=== PATIENT | male | born 1950 | race Caucasian/White ===

== ENCOUNTER 2023-06-20 08:00 | Outpatient (OUT) | payer MEDICARE, SELFPAY ==
--- NOTE | 2023-06-20 08:10 | CT_ITS ---
[address] [address] Patient Name: CHAR ALATORRE MRN: [id number] date: 1950 Sex: M Assigned Patient Location: CT Current Patient Location: CT Accession/Order Number: [id number] Exam Date: 06/20/2023 08:19 Report Date: 06/20/2023 15:13 At the request of: JUSTIN MARTINEZ Procedure: CT lung screening low-dose EXAMINATION: CT lung screening low-dose HISTORY: History Of Smoking Z87.891 COMPARISON: No relevant comparison available. TECHNIQUE: Axial, Coronal, and Sagittal images were created without the administration of IV contrast material. Dose reduction techniques were achieved by using automated exposure control and/or adjustment of mA and/or kV according to patient size and/or use of iterative reconstruction technique. FINDINGS: LUNGS: Mild paraseptal emphysema with an apical predominance. No bronchiectasis or peribronchial thickening. Linear opacities in both apices left greater than right, pleural parenchymal scarring is favored. No significant pulmonary nodule or mass PLEURA: No mass, effusion, or pneumothorax. VASCULATURE: No abnormality. STEPHANIE: No mass or pathologic adenopathy. MEDIASTINUM: No mass or pathologic adenopathy. CARDIAC: No enlargement or pericardial effusion. Heavy coronary atherosclerosis AORTA: No aortic aneurysm. Extensive atherosclerosis CHEST WALL: No mass or axillary adenopathy BONES: No bone lesion or fracture. LIMITED ABDOMEN: Surgical clips from cholecystectomy OTHER: Negative. CT/CT lung screening low-dose IMPRESSION: LUNG SCREENING: Lung-RADS Category 1 Negative. No nodules and definitely benign nodules. Continue annual screening with LDCT in 12 months. Electronically authenticated by: JOSH BLANDON Date: 06/20/2023 15:13
== END 2023-06-20 08:01 | disposition home or self-care (01) ==
LOC: CT 08:00
PROVIDERS: PCP Family Medicine; Visit Provider Family Medicine
DX: Z87.891 Personal history of nicotine dependence (principal)
CPT/HCPCS: 71271

== ENCOUNTER 2024-05-11 11:48 | Inpatient (IN) | payer MEDICARE, SELFPAY ==
[2024-05-11] VITALS (26 sets, daily range): BP systolic 122–148; BP diastolic 83–105; PULSE 88–98; TEMP 36.6–36.8; O2SAT 88–95; BMI 27.3; BMI 27.2
--- NOTE | 2024-05-11 12:14 | XR_ITS ---
The [address] [address] Patient Name: CHAR ALATORRE MRN: [id number] date: 1950 Sex: M Assigned Patient Location: ER Current Patient Location: ER Accession/Order Number: [id number] Exam Date: 05/11/2024 12:33 Report Date: 05/11/2024 14:11 At the request of: ABELARDO FIORE Procedure: XR chest 1V EXAM: XR chest 1V HISTORY: SOB COMPARISON: CTA chest 05/11/2024. Chest x-ray 01/13/2020 and earlier. TECHNIQUE: AP portable upright chest x-ray. FINDINGS: Cardiomegaly. Groundglass lung density and prominent markings with pleural effusions as seen on chest CT, correlate for mild CHF. No focal consolidation. XR/XR chest 1V IMPRESSION: Abnormal findings suggest mild CHF, see CT chest report. New from previous chest x-ray. Electronically authenticated by: ROGE KHAN Date: 05/11/2024 14:11
--- NOTE | 2024-05-11 12:14 | ECG_ITS ---
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
--- NOTE | 2024-05-11 12:14 | ED.SOB1 ---
HPI - SOB/Dyspnea General Chief Complaint: Shortness of Breath/Dyspnea Stated Complaint: sob dizziness Time Seen by Provider: 05/11/24 12:00 Source: patient Mode of arrival: walk-in Limitations: no limitations History of Present Illness HPI Narrative: 73-year-old male presents to the emergency department for shortness of breath. This appears to be an ongoing issue for the past 6 months and that he appears to have an element of COPD. However for the past 2 days its gotten worse. He does not complain of chest pain or fever. He has a cough but that is chronic. He quit smoking in 2014. He is accompanied by his who is a nurse and gives an excellent history. He gets more short of breath with exertion. Related Data Home Medications ?Medication ?Instructions ?Recorded ?Confirmed amlodipine 10 mg tablet 5 mg PO DAILY 05/11/24 05/11/24 apixaban 5 mg tablet (Eliquis) 5 mg PO BID 05/11/24 05/11/24 aspirin 81 mg capsule 81 mg PO DAILY 05/11/24 05/11/24 atorvastatin 40 mg tablet 40 mg PO DAILY 05/11/24 05/11/24 nortriptyline 25 mg capsule 25 mg PO DAILY 05/11/24 05/11/24 spironolactone 25 mg tablet 25 mg PO DAILY 05/11/24 05/11/24 Allergies Allergy/AdvReac Type Severity Reaction Status Date / Time No Known Drug Allergies Allergy Verified 05/11/24 12:03 Review of Systems ROS Narrative A ten point review of systems is negative except as noted above. Exam Narrative Exam Narrative: Nurses note and vital signs reviewed and patient is not hypoxic. General: The patient appears in no apparent distress. Patient is resting comfortably on cart. Skin: Warm, dry, no pallor noted. There is no rash noted. Head: Normocephalic, atraumatic Eye: Normal conjunctiva, no drainage Ears, Nose, Mouth, and Throat: oral mucosa is moist. Nares patent. Cardiovascular: Regular Rate and Rhythm, not tachycardic Respiratory: Patient is in no distress, no accessory muscle use, lungs are clear to auscultation, no wheezing, rales or rhonchi. Good air movement present. Back: non-tender GI: Soft and nontender Musculoskeletal: The patient has no evidence of calf tenderness, no pitting edema, symmetrical pulses noted bilaterally Neurological: A&O, normal speech Psychiatric: Cooperative Constitutional Vital Signs, click to edit/add: Last Vital Signs Temp 98.2 F 05/11/24 11:57 Pulse 90 05/11/24 14:00 Resp 17 05/11/24 14:00 BP 145/97 H 05/11/24 13:30 Pulse Ox 95 05/11/24 14:00 O2 Del Method Room Air 05/11/24 12:19 Course Vital Signs Vital signs: Vital Signs Temperature 98.2 F 05/11/24 11:57 Pulse Rate 98 H 05/11/24 11:57 Respiratory Rate 18 05/11/24 11:57 Blood Pressure 139/92 H 05/11/24 11:57 Pulse Oximetry 95 05/11/24 11:57 Oxygen Delivery Method Room Air 05/11/24 11:57 Temperature 98.2 F 05/11/24 11:57 Pulse Rate 90 05/11/24 14:00 Respiratory Rate 17 05/11/24 14:00 Blood Pressure 145/97 H 05/11/24 13:30 Pulse Oximetry 95 05/11/24 14:00 Oxygen Delivery Method Room Air 05/11/24 12:19 MDM - SOB/Dyspnea MDM Narrative Medical decision making narrative: D-dimer was slightly elevated and CTA shows no PE but shows CHF. The initial troponin was 79, repeat 76. This is likely due to his renal function. He was given IV Lasix and is being admitted. Treatment diagnosis and disposition were discussed with the patient and his . Differential Diagnosis Differential diagnosis: Likely acute exacerbation of chronic obstructive airways disease, congestive heart failure, community acquired pneumonia and pulmonary embolism Lab Data Attestation: I reviewed the patient's lab results. Labs: Lab Results 05/11/24 05/11/24 05/11/24 Range/Units 12:11 12:28 13:10 WBC 7.5 (4.0-11.0) 10^3/uL RBC 4.79 (4.70-6.10) 10^6/uL Hgb 13.0 L (14.0-18.0) g/dL Hct 39.8 L (42.0-54.0) % MCV 83.1 (80.0-94.0) fL MCH 27.1 (25.9-34.0) pg MCHC 32.7 (29.9-35.2) g/dL RDW 13.8 (11.0-15.0) % Plt Count 249 (150-450) 10^3/uL MPV 9.1 L (9.5-13.5) fL Neut % (Auto) 63.0 (43.0-75.0) % Lymph % (Auto) 24.9 (20.5-60.0) % [place] % (Auto) 10.0 (1.7-12.0) % Eos % (Auto) 0.7 L (0.9-7.0) % Baso % (Auto) 0.9 (0.2-2.0) % Neut # (Auto) 4.7 (1.4-6.5) 10^3/uL Lymph # (Auto) 1.9 (1.2-3.8) 10^3/uL [place] # (Auto) 0.8 (0.3-0.8) 10^3/uL Eos # (Auto) 0.1 (0.0-0.7) 10^3/uL Baso # (Auto) 0.1 (0.0-0.1) 10^3/uL Abs Immat Gran (auto) 0.04 H (0.00-0.03) 10^3/uL Imm/Tot Granulo (auto) 0.5 (0.0-0.5) % D-Dimer 1.55 H* (<=0.59) mg/L FEU Sodium 137 (136-145) mmol/L Potassium 4.3 (3.5-5.1) mmol/L Chloride 102 (98-107) mmol/L Carbon Dioxide 27.6 (21.0-32.0) mmol/L Anion Gap 11.7 BUN 17.0 (7.0-18.0) mg/dL Creatinine 1.88 H (0.70-1.30) mg/dL Est GFR ( Amer) 43 L (>=60) Est GFR (Non-Af Amer) 35 L (>=60) BUN/Creatinine Ratio 9.0 Glucose 113 H (74-106) mg/dL Calcium 9.9 (8.5-10.1) mg/dL Troponin I High Sens 79.5 H* 76.5 H* (4.0-76.1) pg/mL SARS-CoV-2 Ag (CV2AG) Negative (NEGATIVE) Imaging Data Chest x-ray: Radiologist's impression: ITS Impressions Chest X-Ray 05/11/24 12:14 IMPRESSION: Abnormal findings suggest mild CHF, see CT chest report. New from previous chest x-ray. Electronically authenticated by: ROGE KHAN Date: 05/11/2024 14:11 Chest CTA 05/11/24 12:56 IMPRESSION: 1. Negative for pulmonary embolus. Normal pulmonary outflow tract. No evidence of right ventricular strain.. 2. Interstitial lung density bilateral, moderate bilateral pleural effusions suggestive of edema and CHF. Correlate clinically. 3. Mildly prominent mediastinal lymph nodes appear unchanged likely incidental. 4. Moderate to severe plaque and stenosis great vessels off the arch most significant involvement left subclavian artery. Warrants follow-up imaging, consider CTA carotid study upper chest and neck to evaluate the carotid arteries and arch. 5. 1 cm left thyroid nodule which could be evaluated as an outpatient with ultrasound if felt to be indicated. Electronically authenticated by: ROGE KHAN Date: 05/11/2024 14:10 ECG Data Attestation: I personally reviewed and interpreted this ECG as follows: (EKG on my interpretation shows normal sinus rhythm with a rate of 94) Critical Care Time Critical Care Time Critical Care Time: Yes Total Critical Care Time: 35 Attestation: Due to the high probability of sudden and clinically significant deterioration in the patient's condition he/she required the highest level of my preparedness to intervene urgently I provided critical care time including documentation time, medication orders and management, reevaluation, vital sign assessment, ordering and reviewing of lab tests, ordering and reviewing of x-ray studies, and admission orders. Aggregate critical care time is 35 minutes including only time during which I was engaged in work directly related to his/her care and did not include time spent treating other patients simultaneously. Discharge Plan Discharge Chief Complaint: Shortness of Breath/Dyspnea Clinical Impression: Congestive heart failure Patient Disposition: Admitted As Inpatient Time of Disposition Decision: 14:36 Condition: Fair
[2024-05-11 12:30] LABS: Basophils Absolute Auto 0.1 10^3/uL (0.0-0.1); Basophils Percent Auto 0.9 % (0.2-2.0); Eosinophils Absolute Auto 0.1 10^3/uL (0.0-0.7); Eosinophils Percent Auto 0.7 % (0.9-7.0); Hematocrit 39.8 % (42.0-54.0); Immature Granulocytes Abs Auto 0.04 10^3/uL (0.00-0.03); Immature Granulocytes Pct Auto 0.5 % (0.0-0.5); Lymphocytes Absolute Auto 1.9 10^3/uL (1.2-3.8); Lymphocytes Percent Auto 24.9 % (20.5-60.0); Mean Corpuscular HGB Conc 32.7 g/dL (29.9-35.2); Mean Corpuscular Hemoglobin 27.1 pg (25.9-34.0); Mean Corpuscular Volume 83.1 fL (80.0-94.0); Mean Platelet Volume 9.1 fL (9.5-13.5); Monocytes Absolute Auto 0.8 10^3/uL (0.3-0.8); Neutrophils Absolute Auto 4.7 10^3/uL (1.4-6.5); Platelet Count 249 10^3/uL (150-450); Red Blood Count 4.79 10^6/uL (4.70-6.10); Red Cell Distribution Width 13.8 % (11.0-15.0); White Blood Count 7.5 10^3/uL (4.0-11.0)
[2024-05-11 12:42] LABS: Anion Gap 11.7; Calcium 9.9 mg/dL (8.5-10.1); Carbon Dioxide 27.6 mmol/L (21.0-32.0); Chloride 102 mmol/L (98-107); Estimated GFR (African America 43 (>=60); Estimated GFR (Non-African Ame 35 (>=60); Glucose 113 mg/dL (74-106); Potassium 4.3 mmol/L (3.5-5.1); Sodium 137 mmol/L (136-145)
[2024-05-11 12:47] LABS: Internal Control Within Normal Limits; SARS-CoV-2 Ag NEGATIVE (NEGATIVE)
[2024-05-11 12:51] LABS: D Dimer 1.55 mg/L FEU (<=0.59); Troponin I High Sensitivity 79.5 pg/mL (4.0-76.1)
--- NOTE | 2024-05-11 12:56 | CT_ITS ---
The [address] [address] Patient Name: CHAR ALATORRE MRN: [id number] date: 1950 Sex: M Assigned Patient Location: ER Current Patient Location: ER Accession/Order Number: [id number] Exam Date: 05/11/2024 13:17 Report Date: 05/11/2024 14:10 At the request of: ABELARDO FIORE Procedure: CT angio chest EXAM: CT angio chest HISTORY: Short of breath, elevated D-dimer clinical suspicion of pulmonary embolus. COMPARISON: Chest x-ray 05/11/[address] chest noncontrast 06/20/2023. TECHNIQUE: CTA chest PE protocol. Axial scans with multiplanar and MIP reformatted images. Individualized dose reduction used for this exam. Contrast: 100 mL Visipaque [id number] FINDINGS: Pulmonary arteries: Normal pulmonary arteries enhance without thrombus or embolus. Normal sized pulmonary artery. Lungs/pleura: Groundglass density and septal thickening consistent with interstitial process. Moderate size pleural effusion. Suspect edema from CHF, cannot exclude interstitial pneumonitis. Small amount of atelectasis right lung base adjacent to the pleural effusion. Cardiac/vascular: Mild cardiomegaly. No evidence of right ventricular enlargement. Minimal pericardial thickening or trace pericardial effusion.. Normal size ascending aorta without dissection or aneurysm. Possible aortic valve calcification. Dominant distal descending epigastric abdominal aorta. Mild aortic plaque.. Moderate to severe plaque origin right innominate artery and left common carotid artery off the arch. Severe stenosis left subclavian artery beyond the origin. These findings warrant follow-up imaging. Mediastinum: Mildly prominent lymph nodes are nonspecific anterior mediastinal lymph nodes are similar to CT 06/20/2023. Nonenhancing tissue right hilum may be reactive. No supraclavicular adenopathy. 1 cm left thyroid nodule. No axillary mass or adenopathy. No acute process upper abdomen. CT/CT angio chest IMPRESSION: 1. Negative for pulmonary embolus. Normal pulmonary outflow tract. No evidence of right ventricular strain.. 2. Interstitial lung density bilateral, moderate bilateral pleural effusions suggestive of edema and CHF. Correlate clinically. 3. Mildly prominent mediastinal lymph nodes appear unchanged likely incidental. 4. Moderate to severe plaque and stenosis great vessels off the arch most significant involvement left subclavian artery. Warrants follow-up imaging, consider CTA carotid study upper chest and neck to evaluate the carotid arteries and arch. 5. 1 cm left thyroid nodule which could be evaluated as an outpatient with ultrasound if felt to be indicated. Electronically authenticated by: ROGE KHAN Date: 05/11/2024 14:10
[2024-05-11] MEDS: 0.9 % SODIUM CHLORIDE 1,000 ML 200 ML IV (13:10)
[2024-05-11 13:41] LABS: Troponin I High Sensitivity 76.5 pg/mL (4.0-76.1)
[2024-05-11] MEDS: FUROSEMIDE 40 MG/4 ML VIAL IVP ×2 (14:39→20:22)
--- NOTE | 2024-05-11 15:55 | CA_ITS ---
Patient Name: CHAR ALATORRE MR#: [id number] : 1950 Exam Date: 05/13/2024 Ordering Doctor: DR Rajesh Aggarwal . ECHOCARDIOGRAM REPORT PROCEDURE: CA ECHO DOPPLER COMPLETE INDICATIONS: Dyspnea COMPARISON: None. DESCRIPTION: COMPLETE ECHOCARDIOGRAM Real-time transthoracic echocardiography with 2D, M-mode, spectral and color flow Doppler performed. QUALITY: Technical quality was good. LEFT VENTRICLE: Normal chamber size. Mild left ventricular hypertrophy. LV EF: Global left ventricular systolic function is moderately reduced; visually estimated ejection fraction is 35 to 40%. Diffuse hypokinesis. DIASTOLIC: Grade 2 diastolic dysfunction. ATRIAL SEPTUM: Inadequately seen LEFT ATRIUM: Mild dilatation. RIGHT ATRIUM: Normal chamber size. RIGHT VENTRICLE: Normal chamber size. Normal right ventricular systolic function. TRICUSPID VALVE: Normal mobility and thickness. No stenosis with trivial regurgitation. Mild pulmonary hypertension.RVSP 35mmHg MITRAL VALVE: Normal mobility and thickness. No evidence of mitral valve stenosis. There is no mitral annular calcification. Mild mitral regurgitation. AORTIC VALVE: Bicuspid appearance. Moderately calcified aortic valve. Moderately diminished mobility. Doppler velocity suggests mild to moderate aortic valve stenosis. DVI 0.4, MARKY 1.5cm2, Vmax 2.7m/s, Mean gradient 14mmHg. Moderate aortic regurgitation. AORTIC ROOT: Normal diameter and appearance. Mild dilatation of the ascending aorta measuring 3.7cm. PULMONIC VALVE: Normal thickness and mobility. No stenosis. Mild regurgitation. PERICARDIUM: Anterior free space; probable small effusion with clotted material. IVC: Collapses with inspirations. Normal size. CONCLUSION: 1. Global left ventricular systolic function is moderately reduced; visually estimated ejection fraction of 35 to 40% 2. Normal right ventricular size and systolic function 3. Left atrium is mildly dilated 4. Grade 2 diastolic dysfunction 5. Mild left ventricular hypertrophy 6. Mildly increased right ventricular systolic pressure; RVSP 35 mmHg 7. Mild mitral regurgitation 8. Mild to moderate aortic valve stenosis 9. Moderate aortic valve regurgitation 10. Mild pulmonic regurgitation 11. Mildly dilated ascending aorta 12. Small anterior pericardial effusion with clotted material Adult Echocardiography Procedure Report Left Ventricle LVEDD (3.7 - 5.6 cm): 4.94 cm LVESD (2.2 - 4.0 cm): 4.07 cm LVIVS thickness (0.6 - 1.2 cm): 1.11 cm LVPW thickness (0.5 - 1.0 cm): 1.18 cm e': 0.06 m/s E - e': 11.71 LVOT Max Gradient: 4.04 mm[Hg] LVOT Area (cm2): 1.00 m/s Peak Velocity (LVOT): 1.00 m/s Mean Velocity (LVOT): 0.65 m/s LVOT Diameter 2.16 cm Left Ventricular Ejection Fraction: 44.45 % Left Atrium LA Volume Index (2D A2C): 43.91 ml/m2 Left Atrium Systolic Dimension: 3.83 cm Mitral Valve MV E to A Ratio: 0.72 Mitral Valve A-Wave Peak Velocity: 1.03 m/s Mitral Valve E-Wave Peak Velocity: 0.74 m/s Right Ventricle RV Internal Diastolic Dimension: 2.75 cm Aorta AO Root Diam: 3.51 cm Ascending Ao Diam: 3.72 cm Aortic Valve AoV Area (Peak Dany): 1.49 cm2, 1.54 cm2, 0.97 cm2, 0.97 cm2 AoV Area (VTI): 1.60 cm2, 1.68 cm2 Deceleration [place]: 7.16 m/s2, 5.69 m/s2, 5.29 m/s2 Pressure Half-Time: 211.26 ms, 252.50 ms, 251.92 ms Peak Velocity(Antegrade Flow): 2.40 m/s, 2.36 m/s, 2.68 m/s, 3.82 m/s Peak Gradient(Antegrade Flow): 23.08 mm[Hg], 22.33 mm[Hg], 28.67 mm[Hg], 58.31 mm[Hg] Mean Velocity(Antegrade Flow): 1.57 m/s, 1.60 m/s, 1.77 m/s Mean Gradient(Antegrade Flow): 11.47 mm[Hg], 11.73 mm[Hg], 14.39 mm[Hg] Velocity Time Integral: 44.28 cm, 45.24 cm, 49.57 cm Tricuspid Valve Peak Velocity (Regurgitant Flow): 2.84 m/s, 2.80 m/s Pulmonic Valve Mean Gradient: 1.85 mm[Hg] Mean Velocity: 0.62 m/s Peak Velocity: 1.05 m/s, 1.03 m/s Peak Gradient: 4.26 mm[Hg], 4.39 mm[Hg] Right Atrium Right Atrium Systolic Pressure: 31.39 ml, 31.39 ml Dictated by: Alejandro Moncada M.D. on 05/13/2024 at 14:35 Approved by: Alejandro Moncada M.D. on 05/13/2024 at 14:42
[2024-05-11 16:27] LABS: Magnesium 1.7 mg/dL (1.8-2.4)
[2024-05-11 16:43] LABS: Thyroid Stimulating Hormone 2.625 uIU/mL (0.358-3.740)
[2024-05-11 16:48] LABS: Troponin I High Sensitivity 82.5 pg/mL (4.0-76.1)
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
[2024-05-11] MEDS: ISOSORBIDE MONONITRATE 30 MG TAB.ER.24H PO (20:22)
[2024-05-11] MEDS: MAGNESIUM OXIDE 400 MG TABLET PO ×2 (20:22→22:28)
[2024-05-11] MEDS: APIXABAN 5 MG TABLET PO (20:22)
[2024-05-11] MEDS: HYOSCYAMINE SULFATE 0.125 MG TAB.SUBL SL (20:22)
[2024-05-11 20:24] LABS: Glucometer 157 mg/dL (74-106)
[2024-05-11] MEDS: IPRATROPIUM/ALBUTEROL SULFATE 3 ML AMPUL.NEB IH (21:02)
[2024-05-11] MEDS: BUDESONIDE 0.5 MG/2 ML AMPULE NEB IH (21:02)
[2024-05-12] VITALS (9 sets, daily range): BP systolic 95–124; BP diastolic 62–79; PULSE 85–97; TEMP 36.4–37.1; O2SAT 90–95
[2024-05-12] MEDS: ACETAMINOPHEN 500 MG TABLET 1000 MG PO ×2 (04:37→12:13)
[2024-05-12] MEDS: IPRATROPIUM/ALBUTEROL SULFATE 3 ML AMPUL.NEB IH ×2 (04:39→11:10)
[2024-05-12 07:57] LABS: Basophils Percent Auto 0.5 % (0.2-2.0); Eosinophils Absolute Auto 0.1 10^3/uL (0.0-0.7); Eosinophils Percent Auto 0.8 % (0.9-7.0); Hematocrit 34.3 % (42.0-54.0); Hemoglobin 11.3 g/dL (14.0-18.0); Immature Granulocytes Abs Auto 0.03 10^3/uL (0.00-0.03); Immature Granulocytes Pct Auto 0.5 % (0.0-0.5); Lymphocytes Absolute Auto 1.3 10^3/uL (1.2-3.8); Lymphocytes Percent Auto 22.6 % (20.5-60.0); Mean Corpuscular HGB Conc 32.9 g/dL (29.9-35.2); Mean Corpuscular Hemoglobin 27.3 pg (25.9-34.0); Mean Corpuscular Volume 82.9 fL (80.0-94.0); Mean Platelet Volume 9.1 fL (9.5-13.5); Monocytes Absolute Auto 0.7 10^3/uL (0.3-0.8); Monocytes Percent Auto 12.5 % (1.7-12.0); Neutrophils Absolute Auto 3.7 10^3/uL (1.4-6.5); Neutrophils Percent Auto 63.1 % (43.0-75.0); Platelet Count 205 10^3/uL (150-450); Red Blood Count 4.14 10^6/uL (4.70-6.10); Red Cell Distribution Width 13.8 % (11.0-15.0); White Blood Count 5.9 10^3/uL (4.0-11.0)
[2024-05-12 08:15] LABS: Alanine Aminotransferase 14 U/L (16-63); Albumin Globulin Ratio 0.7; Albumin Level 2.7 g/dL (3.4-5.0); Alkaline Phosphatase 119 U/L (46-116); Anion Gap 12.7; Aspartate Amino Transferase 18 U/L (15-37); BUN Creatinine Ratio 9.5; Bilirubin Total 0.8 mg/dL (0.2-1.0); Calcium 9.2 mg/dL (8.5-10.1); Carbon Dioxide 28.1 mmol/L (21.0-32.0); Chloride 102 mmol/L (98-107); Estimated GFR (African America 36 (>=60); Estimated GFR (Non-African Ame 29 (>=60); Globulin 3.7 g/dL; Glucose 111 mg/dL (74-106); Potassium 3.8 mmol/L (3.5-5.1); Sodium 139 mmol/L (136-145); Total Protein 6.4 g/dL (6.4-8.2); Troponin I High Sensitivity 75.7 pg/mL (4.0-76.1)
[2024-05-12] MEDS: SPIRONOLACTONE 25 MG TABLET PO (08:51)
[2024-05-12] MEDS: ISOSORBIDE MONONITRATE 30 MG TAB.ER.24H PO (08:51)
[2024-05-12] MEDS: ASPIRIN 81 MG TABLET.DR PO (08:51)
[2024-05-12] MEDS: ATORVASTATIN CALCIUM 40 MG TABLET PO (08:51)
[2024-05-12] MEDS: CHOLECALCIFEROL (VITAMIN D3) 25 MCG/1,000 UNITS TABLET 50 MCG PO (08:51)
[2024-05-12] MEDS: AMLODIPINE BESYLATE 5 MG TABLET PO (08:51)
[2024-05-12] MEDS: MAGNESIUM OXIDE 400 MG TABLET PO ×2 (08:51→21:04)
[2024-05-12] MEDS: APIXABAN 5 MG TABLET PO ×2 (08:51→21:04)
--- NOTE | 2024-05-12 11:59 | XR_ITS ---
The [address] [address] Patient Name: CHAR ALATORRE MRN: [id number] date: 1950 Sex: M Assigned Patient Location: [place] Current Patient Location: [place] Accession/Order Number: [id number] Exam Date: 05/12/2024 12:50 Report Date: 05/13/2024 06:55 At the request of: SHAIKH RAUL Procedure: XR chest 1V EXAMINATION: XR chest 1V HISTORY: CHF COMPARISON: XR chest 05/11/2024 FINDINGS: LUNGS: No significant pulmonary parenchymal abnormalities. VASCULATURE: No increased pulmonary vasculature. PLEURA: No pneumothorax, effusion, or pleural thickening. CARDIAC: No cardiomegaly or cardiac silhouette abnormality. MEDIASTINUM: No visible mass or adenopathy. BONES: No fracture or visible bone lesion. OTHER: Negative. XR/XR chest 1V IMPRESSION: 1. No acute cardiac pulmonary process. Clearing of previously seen infiltrates. Electronically authenticated by: ARTI MALCOLM Date: 05/13/2024 06:55
--- NOTE | 2024-05-12 12:00 | P.IMPN_ITS ---
Progress Note: A&P Assessment and Plan (1) Congestive heart failure: Assessment and Plan: Most recent ECHO 01/06 - mild diastolic dysfunction. Repeat ECHO ordered. Started on lasix 40 q12, still volume overload. Monitor I/O, daily weight. Qualifiers: Heart failure type: diastolic Heart failure chronicity: acute on chronic Qualified Code(s): I50.33 - Acute on chronic diastolic (congestive) heart failure (2) Hypertension: Assessment and Plan: At goal. C/w amlodipine. Qualifiers: Hypertension type: primary hypertension Qualified Code(s): I10 - Essential (primary) hypertension (3) COPD (chronic obstructive pulmonary disease): Assessment and Plan: C/w kirstin schreiber as needed Qualifiers: COPD type: unspecified COPD Qualified Code(s): J44.9 - Chronic obstructive pulmonary disease, unspecified (4) PVD (peripheral vascular disease): Assessment and Plan: C/w ASA, eliquis. C/w statin (5) CKD (chronic kidney disease) stage 4, GFR 15-29 ml/min: Assessment and Plan: Serum cr at baseline. Monitor. (6) High cholesterol: Assessment and Plan: C/w lipitor. Internal Medicine - PN: Subj Subjective Interval history: Seen and examined. Feels better but still has considerable exertional shortness of breath. Good UO on lasix. Exam Constitutional Vital Signs, click to edit/add: Last Vital Signs Temp 97.9 F 05/12/24 08:00 Pulse 85 05/12/24 08:00 Resp 18 05/12/24 11:12 BP 124/79 05/12/24 08:00 Pulse Ox 91 L 05/12/24 08:00 O2 Del Method Room Air 05/12/24 11:12 Documenting provider has reviewed patient's vital signs: yes Common normals: no apparent distress and oriented x3 General appearance: cooperative Respiratory Common normals: normal respiratory effort and clear to auscultation bilaterally Effort & inspection: able to speak in complete sentences Auscultation: clear to auscultation bilaterally Cardio Common normals: regular rate, S1 normal heart sound and S2 normal heart sound Rate: regular rate Heart sounds: S1 normal and S2 normal Extremity Common normals: no clubbing, cyanosis or edema Neuro Common normals: oriented x3, moves all extremities and no focal motor deficits Psych Common normals: mental status grossly normal, denies hallucinations, denies homicidal ideation and denies suicidal ideation Internal Medicine - PN: Obj Da Labs Labs: Laboratory Results - last 24 hr 05/11/24 05/11/24 05/11/24 12:11 12:28 13:10 WBC 7.5 RBC 4.79 Hgb 13.0 L Hct 39.8 L MCV 83.1 MCH 27.1 MCHC 32.7 RDW 13.8 Plt Count 249 MPV 9.1 L Neut % (Auto) 63.0 Lymph % (Auto) 24.9 [place] % (Auto) 10.0 Eos % (Auto) 0.7 L Baso % (Auto) 0.9 Neut # (Auto) 4.7 Lymph # (Auto) 1.9 [place] # (Auto) 0.8 Eos # (Auto) 0.1 Baso # (Auto) 0.1 Abs Immat Gran (auto) 0.04 H Imm/Tot Granulo (auto) 0.5 D-Dimer 1.55 H* Sodium 137 Potassium 4.3 Chloride 102 Carbon Dioxide 27.6 Anion Gap 11.7 BUN 17.0 Creatinine 1.88 H Est GFR ( Amer) 43 L Est GFR (Non-Af Amer) 35 L BUN/Creatinine Ratio 9.0 Glucose 113 H Calcium 9.9 Magnesium Total Bilirubin AST ALT Alkaline Phosphatase Troponin I High Sens 79.5 H* 76.5 H* NT-Pro-B Natriuret Pep Total Protein Albumin Globulin Albumin/Globulin Ratio TSH SARS-CoV-2 Ag (CV2AG) Negative POC Glucose 05/11/24 05/11/24 05/11/24 16:10 19:53 20:21 WBC RBC Hgb Hct MCV MCH MCHC RDW Plt Count MPV Neut % (Auto) Lymph % (Auto) [place] % (Auto) Eos % (Auto) Baso % (Auto) Neut # (Auto) Lymph # (Auto) [place] # (Auto) Eos # (Auto) Baso # (Auto) Abs Immat Gran (auto) Imm/Tot Granulo (auto) D-Dimer Sodium Potassium Chloride Carbon Dioxide Anion Gap BUN Creatinine Est GFR ( Amer) Est GFR (Non-Af Amer) BUN/Creatinine Ratio Glucose Calcium Magnesium 1.7 L Total Bilirubin AST ALT Alkaline Phosphatase Troponin I High Sens 82.5 H* 81.0 H* NT-Pro-B Natriuret Pep 9902.0 H* Total Protein Albumin Globulin Albumin/Globulin Ratio TSH 2.625 SARS-CoV-2 Ag (CV2AG) POC Glucose 157 H 05/12/24 07:30 WBC 5.9 RBC 4.14 L Hgb 11.3 L Hct 34.3 L MCV 82.9 MCH 27.3 MCHC 32.9 RDW 13.8 Plt Count 205 MPV 9.1 L Neut % (Auto) 63.1 Lymph % (Auto) 22.6 [place] % (Auto) 12.5 H Eos % (Auto) 0.8 L Baso % (Auto) 0.5 Neut # (Auto) 3.7 Lymph # (Auto) 1.3 [place] # (Auto) 0.7 Eos # (Auto) 0.1 Baso # (Auto) 0.0 Abs Immat Gran (auto) 0.03 Imm/Tot Granulo (auto) 0.5 D-Dimer Sodium 139 Potassium 3.8 Chloride 102 Carbon Dioxide 28.1 Anion Gap 12.7 BUN 21.0 H Creatinine 2.22 H Est GFR ( Amer) 36 L Est GFR (Non-Af Amer) 29 L BUN/Creatinine Ratio 9.5 Glucose 111 H Calcium 9.2 Magnesium 2.0 Total Bilirubin 0.8 AST 18 ALT 14 L Alkaline Phosphatase 119 H Troponin I High Sens 75.7 NT-Pro-B Natriuret Pep 8420.0 H* Total Protein 6.4 Albumin 2.7 L Globulin 3.7 Albumin/Globulin Ratio 0.7 TSH SARS-CoV-2 Ag (CV2AG) POC Glucose
[2024-05-12] MEDS: FUROSEMIDE 40 MG/4 ML VIAL IVP (12:13)
[2024-05-12] MEDS: NORTRIPTYLINE HCL 25 MG CAPSULE 50 MG PO (21:04)
[2024-05-13] VITALS (7 sets, daily range): BP systolic 118–135; BP diastolic 74–83; PULSE 87–100; TEMP 36.7–37; O2SAT 90–93
[2024-05-13] MEDS: FUROSEMIDE 40 MG/4 ML VIAL IVP ×2 (04:34→15:28)
[2024-05-13 04:50] LABS: Bilirubin Urine NEGATIVE (NEGATIVE); Blood Urine NEGATIVE (NEGATIVE); Clarity Urine CLEAR (CLEAR); Color Urine LT. YELLOW (YELLOW); Glucose Urine UA NEGATIVE (NEGATIVE); Ketones Urine NEGATIVE (NEGATIVE); Leukocyte Esterase Urine NEGATIVE (NEGATIVE); Nitrite Urine NEGATIVE (NEGATIVE); Protein Urine >=300 mg/dL (NEG/TRACE); Specific Gravity Urine 1.025 (1.005-1.025)
[2024-05-13 04:58] LABS: Bacteria Urine NONE SEEN #/HPF (NONE SEEN); Cast Seen? NONE SEEN #/LPF (NONE SEEN); Crystals Seen? None Seen #/HPF (None Seen); Mucus Urine NONE SEEN (NONE SEEN); RBC Urine 0-2 #/HPF (0-2); Squamous Epithelial Cell Urine NONE SEEN #/LPF (NONE/RARE); Urine Culture Indicated ALREADY ORDERED; WBC Urine NONE SEEN #/HPF (NONE SEEN)
[2024-05-13 06:13] LABS: Basophils Absolute Auto 0.1 10^3/uL (0.0-0.1); Eosinophils Absolute Auto 0.1 10^3/uL (0.0-0.7); Eosinophils Percent Auto 1.7 % (0.9-7.0); Hematocrit 38.6 % (42.0-54.0); Hemoglobin 12.4 g/dL (14.0-18.0); Immature Granulocytes Abs Auto 0.02 10^3/uL (0.00-0.03); Immature Granulocytes Pct Auto 0.3 % (0.0-0.5); Lymphocytes Absolute Auto 1.5 10^3/uL (1.2-3.8); Lymphocytes Percent Auto 24.3 % (20.5-60.0); Mean Corpuscular HGB Conc 32.1 g/dL (29.9-35.2); Mean Corpuscular Hemoglobin 27.3 pg (25.9-34.0); Mean Corpuscular Volume 84.8 fL (80.0-94.0); Mean Platelet Volume 9.2 fL (9.5-13.5); Monocytes Absolute Auto 0.7 10^3/uL (0.3-0.8); Monocytes Percent Auto 11.4 % (1.7-12.0); Neutrophils Absolute Auto 3.9 10^3/uL (1.4-6.5); Neutrophils Percent Auto 61.3 % (43.0-75.0); Platelet Count 210 10^3/uL (150-450); Red Blood Count 4.55 10^6/uL (4.70-6.10); Red Cell Distribution Width 13.7 % (11.0-15.0); White Blood Count 6.3 10^3/uL (4.0-11.0)
[2024-05-13 06:33] LABS: Magnesium 2.2 mg/dL (1.8-2.4)
[2024-05-13 06:35] LABS: Alanine Aminotransferase 15 U/L (16-63); Albumin Globulin Ratio 0.8; Albumin Level 3.1 g/dL (3.4-5.0); Alkaline Phosphatase 129 U/L (46-116); Aspartate Amino Transferase 21 U/L (15-37); BUN Creatinine Ratio 10.1; Bilirubin Total 0.9 mg/dL (0.2-1.0); Calcium 9.8 mg/dL (8.5-10.1); Carbon Dioxide 28.4 mmol/L (21.0-32.0); Chloride 100 mmol/L (98-107); Estimated GFR (African America 41 (>=60); Estimated GFR (Non-African Ame 33 (>=60); Glucose 125 mg/dL (74-106); Potassium 3.4 mmol/L (3.5-5.1); Sodium 137 mmol/L (136-145); Total Protein 7.1 g/dL (6.4-8.2)
--- NOTE | 2024-05-13 07:00 | XR_ITS ---
The [address] [address] Patient Name: CHAR ALATORRE MRN: [id number] date: 1950 Sex: M Assigned Patient Location: MS Current Patient Location: MS Accession/Order Number: [id number] Exam Date: 05/13/2024 04:55 Report Date: 05/13/2024 07:32 At the request of: SHAIKH RAUL Procedure: XR chest 1V EXAMINATION: XR chest 1V HISTORY: chf COMPARISON: XR chest 05/12/2024 FINDINGS: LUNGS: No significant pulmonary parenchymal abnormalities. VASCULATURE: No increased pulmonary vasculature. PLEURA: No pneumothorax, effusion, or pleural thickening. CARDIAC: No cardiomegaly or cardiac silhouette abnormality. MEDIASTINUM: No visible mass or adenopathy. BONES: No fracture or visible bone lesion. OTHER: Negative. XR/XR chest 1V IMPRESSION: 1. No acute cardiopulmonary process. Stable chest. Electronically authenticated by: ARTI MALCOLM Date: 05/13/2024 07:32
[2024-05-13] MEDS: POTASSIUM CHLORIDE 10 MEQ ER TABLET 40 MEQ PO (08:49)
[2024-05-13] MEDS: CHOLECALCIFEROL (VITAMIN D3) 25 MCG/1,000 UNITS TABLET 50 MCG PO (08:49)
[2024-05-13] MEDS: ISOSORBIDE MONONITRATE 30 MG TAB.ER.24H PO (08:49)
[2024-05-13] MEDS: ASPIRIN 81 MG TABLET.DR PO (08:50)
[2024-05-13] MEDS: ATORVASTATIN CALCIUM 40 MG TABLET PO (08:50)
[2024-05-13] MEDS: AMLODIPINE BESYLATE 5 MG TABLET PO (08:50)
[2024-05-13] MEDS: MAGNESIUM OXIDE 400 MG TABLET PO (08:50)
[2024-05-13] MEDS: APIXABAN 5 MG TABLET PO (08:50)
[2024-05-13] MEDS: SPIRONOLACTONE 25 MG TABLET PO (08:50)
--- NOTE | 2024-05-13 10:34 | CM.NOTE ---
Rounds made with Dr. Neves. Echo ordered. Dr. Neves explains CHF and need to watch salt intake, weigh daily, etc. Mr. Shearer verbalizes understanding.
--- NOTE | 2024-05-13 11:27 | SWNOTE1 ---
SW met with pt to discuss dc needs. Pt lives at home with his . Pt's , daughter, and grandson in room during assessment. Pt is independent at home and has no anticipated discharge needs at this time. SW to follow as needed. Important Message from Medicare reviewed and discussed with patient. Pt. verbalized understanding and signed the form. Original given to patient and copy placed in patient?s chart.
--- NOTE | 2024-05-13 11:46 | SWNOTE1 ---
SW reviewed therapy notes and recommendations were home with family.
--- NOTE | 2024-05-13 16:59 | NUTR.NU ---
Pt was admitted to [facility] 05/11/24 w/dx CHF, h/o CKD-Stage 4, PVD, COPD, HLD, HTN. PO intakes of Heart Healthy diet are consistently 100% and appear to meet his estimated nutrient requirements. Abnormal labs support diagnoses. No nutritional recommendations at this time; continue current dietary interventions and follow PRN.
--- NOTE | 2024-05-13 23:37 | P.DS_ITS ---
DS: Providers Provider Date of admission: 05/11/24 15:00 Primary care physician: JUSTIN OCHOA Admitting clinician: Rajesh Aggarwal Attending physician on admission: Rajesh Aggarwal Consults: 05/11/24 15:49 Occupational Therapy Eval and Treat Routine Reason for consultation: Only if needed for Rehab Has provider been notified: No Physical Therapy Eval and Treat Routine Reason for consultation: Eval and Treat Has provider been notified: No Attending physician on discharge: Shaikh Pura Discharging clinician: Shaikh Pura Anticipated date of discharge: 05/13/24 DS: Diagnosis Discharge Diagnosis (1) Congestive heart failure: Qualifiers: Heart failure chronicity: acute on chronic Heart failure type: combined systolic and diastolic Qualified Code(s): I50.43 - Acute on chronic combined systolic (congestive) and diastolic (congestive) heart failure (2) Hypertension: Qualifiers: Hypertension type: primary hypertension Qualified Code(s): I10 - Essential (primary) hypertension (3) COPD (chronic obstructive pulmonary disease): Qualifiers: COPD type: unspecified COPD Qualified Code(s): J44.9 - Chronic obstructive pulmonary disease, unspecified (4) PVD (peripheral vascular disease): (5) CKD (chronic kidney disease) stage 4, GFR 15-29 ml/min: (6) High cholesterol: DS: Summary Hospital Course Hospital Course: Patient admitted for worsening SOB, olvin on exertion and was admitted for acute on chronic diastolic HF. He was diuresed with IV lasix, with close monitoring of his renal function, serum electrolytes. He improved clinically throughout the course of admission was more or less euvolemic on exam on day of discharge. His ECHO revealed new systolic dysfunction with LVEF of 40%. Pt was started on toprol and discharged on low dose lasix daily to maintain euvolemia. He will benefit from addition of further GDMT but this needs to carefully tailored and titrated as outpatient. Patient will also benefit from outpatient ischemic work up considering his hx of vascular disease, and newly reduced LVEF. Patient was instructed to f/u with PCP and cardiology as outpatient. Status at Discharge Functional status at discharge: independent ambulation Overall status at discharge: patient is back to baseline Time Spent with Patient Time attestation: Total time spent providing and/or coordinating discharge services: Time spent: greater than 30 minutes Exam Constitutional Vital Signs, click to edit/add: Last Vital Signs Temp 98.6 F 05/13/24 15:13 Pulse 91 H 05/13/24 15:13 Resp 16 05/13/24 15:13 BP 129/74 05/13/24 15:28 Pulse Ox 92 L 05/13/24 15:13 O2 Del Method Room Air 05/13/24 15:13 Documenting provider has reviewed patient's vital signs: yes Common normals: no apparent distress and oriented x3 General appearance: cooperative Respiratory Common normals: normal respiratory effort and clear to auscultation bilaterally Effort & inspection: able to speak in complete sentences Auscultation: clear to auscultation bilaterally Cardio Common normals: regular rate, S1 normal heart sound and S2 normal heart sound Rate: regular rate Heart sounds: S1 normal and S2 normal Extremity Common normals: no clubbing, cyanosis or edema Neuro Common normals: oriented x3, moves all extremities and no focal motor deficits Psych Common normals: mental status grossly normal, denies hallucinations, denies homicidal ideation and denies suicidal ideation DS: Data Data Completed and Pending Labs on day of discharge: Labs from last 24 hours 05/13/24 05/13/24 05:57 04:37 WBC 6.3 RBC 4.55 L Hgb 12.4 L Hct 38.6 L MCV 84.8 MCH 27.3 MCHC 32.1 RDW 13.7 Plt Count 210 MPV 9.2 L Neut % (Auto) 61.3 Lymph % (Auto) 24.3 [place] % (Auto) 11.4 Eos % (Auto) 1.7 Baso % (Auto) 1.0 Neut # (Auto) 3.9 Lymph # (Auto) 1.5 [place] # (Auto) 0.7 Eos # (Auto) 0.1 Baso # (Auto) 0.1 Abs Immat Gran (auto) 0.02 Imm/Tot Granulo (auto) 0.3 Sodium 137 Potassium 3.4 L Chloride 100 Carbon Dioxide 28.4 Anion Gap 12.0 BUN 20.0 H Creatinine 1.98 H Est GFR ( Amer) 41 L Est GFR (Non-Af Amer) 33 L BUN/Creatinine Ratio 10.1 Glucose 125 H Calcium 9.8 Magnesium 2.2 Total Bilirubin 0.9 AST 21 ALT 15 L Alkaline Phosphatase 129 H NT-Pro-B Natriuret Pep 6483.0 H* Total Protein 7.1 Albumin 3.1 L Globulin 4.0 Albumin/Globulin Ratio 0.8 Urine Color Lt. yellow Urine Clarity Clear Urine pH 6.0 Ur Specific [place] 1.025 Urine Protein >=300 A Urine Glucose (UA) Negative Urine Ketones Negative Urine Occult Blood Negative Urine Nitrite Negative Urine Bilirubin Negative Urine Urobilinogen 1.0 Ur Leukocyte Esterase Negative Urine RBC 0-2 Urine WBC None seen Ur Squamous Epith Cells None seen Urine Crystals None seen Urine Bacteria None seen Urine Casts None seen Urine Mucus None seen Ur Culture Indicated? Already ordered Discharge Plan Discharge Disposition: Home, Self-Care Condition: Fair Discharge Medications: New furosemide [Lasix] 20 mg tablet 20 mg PO DAILY Qty: 30 0RF metoprolol succinate [Toprol XL] 25 mg tablet extended release 24 hr 25 mg PO DAILY Qty: 30 0RF Continued amlodipine 10 mg tablet 5 mg PO DAILY Eliquis 5 mg tablet 5 mg PO BID atorvastatin 40 mg tablet 40 mg PO DAILY spironolactone 25 mg tablet 25 mg PO DAILY aspirin 81 mg capsule 81 mg PO DAILY nortriptyline 25 mg capsule 50 mg PO .QHS ergocalciferol (vitamin D2) 1,000 unit capsule 50 mcg PO DAILY Breztri Aerosphere 160-9-4.8 mcg/actuation HFA aerosol inhaler 1 inh inhalation BID Activity: increase activity as tolerated Diet: advance to your usual diet Print Language: Korean Patient Instructions: Metoprolol (By mouth), Furosemide (By mouth), Heart Failure (DC) Forms: Portal Instructions Follow Up Appointments: Follow up with Cardiology in within two weeks [facility] [place] [phone] F/u with Dr Ochoa @4:00 [place] office Discharge Date/Time: 05/13/24 16:40
--- NOTE | 2024-05-14 13:49 | CM.DCFOLLOWU ---
Person spoke with: patient How are you feeling? well How is your pain? none Did you understand your discharge instructions? yes Do you have any questions about your discharge instructions? no Were you given any prescriptions at discharge? yes Were you able to get your prescriptions filled? yes Do you understand how to take your medications as ordered? yes Do you have any questions about your follow up appointment and do you plan to keep your follow up appointment? no questions, follow ups reviewed with patient Is there anything else that you would like to discuss? no Questions/Comments/Concerns/Other: none
== END 2024-05-13 16:40 | disposition home or self-care (01) | DRG 291 ==
LOC: ER 14:36 → MS 15:06
PROVIDERS: Family Medicine; Admitting Provider Internal Medicine; Emergency Provider Emergency Medicine; PCP Family Medicine; Visit Provider Internal Medicine
DX: I13.0 Hypertensive heart and chronic kidney disease with heart failure and stage 1 through stage 4 chronic kidney disease, or unspecified chronic kidney disease (principal); I50.43 Acute on chronic combined systolic (congestive) and diastolic (congestive) heart failure; N18.4 Chronic kidney disease, stage 4 (severe); J44.9 Chronic obstructive pulmonary disease, unspecified; E78.00 Pure hypercholesterolemia, unspecified; I73.9 Peripheral vascular disease, unspecified; R06.03 Acute respiratory distress; R79.89 Other specified abnormal findings of blood chemistry; D63.1 Anemia in chronic kidney disease; E83.42 Hypomagnesemia; I27.20 Pulmonary hypertension, unspecified; R59.1 Generalized enlarged lymph nodes; R79.1 Abnormal coagulation profile; I70.0 Atherosclerosis of aorta; E04.1 Nontoxic single thyroid nodule; N26.1 Atrophy of kidney (terminal); Z79.82 Long term (current) use of aspirin; Z79.01 Long term (current) use of anticoagulants; Z79.899 Other long term (current) drug therapy; Z20.822 Contact with and (suspected) exposure to COVID-19; Z86.73 Personal history of transient ischemic attack (TIA), and cerebral infarction without residual deficits; Z87.891 Personal history of nicotine dependence; Z98.62 Peripheral vascular angioplasty status; Z98.890 Other specified postprocedural states; Z98.49 Cataract extraction status, unspecified eye; Z90.49 Acquired absence of other specified parts of digestive tract
CPT/HCPCS: 36415; 71045; 71275; 80048; 80053; 81001; 83735; 83880; 84443; 84484; 85025; 85378; 87086; 87811; 93005; 93306; 93356; 94640; 94667; 94668; 94761; 96374; 96376; 97165; 99285; J1940; Q9966

== ENCOUNTER 2024-06-03 10:06 | Outpatient (OUT) | payer MEDICARE, SELFPAY ==
[2024-06-03 10:42] LABS: Hematocrit 33.5 % (42.0-54.0); Hemoglobin 10.6 g/dL (14.0-18.0); Mean Corpuscular HGB Conc 31.6 g/dL (29.9-35.2); Mean Corpuscular Hemoglobin 26.4 pg (25.9-34.0); Mean Corpuscular Volume 83.3 fL (80.0-94.0); Platelet Count 222 10^3/uL (150-450); Red Blood Count 4.02 10^6/uL (4.70-6.10); Red Cell Distribution Width 14.5 % (11.0-15.0); White Blood Count 5.9 10^3/uL (4.0-11.0)
[2024-06-03 10:45] LABS: Bilirubin Urine NEGATIVE (NEGATIVE); Blood Urine NEGATIVE (NEGATIVE); Clarity Urine CLEAR (CLEAR); Color Urine YELLOW (YELLOW); Glucose Urine UA NEGATIVE (NEGATIVE); Ketones Urine NEGATIVE (NEGATIVE); Leukocyte Esterase Urine NEGATIVE (NEGATIVE); Nitrite Urine NEGATIVE (NEGATIVE); Protein Urine >=300 mg/dL (NEG/TRACE); Specific Gravity Urine 1.025 (1.005-1.025)
[2024-06-03 10:53] LABS: Bacteria Urine NONE SEEN #/HPF (NONE SEEN); Cast Seen? SEEN #/LPF (NONE SEEN); Crystals Seen? None Seen #/HPF (None Seen); Hyaline Casts Urine FEW; Mucus Urine SMALL (NONE SEEN); RBC Urine 0-2 #/HPF (0-2); Squamous Epithelial Cell Urine RARE #/LPF (NONE/RARE)
[2024-06-03 11:11] LABS: Estimated Average Glucose 94 mg/dL; Glycohemoglobin A1C 4.9 % (4.5-6.2)
[2024-06-03 12:09] LABS: Creatinine Urine Random 145.44 mg/dL (20.00-300.00); Protein Creatinine Ratio Urine 2.65; Total Protein Urine Random 385.3 mg/dL (<=11.9)
[2024-06-03 12:23] LABS: Anion Gap 8.2; Calcium 9.9 mg/dL (8.5-10.1); Carbon Dioxide 31.9 mmol/L (21.0-32.0); Chloride 101 mmol/L (98-107); Estimated GFR (African America 40 (>=60); Estimated GFR (Non-African Ame 33 (>=60); Glucose 106 mg/dL (74-106); Magnesium 1.8 mg/dL (1.8-2.4); Phosphorus 3.1 mg/dL (2.6-4.7); Potassium 4.1 mmol/L (3.5-5.1); Sodium 137 mmol/L (136-145); Uric Acid 7.1 mg/dL (3.5-7.2)
[2024-06-04 09:12] LABS: PTH, Intact 53 pg/mL (15-65)
== END 2024-06-03 10:07 | disposition home or self-care (01) ==
LOC: LAB 10:07
PROVIDERS: PCP Family Medicine; Visit Provider Internal Medicine
DX: R81 Glycosuria (principal); E87.6 Hypokalemia; R80.9 Proteinuria, unspecified; N26.1 Atrophy of kidney (terminal); I12.9 Hypertensive chronic kidney disease with stage 1 through stage 4 chronic kidney disease, or unspecified chronic kidney disease; E21.3 Hyperparathyroidism, unspecified
CPT/HCPCS: 36415; 80069; 81001; 82306; 82570; 83036; 83735; 83970; 84156; 84550; 85027

== ENCOUNTER 2024-07-10 20:54 | Outpatient (OUT) | payer MEDICARE, SELFPAY ==
--- OUTSIDE RECORDS SUMMARY | 2024-07-10 20:57 | XMS_ITS | CCD ---
Author Organization [facility]iniSyva Care Team Providers Care Shingle Catcher Name Role Phone JAUN, DR ANDERSON Primary Care Unavailable REQUEST, DR HILL LISTED Admitting Unavaila ble REQUEST, DR HILL LISTED Attending Unavaila ble REQUEST, DR HILL LISTED Consulting Unavaila ble JUAN, DR ANDERSON Primary Care Unavailable REQUEST, NONE LISTED Admitting Unavaila ble REQUEST, DR HILL LISTED Attending Unavaila ble REQUEST, DR HILL LISTED Consulting Unavaila ble VILLASENOR, DR CHAR Majano Attending Unavailable VILLASENOR, DR CHAR Majano Admitting Unavailable VILLASENOR, DR CHAR Majano Consulting Unavailable JUAN, DR ANDERSON Primary Care Unavailable SaidLoren Consulting Unavailable JUAN, DR ANDERSON Primary Care Unavailable JUAN, DR ANDERSON Admitting Unavailable JUAN, DR ANDERSON Attending Unavailable JUAN, DR ANDERSON Consulting Unavailable RAY, AHMAD Attending Unavailable RAY, AHMAD Consulting Unavailable JUAN, DR ANDERSON Primary Care Unavailable RAY, AHMAJudy Admitting Unavailable RAY, AHMAD Admitting Unavailable ZIEBER, DR ARTI Majano Consulting Unavailable JUAN, DR ANDERSON Primary Care Unavailable RAY, AHMAD Attending Unavailable RAY, AHMAD Consulting Unavailable Magy Cummings Unavailable Juanita Martinez Unavailable Unavailable Unavailable Rashaad Stephens II Referring Unav ailable Kat HOFFMANN, Rashaad Man Attending Unav ailable Juanita Martinez Primary Care Unavailable MD Juanita Martinez Primary Care Provider [phone] MD Magy Cummings Attending Provider [phone] Magy Cummings Admitting Unavailable Juanita Martinez Primary Care Unavailable Magy Cummings Attending Unavailable Magy Cummings Admitting Unavailable Juanita Martinez Primary Care Unavailable Magy Cummings Attending Unavailable Magy Cummings Admitting Unavailable Juanita Martinez Primary Care Unavailable Magy Cummings Attending Unavailable Juanita Martinez Primary Care Unavailable Magy Cummings Admitting Unavailable Magy Cummings Attending Unavailable JUANITA MARTINEZ Attending Unavailable JUANITA MARTINEZ Attending Unavailable JUANITA MARTINEZ Referring Unavailable JUANITA MARTINEZ Attending Unavailable JUANITA MARTINEZ Attending Unavailable Medications Current Medications Medication Drug Class(es) Dates Sig (Normalized) Sig (Original) apixaban 5 mg oral tablet (8 sources) Factor Xa Inhibitor Start: 01-25-2024 take 1 tablet by mouth twice daily Apixaban (Eliquis) 5 mg tablet Active 5 MG PO Twice daily January 25, 2024 12:00am atorvastatin 40 mg oral tablet (15 sources) HMG-CoA Reductase Inhibitor Start: 01-25-2024 End: 02-22-2024 take 40 mg by mouth once daily Atorvastatin Active 40 MG PO Daily February 22, 2024 11:26am Start: 07-05-2021 take 1 tablet by kaylene th once daily Atorvastatin Calcium 10 MG Oral Tablet take 1 tablet by mouth once daily Quantity: 90 Refills: 3 Ordered: 01-Jun-2022 Rashaad Stephens MD Start : 05-Jul-2021 Active take 1 tablet by kaylene th every twenty-four hours Atorvastatin Calcium 40 MG 1 tablet Orally Once a day Active carvedilol 3.125 mg oral tablet (3 sources) alpha-Adrenergic Rosario, beta-Adrenergic Rosario Start: 07-03-2024 take 3.125 mg by mouth once Carvedilol Active 3.125 MG PO Once July 03, 2024 12:00am Start: 06-06-2024 End: 07-03-2024 take 1 tablet by mouth twice daily at mealtime Carvedilol (Coreg) 6.25 mg tablet Discontinued 6.25 MG PO Twice daily June 06, 2024 12:00am July 03, 2024 10:45am must administer with a meal/food cholecalciferol 0.05 mg oral capsule (13 sources) Vitamin D Start: 01-25-2024 End: 02-22-2024 take 2000 [IU] by mouth once daily Cholecalciferol (Vitamin D3) Active 2000 UNIT PO Daily February 22, 2024 11:27am take 1 capsule by mouth once pola ly Vitamin D 50 MCG (1999) Oral Capsule TAKE 1 CAPSULE Daily Quantity: 0 Refills: 0 Ordered: 01-Jun-2022 DO Active clopidogrel 75 mg oral tablet (2 sources) P2Y12 Platelet Inhibitor Start: 06-06-2024 take 1 tablet by mouth once daily Clopidogrel (Plavix) 75 mg tablet Active 75 MG PO Daily June 06, 2024 12:00am empagliflozin 10 mg oral tablet (1 source) Sodium-Glucose Cotransporter 2 Inhibitor Start: 07-03-2024 take 1 tablet by mouth once daily Empagliflozin (Jardiance) 10 mg tablet Active 10 MG PO Daily July 03, 2024 12:00am furosemide 40 mg oral tablet (3 sources) Loop Diuretic Start: 07-03-2024 take 40 mg by mouth once daily Furosemide Active 40 MG PO Daily July 03, 2024 12:00am Start: 06-06-2024 End: 07-03-2024 take 20 mg by mouth once daily Furosemide Discontinued 20 MG PO Daily June 06, 2024 12:00am July 03, 2024 10:31am Glucosamine Chond Cmp Double - (1 source) Glucosamine Julieth d Cmp Double - as directed Orally twice a day Active methylcellulose 2000 mg powd er for oral suspension (12 sources) Start: 06-06-2024 Methylcellulos e (With Sugar) Active 1 TBSP PO Daily June 06, 2024 12:00am Start: 01-25-2024 End: 06-06-2024 take 1 tablet by mouth once daily Methylcellulose (Laxative) (Citrucel) 500 mg tablet Discontinued 500 MG PO Daily January 25, 2024 12:00am June 06, 2024 11:34am Citrucel - as di rected Orally Active nitroglycerin 0.4 mg sublingual tablet (1 source) Nitrate Vasodilator Start: 06-20-2024 Nitroglycerin Active 0.4 MG SUBLINGUAL Q5M June 20, 2024 12:00am nortriptyline 25 mg oral capsule (16 sources) Tricyclic Antidepressant Start: 07-03-2024 take 25 mg by mouth once daily at bedtime Nortriptyline Active 25 MG PO Daily at bedtime July 03, 2024 10:46am Start: 01-25-2024 End: 02-22-2024 take 2 capsules by mouth once daily at bedtime Nortriptyline Discontinued MG PO January 25, 2024 12:00am February 22, 2024 11:28am FreeTextSi capsule Orally Once a day at [facility]; Note: Source Status: Taking; Provider: Emiliano Bhatti ( ) Start: 01-25-2024 End: 07-03-2024 take 50 mg by mouth once daily at bedtime Nortriptyline Discontinued 50 MG PO Daily at bedtime February 22, 2024 11:27am July 03, 2024 10:47am Start: 10-01-2021 take 1 capsule by mo uth twice daily Nortriptyline HCl - 25 MG Oral Capsule TAKE 1 CAPSULE BY MOUTH TWICE A DAY FOR 90 DAYS Quantity: 180 Refills: 0 Ordered: 27-Mar-2022 DO Start : 01-Oct-2021 Active take 2 capsules by m outh once daily at bedtime Nortriptyline HCl 25 MG 2 capsule Orally Once a day at [facility] Active penicillin v potassium 500 mg oral tablet (1 source) take 1 tablet by mouth every six hours Penicillin V Potassium 500 MG 1 tablet Orally FOUR TIMES A DAY Active Trelegy Ellipta 100 mcg (1 source) take 1 puff(s) by inhalation once daily as needed Trelegy Ellipta 100 mcg 1 puff Inhalation Once a day prn Active vitamin b12 0.0667 mg/ml oral solution (1 source) Vitamin B12 Start: 07-03-2024 take 1000 ug by mouth every month Cyanocobalamin (Vitamin B-12) Active 1000 MCG PO every month July 03, 2024 12:00am Vitamin D (Cholecalciferol) 50 MCG (1999 UT) (2 sources) take 1 capsule by mouth once daily Vitamin D (Cholecalciferol) 50 MCG (1999 UT) 1 capsule Orally Once a day Active Completed/Discontinued Medications Medication Drug Class(es) Dates Sig (Normalized) Sig (Original) amLODIPine 10 mg oral tablet (19 sources) Dihydropyridine Calcium Channel Rosario Start: 01-25-2024 End: 06-06-2024 take 5 mg by mouth once daily Amlodipine Discontinued 5 MG PO Daily February 22, 2024 11:42am June 06, 2024 11:33am Start: 01-25-2024 End: 02-22-2024 take 10 mg by mouth once daily Amlodipine Discontinued 10 MG PO Daily February 22, 2024 11:25am February 22, 2024 11:45am Start: 05-12-2022 take 1 tablet by kaylene th once daily amLODIPine Besylate 10 MG Oral Tablet TAKE 1 TABLET BY MOUTH EVERY DAY FOR 100 DAYS Quantity: 90 Refills: 0 Ordered: 12-May-2022 DO Start : 12-May-2022 Active aspirin 81 mg chewable tablet (11 sources) Platelet Aggregation Inhibitor, Nonsteroidal Anti-inflammatory Drug Start: 01-25-2024 End: 06-06-2024 take 1 tablet by mouth once daily Aspirin Discontinued 1 TAB PO Daily January 25, 2024 12:00am June 06, 2024 11:30am FreeTextSi tablet Orally Once a day; Note: Source Status: Taking; Provider: Emiliano Bhatti ( ) take 1 tablet by kaylene th every twenty-four hours Aspirin 81 MG 1 tablet Orally Once a day Active take 1 tablet by mouth once shade y Aspirin 81 MG Oral Tablet Delayed Release TAKE 1 TABLET DAILY. Quantity: 90 Refills: 3 Ordered: 01-Jun-2022 DO Active take 2 tablets by mo [facility] every twenty-four hours Aspirin 81 MG 2 tablet Orally Once a day Active Citrucel POWD (1 source) Citrucel POWD US E DIRECTED. Quantity: 0 Refills: 0 Ordered: 01-Jun-2022 DO Active ferrous sulfate 325 mg oral tablet (1 source) take 1 tablet by mouth once daily Ferrous Sulfate 325 (65 Fe) MG Oral Tablet Take 1 tablet daily Quantity: 0 Refills: 0 Ordered: 01-Jun-2022 DO Active Sgwfbrwqqqn-Itivvjivg-O ilanter (4 sources) Start: 02-22-2024 End: 06-06-2024 Ccbthenbiiu-Dwefmofjn-Mcte nter (Trelegy Ellipta) 200-62.5-25 mcg blister with device Discontinued 1 INH INHALATION Daily February 22, 2024 12:00am June 06, 2024 11:34am Start: 02-22-2024 Fluticasone-Um eclidin-Vilanter (Trelegy Ellipta) 200-62.5-25 mcg blister with device Active 1 INH INHALATION Daily February 22, 2024 12:00am lisinopril 20 mg oral tablet (11 sources) Angiotensin Converting Enzyme Inhibitor Start: 01-25-2024 End: 01-25-2024 take 1 tablet by mouth once daily Lisinopril Discontinued 1 TAB PO Daily January 25, 2024 12:00am January 25, 2024 4:01pm FreeTextSi tablet Orally Once a day; Note: Source Status: Taking; Provider: Emiliano Bhatti ( ) Start: 08-16-2021 take 1 tablet by kaylene th once daily Lisinopril 20 MG Oral Tablet Take 1 tablet daily Quantity: 0 Refills: 0 Ordered: 12-May-2022 DO Start : 16-Aug-2021 Active take 1 tablet by kaylene th every twelve hours Lisinopril 20 MG 1 tablet Orally TWICE A DAY Active potassium chloride 20 meq extended release oral tablet (5 sources) Start: 01-27-2024 End: 02-22-2024 take 20 mEq by mouth once daily Potassium Chloride Discontinued 20 MEQ PO Daily January 27, 2024 12:00am February 22, 2024 11:42am rivaroxaban 2.5 mg oral tablet (10 sources) Factor Xa Inhibitor Start: 01-25-2024 End: 01-25-2024 take 1 tablet by mouth twice daily Rivaroxaban Discontinued 1 TAB PO Twice daily January 25, 2024 12:00am January 25, 2024 4:00pm FreeTextSi tablet Orally Twice a day; Note: Source Status: Taking; Provider: Emiliano Bhatti ( ) Start: 05-30-2022 take 1 tablet by kaylene th twice daily Xarelto 2.5 MG Oral Tablet TAKE 1 TABLET Twice daily Quantity: 180 Refills: 3 Ordered: 30-May-2022 DO Start : 30-May-2022 Active spironolactone 25 mg oral tablet (7 sources) Aldosterone Antagonist Start: 02-22-2024 End: 06-06-2024 take 25 mg by mouth once daily Spironolactone Discontinued 25 MG PO Daily February 22, 2024 12:24pm June 06, 2024 11:34am Problems Active Problems Problem Classification Problem Date Documented Da te Episodic/Chronic Calculus of urinary tract (20 sources) Kidney stone; Translations: [Calculus of kidney] Onset: 04-21-2022 Resolved: 04-21-2022 Episodic Chronic kidney disease (20 sources) Chronic kidney disease, unspecified; Translations: [Chronic kidney disease stage 3] Onset: 09-29-2021 Chronic Coronary atherosclerosis and other heart disease (1 source) Presence of coronary angioplasty implant and graft; Translations: [Percutaneous transluminal coronary angioplasty status] 06-06-2024 Episodic Diabetes mellitus without complication (7 sources) Glycosuria; Translations: [Glycosuria] 02-22-2024 Episodic Disorders of lipid metabolism (20 sources) Pure hypercholesterolemia , unspecified; Translations: [Hyperlipidemia] Onset: 02-04-2021 Chronic Essential hypertension (2 sources) Essential (primary) hypertension; Translations: [Benign essential hypertension] Onset: 02-04-2021 Chronic Fluid and electrolyte disorders (13 sources) Hypokalemia; Translations: [Hypokalemia] Onset: 03-06-2024 01-28-2024 Episodic Genitourinary symptoms and ill-defined conditions (17 sources) Proteinuria; Translations: [Proteinuria, unspecified] Onset: 02-14-2024 01-25-2024 Episodic Hypertension with complications and secondary hypertension (20 sources) Chronic kidney disease due to hypertension; Translations: [Hypertensive chronic kidney disease with stage 1 through stage 4 chronic kidney disease, or unspecified chronic kidney disease] Onset: 04-21-2022 Resolved: 04-21-2022 Chronic Immunizations and screening for infectious disease (1 source) Patient encounter status; Translations: [Other specified vaccination] Episodic Malaise and fatigue (4 sources) Other fatigue; Translations: [OTHER FATIGUE] Onset: 10-05-2021 Episodic Nephritis; nephrosis; renal sclerosis (20 sources) Nephrosclerosis; Translations: [Atrophy of kidney (terminal)] Onset: 04-21-2022 Resolved: 04-21-2022 Chronic Nutritional deficiencies (1 source) Vitamin D deficiency, unspecified; Translations: [VITAMIN D DEFICIENCY UNSPECIFIED] Onset: 10-02-2021 Chronic Osteoporosis (1 source) Age-related osteoporosis without current pathological fracture; Translations: [AGE-REL OSTEOPOR W/O CURR PATH FX] Onset: 10-02-2021 Chronic Other endocrine disorders (12 sources) Hyperparathyroidism, unspecified; Translations: [Hyperparathyroidism , unspecified] Onset: 10-02-2021 Resolved: 04-21-2022 Chronic Other endocrine disorders (2 sources) Primary hyperparathyroidism; Translations: [Primary hyperparathyroidism] Chronic Other endocrine disorders (9 sources) Hyperparathyroidism; Translations: [Hyperparathyroidism , unspecified] 01-25-2024 Chronic Other nutritional; endocrine; and metabolic disorders (2 sources) Hypercalcemia; Translations: [Hypercalcemia] Chronic Other nutritional; endocrine; and metabolic disorders (1 source) Hypercalcemia Onset: 04-21-2022 Resolved: 04-21-2022 Chronic Other nutritional; endocrine; and metabolic disorders (1 source) Overweight in adulthood with body mass index of 25 or more but less than 30; Translations: [Overweight] Episodic Peripheral and visceral atherosclerosis (1 source) Peripheral vascular disease; Translations: [Peripheral vascular disease, unspecified] Chronic Residual codes; unclassified (1 source) Other specified postprocedural states; Translations: [Other postprocedural status] 06-06-2024 Episodic Screening and history of mental health and substance abuse codes (2 sources) Personal history of nicotine dependence; Translations: [Ex-smoker] Onset: 02-04-2021 Episodic Comment on above: Quit in 2014; Unclassified (1 source) COUGH, UNSPECIFIED; Translations: [COUGH, UNSPECIFIED] Onset: 10-12-2021 Unclassified (1 source) CONTACT W/AND (SUSP) EXPOS COVID-19; Translations: [CONTACT W/AND (SUSP) EXPOS COVID-19] Onset: 02-04-2021 Past or Other Problems Problem Classification Problem Date Documented Da te Episodic/Chronic Abdominal pain (4 sources) Unspecified abdominal pain; Translations: [UNSPECIFIED ABDOMINAL PAIN] Onset: 02-02-2021 Episodic Chronic kidney disease (3 sources) Chronic kidney disease; Translations: [Chronic kidney disease, stage 3 unspecified] Onset: 04-21-2022 Resolved: 04-21-2022 Other aftercare (1 source) detention (current) use of aspirin; Translations: [ALF CURRENT USE OF ASPIRIN] Onset: 02-04-2021 Episodic Other aftercare (1 source) Other prison (current) drug therapy; 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] Onset: 02-04-2021 Episodic Other circulatory disease (1 source) Personal history of transient ischemic attack (TIA), and cerebral infarction without residual deficits; Translations: [PERS HX TIA AND CI NO RESID DEFICIT] Onset: 02-04-2021 Episodic Other diseases of kidney and ureters (1 source) Disorder of kidney and ureter, unspecified; Translations: [DISORDER KIDNEY AND URETER UNS] Onset: 02-04-2021 Episodic Residual codes; unclassified (1 source) Acquired absence of other specified parts of digestive tract; Translations: [ACQ ABSENCE OTH PART DIGESTV TRACT] Onset: 02-04-2021 Episodic Results Test Name Value Interpretation Reference Range Facility Erythrocyte distribution wid th Auto (RBC) [Ratio]on 06-03-2024 Erythrocyte distribution width (RBC) [Ratio] 14.5 % 11.0-15.0 [facility] Estimated glomerular filtrat ion rate (GFR) non- Americanon 06-03-2024 GFR/1.73 sq M.predicted among non-blacks MDRD (S/P/Bld) [Vol rate/Area] 33 mL/min/{1.73_m2} Low >=60 [facility] Glucose mean value [Mass/vol ume] in Blood Estimated from glycated hemoglobinon 06-03-2024 Average glucose Estimated from glycated hemoglobin (Bld) [Mass/Vol] 94 mg/dL [facility] Hematocrit Auto (Bld) [Volum e fraction]on 06-03-2024 Hematocrit (Bld) [Volume fraction] 33.5 % Low 42.0-54.0 [facility] Hemoglobin [Mass/volume] in Bloodon 06-03-2024 Hemoglobin (Bld) [Mass/Vol] 10.6 g/dL Low 14.0-18.0 [facility] Laboratory - Chemistry and C hemistry - challengeon 06-03-2024 Albumin [Mass/Vol] 3.0 g/dL Low 3.4-5.0 [facility] Calcium [Mass/Vol] 9.9 mg/dL 8.5-10.1 [facility] Chloride [Moles/Vol] 101 mmol/L 98-107 [facility] CO2 [Moles/Vol] 31.9 mmol/L 21.0-32.0 [facility] Creatinine [Mass/Vol] 2.00 mg/dL High 0.70-1.30 [facility] GFR/1.73 sq M.predicted MDRD (S/P/Bld) [Vol rate/Area] 40 mL/min/{1.73_m2} Low >=60 [facility] Glucose [Mass/Vol] 106 mg/dL 74-106 [facility] Magnesium [Mass/Vol] 1.8 mg/dL 1.8-2.4 [facility] Potassium [Moles/Vol] 4.1 mmol/L 3.5-5.1 [facility] Sodium [Moles/Vol] 137 mmol/L 136-145 [facility] Urate [Mass/Vol] 7.1 mg/dL 3.5-7.2 [facility] Urea nitrogen [Mass/Vol] 20.0 mg/dL High 7.0-18.0 [facility] Urea nitrogen/Creatinine [Mass ratio] 10.0 mg/mg [facility] Bilirubin Ql (U) Negative NEGATIVE [facility] Glucose (U) [Mass/Vol] Negative NEGATIVE [facility] Ketones Ql (U) Negative NEGATIVE [facility] pH (U) 6.0 [pH] 5.0-9.0 [facility] Specific gravity (U) [Rel density] 1.025 1.005-1.025 [facility] Urobilinogen Qn (U) 1.0 {Beatriz'U}/dL 0.2-1.0 [facility] Laboratory - Hematology and Cell countson 06-03-2024 HbA1c (Bld) [Mass fraction] 4.9 % 4.5-6.2 [facility] Comment on above: ADA RECOMMENDED LIMI T 4.0 - 6.0ADA THERAPEUTIC TARGET < 7.0ACTION SUGGESTED> 7.0 Laboratory - Specimen inform ationon 06-03-2024 Appearance (U) CLEAR CLEAR [facility] Color (U) YELLOW YELLOW [facility] Laboratory - Urinalysison Hyaline casts LM Ql (Urine sed) FEW [facility] Leukocyte esterase Test strip Ql (U) Negative NEGATIVE [facility] Mucus Ql (Urine sed) SMALL Abnormal NONE SEEN [facility] Nitrite Ql (U) Negative NEGATIVE [facility] Protein (U) [Mass/Vol] 385.3 mg/dL High <=11.9 F [facility] Protein Ql (U) >=300 mg/dL Abnormal NEG/TRACE [facility] Leukocytes [#/volume] correc anna for nucleated erythrocytes in Blood by Automated counon 06-03-2024 WBC corrected for nucl RBC Auto (Bld) [#/Vol] 5.9 10 3/uL 4.0-11.0 [facility] MCH Auto (RBC) [Entitic mass ]on 06-03-2024 MCH (RBC) [Entitic mass] 26.4 pg 25.9-34.0 [facility] MCHC Auto (RBC) [Mass/Vol]on 06-03-2024 MCHC (RBC) [Mass/Vol] 31.6 g/dL 29.9-35.2 [facility] MCV Auto (RBC) [Entitic vol] on 06-03-2024 MCV (RBC) [Entitic vol] 83.3 fL 80.0-94.0 F [facility] No Panel Informationon 06-03 25-Hydroxy Vitamin D Total 19.9 ng/mL [facility] Comment on above: <20 ng/mL Vit D defi cient20-<30 ng/mL Vit D [id number] ng/mL Vit D sufficient>100 ng/mL Potential Toxicity Parathyroid Hormone (Intact) 53 pg/mL 15-65 [facility] Comment on above: Performed at: - [facility] [address] [id number] Director: Contreras Pollard PhD, Phone: [phone] Phosphorus Level 3.1 mg/dL 2.6-4.7 [facility] Urine Bacteria NONE SEEN #/HPF NONE SEEN [facility] Urine Occult Blood Negative NEGATIVE [facility] Urine Other Casts SEEN #/LPF Abnormal NONE SEEN [facility] Urine Other Crystals None Seen #/HPF None Seen [facility] Urine Random Creatinine 145.44 mg/dL 20.00-300. 00 [facility] Urine RBC 0-2 #/HPF 0-2 [facility] Urine Squamous Epithelial Cells RARE #/LPF NONE/RARE [facility] Urine WBC 2-5 #/HPF Abnormal NONE SEEN [facility] Platelet mean volume Auto (B ld) [Entitic vol]on 06-03-2024 Platelet mean volume (Bld) [Entitic vol] 9.0 fL Low 9.5-13.5 [facility] Platelets Auto (Bld) [#/Vol] on 06-03-2024 Platelets (Bld) [#/Vol] 222 10 3/uL 150-450 [facility] RBC Auto (Bld) [#/Vol]on RBC (Bld) [#/Vol] 4.02 10 6/uL Low 4.70-6.10 [facility] Serum or plasma anion gap de terminationon 06-03-2024 Anion gap [Moles/Vol] 8.2 mmol/L [facility] Urine protein/creatinine rat ioon 06-03-2024 Protein/Creatinine (U) [Ratio] 2.65 [facility] Albumin [Mass/volume] in Ser um or Plasma by Bromocresol green (BCG) dye binding methoOrdered By: Magy Cummings on 03-06-2024 Albumin BCG dye [Mass/Vol] 3.5 g/dL 3.5-5.7 [facility] Calcium [Mass/volume] in Ser um or PlasmaOrdered By: Magy Emiliano on 03-06-2024 Calcium [Mass/Vol] 9.8 mg/dL 8.6-10.3 [facility] Carbon dioxide, total [Moles /volume] in Serum or PlasmaOrdered By: Magy Emiliano on 03-06-2024 CO2 [Moles/Vol] 31.1 mmol/L 21.0-31.0 [facility] Chloride [Moles/volume] in S zoey or PlasmaOrdered By: Magy Emiliano on 03-06-2024 Chloride [Moles/Vol] 104 mmol/L 98-107 [facility] Creatinine [Mass/volume] in Serum or PlasmaOrdered By: Magy Emiliano on 03-06-2024 Creatinine [Mass/Vol] 1.81 mg/dL 0.70-1.30 [facility] Glucose [Mass/volume] in Ser um or PlasmaOrdered By: Magy Cummings on 03-06-2024 Glucose [Mass/Vol] 101 mg/dL 70-100 [facility] Comment on above: ADA recommended refe rence rangeRandom Glucose Reference Range is dependent on time and content of last meal. Glucose of more than 200 mg/dL in a nonstressed, ambulatory subject supports the diagnosis of Diabetes Mellitus. No Panel InformationOrdered By: Magy Cummings on 03-06-2024 Estimated GFR (CKD-EPI) 39.237 mL/Min [facility] Creatinine Clearance (Chem N/A [facility] Phosphate [Mass/volume] in S zoey or PlasmaOrdered By: Magy Cummings on 03-06-2024 Phosphate [Mass/Vol] 2.8 mg/dL 2.5-4.5 [facility] Potassium [Moles/volume] in Serum or PlasmaOrdered By: Magy Cummings on 03-06-2024 Potassium [Moles/Vol] 3.5 mmol/L 3.5-5.1 [facility] Renal Function Panelon 03-06 Albumin [Mass/Vol] 3.5 g/dL Normal 3.5-5.7 [facility] Comment on above: Result Comment: PERF ORMED BY: [place] [address] PATHOLOGIST FORENSIC ANALYST SALINA BLOCK M.D. Performed By: #### R ENAL #### [facility] [address] [place] [address] Anion gap [Moles/Vol] 9.4 mmol/L Normal 6.0-15.0 [facility] Comment on above: Performed By: #### R ENAL #### [facility] [address] [place] [address] Calcium [Mass/Vol] 9.8 mg/dL Normal 8.6-10.3 [facility] Comment on above: Performed By: #### R ENAL #### [place] [address] [place] Chloride [Moles/Vol] 104 mmol/L Normal 98-107 [facility] Comment on above: Performed By: #### R ENAL #### [facility] [address] [place] [address] [place] CO2 [Moles/Vol] 31.1 mmol/L High 21.0-31.0 [facility] Comment on above: Performed By: #### R ENAL #### [address] Creatinine [Mass/Vol] 1.81 mg/dL High 0.70-1.30 [facility] Comment on above: Performed By: #### R ENAL #### [place] [address] [place] GFR/1.73 sq M.predicted MDRD (S/P/Bld) [Vol rate/Area] 39.237 mL/min/{1.73_m2} Normal [facility] Comment on above: Performed By: #### R ENAL #### [address] Glucose [Mass/Vol] 101 mg/dL High 70-100 [facility] Comment on above: Result Comment: [place] Glucose Reference Range is dependent on time and content of last meal. Glucose of more than 200 mg/dL in a nonstressed, ambulatory subject supports the diagnosis of Diabetes Mellitus. ADA recommended reference range Performed By: #### R ENAL #### [place] [address] [place] Phosphate [Mass/Vol] 2.8 mg/dL Normal 2.5-4.5 [facility] Comment on above: Performed By: #### R ENAL #### [place] [address] [place] Potassium [Moles/Vol] 3.5 mmol/L Normal 3.5-5.1 [facility] Comment on above: Performed By: #### R ENAL #### [place] [address] [place] Sodium [Moles/Vol] 141 mmol/L Normal 136-145 [facility] Comment on above: Performed By: #### R ENAL #### [facility] [address] Urea nitrogen [Mass/Vol] 25 mg/dL Normal 05-09 [facility] Comment on above: Performed By: #### R ENAL #### [facility] [address] Serum or plasma anion gap de terminationOrdered By: Magy Cummings on 03-06-2024 Anion gap [Moles/Vol] 9.4 mmol/L 6.0-15.0 [facility] Sodium [Moles/volume] in Ser um or PlasmaOrdered By: Magy Cummings on 03-06-2024 Sodium [Moles/Vol] 141 mmol/L 136-145 [facility] Urea nitrogen [Mass/volume] in Serum or PlasmaOrdered By: Magy Cummings on 03-06-2024 Urea nitrogen [Mass/Vol] 25 mg/dL 7 [facility] Automated erythrocytes count in urine sediment (number/area)Ordered By: Magy Cummings on 02-15-2024 RBC Auto (Urine sed) [#/Area] 3-4 [HPF] 0-4 [facility] Automated leukocytes count i n urine sediment (number/area)Ordered By: Magy Cummings on 02-15-2024 WBC Auto (Urine sed) [#/Area] 3-4 [HPF] 0-4 [facility] Automated urine color determ inationOrdered By: Magy Cummings on 02-15-2024 Color (U) Yellow Normal Yellow [facility] Comment on above: Order Comment: Name Collection Type:: Voided Performed By: #### A DDONUAPLUS, PROCRERAT #### [facility] [address] Automated urine hyaline cast s count (number/volume)Ordered By: Magy Cummings on 02-15-2024 Hyaline casts Auto (U) [#/Vol] 10-19 [LPF] 0-1 [facility] Bilirubin Test strip Ql (U)O rdered By: Magy Cummings on 02-15-2024 Bilirubin Ql (U) Negative Negative [facility] Casts typing in urine sedime nt by light microscopyOrdered By: Magy Cummings on 02-15-2024 Casts LM Nom (Urine sed) None seen [LPF] None Seen [facility] Creatinine [Mass/volume] in UrineOrdered By: Magy Cummings on 02-15-2024 Creatinine (U) [Mass/Vol] 157.0 mg/dL [facility] Comment on above: No reference range e stablished Dipstick and Microscopicon 0 02-15-2024 Appearance (U) Clear Normal Clear [facility] Comment on above: Order Comment: Name Collection Type:: Voided Performed By: #### A DDONUAPLUS, PROCRERAT #### [facility] [address] [place], [place] [id number] [place] Bacteria,Urine None Seen Normal None Seen [facility] Comment on above: Order Comment: Name Collection Type:: Voided Performed By: #### A DDONUAPLUS, PROCRERAT #### [facility] [address] [place], [place] [id number] [place] Bilirubin,Urine Negative Normal Negative [facility] Comment on above: Order Comment: Name Collection Type:: Voided Performed By: #### A DDONUAPLUS, PROCRERAT #### [facility] [address] [place], [place] [id number] [place] Glucose Ql (U) 250 mg/dL High Normal [facility] Comment on above: Order Comment: Name Collection Type:: Voided Performed By: #### A DDONUAPLUS, PROCRERAT #### [facility] [address] [place], [place] [id number] [place] Hyaline Casts,Urine 10-19 High 0-1 [facility] Comment on above: Order Comment: Name Collection Type:: Voided Performed By: #### A DDONUAPLUS, PROCRERAT #### [facility] [address] [place], [place] [id number] [place] Ketones Ql (U) Negative Normal Negative [facility] Comment on above: Order Comment: Name Collection Type:: Voided Performed By: #### A DDONUAPLUS, PROCRERAT #### [address] Leukocyte esterase Test strip Ql (U) Negative Normal Negative [facility] Comment on above: Order Comment: Name Collection Type:: Voided Performed By: #### A DDONUAPLUS, PROCRERAT #### [place] [address] [place] Nitrite,Urine Negative Normal Negative [facility] Comment on above: Order Comment: Name Collection Type:: Voided Performed By: #### A DDONUAPLUS, PROCRERAT #### [address] Occult Blood,Urine Trace High Negative [facility] Comment on above: Order Comment: Name Collection Type:: Voided Performed By: #### A DDONUAPLUS, PROCRERAT #### [address] Other Casts,Urine None Seen Normal None Seen [facility] Comment on above: Order Comment: Name Collection Type:: Voided Result Comment: PERF ORMED BY: [place] [address] PATHOLOGIST FORENSIC ANALYST SALINA BLOCK M.D. Performed By: #### A DDONUAPLUS, PROCRERAT #### [address] Protein,Urine >=1000 High Negative [facility] Comment on above: Order Comment: Name Collection Type:: Voided Performed By: #### A DDONUAPLUS, PROCRERAT #### [address] RBC,Urine 3-4 Normal 0-4 [facility] Comment on above: Order Comment: Name Collection Type:: Voided Performed By: #### A DDONUAPLUS, PROCRERAT #### [address] Specificy [place],Urine 1.026 Normal 1.001-1.030 [facility] Comment on above: Order Comment: Name Collection Type:: Voided Performed By: #### A DDONUAPLUS, PROCRERAT #### [facility] [address] Squamous Epithelial Cell,Urine 3-4 High 0-2 [facility] Comment on above: Order Comment: Name Collection Type:: Voided Performed By: #### A DDONUAPLUS, PROCRERAT #### [facility] [address] Urobilinogen,Urine Normal Normal Normal [facility] Comment on above: Order Comment: Name Collection Type:: Voided Performed By: #### A DDONUAPLUS, PROCRERAT #### [address] WBC,Urine 3-4 Normal 0-4 [facility] Comment on above: Order Comment: Name Collection Type:: Voided Performed By: #### A DDONUAPLUS, PROCRERAT #### [address] Ketones Auto test strip (U) [Mass/Vol]Ordered By: Magy Cummings on 02-15-2024 Ketones (U) [Mass/Vol] Negative Negative [facility] Nitrite Test strip Ql (U)Ord ered By: Magy Cummings on 02-15-2024 Nitrite Ql (U) Negative Negative [facility] Protein Auto test strip (U) [Mass/Vol]Ordered By: Magy Cummings on 02-15-2024 Protein (U) [Mass/Vol] mg/dL Negative [facility] Protein Creat Ratio Ur Rando mon 02-15-2024 Creatinine, Urine (Random) 157.0 mg/dL Normal [facility] Comment on above: Result Comment: No r eference range established Performed By: #### A DDONUAPLUS, PROCRERAT #### [facility] [address] Protein, Urine (Random) > 600 High 0-9 [facility] Comment on above: Performed By: #### A DDONUAPLUS, PROCRERAT #### [facility] [address] Urine Protein/Creatinine Ratio Not performed Normal 0-200 [facility] Comment on above: Result Comment: PERF ORMED BY: [place] [address] PATHOLOGIST FORENSIC ANALYST SALINA BLOCK M.D. Performed By: #### A DDONUAPLUS, PROCRERAT #### [facility] [address] Protein [Mass/volume] in Uri neOrdered By: Magy Cummings on 02-15-2024 Protein (U) [Mass/Vol] mg/dL 0-9 [facility] Specific gravity Auto test s trip (U) [Rel density]Ordered By: Magy Cummings on 02-15-2024 Specific gravity (U) [Rel density] 1.026 1.001-1.030 [facility] Squamous epithelial cells de tection in urine sediment by light microscopyOrdered By: Magy Cummings on 02-15-2024 Epithelial cells.squamous LM Ql (Urine sed) 3-4 [HPF] 0-2 [facility] Urine bacteria detection by automated methodOrdered By: Magy Cummings on 02-15-2024 Bacteria Auto Ql (U) None seen [HPF] None Seen [facility] Urine clarity by refractomet ry automatedOrdered By: Magy Cummings on 02-15-2024 Clarity Refractometry automated (U) Clear Clear [facility] Urine glucose measurement by automated test strip (mass/volume)Ordered By: Magy Cummings on 02-15-2024 Glucose Auto test strip (U) [Mass/Vol] 250 mg/dL Normal [facility] Urine hemoglobin detection b y automated test stripOrdered By: Magy Cummings on 02-15-2024 Hemoglobin Auto test strip Ql (U) Trace Negative [facility] Urine leukocyte esterase det ection by automated test stripOrdered By: Magy Cummings on 02-15-2024 Leukocyte esterase Auto test strip Ql (U) Negative Negative [facility] Urine pH measurement by auto mated test stripOrdered By: Magy Cummings on 02-15-2024 pH (U) 6.0 [pH] Normal 5.0-9.0 [facility] Comment on above: Order Comment: Name Collection Type:: Voided Performed By: #### A DDONUAPLUS, PROCRERAT #### [facility] [address] [place] [id number] [facility] Urine protein/creatinine rat ioOrdered By: Magy Cummings on 02-15-2024 Protein/Creatinine (U) [Ratio] TNP [facility] Comment on above: Test not performed Urobilinogen Auto test strip (U) [Mass/Vol]Ordered By: Magy Cummings on 02-15-2024 Urobilinogen (U) [Mass/Vol] Normal mg/dL Normal [facility] Albumin [Mass/volume] in Ser um or Plasma by Bromocresol green (BCG) dye binding methoOrdered By: Magy Cummings on 02-14-2024 Albumin BCG dye [Mass/Vol] 3.6 g/dL 3.5-5.7 [facility] Calcium [Mass/volume] in Ser um or PlasmaOrdered By: Magy Cummings on 02-14-2024 Calcium [Mass/Vol] 9.3 mg/dL 8.6-10.3 [facility] Carbon dioxide, total [Moles /volume] in Serum or PlasmaOrdered By: Magy Cummings on 02-14-2024 CO2 [Moles/Vol] 30.7 mmol/L 21.0-31.0 [facility] Chloride [Moles/volume] in S zoey or PlasmaOrdered By: Magy Cummings on 02-14-2024 Chloride [Moles/Vol] 102 mmol/L 98-107 [facility] Creatinine [Mass/volume] in Serum or PlasmaOrdered By: Magy Cummings on 02-14-2024 Creatinine [Mass/Vol] 1.76 mg/dL 0.70-1.30 [facility] Glucose [Mass/volume] in Ser um or PlasmaOrdered By: Magy Cummings on 02-14-2024 Glucose [Mass/Vol] 113 mg/dL 70-100 [facility] Comment on above: ADA recommended refe rence rangeRandom Glucose Reference Range is dependent on time and content of last meal. Glucose of more than 200 mg/dL in a nonstressed, ambulatory subject supports the diagnosis of Diabetes Mellitus. No Panel InformationOrdered By: Magy Cummings on 02-14-2024 Estimated GFR (CKD-EPI) 40.578 mL/Min [facility] Creatinine Clearance (Chem N/A [facility] Phosphate [Mass/volume] in S zoey or PlasmaOrdered By: Magy Cummings on 02-14-2024 Phosphate [Mass/Vol] 3.1 mg/dL 2.5-4.5 [facility] Potassium [Moles/volume] in Serum or PlasmaOrdered By: Magy Cummings on 02-14-2024 Potassium [Moles/Vol] 3.9 mmol/L 3.5-5.1 [facility] Renal Function Panelon 02-13 Albumin [Mass/Vol] 3.6 g/dL Normal 3.5-5.7 [facility] Comment on above: Result Comment: PERF ORMED BY: [place] [address] PATHOLOGIST FORENSIC ANALYST SALINA BLOCK M.D. Performed By: #### R ENAL #### [address] Anion gap [Moles/Vol] 12.2 mmol/L Normal 6.0-15.0 Th e [facility] Comment on above: Performed By: #### R ENAL #### [address] Calcium [Mass/Vol] 9.3 mg/dL Normal 8.6-10.3 [facility] Comment on above: Performed By: #### R ENAL #### [place] [address] [place] Chloride [Moles/Vol] 102 mmol/L Normal 98-107 [facility] Comment on above: Performed By: #### R ENAL #### [place] [address] [place] CO2 [Moles/Vol] 30.7 mmol/L Normal 21.0-31.0 [facility] Comment on above: Performed By: #### R ENAL #### [address] Creatinine [Mass/Vol] 1.76 mg/dL High 0.70-1.30 [facility] Comment on above: Performed By: #### R ENAL #### [place] [address] [place] GFR/1.73 sq M.predicted MDRD (S/P/Bld) [Vol rate/Area] 40.578 mL/min/{1.73_m2} Normal [facility] Comment on above: Performed By: #### R ENAL #### [address] Glucose [Mass/Vol] 113 mg/dL High 70-100 [facility] Comment on above: Result Comment: [place] Glucose Reference Range is dependent on time and content of last meal. Glucose of more than 200 mg/dL in a nonstressed, ambulatory subject supports the diagnosis of Diabetes Mellitus. ADA recommended reference range Performed By: #### R ENAL #### [place] [address] [place] Phosphate [Mass/Vol] 3.1 mg/dL Normal 2.5-4.5 [facility] Comment on above: Performed By: #### R ENAL #### [place] [address] [place] Potassium [Moles/Vol] 3.9 mmol/L Normal 3.5-5.1 [facility] Comment on above: Performed By: #### R ENAL #### [place] [address] [place] Sodium [Moles/Vol] 141 mmol/L Normal 136-145 [facility] Comment on above: Performed By: #### R ENAL #### [place] [address] [place] Urea nitrogen [Mass/Vol] 16 mg/dL Normal 7-25 [facility] Comment on above: Performed By: #### R ENAL #### [facility] [address] Serum or plasma anion gap de terminationOrdered By: Magy Emiliano on 02-14-2024 Anion gap [Moles/Vol] 12.2 mmol/L 6.0-15.0 [facility] Sodium [Moles/volume] in Ser um or PlasmaOrdered By: Magy Emiliano on 02-14-2024 Sodium [Moles/Vol] 141 mmol/L 136-145 [facility] Urea nitrogen [Mass/volume] in Serum or PlasmaOrdered By: Magy Emiliano on 02-14-2024 Urea nitrogen [Mass/Vol] 16 mg/dL 7-25 [facility] Albumin [Mass/volume] in Ser um or PlasmaOrdered By: Magy Emiliano on 01-26-2024 Albumin [Mass/Vol] 3.5 g/dL 2.9-4.4 [facility] Albumin [Mass/volume] in Ser um or Plasma by Bromocresol green (BCG) dye binding methoOrdered By: Magy Emiliano on 01-26-2024 Albumin BCG dye [Mass/Vol] 3.6 g/dL 3.5-5.7 [facility] Calcium [Mass/volume] in Ser um or PlasmaOrdered By: Magy Emiliano on 01-26-2024 Calcium [Mass/Vol] 9.5 mg/dL 8.6-10.3 [facility] Carbon dioxide, total [Moles /volume] in Serum or PlasmaOrdered By: Magy Emiliano on 01-26-2024 CO2 [Moles/Vol] 31.8 mmol/L 21.0-31.0 [facility] Chloride [Moles/volume] in S zoey or PlasmaOrdered By: Magy Emiliano on 01-26-2024 Chloride [Moles/Vol] 100 mmol/L 98-107 [facility] Creatinine [Mass/volume] in Serum or PlasmaOrdered By: Magy Emiliano on 01-26-2024 Creatinine [Mass/Vol] 1.79 mg/dL 0.70-1.30 [facility] Free K+L LT Chains, Qn, Son 01-26-2024 Free [place] Light Chains, S 65.2 mg/L High 3.3-19.4 [facility] Comment on above: Performed By: #### K APPA, SPE W INTERPRET, GARCIA SERUM #### [facility] , #### RENAL #### [facility] [address] [place] [address] [place] Free [place] Light Chains, S 37.0 mg/L High 5.7-26.3 [facility] Comment on above: Performed By: #### K APPA, SPE W INTERPRET, GARCIA SERUM #### [facility] , #### RENAL #### [facility] [address] [place] [address] [place]/Lambda Ratio, S 1.76 High 0.26-1.65 [facility] Comment on above: Result Comment: Perf ormed at: CB - [facility] [place] [id number] Tip Cutter: Contreras Pollard PhD, Phone: [phone] PERFORMED BY: [place] [address] PATHOLOGIST FORENSIC ANALYST SALINA BLOCK M.D. Performed By: #### K APPA, SPE W INTERPRET, GARCIA SERUM #### [facility] , #### RENAL #### [facility] [address] [place] [address] [place] Glucose [Mass/volume] in Ser um or PlasmaOrdered By: Magy Cummings on 01-26-2024 Glucose [Mass/Vol] 97 mg/dL 70-100 [facility] Comment on above: ADA recommended refe rence rangeRandom Glucose Reference Range is dependent on time and content of last meal. Glucose of more than 200 mg/dL in a nonstressed, ambulatory subject supports the diagnosis of Diabetes Mellitus. IgA [Mass/volume] in Serum o r PlasmaOrdered By: Magy Cummings on 01-26-2024 IgA [Mass/Vol] 146 mg/dL 61-437 [facility] IgG [Mass/volume] in Serum o r PlasmaOrdered By: Magy Cummings on 01-26-2024 IgG [Mass/Vol] 1171 mg/dL [id number] [facility] IgM [Mass/volume] in Serum o r PlasmaOrdered By: Magy Cummings on 01-26-2024 IgM [Mass/Vol] 190 mg/dL 15-143 [facility] Comment on above: Performed at: [employer] [address] [id number] Director: Contreras Pollard PhD, Phone: [phone] Immunofixation for UrineOrde red By: Magy Cummings on 01-26-2024 Interpretation Immunofixation (U) [Interp] See comment . [facility] Comment on above: No monoclonality det ected.Performed at: [facility] [employer] [facility] [address] [id number] Director: Contreras Pollard PhD, Phone: [phone] Immunofixation, (GARCIA), Urine on 01-26-2024 Immunofixation, (GARCIA), Urine Normal . [facility] Comment on above: Result Comment: No m onoclonality detected. Performed at: [facility] [address] [id number] Tip Cutter: Contreras Pollard PhD, Phone: [phone] PERFORMED BY: [place] [address] PATHOLOGIST FORENSIC ANALYST SALINA BLOCK M.D. Performed By: #### I FE,URINE #### [facility] , Immunofixation,Serumon 01-25 Immunofixation, Serum Comment: Normal . [facility] Comment on above: Result Comment: Pres ence of monoclonal protein is unclear at this time. Suggest repeat in 3 to 6 months if clinically indicated. Performed By: #### K APPA, SPE W INTERPRET, GARCIA SERUM #### [facility] , #### RENAL #### [place] [address] [place] Immunoglobulin A, Serum 146 mg/dL Normal 61-437 [facility] Comment on above: Performed By: #### K APPA, SPE W INTERPRET, GARCIA SERUM #### [facility] , #### RENAL #### [facility] [address] [place] [id number] [facility] Immunoglobulin G 1171 mg/dL Normal 603-1613 [facility] Comment on above: Performed By: #### K APPA, SPE W INTERPRET, GARCIA SERUM #### [facility] , #### RENAL #### [facility] [address] Immunoglobulin M, Serum 190 mg/dL High 15-143 [facility] Comment on above: Result Comment: Perf ormed at: [employer] [facility] [id number] Tip Cutter: Contreras Pollard PhD, Phone: [phone] Performed By: #### K APPA, SPE W INTERPRET, GARCIA SERUM #### [facility] , #### RENAL #### [facility] [address] Immunoglobulin light chains. kappa.free [Mass/volume] in SerumOrdered By: Magy Emiliano on 01-26-2024 Immunoglobulin light chains.kappa.free (S) [Mass/Vol] 65.2 mg/L 3.3-19.4 [facility] Immunoglobulin light chains. kappa.free/Immunoglobulin light chains.lambda.free [MassOrdered By: Magy Emiliano on 01-26-2024 Immunoglobulin light chains.kappa.free/Immun oglobulin light chains.lambda.free (S) [Mass ratio] 1.76 0.26-1.65 [facility] Comment on above: Performed at: - [facility] [id number] Director: Contreras Pollard PhD, Phone: [phone] Immunoglobulin light chains. lambda.free [Mass/volume] in Serum or PlasmaOrdered By: Magy Emiliano on 01-26-2024 Immunoglobulin light chains.lambda.free [Mass/Vol] 37.0 mg/L 5.7-26.3 [facility] No Panel InformationOrdered By: Magy Cummings on 01-26-2024 Estimated GFR (CKD-EPI) 39.763 mL/Min [facility] Creatinine Clearance (Chem N/A [facility] Protein Electrophoresis Interpret See comment . [facility] Comment on above: The SPE pattern appe ars unremarkable. Evidence ofmonoclonal protein is not apparent.Performed at: - [facility] [id number] Director: Contreras Pollard PhD, Phone: [phone] Protein Electrophoresis M-Sabino Not observed g/dL Not Observed [facility] Protein Electrophoresis Note See comment . [facility] Comment on above: Protein electrophore sis scan will follow via computer,mail, or airborne and air delivery specialist delivery. Serum Immunofixation Comment: . [facility] Comment on above: Presence of monoclon al protein is unclear at this time. Suggestrepeat in 3 to 6 months if clinically indicated. Phosphate [Mass/volume] in S zoey or PlasmaOrdered By: Magy Cummings on 01-26-2024 Phosphate [Mass/Vol] 2.9 mg/dL 2.5-4.5 [facility] Potassium [Moles/volume] in Serum or PlasmaOrdered By: Magy Cummings on 01-26-2024 Potassium [Moles/Vol] 3.1 mmol/L 3.5-5.1 [facility] Prot Electrophoresis w/Inter yolanda 01-26-2024 Albumin [Mass/Vol] 3.5 g/dL Normal 2.9-4.4 [facility] Comment on above: Performed By: #### K APPA, SPE W INTERPRET, GARCIA SERUM #### [facility] , #### RENAL #### [facility] [address] Albumin/Globulin [Mass ratio] 1.2 {ratio} Normal 0.7-1.7 [facility] Comment on above: Performed By: #### K APPA, SPE W INTERPRET, GARCIA SERUM #### [facility] , #### RENAL #### [place] [address] [place] Svkpj-4-Xfvvbwgh 0.3 g/dL Normal 0.0-0.4 [facility] Comment on above: Performed By: #### K APPA, SPE W INTERPRET, GARCIA SERUM #### [facility] , #### RENAL #### [place] [address] [place] Rexdl-4-Hiwixdis 0.7 g/dL Normal 0.4-1.0 [facility] Comment on above: Performed By: #### K APPA, SPE W INTERPRET, GARCIA SERUM #### [facility] , #### RENAL #### [place] [address] [place] Beta Globulin 0.8 g/dL Normal 0.7-1.3 [facility] Comment on above: Performed By: #### K APPA, SPE W INTERPRET, GARCIA SERUM #### [facility] , #### RENAL #### [place] [address] [place] Gamma Globulin 1.1 g/dL Normal 0.4-1.8 [facility] Comment on above: Performed By: #### K APPA, SPE W INTERPRET, GARCIA SERUM #### [facility] , #### RENAL #### [place] [address] [place] Globulin (S) [Mass/Vol] 2.9 g/dL Normal 2.2-3.9 [facility] Comment on above: Performed By: #### K APPA, SPE W INTERPRET, GARCIA SERUM #### [facility] , #### RENAL #### [place] [address] [place] M-Sabino Not Observed Normal Not Observed [facility] Comment on above: Performed By: #### K APPA, SPE W INTERPRET, GARCIA SERUM #### [facility] , #### RENAL #### [address] Protein [Mass/Vol] 6.4 g/dL Normal 6.0-8.5 [facility] Comment on above: Performed By: #### K APPA, SPE W INTERPRET, GARCIA SERUM #### [facility] , #### RENAL #### [address] SPE-Interpretation Normal . [facility] Comment on above: Result Comment: The SPE pattern appears unremarkable. Evidence of monoclonal protein is not apparent. Performed at: [facility] [address] [id number] Tip Cutter: Contreras Pollard PhD, Phone: [phone] Performed By: #### K APPA, SPE W INTERPRET, GARCIA SERUM #### [facility] , #### RENAL #### [address] SPE-Note Normal . [facility] Comment on above: Result Comment: Prot ein electrophoresis scan will follow via computer, mail, or airborne and air delivery specialist delivery. Performed By: #### K APPA, SPE W INTERPRET, GARCIA SERUM #### [facility] , #### RENAL #### [address] Protein [Mass/volume] in Ser um or PlasmaOrdered By: Magy Cummings on 01-26-2024 Protein [Mass/Vol] 6.4 g/dL 6.0-8.5 [facility] Renal Function Panelon 01-25 Albumin [Mass/Vol] 3.6 g/dL Normal 3.5-5.7 [facility] Comment on above: Result Comment: PERF ORMED BY: [place] [address] PATHOLOGIST FORENSIC ANALYST SALINA BLOCK M.D. Performed By: #### K APPA, SPE W INTERPRET, GARCIA SERUM #### [facility] , #### RENAL #### [address] Anion gap [Moles/Vol] 9.3 mmol/L Normal 6.0-15.0 [facility] Comment on above: Performed By: #### K APPA, SPE W INTERPRET, GARCIA SERUM #### [facility] , #### RENAL #### [address] Calcium [Mass/Vol] 9.5 mg/dL Normal 8.6-10.3 [facility] Comment on above: Performed By: #### K APPA, SPE W INTERPRET, GARCIA SERUM #### [facility] , #### RENAL #### [place] [address] [place] Chloride [Moles/Vol] 100 mmol/L Normal 98-107 [facility] Comment on above: Performed By: #### K APPA, SPE W INTERPRET, GARCIA SERUM #### [facility] , #### RENAL #### [address] CO2 [Moles/Vol] 31.8 mmol/L High 21.0-31.0 [facility] Comment on above: Performed By: #### K APPA, SPE W INTERPRET, GARCIA SERUM #### [facility] , #### RENAL #### [facility] [address] [place] [address] [place] Creatinine [Mass/Vol] 1.79 mg/dL High 0.70-1.30 [facility] Comment on above: Performed By: #### K APPA, SPE W INTERPRET, GARCIA SERUM #### [facility] , #### RENAL #### [facility] [address] [place] [address] [place] GFR/1.73 sq M.predicted MDRD (S/P/Bld) [Vol rate/Area] 39.763 mL/min/{1.73_m2} Normal [facility] Comment on above: Performed By: #### K APPA, SPE W INTERPRET, GARCIA SERUM #### [facility] , #### RENAL #### [place] [address] [place] Glucose [Mass/Vol] 97 mg/dL Normal 70-100 [facility] Comment on above: Result Comment: [facility] Glucose Reference Range is dependent on time and content of last meal. Glucose of more than 200 mg/dL in a nonstressed, ambulatory subject supports the diagnosis of Diabetes Mellitus. ADA recommended reference range Performed By: #### K APPA, SPE W INTERPRET, GARCIA SERUM #### [facility] , #### RENAL #### [place] [address] [place] Phosphate [Mass/Vol] 2.9 mg/dL Normal 2.5-4.5 [facility] Comment on above: Performed By: #### K APPA, SPE W INTERPRET, GARCIA SERUM #### [facility] , #### RENAL #### [place] [address] [place] Potassium [Moles/Vol] 3.1 mmol/L Low 3.5-5.1 [facility] Comment on above: Performed By: #### K APPA, SPE W INTERPRET, GARCIA SERUM #### [facility] , #### RENAL #### [place] [address] [place] Sodium [Moles/Vol] 138 mmol/L Normal 136-145 [facility] Comment on above: Performed By: #### K APPA, SPE W INTERPRET, GARCIA SERUM #### [facility] , #### RENAL #### [place] [address] [place] Urea nitrogen [Mass/Vol] 15 mg/dL Normal 7-25 [facility] Comment on above: Performed By: #### K APPA, GLORIA W INTERPRET, GARCIA SERUM #### [facility] , #### RENAL #### [facility] [address] Serum globulin measurement ( mass/volume)Ordered By: Magy Cummings on 01-26-2024 Globulin (S) [Mass/Vol] 2.9 g/dL 2.2-3.9 [facility] Serum or plasma albumin/glob ulin mass ratioOrdered By: Magy Cummings on 01-26-2024 Albumin/Globulin [Mass ratio] 1.2 {ratio} 0.7-1.7 [facility] Serum or plasma alpha 1 glob ulin measurement by electrophoresis (mass/volume)Ordered By: Magy Cummings on 01-26-2024 Alpha 1 globulin Elph [Mass/Vol] 0.3 g/dL 0.0-0.4 [facility] Serum or plasma alpha 2 glob ulin measurement by electrophoresis (mass/volume)Ordered By: Magy Cummings on 01-26-2024 Alpha 2 globulin Elph [Mass/Vol] 0.7 g/dL 0.4-1.0 [facility] Serum or plasma anion gap de terminationOrdered By: Magy Cummings on 01-26-2024 Anion gap [Moles/Vol] 9.3 mmol/L 6.0-15.0 [facility] Serum or plasma beta globuli n measurement by electrophoresis (mass/volume)Ordered By: Magy Cummings on 01-26-2024 Beta globulin Elph [Mass/Vol] 0.8 g/dL 0.7-1.3 [facility] Serum or plasma gamma globul in measurement by electrophoresis (mass/volume)Ordered By: Magy Emiliano on 01-26-2024 Gamma globulin Elph [Mass/Vol] 1.1 g/dL 0.4-1.8 [facility] Sodium [Moles/volume] in Ser um or PlasmaOrdered By: Magy Cummings on 01-26-2024 Sodium [Moles/Vol] 138 mmol/L 136-145 [facility] Urea nitrogen [Mass/volume] in Serum or PlasmaOrdered By: Magy Cummings on 01-26-2024 Urea nitrogen [Mass/Vol] 15 mg/dL 7-25 [facility] Laboratory - Chemistry and C hemistry - challengeon 01-17-2024 Bilirubin Ql (U) Negative [facility] Ketones Ql (U) Negative [facility] pH (U) 7.0 [pH] [facility] Specific gravity (U) [Rel density] 1.016 [facility] Laboratory - Specimen inform ationon 01-17-2024 Color (U) yellow [facility] Laboratory - Urinalysison Leukocyte esterase Test strip Ql (U) Negative [facility] Nitrite Ql (U) Negative [facility] Protein Ql (U) 3+ [facility] No Panel Informationon 01-16 Urine Glucose (UA) trace [facility] Office Visit (Cardiology)on 06-01-2022 Follow-up visit Diagnoses/Problems Assessed Peripheral vascular disease (443.9) (I73.9) Hyperlipemia (272.4) (E78.5) Essential hypertension, benign (401.1) (I10) Overweight with body mass index (BMI) of 29 to 29.9 in adult (278.02,V85.25) (E66.3,Z68.29) Orders Essential hypertension, benign IO EKG Electrocardiogram- 12 Lead; Status:Complete; Done: [id number] Hyperlipemia Renew: Atorvastatin Calcium 10 MG Oral Tablet; take 1 tablet by mouth once daily Overweight with body mass index (BMI) of 29 to 29.9 in adult Healthy Weight Tips; Status:Complete; Done: [id number] Some eating tips that can help you lose weight.; Status:Complete; Done: [id number] Patient Instructions Please bring all medicines, vitamins, and herbal supplements with you when you come to the office. Prescriptions will not be filled unless you are compliant with your follow up appointments or have a follow up appointment scheduled as per instruction of your physician. Refills should be requested at the time of your visit. [place] [address] [place], [address], [facility] from [facility] requested. Follow up in 4 months Chief Complaint CHAR ALATORRE is being seen for a consultation for Mcdermitt- Vasculopath. History of Present Illness Patient is seen in consultation at the suggestion of his primary care physician. He is an individual with a history of hypertension and hyperlipidemia which are adequately treated. He does have significant vascular disease and in the past underwent a right carotid endarterectomy as well as abdominal aortic aneurysm repair. Recently underwent iliac artery stenosis repair and because of this it appears he has vascular disease above and below the level of the heart. It appears that his heart has been spared. He states recent lipid profile was excellent and he apparently had a stress test and an echocardiogram immediately prior to his iliac artery repair. All the records for all this care rendered are all over the place. He believes he might be in [place] or at [facility] also in [facility]. Because of this we will attempt to obtain all these test results and integrate them into our plan of care. I advised him for the time being treatment of his risk factors of hypertension and hyperlipidemia is adequate and because of this we recommend continued therapy as is. The merits of diet and weight loss were discussed. Surgical History Problems History of Abdominal aortic aneurysm repair History of Back surgery History of Cataract surgery History of Cholecystectomy History of Complete colonoscopy - History of Drug-eluting stent placement History of Endarterectomy Right carotid History of Femoral endarterectomy Right- 05/11/2022- 3 stents placed History of Hemorrhoidectomy History of Retinal detachment repair History of Small bowel resection Current Meds Medication NameInstruction amLODIPine Besylate 10 MG Oral TabletTAKE 1 TABLET BY MOUTH EVERY DAY FOR 100 DAYS Aspirin 81 MG Oral Tablet Delayed ReleaseTAKE 1 TABLET DAILY. Atorvastatin Calcium 10 MG Oral TabletTAKE 1 TABLET BY MOUTH ONCE DAILY Citrucel POWDUSE DIRECTED. Ferrous Sulfate 325 (65 Fe) MG Oral TabletTake 1 tablet daily Lisinopril 20 MG Oral TabletTake 1 tablet daily Nortriptyline HCl - 25 MG Oral CapsuleTAKE 1 CAPSULE BY MOUTH TWICE A DAY FOR 90 DAYS Vitamin D 50 MCG (2000 UT) Oral CapsuleTAKE 1 CAPSULE Daily Xarelto 2.5 MG Oral TabletTAKE 1 TABLET Twice daily Allergies Medication No Known Drug Allergies Recorded By: Clau Phoenix; 06/01/2022 2:41:55 PM Social History Problems Daily caffeine consumption 3 cups of coffee daily Former smoker (V15.82) (Z87.891) Quit in 2014 No illicit drug use Rarely consumes alcohol (V49.89) (Z78.9) Review of Systems Constitutional: not feeling tired. Eyes: no eyesight problems. ENT: no hearing loss and no nosebleeds. Cardiovascular: no intermittent leg claudication and as noted in HPI. Respiratory: no chronic cough and no shortness of breath. Gastrointestinal: no change in bowel habits and no blood in stools. Genitourinary: no urinary frequency and no hematuria. Skin: no skin rashes. Neurological: no seizures and no frequent falls. Psychiatric: no depression and not suicidal. All other systems have been reviewed and are negative for complaint. Vitals Vital Signs Recorded: 01Jun2022 02:39PM Heart Rate83, Apical [id number], RUE, Sitting [id number], RUE, Sitting Height6 ft Smcqum296 lb BMI Eoyehktkiq94.97 kg/m2 BSA Calculated2.22 Tobacco Useb) No PHQ-2 #1. Over the last 2 weeks have you felt down, depressed or hopeless? (If yes, answer PHQ-9 below)No PHQ-2 #2. Over the last 2 weeks have you felt little interest or pleasure in doing things? (If yes, answer PHQ-9 below)No Falls Screening (Age 18+)a) No falls within the last year EKG done in office today Physical Exam Constitutional: alert and in no acute distress. Eyes: no (more content not included)... Normal [facility] Tobacco Screening.on 022 Adult depression screening assessment No [facility] [employer] 250 DO Work Phone: Fall risk assessment a) No falls within the last year [facility] [employer] 250 DO Work Phone: Tobacco use status CP b) No M [facility] [employer] 250 DO Work Phone: XR Spine Lumbar 4+ Views*on 03-29-2022 XR Spine Lumbar 4+ Views* FINDINGS: Minimal thoracolumbar scoliosis is present. Vertebral body heights are normal. Moderate to severe disc space reduction involves the thoracolumbar and lumbosacral junctions. End plate fusion at L2/3. Sclerosis involves posterior elements of the mid and distal lumbar spine; however, no spondylolysis or spondylolisthesis is seen. SI joints are normal for this age. No acute fracture is identified. Soft tissues are relatively unremarkable. Prominent aorto arterial calcifications, left common iliac arterial stent. IMPRESSION: 1. Diffuse arthritis, proximal lumbar fusion. 2. Normal alignment. Report reported and signed by Lakhwinder Chappell on 03/29/[address] [facility] PARATHYROID HORMONE- RELATED PEPTIDEon 10-05-2021 PTHrP (PTH-Related Peptide) <2.0 Normal [facility] Comment on above: Result Comment: This test was developed and its performance characteristics determined by [employer]. It has not been cleared or approved by the Food and Drug Administration. Reference Range: All Ages: <2.0 The PTHrP assay should not be used to exclude cancer or screen tumor patients for humoral hypercalcemia of malignancy (HHM). The results should always be assessed in conjunction with the patient's medical history, clinical examination, and other findings. If test results are clinically discordant, please contact the laboratory. Performed By: #### P THP #### [facility] [address] [place] [address] Dr. Chhaya De La Vega RESPIRATORY PANEL PLUSon Adenovirus Not detected Normal NOT DETECTED [facility] Comment on above: Performed By: #### R SPLUS #### [facility] [address] [place] [address] Dr. Chhaya Izaguirre. Parapertusis Not detected Normal NOT DETECTED [facility] Comment on above: Performed By: #### R SPLUS #### [facility] [address] [place] [address] Dr. Chhaya Izaguirre. Pertussis Not detected Normal NOT DETECTED [facility] Comment on above: Performed By: #### R SPLUS #### [facility] [address] [place] [address] Dr. Chhaya De La Vega Chlamydia Pneumoniae Not detected Normal NOT DETECTED [facility] Comment on above: Performed By: #### R SPLUS #### [facility] [address] [place] [address] Dr. Chhaya De La Vega Coronavirus 229E Not detected Normal NOT DETECTED [facility] Comment on above: Performed By: #### R SPLUS #### [facility] [address] [place] [address] Dr. Chhaya De La Vega Coronavirus HKU1 Not detected Normal NOT DETECTED [facility] Comment on above: Performed By: #### R SPLUS #### [facility] [address] [place] [address] Dr. Chhaya De La Vega Coronavirus NL63 Not detected Normal NOT DETECTED [facility] Comment on above: Performed By: #### R SPLUS #### [facility] [address] [place] [address] Dr. Chhaya De La Vega Coronavirus OC43 Not detected Normal NOT DETECTED [facility] Comment on above: Performed By: #### R SPLUS #### [facility] [address] [place] [address] Dr. Chhaya De La Vega Influenza A H1 2009 Not detected Normal NOT DETECTED [facility] Comment on above: Performed By: #### R SPLUS #### [facility] [address] [place] [address] Dr. Chhaya De La Vega Influenza A H3 Not detected Normal NOT DETECTED [facility] Comment on above: Performed By: #### R SPLUS #### [facility] [address] [place] [address] Dr. Chhaya De La Vega Influenza B Not detected Normal NOT DETECTED The [facility] Comment on above: Performed By: #### R SPLUS #### [facility] [address] [place] [address] Dr. Chhaya De La Vega Metapneumovirus Not detected Normal NOT DETECTED [facility] Comment on above: Performed By: #### R SPLUS #### [facility] [address] [place] [address] Dr. Chhaya De La Vega Mycoplas. Pneumoniae Not detected Normal NOT DETECTED [facility] Comment on above: Performed By: #### R SPLUS #### [facility] [address] [address] [address] Chhaya De La Vega Parainfluenza 1 Not detected Normal NOT DETECTED [facility] Comment on above: Performed By: #### R SPLUS #### [facility] [address] [place] [address] Dr. Chhaya De La Vega Parainfluenza 2 Not detected Normal NOT DETECTED [facility] Comment on above: Performed By: #### R SPLUS #### [facility] [address] [place] [address] Dr. Chhaya De La Vega Parainfluenza 3 Not detected Normal NOT DETECTED [facility] Comment on above: Performed By: #### R SPLUS #### [facility] [address] [place] [address] Dr. Chhaya De La Vega Parainfluenza 4 Not detected Normal NOT DETECTED [facility] Comment on above: Performed By: #### R SPLUS #### [facility] [address] [place] [address] Dr. Chhaya De La Vega Rhino/Enterovirus Detected Abnormal NOT DETECTED [facility] Comment on above: Performed By: #### R SPLUS #### [facility] [address] [place] [address] Dr. Chhaya De La Vega RP2 Header 1 RESPIRATORY PANEL: VIRUSES Normal [facility] Comment on above: Performed By: #### R SPLUS #### [facility] [address] [place] [address] Dr. Chhaya DE LEON Header 2 RESPIRATORY PANEL: BACTERIA Normal [facility] Comment on above: Performed By: #### R SPLUS #### [facility] [address] [place] [address] Dr. Chhaya De La Vega RSV Not detected Normal NOT DETECTED [facility] Comment on above: Performed By: #### R SPLUS #### [facility] [address] [place] [address] Dr. Chhaya De La Vega SARS-CoV-2 (COVID-19) RNA MICHELLE+probe Ql (Unsp spec) Not detected Normal NOT DETECTED [facility] Comment on above: Performed By: #### R SPLUS #### [facility] [address] [place] [address] Dr. Chhaya De La Vega CALCIUM 24 HR URINEon 2020 CALC, 24 HR UR 318.0 mg/24 hr Critically high 100.0-300.0 [facility] Comment on above: Performed By: #### C [id number] #### [facility] [address] [place] [address] Dr. Chhaya De La Vega UR CALCIUM 26.5 mg/dL Critically high 0.0-21.0 [facility] Comment on above: Performed By: #### C [id number] #### [facility] [address] [place] [address] Dr. Chhaya De La Vega UR TOT VOL 1200 ml/24 HR Normal [facility] Comment on above: Performed By: #### C [id number] #### [facility] [address] [place] [address] Dr. Chhaya De La Vega Performed By: #### C [id number] #### [facility] [address] [place] [address] Dr. Chhaya De La Vega CREA 24 HR URINEon CREA, 24 HR UR 1421.52 mg/24 hr Normal 1,000.00- 2,0 00.00 [facility] Comment on above: Performed By: #### C [id number] #### [facility] [address] [place] [address] Dr. Chhaya De La Vega URINE CREAT 118.46 mg/dL Normal 20.00-300.00 [facility] Comment on above: Performed By: #### C [id number] #### [facility] [address] [place] [address] Dr. Chhaya De La Vega PARATHYROID HORMONE PLUS Dash n 09-29-2021 Calcium [Mass/Vol] 9.8 mg/dL Normal 8.6-10.2 [facility] Comment on above: Performed By: #### P THCA #### [facility] [address] [place] [address] Dr. Chhaya De La Vega Intact PTH Comment Normal [facility] Comment on above: Result Comment: Inte rpretation Intact PTH Calcium (pg/mL) (mg/dL) Normal 15 - 65 8.6 - 10.2 Primary Hyperparathyroidism >65 >10.2 Secondary Hyperparathyroidism >65 <10.2 Non-Parathyroid Hypercalcemia <65 >10.2 Hypoparathyroidism <15 < 8.6 Non-Parathyroid Hypocalcemia 15 - 65 < 8.6 . Performed By: #### P THCA #### [facility] [address] [address] [address] Chhaya De La Vega PTH, Intact 66 pg/mL Critically high 15-65 [facility] Comment on above: Performed By: #### P THCA #### [facility] [address] [address] [address] Chhaya De La Vega PROTEIN ELECTROPHERESISon Albumin [Mass/Vol] 3.5 g/dL Normal 2.9-4.4 [facility] Comment on above: Performed By: #### P RTELEC #### [facility] [address] [address] [address] Chhaya De La Vega Albumin/Globulin [Mass ratio] 0.9 {ratio} Normal 0.7-1.7 [facility] Comment on above: Performed By: #### P RTELEC #### [facility] [address] [place] [address] Dr. Chhaya De La Vega Jcuqw-9-Meszsups 0.3 g/dL Normal 0.0-0.4 [facility] Comment on above: Performed By: #### P RTELEC #### [facility] [address] [place] [address] Dr. Chhaya De La Vega Jemxd-3-Jxjvaeyi 0.9 g/dL Normal 0.4-1.0 [facility] Comment on above: Performed By: #### P RTELEC #### [facility] [address] [place] [address] Dr. Chhaya De La Vega Beta Globulin 0.9 g/dL Normal 0.7-1.3 [facility] Comment on above: Performed By: #### P RTELEC #### [facility] [address] [place] [address] Dr. Chhaya De La Vega Gamma Globulin 1.7 g/dL Normal 0.4-1.8 [facility] Comment on above: Performed By: #### P RTELEC #### [facility] [address] [place] [address] Dr. Chhaya De La Vega Globulin (S) [Mass/Vol] 3.9 g/dL Normal 2.2-3.9 [facility] Comment on above: Performed By: #### P RTELEC #### [facility] [address] [place] [address] Dr. Chhaya De La Vega M-Sabino Comment: Normal Not Observed [facility] Comment on above: Result Comment: SPE shows asymmetrical gamma. Performed By: #### P RTELEC #### [facility] [address] [place] [address] Dr. Chhaya De La Vega PDF . Normal [facility] Comment on above: Performed By: #### P RTELEC #### [facility] [address] [place] [address] Dr. Chhaya De La Vega Please note: Comment Normal [facility] Comment on above: Result Comment: Prot ein electrophoresis scan will follow via computer, mail, or airborne and air delivery specialist delivery. Performed By: #### P RTELEC #### [facility] [address] [place] [address] Dr. Chhaya De La Vega Protein [Mass/Vol] 7.4 g/dL Normal 6.0-8.5 [facility] Comment on above: Performed By: #### P RTELEC #### [facility] [address] [place] [address] Dr. Chhaya De La Vega RENAL FUNCTION PANELon 09-27 Albumin [Mass/Vol] 3.5 g/dL Normal 3.5-5.0 [facility] Comment on above: Performed By: #### R ENAL #### [facility] [address] [place] [address] Dr. Chhaya De La Vega Calcium [Mass/Vol] 9.6 mg/dL Normal 8.4-10.2 [facility] Comment on above: Performed By: #### R ENAL #### [facility] [address] [place] [address] Dr. Chhaya De La Vega Chloride [Moles/Vol] 99 mmol/L Normal 98-107 [facility] Comment on above: Performed By: #### R ENAL #### [facility] [address] [place] [address] Dr. Chhaya De La Vega CO2 [Moles/Vol] 28.6 mmol/L Normal 22.0-30.0 [facility] Comment on above: Performed By: #### R ENAL #### [facility] [address] [address] [address] Chhaya De La Vega Creatinine [Mass/Vol] 1.51 mg/dL Critically high 0.66-1.25 [facility] Comment on above: Performed By: #### R ENAL #### [facility] [address] [address] [address] Chhaya De La Vega EGFR-AF TURKISH 56 mL/min/1.73m2 Critically low >=60 [facility] Comment on above: Performed By: #### R ENAL #### [facility] [address] [address] [address] Chhaya De La Vega EGFR-NON AF TURKISH 46 mL/min/1.73m2 Critically low >=60 [facility] Comment on above: Performed By: #### R ENAL #### [facility] [address] [address] [address] Chhaya De La Vega Glucose [Mass/Vol] 101 mg/dL Normal 74-106 [facility] Comment on above: Performed By: #### R ENAL #### [facility] [address] [address] [address] Chhaya De La Vega Phosphate [Mass/Vol] 2.9 mg/dL Normal 2.5-4.5 [facility] Comment on above: Performed By: #### R ENAL #### [facility] [address] [address] [address] Chhaya De La Vega Potassium [Moles/Vol] 4.1 mmol/L Normal 3.4-5.0 [facility] Comment on above: Performed By: #### R ENAL #### [facility] [address] [address] [address] Chhaya De La Vega Sodium [Moles/Vol] 136 mmol/L Critically low 137-145 [facility] Comment on above: Performed By: #### R ENAL #### [facility] [address] [address] [address] Chhaya De La Vega Urea nitrogen [Mass/Vol] 13.0 mg/dL Normal 9.0-20.0 [facility] Comment on above: Performed By: #### R ENAL #### [facility] [address] [place] [address] Dr. Chhyaa De La Vega VITAMIN D 25 OHon 09-27-2021 VIT D 25-OH 24.5 ng/mL Normal [facility] Comment on above: Performed By: #### C [id number] #### [facility] [address] [place] [address] Dr. Chhaya De La Vega VIT D RANGES SEE BELOW Normal [facility] Comment on above: Result Comment: <20 ng/mL Vit D deficient 20 - <30 ng/mL Vit D insufficient 30 - 100 ng/mL Vit D sufficient >100 ng/mL Potential Toxicity Performed By: #### C [id number] #### [facility] [address] [place] [address] Dr. Chhaya De La Vega XR DEXA BONE DENSITYon 09-27 XR DEXA BONE DENSITY EXAMINATION: XR DEX A BONE DENSITY, 09/27/2021 10:35 AM EST HISTORY: Chronic kidney disease COMPARISON: None. TECHNIQUE: Dual-energy X-ray absorptiometry (DEXA) bone density study performed for the axial skeleton. FINDINGS: SPINE ANALYSIS: Average bone mineral density is 1.262 g/cm2. T-score (standard deviation relative to young adult mean): 0.3 . HIP ANALYSIS: Lowest bone mineral density is within the left femoral trochanter, 0.748 g/cm2. T-score (standard deviation relative to young adult mean): -1.7 . IMPRESSION: World [employer] Classification: Osteopenia - Moderate Fracture Risk Electronically authenticated by: ARTI MALCOLM Date: 2021-09-27 11:20 Normal [facility] CBC AUTO DIFFon 02-02-2021 BASO # 0.1 103/ul Normal 0.0-0.1 [facility] Comment on above: Performed By: #### C BC #### [facility] [address] [place] [address] Niharika Leung Basophils/100 WBC (Bld) 0.5 % Normal 0.2-2.0 [facility] Comment on above: Performed By: #### C BC #### [facility] [address] [place] [address] Niharika Xochitl EO # 0.0 103/ul Normal 0.0-0.7 [facility] Comment on above: Performed By: #### C BC #### [facility] [address] [place], [place] [id number] Niharika Xochitl Eosinophils/100 WBC (Bld) 0.2 % Critically low 0.9-7.0 [facility] Comment on above: Performed By: #### C BC #### [facility] [address] [place] [address] Niharika Xochitl Erythrocyte distribution width (RBC) [Ratio] 13.9 % Normal 11.0-15.0 [facility] Comment on above: Performed By: #### C BC #### [facility] [address] [place] [address] Niharika Xochitl Hematocrit (Bld) [Volume fraction] 49.0 % Normal 42.0-54.0 [facility] Comment on above: Performed By: #### C BC #### [facility] [address] [place] [address] Niharika Xochitl Hemoglobin (Bld) [Mass/Vol] 16.1 g/dL Normal 14.0-18.0 [facility] Comment on above: Performed By: #### C BC #### [facility] [address] [place] [address] Niharika Xochitl IG # 0.09 10e3/ul Critically high 0.00-0.03 [facility] Comment on above: Performed By: #### C BC #### [facility] [address] [place] [address] Niharika Xochitl IG % 0.5 % Normal 0.0-0.5 [facility] Comment on above: Performed By: #### C BC #### [facility] [address] [place], [place] [id number] Niharika Xochitl LYMPH # 1.5 103/ul Normal 1.2-3.8 [facility] Comment on above: Performed By: #### C BC #### [facility] [address] [place], [place] [id number] Niharika Xochitl Lymphocytes/100 WBC (Bld) 8.6 % Critically low 20.5-60.0 [facility] Comment on above: Performed By: #### C BC #### [facility] [address] [place], [place] [id number] Niharika Leung MANUAL DIFF REQ NO Normal [facility] Comment on above: Performed By: #### C BC #### [facility] [address] [place], [place] [id number] Niharika Leung MCH (RBC) [Entitic mass] 27.6 pg Normal 25.9-34.0 [facility] Comment on above: Performed By: #### C BC #### [facility] [address] [place] [address] Niharika Leung MCHC (RBC) [Mass/Vol] 32.9 g/dL Normal 29.9-35.2 [facility] Comment on above: Performed By: #### C BC #### [facility] [address] [place] [address] Niharika Leung MCV (RBC) [Entitic vol] 84.0 fL Normal 80.0-94.0 [facility] Comment on above: Performed By: #### C BC #### [facility] [address] [place], [place] [id number] Niharika Leung MONO # 1.0 103/ul Critically high 0.3-0.8 [facility] Comment on above: Performed By: #### C BC #### [facility] [address] [place] [address] Niharika Willetten Monocytes/100 WBC (Bld) 6.1 % Normal 1.7-12.0 [facility] Comment on above: Performed By: #### C BC #### [facility] [address] [place], [place] [id number] Niharikaaurelio Willetten NEUT # 14.1 103/ul Critically high 1.4-6.5 [facility] Comment on above: Performed By: #### C BC #### [facility] [address] [place], [place] [id number] Niharika Xochitl Neutrophils/100 WBC (Bld) 84.1 % Critically high 43.0-75.0 [facility] Comment on above: Performed By: #### C BC #### [facility] [address] [place], [place] [address] Niharika Leung Platelet mean volume (Bld) [Entitic vol] 9.0 fL Critically low 9.5-13.5 [facility] Comment on above: Performed By: #### C BC #### [facility] [address] [place], [place] [address] Niharika Willetten PLT 330 103/ul Normal 150-450 [facility] Comment on above: Performed By: #### C BC #### [facility] [address] [place], [place] [address] Niharika Leung RBC 5.83 106/ul Normal 4.70-6.10 [facility] Comment on above: Performed By: #### C BC #### [facility] [address] [place], [place] [address] Niharika Leung WBC 16.8 103/ul Critically high 4.0-11.0 [facility] Comment on above: Performed By: #### C BC #### [facility] [address] [place] [address] ABD/PELVIS WO CONon 02-02 CT ABD/PELVIS WO CON EXAM: CT ABD/PELVIS WO CON 02/02/2021 1:16 AM EDT OH001 CLINICAL STATEMENT: UNSPECIFIED ABDOMINAL PAIN COMPARISON: 01/06/2020 TECHNIQUE: Helically acquired images were obtained of the abdomen and pelvis without IV contrast. Oral contrast was administered. AEC is utilized. 2-D reconstructed images are provided. FINDINGS: Cholecystectomy. Multiple bilateral renal cortical cysts measuring 3.4 cm on the right and 4.6 cm on the left. The right kidney is atrophic. Nonobstructive left renal calculi versus renal vascular calcifications measuring up to 3 mm. There There is no hydronephrosis or hydroureter. The upper abdominal solid organs are unremarkable. Surgery changes of the small bowel. There is no bowel obstruction or free air. There is no ascites. Atherosclerotic aortoiliac calcifications. Evidence of stable endovascular stent repair for abdominal aortic aneurysm. There is no retroperitoneal adenopathy. There is no appendicitis. Sigmoid diverticulosis without acute diverticulitis. There are no pelvic masses or loculated fluid collections. The lung bases are clear. There are no destructive bone lesions identified. IMPRESSION: Multiple bilateral renal cortical cysts measuring 3.4 cm on the right and 4.6 cm on the left. The right kidney is atrophic. Nonobstructive left renal calculi versus renal vascular calcifications measuring up to 3 mm. No hydronephrosis or hydroureter. Post surgical changes of the small bowel. Atherosclerotic aortoiliac calcifications. Evidence of stable endovascular stent repair for abdominal aortic aneurysm. 25Sigmoid diverticulosis without acute diverticulitis. FOLLOW-UP: Follow-up as clinically indicated. Dose reduction techniques were achieved by using automated exposure control and/or adjustment of mA and/or kV according to patient size and/or use of iterative reconstruction technique. Electronically authenticated by: LOREN CASTELLANOS Date: 2021-02-02 02:05 Normal [facility] PROF 14(COMP METB)on 021 Albumin [Mass/Vol] 4.7 g/dL Normal 3.5-5.0 [facility] Comment on above: Performed By: #### C [id number] #### [facility] [address] [place] [address] Dr. Chhaya De La Vega Albumin/Globulin [Mass ratio] 0.9 {ratio} Normal [facility] Comment on above: Performed By: #### C [id number] #### [facility] [address] [place] [address] Dr. Chhaya De La Vega ALP [Catalytic activity/Vol] 163 U/L Critically high 38-126 [facility] Comment on above: Performed By: #### C [id number] #### [facility] [address] [place] [address] Dr. Chhaya De La Vega ALT [Catalytic activity/Vol] 22 U/L Normal 21-72 [facility] Comment on above: Performed By: #### C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 (such as Xanax or Valium) ? Muscle relaxants (such as Soma or Flexeril) ? Hypnotics (such as Ambien or Lunesta) ? Other prescription opioids KNOW YOUR OPTIONS Talk to your health care provider about ways to manage your pain that don?t involve prescription opioids. Some of these options may actually work better and have fewer risks and side effects. Options may include: ? Pain relievers such as acetaminophen, ibuprofen, and naproxen ? Some medication that are also used for depression or seizures ? Physical therapy and exercise ? Cognitive behavioral therapy, a psychological, goal-directed approach, in which patients learn how to modify physical, behavioral, and emotional triggers of pain and stress. IF YOU ARE PRESCRIBED OPIOIDS FOR PAIN: ? Never take opioids in greater amounts or more often than prescribed. ? Follow up with your primary health care provider. o Work together to create a plan on how to manage your pain. o Talk about ways to help manage your pain that don?t involve prescription opioids. o Talk about any and all concerns and side effects. ? Help prevent misuse and abuse o Never sell or share prescription opioids. o Never use another person?s prescription opioids. ? Store prescription opioids in a secure place and out of reach of others (this may include visitors, children, friends, and family). ? Safely dispose of unused prescription opioids: Find your community drug take-back program or your pharmacy mail-back program, or flush them down the toilet, following guidance from the Food and Drug Administration (www.fda.gov/Drugs/Res ourcesForYou). ? Visit www.cdc.gov/drugoverdo se to learn about the risks of opioids abuse and overdose. ? If you believe you may be struggling with addiction, tell your health personal care attendant and ask for guidance or call [facility] National Helpline at 5-325-328-KIUL. m Source: [place] Department of Health and Human Services/Center for Disease Control & Prevention [facility] Medications Given: Medication Dose Route No medications found. Medication Information: Comment: Pharmacy Information: Thank you for choosing [facility] Patient Education Materials: Retinal Detachment, Care After Refer to this sheet in the next few weeks. These instructions provide you with information on caring for yourself after your procedure. Your caregiver may also give you more specific instructions. Your treatment has been planned according to current medical practices, but problems sometimes occur. Call your caregiver if you have any problems or questions after your procedure. HOME CARE INSTRUCTIONS ? Avoid strenuous activities for several weeks or as directed. ? Avoid activities in which you are bent over at the waist or your head is lower than your waist. ? Avoid straining, such as from coughing, or with urinating or having a bowel movement. Use a stool softener if needed. ? You develop new, unexplained problems or an increase of the problems which brought you to your caregiver. ? If medications which kill germs (antibiotics) or eye drops were prescribed, take as directed and for as long as directed. ? Keep appointments as directed. ? Only take tobz-edy-tlijuuz or prescription medicines for pain, discomfort, or fever as directed by your caregiver. SEEK MEDICAL CARE IF: ? You have redness, swelling, or increasing discharge from the eye. ? You have increased pain in the eye. ? You have a fever. ? You have changes in the vision of the affected eye. ? You have a change in vision such as light flashes, floaters (light or dark spots), lines or holes or clouding of your vision. Document Released: 04/21/2006 Document Revised: 07/23/2014 Document Reviewed: 08/28/2008 ExitCare? Patient Information ?2015 [employer]. This information is not intended to replace advice given to you by your health care provider. Make sure you discuss any questions you have with your health care provider. CELI Nolan MARK , have received the following patient education materials/instructions and have verbalized understanding: Patient Education Materials: Retinal Detachment, Care After Follow-up Instructions: With: Address: When: You have an appointment at 9:30 AM on Monday with the [facility] at their [place] office. In 2 days 04/13/2020 Patient Signature Date Clinician/Nurse Signature ___ Date 04/11/2020 23:00:45 Normal [facility] Progress Note-Nurseon 2019 Progress Note-Nurse pt verbalized understanding of discharge instructions et follow up appointment on Monday. [facility] Consent for Treatmenton 03-17 Consent for Treatment [id number] 0CD:127 [facility] Vital Signs Date Time Vital Sign Value Performing Clinician Facility 07-03-2024 10:24-0400 Body height 182.[address] [facility] 07-03-2024 10:24-0400 Body mass index (BMI) [Ratio] 25.6 kg/m2 [facility] 07-03-2024 10:24-0400 Body temperature 97.4 [degF] [facility] 07-03-2024 10:24-0400 Body weight 85.[address] [facility] 07-03-2024 10:24-0400 Diastolic blood pressure 62 mm[Hg] [facility] 07-03-2024 10:24-0400 Heart rate 69 /min [facility] 07-03-2024 10:24-0400 Respiratory rate 20 /min [facility] 07-03-2024 10:24-0400 SaO2% (BldA) [Mass fraction] 97 % [facility] 07-03-2024 10:24-0400 Systolic blood pressure 97 mm[Hg] [facility] 06-06-2024 11:26-0400 Body height 182.[address] [facility] 06-06-2024 11:26-0400 Body mass index (BMI) [Ratio] 26.6 kg/m2 [facility] 06-06-2024 11:26-0400 Body temperature 97.7 [degF] [facility] 06-06-2024 11:26-0400 Body weight 88.[address] [facility] 06-06-2024 11:26-0400 Diastolic blood pressure 59 mm[Hg] [facility] 06-06-2024 11:26-0400 Heart rate 83 /min [facility] 06-06-2024 11:26-0400 Respiratory rate 18 /min [facility] 06-06-2024 11:26-0400 SaO2% (BldA) [Mass fraction] 98 % [facility] 06-06-2024 11:26-0400 Systolic blood pressure 87 mm[Hg] [facility] 02-22-2024 11:23-0400 Body height 182.88 cm MD Juanita Martinez Work Phone: [facility] 02-22-2024 11:23-0400 Body mass index (BMI) [Ratio] 28.7 kg/m2 MD Juanita Martinez Work Phone: [facility] 02-22-2024 11:23-0400 Body temperature 96.2 [degF] MD Juanita Martinez Work Phone: [facility] 02-22-2024 11:23-0400 Body weight 96.16 kg MD Juanita Martinez Work Phone: [facility] 02-22-2024 11:23-0400 Diastolic blood pressure 70 mm[Hg] MD Juanita Martinez Work Phone: [facility] 02-22-2024 11:23-0400 Heart rate 95 /min MD Juanita Martinez Work Phone: [facility] 02-22-2024 11:23-0400 Respiratory rate 18 /min MD Juanita Martinez Work Phone: [facility] 02-22-2024 11:23-0400 SaO2% (BldA) [Mass fraction] 98 % MD Juanita Martinez Work Phone: [facility] 02-22-2024 11:23-0400 Systolic blood pressure 112 mm[Hg] MD Juanita Martinez Work Phone: [facility] 01-25-2024 16:01-0400 Diastolic blood pressure 84 mm[Hg] [facility] 01-25-2024 16:01-0400 Heart rate 97 /min [facility] 01-25-2024 16:01-0400 SaO2% (BldA) [Mass fraction] 95 % [facility] 01-25-2024 16:01-0400 Systolic blood pressure 120 mm[Hg] [facility] 03-16-2023 10:20-0400 Body height 182.88 cm Magy Emiliano Other [facility] Other 03-16-2023 10:20-0400 Body mass index (BMI) [Ratio] 30.08 kg/m2 Magy Emiliano Other [facility] Other 03-16-2023 10:20-0400 Body temperature 96.1 [degF] Magy Emiliano Other [facility] Other 03-16-2023 10:20-0400 Body weight 100.61 kg Magy Emiliano Other [facility] Other 03-16-2023 10:20-0400 Diastolic blood pressure 50 mm[Hg] Magy Emiliano Other [facility] Other 03-16-2023 10:20-0400 Respiratory rate 18 /min Magy Emiliano Other [facility] Other 03-16-2023 10:20-0400 SaO2% (BldA) [Mass fraction] 92 % Magy Emiliano Other [facility] Other 03-16-2023 10:20-0400 Systolic blood pressure 100 mm[Hg] Magy Emiliano Other [facility] Other 06-01-2022 14:39-0400 Body height 182.88 cm Juanita Tiwari Juan Work Phone: [facility] 250 DO Work Phone: 06-01-2022 14:39-0400 Body mass index (BMI) [Ratio] 29.97 kg/m2 Rugen Karie Juan Work Phone: [facility] [facility] [facility] DO Work Phone: 06-01-2022 14:39-0400 Body surface area Derived from formula 2.22 m2 Rugen Karie Mcdermitt Work Phone: [facility] 250 DO Work Phone: 06-01-2022 14:39-0400 Body weight 100.25 kg Rugen aKrie Juan Work Phone: [facility] 250 DO Work Phone: 06-01-2022 14:39-0400 Diastolic blood pressure 64 mm[Hg] Brandonen Kaire Mcdermitt Work Phone: [facility] 250 DO Work Phone: 06-01-2022 14:39-0400 Heart rate 83 /min Juanita Tiwari Mcdermitt Work Phone: [facility] 250 DO Work Phone: 06-01-2022 14:39-0400 Systolic blood pressure 130 mm[Hg] Brandonen Karie Mcdermitt Work Phone: [facility] 250 DO Work Phone: 04-21-2022 11:20-0400 Body height 182.88 cm Magy Emiliano Other [facility] Other 04-21-2022 11:20-0400 Body mass index (BMI) [Ratio] 29.45 kg/m2 Magy Emiliano Other [facility] Other 04-21-2022 11:20-0400 Body temperature 96.5 [degF] Magy Emiliano Other [facility] Other 04-21-2022 11:20-0400 Body weight 98.52 kg Magy Emiliano Other [facility] Other 04-21-2022 11:20-0400 Diastolic blood pressure 60 mm[Hg] Magy Emiliano Other [facility] Other 04-21-2022 11:20-0400 Respiratory rate 18 /min Magy Emiliano Other [facility] Other 04-21-2022 11:20-0400 SaO2% (BldA) [Mass fraction] 94 % Magy Emiliano Other [facility] Other 04-21-2022 11:20-0400 Systolic blood pressure 120 mm[Hg] Magy Emiliano Other [facility] Other Encounters Encounter Date Encounter Type Care Provider Facility Start: 07-03-2024 End: 07-03-2024 ambulatory [facility] Work Phone: Start: 07-03-2024 End: 07-03-2024 Patient encounter procedure [facility] Work Phone: Start: 06-06-2024 End: 06-06-2024 ambulatory [facility] Work Phone: Start: 06-06-2024 End: 06-06-2024 Patient encounter procedure [facility] Work Phone: Start: 06-04-2024 End: 06-04-2024 ambulatory JUANITA MARTINEZ Not Available Start: 06-03-2024 Non-patient / Non-visit [facility] [employer] Work Phone: Start: 05-12-2024 End: 05-13-2024 Non-patient / Non-visit [facility] Work Phone: Start: 03-25-2024 End: 03-25-2024 ambulatory RUGEN M JUAN Not Available Start: 03-06-2024 End: 03-06-2024 ambulatory Rugen M Juan Facility:[facility] Start: 03-06-2024 End: 03-06-2024 ambulatory MD Juanita Martinez Work Phone: [facility] Work Phone: Start: 03-06-2024 End: 03-06-2024 Patient encounter procedure MD Juanita Martinez Work Phone: [facility] [place] Work Phone: Start: 02-27-2024 End: 02-27-2024 ambulatory RUGEN M JUAN Not Available Start: 02-22-2024 End: 02-22-2024 ambulatory MD Juanita Martinez Work Phone: [facility] Work Phone: Start: 02-22-2024 End: 02-22-2024 Patient encounter procedure MD Juanita Martinez Work Phone: [facility] Work Phone: Start: 02-20-2024 End: 02-20-2024 ambulatory RUGEN M JUAN Not Available Start: 02-15-2024 End: 02-15-2024 ambulatory Magy Emiliano Facility:[facility] Start: 02-15-2024 End: 02-15-2024 ambulatory MD Juanita Martinez Work Phone: [facility] Work Phone: Start: 02-15-2024 End: 02-15-2024 Patient encounter procedure MD Juanita Martinez Work Phone: [facility] [place] Work Phone: Start: 02-14-2024 End: 02-14-2024 ambulatory Magy Emiliano Facility:[facility] Start: 02-14-2024 End: 02-14-2024 Patient encounter procedure MD Juanita Martinez Work Phone: [facility] [place] Work Phone: Start: 01-26-2024 End: 01-26-2024 ambulatory Magy Emiliano Facility:[facility] Start: 01-26-2024 End: 01-26-2024 ambulatory MD Juanita Martinez Work Phone: [facility] Work Phone: Start: 01-26-2024 End: 01-26-2024 Patient encounter procedure MD Juanita Martinez Work Phone: [facility] [place] Work Phone: Start: 01-25-2024 End: 01-25-2024 ambulatory [facility] Work Phone: Start: 01-25-2024 End: 01-25-2024 Patient encounter procedure [facility] Nephrology Work Phone: Start: 01-17-2024 Non-patient / Non-visit MD Brandon Martinez Work Phone: [facility] [employer] Work Phone: Start: 01-04-2024 End: 01-04-2024 ambulatory JUANITA MARTINEZ Not Available Start: 03-16-2023 End: 03-16-2023 ambulatory Magy Emiliano Other [facility] [employer] Other Start: 03-16-2023 Office outpatient vi sit 25 minutes Magy Emiliano [facility] Start: 06-01-2022 Office consultation new/estab patient 60 min Juanita Martinez Work Phone: [facility] 250 DO Work Phone: Start: 06-01-2022 ambulatory Rashaad Stephens II Facility: Start: 05-30-2022 ambulatory Rashaad Stephens II Faci lity:[facility] Start: 04-21-2022 End: 04-21-2022 ambulatory Magy Cummings Other [employer] Other Start: 04-21-2022 Office outpatient vi sit 15 minutes Magylara Cummings [facility] Start: 10-05-2021 End: 10-05-[address] JUANITA MARTINEZ Facility:[facility] Start: 09-29-2021 End: 09-29-2021 ambulatory MARKEL BELL Facility:[facility] Start: 09-27-2021 End: 09-28-2021 ambulatory MARKEL BELL Facility:[facility] Start: 02-02-2021 End: 02-02-[address] CHAR VILLASENOR Facility:[facility] Start: 01-05-2021 End: 01-06-[address] JUANITA MARTINEZ Facility:[facility] Start: 12-14-2020 End: 12-15-[address] JUANITA MARTINEZ Facility:[facility] Procedures Date Procedure Procedure Detail Performing Clinician Cataract surgery Rugen M Ald a Work Phone: Cholecystectomy Rugen M Juan Work Phone: Endarterectomy Rugen M Juan Work Phone: Comment on above: Right carotid; Femoral endarterectomy Rugen M Mcdermitt Work Phone: Comment on above: Right- 05/11/2022- 3 stents placed; Hemorrhoidectomy Rugen M Ald a Work Phone: Placement of stent Rugen M A lda Work Phone: Procedure on back Rugen M Al da Work Phone: 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 Rugen M Juan Work Phone: Repair of retina for retinal detachment Rugen M Juan Work Phone: Small intestine excision Rug en M Juan Work Phone: Total colonoscopy Rugen M Al da Work Phone: Comment on above: -; Plan of Treatment Date Care Activity Detail Author Start: 01-26-2024 [facility] Start: 01-26-2024 Immunofixation for Urine [facility] Albumin [Mass/volume ] in Serum or Plasma [facility] Albumin/Globulin ratio [facility] Electrophoresis: [id number] [facility] Electrophoresis: [id number] [facility] Electrophoresis: beta-globulin [facility] Electrophoresis: gamma globulin [facility] Globulin [Mass/volume] in Serum [facility] IgA [Mass/volume] in Serum or Plasma [facility] IgG [Mass/volume] in Serum or Plasma [facility] IgM [Mass/volume] in Serum or Plasma [facility] Immunofixation for Urine [facility] [place] light chains.f ree [Mass/volume] in Serum [facility] [place] light chains.f ree/Lambda light chains.free [Mass Ratio] in Serum [facility] Lambda light chains. free [Mass/volume] in Serum or Plasma [facility] Protein [Mass/volume ] in Serum or Plasma [facility] Renal function 2000 panel - Serum or Plasma [facility] Renal function 1999 panel - Serum or Plasma [facility] Renal function 1999 panel - Serum or Plasma [facility] Serum immunofixation [facility] Immunizations Immunization Date Immunization Notes Care Provider Fa charleen 09-01-2021 Pfizer-BioNTech COVI D-19 Vacc 30 MCG/0.3ML Intramuscular Suspension Juanita Martinez Work Phone: [facility] 250 DO Work Phone: 07-19-2021 Fluzone High-Dose Quadrivalent 0.7 ML Intramuscular Suspension Prefilled Syringe Juanita Tiwari Juan Work Phone: [facility] 250 DO Work Phone: 01-05-2021 Pfizer-BioNTech COVI D-19 Vacc 30 MCG/0.3ML Intramuscular Suspension Juanita Tiwari Juan Work Phone: [place] [address] DO Work Phone: 12-14-2020 Pfizer-BioNTunc health COVI D-19 Vacc 30 MCG/0.3ML Intramuscular Suspension Rugen M Juan Work Phone: [place] [address] DO Work Phone: 08-08-2020 Fluad Quadrivalent 0 .5 ML Intramuscular Prefilled Syringe Brandonen M Juan Work Phone: [place] [address] DO Work Phone: 10-01-2019 zoster vaccine recombinant Rugen M Juan Work Phone: [place] [address] DO Work Phone: 07-17-2019 pneumococcal conjuga te vaccine, 13 valent Rugen M Juan Work Phone: [place] [address] DO Work Phone: 07-17-2019 Seasonal trivalent influenza vaccine, adjuvanted, preservative free Rugen M Juan Work Phone: [place] [address] DO Work Phone: 07-17-2019 zoster vaccine recombinant Rugen M Juan Work Phone: [place] [address] DO Work Phone: 05-23-2019 tetanus toxoid, redu misty diphtheria toxoid, and acellular pertussis vaccine, adsorbed Rugen M Juan Work Phone: [place] [address] DO Work Phone: 07-24-2018 influenza, high dose seasonal, preservative-free Rugen M Mcdermitt Work Phone: [place] [address] DO Work Phone: 07-18-2017 influenza, injectabl e, quadrivalent, contains preservative Rugen M Mcdermitt Work Phone: [place] [address] DO Work Phone: 07-18-2016 influenza, injectabl e, quadrivalent, preservative free Rugen M Mcdermitt Work Phone: [facility] 250 DO Work Phone: 07-17-2015 influenza, seasonal, injectable, preservative free Rugen M Juan Work Phone: [place] [address] DO Work Phone: 07-30-2012 pneumococcal polysaccharide vaccine, 23 valent Rugen M Juan Work Phone: [place] [address] DO Work Phone: Payers Date Payer Category Payer Medicare [id number] 2016 Medicare [id number] 1959 Medicare [id number] 1959 Self-pay 1959 Unknown [id number] 1951 Unknown [id number] 2.16.84 [id number] 1951 Unknown [id number] .16.84 [id number] 1951 Unknown [id number] 2.16.84 0.1.956655.3.579.2.593 1951 Unknown [id number] 2.16.84 0.1.728111.3.579.2.593 1951 Unknown [id number] 2.16. [id number] 1951 Unknown [id number] 2.16.84 0.1.213950.3.579.2.1259 1951 Unknown [id number] 2.16.84 0.1.869570.3.579.2.1259 1951 Unknown [id number] 2.16.84 0.1.127946.3.579.2.1259 1951 Unknown [id number] 2.16.84 0.1.704116.3.579.2.1259 1951 Unknown [id number] 2.16.84 0.1.212973.3.579.2.1259 Unknown [id number] 2.16.84 0.1.555802.3.579.2.593 Unknown [id number] 2.16.84 0.1.982333.3.579.2.593 Unknown Unknown [id number] 2.16.8 40.1.444522.3.579.2.531 Unknown [id number] 2.16.8 40.1.822840.3.579.2.531 Unknown [id number] 2.16.8 40.1.335824.3.579.2.531 Unknown [id number] 2.16.8 40.1.109792.3.579.2.531 Social History Date Type Detail Facility Unknown if ever smoked [facility] Other Sex Assigned At Sex Assigned At Bir th [facility] Other Former smoker Former smoker [facility] [address] [place] Work Phone: Comment on above: Quit in 2014; 3 cups of coffee pola ly; Start: 1950 Sex Assigned At Male F [facility] Start: 02-22-2024 Tobacco smoking status ALIS Ex-smoker (finding) [facility] Clinical Notes 04-13-2022 to 03-16-2023 Note Date & Type Note Facility 03-16-2023 Evaluation note Encounter Date Diagnosis Assessment Notes Mar, Chronic kidney disease, stage 3 unspecified (ICD-10 - N18.30) He has a longstanding CKD likely due to the hypertension and renovascular atherosclerotic disease. His most recent serum creatinine 1.4 mg/dL. His renal function has declined either due to the progression of CKD or hemodynamic changes. I discussed with him the importance of good HTN control to slow down the progression of CKD. 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 He appears to be euvolemic. Continue current medications including lisinopril and amlodipine Mar, Atrophic kidney (ICD-10 - N26.1) He has atrophic right kidney due to the atherosclerotic renal disease. Mar, Nephrolithiasis (ICD-10 - N20.0) He denies any passage of the kidney stones. I advised him to adequately hydrate himself. Mar, Hyperparathyroidism (ICD-10 - E21.3) He has a secondary hyperparathyroidism likely due to the CKD but his calcium, phosphorus and vitamin D are within the goal. Continue oral vitamin D. He follows with Dr. Bell as well. Mar, Dyslipidemia (ICD-10 - E78.5) Continue statins. Monitor LFTs and lipid profile [facility] Other 07-07-2022 Evaluation note* Encounter Date Diagnosis Assessment Notes Treatment Notes Treatment Clinical Notes Apr, Chronic kidney disea se, stage 3 unspecified (ICD-10 - N18.30) He has a longstanding CKD likely due to the hypertension and renovascular atherosclerotic disease with baseline creatinine 1.3 mg/dL. I discussed with him the importance of good HTN control to slow down the progression of CKD.I explained to him potential risk of MARIBEL due to the contrast exposure..He has no absolute contraindication for contrast studies. I have advised him to adequately hydrate himself for MARIBEL prophylaxis. Apr, Kade tilley w cr kid I-IV (ICD-10 - I12.9) Blood pressures controlled. He appears to be euvolemic. Continue current medications including lisinopril and amlodipine Apr, Atrophic kidney (ICD -10 - N26.1) He has atrophic right kidney due to the atherosclerotic renal disease. Apr, Nephrolithiasis (ICD -10 - N20.0) He denies any passage of the kidney stones. I advised him to adequately hydrate himself. Apr, Hypercalcemia (ICD-1 0 - E83.52) His calcium is back to normal. Apr, Hyperparathyroidism (ICD-10 - E21.3) He had hypercalcemia with hyperparathyroidism. He was seen by the endocrine and was started on vitamin D. His calcium is back to normal. [facility] Other 06-29-2022 NotePROCEDURE: [employer] HDXT 1.5 Sagittal T1, T2, STIR and axial T1 and T2 contiguous and cone down images through the lumbar spine were performed with and without contrast administration. HISTORY: Right leg pain with numbness x 4 months. Correlation made with recent lumbar spine plain film of March 29, 2022. FINDINGS: Normal lumbar vertebral body height with mild central end plate depressions. No bone marrow edema within the vertebral bodies of the posterior elements. L2-3 end plate fusion. No significant soft tissue inflammatory signal. No abnormal enhancement. Unremarkable paravertebral soft tissues. Bilateral renal benign 4.0-5.0 cm simple cysts, mild to moderate reduction right renal cortical volume compared to the left. Normal conus medullaris and filum terminale. T12-L1 through L2-3: No significant disc herniation, spinal canal or neuroforaminal stenosis. L3-4: No disc herniation, spinal canal or neuroforaminal stenosis. Broad based left mid and exit neuroforaminal zone annular tear. Bilateral facet arthropathy. L4-5: Normal disc volume. Broad based disc bulging, spinal canal and both neuroforaminal zones. Bilateral facet arthropathy. Left exit neuroforaminal zone annular tear. No spinal canal stenosis. Minimal bilateral exit neuroforaminal zone stenosis. L5-S1: Moderate to severe disc space loss. No spinal canal stenosis. Bilateral facet arthropathy. Mild left mid and exit neuroforaminal stenosis. IMPRESSION: 1. No significant spinal canal or neuroforaminal stenosis. 2. Lower lumbar facet arthropathy, no soft tissue inflammatory signal or abnormal enhancement. 3. Reduced right renal size compared to the left, no mass or evidence of obstruction. Findings may represent unilateral right renal arterial stenosis. Report reported and signed by Lakhwinder Chappell on 04/13/2022 [id number] SpecialistChief complaint Narrative - ReportedCHAR ALATORRE is being seen for a consultation for Mcdermitt- Vasculopath.[facility] 250 DO Work Phone: Evaluation noteNo assessment information available [facility] Work Phone: Evaluation note* Diagnosis Onset Date Resolution Status Atrophic kidney acute 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 acu te CKD (chronic kidney disease) stage 3, GFR 30-59 ml/min acute Hyperlipidemia acute Hyperparathyroidism acute Nephrolithiasis acute Proteinuria acute [facility] Work Phone: Evaluation note* Diagnosis Onset Date Resolution Status Atrophic kidney acute 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 acu te CKD (chronic kidney disease) stage 3, GFR 30-59 ml/min acute Hyperlipidemia acute Hyperparathyroidism acute Hypokalemia acute Nephrolithiasis acute Proteinuria acute [facility] Work Phone: Evaluation note* Diagnosis Onset Date Resolution Status Atrophic kidney acute 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 acu te CKD (chronic kidney disease) stage 3, GFR 30-59 ml/min acute Hyperlipidemia acute Hyperparathyroidism acute Hypokalemia acute Nephrolithiasis acute Proteinuria acute Atrophic kidney acute 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 acu te CKD (chronic kidney disease) stage 3, GFR 30-59 ml/min acute Glucosuria acute Hyperlipidemia acute Hyperparathyroidism acute Hypokalemia acute Nephrolithiasis acute Proteinuria acute [facility] Work Phone: Evaluation note* Diagnosis Onset Date Resolution Status Atrophic kidney acute 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 acu te CKD (chronic kidney disease) stage 3, GFR 30-59 ml/min acute Glucosuria acute Hyperlipidemia acute Hyperparathyroidism acute Hypokalemia acute Nephrolithiasis acute Proteinuria acute H/O cardiac catheterization noneactive H/O heart artery stent nonea ctive [facility] Work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
== END 2024-07-10 20:55 | disposition home or self-care (01) ==
LOC: SLEEP 20:54
PROVIDERS: PCP Family Medicine; Visit Provider Family Medicine
DX: G47.33 Obstructive sleep apnea (adult) (pediatric) (principal); I25.10 Atherosclerotic heart disease of native coronary artery without angina pectoris; I27.20 Pulmonary hypertension, unspecified; I11.0 Hypertensive heart disease with heart failure; I50.9 Heart failure, unspecified; J44.9 Chronic obstructive pulmonary disease, unspecified; G47.00 Insomnia, unspecified
CPT/HCPCS: 95810

== ENCOUNTER 2024-08-19 20:47 | Outpatient (OUT) | payer MEDICARE, SELFPAY | END 2024-08-19 20:48 | disposition home or self-care (01) | LOC: SLEEP 20:47 | PROVIDERS: PCP Family Medicine; Visit Provider Family Medicine | DX: G47.33 Obstructive sleep apnea (adult) (pediatric) (principal); F51.01 Primary insomnia; I27.20 Pulmonary hypertension, unspecified ==

== ENCOUNTER 2024-10-23 07:04 | Outpatient (RCR) | payer MEDICARE, SELFPAY ==
--- NOTE | 2024-06-25 | CR1_ITS ---
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
--- NOTE | 2024-06-25 15:07 | PC.NURSE ---
-Cardiac Rehab Orientation - The following information was reviewed with the patient during Orientation: [x ] 1. Program rights and responsibilities [ x] 2. Attendance Policy [ x 3. Patients insurance coverage and copayment [ x] 4. Patients current medication list, and purpose for medications [ x] 5. Patients Qualifying diagnosis and procedure history [x ] 6. Patient health history Patients completed the following forms during Orientation: [ x] 1. Knowledge Test [x ] 2. PHQ 9 [x ] 3. SF 36 [ x] 4. Rate your plate [ ] 5. COPD Assessment [ ] 6. Tobacco Use and Dependence Questionnaire Additional Comments: Patient and attended orientation today. Patient is scheduled for his first appointment on 06-27-24.
--- NOTE | 2024-06-27 11:51 | CR1_ITS ---
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
--- NOTE | 2024-07-22 07:41 | CR1_ITS ---
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
--- NOTE | 2024-08-21 12:54 | CR1_ITS ---
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
--- NOTE | 2024-09-19 08:28 | CR1_ITS ---
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
--- NOTE | 2024-10-22 11:14 | CR1_ITS ---
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
--- NOTE | 2024-11-05 10:34 | PC.NURSE ---
Called to out reach patient and spoke with patients . Since patients last visit here he has been hospitalized twice. Currently he is on home O2 continuously. He is changing cardiologists to [facility] and will be seen 11/19/24. At this time family thinks home health care will be best as patient reports shortness of breath and the walk to the bathroom to be taxing . We will follow up after that cardiology appointment to see how patient is doing.
--- NOTE | 2024-11-12 08:42 | CR1_ITS ---
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
== END 2024-11-12 08:42 | disposition home health service, planned readmission (86) ==
LOC: CR 07:04
PROVIDERS: PCP Family Medicine
DX: Z95.5 Presence of coronary angioplasty implant and graft (principal)
CPT/HCPCS: 93798

== ENCOUNTER 2024-11-07 13:12 | Inpatient (IN) | payer MEDICARE, SELFPAY ==
[2024-11-07] VITALS (13 sets, daily range): BP systolic 118–125; BP diastolic 79–90; PULSE 52–88; TEMP 36.4–36.5; O2SAT 93–100; BMI 23.6; BMI 24.9
--- NOTE | 2024-11-07 13:25 | CT_ITS ---
The [address] [address] Patient Name: CHAR ALATORRE MRN: [id number] date: 1950 Sex: M Assigned Patient Location: ED.MAIN Current Patient Location: ER Accession/Order Number: [id number] Exam Date: 11/07/2024 13:45 Report Date: 11/07/2024 14:45 At the request of: CECILIA TAPIA Procedure: CT cervical spine wo con EXAM: CT cervical spine wo con CLINICAL INDICATION: Fall COMPARISON: None. TECHNIQUE: CT scanning of the cervical spine was performed in the axial plane. Coronal and sagittal reconstructed images were performed and viewed. FINDINGS: No acute fracture. Straightening of the cervical spine. Grade 1 anterolisthesis of C3 on C4. Moderate to severe multilevel degenerative disc and facet disease. The prevertebral soft tissues are unremarkable. 1.3 cm hypoattenuating left thyroid lobe nodule.. CT/CT cervical spine wo con IMPRESSION: No acute fracture. Electronically authenticated by: JORDYN KHALIL Date: 11/07/2024 14:45
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
--- NOTE | 2024-11-07 13:25 | CT_ITS ---
The [address] [address] Patient Name: CHAR ALATORRE MRN: [id number] date: 1950 Sex: M Assigned Patient Location: ED.MAIN Current Patient Location: ER Accession/Order Number: [id number] Exam Date: 11/07/2024 13:45 Report Date: 11/07/2024 14:47 At the request of: CECILIA TAPIA Procedure: CT head/brain wo con EXAM: CT head/brain wo con HISTORY: Fall, injury COMPARISON: CT from 04/11/2020 TECHNIQUE: CT head/brain wo con FINDINGS: There is no acute infarction, hemorrhage, or cerebral edema. There is no intracranial mass or hydrocephalus. Moderate diffuse cerebral atrophy, age-appropriate. Areas of encephalomalacia within both cerebral hemispheres likely represent remote infarcts. More generalized periventricular and subcortical white matter change is likely due to microangiopathy. There is no acute osseous abnormality. Incidental note of mario cisterna magna. The paranasal sinuses and mastoid air cells are clear. CT/CT head/brain wo con IMPRESSION: No acute intracranial abnormality. Chronic changes as above. Electronically authenticated by: PERRY DIALLO Date: 11/07/2024 14:47
--- NOTE | 2024-11-07 13:41 | ECG_ITS ---
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
[2024-11-07 13:48] LABS: Basophils Absolute Auto 0.1 10^3/uL (0.0-0.1); Basophils Percent Auto 1.1 % (0.2-2.0); Eosinophils Percent Auto 0.5 % (0.9-7.0); Hematocrit 33.4 % (42.0-54.0); Immature Granulocytes Abs Auto 0.02 10^3/uL (0.00-0.03); Immature Granulocytes Pct Auto 0.3 % (0.0-0.5); Lymphocytes Absolute Auto 1.3 10^3/uL (1.2-3.8); Lymphocytes Percent Auto 16.6 % (20.5-60.0); Mean Corpuscular HGB Conc 29.9 g/dL (29.9-35.2); Mean Corpuscular Hemoglobin 23.4 pg (25.9-34.0); Mean Corpuscular Volume 78.2 fL (80.0-94.0); Mean Platelet Volume 9.4 fL (9.5-13.5); Monocytes Absolute Auto 0.7 10^3/uL (0.3-0.8); Monocytes Percent Auto 9.6 % (1.7-12.0); Neutrophils Absolute Auto 5.4 10^3/uL (1.4-6.5); Neutrophils Percent Auto 71.9 % (43.0-75.0); Platelet Count 270 10^3/uL (150-450); Red Blood Count 4.27 10^6/uL (4.70-6.10); Red Cell Distribution Width 17.4 % (11.0-15.0); White Blood Count 7.6 10^3/uL (4.0-11.0)
[2024-11-07 14:04] LABS: Alanine Aminotransferase 138 U/L (16-63); Albumin Globulin Ratio 0.6; Albumin Level 2.4 g/dL (3.4-5.0); Alkaline Phosphatase 220 U/L (46-116); Anion Gap 8.9; Aspartate Amino Transferase 98 U/L (15-37); BUN Creatinine Ratio 13.4; Bilirubin Total 1.2 mg/dL (0.2-1.0); Calcium 9.4 mg/dL (8.5-10.1); Carbon Dioxide 29.8 mmol/L (21.0-32.0); Chloride 98 mmol/L (98-107); Estimated GFR (African America 29 (>=60 mL/min/1.73m^2); Estimated GFR (Non-African Ame 24 (>=60 mL/min/1.73m^2); Globulin 4.3 g/dL; Glucose 108 mg/dL (74-106); Potassium 3.7 mmol/L (3.5-5.1); Sodium 133 mmol/L (136-145); Total Protein 6.7 g/dL (6.4-8.2)
--- NOTE | 2024-11-07 14:58 | XR_ITS ---
[facility] [id number] Patient Name: CHAR ALATORRE MRN: [id number] date: 1950 Sex: M Assigned Patient Location: ER Current Patient Location: ER Accession/Order Number: [id number] Exam Date: 11/07/2024 15:05 Report Date: 11/07/2024 15:28 At the request of: CECILIA TAPIA Procedure: XR chest 1V EXAM: XR chest 1V REASON FOR EXAM: Weakness. TECHNIQUE: Single portable view the chest. COMPARISON: [facility], most recent 05/13/2024. FINDINGS: Perihilar opacities and peribronchial thickening favors represent reactive and/or small airway disease. No focal pneumonia. Heart size is stable. No pleural effusion or pneumothorax. Osseous structures are without acute abnormality XR/XR chest 1V IMPRESSION: Reactive and/or small airway disease without focal pneumonia Electronically authenticated by: ALEKSANDRA SHAW Date: 11/07/2024 15:28
[2024-11-07 16:07] LABS: Bilirubin Urine NEGATIVE (NEGATIVE); Blood Urine NEGATIVE (NEGATIVE); Clarity Urine CLEAR (CLEAR); Color Urine LT. YELLOW (YELLOW); Glucose Urine UA >=1000 mg/dL (NEGATIVE); Ketones Urine NEGATIVE (NEGATIVE); Leukocyte Esterase Urine NEGATIVE (NEGATIVE); Nitrite Urine NEGATIVE (NEGATIVE); Protein Urine 100 mg/dL (NEG/TRACE); Specific Gravity Urine 1.015 (1.005-1.025)
[2024-11-07 16:09] LABS: Urine Microscopic Indicated YES
[2024-11-07 16:15] LABS: Bacteria Urine NONE SEEN #/HPF (NONE SEEN); Crystals Seen? None Seen #/HPF (None Seen); Mucus Urine NONE SEEN (NONE SEEN); RBC Urine NONE SEEN #/HPF (0-2); Squamous Epithelial Cell Urine RARE #/LPF (NONE/RARE); WBC Urine NONE SEEN #/HPF (NONE SEEN)
[2024-11-07 16:16] LABS: Cast Seen? SEEN #/LPF (NONE SEEN); Hyaline Casts Urine RARE
--- OUTSIDE RECORDS SUMMARY | 2024-11-07 17:13 | XMS_ITS | CCD ---
Author Organization [facility] Care Team Providers Care Sight Mounter Name Role Phone JUAN, DR ANDERSON Primary Care Unavailable REQUEST, DR HILL LISTED Admitting Unavaila ble REQUEST, DR HILL LISTED Attending Unavaila ble REQUEST, DR HILL LISTED Consulting Unavaila ble JUAN, DR ANDERSON Primary Care Unavailable REQUEST, DR HILL LISTED Admitting Unavaila ble REQUEST, DR HILL LISTED Attending Unavaila ble REQUEST, DR HILL LISTED Consulting Unavaila ble VILLASENOR, DR CHAR Majano Attending Unavailable VILLASENOR, DR CHAR Majano Admitting Unavailable VILLASENOR, DR CHAR Majano Consulting Unavailable JUAN, DR ANDERSON Primary Care Unavailable Said, Herbie Consulting Unavailable JUAN, DR ANDERSON Primary Care Unavailable JUAN, DR ANDERSON Admitting Unavailable JUAN, DR ANDERSON Attending Unavailable JUAN, DR ANDERSON Consulting Unavailable RAY, AHMAD Attending Unavailable RAY, AHMAD Consulting Unavailable JUAN, DR ANDERSON Primary Care Unavailable RAY, AHMAD Admitting Unavailable RAY, AHMAD Admitting Unavailable ZIEBER, DR ARTI Majano Consulting Unavailable JUAN, DR ANDERSON Primary Care Unavailable RAY, AHMAD Attending Unavailable RAY, AHMAD Consulting Unavailable Magy Cummings Unavailable Justin Martinez Unavailable Unavailable Unavailable Rashaad Stephens II Referring Unav ailable Rashaad Stephens II Attending Unav ailable Justin Martinez Primary Care Unavailable MD Justin Martinez Primary Care Provider [phone] MD Magy Cummings Attending Provider Justin Martinez MD Unavailable Justin Martinez MD Primary Care Provider Justin Martinez MD Primary Care Provider Magy Cummings MD Attending Provider Mary Hallman MD Other Provider Arturo Amos MD Emergency Provider Joel March DO Emergency Provider Geoff Swann DO Admit Provider Geoff Swann DO Attending Provider [phone] JUAN, RUGEN M Attending Unavailable JUAN, RUGEN M Attending Unavailable JUAN, RUGEN M Referring Unavailable JUAN, RUGEN M Attending Unavailable JUAN, RUGEN M Attending Unavailable JUAN, RUGEN M Attending Unavailable JUAN, RUGEN M Attending Unavailable Phil MARTINEZ, Donna Sawyer Referring Provider Trav Anand MD Attending Provider [place], Rugen M Primary Care Unavailable Emiliano, Magy Admitting Unavailable Emiliano, Magy Attending Unavailable [place], Rugen M Primary Care Unavailable Emiliano, Magy Admitting Unavailable Emiliano, Magy Attending Unavailable Kika, Trav Tyler Attending Unavaila ble Donna Villarreal Referring Unavaila ble [place], Rugen M Primary Care Unavailable Kika, Trav Tyler Admitting Unavaila ble Mary Hallman Consulting Unavailable Emiliano, Magy Attending Unavailable Emiliano, Magy Admitting Unavailable NON STAFF Referring Unavailable Juan, Rugen M Primary Care Unavailable Arturo Amos Admitting Unavailable Arturo Amos Attending Unavailable [place], Rugen M Primary Care Unavailable Emiliano, Magy Attending Unavailable Emiliano, Magy Admitting Unavailable [place], Rugen M Primary Care Unavailable Geoff Swann Admitting Unavailable Geoff Swann Attending Unavailable Juan, Rugen M Primary Care Unavailable [place], Rugen M Primary Care Unavailable Emiliano, Magy Attending Unavailable Emiliano, Magy Admitting Unavailable Medications Current Medications Medication Drug Class(es) Dates Sig (Normalized) Sig (Original) amLODIPine 10 mg oral tablet (20 sources) Dihydropyridine Calcium Channel Rosario Start: 03-25-2024 End: 06-04-2024 take 0.5 tablet by mouth once daily amLODIPine (Norvasc) 10 MG tablet Indications: Essential hypertension (CMS/HCC) Take 0.5 tablets (5 mg) by mouth Daily 03/25/2024 06/04/2024 Discontinued (Other) Start: 02-22-2024 End: 06-06-2024 take 5 mg by mouth once daily Amlodipine 10 mg tablet Discontinued 5 MG PO Daily February 22, 2024 10:42am June 06, 2024 10:33am Start: 01-25-2024 End: 02-22-2024 take 1 tablet by mouth once daily Amlodipine 10 mg tablet Discontinued 10 MG PO Daily February 22, 2024 10:25am February 22, 2024 10:45am Start: 01-25-2024 End: 06-06-2024 take 5 mg by mouth once daily Amlodipine Discontinued 5 MG PO Daily February 22, 2024 11:42am June 06, 2024 11:33am Start: 05-12-2022 take 1 tablet by kaylene th once daily amLODIPine Besylate 10 MG Oral Tablet TAKE 1 TABLET BY MOUTH EVERY DAY FOR 100 DAYS Quantity: 90 Refills: 0 Ordered: 12-May-2022 DO Start : 12-May-2022 Active apixaban 5 mg oral tablet (20 sources) Factor Xa Inhibitor Start: 01-04-2024 take 1 tablet by mouth twice daily Apixaban (Eliquis) 5 mg tablet Active 5 MG PO Twice daily January 24, 2024 11:00pm carvedilol 3.125 mg oral tablet (20 sources) alpha-Adrenergic Rosario, beta-Adrenergic Rosario Start: 09-16-2024 take 1 tablet by mouth twice daily Carvedilol 3.125 mg tablet Active 3.125 MG PO Twice daily September 16, 2024 10:34am Start: 07-03-2024 End: 09-16-2024 take 1 tablet by mouth once Carvedilol 3.125 mg tablet Discontinued 3.125 MG PO Once July 02, 2024 11:00pm September 16, 2024 10:36am Start: 06-14-2024 End: 08-10-2024 take 1 tablet by mouth in the morning carvedilol (Coreg) 3.125 MG tablet Indications: Essential hypertension (CMS/HCC) Take 1 tablet (3.125 mg) by mouth in the morning and 1 tablet (3.125 mg) in the evening. Take with meals. 180 tablet 3 08/10/2024 Active Start: 05-23-2024 End: 07-16-2024 take 1 tablet by mouth twice daily at mealtime Carvedilol (Coreg) 6.25 mg tablet Discontinued 6.25 MG PO Twice daily June 05, 2024 11:00pm July 03, 2024 9:45am must administer with a meal/food cholecalciferol 0.05 mg oral capsule (20 sources) Vitamin D Start: 01-25-2024 End: 02-22-2024 take 1 capsule by mouth once daily Cholecalciferol (Vitamin D3) 50 mcg (2,000 unit) capsule Active 2000 UNIT PO Daily February 22, 2024 10:27am cholecalciferol (Vitamin D-3) 50 MCG (1999 UT) tablet 1 (one) time each day at the same time. Active take 1 capsule by mouth once pola ly Vitamin D 50 MCG (1999 UT) Oral Capsule TAKE 1 CAPSULE Daily Quantity: 0 Refills: 0 Ordered: 01-Jun-2022 DO Active chondroitin sulfates 1200 mg / glucosamine sulfate 1500 mg oral capsule (7 sources) Glucosamine-Jeremy droitin 500-400 MG capsule Glucosamine Chondro Complex Active clopidogrel 75 mg oral tablet (16 sources) P2Y12 Platelet Inhibitor Start: 2023 End: 2023 take 1 tablet by mouth once daily Clopidogrel (Plavix) 75 mg tablet Active 75 MG PO Daily June 05, 2024 11:00pm empagliflozin 10 mg oral tablet (12 sources) Sodium-Glucose Cotransporter 2 Inhibitor Start: 2023 take 1 tablet by mouth once daily Empagliflozin (Jardiance) 10 mg tablet Active 10 MG PO Daily July 02, 2024 11:00pm 1 ml epoetin moni 2000 unt/ml injection (2 sources) Erythropoiesis-stim ulating Agent Start: 2024 End: 2024 epoetin moni (Epogen) 2000 UNIT/ML injection Indications: 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, 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) ([facility]/HCC) , CKD stage 3b, GFR 30-44 ml/min ([facility]/HCC) , Anemia in other chronic diseases classified elsewhere , CHF (congestive heart failure), NYHA class IV, acute on chronic, diastolic (CMS/HCC) Inject 1 mL (2,000 Units) under the skin 3 (three) times a week Patient has GFR 31, And had hospitalization for CHF on 10/19/2024 12 mL 2 10/21/2024 11/20/2024 Active ferrous sulfate 325 mg oral tablet (7 sources) Start: 2023 take 1 tablet by mouth every other day ferrous sulfate 325 (65 Fe) MG tablet Take 1 tablet by mouth every other day 09/16/2024 Active Start: 09-16-2024 Ferrous Sulfat e 325 mg (65 mg iron) tablet Active 325 MG PO Every 48 hours September 16, 2024 12:00am take 1 tablet by mouth once shade y Ferrous Sulfate 325 (65 Fe) MG Oral Tablet Take 1 tablet daily Quantity: 0 Refills: 0 Ordered: 01-Jun-2022 DO Active Nulciphhlop-Dssgkffzi-Syrsek (Trelegy Ellipta) 200-62.5-25 MCG/ACT aerosol powder (2 sources) Start: 03-25-2024 End: 06-04-2024 take 1 puff(s) by inhalation once daily Pgdtnmhbqtj-Xjgyoaebp-Ilzcgg (Trelegy Ellipta) 200-62.5-25 MCG/ACT aerosol powder Indications: Pulmonary emphysema, unspecified emphysema type (CMS/HCC) Inhale 1 puff Daily 3 each 1 03/25/2024 06/04/2024 Discontinued (Other) Glucosamine Chond Cmp Double - (1 source) Glucosamine Jeremy d Cmp Double - as directed Orally twice a day Active methylcellulose 2000 mg powd er for oral suspension (20 sources) Start: 06-06-2024 Methylcellulose (With Sugar) 2 gram/19 gram powder Active 1 TBSP PO Daily June 05, 2024 11:00pm Start: 01-25-2024 End: 06-06-2024 take 1 tablet by mouth once daily Methylcellulose (Laxative) (Citrucel) 500 mg tablet Discontinued 500 MG PO Daily January 24, 2024 11:00pm June 06, 2024 10:34am methylcellulose (Citrucel) oral powder as directed Orally Active Citrucel - as di rected Orally Active 24 hr metoprolol succinate 25 mg extended release oral tablet (2 sources) beta-Adrenergic Rosario Start: 05-13-2024 End: 06-04-2024 take 1 tablet by mouth once daily metoprolol succinate XL (Toprol-XL) 25 MG 24 hr tablet Take 25 mg by mouth Daily 05/13/2024 06/04/2024 Discontinued (Other) nitroglycerin 0.4 mg sublingual tablet (14 sources) Nitrate Vasodilator Start: 06-20-2024 Nitroglycerin 0.4 mg tablet, sublingual Active 0.4 MG SUBLINGUAL Q5M as needed for angina June 19, 2024 11:00pm Start: 05-23-2024 nitroglycerin (Nitrostat) 0.4 MG SL tablet 05/23/2024 Active penicillin v potassium 500 mg oral tablet (1 source) take 1 tablet by kaylene th every six hours Penicillin V Potassium 500 MG 1 tablet Orally FOUR TIMES A DAY Active psyllium 3400 mg powder for oral suspension (3 sources) Start: Psyllium Husk (Aspartame) (Metamucil Fiber Singles) 3.4 gram Powder In Packet Active 1 PACKET PO Daily October 20, 2024 12:00am Trelegy Ellipta 100 mcg (1 source) take 1 puff(s) by inhalation once daily as needed Trelegy Ellipta 100 mcg 1 puff Inhalation Once a day prn Active vitamin b12 1 mg/ml injectable solution (14 sources) Vitamin B12 Start: inject 1000 ug by intramuscular injection every month Cyanocobalamin (Vitamin B-12) 1,000 mcg/mL solution Active 1000 MCG IM .monthly October 19, 2024 12:00am Start: 07-03-2024 End: 10-21-2024 Cyanocobalamin 1000 MCG/15ML liquid every month 07/03/2024 10/21/2024 Discontinued (Other) Vitamin D (Cholecalciferol) 50 MCG (1999 UT) (2 sources) take 1 capsule by mouth once daily Vitamin D (Cholecalciferol) 50 MCG (1999 UT) 1 capsule Orally Once a day Active Completed/Discontinued Medications Medication Drug Class(es) Dates Sig (Normalized) Sig (Original) aspirin 81 mg chewable tablet (20 sources) Platelet Aggregation Inhibitor, Nonsteroidal Anti-inflammatory Drug Start: 01-25-2024 End: 06-06-2024 take 1 tablet by mouth once daily Aspirin 81 mg tablet,chewable Discontinued 1 TAB PO Daily January 24, 2024 11:00pm June 06, 2024 10:30am FreeTextSi tablet Orally Once a day; Note: Source Status: Taking; Provider: Emiliano Bhatti ( ) aspirin 81 MG EC tablet 1 (one) time each day at the same time. Active take 1 tablet by kaylene th every twenty-four hours Aspirin 81 MG 1 tablet Orally Once a day Active take 2 tablets by mo [facility] every twenty-four hours Aspirin 81 MG 2 tablet Orally Once a day Active atorvastatin 40 mg oral tablet (20 sources) HMG-CoA Reductase Inhibitor Start: 11-09-2023 End: 02-22-2024 take 1 tablet by mouth once daily Atorvastatin 40 mg tablet Discontinued 1 TAB PO Daily January 24, 2024 11:00pm February 22, 2024 10:28am FreeTextSi tablet Orally Once a day; Note: Source Status: Taking; Provider: Emiliano Bhatti ( ) Start: 07-05-2021 take 1 tablet by kaylene th once daily Atorvastatin Calcium 10 MG Oral Tablet take 1 tablet by mouth once daily Quantity: 90 Refills: 3 Ordered: 01-Jun-2022 Rashaad Stephens MD Start : 05-Jul-2021 Active take 1 tablet by kaylene every twenty-four hours Atorvastatin Calcium 40 MG 1 tablet Orally Once a day Active Citrucel POWD (1 source) Citrucel POWD US E DIRECTED. Quantity: 0 Refills: 0 Ordered: 01-Jun-2022 DO Active Kprogwahwyx-Ypiymiyou-Tpqpck er (10 sources) Start: 02-22-2024 End: 06-06-2024 Vktibwudmmw-Kgjkaokpg-Ilwqvj er (Trelegy Ellipta) 200-62.5-25 mcg blister with device Discontinued 1 INH INHALATION Daily February 21, 2024 11:00pm June 06, 2024 10:34am Start: 02-22-2024 End: 06-06-2024 Idrfayqgdxs-Onhwwjfux-Vwppgc er (Trelegy Ellipta) 200-62.5-25 mcg blister with device Discontinued 1 INH INHALATION Daily February 22, 2024 12:00am June 06, 2024 11:34am Start: 02-22-2024 Fluticasone-Um eclidin-Vilanter (Trelegy Ellipta) 200-62.5-25 mcg blister with device Active 1 INH INHALATION Daily February 22, 2024 12:00am furosemide 40 mg oral tablet (20 sources) Loop Diuretic Start: 07-03-2024 End: 10-24-2024 take 1 tablet by mouth once daily Furosemide 40 mg tablet Active 40 MG PO Daily July 02, 2024 11:00pm On Hold: Resume taking when your weight trends up or your legs become swollen Start: 05-13-2024 End: 09-12-2024 take 1 tablet by mouth once daily as needed Furosemide 20 mg tablet Discontinued 20 MG PO Daily as needed June 05, 2024 11:00pm July 03, 2024 9:31am lisinopril 20 mg oral tablet (17 sources) Angiotensin Converting Enzyme Inhibitor Start: 01-25-2024 End: 01-25-2024 take 1 tablet by mouth once daily Lisinopril 20 mg tablet Discontinued 1 TAB PO Daily January 24, 2024 11:00pm January 25, 2024 3:01pm FreeTextSi tablet Orally Once a day; Note: [...] 1 tablet Orally TWICE A DAY Active nortriptyline 25 mg oral capsule (20 sources) Tricyclic Antidepressant Start: 01-25-2024 End: 09-16-2024 take 1 capsule by mouth once daily at bedtime Nortriptyline 25 mg capsule Discontinued 25 MG PO Daily at bedtime July 03, 2024 9:46am September 16, 2024 10:36am Start: 01-25-2024 End: 02-22-2024 take 2 capsules by mouth once daily at bedtime Nortriptyline 25 mg capsule Discontinued MG PO January 24, 2024 11:00pm February 22, 2024 10:28am FreeTextSi capsule Orally Once a day at [facility]; Note: Source Status: Taking; Provider: Emiliano Bhatti ( ) Start: 01-25-2024 End: 07-03-2024 take 50 mg by mouth once daily at bedtime Nortriptyline Discontinued 50 MG PO Daily at bedtime February 22, 2024 11:27am July 03, 2024 10:47am Start: 11-09-2023 take 1 capsule by mo [facility] twice daily nortriptyline (Pamelor) 25 MG capsule Indications: Peripheral vascular disease (CMS/HCC) TAKE 1 CAPSULE BY MOUTH TWICE A DAY FOR 90 DAYS 200 capsule 3 11/09/2023 Active Start: 10-01-2021 take 1 capsule by mo [facility] twice daily Nortriptyline HCl - 25 MG Oral Capsule TAKE 1 CAPSULE BY MOUTH TWICE A DAY FOR 90 DAYS Quantity: 180 Refills: 0 Ordered: 27-Mar-2022 DO Start : 01-Oct-2021 Active take 2 capsules by [facility] once daily at bedtime Nortriptyline HCl 25 MG 2 capsule Orally Once a day at [facility] Active potassium chloride 20 meq extended release oral tablet (11 sources) Start: 01-27-2024 End: 02-22-2024 take 1 tablet by mouth once daily Potassium Chloride 20 mEq tablet extended release Discontinued 20 MEQ PO Daily 90 January 26, 2024 11:00pm February 22, 2024 10:42am rivaroxaban 2.5 mg oral tablet (16 sources) Factor Xa Inhibitor Start: 01-25-2024 End: 01-25-2024 take 1 tablet by mouth twice daily Rivaroxaban 2.5 mg tablet Discontinued 1 TAB PO Twice daily January 24, 2024 11:00pm January 25, 2024 3:00pm FreeTextSi tablet Orally Twice a day; Note: Source Status: Taking; Provider: Emiliano Bhatti ( ) Start: 05-30-2022 take 1 tablet by kaylene twice daily Xarelto 2.5 MG Oral Tablet TAKE 1 TABLET Twice daily Quantity: 180 Refills: 3 Ordered: 30-May-2022 DO Start : 30-May-2022 Active spironolactone 25 mg oral tablet (20 sources) Aldosterone Antagonist Start: 02-22-2024 End: 06-06-2024 take 1 tablet by mouth once daily Spironolactone 25 mg tablet Discontinued 25 MG PO Daily 90 February 22, 2024 11:24am June 06, 2024 10:34am Problems Active Problems Problem Classification Problem Date Documented Da te Episodic/Chronic Abdominal pain (9 sources) Unspecified abdominal pain; Translations: [Abdominal pain] Onset: 02-02-2021 Episodic Calculus of urinary tract (20 sources) Kidney stone; Translations: [Calculus of kidney] Onset: 04-21-2022 Resolved: 04-21-2022 Episodic Chronic kidney disease (20 sources) Chronic kidney disease, unspecified; Translations: [Chronic kidney disease stage 3] Onset: 09-29-2021 Chronic Chronic kidney disease (4 sources) Chronic kidney disease; Translations: [Chronic kidney disease, stage 3 unspecified] Onset: 04-21-2022 Resolved: 04-21-2022 Chronic obstructive pulmonary disease and bronchiectasis (14 sources) Emphysematous bronchitis; Translations: [Chronic bronchitis with COPD (chronic obstructive pulmonary disease)] Onset: 03-24-2023 03-24-2023 Chronic Congestive heart failure; nonhypertensive (20 sources) Congestive heart failure; Translations: [Unspecified systolic (congestive) heart failure] Onset: 10-19-2024 07-03-2024 Chronic Coronary atherosclerosis and other heart disease (20 sources) Coronary atherosclerosis; Translations: [Atherosclerotic heart disease of [place] coronary artery without angina pectoris] Onset: 03-24-2023 07-16-2024 Chronic Coronary atherosclerosis and other heart disease (1 source) Presence of coronary angioplasty implant and graft; Translations: [Percutaneous transluminal coronary angioplasty status] 06-06-2024 Episodic Deficiency and other anemia (4 sources) Anemia of chronic disease; Translations: [Anemia in other chronic diseases classified elsewhere] Onset: 10-21-2024 10-21-2024 Chronic Deficiency and other anemia (1 source) Anemia in chronic kidney disease; Translations: [Anemia in chronic kidney disease] Onset: 10-19-2024 Chronic Diabetes mellitus without complication (20 sources) Glycosuria; Translations: [Glycosuria] Onset: 03-25-2024 02-22-2024 Episodic Diseases of white blood cells (7 sources) Leukocytosis; Translations: [Elevated white blood cell count, unspecified] Onset: 03-24-2023 03-24-2023 Chronic Disorders of lipid metabolism (20 sources) Pure hypercholesterolemia , unspecified; Translations: [Hyperlipidemia] Onset: 02-04-2021 Chronic Diverticulosis and diverticulitis (7 sources) Diverticulosis of colon; Translations: [Diverticulosis of large intestine without perforation or abscess without bleeding] Onset: 03-24-2023 03-24-2023 Chronic Esophageal disorders (7 sources) Gastro-esophageal reflux disease with esophagitis; Translations: [Reflux esophagitis] Onset: 03-24-2023 03-24-2023 Chronic Essential hypertension (10 sources) Essential (primary) hypertension; Translations: [Benign essential hypertension] Onset: 02-04-2021 03-24-2023 Chronic Fluid and electrolyte disorders (20 sources) Hypokalemia; Translations: [Hypokalemia] Onset: 03-25-2024 01-28-2024 Episodic Heart valve disorders (20 sources) Aortic valve stenosis; Translations: [Nonrheumatic aortic (valve) stenosis] Onset: 01-04-2024 01-04-2024 Chronic Hypertension with complications and secondary hypertension (20 sources) Chronic kidney disease due to hypertension; Translations: [Hypertensive chronic kidney disease with stage 1 through stage 4 chronic kidney disease, or unspecified chronic kidney disease] Onset: 04-21-2022 Resolved: 04-21-2022 Chronic Immunizations and screening for infectious disease (1 source) Patient encounter status; Translations: [Other specified vaccination] Episodic Nephritis; nephrosis; renal sclerosis (20 sources) Nephrosclerosis; Translations: [Atrophy of kidney (terminal)] Onset: 04-21-2022 Resolved: 04-21-2022 Chronic Nutritional deficiencies (8 sources) Vitamin D deficiency, unspecified; Translations: [Vitamin D deficiency] Onset: 10-02-2021 03-24-2023 Chronic Osteoporosis (1 source) Age-related osteoporosis without current pathological fracture; Translations: [AGE-REL OSTEOPOR W/O CURR PATH FX] Onset: 10-02-2021 Chronic Other endocrine disorders (19 sources) Hyperparathyroidism, unspecified; Translations: [Hyperparathyroidism , unspecified] Onset: 10-02-2021 Resolved: 04-21-2022 Chronic Other endocrine disorders (2 sources) Primary hyperparathyroidism; Translations: [Primary hyperparathyroidism] Chronic Other endocrine disorders (20 sources) Hyperparathyroidism; Translations: [Hyperparathyroidism , unspecified] Onset: 03-24-2023 01-25-2024 Chronic Other endocrine disorders (7 sources) Disorder of parathyroid gland; Translations: [Disorder of parathyroid gland, unspecified] Onset: 03-24-2023 03-24-2023 Chronic Other male genital disorders (7 sources) Drug-induced erectile dysfunction; Translations: [Impotence of organic origin] Onset: 03-24-2023 03-24-2023 Chronic Other nutritional; endocrine; and metabolic disorders (2 sources) Hypercalcemia; Translations: [Hypercalcemia] Chronic Other nutritional; endocrine; and metabolic disorders (1 source) Hypercalcemia Onset: 04-21-2022 Resolved: 04-21-2022 Chronic Other nutritional; endocrine; and metabolic disorders (7 sources) Cholesterol level - finding; Translations: [Lipoprotein deficiency] Onset: 03-24-2023 03-24-2023 Chronic Other nutritional; endocrine; and metabolic disorders (1 source) Overweight in adulthood with body mass index of 25 or more but less than 30; Translations: [Overweight] Episodic Peripheral and visceral atherosclerosis (20 sources) Peripheral vascular disease; Translations: [Peripheral vascular disease, unspecified] Onset: 03-24-2023 03-24-2023 Chronic Pulmonary heart disease (20 sources) Pulmonary hypertension; Translations: [Pulmonary hypertension, unspecified] Onset: 06-04-2024 07-16-2024 Chronic Residual codes; unclassified (6 sources) Hypoxia; Translations: [Idiopathic sleep related nonobstructive alveolar hypoventilation] 07-03-2024 Chronic Residual codes; unclassified (7 sources) Idiopathic sleep related nonobstructive alveolar hypoventilation; Translations: [Idiopathic sleep related non-obstructive alveolar hypoventilation] 07-03-2024 Chronic Residual codes; unclassified (7 sources) Obstructive sleep apnea syndrome; Translations: [Obstructive sleep apnea (adult) (pediatric)] 09-03-2024 Chronic Residual codes; unclassified (11 sources) Obstructive sleep apnea (adult) (pediatric); Translations: [Obstructive sleep apnea (adult)(pediatric)] Onset: 10-28-2024 09-03-2024 Chronic Residual codes; unclassified (1 source) Other specified postprocedural states; Translations: [Other postprocedural status] 06-06-2024 Episodic Respiratory failure; insufficiency; arrest (adult) (4 sources) Chronic hypoxemic respiratory failure; Translations: [Chronic respiratory failure with hypoxia] 10-28-2024 Chronic Respiratory failure; insufficiency; arrest (adult) (7 sources) Acute respiratory failure; Translations: [Acute respiratory failure with hypoxia] 10-19-2024 Episodic Unclassified (1 source) COUGH, UNSPECIFIED; Translations: [COUGH, UNSPECIFIED] Onset: 10-12-2021 Unclassified (1 source) CONTACT W/AND (SUSP) EXPOS COVID-19; Translations: [CONTACT W/AND (SUSP) EXPOS COVID-19] Onset: 02-04-2021 Unclassified (7 sources) Patient on antidepressant monitoring plan Onset: 11-09-2023 11-09-2023 Unclassified (7 sources) Baseline PHQ-9 Onset: 11-09-2023 11-09-2023 Past or Other Problems Problem Classification Problem Date Documented Da te Episodic/Chronic Genitourinary symptoms and ill-defined conditions (20 sources) Proteinuria; Translations: [Proteinuria, unspecified] Onset: 02-14-2024 01-25-2024 Episodic Malaise and fatigue (11 sources) Other fatigue; Translations: [Fatigue] Onset: 10-05-2021 Episodic Other aftercare (1 source) terminal make up operator (current) use of aspirin; Translations: [V BLOCK SAW OPERATOR CURRENT USE OF ASPIRIN] Onset: 02-04-2021 Episodic Other aftercare (1 source) Other extermination inspector (current) drug therapy; Translations: [OTH CUSTODIAL CURRENT DRUG THERAPY] Onset: 02-04-2021 Episodic Other bone disease and musculoskeletal deformities (7 sources) Osteopenia; Translations: [Other specified disorders of bone density and structure, unspecified site] Onset: 03-24-2023 03-24-2023 Episodic Other circulatory disease (1 source) Personal history of transient ischemic attack (TIA), and cerebral infarction without residual deficits; Translations: [PERS HX TIA AND CI NO RESID DEFICIT] Onset: 02-04-2021 Episodic Other connective tissue disease (7 sources) Swelling of lower limb; Translations: [Other specified soft tissue disorders] Onset: 02-20-2024 02-20-2024 Episodic Other diseases of kidney and ureters (1 source) Disorder of kidney and ureter, unspecified; Translations: [DISORDER KIDNEY AND URETER UNS] Onset: 02-04-2021 Episodic Other gastrointestinal disorders (7 sources) Constipation; Translations: [Constipation, unspecified] Onset: 03-24-2023 03-24-2023 Episodic Other gastrointestinal disorders (7 sources) Esophageal dysphagia; Translations: [Other dysphagia] Onset: 03-24-2023 03-24-2023 Episodic Other non-traumatic joint disorders (5 sources) Hip pain; Translations: [Pain in right hip] Onset: 06-13-2023 06-13-2023 Episodic Other non-traumatic joint disorders (2 sources) Pain in right hip joint; Translations: [Pain in right hip] Onset: 06-13-2023 06-13-2023 Episodic Residual codes; unclassified (1 source) Acquired absence of other specified parts of digestive tract; Translations: [ACQ ABSENCE OTH PART DIGESTV TRACT] Onset: 02-04-2021 Episodic Residual codes; unclassified (7 sources) Insomnia; Translations: [Insomnia, unspecified] Onset: 03-24-2023 03-24-2023 Episodic Retinal detachments; defects; vascular occlusion; and retinopathy (7 sources) Retinal detachment; Translations: [Serous retinal detachment, unspecified eye] Onset: 03-24-2023 03-24-2023 Episodic Screening and history of mental health and substance abuse codes (9 sources) Personal history of nicotine dependence; Translations: [Ex-smoker] Onset: 02-04-2021 06-13-2023 Episodic Comment on above: Quit in 2014; Results Test Name Value Interpretation Reference Range Facility A1C with Estimated Average G [facility] 10-20-2024 Glucose [Mass/Vol] 88 mg/dL Normal [facility] Comment on above: Result Comment: PERF ORMED BY: [place] [address] PATHOLOGIST [employer]AD[employer] DEVELOPMENT INSTRUCTOR GRANT SCHNEIDER M.D. Performed By: #### KATIE MARROQUIN #### [address] HbA1c (Bld) [Mass fraction] 4.7 % Normal 4.3-5.6 [facility] Comment on above: Result Comment: Incr eased risk for diabetes: 5.7 - 6.4 diabetes: >6.4 glycemic control for adults with diabetes: <7.0 Performed By: #### P KELECHI ABADONUAPLUS #### [address] Basic Metabolic Panelon 01-0 Anion gap [Moles/Vol] 9.2 mmol/L Normal 6.0-15.0 [facility] Comment on above: Performed By: #### P JENNIFFER ADDONUAPLUS #### [address] Calcium [Mass/Vol] 9.5 mg/dL Normal 8.6-10.3 [facility] Comment on above: Performed By: #### P JENNIFFER ADDONUAPLUS #### [address] Chloride [Moles/Vol] 101 mmol/L Normal 98-107 [facility] Comment on above: Performed By: #### P JENNIFFER ADDONUAPLUS #### [address] CO2 [Moles/Vol] 31.1 mmol/L High 21.0-31.0 [facility] Comment on above: Performed By: #### P ROCTI ADDONUAPLUS #### [place] [address] [place] Creatinine [Mass/Vol] 2.13 mg/dL High 0.70-1.30 [facility] Comment on above: Performed By: #### P ROCREBJ ADDONUAPLUS #### [place] [address] [place] Creatinine Clr Calc Pharmacy 34.36 Normal [facility] Comment on above: Performed By: #### P ROCREBJ ADDONUAPLUS #### [address] Estimated GFR 32.274 mL/Min Normal [facility] Comment on above: Performed By: #### P ADRIANE ABADPLUS #### [address] Glucose [Mass/Vol] 96 mg/dL Normal 70-100 [facility] Comment on above: Result Comment: [place] Glucose Reference Range is dependent on time and content of last meal. Glucose of more than 200 mg/dL in a nonstressed, ambulatory subject supports the diagnosis of Diabetes Mellitus. ADA recommended reference range Performed By: #### P ADRIANE ABADPLUS #### [address] Potassium [Moles/Vol] 3.3 mmol/L Low 3.5-5.1 [facility] Comment on above: Performed By: #### P ADRIANE ABADPLUS #### [address] Sodium [Moles/Vol] 138 mmol/L Normal 136-145 [facility] Comment on above: Performed By: #### ADRIANE MARROQUINPLUS #### [address] Urea nitrogen [Mass/Vol] 24 mg/dL Normal 7-25 [facility] Comment on above: Performed By: #### ADRIANE MARROQUINPLUS #### [place] [address] [place] Basophils Auto (Bld) [#/Vol] Ordered By: Geoff Swann on 10-20-2024 Basophils (Bld) [#/Vol] Automated basoph il count 0.0-0.2 [facility] Basophils/100 WBC Auto (Bld) Ordered By: Geoff Swann on 10-20-2024 Basophils/100 WBC (Bld) Automated basophil % . [facility] Blood estimated average gluc ose determination by estimation from glycated hemoglobinOrdered By: Geoff Swann on 10-20-2024 Average glucose Estimated from glycated hemoglobin (Bld) [Mass/Vol] Glucose mean value [Mass/volume] in Blood Estimated from glycated hemoglobin [facility] Calcium [Mass/volume] in Ser um or PlasmaOrdered By: Geoff Swann on 10-20-2024 Calcium [Mass/Vol] Calcium [Mass/volume ] in Serum or Plasma 8.6-10.3 [facility] Carbon dioxide, total [Moles /volume] in Serum or PlasmaOrdered By: Geoff Swann on 10-20-2024 CO2 [Moles/Vol] Carbon dioxide, tota l [Moles/volume] in Serum or Plasma High 21.0-31.0 [facility] Chloride [Moles/volume] in S zoey or PlasmaOrdered By: Geoff Swann on 10-20-2024 Chloride [Moles/Vol] Chloride [Moles/volume] in Serum or Plasma 98-107 [facility] Cholesterol [Mass/volume] in Serum or PlasmaOrdered By: Geoff Swann on 10-20-2024 Cholesterol [Mass/Vol] Cholesterol [Mass/volume] in Serum or Plasma Low 140-200 [facility] Comment on above: Chol less than 200 m g/dl low riskChol 201-239 mg/dl borderline riskChol 240 mg/dl and greater high risk Cholesterol in HDL [Mass/vol ume] in Serum or PlasmaOrdered By: Geoff Swann on 10-20-2024 Cholesterol in HDL [Mass/Vol] Serum or plasma high density lipoprotein (HDL) cholesterol measurement 23-92 [facility] Comment on above: HDL CHOL ATP-III CLA SSIFICATION Cardiovascular RiskHDL > or equal to 60 mg/dL LOWHDL < 40 mg/dL HIGH Cholesterol in LDL Calc [Mas s/Vol]Ordered By: Geoff Swann on 10-20-2024 Cholesterol in LDL [Mass/Vol] Cholesterol in LDL [Mass/volume] in Serum or Plasma by calculation 0-100 [facility] Comment on above: LDL ATP III CLASSIFI CATIONLDL less than 100 mg/dL OptimalLDL 100-129 mg/dL Near or above optimalLDL 130-159 mg/dL Borderline highLDL 160-189 mg/dL HighLDL greater than 189 mg/dL Very high Cholesterol in VLDL Calc [Ma ss/Vol]Ordered By: Geoff Swann on 10-20-2024 Cholesterol in VLDL [Mass/Vol] Cholesterol in VLDL [Mass/volume] in Serum or Plasma by calculation [facility] Complete Blood Count Auto Di ffon 10-20-2024 Basophils (Bld) [#/Vol] 0.1 10*3/uL Normal 0.0-0.2 [facility] Comment on above: Result Comment: PERF ORMED BY: [place] [address] PATHOLOGIST [employer] DEVELOPMENT INSTRUCTOR GRANT SCHNEIDER M.D. Performed By: #### ADRIANE MARROQUINPLUS #### [address] Basophils/100 WBC (Bld) 1.0 % Normal . [facility] Comment on above: Performed By: #### ADRIANE MARROQUINPLUS #### [address] Eosinophils (Bld) [#/Vol] 0.1 10*3/uL Normal 0.0-0.45 [facility] Comment on above: Performed By: #### ADRIANE MARROQUINPLUS #### [address] Eosinophils/100 WBC (Bld) 1.3 % Normal . [facility] Comment on above: Performed By: #### ADRIANE MARROQUINPLUS #### [address] Erythrocyte distribution width (RBC) [Ratio] 17.5 % High 12.0-14.8 [facility] Comment on above: Performed By: #### ADRIANE MARROQUINPLUS #### [address] Hematocrit (Bld) [Volume fraction] 27.9 % Low 38.8-50.0 [facility] Comment on above: Performed By: #### ADRIANE MARROQUINPLUS #### [address] Hemoglobin (Bld) [Mass/Vol] 9.0 g/dL Low 13.0-17.0 [facility] Comment on above: Performed By: #### P JENNIFFER ADDONUAPLUS #### [address] Lymphocytes (Bld) [#/Vol] 1.0 10*3/uL Normal 1.00-4.8 [facility] Comment on above: Performed By: #### P JENNIFFER ADDONUAPLUS #### [address] Lymphocytes/100 WBC (Bld) 20.1 % Normal . [facility] Comment on above: Performed By: #### P JENNIFFER ADDONUAPLUS #### [address] MCH (RBC) [Entitic mass] 24.2 pg Low 27.5-35.2 [facility] Comment on above: Performed By: #### P JENNIFFER ADDONUAPLUS #### [address] MCV (RBC) [Entitic vol] 75.2 fL Low 83.5-101 [facility] Comment on above: Performed By: #### P JENNIFFER ADDONUAPLUS #### [address] Mean Corpuscular HGB Conc 32.2 g/dL Low 32.5-35.6 [facility] Comment on above: Performed By: #### P JENNIFFER ADDONUAPLUS #### [address] Monocytes (Bld) [#/Vol] 0.5 10*3/uL Normal 0.0-0.8 [facility] Comment on above: Performed By: #### P JENNIFFER ADDONUAPLUS #### [address] Monocytes/100 WBC (Bld) 10.1 % Normal . [facility] Comment on above: Performed By: #### P JENNIFFER ADDONUAPLUS #### [place] [id number] [place] Neutrophils (Bld) [#/Vol] 3.4 10*3/uL Normal 1.8-7.7 [facility] Comment on above: Performed By: #### P KELECHI ABADONUAPLUS #### [address] Neutrophils/100 WBC (Bld) 67.5 % Normal . [facility] Comment on above: Performed By: #### P JENNIFFER ADDONUAPLUS #### [address] NRBC% 0.0 /100{WBC} Normal 0-0.5 [facility] Comment on above: Performed By: #### P JENNIFFER ADDONUAPLUS #### [address] Platelet mean volume (Bld) [Entitic vol] 6.9 fL Normal 6.6-10.1 [facility] Comment on above: Performed By: #### P JENNIFFER ADDONUAPLUS #### [place] [address] [place] Platelets (Bld) [#/Vol] 235 10*3/uL Normal 150-450 [facility] Comment on above: Performed By: #### P JENNIFFER ADDONUAPLUS #### [address] RBC (Bld) [#/Vol] 3.71 10*6/uL Low 3.90-5.60 [facility] Comment on above: Performed By: #### P ROCREBJ ADDONUAPLUS #### [place] [address] [place] WBC (Bld) [#/Vol] 5.0 10*3/uL Normal 4.1-10.5 [facility] Comment on above: Performed By: #### P ROCREBJ ADDONUAPLUS #### [address] Creatinine [Mass/volume] in Serum or PlasmaOrdered By: Geoff Swann on 10-20-2024 Creatinine [Mass/Vol] Creatinine [Mass/volume] in Serum or Plasma High 0.70-1.30 [facility] Eosinophils Auto (Bld) [#/Vo l]Ordered By: Geoff Swann on 10-20-2024 Eosinophils (Bld) [#/Vol] Automated eosinophil count 0.0-0.45 [facility] Eosinophils/100 WBC Auto (Bl d)Ordered By: Geoff Swann on 10-20-2024 Eosinophils/100 WBC (Bld) Automated eosinophil % . [facility] Erythrocyte distribution wid th Auto (RBC) [Ratio]Ordered By: Geoff Swann on 10-20-2024 Erythrocyte distribution width (RBC) [Ratio] Erythrocyte distribution width [Ratio] by Automated count High 12.0-14.8 [facility] Glucose [Mass/volume] in Ser um or PlasmaOrdered By: Geoff Swann on 10-20-2024 Glucose [Mass/Vol] Glucose [Mass/volume ] in Serum or Plasma 70-100 [facility] Comment on above: ADA recommended refe rence rangeRandom Glucose Reference Range is dependent on time and content of last meal. Glucose of more than 200 mg/dL in a nonstressed, ambulatory subject supports the diagnosis of Diabetes Mellitus. Hematocrit Auto (Bld) [Volum e fraction]Ordered By: Geoff Swann on 10-20-2024 Hematocrit (Bld) [Volume fraction] Hematocrit [Volume Fraction] of Blood by Automated count Low 38.8-50.0 [facility] Hemoglobin A1c/Hemoglobin.to shin in BloodOrdered By: Geoff Swann on 10-20-2024 HbA1c (Bld) [Mass fraction] Hemoglobin A1c percentage 4.3-5.6 [facility] Comment on above: Increased risk for d iabetes: 5.7 - 6.4diabetes: >6.4glycemic control for adults with diabetes: <7.0 Hemoglobin [Mass/volume] in BloodOrdered By: Geoff Swann on 10-20-2024 Hemoglobin (Bld) [Mass/Vol] Hemoglobin [Mass/volume] in Blood Low 13.0-17.0 [facility] Leukocytes [#/volume] correc anna for nucleated erythrocytes in Blood by Automated counOrdered By: Geoff Swann on 10-20-2024 WBC corrected for nucl RBC Auto (Bld) [#/Vol] Leukocytes [#/volume] corrected for nucleated erythrocytes in Blood by Automated coun 4.1-10.5 [facility] Lipid Panelon 10-20-2024 Cholesterol [Mass/Vol] 79 mg/dL Low 140-200 [facility] Comment on above: Result Comment: Chol less than 200 mg/dl low risk Chol 201-239 mg/dl borderline risk Chol 240 mg/dl and greater high risk Performed By: #### P JENNIFFER ADDONUAPLUS #### [facility] [address] [place] [address] [place] Cholesterol in HDL [Mass/Vol] 26 mg/dL Normal 23-92 [facility] Comment on above: Result Comment: HDL CHOL ATP-III CLASSIFICATION Cardiovascular Risk HDL > or equal to 60 mg/dL LOW HDL < 40 mg/dL HIGH Performed By: #### P JENNIFFER ADDONUAPLUS #### [address] Cholesterol.total/Lata sterol in HDL [Mass ratio] 3.0 {ratio} Normal <5.0 [facility] Comment on above: Result Comment: PERF ORMED BY: [place] [address] PATHOLOGIST [employer] DEVELOPMENT INSTRUCTOR GRANT SCHNEIDER M.D. Performed By: #### P JENNIFFER ADDONUAPLUS #### [place] [id number] [facility] LDL Cholesterol,Calculated 35 mg/dL Normal 0-100 [facility] Comment on above: Result Comment: LDL ATP III CLASSIFICATION LDL less than 100 mg/dL Optimal LDL 100-129 mg/dL Near or above optimal LDL 130-159 mg/dL Borderline high LDL 160-189 mg/dL High LDL greater than 189 mg/dL Very high Performed By: #### P JENNIFFER ADDONUAPLUS #### [place] [address] [place] Triglyceride w/Reflex 90 mg/dL Normal 0-149 [facility] Comment on above: Result Comment: TRIG ATP III CLASSIFICATION TRIG less than 150 mg/dL Normal TRIG 150-199 mg/dL Borderline high TRIG 200-500 mg/dL High TRIG greater than 500 mg/dL Very high Standard traceable to the Center for Disease Conrtrol and Prevention (CDC) test method. Performed By: #### P JENNIFFER ADDONUAPLUS #### [facility] [address] VLDL CHOLESTEROL 18 mg/dL Normal [facility] Comment on above: Performed By: #### P KELECHI ABADONUAPLUS #### [facility] [address] Lymphocytes Auto (Bld) [#/Vo l]Ordered By: Geoff Swann on 10-20-2024 Lymphocytes (Bld) [#/Vol] Lymphocytes [#/volume] in Blood by Automated count 1.00-4.8 [facility] Lymphocytes/100 WBC Auto (Bl d)Ordered By: Geoff Swann on 10-20-2024 Lymphocytes/100 WBC (Bld) Lymphocytes/100 leukocytes in Blood by Automated count . [facility] MCH Auto (RBC) [Entitic mass ]Ordered By: Geoff Swann on 10-20-2024 MCH (RBC) [Entitic mass] MCH [Entitic mass] by Automated count Low 27.5-35.2 [facility] MCHC Auto (RBC) [Mass/Vol]Or dered By: Geoff Swann on 10-20-2024 MCHC (RBC) [Mass/Vol] MCHC [Mass/volume] by Automated count Low 32.5-35.6 [facility] MCV Auto (RBC) [Entitic vol] Ordered By: Geoff Swann on 10-20-2024 MCV (RBC) [Entitic vol] MCV [Entitic vol ume] by Automated count Low 83.5-101 [facility] Magnesiumon 10-20-2024 Magnesium [Mass/Vol] 2.0 mg/dL Normal 1.9-2.7 [facility] Comment on above: Performed By: #### P ROCRERAT, ADDONUAPLUS #### [facility] [address] [place] [id number] [facility] Magnesium [Mass/volume] in S zoey or PlasmaOrdered By: Geoff Swann on 10-20-2024 Magnesium [Mass/Vol] Magnesium [Mass/volume] in Serum or Plasma 1.9-2.7 [facility] Monocytes Auto (Bld) [#/Vol] Ordered By: Geoff Swann on 10-20-2024 Monocytes (Bld) [#/Vol] Automated blood monocyte count 0.0-0.8 [facility] Monocytes/100 WBC Auto (Bld) Ordered By: Geoff Swann on 10-20-2024 Monocytes/100 WBC (Bld) Automated monocyte % . [facility] Neutrophils Auto (Bld) [#/Vo l]Ordered By: Geoff Swann on 10-20-2024 Neutrophils (Bld) [#/Vol] Neutrophils [#/volume] in Blood by Automated count 1.8-7.7 [facility] Neutrophils/100 WBC Auto (Bl d)Ordered By: Geoff Swann on 10-20-2024 Neutrophils/100 WBC (Bld) Automated neutrophil % . [facility] No Panel InformationOrdered By: Geoff Swann on 10-20-2024 Estimated GFR (CKD-EPI) 32.274 mL/Min [facility] Pharmacy Creatinine Clearance (Chem 34.36 [facility] Nucleated erythrocytes [Pres ence] in Blood by Automated countOrdered By: Geoff Swann on 10-20-2024 Nucleated RBC Auto Ql (Bld) Nucleated erythrocytes [Presence] in Blood by Automated count 0-0.5 [facility] Platelet mean volume Auto (B ld) [Entitic vol]Ordered By: Geoff Swann on 10-20-2024 Platelet mean volume (Bld) [Entitic vol] Platelet mean volume [Entitic volume] in Blood by Automated count 6.6-10.1 [facility] Platelets Auto (Bld) [#/Vol] Ordered By: Geoff Swann on 10-20-2024 Platelets (Bld) [#/Vol] Platelets [#/vol ume] in Blood by Automated count 150-450 [facility] Potassium [Moles/volume] in Serum or PlasmaOrdered By: Geoff Swann on 10-20-2024 Potassium [Moles/Vol] Potassium [Moles/volume] in Serum or Plasma Low 3.5-5.1 [facility] RBC Auto (Bld) [#/Vol]Ordere d By: Geoff Swann on 10-20-2024 RBC (Bld) [#/Vol] Erythrocytes [#/volume] in Blood by Automated count Low 3.90-5.60 [facility] Serum or plasma anion gap de terminationOrdered By: Geoff Swann on 10-20-2024 Anion gap [Moles/Vol] Serum or plasma an ion gap determination 6.0-15.0 [facility] Serum or plasma total choles terol/high density lipoprotein (HDL) cholesterol mass ratOrdered By: Geoff Swann on 10-20-2024 Cholesterol.total/Lata sterol in HDL [Mass ratio] Serum or plasma total cholesterol/high density lipoprotein (HDL) cholesterol mass rat <5.0 [facility] Sodium [Moles/volume] in Ser um or PlasmaOrdered By: Geoff Swann on 10-20-2024 Sodium [Moles/Vol] Sodium [Moles/volume ] in Serum or Plasma 136-145 [facility] Triglyceride [Mass/volume] i n Serum or PlasmaOrdered By: Geoff Swann on 10-20-2024 Triglyceride [Mass/Vol] Triglyceride [Mass/volume] in Serum or Plasma 0-149 [facility] Comment on above: TRIG ATP III CLASSIF ICATIONTRIG less than 150 mg/dL NormalTRIG 150-199 mg/dL Borderline highTRIG 200-500 mg/dL High TRIG greater than 500 mg/dL Very highStandard traceable to the Center for Disease Conrtrol and Prevention (CDC) test method. Urea nitrogen [Mass/volume] in Serum or PlasmaOrdered By: Geoff Swann on 10-20-2024 Urea nitrogen [Mass/Vol] Urea nitrogen [Mass/volume] in Serum or Plasma 7-25 [facility] WBC Auto (Bld) [#/Vol]Ordere d By: Geoff Swann on 10-20-2024 WBC (Bld) [#/Vol] Leukocytes [#/volume ] in Blood by Automated count 4.1-10.5 [facility] Alanine aminotransferase [En zymatic activity/volume] in Serum or PlasmaOrdered By: Joel March on 10-19-2024 ALT [Catalytic activity/Vol] Alanine aminotransferase [Enzymatic activity/volume] in Serum or Plasma Low 7-52 [facility] Albumin [Mass/volume] in Ser um or Plasma by Bromocresol green (BCG) dye binding methoOrdered By: Joel March on 10-19-2024 Albumin BCG dye [Mass/Vol] Albumin [Mass/volume] in Serum or Plasma by Bromocresol green (BCG) dye binding metho Low 3.5-5.7 [facility] Alkaline phosphatase [Enzyma tic activity/volume] in Serum or PlasmaOrdered By: Joel March on 10-19-2024 ALP [Catalytic activity/Vol] Alkaline phosphatase [Enzymatic activity/volume] in Serum or Plasma High 34-104 [facility] Aspartate aminotransferase [ Enzymatic activity/volume] in Serum or PlasmaOrdered By: Joel March on 10-19-2024 AST [Catalytic activity/Vol] Aspartate aminotransferase [Enzymatic activity/volume] in Serum or Plasma Low 13-39 [facility] B-Type Natriuretic Peptideon 10-19-2024 Natriuretic peptide B (Bld) [Mass/Vol] 2785.0 pg/mL High 5-100 [facility] Comment on above: Result Comment: PERF ORMED BY: [place] [address] PATHOLOGIST [employer] DEVELOPMENT INSTRUCTOR GRANT SCHNEIDER M.D. Performed By: #### KATIE MARROQUIN #### [address] Basophils Auto (Bld) [#/Vol] Ordered By: Joel March on 10-19-2024 Basophils (Bld) [#/Vol] Automated basoph il count 0.0-0.2 [facility] Basophils/100 WBC Auto (Bld) Ordered By: Joel March on 10-19-2024 Basophils/100 WBC (Bld) Automated basophil % . [facility] Bilirubin.total [Mass/volume ] in Serum or PlasmaOrdered By: Joel March on 10-19-2024 Bilirubin [Mass/Vol] Bilirubin.total [Mass/volume] in Serum or Plasma High 0.3-1.0 [facility] COVID Cepheid NegativeOrdere d By: Joel March on 10-19-2024 SARS-CoV-2 (COVID-19) Ab IA Ql COVID Cepheid Negative [facility] Comment on above: This is a duplicate Cepheid Xpert Xpress CoV-2/Flu/RSV Plus RNA by RT-PCR result to be used for statistical tracking purpose only. COVID-19 / Flu A/B / RSV PCR on 10-19-2024 SARS-CoV-2 (COVID-19) RNA MICHELLE+probe Ql (Unsp spec) COVID-19 Cepheid Result Negative for SARS-CoV-2 RNA by RT-PCR Flu A Cepheid Result Negative for Flu A RNA by RT-PCR Flu B Cepheid Result Negative for Flu B RNA by RT-PCR RSV Cepheid Result Negative for RSV RNA by RT-PCR COVID19 Blank Space Reference: Negative COVID19 Blank Space Cepheid Disclaimer The Cepheid Xpert Xpress CoV-2/Flu/RSV Plus has Cepheid Disclaimer not been FDA cleared or approved; this test has Cepheid Disclaimer been authorized by FDA under an EUA for use by Cepheid Disclaimer authorized laboratories; this test has been Cepheid Disclaimer authorized only for the simultaneous qualitative Cepheid Disclaimer detection and differentiation of nucleic acids from Cepheid Disclaimer SARS-CoV-2, influenza A, influenza B, and Cepheid Disclaimer respiratory syncytial virus (RSV), and not for any Cepheid Disclaimer other viruses or pathogens; and this test is only Cepheid Disclaimer authorized for the duration of the declaration that Cepheid Disclaimer circumstances exist justifying the authorization of Cepheid Disclaimer emergency use of in vitro diagnostic tests for Cepheid Disclaimer detection and/or diagnosis of COVID-19 under Cepheid Disclaimer Section 564(b)(1) of the Act, 21 U.S.C. 360bbb- Cepheid Disclaimer 3(b)(1), unless the authorization is terminated or Cepheid Disclaimer revoked sooner. PERFORMED BY: [place] [address] PATHOLOGIST LEADERSHIP DEVELOPMENT INSTRUCTOR GRANT SCHNEIDER M.D. Normal [facility] Comment on above: Performed By: #### P KATIE ABAD #### [facility] [address] [place] [address] [place] Calcium [Mass/volume] in Ser um or PlasmaOrdered By: Joel March on 10-19-2024 Calcium [Mass/Vol] Calcium [Mass/volume ] in Serum or Plasma 8.6-10.3 [facility] Carbon dioxide, total [Moles /volume] in Serum or PlasmaOrdered By: Joel March on 10-19-2024 CO2 [Moles/Vol] Carbon dioxide, tota l [Moles/volume] in Serum or Plasma 21.0-31.0 [facility] Cepheid COVID PCR Negativeon 10-19-2024 SARS-CoV-2 (COVID-19) RNA MICHELLE+probe Ql (Unsp spec) Negative Normal Negative [facility] Comment on above: Result Comment: This is a duplicate Cepheid Xpert Xpress CoV-2/Flu/RSV Plus RNA by RT-PCR result to be used for statistical tracking purpose only. PERFORMED BY: [address] [address] PATHOLOGIST LEADERSHIP DEVELOPMENT INSTRUCTOR GRANT SCHNEIDER M.D. Performed By: #### R ENAL #### [facility] [address] [place] [address] [place] Chloride [Moles/volume] in S zoey or PlasmaOrdered By: Joel March on 10-19-2024 Chloride [Moles/Vol] Chloride [Moles/volume] in Serum or Plasma 98-107 [facility] Complete Blood Count Auto Di ffon 10-19-2024 Basophils (Bld) [#/Vol] 0.1 10*3/uL Normal 0.0-0.2 [facility] Comment on above: Result Comment: PERF ORMED BY: [place] [address] PATHOLOGIST LEADERSHIP DEVELOPMENT INSTRUCTOR GRANT SCHNEIDER M.D. Performed By: #### P ROCTI ADDONUAPLUS #### [address] Basophils/100 WBC (Bld) 1.4 % Normal . T iftikhar [facility] Comment on above: Performed By: #### P JENNIFFER ADDONUAPLUS #### [address] Eosinophils (Bld) [#/Vol] 0.0 10*3/uL Normal 0.0-0.45 [facility] Comment on above: Performed By: #### P JENNIFFER ADDONUAPLUS #### [address] Eosinophils/100 WBC (Bld) 0.8 % Normal . [facility] Comment on above: Performed By: #### P JENNIFFER ADDONUAPLUS #### [address] Erythrocyte distribution width (RBC) [Ratio] 17.6 % High 12.0-14.8 [facility] Comment on above: Performed By: #### P ROCREBJ ADDONUAPLUS #### [address] Hematocrit (Bld) [Volume fraction] 28.5 % Low 38.8-50.0 [facility] Comment on above: Performed By: #### P ROCREBJ ADDONUAPLUS #### [address] Hemoglobin (Bld) [Mass/Vol] 9.0 g/dL Low 13.0-17.0 [facility] Comment on above: Performed By: #### ADRIANE MARROQUINPLUS #### [address] Lymphocytes (Bld) [#/Vol] 1.0 10*3/uL Normal 1.00-4.8 [facility] Comment on above: Performed By: #### ADRIANE MARROQUINPLUS #### [address] Lymphocytes/100 WBC (Bld) 16.9 % Normal . [facility] Comment on above: Performed By: #### ADRIANE MARROQUINPLUS #### [address] MCH (RBC) [Entitic mass] 23.7 pg Low 27.5-35.2 [facility] Comment on above: Performed By: #### ADRIANE MARROQUINPLUS #### [address] MCV (RBC) [Entitic vol] 74.7 fL Low 83.5-101 [facility] Comment on above: Performed By: #### ADRIANE MARROQUINPLUS #### [address] Mean Corpuscular HGB Conc 31.7 g/dL Low 32.5-35.6 [facility] Comment on above: Performed By: #### ZHANG MARROQUINUAPLUS #### [address] Monocytes (Bld) [#/Vol] 0.5 10*3/uL Normal 0.0-0.8 [facility] Comment on above: Performed By: #### KELECHI MARROQUINONUAPLUS #### [address] Monocytes/100 WBC (Bld) 20.86 % High 0.00-20.00 [facility] Comment on above: Result Comment: For adults in ED, MDW > 20.0 may be associated with a higher risk of sepsis during the first 12 hrs of hospital admission Performed By: #### ADRIANE MARROQUINPLUS #### [address] Monocytes/100 WBC (Bld) 8.5 % Normal . T [facility] Comment on above: Performed By: #### ADRIANE MARROQUINPLUS #### [address] Neutrophils (Bld) [#/Vol] 4.3 10*3/uL Normal 1.8-7.7 [facility] Comment on above: Performed By: #### ADRIANE MARROQUINPLUS #### [address] Neutrophils/100 WBC (Bld) 72.4 % Normal . [facility] Comment on above: Performed By: #### ADRIANE MARROQUINPLUS #### [address] NRBC% 0.1 /100{WBC} Normal 0-0.5 [facility] Comment on above: Performed By: #### ADRIANE MARROQUINPLUS #### [address] Platelet mean volume (Bld) [Entitic vol] 6.8 fL Normal 6.6-10.1 [facility] Comment on above: Performed By: #### ADRIANE MARROQUINPLUS #### [address] Platelets (Bld) [#/Vol] 292 10*3/uL Normal 150-450 [facility] Comment on above: Performed By: #### KELECHI MARROQUINONUAPLUS #### [address] RBC (Bld) [#/Vol] 3.81 10*6/uL Low 3.90-5.60 [facility] Comment on above: Performed By: #### P JENNIFFER ADDONUAPLUS #### [address] WBC (Bld) [#/Vol] 5.9 10*3/uL Normal 4.1-10.5 [facility] Comment on above: Performed By: #### P JENNIFFER ADDONUAPLUS #### [address] Comprehensive Metabolic Pane thanh 10-19-2024 Albumin [Mass/Vol] 3.4 g/dL Low 3.5-5.7 [facility] Comment on above: Performed By: #### P KELECHI ABADONUAPLUS #### [address] Albumin/Globulin [Mass ratio] 1.0 {ratio} Normal [facility] Comment on above: Performed By: #### P KELECHI ABADONUAPLUS #### [address] ALP [Catalytic activity/Vol] 105 U/L High 34-104 [facility] Comment on above: Performed By: #### P KELECHI ABADONUAPLUS #### [address] ALT [Catalytic activity/Vol] 6 U/L Low 7-52 [facility] Comment on above: Performed By: #### P KELECHI ABADONUAPLUS #### [address] Anion gap [Moles/Vol] 8.9 mmol/L Normal 6.0-15.0 [facility] Comment on above: Performed By: #### P KELECHI ABADONUAPLUS #### [address] AST [Catalytic activity/Vol] 12 U/L Low 13-39 [facility] Comment on above: Performed By: #### P KELECHI ABADONUAPLUS #### [place] [address] Bilirubin [Mass/Vol] 1.2 mg/dL High 0.3-1.0 [facility] Comment on above: Performed By: #### P JENNIFFER ADDONUAPLUS #### [address] Calcium [Mass/Vol] 9.5 mg/dL Normal 8.6-10.3 [facility] Comment on above: Performed By: #### P ROCTI ADDONUAPLUS #### [address] Chloride [Moles/Vol] 100 mmol/L Normal 98-107 [facility] Comment on above: Performed By: #### P ROCTI ADDONUAPLUS #### [address] CO2 [Moles/Vol] 28.8 mmol/L Normal 21.0-31.0 [facility] Comment on above: Performed By: #### P ROCTI ADDONUAPLUS #### [address] Creatinine [Mass/Vol] 2.19 mg/dL High 0.70-1.30 [facility] Comment on above: Performed By: #### P ROCREBJ ADDONUAPLUS #### [address] Creatinine Clr Calc Pharmacy 33.47 Normal [facility] Comment on above: Result Comment: PERF ORMED BY: [place] [address] PATHOLOGIST LEADERSHIP DEVELOPMENT INSTRUCTOR GRANT SCHNEIDER M.D. Performed By: #### P JENNIFFER ADDONUAPLUS #### [address] Estimated GFR 31.216 mL/Min Normal [facility] Comment on above: Performed By: #### P JENNIFFER ADDONUAPLUS #### [address] Globulin (S) [Mass/Vol] 3.5 g/dL Normal T [facility] Comment on above: Performed By: #### P ADRIANE ABADPLUS #### [address] Glucose [Mass/Vol] 109 mg/dL High 70-100 [facility] Comment on above: Result Comment: [place] Glucose Reference Range is dependent on time and content of last meal. Glucose of more than 200 mg/dL in a nonstressed, ambulatory subject supports the diagnosis of Diabetes Mellitus. ADA recommended reference range Performed By: #### KELECHI MARROQUINONUAPLUS #### [address] Potassium [Moles/Vol] 3.7 mmol/L Normal 3.5-5.1 [facility] Comment on above: Performed By: #### ZHANG MARROQUINUAPLUS #### [address] Protein [Mass/Vol] 6.9 g/dL Normal 6.4-8.9 [facility] Comment on above: Performed By: #### ADRIANE MARROQUINPLUS #### [address] Sodium [Moles/Vol] 134 mmol/L Low 136-145 [facility] Comment on above: Performed By: #### KELECHI MARROQUINONUAPLUS #### [address] Urea nitrogen [Mass/Vol] 23 mg/dL Normal 7-25 [facility] Comment on above: Performed By: #### KELECHI MARROQUINONUAPLUS #### [address] Creatine Kinaseon 10-19-2024 CK [Catalytic activity/Vol] 34 U/L Normal 30-223 [facility] Comment on above: Performed By: #### KELECHI MARROQUINONUAPLUS #### [address] Creatine kinase [Enzymatic a ctivity/volume] in Serum or PlasmaOrdered By: Joel March on 10-19-2024 CK [Catalytic activity/Vol] Creatine kinase [Enzymatic activity/volume] in Serum or Plasma 30 [facility] Creatinine [Mass/volume] in Serum or PlasmaOrdered By: Joel March on 10-19-2024 Creatinine [Mass/Vol] Creatinine [Mass/volume] in Serum or Plasma High 0.70-1.30 [facility] ECG 12 lead ECGon 10-19-2024 ECG 12 lead ECG [facility] Main [place] [id number] Electrocardiograph Report Signed Patient: Char Alatorre MR#: [id number] 4 : 1950 Acct:[id number] Age/Sex: 73 / M ADM Date: 10/19/24 Loc: ER Room: Type: [facility] ER Attending Dr: Ordering Provider: Joel March DO Date of Service: 10/19/2402/08/1212 ECG/ECG 12 lead ECG: Shortness of Breath/Dyspnea Copies to: Test Reason : Blood Pressure : 108/54 mmHG Vent. Rate : 82 BPM Atrial Rate : 82 BPM P-R Int : 208 ms QRS Dur : 102 ms QT Int : 418 ms P-R-T Axes : 71 34 93 degrees QTcB Int : 488 ms Normal sinus rhythm Nonspecific ST and T wave abnormality Prolonged QT Confirmed by Joel MARCH DO ([id number]) on 10/19/2024 2:39:22 PM Referred By: Electronically Signed By: Joel MARCH DO Transcribed By: MUS Signed By Joel March DO 0 10/19/24 1439 Normal [facility] Eosinophils Auto (Bld) [#/Vo l]Ordered By: Joel March on 10-19-2024 Eosinophils (Bld) [#/Vol] Automated eosinophil count 0.0-0.45 [facility] Eosinophils/100 WBC Auto (Bl d)Ordered By: Joel March on 10-19-2024 Eosinophils/100 WBC (Bld) Automated eosinophil % . [facility] Erythrocyte distribution wid th Auto (RBC) [Ratio]Ordered By: Joel March on 10-19-2024 Erythrocyte distribution width (RBC) [Ratio] Erythrocyte distribution width [Ratio] by Automated count High 12.0-14.8 [facility] Globulin Calc (S) [Mass/Vol] Ordered By: Joel March on 10-19-2024 Globulin (S) [Mass/Vol] Serum globulin measurement by calculation (mass/volume) [facility] Glucose [Mass/volume] in Ser um or PlasmaOrdered By: Joel March on 10-19-2024 Glucose [Mass/Vol] Glucose [Mass/volume ] in Serum or Plasma High 70-100 [facility] Comment on above: ADA recommended refe rence rangeRandom Glucose Reference Range is dependent on time and content of last meal. Glucose of more than 200 mg/dL in a nonstressed, ambulatory subject supports the diagnosis of Diabetes Mellitus. Hematocrit Auto (Bld) [Volum e fraction]Ordered By: Joel March on 10-19-2024 Hematocrit (Bld) [Volume fraction] Hematocrit [Volume Fraction] of Blood by Automated count Low 38.8-50.0 [facility] Hemoglobin [Mass/volume] in BloodOrdered By: Joel March on 10-19-2024 Hemoglobin (Bld) [Mass/Vol] Hemoglobin [Mass/volume] in Blood Low 13.0-17.0 [facility] Leukocytes [#/volume] correc anna for nucleated erythrocytes in Blood by Automated counOrdered By: Joel March on 10-19-2024 WBC corrected for nucl RBC Auto (Bld) [#/Vol] Leukocytes [#/volume] corrected for nucleated erythrocytes in Blood by Automated coun 4.1-10.5 [facility] Lymphocytes Auto (Bld) [#/Vo l]Ordered By: Joel March on 10-19-2024 Lymphocytes (Bld) [#/Vol] Lymphocytes [#/volume] in Blood by Automated count 1.00-4.8 [facility] Lymphocytes/100 WBC Auto (Bl d)Ordered By: Joel March on 10-19-2024 Lymphocytes/100 WBC (Bld) Lymphocytes/100 leukocytes in Blood by Automated count . [facility] MCH Auto (RBC) [Entitic mass ]Ordered By: Joel March on 10-19-2024 MCH (RBC) [Entitic mass] MCH [Entitic mass] by Automated count Low 27.5-35.2 [facility] MCHC Auto (RBC) [Mass/Vol]Or dered By: Joel March on 10-19-2024 MCHC (RBC) [Mass/Vol] MCHC [Mass/volume] by Automated count Low 32.5-35.6 [facility] MCV Auto (RBC) [Entitic vol] Ordered By: Joel March on 10-19-2024 MCV (RBC) [Entitic vol] MCV [Entitic vol ume] by Automated count Low 83.5-101 [facility] Monocyte distribution width [Entitic volume] in Blood by AutomatedOrdered By: Joel March on 10-19-2024 Monocyte distribution width Auto (Bld) [Entitic vol] Monocyte distribution width [Entitic volume] in Blood by Automated High 0.00-20.00 [facility] Comment on above: For adults in ED, MD W > 20.0 may be associated with a higher risk of sepsis during the first 12 hrs of hospital admission Monocytes Auto (Bld) [#/Vol] Ordered By: Joel March on 10-19-2024 Monocytes (Bld) [#/Vol] Automated blood monocyte count 0.0-0.8 [facility] Monocytes/100 WBC Auto (Bld) Ordered By: Joel March on 10-19-2024 Monocytes/100 WBC (Bld) Automated monocyte % . [facility] Natriuretic peptide B [Mass/ Vol]Ordered By: Joel March on 10-19-2024 Natriuretic peptide B (Bld) [Mass/Vol] BNP ser/plas High 5-100 [facility] Neutrophils Auto (Bld) [#/Vo l]Ordered By: Joel March on 10-19-2024 Neutrophils (Bld) [#/Vol] Neutrophils [#/volume] in Blood by Automated count 1.8-7.7 [facility] Neutrophils/100 WBC Auto (Bl d)Ordered By: Joel March on 10-19-2024 Neutrophils/100 WBC (Bld) Automated neutrophil % . [facility] No Panel InformationOrdered By: Joel March on 10-19-2024 Estimated GFR (CKD-EPI) 31.216 mL/Min [facility] Pharmacy Creatinine Clearance (Chem 33.47 [facility] Nucleated erythrocytes [Pres ence] in Blood by Automated countOrdered By: Joel March on 10-19-2024 Nucleated RBC Auto Ql (Bld) Nucleated erythrocytes [Presence] in Blood by Automated count 0-0.5 [facility] Platelet mean volume Auto (B ld) [Entitic vol]Ordered By: Joel March on 10-19-2024 Platelet mean volume (Bld) [Entitic vol] Platelet mean volume [Entitic volume] in Blood by Automated count 6.6-10.1 [facility] Platelets Auto (Bld) [#/Vol] Ordered By: Joel March on 10-19-2024 Platelets (Bld) [#/Vol] Platelets [#/vol ume] in Blood by Automated count 150-450 [facility] Potassium [Moles/volume] in Serum or PlasmaOrdered By: Joel March on 10-19-2024 Potassium [Moles/Vol] Potassium [Moles/volume] in Serum or Plasma 3.5-5.1 [facility] Protein [Mass/volume] in Ser um or PlasmaOrdered By: Joel March on 10-19-2024 Protein [Mass/Vol] Protein [Mass/volume ] in Serum or Plasma 6.4-8.9 [facility] RBC Auto (Bld) [#/Vol]Ordere d By: Joel March on 10-19-2024 RBC (Bld) [#/Vol] Erythrocytes [#/volume] in Blood by Automated count Low 3.90-5.60 [facility] Respiratory specimen influen za A virus, influenza B virus, respiratory syncytical virOrdered By: Joel March on 10-19-2024 SARS-CoV-2 (COVID-19) RNA MICHELLE+probe Ql (Unsp spec) Respiratory specimen influenza A virus, influenza B virus, respiratory syncytical vir [facility] Serum or plasma albumin/glob ulin mass ratioOrdered By: Joel March on 10-19-2024 Albumin/Globulin [Mass ratio] Serum or plasma albumin/globulin mass ratio [facility] Serum or plasma anion gap de terminationOrdered By: Joel March on 10-19-2024 Anion gap [Moles/Vol] Serum or plasma an ion gap determination 6.0-15.0 [facility] Sodium [Moles/volume] in Ser um or PlasmaOrdered By: Joel March on 10-19-2024 Sodium [Moles/Vol] Sodium [Moles/volume ] in Serum or Plasma Low 136-145 [facility] Troponin I High Sensitivityo n 10-19-2024 Troponin I High Sensitivity 39.8 pg/mL High 0.0-20.0 [facility] Comment on above: Result Comment: PERF ORMED BY: [place] [address] PATHOLOGIST LEADERSHIP DEVELOPMENT INSTRUCTOR GRANT SCHNEIDER M.D. Performed By: #### P KATIE ABAD #### [address] Troponin I.cardiac [Mass/vol ume] in Serum or Plasma by Detection limit <= 0.01 ng/Ordered By: Joel March on 10-19-2024 Troponin I.cardiac DL <= 0.01 ng/mL [Mass/Vol] Troponin I.cardiac [Mass/volume] in Serum or Plasma by Detection limit <= 0.01 ng/ High 0.0-20.0 [facility] Urea nitrogen [Mass/volume] in Serum or PlasmaOrdered By: Joel March on 10-19-2024 Urea nitrogen [Mass/Vol] Urea nitrogen [Mass/volume] in Serum or Plasma 7-25 [facility] WBC Auto (Bld) [#/Vol]Ordere d By: Joel March on 10-19-2024 WBC (Bld) [#/Vol] Leukocytes [#/volume ] in Blood by Automated count 4.1-10.5 [facility] X-ray reportOrdered By: Cahr Larios on 10-19-2024 Study report [facility] Main [place] [address] [place] [address] XRay Report Signed Patient: Char Alatorre MR#: [id number] : 1950 Acct:[id number] Age/Sex: 73 / M ADM Date: 5 Loc: ER Room: Type: [facility] ER Attending Dr: Copies to: Joel March DO~ Ordering Provider: Joel March DO Date of Service: 10/19/24 XR/XR chest 2V*: Shortness of Breath/Dyspnea XR chest 2V* 10/19/2024 12:26 PM SIGNS AND SYMPTOMS: Shortness breath, weakness, fatigue, nonproductive cough PROTOCOL: Frontal and lateral graphs of the chest COMPARISON: 05/13/2024 FINDINGS: The trachea is midline. Atherosclerotic changes are present in the thoracic aorta. The heart and mediastinal structures are within normal limits. There isinterstitial prominence bilaterally. This appears be chronic in nature. No focal consolidation. The bony thorax is intact. XR/XR chest 2V* IMPRESSION: No acute cardiopulmonary pathology. Chronic interstitial changes are redemonstrated as above. Impression dictated by: Char Larios M.D.10/19/2024 1:26 PM Dictation Location: [facility]- Transcribed By: [facility] 10/19/24 1326 Dictated By: Char Larios II, MD 10/19/24 1325 Signed By: 10/19/24 1326 [facility] Work Phone: XR chest 2V*on 10-19-2024 XR chest 2V* [facility] Main [place] [address] [place] [address] XRay Report Signed Patient: Char Alatorre MR#: [id number] 4 : 1950 Acct:[id number] Age/Sex: 73 / M ADM Date: 10/19/24 Loc: ER Room: Type: [facility] ER Attending Dr: Copies to: Joel March DO Ordering Provider: Joel March DO Date of Service: 10/19/24 XR/XR chest 2V*: Shortness of Breath/Dyspnea XR chest 2V* 10/19/2024 12:26 PM SIGNS AND SYMPTOMS: Shortness breath, weakness, fatigue, nonproductive cough PROTOCOL: Frontal and lateral graphs of the chest COMPARISON: 05/13/2024 FINDINGS: The trachea is midline. Atherosclerotic changes are present in the thoracic aorta. The heart and mediastinal structures are within normal limits. There is interstitial prominence bilaterally. This appears be chronic in nature. No focal consolidation. The bony thorax is intact. XR/XR chest 2V* IMPRESSION: No acute cardiopulmonary pathology. Chronic interstitial changes are redemonstrated as above. Impression dictated by: Char Larios M.D.10/19/2024 1:26 PM Dictation Location: [facility]- Transcribed By: [facility] 10/19/241325 Dictated By: Char Larios II, MD 10/19/241324 Signed By: 10/19/24 132 Normal [facility] Alanine aminotransferase [En zymatic activity/volume] in Serum or PlasmaOrdered By: Arturo Amos on 10-09-2024 ALT [Catalytic activity/Vol] Alanine aminotransferase [Enzymatic activity/volume] in Serum or Plasma Low 7-52 [facility] Albumin [Mass/volume] in Ser um or Plasma by Bromocresol green (BCG) dye binding methoOrdered By: Arturo Amos on 10-09-2024 Albumin BCG dye [Mass/Vol] Albumin [Mass/volume] in Serum or Plasma by Bromocresol green (BCG) dye binding metho Low 3.5-5.7 [facility] Alkaline phosphatase [Enzyma tic activity/volume] in Serum or PlasmaOrdered By: Arturo Amos on 10-09-2024 ALP [Catalytic activity/Vol] Alkaline phosphatase [Enzymatic activity/volume] in Serum or Plasma High 34-104 [facility] Aspartate aminotransferase [ Enzymatic activity/volume] in Serum or PlasmaOrdered By: Arturo Amos on 10-09-2024 AST [Catalytic activity/Vol] Aspartate aminotransferase [Enzymatic activity/volume] in Serum or Plasma Low 13-39 [facility] Basic Metabolic Panelon 12-2 Anion gap [Moles/Vol] 10.4 mmol/L Normal 6.0-15.0 [facility] e [facility] Comment on above: Performed By: #### R ENAL #### [facility] [address] Calcium [Mass/Vol] 9.9 mg/dL Normal 8.6-10.3 [facility] Comment on above: Performed By: #### R ENAL #### [facility] [address] [place] [address] [place] Chloride [Moles/Vol] 101 mmol/L Normal 98-107 [facility] Comment on above: Performed By: #### R ENAL #### [address] CO2 [Moles/Vol] 27.4 mmol/L Normal 21.0-31.0 [facility] Comment on above: Performed By: #### R ENAL #### [address] Creatinine [Mass/Vol] 1.98 mg/dL High 0.70-1.30 [facility] Comment on above: Performed By: #### R ENAL #### [place] [address] [place] Creatinine Clr Calc Pharmacy 37.01 Normal [facility] Comment on above: Result Comment: PERF ORMED BY: [place] [address] PATHOLOGIST [employer]AD[employer] DEVELOPMENT INSTRUCTOR GRANT SCHNEIDER M.D. Performed By: #### R ENAL #### [address] Street Estimated GFR 35.229 mL/Min Normal [facility] Comment on above: Performed By: #### R ENAL #### [address] Glucose [Mass/Vol] 134 mg/dL High 70-100 [facility] Comment on above: Result Comment: [place] Glucose Reference Range is dependent on time and content of last meal. Glucose of more than 200 mg/dL in a nonstressed, ambulatory subject supports the diagnosis of Diabetes Mellitus. ADA recommended reference range Performed By: #### R ENAL #### [address] Potassium [Moles/Vol] 3.8 mmol/L Normal 3.5-5.1 [facility] Comment on above: Performed By: #### R ENAL #### [place] [address] [place] Sodium [Moles/Vol] 135 mmol/L Low 136-145 [facility] Comment on above: Performed By: #### R ENAL #### [facility] [address] [place] [address] Urea nitrogen [Mass/Vol] 23 mg/dL Normal 7- [facility] Comment on above: Performed By: #### R ENAL #### [facility] [address] [place] [address] Basophils Auto (Bld) [#/Vol] Ordered By: Arturo Amos on 10-09-2024 Basophils (Bld) [#/Vol] Automated basoph il count 0.0-0.2 [facility] Basophils/100 WBC Auto (Bld) Ordered By: Arturo Amos on 10-09-2024 Basophils/100 WBC (Bld) Automated basophil % . [facility] Bilirubin.direct [Mass/volum e] in Serum or PlasmaOrdered By: Arturo Amos on 10-09-2024 Bilirubin.direct [Mass/Vol] Bilirubin.direct [Mass/volume] in Serum or Plasma High 0.03-0.18 [facility] Bilirubin.total [Mass/volume ] in Serum or PlasmaOrdered By: Arturo Amos on 10-09-2024 Bilirubin [Mass/Vol] Bilirubin.total [Mass/volume] in Serum or Plasma 0.3-1.0 [facility] CT angio abdomen pelvison CT angio abdomen pelvis [facility] Main [place] [address] [place] [address] CT Scan Report Signed with Addenda Patient: Char Alatorre MR#: [id number] 4 : 1950 Acct:[id number] Age/Sex: 73 / M ADM Date: 10/09/24 Loc: ER Room: Type: [facility] ER Attending Dr: Copies to: Arturo Amos MD Ordering Provider: Arturo Amos MD Date of Service: 10/09/24 CT/CT angio abdomen pelvis: abdominal pain ADDENDUM 1 Correction to Addendum Dictated By: Lakhwinder Mathias Jr DO Addendum Signed By: 10/09/241333 Addendum Cosigned By: DD/ TD/TT: 10/09/[address]/CT angio abdomen pelvis impression: IMPRESSION: 1. There appears be presumed previous open vascular repair of a fusiform type infrarenal abdominal aortic aneurysm with 2 presumed endovascular stents in place within the region. There appears to be a partially thrombosed suprarenal fusiform type abdominal aortic aneurysm measuring 4.2 cm. No contrast extravasation is seen to suggest rupture. Correlation with prior imaging is recommended. A contained rupture cannot BE excluded. 2. 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 3. Moderate stenosis proximal SMA. 4. Small bilateral pleural effusions. 5. Splenomegaly. 6. Left colon diverticulosis. Impression dictated by: Lakhwinder Mathias Jr., D.OSawyer10/09/2024 1:34 PM Dictation Location: [id number]-18 Addendum Dictated By: Lakhwinder Mathias Jr DO Addendum Signed By: 10/09/241333 Addendum Cosigned By: DD/ TD/TT: 10/09/24 CTA abdomen and pelvis . CLINICAL DATA: Right lower quadrant pain radiating to lower back.. TECHNIQUE: CT of the abdomen and pelvis was initially performed without contrast. Intravenous contrast-enhanced CT angiography of the abdomen and pelvis was then performed. Axial, sagittal, coronal and volume-rendered three-dimensional reconstructions were created and reviewed. This CT exam was performed using one or more of the following dose reduction techniques: Automated exposure control, adjustment of the mA and/or kV according to patient size, or use of iterative reconstruction technique. COMPARISON: None. FINDINGS: Lung Bases: Small bilateral pleural effusions. Bibasilar atelectasis/scarring. Organs:Gallbladder appears to been removed. Liver pancreas and adrenal glands appear unremarkable. Splenomegaly measuring 14 cm. Cystic changes involving the kidneys with asymmetrical enhancement and atrophy of the right kidney when compared to the left. There appears be presumed prior open repair of a fusiform type infrarenal abdominal aortic aneurysm with additional [address]. There appears to be a fusiform type suprarenal abdominal aortic aneurysm measuring 4.2 cm in greatest axial dimension which appears partially thrombosed. There is associated thrombosis involving the origin of the right renal artery. The aneurysm appears to extend into the origin of the left renal artery which appears patent.[A stent is noted involving the right external iliac artery which appears patent. There appears to be thrombosis involving the internal iliac arteries bilaterally with contrast seen distally likely related to collateral flow. Moderate stenosis involving the proximal SMA. Mild calcification involving the origin of the celiac artery without critical stenosis or occlusion. GI: Stomach is grossly unremarkable. Small bowel appears nondilated. Postsurgical changes are noted involving the small bowel. No acute colonic abnormality is noted. Moderate stool burden. Left colon diverticulosis.[ Pelvis:[Urinary bladder is grossly unremarkable. Prostate gland normal in size.] Peritoneum/Retroperito neum:No free air, free fluid or lymphadenopathy.[ Abd wall/Bones:Abdominal wall demonstrates no acute findings. Osseous structures demonstrate degenerative change.[ CT/CT angio abdomen pelvis IMPRESSION: 1. There appears be presumed previous open vascular 2. A fusiform type infrarenal abdominal aortic aneurysm with 2 presumed endovascular stents in place within the region. There appears to be a partially thrombosed suprarenal fusiform type abdominal aortic aneurysm measuring 4.2 cm. No contrast extravasation is seen to suggest rupture. Correlation with prior imaging is recommended. A contained rupture cannot BE excluded. 3. 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 4. Moderate stenosis proximal SMA. 5. Small bilateral pleural effusions. 6. Splenomegaly. 7. Left colon diverticulosis. Impression dictat (more content not included)... Normal [facility] Calcium [Mass/volume] in Ser um or PlasmaOrdered By: Arturo Amos on 10-09-2024 Calcium [Mass/Vol] Calcium [Mass/volume ] in Serum or Plasma 8.6-10.3 [facility] Carbon dioxide, total [Moles /volume] in Serum or PlasmaOrdered By: Arturo Amos on 10-09-2024 CO2 [Moles/Vol] Carbon dioxide, tota l [Moles/volume] in Serum or Plasma 21.0-31.0 [facility] Chloride [Moles/volume] in S zoey or PlasmaOrdered By: Arturo Amos on 10-09-2024 Chloride [Moles/Vol] Chloride [Moles/volume] in Serum or Plasma 98-107 [facility] Complete Blood Count Auto Di ffon 10-09-2024 Basophils (Bld) [#/Vol] 0.1 10*3/uL Normal 0.0-0.2 [facility] Comment on above: Result Comment: PERF ORMED BY: [place] [address] PATHOLOGIST [employer] GRANT SCHNEIDER M.D. Performed By: #### R ENAL #### [address] Basophils/100 WBC (Bld) 3.1 % Normal . [facility] Comment on above: Performed By: #### R ENAL #### [address] Eosinophils (Bld) [#/Vol] 0.0 10*3/uL Normal 0.0-0.45 [facility] Comment on above: Performed By: #### R ENAL #### [address] Eosinophils/100 WBC (Bld) 0.4 % Normal . [facility] Comment on above: Performed By: #### R ENAL #### [address] Erythrocyte distribution width (RBC) [Ratio] 17.6 % High 12.0-14.8 [facility] Comment on above: Performed By: #### R ENAL #### [address] Hematocrit (Bld) [Volume fraction] 27.9 % Low 38.8-50.0 [facility] Comment on above: Performed By: #### R ENAL #### [address] Hemoglobin (Bld) [Mass/Vol] 8.9 g/dL Low 13.0-17.0 [facility] Comment on above: Performed By: #### R ENAL #### [address] Lymphocytes (Bld) [#/Vol] 0.7 10*3/uL Low 1.00-4.8 [facility] Comment on above: Performed By: #### R ENAL #### [address] Lymphocytes/100 WBC (Bld) 14.8 % Normal . [facility] Comment on above: Performed By: #### R ENAL #### [address] MCH (RBC) [Entitic mass] 23.7 pg Low 27.5-35.2 [facility] Comment on above: Performed By: #### R ENAL #### [address] MCV (RBC) [Entitic vol] 74.4 fL Low 83.5-101 [facility] Comment on above: Performed By: #### R ENAL #### [address] Mean Corpuscular HGB Conc 31.8 g/dL Low 32.5-35.6 [facility] Comment on above: Performed By: #### R ENAL #### [address] Monocytes (Bld) [#/Vol] 0.3 10*3/uL Normal 0.0-0.8 [facility] Comment on above: Performed By: #### R ENAL #### [address] Monocytes/100 WBC (Bld) 23.60 % High 0.00-20.00 [facility] Comment on above: Result Comment: For adults in ED, MDW > 20.0 may be associated with a higher risk of sepsis during the first 12 hrs of hospital admission Performed By: #### R ENAL #### [address] Monocytes/100 WBC (Bld) 7.1 % Normal . [facility] Comment on above: Performed By: #### R ENAL #### [place] [address] [place] Neutrophils (Bld) [#/Vol] 3.5 10*3/uL Normal 1.8-7.7 [facility] Comment on above: Performed By: #### R ENAL #### [address] Neutrophils/100 WBC (Bld) 74.6 % Normal . [facility] Comment on above: Performed By: #### R ENAL #### [address] NRBC% 0.0 /100{WBC} Normal 0-0.5 [facility] Comment on above: Performed By: #### R ENAL #### [address] Platelet mean volume (Bld) [Entitic vol] 6.6 fL Normal 6.6-10.1 [facility] Comment on above: Performed By: #### R ENAL #### [address] Platelets (Bld) [#/Vol] 239 10*3/uL Normal 150-450 [facility] Comment on above: Performed By: #### R ENAL #### [address] RBC (Bld) [#/Vol] 3.75 10*6/uL Low 3.90-5.60 [facility] Comment on above: Performed By: #### R ENAL #### [address] WBC (Bld) [#/Vol] 4.7 10*3/uL Normal 4.1-10.5 [facility] Comment on above: Performed By: #### R ENAL #### [address] Creatinine (Bld) [Mass/Vol]O rdered By: Arturo Amos on 10-09-2024 Creatinine [Mass/Vol] Whole blood creati nine measurement High 0.6-1.3 [facility] Comment on above: ER/ESD physician is notified/shown all ISTAT results.Critical values may be confirmed by laboratory testing ifdeemed necessary by ER attending doctor. Creatinine [Mass/volume] in Serum or PlasmaOrdered By: rAturo Amos on 10-09-2024 Creatinine [Mass/Vol] Creatinine [Mass/volume] in Serum or Plasma High 0.70-1.30 [facility] ECG 12 lead ECGon 10-09-2024 ECG 12 lead ECG [facility] [place] [address] Electrocardiograph Report Signed Patient: Char Alatorre MR#: [id number] 4 : 1950 Acct:[id number] Age/Sex: 73 / M ADM Date: 10/09/24 Loc: ER Room: Type: [facility] ER Attending Dr: Ordering Provider: Arturo Amos MD Date of Service: 10/09/24 ECG/ECG 12 lead ECG: Abdominal Pain Copies to: Test Reason : Blood Pressure : */* mmHG Vent. Rate : 84 BPM Atrial Rate : 84 BPM P-R Int : 216 ms QRS Dur : 102 ms QT Int : 374 ms P-R-T Axes : 56 -13 152 degrees QTcB Int : 441 ms Sinus rhythm with 1st degree AV block with occasional premature ventricular complexes Possible Left atrial enlargement Septal infarct , age undetermined Abnormal ECG No previous ECGs available Confirmed by ARTURO AMOS MD ([id number]) on 10/09/2024 7:47:29 PM Referred By: Electronically Signed By: ARTURO AMOS MD Transcribed By: MUS Signed By Arturo Amos MD 09/16 Normal [facility] Eosinophils Auto (Bld) [#/Vo l]Ordered By: Arturo Amos on 10-09-2024 Eosinophils (Bld) [#/Vol] Automated eosinophil count 0.0-0.45 [facility] Eosinophils/100 WBC Auto (Bl d)Ordered By: Arturo Amos on 10-09-2024 Eosinophils/100 WBC (Bld) Automated eosinophil % . [facility] Erythrocyte distribution wid th Auto (RBC) [Ratio]Ordered By: Arturo Amos on 10-09-2024 Erythrocyte distribution width (RBC) [Ratio] Erythrocyte distribution width [Ratio] by Automated count High 12.0-14.8 [facility] Globulin Calc (S) [Mass/Vol] Ordered By: Arturo Amos on 10-09-2024 Globulin (S) [Mass/Vol] Serum globulin measurement by calculation (mass/volume) [facility] Glucose [Mass/volume] in Ser um or PlasmaOrdered By: Arturo Amos on 10-09-2024 Glucose [Mass/Vol] Glucose [Mass/volume ] in Serum or Plasma High 70-100 [facility] Comment on above: ADA recommended refe rence rangeRandom Glucose Reference Range is dependent on time and content of last meal. Glucose of more than 200 mg/dL in a nonstressed, ambulatory subject supports the diagnosis of Diabetes Mellitus. Hematocrit Auto (Bld) [Volum e fraction]Ordered By: Arturo Amos on 10-09-2024 Hematocrit (Bld) [Volume fraction] Hematocrit [Volume Fraction] of Blood by Automated count Low 38.8-50.0 [facility] Hemoglobin [Mass/volume] in BloodOrdered By: Arturo Amos on 10-09-2024 Hemoglobin (Bld) [Mass/Vol] Hemoglobin [Mass/volume] in Blood Low 13.0-17.0 [facility] Hepatic Panelon 10-09-2024 Albumin [Mass/Vol] 3.3 g/dL Low 3.5-5.7 [facility] Comment on above: Performed By: #### R ENAL #### [address] Albumin/Globulin [Mass ratio] 0.9 {ratio} Normal [facility] Comment on above: Performed By: #### R ENAL #### [facility] [address] [place] [address] [place] ALP [Catalytic activity/Vol] 109 U/L High 34-104 [facility] Comment on above: Performed By: #### R ENAL #### [facility] [address] [place] [address] [place] ALT [Catalytic activity/Vol] 6 U/L Low 7-52 [facility] Comment on above: Performed By: #### R ENAL #### [facility] [address] [place] [address] [place] AST [Catalytic activity/Vol] 10 U/L Low 13-39 [facility] Comment on above: Performed By: #### R ENAL #### [address] Bilirubin [Mass/Vol] 0.9 mg/dL Normal 0.3-1.0 [facility] Comment on above: Performed By: #### R ENAL #### [address] Bilirubin,Indirect 0.7 mg/dL Normal [facility] Comment on above: Performed By: #### R ENAL #### [address] Bilirubin.indirect [Mass/Vol] 0.20 mg/dL High 0.03-0.18 [facility] Comment on above: Performed By: #### R ENAL #### [address] Globulin (S) [Mass/Vol] 3.6 g/dL Normal T [facility] Comment on above: Performed By: #### R ENAL #### [address] Protein [Mass/Vol] 6.9 g/dL Normal 6.4-8.9 [facility] Comment on above: Performed By: #### R ENAL #### [address] ISTAT XRay CREon 10-09-2024 Creatinine [Mass/Vol] 2.1 mg/dL High 0.6-1.3 [facility] Comment on above: Result Comment: ER/E [place] physician is notified/shown all ISTAT results. Critical values may be confirmed by laboratory testing if deemed necessary by ER attending doctor. Performed By: #### P KATIE ABAD #### [address] ISTAT GFR 32.828 Normal [facility] Comment on above: Result Comment: PERF ORMED BY: [place] [address] PATHOLOGIST [employer]OP[employer] IN[employer]CTOR GRANT SCHNEIDER M.D. Performed By: #### P KELECHI ABADBRANDEEUAMARICHUY #### [facility] [address] [place] [address] [place] Lactate [Moles/volume] in Se rum or PlasmaOrdered By: Arturo Amos on 10-09-2024 Lactate [Moles/Vol] Lactate [Moles/volum e] in Serum or Plasma 0.5-2.2 [facility] Lactic Acidon 10-09-2024 Lactate [Moles/Vol] 1.2 mmol/L Normal 0.5-2.2 [facility] Comment on above: Result Comment: PERF ORMED BY: [facility] [address] [facility] [place] [address] PATHOLOGIST [employer]ELOP[employer] IN[employer]CTOR GRANT SCHNEIDER M.D. Performed By: #### R ENAL #### [facility] [address] Leukocytes [#/volume] correc anna for nucleated erythrocytes in Blood by Automated counOrdered By: Arturo Amos on 10-09-2024 WBC corrected for nucl RBC Auto (Bld) [#/Vol] Leukocytes [#/volume] corrected for nucleated erythrocytes in Blood by Automated coun 4.1-10.5 [facility] Lymphocytes Auto (Bld) [#/Vo l]Ordered By: Arturo Amos on 10-09-2024 Lymphocytes (Bld) [#/Vol] Lymphocytes [#/volume] in Blood by Automated count Low 1.00-4.8 [facility] Lymphocytes/100 WBC Auto (Bl d)Ordered By: Arturo Amos on 10-09-2024 Lymphocytes/100 WBC (Bld) Lymphocytes/100 leukocytes in Blood by Automated count . [facility] MCH Auto (RBC) [Entitic mass ]Ordered By: Arturo Amos on 10-09-2024 MCH (RBC) [Entitic mass] MCH [Entitic mass] by Automated count Low 27.5-35.2 [facility] MCHC Auto (RBC) [Mass/Vol]Or dered By: Arturo Amos on 10-09-2024 MCHC (RBC) [Mass/Vol] MCHC [Mass/volume] by Automated count Low 32.5-35.6 [facility] MCV Auto (RBC) [Entitic vol] Ordered By: Arturo Amos on 10-09-2024 MCV (RBC) [Entitic vol] MCV [Entitic vol ume] by Automated count Low 83.5-101 [facility] Monocyte distribution width [Entitic volume] in Blood by AutomatedOrdered By: Arturo Amos on 10-09-2024 Monocyte distribution width Auto (Bld) [Entitic vol] Monocyte distribution width [Entitic volume] in Blood by Automated High 0.00-20.00 [facility] Comment on above: For adults in ED, MD W > 20.0 may be associated with a higher risk of sepsis during the first 12 hrs of hospital admission Monocytes Auto (Bld) [#/Vol] Ordered By: Arturo Amos on 10-09-2024 Monocytes (Bld) [#/Vol] Automated blood monocyte count 0.0-0.8 [facility] Monocytes/100 WBC Auto (Bld) Ordered By: Arturo Amos on 10-09-2024 Monocytes/100 WBC (Bld) Automated monocyte % . [facility] Neutrophils Auto (Bld) [#/Vo l]Ordered By: Arturo Amos on 10-09-2024 Neutrophils (Bld) [#/Vol] Neutrophils [#/volume] in Blood by Automated count 1.8-7.7 [facility] Neutrophils/100 WBC Auto (Bl d)Ordered By: Arturo Amos on 10-09-2024 Neutrophils/100 WBC (Bld) Automated neutrophil % . [facility] No Panel InformationOrdered By: Arturo Amos on 10-09-2024 Bedside Estimated GFR (eGFR) 32.828 [facility] Estimated GFR (CKD-EPI) 35.229 mL/Min [facility] Creatinine Clearance (Chem 37.01 [facility] Nucleated erythrocytes [Pres ence] in Blood by Automated countOrdered By: Arturo Amos on 10-09-2024 Nucleated RBC Auto Ql (Bld) Nucleated erythrocytes [Presence] in Blood by Automated count 0-0.5 [facility] Platelet mean volume Auto (B ld) [Entitic vol]Ordered By: Arturo Amos on 10-09-2024 Platelet mean volume (Bld) [Entitic vol] Platelet mean volume [Entitic volume] in Blood by Automated count 6.6-10.1 [facility] Platelets Auto (Bld) [#/Vol] Ordered By: Arturo Amos on 10-09-2024 Platelets (Bld) [#/Vol] Platelets [#/vol ume] in Blood by Automated count 150-450 [facility] Potassium [Moles/volume] in Serum or PlasmaOrdered By: Arturo Amos on 10-09-2024 Potassium [Moles/Vol] Potassium [Moles/volume] in Serum or Plasma 3.5-5.1 [facility] Protein [Mass/volume] in Ser um or PlasmaOrdered By: Arturo Amos on 10-09-2024 Protein [Mass/Vol] Protein [Mass/volume ] in Serum or Plasma 6.4-8.9 [facility] RBC Auto (Bld) [#/Vol]Ordere d By: Arturo Amos on 10-09-2024 RBC (Bld) [#/Vol] Erythrocytes [#/volume] in Blood by Automated count Low 3.90-5.60 [facility] Serum or plasma albumin/glob ulin mass ratioOrdered By: Arturo Amos on 10-09-2024 Albumin/Globulin [Mass ratio] Serum or plasma albumin/globulin mass ratio [facility] Serum or plasma anion gap de terminationOrdered By: Arturo Amos on 10-09-2024 Anion gap [Moles/Vol] Serum or plasma an ion gap determination 6.0-15.0 [facility] Serum or plasma non-glucuron idated bilirubin measurement (mass/volume)Ordered By: Arturo Amos on 10-09-2024 Bilirubin.indirect [Mass/Vol] Serum or plasma non-glucuronidated bilirubin measurement (mass/volume) [facility] Sodium [Moles/volume] in Ser um or PlasmaOrdered By: Arturo Amos on 10-09-2024 Sodium [Moles/Vol] Sodium [Moles/volume ] in Serum or Plasma Low 136-145 [facility] Stool Occult Blood (Guaiac)o n 10-09-2024 Stool Occult Blood (Guaiac) Occult Blood Negative for Occult Blood by Guaiac Methodology Reference range = Negative PERFORMED BY: [place] [address] PATHOLOGIST [employer]OP[employer] INSTRUCTOR GRANT Castellanos [facility] Comment on above: Performed By: #### P ROCRERAViraj, ADDONUAPLUS #### [address] Stool gastrointestinal hemog lobin detectionOrdered By: Arturo Amos on 10-09-2024 Hemoglobin.gastrointest inal Ql (Stl) Stool gastrointestinal hemoglobin detection [facility] Urea nitrogen [Mass/volume] in Serum or PlasmaOrdered By: Arturo Amos on 10-09-2024 Urea nitrogen [Mass/Vol] Urea nitrogen [Mass/volume] in Serum or Plasma 05-09 [facility] WBC Auto (Bld) [#/Vol]Ordere d By: Arturo Amos on 10-09-2024 WBC (Bld) [#/Vol] Leukocytes [#/volume ] in Blood by Automated count 4.1-10.5 [facility] Albumin [Mass/volume] in Ser um or Plasma by Bromocresol green (BCG) dye binding methoOrdered By: Magy Cummings on 09-03-2024 Albumin BCG dye [Mass/Vol] Albumin [Mass/volume] in Serum or Plasma by Bromocresol green (BCG) dye binding metho 3.5-5.7 [facility] Appearance of UrineOrdered B y: Magy Emiliano on 09-03-2024 Appearance (U) Urine appearance Clear [facility] Bacteria [Presence] in Urine by AutomatedOrdered By: Magy Emiliano on 09-03-2024 Bacteria Auto Ql (U) Bacteria [Presence] in Urine by Automated None Seen [facility] Basophils Auto (Bld) [#/Vol] Ordered By: Magy Emiliano on 09-03-2024 Basophils (Bld) [#/Vol] Automated basoph il count 0.0-0.2 [facility] Basophils/100 WBC Auto (Bld) Ordered By: Magy Emiliano on 09-03-2024 Basophils/100 WBC (Bld) Automated basophil % . [facility] Bilirubin Test strip Ql (U)O rdered By: Magy Cummings on 09-03-2024 Bilirubin Ql (U) Bilirubin.total [Presence] in Urine by Test strip Negative [facility] Calcium [Mass/volume] in Ser um or PlasmaOrdered By: Magy Cummings on 09-03-2024 Calcium [Mass/Vol] Calcium [Mass/volume ] in Serum or Plasma 8.6-10.3 [facility] Carbon dioxide, total [Moles /volume] in Serum or PlasmaOrdered By: Magy Cummings on 09-03-2024 CO2 [Moles/Vol] Carbon dioxide, tota l [Moles/volume] in Serum or Plasma High 21.0-31.0 [facility] Chloride [Moles/volume] in S zoey or PlasmaOrdered By: Magy Cummings on 09-03-2024 Chloride [Moles/Vol] Chloride [Moles/volume] in Serum or Plasma 98-107 [facility] Color Auto (U)Ordered By: Ab tiarra Cummings on 09-03-2024 Color (U) Color of Urine by Auto Yellow [facility] Auto Di ffon 09-03-2024 Basophils (Bld) [#/Vol] 0.1 10*3/uL Normal 0.0-0.2 [facility] Comment on above: Result Comment: PERF ORMED BY: [place] [address] PATHOLOGIST [employer] DEVELOPMENT INSTRUCTOR GRANT SCHNEIDER M.D. Performed By: #### P ADRIANE ABADPLUS #### [facility] [address] Basophils/100 WBC (Bld) 1.0 % Normal . T if[facility]har [facility] Comment on above: Performed By: #### P ADRIANE ABADPLUS #### [facility] [address] [place] [id number] [facility] Eosinophils (Bld) [#/Vol] 0.1 10*3/uL Normal 0.0-0.45 [facility] Comment on above: Performed By: #### P ROCREBJ ADDONUAPLUS #### [address] Eosinophils/100 WBC (Bld) 1.4 % Normal . [facility] Comment on above: Performed By: #### P JENNIFFER ADDONUAPLUS #### [address] Erythrocyte distribution width (RBC) [Ratio] 16.4 % High 12.0-14.8 [facility] Comment on above: Performed By: #### P ROCREBJ ADDONUAPLUS #### [address] Hematocrit (Bld) [Volume fraction] 32.0 % Low 38.8-50.0 [facility] Comment on above: Performed By: #### P JENNIFFER ADDONUAPLUS #### [address] Hemoglobin (Bld) [Mass/Vol] 10.3 g/dL Low 13.0-17.0 [facility] Comment on above: Performed By: #### P JENNIFFER ADDONUAPLUS #### [address] Lymphocytes (Bld) [#/Vol] 1.3 10*3/uL Normal 1.00-4.8 [facility] Comment on above: Performed By: #### P JENNIFFER ADDONUAPLUS #### [address] Lymphocytes/100 WBC (Bld) 24.7 % Normal . [facility] Comment on above: Performed By: #### P JENNIFFER ADDONUAPLUS #### [address] MCH (RBC) [Entitic mass] 24.3 pg Low 27.5-35.2 [facility] Comment on above: Performed By: #### P JENNIFFER ADDONUAPLUS #### [address] MCV (RBC) [Entitic vol] 75.6 fL Low 83.5-101 [facility] Comment on above: Performed By: #### P JENNIFFER ADDONUAPLUS #### [address] Mean Corpuscular HGB Conc 32.1 g/dL Low 32.5-35.6 [facility] Comment on above: Performed By: #### P JENNIFFER ADDONUAPLUS #### [address] Monocytes (Bld) [#/Vol] 0.7 10*3/uL Normal 0.0-0.8 [facility] Comment on above: Performed By: #### P JENNIFFER ADDONUAPLUS #### [address] Monocytes/100 WBC (Bld) 14.1 % Normal . [facility] Comment on above: Performed By: #### P JENNIFFER ADDONUAPLUS #### [address] Neutrophils (Bld) [#/Vol] 3.0 10*3/uL Normal 1.8-7.7 [facility] Comment on above: Performed By: #### P JENNIFFER ADDONUAPLUS #### [address] Neutrophils/100 WBC (Bld) 58.8 % Normal . [facility] Comment on above: Performed By: #### P JENNIFFER ADDONUAPLUS #### [address] NRBC% 0.2 /100{WBC} Normal 0-0.5 [facility] Comment on above: Performed By: #### P JENNIFFER ADDONUAPLUS #### [address] Platelet mean volume (Bld) [Entitic vol] 6.6 fL Normal 6.6-10.1 [facility] Comment on above: Performed By: #### P JENNIFFER ADDONUAPLUS #### [address] Platelets (Bld) [#/Vol] 218 10*3/uL Normal 150-450 [facility] Comment on above: Performed By: #### P JENNIFFER ADDONUAPLUS #### [place] [address] [place] RBC (Bld) [#/Vol] 4.23 10*6/uL Normal 3.90-5.60 [facility] Comment on above: Performed By: #### P JENNIFFER ADDONUAPLUS #### [address] WBC (Bld) [#/Vol] 5.1 10*3/uL Normal 4.1-10.5 [facility] Comment on above: Performed By: #### P JENNIFFER ADDONUAPLUS #### [address] Creatinine [Mass/volume] in Serum or PlasmaOrdered By: Magy Cummings on 09-03-2024 Creatinine [Mass/Vol] Creatinine [Mass/volume] in Serum or Plasma High 0.70-1.30 [facility] Creatinine [Mass/volume] in UrineOrdered By: Magy Cummings on 09-03-2024 Creatinine (U) [Mass/Vol] Creatinine [Mass/volume] in Urine [facility] Comment on above: No reference range e stablished Dipstick and Microscopicon 1 11-03-2023 Appearance (U) Clear Normal Clear [facility] Comment on above: Order Comment: Reaso n for Exam Chronic kidney disease, stage 3 unspecified;Kade hy kid w cr Performed By: #### R ENAL #### [place] [address] [place] Bacteria,Urine Rare Normal None Seen [facility] Comment on above: Order Comment: Reaso n for Exam Chronic kidney disease, stage 3 unspecified;Kade hy kid w cr Performed By: #### R ENAL #### [facility] [address] Bilirubin,Urine Negative Normal Negative [facility] Comment on above: Order Comment: Reaso n for Exam Chronic kidney disease, stage 3 unspecified;Kade hy kid w cr Performed By: #### R ENAL #### [address] Color (U) Light-Yellow Normal Yellow [facility] Comment on above: Order Comment: Reaso n for Exam Chronic kidney disease, stage 3 unspecified;Kade hy kid w cr Performed By: #### R ENAL #### [address] Glucose Ql (U) >= High Normal [facility] Comment on above: Order Comment: Reaso n for Exam Chronic kidney disease, stage 3 unspecified;Kade hy kid w cr Performed By: #### R ENAL #### [address] Hyaline Casts,Urine 0 [LPF] Normal 0-8 [facility] Comment on above: Order Comment: Reaso n for Exam Chronic kidney disease, stage 3 unspecified;Kade hy kid w cr Performed By: #### R ENAL #### [address] Ketones Ql (U) Negative Normal Negative [facility] Comment on above: Order Comment: Reaso n for Exam Chronic kidney disease, stage 3 unspecified;Kade hy kid w cr Performed By: #### R ENAL #### [address] Leukocyte esterase Test strip Ql (U) Negative Normal Negative [facility] Comment on above: Order Comment: Reaso n for Exam Chronic kidney disease, stage 3 unspecified;Kade hy kid w cr Performed By: #### R ENAL #### [address] Mucus,Urine Rare Normal [facility] Comment on above: Order Comment: Reaso n for Exam Chronic kidney disease, stage 3 unspecified;Kade hy kid w cr Result Comment: PERF ORMED BY: [place] [address] PATHOLOGIST [employer] DEVELOPMENT INSTRUCTOR GRANT SCHNEIDER M.D. Performed By: #### R ENAL #### [address] Nitrite,Urine Negative Normal Negative [facility] Comment on above: Order Comment: Reaso n for Exam Chronic kidney disease, stage 3 unspecified;Kade hy kid w cr Performed By: #### R ENAL #### [address] Occult Blood,Urine Negative Normal Negative [facility] Comment on above: Order Comment: Reaso n for Exam Chronic kidney disease, stage 3 unspecified;Kade hy kid w cr Performed By: #### R ENAL #### [address] pH (U) 6.0 [pH] Normal 5.0-9.0 [facility] Comment on above: Order Comment: Reaso n for Exam Chronic kidney disease, stage 3 unspecified;Kade hy kid w cr Performed By: #### R ENAL #### [address] Protein (U) [Mass/Vol] 70 mg/dL High Negative Th e [facility] Comment on above: Order Comment: Reaso n for Exam Chronic kidney disease, stage 3 unspecified;Kade hy kid w cr Performed By: #### R ENAL #### [place] [address] [place] RBC,Urine 1 [HPF] Normal 0-4 [facility] Comment on above: Order Comment: Reaso n for Exam Chronic kidney disease, stage 3 unspecified;Kade hy kid w cr Performed By: #### R ENAL #### [place] [address] [place] Specificy [place],Urine 1.013 Normal 1.001-1.030 [facility] Comment on above: Order Comment: Reaso n for Exam Chronic kidney disease, stage 3 unspecified;Kade hy kid w cr Result Comment: Rech ecked by refractometer Performed By: #### R ENAL #### [facility] [address] Urobilinogen,Urine Normal Normal Normal [facility] Comment on above: Order Comment: Reaso n for Exam Chronic kidney disease, stage 3 unspecified;Kade hy kid w cr Performed By: #### R ENAL #### [facility] [address] WBC,Urine 1 [HPF] Normal 0-4 [facility] Comment on above: Order Comment: Reaso n for Exam Chronic kidney disease, stage 3 unspecified;Kade hy kid w cr Performed By: #### R ENAL #### [facility] [address] [place] [address] [place] Eosinophils Auto (Bld) [#/Vo l]Ordered By: Magy Julior on 09-03-2024 Eosinophils (Bld) [#/Vol] Automated eosinophil count 0.0-0.45 [facility] Eosinophils/100 WBC Auto (Bl d)Ordered By: Magy Julior on 09-03-2024 Eosinophils/100 WBC (Bld) Automated eosinophil % . [facility] Epithelial cells.squamous [# /area] in Urine sediment by Automated countOrdered By: Magy Julior on 09-03-2024 Epithelial cells.squamous Auto (Urine sed) [#/Area] Epithelial cells.squamous [#/area] in Urine sediment by Automated count [facility] Erythrocyte distribution wid th Auto (RBC) [Ratio]Ordered By: Magy Julior on 09-03-2024 Erythrocyte distribution width (RBC) [Ratio] Erythrocyte distribution width [Ratio] by Automated count High 12.0-14.8 [facility] Erythrocytes [#/area] in Uri ne sediment by Automated countOrdered By: Magy Julior on 09-03-2024 RBC Auto (Urine sed) [#/Area] Erythrocytes [#/area] in Urine sediment by Automated count 0-4 [facility] Ferritinon 09-03-2024 Ferritin [Mass/Vol] 30.7 ng/mL Normal 23.9-336.2 [facility] Comment on above: Order Comment: Reaso n for Exam Chronic kidney disease, stage 3 unspecified;Kade hy kid w cr Reason for Exam: Chronic kidney disease, stage 3 unspecified;Kade w cr Performed By: #### M G, URIC, FE and TIBC, FRANKY, [id number] #### [facility] [address] Ferritin [Mass/volume] in Se rum or PlasmaOrdered By: Magy Cummings on 09-03-2024 Ferritin [Mass/Vol] Ferritin [Mass/volum e] in Serum or Plasma 23.9-336.2 [facility] Glucose [Mass/volume] in Ser um or PlasmaOrdered By: Magy Cummings on 09-03-2024 Glucose [Mass/Vol] Glucose [Mass/volume ] in Serum or Plasma 70-100 [facility] Comment on above: ADA recommended refe rence rangeRandom Glucose Reference Range is dependent on time and content of last meal. Glucose of more than 200 mg/dL in a nonstressed, ambulatory subject supports the diagnosis of Diabetes Mellitus. Glucose [Mass/volume] in Uri ne by Test stripOrdered By: Magy Cummings on 09-03-2024 Glucose Test strip (U) [Mass/Vol] Glucose [Mass/volume] in Urine by Test strip High Normal [facility] Hematocrit Auto (Bld) [Volum e fraction]Ordered By: Magy Cummigns on 09-03-2024 Hematocrit (Bld) [Volume fraction] Hematocrit [Volume Fraction] of Blood by Automated count Low 38.8-50.0 [facility] Hemoglobin Test strip Ql (U) Ordered By: Magy Cummings on 09-03-2024 Hemoglobin Ql (U) Hemoglobin [Presence ] in Urine by Test strip Negative [facility] Hemoglobin [Mass/volume] in BloodOrdered By: Magy Cummings on 09-03-2024 Hemoglobin (Bld) [Mass/Vol] Hemoglobin [Mass/volume] in Blood Low 13.0-17.0 [facility] Hyaline casts [#/area] in Ur ine sediment by Automated countOrdered By: Magy Cummings on 09-03-2024 Hyaline casts Auto (Urine sed) [#/Area] Hyaline casts [#/area] in Urine sediment by Automated count 0-8 [facility] Iron [Mass/volume] in Serum or PlasmaOrdered By: Magy Cummings on 09-03-2024 Iron [Mass/Vol] Iron [Mass/volume] i n Serum or Plasma Low 50-212 [facility] Iron and TIBC Profileon 08-16 % Iron Saturation 10.0 % Low 20-50 [facility] Comment on above: Order Comment: Reaso n for Exam Chronic kidney disease, stage 3 unspecified;Kade hy kid w cr Reason for Exam: Chronic kidney disease, stage 3 unspecified;Kade hy kid w cr Performed By: #### M G, URIC, FE and TIBC, FRANKY, [id number] #### [facility] [address] [place] [address] [facility] Iron [Mass/Vol] 32 ug/dL Low 50-212 [facility] Comment on above: Order Comment: Reaso n for Exam Chronic kidney disease, stage 3 unspecified;Kade hy kid w cr Reason for Exam: Chronic kidney disease, stage 3 unspecified;Kade hy kid w cr Performed By: #### M G, URIC, FE and TIBC, FRANKY, [id number] #### [facility] [address] [place] [id number] [facility] Total Iron Binding Capacity 319 ug/dL Normal 255-450 [facility] Comment on above: Order Comment: Reaso n for Exam Chronic kidney disease, stage 3 unspecified;Kade hy kid w cr Reason for Exam: Chronic kidney disease, stage 3 unspecified;Kade hy kid w cr Performed By: #### M G, URIC, FE and TIBC, FRANKY, [id number] #### [facility] [address] [place] [address] [facility] Transferrin [Mass/Vol] 228 mg/dL Normal 203-362 [facility] Comment on above: Order Comment: Reaso n for Exam Chronic kidney disease, stage 3 unspecified;Kade hy kid w cr Reason for Exam: Chronic kidney disease, stage 3 unspecified;Kade hy kid w cr Performed By: #### M G, URIC, FE and TIBC, FRANKY, [id number] #### [facility] [address] [place] [address] [facility] Ketones Test strip Ql (U)Ord ered By: Magy Cummings on 09-03-2024 Ketones Ql (U) Ketones [Presence] i n Urine by Test strip Negative [facility] Leukocyte esterase [Presence ] in Urine by Test stripOrdered By: Magy Cummings on 09-03-2024 Leukocyte esterase Test strip Ql (U) Leukocyte esterase [Presence] in Urine by Test strip Negative [facility] Leukocytes [#/area] in Urine sediment by Automated countOrdered By: Magy Cummings on 09-03-2024 WBC Auto (Urine sed) [#/Area] Leukocytes [#/area] in Urine sediment by Automated count 0-4 [facility] Leukocytes [#/volume] correc anna for nucleated erythrocytes in Blood by Automated counOrdered By: Magy Cummings on 09-03-2024 WBC corrected for nucl RBC Auto (Bld) [#/Vol] Leukocytes [#/volume] corrected for nucleated erythrocytes in Blood by Automated coun 4.1-10.5 [facility] Lymphocytes Auto (Bld) [#/Vo l]Ordered By: Magy Cummings on 09-03-2024 Lymphocytes (Bld) [#/Vol] Lymphocytes [#/volume] in Blood by Automated count 1.00-4.8 [facility] Lymphocytes/100 WBC Auto (Bl d)Ordered By: Magy Cummings on 09-03-2024 Lymphocytes/100 WBC (Bld) Lymphocytes/100 leukocytes in Blood by Automated count . [facility] MCH Auto (RBC) [Entitic mass ]Ordered By: Magy Cummings on 09-03-2024 MCH (RBC) [Entitic mass] MCH [Entitic mass] by Automated count Low 27.5-35.2 [facility] MCHC Auto (RBC) [Mass/Vol]Or dered By: Magy Cummings on 09-03-2024 MCHC (RBC) [Mass/Vol] MCHC [Mass/volume] by Automated count Low 32.5-35.6 [facility] MCV Auto (RBC) [Entitic vol] Ordered By: Magy Cummings on 09-03-2024 MCV (RBC) [Entitic vol] MCV [Entitic vol ume] by Automated count Low 83.5-101 [facility] Magnesiumon 09-03-2024 Magnesium [Mass/Vol] 2.1 mg/dL Normal 1.9-2.7 [facility] Comment on above: Order Comment: Reaso n for Exam Chronic kidney disease, stage 3 unspecified;Kade kid w cr Reason for Exam: Chronic kidney disease, stage 3 unspecified;Kade hy kid w cr Performed By: #### M G, URIC, FE and TIBC, FRANKY, [id number] #### [address] Magnesium [Mass/volume] in S zoey or PlasmaOrdered By: Magy Cummings on 09-03-2024 Magnesium [Mass/Vol] Magnesium [Mass/volume] in Serum or Plasma 1.9-2.7 [facility] Monocytes Auto (Bld) [#/Vol] Ordered By: Magy Giordanodir on 09-03-2024 Monocytes (Bld) [#/Vol] Automated blood monocyte count 0.0-0.8 [facility] Monocytes/100 WBC Auto (Bld) Ordered By: Magy Emiliano on 09-03-2024 Monocytes/100 WBC (Bld) Automated monocyte % . [facility] Mucus [Presence] in Urine by AutomatedOrdered By: Magy Cummings on 09-03-2024 Mucus Auto Ql (U) Mucus [Presence] in Urine by Automated [facility] NT-proBNPon 09-03-2024 Natriuretic peptide B (Bld) [Mass/Vol] 7564 pg/mL High 0-376 [facility] Comment on above: Result Comment: The following cut-points have been suggested for the use of proBNP for the diagnostic evaluation of heart failure (HF) in patients with acute dyspnea: Modality Age Optimal Cut (years) Point Diagnosis (rule in HF) <50 450 pg/mL 50 - 75 900 pg/mL >75 1800 pg/mL Exclusion (rule out HF) Age independent 300 pg/mL Performed at: [address], [place], [place] [id number] [employer] Rol[employer] Polisher: Contreras Pollard PhD, Phone: [phone] PERFORMED BY: [facility] [address] [place] [address] PATHOLOGIST [employer] DEVELOPMENT INSTRUCTOR GRANT SCHNEIDER M.D. Performed By: #### P KATIE ABAD #### [facility] [address] Natriuretic peptide.B prohor mickey N-Terminal [Mass/volume] in Serum or PlasmaOrdered By: NON STAFF on 09-03-2024 Natriuretic peptide.B prohormone N-Terminal [Mass/Vol] Natriuretic peptide.B prohormone N-Terminal [Mass/volume] in Serum or Plasma High 0-376 [facility] Comment on above: The following cut-po ints have been suggested for theuse of proBNP for the diagnostic evaluation of heartfailure (HF) in patients with acute dyspnea:Modality Age Optimal Cut (years) Point Erica gnosis (rule in HF) <50 450 pg/mL 50 - 75 900 pg/mL >75 1800 pg/mLExclusion (rule out HF) Age independent 300 pg/mLPerformed at: - [facility] [place], [place] [id number] Director: Contreras Pollard PhD, Phone: [phone] Neutrophils Auto (Bld) [#/Vo l]Ordered By: Magy Cummings on 09-03-2024 Neutrophils (Bld) [#/Vol] Neutrophils [#/volume] in Blood by Automated count 1.8-7.7 [facility] Neutrophils/100 WBC Auto (Bl d)Ordered By: Magy Cummings on 09-03-2024 Neutrophils/100 WBC (Bld) Automated neutrophil % . [facility] Nitrite Test strip Ql (U)Ord ered By: Magy Cummings on 09-03-2024 Nitrite Ql (U) Nitrite [Presence] i n Urine by Test strip Negative [facility] No Panel InformationOrdered By: Magy Cummings on 09-03-2024 Estimated GFR (CKD-EPI) 33.016 mL/Min [facility] Creatinine Clearance (Chem N/A [facility] Nucleated erythrocytes [Pres ence] in Blood by Automated countOrdered By: Magy Cummings on 09-03-2024 Nucleated RBC Auto Ql (Bld) Nucleated erythrocytes [Presence] in Blood by Automated count 0-0.5 [facility] Parathyrin.intact [Mass/volu me] in Serum or PlasmaOrdered By: Magy Cummings on 09-03-2024 Parathyrin.intact [Mass/Vol] Parathyrin.intact [Mass/volume] in Serum or Plasma [facility] Parathyroid Hormone Intacton 09-03-2024 Parathyroid Hormone Intact 79.3 pg/mL Normal [facility] Comment on above: Order Comment: Reaso n for Exam Chronic kidney disease, stage 3 unspecified;Kade tilley w cr Result Comment: PERF ORMED BY: [place] [address] PATHOLOGIST [employer] DEVELOPMENT INSTRUCTOR GRANT SCHNEIDER M.D. Performed By: #### P TH #### [address] Phosphate [Mass/volume] in S zoey or PlasmaOrdered By: Magy Cummings on 09-03-2024 Phosphate [Mass/Vol] Phosphate [Mass/volume] in Serum or Plasma 2.5-4.5 [facility] Platelet mean volume Auto (B ld) [Entitic vol]Ordered By: Magy Cummings on 09-03-2024 Platelet mean volume (Bld) [Entitic vol] Platelet mean volume [Entitic volume] in Blood by Automated count 6.6-10.1 [facility] Platelets Auto (Bld) [#/Vol] Ordered By: Magy Cummings on 09-03-2024 Platelets (Bld) [#/Vol] Platelets [#/vol ume] in Blood by Automated count 150-450 [facility] Potassium [Moles/volume] in Serum or PlasmaOrdered By: Magy Cummings on 09-03-2024 Potassium [Moles/Vol] Potassium [Moles/volume] in Serum or Plasma 3.5-5.1 [facility] Protein Creat Ratio Ur Rando mon 09-03-2024 Creatinine, Urine (Random) 46.00 mg/dL Normal [facility] Comment on above: Order Comment: Reaso n for Exam Chronic kidney disease, stage 3 unspecified;Kade hy kid w cr Result Comment: No r eference range established Performed By: #### P ROCRERAT #### [facility] [address] [place] [address] Protein (U) [Mass/Vol] 108 mg/dL High 0-9 [facility] Comment on above: Order Comment: Reaso n for Exam Chronic kidney disease, stage 3 unspecified;Kade hy kid w cr Performed By: #### P ROCRERAT #### [facility] [address] [place] [address] Urine Protein/Creatinine Ratio 2348 mg/g{Cre} High 0-200 [facility] Comment on above: Order Comment: Reaso n for Exam Chronic kidney disease, stage 3 unspecified;Kade hy kid w cr Result Comment: PERF ORMED BY: [place] [address] PATHOLOGIST LEADERSHIP DEVELOPMENT INSTRUCTOR GRANT SCHNEIDER M.D. Performed By: #### P ROCRERAT #### [facility] [address] [place] [address] Protein Test strip (U) [Mass /Vol]Ordered By: Magy Cummings on 09-03-2024 Protein (U) [Mass/Vol] Protein [Mass/vol ume] in Urine by Test strip High Negative [facility] Protein [Mass/volume] in Uri neOrdered By: Magy Emiliano on 09-03-2024 Protein (U) [Mass/Vol] Protein [Mass/vol ume] in Urine High 0-9 [facility] RBC Auto (Bld) [#/Vol]Ordere d By: Magy Cummings on 09-03-2024 RBC (Bld) [#/Vol] Erythrocytes [#/volume] in Blood by Automated count 3.90-5.60 [facility] Renal Function Panelon 09-03 Albumin [Mass/Vol] 3.6 g/dL Normal 3.5-5.7 [facility] Comment on above: Order Comment: Reaso n for Exam Chronic kidney disease, stage 3 unspecified;Kade hy kid w cr Result Comment: PERF ORMED BY: [place] [address] PATHOLOGIST LEADERSHIP DEVELOPMENT INSTRUCTOR GRANT SCHNEIDER M.D. Performed By: #### R ENAL #### [facility] [address] [place] [address] Anion gap [Moles/Vol] 8.1 mmol/L Normal 6.0-15.0 [facility] Comment on above: Order Comment: Reaso n for Exam Chronic kidney disease, stage 3 unspecified;Kade hy kid w cr Performed By: #### R ENAL #### [facility] [address] [place] [address] Calcium [Mass/Vol] 9.7 mg/dL Normal 8.6-10.3 [facility] Comment on above: Order Comment: Reaso n for Exam Chronic kidney disease, stage 3 unspecified;Kade hy kid w cr Performed By: #### R ENAL #### [facility] [address] [place] [address] [place] Chloride [Moles/Vol] 103 mmol/L Normal 98-107 [facility] Comment on above: Order Comment: Reaso n for Exam Chronic kidney disease, stage 3 unspecified;Kade hy kid w cr Performed By: #### R ENAL #### [facility] [address] [place] [address] [place] CO2 [Moles/Vol] 31.8 mmol/L High 21.0-31.0 [facility] Comment on above: Order Comment: Reaso n for Exam Chronic kidney disease, stage 3 unspecified;Kade hy kid w cr Performed By: #### R ENAL #### [facility] [address] [place] [address] [place] Creatinine [Mass/Vol] 2.09 mg/dL High 0.70-1.30 [facility] Comment on above: Order Comment: Reaso n for Exam Chronic kidney disease, stage 3 unspecified;Kade hy kid w cr Performed By: #### R ENAL #### [facility] [address] Estimated GFR 33.016 mL/Min Normal [facility] Comment on above: Order Comment: Reaso n for Exam Chronic kidney disease, stage 3 unspecified;Kade hy kid w cr Performed By: #### R ENAL #### [address] Glucose [Mass/Vol] 91 mg/dL Normal 70-100 [facility] Comment on above: Order Comment: Reaso n for Exam Chronic kidney disease, stage 3 unspecified;Kade hy kid w cr Result Comment: [facility] Glucose Reference Range is dependent on time and content of last meal. Glucose of more than 200 mg/dL in a nonstressed, ambulatory subject supports the diagnosis of Diabetes Mellitus. ADA recommended reference range Performed By: #### R ENAL #### [address] Phosphate [Mass/Vol] 3.4 mg/dL Normal 2.5-4.5 [facility] Comment on above: Order Comment: Reaso n for Exam Chronic kidney disease, stage 3 unspecified;Kade hy kid w cr Performed By: #### R ENAL #### [place] [address] [place] Potassium [Moles/Vol] 3.9 mmol/L Normal 3.5-5.1 [facility] Comment on above: Order Comment: Reaso n for Exam Chronic kidney disease, stage 3 unspecified;Kade hy kid w cr Performed By: #### R ENAL #### [facility] [address] [place] [address] [place] Sodium [Moles/Vol] 139 mmol/L Normal 136-145 [facility] Comment on above: Order Comment: Reaso n for Exam Chronic kidney disease, stage 3 unspecified;Kade hy kid w cr Performed By: #### R ENAL #### [facility] [address] Urea nitrogen [Mass/Vol] 22 mg/dL Normal 7-25 [facility] Comment on above: Order Comment: Reaso n for Exam Chronic kidney disease, stage 3 unspecified;Kade hy kid w cr Performed By: #### R ENAL #### [facility] [address] Serum or plasma anion gap de terminationOrdered By: Magy Cummings on 09-03-2024 Anion gap [Moles/Vol] Serum or plasma an ion gap determination 6.0-15.0 [facility] Serum or plasma iron binding capacity measurement (mass/volume)Ordered By: Magy Cummings on 09-03-2024 Iron binding capacity [Mass/Vol] Iron binding capacity [Mass/volume] in Serum or Plasma 255-450 [facility] Serum or plasma iron saturat ion measurement (mass fraction)Ordered By: Magy Cummings on 09-03-2024 Iron saturation [Mass fraction] Iron saturation [Mass Fraction] in Serum or Plasma Low 20-50 [facility] Sodium [Moles/volume] in Ser um or PlasmaOrdered By: Magy Emiliano on 09-03-2024 Sodium [Moles/Vol] Sodium [Moles/volume ] in Serum or Plasma 136-145 [facility] Specific gravity of Urine by RefractometryOrdered By: Magy Cummings on 09-03-2024 Specific gravity Refractometry (U) [Rel density] Specific gravity of Urine by Refractometry 1.001-1.030 [facility] Comment on above: Rechecked by refract ometer Transferrin [Mass/volume] in Serum or PlasmaOrdered By: Magy Emiliano on 09-03-2024 Transferrin [Mass/Vol] Transferrin [Mass/volume] in Serum or Plasma 203-362 [facility] Urate [Mass/volume] in Serum or PlasmaOrdered By: Magy Emiliano on 09-03-2024 Urate [Mass/Vol] Urate [Mass/volume] in Serum or Plasma 4.4-7.6 [facility] Urea nitrogen [Mass/volume] in Serum or PlasmaOrdered By: Magy Cummings on 09-03-2024 Urea nitrogen [Mass/Vol] Urea nitrogen [Mass/volume] in Serum or Plasma 7-25 [facility] Uric Acidon 09-03-2024 Urate [Mass/Vol] 7.0 mg/dL Normal 4.4-7.6 [facility] Comment on above: Order Comment: Reaso n for Exam Chronic kidney disease, stage 3 unspecified;Kade hy kid w cr Reason for Exam: Chronic kidney disease, stage 3 unspecified;Kade hy kid w cr Performed By: #### M G, URIC, FE and TIBC, FRANKY, [id number] #### [facility] [address] [place] [id number] [facility] Urine protein/creatinine rat ioOrdered By: Magy Cummings on 09-03-2024 Protein/Creatinine (U) [Ratio] Urine protein/creatinine ratio High 0-200 [facility] Urobilinogen Test strip (U) [Mass/Vol]Ordered By: Magy Cummings on 09-03-2024 Urobilinogen (U) [Mass/Vol] Urobilinogen [Mass/volume] in Urine by Test strip Normal [facility] Vitamin D 25 Hydroxy Totalon 09-03-2024 Vitamin D 25 Hydroxy Total 29.1 ng/mL Low 30-100 [facility] Comment on above: Order Comment: Name Collection Type:: Voided Result Comment: SHI MIN D STATUS 25(OH)VITAMIN D RANGE (ng/mL) Deficient <20 Insufficient 20 to <30 Sufficient 30 to 100 Reference: Sarah MF,Jamal NC, Chuckie MENDOZA, et al. Evaluation,treatment, and prevention of vitamin D deficiency; an Endocrine Society clinical practice guideline. JCEM. 2010; 96(7):1911-30. PERFORMED BY: [facility] [address] [place] [address] PATHOLOGIST LEADERSHIP DEVELOPMENT INSTRUCTOR GRANT SCHNEIDER M.D. Performed By: #### P KATIE ABAD #### [facility] [address] [place] [id number] [facility] Vitamin D+Metabolites [Mass/ volume] in Serum or PlasmaOrdered By: Magy Cummings on 09-03-2024 Vitamin D+Metabolites [Mass/Vol] Vitamin D+Metabolites [Mass/volume] in Serum or Plasma Low 30-100 [facility] Comment on above: VITAMIN D STATUS 25( OH)VITAMIN D RANGE (ng/mL) Deficient <20 Insufficient 20 to <30Sufficient 30 to 100Reference: Sarah MF,Jamal NC, Chuckie MENDOZA, et al. Evaluation,treatment, and prevention of vitamin D deficiency; an Endocrine Society clinical practice guideline. JCEM. 2010; 96(7):1911-30. WBC Auto (Bld) [#/Vol]Ordere d By: Magy Cummings on 09-03-2024 WBC (Bld) [#/Vol] Leukocytes [#/volume ] in Blood by Automated count 4.1-10.5 [facility] pH Test strip (U)Ordered By: Magy Cummings on 09-03-2024 pH (U) pH of Urine by Test strip 5.0-9.0 [facility] Erythrocyte distribution wid th Auto (RBC) [Ratio]on 06-03-2024 Erythrocyte distribution width (RBC) [Ratio] 14.5 % 11.0-15.0 [facility] Estimated glomerular filtrat ion rate (GFR) non- Americanon 06-03-2024 GFR/1.73 sq M.predicted among non-blacks MDRD (S/P/Bld) [Vol rate/Area] 33 mL/min/{1.73_m2} Low >=60 [facility] Glucose mean value [Mass/vol ume] in Blood Estimated from glycated hemoglobinon 06-03-2024 Average glucose Estimated from glycated hemoglobin (Bld) [Mass/Vol] 94 mg/dL [facility] Hematocrit Auto (Bld) [Volum e fraction]on 06-03-2024 Hematocrit (Bld) [Volume fraction] 33.5 % Low 42.0-54.0 [facility] Hemoglobin [Mass/volume] in Bloodon 06-03-2024 Hemoglobin (Bld) [Mass/Vol] 10.6 g/dL Low 14.0-18.0 [facility] Laboratory - Chemistry and C hemistry - challengeon 06-03-2024 Albumin [Mass/Vol] 3.0 g/dL Low 3.4-5.0 [facility] Calcium [Mass/Vol] 9.9 mg/dL 8.5-10.1 [facility] Chloride [Moles/Vol] 101 mmol/L 98-107 [facility] CO2 [Moles/Vol] 31.9 mmol/L 21.0-32.0 [facility] Creatinine [Mass/Vol] 2.00 mg/dL High 0.70-1.30 [facility] GFR/1.73 sq M.predicted MDRD (S/P/Bld) [Vol rate/Area] 40 mL/min/{1.73_m2} Low >=60 [facility] Glucose [Mass/Vol] 106 mg/dL 74-106 [facility] Magnesium [Mass/Vol] 1.8 mg/dL 1.8-2.4 [facility] Potassium [Moles/Vol] 4.1 mmol/L 3.5-5.1 [facility] Sodium [Moles/Vol] 137 mmol/L 136-145 [facility] Urate [Mass/Vol] 7.1 mg/dL 3.5-7.2 [facility] Urea nitrogen [Mass/Vol] 20.0 mg/dL High 7.0-18.0 [facility] Urea nitrogen/Creatinine [Mass ratio] 10.0 mg/mg [facility] Bilirubin Ql (U) Negative NEGATIVE [facility] Glucose (U) [Mass/Vol] Negative NEGATIVE [facility] Ketones Ql (U) Negative NEGATIVE [facility] pH (U) 6.0 [pH] 5.0-9.0 [facility] Specific gravity (U) [Rel density] 1.025 1.005-1.025 [facility] Urobilinogen Qn (U) 1.0 {Beatriz'U}/dL 0.2-1.0 [facility] Laboratory - Hematology and Cell countson 06-03-2024 HbA1c (Bld) [Mass fraction] 4.9 % 4.5-6.2 [facility] Comment on above: ADA RECOMMENDED LIMI T 4.0 - 6.0ADA THERAPEUTIC TARGET < 7.0ACTION SUGGESTED> 7.0 Laboratory - Specimen inform ationon 06-03-2024 Appearance (U) CLEAR CLEAR [facility] Color (U) YELLOW YELLOW [facility] Laboratory - Urinalysison Hyaline casts LM Ql (Urine sed) FEW [facility] Leukocyte esterase Test strip Ql (U) Negative NEGATIVE [facility] Mucus Ql (Urine sed) SMALL Abnormal NONE SEEN [facility] Nitrite Ql (U) Negative NEGATIVE [facility] Protein (U) [Mass/Vol] 385.3 mg/dL High <=11.9 [facility] Protein Ql (U) >=300 mg/dL Abnormal NEG/TRACE [facility] Leukocytes [#/volume] correc anna for nucleated erythrocytes in Blood by Automated counon 06-03-2024 WBC corrected for nucl RBC Auto (Bld) [#/Vol] 5.9 10 3/uL 4.0-11.0 [facility] MCH Auto (RBC) [Entitic mass ]on 06-03-2024 MCH (RBC) [Entitic mass] 26.4 pg 25.9-34.0 [facility] MCHC Auto (RBC) [Mass/Vol]on 06-03-2024 MCHC (RBC) [Mass/Vol] 31.6 g/dL 29.9-35.2 [facility] MCV Auto (RBC) [Entitic vol] on 06-03-2024 MCV (RBC) [Entitic vol] 83.3 fL 80.0-94.0 [facility] No Panel Informationon 06-03 25-Hydroxy Vitamin D Total 19.9 ng/mL [facility] Comment on above: <20 ng/mL Vit D defi cient20-<30 ng/mL Vit D [id number] ng/mL Vit D sufficient>100 ng/mL Potential Toxicity Parathyroid Hormone (Intact) 53 pg/mL 15-65 [facility] Comment on above: Performed at: [address] [id number] Director: Contreras Pollard PhD, Phone: [phone] Phosphorus Level 3.1 mg/dL 2.6-4.7 [facility] Urine Bacteria NONE SEEN #/HPF NONE SEEN [facility] Urine Occult Blood Negative NEGATIVE [facility] Urine Other Casts SEEN #/LPF Abnormal NONE SEEN [facility] Urine Other Crystals None Seen #/HPF None Seen [facility] Urine Random Creatinine 145.44 mg/dL 20.00-300. 00 [facility] Urine RBC 0-2 #/HPF 0-2 [facility] Urine Squamous Epithelial Cells RARE #/LPF NONE/RARE [facility] Urine WBC 2-5 #/HPF Abnormal NONE SEEN [facility] Platelet mean volume Auto (B ld) [Entitic vol]on 06-03-2024 Platelet mean volume (Bld) [Entitic vol] 9.0 fL Low 9.5-13.5 [facility] Platelets Auto (Bld) [#/Vol] on 06-03-2024 Platelets (Bld) [#/Vol] 222 10 3/uL 150-450 [facility] RBC Auto (Bld) [#/Vol]on RBC (Bld) [#/Vol] 4.02 10 6/uL Low 4.70-6.10 [facility] Serum or plasma anion gap de terminationon 06-03-2024 Anion gap [Moles/Vol] 8.2 mmol/L [facility] Urine protein/creatinine rat ioon 06-03-2024 Protein/Creatinine (U) [Ratio] 2.65 [facility] Albumin [Mass/volume] in Ser um or Plasma by Bromocresol green (BCG) dye binding methoOrdered By: Magy Cummings on 03-06-2024 Albumin BCG dye [Mass/Vol] 3.5 g/dL 3.5-5.7 [facility] Calcium [Mass/volume] in Ser um or PlasmaOrdered By: Magy Cummings on 03-06-2024 Calcium [Mass/Vol] 9.8 mg/dL Normal 8.6-10.3 [facility] Comment on above: Performed By: #### P ROCRERAT #### [address] Carbon dioxide, total [Moles /volume] in Serum or PlasmaOrdered By: aMgy Cummings on 03-06-2024 CO2 [Moles/Vol] 31.1 mmol/L High 21.0-31.0 [facility] Comment on above: Performed By: #### P ROCRERAT #### [facility] [address] [place] [address] [place] Chloride [Moles/volume] in S zoey or PlasmaOrdered By: Magy Cummings on 03-06-2024 Chloride [Moles/Vol] 104 mmol/L Normal 98-107 [facility] Comment on above: Performed By: #### P ROCRERAT #### [facility] [address] Creatinine [Mass/volume] in Serum or PlasmaOrdered By: Magy Cummings on 03-06-2024 Creatinine [Mass/Vol] 1.81 mg/dL High 0.70-1.30 [facility] Comment on above: Performed By: #### P ROCRERAT #### [facility] [address] Glucose [Mass/volume] in Ser um or PlasmaOrdered By: Magy Cummings on 03-06-2024 Glucose [Mass/Vol] 101 mg/dL High 70-100 [facility] Comment on above: ADA recommended refe rence rangeRandom Glucose Reference Range is dependent on time and content of last meal. Glucose of more than 200 mg/dL in a nonstressed, ambulatory subject supports the diagnosis of Diabetes Mellitus. Result Comment: [place] Glucose Reference Range is dependent on time and content of last meal. Glucose of more than 200 mg/dL in a nonstressed, ambulatory subject supports the diagnosis of Diabetes Mellitus. ADA recommended reference range Performed By: #### P ROCRERAT #### [facility] [address] No Panel InformationOrdered By: Magy Cummings on 03-06-2024 Estimated GFR (CKD-EPI) 39.237 mL/Min [facility] Creatinine Clearance (Chem N/A [facility] Phosphate [Mass/volume] in S zoey or PlasmaOrdered By: Magy Emiliano on 03-06-2024 Phosphate [Mass/Vol] 2.8 mg/dL Normal 2.5-4.5 [facility] Comment on above: Performed By: #### P ROCRERAT #### [address] Potassium [Moles/volume] in Serum or PlasmaOrdered By: Magy Emiliano on 03-06-2024 Potassium [Moles/Vol] 3.5 mmol/L Normal 3.5-5.1 [facility] Comment on above: Performed By: #### P ROCRERAT #### [address] Renal Function Panelon 03-06 Albumin [Mass/Vol] 3.5 g/dL Normal 3.5-5.7 [facility] Comment on above: Result Comment: PERF ORMED BY: [place] [address] PATHOLOGIST LEADERSHIP DEVELOPMENT INSTRUCTOR SALINA BLOCK M.D. Performed By: #### P ROCRERAT #### [address] GFR/1.73 sq M.predicted MDRD (S/P/Bld) [Vol rate/Area] 39.237 mL/min/{1.73_m2} Normal [facility] Comment on above: Performed By: #### P ROCRERAT #### [address] Serum or plasma anion gap de terminationOrdered By: Magy Emiliano on 03-06-2024 Anion gap [Moles/Vol] 9.4 mmol/L Normal 6.0-15.0 [facility] Comment on above: Performed By: #### P ROCRERAT #### [address] Sodium [Moles/volume] in Ser um or PlasmaOrdered By: Magy Emiliano on 03-06-2024 Sodium [Moles/Vol] 141 mmol/L Normal 136-145 [facility] Comment on above: Performed By: #### P JENNIFFER #### [facility] [address] Urea nitrogen [Mass/volume] in Serum or PlasmaOrdered By: Magy Cummings on 03-06-2024 Urea nitrogen [Mass/Vol] 25 mg/dL Normal 7-25 [facility] Comment on above: Performed By: #### P JENNIFFER #### [address] Automated erythrocytes count in urine sediment (number/area)Ordered By: Magy Cummings on 02-15-2024 RBC Auto (Urine sed) [#/Area] 3-4 [HPF] 0-4 [facility] Automated leukocytes count i n urine sediment (number/area)Ordered By: Magy Cummings on 02-15-2024 WBC Auto (Urine sed) [#/Area] 3-4 [HPF] 0-4 [facility] Automated urine color determ inationOrdered By: Magy Cummings on 02-15-2024 Color (U) Yellow Normal Yellow [facility] Comment on above: Order Comment: Name Collection Type:: Voided Performed By: #### P JENNIFFER, ADDONUAPLUS #### [facility] [address] [place] [address] Automated urine hyaline cast s count (number/volume)Ordered By: Magy Cummings on 02-15-2024 Hyaline casts Auto (U) [#/Vol] 10-19 [LPF] 0-1 [facility] Bilirubin Test strip Ql (U)O rdered By: Magy Cummings on 02-15-2024 Bilirubin Ql (U) Negative Negative [facility] Casts typing in urine sedime nt by light microscopyOrdered By: Magy Cummings on 02-15-2024 Casts LM Nom (Urine sed) None seen [LPF] None Seen [facility] Creatinine [Mass/volume] in UrineOrdered By: Magy Cummings on 02-15-2024 Creatinine (U) [Mass/Vol] 157.0 mg/dL [facility] Comment on above: No reference range e stablished Dipstick and Microscopicon 0 02-15-2024 Appearance (U) Clear Normal Clear [facility] Comment on above: Order Comment: Name Collection Type:: Voided Performed By: #### P ROCRERAT, ADDONUAPLUS #### [facility] [address] [place] [address] Bacteria,Urine None Seen Normal None Seen [facility] Comment on above: Order Comment: Name Collection Type:: Voided Performed By: #### P ROCRERAT, ADDONUAPLUS #### [place] [address] [place] Bilirubin,Urine Negative Normal Negative [facility] Comment on above: Order Comment: Name Collection Type:: Voided Performed By: #### P ROCRERAT, ADDONUAPLUS #### [address] Glucose Ql (U) 250 mg/dL High Normal [facility] Comment on above: Order Comment: Name Collection Type:: Voided Performed By: #### P ROCRERAT, ADDONUAPLUS #### [facility] [address] [place] [address] [place] Hyaline Casts,Urine 10-19 High 0-1 [facility] Comment on above: Order Comment: Name Collection Type:: Voided Performed By: #### P ROCRERAT, ADDONUAPLUS #### [facility] [address] [place] [address] [place] Ketones Ql (U) Negative Normal Negative [facility] Comment on above: Order Comment: Name Collection Type:: Voided Performed By: #### P ROCRERAT, ADDONUAPLUS #### [facility] [address] [place] [address] [place] Leukocyte esterase Test strip Ql (U) Negative Normal Negative [facility] Comment on above: Order Comment: Name Collection Type:: Voided Performed By: #### P ROCRERAT, ADDONUAPLUS #### [facility] [address] [place] [address] [place] Nitrite,Urine Negative Normal Negative [facility] Comment on above: Order Comment: Name Collection Type:: Voided Performed By: #### P ROCRERAT, ADDONUAPLUS #### [address] Occult Blood,Urine Trace High Negative [facility] Comment on above: Order Comment: Name Collection Type:: Voided Performed By: #### P ROCRERAT, ADDONUAPLUS #### [address] Other Casts,Urine None Seen Normal None Seen [facility] Comment on above: Order Comment: Name Collection Type:: Voided Result Comment: PERF ORMED BY: [place] [address] PATHOLOGIST LEADERSHIP DEVELOPMENT INSTRUCTOR SALINA BLOCK M.D. Performed By: #### P ROCRERAT, ADDONUAPLUS #### [place] [address] [place] Protein,Urine >=1000 High Negative [facility] Comment on above: Order Comment: Name Collection Type:: Voided Performed By: #### P ROCRERAT, ADDONUAPLUS #### [place] [address] [place] RBC,Urine 3-4 Normal 0-4 [facility] Comment on above: Order Comment: Name Collection Type:: Voided Performed By: #### P ROCRERAT, ADDONUAPLUS #### [place] [address] [place] Specificy [place],Urine 1.026 Normal 1.001-1.030 [facility] Comment on above: Order Comment: Name Collection Type:: Voided Performed By: #### P ROCRERAT, ADDONUAPLUS #### [place] [address] [place] Squamous Epithelial Cell,Urine 3-4 High 0-2 [facility] Comment on above: Order Comment: Name Collection Type:: Voided Performed By: #### P ROCRERAT, ADDONUAPLUS #### [address] [address] [place] Urobilinogen,Urine Normal Normal Normal [facility] Comment on above: Order Comment: Name Collection Type:: Voided Performed By: #### P ROCRERAT, ADDONUAPLUS #### [facility] [address] WBC,Urine 3-4 Normal 0-4 [facility] Comment on above: Order Comment: Name Collection Type:: Voided Performed By: #### P ROCRERAT, ADDONUAPLUS #### [address] Ketones Auto test strip (U) [Mass/Vol]Ordered By: Magy Giordanodir on 02-15-2024 Ketones (U) [Mass/Vol] Negative Negative [facility] Nitrite Test strip Ql (U)Ord ered By: Magy Emiliano on 02-15-2024 Nitrite Ql (U) Negative Negative [facility] Protein Auto test strip (U) [Mass/Vol]Ordered By: Magy Emiliano on 02-15-2024 Protein (U) [Mass/Vol] mg/dL Negative [facility] Protein Creat Ratio Ur Rando mon 02-15-2024 Creatinine, Urine (Random) 157.0 mg/dL Normal [facility] Comment on above: Result Comment: No r eference range established Performed By: #### P ROCRERAT, ADDONUAPLUS #### [facility] [address] [place] [address] [place] Protein, Urine (Random) > 600 High 0-9 [facility] Comment on above: Performed By: #### P ROCRERAT, ADDONUAPLUS #### [address] Urine Protein/Creatinine Ratio Not performed Normal 0-200 [facility] Comment on above: Result Comment: PERF ORMED BY: [place] [address] PATHOLOGIST LEADERSHIP DEVELOPMENT INSTRUCTOR SALINA BLOCK M.D. Performed By: #### P ROCRERAT, ADDONUAPLUS #### [facility] [address] [place] [id number] [place] Protein [Mass/volume] in Uri neOrdered By: Magy Cummings on 02-15-2024 Protein (U) [Mass/Vol] mg/dL 0-9 [facility] Specific gravity Auto test s trip (U) [Rel density]Ordered By: Magy Cummings on 02-15-2024 Specific gravity (U) [Rel density] 1.026 1.001-1.030 [facility] Squamous epithelial cells de tection in urine sediment by light microscopyOrdered By: Magy Cummings on 02-15-2024 Epithelial cells.squamous LM Ql (Urine sed) 3-4 [HPF] 0-2 [facility] Urine bacteria detection by automated methodOrdered By: Magy Cummings on 02-15-2024 Bacteria Auto Ql (U) None seen [HPF] None Seen [facility] Urine clarity by refractomet ry automatedOrdered By: Magy Cummings on 02-15-2024 Clarity Refractometry automated (U) Clear Clear [facility] Urine glucose measurement by automated test strip (mass/volume)Ordered By: Magy Cummings on 02-15-2024 Glucose Auto test strip (U) [Mass/Vol] 250 mg/dL Normal [facility] Urine hemoglobin detection b y automated test stripOrdered By: Magy Cummings on 02-15-2024 Hemoglobin Auto test strip Ql (U) Trace Negative [facility] Urine leukocyte esterase det ection by automated test stripOrdered By: Magy Cummings on 02-15-2024 Leukocyte esterase Auto test strip Ql (U) Negative Negative [facility] Urine pH measurement by auto mated test stripOrdered By: Magy Cummings on 02-15-2024 pH (U) 6.0 [pH] Normal 5.0-9.0 [facility] Comment on above: Order Comment: Name Collection Type:: Voided Performed By: #### P KATIE ABAD #### [facility] [address] [place] [address] [place] Urine protein/creatinine rat ioOrdered By: Magy Cummings on 02-15-2024 Protein/Creatinine (U) [Ratio] TNP [facility] Comment on above: Test not performed Urobilinogen Auto test strip (U) [Mass/Vol]Ordered By: Magy Cummings on 02-15-2024 Urobilinogen (U) [Mass/Vol] Normal mg/dL Normal [facility] Albumin [Mass/volume] in Ser um or Plasma by Bromocresol green (BCG) dye binding methoOrdered By: Magy Cummings on 02-14-2024 Albumin BCG dye [Mass/Vol] 3.6 g/dL 3.5-5.7 [facility] Calcium [Mass/volume] in Ser um or PlasmaOrdered By: Magy Cummings on 02-14-2024 Calcium [Mass/Vol] 9.3 mg/dL Normal 8.6-10.3 [facility] Comment on above: Performed By: #### R ENAL #### [facility] [address] [place] [address] [place] Carbon dioxide, total [Moles /volume] in Serum or PlasmaOrdered By: Magy Cummings on 02-14-2024 CO2 [Moles/Vol] 30.7 mmol/L Normal 21.0-31.0 [facility] Comment on above: Performed By: #### R ENAL #### [facility] [address] [place] [address] [place] Chloride [Moles/volume] in S zoey or PlasmaOrdered By: Magy Cummings on 02-14-2024 Chloride [Moles/Vol] 102 mmol/L Normal 98-107 [facility] Comment on above: Performed By: #### R ENAL #### [facility] [address] [place] [address] [place] Creatinine [Mass/volume] in Serum or PlasmaOrdered By: Magy Cummings on 02-14-2024 Creatinine [Mass/Vol] 1.76 mg/dL High 0.70-1.30 [facility] Comment on above: Performed By: #### R ENAL #### [facility] [address] [place] [address] [place] Glucose [Mass/volume] in Ser um or PlasmaOrdered By: Magy Cummings on 02-14-2024 Glucose [Mass/Vol] 113 mg/dL High 70-100 [facility] Comment on above: ADA recommended refe rence rangeRandom Glucose Reference Range is dependent on time and content of last meal. Glucose of more than 200 mg/dL in a nonstressed, ambulatory subject supports the diagnosis of Diabetes Mellitus. Result Comment: [place] om Glucose Reference Range is dependent on time and content of last meal. Glucose of more than 200 mg/dL in a nonstressed, ambulatory subject supports the diagnosis of Diabetes Mellitus. ADA recommended reference range Performed By: #### R ENAL #### [facility] [address] [place] [address] No Panel InformationOrdered By: Magy Cummings on 02-14-2024 Estimated GFR (CKD-EPI) 40.578 mL/Min [facility] Creatinine Clearance (Chem N/A [facility] Phosphate [Mass/volume] in S zoey or PlasmaOrdered By: Magy Cummings on 02-14-2024 Phosphate [Mass/Vol] 3.1 mg/dL Normal 2.5-4.5 [facility] Comment on above: Performed By: #### R ENAL #### [address] Potassium [Moles/volume] in Serum or PlasmaOrdered By: Magy Cummings on 02-14-2024 Potassium [Moles/Vol] 3.9 mmol/L Normal 3.5-5.1 [facility] Comment on above: Performed By: #### R ENAL #### [facility] [address] [place] [address] Renal Function Panelon 02-13 Albumin [Mass/Vol] 3.6 g/dL Normal 3.5-5.7 [facility] Comment on above: Result Comment: PERF ORMED BY: [place] [address] PATHOLOGIST LEADERSHIP DEVELOPMENT INSTRUCTOR SALINA BLOCK M.D. Performed By: #### R ENAL #### [facility] [address] [place] [address] GFR/1.73 sq M.predicted MDRD (S/P/Bld) [Vol rate/Area] 40.578 mL/min/{1.73_m2} Normal [facility] Comment on above: Performed By: #### R ENAL #### [address] Serum or plasma anion gap de terminationOrdered By: Magy Emiliano on 02-14-2024 Anion gap [Moles/Vol] 12.2 mmol/L Normal 6.0-15.0 [facility] Comment on above: Performed By: #### R ENAL #### [place] [address] [place] Sodium [Moles/volume] in Ser um or PlasmaOrdered By: Magy Emiliano on 02-14-2024 Sodium [Moles/Vol] 141 mmol/L Normal 136-145 [facility] Comment on above: Performed By: #### R ENAL #### [address] Urea nitrogen [Mass/volume] in Serum or PlasmaOrdered By: Magy Emiliano on 02-14-2024 Urea nitrogen [Mass/Vol] 16 mg/dL Normal 7-25 [facility] Comment on above: Performed By: #### R ENAL #### [place] [address] [place] Albumin [Mass/volume] in Ser um or PlasmaOrdered By: Magy Emiliano on 01-26-2024 Albumin [Mass/Vol] 3.5 g/dL Normal 2.9-4.4 [facility] Comment on above: Performed By: #### R ENAL #### [facility] [address] [place] [address] [place] Albumin [Mass/volume] in Ser um or Plasma by Bromocresol green (BCG) dye binding methoOrdered By: Magy Emiliano on 01-26-2024 Albumin BCG dye [Mass/Vol] 3.6 g/dL 3.5-5.7 [facility] Calcium [Mass/volume] in Ser um or PlasmaOrdered By: Magy Emiliano on 01-26-2024 Calcium [Mass/Vol] 9.5 mg/dL Normal 8.6-10.3 [facility] Comment on above: Performed By: #### R ENAL #### [address] Carbon dioxide, total [Moles /volume] in Serum or PlasmaOrdered By: Magy Emiliano on 01-26-2024 CO2 [Moles/Vol] 31.8 mmol/L High 21.0-31.0 [facility] Comment on above: Performed By: #### R ENAL #### [place] [address] [place] Chloride [Moles/volume] in S zoey or PlasmaOrdered By: Magy Emiliano on 01-26-2024 Chloride [Moles/Vol] 100 mmol/L Normal 98-107 [facility] Comment on above: Performed By: #### R ENAL #### [address] Creatinine [Mass/volume] in Serum or PlasmaOrdered By: Magy Emiliano on 01-26-2024 Creatinine [Mass/Vol] 1.79 mg/dL High 0.70-1.30 [facility] Comment on above: Performed By: #### R ENAL #### [place] [address] [place] Free K+L LT Chains, Qn, Son 01-26-2024 Free [place] Light Chains, S 65.2 mg/L High 3.3-19.4 [facility] Comment on above: Performed By: #### R ENAL #### [facility] [address] [place] [address] [place] Free L[place] Light Chains, S 37.0 mg/L High 5.7-26.3 [facility] Comment on above: Performed By: #### R ENAL #### [facility] [address] [place] [address] [place]/Lambda Ratio, S 1.76 High 0.26-1.65 [facility] Comment on above: Result Comment: Perf ormed at: CB - [facility] [address] [place], [place] [id number] Printing Roller Polisher: Contreras Pollard PhD, Phone: [phone] PERFORMED BY: [place] [address] PATHOLOGIST LEADERSHIP DEVELOPMENT INSTRUCTOR SALINA BLOCK M.D. Performed By: #### R ENAL #### [facility] [address] [place] [address] Glucose [Mass/volume] in Ser um or PlasmaOrdered By: Magy Emiliano on 01-26-2024 Glucose [Mass/Vol] 97 mg/dL Normal 70-100 [facility] Comment on above: ADA recommended refe rence rangeRandom Glucose Reference Range is dependent on time and content of last meal. Glucose of more than 200 mg/dL in a nonstressed, ambulatory subject supports the diagnosis of Diabetes Mellitus. Result Comment: [place] om Glucose Reference Range is dependent on time and content of last meal. Glucose of more than 200 mg/dL in a nonstressed, ambulatory subject supports the diagnosis of Diabetes Mellitus. ADA recommended reference range Performed By: #### R ENAL #### [facility] [address] [place] [address] [place] IgA [Mass/volume] in Serum o r PlasmaOrdered By: Magy Emiliano on 01-26-2024 IgA [Mass/Vol] 146 mg/dL 61-437 [facility] IgG [Mass/volume] in Serum o r PlasmaOrdered By: Magy Emiliano on 01-26-2024 IgG [Mass/Vol] 1171 mg/dL 603-1613 [facility] IgM [Mass/volume] in Serum o r PlasmaOrdered By: Magy Emiliano on 01-26-2024 IgM [Mass/Vol] 190 mg/dL 15-143 [facility] Comment on above: Performed at: CB - [facility] [id number] [place], [place] [id number] Director: Contreras Pollard PhD, Phone: [phone] Immunofixation for UrineOrde red By: Magy Cummings on 01-26-2024 Interpretation Immunofixation (U) [Interp] See comment . [facility] Comment on above: No monoclonality det ected.Performed at: [facility] [address] [id number] Director: Contreras Pollard PhD, Phone: [phone] Immunofixation, (GARCIA), Urine on 01-26-2024 Immunofixation, (GARCIA), Urine Normal . [facility] Comment on above: Result Comment: No m onoclonality detected. Performed at: [address] [id number] Printing Roller Polisher: Contreras Pollard PhD, Phone: [phone] PERFORMED BY: [place] [address] PATHOLOGIST LEADERSHIP DEVELOPMENT INSTRUCTOR SALINA BLOCK M.D. Performed By: #### P ROCRERAT #### [address] Immunofixation,Serumon 01-25 Immunofixation, Serum Comment: Normal . [facility] Comment on above: Result Comment: Pres ence of monoclonal protein is unclear at this time. Suggest repeat in 3 to 6 months if clinically indicated. Performed By: #### R ENAL #### [place] [address] [place] Immunoglobulin A, Serum 146 mg/dL Normal 61-437 [facility] Comment on above: Performed By: #### R ENAL #### [place] [address] [place] Immunoglobulin G 1171 mg/dL Normal 603-1613 [facility] Comment on above: Performed By: #### R ENAL #### [place] [address] [place] Immunoglobulin M, Serum 190 mg/dL High 15-143 [facility] Comment on above: Result Comment: Perf ormed at: [facility] [address] [id number] Printing Roller Polisher: Contreras Pollard PhD, Phone: [phone] Performed By: #### R ENAL #### [facility] [address] Immunoglobulin light chains. kappa.free [Mass/volume] in SerumOrdered By: Magy Cummings on 01-26-2024 Immunoglobulin light chains.kappa.free (S) [Mass/Vol] 65.2 mg/L 3.3-19.4 [facility] Immunoglobulin light chains. kappa.free/Immunoglobulin light chains.lambda.free [MassOrdered By: Magy Cummings on 01-26-2024 Immunoglobulin light chains.kappa.free/Immun oglobulin light chains.lambda.free (S) [Mass ratio] 1.76 0.26-1.65 [facility] Comment on above: Performed at: [facility] [employer] [facility] [address] [id number] Director: Contreras Pollard PhD, Phone: [phone] Immunoglobulin light chains. lambda.free [Mass/volume] in Serum or PlasmaOrdered By: Magy Cummings on 01-26-2024 Immunoglobulin light chains.lambda.free [Mass/Vol] 37.0 mg/L 5.7-26.3 [facility] No Panel InformationOrdered By: Magy Cummings on 01-26-2024 Estimated GFR (CKD-EPI) 39.763 mL/Min [facility] Creatinine Clearance (Chem N/A [facility] Protein Electrophoresis Interpret See comment . [facility] Comment on above: The SPE pattern appe ars unremarkable. Evidence ofmonoclonal protein is not apparent.Performed at: [facility] [address] [id number] Director: Contreras Pollard PhD, Phone: [phone] Protein Electrophoresis M-Sabino Not observed g/dL Not Observed [facility] Protein Electrophoresis Note See comment . [facility] Comment on above: Protein electrophore sis scan will follow via computer,mail, or fan installer delivery. Serum Immunofixation Comment: . [facility] Comment on above: Presence of monoclon al protein is unclear at this time. Suggestrepeat in 3 to 6 months if clinically indicated. Phosphate [Mass/volume] in S zoey or PlasmaOrdered By: Magy Cummings on 01-26-2024 Phosphate [Mass/Vol] 2.9 mg/dL Normal 2.5-4.5 [facility] Comment on above: Performed By: #### R ENAL #### [address] Potassium [Moles/volume] in Serum or PlasmaOrdered By: Magy Cummings on 01-26-2024 Potassium [Moles/Vol] 3.1 mmol/L Low 3.5-5.1 [facility] Comment on above: Performed By: #### R ENAL #### [address] Prot Electrophoresis w/Inter yolanda 01-26-2024 Crqak-4-Ybvkjlwn 0.3 g/dL Normal 0.0-0.4 [facility] Comment on above: Performed By: #### R ENAL #### [address] Tqqxd-5-Zmnkpktb 0.7 g/dL Normal 0.4-1.0 [facility] Comment on above: Performed By: #### R ENAL #### [address] Beta Globulin 0.8 g/dL Normal 0.7-1.3 [facility] Comment on above: Performed By: #### R ENAL #### [address] Gamma Globulin 1.1 g/dL Normal 0.4-1.8 [facility] Comment on above: Performed By: #### R ENAL #### [address] M-Sabino Not Observed Normal Not Observed [facility] Comment on above: Performed By: #### R ENAL #### [address] SPE-Interpretation Normal . [facility] Comment on above: Result Comment: The SPE pattern appears unremarkable. Evidence of monoclonal protein is not apparent. Performed at: - [facility] [address] [id number] Printing Roller Polisher: Contreras Pollard PhD, Phone: [phone] Performed By: #### R ENAL #### [address] SPE-Note Normal . [facility] Comment on above: Result Comment: Prot ein electrophoresis scan will follow via computer, mail, or fan installer delivery. Performed By: #### R ENAL #### [address] Protein [Mass/volume] in Ser um or PlasmaOrdered By: Magy Cummings on 01-26-2024 Protein [Mass/Vol] 6.4 g/dL Normal 6.0-8.5 [facility] Comment on above: Performed By: #### R ENAL #### [address] Renal Function Panelon 01-25 Albumin [Mass/Vol] 3.6 g/dL Normal 3.5-5.7 [facility] Comment on above: Result Comment: PERF ORMED BY: [place] [address] PATHOLOGIST LEADER[employer]IP DEVELOPMENT INSTRUCTOR SALINA BLOCK M.D. Performed By: #### R ENAL #### [address] GFR/1.73 sq M.predicted MDRD (S/P/Bld) [Vol rate/Area] 39.763 mL/min/{1.73_m2} Normal [facility] Comment on above: Performed By: #### R ENAL #### [address] Serum globulin measurement ( mass/volume)Ordered By: Magy Cummings on 01-26-2024 Globulin (S) [Mass/Vol] 2.9 g/dL Normal 2.2-3.9 [facility] Comment on above: Performed By: #### R ENAL #### [address] Serum or plasma albumin/glob ulin mass ratioOrdered By: Magy Emiliano on 01-26-2024 Albumin/Globulin [Mass ratio] 1.2 {ratio} Normal 0.7-1.7 [facility] Comment on above: Performed By: #### R ENAL #### [facility] [address] [place] [address] Serum or plasma alpha 1 glob ulin measurement by electrophoresis (mass/volume)Ordered By: Magy Emiliano on 01-26-2024 Alpha 1 globulin Elph [Mass/Vol] 0.3 g/dL 0.0-0.4 [facility] Serum or plasma alpha 2 glob ulin measurement by electrophoresis (mass/volume)Ordered By: Magy Emiliano on 01-26-2024 Alpha 2 globulin Elph [Mass/Vol] 0.7 g/dL 0.4-1.0 [facility] Serum or plasma anion gap de terminationOrdered By: Magy Emiliano on 01-26-2024 Anion gap [Moles/Vol] 9.3 mmol/L Normal 6.0-15.0 [facility] Comment on above: Performed By: #### R ENAL #### [address] Serum or plasma beta globuli n measurement by electrophoresis (mass/volume)Ordered By: Magy Emiliano on 01-26-2024 Beta globulin Elph [Mass/Vol] 0.8 g/dL 0.7-1.3 [facility] Serum or plasma gamma globul in measurement by electrophoresis (mass/volume)Ordered By: Magy Emiliano on 01-26-2024 Gamma globulin Elph [Mass/Vol] 1.1 g/dL 0.4-1.8 [facility] Sodium [Moles/volume] in Ser um or PlasmaOrdered By: Magy Emiliano on 01-26-2024 Sodium [Moles/Vol] 138 mmol/L Normal 136-145 [facility] Comment on above: Performed By: #### R ENAL #### [facility] [address] [place] [address] Urea nitrogen [Mass/volume] in Serum or PlasmaOrdered By: Magy Cummings on 01-26-2024 Urea nitrogen [Mass/Vol] 15 mg/dL Normal 7-25 [facility] Comment on above: Performed By: #### R ENAL #### [facility] [address] [place] [id number] [facility] Laboratory - Chemistry and C hemistry - challengeon 01-17-2024 Bilirubin Ql (U) Negative [facility] Ketones Ql (U) Negative [facility] pH (U) 7.0 [pH] [facility] Specific gravity (U) [Rel density] 1.016 [facility] Laboratory - Specimen inform ationon 01-17-2024 Color (U) yellow [facility] Laboratory - Urinalysison Leukocyte esterase Test strip Ql (U) Negative [facility] Nitrite Ql (U) Negative [facility] Protein Ql (U) 3+ [facility] No Panel Informationon 01-16 Urine Glucose (UA) trace [facility] Office Visit (Cardiology)on 06-01-2022 Follow-up visit Diagnoses/Problems Assessed Peripheral vascular disease (443.9) (I73.9) Hyperlipemia (272.4) (E78.5) Essential hypertension, benign (401.1) (I10) Overweight with body mass index (BMI) of 29 to 29.9 in adult (278.02,V85.25) (E66.3,Z68.29) Orders Essential hypertension, benign IO EKG Electrocardiogram- 12 Lead; Status:Complete; Done: [id number] Hyperlipemia Renew: Atorvastatin Calcium 10 MG Oral Tablet; take 1 tablet by mouth once daily Overweight with body mass index (BMI) of 29 to 29.9 in adult Healthy Weight Tips; Status:Complete; Done: [id number] Some eating tips that can help you lose weight.; Status:Complete; Done: [id number] Patient Instructions Please bring all medicines, vitamins, and herbal supplements with you when you come to the office. Prescriptions will not be filled unless you are compliant with your follow up appointments or have a follow up appointment scheduled as per instruction of your physician. Refills should be requested at the time of your visit. records requested from [facility] [id number], [address], [place] [facility] from [facility] requested. Follow up in 4 months Chief Complaint CHAR ALATORRE is being seen for a consultation for [place]- Vasculopath. History of Present Illness Patient is [...] place. He believes he might be in [place] or at [facility] also in [facility]. Because of this we will attempt to [...] FOR 90 DAYS Vitamin D 50 MCG (1999 [place]) Oral CapsuleTAKE 1 CAPSULE Daily Xarelto 2.5 MG Oral TabletTAKE 1 TABLET Twice daily Allergies Medication No Known Drug Allergies Recorded By: Clau Phoenix; 06/01/2022 2:41:55 PM Social History Problems Daily caffeine consumption 3 cups of coffee daily Former smoker (V15.82) (Z87.891) Quit in 2015 No illicit drug use Rarely consumes alcohol [...] negative for complaint. Vitals Vital Signs Recorded: [id number] 02:39PM Heart Rate83, Apical Naordzrk916, RUE, Sitting Piwpnftpa18, RUE, Sitting Height6 ft Liihsr493 lb BMI Sjczjwwzea27.97 kg/m2 BSA Calculated2.22 Tobacco Useb) No PHQ-2 [...] Eyes: no (more content not included)... Normal [employer] Tobacco Screening.on 022 Adult depression screening assessment No [facility] [address] DO Work Phone: Fall risk assessment a) No falls within the last year [facility] [employer] [place] [address] DO Work Phone: Tobacco use status CP b) [facility] [employer] [address] [place] Work Phone: XR Spine Lumbar [...] by Lakhwinder Chappell on 03/29/[address] [facility] PARATHYROID HORMONE- RELATED PEPTIDEon 10-05-2021 PTHrP (PTH-Related Peptide) <2.0 Normal [facility] Comment on above: Result Comment: This test was developed and its performance characteristics determined by [employer]. It has not been cleared or approved [...] laboratory. Performed By: #### P THP #### [facility] Laboratory [address] [place] [address] Dr. Chhaya De La Vega RESPIRATORY PANEL PLUSon Adenovirus Not detected Normal NOT DETECTED [facility] Comment on above: Performed By: #### R SPLUS #### [facility] [address] [place] [address] Dr. Chhaya Izaguirre. Parapertusis Not detected Normal NOT DETECTED [facility] Comment on above: Performed By: #### R SPLUS #### [facility] [address] [place] [address] Dr. Chhaya Izaguirre. Pertussis Not detected Normal NOT DETECTED [facility] Comment on above: Performed By: #### R SPLUS #### [facility] [address] [place] [address] Dr. Chhaya De La Vega Chlamydia Pneumoniae Not detected Normal NOT DETECTED [facility] Comment on above: Performed By: #### R SPLUS #### [facility] [address] [place] [address] Dr. Chhaya De La Vega Coronavirus 229E Not detected Normal NOT DETECTED [facility] Comment on above: Performed By: #### R SPLUS #### [facility] [address] [place] [address] Dr. Chhaya De La Vega Coronavirus HKU1 Not detected Normal NOT DETECTED [facility] Comment on above: Performed By: #### R SPLUS #### [facility] [address] [address] [address] Chhaya De La Vega Coronavirus NL63 Not detected Normal NOT DETECTED [facility] Comment on above: Performed By: #### R SPLUS #### [facility] [address] [address] [address] Chhaay De La Vega Coronavirus OC43 Not detected Normal NOT DETECTED [facility] Comment on above: Performed By: #### R SPLUS #### [facility] [address] [place] [address] Dr. Chhaya De La Vega Influenza A H1 2009 Not detected Normal NOT DETECTED [facility] Comment on above: Performed By: #### R SPLUS #### [facility] [address] [address] [address] Chhaya De La Vega Influenza A H3 Not detected Normal NOT DETECTED [facility] Comment on above: Performed By: #### R SPLUS #### [facility] [address] [place] [address] Dr. Chhaya De La Vega Influenza B Not detected Normal NOT DETECTED [facility] Comment on above: Performed By: #### R SPLUS #### [facility] [address] [place] [address] Dr. Chhaya De La Vega Metapneumovirus Not detected Normal NOT DETECTED [facility] Comment on above: Performed By: #### R SPLUS #### [facility] [address] [place] [address] Dr. Chhaya De La Vega Mycoplas. Pneumoniae Not detected Normal NOT DETECTED [facility] Comment on above: Performed By: #### R SPLUS #### [facility] [address] [place] [address] Dr. Chhaya De La Vega Parainfluenza 1 Not detected Normal NOT DETECTED [facility] Comment on above: Performed By: #### R SPLUS #### [facility] [address] [place] [address] Dr. Chhaya De La Vega Parainfluenza 2 Not detected Normal NOT DETECTED [facility] Comment on above: Performed By: #### R SPLUS #### [facility] [address] [place] [address] Dr. Chhaya De La Vega Parainfluenza 3 Not detected Normal NOT DETECTED [facility] Comment on above: Performed By: #### R SPLUS #### [facility] [address] [place] [address] Dr. Chhaya De La Vega Parainfluenza 4 Not detected Normal NOT DETECTED [facility] Comment on above: Performed By: #### R SPLUS #### [facility] [address] [place] [address] Dr. Chhaya De La Vega Rhino/Enterovirus Detected Abnormal NOT DETECTED [facility] Comment on above: Performed By: #### R SPLUS #### [facility] [address] [place] [address] Dr. Chhaya De La Vega RP2 Header 1 RESPIRATORY PANEL: VIRUSES Normal [facility] Comment on above: Performed By: #### R SPLUS #### [facility] [address] [place] [address] Dr. Chhaya De La Vega RP2 Header 2 RESPIRATORY PANEL: BACTERIA Normal [facility] Comment on above: Performed By: #### R SPLUS #### [facility] [address] [place] [address] Dr. Chhaya De La Vega RSV Not detected Normal NOT DETECTED [facility] Comment on above: Performed By: #### R SPLUS #### [facility] [address] [place] [address] Dr. Chhaya De La Vega SARS-CoV-2 (COVID-19) RNA MICHELLE+probe Ql (Unsp spec) Not detected Normal NOT DETECTED [facility] Comment on above: Performed By: #### R SPLUS #### [facility] [address] [place] [address] Dr. Chhaya De La Vega CALCIUM 24 HR URINEon 2020 CALC, 24 HR UR 318.0 mg/24 hr Critically high 100.0-300.0 [facility] Comment on above: Performed By: #### C [id number] #### [facility] [address] [address] [address] Chhaya De La Vega UR CALCIUM 26.5 mg/dL Critically high 0.0-21.0 [facility] Comment on above: Performed By: #### C [id number] #### [facility] [address] [place] [address] Dr. Chhaya De La Vega UR TOT VOL 1200 ml/24 HR Normal [facility] Comment on above: Performed By: #### C [id number] #### [facility] [address] [place] [address] Dr. Chhaya De La Vega Performed By: #### C [id number] #### [facility] [address] [place] [address] Dr. Chhaya De La Vega CREA 24 HR URINEon CREA, 24 HR UR 1421.52 mg/24 hr Normal 1,000.00- 2,0 00.00 [facility] Comment on above: Performed By: #### C [id number] #### [facility] [address] [place] [address] Dr. Chhaya De La Vega URINE CREAT 118.46 mg/dL Normal 20.00-300.00 [facility] Comment on above: Performed By: #### C [id number] #### [facility] [address] [place] [address] Dr. Chhaya De La Vega PARATHYROID HORMONE PLUS Dash n 09-29-2021 Calcium [Mass/Vol] 9.8 mg/dL Normal 8.6-10.2 [facility] Comment on above: Performed By: #### P THCA #### [facility] [address] [place] [address] Dr. Chhaya De La Vega Intact PTH Comment Normal [facility] Comment on above: Result Comment: Inte rpretation Intact PTH Calcium (pg/mL) (mg/dL) Normal 15 - 65 8.6 - 10.2 Primary Hyperparathyroidism >65 >10.2 Secondary Hyperparathyroidism >65 <10.2 Non-Parathyroid Hypercalcemia <65 >10.2 Hypoparathyroidism <15 < 8.6 Non-Parathyroid Hypocalcemia 15 - 65 < 8.6 . Performed By: #### P THCA #### [facility] [address] [place] [address] Dr. Chhaya De La Vega PTH, Intact 66 pg/mL Critically high 15-65 [facility] [place] [facility] Comment on above: Performed By: #### P THCA #### [facility] [address] [place] [address] Dr. Chhaya De La Vega PROTEIN ELECTROPHERESISon Albumin [Mass/Vol] 3.5 g/dL Normal 2.9-4.4 [facility] Comment on above: Performed By: #### P RTELEC #### [facility] [address] [place] [address] Dr. Chhaya De La Vega Albumin/Globulin [Mass ratio] 0.9 {ratio} Normal 0.7-1.7 [facility] Comment on above: Performed By: #### P RTELEC #### [facility] [address] [place] [address] Dr. Chhaya De La Vega Yqyzz-3-Fwhqbcwi 0.3 g/dL Normal 0.0-0.4 [facility] [place] [facility] Comment on above: Performed By: #### P RTELEC #### [facility] [address] [place] [address] Dr. Chhaya De La Vega Sreol-2-Tfkkfhxz 0.9 g/dL Normal 0.4-1.0 [facility] Comment on above: Performed By: #### P RTELEC #### [facility] [address] [place] [address] Dr. Chhaya De La Vega Beta Globulin 0.9 g/dL Normal 0.7-1.3 [facility] Comment on above: Performed By: #### P RTELEC #### [facility] [address] [place] [address] Dr. Chhaya De La Vega Gamma Globulin 1.7 g/dL Normal 0.4-1.8 [facility] Comment on above: Performed By: #### P RTELEC #### [facility] [address] [place] [address] Dr. Chhaya De La Vega Globulin (S) [Mass/Vol] 3.9 g/dL Normal 2.2-3.9 [facility] Comment on above: Performed By: #### P RTELEC #### [facility] [address] [place] [address] Dr. Chhaya De La Vega M-Sabino Comment: Normal Not Observed [facility] Comment on above: Result Comment: SPE shows asymmetrical gamma. Performed By: #### P RTELEC #### [facility] [address] [place] [address] Dr. Chhaya De La Vega PDF . Normal [facility] Comment on above: Performed By: #### P RTELEC #### [facility] [address] [place] [address] Dr. Chhaya De La Vega Please note: Comment Normal [facility] Comment on above: Result Comment: Prot ein electrophoresis scan will follow via computer, mail, or fan installer delivery. Performed By: #### P RTELEC #### [facility] [address] [place] [address] Dr. Chhaya De La Vega Protein [Mass/Vol] 7.4 g/dL Normal 6.0-8.5 [facility] Comment on above: Performed By: #### P RTELEC #### [facility] [address] [place] [address] Dr. Chhaya De La Vega RENAL FUNCTION PANELon 09-27 Albumin [Mass/Vol] 3.5 g/dL Normal 3.5-5.0 [facility] Comment on above: Performed By: #### R ENAL #### [facility] [address] [place] [address] Dr. Chhaya De La Vega Calcium [Mass/Vol] 9.6 mg/dL Normal 8.4-10.2 [facility] Comment on above: Performed By: #### R ENAL #### [facility] [address] [place] [address] Dr. Chhaya De La Vega Chloride [Moles/Vol] 99 mmol/L Normal 98-107 [facility] Comment on above: Performed By: #### R ENAL #### [facility] [address] [address] [address] Chhaya De La Vega CO2 [Moles/Vol] 28.6 mmol/L Normal 22.0-30.0 [facility] [place] [facility] Comment on above: Performed By: #### R ENAL #### [facility] [address] [address] [address] Chhaya De La Vega Creatinine [Mass/Vol] 1.51 mg/dL Critically high 0.66-1.25 [facility] Comment on above: Performed By: #### R ENAL #### [facility] [address] [address] [address] Chhaya De La Vega EGFR-AF ISRAELI 56 mL/min/1.73m2 Critically low >=60 [facility] Comment on above: Performed By: #### R ENAL #### [facility] [address] [place] [address] Dr. Chhaya De La Vega EGFR-NON AF ISRAELI 46 mL/min/1.73m2 Critically low >=60 [facility] Comment on above: Performed By: #### R ENAL #### [facility] [address] [place] [address] Dr. Chhaya De La Vega Glucose [Mass/Vol] 101 mg/dL Normal 74-106 [facility] Comment on above: Performed By: #### R ENAL #### [facility] [address] [place] [address] Dr. Chhaya De La Vega Phosphate [Mass/Vol] 2.9 mg/dL Normal 2.5-4.5 [facility] Comment on above: Performed By: #### R ENAL #### [facility] [address] [place] [address] Dr. Chhaya De La Vega Potassium [Moles/Vol] 4.1 mmol/L Normal 3.4-5.0 [facility] Comment on above: Performed By: #### R ENAL #### [facility] [address] [place] [address] Dr. Chhaya De La Vega Sodium [Moles/Vol] 136 mmol/L Critically low 137-145 [facility] Comment on above: Performed By: #### R ENAL #### [facility] [address] [place] [address] Dr. Chhaya De La Vega Urea nitrogen [Mass/Vol] 13.0 mg/dL Normal 9.0-20.0 [facility] Comment on above: Performed By: #### R ENAL #### [facility] [address] [place] [address] Dr. Chhaya De La Vega VITAMIN D 25 OHon 09-27-2021 VIT D 25-OH 24.5 ng/mL Normal [facility] Comment on above: Performed By: #### C [id number] #### [facility] [address] [place] [address] Dr. Chhaya De La Vega VIT D RANGES SEE BELOW Normal [facility] Comment on above: Result Comment: <20 ng/mL Vit D deficient 20 - <30 ng/mL Vit D insufficient 30 - 100 ng/mL Vit D sufficient >100 ng/mL Potential Toxicity Performed By: #### C [id number] #### [facility] [address] [place] [address] Dr. Chhaya De La Vega XR DEXA [...] by: ARTI MALCOLM Date: 2021-09-27 11:20 Normal [facility] CBC AUTO DIFFon 02-02-2021 BASO # 0.1 103/ul Normal 0.0-0.1 [facility] Comment on above: Performed By: #### C BC #### [facility] [address] [place] [address] Niharika Leung Basophils/100 WBC (Bld) 0.5 % Normal 0.2-2.0 [facility] Comment on above: Performed By: #### C BC #### [facility] [address] [place] [address] Niharika Xochitl EO # 0.0 103/ul Normal 0.0-0.7 [facility] Comment on above: Performed By: #### C BC #### [facility] [address] [place], [place] [id number] Niharika Xochitl Eosinophils/100 WBC (Bld) 0.2 % Critically low 0.9-7.0 [facility] Comment on above: Performed By: #### C BC #### [facility] [address] [place] [address] Niharika Xochitl Erythrocyte distribution width (RBC) [Ratio] 13.9 % Normal 11.0-15.0 [facility] Comment on above: Performed By: #### C BC #### [facility] [address] [place] [address] Niharika Xochitl Hematocrit (Bld) [Volume fraction] 49.0 % Normal 42.0-54.0 [facility] Comment on above: Performed By: #### C BC #### [facility] [address] [place] [address] Niharika Xochitl Hemoglobin (Bld) [Mass/Vol] 16.1 g/dL Normal 14.0-18.0 [facility] Comment on above: Performed By: #### C BC #### [facility] [address] [place] [address] Niharika Xochitl IG # 0.09 10e3/ul Critically high 0.00-0.03 [facility] Comment on above: Performed By: #### C BC #### [facility] [address] [place] [address] Niharika Xochitl IG % 0.5 % Normal 0.0-0.5 [facility] Comment on above: Performed By: #### C BC #### [facility] [address] [place] [address] Niharika Xochitl LYMPH # 1.5 103/ul Normal 1.2-3.8 [facility] Comment on above: Performed By: #### C BC #### [facility] [address] [place], [place] [address] Niharika Xochitl Lymphocytes/100 WBC (Bld) 8.6 % Critically low 20.5-60.0 [facility] Comment on above: Performed By: #### C BC #### [facility] [address] [place], [place] [id number] Niharika Xochitl MANUAL DIFF REQ NO Normal [facility] Comment on above: Performed By: #### C BC #### [facility] [address] [place], [place] [phone] Niharika Xochitl MCH (RBC) [Entitic mass] 27.6 pg Normal 25.9-34.0 [facility] Comment on above: Performed By: #### C BC #### [facility] [address] [place] [address] Niharika Xochitl MCHC (RBC) [Mass/Vol] 32.9 g/dL Normal 29.9-35.2 [facility] Comment on above: Performed By: #### C BC #### [facility] [address] [place], [place] [phone] Niharika Xochitl MCV (RBC) [Entitic vol] 84.0 fL Normal 80.0-94.0 [facility] Comment on above: Performed By: #### C BC #### [facility] [address] [place], [place] [phone] Niharika Xochitl MONO # 1.0 103/ul Critically high 0.3-0.8 [facility] Comment on above: Performed By: #### C BC #### [facility] [address] [place], [place] [phone] Niharika Xochitl Monocytes/100 WBC (Bld) 6.1 % Normal 1.7-12.0 [facility] Comment on above: Performed By: #### C BC #### [facility] [address] [place], [place] [phone] Niharika Xochitl NEUT # 14.1 103/ul Critically high 1.4-6.5 [facility] [place] [facility] Comment on above: Performed By: #### C BC #### [facility] [address] [place], [place] [address] Niharika Leung Neutrophils/100 WBC (Bld) 84.1 % Critically high 43.0-75.0 [facility] Comment on above: Performed By: #### C BC #### [facility] [address] [place], [place] [address] Niharika Leung Platelet mean volume (Bld) [Entitic vol] 9.0 fL Critically low 9.5-13.5 [facility] Comment on above: Performed By: #### C BC #### [facility] [address] [place] [address] Niharika Willetten PLT 330 103/ul Normal 150-450 [facility] Comment on above: Performed By: #### C BC #### [facility] [address] [place] [address] Niharika Willetten RBC 5.83 106/ul Normal 4.70-6.10 [facility] Comment on above: Performed By: #### C BC #### [facility] [address] [place] [address] Niharika Leung WBC 16.8 103/ul Critically high 4.0-11.0 [facility] Comment on above: Performed By: #### C BC #### [facility] [address] [place] [address] ABD/PELVIS WO CONon 02-02 [...] of iterative reconstruction technique. Electronically authenticated by: HERBIE CASTELLANOS Date: 2021-02-02 02:05 Normal [facility] PROF 14(COMP METB)on 021 Albumin [Mass/Vol] 4.7 g/dL Normal 3.5-5.0 [facility] Comment on above: Performed By: #### C [id number] #### [facility] [address] [place] [address] Dr. Chhaya De La Vega Albumin/Globulin [Mass ratio] 0.9 {ratio} Normal [facility] Comment on above: Performed By: #### C [id number] #### [facility] [address] [place] [address] Dr. Chhaya De La Vega ALP [Catalytic activity/Vol] 163 U/L Critically high 38-126 [facility] Comment on above: Performed By: #### C [id number] #### [facility] [address] [place] [address] Dr. Chhaya De La Vega ALT [Catalytic activity/Vol] 22 U/L Normal 21-72 [facility] Comment on above: Performed By: #### C [id number] #### [facility] [address] [place] [address] Dr. Chhaya De La Vega Anion gap [Moles/Vol] 15.2 mmol/L Normal [facility] Comment on above: Performed By: #### C [id number] #### [facility] [address] [place] [address] Dr. Chhaya De La Vega AST [Catalytic activity/Vol] 18 U/L Normal 17-59 [facility] Comment on above: Performed By: #### C [id number] #### [facility] [address] [place] [address] Dr. Chhaya De La Vega Bilirubin [Mass/Vol] 0.7 mg/dL Normal 0.2-1.3 [facility] Comment on above: Performed By: #### C [id number] #### [facility] [address] [place] [address] Dr. Chhaya De La Vega Calcium [Mass/Vol] 11.2 mg/dL Critically high 8.4-10.2 [facility] Comment on above: Performed By: #### C [id number] #### [facility] [address] [place] [address] Dr. Chhaya De La Vega Chloride [Moles/Vol] 98 mmol/L Normal 98-107 [facility] Comment on above: Performed By: #### C [id number] #### [facility] [address] [place] [address] Dr. Chhaya De La Vega CO2 [Moles/Vol] 28.3 mmol/L Normal 22.0-30.0 [facility] [place] [facility] Comment on above: Performed By: #### C [id number] #### [facility] [address] [place] [address] Dr. Chhaya De La Vega Creatinine [Mass/Vol] 2.24 mg/dL Critically high 0.66-1.25 [facility] Comment on above: Performed By: #### C [id number] #### [facility] [address] [place] [address] Dr. Chhaya De La Vega EGFR-AF ISRAELI 35 mL/min/1.73m2 Critically low >=60 [facility] Comment on above: Performed By: #### C [id number] #### [facility] [address] [place] [address] Dr. Chhaya De La Vega EGFR-NON AF ISRAELI 29 mL/min/1.73m2 Critically low >=60 [facility] Comment on above: Performed By: #### C [id number] #### [facility] [address] [place] [address] Dr. Chhaya D eLa Vega Globulin (S) [Mass/Vol] 5.2 g/dL Normal [facility] Comment on above: Performed By: #### C [id number] #### [facility] [address] [place] [address] Dr. Chhaya De La Vega Glucose [Mass/Vol] 161 mg/dL Critically high 74-106 [facility] Comment on above: Performed By: #### C [id number] #### [facility] [address] [place] [address] Dr. Chhaya De La Vega Potassium [Moles/Vol] 4.5 mmol/L Normal 3.4-5.0 [facility] Comment on above: Performed By: #### C [id number] #### [facility] [address] [place] [address] Dr. Chhaya De La Vega Protein [Mass/Vol] 9.9 g/dL Critically high 6.1-8.2 [facility] Comment on above: Performed By: #### C [id number] #### [facility] [address] [place] [address] Dr. Chhaya De La Vega Sodium [Moles/Vol] 137 mmol/L Normal 137-145 [facility] Comment on above: Performed By: #### C [id number] #### [facility] [address] [place] [address] Dr. Chhaya De La Vega Urea nitrogen [Mass/Vol] 22.0 mg/dL Critically high 9.0-20.0 [facility] Comment on above: Performed By: #### C [id number] #### [facility] [address] [place] [address] Dr. Chhaya De La Vega Urea nitrogen/Creatinine [Mass ratio] 9.8 mg/mg Normal [facility] Comment on above: Performed By: #### C [id number] #### [facility] [address] [place] [address] Dr. Chhaya De La Vega PROTIMEon 02-02-2021 INR Coag (PPP) [Relative time] 1.03 {INR} Normal [facility] Comment on above: Performed By: #### C [id number] #### [facility] [address] [place] [address] Dr. Chhaya De La Vega INR GUIDELINES SEE BELOW Normal [facility] Comment on above: Result Comment: GIOVANNY RED INR: 2.0 - 3.0 CONDITIONS NOT LISTED BELOW 2.5 - 3.5 FOR PROSTHETIC HEART VALVE REPLACEMENT 2.5 - 3.5 RECURRENT THROMBOSIS Performed By: #### C [id number] #### [facility] [address] [place] [address] Dr. Chhaya De La Vega PT Coag (PPP) [Time] 11.2 s Normal 9.0-11.6 [facility] Comment on above: Performed By: #### C [id number] #### [facility] [address] [place] [address] Dr. Chhaya De La Vega PTTon 02-02-2021 aPTT Coag (Bld) [Time] 28.7 s Normal 22.3-36.2 [facility] Comment on above: Performed By: #### C [id number] #### [facility] [address] [place] [address] Dr. Chhaya De La Vega RESPIRATORY PANEL PLUSon Adenovirus Not detected Normal NOT DETECTED [facility] Comment on above: Performed By: #### R SPLUS #### [facility] [address] [place] [address] Niharika Xochitl B. Parapertusis Not detected Normal NOT DETECTED [facility] Comment on above: Performed By: #### R SPLUS #### [facility] [address] [place] [address] Niharika Xochitl B. Pertussis Not detected Normal NOT DETECTED [facility] Comment on above: Performed By: #### R SPLUS #### [facility] [address] [place] [address] Niharika Xochitl Chlamydia Pneumoniae Not detected Normal NOT DETECTED [facility] Comment on above: Performed By: #### R SPLUS #### [facility] [address] [place] [address] Niharika Xochitl Coronavirus 229E Not detected Normal NOT DETECTED [facility] Comment on above: Performed By: #### R SPLUS #### [facility] [address] [place] [address] Niharika Xochitl Coronavirus HKU1 Not detected Normal NOT DETECTED [facility] Comment on above: Performed By: #### R SPLUS #### [facility] [address] [place] [address] Niharika Xochitl Coronavirus NL63 Not detected Normal NOT DETECTED [facility] Comment on above: Performed By: #### R SPLUS #### [facility] [address] [place] [address] Niharika Xochitl Coronavirus OC43 Not detected Normal NOT DETECTED [facility] Comment on above: Performed By: #### R SPLUS #### [facility] [address] [place] [address] Niharika Xochitl Influenza A H1 2009 Not detected Normal NOT DETECTED [facility] Comment on above: Performed By: #### R SPLUS #### [facility] [address] [place] [address] Niharika Xochitl Influenza B Not detected Normal NOT DETECTED [facility] Comment on above: Performed By: #### R SPLUS #### [facility] [address] [place] [address] Niharika Xochitl Metapneumovirus Not detected Normal NOT DETECTED [facility] Comment on above: Performed By: #### R SPLUS #### [facility] [address] [place] [address] Niharika Xochitl Mycoplas. Pneumoniae Not detected Normal NOT DETECTED [facility] Comment on above: Performed By: #### R SPLUS #### [facility] [address] [place] [address] Niharika Xochitl Parainfluenza 1 Not detected Normal NOT DETECTED [facility] Comment on above: Performed By: #### R SPLUS #### [facility] [address] [place] [address] Niharika Xochitl Parainfluenza 2 Not detected Normal NOT DETECTED [facility] Comment on above: Performed By: #### R SPLUS #### [facility] [address] [place] [address] Niharika Xochitl Parainfluenza 3 Not detected Normal NOT DETECTED [facility] Comment on above: Performed By: #### R SPLUS #### [facility] [address] [place] [address] Niharika Xochitl Parainfluenza 4 Not detected Normal NOT DETECTED [facility] Comment on above: Performed By: #### R SPLUS #### [facility] [address] [place] [address] Niharika Xochitl Rhino/Enterovirus Not detected Normal NOT DETECTED [facility] Comment on above: Performed By: #### R SPLUS #### [facility] [address] [place] [address] Niharika Xochitl RP2 Header 1 RESPIRATORY PANEL: VIRUSES Normal [facility] Comment on above: Performed By: #### R SPLUS #### [facility] [address] [place] [address] Niharika Xochitl RP2 Header 2 RESPIRATORY PANEL: BACTERIA Normal [facility] Comment on above: Performed By: #### R SPLUS #### [facility] [address] [place] [address] Niharika Xochitl RP2 Header 4 EUA SEE BELOW Normal [facility] Comment on above: Result Comment: This test is not yet approved or cleared by the [place] FDA. When there are no FDA-approved or cleared tests available, and other criteria are met, FDA can make tests available under an emergency access mechanism called an Emergency Use Authorization (EUA). The EUA for this test is supported by the [employer] of Health and Human Service?s (HHS?s) declaration [...] used). Performed By: #### R SPLUS #### [facility] [address] [address] Niharika Leung RSV Not detected Normal NOT DETECTED [facility] Comment on above: Performed By: #### R SPLUS #### [facility] [address] [address] Niharika Leung SARS-CoV-2 (COVID-19) RNA MICHELLE+probe Ql (Unsp spec) Not detected Normal NOT DETECTED [facility] Comment on above: Performed By: #### R SPLUS #### [facility] [address] [address] Niharika Leung XR ABD FLAT UP_PA Jeremy 02-02 XR ABD FLAT UP_PA CH EXAM: [...] Follow-up as clinically indicated. Electronically authenticated by: HERBIE SAID Date: 2021-02-02 00:21 Normal [facility] Coding Summary.on 04-17-2020 Coding Summary. 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 warren History of Present Illness Patient presents with a painless vision loss onset this morning. Patient was seen at [facility] emergency room. The ER physician, Dr. [...] and made arrangements with the [facility] for the patient to be seen at 9:30 AM at their [place] office. I confirmed the patient's instructions with [...] AM on Monday with the [facility] at their [place] office. In 2 days 04/13/2020 EDT Additional [...] examination was conducted by the ER physician. [facility] Comment on above: Result Comment: Elec tronically [...] was seen in the Emergency Room at [facility], however there was no availability for on-call doctors. He also is a patient of Dr. Aurelio Condon, however they did not return any calls from the Emergency Room physician or the patient so the patient was transferred to [facility] for evaluation. PAST OCULAR HISTORY: Status post [...] get in touch with [facility] and they did not have somebody in the Operating Room on Monday so, therefore, this will be evaluated on Monday morning at 9:30 a[address] in their [place] office. Dr. Clemons will be seeing him. [...] given. Gianluca Warren D.O. gls Dictated: 04/11/2020 #[id number] Typed: 04/13/2020 #[id number] cc: MD Dick Barry M.D. Jonathan D. Zahler, D.O. Normal [facility] Comment on above: Result Comment: Elec tronically Signed By: Gianluca Warren DO\.br\Date and Time Signed: 04/13/20 16:36 EDT Discharge Instructionson Discharge Instructions [id number]. 00CD:127 Normal [facility] ED Clinical Summaryon 2019 ED Clinical Summary [address] [place] [id number] ED Clinical Summary Person Information Name: CHAR ALATORRE/[facility] Age: 69 Years : 1950 Sex: Male Language: Turkish PCP: JUAN MARTINEZ, JUSTIN Tiwari Marital Status: Visit Id: Visit Reason: Vision [...] 04/11/2020 23:00:43 04/11/2020 23:00:43 04/11/2020 23:00:43 ADDRESS: [address] [place] [phone] PHYS DOC NOTES: MEDICAL INFORMATION: Prescriptions Given: PATIENT EDUCATION INFORMATION: Instructions: Retinal Detachment, Care After Follow up: With: Address: When: You have an appointment at 9:30 AM on Monday with the [facility] at their [place] office. In 2 days 04/13/2020 DIAGNOSIS: Retinal detachment Normal [facility] ED Patient Education Noteon 04-12-2020 ED Patient [...] Keep appointments as directed. ? Only take cfth-kma-mxcoglw or prescription medicines for pain, discomfort, or [...] Document Reviewed: 08/28/2008 ExitCare? Patient Information ?2015 [employer]. This information is not intended to replace advice given to you by your health care provider. Make sure you discuss any questions you have with your health care provider. Normal [facility] ED Patient Summaryon 020 ED Patient Summary [address] [place] [id number] Patient Discharge Instructions Person Information Name: CHAR ALATORRE Age: 69 Years Arrival Date: 04/11/2020 20:42:11 Discharge Diagnosis: Retinal detachment Primary Care Physician: JUSTIN MARTINEZ MD Provider Information Primary Provider: Link Conrad MD Advanced Needle Leader:None The exam and treatment you received in the Emergency Department were for an urgent problem and are not intended as complete care. It is important that you follow up with a doctor, nurse practitioner, or physician?s business support assistant for ongoing care. If your symptoms become [...] with the [facility] at their [place] office. In 2 days 04/13/2020 In the event that this physician does not participate in your insurance network, please consult with your insurance company to find a nearby participating provider. Patient Education Materials: Retinal Detachment, Care After A MESSAGE TO ALL PATIENTS REGARDING OPIOIDS PRESCRIPTION OPIOIDS: WHAT YOU NEED TO KNOW Prescription opioids can be used to help relieve ihrbxfnf-ch-lypbvk pain and are often prescribed following a [...] be struggling with addiction, tell your health group care worker and ask for guidance or call [facility]S National Helpline at 7-165-516-GWES. p Source: [place] Department of Health and Human Services/Center for Disease Control & Prevention [facility] Medications Given: Medication Dose Route No medications found. Medication Information: Comment: Pharmacy Information: Thank you for choosing [facility] Patient Education Materials: Retinal Detachment, Care [...] Keep appointments as directed. ? Only take jdqj-dnc-sfnrcul or prescription medicines for pain, discomfort, or [...] Document Reviewed: 08/28/2008 ExitCare? Patient Information ?2015 [employer]. This information is not intended to replace [...] with the [facility] at their [place] office. In 2 days 04/13/2020 Patient Signature Date Clinician/Nurse Signature ___ Date 04/11/2020 23:00:[address] [facility] Progress Note-Nurseon 2019 Progress Note-Nurse pt verbalized understanding of discharge instructions et follow up appointment on Monday. [facility] Consent for Treatmenton 03-17 Consent for Treatment [id number] 0CD:[address] [facility] Vital Signs Date Time Vital Sign Value Performing Clinician Facility 10-28-2024 11:11-0500 Body height 182.88 cm Justin Martinez MD Work Phone: [facility] 10-28-2024 11:11-0500 Body mass index (BMI) [Ratio] 24.3 kg/m2 Justin Martinez MD Work Phone: [facility] 10-28-2024 11:11-0500 Body weight 81.19 kg Justin Martinez MD Work Phone: [facility] 10-28-2024 11:11-0500 Diastolic blood pressure 60 mm[Hg] Justin Martinez MD Work Phone: [facility] 10-28-2024 11:11-0500 Heart rate 89 /min Justin Martinez MD Work Phone: [facility] 10-28-2024 11:11-0500 Inhaled oxygen flow rate 2 L/min Justin Martinez MD Work Phone: [facility] 10-28-2024 11:11-0500 SaO2% (BldA) [Mass fraction] 100 % Justin Martinez MD Work Phone: [facility] 10-28-2024 11:11-0500 Systolic blood pressure 111 mm[Hg] Justin Martinez MD Work Phone: [facility] 10-21-2024 11:06-0500 Body height 180.3 cm Justin Martinez MD Work Phone: [facility] 10-21-2024 11:06-0500 Body mass index (BMI) [Ratio] 24.83 kg/m2 Justin Martinez MD Work Phone: [facility] 10-21-2024 11:06-0500 Body weight 80.74 kg Justin Martinez MD Work Phone: [facility] 10-21-2024 11:06-0500 Diastolic blood pressure 62 mm[Hg] Justin Martinez MD Work Phone: [facility] 10-21-2024 11:06-0500 Heart rate 78 /min Justin Martinez MD Work Phone: [facility] 10-21-2024 11:06-0500 SaO2% (BldA) [Mass fraction] 97 % Justin Martinez MD Work Phone: [facility] 10-21-2024 11:06-0500 Systolic blood pressure 88 mm[Hg] Justin Martinez MD Work Phone: [facility] 10-20-2024 11:51-0500 Diastolic blood pressure 70 mm[Hg] Justin Martinez MD Work Phone: [facility] 10-20-2024 11:51-0500 Heart rate 88 /min Justin Martinez MD Work Phone: [facility] 10-20-2024 11:51-0500 Respiratory rate 18 /min Justin Martinez MD Work Phone: [facility] 10-20-2024 11:51-0500 SaO2% (BldA) [Mass fraction] 93 % Justin Martinez MD Work Phone: [facility] 10-20-2024 11:51-0500 Systolic blood pressure 102 mm[Hg] Justin Martinez MD Work Phone: [facility] 10-20-2024 11:43-0500 Body height 182.88 cm Justin Martinez MD Work Phone: [facility] 10-20-2024 08:39-0500 Inhaled oxygen flow rate 2 L/min Justin Martinez MD Work Phone: [facility] 10-20-2024 08:29-0500 Body temperature 97.5 [degF] Justin Martinez MD Work Phone: [facility] 10-20-2024 05:47-0500 Body weight 77.5 kg Justin Martinez MD Work Phone: [facility] 10-19-2024 16:42-0500 Diastolic blood pressure 65 mm[Hg] Justin Martinez MD Work Phone: [facility] 10-19-2024 16:42-0500 Heart rate 78 /min Justin Martinez MD Work Phone: [facility] 10-19-2024 16:42-0500 Respiratory rate 18 /min Justin Martinez MD Work Phone: [facility] 10-19-2024 16:42-0500 SaO2% (BldA) [Mass fraction] 96 % Justin Martinez MD Work Phone: [facility] 10-19-2024 16:42-0500 Systolic blood pressure 133 mm[Hg] Justin Martinez MD Work Phone: [facility] 10-19-2024 15:14-0500 Inhaled oxygen flow rate 2 L/min Justin Martinez MD Work Phone: [facility] 10-19-2024 12:09-0500 Body height 182.88 cm Justin Martinez MD Work Phone: [facility] 10-19-2024 12:09-0500 Body weight 81.5 kg Justin Martinez MD Work Phone: [facility] 10-09-2024 14:35-0500 Diastolic blood pressure 63 mm[Hg] Justin Martinez MD Work Phone: [facility] 10-09-2024 14:35-0500 Heart rate 81 /min Justin Martinez MD Work Phone: [facility] 10-09-2024 14:35-0500 Respiratory rate 24 /min Justin Martinez MD Work Phone: [facility] 10-09-2024 14:35-0500 SaO2% (BldA) [Mass fraction] 100 % Justin Martinez MD Work Phone: [facility] 10-09-2024 14:35-0500 Systolic blood pressure 127 mm[Hg] Justin Martinez MD Work Phone: [facility] 10-09-2024 13:34-0500 Inhaled oxygen flow rate 2 L/min Justin Martinez MD Work Phone: [facility] 10-09-2024 12:06-0500 Body height 182.88 cm Justin Martinez MD Work Phone: [facility] 10-09-2024 12:06-0500 Body temperature 98.3 [degF] Justin Martinez MD Work Phone: [facility] 10-09-2024 12:06-0500 Body weight 82.5 kg Justin Martinez MD Work Phone: [facility] 09-16-2024 10:30-0500 Body height 182.88 cm Justin Martinez MD Work Phone: [facility] 09-16-2024 10:30-0500 Body mass index (BMI) [Ratio] 24.7 kg/m2 Justin Martinez MD Work Phone: [facility] 09-16-2024 10:30-0500 Body temperature 96.5 [degF] Justin Martinez MD Work Phone: [facility] 09-16-2024 10:30-0500 Body weight 82.55 kg Justin Martinez MD Work Phone: [facility] 09-16-2024 10:30-0500 Diastolic blood pressure 72 mm[Hg] Justin Martinez MD Work Phone: [facility] 09-16-2024 10:30-0500 Heart rate 76 /min Justin Martinez MD Work Phone: [facility] 09-16-2024 10:30-0500 Respiratory rate 16 /min Justin Martinez MD Work Phone: [facility] 09-16-2024 10:30-0500 SaO2% (BldA) [Mass fraction] 97 % Justin Martinez MD Work Phone: [facility] 09-16-2024 10:30-0500 Systolic blood pressure 92 mm[Hg] Justin Martinez MD Work Phone: [facility] 09-03-2024 09:30-0500 Body height 182.88 cm [facility] 09-03-2024 09:30-0500 Body mass index (BMI) [Ratio] 24.7 kg/m2 [facility] 09-03-2024 09:30-0500 Body temperature 96.4 [degF] [facility] 09-03-2024 09:30-0500 Body weight 82.55 kg [facility] 09-03-2024 09:30-0500 Diastolic blood pressure 69 mm[Hg] [facility] 09-03-2024 09:30-0500 Heart rate 76 /min [facility] 09-03-2024 09:30-0500 Respiratory rate 20 /min [facility] 09-03-2024 09:30-0500 SaO2% (BldA) [Mass fraction] 96 % [facility] 09-03-2024 09:30-0500 Systolic blood pressure 112 mm[Hg] [facility] 07-16-2024 11:06-0400 Body height 180.3 cm Justin Martinez MD Work Phone: [facility] 07-16-2024 11:06-0400 Body mass index (BMI) [Ratio] 26.22 kg/m2 Justin Martinez MD Work Phone: [facility] 07-16-2024 11:06-0400 Body weight 85.28 kg Justin Martinez MD Work Phone: [facility] 07-16-2024 11:06-0400 Diastolic blood pressure 78 mm[Hg] Justin Martinez MD Work Phone: [facility] 07-16-2024 11:06-0400 Heart rate 80 /min Justin Martinez MD Work Phone: [facility] 07-16-2024 11:06-0400 SaO2% (BldA) [Mass fraction] 96 % Justin Martinez MD Work Phone: [facility] 07-16-2024 11:06-0400 Systolic blood pressure 110 mm[Hg] Justin Martinez MD Work Phone: [facility] 07-03-2024 10:24-0400 Body height 182.88 cm [facility] 07-03-2024 10:24-0400 Body mass index (BMI) [Ratio] 25.6 kg/m2 [facility] 07-03-2024 10:24-0400 Body temperature 97.4 [degF] [facility] 07-03-2024 10:24-0400 Body weight 85.72 kg [facility] 07-03-2024 10:24-0400 Diastolic blood pressure 62 mm[Hg] [facility] 07-03-2024 10:24-0400 Heart rate 69 /min [facility] 07-03-2024 10:24-0400 Respiratory rate 20 /min [facility] 07-03-2024 10:24-0400 SaO2% (BldA) [Mass fraction] 97 % [facility] 07-03-2024 10:24-0400 Systolic blood pressure 97 mm[Hg] [facility] 06-06-2024 11:26-0400 Body height 182.88 cm [facility] 06-06-2024 11:26-0400 Body mass index (BMI) [Ratio] 26.6 kg/m2 [facility] 06-06-2024 11:26-0400 Body temperature 97.7 [degF] [facility] 06-06-2024 11:26-0400 Body weight 88.9 kg [facility] 06-06-2024 [id number] Diastolic blood pressure 59 mm[Hg] [facility] 06-06-2024 11:26-0400 Heart rate 83 /min [facility] 06-06-2024 11:[id number] Respiratory rate 18 /min [facility] 06-06-2024 11:26-0400 SaO2% (BldA) [Mass fraction] 98 % [facility] 06-06-2024 11:[id number] Systolic blood pressure 87 mm[Hg] [facility] 06-04-2024 10:250400 Body height 180.3 cm Justin Martinez MD Work Phone: [facility] 06-04-2024 10:25-0400 Body mass index (BMI) [Ratio] 27.34 kg/m2 Justin Martinez MD Work Phone: [facility] 06-04-2024 10:25-0400 Body weight 88.91 kg Justin Martinez MD Work Phone: [facility] 06-04-2024 10:25-0400 Diastolic blood pressure 88 mm[Hg] Justin Martinez MD Work Phone: [facility] 06-04-2024 10:25-0400 Heart rate 91 /min Justin Martinez MD Work Phone: [facility] 06-04-2024 10:25-0400 SaO2% (BldA) [Mass fraction] 94 % Justin Martinez MD Work Phone: [facility] 06-04-2024 10:25-0400 Systolic blood pressure 126 mm[Hg] Justin Martinez MD Work Phone: [facility] 02-22-2024 11:23-0400 Body height 182.88 cm MD Justin Martinez Work Phone: [facility] 02-22-2024 11:23-0400 Body mass index (BMI) [Ratio] 28.7 kg/m2 MD Justin Martinez Work Phone: [facility] 02-22-2024 11:23-0400 Body temperature 96.2 [degF] MD Justin Martinez Work Phone: [facility] 02-22-2024 11:23-0400 Body weight 96.16 kg MD Justin Martinez Work Phone: [facility] 02-22-2024 11:23-0400 Diastolic blood pressure 70 mm[Hg] MD Justin Matrinez Work Phone: [facility] 02-22-2024 11:23-0400 Heart rate 95 /min MD Justin Martinez Work Phone: [facility] 02-22-2024 11:23-0400 Respiratory rate 18 /min MD Justin Martinez Work Phone: [facility] 02-22-2024 11:23-0400 SaO2% (BldA) [Mass fraction] 98 % MD Justin Martinez Work Phone: [facility] 02-22-2024 11:23-0400 Systolic blood pressure 112 mm[Hg] MD Justin Martinez Work Phone: [facility] 01-25-2024 16:01-0400 Diastolic blood pressure 84 mm[Hg] [facility] 01-25-2024 16:01-0400 Heart rate 97 /min [facility] 01-25-2024 16:01-0400 SaO2% (BldA) [Mass fraction] 95 % [facility] 01-25-2024 16:01-0400 Systolic blood pressure 120 mm[Hg] [facility] 03-16-2023 10:20-0400 Body height 182.88 cm Magy Cummings Other [employer] [facility] [employer] Other 03-16-2023 10:20-0400 Body mass index (BMI) [Ratio] 30.08 kg/m2 Magy Emiliano Other [employer] Other 03-16-2023 10:20-0400 Body temperature 96.1 [degF] Magy Emiliano Other [employer] Other 03-16-2023 10:20-0400 Body weight 100.61 kg Magy Emiliano Other [employer] Other 03-16-2023 10:20-0400 Diastolic blood pressure 50 mm[Hg] Magy Emiliano Other [employer] Other 03-16-2023 10:20-0400 Respiratory rate 18 /min Magy Emiliano Other [employer] Other 03-16-2023 10:20-0400 SaO2% (BldA) [Mass fraction] 92 % Magy Emiliano Other [employer] Other 03-16-2023 10:20-0400 Systolic blood pressure 100 mm[Hg] Magy Emiliano Other [employer] Other 06-01-2022 14:39-0400 Body height 182.88 cm [employer] Work Phone: [employer] DO Work Phone: 06-01-2022 14:39-0400 Body mass index (BMI) [Ratio] 29.97 kg/m2 [employer] Work Phone: [employer] DO Work Phone: 06-01-2022 14:39-0400 Body surface area Derived from formula 2.22 m2 [employer] Work Phone: [employer] [employer] DO Work Phone: 06-01-2022 14:39-0400 Body weight 100.25 kg Rugmalinda Tiwari Juan Work Phone: [facility] 250 DO Work Phone: 06-01-2022 14:39-0400 Diastolic blood pressure 64 mm[Hg] Rugmalinda Tiwari Juan Work Phone: [facility] 250 DO Work Phone: 06-01-2022 14:39-0400 Heart rate 83 /min Rugmalinda Tiwari [place] Work Phone: [facility] 250 DO Work Phone: 06-01-2022 14:39-0400 Systolic blood pressure 130 mm[Hg] Justin Tiwari Juan Work Phone: [facility] 250 DO Work Phone: 04-21-2022 11:20-0400 Body height 182.88 cm Magy Emiliano Other [employer] Other 04-21-2022 11:20-0400 Body mass index (BMI) [Ratio] 29.45 kg/m2 Magy Emiliano Other [employer] Other 04-21-2022 11:20-0400 Body temperature 96.5 [degF] Magy Emiliano Other [employer] Other 04-21-2022 11:20-0400 Body weight 98.52 kg Magy Emiliano Other [employer] Other 04-21-2022 11:20-0400 Diastolic blood pressure 60 mm[Hg] Magy Emiliano Other [employer] Other 04-21-2022 11:20-0400 Respiratory rate 18 /min Magy Emiliano Other [employer] Other 04-21-2022 11:20-0400 SaO2% (BldA) [Mass fraction] 94 % Magy Emiliano Other [employer] Other 04-21-2022 11:20-0400 Systolic blood pressure 120 mm[Hg] Magy Emiliano Other [employer] Other Encounters Encounter Date Encounter Type Care Provider Facility Start: 10-28-2024 End: 10-28-2024 Patient encounter procedure Justin Martinez MD Work Phone: [facility] Work Phone: Start: 10-28-2024 End: 10-28-2024 ambulatory Justin Martinez MD Work Phone: [facility] Work Phone: Start: 10-28-2024 End: 10-28-2024 ambulatory Justin Martinez MD Work Phone: [facility] Work Phone: Start: 10-28-2024 End: 10-28-2024 Patient encounter procedure Justin Martinez MD Work Phone: [facility] Work Phone: Start: 10-21-2024 End: 10-21-2024 Transitional care manage srvc 14 day discharge Justin Martinez MD Work Phone: [facility] Comment on above: 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, 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) ([facility]/HCC) (Primary Dx); CKD stage 3b, GFR 30-44 ml/min ([facility]/HCC); Anemia in other chronic diseases classified elsewhere; CHF (congestive heart failure), NYHA class IV, acute on chronic, diastolic (CMS/HCC) Start: 10-21-2024 End: 10-21-2024 ambulatory JUSTIN MARTINEZ Not Available Start: 10-19-2024 End: 10-20-2024 Evaluation and management of inpatient Justin Martinez MD Work Phone: [facility] [place] [facility] Work Phone: Start: 10-09-2024 End: 10-09-2024 Emergency department patient visit Justin Martinez MD Work Phone: [facility]-Emergency Room Work Phone: Start: 09-16-2024 End: 09-16-2024 Patient encounter procedure Justin Martinez MD Work Phone: [facility] Work Phone: Start: 09-03-2024 End: 09-03-2024 Patient encounter procedure Justin Martinez MD Work Phone: [facility] [place] Work Phone: Start: 09-03-2024 End: 09-03-2024 ambulatory Justin Martinez MD Work Phone: [facility] Work Phone: Start: 09-03-2024 End: 09-03-2024 ambulatory [facility] Work Phone: Start: 09-03-2024 End: 09-03-2024 Patient encounter procedure [facility] Work Phone: Start: 08-09-2024 End: 08-10-2024 Refill Justin Martinez MD Work Phone: [facility] Comment on above: Atherosclerosis of n ative coronary artery of northway heart without angina pectoris (CMS/HCC) (Primary Dx); Essential hypertension (CMS/HCC) Start: 07-16-2024 End: 07-16-2024 Office outpatient visit 25 minutes Justin Martinez MD Work Phone: [facility] Comment on above: 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 Work Phone: Start: 07-03-2024 End: 07-03-2024 Patient encounter procedure [facility] Pulmonary Disease Work Phone: Start: 06-06-2024 End: 06-06-[address] [facility] Work Phone: Start: 06-06-2024 End: 06-06-2024 Patient encounter procedure [facility] Nephrology Work Phone: Start: 06-04-2024 End: 06-04-2024 Office outpatient visit 25 minutes Justin Martinez MD Work Phone: [facility] Comment on above: Pulmonary hypertensi on (CMS/HCC) (Primary Dx); Coronary artery disease due to lipid rich plaque (CMS/HCC); Congestive heart failure due to hypertension (CMS/HCC) Start: 06-04-2024 End: 06-04-2024 ambulatory JUSTIN M JUAN Not Available Start: 06-03-2024 Non-patient / Non-visit [facility] [employer] Work Phone: Start: 05-12-2024 End: 05-13-2024 Non-patient / Non-visit [facility] Work Phone: Start: 03-25-2024 End: 03-25-2024 ambulatory JUSTIN Tiwari JUAN Not Available Start: 03-06-2024 End: 03-06-2024 Patient encounter procedure MD Justin Martinez Work Phone: [facility] [place] Work Phone: Start: 03-06-2024 End: 03-06-2024 ambulatory MD Justin Martinez Work Phone: [facility] Work Phone: Start: 02-27-2024 End: 02-27-2024 ambulatory RUGEN M JUAN Not Available Start: 02-22-2024 End: 02-22-2024 ambulatory MD Justin Martinez Work Phone: [facility] Work Phone: Start: 02-22-2024 End: 02-22-2024 Patient encounter procedure MD Justin Martinez Work Phone: [facility] Nephrology [place] Work Phone: Start: 02-20-2024 End: 02-20-2024 ambulatory RUGMALINDA Tiwari JUAN Not Available Start: 02-15-2024 End: 02-15-2024 Patient encounter procedure MD Justin Martinez Work Phone: [facility] [place] Work Phone: Start: 02-15-2024 End: 02-15-2024 ambulatory MD Justin Martinez Work Phone: [facility] Work Phone: Start: 02-14-2024 End: 02-14-2024 Patient encounter procedure MD Justin Martinez Work Phone: [facility] [place] Work Phone: Start: 02-14-2024 End: 02-14-2024 ambulatory Rugen M Juan Facility:[facility] Start: 01-26-2024 End: 01-26-2024 Patient encounter procedure MD Justin Martinez Work Phone: [facility] [place] Work Phone: Start: 01-26-2024 End: 01-26-2024 ambulatory MD Justin Martinez Work Phone: [facility] Work Phone: Start: 01-25-2024 End: 01-25-2024 ambulatory [facility] Work Phone: Start: 01-25-2024 End: 01-25-2024 Patient encounter procedure [facility] Nephrology Work Phone: Start: 01-17-2024 Non-patient / Non-visit MD Brandon Martinez Work Phone: [facility] [employer] Work Phone: Start: 01-04-2024 End: 01-04-2024 ambulatory JUSTIN MARTINEZ Not Available Start: 06-13-2023 Assay of hemosiderin , quant Justin Martinez MD Work Phone: [facility] Start: 03-16-2023 End: 03-16-2023 ambulatory Magy Emiliano Other [facility] [employer] Other Start: 03-16-2023 Office outpatient vi sit 25 minutes Magy Emiliano [facility] [place] Start: 06-01-2022 Office consultation new/estab patient 60 min Justin Martinez Work Phone: [facility] 250 DO Work Phone: Start: 06-01-2022 ambulatory Rashaad Stephens II Facility: Start: 05-30-2022 ambulatory Rashaad Stephens II [facility] Start: 04-21-2022 End: 04-21-2022 ambulatory Magy Emiliano Other [facility] [employer] Other Start: 04-21-2022 Office outpatient vi sit 15 minutes Magy Emiliano [facility] [place] Start: 10-05-2021 End: 10-05-[address] JUSTIN MARTINEZ Facility: Start: 09-29-2021 End: 09-29-2021 ambulatory [facility] [employer] Facility:H1 Start: 09-27-2021 End: 09-28-2021 ambulatory GOPAL BELL Facility:H1 Start: 02-02-2021 End: 02-02-[address] CHAR VILLASENOR Facility:H1 Start: 01-05-2021 End: 01-06-[address] JUSTIN MARTINEZ Facility:H1 Start: 12-14-2020 End: 12-15-[address] JUSTIN MARTINEZ Facility:H1 Procedures Date Procedure Procedure Detail Performing Clinician Start: 10-19-2024 Viral nucleic acid assay Justin Martinez MD Work Phone: Start: 10-19-2024 Plain chest X-ray Justin Martinez MD Work Phone: Start: 10-09-2024 Screening for occult blood in feces Justin Martinez MD Work Phone: Start: 10-09-2024 Computed tomography of abdomen and pelvis with contrast Justin Martinez MD Work Phone: Start: 11-17-2014 Colonoscopy Justin Martinez MD Work Phone: Cataract surgery Rugen M Ald a Work Phone: Cholecystectomy Rugen M Juan Work Phone: Endarterectomy Rugen M Juan Work Phone: Comment on above: Right carotid; Femoral endarterectomy Rugen M Juan Work Phone: Comment on above: Right- 05/11/2022- [...] Phone: Small intestine excision Rug en M [place] Work Phone: Total colonoscopy Rugen M Al da Work Phone: Comment on above: -; Plan of Treatment Date Care Activity Detail Author Start: 11-25-2024 End: 11-25-2024 Patient encounter procedure 11/25/2024 11:00 AM EST Office Visit [facility] [address] [facility] [address] [place] [address] Justin Martinez MD [address] [facility] [address] [place] [address] [facility] Start: 11-17-2024 Screening for malign ant neoplasm of colon [facility] Start: 11-09-2024 Pneumococcal Vaccine : 65+ Years (3 of 3 - PPSV23 or PCV20) Pneumococcal Vaccine: 65+ Years (3 of 3 - PPSV23 or PCV20) [facility] Comment on above: Postponed from 07/17 (Other Patient Reasons) Start: 10-21-2024 End: 10-21-2024 Patient encounter procedure 10/21/2024 11:00 AM EST Office Visit [facility] [address] [facility] [address] [place] [address] Justin Martinez MD 112 [facility] [address] [place] [address] [facility] Start: 10-20-2024 Administration of prophylactic treatment [facility] Start: 10-20-2024 End: 10-20-2024 [facility] Start: 10-19-2024 Hospital admission [facility] Start: 10-19-2024 [facility] Start: 06-27-2024 End: 06-27-2024 Patient encounter procedure 06/27/2024 1:15 PM EDT Office Visit [facility] [address] [facility] [address] [place] [address] Justin Martinez MD [address] [facility] [address] [place] [address] [facility] Start: 06-16-2024 Influenza vaccination Influenza Vacc ine (#1) [facility] Start: 01-26-2024 [facility] Start: 01-26-2024 Immunofixation for Urine [facility] Start: 03-03-1951 Screening for malign ant neoplasm of colon [facility] Albumin [Mass/volume ] in Serum or Plasma [facility] Albumin/Globulin ratio [facility] Electrophoresis: [id number] [facility] Electrophoresis: [id number] [facility] Electrophoresis: beta-globulin [facility] Electrophoresis: yony ma globulin [facility] Globulin [Mass/volum e] in Serum [facility] IgA [Mass/volume] in Serum or Plasma [facility] IgG [Mass/volume] in Serum or Plasma [facility] IgM [Mass/volume] in Serum or Plasma [facility] Immunofixation for Urine Fir [facility] [place] light chains.f ree [Mass/volume] in Serum [facility] [place] light chains.free/Lambda light chains.free [Mass Ratio] in Serum [facility] Lambda light chains. free [Mass/volume] in Serum or Plasma [facility] Natriuretic peptide. B prohormone N-Terminal [Mass/volume] in Serum or Plasma [facility] Patient Education [facility] Work Phone: Patient referral [facility] Work Phone: Protein [Mass/volume ] in Serum or Plasma [facility] Renal function 1999 panel - Serum or Plasma [facility] Renal function 1999 panel - Serum or Plasma [facility] Renal function 1999 panel - Serum or Plasma [facility] Renal function 1999 panel - Serum or Plasma [facility] Serum immunofixation [facility] Immunizations Immunization Date Immunization Notes Care Provider [facility]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 to their office for Congestive Heart Failure and requested that they contact you with an appointment.) Justin Martinez MD [Primary Care Provider] - (His office is closed today. Pleasecall on Monday to schedule a 7 day post hospital appointment.) Exam Physical Exam Vital Signs: Temp Pulse Resp BP Pulse Ox O2 Del Method O2 Flow Rate 97.5 F L 88 18 102/70 93 L Room Air 2 10/20/24 08:29 10/20/24 11:51 10/20/24 11:51 10/20/24 11:51 10/20/24 11:51 10/20/24 11:51 10/20/24 08:39 Narrative: General: Patient is lying in bed, comfortable and in no acute distress. Cardio: Regular rate and rhythm no M/G/R heart Respiratory: Patient sounds clear to auscultation bilaterally. Gastrointestinal: Nontender throughout and normal bowel sounds Extremities: No swelling noted in the legs, skin appears slightly dry. Neuro: Alert and oriented x 3. Diagnostic Studies Completed and Pending Studies Pending studies at discharge: 10/20/24 06:06 A1C with Estimated Average Glu [CHEM] IN AM Labs on day of discharge: 10/20/24 06:06: Corrected WBC 5.0, Uncorrected WBC Count 5.0, RBC 3.71 L, Hgb 9.0 L, Hct 27.9 L, MCV 75.2 L, MCH 24.2 L, MCHC 32.2 L, RDW 17.5 H, Plt Count 235, MPV 6.9, Neut % (Auto) 67.5, Lymph % (Auto) 20.1, [place] % (Auto) 10.1, Eos % (Auto) 1.3, Baso % (Auto) 1.0, Nucleat RBC Rel Count 0.0, Neut # (Auto) 3.4, Lymph # (Auto) 1.0, [place] # (Auto) 0.5, Eos # (Auto) 0.1, Baso # (Auto) 0.1, PHA Creatinine Clear 34.36, Sodium 138, Potassium 3.3 L, Chloride 101, Carbon Dioxide 31.1 H, Anion Gap 9.2, BUN 24, Creatinine 2.13 H, Est GFR (CKD-EPI) 32.274, Glucose 96, Calcium 9.5, Magnesium 2.0, Triglycerides 90, Cholesterol 79 L, LDL Cholesterol, Calc 35, VLDL Cholesterol 18, HDL Cholesterol 26, Cholesterol/HDL Ratio 3.0 10/19/24 12:34: Corrected WBC 5.9, Uncorrected WBC Count 5.9, RBC 3.81 L, Hgb 9.0 L, Hct 28.5 L, MCV 74.7 L, MCH 23.7 L, MCHC 31.7 L, RDW 17.6 H, Plt Count 292, MPV 6.8, Neut % (Auto) 72.4, Lymph % (Auto) 16.9, [place] % (Auto) 8.5, Eos % (Auto) 0.8, Baso % (Auto) 1.4, Nucleat RBC Rel Count 0.1, Neut # (Auto) 4.3, Lymph # (Auto) 1.0, [place] # (Auto) 0.5, Eos # (Auto) 0.0, Baso # (Auto) 0.1, Monocyte Dist Width 20.86 H, PHA Creatinine Clear 33.47, Sodium 134 L, Potassium 3.7, Chloride 100, Carbon Dioxide 28.8, Anion Gap 8.9, BUN 23, Creatinine 2.19 H, Est GFR (CKD-EPI) 31.216, Glucose 109 H, Calcium 9.5, Total Bilirubin 1.2 H, AST 12 L, ALT 6 L, Alkaline Phosphatase 105 H, Total Creatine Kinase 34, Troponin I High Sens 39.8 H, B-Natriuretic Peptide 2785.0 H, Total Protein 6.9, Albumin 3.4 L, Globulin 3.5, Albumin/Globulin Ratio 1.0, SARS-CoV-2 Rap RNA(RT-PCR) Negative Documented By: Geoff Swann DO 10/20/24 1242 Signed By: <Electronically signed by Geoff Swann DO> 10/20/24 1334 <Electronically signed by Alix Grimaldo> 10/20/24 1329 [facility] Work Phone: [phone] 732-182701-05-2025 [place] [address] Discharge Summary Signed Patient: Char Alatorre MR#: [id number] : 1950 Acct:[id number] Age/Sex: 73 / M Adm Date: 5 Loc: Room: [address] [place] [address]: Geoff Swann DO Copies to: MD Geoff Mccall, ~ Providers Date of Admission: 10/19/24 Date of Discharge: 10/20/24 Discharging Provider: Geoff Swann Additional Discharging Provider: Geoff Swann Primary Care Provider: Justin Martinez Discharge Diagnosis (1) Acute hypoxic respiratory failure: (2) Heart failure with preserved ejection fraction: (3) Anemia of renal disease: (4) Severe obstructive sleep apnea: (5) CKD (chronic kidney disease) stage 3, GFR 30-59 ml/min: Final Diagnosis Final Discharge Diagnosis: Multifactorial acute hypoxic respiratory failure secondary to heart failure withpreserved ejection fraction and pulmonary hypertension due to severe untreated sleep apnea Summary Hospital Course Hospital course: The patient, Mr. Alatorre, is a pleasant 73-year-old man with a past medical history of hypertension,hyperparathyroidism, hyper lipidemia, AAA repair, heartfailure with preserved ejection fraction, and recently diagnosed severe sleep apnea for which she does not yet have his CPAP, who presented for trouble breathing. He had come to the emergency department on for abdominal pain, where he had a CT scan with contrast, and for this and his chronic kidney disease he received a liter ofIV fluid. He says he has felt short of breath since then, but has increased his Lasix at home oral,to 40 mg after speaking with his rack room worker on the phone. His rack room worker in [facility] suggested increase Lasix temporarily to 40 mg to get fluid off, which was about 2 days ago. He says he still feels quite short of breath, to the point where he is using his oxygen concentrator during the day. Patient has an oxygen concentrator set to 2 L which he normally just uses at night. Patient denies shortness of breath when lying flat, denies swelling in his legs, and did not have any crackles when listened to. Patient came to the emergency department and received a dose of IV Lasix. Following admission, patient had an output difference of over a liter of fluid out. Upon exam, patient was found to no longer be fluid overloaded, though it is unsure his status at admission in the emergency department. Patient also hasrecently diagnosed pulmonary hypertension, diagnosed with a right-sided heart cath at another facility according to his . He says this is a known issue, and iswaiting for CPAP fitting to start treating his severe sleep apnea. Patient already knows he has to follow-up with his rack room worker about this issue, and is considering perhaps switching to our local cardiology group that will be quite a bit of a shorter drive. 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 We thought patient may have been slightly over diuresed when we saw him on the floor. Patient's creatinine had a very minor bump, but was still within acceptable limits for patient with chronic kidney disease stage III. Started trending down. Patient will follow-up with either our local cardiology group or his own rack room worker outpatient. Patient is feeling better this morning, and knows he has to have his pulmonary hypertension treated. Patient still has his oxygen athome. Patient was also instructed to follow-up with his primary care p hysician. Patient and his both agree with this plan and are comfortable with discharge today. I personally saw this patient on the day of the encounter, reviewed the history,performed the medina elements of the exam, formulated the plan of care and confirmed the Resident's assessment and plan. Patient was initially admitted for acute fever aspiration yesterday, he did receive 1 dose of IV Lasix emergency room however per my assessment he is already clinically euvolemic and possibly even on the dehydrated side. His weight has been trending down recently, his BNP was measured on September 25 and was 2500 and yesterday it was only 2500. His lungs were clear to auscultation bilaterally. The has verygood log of his medical records including a left and right heart catheter done recently, echocardiogram done in May which shows EF of 60 to 65%, the patientdoes have severe sleep apnea and is currently in the process of getting a CPAP machine. He also has pulmonary hypertension which was diagnosed on the right heart cath. I did give him 500 mL of Ringer lactate today and had a very long discussion with him regards to his dry weight of roughly 170 pounds and to take his Lasix only i f he realizes that his weight is trending up or have is becomingswollen in his lower extremities. 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 Ultimately I did not feel comfortable discharging him from the hospital today as I do not believe I have anything further to offer him here, hedid receive a prescription for Metamucil to take daily as he had mentioned constipation lately. I believe his current hypoxia is secondary to his pulmonary hypertension. His rack room worker is in [facility] as mentioned above, he is interested in switching to our local [facility] group and information was placed on the discharge and a referral will be faxed. - Geoff Swann DO Condition Condition at Discharge: Stable Status at Discharge Overall status at discharge: patient is back to baseline Time Spent with Patient Time spent providing/coordinating discharge services (# min): 30 Discharge Plan Discharge Plan Patient Disposition: Home Activity: No Activity Restriction Diet: Regular Instructions: Heart failure in adults - Discharge instructions, Know your Meds Prescriptions: New Metamucil Fiber Singles 3.4 gram Powder In Packet 1 packet PO DAILY 30 Days Qty: 30 0RF Continued nitroglycerin 0.4 mg tablet, sublingual 0.4 mg sublingual Q5M PRN (Reason: angina) cyanocobalamin (vitamin B-12) 1,000 mcg/mL solution 1,000 mcg IM .monthly ferrous sulfate 325 mg (65 mg iron) tablet 325 mg PO Q48HR Qty: 45 1RF Jardiance 10 mg tablet 10 mg PO DAILY carvedilol 3.125 mg tablet 3.125 mg PO BID Eliquis 5 mg tablet 5 mg PO BID atorvastatin 40 mg tablet 40 mg PO DAILY cholecalciferol (vitamin D3) 50 mcg (2,000 unit) capsule 2,000 unit PO DAILY nortriptyline 25 mg capsule 50 mg PO QHS clopidogrel [Plavix] 75 mg tablet 75 mg PO DAILY methylcellulose (with sugar) 2 gram/19 gram powder 1 tbsp PO DAILY Held furosemide 40 mg tablet 40 mg PO DAILY Hold Instructions: Resume taking when your weight trends up or your legs become swollen Follow Up: [facility] [Provider Group] (We sent a referral to their office for Congestive Heart Failure and requested that they contact you with an appointment.) Justin Martinez MD [Primary Care Provider] - (His office is closed today. Pleasecall on Monday to schedule a 7 day post hospital appointment.) Exam Physical Exam Vital Signs: Temp Pulse Resp BP Pulse Ox O2 Del Method O2 Flow Rate 97.5 F L 88 18 102/70 93 L Room Air 2 10/20/24 08:29 10/20/24 11:51 10/20/24 11:51 10/20/24 11:51 10/20/24 11:51 10/20/24 11:51 10/20/24 08:39 Narrative: General: Patient is lying in bed, comfortable and in no acute distress. Cardio: Regular rate and rhythm no M/G/R heart Respiratory: Patient sounds clear to auscultation bilaterally. Gastrointestinal: Nontender throughout and normal bowel sounds Extremities: No swelling noted in the legs, skin appears slightly dry. Neuro: Alert and oriented x 3. Diagnostic Studies Completed and Pending Studies Pending studies at discharge: 10/20/24 06:06 A1C with Estimated Average Glu [CHEM] IN AM Labs on day of discharge: 10/20/24 06:06: Corrected WBC 5.0, Uncorrected WBC Count 5.0, RBC 3.71 L, Hgb 9.0 L, Hct 27.9 L, MCV 75.2 L, MCH 24.2 L, MCHC 32.2 L, RDW 17.5 H, Plt Count 235, MPV 6.9, Neut % (Auto) 67.5, Lymph % (Auto) 20.1, [place] % (Auto) 10.1, Eos % (Auto) 1.3, Baso % (Auto) 1.0, Nucleat RBC Rel Count 0.0, Neut# (Auto) 3.4, Lymph # (Auto) 1.0, [place] # (Auto) 0.5, Eos # (Auto) 0.1, Baso # (Auto) 0.1, PHA Creatinine Clear 34.36, Sodium 138, Potassium 3.3 L, Chloride 101, Carbon Dioxide 31.1 H, Anion Gap 9.2, BUN 24, Creatinine 2.13 H, Est GFR (CKD-EPI) 32.274, Glucose 96, Calcium 9.5, Magnesium 2.0, Triglycerides 90, Cholesterol 79 L, LDL Cholesterol, Calc 35, VLDL Cholesterol 18, HDL Cholesterol 26, Lata sterol/HDL Ratio 3.0 10/19/24 12:34: Corrected WBC 5.9, Uncorrected WBC Count 5.9, RBC 3.81 L, Hgb 9.0 L, Hct 28.5 L, MCV 74.7 L, MCH 23.7 L, MCHC 31.7 L, RDW 17.6 H, Plt Count 292, MPV 6.8, Neut % (Auto) 72.4, Lymph % (Auto) 16.9, [place] % (Auto) 8.5, Eos % (Auto) 0.8, Baso % (Auto) 1.4, Nucleat RBC Rel Count 0.1, Neut # (Auto) 4.3, Lymph # (Auto) 1.0, [place] # (Auto) 0.5, Eos # (Auto) 0.0, Baso # (Auto) 0.1, Monocyte Dist Width 20.86 H, PHA Creatinine Clear 33.47, Sodium 134 L, Potassium 3.7, Chloride 100, Carbon Dioxide 28.8, Anion Gap 8.9, BUN 23, Creatinine 2.19 H, Est GFR (CKD-EPI) 31.216, Glucose 109 H, Calcium 9.5, Total Bilirubin 1.2 H, AST 12 L, ALT 6 L, Alkaline Phosphatase 105 H, Total Creatine Kinase 34, Troponin I High Sens 39.8 H, B-Natriuretic Peptide 2785.0 H, Total Protein 6.9, Albumin 3.4 L, Globulin 3.5, Albumin/Globulin Ratio 1.0, SARS-CoV-2 Rap RNA(RT- PCR) Negative Documented By: Geoff Swann DO 10/20/24 1242 Signed By: 10/20/24 1334 10/20/24 1329 [facility]01-04-2025 History and physical note Author Geoff Swann [facility] Note Date/Time October 19, 2024 4: 47pm [facility] [address] [place] [address] Hospitalist H&P Signed Patient: Char Alatorre MR#: [id number] : 1950 Acct:[id number] Age/Sex: 73 / M Adm Date: 5 Loc: Room: [address] [place] [address] Type: ADM IN Attending Dr: Geoff Swann DO Copies to: MD Geoff Barry, ~ HPI DATE OF EXAMINATION: 10/19/24 CHIEF COMPLAINT: shortness of breath HISTORY OF PRESENT ILLNESS: Mr Alatorre is a 73-year-old male with a past medical history of CHF with preserved ejection fraction, hypertension, hyperparathyroidism, hyperlipidemia and AAA who presents hospital with chief, shortness of breath. This apparently started around Padmini time. He came to our emergency room And he did have a CT scan with 1 L of IV fluid, he has felt short of breath since then. The patient does have a history of CHF as mentioned above, he was quite swollen over the summer and he was initially placed on Lasix 40 mg daily. He had a fair response to this, he was decreased to Lasix 20 mg daily on September 25 per his rack room worker in [facility]. 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 This was about 2 days ago and this happened. He presents today with still feeling short of breath, he reports constipation, he does not have worsening shortness of breath with laying flat, he laid flat from a in the room for about 5 minutes and was able to talk in full sentences and had no worsening dyspnea. With further discussion with the who has a very detailed medical records for him, his weight has actually been trending down lately, his dry weight is around 178 and per their his scale this morning he weighed 174. It has been trending down the last week or so. The patient reports constipation and dry mouth. He does report compliance with his medications and has not missed a dose. 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 Atrophic kidney Alcohol abuse Abdominal aortic aneurysm Surgical History Hx of cardiac catheterization x 3 Hx of resection of small bowel Hx of cholecystectomy Hx of cataract removal with insertion of prosthetic lens Hx of colonoscopy (~2017) History of abdominal aortic aneurysm repair History of back surgery History of right-sided carotid endarterectomy H/O hemorrhoidectomy Family History Brother Cancer Legacy FamHx Relation: Brother(s); Legacy FamHx Problem: Diagnosed with Cancer Father Cancer Legacy FamHx Problem: Diagnosed with Cancer Hypertension Mother Family history of pancreatic cancer Cancer Legacy FamHx Problem: Diagnosed with Cancer Sister Cancer Legacy FamHx Problem: Diagnosed with Cancer Social History Smoking Status: Former smoker Substance Use Type: Alcohol Substance Abuse Comment: One beer a week Meds Medications and Allergies Allergies No Known Allergies Allergy (Verified 10/19/24 12:12) Home Medications apixaban 5 mg tablet (Eliquis) 5 mg PO BID 01/25/24 [History Confirmed 10/19/24] atorvastatin 40 mg tablet 40 mg PO DAILY 02/22/24 [History Confirmed 10/19/24] cholecalciferol (vitamin D3) 50 mcg (2,000 unit) capsule 2,000 unit PO DAILY 02/22/24 [History Confirmed 10/19/24] clopidogrel 75 mg tablet (Plavix) 75 mg PO DAILY 06/06/24 [History Confirmed 10/19/24] methylcellulose (with sugar) 2 gram/19 gram oral powder 1 tbsp PO DAILY 06/06/24[History Confirmed 10/19/24] nitroglycerin 0.4 mg sublingual tablet 0.4 mg sublingual Q5M PRN angina 06/20/24[History Confirmed 10/19/24] cyanocobalamin (vitamin B-12) 1,000 mcg/15 mL oral liquid 1,000 mcg PO QMONTH 07/03/24 [History Confirmed 10/19/24] empagliflozin 10 mg tablet (Jardiance) 10 mg PO DAILY 07/03/24 [History Confirmed 10/19/24] furosemide 40 mg tablet 40 mg PO DAILY 07/03/24 [History Confirmed 10/19/24] carvedilol 3.125 mg tablet 3.125 mg PO BID 09/16/24 [History Confirmed 10/19/24] ferrous sulfate 325 mg (65 mg iron) tablet 325 mg PO Q48HR #45 tabs 09/16/24 [Rx Confirmed 10/19/24] nortriptyline 25 mg capsule 50 mg PO QHS 09/16/24 [History Confirmed 10/19/24] Exam Physical Exam Vital Signs: Pulse Resp BP Pulse Ox O2 Del Method O2 Flow Rate 79 18 132/65 93 L Nasal Cannula 2 10/19/24 14:32 10/19/24 14:32 10/19/24 14:32 10/19/24 15:14 10/19/24 15:14 10/19/24 15:14 Narrative: General: Awake alert, no acute distress, his and daughter present at bedside HEENT: head atraumatic, normocephalic, moist mucous membranes Neck: supple no masses, no lymphadenopathy CVS: regular rate and rhythm, no murmurs or gallops Respiratory: clear to auscultation bilaterally, no wheezing or crackles, symmetric expansion GI: soft, nondistended, nontender, positive bowel sounds with no organomegaly Extremity: moves all extremities, no restrictions of movements, no calf tenderness, no edema Neuro: AOx3, CN II-VII intact. Moves all extremities in all planes of motion. Skin: dry, intact no rashes or lesions Results - Hospitalist H&P Lab Results Labs: Laboratory Last Values Corrected WBC 5.9 X10E3/uL (4.1-10.5) 10/19/24 12:34 Uncorrected WBC Count 5.9 x10E3/uL (4.1-10.5) 10/19/24 12:34 RBC 3.81 x10E6/uL (3.90-5.60) L 10/19/24 12:34 Hgb 9.0 g/dL (13.0-17.0) L 10/19/24 12:34 Hct 28.5 % (38.8-50.0) L 10/19/24 12:34 MCV 74.7 fl (83.5-101) L 10/19/24 12:34 MCH 23.7 pg (27.5-35.2) L 10/19/24 12:34 MCHC 31.7 g/dL (32.5-35.6) L 10/19/24 12:34 RDW 17.6 % (12.0-14.8) H 10/19/24 12:34 Plt Count 292 x10E3/uL (150-450) 10/19/24 12:34 MPV 6.8 fl (6.6-10.1) 10/19/24 12:34 Neut % (Auto) 72.4 % (.) 10/19/24 12:34 Lymph % (Auto) 16.9 % (.) 10/19/24 12:34 [place] % (Auto) 8.5 % (.) 10/19/24 12:34 Eos % (Auto) 0.8 % (.) 10/19/24 12:34 Baso % (Auto) 1.4 % (.) 10/19/24 12:34 Nucleat RBC Rel Count 0.1 /100 WBC (0-0.5) 10/19/24 12:34 Neut # (Auto) 4.3 x10E3/uL (1.8-7.7) 10/19/24 12:34 Lymph # (Auto) 1.0 x10E3/uL (1.00-4.8) 10/19/24 12:34 [place] # (Auto) 0.5 x10E3/uL (0.0-0.8) 10/19/24 12:34 Eos # (Auto) 0.0 x10E3/uL (0.0-0.45) 10/19/24 12:34 Baso # (Auto) 0.1 x10E3/uL (0.0-0.2) 10/19/24 12:34 Monocyte Dist Width 20.86 % (0.00-20.00) H 10/19/24 12:34 PHA Creatinine Clear 33.47 10/19/24 12:34 Sodium 134 mmol/L (136-145) L 10/19/24 12:34 Potassium 3.7 mmol/L (3.5-5.1) 10/19/24 12:34 Chloride 100 mmol/L (98-107) 10/19/24 12:34 Carbon Dioxide 28.8 mmol/L (21.0-31.0) 10/19/24 12:34 Anion Gap 8.9 mEq/L (6.0-15.0) 10/19/24 12:34 BUN 23 mg/dL (7-25) 10/19/24 12:34 Creatinine 2.19 mg/dL (0.70-1.30) H 10/19/24 12:34 Est GFR (CKD-EPI) 31.216 mL/Min 10/19/24 12:34 Glucose 109 mg/dL (70-100) H 10/19/24 12:34 Calcium 9.5 mg/dL (8.6-10.3) 10/19/24 12:34 Total Bilirubin 1.2 mg/dl (0.3-1.0) H 10/19/24 12:34 AST 12 U/L (13-39) L 10/19/24 12:34 ALT 6 U/L (7-52) L 10/19/24 12:34 Alkaline Phosphatase 105 U/L (34-104) H 10/19/24 12:34 Total Creatine Kinase 34 U/L (30-223) 10/19/24 12:34 Troponin I High Sens 39.8 pg/mL (0.0-20.0) H 10/19/24 12:34 B-Natriuretic Peptide 2785.0 pg/mL (5-100) H 10/19/24 12:34 Total Protein 6.9 gm/dL (6.4-8.9) 10/19/24 12:34 Albumin 3.4 gm/dL (3.5-5.7) L 10/19/24 12:34 Globulin 3.5 gm/dL 10/19/24 12:34 Albumin/Globulin Ratio 1.0 10/19/24 12:34 SARS-CoV-2 Rap RNA(RT-PCR) Negative (Negative) 10/19/24 12:34 Microbiology Results Micro: Microbiology - Results from entire visit 10/19/24 12:34 Nasopharyngeal SARS-CoV-2, Influenza & RSV (PCR) - Final Assessment & Plan Assessment/Plan (1) Acute hypoxic respiratory failure: Plan: ? I do believe he is currently overall dehydrated and his lungs are overall dry thus causing him to feel short of breath ? Will place incentive spirometer at bedside ? Lasix was administered in the emergency room ? Monitor his creatinine closely with morning labs (2) Heart failure with preserved ejection fraction: Plan: ? Most recent echocardiogram was from May 2023 and the memory calls his EF was 60 to 65% ? There is currently no evidence of volume overload, his lower extremities are not swollen, his lungs are clear to auscultation bilaterally, he has no orthopnea, he reports some constipation and dry mouth ? 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 Had not made a final decision yet, if they do decide to stick with our cardiology group here we will consider consultation pending his clinical course. (3) Anemia of renal disease: Plan: Stable and at his baseline (4) Severe obstructive sleep apnea: Plan: He has a sleep study approving this, he does not have a CPAP seen yet as his appointment is in December ? Will likely desaturate during the night (5) CKD (chronic kidney disease) stage 3, GFR 30-59 ml/min: Plan: Baseline creatinine is right around 2, he is slightly above that today with 2.19 Plan ? DVT prophylaxis addressed with his home dose of Eliquis ? Regular diet ? Full code IP vs OBS Justification Based on differential dx, clinical care plan, and risk of adverse events, if untreated, in my clinical judgement this patient requires an acute care setting as: INPATIENT because of an expectation of an over 2 midnight stay. Estimated length of stay (# of days): 3 Documented By: Geoff Swann DO 10/19/24 4393 Signed By: <Electronically signed by Geoff Swann DO> 10/19/24 3347 [facility] Work Phone: 1(771) 524-824601-04-2025 History and physical [place] [id number] Hospitalist H&P Signed Patient: Char Alatorre MR#: [id number] : 1950 Acct:[id number] Age/Sex: 73 / M Adm Date: 5 Loc: Room: [address] [place] [address] Type: ADM IN Attending Dr: Geoff Swann DO Copies to: MD Geoff Barry, ~ HPI DATE OF EXAMINATION: 10/19/24 CHIEF COMPLAINT: shortness of breath HISTORY OF PRESENT ILLNESS: Mr Alatorre is a 73-year-old male with a past medical history of CHF with preserved ejection fraction, hypertension, hyperparathyroidism, hyperlipidemia and AAA who presents hospital with chief, shortness of breath. This apparently started around Padmini time. He came to our emergency room And he did have a CT scan with 1 L of IV fluid, he has felt short of breath since then. The patient does have a history of CHF as mentioned above, he was quite swollen over the summer and he was initially placed on Lasix 40 mg daily. He had a fair response to this, he was decreased to Lasix 20 mg daily on September 25 per his rack room worker in [facility]. 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 This was about 2 days ago and this happened. He presents today with still feeling short of breath, he reports constipation, he does not have worsening shortness of breath with laying flat, he laid flat from a in the room for about 5 minutes andwas able to talk in full sentences and had no worsening dyspnea. With further discussion with the who has a very detailed medical records for him, his weight has actually been trending down lately, his dry weight is around 178 and per their his scale this morning he weighed 174. It has been trending down the last week or so. The patient reports constipation and dry mouth. He does report compliance with his medications and has not missed a dose. 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 Canelo Teran DO Attending Provider Active St art: October 28, 2024 End: October 28, 2024 Team Status: Inactive Member Role Status Cyndee Martinez MD Primary Care Provider Active S tart: October 28, 2024 End: October 28, 2024 Donna Villarreal MD Referring Provider Active Start: October 28, 2024 End: October 28, 2024 Trav Anand MD Attending Provider Active Start: October 28, 2024 End: October 28, 2024 Goals (unrecognized section and content) Goals [...] BE BASED ON THE PRIMARY CLINICAL RECORDS. [facility] [employer] provides no warranty or guarantee of the accuracy or completeness of information in this document.
[2024-11-07 20:42] LABS: Glucometer 122 mg/dL (74-106)
[2024-11-07] MEDS: NORTRIPTYLINE HCL 25 MG CAPSULE 50 MG PO (21:26)
[2024-11-07] MEDS: CARVEDILOL 3.125 MG TABLET PO (21:26)
[2024-11-07] MEDS: APIXABAN 5 MG TABLET PO (21:26)
[2024-11-08] VITALS (16 sets, daily range): BP systolic 104–114; BP diastolic 72–79; PULSE 83–92; TEMP 36.4–36.5; O2SAT 92–99
[2024-11-08] MEDS: ZIPRASIDONE MESYLATE 20 MG VIAL 10 MG IM (02:21)
[2024-11-08] MEDS: WATER FOR INJECTION, STERILE 20 ML VIAL INJ (02:21)
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
[2024-11-08 05:31] LABS: ABG PCO2 45.1 mmHg (35.0-45.0); pH ABG 7.387 (7.350-7.450)
[2024-11-08 05:32] LABS: Allen Test POSITIVE (POSITIVE); Base Excess ABG 2.1 mmol/L (-2.0-2.0); HCO3 ABG 27.1 mmol/L (22.0-26.0); Liters per Minute 2.5; O2 Mode NASAL CANNULA; Oxygen Saturation ABG 90.7 %; Puncture Site LR
[2024-11-08 07:01] LABS: Bilirubin Urine NEGATIVE (NEGATIVE); Blood Urine NEGATIVE (NEGATIVE); Clarity Urine CLEAR (CLEAR); Color Urine LT. YELLOW (YELLOW); Glucose Urine UA 500 mg/dL (NEGATIVE); Ketones Urine NEGATIVE (NEGATIVE); Leukocyte Esterase Urine NEGATIVE (NEGATIVE); Nitrite Urine NEGATIVE (NEGATIVE); Protein Urine 100 mg/dL (NEG/TRACE); Urobilinogen Urine 0.2 EU/dL (0.2-1.0)
[2024-11-08 07:09] LABS: Bacteria Urine NONE SEEN #/HPF (NONE SEEN); Mucus Urine NONE SEEN (NONE SEEN); RBC Urine NONE SEEN #/HPF (0-2); Squamous Epithelial Cell Urine NONE SEEN #/LPF (NONE/RARE); WBC Urine 0-2 #/HPF (NONE SEEN)
[2024-11-08 07:10] LABS: Cast Seen? NONE SEEN #/LPF (NONE SEEN); Crystals Seen? None Seen #/HPF (None Seen)
[2024-11-08 07:43] LABS: Glucometer 95 mg/dL (74-106)
[2024-11-08 08:11] LABS: Basophils Absolute Auto 0.1 10^3/uL (0.0-0.1); Basophils Percent Auto 1.5 % (0.2-2.0); Eosinophils Absolute Auto 0.1 10^3/uL (0.0-0.7); Eosinophils Percent Auto 0.9 % (0.9-7.0); Hematocrit 33.1 % (42.0-54.0); Hemoglobin 9.9 g/dL (14.0-18.0); Immature Granulocytes Abs Auto 0.02 10^3/uL (0.00-0.03); Immature Granulocytes Pct Auto 0.3 % (0.0-0.5); Lymphocytes Absolute Auto 1.5 10^3/uL (1.2-3.8); Lymphocytes Percent Auto 21.6 % (20.5-60.0); Mean Corpuscular HGB Conc 29.9 g/dL (29.9-35.2); Mean Corpuscular Hemoglobin 23.3 pg (25.9-34.0); Mean Corpuscular Volume 77.9 fL (80.0-94.0); Mean Platelet Volume 9.1 fL (9.5-13.5); Monocytes Absolute Auto 0.8 10^3/uL (0.3-0.8); Neutrophils Absolute Auto 4.4 10^3/uL (1.4-6.5); Neutrophils Percent Auto 63.7 % (43.0-75.0); Platelet Count 249 10^3/uL (150-450); Red Blood Count 4.25 10^6/uL (4.70-6.10); Red Cell Distribution Width 17.6 % (11.0-15.0); White Blood Count 6.8 10^3/uL (4.0-11.0)
[2024-11-08 08:14] LABS: Ammonia <10 umol/L (11-32)
[2024-11-08 08:28] LABS: Alanine Aminotransferase 174 U/L (16-63); Albumin Globulin Ratio 0.5; Albumin Level 2.3 g/dL (3.4-5.0); Alkaline Phosphatase 243 U/L (46-116); Anion Gap 9.1; Aspartate Amino Transferase 148 U/L (15-37); BUN Creatinine Ratio 13.3; Bilirubin Total 1.4 mg/dL (0.2-1.0); Calcium 9.3 mg/dL (8.5-10.1); Carbon Dioxide 29.6 mmol/L (21.0-32.0); Chloride 100 mmol/L (98-107); Estimated GFR (African America 32 (>=60 mL/min/1.73m^2); Estimated GFR (Non-African Ame 27 (>=60 mL/min/1.73m^2); Globulin 4.3 g/dL; Glucose 87 mg/dL (74-106); Potassium 3.7 mmol/L (3.5-5.1); Sodium 135 mmol/L (136-145); Total Protein 6.6 g/dL (6.4-8.2)
--- NOTE | 2024-11-08 10:16 | US_ITS ---
The [address] [address] Patient Name: CHAR ALATORRE MRN: [id number] date: 1950 Sex: M Assigned Patient Location: [place] Current Patient Location: [place] Accession/Order Number: [id number] Exam Date: 11/08/2024 07:30 Report Date: 11/09/2024 08:36 At the request of: SHAIKH RAUL Procedure: US right upper quadrant EXAM: Abdominal ultrasound limited CLINICAL INDICATION: Abnormal liver enzymes. COMPARISON: CT scan dated 02/02/2021 TECHNIQUE: Grayscale and color Doppler imaging was performed of the right upper quadrant abdomen. FINDINGS: Liver: Normal hepatic echotexture. No hepatomegaly. No abnormal hepatic masses. Portal and hepatic veins are grossly patent. Gallbladder: Cholelithiasis with gallbladder filled with stones. No gallbladder wall thickening. No pericholecystic fluid. No evidence of sonographic Verdin's sign noted by the sanitation lead. Nondilated gallbladder. Biliary: No intrahepatic biliary ductal dilation. Common bile duct measures 2 mm. Kidneys: Limited visualization of the right kidney. No definite right hydronephrosis. Right kidney measures 10.6 cm length. Right renal cyst measuring up to 3.5 cm. Aorta/IVC: Patent and normal caliber where visualized. No ascites. US/US right upper quadrant IMPRESSION: 1. No acute sonographic abnormalities in the right upper quadrant. 2. Cholelithiasis with gallbladder filled with stones. Electronically authenticated by: LEO CORREA Date: 11/09/2024 08:36
[2024-11-08] MEDS: CHOLECALCIFEROL (VITAMIN D3) 25 MCG/1,000 UNITS TABLET 50 MCG PO (10:24)
[2024-11-08] MEDS: CARVEDILOL 3.125 MG TABLET PO ×2 (10:24→20:32)
[2024-11-08] MEDS: CLOPIDOGREL BISULFATE 75 MG TABLET PO (10:24)
[2024-11-08] MEDS: APIXABAN 5 MG TABLET PO ×2 (10:24→20:32)
--- NOTE | 2024-11-08 10:28 | CM.NOTE ---
Rounds made with Dr. Neves. Dr. Neves explains clinical findings with Mr/Mrs Shearer. New orders and Consults reviewed with Mrs. Shearer. Understanding verbalized.
--- NOTE | 2024-11-08 10:39 | SWNOTE1 ---
Medicare Outpatient Observation Notice reviewed and discussed with patient's . Pt's verbalized understanding and signed the form. Original given to patient and copy placed in patient?s chart.
--- NOTE | 2024-11-08 10:40 | SWNOTE1 ---
SW met with pt's in room to discuss dc plans. Pt is laying in bed, but has confusion. Pt lives at home with . Pt's has discussed SNF with doctor and case management. SW went over SNF with pt's as well. Pt's is aware of out of pocket cost at this time for SNF since pt is in observation status. SW and pt spoke about Home health as well. ILYA provided her with a HH list from medicare.gov with star ratings. At this time unsure of discharge plans as we are awaiting further testing. SW to stop back in later today.
[2024-11-08 12:00] LABS: Glucometer 137 mg/dL (74-106)
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
--- NOTE | 2024-11-08 13:13 | SWNOTE1 ---
SW did stop back in to speak with pt and . SW did let pt's and pt know the cost of out of pocket rehab and checked to see if they had the funds to pay out of pocket. At this time pt's voiced that they do not. [facility] if he does go home with home health. SW advised that SW will send referral and get it set up in case of dc over the weekend.
--- NOTE | 2024-11-08 13:30 | SWNOTE1 ---
Referral sent to [facility]. Referral included face sheet, ED note, H&P, provider notes, case management report, and PT/OT notes.
--- NOTE | 2024-11-08 13:57 | MR_ITS ---
The [address] [address] Patient Name: CHAR ALATORRE MRN: [id number] date: 1950 Sex: M Assigned Patient Location: [place] Current Patient Location: [place] Accession/Order Number: [id number] Exam Date: 11/08/2024 15:15 Report Date: 11/08/2024 16:02 At the request of: SHAIKH RAUL Procedure: MR head/brain wo con EXAM: MR head/brain wo con CLINICAL INDICATION: Confusion, suspected CVA COMPARISON: CT head 11/07/2024. TECHNIQUE/PROTOCOL: Standard noncontrast protocol brain MRI performed (Sagittal T1 with axial T1, T2, GRE, FLAIR, and diffusion-weighted imaging). FINDINGS: No restricted diffusion, extra-axial fluid collection, hydrocephalus, midline shift, or other mass effect. Intracranial flow voids are maintained. Patchy and confluent hyperintense T2/FLAIR periventricular and subcortical foci are likely on the basis of chronic microvascular angiopathic changes. Moderate symmetric global volume loss without lobar predominance. Commensurate ventricular system caliber enlargement. Multifocal encephalomalacia/gliosis throughout the bilateral frontal lobes and inferior temporal lobes. No abnormal stability signal. Normal marrow signal. No soft tissue abnormalities. Paranasal sinuses and mastoid air cells are well-aerated. MR/MR head/brain wo con IMPRESSION: No acute intracranial process or recent infarction. Electronically authenticated by: ARSENIO PIMENTEL Date: 11/08/2024 16:02
--- NOTE | 2024-11-08 14:07 | SWNOTE1 ---
SW stopped back in and spoke with . Pt does wear home oxygen 2 liters at home continuous and it is from [facility]. ILYA spoke with pt's about a walker. Pt's brother in room as well. SW did speak with them about a walker as therapy did recommend it. would like SW to try and get a walker for at home through his Medicare. She stated she will buy another one for the second floor. It is a 2 level home and recommended to have a walker on both floors. Pt's brother also stated that [employer] sometimes has some walkers as well that they give away. stated the [employer] does lend them as well. SW also stated that sometimes [facility] has them as well. They would like SW to try to get just a wheeled walker through his Medicare and they will get another one. ILYA sent H&P, PT note, demographic sheet, and script to [facility]. wanted to use [facility] as that is close by and where he gets his home oxygen.
--- NOTE | 2024-11-08 15:10 | SWNOTE1 ---
[facility] is able to accept. ILYA put together discharge packet for weekend in case of dc over weekend. SW took to med/sruge floor.
[2024-11-08 16:24] LABS: Amphetamine Screen Urine NEGATIVE (NEGATIVE); Barbiturates Screen Urine NEGATIVE (NEGATIVE); Benzodiazepines Screen Urine NEGATIVE (NEGATIVE); Buprenorphine Screen Urine NEGATIVE (NEGATIVE); Cannabinoid Screen Urine NEGATIVE (NEGATIVE); Cocaine Screen Urine NEGATIVE (NEGATIVE); Methadone Screen Urine NEGATIVE (NEGATIVE); Methamphetamines Screen Urine NEGATIVE (NEGATIVE); Opiate Screen Urine NEGATIVE (NEGATIVE); Oxycodone Screen Urine NEGATIVE (NEGATIVE); Phencyclidine Screen Urine NEGATIVE (NEGATIVE); Tricyclic Antidepressant Urine POSITIVE (NEGATIVE)
--- NOTE | 2024-11-08 16:32 | SWNOTE1 ---
At this time SW not able to get walker due to not having a diagnosis. SW let pt's know.
[2024-11-08] MEDS: NORTRIPTYLINE HCL 25 MG CAPSULE 50 MG PO (20:32)
[2024-11-08 20:57] LABS: Glucometer 113 mg/dL (74-106)
[2024-11-09] VITALS (15 sets, daily range): BP systolic 102–114; BP diastolic 64–78; PULSE 79–90; TEMP 36.3–36.6; O2SAT 87–98
--- NOTE | 2024-11-09 04:49 | RESP.RT ---
Pt had oxygen out of nose. Placed 2L cannula back in patients nose and Sp02 increased to 94%.
[2024-11-09 06:08] LABS: Basophils Absolute Auto 0.1 10^3/uL (0.0-0.1); Basophils Percent Auto 0.7 % (0.2-2.0); Eosinophils Absolute Auto 0.1 10^3/uL (0.0-0.7); Eosinophils Percent Auto 0.7 % (0.9-7.0); Hematocrit 33.3 % (42.0-54.0); Hemoglobin 9.7 g/dL (14.0-18.0); Immature Granulocytes Abs Auto 0.05 10^3/uL (0.00-0.03); Immature Granulocytes Pct Auto 0.6 % (0.0-0.5); Lymphocytes Absolute Auto 1.6 10^3/uL (1.2-3.8); Lymphocytes Percent Auto 18.2 % (20.5-60.0); Mean Corpuscular HGB Conc 29.1 g/dL (29.9-35.2); Mean Corpuscular Hemoglobin 22.6 pg (25.9-34.0); Mean Corpuscular Volume 77.4 fL (80.0-94.0); Neutrophils Absolute Auto 5.9 10^3/uL (1.4-6.5); Neutrophils Percent Auto 67.8 % (43.0-75.0); Platelet Count 257 10^3/uL (150-450); Red Cell Distribution Width 17.4 % (11.0-15.0); White Blood Count 8.7 10^3/uL (4.0-11.0)
[2024-11-09 06:09] LABS: Vitamin B12 872 pg/mL (232-1245)
[2024-11-09 06:23] LABS: Alanine Aminotransferase 374 U/L (16-63); Albumin Globulin Ratio 0.6; Albumin Level 2.4 g/dL (3.4-5.0); Alkaline Phosphatase 323 U/L (46-116); Anion Gap 8.9; Aspartate Amino Transferase 375 U/L (15-37); Bilirubin Total 1.5 mg/dL (0.2-1.0); Calcium 9.4 mg/dL (8.5-10.1); Carbon Dioxide 26.8 mmol/L (21.0-32.0); Chloride 98 mmol/L (98-107); Estimated GFR (African America 28 (>=60 mL/min/1.73m^2); Estimated GFR (Non-African Ame 23 (>=60 mL/min/1.73m^2); Globulin 4.2 g/dL; Glucose 97 mg/dL (74-106); Potassium 3.7 mmol/L (3.5-5.1); Sodium 130 mmol/L (136-145); Total Protein 6.6 g/dL (6.4-8.2)
[2024-11-09] MEDS: APIXABAN 5 MG TABLET PO ×2 (08:35→21:31)
[2024-11-09] MEDS: CARVEDILOL 3.125 MG TABLET PO ×2 (08:35→21:32)
[2024-11-09] MEDS: CLOPIDOGREL BISULFATE 75 MG TABLET PO (08:35)
[2024-11-09] MEDS: CHOLECALCIFEROL (VITAMIN D3) 25 MCG/1,000 UNITS TABLET 50 MCG PO (08:35)
--- NOTE | 2024-11-09 10:30 | REH.PTDLY ---
Physical Therapy Daily Note PT Daily Note/Assess Start: 11/09/24 10:20 Freq: Status: Active Protocol: Document 11/09/24 10:20 GEOVANI (Rec: 11/09/24 10:30 GEOVANI [id number]) Physical Therapy Daily Note/Assessment Time In 10:00 Time Out 10:19 Subjective Pt in bathroom upon arrival with nursing in room. Nursing then leaves for [facility] to take over care. Pt not wearing O2 at this time. Therapeutic Exercise 7 Minutes (minutes) Therapeutic Exercise 0 Units Therapeutic Exercise Instructed in B LE seated exs 10x ea with cues needed Treatment for larger ROM. Pt performs Issac standing exs 10x ea with marching, mini squats and hip flexion for improved strength using UE support on RW CGA. Therapeutic Activity 11 Minutes (minutes) Therapeutic Activity 1 Units Therapeutic Activity CGA with toilet transfers and cues to use grab bar on Comments wall. Assistance to pull pants up. Gait 20 feet back to chair for pt to perform exs. Pt then ambulates another 45 feet CGA with RW and no O2 with no SOB noted. SpO2 checked and pt is fluctuating from 91-95%. states he wears O2 for the most part at home, but will take it off at times during the day if pt is not in distress and numbers are good. states she will leave O2 off of him for time being and put it back on if he drops. Lazara RN notified of O2 sats and is ok with O2 being off for now. Total Therapy 18 Minutes Total Physical 1 Therapy Units Daily Note Summary Improved strength and stamina today with gait and exs with no complaints of pain. Progressed gait distance and with standing exs. Still recommend HH at [place].
[2024-11-09] MEDS: 0.9 % SODIUM CHLORIDE 500 ML IV (11:36)
[2024-11-09 11:48] LABS: Glucometer 124 mg/dL (74-106)
--- NOTE | 2024-11-09 13:06 | PM.IMPN1 ---
Progress Note: A&P Assessment and Plan (1) VIKY (acute kidney injury): Assessment and Plan: Cr 2.6 on admission. Worse today along with hyponatremia. Started on IVF. Monitor Cr, UO closely. (2) Transaminitis: Assessment and Plan: AST/ALT -98/138 --> gradually worsening - now 375/374 No abdominal pain/GI symptioms US shows cholelithiasis but no evidence of cholecystitis Lipitor/Tylenol on hold. Unclear etiology - could be due to dehydration ? (3) Fall: Assessment and Plan: Mechanical fall. No acute injury. CTH - no acute finding. PT/OT eval Qualifiers: Encounter type: subsequent encounter Qualified Code(s): W19.XXXD - Unspecified fall, subsequent encounter (4) Generalized weakness: Assessment and Plan: Unsteady and unstable on his feet. Needing a walker. Did not need walker at home. C/w PT rx. (5) Head injury: Assessment and Plan: No acute finding on CTH. Qualifiers: Encounter type: subsequent encounter Qualified Code(s): S09.90XD - Unspecified injury of head, subsequent encounter (6) Confusion and disorientation: Assessment and Plan: Unclear etiology. No acute metabolic/infectious etiology. MRI brain - no acute finding. Normal B12, folate. Likely progressive dementia. Mental status waxes and wanes. Will need outpatient f/u and work up. (7) Chronic respiratory failure with hypoxia: Assessment and Plan: On 2 L O2 via NC. (8) HFrEF (heart failure with reduced ejection fraction): Assessment and Plan: Dehydrated on clinical exam. Started on gentle IV hydration. (9) CKD (chronic kidney disease) stage 4, GFR 15-29 ml/min: Assessment and Plan: Baseline Cr is 2.0, serum creatinine worsening and now 2.7 Will start IV hydration and monitor Cr, UO closely (10) CAD (coronary artery disease): Assessment and Plan: Recent PCI. Stent placed in 06/08. On ASA, Plavix. Qualifiers: Coronary Disease-Associated Artery/Lesion type: [place] artery [place] vs. transplanted heart: [place] heart Associated angina: without angina Qualified Code(s): I25.10 - Atherosclerotic heart disease of [place] coronary artery without angina pectoris (11) Hypertension: Assessment and Plan: Stable BP. c/w home medications Qualifiers: Hypertension type: primary hypertension Qualified Code(s): I10 - Essential (primary) hypertension (12) COPD (chronic obstructive pulmonary disease): Assessment and Plan: No active wheezing. Stable. C/w home medications Qualifiers: COPD type: unspecified COPD Qualified Code(s): J44.9 - Chronic obstructive pulmonary disease, unspecified (13) Paroxysmal A-fib: Assessment and Plan: In NSR. C/w Coreg and Eliquis (14) HLD (hyperlipidemia): Assessment and Plan: On Lipitor for CAD. Hold due to transaminitis. Qualifiers: Hyperlipidemia type: unspecified Qualified Code(s): E78.5 - Hyperlipidemia, unspecified Plan Worsening VIKY, Transaminitis and will now need IVF. Patient clinically worse after an initial period of observation and will need continued inpatient monitoring and treatment. Changed to inpatient, started on IVF. Repeat CMP at 2 pm. Internal Medicine - PN: Subj Subjective Interval history: Seen and examined. No overnight events. Patient more or less at baseline, but on morning labs, his VIKY worsened along with worsening of his LFTs. Exam Constitutional Vital Signs, click to edit/add: Last Vital Signs Temp 97.6 F 11/09/24 05:36 Pulse 82 11/09/24 11:51 Resp 18 11/09/24 05:36 BP 114/78 11/09/24 05:36 Pulse Ox 96 11/09/24 05:36 O2 Del Method Nasal Cannula 11/09/24 05:36 O2 Flow Rate 2 11/09/24 05:36 General appearance: cooperative, comfortable and ill appearing Respiratory Common normals: normal respiratory effort, no use of accessory muscles and clear to auscultation bilaterally Effort & inspection: able to speak in complete sentences Cardio Common normals: regular rate, regular rhythm, S1 normal heart sound and S2 normal heart sound GI Common normals: Normal to inspection, nondistended, normoactive bowel sounds present, non-tender and no hepatosplenomegaly Extremity Common normals: normal to inspection and full ROM Neuro Common normals: oriented x3, moves all extremities and no focal motor deficits Speech: abnormal speech Details: garbled Gait (neuro): ataxic Motor exam: strength 5/5 throughout Coordination: [id number] test normal Psych Common normals: denies homicidal ideation and denies suicidal ideation Other: AAOX 3 but confused and does not seem to have good drasp of reality and seemed confused overall Internal Medicine - PN: Obj Da Labs Labs: Laboratory Results - last 24 hr 11/08/24 11/08/24 11/08/24 05:28 14:16 20:56 WBC RBC Hgb Hct MCV MCH MCHC RDW Plt Count MPV Neut % (Auto) Lymph % (Auto) [place] % (Auto) Eos % (Auto) Baso % (Auto) Neut # (Auto) Lymph # (Auto) [place] # (Auto) Eos # (Auto) Baso # (Auto) Abs Immat Gran (auto) Imm/Tot Granulo (auto) Sodium Potassium Chloride Carbon Dioxide Anion Gap BUN Creatinine Est GFR ( Amer) Est GFR (Non-Af Amer) BUN/Creatinine Ratio Glucose Calcium Total Bilirubin AST ALT Alkaline Phosphatase Total Protein Albumin Globulin Albumin/Globulin Ratio Vitamin B12 872 Folate 10.40 Urine Opiates Screen Negative Ur Buprenorphine Scrn Negative Ur Oxycodone Screen Negative Urine Methadone Screen Negative Ur Barbiturates Screen Negative U Tricyclic Antidepress Positive A Ur Phencyclidine Scrn Negative Ur Amphetamines Screen Negative U Methamphetamines Scrn Negative U Benzodiazepines Scrn Negative Urine Cocaine Screen Negative U Cannabinoids Screen Negative POC Glucose 113 H 11/09/24 11/09/24 05:47 11:46 WBC 8.7 RBC 4.30 L Hgb 9.7 L Hct 33.3 L MCV 77.4 L MCH 22.6 L MCHC 29.1 L RDW 17.4 H Plt Count 257 MPV 9.0 L Neut % (Auto) 67.8 Lymph % (Auto) 18.2 L [place] % (Auto) 12.0 Eos % (Auto) 0.7 L Baso % (Auto) 0.7 Neut # (Auto) 5.9 Lymph # (Auto) 1.6 [place] # (Auto) 1.0 H Eos # (Auto) 0.1 Baso # (Auto) 0.1 Abs Immat Gran (auto) 0.05 H Imm/Tot Granulo (auto) 0.6 H Sodium 130 L Potassium 3.7 Chloride 98 Carbon Dioxide 26.8 Anion Gap 8.9 BUN 41.0 H Creatinine 2.74 H Est GFR ( Amer) 28 L Est GFR (Non-Af Amer) 23 L BUN/Creatinine Ratio 15.0 Glucose 97 Calcium 9.4 Total Bilirubin 1.5 H AST 375 H ALT 374 H Alkaline Phosphatase 323 H Total Protein 6.6 Albumin 2.4 L Globulin 4.2 Albumin/Globulin Ratio 0.6 Vitamin B12 Folate Urine Opiates Screen Ur Buprenorphine Scrn Ur Oxycodone Screen Urine Methadone Screen Ur Barbiturates Screen U Tricyclic Antidepress Ur Phencyclidine Scrn Ur Amphetamines Screen U Methamphetamines Scrn U Benzodiazepines Scrn Urine Cocaine Screen U Cannabinoids Screen POC Glucose 124 H
--- NOTE | 2024-11-09 13:07 | XR_ITS ---
The [address] [address] Patient Name: CHAR ALATORRE MRN: [id number] date: 1950 Sex: M Assigned Patient Location: Current Patient Location: Accession/Order Number: [id number] Exam Date: 11/09/2024 13:18 Report Date: 11/09/2024 14:16 At the request of: SHAIKH RAUL Procedure: XR chest 1V EXAM: XR chest 1V 11/09/2024 COMPARISON STUDY: AP chest 11/07/2024. FINDINGS: Upright AP chest image was obtained. Retrocardiac regions are difficult to accurately evaluate due to underpenetration. HISTORY: SOB. XR/XR chest 1V IMPRESSION: 1. Cardiomediastinal contours are stable. Moderate enlargement of the cardiac silhouette again noted. Mild atherosclerotic change and tortuosity of the aorta is again identified. 2. No dense consolidation, effusion, edema, failure, or pneumothorax based on AP imaging alone. 3. Old healed left-sided rib fracture deformities are again suggested. Electronically authenticated by: NICOLE ANDERSON Date: 11/09/2024 14:16
[2024-11-09 14:42] LABS: Alanine Aminotransferase 384 U/L (16-63); Albumin Globulin Ratio 0.6; Albumin Level 2.3 g/dL (3.4-5.0); Alkaline Phosphatase 329 U/L (46-116); Anion Gap 12.4; Aspartate Amino Transferase 360 U/L (15-37); BUN Creatinine Ratio 14.3; Bilirubin Total 1.6 mg/dL (0.2-1.0); Calcium 9.3 mg/dL (8.5-10.1); Carbon Dioxide 26.5 mmol/L (21.0-32.0); Chloride 98 mmol/L (98-107); Estimated GFR (African America 28 (>=60 mL/min/1.73m^2); Estimated GFR (Non-African Ame 23 (>=60 mL/min/1.73m^2); Globulin 4.1 g/dL; Glucose 107 mg/dL (74-106); Potassium 3.9 mmol/L (3.5-5.1); Sodium 133 mmol/L (136-145); Total Protein 6.4 g/dL (6.4-8.2)
[2024-11-09 16:09] LABS: Glucometer 134 mg/dL (74-106)
[2024-11-09] MEDS: NORTRIPTYLINE HCL 25 MG CAPSULE 50 MG PO (21:31)
[2024-11-09 21:37] LABS: Glucometer 114 mg/dL (74-106)
[2024-11-10 04:59] VITALS: O2SAT 94
[2024-11-10 06:00] VITALS: BP 105/66; PULSE 78; TEMP 36.3; O2SAT 95
[2024-11-10 06:21] LABS: Basophils Absolute Auto 0.1 10^3/uL (0.0-0.1); Basophils Percent Auto 0.8 % (0.2-2.0); Eosinophils Absolute Auto 0.1 10^3/uL (0.0-0.7); Eosinophils Percent Auto 0.6 % (0.9-7.0); Hematocrit 32.8 % (42.0-54.0); Hemoglobin 9.7 g/dL (14.0-18.0); Immature Granulocytes Abs Auto 0.04 10^3/uL (0.00-0.03); Immature Granulocytes Pct Auto 0.5 % (0.0-0.5); Lymphocytes Absolute Auto 1.4 10^3/uL (1.2-3.8); Lymphocytes Percent Auto 18.3 % (20.5-60.0); Mean Corpuscular HGB Conc 29.6 g/dL (29.9-35.2); Mean Corpuscular Volume 77.7 fL (80.0-94.0); Mean Platelet Volume 9.1 fL (9.5-13.5); Monocytes Absolute Auto 0.9 10^3/uL (0.3-0.8); Monocytes Percent Auto 11.5 % (1.7-12.0); Neutrophils Absolute Auto 5.4 10^3/uL (1.4-6.5); Neutrophils Percent Auto 68.3 % (43.0-75.0); Platelet Count 231 10^3/uL (150-450); Red Blood Count 4.22 10^6/uL (4.70-6.10); Red Cell Distribution Width 17.3 % (11.0-15.0); White Blood Count 7.9 10^3/uL (4.0-11.0)
[2024-11-10 06:41] LABS: Alanine Aminotransferase 413 U/L (16-63); Albumin Globulin Ratio 0.6; Albumin Level 2.3 g/dL (3.4-5.0); Alkaline Phosphatase 359 U/L (46-116); Anion Gap 10.8; Aspartate Amino Transferase 337 U/L (15-37); BUN Creatinine Ratio 14.7; Bilirubin Total 1.5 mg/dL (0.2-1.0); Calcium 9.4 mg/dL (8.5-10.1); Carbon Dioxide 27.9 mmol/L (21.0-32.0); Chloride 99 mmol/L (98-107); Estimated GFR (African America 27 (>=60 mL/min/1.73m^2); Estimated GFR (Non-African Ame 23 (>=60 mL/min/1.73m^2); Glucose 98 mg/dL (74-106); Potassium 3.7 mmol/L (3.5-5.1); Sodium 134 mmol/L (136-145); Total Protein 6.3 g/dL (6.4-8.2)
--- NOTE | 2024-11-10 08:16 | PC.NURSE ---
pt into chair with walker for breakfast, and daughter at bedside.
[2024-11-10] MEDS: 0.9 % SODIUM CHLORIDE 1,000 ML 100 ML IV ×2 (08:34→18:00)
[2024-11-10] MEDS: CARVEDILOL 3.125 MG TABLET PO ×2 (08:34→21:44)
[2024-11-10] MEDS: CHOLECALCIFEROL (VITAMIN D3) 25 MCG/1,000 UNITS TABLET 50 MCG PO (08:34)
[2024-11-10] MEDS: CLOPIDOGREL BISULFATE 75 MG TABLET PO (08:34)
[2024-11-10] MEDS: APIXABAN 5 MG TABLET PO ×2 (08:34→21:44)
--- NOTE | 2024-11-10 10:46 | PC.NURSE ---
pt ambulated down hallway to the corner window with walker. Walking without oxygen at 94%. No complaints of dizziness or SOB. Returned to room into chair on room air. Daughter at bedside.
[2024-11-10 11:02] VITALS: O2SAT 100
--- NOTE | 2024-11-10 11:03 | RESP.RT ---
Wears 2lpm at home
--- NOTE | 2024-11-10 11:30 | P.IMPN_ITS ---
Progress Note: A&P Assessment and Plan (1) VIKY (acute kidney injury): Assessment and Plan: Cr 2.6 on admission. Gradually worsening despite the fact that he was given IVF bolus. Started on IVF 100/hr. Monitor UO, serum Cr closely. CMP at 3 pm ordered. (2) Transaminitis: Assessment and Plan: AST/ALT -98/138 --> gradually worsening - 375/374 on 11/09/24 --> stil elevated today but no worsening noted. No abdominal pain/GI symptioms US shows cholelithiasis but no evidence of cholecystitis Lipitor/Tylenol on hold. Unclear etiology - could be due to dehydration ? started on IV hydration (3) Fall: Assessment and Plan: Mechanical fall. No acute injury. CTH - no acute finding. PT/OT eval Qualifiers: Encounter type: subsequent encounter Qualified Code(s): W19.XXXD - Unspecified fall, subsequent encounter (4) Generalized weakness: Assessment and Plan: Unsteady and unstable on his feet. Needing a walker. Did not need walker at home. C/w PT rx. (5) Head injury: Assessment and Plan: No acute finding on CTH. Qualifiers: Encounter type: subsequent encounter Qualified Code(s): S09.90XD - Unspecified injury of head, subsequent encounter (6) Confusion and disorientation: Assessment and Plan: Unclear etiology. No acute metabolic/infectious etiology. MRI brain - no acute finding. Normal B12, folate. Likely progressive dementia. Mental status waxes and wanes. Will need outpatient f/u and work up. (7) Chronic respiratory failure with hypoxia: Assessment and Plan: On 2 L O2 via NC. (8) HFrEF (heart failure with reduced ejection fraction): Assessment and Plan: Dehydrated on clinical exam. Started on gentle IV hydration. (9) CKD (chronic kidney disease) stage 4, GFR 15-29 ml/min: Assessment and Plan: Baseline Cr is 2.0, serum creatinine worsening and now 2.7 started on IV hydration and monitor Cr, UO closely (10) CAD (coronary artery disease): Assessment and Plan: Recent PCI. Stent placed in 06/08. On ASA, Plavix. Qualifiers: Coronary Disease-Associated Artery/Lesion type: [place] artery [place] vs. transplanted heart: [place] heart Associated angina: without angina Qualified Code(s): I25.10 - Atherosclerotic heart disease of [place] coronary artery without angina pectoris (11) Hypertension: Assessment and Plan: Stable BP. c/w home medications Qualifiers: Hypertension type: primary hypertension Qualified Code(s): I10 - Essential (primary) hypertension (12) COPD (chronic obstructive pulmonary disease): Assessment and Plan: No active wheezing. Stable. C/w home medications Qualifiers: COPD type: unspecified COPD Qualified Code(s): J44.9 - Chronic obstructive pulmonary disease, unspecified (13) Paroxysmal A-fib: Assessment and Plan: In NSR. C/w Coreg and Eliquis (14) HLD (hyperlipidemia): Assessment and Plan: On Lipitor for CAD. Hold due to transaminitis. Qualifiers: Hyperlipidemia type: unspecified Qualified Code(s): E78.5 - Hyperlipidemia, unspecified Plan Worsening VIKY, persistent Transaminitis. C/w IV hydration. Repeat CMP at 3 pm. Internal Medicine - PN: Subj Subjective Interval history: Seen and examined. No overnight events. No active complaints except for in termittent confusion Exam Constitutional Vital Signs, click to edit/add: Last Vital Signs Temp 97.4 F L 11/10/24 06:00 Pulse 78 11/10/24 06:00 Resp 18 11/10/24 06:00 BP 105/66 11/10/24 06:00 Pulse Ox 100 11/10/24 11:02 O2 Del Method Nasal Cannula 11/10/24 11:02 O2 Flow Rate 2 11/10/24 11:02 General appearance: cooperative, comfortable and ill appearing Respiratory Common normals: normal respiratory effort, no use of accessory muscles and clear to auscultation bilaterally Effort & inspection: able to speak in complete sentences Cardio Common normals: regular rate, regular rhythm, S1 normal heart sound and S2 normal heart sound GI Common normals: Normal to inspection, nondistended, normoactive bowel sounds present, non-tender and no hepatosplenomegaly Extremity Common normals: normal to inspection and full ROM Neuro Common normals: oriented x3, moves all extremities and no focal motor deficits Gait (neuro): ataxic Motor exam: strength 5/5 throughout Coordination: [id number] test normal Psych Common normals: denies homicidal ideation and denies suicidal ideation Other: AAOX 3 but confused and does not seem to have good drasp of reality and seemed confused overall Internal Medicine - PN: Obj Da Labs Labs: Laboratory Results - last 24 hr 11/09/24 11/09/24 11/09/24 11:46 14:17 16:08 WBC RBC Hgb Hct MCV MCH MCHC RDW Plt Count MPV Neut % (Auto) Lymph % (Auto) [place] % (Auto) Eos % (Auto) Baso % (Auto) Neut # (Auto) Lymph # (Auto) [place] # (Auto) Eos # (Auto) Baso # (Auto) Abs Immat Gran (auto) Imm/Tot Granulo (auto) Sodium 133 L Potassium 3.9 Chloride 98 Carbon Dioxide 26.5 Anion Gap 12.4 BUN 39.0 H Creatinine 2.72 H Est GFR ( Amer) 28 L Est GFR (Non-Af Amer) 23 L BUN/Creatinine Ratio 14.3 Glucose 107 H Calcium 9.3 Total Bilirubin 1.6 H AST 360 H ALT 384 H Alkaline Phosphatase 329 H Total Protein 6.4 Albumin 2.3 L Globulin 4.1 Albumin/Globulin Ratio 0.6 POC Glucose 124 H 134 H 11/09/24 11/10/24 21:34 05:44 WBC 7.9 RBC 4.22 L Hgb 9.7 L Hct 32.8 L MCV 77.7 L MCH 23.0 L MCHC 29.6 L RDW 17.3 H Plt Count 231 MPV 9.1 L Neut % (Auto) 68.3 Lymph % (Auto) 18.3 L [place] % (Auto) 11.5 Eos % (Auto) 0.6 L Baso % (Auto) 0.8 Neut # (Auto) 5.4 Lymph # (Auto) 1.4 [place] # (Auto) 0.9 H Eos # (Auto) 0.1 Baso # (Auto) 0.1 Abs Immat Gran (auto) 0.04 H Imm/Tot Granulo (auto) 0.5 Sodium 134 L Potassium 3.7 Chloride 99 Carbon Dioxide 27.9 Anion Gap 10.8 BUN 41.0 H Creatinine 2.78 H Est GFR ( Amer) 27 L Est GFR (Non-Af Amer) 23 L BUN/Creatinine Ratio 14.7 Glucose 98 Calcium 9.4 Total Bilirubin 1.5 H AST 337 H ALT 413 H Alkaline Phosphatase 359 H Total Protein 6.3 L Albumin 2.3 L Globulin 4.0 Albumin/Globulin Ratio 0.6 POC Glucose 114 H
[2024-11-10 11:35] LABS: Glucometer 114 mg/dL (74-106)
[2024-11-10 13:24] VITALS: BP 120/79; PULSE 82; TEMP 36.4; O2SAT 98
[2024-11-10 15:27] LABS: Alanine Aminotransferase 378 U/L (16-63); Albumin Globulin Ratio 0.6; Albumin Level 2.3 g/dL (3.4-5.0); Alkaline Phosphatase 351 U/L (46-116); Anion Gap 11.8; Aspartate Amino Transferase 285 U/L (15-37); BUN Creatinine Ratio 15.5; Bilirubin Total 1.4 mg/dL (0.2-1.0); Calcium 9.2 mg/dL (8.5-10.1); Carbon Dioxide 25.9 mmol/L (21.0-32.0); Chloride 99 mmol/L (98-107); Estimated GFR (African America 28 (>=60 mL/min/1.73m^2); Estimated GFR (Non-African Ame 23 (>=60 mL/min/1.73m^2); Globulin 4.1 g/dL; Glucose 96 mg/dL (74-106); Potassium 3.7 mmol/L (3.5-5.1); Sodium 133 mmol/L (136-145); Total Protein 6.4 g/dL (6.4-8.2)
[2024-11-10 19:30] VITALS: BP 113/76; PULSE 85; TEMP 36.2; O2SAT 97
[2024-11-10 19:35] LABS: Glucometer 131 mg/dL (74-106)
[2024-11-10 20:08] VITALS: O2SAT 95
[2024-11-10] MEDS: NORTRIPTYLINE HCL 25 MG CAPSULE 50 MG PO (21:44)
[2024-11-10] MEDS: TRAZODONE HCL 50 MG TABLET 25 MG PO (22:45)
[2024-11-11] MEDS: 0.9 % SODIUM CHLORIDE 1,000 ML 100 ML IV (03:42)
[2024-11-11 06:00] VITALS: BP 117/76; PULSE 79; TEMP 36; O2SAT 96
[2024-11-11 06:00] LABS: Basophils Absolute Auto 0.1 10^3/uL (0.0-0.1); Basophils Percent Auto 0.8 % (0.2-2.0); Eosinophils Absolute Auto 0.1 10^3/uL (0.0-0.7); Eosinophils Percent Auto 0.9 % (0.9-7.0); Hematocrit 32.6 % (42.0-54.0); Hemoglobin 9.7 g/dL (14.0-18.0); Immature Granulocytes Abs Auto 0.03 10^3/uL (0.00-0.03); Immature Granulocytes Pct Auto 0.4 % (0.0-0.5); Lymphocytes Absolute Auto 1.2 10^3/uL (1.2-3.8); Lymphocytes Percent Auto 15.7 % (20.5-60.0); Mean Corpuscular HGB Conc 29.8 g/dL (29.9-35.2); Mean Corpuscular Volume 77.4 fL (80.0-94.0); Mean Platelet Volume 9.2 fL (9.5-13.5); Monocytes Absolute Auto 0.8 10^3/uL (0.3-0.8); Neutrophils Absolute Auto 5.3 10^3/uL (1.4-6.5); Neutrophils Percent Auto 71.2 % (43.0-75.0); Platelet Count 226 10^3/uL (150-450); Red Blood Count 4.21 10^6/uL (4.70-6.10); Red Cell Distribution Width 17.2 % (11.0-15.0); White Blood Count 7.5 10^3/uL (4.0-11.0)
[2024-11-11 06:20] LABS: Alanine Aminotransferase 315 U/L (16-63); Albumin Globulin Ratio 0.6; Albumin Level 2.2 g/dL (3.4-5.0); Alkaline Phosphatase 319 U/L (46-116); Anion Gap 11.8; Aspartate Amino Transferase 187 U/L (15-37); BUN Creatinine Ratio 16.3; Bilirubin Total 1.2 mg/dL (0.2-1.0); Calcium 9.2 mg/dL (8.5-10.1); Carbon Dioxide 24.8 mmol/L (21.0-32.0); Chloride 100 mmol/L (98-107); Estimated GFR (African America 29 (>=60 mL/min/1.73m^2); Estimated GFR (Non-African Ame 24 (>=60 mL/min/1.73m^2); Glucose 98 mg/dL (74-106); Potassium 3.6 mmol/L (3.5-5.1); Sodium 133 mmol/L (136-145); Total Protein 6.2 g/dL (6.4-8.2)
--- NOTE | 2024-11-11 06:33 | CA_ITS ---
Patient Name: CHAR ALATORRE MR#: [id number] : 1950 Exam Date: 11/11/2024 Ordering Doctor: DR SIGIFREDO PAYTON . ECHOCARDIOGRAM REPORT PROCEDURE: CA ECHO LIMITED INDICATIONS: chf COMPARISON: None. DESCRIPTION: Limited ECHOCARDIOGRAM Real-time transthoracic echocardiography with 2D and M-mode performed. QUALITY: Technical quality was good. LEFT VENTRICLE: Normal chamber size. Mild eccentric left ventricular hypertrophy. There is diffuse global hypokinesis. LV EF: Visual estimation of left ventricular ejection fraction is severely reduced at 20-25%. This is changed from previous exam of 05/13/24 with an EF of 35-40%. DIASTOLIC: ATRIAL SEPTUM: LEFT ATRIUM: Severe dilatation. RIGHT ATRIUM: Moderate dilatation. RIGHT VENTRICLE: Normal chamber size. Borderline right ventricular systolic function. TRICUSPID VALVE: Normal mobility and thickness. MITRAL VALVE: Mildly thickened with normal mobility. AORTIC VALVE: Normal trileaflet appearance. Moderately to severely calcified aortic valve with reduced mobility. AORTIC ROOT: Normal diameter and appearance. PULMONIC VALVE: Normal thickness and mobility. PERICARDIUM: Trivial pericardial effusion. IVC: Normal size measuring 2.1 cm with no collapse. PLEURA: CONCLUSION: 1. The left ventricle exhibits mild eccentric hypertrophy with diffuse global hypokinesis. Estimated LVEF is severely reduced at 20 to 25%. 2. Normal right ventricular size with borderline systolic function. 3. Moderate severe biatrial dilatation. 4. Heavily calcified aortic valve with reduced mobility. 5. Limited study performed with no Doppler interrogation as requested. Adult Echocardiography Procedure Report Left Ventricle LVEDD (3.7 - 5.6 cm): 5.62 cm LVESD (2.2 - 4.0 cm): 4.70 cm LVIVS thickness (0.6 - 1.2 cm): 1.21 cm LVPW thickness (0.5 - 1.0 cm): 1.25 cm LVOT Diameter 2.34 cm Left Ventricular Ejection Fraction: 20-25 % Left Atrium LA Volume Index (2D A2C): 61.53 ml/m2 Left Atrium Systolic Dimension: 4.26 cm Mitral Valve Right Ventricle RV Internal Diastolic Dimension: 3.87 cm Aorta AO Root Diam: 3.69 cm Ascending Ao Diam: 3.26 cm Aortic Valve Tricuspid Valve Pulmonic Valve Right Atrium Right Atrium Systolic Pressure: 63.40 ml, 63.40 ml Dictated by: Chase Sotelo M.D. on 11/11/2024 at 17:35 Approved by: Chase Sotelo M.D. on 11/11/2024 at 17:40
[2024-11-11 06:54] LABS: Troponin I High Sensitivity 57.4 pg/mL (4.0-76.1)
[2024-11-11 07:00] LABS: Thyroid Stimulating Hormone 3.506 uIU/mL (0.358-3.740)
[2024-11-11] MEDS: CHOLECALCIFEROL (VITAMIN D3) 25 MCG/1,000 UNITS TABLET 50 MCG PO (08:52)
[2024-11-11] MEDS: APIXABAN 5 MG TABLET PO ×2 (08:52→21:21)
[2024-11-11] MEDS: CLOPIDOGREL BISULFATE 75 MG TABLET PO (08:52)
[2024-11-11] MEDS: ATORVASTATIN CALCIUM 40 MG TABLET PO (08:52)
[2024-11-11] MEDS: CARVEDILOL 3.125 MG TABLET PO ×2 (08:52→21:21)
--- NOTE | 2024-11-11 09:19 | CM.NOTE ---
Rounds made with Dr. Aggarwal, discussed with pt possible discharge to home today with services if pt does well with PT.
--- NOTE | 2024-11-11 09:19 | CM.NOTE ---
Pt's came after Dr. Aggarwal finished rounding and requesting to speak with Dr. Aggarwal. [place] txt sent to Dr. Aggarwal, he will speak with after his meeting this AM.
--- NOTE | 2024-11-11 09:27 | CM.NOTE ---
Important message From Medicare discussed with pt and , both verbalizes understanding and signs paper for pt. Original given to pt and copy placed on pt's chart.
--- NOTE | 2024-11-11 10:08 | P.DS_ITS ---
DS: Providers Provider Date of admission: 11/09/24 13:17 Primary care physician: JUSTIN OCHOA Consults: 11/07/24 16:41 Occupational Therapy Eval and Treat Routine Reason for consultation: Ambulatory dysfunction/weakness Physical Therapy Eval and Treat Routine Reason for consultation: Ambulatory dysfunction/weakness 11/08/24 10:07 Consult to TeleNeurology Routine Reason for consultation: Confusion DS: Diagnosis Discharge Diagnosis (1) VIKY (acute kidney injury): (2) Transaminitis: (3) Fall: Qualifiers: Encounter type: subsequent encounter Qualified Code(s): W19.XXXD - Unspecified fall, subsequent encounter (4) Generalized weakness: (5) Head injury: Qualifiers: Encounter type: subsequent encounter Qualified Code(s): S09.90XD - Unspecified injury of head, subsequent encounter (6) Confusion and disorientation: (7) Chronic respiratory failure with hypoxia: (8) HFrEF (heart failure with reduced ejection fraction): (9) CKD (chronic kidney disease) stage 4, GFR 15-29 ml/min: (10) CAD (coronary artery disease): Qualifiers: Coronary Disease-Associated Artery/Lesion type: [place] artery [place] vs. transplanted heart: [place] heart Associated angina: without angina Qualified Code(s): I25.10 - Atherosclerotic heart disease of [place] coronary artery without angina pectoris (11) Hypertension: Qualifiers: Hypertension type: primary hypertension Qualified Code(s): I10 - Essential (primary) hypertension (12) COPD (chronic obstructive pulmonary disease): Qualifiers: COPD type: unspecified COPD Qualified Code(s): J44.9 - Chronic obstructive pulmonary disease, unspecified (13) Paroxysmal A-fib: (14) HLD (hyperlipidemia): Qualifiers: Hyperlipidemia type: unspecified Qualified Code(s): E78.5 - Hyperlipidemia, unspecified Plan (1) VIKY (acute kidney injury): Assessment and Plan: Cr 2.6 on admission. Gradually worsening despite the fact that he was given IVF bolus. Started on IVF 100/hr. Monitor UO, serum Cr closely. CMP at 3 pm ordered. (2) Transaminitis: Assessment and Plan: AST/ALT -98/138 --> gradually worsening - 375/374 on 11/09/24 --> stil elevated today but no worsening noted. No abdominal pain/GI symptioms US shows cholelithiasis but no evidence of cholecystitis Lipitor/Tylenol on hold. Unclear etiology - could be due to dehydration ? started on IV hydration (3) Fall: Assessment and Plan: Mechanical fall. No acute injury. CTH - no acute finding. PT/OT eval Qualifiers: Encounter type: subsequent encounter Qualified Code(s): W19.XXXD - Unspecified fall, subsequent encounter (4) Generalized weakness: Assessment and Plan: Unsteady and unstable on his feet. Needing a walker. Did not need walker at home. C/w PT rx. (5) Head injury: Assessment and Plan: No acute finding on CTH. Qualifiers: Encounter type: subsequent encounter Qualified Code(s): S09.90XD - Unspecified injury of head, subsequent encounter (6) Confusion and disorientation: Assessment and Plan: Unclear etiology. No acute metabolic/infectious etiology. MRI brain - no acute finding. Normal B12, folate. Likely progressive dementia. Mental status waxes and wanes. Will need outpatient f/u and work up. (7) Chronic respiratory failure with hypoxia: Assessment and Plan: On 2 L O2 via NC. (8) HFrEF (heart failure with reduced ejection fraction): Assessment and Plan: Dehydrated on clinical exam. Started on gentle IV hydration. (9) CKD (chronic kidney disease) stage 4, GFR 15-29 ml/min: Assessment and Plan: Baseline Cr is 2.0, serum creatinine worsening and now 2.7 started on IV hydration and monitor Cr, UO closely (10) CAD (coronary artery disease): Assessment and Plan: Recent PCI. Stent placed in 06/08. On ASA, Plavix. Qualifiers: Coronary Disease-Associated Artery/Lesion type: [place] artery [place] vs. transplanted heart: [place] heart Associated angina: without angina Qualified Code(s): I25.10 - Atherosclerotic heart disease of [place] coronary a rtery without angina pectoris (11) Hypertension: Assessment and Plan: Stable BP. c/w home medications Qualifiers: Hypertension type: primary hypertension Qualified Code(s): I10 - Essential (primary) hypertension (12) COPD (chronic obstructive pulmonary disease): Assessment and Plan: No active wheezing. Stable. C/w home medications Qualifiers: COPD type: unspecified COPD Qualified Code(s): J44.9 - Chronic obstructive pulmonary disease, unspecified (13) Paroxysmal A-fib: Assessment and Plan: In NSR. C/w Coreg and Eliquis (14) HLD (hyperlipidemia): Assessment and Plan: On Lipitor for CAD. Hold due to transaminitis. Qualifiers: Hyperlipidemia type: unspecified Qualified Code(s): E78.5 - Hyperlipidemia, unspecified DS: Summary Time Spent with Patient Time attestation: Total time spent providing and/or coordinating discharge services: Exam Constitutional Vital Signs, click to edit/add: Last Vital Signs Temp 96.8 F L 11/11/24 06:00 Pulse 79 11/11/24 06:00 Resp 18 11/10/24 19:30 BP 117/76 11/11/24 06:00 Pulse Ox 96 11/11/24 06:00 O2 Del Method Nasal Cannula 11/11/24 06:00 O2 Flow Rate 2 11/11/24 06:00 DS: Data Data Completed and Pending Labs on day of discharge: Labs from last 24 hours 11/11/24 11/10/24 11/10/24 05:41 19:33 15:04 WBC 7.5 RBC 4.21 L Hgb 9.7 L Hct 32.6 L MCV 77.4 L MCH 23.0 L MCHC 29.8 L RDW 17.2 H Plt Count 226 MPV 9.2 L Neut % (Auto) 71.2 Lymph % (Auto) 15.7 L [place] % (Auto) 11.0 Eos % (Auto) 0.9 Baso % (Auto) 0.8 Neut # (Auto) 5.3 Lymph # (Auto) 1.2 [place] # (Auto) 0.8 Eos # (Auto) 0.1 Baso # (Auto) 0.1 Abs Immat Gran (auto) 0.03 Imm/Tot Granulo (auto) 0.4 Sodium 133 L 133 L Potassium 3.6 3.7 Chloride 100 99 Carbon Dioxide 24.8 25.9 Anion Gap 11.8 11.8 BUN 43.0 H 42.0 H Creatinine 2.64 H 2.71 H Est GFR ( Amer) 29 L 28 L Est GFR (Non-Af Amer) 24 L 23 L BUN/Creatinine Ratio 16.3 15.5 Glucose 98 96 Calcium 9.2 9.2 Total Bilirubin 1.2 H 1.4 H AST 187 H 285 H ALT 315 H 378 H Alkaline Phosphatase 319 H 351 H Troponin I High Sens 57.4 NT-Pro-B Natriuret Pep 33434.0 H* Total Protein 6.2 L 6.4 Albumin 2.2 L 2.3 L Globulin 4.0 4.1 Albumin/Globulin Ratio 0.6 0.6 TSH 3.506 Thyroxine (T4) 5.20 POC Glucose 131 H 11/10/24 11:34 WBC RBC Hgb Hct MCV MCH MCHC RDW Plt Count MPV Neut % (Auto) Lymph % (Auto) [place] % (Auto) Eos % (Auto) Baso % (Auto) Neut # (Auto) Lymph # (Auto) [place] # (Auto) Eos # (Auto) Baso # (Auto) Abs Immat Gran (auto) Imm/Tot Granulo (auto) Sodium Potassium Chloride Carbon Dioxide Anion Gap BUN Creatinine Est GFR ( Amer) Est GFR (Non-Af Amer) BUN/Creatinine Ratio Glucose Calcium Total Bilirubin AST ALT Alkaline Phosphatase Troponin I High Sens NT-Pro-B Natriuret Pep Total Protein Albumin Globulin Albumin/Globulin Ratio TSH Thyroxine (T4) POC Glucose 114 H Discharge Plan Discharge Discharge Medications: No Action Eliquis 5 mg tablet 5 mg PO BID atorvastatin 40 mg tablet 40 mg PO DAILY nortriptyline 25 mg capsule 50 mg PO .QHS ergocalciferol (vitamin D2) 1,000 unit capsule 50 mcg PO DAILY Patient Comments: 2000IU daily clopidogrel 75 mg tablet 75 mg PO DAILY carvedilol 3.125 mg tablet 3.125 mg PO Q12H ferrous sulfate 325 mg (65 mg iron) tablet 325 mg PO DAILY Jardiance 10 mg tablet 10 mg PO DAILY cyanocobalamin (vitamin B-12) 1,000 mcg/mL solution 1,000 mcg IM .monthly Citrucel 500 mg tablet 2 g PO DAILY furosemide 40 mg tablet 40 mg PO DAILY Print Language: Palestinian Follow Up Appointments: Follow up with Dr. Ochoa on 11/14/24 at 1:15pm, phone number is [phone]
--- NOTE | 2024-11-11 10:52 | PT.DAILY ---
Physical Therapy Daily Note PT Daily Note/Assess Start: 11/09/24 10:20 Freq: Status: Active Protocol: Document 11/11/24 10:35 FAWAD (Rec: 11/11/24 10:52 FAWAD [id number]) Physical Therapy Daily Note/Assessment Time In/Time Out Time In 10:09 Time Out 10:34 Pain In Pain N/A Pain Out Pain N/A Subjective Subjective Pt supine upon arrival. Agrees to PT. Denies pain currently. and friend are present. Therapeutic Exercise Time Therapeutic Exercise 5 Minutes (minutes) Therapeutic Exercise 0 Units Therapeutic Exercise Treatment Therapeutic Exercise Pt instructed to perform bilat LE strengthening ex 10x Treatment ea while sitting at EOB unsupported - will need occ UE support to maintain sitting balance. Therapeutic Activity Time Therapeutic Activity 18 Minutes (minutes) Therapeutic Activity 2 Units Therapeutic Activity Treatment Bed Mobility Ability Minimum Assist Chair Transfer Contact Guard Assist Ability Therapeutic Activity Supine>sit with [place] to advance upper body to sit at Comments EOB. Pt sits EOB 5 min to perform bilat LE strengthening ex with occ UE support to maintain seated balance - due to core weakness. Sit>stand CGA for safety Portable 6 step is brought to Pts room to simulate home stair negotiation. Pt is able to step up/down 6 step 5x with bilat UE support and CGA. Pt is able to step up/down 6 step with 1 UE support on RW and [employer] in other 5x. Pt is unable to perform stair training without UE support due to safety concerns/apprehension. Pt does not have handrails on stairway at home and lives in split level home. Pts stairway is too narrow to have another person ascend/descend steps next to him . This is my main safety concern at this time. Pt amb in room 80' with RW, SBA with assist for IV lines/O2 lines. Cues to slow down on turns to avoid tangling of O2 lines. Pt typically does not use RW at home but will be using one at DC per she ordered one. Total Physical Therapy Time Total Therapy 23 Minutes Total Physical 2 Therapy Units Summary Daily Note Summary Improved gait endurance and stability. Stair negotiation requires bilat UE support and/or CGA from another. At this time I would recommend SNF vs HHC to improve overall strength and balance. Pt lives in split level home which would make return to home difficult. House is not currently equipped with proper assistive devices to allow for pt to be ind/safe to return home.
[2024-11-11 10:56] VITALS: O2SAT 99
[2024-11-11 11:08] LABS: HBsAg Screen Negative (Negative); HCV Ab Non Reactive (Non Reactive); Hep A Ab, IgM Negative (Negative); Hep B Core Ab, IgM Negative (Negative)
--- NOTE | 2024-11-11 11:20 | P.PN_ITS ---
Progress Note: Subjective Subjective Interval history: Patient does state he feels better today, still has significant weakness with any ambulation. Only able to make short trips without significant weakness and needing to rest, this to be less than 6 feet Exam Constitutional Vital Signs, click to edit/add: Last Vital Signs Temp 96.8 F L 11/11/24 06:00 Pulse 79 11/11/24 06:00 Resp 20 11/11/24 10:56 BP 117/76 11/11/24 06:00 Pulse Ox 99 11/11/24 10:56 O2 Del Method Nasal Cannula 11/11/24 10:56 O2 Flow Rate 2 11/11/24 10:56 Documenting provider has reviewed patient's vital signs: yes Common normals: no apparent distress (At rest) Respiratory Common normals: normal respiratory effort and no retractions Cardio Common normals: regular rate and regular rhythm GI Common normals: Normal to inspection, nondistended, normoactive bowel sounds present and soft to palpation Extremity Common normals: normal to inspection, full ROM, normal capillary refill and no clubbing, cyanosis or edema Progress Note: Objective Labs Labs: Short CBC 11/11/24 Range/Units 05:41 WBC 7.5 (4.0-11.0) 10^3/uL Hgb 9.7 L (14.0-18.0) g/dL Hct 32.6 L (42.0-54.0) % Plt Count 226 (150-450) 10^3/uL BMP 11/10/24 11/11/24 15:04 05:41 Sodium 133 L 133 L Potassium 3.7 3.6 Chloride 99 100 Carbon Dioxide 25.9 24.8 BUN 42.0 H 43.0 H Creatinine 2.71 H 2.64 H Glucose 96 98 Calcium 9.2 9.2 Liver Function 11/10/24 11/11/24 Range/Units 15:04 05:41 Total Bilirubin 1.4 H 1.2 H (0.2-1.0) mg/dL AST 285 H 187 H (15-37) U/L ALT 378 H 315 H (16-63) U/L Alkaline Phosphatase 351 H 319 H (46-116) U/L Albumin 2.3 L 2.2 L (3.4-5.0) g/dL Progress Note: A&P Assessment and Plan (1) VIKY (acute kidney injury): (2) Transaminitis: (3) Fall: Qualifiers: Encounter type: subsequent encounter Qualified Code(s): W19.XXXD - Unspecified fall, subsequent encounter (4) Generalized weakness: (5) Head injury: Qualifiers: Encounter type: subsequent encounter Qualified Code(s): S09.90XD - Unspecified injury of head, subsequent encounter (6) Confusion and disorientation: (7) Chronic respiratory failure with hypoxia: (8) HFrEF (heart failure with reduced ejection fraction): (9) CKD (chronic kidney disease) stage 4, GFR 15-29 ml/min: (10) CAD (coronary artery disease): Qualifiers: Coronary Disease-Associated Artery/Lesion type: [place] artery [place] vs. transplanted heart: [place] heart Associated angina: without angina Qualified Code(s): I25.10 - Atherosclerotic heart disease of [place] coronary artery without angina pectoris (11) Hypertension: Qualifiers: Hypertension type: primary hypertension Qualified Code(s): I10 - Essential (primary) hypertension (12) COPD (chronic obstructive pulmonary disease): Qualifiers: COPD type: unspecified COPD Qualified Code(s): J44.9 - Chronic obstructive pulmonary disease, unspecified (13) Paroxysmal A-fib: (14) HLD (hyperlipidemia): Qualifiers: Hyperlipidemia type: unspecified Qualified Code(s): E78.5 - Hyperlipidemia, unspecified Plan Fall with significant weakness-physical therapy to work with patient today, not stable for discharge to home, requiring rehabilitation for patient safety. Acute elevation in creatinine, 140% above baseline-improved today, but not back to baseline-patient need of IV fluid resuscitation from persisting Transaminitis: Elevated today but improved, no abdominal tenderness Generalized weakness: Likely related to the acute kidney injury and dehydration, but not improving as would expect this is dehydration has improved, need to rehabilitation Head injury: MRI brain normal Confusion and disorientation: MRI normal, good this morning but has still having periods where he is confused Chronic respiratory failure with hypoxia: Maintain current oxygenation HFrEF (heart failure with reduced ejection fraction): Repeat echocardiogram to determine deterioration last echocardiogram 6 months ago, possible decreased cardiac output affecting cerebral flow and affecting altered mental status CKD (chronic kidney disease) stage 4, GFR 15-29 ml/min:-Continue to monitor daily as outlined above CAD (coronary artery disease): Currently without chest pain Hypertension: Stable, continue current medications COPD (chronic obstructive pulmonary disease): Stable continue current medications Paroxysmal A-fib: Good rate control HLD (hyperlipidemia): Continue with current medications Hyponatremia-stable, continue to follow Elevated BNP-this is likely related to his kidney function-is improved today Admission status: Medically necessary treatment, IV hydration, at a reduced rate secondary to chronic combined congestive heart failure, will last more than 2 midnights. Inpatient status. Urinary Catheter Management Urinary Catheter Management Straight: Cath placed during this visit: yes Urethral indwelling: Yes Reason for continuing: measure accurate output Insertion date: 11/11/24 Insertion time: 03:15
--- NOTE | 2024-11-11 13:22 | CM.NOTE ---
Discussed with pt's PT assessment and recommendations, and verbalize choice for skilled therapy would be [facility]). Case Management report, physician orders, face sheet sent to [facility] for new referral.
[2024-11-11 14:01] VITALS: BP 106/74; PULSE 84; TEMP 36.3; O2SAT 92
--- NOTE | 2024-11-11 14:04 | SWNOTE1 ---
SW spoke to Tamra in case management and would like the [facility] for rehab. Referral has been sent to [facility].
[2024-11-11 18:55] VITALS: O2SAT 93
[2024-11-11 19:57] VITALS: BP 116/77; PULSE 90; TEMP 36.4; O2SAT 92
[2024-11-11 21:05] LABS: Glucometer 109 mg/dL (74-106)
[2024-11-11] MEDS: NORTRIPTYLINE HCL 25 MG CAPSULE 50 MG PO (21:21)
[2024-11-12 03:59] VITALS: BP 98/67; PULSE 82; TEMP 36.6; O2SAT 90
[2024-11-12 05:43] LABS: Basophils Absolute Auto 0.1 10^3/uL (0.0-0.1); Basophils Percent Auto 0.6 % (0.2-2.0); Eosinophils Percent Auto 0.2 % (0.9-7.0); Hematocrit 33.2 % (42.0-54.0); Hemoglobin 9.8 g/dL (14.0-18.0); Immature Granulocytes Abs Auto 0.03 10^3/uL (0.00-0.03); Immature Granulocytes Pct Auto 0.4 % (0.0-0.5); Lymphocytes Absolute Auto 1.1 10^3/uL (1.2-3.8); Lymphocytes Percent Auto 13.8 % (20.5-60.0); Mean Corpuscular HGB Conc 29.5 g/dL (29.9-35.2); Mean Corpuscular Hemoglobin 22.9 pg (25.9-34.0); Mean Corpuscular Volume 77.6 fL (80.0-94.0); Mean Platelet Volume 9.1 fL (9.5-13.5); Monocytes Absolute Auto 0.9 10^3/uL (0.3-0.8); Monocytes Percent Auto 10.6 % (1.7-12.0); Neutrophils Percent Auto 74.4 % (43.0-75.0); Platelet Count 228 10^3/uL (150-450); Red Blood Count 4.28 10^6/uL (4.70-6.10); Red Cell Distribution Width 17.2 % (11.0-15.0); White Blood Count 8.1 10^3/uL (4.0-11.0)
[2024-11-12 06:04] LABS: Alanine Aminotransferase 279 U/L (16-63); Albumin Globulin Ratio 0.6; Albumin Level 2.3 g/dL (3.4-5.0); Alkaline Phosphatase 313 U/L (46-116); Aspartate Amino Transferase 152 U/L (15-37); BUN Creatinine Ratio 13.8; Bilirubin Total 1.3 mg/dL (0.2-1.0); Calcium 9.6 mg/dL (8.5-10.1); Carbon Dioxide 23.7 mmol/L (21.0-32.0); Chloride 101 mmol/L (98-107); Estimated GFR (African America 27 (>=60 mL/min/1.73m^2); Estimated GFR (Non-African Ame 22 (>=60 mL/min/1.73m^2); Globulin 3.9 g/dL; Glucose 106 mg/dL (74-106); Potassium 3.7 mmol/L (3.5-5.1); Sodium 132 mmol/L (136-145); Total Protein 6.2 g/dL (6.4-8.2)
--- OUTSIDE RECORDS SUMMARY | 2024-11-12 07:31 | XMS_ITS | CCD ---
Author Organization [facility] CliniSyri Care Team Providers Care Co Founder And Ceo Name Role Phone JUAN, DR ANDERSON Primary [...] Unavailable MD Justin Martinez Primary Care Provider [phone] MD Magy Cummings Attending Provider Justin Martinez MD Unavailable Justin Martinez MD Primary Care Provider uJstin Martinez MD Primary Care Provider [phone] Magy Cummings MD Attending Provider Viji MARTINEZ, Mary Tyler Other Provider Arturo Le MD Emergency Provider Joel De La Paz DO Emergency Provider [phone] Geoff Swann DO Admit Provider Geoff Swann DO Attending Provider JUAN, RUGEN M Attending Unavailable JUAN, RUGEN M Attending Unavailable JUAN, RUGEN M Referring Unavailable JUAN, RUGEN M Attending Unavailable JUAN, RUGEN M Attending Unavailable JUAN, RUGEN M Attending Unavailable JUAN, RUGEN M Attending Unavailable Phil MARTINEZ, Donna Sawyer Referring Provider Trav Anand MD Attending Provider [place], Rugen M Primary Care Unavailable Emiliano, Amgy Admitting Unavailable Emiliano, Magy Attending Unavailable Emiliano, Magy Attending Unavailable Emiliano, Magy Admitting Unavailable Juan, Rugen M Primary Care Unavailable Emiliano, Magy Attending Unavailable Emiliano, Magy Admitting Unavailable [place], Rugen M Primary Care Unavailable NON STAFF Referring Unavailable Mary Hallman Consulting Unavailable Emiliano, Magy Attending Unavailable Emiliano, Magy Admitting Unavailable Juan, Rugen M Primary Care Unavailable Arturo Le Admitting Unavailable Arturo Le Attending Unavailable [place], Rugen M Primary Care Unavailable [place], Rugen M Primary Care Unavailable Canelo Teran Referring Unavailable Prashant Mosqueda Admitting Unavailable Prashant Mosqueda Attending Unavailable Geoff Swann Admitting Unavailable Geoff Swann Attending Unavailable Juan, Rugen M Primary Care Unavailable Juan, Rugen M Primary Care Unavailable Emiliaon, Magy Admitting Unavailable Emiliano, Magy Attending Unavailable Medications Current Medications Medication Drug [...] 3 and CKD stage 4 (HCC) (CMS/HCC) , CKD stage 3b, GFR 30-44 ml/min ([facility]/HCC) , Anemia in other chronic diseases classified [...] 0 Refills: 0 Ordered: 01-Jun-2022 DO Active Qmpmplytjxt-Ebkbhezrf-Omshhr (Trelegy Ellipta) 200-62.5-25 MCG/ACT aerosol powder (2 sources) Start: 03-25-2024 End: 06-04-2024 take 1 puff(s) by inhalation once daily Koiachkpmjg-Agonukewq-Orwidn (Trelegy Ellipta) 200-62.5-25 MCG/ACT aerosol powder Indications: [...] once daily Vitamin D (Cholecalciferol) 50 MCG (2000 UT) 1 capsule Orally Once a day [...] day Active take 2 tablets by mo uth every twenty-four hours Aspirin 81 MG 2 [...] 0 Refills: 0 Ordered: 01-Jun-2022 DO Active Vnrswdfsadj-Zjiykryxv-Owpdbs er (10 sources) Start: 02-22-2024 End: 06-06-2024 Cgcmrksdefk-Wtspaycld-Qabbyb er (Trelegy Ellipta) 200-62.5-25 mcg blister with device Discontinued 1 INH INHALATION Daily February 21, 2024 11:00pm June 06, 2024 10:34am Start: 02-22-2024 End: 06-06-2024 Dimhaivbbov-Wokajxmnh-Kxscxy er (Trelegy Ellipta) 200-62.5-25 mcg blister with [...] FreeTextSi capsule Orally Once a day at [facility]; Note: Source Status: Taking; Provider: Emiliano Bhatti ( ) Start: 01-25-2024 End: 07-03-2024 take 50 mg by mouth once daily at bedtime Nortriptyline Discontinued 50 MG PO Daily at bedtime February 22, 2024 11:27am July 03, 2024 10:47am Start: 11-09-2023 take 1 capsule by mo uth twice daily nortriptyline (Pamelor) 25 MG capsule [...] 01-Oct-2021 Active take 2 capsules by [facility] once daily at bedtime Nortriptyline HCl 25 MG 2 capsule Orally Once a day at [facility] Active potassium chloride 20 meq extended release [...] Coronary atherosclerosis; Translations: [Atherosclerotic heart disease of [place] coronary artery without angina pectoris] Onset: 03-24-2023 [...] [Benign essential hypertension] Onset: 02-04-2021 03-24-2023 Chronic Heart valve disorders (20 sources) Aortic valve [...] gland, unspecified] Onset: 03-24-2023 03-24-2023 Chronic Other lower respiratory disease (1 source) Shortness of breath; Translations: [Shortness of breath] Onset: 10-19-2024 Episodic Other male genital disorders (7 sources) Drug-induced [...] Classification Problem Date Documented Da te Episodic/Chronic Fluid and electrolyte disorders (20 sources) Hypokalemia; Translations: [Hypokalemia] Onset: 03-06-2024 01-28-2024 Episodic Genitourinary symptoms and ill-defined conditions (20 sources) Proteinuria; Translations: [Proteinuria, unspecified] Onset: 02-14-2024 01-25-2024 Episodic Malaise and fatigue (11 sources) Other fatigue; Translations: [Fatigue] Onset: 10-05-2021 Episodic Other aftercare (1 source) halfway (current) use of aspirin; Translations: [[facility] CURRENT USE OF ASPIRIN] Onset: 02-04-2021 Episodic Other aftercare (1 source) Other intermediate frame tender (current) drug therapy; Translations: [[facility] CURRENT DRUG THERAPY] Onset: 02-04-2021 Episodic Other [...] Range Facility A1C with Estimated Average G сергей 10-20-2024 Glucose [Mass/Vol] 88 mg/dL Normal [facility] Comment on above: Result Comment: PERF ORMED BY: [place] [address] PATHOLOGIST [employer] OPER[employer] GRANT SCHNEIDER M.D. Performed By: #### P TH #### [address] HbA1c (Bld) [Mass fraction] 4.7 % Normal 4.3-5.6 [facility] Comment on above: Result Comment: Incr eased risk for diabetes: 5.7 - 6.4 diabetes: >6.4 glycemic control for adults with diabetes: <7.0 Performed By: #### P TH #### [address] Basic Metabolic Panelon 01-0 Anion gap [Moles/Vol] 9.2 mmol/L Normal 6.0-15.0 [facility] Comment on above: Performed By: #### P TH #### [address] Calcium [Mass/Vol] 9.5 mg/dL Normal 8.6-10.3 [facility] Comment on above: Performed By: #### P TH #### [address] Chloride [Moles/Vol] 101 mmol/L Normal 98-107 [facility] Comment on above: Performed By: #### P TH #### [address] CO2 [Moles/Vol] 31.1 mmol/L High 21.0-31.0 [facility] Comment on above: Performed By: #### P TH #### [address] Creatinine [Mass/Vol] 2.13 mg/dL High 0.70-1.30 [facility] Comment on above: Performed By: #### P TH #### [address] Creatinine Clr Calc Pharmacy 34.36 Normal [facility] Comment on above: Performed By: #### P TH #### [address] Estimated GFR 32.274 mL/Min Normal [facility] Comment on above: Performed By: #### P TH #### [address] Glucose [Mass/Vol] 96 mg/dL Normal 70-100 [facility] Comment on above: Result Comment: [place] Glucose Reference Range is dependent on time and content of last meal. Glucose of more than 200 mg/dL in a nonstressed, ambulatory subject supports the diagnosis of Diabetes Mellitus. ADA recommended reference range Performed By: #### P TH #### [facility] [address] Potassium [Moles/Vol] 3.3 mmol/L Low 3.5-5.1 [facility] Comment on above: Performed By: #### P TH #### [facility] [address] Sodium [Moles/Vol] 138 mmol/L Normal 136-145 [facility] Comment on above: Performed By: #### P TH #### [facility] [address] Urea nitrogen [Mass/Vol] 24 mg/dL Normal 7-25 [facility] Comment on above: Performed By: #### P TH #### [facility] [address] Basophils Auto (Bld) [#/Vol] Ordered By: Geoff Swann on 10-20-2024 Basophils (Bld) [#/Vol] Automated basoph il count 0.0-0.2 [facility] Basophils/100 WBC Auto (Bld) Ordered By: Geoff Swann on 10-20-2024 Basophils/100 WBC (Bld) Automated basophil % . [facility] Blood estimated average gluc ose determination by estimation from glycated hemoglobinOrdered By: Geoff Swann on 10-20-2024 Average glucose Estimated from glycated hemoglobin (Bld) [Mass/Vol] Glucose mean value [Mass/volume] in Blood Estimated from glycated hemoglobin [facility] Calcium [Mass/volume] in Ser um or PlasmaOrdered By: Geoff Swann on 10-20-2024 Calcium [Mass/Vol] Calcium [Mass/volume ] in Serum or Plasma 8.6-10.3 [facility] Carbon dioxide, total [Moles /volume] in Serum or PlasmaOrdered By: Geoff Swann on 10-20-2024 CO2 [Moles/Vol] Carbon dioxide, tota l [Moles/volume] in Serum or Plasma High 21.0-31.0 [facility] Chloride [Moles/volume] in S zoey or PlasmaOrdered By: Geoff Swann on 10-20-2024 Chloride [Moles/Vol] Chloride [Moles/volume] in Serum or Plasma 98-107 [facility] Cholesterol [Mass/volume] in Serum or PlasmaOrdered By: Geoff Swann on 10-20-2024 Cholesterol [Mass/Vol] Cholesterol [Mass/volume] in Serum or Plasma Low 140-200 [facility] Comment on above: Chol less than 200 m g/dl low riskChol 201-239 mg/dl borderline riskChol 240 mg/dl and greater high risk Cholesterol in HDL [Mass/vol ume] in Serum or PlasmaOrdered By: Geoff Swann on 10-20-2024 Cholesterol in HDL [Mass/Vol] Serum or plasma high density lipoprotein (HDL) cholesterol measurement 23-92 [facility] Comment on above: HDL CHOL ATP-III CLA SSIFICATION Cardiovascular RiskHDL > or equal to 60 mg/dL LOWHDL < 40 mg/dL HIGH Cholesterol in LDL Calc [Mas s/Vol]Ordered By: Geoff Swann on 10-20-2024 Cholesterol in LDL [Mass/Vol] Cholesterol in LDL [Mass/volume] in Serum or Plasma by calculation 0-100 [facility] Comment on above: LDL ATP III CLASSIFI CATIONLDL less than 100 mg/dL OptimalLDL 100-129 mg/dL Near or above optimalLDL 130-159 mg/dL Borderline highLDL 160-189 mg/dL HighLDL greater than 189 mg/dL Very high Cholesterol in VLDL Calc [Ma ss/Vol]Ordered By: Geoff Swann on 10-20-2024 Cholesterol in VLDL [Mass/Vol] Cholesterol in VLDL [Mass/volume] in Serum or Plasma by calculation [facility] Complete Blood Count Auto Di ffon 10-20-2024 Basophils (Bld) [#/Vol] 0.1 10*3/uL Normal 0.0-0.2 [facility] Comment on above: Result Comment: PERF ORMED BY: [facility] [address] [place] [address] PATHOLOGIST [employer] OPER[employer] GRANT SCHNEIDER M.D. Performed By: #### A DDONUAPLUS #### [facility] [address] [place] [address] [place] Basophils/100 WBC (Bld) 1.0 % Normal . Viraj buitrago [facility] Comment on above: Performed By: #### A DDONUAPLUS #### [place] [address] [place] Eosinophils (Bld) [#/Vol] 0.1 10*3/uL Normal 0.0-0.45 [facility] Comment on above: Performed By: #### A DDONUAPLUS #### [place] [address] [place] Eosinophils/100 WBC (Bld) 1.3 % Normal . [facility] Comment on above: Performed By: #### A DDONUAPLUS #### [place] [address] [place] Erythrocyte distribution width (RBC) [Ratio] 17.5 % High 12.0-14.8 [facility] Comment on above: Performed By: #### A DDONUAPLUS #### [place] [address] [place] Hematocrit (Bld) [Volume fraction] 27.9 % Low 38.8-50.0 [facility] Comment on above: Performed By: #### A DDONUAPLUS #### [place] [address] [place] Hemoglobin (Bld) [Mass/Vol] 9.0 g/dL Low 13.0-17.0 [facility] Comment on above: Performed By: #### A DDONUAPLUS #### [place] [address] [place] Lymphocytes (Bld) [#/Vol] 1.0 10*3/uL Normal 1.00-4.8 [facility] Comment on above: Performed By: #### A DDONUAPLUS #### [place] [address] [place] Lymphocytes/100 WBC (Bld) 20.1 % Normal . [facility] Comment on above: Performed By: #### A DDONUAPLUS #### [address] MCH (RBC) [Entitic mass] 24.2 pg Low 27.5-35.2 [facility] Comment on above: Performed By: #### A DDONUAPLUS #### [address] MCV (RBC) [Entitic vol] 75.2 fL Low 83.5-101 [facility] Comment on above: Performed By: #### A DDONUAPLUS #### [address] Mean Corpuscular HGB Conc 32.2 g/dL Low 32.5-35.6 [facility] Comment on above: Performed By: #### A DDONUAPLUS #### [address] Monocytes (Bld) [#/Vol] 0.5 10*3/uL Normal 0.0-0.8 [facility] Comment on above: Performed By: #### A DDONUAPLUS #### [address] Monocytes/100 WBC (Bld) 10.1 % Normal . [facility] Comment on above: Performed By: #### A DDONUAPLUS #### [address] Neutrophils (Bld) [#/Vol] 3.4 10*3/uL Normal 1.8-7.7 [facility] Comment on above: Performed By: #### A DDONUAPLUS #### [address] Neutrophils/100 WBC (Bld) 67.5 % Normal . [facility] Comment on above: Performed By: #### A DDONUAPLUS #### [address] NRBC% 0.0 /100{WBC} Normal 0-0.5 [facility] Comment on above: Performed By: #### A DDONUAPLUS #### [facility] [address] Platelet mean volume (Bld) [Entitic vol] 6.9 fL Normal 6.6-10.1 [facility] Comment on above: Performed By: #### A DDONUAPLUS #### [facility] [address] Platelets (Bld) [#/Vol] 235 10*3/uL Normal 150-450 [facility] Comment on above: Performed By: #### A DDONUAPLUS #### [address] RBC (Bld) [#/Vol] 3.71 10*6/uL Low 3.90-5.60 [facility] Comment on above: Performed By: #### A DDONUAPLUS #### [address] WBC (Bld) [#/Vol] 5.0 10*3/uL Normal 4.1-10.5 [facility] Comment on above: Performed By: #### A DDONUAPLUS #### [address] Creatinine [Mass/volume] in Serum or PlasmaOrdered By: Geoff Swann on 10-20-2024 Creatinine [Mass/Vol] Creatinine [Mass/volume] in Serum or Plasma High 0.70-1.30 [facility] Eosinophils Auto (Bld) [#/Vo l]Ordered By: Geoff Swann on 10-20-2024 Eosinophils (Bld) [#/Vol] Automated eosinophil count 0.0-0.45 [facility] Eosinophils/100 WBC Auto (Bl d)Ordered By: Geoff Swann on 10-20-2024 Eosinophils/100 WBC (Bld) Automated eosinophil % . [facility] Erythrocyte distribution wid th Auto (RBC) [Ratio]Ordered By: Geoff Swann on 10-20-2024 Erythrocyte distribution width (RBC) [Ratio] Erythrocyte distribution width [Ratio] by Automated count High 12.0-14.8 [facility] Glucose [Mass/volume] in Ser um or PlasmaOrdered By: Geoff Swann on 10-20-2024 Glucose [Mass/Vol] Glucose [Mass/volume ] in Serum or Plasma 70-100 [facility] Comment on above: ADA recommended refe rence rangeRandom Glucose Reference Range is dependent on time and content of last meal. Glucose of more than 200 mg/dL in a nonstressed, ambulatory subject supports the diagnosis of Diabetes Mellitus. Hematocrit Auto (Bld) [Volum e fraction]Ordered By: Geoff Swann on 10-20-2024 Hematocrit (Bld) [Volume fraction] Hematocrit [Volume Fraction] of Blood by Automated count Low 38.8-50.0 [facility] Hemoglobin A1c/Hemoglobin.to shin in BloodOrdered By: Geoff Swann on 10-20-2024 HbA1c (Bld) [Mass fraction] Hemoglobin A1c percentage 4.3-5.6 [facility] Comment on above: Increased risk for d iabetes: 5.7 - 6.4diabetes: >6.4glycemic control for adults with diabetes: <7.0 Hemoglobin [Mass/volume] in BloodOrdered By: Geoff Swann on 10-20-2024 Hemoglobin (Bld) [Mass/Vol] Hemoglobin [Mass/volume] in Blood Low 13.0-17.0 [facility] Leukocytes [#/volume] correc anna for nucleated erythrocytes in Blood by Automated counOrdered By: Geoff Swann on 10-20-2024 WBC corrected for nucl RBC Auto (Bld) [#/Vol] Leukocytes [#/volume] corrected for nucleated erythrocytes in Blood by Automated coun 4.1-10.5 [facility] Lipid Panelon 10-20-2024 Cholesterol [Mass/Vol] 79 mg/dL Low 140-200 [facility] Comment on above: Result Comment: Chol less than 200 mg/dl low risk Chol 201-239 mg/dl borderline risk Chol 240 mg/dl and greater high risk Performed By: #### P TH #### [address] Cholesterol in HDL [Mass/Vol] 26 mg/dL Normal 23-92 [facility] Comment on above: Result Comment: HDL CHOL ATP-III CLASSIFICATION Cardiovascular Risk HDL > or equal to 60 mg/dL LOW HDL < 40 mg/dL HIGH Performed By: #### P TH #### [address] Cholesterol.total/Lata sterol in HDL [Mass ratio] 3.0 {ratio} Normal <5.0 [facility] Comment on above: Result Comment: PERF ORMED BY: [place] [address] PATHOLOGIST [employer] O[employer] GRANT SCHNEIDER M.D. Performed By: #### P TH #### [address] LDL Cholesterol,Calculated 35 mg/dL Normal 0-100 [facility] Comment on above: Result Comment: LDL ATP III CLASSIFICATION LDL less than 100 mg/dL Optimal LDL 100-129 mg/dL Near or above optimal LDL 130-159 mg/dL Borderline high LDL 160-189 mg/dL High LDL greater than 189 mg/dL Very high Performed By: #### P TH #### [address] Triglyceride w/Reflex 90 mg/dL Normal 0-149 [facility] Comment on above: Result Comment: TRIG ATP III CLASSIFICATION TRIG less than 150 mg/dL Normal TRIG 150-199 mg/dL Borderline high TRIG 200-500 mg/dL High TRIG greater than 500 mg/dL Very high Standard traceable to the Center for Disease Conrtrol and Prevention (CDC) test method. Performed By: #### P TH #### [address] VLDL CHOLESTEROL 18 mg/dL Normal [facility] Comment on above: Performed By: #### P TH #### [address] Lymphocytes Auto (Bld) [#/Vo l]Ordered By: Geoff Swann on 10-20-2024 Lymphocytes (Bld) [#/Vol] Lymphocytes [#/volume] in Blood by Automated count 1.00-4.8 [facility] Lymphocytes/100 WBC Auto (Bl d)Ordered By: Geoff Swann on 10-20-2024 Lymphocytes/100 WBC (Bld) Lymphocytes/100 leukocytes in Blood by Automated count . [facility] MCH Auto (RBC) [Entitic mass ]Ordered By: Geoff Swann on 10-20-2024 MCH (RBC) [Entitic mass] MCH [Entitic mass] by Automated count Low 27.5-35.2 [facility] MCHC Auto (RBC) [Mass/Vol]Or dered By: Geoff Swann on 10-20-2024 MCHC (RBC) [Mass/Vol] MCHC [Mass/volume] by Automated count Low 32.5-35.6 [facility] MCV Auto (RBC) [Entitic vol] Ordered By: Geoff Swann on 10-20-2024 MCV (RBC) [Entitic vol] MCV [Entitic vol ume] by Automated count Low 83.5-101 [facility] Magnesiumon 10-20-2024 Magnesium [Mass/Vol] 2.0 mg/dL Normal 1.9-2.7 [facility] Comment on above: Performed By: #### P TH #### [address] Magnesium [Mass/volume] in S zoey or PlasmaOrdered By: Geoff Swann on 10-20-2024 Magnesium [Mass/Vol] Magnesium [Mass/volume] in Serum or Plasma 1.9-2.7 [facility] Monocytes Auto (Bld) [#/Vol] Ordered By: Geoff Swann on 10-20-2024 Monocytes (Bld) [#/Vol] Automated blood monocyte count 0.0-0.8 [facility] Monocytes/100 WBC Auto (Bld) Ordered By: Geoff Swann on 10-20-2024 Monocytes/100 WBC (Bld) Automated monocyte % . [facility] Neutrophils Auto (Bld) [#/Vo l]Ordered By: Geoff Swann on 10-20-2024 Neutrophils (Bld) [#/Vol] Neutrophils [#/volume] in Blood by Automated count 1.8-7.7 [facility] Neutrophils/100 WBC Auto (Bl d)Ordered By: Geoff Swann on 10-20-2024 Neutrophils/100 WBC (Bld) Automated neutrophil % . [facility] No Panel InformationOrdered By: Geoff Swann on 10-20-2024 Estimated GFR (CKD-EPI) 32.274 mL/Min [facility] Creatinine Clearance (Chem 34.36 [facility] Nucleated erythrocytes [Pres ence] in Blood by Automated countOrdered By: Geoff Swann on 10-20-2024 Nucleated RBC Auto Ql (Bld) Nucleated erythrocytes [Presence] in Blood by Automated count 0-0.5 [facility] Platelet mean volume Auto (B ld) [Entitic vol]Ordered By: Geoff Swann on 10-20-2024 Platelet mean volume (Bld) [Entitic vol] Platelet mean volume [Entitic volume] in Blood by Automated count 6.6-10.1 [facility] Platelets Auto (Bld) [#/Vol] Ordered By: Geoff Swann on 10-20-2024 Platelets (Bld) [#/Vol] Platelets [#/vol ume] in Blood by Automated count 150-450 [facility] Potassium [Moles/volume] in Serum or PlasmaOrdered By: Geoff Swann on 10-20-2024 Potassium [Moles/Vol] Potassium [Moles/volume] in Serum or Plasma Low 3.5-5.1 [facility] RBC Auto (Bld) [#/Vol]Ordere d By: Geoff Swann on 10-20-2024 RBC (Bld) [#/Vol] Erythrocytes [#/volume] in Blood by Automated count Low 3.90-5.60 [facility] Serum or plasma anion gap de terminationOrdered By: Geoff Swann on 10-20-2024 Anion gap [Moles/Vol] Serum or plasma an ion gap determination 6.0-15.0 [facility] Serum or plasma total choles terol/high density lipoprotein (HDL) cholesterol mass ratOrdered By: Geoff Swann on 10-20-2024 Cholesterol.total/Lata sterol in HDL [Mass ratio] Serum or plasma total cholesterol/high density lipoprotein (HDL) cholesterol mass rat <5.0 [facility] Sodium [Moles/volume] in Ser um or PlasmaOrdered By: Geoff Swann on 10-20-2024 Sodium [Moles/Vol] Sodium [Moles/volume ] in Serum or Plasma 136-145 [facility] Triglyceride [Mass/volume] i n Serum or PlasmaOrdered By: Geoff Swann on 10-20-2024 Triglyceride [Mass/Vol] Triglyceride [Mass/volume] in Serum or Plasma 0-149 [facility] Comment on above: TRIG ATP III CLASSIF ICATIONTRIG less than 150 mg/dL NormalTRIG 150-199 mg/dL Borderline highTRIG 200-500 mg/dL High TRIG greater than 500 mg/dL Very highStandard traceable to the Center for Disease Conrtrol and Prevention (CDC) test method. Urea nitrogen [Mass/volume] in Serum or PlasmaOrdered By: Geoff Swann on 10-20-2024 Urea nitrogen [Mass/Vol] Urea nitrogen [Mass/volume] in Serum or Plasma 7-25 [facility] WBC Auto (Bld) [#/Vol]Ordere d By: Geoff Swann on 10-20-2024 WBC (Bld) [#/Vol] Leukocytes [#/volume ] in Blood by Automated count 4.1-10.5 [facility] Alanine aminotransferase [En zymatic activity/volume] in Serum or PlasmaOrdered By: Joel De La Paz on 10-19-2024 ALT [Catalytic activity/Vol] Alanine aminotransferase [Enzymatic activity/volume] in Serum or Plasma Low 7-52 [facility] Albumin [Mass/volume] in Ser um or Plasma by Bromocresol green (BCG) dye binding methoOrdered By: Joel De La Paz on 10-19-2024 Albumin BCG dye [Mass/Vol] Albumin [Mass/volume] in Serum or Plasma by Bromocresol green (BCG) dye binding metho Low 3.5-5.7 [facility] Alkaline phosphatase [Enzyma tic activity/volume] in Serum or PlasmaOrdered By: Joel De La Paz on 10-19-2024 ALP [Catalytic activity/Vol] Alkaline phosphatase [Enzymatic activity/volume] in Serum or Plasma High 34-104 [facility] Aspartate aminotransferase [ Enzymatic activity/volume] in Serum or PlasmaOrdered By: Joel De La Paz on 10-19-2024 AST [Catalytic activity/Vol] Aspartate aminotransferase [Enzymatic activity/volume] in Serum or Plasma Low 13-39 [facility] B-Type Natriuretic Peptideon 10-19-2024 Natriuretic peptide B (Bld) [Mass/Vol] 2785.0 pg/mL High 5-100 [facility] Comment on above: Result Comment: PERF ORMED BY: [facility] [place] [address] PATHOLOGIST [employer] GRANT SCHNEIDER M.D. Performed By: #### I FE,URINE #### [facility] , Basophils Auto (Bld) [#/Vol] Ordered By: Joel De La Paz on 10-19-2024 Basophils (Bld) [#/Vol] Automated basoph il count 0.0-0.2 [facility] Basophils/100 WBC Auto (Bld) Ordered By: Joel De La Paz on 10-19-2024 Basophils/100 WBC (Bld) Automated basophil % . [facility] Bilirubin.total [Mass/volume ] in Serum or PlasmaOrdered By: Joel De La Paz on 10-19-2024 Bilirubin [Mass/Vol] Bilirubin.total [Mass/volume] in Serum or Plasma High 0.3-1.0 [facility] COVID Cepheid NegativeOrdere d By: Joel De La Paz on 10-19-2024 SARS-CoV-2 (COVID-19) Ab IA Ql COVID Cepheid Negative [facility] Comment on above: This is a duplicate [...] or Cepheid Disclaimer revoked sooner. PERFORMED BY: [facility] [place] [address] PATHOLOGIST [employer] OPERATOR GRANT SCHNEIDER M.D. Normal [facility] Comment on above: Performed By: #### I FE,URINE #### [facility] , Calcium [Mass/volume] in Ser um or PlasmaOrdered By: Joel De La Paz on 10-19-2024 Calcium [Mass/Vol] Calcium [Mass/volume ] in Serum or Plasma 8.6-10.3 [facility] Carbon dioxide, total [Moles /volume] in Serum or PlasmaOrdered By: Joel De La Paz on 10-19-2024 CO2 [Moles/Vol] Carbon dioxide, tota l [Moles/volume] in Serum or Plasma 21.0-31.0 [facility] Cepheid COVID PCR Negativeon 10-19-2024 SARS-CoV-2 (COVID-19) RNA MICHELLE+probe Ql (Unsp spec) Negative Normal Negative [facility] Comment on above: Result Comment: This is a duplicate Cepheid Xpert Xpress CoV-2/Flu/RSV Plus RNA by RT-PCR result to be used for statistical tracking purpose only. PERFORMED BY: [address] [place] [address] PATHOLOGIST [employer] OPERATOR GRANT SCHNEIDER M.D. Performed By: #### I FE,URINE #### [facility] , Chloride [Moles/volume] in S zoey or PlasmaOrdered By: Joel De La Paz on 10-19-2024 Chloride [Moles/Vol] Chloride [Moles/volume] in Serum or Plasma 98-107 [facility] Complete Blood Count Auto Di ffon 10-19-2024 Basophils (Bld) [#/Vol] 0.1 10*3/uL Normal 0.0-0.2 [facility] Comment on above: Result Comment: PERF ORMED BY: [address] [place] [address] PATHOLOGIST [employer] OPERATOR GRANT SCHNEIDER M.D. Performed By: #### I FE,URINE #### [facility] , Basophils/100 WBC (Bld) 1.4 % Normal . [facility] Comment on above: Performed By: #### I FE,URINE #### [facility] , Eosinophils (Bld) [#/Vol] 0.0 10*3/uL Normal 0.0-0.45 [facility] Comment on above: Performed By: #### I FE,URINE #### [facility] , Eosinophils/100 WBC (Bld) 0.8 % Normal . [facility] Comment on above: Performed By: #### I FE,URINE #### [facility] , Erythrocyte distribution width (RBC) [Ratio] 17.6 % High 12.0-14.8 [facility] Comment on above: Performed By: #### I FE,URINE #### [facility] , Hematocrit (Bld) [Volume fraction] 28.5 % Low 38.8-50.0 [facility] Comment on above: Performed By: #### I FE,URINE #### [facility] , Hemoglobin (Bld) [Mass/Vol] 9.0 g/dL Low 13.0-17.0 [facility] Comment on above: Performed By: #### I FE,URINE #### [facility] , Lymphocytes (Bld) [#/Vol] 1.0 10*3/uL Normal 1.00-4.8 [facility] Comment on above: Performed By: #### I FE,URINE #### [facility] , Lymphocytes/100 WBC (Bld) 16.9 % Normal . [facility] Comment on above: Performed By: #### I FE,URINE #### [facility] , MCH (RBC) [Entitic mass] 23.7 pg Low 27.5-35.2 [facility] Comment on above: Performed By: #### I FE,URINE #### [facility] , MCV (RBC) [Entitic vol] 74.7 fL Low 83.5-101 [facility] Comment on above: Performed By: #### I FE,URINE #### [facility] , Mean Corpuscular HGB Conc 31.7 g/dL Low 32.5-35.6 [facility] Comment on above: Performed By: #### I FE,URINE #### [facility] , Monocytes (Bld) [#/Vol] 0.5 10*3/uL Normal 0.0-0.8 [facility] Comment on above: Performed By: #### I FE,URINE #### [facility] , Monocytes/100 WBC (Bld) 20.86 % High 0.00-20.00 [facility] Comment on above: Result Comment: For adults in ED, MDW > 20.0 may be associated with a higher risk of sepsis during the first 12 hrs of hospital admission Performed By: #### I FE,URINE #### [facility] , Monocytes/100 WBC (Bld) 8.5 % Normal . [facility] Comment on above: Performed By: #### I FE,URINE #### [facility] , Neutrophils (Bld) [#/Vol] 4.3 10*3/uL Normal 1.8-7.7 [facility] Comment on above: Performed By: #### I FE,URINE #### [facility] , Neutrophils/100 WBC (Bld) 72.4 % Normal . [facility] Comment on above: Performed By: #### I FE,URINE #### [facility] , NRBC% 0.1 /100{WBC} Normal 0-0.5 [facility] Comment on above: Performed By: #### I FE,URINE #### [facility] , Platelet mean volume (Bld) [Entitic vol] 6.8 fL Normal 6.6-10.1 [facility] Comment on above: Performed By: #### I FE,URINE #### [facility] , Platelets (Bld) [#/Vol] 292 10*3/uL Normal 150-450 [facility] Comment on above: Performed By: #### I FE,URINE #### [facility] , RBC (Bld) [#/Vol] 3.81 10*6/uL Low 3.90-5.60 [facility] Comment on above: Performed By: #### I FE,URINE #### [facility] , WBC (Bld) [#/Vol] 5.9 10*3/uL Normal 4.1-10.5 [facility] Comment on above: Performed By: #### I FE,URINE #### [facility] , Comprehensive Metabolic Pane thanh 10-19-2024 Albumin [Mass/Vol] 3.4 g/dL Low 3.5-5.7 [facility] Comment on above: Performed By: #### I FE,URINE #### [facility] , Albumin/Globulin [Mass ratio] 1.0 {ratio} Normal [facility] Comment on above: Performed By: #### I FE,URINE #### [facility] , ALP [Catalytic activity/Vol] 105 U/L High 34-104 [facility] Comment on above: Performed By: #### I FE,URINE #### [facility] , ALT [Catalytic activity/Vol] 6 U/L Low 7-52 [facility] Comment on above: Performed By: #### I FE,URINE #### [facility] , Anion gap [Moles/Vol] 8.9 mmol/L Normal 6.0-15.0 [facility] Comment on above: Performed By: #### I FE,URINE #### [facility] , AST [Catalytic activity/Vol] 12 U/L Low 13-39 [facility] Comment on above: Performed By: #### I FE,URINE #### [facility] , Bilirubin [Mass/Vol] 1.2 mg/dL High 0.3-1.0 [facility] Comment on above: Performed By: #### I FE,URINE #### [facility] , Calcium [Mass/Vol] 9.5 mg/dL Normal 8.6-10.3 [facility] Comment on above: Performed By: #### I FE,URINE #### [facility] , Chloride [Moles/Vol] 100 mmol/L Normal 98-107 [facility] Comment on above: Performed By: #### I FE,URINE #### [facility] , CO2 [Moles/Vol] 28.8 mmol/L Normal 21.0-31.0 [facility] Comment on above: Performed By: #### I FE,URINE #### [facility] , Creatinine [Mass/Vol] 2.19 mg/dL High 0.70-1.30 [facility] Comment on above: Performed By: #### I FE,URINE #### [facility] , Creatinine Clr Calc Pharmacy 33.47 Normal [facility] Comment on above: Result Comment: PERF ORMED BY: [address] [place] [place] [address] PATHOLOGIST [employer] OPERATOR GRANT SCHNEIDER M.D. Performed By: #### I FE,URINE #### [facility] , Estimated GFR 31.216 mL/Min Normal [facility] Comment on above: Performed By: #### I FE,URINE #### [facility] , Globulin (S) [Mass/Vol] 3.5 g/dL Normal [facility] Comment on above: Performed By: #### I FE,URINE #### [facility] , Glucose [Mass/Vol] 109 mg/dL High 70-100 [facility] Comment on above: Result Comment: [place] Glucose Reference Range is dependent on time and content of last meal. Glucose of more than 200 mg/dL in a nonstressed, ambulatory subject supports the diagnosis of Diabetes Mellitus. ADA recommended reference range Performed By: #### I FE,URINE #### [facility] , Potassium [Moles/Vol] 3.7 mmol/L Normal 3.5-5.1 [facility] Comment on above: Performed By: #### I FE,URINE #### [facility] , Protein [Mass/Vol] 6.9 g/dL Normal 6.4-8.9 [facility] Comment on above: Performed By: #### I FE,URINE #### [facility] , Sodium [Moles/Vol] 134 mmol/L Low 136-145 [facility] Comment on above: Performed By: #### I FE,URINE #### [facility] , Urea nitrogen [Mass/Vol] 23 mg/dL Normal 7-25 [facility] Comment on above: Performed By: #### I FE,URINE #### [facility] , Creatine Kinaseon 10-19-2024 CK [Catalytic activity/Vol] 34 U/L Normal 30-223 [facility] Comment on above: Performed By: #### I FE,URINE #### [facility] , Creatine kinase [Enzymatic a ctivity/volume] in Serum or PlasmaOrdered By: Joel De La Paz on 10-19-2024 CK [Catalytic activity/Vol] Creatine kinase [Enzymatic activity/volume] in Serum or Plasma 30- [facility] Creatinine [Mass/volume] in Serum or PlasmaOrdered By: Joel De La Paz on 10-19-2024 Creatinine [Mass/Vol] Creatinine [Mass/volume] in Serum or Plasma High 0.70-1.30 [facility] ECG 12 lead ECGon 10-19-2024 ECG 12 lead ECG [facility] [place] [address] Electrocardiograph Report Signed Patient: Char Alatorre MR#: [id number] 4 : 1950 Acct:[id number] Age/Sex: 73 / M ADM Date: 10/19/24 Loc: ER Room: Type: [facility] ER Attending Dr: Ordering Provider: Joel De La Paz DO Date of Service: 10/19/2402/08/1212 ECG/ECG 12 [...] wave abnormality Prolonged QT Confirmed by Joel DE LA PAZ DO ([id number]) on 10/19/2024 2:39:22 PM Referred By: Electronically Signed By: Joel DE LA PAZ DO Transcribed By: MUS Signed By Joel De La Paz DO 0 10/19/24 1439 Normal [facility] Eosinophils Auto (Bld) [#/Vo l]Ordered By: Joel De La Paz on 10-19-2024 Eosinophils (Bld) [#/Vol] Automated eosinophil count 0.0-0.45 [facility] Eosinophils/100 WBC Auto (Bl d)Ordered By: Joel De La Paz on 10-19-2024 Eosinophils/100 WBC (Bld) Automated eosinophil % . [facility] Erythrocyte distribution wid th Auto (RBC) [Ratio]Ordered By: Joel De La Paz on 10-19-2024 Erythrocyte distribution width (RBC) [Ratio] Erythrocyte distribution width [Ratio] by Automated count High 12.0-14.8 [facility] Globulin Calc (S) [Mass/Vol] Ordered By: Joel De La Paz on 10-19-2024 Globulin (S) [Mass/Vol] Serum globulin measurement by calculation (mass/volume) [facility] Glucose [Mass/volume] in Ser um or PlasmaOrdered By: Joel De La Paz on 10-19-2024 Glucose [Mass/Vol] Glucose [Mass/volume ] in Serum or Plasma High 70-100 [facility] Comment on above: ADA recommended refe rence rangeRandom Glucose Reference Range is dependent on time and content of last meal. Glucose of more than 200 mg/dL in a nonstressed, ambulatory subject supports the diagnosis of Diabetes Mellitus. Hematocrit Auto (Bld) [Volum e fraction]Ordered By: Joel De La Paz on 10-19-2024 Hematocrit (Bld) [Volume fraction] Hematocrit [Volume Fraction] of Blood by Automated count Low 38.8-50.0 [facility] Hemoglobin [Mass/volume] in BloodOrdered By: Joel De La Paz on 10-19-2024 Hemoglobin (Bld) [Mass/Vol] Hemoglobin [Mass/volume] in Blood Low 13.0-17.0 [facility] Leukocytes [#/volume] correc anna for nucleated erythrocytes in Blood by Automated counOrdered By: Joel De La Paz on 10-19-2024 WBC corrected for nucl RBC Auto (Bld) [#/Vol] Leukocytes [#/volume] corrected for nucleated erythrocytes in Blood by Automated coun 4.1-10.5 [facility] Lymphocytes Auto (Bld) [#/Vo l]Ordered By: Joel De La Paz on 10-19-2024 Lymphocytes (Bld) [#/Vol] Lymphocytes [#/volume] in Blood by Automated count 1.00-4.8 [facility] Lymphocytes/100 WBC Auto (Bl d)Ordered By: Joel De La Paz on 10-19-2024 Lymphocytes/100 WBC (Bld) Lymphocytes/100 leukocytes in Blood by Automated count . [facility] MCH Auto (RBC) [Entitic mass ]Ordered By: Joel De La Paz on 10-19-2024 MCH (RBC) [Entitic mass] MCH [Entitic mass] by Automated count Low 27.5-35.2 [facility] MCHC Auto (RBC) [Mass/Vol]Or dered By: Joel De La Paz on 10-19-2024 MCHC (RBC) [Mass/Vol] MCHC [Mass/volume] by Automated count Low 32.5-35.6 [facility] MCV Auto (RBC) [Entitic vol] Ordered By: Joel De La Paz on 10-19-2024 MCV (RBC) [Entitic vol] MCV [Entitic vol ume] by Automated count Low 83.5-101 [facility] Monocyte distribution width [Entitic volume] in Blood by AutomatedOrdered By: Joel De La Paz on 10-19-2024 Monocyte distribution width Auto (Bld) [Entitic vol] Monocyte distribution width [Entitic volume] in Blood by Automated High 0.00-20.00 [facility] Comment on above: For adults in ED, MD W > 20.0 may be associated with a higher risk of sepsis during the first 12 hrs of hospital admission Monocytes Auto (Bld) [#/Vol] Ordered By: Joel De La Paz on 10-19-2024 Monocytes (Bld) [#/Vol] Automated blood monocyte count 0.0-0.8 [facility] Monocytes/100 WBC Auto (Bld) Ordered By: Joel De La Paz on 10-19-2024 Monocytes/100 WBC (Bld) Automated monocyte % . [facility] Natriuretic peptide B [Mass/ Vol]Ordered By: Joel De La Paz on 10-19-2024 Natriuretic peptide B (Bld) [Mass/Vol] BNP ser/plas High 5-100 [facility] Neutrophils Auto (Bld) [#/Vo l]Ordered By: Joel De La Paz on 10-19-2024 Neutrophils (Bld) [#/Vol] Neutrophils [#/volume] in Blood by Automated count 1.8-7.7 [facility] Neutrophils/100 WBC Auto (Bl d)Ordered By: Joel De La Paz on 10-19-2024 Neutrophils/100 WBC (Bld) Automated neutrophil % . [facility] No Panel InformationOrdered By: Joel De La Paz on 10-19-2024 Estimated GFR (CKD-EPI) 31.216 mL/Min [facility] Creatinine Clearance (Chem 33.47 [facility] Nucleated erythrocytes [Pres ence] in Blood by Automated countOrdered By: Joel De La Paz on 10-19-2024 Nucleated RBC Auto Ql (Bld) Nucleated erythrocytes [Presence] in Blood by Automated count 0-0.5 [facility] Platelet mean volume Auto (B ld) [Entitic vol]Ordered By: Joel De La Paz on 10-19-2024 Platelet mean volume (Bld) [Entitic vol] Platelet mean volume [Entitic volume] in Blood by Automated count 6.6-10.1 [facility] Platelets Auto (Bld) [#/Vol] Ordered By: Joel De La Paz on 10-19-2024 Platelets (Bld) [#/Vol] Platelets [#/vol ume] in Blood by Automated count 150-450 [facility] Potassium [Moles/volume] in Serum or PlasmaOrdered By: Joel De La Paz on 10-19-2024 Potassium [Moles/Vol] Potassium [Moles/volume] in Serum or Plasma 3.5-5.1 [facility] Protein [Mass/volume] in Ser um or PlasmaOrdered By: Joel De La Paz on 10-19-2024 Protein [Mass/Vol] Protein [Mass/volume ] in Serum or Plasma 6.4-8.9 [facility] RBC Auto (Bld) [#/Vol]Ordere d By: Joel De La Paz on 10-19-2024 RBC (Bld) [#/Vol] Erythrocytes [#/volume] in Blood by Automated count Low 3.90-5.60 [facility] Respiratory specimen influen za A virus, influenza B virus, respiratory syncytical virOrdered By: Joel De La Paz on 10-19-2024 SARS-CoV-2 (COVID-19) RNA MICHELLE+probe Ql (Unsp spec) Respiratory specimen influenza A virus, influenza B virus, respiratory syncytical vir [facility] Serum or plasma albumin/glob ulin mass ratioOrdered By: Joel De La Paz on 10-19-2024 Albumin/Globulin [Mass ratio] Serum or plasma albumin/globulin mass ratio [facility] Serum or plasma anion gap de terminationOrdered By: Joel De La Paz on 10-19-2024 Anion gap [Moles/Vol] Serum or plasma an ion gap determination 6.0-15.0 [facility] Sodium [Moles/volume] in Ser um or PlasmaOrdered By: Joel De La Paz on 10-19-2024 Sodium [Moles/Vol] Sodium [Moles/volume ] in Serum or Plasma Low 136-145 [facility] Troponin I High Sensitivityo n 10-19-2024 Troponin I High Sensitivity 39.8 pg/mL High 0.0-20.0 [facility] Comment on above: Result Comment: PERF ORMED BY: [facility] [address] [place] [address] PATHOLOGIST [employer] OPERATOR GRANT SCHNEIDER M.D. Performed By: #### I FE,URINE #### [facility] , Troponin I.cardiac [Mass/vol ume] in Serum or Plasma by Detection limit <= 0.01 ng/Ordered By: Joel De La Paz on 10-19-2024 Troponin I.cardiac DL <= 0.01 ng/mL [Mass/Vol] Troponin I.cardiac [Mass/volume] in Serum or Plasma by Detection limit <= 0.01 ng/ High 0.0-20.0 [facility] Urea nitrogen [Mass/volume] in Serum or PlasmaOrdered By: Joel De La Paz on 10-19-2024 Urea nitrogen [Mass/Vol] Urea nitrogen [Mass/volume] in Serum or Plasma 7-25 [facility] WBC Auto (Bld) [#/Vol]Ordere d By: Joel De La Paz on 10-19-2024 WBC (Bld) [#/Vol] Leukocytes [#/volume ] in Blood by Automated count 4.1-10.5 [facility] X-ray reportOrdered By: Char Larios on 10-19-2024 Study report [facility] [address] [address] XRay Report Signed Patient: Char Alatorre MR#: [id number] : 1950 Acct:[id number] Age/Sex: 73 / M ADM Date: 5 Loc: ER Room: Type: [facility] ER Attending Dr: Copies to: Joel De La Paz DO~ Ordering Provider: Joel De La Paz DO Date of Service: 10/19/24 XR/XR chest [...] Char Larios M.D.10/19/2024 1:26 PM Dictation Location: [place] [address] Transcribed By: LUIC 10/19/24 1326 Dictated By: Char Larios II, MD 10/19/24 132 Signed By: 10/19/24 1326 [facility] Work Phone: XR chest 2V*on 10-19-2024 XR chest 2V* [facility] [address] [address] XRay Report Signed Patient: Char Alatorre MR#: [id number] 4 : 1950 Acct:[id number] Age/Sex: 73 / M ADM Date: 10/19/24 Loc: ER Room: Type: [facility] ER Attending Dr: Copies to: Joel De La Paz DO Ordering Provider: Joel De La Paz DO Date of Service: 10/19/24 XR/XR chest [...] Char Larios M.D.10/19/2024 1:26 PM Dictation Location: [place] [address] Transcribed By: LUCI 10/19/24 1326 Dictated By: Char Larios II, MD 10/19/24 1325 Signed By: 10/19/24 1326 Normal [facility] Alanine aminotransferase [En zymatic activity/volume] in Serum or PlasmaOrdered By: Arturo Le on 10-09-2024 ALT [Catalytic activity/Vol] Alanine aminotransferase [Enzymatic activity/volume] in Serum or Plasma Low 7-52 [facility] Albumin [Mass/volume] in Ser um or Plasma by Bromocresol green (BCG) dye binding methoOrdered By: Arturo Le on 10-09-2024 Albumin BCG dye [Mass/Vol] Albumin [Mass/volume] in Serum or Plasma by Bromocresol green (BCG) dye binding metho Low 3.5-5.7 [facility] Alkaline phosphatase [Enzyma tic activity/volume] in Serum or PlasmaOrdered By: Arturo Le on 10-09-2024 ALP [Catalytic activity/Vol] Alkaline phosphatase [Enzymatic activity/volume] in Serum or Plasma High 34-104 [facility] Aspartate aminotransferase [ Enzymatic activity/volume] in Serum or PlasmaOrdered By: Arturo Le on 10-09-2024 AST [Catalytic activity/Vol] Aspartate aminotransferase [Enzymatic activity/volume] in Serum or Plasma Low 13-39 [facility] Basic Metabolic Panelon - Anion gap [Moles/Vol] 10.4 mmol/L Normal 6.0-15.0 [facility] Comment on above: Performed By: #### L ACTIC, HEPATIC, BMP, CBC #### [address] Calcium [Mass/Vol] 9.9 mg/dL Normal 8.6-10.3 [facility] Comment on above: Performed By: #### L ACTIC, HEPATIC, BMP, CBC #### [address] Chloride [Moles/Vol] 101 mmol/L Normal 98-107 [facility] Comment on above: Performed By: #### L ACTIC, HEPATIC, BMP, CBC #### [address] CO2 [Moles/Vol] 27.4 mmol/L Normal 21.0-31.0 [facility] Comment on above: Performed By: #### L ACTIC, HEPATIC, BMP, CBC #### [address] Creatinine [Mass/Vol] 1.98 mg/dL High 0.70-1.30 [facility] Comment on above: Performed By: #### L ACTIC, HEPATIC, BMP, CBC #### [address] Creatinine Clr Calc Pharmacy 37.01 Normal [facility] Comment on above: Result Comment: PERF ORMED BY: [place] [address] PATHOLOGIST [employer] OPERATOR GRANT SCHNEIDER M.D. Performed By: #### L ACTIC, HEPATIC, BMP, CBC #### [address] Estimated GFR 35.229 mL/Min Normal [facility] Comment on above: Performed By: #### L ACTIC, HEPATIC, BMP, CBC #### [facility] [address] Glucose [Mass/Vol] 134 mg/dL High 70-100 [facility] Comment on above: Result Comment: [facility] Glucose Reference Range is dependent on time and content of last meal. Glucose of more than 200 mg/dL in a nonstressed, ambulatory subject supports the diagnosis of Diabetes Mellitus. ADA recommended reference range Performed By: #### L ACTIC, HEPATIC, BMP, CBC #### [facility] [address] Potassium [Moles/Vol] 3.8 mmol/L Normal 3.5-5.1 [facility] Comment on above: Performed By: #### L ACTIC, HEPATIC, BMP, CBC #### [address] Sodium [Moles/Vol] 135 mmol/L Low 136-145 [facility] Comment on above: Performed By: #### L ACTIC, HEPATIC, BMP, CBC #### [address] Urea nitrogen [Mass/Vol] 23 mg/dL Normal 7-25 [facility] Comment on above: Performed By: #### L ACTIC, HEPATIC, BMP, CBC #### [address] Basophils Auto (Bld) [#/Vol] Ordered By: Arturo Le on 10-09-2024 Basophils (Bld) [#/Vol] Automated basoph il count 0.0-0.2 [facility] Basophils/100 WBC Auto (Bld) Ordered By: Arturo Le on 10-09-2024 Basophils/100 WBC (Bld) Automated basophil % . [facility] Bilirubin.direct [Mass/volum e] in Serum or PlasmaOrdered By: Arturo Le on 10-09-2024 Bilirubin.direct [Mass/Vol] Bilirubin.direct [Mass/volume] in Serum or Plasma High 0.03-0.18 [facility] Bilirubin.total [Mass/volume ] in Serum or PlasmaOrdered By: Arturo Le on 10-09-2024 Bilirubin [Mass/Vol] Bilirubin.total [Mass/volume] in Serum or Plasma 0.3-1.[address] [facility] [address] angio abdomen pelvison CT angio abdomen pelvis [facility] Main [place] [id number] CT Scan Report Signed with Addenda Patient: Char Alatorre MR#: [id number] 4 : 1950 Acct:[id number] Age/Sex: 73 / M ADM Date: 10/09/24 Loc: ER Room: Type: [facility] ER Attending Dr: Copies to: Arturo Le MD Ordering Provider: Arturo Le MD Date of Service: 10/09/24 CT/CT angio abdomen pelvis: abdominal pain ADDENDUM 1 Correction to Addendum Dictated By: Lakhwinder Mathias Jr, DO Addendum Signed By: 10/09/241333 Addendum Cosigned [...] diverticulosis. Impression dictated by: Lakhwinder Mathias Jr., D.O.10/09/2024 1:34 PM Dictation Location: [facility] Addendum Dictated By: Lakhwinder Mathias Jr, DO Addendum Signed By: 10/09/241333 Addendum Cosigned [...] dictat (more content not included)... Normal [facility] Calcium [Mass/volume] in Ser um or PlasmaOrdered By: Arturo Le on 10-09-2024 Calcium [Mass/Vol] Calcium [Mass/volume ] in Serum or Plasma 8.6-10.3 [facility] Carbon dioxide, total [Moles /volume] in Serum or PlasmaOrdered By: Arturo Le on 10-09-2024 CO2 [Moles/Vol] Carbon dioxide, tota l [Moles/volume] in Serum or Plasma 21.0-31.0 [facility] Chloride [Moles/volume] in S zoey or PlasmaOrdered By: Arturo Le on 10-09-2024 Chloride [Moles/Vol] Chloride [Moles/volume] in Serum or Plasma 98-107 [facility] Complete Blood Count Auto Di ffon 10-09-2024 Basophils (Bld) [#/Vol] 0.1 10*3/uL Normal 0.0-0.2 [facility] Comment on above: Result Comment: PERF ORMED BY: [facility] [address] [place] [address] PATHOLOGIST [employer] OPERATOR GRANT SCHNEIDER M.D. Performed By: #### L ACTIC, HEPATIC, BMP, CBC #### [facility] [address] [place] [address] [place] Basophils/100 WBC (Bld) 3.1 % Normal . [facility] Comment on above: Performed By: #### L ACTIC, HEPATIC, BMP, CBC #### [facility] [address] [place] [address] [place] Eosinophils (Bld) [#/Vol] 0.0 10*3/uL Normal 0.0-0.45 [facility] Comment on above: Performed By: #### L ACTIC, HEPATIC, BMP, CBC #### [facility] [address] [place] [address] [place] Eosinophils/100 WBC (Bld) 0.4 % Normal . [facility] Comment on above: Performed By: #### L ACTIC, HEPATIC, BMP, CBC #### [address] Erythrocyte distribution width (RBC) [Ratio] 17.6 % High 12.0-14.8 [facility] Comment on above: Performed By: #### L ACTIC, HEPATIC, BMP, CBC #### [address] Hematocrit (Bld) [Volume fraction] 27.9 % Low 38.8-50.0 [facility] Comment on above: Performed By: #### L ACTIC, HEPATIC, BMP, CBC #### [address] Hemoglobin (Bld) [Mass/Vol] 8.9 g/dL Low 13.0-17.0 [facility] Comment on above: Performed By: #### L ACTIC, HEPATIC, BMP, CBC #### [address] Lymphocytes (Bld) [#/Vol] 0.7 10*3/uL Low 1.00-4.8 [facility] Comment on above: Performed By: #### L ACTIC, HEPATIC, BMP, CBC #### [address] Lymphocytes/100 WBC (Bld) 14.8 % Normal . [facility] Comment on above: Performed By: #### L ACTIC, HEPATIC, BMP, CBC #### [address] MCH (RBC) [Entitic mass] 23.7 pg Low 27.5-35.2 [facility] Comment on above: Performed By: #### L ACTIC, HEPATIC, BMP, CBC #### [address] MCV (RBC) [Entitic vol] 74.4 fL Low 83.5-101 [facility] Comment on above: Performed By: #### L ACTIC, HEPATIC, BMP, CBC #### [address] Mean Corpuscular HGB Conc 31.8 g/dL Low 32.5-35.6 [facility] Comment on above: Performed By: #### L ACTIC, HEPATIC, BMP, CBC #### [address] Monocytes (Bld) [#/Vol] 0.3 10*3/uL Normal 0.0-0.8 [facility] Comment on above: Performed By: #### L ACTIC, HEPATIC, BMP, CBC #### [address] Monocytes/100 WBC (Bld) 23.60 % High 0.00-20.00 [facility] Comment on above: Result Comment: For adults in ED, MDW > 20.0 may be associated with a higher risk of sepsis during the first 12 hrs of hospital admission Performed By: #### L ACTIC, HEPATIC, BMP, CBC #### [address] Monocytes/100 WBC (Bld) 7.1 % Normal . [facility] Comment on above: Performed By: #### L ACTIC, HEPATIC, BMP, CBC #### [address] Neutrophils (Bld) [#/Vol] 3.5 10*3/uL Normal 1.8-7.7 [facility] Comment on above: Performed By: #### L ACTIC, HEPATIC, BMP, CBC #### [place] [address] [place] Neutrophils/100 WBC (Bld) 74.6 % Normal . [facility] Comment on above: Performed By: #### L ACTIC, HEPATIC, BMP, CBC #### [address] NRBC% 0.0 /100{WBC} Normal 0-0.5 [facility] Comment on above: Performed By: #### L ACTIC, HEPATIC, BMP, CBC #### [address] [place] [address] [place] Platelet mean volume (Bld) [Entitic vol] 6.6 fL Normal 6.6-10.1 [facility] Comment on above: Performed By: #### L ACTIC, HEPATIC, BMP, CBC #### [facility] [address] Platelets (Bld) [#/Vol] 239 10*3/uL Normal 150-450 [facility] Comment on above: Performed By: #### L ACTIC, HEPATIC, BMP, CBC #### [facility] [address] RBC (Bld) [#/Vol] 3.75 10*6/uL Low 3.90-5.60 [facility] Comment on above: Performed By: #### L ACTIC, HEPATIC, BMP, CBC #### [facility] [address] WBC (Bld) [#/Vol] 4.7 10*3/uL Normal 4.1-10.5 [facility] Comment on above: Performed By: #### L ACTIC, HEPATIC, BMP, CBC #### [facility] [address] Creatinine (Bld) [Mass/Vol]O rdered By: Arturo Le on 10-09-2024 Creatinine [Mass/Vol] Whole blood creati nine measurement High 0.6-1.3 [facility] Comment on above: ER/ESD physician is notified/shown all ISTAT results.Critical values may be confirmed by laboratory testing ifdeemed necessary by ER attending doctor. Creatinine [Mass/volume] in Serum or PlasmaOrdered By: Arturo Le on 10-09-2024 Creatinine [Mass/Vol] Creatinine [Mass/volume] in Serum or Plasma High 0.70-1.30 [facility] ECG 12 lead ECGon 10-09-2024 ECG 12 lead ECG [facility] [place] [address] [place] [address] Electrocardiograph Report Signed Patient: Char Alatorre MR#: [id number] 4 : 1950 Acct:[id number] Age/Sex: 73 / M ADM Date: 10/09/24 Loc: ER Room: Type: [facility] ER Attending Dr: Ordering Provider: Arturo Le MD Date of Service: 10/09/24 ECG/ECG 12 [...] No previous ECGs available Confirmed by ARTURO LE MD ([id number]) on 10/09/2024 7:47:29 PM Referred By: Electronically Signed By: ARTURO LE MD Transcribed By: MUS Signed By Arturo Le MD 09/16 Normal [facility] Eosinophils Auto (Bld) [#/Vo l]Ordered By: Arturo Le on 10-09-2024 Eosinophils (Bld) [#/Vol] Automated eosinophil count 0.0-0.45 [facility] Eosinophils/100 WBC Auto (Bl d)Ordered By: Arturo Le on 10-09-2024 Eosinophils/100 WBC (Bld) Automated eosinophil % . [facility] Erythrocyte distribution wid th Auto (RBC) [Ratio]Ordered By: Arturo Le on 10-09-2024 Erythrocyte distribution width (RBC) [Ratio] Erythrocyte distribution width [Ratio] by Automated count High 12.0-14.8 [facility] Globulin Calc (S) [Mass/Vol] Ordered By: Arturo Le on 10-09-2024 Globulin (S) [Mass/Vol] Serum globulin measurement by calculation (mass/volume) [facility] Glucose [Mass/volume] in Ser um or PlasmaOrdered By: Arturo Le on 10-09-2024 Glucose [Mass/Vol] Glucose [Mass/volume ] in Serum or Plasma High 70-100 [facility] Comment on above: ADA recommended refe rence rangeRandom Glucose Reference Range is dependent on time and content of last meal. Glucose of more than 200 mg/dL in a nonstressed, ambulatory subject supports the diagnosis of Diabetes Mellitus. Hematocrit Auto (Bld) [Volum e fraction]Ordered By: Arturo Le on 10-09-2024 Hematocrit (Bld) [Volume fraction] Hematocrit [Volume Fraction] of Blood by Automated count Low 38.8-50.0 [facility] Hemoglobin [Mass/volume] in BloodOrdered By: Arturo Le on 10-09-2024 Hemoglobin (Bld) [Mass/Vol] Hemoglobin [Mass/volume] in Blood Low 13.0-17.0 [facility] Hepatic Panelon 10-09-2024 Albumin [Mass/Vol] 3.3 g/dL Low 3.5-5.7 [facility] Comment on above: Performed By: #### L ACTIC, HEPATIC, BMP, CBC #### [facility] [address] Albumin/Globulin [Mass ratio] 0.9 {ratio} Normal [facility] Comment on above: Performed By: #### L ACTIC, HEPATIC, BMP, CBC #### [facility] [address] [place] [address] [place] ALP [Catalytic activity/Vol] 109 U/L High 34-104 [facility] Comment on above: Performed By: #### L ACTIC, HEPATIC, BMP, CBC #### [facility] [address] [place] [address] [place] ALT [Catalytic activity/Vol] 6 U/L Low 7-52 [facility] Comment on above: Performed By: #### L ACTIC, HEPATIC, BMP, CBC #### [facility] [address] [place] [address] [place] AST [Catalytic activity/Vol] 10 U/L Low 13-39 [facility] Comment on above: Performed By: #### L ACTIC, HEPATIC, BMP, CBC #### [facility] [address] [place] [address] [place] Bilirubin [Mass/Vol] 0.9 mg/dL Normal 0.3-1.0 [facility] Comment on above: Performed By: #### L ACTIC, HEPATIC, BMP, CBC #### [facility] [address] [place] [address] [place] Bilirubin,Indirect 0.7 mg/dL Normal [facility] Comment on above: Performed By: #### L ACTIC, HEPATIC, BMP, CBC #### [address] Bilirubin.indirect [Mass/Vol] 0.20 mg/dL High 0.03-0.18 [facility] Comment on above: Performed By: #### L ACTIC, HEPATIC, BMP, CBC #### [address] Globulin (S) [Mass/Vol] 3.6 g/dL Normal [facility] Comment on above: Performed By: #### L ACTIC, HEPATIC, BMP, CBC #### [address] Protein [Mass/Vol] 6.9 g/dL Normal 6.4-8.9 [facility] Comment on above: Performed By: #### L ACTIC, HEPATIC, BMP, CBC #### [address] ISTAT XRay CREon 10-09-2024 Creatinine [Mass/Vol] 2.1 mg/dL High 0.6-1.3 [facility] Comment on above: Result Comment: ER/E SD physician is notified/shown all ISTAT results. Critical values may be confirmed by laboratory testing if deemed necessary by ER attending doctor. Performed By: #### A DDONUAPLUS #### [address] ISTAT GFR 32.828 Normal [facility] Comment on above: Result Comment: PERF ORMED BY: [place] [address] PATHOLOGIST [employer] GRANT SCHNEIDER M.D. Performed By: #### A DDONUAPLUS #### [address] Lactate [Moles/volume] in Se rum or PlasmaOrdered By: Arturo Le on 10-09-2024 Lactate [Moles/Vol] Lactate [Moles/volum e] in Serum or Plasma 0.5-2.2 [facility] Lactic Acidon 10-09-2024 Lactate [Moles/Vol] 1.2 mmol/L Normal 0.5-2.2 [facility] Comment on above: Result Comment: PERF ORMED BY: [facility] [address] [place] [address] PATHOLOGIST [employer] GRANT SCHNEIDER M.D. Performed By: #### L ACTIC, HEPATIC, BMP, CBC #### [facility] [address] Leukocytes [#/volume] correc anna for nucleated erythrocytes in Blood by Automated counOrdered By: Arturo Le on 10-09-2024 WBC corrected for nucl RBC Auto (Bld) [#/Vol] Leukocytes [#/volume] corrected for nucleated erythrocytes in Blood by Automated coun 4.1-10.5 [facility] Lymphocytes Auto (Bld) [#/Vo l]Ordered By: Arturo Le on 10-09-2024 Lymphocytes (Bld) [#/Vol] Lymphocytes [#/volume] in Blood by Automated count Low 1.00-4.8 [facility] Lymphocytes/100 WBC Auto (Bl d)Ordered By: Arturo Le on 10-09-2024 Lymphocytes/100 WBC (Bld) Lymphocytes/100 leukocytes in Blood by Automated count . [facility] MCH Auto (RBC) [Entitic mass ]Ordered By: Arturo Le on 10-09-2024 MCH (RBC) [Entitic mass] MCH [Entitic mass] by Automated count Low 27.5-35.2 [facility] MCHC Auto (RBC) [Mass/Vol]Or dered By: Arturo Le on 10-09-2024 MCHC (RBC) [Mass/Vol] MCHC [Mass/volume] by Automated count Low 32.5-35.6 [facility] MCV Auto (RBC) [Entitic vol] Ordered By: Arturo Le on 10-09-2024 MCV (RBC) [Entitic vol] MCV [Entitic vol ume] by Automated count Low 83.5-101 [facility] Monocyte distribution width [Entitic volume] in Blood by AutomatedOrdered By: Arturo Le on 12-25-2024 Monocyte distribution width Auto (Bld) [Entitic vol] Monocyte distribution width [Entitic volume] in Blood by Automated High 0.00-20.00 [facility] Comment on above: For adults in ED, MD W > 20.0 may be associated with a higher risk of sepsis during the first 12 hrs of hospital admission Monocytes Auto (Bld) [#/Vol] Ordered By: Arturo Le on 10-09-2024 Monocytes (Bld) [#/Vol] Automated blood monocyte count 0.0-0.8 [facility] Monocytes/100 WBC Auto (Bld) Ordered By: Arturo Le on 10-09-2024 Monocytes/100 WBC (Bld) Automated monocyte % . [facility] Neutrophils Auto (Bld) [#/Vo l]Ordered By: Arturo Le on 10-09-2024 Neutrophils (Bld) [#/Vol] Neutrophils [#/volume] in Blood by Automated count 1.8-7.7 [facility] Neutrophils/100 WBC Auto (Bl d)Ordered By: Arturo Le on 10-09-2024 Neutrophils/100 WBC (Bld) Automated neutrophil % . [facility] No Panel InformationOrdered By: Arturo Le on 10-09-2024 Bedside Estimated GFR (eGFR) 32.828 [facility] Estimated GFR (CKD-EPI) 35.229 mL/Min [facility] Creatinine Clearance (Chem 37.01 [facility] Nucleated erythrocytes [Pres ence] in Blood by Automated countOrdered By: Arturo Le on 10-09-2024 Nucleated RBC Auto Ql (Bld) Nucleated erythrocytes [Presence] in Blood by Automated count 0-0.5 [facility] Platelet mean volume Auto (B ld) [Entitic vol]Ordered By: Arturo Le on 10-09-2024 Platelet mean volume (Bld) [Entitic vol] Platelet mean volume [Entitic volume] in Blood by Automated count 6.6-10.1 [facility] Platelets Auto (Bld) [#/Vol] Ordered By: Arturo Le on 10-09-2024 Platelets (Bld) [#/Vol] Platelets [#/vol ume] in Blood by Automated count 150-450 [facility] Potassium [Moles/volume] in Serum or PlasmaOrdered By: Arturo Le on 10-09-2024 Potassium [Moles/Vol] Potassium [Moles/volume] in Serum or Plasma 3.5-5.1 [facility] Protein [Mass/volume] in Ser um or PlasmaOrdered By: Arturo Le on 10-09-2024 Protein [Mass/Vol] Protein [Mass/volume ] in Serum or Plasma 6.4-8.9 [facility] RBC Auto (Bld) [#/Vol]Ordere d By: Arturo Le on 10-09-2024 RBC (Bld) [#/Vol] Erythrocytes [#/volume] in Blood by Automated count Low 3.90-5.60 [facility] Serum or plasma albumin/glob ulin mass ratioOrdered By: Arturo Le on 10-09-2024 Albumin/Globulin [Mass ratio] Serum or plasma albumin/globulin mass ratio [facility] Serum or plasma anion gap de terminationOrdered By: Arturo Le on 10-09-2024 Anion gap [Moles/Vol] Serum or plasma an ion gap determination 6.0-15.0 [facility] Serum or plasma non-glucuron idated bilirubin measurement (mass/volume)Ordered By: Arturo Le on 10-09-2024 Bilirubin.indirect [Mass/Vol] Serum or plasma non-glucuronidated bilirubin measurement (mass/volume) [facility] Sodium [Moles/volume] in Ser um or PlasmaOrdered By: Arturo Le on 10-09-2024 Sodium [Moles/Vol] Sodium [Moles/volume ] in Serum or Plasma Low 136-145 [facility] Stool Occult Blood (Guaiac)o n 10-09-2024 Stool Occult Blood (Guaiac) Occult Blood Negative for Occult Blood by Guaiac Methodology Reference range = Negative PERFORMED BY: [facility] [address] [place] [address] PATHOLOGIST [employer]PER[employer] GRANT SCHNEIDER M.D. Normal [facility] Comment on above: Performed By: #### A DDONUAPLUS #### [facility] [address] [place] [id number] [facility] Stool gastrointestinal hemog lobin detectionOrdered By: Arturo Le on 10-09-2024 Hemoglobin.gastrointest inal Ql (Stl) Stool gastrointestinal hemoglobin detection [facility] Urea nitrogen [Mass/volume] in Serum or PlasmaOrdered By: Arturo Le on 10-09-2024 Urea nitrogen [Mass/Vol] Urea nitrogen [Mass/volume] in Serum or Plasma 05-09 [facility] WBC Auto (Bld) [#/Vol]Ordere d By: Arturo Le on 10-09-2024 WBC (Bld) [#/Vol] Leukocytes [#/volume ] in Blood by Automated count 4.1-10.5 [facility] Albumin [Mass/volume] in Ser um or Plasma by Bromocresol green (BCG) dye binding methoOrdered By: Magy Cummings on 09-03-2024 Albumin BCG dye [Mass/Vol] Albumin [Mass/volume] in Serum or Plasma by Bromocresol green (BCG) dye binding metho 3.5-5.7 [facility] Appearance of UrineOrdered B y: Magy Cummings on 09-03-2024 Appearance (U) Urine appearance Clear [facility] Bacteria [Presence] in Urine by AutomatedOrdered By: Magy Cummings on 09-03-2024 Bacteria Auto Ql (U) Bacteria [Presence] in Urine by Automated None Seen [facility] Basophils Auto (Bld) [#/Vol] Ordered By: Magy Cummings on 09-03-2024 Basophils (Bld) [#/Vol] Automated basoph il count 0.0-0.2 [facility] Basophils/100 WBC Auto (Bld) Ordered By: Magy Cummings on 09-03-2024 Basophils/100 WBC (Bld) Automated basophil % . [facility] Bilirubin Test strip Ql (U)O rdered By: Magy Cummings on 09-03-2024 Bilirubin Ql (U) Bilirubin.total [Presence] in Urine by Test strip Negative [facility] Calcium [Mass/volume] in Ser um or PlasmaOrdered By: Magy Cummings on 11-19-2024 Calcium [Mass/Vol] Calcium [Mass/volume ] in Serum or Plasma 8.6-10.3 [facility] Carbon dioxide, total [Moles /volume] in Serum or PlasmaOrdered By: Magy Cummings on 09-03-2024 CO2 [Moles/Vol] Carbon dioxide, tota l [Moles/volume] in Serum or Plasma High 21.0-31.0 [facility] Chloride [Moles/volume] in S zoey or PlasmaOrdered By: Magy Cummings on 09-03-2024 Chloride [Moles/Vol] Chloride [Moles/volume] in Serum or Plasma 98-107 [facility] Color Auto (U)Ordered By: Ab tiarra Cummings on 09-03-2024 Color (U) Color of Urine by Auto Yellow [facility] Blood Count Auto Di ffon 09-03-2024 Basophils (Bld) [#/Vol] 0.1 10*3/uL Normal 0.0-0.2 [facility] Comment on above: Result Comment: PERF ORMED BY: [place] [address] PATHOLOGIST [employer] O[employer] GRANT SCHNEIDER M.D. Performed By: #### A DDONUAPLUS #### [address] Basophils/100 WBC (Bld) 1.0 % Normal . [facility] Comment on above: Performed By: #### A DDONUAPLUS #### [place] [address] [place] Eosinophils (Bld) [#/Vol] 0.1 10*3/uL Normal 0.0-0.45 [facility] Comment on above: Performed By: #### A DDONUAPLUS #### [place] [address] [place] Eosinophils/100 WBC (Bld) 1.4 % Normal . [facility] Comment on above: Performed By: #### A DDONUAPLUS #### [address] Erythrocyte distribution width (RBC) [Ratio] 16.4 % High 12.0-14.8 [facility] Comment on above: Performed By: #### A DDONUAPLUS #### [address] Hematocrit (Bld) [Volume fraction] 32.0 % Low 38.8-50.0 [facility] Comment on above: Performed By: #### A DDONUAPLUS #### [address] Hemoglobin (Bld) [Mass/Vol] 10.3 g/dL Low 13.0-17.0 [facility] Comment on above: Performed By: #### A DDONUAPLUS #### [address] Lymphocytes (Bld) [#/Vol] 1.3 10*3/uL Normal 1.00-4.8 [facility] Comment on above: Performed By: #### A DDONUAPLUS #### [address] Lymphocytes/100 WBC (Bld) 24.7 % Normal . [facility] Comment on above: Performed By: #### A DDONUAPLUS #### [address] MCH (RBC) [Entitic mass] 24.3 pg Low 27.5-35.2 [facility] Comment on above: Performed By: #### A DDONUAPLUS #### [address] MCV (RBC) [Entitic vol] 75.6 fL Low 83.5-101 [facility] Comment on above: Performed By: #### A DDONUAPLUS #### [address] Mean Corpuscular HGB Conc 32.1 g/dL Low 32.5-35.6 [facility] Comment on above: Performed By: #### A DDONUAPLUS #### [address] Monocytes (Bld) [#/Vol] 0.7 10*3/uL Normal 0.0-0.8 [facility] Comment on above: Performed By: #### A DDONUAPLUS #### [place] [address] [place] Monocytes/100 WBC (Bld) 14.1 % Normal . [facility] Comment on above: Performed By: #### A DDONUAPLUS #### [address] Neutrophils (Bld) [#/Vol] 3.0 10*3/uL Normal 1.8-7.7 [facility] Comment on above: Performed By: #### A DDONUAPLUS #### [address] Neutrophils/100 WBC (Bld) 58.8 % Normal . [facility] Comment on above: Performed By: #### A DDONUAPLUS #### [address] NRBC% 0.2 /100{WBC} Normal 0-0.5 [facility] Comment on above: Performed By: #### A DDONUAPLUS #### [address] Platelet mean volume (Bld) [Entitic vol] 6.6 fL Normal 6.6-10.1 [facility] Comment on above: Performed By: #### A DDONUAPLUS #### [place] [address] [place] Platelets (Bld) [#/Vol] 218 10*3/uL Normal 150-450 [facility] Comment on above: Performed By: #### A DDONUAPLUS #### [place] [address] [place] RBC (Bld) [#/Vol] 4.23 10*6/uL Normal 3.90-5.60 [facility] Comment on above: Performed By: #### A DDONUAPLUS #### [place] [address] [place] WBC (Bld) [#/Vol] 5.1 10*3/uL Normal 4.1-10.5 [facility] Comment on above: Performed By: #### A DDONUAPLUS #### [address] Creatinine [Mass/volume] in Serum or PlasmaOrdered By: Magy Emiliano on 09-03-2024 Creatinine [Mass/Vol] Creatinine [Mass/volume] in Serum or Plasma High 0.70-1.30 [facility] Creatinine [Mass/volume] in UrineOrdered By: Magy Emiliano on 09-03-2024 Creatinine (U) [Mass/Vol] Creatinine [Mass/volume] in Urine [facility] Comment on above: No reference range e stablished Dipstick and Microscopicon 1 11-03-2023 Appearance (U) Clear Normal Clear [facility] Comment on above: Order Comment: Reaso n for Exam Chronic kidney disease, stage 3 unspecified;Kade hy kid w cr Name Collection Type:: Clean-Voided Midstream Performed By: #### A DDONUAPLUS #### [address] Bacteria,Urine Rare Normal None Seen [facility] Comment on above: Order Comment: Reaso n for Exam Chronic kidney disease, stage 3 unspecified;Kade hy kid w cr Name Collection Type:: Clean-Voided Midstream Performed By: #### A DDONUAPLUS #### [address] Bilirubin,Urine Negative Normal Negative [facility] Comment on above: Order Comment: Reaso n for Exam Chronic kidney disease, stage 3 unspecified;Kade hy kid w cr Name Collection Type:: Clean-Voided Midstream Performed By: #### A DDONUAPLUS #### [place] [address] [place] Color (U) Light-Yellow Normal Yellow [facility] Comment on above: Order Comment: Reaso n for Exam Chronic kidney disease, stage 3 unspecified;Kade hy kid w cr Name Collection Type:: Clean-Voided Midstream Performed By: #### A DDONUAPLUS #### [facility] [address] [place] [address] [place] Glucose Ql (U) >= High Normal [facility] Comment on above: Order Comment: Reaso n for Exam Chronic kidney disease, stage 3 unspecified;Kade hy kid w cr Name Collection Type:: Clean-Voided Midstream Performed By: #### A DDONUAPLUS #### [place] [address] [place] Hyaline Casts,Urine 0 [LPF] Normal 0-8 [facility] Comment on above: Order Comment: Reaso n for Exam Chronic kidney disease, stage 3 unspecified;Kade hy kid w cr Name Collection Type:: Clean-Voided Midstream Performed By: #### A DDONUAPLUS #### [address] Ketones Ql (U) Negative Normal Negative [facility] Comment on above: Order Comment: Reaso n for Exam Chronic kidney disease, stage 3 unspecified;Kade hy kid w cr Name Collection Type:: Clean-Voided Midstream Performed By: #### A DDONUAPLUS #### [place] [address] [place] Leukocyte esterase Test strip Ql (U) Negative Normal Negative [facility] Comment on above: Order Comment: Reaso n for Exam Chronic kidney disease, stage 3 unspecified;Kade hy kid w cr Name Collection Type:: Clean-Voided Midstream Performed By: #### A DDONUAPLUS #### [place] [address] [place] Mucus,Urine Rare Normal [facility] Comment on above: Order Comment: Reaso n for Exam Chronic kidney disease, stage 3 unspecified;Kade hy kid w cr Name Collection Type:: Clean-Voided Midstream Result Comment: PERF ORMED BY: [place] [address] PATHOLOGIST [employer] OPERATOR GRANT SCHNEIDER M.D. Performed By: #### A DDONUAPLUS #### [place] [address] [place] Nitrite,Urine Negative Normal Negative [facility] Comment on above: Order Comment: Reaso n for Exam Chronic kidney disease, stage 3 unspecified;Kade hy kid w cr Name Collection Type:: Clean-Voided Midstream Performed By: #### A DDONUAPLUS #### [address] Occult Blood,Urine Negative Normal Negative [facility] Comment on above: Order Comment: Reaso n for Exam Chronic kidney disease, stage 3 unspecified;Kade hy kid w cr Name Collection Type:: Clean-Voided Midstream Performed By: #### A DDONUAPLUS #### [place] [address] [place] pH (U) 6.0 [pH] Normal 5.0-9.0 [facility] [facility] Comment on above: Order Comment: Reaso n for Exam Chronic kidney disease, stage 3 unspecified;Kade hy kid w cr Name Collection Type:: Clean-Voided Midstream Performed By: #### A DDONUAPLUS #### [address] Protein (U) [Mass/Vol] 70 mg/dL High Negative Th e [facility] Comment on above: Order Comment: Reaso n for Exam Chronic kidney disease, stage 3 unspecified;Kade hy kid w cr Name Collection Type:: Clean-Voided Midstream Performed By: #### A DDONUAPLUS #### [place] [address] [place] RBC,Urine 1 [HPF] Normal 0-4 [facility] Comment on above: Order Comment: Reaso n for Exam Chronic kidney disease, stage 3 unspecified;Kade hy kid w cr Name Collection Type:: Clean-Voided Midstream Performed By: #### A DDONUAPLUS #### [place] [address] [place] Specificy [place],Urine 1.013 Normal 1.001-1.030 [facility] Comment on above: Order Comment: Reaso n for Exam Chronic kidney disease, stage 3 unspecified;Kade hy kid w cr Name Collection Type:: Clean-Voided Midstream Result Comment: Rech ecked by refractometer Performed By: #### A DDONUAPLUS #### [facility] [address] Urobilinogen,Urine Normal Normal Normal [facility] Comment on above: Order Comment: Reaso n for Exam Chronic kidney disease, stage 3 unspecified;Kade duckworth cr Name Collection Type:: Clean-Voided Midstream Performed By: #### A DDONUAPLUS #### [facility] [address] [place] [address] WBC,Urine 1 [HPF] Normal 0-4 [facility] Comment on above: Order Comment: Reaso n for Exam Chronic kidney disease, stage 3 unspecified;Kade bella tilley w cr Name Collection Type:: Clean-Voided Midstream Performed By: #### A DDONUAPLUS #### [address] Eosinophils Auto (Bld) [#/Vo l]Ordered By: Magy Cummings on 09-03-2024 Eosinophils (Bld) [#/Vol] Automated eosinophil count 0.0-0.45 [facility] Eosinophils/100 WBC Auto (Bl d)Ordered By: Magy Julior on 09-03-2024 Eosinophils/100 WBC (Bld) Automated eosinophil % . [facility] Epithelial cells.squamous [# /area] in Urine sediment by Automated countOrdered By: Magy Cummings on 09-03-2024 Epithelial cells.squamous Auto (Urine sed) [#/Area] Epithelial cells.squamous [#/area] in Urine sediment by Automated count [facility] Erythrocyte distribution wid th Auto (RBC) [Ratio]Ordered By: Magy Cummings on 09-03-2024 Erythrocyte distribution width (RBC) [Ratio] Erythrocyte distribution width [Ratio] by Automated count High 12.0-14.8 [facility] Erythrocytes [#/area] in Uri ne sediment by Automated countOrdered By: Magy Cummings on 09-03-2024 RBC Auto (Urine sed) [#/Area] Erythrocytes [#/area] in Urine sediment by Automated count 0-4 [facility] Ferritinon 09-03-2024 Ferritin [Mass/Vol] 30.7 ng/mL Normal 23.9-336.2 [facility] Comment on above: Order Comment: Reaso n for Exam Chronic kidney disease, stage 3 unspecified;Kade hy kid w cr Performed By: #### P TH #### [facility] [address] [place] [id number] [facility] Ferritin [Mass/volume] in Se rum or PlasmaOrdered By: Magy Cummings on 09-03-2024 Ferritin [Mass/Vol] Ferritin [Mass/volum e] in Serum or Plasma 23.9-336.2 [facility] Glucose [Mass/volume] in Ser um or PlasmaOrdered By: Magy Cummings on 09-03-2024 Glucose [Mass/Vol] Glucose [Mass/volume ] in Serum or Plasma 70-100 [facility] Comment on above: ADA recommended refe [...] in Urine by Test strip High Normal [facility] Hematocrit Auto (Bld) [Volum e fraction]Ordered By: Magy Cummings on 09-03-2024 Hematocrit (Bld) [Volume fraction] Hematocrit [Volume Fraction] of Blood by Automated count Low 38.8-50.0 [facility] Hemoglobin Test strip Ql (U) Ordered By: Magy Cummings on 09-03-2024 Hemoglobin Ql (U) Hemoglobin [Presence ] in Urine by Test strip Negative [facility] Hemoglobin [Mass/volume] in BloodOrdered By: Magy Cummings on 09-03-2024 Hemoglobin (Bld) [Mass/Vol] Hemoglobin [Mass/volume] in Blood Low 13.0-17.0 [facility] Hyaline casts [#/area] in Ur ine sediment by Automated countOrdered By: Magy Cummings on 09-03-2024 Hyaline casts Auto (Urine sed) [#/Area] Hyaline casts [#/area] in Urine sediment by Automated count 0-8 [facility] Iron [Mass/volume] in Serum or PlasmaOrdered By: Magy Cummings on 09-03-2024 Iron [Mass/Vol] Iron [Mass/volume] i n Serum or Plasma Low 50-212 [facility] Iron and TIBC Profileon 08-16 % Iron Saturation 10.0 % Low 20-50 [facility] Comment on above: Order Comment: Reaso n for Exam Chronic kidney disease, stage 3 unspecified;Kade hy kid w cr Performed By: #### P TH #### [facility] [address] Iron [Mass/Vol] 32 ug/dL Low 50-212 [facility] Comment on above: Order Comment: Reaso n for Exam Chronic kidney disease, stage 3 unspecified;Kade hy kid w cr Performed By: #### P TH #### [facility] [address] [place], [place] [id number] [facility] Total Iron Binding Capacity 319 ug/dL Normal 255-450 [facility] Comment on above: Order Comment: Reaso n for Exam Chronic kidney disease, stage 3 unspecified;Kade hy kid w cr Performed By: #### P TH #### [facility] [address] [place] [id number] [facility] Transferrin [Mass/Vol] 228 mg/dL Normal 203-362 Th e [facility] Comment on above: Order Comment: Reaso n for Exam Chronic kidney disease, stage 3 unspecified;Kade hy kid w cr Performed By: #### P TH #### [facility] [address] [place], [place] [id number] [facility] Ketones Test strip Ql (U)Ord ered By: Magy Cummings on 09-03-2024 Ketones Ql (U) Ketones [Presence] i n Urine by Test strip Negative [facility] Leukocyte esterase [Presence ] in Urine by Test stripOrdered By: Magy Cummings on 09-03-2024 Leukocyte esterase Test strip Ql (U) Leukocyte esterase [Presence] in Urine by Test strip Negative [facility] Leukocytes [#/area] in Urine sediment by Automated countOrdered By: Magy Cummings on 09-03-2024 WBC Auto (Urine sed) [#/Area] Leukocytes [#/area] in Urine sediment by Automated count 0-4 [facility] Leukocytes [#/volume] correc anna for nucleated erythrocytes in Blood by Automated counOrdered By: Magy Cummings on 09-03-2024 WBC corrected for nucl RBC Auto (Bld) [#/Vol] Leukocytes [#/volume] corrected for nucleated erythrocytes in Blood by Automated coun 4.1-10.5 [facility] Lymphocytes Auto (Bld) [#/Vo l]Ordered By: Magy Emiliano on 09-03-2024 Lymphocytes (Bld) [#/Vol] Lymphocytes [#/volume] in Blood by Automated count 1.00-4.8 [facility] Lymphocytes/100 WBC Auto (Bl d)Ordered By: Magy Julior on 09-03-2024 Lymphocytes/100 WBC (Bld) Lymphocytes/100 leukocytes in Blood by Automated count . [facility] MCH Auto (RBC) [Entitic mass ]Ordered By: Magy Cummings on 09-03-2024 MCH (RBC) [Entitic mass] MCH [Entitic mass] by Automated count Low 27.5-35.2 [facility] MCHC Auto (RBC) [Mass/Vol]Or dered By: Magy Cummings on 09-03-2024 MCHC (RBC) [Mass/Vol] MCHC [Mass/volume] by Automated count Low 32.5-35.6 [facility] MCV Auto (RBC) [Entitic vol] Ordered By: Magy Cummings on 09-03-2024 MCV (RBC) [Entitic vol] MCV [Entitic vol ume] by Automated count Low 83.5-101 [facility] Magnesiumon 09-03-2024 Magnesium [Mass/Vol] 2.1 mg/dL Normal 1.9-2.7 [facility] Comment on above: Order Comment: Reaso n for Exam Chronic kidney disease, stage 3 unspecified;Kade hy kid w cr Performed By: #### P TH #### [facility] [address] [place] [address] Magnesium [Mass/volume] in S zoey or PlasmaOrdered By: Magy Cummings on 09-03-2024 Magnesium [Mass/Vol] Magnesium [Mass/volume] in Serum or Plasma 1.9-2.7 [facility] Monocytes Auto (Bld) [#/Vol] Ordered By: Magy Cummings on 09-03-2024 Monocytes (Bld) [#/Vol] Automated blood monocyte count 0.0-0.8 [facility] Monocytes/100 WBC Auto (Bld) Ordered By: Magy Emiliano on 09-03-2024 Monocytes/100 WBC (Bld) Automated monocyte % . [facility] Mucus [Presence] in Urine by AutomatedOrdered By: Magy Giordanodir on 09-03-2024 Mucus Auto Ql (U) Mucus [Presence] in Urine by Automated [facility] NT-proBNPon 09-03-2024 Natriuretic peptide B (Bld) [Mass/Vol] 7564 pg/mL High 0-376 [facility] Comment on above: Result Comment: The following cut-points have been suggested for the use of proBNP for the diagnostic evaluation of heart failure (HF) in patients with acute dyspnea: Modality Age Optimal Cut (years) Point Diagnosis (rule in HF) <50 450 pg/mL 50 - 75 900 pg/mL >75 1800 pg/mL Exclusion (rule out HF) Age independent 300 pg/mL Performed at: - [facility] [id number] [employer] Helper: Contreras Pollard PhD, Phone: [phone] PERFORMED BY: [place] [address] PATHOLOGIST [employer] OPERATOR GRANT SCHNEIDER M.D. Performed By: #### A DDONUAPLUS #### [place] [address] [place] Natriuretic peptide.B prohor mickey N-Terminal [Mass/volume] in Serum or PlasmaOrdered By: NON STAFF on 09-03-2024 Natriuretic peptide.B prohormone N-Terminal [Mass/Vol] Natriuretic peptide.B prohormone N-Terminal [Mass/volume] in Serum or Plasma High 0-376 [facility] Comment on above: The following cut-po ints have been suggested for theuse of proBNP for the diagnostic evaluation of heartfailure (HF) in patients with acute dyspnea:Modality Age Optimal Cut (years) Point Erica gnosis (rule in HF) <50 450 pg/mL 50 - 75 900 pg/mL >75 1800 pg/mLExclusion (rule out HF) Age independent 300 pg/mLPerformed at: [facility] [address] [id number] Director: Contreras Pollard PhD, Phone: [phone] Neutrophils Auto (Bld) [#/Vo l]Ordered By: Magy Cummings on 09-03-2024 Neutrophils (Bld) [#/Vol] Neutrophils [#/volume] in Blood by Automated count 1.8-7.7 [facility] Neutrophils/100 WBC Auto (Bl d)Ordered By: Magy Cummings on 09-03-2024 Neutrophils/100 WBC (Bld) Automated neutrophil % . [facility] Nitrite Test strip Ql (U)Ord ered By: Magy Cummings on 09-03-2024 Nitrite Ql (U) Nitrite [Presence] i n Urine by Test strip Negative [facility] No Panel InformationOrdered By: Magy Cummings on 09-03-2024 Estimated GFR (CKD-EPI) 33.016 mL/Min [facility] Creatinine Clearance (Chem N/A [facility] Nucleated erythrocytes [Pres ence] in Blood by Automated countOrdered By: Magy Cummings on 09-03-2024 Nucleated RBC Auto Ql (Bld) Nucleated erythrocytes [Presence] in Blood by Automated count 0-0.5 [facility] Parathyrin.intact [Mass/volu me] in Serum or PlasmaOrdered By: Magy Cummings on 09-03-2024 Parathyrin.intact [Mass/Vol] Parathyrin.intact [Mass/volume] in Serum or Plasma [facility] Parathyroid Hormone Intacton 09-03-2024 Parathyroid Hormone Intact 79.3 pg/mL Normal [facility] Comment on above: Order Comment: Reaso n for Exam Chronic kidney disease, stage 3 unspecified;Kade olivarez Result Comment: PERF ORMED BY: [place] [address] PATHOLOGIST [employer] OPERATOR GRANT SCHNEIDER M.D. Performed By: #### P TH #### [facility] [address] [place] [address] [place] Phosphate [Mass/volume] in S zoey or PlasmaOrdered By: Magy Cummings on 09-03-2024 Phosphate [Mass/Vol] Phosphate [Mass/volume] in Serum or Plasma 2.5-4.5 [facility] Platelet mean volume Auto (B ld) [Entitic vol]Ordered By: Magy Cummings on 09-03-2024 Platelet mean volume (Bld) [Entitic vol] Platelet mean volume [Entitic volume] in Blood by Automated count 6.6-10.1 [facility] Platelets Auto (Bld) [#/Vol] Ordered By: Magy Cummings on 09-03-2024 Platelets (Bld) [#/Vol] Platelets [#/vol ume] in Blood by Automated count 150-450 [facility] Potassium [Moles/volume] in Serum or PlasmaOrdered By: Magy Cummings on 09-03-2024 Potassium [Moles/Vol] Potassium [Moles/volume] in Serum or Plasma 3.5-5.1 [facility] Protein Creat Ratio Ur Rando mon 09-03-2024 Creatinine, Urine (Random) 46.00 mg/dL Normal [facility] Comment on above: Order Comment: Reaso n for Exam Chronic kidney disease, stage 3 unspecified;Kade olivarez Name Collection Type:: Clean-Voided Midstream Result Comment: No r eference range established Performed By: #### A DDONUAPLUS #### [facility] [address] [place] [address] [place] Protein (U) [Mass/Vol] 108 mg/dL High 0-9 Th e [facility] Comment on above: Order Comment: Reaso n for Exam Chronic kidney disease, stage 3 unspecified;Kade hy jarek w cr Name Collection Type:: Clean-Voided Midstream Performed By: #### A DDONUAPLUS #### [facility] [address] [place] [address] [place] Urine Protein/Creatinine Ratio 2348 mg/g{Cre} High 0-200 [facility] Comment on above: Order Comment: Reaso n for Exam Chronic kidney disease, stage 3 unspecified;Kade bella tilley w cr Name Collection Type:: Clean-Voided Midstream Result Comment: PERF ORMED BY: [place] [address] PATHOLOGIST [employer] OPERATOR GRANT SCHNEIDER M.D. Performed By: #### A DDONUAPLUS #### [facility] [address] [place] [id number] [place] Protein Test strip (U) [Mass /Vol]Ordered By: Magy Cummings on 09-03-2024 Protein (U) [Mass/Vol] Protein [Mass/vol ume] in Urine by Test strip High Negative [facility] Protein [Mass/volume] in Uri neOrdered By: Magy Cummings on 09-03-2024 Protein (U) [Mass/Vol] Protein [Mass/vol ume] in Urine High 0-9 [facility] RBC Auto (Bld) [#/Vol]Ordere d By: Magy Cummings on 09-03-2024 RBC (Bld) [#/Vol] Erythrocytes [#/volume] in Blood by Automated count 3.90-5.60 [facility] Renal Function Panelon 09-03 Albumin [Mass/Vol] 3.6 g/dL Normal 3.5-5.7 [facility] Comment on above: Order Comment: Reaso n for Exam Chronic kidney disease, stage 3 unspecified;Kade bella tilley w cr Result Comment: PERF ORMED BY: [address] [address] PATHOLOGIST [employer] OPERATOR GRANT SCHNEIDER M.D. Performed By: #### P TH #### [facility] [address] Anion gap [Moles/Vol] 8.1 mmol/L Normal 6.0-15.0 [facility] Comment on above: Order Comment: Reaso n for Exam Chronic kidney disease, stage 3 unspecified;Kade hy kid w cr Performed By: #### P TH #### [address] Calcium [Mass/Vol] 9.7 mg/dL Normal 8.6-10.3 [facility] Comment on above: Order Comment: Reaso n for Exam Chronic kidney disease, stage 3 unspecified;Kade hy kid w cr Performed By: #### P TH #### [address] Chloride [Moles/Vol] 103 mmol/L Normal 98-107 [facility] Comment on above: Order Comment: Reaso n for Exam Chronic kidney disease, stage 3 unspecified;Kade hy kid w cr Performed By: #### P TH #### [address] CO2 [Moles/Vol] 31.8 mmol/L High 21.0-31.0 [facility] Comment on above: Order Comment: Reaso n for Exam Chronic kidney disease, stage 3 unspecified;Kade hy kid w cr Performed By: #### P TH #### [address] Creatinine [Mass/Vol] 2.09 mg/dL High 0.70-1.30 [facility] Comment on above: Order Comment: Reaso n for Exam Chronic kidney disease, stage 3 unspecified;Kade hy kid w cr Performed By: #### P TH #### [address] Estimated GFR 33.016 mL/Min Normal [facility] Comment on above: Order Comment: Reaso n for Exam Chronic kidney disease, stage 3 unspecified;Kade hy kid w cr Performed By: #### P TH #### [address] [place] [address] [facility] Glucose [Mass/Vol] 91 mg/dL Normal 70-100 [facility] Comment on above: Order Comment: Reaso n for Exam Chronic kidney disease, stage 3 unspecified;Kade hy kid w cr Result Comment: [place] Glucose Reference Range is dependent on time and content of last meal. Glucose of more than 200 mg/dL in a nonstressed, ambulatory subject supports the diagnosis of Diabetes Mellitus. ADA recommended reference range Performed By: #### P TH #### [facility] [address] Phosphate [Mass/Vol] 3.4 mg/dL Normal 2.5-4.5 [facility] Comment on above: Order Comment: Reaso n for Exam Chronic kidney disease, stage 3 unspecified;Kade hy kid w cr Performed By: #### P TH #### [address] Potassium [Moles/Vol] 3.9 mmol/L Normal 3.5-5.1 [facility] Comment on above: Order Comment: Reaso n for Exam Chronic kidney disease, stage 3 unspecified;Kade hy kid w cr Performed By: #### P TH #### [facility] [address] [place], [place] [phone] [place] Sodium [Moles/Vol] 139 mmol/L Normal 136-145 [facility] Comment on above: Order Comment: Reaso n for Exam Chronic kidney disease, stage 3 unspecified;Kade hy kid w cr Performed By: #### P TH #### [place] [id number] [facility] Urea nitrogen [Mass/Vol] 22 mg/dL Normal 7-25 [facility] Comment on above: Order Comment: Reaso n for Exam Chronic kidney disease, stage 3 unspecified;Kade hy kid w cr Performed By: #### P TH #### [place] [id number] [facility] Serum or plasma anion gap de terminationOrdered By: Magy Cummings on 09-03-2024 Anion gap [Moles/Vol] Serum or plasma an ion gap determination 6.0-15.0 [facility] Serum or plasma iron binding capacity measurement (mass/volume)Ordered By: Magy Cummings on 09-03-2024 Iron binding capacity [Mass/Vol] Iron binding capacity [Mass/volume] in Serum or Plasma 255-450 [facility] Serum or plasma iron saturat ion measurement (mass fraction)Ordered By: Magy Cummings on 09-03-2024 Iron saturation [Mass fraction] Iron saturation [Mass Fraction] in Serum or Plasma Low 20-50 [facility] Sodium [Moles/volume] in Ser um or PlasmaOrdered By: Magy Cummings on 09-03-2024 Sodium [Moles/Vol] Sodium [Moles/volume ] in Serum or Plasma 136-145 [facility] Specific gravity of Urine by RefractometryOrdered By: Magy Cummings on 09-03-2024 Specific gravity Refractometry (U) [Rel density] Specific gravity of Urine by Refractometry 1.001-1.030 [facility] Comment on above: Rechecked by refract ometer Transferrin [Mass/volume] in Serum or PlasmaOrdered By: Magy Cummings on 09-03-2024 Transferrin [Mass/Vol] Transferrin [Mass/volume] in Serum or Plasma 203-362 [facility] Urate [Mass/volume] in Serum or PlasmaOrdered By: Magy Cummings on 09-03-2024 Urate [Mass/Vol] Urate [Mass/volume] in Serum or Plasma 4.4-7.6 [facility] Urea nitrogen [Mass/volume] in Serum or PlasmaOrdered By: Magy Cummings on 09-03-2024 Urea nitrogen [Mass/Vol] Urea nitrogen [Mass/volume] in Serum or Plasma 7-25 [facility] Uric Acidon 09-03-2024 Urate [Mass/Vol] 7.0 mg/dL Normal 4.4-7.6 [facility] Comment on above: Order Comment: Reaso n for Exam Chronic kidney disease, stage 3 unspecified;Kade hy kid w cr Performed By: #### P TH #### [address] Urine protein/creatinine rat ioOrdered By: Magy Cummings on 09-03-2024 Protein/Creatinine (U) [Ratio] Urine protein/creatinine ratio High 0-200 [facility] Urobilinogen Test strip (U) [Mass/Vol]Ordered By: Magy Cummings on 09-03-2024 Urobilinogen (U) [Mass/Vol] Urobilinogen [Mass/volume] in Urine by Test strip Normal [facility] Vitamin D 25 Hydroxy Totalon 09-03-2024 Vitamin D 25 Hydroxy Total 29.1 ng/mL Low 30-100 [facility] Comment on above: Order Comment: Reaso n for Exam Chronic kidney disease, stage 3 unspecified;Kade hy kid w cr Result Comment: SHI MIN D STATUS 25(OH)VITAMIN D RANGE (ng/mL) Deficient <20 Insufficient 20 to <30 Sufficient 30 to 100 Reference: Jamal Ma, Chuckie MENDOZA, et al. Evaluation,treatment, and prevention of vitamin D deficiency; an Endocrine Society clinical practice guideline. JCEM. 2010; 96(7):1911-30. PERFORMED BY: [place] [address] PATHOLOGIST [employer] OPERATOR GRANT SCHNEIDER M.D. Performed By: #### P #### [address] Vitamin D+Metabolites [Mass/ volume] in Serum or PlasmaOrdered By: Magy Cummings on 09-03-2024 Vitamin D+Metabolites [Mass/Vol] Vitamin D+Metabolites [Mass/volume] in Serum or Plasma Low 30-100 [facility] Comment on above: VITAMIN D STATUS 25( [place])VITAMIN D RANGE (ng/mL) Deficient <20 Insufficient 20 to <30Sufficient 30 to 100Reference: Jamal Ma, Chuckie MENDOZA, et al. Evaluation,treatment, and prevention of vitamin D deficiency; an Endocrine Society clinical practice guideline. JCEM. 2010; 96(7):1911-30. WBC Auto (Bld) [#/Vol]Ordere d By: Magy Cummings on 09-03-2024 WBC (Bld) [#/Vol] Leukocytes [#/volume ] in Blood by Automated count 4.1-10.5 [facility] pH Test strip (U)Ordered By: Magy Cummings on 09-03-2024 pH (U) pH of Urine by Test strip 5.0-9.0 [facility] Erythrocyte distribution wid th Auto (RBC) [Ratio]on 06-03-2024 Erythrocyte distribution width (RBC) [Ratio] 14.5 % 11.0-15.0 [facility] Estimated glomerular filtrat ion rate (GFR) non- Americanon 06-03-2024 GFR/1.73 sq M.predicted among non-blacks MDRD (S/P/Bld) [Vol rate/Area] 33 mL/min/{1.73_m2} Low >=60 [facility] Glucose mean value [Mass/vol ume] in Blood Estimated from glycated hemoglobinon 06-03-2024 Average glucose Estimated from glycated hemoglobin (Bld) [Mass/Vol] 94 mg/dL [facility] Hematocrit Auto (Bld) [Volum e fraction]on 06-03-2024 Hematocrit (Bld) [Volume fraction] 33.5 % Low 42.0-54.0 [facility] Hemoglobin [Mass/volume] in Bloodon 06-03-2024 Hemoglobin (Bld) [Mass/Vol] 10.6 g/dL Low 14.0-18.0 [facility] Laboratory - Chemistry and C hemistry - challengeon 06-03-2024 Albumin [Mass/Vol] 3.0 g/dL Low 3.4-5.0 [facility] Calcium [Mass/Vol] 9.9 mg/dL 8.5-10.1 [facility] Chloride [Moles/Vol] 101 mmol/L 98-107 [facility] CO2 [Moles/Vol] 31.9 mmol/L 21.0-32.0 [facility] Creatinine [Mass/Vol] 2.00 mg/dL High 0.70-1.30 [facility] GFR/1.73 sq M.predicted MDRD (S/P/Bld) [Vol rate/Area] 40 mL/min/{1.73_m2} Low >=60 [facility] Glucose [Mass/Vol] 106 mg/dL 74-106 [facility] Magnesium [Mass/Vol] 1.8 mg/dL 1.8-2.4 [facility] Potassium [Moles/Vol] 4.1 mmol/L 3.5-5.1 [facility] Sodium [Moles/Vol] 137 mmol/L 136-145 [facility] Urate [Mass/Vol] 7.1 mg/dL 3.5-7.2 [facility] Urea nitrogen [Mass/Vol] 20.0 mg/dL High 7.0-18.0 [facility] Urea nitrogen/Creatinine [Mass ratio] 10.0 mg/mg [facility] Bilirubin Ql (U) Negative NEGATIVE [facility] Glucose (U) [Mass/Vol] Negative NEGATIVE [facility] Ketones Ql (U) Negative NEGATIVE [facility] pH (U) 6.0 [pH] 5.0-9.0 [facility] Specific gravity (U) [Rel density] 1.025 1.005-1.025 [facility] Urobilinogen Qn (U) 1.0 {Beatriz'U}/dL 0.2-1.0 [facility] Laboratory - Hematology and Cell countson 06-03-2024 HbA1c (Bld) [Mass fraction] 4.9 % 4.5-6.2 [facility] Comment on above: ADA RECOMMENDED LIMI T 4.0 - 6.0ADA THERAPEUTIC TARGET < 7.0ACTION SUGGESTED> 7.0 Laboratory - Specimen inform ationon 06-03-2024 Appearance (U) CLEAR CLEAR [facility] Color (U) YELLOW YELLOW [facility] Laboratory - Urinalysison Hyaline casts LM Ql (Urine sed) FEW [facility] Leukocyte esterase Test strip Ql (U) Negative NEGATIVE [facility] Mucus Ql (Urine sed) SMALL Abnormal NONE SEEN [facility] Nitrite Ql (U) Negative NEGATIVE [facility] Protein (U) [Mass/Vol] 385.3 mg/dL High <=11.9 [facility] Protein Ql (U) >=300 mg/dL Abnormal NEG/TRACE [facility] Leukocytes [#/volume] correc anna for nucleated erythrocytes in Blood by Automated counon 06-03-2024 WBC corrected for nucl RBC Auto (Bld) [#/Vol] 5.9 10 3/uL 4.0-11.0 [facility] MCH Auto (RBC) [Entitic mass ]on 06-03-2024 MCH (RBC) [Entitic mass] 26.4 pg 25.9-34.0 [facility] MCHC Auto (RBC) [Mass/Vol]on 06-03-2024 MCHC (RBC) [Mass/Vol] 31.6 g/dL 29.9-35.2 [facility] MCV Auto (RBC) [Entitic vol] on 06-03-2024 MCV (RBC) [Entitic vol] 83.3 fL 80.0-94.0 [facility] No Panel Informationon 06-03 25-Hydroxy Vitamin D Total 19.9 ng/mL [facility] Comment on above: <20 ng/mL Vit D defi cient20-<30 ng/mL Vit D [id number] ng/mL Vit D sufficient>100 ng/mL Potential Toxicity Parathyroid Hormone (Intact) 53 pg/mL 15-65 [facility] Comment on above: Performed at: [place] [id number] Director: Contreras Pollard PhD, Phone: [phone] Phosphorus Level 3.1 mg/dL 2.6-4.7 [facility] Urine Bacteria NONE SEEN #/HPF NONE SEEN [facility] Urine Occult Blood Negative NEGATIVE [facility] Urine Other Casts SEEN #/LPF Abnormal NONE SEEN [facility] Urine Other Crystals None Seen #/HPF None Seen [facility] Urine Random Creatinine 145.44 mg/dL 20.00-300. 00 [facility] Urine RBC 0-2 #/HPF 0-2 [facility] Urine Squamous Epithelial Cells RARE #/LPF NONE/RARE [facility] Urine WBC 2-5 #/HPF Abnormal NONE SEEN [facility] Platelet mean volume Auto (B ld) [Entitic vol]on 06-03-2024 Platelet mean volume (Bld) [Entitic vol] 9.0 fL Low 9.5-13.5 [facility] Platelets Auto (Bld) [#/Vol] on 06-03-2024 Platelets (Bld) [#/Vol] 222 10 3/uL 150-450 [facility] RBC Auto (Bld) [#/Vol]on RBC (Bld) [#/Vol] 4.02 10 6/uL Low 4.70-6.10 [facility] Serum or plasma anion gap de terminationon 06-03-2024 Anion gap [Moles/Vol] 8.2 mmol/L [facility] Urine protein/creatinine rat ioon 06-03-2024 Protein/Creatinine (U) [Ratio] 2.65 [facility] Albumin [Mass/volume] in Ser um or Plasma by Bromocresol green (BCG) dye binding methoOrdered By: Magy Cummings on 03-06-2024 Albumin BCG dye [Mass/Vol] 3.5 g/dL 3.5-5.7 [facility] Calcium [Mass/volume] in Ser um or PlasmaOrdered By: Magy Cummings on 03-06-2024 Calcium [Mass/Vol] 9.8 mg/dL Normal 8.6-10.3 [facility] Comment on above: Performed By: #### R ENAL #### [facility] [address] Carbon dioxide, total [Moles /volume] in Serum or PlasmaOrdered By: Magy Cummings on 03-06-2024 CO2 [Moles/Vol] 31.1 mmol/L High 21.0-31.0 [facility] Comment on above: Performed By: #### R ENAL #### [facility] [address] [place] [address] [place] Chloride [Moles/volume] in S zoey or PlasmaOrdered By: Magy Cummings on 03-06-2024 Chloride [Moles/Vol] 104 mmol/L Normal 98-107 [facility] Comment on above: Performed By: #### R ENAL #### [facility] [address] [place] [address] [place] Creatinine [Mass/volume] in Serum or PlasmaOrdered By: Magy Cummings on 03-06-2024 Creatinine [Mass/Vol] 1.81 mg/dL High 0.70-1.30 [facility] Comment on above: Performed By: #### R ENAL #### [facility] [address] Glucose [Mass/volume] in Ser um or PlasmaOrdered By: Magy Cummings on 03-06-2024 Glucose [Mass/Vol] 101 mg/dL High 70-100 [facility] Comment on above: ADA recommended refe rence rangeRandom Glucose Reference Range is dependent on time and content of last meal. Glucose of more than 200 mg/dL in a nonstressed, ambulatory subject supports the diagnosis of Diabetes Mellitus. Result Comment: [place] om Glucose Reference Range is dependent on time and content of last meal. Glucose of more than 200 mg/dL in a nonstressed, ambulatory subject supports the diagnosis of Diabetes Mellitus. ADA recommended reference range Performed By: #### R ENAL #### [address] No Panel InformationOrdered By: Magy Cummings on 03-06-2024 Estimated GFR (CKD-EPI) 39.237 mL/Min [facility] Creatinine Clearance (Chem N/A [facility] Phosphate [Mass/volume] in S zoey or PlasmaOrdered By: Magy Cummings on 03-06-2024 Phosphate [Mass/Vol] 2.8 mg/dL Normal 2.5-4.5 [facility] Comment on above: Performed By: #### R ENAL #### [address] Potassium [Moles/volume] in Serum or PlasmaOrdered By: Magy Cummings on 03-06-2024 Potassium [Moles/Vol] 3.5 mmol/L Normal 3.5-5.1 [facility] Comment on above: Performed By: #### R ENAL #### [address] Renal Function Panelon 03-06 Albumin [Mass/Vol] 3.5 g/dL Normal 3.5-5.7 [facility] Comment on above: Result Comment: PERF ORMED BY: [place] [address] PATHOLOGIST [employer] OPERATOR SALINA BLOCK M.D. Performed By: #### R ENAL #### [address] GFR/1.73 sq M.predicted MDRD (S/P/Bld) [Vol rate/Area] 39.237 mL/min/{1.73_m2} Normal [facility] Comment on above: Performed By: #### R ENAL #### [address] Serum or plasma anion gap de terminationOrdered By: Magy Cummings on 03-06-2024 Anion gap [Moles/Vol] 9.4 mmol/L Normal 6.0-15.0 [facility] Comment on above: Performed By: #### R ENAL #### [address] Sodium [Moles/volume] in Ser um or PlasmaOrdered By: Magy Emiliano on 03-06-2024 Sodium [Moles/Vol] 141 mmol/L Normal 136-145 [facility] Comment on above: Performed By: #### R ENAL #### [address] Urea nitrogen [Mass/volume] in Serum or PlasmaOrdered By: Magy Emiliano on 03-06-2024 Urea nitrogen [Mass/Vol] 25 mg/dL Normal 7-25 [facility] Comment on above: Performed By: #### R ENAL #### [address] Automated erythrocytes count in urine sediment (number/area)Ordered By: Magy Cummings on 02-15-2024 RBC Auto (Urine sed) [#/Area] 3-4 [HPF] 0-4 [facility] Automated leukocytes count i n urine sediment (number/area)Ordered By: Magy Cummings on 02-15-2024 WBC Auto (Urine sed) [#/Area] 3-4 [HPF] 0-4 [facility] Automated urine color determ inationOrdered By: Magy Cummings on 02-15-2024 Color (U) Yellow Normal Yellow [facility] Comment on above: Order Comment: Name Collection Type:: Voided Performed By: #### R ENAL #### [address] Automated urine hyaline cast s count (number/volume)Ordered By: Magy Cummings on 02-15-2024 Hyaline casts Auto (U) [#/Vol] 10-19 [LPF] 0-1 [facility] Bilirubin Test strip Ql (U)O rdered By: Magy Cummings on 02-15-2024 Bilirubin Ql (U) Negative Negative [facility] Casts typing in urine sedime nt by light microscopyOrdered By: Magy Cummings on 02-15-2024 Casts LM Nom (Urine sed) None seen [LPF] None Seen [facility] Creatinine [Mass/volume] in UrineOrdered By: Magy Cummings on 02-15-2024 Creatinine (U) [Mass/Vol] 157.0 mg/dL [facility] Comment on above: No reference range e stablished Dipstick and Microscopicon 0 02-15-2024 Appearance (U) Clear Normal Clear [facility] Comment on above: Order Comment: Name Collection Type:: Voided Performed By: #### R ENAL #### [place] [address] [place] Bacteria,Urine None Seen Normal None Seen [facility] Comment on above: Order Comment: Name Collection Type:: Voided Performed By: #### R ENAL #### [place] [address] [place] Bilirubin,Urine Negative Normal Negative [facility] Comment on above: Order Comment: Name Collection Type:: Voided Performed By: #### R ENAL #### [place] [address] [place] Glucose Ql (U) 250 mg/dL High Normal [facility] Comment on above: Order Comment: Name Collection Type:: Voided Performed By: #### R ENAL #### [place] [address] [place] Hyaline Casts,Urine 10-19 High 0-1 [facility] Comment on above: Order Comment: Name Collection Type:: Voided Performed By: #### R ENAL #### [address] Ketones Ql (U) Negative Normal Negative [facility] Comment on above: Order Comment: Name Collection Type:: Voided Performed By: #### R ENAL #### [address] Leukocyte esterase Test strip Ql (U) Negative Normal Negative [facility] Comment on above: Order Comment: Name Collection Type:: Voided Performed By: #### R ENAL #### [place] [address] [place] Nitrite,Urine Negative Normal Negative [facility] Comment on above: Order Comment: Name Collection Type:: Voided Performed By: #### R ENAL #### [place] [address] [place] Occult Blood,Urine Trace High Negative [facility] Comment on above: Order Comment: Name Collection Type:: Voided Performed By: #### R ENAL #### [place] [address] [place] Other Casts,Urine None Seen Normal None Seen [facility] Comment on above: Order Comment: Name Collection Type:: Voided Result Comment: PERF ORMED BY: [place] [address] PATHOLOGIST [employer] OPERATOR SALINA BLOCK M.D. Performed By: #### R ENAL #### [place] [address] [place] Protein,Urine >=1000 High Negative [facility] Comment on above: Order Comment: Name Collection Type:: Voided Performed By: #### R ENAL #### [address] RBC,Urine 3-4 Normal 0-4 [facility] Comment on above: Order Comment: Name Collection Type:: Voided Performed By: #### R ENAL #### [address] Specificy [place],Urine 1.026 Normal 1.001-1.030 [facility] Comment on above: Order Comment: Name Collection Type:: Voided Performed By: #### R ENAL #### [address] Squamous Epithelial Cell,Urine 3-4 High 0-2 [facility] Comment on above: Order Comment: Name Collection Type:: Voided Performed By: #### R ENAL #### [address] Urobilinogen,Urine Normal Normal Normal [facility] Comment on above: Order Comment: Name Collection Type:: Voided Performed By: #### R ENAL #### [address] WBC,Urine 3-4 Normal 0-4 [facility] Comment on above: Order Comment: Name Collection Type:: Voided Performed By: #### R ENAL #### [address] Ketones Auto test strip (U) [Mass/Vol]Ordered By: Magy Cummings on 02-15-2024 Ketones (U) [Mass/Vol] Negative Negative [facility] Nitrite Test strip Ql (U)Ord ered By: Magy Emiliano on 02-15-2024 Nitrite Ql (U) Negative Negative [facility] Protein Auto test strip (U) [Mass/Vol]Ordered By: Magy Julior on 02-15-2024 Protein (U) [Mass/Vol] mg/dL Negative [facility] Protein Creat Ratio Ur Rando mon 02-15-2024 Creatinine, Urine (Random) 157.0 mg/dL Normal [facility] Comment on above: Result Comment: No r eference range established Performed By: #### R ENAL #### [facility] [address] [place] [address] Protein, Urine (Random) > 600 High 0-9 [facility] Comment on above: Performed By: #### R ENAL #### [facility] [address] [place] [address] Urine Protein/Creatinine Ratio Not performed Normal 0-200 [facility] Comment on above: Result Comment: PERF ORMED BY: [place] [address] PATHOLOGIST [employer] OPERATOR SALINA BLOCK M.D. Performed By: #### R ENAL #### [address] Protein [Mass/volume] in Uri neOrdered By: Magy Cummings on 02-15-2024 Protein (U) [Mass/Vol] mg/dL 0-9 [facility] Specific gravity Auto test s trip (U) [Rel density]Ordered By: Magy Cummings on 02-15-2024 Specific gravity (U) [Rel density] 1.026 1.001-1.030 [facility] Squamous epithelial cells de tection in urine sediment by light microscopyOrdered By: Magy Cummings on 02-15-2024 Epithelial cells.squamous LM Ql (Urine sed) 3-4 [HPF] 0-2 [facility] Urine bacteria detection by automated methodOrdered By: Magy Cummings on 02-15-2024 Bacteria Auto Ql (U) None seen [HPF] None Seen [facility] Urine clarity by refractomet ry automatedOrdered By: Magy Cummings on 02-15-2024 Clarity Refractometry automated (U) Clear Clear [facility] Urine glucose measurement by automated test strip (mass/volume)Ordered By: Magy Cummings on 02-15-2024 Glucose Auto test strip (U) [Mass/Vol] 250 mg/dL Normal [facility] Urine hemoglobin detection b y automated test stripOrdered By: Magy Cummings on 02-15-2024 Hemoglobin Auto test strip Ql (U) Trace Negative [facility] Urine leukocyte esterase det ection by automated test stripOrdered By: Magy Cummings on 02-15-2024 Leukocyte esterase Auto test strip Ql (U) Negative Negative [facility] Urine pH measurement by auto mated test stripOrdered By: Magy Cummings on 02-15-2024 pH (U) 6.0 [pH] Normal 5.0-9.0 [facility] Comment on above: Order Comment: Name Collection Type:: Voided Performed By: #### R ENAL #### [facility] [address] Urine protein/creatinine rat ioOrdered By: Magy Cummings on 02-15-2024 Protein/Creatinine (U) [Ratio] TNP [facility] Comment on above: Test not performed Urobilinogen Auto test strip (U) [Mass/Vol]Ordered By: Magy Cummings on 02-15-2024 Urobilinogen (U) [Mass/Vol] Normal mg/dL Normal [facility] Albumin [Mass/volume] in Ser um or Plasma by Bromocresol green (BCG) dye binding methoOrdered By: Magy Cummings on 02-14-2024 Albumin BCG dye [Mass/Vol] 3.6 g/dL 3.5-5.7 [facility] Calcium [Mass/volume] in Ser um or PlasmaOrdered By: Magy Cummings on 02-14-2024 Calcium [Mass/Vol] 9.3 mg/dL Normal 8.6-10.3 [facility] Comment on above: Performed By: #### R ENAL #### [facility] [address] Carbon dioxide, total [Moles /volume] in Serum or PlasmaOrdered By: Magy Cummings on 02-14-2024 CO2 [Moles/Vol] 30.7 mmol/L Normal 21.0-31.0 [facility] Comment on above: Performed By: #### R ENAL #### [facility] [address] [place] [address] [place] Chloride [Moles/volume] in S zoey or PlasmaOrdered By: Magy Cummings on 02-14-2024 Chloride [Moles/Vol] 102 mmol/L Normal 98-107 [facility] Comment on above: Performed By: #### R ENAL #### [facility] [address] Creatinine [Mass/volume] in Serum or PlasmaOrdered By: Magy Cummings on 02-14-2024 Creatinine [Mass/Vol] 1.76 mg/dL High 0.70-1.30 [facility] Comment on above: Performed By: #### R ENAL #### [facility] [address] [place] [address] [place] Glucose [Mass/volume] in Ser um or PlasmaOrdered By: Magy Cummings on 02-14-2024 Glucose [Mass/Vol] 113 mg/dL High 70-100 [facility] Comment on above: ADA recommended refe rence rangeRandom Glucose Reference Range is dependent on time and content of last meal. Glucose of more than 200 mg/dL in a nonstressed, ambulatory subject supports the diagnosis of Diabetes Mellitus. Result Comment: [place] om Glucose Reference Range is dependent on time and content of last meal. Glucose of more than 200 mg/dL in a nonstressed, ambulatory subject supports the diagnosis of Diabetes Mellitus. ADA recommended reference range Performed By: #### R ENAL #### [address] No Panel InformationOrdered By: Magy Cummings on 02-14-2024 Estimated GFR (CKD-EPI) 40.578 mL/Min [facility] Creatinine Clearance (Chem N/A [facility] Phosphate [Mass/volume] in S zoey or PlasmaOrdered By: Magy Cummings on 02-14-2024 Phosphate [Mass/Vol] 3.1 mg/dL Normal 2.5-4.5 [facility] Comment on above: Performed By: #### R ENAL #### [place] [address] [place] Potassium [Moles/volume] in Serum or PlasmaOrdered By: Magy Cummings on 02-14-2024 Potassium [Moles/Vol] 3.9 mmol/L Normal 3.5-5.1 [facility] Comment on above: Performed By: #### R ENAL #### [address] Renal Function Panelon 02-13 Albumin [Mass/Vol] 3.6 g/dL Normal 3.5-5.7 [facility] Comment on above: Result Comment: PERF ORMED BY: [place] [address] PATHOLOGIST [employer] OPERATOR SALINA BLOCK M.D. Performed By: #### R ENAL #### [address] GFR/1.73 sq M.predicted MDRD (S/P/Bld) [Vol rate/Area] 40.578 mL/min/{1.73_m2} Normal [facility] Comment on above: Performed By: #### R ENAL #### [address] Serum or plasma anion gap de terminationOrdered By: Magy Emiliano on 02-14-2024 Anion gap [Moles/Vol] 12.2 mmol/L Normal 6.0-15.0 [facility] Comment on above: Performed By: #### R ENAL #### [place] [address] [place] Sodium [Moles/volume] in Ser um or PlasmaOrdered By: Magy Emiliano on 02-14-2024 Sodium [Moles/Vol] 141 mmol/L Normal 136-145 [facility] Comment on above: Performed By: #### R ENAL #### [place] [address] [place] Urea nitrogen [Mass/volume] in Serum or PlasmaOrdered By: Magy Emiliano on 02-14-2024 Urea nitrogen [Mass/Vol] 16 mg/dL Normal 7-25 [facility] Comment on above: Performed By: #### R ENAL #### [place] [address] [place] Albumin [Mass/volume] in Ser um or PlasmaOrdered By: Magy Emiliano on 01-26-2024 Albumin [Mass/Vol] 3.5 g/dL Normal 2.9-4.4 [facility] Comment on above: Performed By: #### I FE,URINE #### [facility] , Albumin [Mass/volume] in Ser um or Plasma by Bromocresol green (BCG) dye binding methoOrdered By: Magy Emiliano on 01-26-2024 Albumin BCG dye [Mass/Vol] 3.6 g/dL 3.5-5.7 [facility] Calcium [Mass/volume] in Ser um or PlasmaOrdered By: Magy Emiliano on 01-26-2024 Calcium [Mass/Vol] 9.5 mg/dL Normal 8.6-10.3 [facility] Comment on above: Performed By: #### K APPA, SPE W INTERPRET, GARCIA SERUM #### [facility] , #### RENAL #### [facility] [address] [place] [address] [place] Carbon dioxide, total [Moles /volume] in Serum or PlasmaOrdered By: Magy Emiliano on 01-26-2024 CO2 [Moles/Vol] 31.8 mmol/L High 21.0-31.0 [facility] Comment on above: Performed By: #### K APPA, SPE W INTERPRET, GARCIA SERUM #### [facility] , #### RENAL #### [facility] [address] [place] [address] [place] Chloride [Moles/volume] in S zoey or PlasmaOrdered By: Magy Emiliano on 01-26-2024 Chloride [Moles/Vol] 100 mmol/L Normal 98-107 [facility] Comment on above: Performed By: #### K APPA, SPE W INTERPRET, GARCIA SERUM #### [facility] , #### RENAL #### [facility] [address] [place] [address] [place] Creatinine [Mass/volume] in Serum or PlasmaOrdered By: Magy Emiliano on 01-26-2024 Creatinine [Mass/Vol] 1.79 mg/dL High 0.70-1.30 [facility] Comment on above: Performed By: #### K APPA, SPE W INTERPRET, GARCIA SERUM #### [facility] , #### RENAL #### [address] Free K+L LT Chains, Qn, Son 01-26-2024 Free [place] Light Chains, S 65.2 mg/L High 3.3-19.4 [facility] Comment on above: Performed By: #### I FE,URINE #### [facility] , Free [place] Light Chains, S 37.0 mg/L High 5.7-26.3 [facility] Comment on above: Performed By: #### I FE,URINE #### [facility] , [place]/Lambda Ratio, S 1.76 High 0.26-1.65 [facility] Comment on above: Result Comment: Perf ormed at: CB - [facility] [address] [id number] [employer] Helper: Contreras Pollard PhD, Phone: [phone] PERFORMED BY: [place] [address] PATHOLOGIST [employer] OPERATOR SALINA BLOCK M.D. Performed By: #### I FE,URINE #### [facility] , Glucose [Mass/volume] in Ser um or PlasmaOrdered By: Magy Cummings on 01-26-2024 Glucose [Mass/Vol] 97 mg/dL Normal 70-100 [facility] Comment on above: ADA recommended refe rence rangeRandom Glucose Reference Range is dependent on time and content of last meal. Glucose of more than 200 mg/dL in a nonstressed, ambulatory subject supports the diagnosis of Diabetes Mellitus. Result Comment: [place] om Glucose Reference Range is dependent on time and content of last meal. Glucose of more than 200 mg/dL in a nonstressed, ambulatory subject supports the diagnosis of Diabetes Mellitus. ADA recommended reference range Performed By: #### K APPA, SPE W INTERPRET, GARCIA SERUM #### [facility] , #### RENAL #### [address] IgA [Mass/volume] in Serum o r PlasmaOrdered By: Magy Emiliano on 01-26-2024 IgA [Mass/Vol] 146 mg/dL 61-437 [facility] IgG [Mass/volume] in Serum o r PlasmaOrdered By: Magy Emiliano on 01-26-2024 IgG [Mass/Vol] 1171 mg/dL 603-1613 [facility] IgM [Mass/volume] in Serum o r PlasmaOrdered By: Magy Emiliano on 01-26-2024 IgM [Mass/Vol] 190 mg/dL 15-143 [facility] Comment on above: Performed at: [facility] [address] [id number] Director: Contreras Pollard PhD, Phone: [phone] Immunofixation for UrineOrde red By: Magy Julior on 01-26-2024 Interpretation Immunofixation (U) [Interp] See comment . [facility] Comment on above: No monoclonality det ected.Performed at: [facility] [address] [id number] Director: Contreras Pollard PhD, Phone: [phone] Immunofixation, (GARCIA), Urine on 01-26-2024 Immunofixation, (GARCIA), Urine Normal . [facility] Comment on above: Result Comment: No m onoclonality detected. Performed at: [facility] [address] [id number] [employer]per: Contreras Pollard PhD, Phone: [phone] PERFORMED BY: [place] [address] PATHOLOGIST [employer] OPERATOR SALINA BLOCK M.D. Performed By: #### I FE,URINE #### [facility] , Immunofixation,Serumon 01-25 Immunofixation, Serum Comment: Normal . [facility] Comment on above: Result Comment: Pres ence of monoclonal protein is unclear at this time. Suggest repeat in 3 to 6 months if clinically indicated. Performed By: #### I FE,URINE #### [facility] , Immunoglobulin A, Serum 146 mg/dL Normal 61-437 [facility] Comment on above: Performed By: #### I FE,URINE #### [facility] , Immunoglobulin G 1171 mg/dL Normal 603-1613 [facility] Comment on above: Performed By: #### I FE,URINE #### [facility] , Immunoglobulin M, Serum 190 mg/dL High 15-143 [facility] Comment on above: Result Comment: Perf ormed at: [facility] [address] [place], [place] [id number] [employer]per: Contreras Pollard PhD, Phone: [phone] Performed By: #### I FE,URINE #### [facility] , Immunoglobulin light chains. kappa.free [Mass/volume] in SerumOrdered By: Magy Emiliano on 01-26-2024 Immunoglobulin light chains.kappa.free (S) [Mass/Vol] 65.2 mg/L 3.3-19.4 [facility] Immunoglobulin light chains. kappa.free/Immunoglobulin light chains.lambda.free [MassOrdered By: Magy Emiliano on 01-26-2024 Immunoglobulin light chains.kappa.free/Immun oglobulin light chains.lambda.free (S) [Mass ratio] 1.76 0.26-1.65 [facility] Comment on above: Performed at: [facility] [address] [id number] Director: Contreras Pollard PhD, Phone: [phone] Immunoglobulin light chains. lambda.free [Mass/volume] in Serum or PlasmaOrdered By: Magy Emiliano on 01-26-2024 Immunoglobulin light chains.lambda.free [Mass/Vol] 37.0 mg/L 5.7-26.3 [facility] No Panel InformationOrdered By: Magy Cummings on 01-26-2024 Estimated GFR (CKD-EPI) 39.763 mL/Min [facility] Creatinine Clearance (Chem N/A [facility] Protein Electrophoresis Interpret See comment . [facility] Comment on above: The SPE pattern appe ars unremarkable. Evidence ofmonoclonal protein is not apparent.Performed at: [facility] [id number] Director: Contreras Pollard PhD, Phone: [phone] Protein Electrophoresis M-Sabino Not observed g/dL Not Observed [facility] Protein Electrophoresis Note See comment . [facility] Comment on above: Protein electrophore sis scan will follow via computer,mail, or biazzi nitrator operator delivery. Serum Immunofixation Comment: . [facility] Comment on above: Presence of monoclon al protein is unclear at this time. Suggestrepeat in 3 to 6 months if clinically indicated. Phosphate [Mass/volume] in S zoey or PlasmaOrdered By: Magy Cummings on 01-26-2024 Phosphate [Mass/Vol] 2.9 mg/dL Normal 2.5-4.5 [facility] Comment on above: Performed By: #### K APPA, SPE W INTERPRET, GARCIA SERUM #### [facility] , #### RENAL #### [facility] [address] Potassium [Moles/volume] in Serum or PlasmaOrdered By: Magy Cummings on 01-26-2024 Potassium [Moles/Vol] 3.1 mmol/L Low 3.5-5.1 [facility] Comment on above: Performed By: #### K APPA, SPE W INTERPRET, GARCIA SERUM #### [facility] , #### RENAL #### [facility] [address] [place] [id number] [place] Prot Electrophoresis w/Inter yolanda 01-26-2024 Fieti-6-Ciavdvhi 0.3 g/dL Normal 0.0-0.4 [facility] Comment on above: Performed By: #### I FE,URINE #### [facility] , Njxmx-7-Bfeakmbs 0.7 g/dL Normal 0.4-1.0 [facility] Comment on above: Performed By: #### I FE,URINE #### [facility] , Beta Globulin 0.8 g/dL Normal 0.7-1.3 [facility] Comment on above: Performed By: #### I FE,URINE #### [facility] , Gamma Globulin 1.1 g/dL Normal 0.4-1.8 [facility] Comment on above: Performed By: #### I FE,URINE #### [facility] , M-Sabino Not Observed Normal Not Observed [facility] Comment on above: Performed By: #### I FE,URINE #### [facility] , SPE-Interpretation Normal . [facility] Comment on above: Result Comment: The SPE pattern appears unremarkable. Evidence of monoclonal protein is not apparent. Performed at: [place] [id number] [employer] Helper: Contreras Pollard PhD, Phone: [phone] Performed By: #### I FE,URINE #### [facility] , SPE-Note Normal . [facility] Comment on above: Result Comment: Prot ein electrophoresis scan will follow via computer, mail, or biazzi nitrator operator delivery. Performed By: #### I FE,URINE #### [facility] , Protein [Mass/volume] in Ser um or PlasmaOrdered By: Magy Cummings on 01-26-2024 Protein [Mass/Vol] 6.4 g/dL Normal 6.0-8.5 [facility] Comment on above: Performed By: #### I FE,URINE #### [facility] , Renal Function Panelon 01-25 Albumin [Mass/Vol] 3.6 g/dL Normal 3.5-5.7 [facility] Comment on above: Result Comment: PERF ORMED BY: [place] [address] PATHOLOGIST [employer]ESS OPERATOR SALINA BLOCK M.D. Performed By: #### K APPA, SPE W INTERPRET, GARCIA SERUM #### [facility] , #### RENAL #### [facility] [address] [place] [address] GFR/1.73 sq M.predicted MDRD (S/P/Bld) [Vol rate/Area] 39.763 mL/min/{1.73_m2} Normal [facility] Comment on above: Performed By: #### K APPA, SPE W INTERPRET, GARCIA SERUM #### [facility] , #### RENAL #### [facility] [address] [place] [address] Serum globulin measurement ( mass/volume)Ordered By: Magy Emiliano on 01-26-2024 Globulin (S) [Mass/Vol] 2.9 g/dL Normal 2.2-3.9 [facility] Comment on above: Performed By: #### I FE,URINE #### [facility] , Serum or plasma albumin/glob ulin mass ratioOrdered By: Magy Emiliano on 01-26-2024 Albumin/Globulin [Mass ratio] 1.2 {ratio} Normal 0.7-1.7 [facility] Comment on above: Performed By: #### I FE,URINE #### [facility] , Serum or plasma alpha 1 glob ulin measurement by electrophoresis (mass/volume)Ordered By: Magy Emiliano on 01-26-2024 Alpha 1 globulin Elph [Mass/Vol] 0.3 g/dL 0.0-0.4 [facility] Serum or plasma alpha 2 glob ulin measurement by electrophoresis (mass/volume)Ordered By: Magy Emiliano on 01-26-2024 Alpha 2 globulin Elph [Mass/Vol] 0.7 g/dL 0.4-1.0 [facility] Serum or plasma anion gap de terminationOrdered By: Magy Emiliano on 01-26-2024 Anion gap [Moles/Vol] 9.3 mmol/L Normal 6.0-15.0 [facility] Comment on above: Performed By: #### K APPA, SPE W INTERPRET, GARCIA SERUM #### [facility] , #### RENAL #### [facility] [address] [place] [address] Serum or plasma beta globuli n measurement by electrophoresis (mass/volume)Ordered By: Magy Cummings on 01-26-2024 Beta globulin Elph [Mass/Vol] 0.8 g/dL 0.7-1.3 [facility] Serum or plasma gamma globul in measurement by electrophoresis (mass/volume)Ordered By: Magy Cummings on 01-26-2024 Gamma globulin Elph [Mass/Vol] 1.1 g/dL 0.4-1.8 [facility] Sodium [Moles/volume] in Ser um or PlasmaOrdered By: Magy Cummings on 01-26-2024 Sodium [Moles/Vol] 138 mmol/L Normal 136-145 [facility] Comment on above: Performed By: #### K APPA, SPE W INTERPRET, GARCIA SERUM #### [facility] , #### RENAL #### [facility] [address] [place] [address] Urea nitrogen [Mass/volume] in Serum or PlasmaOrdered By: Magy Cummings on 01-26-2024 Urea nitrogen [Mass/Vol] 15 mg/dL Normal 7-25 [facility] Comment on above: Performed By: #### K APPA, SPE W INTERPRET, GARCIA SERUM #### [facility] , #### RENAL #### [facility] [address] [place] [address] Laboratory - Chemistry and C hemistry - challengeon 01-17-2024 Bilirubin Ql (U) Negative [facility] Ketones Ql (U) Negative [facility] pH (U) 7.0 [pH] [facility] Specific gravity (U) [Rel density] 1.016 [facility] Laboratory - Specimen inform ationon 01-17-2024 Color (U) yellow [facility] Laboratory - Urinalysison Leukocyte esterase Test strip Ql (U) Negative [facility] Nitrite Ql (U) Negative [facility] Protein Ql (U) 3+ [facility] No Panel Informationon 01-16 Urine Glucose (UA) trace [facility] Office Visit (Cardiology)on 06-01-2022 Follow-up visit Diagnoses/Problems Assessed Peripheral vascular disease (443.9) (I73.9) Hyperlipemia (272.4) (E78.5) Essential hypertension, benign (401.1) (I10) Overweight with body mass index (BMI) of 29 to 29.9 in adult (278.02,V85.25) (E66.3,Z68.29) Orders Essential hypertension, benign IO EKG Electrocardiogram- 12 Lead; Status:Complete; Done: [id number] Hyperlipemia Renew: Atorvastatin Calcium 10 MG Oral Tablet; take 1 tablet by mouth once daily Overweight with body mass index (BMI) of 29 to 29.9 in adult Healthy Weight Tips; Status:Complete; Done: 21Zmm1378 Some eating tips that can help you lose weight.; Status:Complete; Done: [id number] Patient Instructions Please bring all medicines, vitamins, and herbal supplements with you when you come to the office. Prescriptions will not be filled unless you are compliant with your follow up appointments or have a follow up appointment scheduled as per instruction of your physician. Refills should be requested at the time of your visit. records requested from [place] [id number], [address], [place] [facility] from [facility] requested. Follow up in 4 months Chief Complaint CHAR ALATORRE is being seen for a consultation for Juan- Vasculopath. History of Present Illness Patient is [...] place. He believes he might be in [place] or at [facility] also in [facility]. Because of this we will attempt to [...] Signs Recorded: 01Jun2022 02:39PM Heart Rate83, Apical Lrsuwvyl541, RUE, Sitting Qasecfxye01, RUE, Sitting Height6 ft Fspyim010 lb BMI Kjytihgvyv66.97 kg/m2 BSA Calculated2.22 Tobacco Useb) No PHQ-2 [...] Eyes: no (more content not included)... 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 It has not been cleared or approved [...] laboratory. Performed By: #### P THP #### [facility] [address] [place] [address] Dr. Chhaya De La Vega RESPIRATORY PANEL PLUSon Adenovirus Not detected Normal NOT DETECTED [facility] Comment on above: Performed By: #### R SPLUS #### [facility] [address] [place] [address] Dr. Chhaya Izaguirre. Parapertusis Not detected Normal NOT DETECTED [facility] Comment on above: Performed By: #### R SPLUS #### [facility] [address] [place] [address] Dr. Chhaya De La Vega B. Pertussis Not detected Normal NOT DETECTED [facility] Comment on above: Performed By: #### R SPLUS #### [facility] [address] [place] [address] Dr. Chhaya De La Vega Chlamydia Pneumoniae Not detected Normal NOT DETECTED [facility] Comment on above: Performed By: #### R SPLUS #### [facility] [address] [place] [address] Dr. Chhaya De La Vega Coronavirus 229E Not detected Normal NOT DETECTED [facility] Comment on above: Performed By: #### R SPLUS #### [facility] [address] [place] [address] Dr. Chhaya De La Vega Coronavirus HKU1 Not detected Normal NOT DETECTED [facility] Comment on above: Performed By: #### R SPLUS #### [facility] [address] [place] [address] Dr. Chhaya De La Vega Coronavirus NL63 Not detected Normal NOT DETECTED [facility] Comment on above: Performed By: #### R SPLUS #### [facility] [address] [place] [address] Dr. Chhaya De La Vega Coronavirus OC43 Not detected Normal NOT DETECTED [facility] Comment on above: Performed By: #### R SPLUS #### [facility] [address] [place] [address] Dr. Chhaya De La Vega Influenza A H1 2009 Not detected Normal NOT DETECTED [facility] Comment on above: Performed By: #### R SPLUS #### [facility] [address] [place] [address] Dr. Chhaya De La Vega Influenza A H3 Not detected Normal NOT DETECTED [facility] Comment on above: Performed By: #### R SPLUS #### [facility] [address] [place] [address] Dr. Chhaya De La Vega Influenza B Not detected Normal NOT DETECTED [facility] Comment on above: Performed By: #### R SPLUS #### [facility] [address] [place] [address] Dr. Chhaya De La Vega Metapneumovirus Not detected Normal NOT DETECTED [facility] Comment on above: Performed By: #### R SPLUS #### [facility] [address] [place] [address] Dr. Chhaya De La Vega Mycoplas. Pneumoniae Not detected Normal NOT DETECTED [facility] Comment on above: Performed By: #### R SPLUS #### [facility] [address] [place] [address] Dr. Chhaya De La Vega Parainfluenza 1 Not detected Normal NOT DETECTED [facility] Comment on above: Performed By: #### R SPLUS #### [facility] [address] [place] [address] Dr. Chhaya De La Vega Parainfluenza 2 Not detected Normal NOT DETECTED [facility] Comment on above: Performed By: #### R SPLUS #### [facility] [address] [place] [address] Dr. Chhaya De La Vega Parainfluenza 3 Not detected Normal NOT DETECTED [facility] Comment on above: Performed By: #### R SPLUS #### [facility] [address] [place] [address] Dr. Chhaya De La Vega Parainfluenza 4 Not detected Normal NOT DETECTED [facility] Comment on above: Performed By: #### R SPLUS #### [facility] [address] [place] [address] Dr. Chhaya De La Vega Rhino/Enterovirus Detected Abnormal NOT DETECTED [facility] Comment on above: Performed By: #### R SPLUS #### [facility] [address] [place] [address] Dr. Chhaya De La Vega RP2 Header 1 RESPIRATORY PANEL: VIRUSES Normal [facility] Comment on above: Performed By: #### R SPLUS #### [facility] [address] [place] [address] Dr. Chhaya De La Vega RP2 Header 2 RESPIRATORY PANEL: BACTERIA Normal [facility] Comment on above: Performed By: #### R SPLUS #### [facility] [address] [place] [address] Dr. Chhaya De La Vega RSV Not detected Normal NOT DETECTED [facility] Comment on above: Performed By: #### R SPLUS #### [facility] [address] [place] [address] Dr. Chhaya De La Vega SARS-CoV-2 (COVID-19) RNA MICHELLE+probe Ql (Unsp spec) Not detected Normal NOT DETECTED [facility] Comment on above: Performed By: #### R SPLUS #### [facility] [address] [place] [address] Dr. Chhaya De La Vega CALCIUM 24 HR URINEon 2020 CALC, 24 HR UR 318.0 mg/24 hr Critically high 100.0-300.0 [facility] Comment on above: Performed By: #### C [id number] #### [facility] [address] [place] [address] Dr. Chhaya De La Vega UR CALCIUM 26.5 mg/dL Critically high 0.0-21.0 [facility] Comment on above: Performed By: #### C [id number] #### [facility] [address] [place] [address] Dr. Chhaya De La Vega UR TOT VOL 1200 ml/24 HR Normal [facility] Comment on above: Performed By: #### C [id number] #### [facility] [address] [address] [address] Chhaya De La Vega Performed By: #### C [id number] #### [facility] [address] [place] [address] Dr. Chhaya De La Vega CREA 24 HR URINEon CREA, 24 HR UR 1421.52 mg/24 hr Normal 1,000.00- 2,0 00.00 [facility] Comment on above: Performed By: #### C [id number] #### [facility] [address] [place] [address] Dr. Chhaya De La Vega URINE CREAT 118.46 mg/dL Normal 20.00-300.00 [facility] Comment on above: Performed By: #### C [id number] #### [facility] [address] [place] [address] Dr. Chhaya De La Vega PARATHYROID HORMONE PLUS Dash n 09-29-2021 Calcium [Mass/Vol] 9.8 mg/dL Normal 8.6-10.2 [place] Comment on above: Performed By: #### P THCA #### [facility] [address] [place] [address] Dr. Chhaya De La Vega Intact PTH Comment Normal [facility] Comment on above: Result Comment: Inte rpretation Intact PTH Calcium (pg/mL) (mg/dL) Normal 15 - 65 8.6 - 10.2 Primary Hyperparathyroidism >65 >10.2 Secondary Hyperparathyroidism >65 <10.2 Non-Parathyroid Hypercalcemia <65 >10.2 Hypoparathyroidism <15 < 8.6 Non-Parathyroid Hypocalcemia 15 - 65 < 8.6 . Performed By: #### P THCA #### [facility] [address] [place] [address] Dr. Chhaya De La Vega PTH, Intact 66 pg/mL Critically high 15-65 [facility] Comment on above: Performed By: #### P THCA #### [facility] [address] [place] [address] Dr. Chhaya De La Vega PROTEIN ELECTROPHERESISon Albumin [Mass/Vol] 3.5 g/dL Normal 2.9-4.4 [place] Comment on above: Performed By: #### P RTELEC #### [facility] [address] [place] [address] [address] Chhaya De La Vega Albumin/Globulin [Mass ratio] 0.9 {ratio} Normal 0.7-1.7 [facility] Comment on above: Performed By: #### P RTELEC #### [facility] [address] [place] [address] Dr. Chhaya De La Vega Zvxns-3-Uoohxzue 0.3 g/dL Normal 0.0-0.4 [facility] Comment on above: Performed By: #### P RTELEC #### [facility] [address] [place] [address] Dr. Chhaya De La Vega Yhucb-5-Nmyjidqm 0.9 g/dL Normal 0.4-1.0 [facility] Comment on above: Performed By: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 SaO2% (BldA) [Mass fraction] 97 % Justin Martinez MD Work Phone: [facility] 10-21-2024 11:06-0500 Systolic blood pressure 88 mm[Hg] Justin Martinez MD Work Phone: [facility] 10-20-2024 11:51-0500 Diastolic blood pressure 70 mm[Hg] Justin Martinez MD Work Phone: [facility] 10-20-2024 11:51-0500 Heart rate 88 /min Justin Martinez MD Work Phone: [facility] 10-20-2024 11:51-0500 Respiratory rate 18 /min Justin Martinez MD Work Phone: [facility] 10-20-2024 11:51-0500 SaO2% (BldA) [Mass fraction] 93 % Justin Martinez MD Work Phone: [facility] 10-20-2024 11:51-0500 Systolic blood pressure 102 mm[Hg] Justin Martinez MD Work Phone: [facility] 10-20-2024 11:43-0500 Body height 182.88 cm Justin Martinez MD Work Phone: [facility] 10-20-2024 08:39-0500 Inhaled oxygen flow rate 2 L/min Justin Martinez MD Work Phone: [facility] [facility] 10-20-2024 08:29-0500 Body temperature 97.5 [degF] Justin Martinez MD Work Phone: [facility] 10-20-2024 05:47-0500 Body weight 77.5 kg Justin Martinez MD Work Phone: [facility] 10-19-2024 16:42-0500 Diastolic blood pressure 65 mm[Hg] Justin Martinez MD Work Phone: [facility] 10-19-2024 16:42-0500 Heart rate 78 /min Justin Martinez MD Work Phone: [facility] 10-19-2024 16:42-0500 Respiratory rate 18 /min Justin Martinez MD Work Phone: [facility] 10-19-2024 16:42-0500 SaO2% (BldA) [Mass fraction] 96 % Justin Martinez MD Work Phone: [facility] 10-19-2024 16:42-0500 Systolic blood pressure 133 mm[Hg] Justin Martinez MD Work Phone: [facility] 10-19-2024 15:14-0500 Inhaled oxygen flow rate 2 L/min Justin Martinez MD Work Phone: [facility] 10-19-2024 12:09-0500 Body height 182.88 cm Justin Martinez MD Work Phone: [facility] 10-19-2024 12:09-0500 Body weight 81.5 kg Justin Martinez MD Work Phone: [facility] 10-09-2024 14:35-0500 Diastolic blood pressure 63 mm[Hg] Justin Martinez MD Work Phone: [facility] 10-09-2024 14:35-0500 Heart rate 81 /min Justin Martinez MD Work Phone: [facility] 10-09-2024 14:35-0500 Respiratory rate 24 /min Justin Martinez MD Work Phone: [facility] 10-09-2024 14:35-0500 SaO2% (BldA) [Mass fraction] 100 % Justin Martinez MD Work Phone: [facility] 10-09-2024 14:35-0500 Systolic blood pressure 127 mm[Hg] Justin Martinez MD Work Phone: [facility] 10-09-2024 13:34-0500 Inhaled oxygen flow rate 2 L/min Justin Martinez MD Work Phone: [facility] 10-09-2024 12:06-0500 Body height 182.88 cm Justin Martinez MD Work Phone: [facility] 10-09-2024 12:06-0500 Body temperature 98.3 [degF] Justin Martinez MD Work Phone: [facility] 10-09-2024 12:06-0500 Body weight 82.5 kg Justin Martinez MD Work Phone: [facility] 09-16-2024 10:30-0500 Body height 182.88 cm Justin Martinez MD Work Phone: [facility] 09-16-2024 10:30-0500 Body mass index (BMI) [Ratio] 24.7 kg/m2 Justin Martinez MD Work Phone: [facility] 09-16-2024 10:30-0500 Body temperature 96.5 [degF] Justin Martinez MD Work Phone: [facility] 09-16-2024 10:30-0500 Body weight 82.55 kg Justin Martinez MD Work Phone: [facility] 09-16-2024 10:30-0500 Diastolic blood pressure 72 mm[Hg] Justin Martinez MD Work Phone: [facility] 09-16-2024 10:30-0500 Heart rate 76 /min Justin Martinez MD Work Phone: [facility] 09-16-2024 10:30-0500 Respiratory rate 16 /min Justin Martinez MD Work Phone: [facility] 09-16-2024 10:30-0500 SaO2% (BldA) [Mass fraction] 97 % Justin Martinez MD Work Phone: [facility] 09-16-2024 10:30-0500 Systolic blood pressure 92 mm[Hg] Justin Martinez MD Work Phone: [facility] 09-03-2024 09:30-0500 Body height 182.88 cm [facility] 09-03-2024 09:30-0500 Body mass index (BMI) [Ratio] 24.7 kg/m2 [facility] 09-03-2024 09:30-0500 Body temperature 96.4 [degF] [facility] 09-03-2024 09:30-0500 Body weight 82.55 kg [facility] 09-03-2024 09:30-0500 Diastolic blood pressure 69 mm[Hg] [facility] 09-03-2024 09:30-0500 Heart rate 76 /min [facility] 09-03-2024 09:30-0500 Respiratory rate 20 /min [facility] 09-03-2024 09:30-0500 SaO2% (BldA) [Mass fraction] 96 % [facility] 09-03-2024 09:30-0500 Systolic blood pressure 112 mm[Hg] [facility] 07-16-2024 11:06-0400 Body height 180.3 cm Justin Martinez MD Work Phone: [facility] 07-16-2024 11:06-0400 Body mass index (BMI) [Ratio] 26.22 kg/m2 Justin Martinez MD Work Phone: [facility] 07-16-2024 11:06-0400 Body weight 85.28 kg Justin Martinez MD Work Phone: [facility] 07-16-2024 11:06-0400 Diastolic blood pressure 78 mm[Hg] Justin Martinez MD Work Phone: [facility] 07-16-2024 11:06-0400 Heart rate 80 /min Justin Martinez MD Work Phone: [facility] 07-16-2024 11:06-0400 SaO2% (BldA) [Mass fraction] 96 % Justin Martinez MD Work Phone: [facility] 07-16-2024 11:06-0400 Systolic blood pressure 110 mm[Hg] Justin Martinez MD Work Phone: [facility] 07-03-2024 10:24-0400 Body height 182.88 cm [facility] 07-03-2024 10:24-0400 Body mass index (BMI) [Ratio] 25.6 kg/m2 [facility] 07-03-2024 10:24-0400 Body temperature 97.4 [degF] [facility] 07-03-2024 10:24-0400 Body weight 85.72 kg [facility] 07-03-2024 10:24-0400 Diastolic blood pressure 62 mm[Hg] [facility] 07-03-2024 10:24-0400 Heart rate 69 /min [facility] 07-03-2024 10:24-0400 Respiratory rate 20 /min [facility] 07-03-2024 10:24-0400 SaO2% (BldA) [Mass fraction] 97 % [facility] 07-03-2024 10:24-0400 Systolic blood pressure 97 mm[Hg] [facility] 06-06-2024 11:26-0400 Body height 182.88 cm [facility] 06-06-2024 11:26-0400 Body mass index (BMI) [Ratio] 26.6 kg/m2 [facility] 06-06-2024 11:26-0400 Body temperature 97.7 [degF] [facility] 06-06-2024 11:26-0400 Body weight 88.9 kg [facility] 06-06-2024 11:26-0400 Diastolic blood pressure 59 mm[Hg] [facility] 06-06-2024 11:26-0400 Heart rate 83 /min [facility] 06-06-2024 11:26-0400 Respiratory rate 18 /min [facility] 06-06-2024 11:26-0400 SaO2% (BldA) [Mass fraction] 98 % [facility] 06-06-2024 11:26-0400 Systolic blood pressure 87 mm[Hg] [facility] 06-04-2024 10:25-0400 Body height 180.3 cm Justin Martinez MD Work Phone: [facility] 06-04-2024 10:25-0400 Body mass index (BMI) [Ratio] 27.34 kg/m2 Justin Martinez MD Work Phone: [facility] 06-04-2024 10:25-0400 Body weight 88.91 kg Justin Martinez MD Work Phone: [facility] 06-04-2024 10:25-0400 Diastolic blood pressure 88 mm[Hg] Justin Martinez MD Work Phone: [facility] 06-04-2024 10:25-0400 Heart rate 91 /min Justin Martinez MD Work Phone: [facility] 06-04-2024 10:25-0400 SaO2% (BldA) [Mass fraction] 94 % Justin Martinez MD Work Phone: [facility] 06-04-2024 10:25-0400 Systolic blood pressure 126 mm[Hg] Justin Martinez MD Work Phone: [facility] 02-22-2024 11:23-0400 Body height 182.88 cm MD Justin Martinez Work Phone: [facility] 02-22-2024 11:23-0400 Body mass index (BMI) [Ratio] 28.7 kg/m2 MD Justin Martinez Work Phone: [facility] 02-22-2024 11:23-0400 Body temperature 96.2 [degF] MD Justin Martinez Work Phone: [facility] 02-22-2024 11:23-0400 Body weight 96.16 kg MD Justin Martinez Work Phone: [facility] 02-22-2024 11:23-0400 Diastolic blood pressure 70 mm[Hg] MD Justin Martinez Work Phone: [facility] 02-22-2024 11:23-0400 Heart rate 95 /min MD Justin Martinez Work Phone: [facility] 02-22-2024 11:23-0400 Respiratory rate 18 /min MD Justin Martinez Work Phone: [facility] 02-22-2024 11:23-0400 SaO2% (BldA) [Mass fraction] 98 % MD Justin Martinez Work Phone: [facility] 02-22-2024 11:23-0400 Systolic blood pressure 112 mm[Hg] MD Justin Martinez Work Phone: [facility] 01-25-2024 16:01-0400 Diastolic blood pressure 84 mm[Hg] [facility] 01-25-2024 16:01-0400 Heart rate 97 /min [facility] 01-25-2024 16:01-0400 SaO2% (BldA) [Mass fraction] 95 % [facility] 01-25-2024 16:01-0400 Systolic blood pressure 120 mm[Hg] [facility] 03-16-2023 10:20-0400 Body height 182.88 cm Magy Emiliano Other [facility] [employer] Other 03-16-2023 10:20-0400 Body mass index (BMI) [Ratio] 30.08 kg/m2 Magy Emiliano Other [employer] Other 03-16-2023 10:20-0400 Body temperature 96.1 [degF] Magy Emiliano Other [employer] Other 03-16-2023 10:20-0400 Body weight 100.61 kg Magy Emiliano Other [employer] Other 03-16-2023 10:20-0400 Diastolic blood pressure 50 mm[Hg] Magy Emiliano Other [employer] Other 03-16-2023 10:20-0400 Respiratory rate 18 /min Magy Emiliano Other [employer] Other 03-16-2023 10:20-0400 SaO2% (BldA) [Mass fraction] 92 % Magy Emiliano Other [employer] Other 03-16-2023 10:20-0400 Systolic blood pressure 100 mm[Hg] Magy Emiliano Other [employer] Other 06-01-2022 14:39-0400 Body height 182.88 cm [employer] Work Phone: [facility] [employer] DO Work Phone: 06-01-2022 14:39-0400 Body mass index (BMI) [Ratio] 29.97 kg/m2 [employer] Work Phone: [facility] [employer] 250 DO Work Phone: 06-01-2022 14:39-0400 Body surface area Derived from formula 2.22 m2 [employer] Work Phone: [facility] [employer] 250 DO Work Phone: 06-01-2022 14:39-0400 Body weight 100.25 kg [employer] Work Phone: [facility] 250 DO Work Phone: 06-01-2022 14:39-0400 Diastolic blood pressure 64 mm[Hg] [employer] Work Phone: [facility] 250 DO Work Phone: 06-01-2022 14:39-0400 Heart rate 83 /min [employer] Work Phone: [facility] 250 DO Work Phone: 06-01-2022 14:39-0400 Systolic blood pressure 130 mm[Hg] Justin Martinez Work Phone: [facility] [email or web address] 250 DO Work Phone: 04-21-2022 11:20-0400 Body height 182.88 cm Magy Emiliano Other [employer] Other 04-21-2022 11:20-0400 Body mass index (BMI) [Ratio] 29.45 kg/m2 Magy Emiliano Other [employer] Other 04-21-2022 11:20-0400 Body temperature 96.5 [degF] Magy Emiliano Other [employer] Other 04-21-2022 11:20-0400 Body weight 98.52 kg Magy Emiliano Other [employer] Other 04-21-2022 11:20-0400 Diastolic blood pressure 60 mm[Hg] Magy Emiliano Other [employer] Other 04-21-2022 11:20-0400 Respiratory rate 18 /min Magy Emiliano Other [employer] Other 04-21-2022 11:20-0400 SaO2% (BldA) [Mass fraction] 94 % Magy Emiliano Other [employer] Other 04-21-2022 11:20-0400 Systolic blood pressure 120 mm[Hg] Magy Emiliano Other [employer] Other Encounters Encounter Date Encounter Type Care Provider Facility Start: 10-28-2024 End: 10-28-2024 Patient encounter procedure Justin Martinez MD Work Phone: [facility] Work Phone: Start: 10-28-2024 End: 10-28-2024 ambulatory Justin Martinez MD Work Phone: [facility] Work Phone: Start: 10-28-2024 End: 10-28-2024 ambulatory Justin Martinez MD Work Phone: [facility] Work Phone: Start: 10-28-2024 End: 10-28-2024 Patient encounter procedure Justin Martinez MD Work Phone: [facility] Work Phone: Start: 10-21-2024 End: 10-21-2024 Transitional care manage srvc 14 day discharge Justin Martinez MD Work Phone: [facility] Comment on above: 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, 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) (CMS/HCC) (Primary Dx); CKD stage 3b, GFR 30-44 ml/min (CMS/HCC); Anemia in other chronic diseases classified elsewhere; CHF (congestive heart failure), NYHA class IV, acute on chronic, diastolic (CMS/HCC) Start: 10-21-2024 End: 10-21-2024 ambulatory JUSTIN MARTINEZ Not Available Start: 10-19-2024 End: 10-20-2024 Evaluation and management of inpatient Justin Martinez MD Work Phone: [facility] [place] [facility] Work Phone: Start: 10-09-2024 End: 10-09-2024 Emergency department patient visit Justin Martinez MD Work Phone: [facility] Work Phone: Start: 09-16-2024 End: 09-16-2024 Patient encounter procedure Justin Martinez MD Work Phone: [facility] Work Phone: Start: 09-03-2024 End: 09-03-2024 Patient encounter procedure Justin Martinez MD Work Phone: [facility] [place] Work Phone: Start: 09-03-2024 End: 09-03-2024 ambulatory Justin Martinez MD Work Phone: [facility] Work Phone: Start: 09-03-2024 End: 09-03-2024 ambulatory [facility] Work Phone: Start: 09-03-2024 End: 09-03-2024 Patient encounter procedure [facility] Work Phone: Start: 08-09-2024 End: 08-10-2024 Refill Justin Martinez MD Work Phone: [facility] Comment on above: Atherosclerosis of n ative coronary artery of [place] heart without angina pectoris (CMS/HCC) (Primary Dx); Essential hypertension (CMS/HCC) Start: 07-16-2024 End: 07-16-2024 Office outpatient visit 25 minutes Justin Martinez MD Work Phone: [facility] Comment on above: 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, 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) (CMS/HCC) (Primary Dx); Atherosclerosis of [place] coronary artery of [place] heart without angina pectoris (CMS/HCC); Pulmonary hypertension (CMS/HCC); Coronary artery disease due to lipid rich plaque (CMS/HCC); Congestive heart failure due to hypertension (CMS/HCC) Start: 07-16-2024 End: 07-16-2024 ambulatory JUSTIN MARTINEZ Not Available Start: 07-03-2024 End: 07-03-2024 ambulatory [facility] Work Phone: Start: 07-03-2024 End: 07-03-2024 Patient encounter procedure [facility] Work Phone: Start: 06-06-2024 End: 06-06-2024 ambulatory [facility] Work Phone: Start: 06-06-2024 End: 06-06-2024 Patient encounter procedure [facility] Work Phone: Start: 06-04-2024 End: 06-04-2024 Office outpatient visit 25 minutes Justin Martinez MD Work Phone: [facility] Comment on above: Pulmonary hypertensi on (CMS/HCC) (Primary Dx); Coronary artery disease due to lipid rich plaque (CMS/HCC); Congestive heart failure due to hypertension (CMS/HCC) Start: 06-04-2024 End: 06-04-2024 ambulatory JUSTIN MARTINEZ Not Available Start: 06-03-2024 Non-patient / Non-visit [facility] Work Phone: Start: 05-12-2024 End: 05-13-2024 Non-patient / Non-visit [facility] Work Phone: Start: 03-25-2024 End: 03-25-2024 ambulatory JUSTIN MARTINEZ Not Available Start: 03-06-2024 End: 03-06-2024 Patient encounter procedure MD Justin Martinez Work Phone: [facility] [place] Work Phone: Start: 03-06-2024 End: 03-06-2024 ambulatory MD Justin Martinez Work Phone: [facility] Work Phone: Start: 02-27-2024 End: 02-27-2024 ambulatory JUSTIN MARTINEZ Not Available Start: 02-22-2024 End: 02-22-2024 ambulatory MD Justin Martinez Work Phone: [facility] Work Phone: Start: 02-22-2024 End: 02-22-2024 Patient encounter procedure MD Justin Martinez Work Phone: [facility] Nephrology [place] Work Phone: Start: 02-20-2024 End: 02-20-2024 ambulatory JUSTIN MARTINEZ Not Available Start: 02-15-2024 End: 02-15-2024 Patient encounter procedure MD Justin Martinez Work Phone: [facility] [place] Work Phone: Start: 02-15-2024 End: 02-15-2024 ambulatory MD Justin Martinez Work Phone: [facility] Work Phone: Start: 02-14-2024 End: 02-14-2024 Patient encounter procedure MD Justin Martinez Work Phone: [facility] [place] Work Phone: Start: 02-14-2024 End: 02-14-2024 ambulatory Justin Martinez Facility:[facility] Start: 01-26-2024 End: 01-26-2024 Patient encounter procedure MD Justin Martinez Work Phone: [facility] [place] Work Phone: Start: 01-26-2024 End: 01-26-2024 ambulatory MD Justin Martinez Work Phone: [facility] Work Phone: Start: 01-25-2024 End: 01-25-2024 ambulatory [facility] Work Phone: Start: 01-25-2024 End: 01-25-2024 Patient encounter procedure [facility] Nephrology Work Phone: Start: 01-17-2024 Non-patient / Non-visit MD Brandon Martinez [facility] Work Phone: Start: 01-04-2024 End: 01-04-2024 ambulatory JUSTIN MARTINEZ Not Available Start: 06-13-2023 Assay of hemosiderin , quant Justin Martinez MD Work Phone: [facility] Start: 03-16-2023 End: 03-16-2023 ambulatory Magy Emiliano Other [employer] Other Start: 03-16-2023 Office outpatient vi sit 25 minutes Magy Emiliano [facility] [place] Start: 06-01-2022 Office consultation new/estab patient 60 min Justin Martinez Work Phone: [facility] 250 DO Work Phone: Start: 06-01-2022 ambulatory Rashaad Stephens II Facility: Start: 05-30-2022 ambulatory Rashaad Stephens II Faci lity:[facility] Start: 04-21-2022 End: 04-21-2022 ambulatory Magy Emiliano Other [employer] Other Start: 04-21-2022 Office outpatient vi sit 15 minutes Magy Emiliano [facility] [place] Start: 10-05-2021 End: 10-05-[address] JUSTIN MARTINEZ Facility:[facility] Start: 09-29-2021 End: 09-29-2021 ambulatory GOPAL ANAYA Facility:[facility] Start: 09-27-2021 End: 09-28-2021 ambulatory GOPAL ANAYA Facility:[facility] Start: 02-02-2021 End: 02-02-[address] [...] M Juan Work Phone: Endarterectomy [place] [facility] [place] Work Phone: Comment on above: Right carotid; Femoral endarterectomy Rugen M Juan Work Phone: Comment on above: Right- 05/11/2022- 3 stents placed; Hemorrhoidectomy [facility] [place] [facility] Work Phone: Placement of stent Justin Tiwari A lda Work Phone: Procedure on back Justin Tiwari Al da Work Phone: 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 [facility] [place] Work Phone: Repair of retina for retinal detachment [facility] Juan Work Phone: Small intestine excision [facility] [place] Work Phone: Total colonoscopy Justin Tiwari Al da Work Phone: Comment on above: -; Plan of Treatment Date Care Activity Detail Author Start: 11-25-2024 End: 11-25-2024 Patient encounter procedure 11/25/2024 11:00 AM EST Office Visit [facility] [address] [facility] [address] [place] [address] Justin Martinez MD [address] [facility] [address] [place], [place] [id number] [facility] Start: 11-17-2024 Screening for malign ant neoplasm of colon [facility] Start: 11-09-2024 Pneumococcal Vaccine : 65+ Years (3 of 3 - PPSV23 or PCV20) Pneumococcal Vaccine: 65+ Years (3 of 3 - PPSV23 or PCV20) [facility] Comment on above: Postponed from 07/17 (Other Patient Reasons) Start: 10-21-2024 End: 10-21-2024 Patient encounter procedure 10/21/2024 11:00 AM EST Office Visit [facility] [address] [facility] [address] [place] [address] Justin Martinez MD [address] [facility] [address] [place] [address] [facility] Start: 10-20-2024 Administration of prophylactic treatment [facility] Start: 10-20-2024 End: 10-20-2024 [facility] Start: 10-19-2024 Hospital admission [facility] Start: 10-19-2024 [facility] Start: 06-27-2024 End: 06-27-2024 Patient encounter procedure 06/27/2024 1:15 PM EDT Office Visit [facility] [address] [facility] [address] [place] [address] Justin Martinez MD [address] [facility] [address] [place] [address] [facility] Start: 06-16-2024 Influenza vaccination Influenza Vacc ine (#1) [facility] Start: 01-26-2024 [facility] Start: 01-26-2024 Immunofixation for Urine [facility] Start: 1950 Screening for malign ant neoplasm of colon [facility] Albumin [Mass/volume ] in Serum or Plasma [facility] Albumin/Globulin ratio [facility] Electrophoresis: [id number] [facility] Electrophoresis: [id number] [facility] Electrophoresis: beta-globulin [facility] Electrophoresis: yony ma globulin [facility] Globulin [Mass/volum e] in Serum [facility] IgA [Mass/volume] in Serum or Plasma [facility] IgG [Mass/volume] in Serum or Plasma [facility] IgM [Mass/volume] in Serum or Plasma [facility] Immunofixation for Urine [facility] [place] light chains.f ree [Mass/volume] in Serum [facility] [place] light chains.free/Lambda light chains.free [Mass Ratio] in Serum [facility] Lambda light chains. free [Mass/volume] in Serum or Plasma [facility] Natriuretic peptide. B prohormone N-Terminal [Mass/volume] in Serum or Plasma [facility] Patient Education [facility] Work Phone: Patient referral [facility] Work Phone: Protein [Mass/volume ] in Serum or Plasma [facility] Renal function 1999 panel - Serum or Plasma [facility] Renal function 1999 panel - Serum or Plasma [facility] Renal function 1999 panel - Serum or Plasma [facility] Renal function 1999 panel - Serum or Plasma [facility] Serum immunofixation [facility] Immunizations Immunization Date Immunization Notes Care Provider [facility] 08-14-2023 Influenza, Seasonal, Quadrivalent, Adjuvanted Justin Martinez MD Work Phone: [facility] 08-14-2023 influenza virus vacc ine, unspecified formulation Justin Martinez MD Work Phone: [facility] 07-25-2022 Influenza, High-dose Seasonal, Quadrivalent, Preservative Free Justin Martinez MD Work Phone: [facility] 09-01-2021 Pfizer-BioNTech COVI D-19 Vacc 30 MCG/0.3ML Intramuscular Suspension [facility] Work Phone: 07-19-2021 Fluzone High-Dose Quadrivalent 0.7 ML Intramuscular Suspension Prefilled Syringe Justin Martinez Work Phone: [facility] 250 DO Work Phone: 01-05-2021 Pfizer-BioNTech COVI D-19 Vacc 30 MCG/0.3ML Intramuscular Suspension Rugen M Juan Work Phone: [place] [address] DO Work Phone: 12-14-2020 Pfizer-[employer] COVI D-19 Vacc 30 MCG/0.3ML Intramuscular Suspension [place] [facility] [place] Work Phone: [place] [address] DO Work Phone: 08-08-2020 Fluad Quadrivalent 0 .5 ML Intramuscular Prefilled Syringe Rugen M Juan Work Phone: [facility] 10-01-2019 zoster vaccine recombinant Rugen M Juan Work Phone: [place] [address] DO Work Phone: 07-17-2019 pneumococcal conjuga te vaccine, 13 valent [facility] [place] Work Phone: [place] [address] DO Work Phone: 07-17-2019 Seasonal trivalent influenza vaccine, adjuvanted, preservative free Rugen M Juan Work Phone: [place] [address] DO Work Phone: 07-17-2019 zoster vaccine recombinant Rugen M [place] Work Phone: [place] [address] DO Work Phone: 05-23-2019 tetanus toxoid, redu misty diphtheria toxoid, and acellular pertussis vaccine, adsorbed Rugen M [place] Work Phone: [place] [address] DO Work Phone: 07-24-2018 influenza, high dose seasonal, preservative-free Rugen M Juan Work Phone: [place] [address] DO Work Phone: 07-18-2017 influenza, injectabl e, quadrivalent, contains preservative Rugen M Juan Work Phone: [facility] 250 DO Work Phone: 07-13-2017 influenza, high dose seasonal, preservative-free Justin Martinez MD Work Phone: [facility] 07-18-2016 influenza, injectabl e, quadrivalent, preservative free Rugen M [place] Work Phone: [facility] 250 DO Work Phone: 07-17-2015 influenza, seasonal, injectable, preservative free Rugen M [place] Work Phone: [facility] 250 DO Work Phone: 07-30-2012 pneumococcal polysaccharide vaccine, 23 valent Justin Martinez Work Phone: [facility] 250 DO Work Phone: Payers Date Payer Category Payer Private Health Insurance [employer] [place] [id number] 2022 Unknown 2016 Medicare [id number] 2016 Medicare [id number] 2016 Medicare [id number] 1959 Medicare [id number] 1959 Self-pay 1959 Unknown [id number] 1951 Unknown [id number] 2.16.840.1.792909.3.579.2 .593 1951 Unknown [id number] 2.16.840.1.162154.3.579.2 .593 1951 Unknown [id number] 2.16.840.1.304329.3.579.2 .593 1951 Unknown [id number] 2.16.840.1.357330.3.579.2 .593 1950 Unknown [id number] 2.16.840.1.061775.3.579.2 .356 1951 Unknown [id number] 2.16.840.1.182548.3.579.2 .1259 1951 Unknown [id number] 2.16.840.1.785893.3.579.2 .1259 1951 Unknown [id number] 2.16.840.1.192515.3.579.2 .1259 1951 Unknown [id number] 2.16.840.1.210559.3.579.2 .1259 1950 Unknown [id number] 2.16.840.1.430880.3.579.2 .1259 1951 Unknown [id number] 2.16.840.1.104023.3.579.2 .1259 1950 Unknown [id number] 2.16.840.1.846965.3.579.2 .1259 Unknown [id number] 2.16.840.1.683845.3.579.2 .593 Unknown [id number] 2.16.840.1.187864.3.579.2 .593 Unknown [id number] 2.16.840.1.983390.3.579.2 .531 Unknown [id number] 2.16.840.1.971712.3.579.2 .531 Unknown [id number] 2.16.840.1.557826.3.579.2 .531 Unknown [id number] 2.16.840.1.826783.3.579.2 .531 Unknown [id number] 2.16.840.1.745880.3.579.2 .531 Unknown [id number] 2.16.840.1.579308.3.579.2 .531 Unknown [id number] 2.16.840.1.478084.3.579.2 .531 Unknown [id number] 2.16.840.1.341067.3.579.2 .531 Social History Date Type Detail Facility Unknown if ever smoked [facility] [employer] Other Start: 06-13-2023 End: 07-16-2024 Sex Assigned At [facility] [employer] Other Start: 06-13-2023 End: 06-04-2024 Former smoker Former smoker [place] [address] DO Work Phone: Comment on above: Quit in 2015; 3 cups of coffee pola ly; Start: 1950 Sex Assigned At Male [facility] Start: 02-22-2024 End: 10-19-2024 Tobacco smoking status NHIS Ex-smoker (finding) [facility] Start: 10-16-1969 End: 10-16-2014 History of tobacco use Current smoker [facility] Start: 10-16-1969 End: 10-16-2014 History of tobacco use Cigarette Smoker [facility] Start: 06-04-2024 Tobacco use and exposure Smokeless tobacco non-user [facility] Start: 07-16-2024 End: 10-21-2024 Alcoholic beverage intake Ex-drinker (finding) [facility] Start: 03-26-2023 Tobacco Comment Last smoked: 1 -5 years [facility] Start: 03-26-2023 Alcohol Comment Audit-C points :2, Caffeine: more than 4 cups per day [facility] Start: 1950 Sex assigned at Not on file [facility] Start: 09-03-2024 End: 01-14-2025 Sex Male (finding) [facility] Goals Date Patient Goal Desired Activity /State Personal health goal Functional Status Date Assessment Result Facility 10-20-2024 Functional status Patient at Baseline [facility] Work Phone: 10-19-2024 Functional status Functional Sta tus Comment SOB with exertion preventing independent ADL. ;Pt reports weight loss with diuresis and poor appetite and change in diet. 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 Right iliofemoral endarterectomy and patch with ipsilateral anterior saphenous vein. Abdominal Aorticogram with Stenting of right and left limbs. Balloon Angioplasty of the rt external iliac artery. OTHER SURGICAL HISTORY 05/11/2022 Right ext. iliac artery endarterectomy and patch utilizing great saphenous vein, CT LAP,CHOLECYSTECTOMY 01/10/2020 Laparoscopic cholecystectomy, open laparotomy lysis [...] class 3 and CKD stage 4 (HCC) ([facility]) - Primary Consider Entresto BP currently low Lasix resume Watch weight On Jardiance Has O2 but will add portable His O2 sat will drop to 87-88% with minimal exertion. He would benefit from Portable O2 to help with ADLs and IADls Relevant Medications epoetin moni (Epogen) 2000 UNIT/ML injection CKD stage 3b, GFR 30-44 ml/min ([facility]) Fluid status improtant Add Epogen for low hgb 9 with comorbidities of CHF with recent hospitalization Relevant Medications epoetin moni (Epogen) 2000 UNIT/ML injection Anemia in other chronic diseases classified elsewhere Anemia needs treated Relevant Medications epoetin moni (Epogen) 2000 UNIT/ML injection Other Visit Diagnoses CHF (congestive heart failure), NYHA class IV, acute on chronic, diastolic ([facility]) Relevant Medications epoetin moni (Epogen) 2000 [...] Flowsheet Row Patient Outreach from 10/14/2024 in [facility] Information ED, Hospital or Senior Care Facility Discharge? ED Patient has been contacted within 1 week of being seen in the ED Yes Diagnosis abdominal pain Discharge Date 10/09/24 Discharged To: Home Setting Discharge Hospital [facility] Engagement Call Start Time 1028 Admission Date [...] class 3 and CKD stage 4 (HCC) ([facility]) - Primary Consider Entresto BP currently low Lasix resume Watch weight On Jardiance Has O2 but will add portable His O2 sat will drop to 87-88% with minimal exertion. He would benefit from Portable O2 to help with ADLs and IADls Relevant Medications epoetin moni (Epogen) 2000 UNIT/ML injection CKD stage 3b, GFR 30-44 ml/min ([facility]) Fluid status improtant Add Epogen for low hgb 9 with comorbidities of CHF with recent hospitalization Relevant Medications epoetin moni (Epogen) 2000 UNIT/ML injection Anemia in other chronic diseases classified elsewhere Anemia needs treated Relevant Medications epoetin moni (Epogen) 2000 UNIT/ML injection Other Visit Diagnoses CHF (congestive heart failure), NYHA class IV, acute on chronic, diastolic (CMS/HCC) Relevant Medications epoetin moni (Epogen) 2000 UNIT/ML injection Follow up in about 4 weeks (around 11/18/2024). documented in this encounter [facility] 10-20-2024 Discharge summary Note Date/Time October 20, 2024 1:34pm [place] [address] Discharge Summary Signed Patient: Char Alatorre MR#: [id number] : 1950 Acct:[id number] Age/Sex: 73 / M Adm Date: 5 Loc: Room: [address] [place] [address]: Geoff Swann DO Copies to: [...] to 40 mg after speaking with his nurse general duty on the phone. His nurse general duty in [facility] suggested increase Lasix temporarily to 40 mg [...] knows he has to follow-up with his nurse general duty about this issue, and is considering perhaps [...] our local cardiology group or his own nurse general duty outpatient. Patient is feeling better this morning, [...] have anything further to offer him here, kathleen receive a prescription for Metamucil to take daily as he had mentioned constipation lately. I believe his current hypoxia is secondary to his pulmonary hypertension. His nurse general duty is in [facility] as mentioned above, he is interested in [...] % (Auto) 67.5, Lymph % (Auto) 20.1, Gates % (Auto) 10.1, Eos % (Auto) 1.3, Baso % (Auto) 1.0, Nucleat RBC Rel Count 0.0, Neut # (Auto) 3.4, Lymph # (Auto) 1.0, Gates # (Auto) 0.5, Eos # (Auto) 0.1, [...] % (Auto) 72.4, Lymph % (Auto) 16.9, Gates % (Auto) 8.5, Eos % (Auto) 0.8, Baso % (Auto) 1.4, Nucleat RBC Rel Count 0.1, Neut # (Auto) 4.3, Lymph # (Auto) 1.0, Gates # (Auto) 0.5, Eos # (Auto) 0.0, [...] 1334 <Electronically signed by Alix Grimaldo> 10/20/24 3804 [facility] Work Phone: 1(870) 445-408801-05-[address] [address] Discharge Summary Signed Patient: Char Alatorre MR#: [id number] : 1950 Acct:[id number] Age/Sex: 73 / M Adm Date: 5 Loc: Room: [address] [place] [address]: Geoff Swann DO Copies to: [...] oral,to 40 mg after speaking with his nurse general duty on the phone. His nurse general duty in [facility] suggested increase Lasix temporarily to 40 mg [...] knows he has to follow-up with his nurse general duty about this issue, and is considering perhaps [...] our local cardiology group or his own nurse general duty outpatient. Patient is feeling better this morning, and knows he has to have his pulmonary hypertension treated. Patient still has his oxygen athome. Patient was also instructed to follow-up with his primary care gris amanda. Patient and his both agree with this [...] have anything further to offer him here, daveid receive a prescription for Metamucil to take daily as he had mentioned constipation lately. I believe his current hypoxia is secondary to his pulmonary hypertension. His nurse general duty is in [facility] as mentioned above, he is interested in [...] % (Auto) 67.5, Lymph % (Auto) 20.1, Gates % (Auto) 10.1, Eos % (Auto) 1.3, Baso % (Auto) 1.0, Nucleat RBC Rel Count 0.0, Neut# (Auto) 3.4, Lymph # (Auto) 1.0, Gates # (Auto) 0.5, Eos # (Auto) 0.1, [...] % (Auto) 72.4, Lymph % (Auto) 16.9, Gates % (Auto) 8.5, Eos % (Auto) 0.8, Baso % (Auto) 1.4, Nucleat RBC Rel Count 0.1, Neut # (Auto) 4.3, Lymph # (Auto) 1.0, Gates # (Auto) 0.5, Eos # (Auto) 0.0, [...] 1242 Signed By: 10/20/24 1334 10/20/24 1329 [facility]01-04-2025 History and physical note Author Geoff Swann [facility] Note Date/Time October 19, 2024 4: 47pm [facility] [address] [place] [address] Hospitalist H&P Signed Patient: Char Alatorre MR#: [id number] : 1950 Acct:[id number] Age/Sex: 73 / M Adm Date: 5 Loc: Room: [address] [place] [address] Type: ADM IN Attending Dr: Geoff Swann DO Copies to: MD Geoff Barry DO~ HPI DATE OF EXAMINATION: 10/19/24 CHIEF COMPLAINT: shortness of breath HISTORY OF PRESENT ILLNESS: Mr Alatorre is a 73-year-old male with a past medical history of CHF with preserved ejection fraction, hypertension, hyperparathyroidism, hyperlipidemia and AAA who presents hospital with chief, shortness of breath. This apparently started around [place] time. He came to our emergency room [...] mg daily on September 25 per his nurse general duty in [facility]. He recently called and said he is been feeling more shortness of breath and his nurse general duty increased him back to 40 mg daily. [...] negative unless noted below or in HPI [facility] Medical History (Updated 10/19/24 @ 16:42 by Geoff J Swann, DO) Hx of retinal detachment Primary hyperparathyroidism [...] % (Auto) 16.9 % (.) 10/19/24 12:34 Gates % (Auto) 8.5 % (.) 10/19/24 12:34 Eos % (Auto) 0.8 % (.) 10/19/24 12:34 Baso % (Auto) 1.4 % (.) 10/19/24 12:34 Nucleat RBC Rel Count 0.1 /100 WBC (0-0.5) 10/19/24 12:34 Neut # (Auto) 4.3 x10E3/uL (1.8-7.7) 10/19/24 12:34 Lymph # (Auto) 1.0 x10E3/uL (1.00-4.8) 10/19/24 12:34 Gates # (Auto) 0.5 x10E3/uL (0.0-0.8) 10/19/24 12:34 [...] Lasix given today ?He has a primary nurse general duty in [place] however they live here locally in [place] and are interested in switching care to [...] 1633 Signed By: <Electronically signed by Geoff Swann DO> 10/19/24 1647 [facility] Work Phone: 1(133) 703-379501-04-2025 [place] [address] Hospitalist H&P Signed Patient: Char Alatorre MR#: [id number] : 1950 Acct:[id number] Age/Sex: 73 / M Adm Date: 5 Loc: 3T Room: [address] [place] [address] Type: ADM IN Attending Dr: Geoff Swann DO Copies to: MD Geoff Barry DO~ HPI DATE OF EXAMINATION: 10/19/24 CHIEF COMPLAINT: [...] mg daily on September 25 per his nurse general duty in [facility]. He recently called and said he is been feeling more shortness of breath and his nurse general duty increased him back to 40 mg daily. [...] negative unless noted below or in HPI [facility] Medical History (Updated 10/19/24 @ 16:42 by [...] % (Auto) 16.9 % (.) 10/19/24 12:34 Gates % (Auto) 8.5 % (.) 10/19/24 12:34 Eos % (Auto) 0.8 % (.) 10/19/24 12:34 Baso % (Auto) 1.4 % (.) 10/19/24 12:34 Nucleat RBC Rel Count 0.1 /100 WBC (0-0.5) 10/19/24 12:34 Neut # (Auto) 4.3 x10E3/uL (1.8-7.7) 10/19/24 12:34 Lymph # (Auto) 1.0 x10E3/uL (1.00-4.8) 10/19/24 12:34 Gates # (Auto) 0.5 x10E3/uL (0.0-0.8) 10/19/24 12:34 [...] Lasix given today ?He has a primary nurse general duty in [place] however they live here locally in [place] and are interested in switching care to [...] DO 10/19/24 1633 Signed By: 10/19/24 1647 [facility]11-19-2024 Evaluation note* Diagnosis Onset Date Resolution Status [...] CHF (congestive heart failure) acute 2024 3:29pm [facility] Work Phone: 1(575) 785-724811-19-2024 Evaluation note* Diagnosis Onset Date Resolution Status [...] 2024 3:29pm Acute hypoxic respiratory failure ac [place] October 19, 2024 3:29pm Anemia of renal disease acute J anuary 2024 3:29pm CKD (chronic kidney disease) stage 3, GFR 30-59 ml/min acute October 19, 2024 3:29pm Heart failure with preserved ejection fraction acute October 19, 2 025 3:29pm Severe obstructive sleep apnea acute October 19, 2024 3:29pm [facility] Work Phone: 1(203) 985-586711-19-2024 Evaluation note* Diagnosis Onset Date Resolution Status [...] with preserved ejection fraction acute October 19, 3:29pm Severe obstructive sleep apnea acute October 19, 2024 3:29pm Acute exacerbation of CHF (congestive heart failure) resolved ry 2024 3:29pm Acute hypoxic respiratory failure re solved October 19, 2024 3:29pm Chronic respiratory failure with hypoxia acute October 28 11:03am CHRIS (obstructive sleep apnea) acute October 28, 2024 11:03am Pulmonary hypertension acute Ja nuary 2024 11:03am [facility] Work Phone: 1(638) 569-376710-26-2024 Telephone encounter Note* Telephone Encounter - PHILIPPE Carrillo - 08/10/2024 10:26 AM EDT Coreg and Plavix sent. [facility] [id number] Miscellaneous Notes* Telephone Encounter - PHILIPPE Carrillo - 08/10/2024 10:26 AM EDT Coreg and Plavix sent. documented in this encounterScotland County Memorial HospitalHdhrnpyski95-19-5334 History of Present illness Narrative* Justin Martinez [...] AORTIC ANEURYSM REPAIR 2010 CAROTID ENDARTERECTOMY Right 2010 CATARACT EXTRACTION Bilateral 2019 CATARACT EXTRACTION, BILATERAL 2019 COLONOSCOPY 11/2014 Polyps COLONOSCOPY 2018 CORONARY STENT PLACEMENT 05/29/2024 FEMORAL ARTERY STENT Bilateral 2001 Femoral Stent Placement FEMORAL ARTERY STENT Right 01/05/2023 HEMORRHOID SURGERY 1975 KNEE CARTILAGE SURGERY Bilateral meniscus repairs [id number] OTHER SURGICAL HISTORY 1993 Herniated disc L5-S1 OTHER SURGICAL HISTORY 05/11/2022 Right Leg ischemia: Right Groin exploration. Right iliofemoral endarterectomy and patch with ipsilateral anterior saphenous vein. Abdominal Aorticogram with Stenting of right and left limbs. Balloon Angioplasty of the rt external iliac artery. OTHER SURGICAL HISTORY 05/11/2022 Right ext. iliac artery endarterectomy and patch utilizing great saphenous vein, CT LAP,CHOLECYSTECTOMY 01/10/2020 Laparoscopic cholecystectomy, open laparotomy lysis [...] Addressed This Visit Atherosclerotic heart disease of [place] coronary artery without angina pectoris (CMS/HCC) Coronary [...] 3 months (around 10/16/2024). 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 acute June 06, 2024 11:08am CKD (chronic kidney disease) stage 3, GFR 30-59 ml/min acute June 06, 2024 11:08am Hyperlipidemia acute May 11:08am Hyperparathyroidism acute Aug2023 11:08am Hypokalemia acute June 06, 2024 11:08am Nephrolithiasis acute June 062023 11:08am Proteinuria acute June 06, 2024 11:08am Aortic stenosis acute July 03, 2024 10:13am CKD (chronic kidney disease) stage 3, GFR 30-59 ml/min acute 2023 10:13am Nocturnal hypoxia acute Septemb er 2023 10:13am PAD (peripheral artery disease) acut e July 03, 2024 10:13am Pulmonary hypertension acute Se ptember 2023 10:13am Systolic CHF acute July 032023 10:13am [facility] Work Phone: 1(225) 312-696108-22-2024 Evaluation note* Diagnosis Onset Date Resolution Status Admit Date Atrophic kidney acute June 062023 11:08am 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 acute June 06, 2024 11:08am CKD (chronic kidney disease) stage 3, GFR 30-59 ml/min acute June 06, 2024 11:08am Hyperlipidemia acute May 11:08am Hyperparathyroidism acute Augus t 2023 11:08am Hypokalemia acute June 06, [...] 2024 9:28am Systolic CHF acute August 9:28am [facility] Work Phone: 1(776) 852-236508-20-2024 History of Present illness Narrative* Justin Martinez MD - 06/04/2024 10:56 AM EDTAssociated Problem(s): Pulmonary hypertension (CMS/HCC) Check sleep apnea On O2 at night Consider referral Health And Safety Representative Low Sodium Diet 2 grams Weight goal [...] Martinez MD Discharge Information ED, Hospital or Senior Care Facility Discharge? Hospital Patient has been contacted within two business days of discharge Yes Discharge Date 05/13/24 Discharge Hospital [facility] Discharged To: Home Setting Engagement Call Start Time 815 Medications Discharge medications reviewed and reconciled from [...] f/u with cardiology 05/17/24 Call End Time 817 Subjective Patient ID: Char Alatorre is a 73 y.o. male who presents for Hospital Follow-up (New onset heart failure). Pt had went to ER on 05/11 at [facility] stayed till 05/13 and then called his cardio dr and was sent to hospital in [place] from 05/14 to 05/24 Pt did have a heart cath on 05/17 on the right, second one was the did the left and third one on the and also put in one stent Pt did see pulmonary consult and a and p mechanic and he see cardio next week Pt [...] time each day at the same time. Rfunosshxmq-Ntozqmkwi-Blfpme (Trelegy Ellipta) 200-62.5-25 MCG/ACT aerosol powder Inhale [...] Polyps COLONOSCOPY 2018 FEMORAL ARTERY STENT Bilateral 2001 Femoral Stent Placement FEMORAL ARTERY STENT Right 01/05/2023 HEMORRHOID SURGERY 1975 KNEE CARTILAGE SURGERY Bilateral meniscus repairs [id number] OTHER SURGICAL HISTORY 1993 Herniated disc L5-S1 OTHER SURGICAL HISTORY 05/11/2022 Right Leg ischemia: Right Groin exploration. Right iliofemoral endarterectomy and patch with ipsilateral anterior saphenous vein. Abdominal Aorticogram with Stenting of right and left limbs. Balloon Angioplasty of the rt external iliac artery. OTHER SURGICAL HISTORY 05/11/2022 Right ext. iliac artery endarterectomy and patch utilizing great saphenous vein, CT LAP,CHOLECYSTECTOMY 01/10/2020 Laparoscopic cholecystectomy, open laparotomy lysis [...] apnea On O2 at night Consider referral Health And Safety Representative Relevant Orders Ambulatory referral to Sleep Studies Ambulatory referral to Pulmonology Congestive heart failure due to hypertension (CMS/HCC) Increase diligence on weight if weight gain>3 lbs inform us. Consider Jardiance/Farxiga for kidney and heart failure Relevant Orders Ambulatory referral to Sleep Studies Ambulatory referral to Pulmonology No follow-ups on file. documented in this encounterScotland County Memorial [id number] Evaluation note* Encounter Date Diagnosis Assessment Notes [...] oral vitamin D. He follows with Dr. Anaya as well. Mar, Dyslipidemia (ICD-10 - E78.5) Continue statins. Monitor LFTs and lipid profile [employer] Other 07-07-2022 Evaluation note* Encounter Date Diagnosis [...] D. His calcium is back to normal. [employer] Other 06-29-2022 NotePROCEDURE: [employer] Signa HDXT 1.5 Sagittal T1, T2, STIR [...] and signed by Lakhwinder Chappell on 04/13/2022 1153NoSc[facility] Medical SpecialistChief complaint Narrative - ReportedCHAR ALATORRE is being seen for a consultation for [place]- Vasculopath.-[facility] 250 DO Work Phone: Discharge summary Author Geoff Swann [facility] Note Date/Time October 20, 2024 1: 34pm [facility] [address] [place] [address] Discharge Summary Signed Patient: Char Alatorre MR#: [id number] : 1950 Acct:[id number] Age/Sex: 73 / M Adm Date: 5 Loc: 3T Room: [address] [place] [address]: Geoff Swann DO Copies to: [...] to 40 mg after speaking with his nurse general duty on the phone. His nurse general duty in [facility] suggested increase Lasix temporarily to 40 mg [...] knows he has to follow-up with his nurse general duty about this issue, and is considering perhaps [...] our local cardiology group or his own nurse general duty outpatient. Patient is feeling better this morning, [...] have anything further to offer him here, kathleen receive a prescription for Metamucil to take daily as he had mentioned constipation lately. I believe his current hypoxia is secondary to his pulmonary hypertension. His nurse general duty is in [facility] as mentioned above, he is interested in [...] % (Auto) 67.5, Lymph % (Auto) 20.1, Gates % (Auto) 10.1, Eos % (Auto) 1.3, Baso % (Auto) 1.0, Nucleat RBC Rel Count 0.0, Neut # (Auto) 3.4, Lymph # (Auto) 1.0, Gates # (Auto) 0.5, Eos # (Auto) 0.1, [...] % (Auto) 72.4, Lymph % (Auto) 16.9, Gates % (Auto) 8.5, Eos % (Auto) 0.8, Baso % (Auto) 1.4, Nucleat RBC Rel Count 0.1, Neut # (Auto) 4.3, Lymph # (Auto) 1.0, Gates # (Auto) 0.5, Eos # (Auto) 0.0, [...] <Electronically signed by Alix Grimaldo> 10/20/24 1329 [facility] Work Phone: Evaluation noteNo assessment information available [facility] Work Phone: Evaluation note* Diagnosis Onset Date Resolution Status Atrophic kidney acute 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 acu te CKD (chronic kidney disease) stage 3, GFR 30-59 ml/min acute Hyperlipidemia acute Hyperparathyroidism acute Nephrolithiasis acute Proteinuria acute [facility] Work Phone: Evaluation note* Diagnosis Onset Date Resolution Status Atrophic kidney acute 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 acu te CKD (chronic kidney disease) stage 3, GFR 30-59 ml/min acute Hyperlipidemia acute Hyperparathyroidism acute Hypokalemia acute Nephrolithiasis acute Proteinuria acute [facility] Work Phone: Evaluation note* Diagnosis Onset [...] acute Hypokalemia acute Nephrolithiasis acute Proteinuria acute [facility] Work Phone: Evaluation note* Diagnosis Onset Date Resolution Status Atrophic kidney acute 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 acu te CKD (chronic kidney disease) stage 3, GFR 30-59 ml/min acute Glucosuria acute Hyperlipidemia acute Hyperparathyroidism acute Hypokalemia acute Nephrolithiasis acute Proteinuria acute H/O cardiac catheterization noneactive H/O heart artery stent nonea ctive [facility] Work Phone: Evaluation note* Diagnosis 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, 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) (CMS/HCC)- Primary Atherosclerosis of [place] coronary artery of [place] heart without angina pectoris (CMS/HCC) Pulmonary hypertension (CMS/HCC) Other chronic pulmonary heart diseases Coronary artery disease due to lipid rich plaque (CMS/HCC) Congestive heart failure due to hypertension (CMS/HCC) [facility]* Diagnosis Essential hypertension (CMS/HCC)- Primary Unspecified essential hypertension Routine general medical examination at health care facility Routine general medical examination at a health care facility History of smoking 30 or more pack years Atherosclerosis of [place] coronary artery of [place] heart without angina pectoris (CMS/HCC) Peripheral vascular disease (CMS/HCC) Unspecified peripheral vascular disease Right hip pain Pain in joint, pelvic region and thigh Peripheral vascular disease (CMS/HCC)- Primary Unspecified peripheral vascular disease Atherosclerosis of [place] coronary artery of [place] heart without angina pectoris (CMS/HCC) Nonrheumatic aortic [...] stage 4 (HCC) (CMS/HCC)- Primary Atherosclerosis of [place] coronary artery of [place] heart without angina pectoris (CMS/HCC) Pulmonary hypertension (CMS/HCC) Other chronic pulmonary heart diseases Coronary artery disease due to lipid rich plaque (CMS/HCC) Congestive heart failure due to hypertension (CMS/HCC) Atherosclerosis of [place] coronary artery of [place] heart without angina pectoris (CMS/HCC)- Primary Essential hypertension (CMS/HCC) Unspecified essential hypertension documented in this encounter [facility] Healthcare[facility]* Diagnosis Pulmonary hypertension (CMS/HCC)- Primary Other chronic pulmonary heart diseases Coronary artery disease due to lipid rich plaque (CMS/HCC) Congestive heart failure due to hypertension (CMS/HCC) documented in [facility]* Diagnosis Essential hypertension (CMS/HCC)- Primary Unspecified essential hypertension Routine general medical examination at health care facility Routine general medical examination at a health care facility History of smoking 30 or more pack years Atherosclerosis of [place] coronary artery of [place] heart without angina pectoris (CMS/HCC) Peripheral vascular disease (CMS/HCC) Unspecified peripheral vascular disease Right hip pain Pain in joint, pelvic region and thigh Peripheral vascular disease (CMS/HCC)- Primary Unspecified peripheral vascular disease Atherosclerosis of [place] coronary artery of [place] heart without angina pectoris (CMS/HCC) Nonrheumatic aortic valve stenosis Moderate aortic stenosis by prior echocardiogram 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, 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) ([facility]/HCC) Pulmonary emphysema, unspecified emphysema type (CMS/HCC)- Primary Blood loss anemia Acute posthemorrhagic anemia Benign essential hypertension (CMS/HCC) Essential hypertension, benign Nocturia Abnormal glucose tolerance test Impaired glucose tolerance test Medicare annual wellness visit, subsequent Hyperparathyroidism ([facility]/HCC) Hyperparathyroidism, unspecified Vitamin D deficiency Low HDL (under 40) ([facility]/HCC) Swelling of lower extremity Other fatigue 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, 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) ([facility]) Moderate asthma, unspecified whether complicated, unspecified whether persistent (CMS/HCC) 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, 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) ([facility]/HCC)- Primary Essential hypertension (CMS/HCC) Unspecified essential hypertension Peripheral vascular disease ([facility]/HCC) Unspecified peripheral vascular disease Pulmonary emphysema, unspecified emphysema type (CMS/HCC) Pulmonary hypertension (CMS/HCC)- Primary Other chronic pulmonary heart diseases Coronary artery disease due to lipid rich plaque (CMS/HCC) Congestive heart failure due to hypertension (CMS/HCC) 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, 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) ([facility]/HCC)- Primary Atherosclerosis of [place] coronary artery of [place] heart without angina pectoris (CMS/HCC) Pulmonary hypertension (CMS/HCC) Other chronic pulmonary heart diseases Coronary artery disease due to lipid rich plaque (CMS/HCC) Congestive heart failure due to hypertension (CMS/HCC) 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, 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) ([facility]/HCC)- Primary CKD stage 3b, GFR 30-44 ml/min (CMS/HCC) Anemia in other chronic diseases classified elsewhere CHF (congestive heart failure), NYHA class IV, acute on chronic, diastolic (CMS/HCC) documented in this encounter [facility] Author Geoff Swann [facility] Note Date/Time October 19, 2024 4: 47pm [facility] [address] [place] [address] Hospitalist H&P Signed Patient: Char Alatorre MR#: [id number] : 1950 Acct:[id number] Age/Sex: 73 / M Adm Date: 5 Loc: Room: [address] [place] [address] Type: ADM IN Attending Dr: Geoff Swann DO Copies to: MD Geoff Barry, DO~ HPI DATE OF EXAMINATION: 10/19/24 CHIEF COMPLAINT: [...] mg daily on September 25 per his nurse general duty in [facility]. He recently called and said he is been feeling more shortness of breath and his nurse general duty increased him back to 40 mg daily. [...] negative unless noted below or in HPI [facility] Medical History (Updated 10/19/24 @ 16:42 by [...] % (Auto) 16.9 % (.) 10/19/24 12:34 Gates % (Auto) 8.5 % (.) 10/19/24 12:34 Eos % (Auto) 0.8 % (.) 10/19/24 12:34 Baso % (Auto) 1.4 % (.) 10/19/24 12:34 Nucleat RBC Rel Count 0.1 /100 WBC (0-0.5) 10/19/24 12:34 Neut # (Auto) 4.3 x10E3/uL (1.8-7.7) 10/19/24 12:34 Lymph # (Auto) 1.0 x10E3/uL (1.00-4.8) 10/19/24 12:34 Gates # (Auto) 0.5 x10E3/uL (0.0-0.8) 10/19/24 12:34 [...] Lasix given today ?He has a primary nurse general duty in [place] however they live here locally in [place] and are interested in switching care to [...] 1633 Signed By: <Electronically signed by Geoff Swann DO> 10/19/24 1647 [facility] Work Phone: History general Narrative - Reported* [...] PLACEMENT 2001 Surgical History BL MENISCUS REPAIRS [id number] Surgical History ABDOMINAL AORTIC ANEURISM 2010 Surgical [...] ORAL SURGERY 04/20/2022 Hospitalization History SEE ABOVE [employer] Other History general Narrative - Reported* Type [...] PLACEMENT 2001 Surgical History BL MENISCUS REPAIRS [id number] Surgical History ABDOMINAL AORTIC ANEURISM 2010 Surgical [...] LEG STENT 01/05/2023 Hospitalization History SEE ABOVE [employer] Other History of Present illness NarrativePatient is [...] place. He believes he might be in [place] or at [facility] also in [facility]. Because of this we will attempt to obtain all these test results and integrate them into our plan of care. I advised him for the time being treatment of his risk factors of hypertension and hyperlipidemia is adequate and because of this we recommend continued therapy as is. The merits of diet and weight loss were discussed.-[place] [id number] DO Work Phone: Reason for referral (narrative)* Consultation (Routine) - Pending Review Specialty Diagnoses / Procedures Referred By Abdiaziz combs Referred To Contact Pulmonary Disease Diagnoses Pulmonary hypertension (CMS/HCC) Coronary artery disease due to lipid rich plaque (CMS/HCC) Congestive heart failure due to hypertension (CMS/HCC) Procedures CT OFFICE/OUTPATIENT NEW HIGH MDM 60 MINUTES Justin Martinez MD [address] [place] [id number] Shay Muhammad MD [address] [place] [id number] Referral ID Status Reason Start Date Expiration Date Visits Requested Visits Authorized [id number] Pending Review Specialty Services Required 06/04/2024 12/01/2024 1 1 * Consultation (Routine) - Pending Review Specialty Diagnoses / Procedures Referred By Abdiaziz combs Referred To Contact Sleep Medicine Diagnoses Pulmonary hypertension (CMS/HCC) Coronary artery disease due to lipid rich plaque (CMS/HCC) Congestive heart failure due to hypertension (CMS/HCC) Procedures CT OFFICE/OUTPATIENT NEW HIGH MDM 60 MINUTES Justin Martinez MD [address] [place] [id number] Referral ID Status Reason Start Date Expiration Date Visits Requested Visits Authorized [id number] Pending Review Specialty Services Required 06/04/2024 12/01/2024 [...] Complaint RENAL 4 MONTH F/U Ref: Dr. 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 Justice Pulmonary Hypertension Se ptember 2023 10:13am 6 [...] June 06, 2024 11 :08am Ref: Dr. Justice Pulmonary Hypertension Se ptember 2023 10:13am 6 [...] r 2023 10:13am Pulmonary hypertension July 03, 024 10:13am Systolic CHF July 03, 2024 [...] 03, 2024 9:28am Pulmonary hypertension September 03 24 9:28am Severe obstructive sleep apnea September [...] hypoxic respiratory failure Januar y 2024 3:29pm Anemia of renal disease October [...] October 28, 2024 1 1:03am G47.33/titration/possible inspire Januar y 2024 7:27pm Additional Source Comments (unrecognized sect ion and content) No Status Records FoundNo Status Records FoundNo Status Records FoundNo Status Records FoundNo Status Records FoundNo Status Records FoundNo Status Records Found INFORMATION SOURCE (unrecogn ized section and content) DATE CREATED AUTHOR 05/07/2020 [facility] ical [facility] DATE CREATED AUTHOR AUTHOR'S ORGANIZ ATION 10/13/2021 [facility] DATE CREATED AUTHOR AUTHOR'S ORGANIZ ATION 04/14/2022 [facility] dical Specialist DATE CREATED AUTHOR AUTHOR'S ORGANIZ ATION 06/08/2022 [facility] DATE CREATED AUTHOR AUTHOR'S ORGANIZ ATION 08/25/2022 [facility] ical Center DATE CREATED AUTHOR AUTHOR'S ORGANIZ ATION 10/27/2024 [facility] dical Specialists EPIC DATE CREATED AUTHOR AUTHOR'S ORGANIZ ATION 11/08/2024 [facility] ysician Group REASON FOR VISIT (unrecogniz ed [...] May 12, 2024 End: May 13, 2024 Co Founder And Ceo Relationship Specialty Start Date End Date Justin Martinez MD [address] [address] PCP - ACO Reach 03/09/23 Justin Martinez MD [address] [facility] [address] [place] [address] PCP - General 03/24/23 Co Founder And Ceo Relationship Specialty Start Date End Date Justin Martinez MD [address] [facility] [address] [place] [address] PCP - ACO Reach 03/09/23 Justin Martinez MD [address] [facility] [address] [place] [address] PCP - General 03/24/23 Team Status: Inactive Member Role Status Dates Justin Martinez MD Primary Care Provider Active S tart: September 03, 2024 End: September 03, 2024 Magy Cummings MD Attending Provider Active Start : September 03, 2024 End: September 03, 2024 Mary Hallman MD Other Provider Active Start: September 03, 2024 End: September 03, 2024 Co Founder And Ceo Relationship Specialty Start Date End Date Justin Martinez MD [address] [facility] [address] [place] [address] PCP - ACO Reach 03/09/23 Justin Martinez MD [address] [facility] [address] [place] [address] PCP - General 03/24/23 Co Founder And Ceo Relationship Specialty Start Date End Date Justin Martinez MD [address] [facility] [address] [place] [address] PCP - ACO Reach 03/09/23 Justin Martinez MD [address] [facility] [address] [place] [address] PCP - General 03/24/23 Team Status: Active Member Role Status Dates Mary Hallman MD [employer] Active Magy Cummings MD Specialist Active Gopal Anaya MD Specialist Active Donna Villarreal MD Specialist [...] 09, 2024 End: October 09, 2024 Arturo Le MD Emergency Provider Active St art: October 09, 2024 End: October 09, 2024 Team Status: Active Member Role Status Dates Justin Martinez MD Primary Care Provider Active S tart: October 19, 2024 Joel De La Paz DO Emergency Provider Active Start: October 19, 2024 Geoff Swann DO Admit Provider, Atte nding Provider Active Start: October 19, 2024 Team Status: Inactive Member Role Status Dates Justin Martinez MD Primary Care Provider Active S tart: October 19, 2024 End: October 20, 2024 Joel De La Paz DO Emergency Provider Active Start: October 19, [...] BE BASED ON THE PRIMARY CLINICAL RECORDS. [facility] [employer] provides no warranty or guarantee of the accuracy or completeness of information in this document.
[2024-11-12 08:09] VITALS: BP 101/71; PULSE 94; TEMP 36.3; O2SAT 92
[2024-11-12 08:28] LABS: Glucometer 101 mg/dL (74-106)
--- NOTE | 2024-11-12 09:00 | CM.NOTE ---
Rounds made with Dr. Aggarwal, pt will discharge for skilled therapy today. SW spoke to [facility] and they are unable to take pt until tomorrow. is in agreement also for [facility]. SW will reach out to [facility].
--- NOTE | 2024-11-12 09:00 | REH.PTDLY ---
Physical Therapy Daily Note PT Daily Note/Assess Start: 11/09/24 10:20 Freq: Status: Active Protocol: Document 11/12/24 08:53 GEOVANI (Rec[facility]12[facility]24 09[facility]00 [id number] Physical Therapy Daily Note/Assessment Time In 07:54 Time Out 08:11 Subjective pt just waking up upon arrival. was just in room per and pt is being DC to the [facility] today. Therapeutic Exercise 5 Minutes (minutes) Therapeutic Exercise 0 Units Therapeutic Exercise Instructed in standing exs 10x ea with HR, mini squats, Treatment marching, and hip flexion with UE support on RW for improved strength. Therapeutic Activity 11 Minutes (minutes) Therapeutic Activity 1 Units Therapeutic Activity brought new RW in that pt will be using at DC. Comments Sized it to pt. Gait training into restroom CGA 20 feet with cues for turning and for pt to use grab bar on wall when sitting. Pt able to doff pants, needs assistance when donning pants in back. Pt stands at sink for 2 mins to wash hands. Ambulates another 20 feet to chair for short rest break with SpO2 at 94% with no O2 on. Pt ambulates another 100 feet CGA with RW with cues for turning again and cues for pt to reach for chair upon sitting for safety. SpO2 at 89% and then increases to 95% after 2 mins with no O2 on. Nursing in room with pt upon therapy completion. Total Therapy 16 Minutes Total Physical 1 Therapy Units Daily Note Summary Pt needs verbal cues throughout rx with directional changes with gait and when sitting down for safety. Pt has no HR at home on stairs with split level home. Pt is to go to rehab for skilled therapy to become stronger and have improved balance to navigate stairs and have improved safety awareness.
--- NOTE | 2024-11-12 09:15 | P.PN_ITS ---
Progress Note: Subjective Subjective Interval history: Patient does state he feels better today, still has significant weakness with any ambulation. Only able to make short trips without significant weakness and needing to rest, this to be less than 6 feet Exam Constitutional Vital Signs, click to edit/add: Last Vital Signs Temp 97.3 F L 11/12/24 08:09 Pulse 94 H 11/12/24 08:09 Resp 16 11/12/24 08:09 BP 101/71 11/12/24 08:09 Pulse Ox 92 L 11/12/24 08:09 O2 Del Method Room Air 11/12/24 08:09 O2 Flow Rate 2 11/11/24 14:01 Progress Note: Objective Labs Labs: Short CBC 11/12/24 Range/Units 05:36 WBC 8.1 (4.0-11.0) 10^3/uL Hgb 9.8 L (14.0-18.0) g/dL Hct 33.2 L (42.0-54.0) % Plt Count 228 (150-450) 10^3/uL BMP 11/12/24 05:36 Sodium 132 L Potassium 3.7 Chloride 101 Carbon Dioxide 23.7 BUN 39.0 H Creatinine 2.82 H Glucose 106 Calcium 9.6 Liver Function 11/12/24 Range/Units 05:36 Total Bilirubin 1.3 H (0.2-1.0) mg/dL AST 152 H (15-37) U/L ALT 279 H (16-63) U/L Alkaline Phosphatase 313 H (46-116) U/L Albumin 2.3 L (3.4-5.0) g/dL Progress Note: A&P Assessment and Plan (1) VIKY (acute kidney injury): (2) Transaminitis: (3) Fall: Qualifiers: Encounter type: subsequent encounter Qualified Code(s): W19.XXXD - Unspecified fall, subsequent encounter (4) Generalized weakness: (5) Head injury: Qualifiers: Encounter type: subsequent encounter Qualified Code(s): S09.90XD - Unspecified injury of head, subsequent encounter (6) Confusion and disorientation: (7) Chronic respiratory failure with hypoxia: (8) HFrEF (heart failure with reduced ejection fraction): (9) CKD (chronic kidney disease) stage 4, GFR 15-29 ml/min: (10) CAD (coronary artery disease): Qualifiers: Coronary Disease-Associated Artery/Lesion type: [place] artery [place] vs. transplanted heart: [place] heart Associated angina: without angina Qualified Code(s): I25.10 - Atherosclerotic heart disease of [place] coronary artery without angina pectoris (11) Hypertension: Qualifiers: Hypertension type: primary hypertension Qualified Code(s): I10 - Essential (primary) hypertension (12) COPD (chronic obstructive pulmonary disease): Qualifiers: COPD type: unspecified COPD Qualified Code(s): J44.9 - Chronic obstructive pulmonary disease, unspecified (13) Paroxysmal A-fib: (14) HLD (hyperlipidemia): Qualifiers: Hyperlipidemia type: unspecified Qualified Code(s): E78.5 - Hyperlipidemia, unspecified Plan Fall with significant weakness-physical therapy to work with patient today, not stable for discharge to home, requiring rehabilitation for patient safety. Acute elevation in creatinine, 140% above baseline-improved today, but not back to baseline-patient need of IV fluid resuscitation from persisting Transaminitis: Elevated today but improved, no abdominal tenderness Generalized weakness: Likely related to the acute kidney injury and dehydration, but not improving as would expect this is dehydration has improved, need to rehabilitation Head injury: MRI brain normal Confusion and disorientation: MRI normal, good this morning but has still having periods where he is confused Chronic respiratory failure with hypoxia: Maintain current oxygenation HFrEF (heart failure with reduced ejection fraction): Repeat echocardiogram to determine deterioration last echocardiogram 6 months ago, possible decreased cardiac output affecting cerebral flow and affecting altered mental status CKD (chronic kidney disease) stage 4, GFR 15-29 ml/min:-Continue to monitor daily as outlined above CAD (coronary artery disease): Currently without chest pain Hypertension: Stable, continue current medications COPD (chronic obstructive pulmonary disease): Stable continue current medications Paroxysmal A-fib: Good rate control HLD (hyperlipidemia): Continue with current medications Hyponatremia-stable, continue to follow Elevated BNP-this is likely related to his kidney function-is improved today Admission status: Medically necessary treatment, IV hydration, at a reduced rate secondary to chronic combined congestive heart failure, will last more than 2 midnights. Inpatient status. Urinary Catheter Management Urinary Catheter Management Straight: Cath placed during this visit: yes Urethral indwelling: Yes Insertion date: 11/11/24 Insertion time: 03:15
[2024-11-12] MEDS: DOCUSATE SODIUM 100 MG CAPSULE PO (09:23)
[2024-11-12] MEDS: ATORVASTATIN CALCIUM 40 MG TABLET PO (09:23)
[2024-11-12] MEDS: CHOLECALCIFEROL (VITAMIN D3) 25 MCG/1,000 UNITS TABLET 50 MCG PO (09:23)
[2024-11-12] MEDS: CARVEDILOL 3.125 MG TABLET PO (09:23)
[2024-11-12] MEDS: APIXABAN 5 MG TABLET PO (09:23)
[2024-11-12] MEDS: CLOPIDOGREL BISULFATE 75 MG TABLET PO (09:23)
--- NOTE | 2024-11-12 09:53 | SWNOTE1 ---
[facility] does not have a bed until tomorrow. ILYA reached out to [facility] to see if they have openings. Pt is stable for discharge today. ILYA emailed with Su at [facility] and she will know shortly if they have a bed.
--- NOTE | 2024-11-12 09:54 | SWNOTE1 ---
[facility] was pt's second choice.
[2024-11-12 10:50] VITALS: O2SAT 99
--- NOTE | 2024-11-12 10:55 | SWNOTE1 ---
ILYA spoke to Lyric at [facility] and they will have an opening today and will review referral. Referral sent to [facility]. Referral included face sheet, ED note, H&P, provider notes, case management report, wound consult, nursing notes, diagnostic imaging, med list, and PT/OT notes.
[2024-11-12 11:35] LABS: Glucometer 130 mg/dL (74-106)
--- NOTE | 2024-11-12 11:50 | SWNOTE1 ---
[facility] is able to accept. SW let doctor know.
--- NOTE | 2024-11-12 12:40 | SWNOTE1 ---
SW let pt's know that [facility] has accepted. SW asked her about transport and she does want to transport. She did ask SW about the cpap that she is trying to get thru [facility]. She stated that it is not in yet and [facility] had told her that since [facility] [place] that they are not able to continue working on it until he is out. SW to check with [facility]. SW called [facility] and [facility] stated that the only order they have is for home oxygen 2 liters at night. They do not have order for pap machine. SW to let know.
[2024-11-12 12:52] VITALS: BP 114/81; PULSE 86; TEMP 36.7; O2SAT 96
--- NOTE | 2024-11-12 13:02 | SWNOTE1 ---
ILYA let know about pap machine and [facility] stating they don't have an order. ILYA advised to try and reach out to the respiratory therapist she spoke with awhile back and talk to him directly. She is going to see if she has his number if not possibly reach out to Dr. Ochoa's office again to have them re-send order. At this point there is nothing else that can be done with pap machine. will transport to [facility] shortly. ILYA sent dc med rec to [facility] and ILYA completed [facility] online. Nurse is aware of transporting. Pt is going skilled to [facility].
--- NOTE | 2024-11-12 13:11 | P.DS_ITS ---
DS: Providers Provider Date of admission: 11/07/24 17:04 Primary care physician: JUSTIN OCHOA Consults: 11/07/24 16:41 Occupational Therapy Eval and Treat Routine Reason for consultation: Ambulatory dysfunction/weakness Physical Therapy Eval and Treat Routine Reason for consultation: Ambulatory dysfunction/weakness 11/08/24 10:07 Consult to TeleNeurology Routine Reason for consultation: Confusion DS: Diagnosis Discharge Diagnosis (1) VIKY (acute kidney injury): (2) Transaminitis: (3) Fall: Qualifiers: Encounter type: subsequent encounter Qualified Code(s): W19.XXXD - Unspecified fall, subsequent encounter (4) Generalized weakness: (5) Head injury: Qualifiers: Encounter type: subsequent encounter Qualified Code(s): S09.90XD - Unspecified injury of head, subsequent encounter (6) Confusion and disorientation: (7) Chronic respiratory failure with hypoxia: (8) HFrEF (heart failure with reduced ejection fraction): (9) CKD (chronic kidney disease) stage 4, GFR 15-29 ml/min: (10) CAD (coronary artery disease): Qualifiers: Coronary Disease-Associated Artery/Lesion type: [place] artery [place] vs. transplanted heart: [place] heart Associated angina: without angina Qualified Code(s): I25.10 - Atherosclerotic heart disease of [place] coronary artery without angina pectoris (11) Hypertension: Qualifiers: Hypertension type: primary hypertension Qualified Code(s): I10 - Essential (primary) hypertension (12) COPD (chronic obstructive pulmonary disease): Qualifiers: COPD type: unspecified COPD Qualified Code(s): J44.9 - Chronic obstructive pulmonary disease, unspecified (13) Paroxysmal A-fib: (14) HLD (hyperlipidemia): Assessment and plan: Fall with significant weakness-physical therapy to work with patient today, not stable for discharge to home, requiring rehabilitation for patient safety. Acute elevation in creatinine, 140% above baseline-improved today, but not back to baseline-patient need of IV fluid resuscitation from persisting Transaminitis: Elevated today but improved, no abdominal tenderness Generalized weakness: Likely related to the acute kidney injury and dehydration, but not improving as would expect this is dehydration has improved, need to rehabilitation Head injury: MRI brain normal Confusion and disorientation: MRI normal, good this morning but has still having periods where he is confused Chronic respiratory failure with hypoxia: Maintain current oxygenation HFrEF (heart failure with reduced ejection fraction): Repeat echocardiogram to determine deterioration last echocardiogram 6 months ago, possible decreased cardiac output affecting cerebral flow and affecting altered mental status CKD (chronic kidney disease) stage 4, GFR 15-29 ml/min:-Continue to monitor daily as outlined above CAD (coronary artery disease): Currently without chest pain Hypertension: Stable, continue current medications COPD (chronic obstructive pulmonary disease): Stable continue current medications Paroxysmal A-fib: Good rate control HLD (hyperlipidemia): Continue with current medications Hyponatremia-stable, continue to follow Elevated BNP-this is likely related to his kidney function-is improved today Admission status: Medically necessary treatment, IV hydration, at a reduced rate secondary to chronic combined congestive heart failure, will last more than 2 midnights. Inpatient status. Qualifiers: Hyperlipidemia type: unspecified Qualified Code(s): E78.5 - Hyperlipidemia, unspecified DS: Summary Hospital Course Hospital Course: Patient admitted with status post fall and increasing weakness. Some alteration in mental status as well. MRI scan of the brain was completed which showed no stroke, he also had elevation in his liver function test, those were improving at the time of discharge his mental status has stabilized but still altered at times. This morning he thought he was in a grocery store, but then reoriented quickly and recalled his reorientation. Patient still with difficulty ambulating secondary to the increasing weakness. Does have supplemental oxygen requirement at home 2 L pulmonary hypertension, some mild hyponatremia, kidney function up some but overall better and would maintain off of diuretics and Jardiance. Medication see list. Follow-up PCP after rehab Time Spent with Patient Time attestation: Total time spent providing and/or coordinating discharge services: Exam Constitutional Vital Signs, click to edit/add: Last Vital Signs Temp 98.0 F 11/12/24 12:52 Pulse 86 11/12/24 12:52 Resp 16 11/12/24 12:52 BP 114/81 11/12/24 12:52 Pulse Ox 96 11/12/24 12:52 O2 Del Method Room Air 11/12/24 12:52 O2 Flow Rate 2 11/12/24 10:50 Documenting provider has reviewed patient's vital signs: yes Common normals: no apparent distress (At rest) Lymph Lymphatic: no lymphadenopathy noted Chest Common normals: inspection of chest normal Respiratory Common normals: normal respiratory effort, no retractions and clear to auscultation bilaterally Cardio Common normals: regular rate and regular rhythm GI Common normals: Normal to inspection, nondistended, normoactive bowel sounds present and soft to palpation Extremity Common normals: normal to inspection, full ROM, normal capillary refill and no clubbing, cyanosis or edema DS: Data Data Completed and Pending Labs on day of discharge: Labs from last 24 hours 11/12/24 11/12/24 11/12/24 11:34 08:27 05:36 WBC 8.1 RBC 4.28 L Hgb 9.8 L Hct 33.2 L MCV 77.6 L MCH 22.9 L MCHC 29.5 L RDW 17.2 H Plt Count 228 MPV 9.1 L Neut % (Auto) 74.4 Lymph % (Auto) 13.8 L [place] % (Auto) 10.6 Eos % (Auto) 0.2 L Baso % (Auto) 0.6 Neut # (Auto) 6.0 Lymph # (Auto) 1.1 L [place] # (Auto) 0.9 H Eos # (Auto) 0.0 Baso # (Auto) 0.1 Abs Immat Gran (auto) 0.03 Imm/Tot Granulo (auto) 0.4 Sodium 132 L Potassium 3.7 Chloride 101 Carbon Dioxide 23.7 Anion Gap 11.0 BUN 39.0 H Creatinine 2.82 H Est GFR ( Amer) 27 L Est GFR (Non-Af Amer) 22 L BUN/Creatinine Ratio 13.8 Glucose 106 Calcium 9.6 Total Bilirubin 1.3 H AST 152 H ALT 279 H Alkaline Phosphatase 313 H Total Protein 6.2 L Albumin 2.3 L Globulin 3.9 Albumin/Globulin Ratio 0.6 POC Glucose 130 H 101 11/11/24 21:04 WBC RBC Hgb Hct MCV MCH MCHC RDW Plt Count MPV Neut % (Auto) Lymph % (Auto) [place] % (Auto) Eos % (Auto) Baso % (Auto) Neut # (Auto) Lymph # (Auto) [place] # (Auto) Eos # (Auto) Baso # (Auto) Abs Immat Gran (auto) Imm/Tot Granulo (auto) Sodium Potassium Chloride Carbon Dioxide Anion Gap BUN Creatinine Est GFR ( Amer) Est GFR (Non-Af Amer) BUN/Creatinine Ratio Glucose Calcium Total Bilirubin AST ALT Alkaline Phosphatase Total Protein Albumin Globulin Albumin/Globulin Ratio POC Glucose 109 H Discharge Plan Discharge Disposition: Xfer [facility] Discharge Medications: Continued Eliquis 5 mg tablet 5 mg PO BID atorvastatin 40 mg tablet 40 mg PO DAILY nortriptyline 25 mg capsule 50 mg PO .QHS ergocalciferol (vitamin D2) 1,000 unit capsule 50 mcg PO DAILY Patient Comments: 2000IU daily clopidogrel 75 mg tablet 75 mg PO DAILY carvedilol 3.125 mg tablet 3.125 mg PO Q12H ferrous sulfate 325 mg (65 mg iron) tablet 325 mg PO DAILY cyanocobalamin (vitamin B-12) 1,000 mcg/mL solution 1,000 mcg IM .monthly Citrucel 500 mg tablet 2 g PO DAILY Discontinued Jardiance 10 mg tablet 10 mg PO DAILY furosemide 40 mg tablet 40 mg PO DAILY Print Language: [place] [employer]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 Ochoa on 11/14/24 at 1:15pm, phone number is [phone]
--- OUTSIDE RECORDS SUMMARY | 2024-11-22 07:36 | XMS_ITS | CCD ---
Author Organization [facility] Care Team Providers Care Global Cmo Name Role Phone JUAN, DR ANDERSON Primary Care Unavailable REQUEST, DR HILL LISTED Admitting Unavaila ble REQUEST, DR HILL LISTED Attending Unavaila ble REQUEST, DR HILL LISTED Consulting Unavaila ble JUAN, DR ANDERSON Primary Care Unavailable REQUEST, NONE LISTED Admitting Unavaila ble REQUEST, NONE LISTED Attending Unavaila ble REQUEST, DR HILL LISTED Consulting Unavaila ble VILLASENOR, DR CHAR Majano Attending Unavailable VILLASENOR, DR CHAR Majano Admitting Unavailable VILLASENOR, DR CHAR Majano Consulting Unavailable JUAN, DR ANDERSON Primary Care Unavailable Herbie Castellanos Consulting Unavailable JUAN, DR ANDERSON Primary Care [...] Unavailable MD Justin Martinez Primary Care Provider [phone] MD Magy Cummings Attending Provider [phone] Justin Martinez MD Unavailable Justin Martinez MD Primary Care Provider [phone] Justin Martinez MD Primary Care Provider [phone] Magy Cummings MD Attending Provider Viji MARTINEZ, Mary Tyler Other Provider Arturo Le MD Emergency Provider Joel De La Paz DO Emergency Provider Geoff Swann DO Admit Provider [phone] Geoff Swann DO Attending Provider JUAN, RUGEN M Attending Unavailable JUAN, RUGEN M Attending Unavailable JUAN, RUGEN M Referring Unavailable JUAN, RUGEN M Attending Unavailable JUAN, RUGEN M Attending Unavailable JUAN, RUGEN M Attending Unavailable JUAN, RUGEN M Attending Unavailable Phil MARTINEZ, Donna Sawyer Referring Provider Trav Anand MD Attending Provider Lisco, Rugen M Primary Care Unavailable Emiliano, Magy Admitting Unavailable Emiliano, Magy Attending Unavailable Emiliano, Magy Attending Unavailable Emiliano, Magy Admitting Unavailable Juan, Rugen M Primary Care Unavailable Emiliano, Magy Attending Unavailable Emiliano, Magy Admitting Unavailable Lisco, Rugen M Primary Care Unavailable NON STAFF Referring Unavailable Mary Hallman Consulting Unavailable Emiliano, Magy Attending Unavailable Emiliano, Magy Admitting Unavailable Juan, Rugen M Primary Care Unavailable Arturo Le Admitting Unavailable Arturo Le Attending Unavailable Juan, Rugen M Primary Care Unavailable Lisco, Rugen M Primary Care Unavailable Samsa, Canelo P Referring Unavailable Prashant Mosqueda Admitting Unavailable Prashant Mosqueda Attending Unavailable Geoff Swann Admitting Unavailable Geoff Swann Attending Unavailable Lisco, Rugen M Primary Care Unavailable Lisco, Rugen M Primary Care Unavailable Emiliano, Magy Admitting Unavailable Emiliano, Magy Attending Unavailable JUAN, RUGEN M Referring Unavailable JUAN, RUGEN M Primary Care Unavailable JUAN, RUGEN M Primary Care Unavailable INPATIENT, TELENEUROLOGY Consulting Unavail able ABAD MONTERO Consulting Unavailable Panda MD, Prashant N. Attending Provider Canelo Teran DO Referring Provider [phone] Jasson MARTINEZ, Odalsy Attending Provider [phone] Turner Knott DO Admit Provider Turner Knott DO Attending Provider Jason MARTINEZ, Kelly Other Provider Tanesha KEANE, Maria E Other Provider Unavailable eDlaney MARTINEZ, Med Other Provider Trae MARTINEZ, Chase Ohara Other Provider Jasson MARTINEZ, Odalys Other Provider Juan MARTINEZ, Justin Tiwari Primary Care Provider Medications Current Medications Medication Drug Class(es) Dates Sig (Normalized) Sig (Original) acetaminophen 325 mg / HYDROcodone bitartrate 5 mg oral tablet (1 source) Opioid Agonist Start: 01-06-2020 take 1-2 tablets by mouth every six hours HYDROcodone-aceta minophen (NORCO) 5-325 mg per tablet TAKE 1 TO 2 TABLETS BY MOUTH EVERY 6 HOURS 01/06/2020 Active amLODIPine 10 mg oral tablet (20 sources) Dihydropyridine Calcium Channel Rosario Start: 03-25-2024 End: 06-04-2024 take 0.5 tablet by mouth once daily amLODIPine (Norvasc) 10 MG tablet Indications: Essential hypertension ([facility]) Take 0.5 tablets (5 mg) by mouth [...] 2024 11:42am June 06, 2024 11:33am Start: 11-23-2019 take 1 tablet by kaylene th once [...] PO Twice daily January 24, 2024 11:00pm atorvastatin 20 mg oral tablet (20 sources) HMG-CoA Reductase Inhibitor Start: 11-20-2024 take 1 tablet by mouth once daily Atorvastatin 20 mg tablet Active 20 MG PO Daily November 20, 2024 12:00am Start: 11-09-2023 End: 11-20-2024 take 1 tablet by mouth once daily Atorvastatin 40 mg tablet Discontinued 40 MG PO Daily February 22, 2024 10:26am November 20, 2024 9:40am Start: 11-30-2019 take 1 tablet by kaylene once daily Atorvastatin Calcium 10 MG Oral Tablet take 1 tablet by mouth once daily Quantity: 90 Refills: 3 Ordered: 01-Jun-2022 Rashaad Stephens MD Start : 05-Jul-2021 Active take 1 tablet by kaylene every twenty-four hours Atorvastatin Calcium 40 MG 1 tablet Orally Once a day Active carvedilol 3.125 mg oral tablet (20 sources) [...] 2024 10:27am cholecalciferol (Vitamin D-3) 50 MCG (2000 UT) tablet 1 (one) time each day at the same time. Active take 1 capsule by mouth once pola ly Vitamin D 50 MCG (2000 UT) Oral Capsule TAKE 1 CAPSULE Daily Quantity: 0 Refills: 0 Ordered: 01-Jun-2022 DO Active chondroitin sulfates 1200 mg / glucosamine sulfate 1500 mg oral capsule (9 sources) Glucosamine-Jeremy droitin 500-400 MG capsule Glucosamine Chondro Complex Active clopidogrel 75 mg oral tablet (20 sources) P2Y12 Platelet Inhibitor Start: 2023 End: 2023 take 1 tablet by mouth once daily Clopidogrel (Plavix) 75 mg tablet Active 75 MG PO Daily June 05, 2024 11:00pm 1 ml epoetin moni-epbx 4000 unt/ml injection (6 sources) Erythropoiesis- stimulating Agent Start: 2024 End: 2024 inject 1 mL by subcutaneous injection three times weekly epoetin moni-epbx (Retacrit) 4000 UNIT/ML injection Indications: Anemia due to stage 4 chronic kidney disease (CMS/HCC) Inject 1 mL (4,000 Units) under the skin 3 (three) times a week 16.5 mL 11/13/2024 12/13/2024 Active Start: 10-21-2024 End: 11-20-2024 epoetin moni (Epogen) 2000 U NIT/ML injection Indications: 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, 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) (CMS/HCC) , CKD stage 3b, GFR 30-44 ml/min ([facility]) , Anemia in other chronic diseases classified elsewhere , CHF (congestive heart failure), NYHA class IV, acute on chronic, diastolic ([facility]) Inject 1 mL (2,000 Units) under the skin 3 (three) times a week Patient has GFR 31, And had hospitalization for CHF on 10/19/2024 12 mL 2 10/21/2024 11/20/2024 Active ezetimibe 10 mg oral tablet (2 sources) Dietary Cholesterol Absorption Inhibitor Start: 11-20-2024 take 1 tablet by mouth once daily Ezetimibe (Zetia) 10 mg tablet Active 10 MG PO Daily November 20, 2024 12:00am ferrous sulfate 325 mg oral tablet (11 sources) Start: 09-16-2024 take 1 tablet by mouth every other [...] 0 Refills: 0 Ordered: 01-Jun-2022 DO Active Fjsztaaiemw-Ngpvxxogl-Xbirlo (Trelegy Ellipta) 200-62.5-25 MCG/ACT aerosol powder (2 sources) Start: 03-25-2024 End: 06-04-2024 take 1 puff(s) by inhalation once daily Czqstlmwoin-Bfuoamevx-Fsojlm (Trelegy Ellipta) 200-62.5-25 MCG/ACT aerosol powder Indications: Pulmonary emphysema, unspecified emphysema type ([facility]) Inhale 1 puff Daily 3 each 1 03/25/2024 06/04/2024 Discontinued (Other) furosemide 20 mg oral tablet (20 sources) Loop Diure tic Start: 11-20-2024 take 1 tablet by mouth once daily Furosemide 20 mg tablet Active 20 MG PO Daily November 20, 2024 12:00am Start: 07-03-2024 End: 11-20-2024 take 1 tablet by mouth once daily Furosemide 40 mg tablet Discontinued 40 MG PO Daily July 02, 2024 11:00pm November 20, 2024 9:42am On Hold: Resume taking when your weight trends up or your legs become swollen Start: 05-13-2024 End: 09-12-2024 take 1 tablet by mouth once daily as needed Furosemide 20 mg tablet Discontinued 20 MG PO Daily as needed June 05, 2024 11:00pm July 03, 2024 9:31am Glucosamine Chond Cmp Double - (1 source) Glucosamine Jeremy d Cmp Double - as directed Orally twice a day Active methylcellulose 2000 mg powd er for oral suspension (20 sources) Start: 06-06-2024 Methylcellulos e (With Sugar) 2 gram/19 gram powder Active [...] by mouth Daily 05/13/2024 06/04/2024 Discontinued (Other) ondansetron 4 mg disintegrating oral tablet (1 source) Serotonin-3 Receptor Antagonist Start: 01-06-2020 ondansetron ODT (ZOFRAN-ODT) 4 mg disintegrating tablet DISSOLVE 1 TABLET on the tongue EVERY 8 HOURS NEEDED 01/06/2020 Active penicillin v potassium 500 mg oral tablet (1 source) take 1 tablet by mouth every six hours Penicillin V Potassium 500 MG 1 tablet Orally FOUR TIMES A DAY Active psyllium 3400 mg powder for oral suspension (5 sources) Start: 10-20-2024 Psyllium Husk (Aspartame) (Metamucil Fiber Singles) 3.4 gram Powder In Packet Active 1 PACKET PO Daily October 20, 2024 12:00am Trelegy Ellipta 100 mcg (1 source) take 1 puff(s) by inhalation once daily as needed Trelegy Ellipta 100 mcg 1 puff Inhalation Once a day prn Active vitamin b12 1 mg/ml injectable solution (18 sources) Vitamin B12 Start: 10-15-2024 inject 1000 ug by intramuscular injection every month Cyanocobalamin (Vitamin B-12) 1,000 mcg/mL solution Active 1000 MCG IM .monthly October 19, 2024 12:00am Start: 07-03-2024 End: 10-21-2024 Cyanocobalamin 1000 MCG/15ML liquid every month 07/03/2024 10/21/2024 Discontinued (Other) Vitamin D (Cholecalciferol) 50 MCG (1999) (2 sources) take 1 capsule by mouth once daily Vitamin D (Cholecalciferol) 50 MCG (1999) 1 capsule Orally Once a day Active [...] 0 Refills: 0 Ordered: 01-Jun-2022 DO Active empagliflozin 10 mg oral tablet (16 sources) Sodium-Glucose Cotransporter 2 Inhibitor Start: 07-03-20 End: 11-20-19 take 1 tablet by mouth once daily Empagliflozin (Jardiance) 10 mg tablet Discontinued 10 MG PO Daily July 02, 2024 11:00pm November 20, 2024 9:45am Fluticasone-Umeclidin -Vilanter (12 sources) Start: 02-22-20 End: 08-22-20 24 Fluticasone-Umeclidin -Vilanter (Trelegy Ellipta) 200-62.5-25 mcg blister with device Discontinued 1 INH INHALATION Daily February 21, 2024 11:00pm June 06, 2024 10:34am Start: 02-22-2024 End: 06-06-2024 Ocvaysytlfa-Dkpzwjzvf-Evtbip er (Trelegy Ellipta) 200-62.5-25 mcg blister with device Discontinued 1 INH INHALATION Daily February 22, 2024 12:00am June 06, 2024 11:34am Start: 02-22-2024 Fluticasone-Um eclidin-Vilanter (Trelegy Ellipta) 200-62.5-25 mcg blister with device Active 1 INH INHALATION Daily February 22, 2024 12:00am lisinopril 20 mg oral tablet (20 sources) Angiotensin Converting Enzyme Inhibitor Start: 01-25-2024 End: 01-25-2024 take 1 tablet by mouth once daily Lisinopril 20 mg tablet Discontinued 1 TAB PO Daily January 24, 2024 11:00pm January 25, 2024 3:01pm FreeTextSi tablet Orally Once a day; Note: Source Status: Taking; Provider: Emiliano Bhatti ( ) Start: 08-16-2021 take 1 tablet by kaylene once daily Lisinopril 20 MG Oral Tablet Take 1 tablet daily Quantity: 0 Refills: 0 Ordered: 12-May-2022 DO Start : 16-Aug-2021 Active Start: 11-23-2019 take 1 tablet by kaylene th twice daily lisinopriL (PRINIVIL,ZESTRIL) 20 mg tablet Take 20 mg by mouth 2 (two) times a day. 11/23/2019 Active nitroglycerin 0.4 mg sublingual tablet (18 sources) Nitrate Vasodilator Start: 06-20-2024 End: 11-20-2024 Nitroglycerin 0.4 mg tablet, sublingual Discontinued 0.4 MG SUBLINGUAL Q5M as needed for angina June 19, 2024 11:00pm November 20, 2024 9:45am Start: 05-23-2024 nitroglycerin (Nitrostat) 0.4 MG SL tablet 05/23/2024 Active nortriptyline 25 mg oral capsule (20 [...] FreeTextSi capsule Orally Once a day at [facility]; Note: Source Status: Taking; Provider: Emiliano Bhatti [...] DAYS 200 capsule 3 11/09/2023 Active Start: 11-23-2019 take 1 capsule by mo uth twice daily Nortriptyline HCl - 25 MG Oral Capsule TAKE 1 CAPSULE BY MOUTH TWICE A DAY FOR 90 DAYS Quantity: 180 Refills: 0 Ordered: 27-Mar-2022 DO Start : 01-Oct-2021 Active take 2 capsules by m out once daily at bedtime Nortriptyline HCl 25 MG 2 capsule Orally Once a day at [facility] Active potassium chloride 20 meq extended release oral tablet (13 sources) Start: 01-27-2024 End: 02-22-2024 take 1 tablet by mouth once daily Potassium Chloride 20 mEq tablet extended release Discontinued 20 MEQ PO Daily 90 January 26, 2024 11:00pm February 22, 2024 10:42am rivaroxaban 2.5 mg oral tablet (18 sources) Factor Xa Inhibitor Start: 01-25-2024 End: [...] mg tablet Discontinued 25 MG PO Daily February 22, 2024 11:24am June 06, 2024 10:34am Problems Active Problems Problem Classification Problem Date Documented Da te Episodic/Chronic Abdominal pain (11 sources) Unspecified abdominal pain; Translations: [Abdominal pain] Onset: 02-02-2021 Episodic Acute and unspecified renal failure (3 sources) Acute renal failure syndrome; Translations: [Acute kidney failure, unspecified] 11-20-2024 Episodic Calculus of urinary tract (20 sources) Kidney stone; Translations: [Calculus of kidney] Onset: 04-21-2022 Resolved: 04-21-2022 Episodic Chronic kidney disease (20 sources) Chronic kidney disease, unspecified; Translations: [Chronic kidney disease stage 3] Onset: 09-29-2021 Chronic Chronic kidney disease (4 sources) Chronic kidney disease; Translations: [Chronic kidney disease, stage 3 unspecified] Onset: 04-21-2022 Resolved: 04-21-2022 Chronic obstructive pulmonary disease and bronchiectasis (18 sources) Emphysematous bronchitis; Translations: [Chronic bronchitis with COPD (chronic obstructive pulmonary disease)] Onset: 03-24-2023 03-24-2023 Chronic Congestive heart failure; nonhypertensive (20 sources) Congestive heart failure; Translations: [Unspecified systolic (congestive) heart failure] Onset: 10-19-2024 07-03-2024 Chronic Coronary atherosclerosis and other heart disease (20 sources) Coronary atherosclerosis; Translations: [Atherosclerotic heart disease of [place] coronary artery without angina pectoris] Onset: 03-24-2023 07-16-2024 Chronic Coronary atherosclerosis and other heart disease (1 source) Presence of coronary angioplasty implant and graft; Translations: [Percutaneous transluminal coronary angioplasty status] 06-06-2024 Episodic Deficiency and other anemia (6 sources) Anemia of chronic disease; Translations: [Anemia in other chronic diseases classified elsewhere] Onset: 10-21-2024 10-21-2024 Chronic Deficiency and other anemia (1 source) Anemia in chronic kidney disease; Translations: [Anemia in chronic kidney disease] Onset: 10-19-2024 Chronic Diabetes mellitus without complication (20 sources) Glycosuria; Translations: [Glycosuria] Onset: 03-25-2024 02-22-2024 Episodic Diseases of white blood cells (9 sources) Leukocytosis; Translations: [Elevated white blood cell count, unspecified] Onset: 03-24-2023 03-24-2023 Chronic Disorders of lipid metabolism (20 sources) Pure hypercholesterolemia , unspecified; Translations: [Hyperlipidemia] Onset: 02-04-2021 Chronic Diverticulosis and diverticulitis (9 sources) Diverticulosis of colon; Translations: [Diverticulosis of large intestine without perforation or abscess without bleeding] Onset: 03-24-2023 03-24-2023 Chronic Esophageal disorders (9 sources) Gastro-esophageal reflux disease with esophagitis; Translations: [Reflux esophagitis] Onset: 03-24-2023 03-24-2023 Chronic Essential hypertension (12 sources) Essential (primary) hypertension; Translations: [Benign essential hypertension] Onset: 02-04-2021 03-24-2023 Chronic Fluid and electrolyte disorders (20 sources) Hypokalemia; Translations: [Hypokalemia] Onset: 03-06-2024 01-28-2024 Episodic Genitourinary symptoms and ill-defined conditions (20 sources) Proteinuria; Translations: [Proteinuria, unspecified] Onset: 02-14-2024 01-25-2024 Episodic Heart valve disorders (20 sources) Aortic [...] Onset: 04-21-2022 Resolved: 04-21-2022 Chronic Nutritional deficiencies (10 sources) Vitamin D deficiency, unspecified; Translations: [Vitamin D deficiency] Onset: 10-02-2021 03-24-2023 Chronic Osteoporosis (1 source) Age-related osteoporosis without current pathological fracture; Translations: [AGE-REL OSTEOPOR W/O CURR PATH FX] Onset: 10-02-2021 Chronic Other endocrine disorders (20 sources) Hyperparathyroidism, unspecified; Translations: [Hyperparathyroidism , unspecified] Onset: 10-02-2021 Resolved: 04-21-2022 Chronic Other endocrine disorders (2 sources) Primary hyperparathyroidism; Translations: [Primary hyperparathyroidism] Chronic Other endocrine disorders (20 sources) Hyperparathyroidism; Translations: [Hyperparathyroidism , unspecified] Onset: 03-24-2023 01-25-2024 Chronic Other endocrine disorders (9 sources) Disorder of parathyroid gland; Translations: [Disorder of parathyroid gland, unspecified] Onset: 03-24-2023 03-24-2023 Chronic Other lower respiratory disease (1 source) Shortness of breath; Translations: [Shortness of breath] Onset: 10-19-2024 Episodic Other male genital disorders (9 sources) Drug-induced erectile dysfunction; Translations: [Impotence of organic origin] Onset: 03-24-2023 03-24-2023 Chronic Other nutritional; endocrine; and metabolic disorders (2 sources) Hypercalcemia; Translations: [Hypercalcemia] Chronic Other nutritional; endocrine; and metabolic disorders (1 source) Hypercalcemia Onset: 04-21-2022 Resolved: 04-21-2022 Chronic Other nutritional; endocrine; and metabolic disorders (9 sources) Cholesterol level - finding; Translations: [Lipoprotein [...] Onset: 06-04-2024 07-16-2024 Chronic Residual codes; unclassified (8 sources) Hypoxia; Translations: [Idiopathic sleep related nonobstructive alveolar hypoventilation] 07-03-2024 Chronic Residual codes; unclassified (9 sources) Idiopathic sleep related nonobstructive alveolar hypoventilation; Translations: [Idiopathic sleep related non-obstructive alveolar hypoventilation] 07-03-2024 Chronic Residual codes; unclassified (11 sources) Obstructive sleep apnea syndrome; Translations: [Obstructive sleep apnea (adult) (pediatric)] 09-03-2024 Chronic Residual codes; unclassified (20 sources) Obstructive sleep apnea (adult) (pediatric); Translations: [Obstructive sleep apnea (adult)(pediatric)] Onset: 10-28-2024 09-03-2024 Chronic Residual codes; unclassified (1 source) Other specified postprocedural states; Translations: [Other postprocedural status] 06-06-2024 Episodic Residual codes; unclassified (1 source) Pain, unspecified; Translations: [Pain, unspecified] Onset: 11-09-2024 Episodic Respiratory failure; insufficiency; arrest (adult) (10 sources) Chronic hypoxemic respiratory failure; Translations: [Chronic respiratory failure with hypoxia] 10-28-2024 Chronic Respiratory failure; insufficiency; arrest (adult) (11 sources) Acute respiratory failure; Translations: [Acute respiratory failure with hypoxia] 10-19-2024 Episodic Unclassified (1 source) COUGH, UNSPECIFIED; Translations: [COUGH, UNSPECIFIED] Onset: 10-12-2021 Unclassified (1 source) CONTACT W/AND (SUSP) EXPOS COVID-19; Translations: [CONTACT W/AND (SUSP) EXPOS COVID-19] Onset: 02-04-2021 Unclassified (9 sources) Patient on antidepressant monitoring plan Onset: 11-09-2023 11-09-2023 Unclassified (9 sources) Baseline PHQ-9 Onset: 11-09-2023 11-09-2023 Unclassified (1 source) [place], Inpatient, Confusion Onset: 11-08-2024 Past or Other Problems Problem Classification Problem Date Documented Da te Episodic/Chronic Malaise and fatigue (13 sources) Other fatigue; Translations: [Fatigue] Onset: 10-05-2021 Episodic Other aftercare (1 source) FPC (current) use of aspirin; Translations: [DETENTION CURRENT USE OF ASPIRIN] Onset: 02-04-2021 Episodic Other aftercare (1 source) Other terminal superintendent (current) drug therapy; Translations: [OTH AUTOMOBILE RENTAL REPRESENTATIVE CURRENT DRUG THERAPY] Onset: 02-04-2021 Episodic Other bone disease and musculoskeletal deformities (9 sources) Osteopenia; Translations: [Other specified disorders of bone density and structure, unspecified site] Onset: 03-24-2023 03-24-2023 Episodic Other circulatory disease (1 source) Personal history of transient ischemic attack (TIA), and cerebral infarction without residual deficits; Translations: [PERS HX TIA AND CI NO RESID DEFICIT] Onset: 02-04-2021 Episodic Other connective tissue disease (9 sources) Swelling of lower limb; Translations: [Other specified soft tissue disorders] Onset: 02-20-2024 02-20-2024 Episodic Other diseases of kidney and ureters (1 source) Disorder of kidney and ureter, unspecified; Translations: [DISORDER KIDNEY AND URETER UNS] Onset: 02-04-2021 Episodic Other gastrointestinal disorders (9 sources) Constipation; Translations: [Constipation, unspecified] Onset: 03-24-2023 03-24-2023 Episodic Other gastrointestinal disorders (9 sources) Esophageal dysphagia; Translations: [Other dysphagia] Onset: 03-24-2023 03-24-2023 Episodic Other non-traumatic joint disorders (7 sources) Hip pain; Translations: [Pain in right hip] Onset: 06-13-2023 06-13-2023 Episodic Other non-traumatic joint disorders (2 sources) Pain in right hip joint; Translations: [Pain in right hip] Onset: 06-13-2023 06-13-2023 Episodic Residual codes; unclassified (1 source) Acquired absence of other specified parts of digestive tract; Translations: [ACQ ABSENCE OTH PART DIGESTV TRACT] Onset: 02-04-2021 Episodic Residual codes; unclassified (9 sources) Insomnia; Translations: [Insomnia, unspecified] Onset: 03-24-2023 03-24-2023 Episodic Retinal detachments; defects; vascular occlusion; and retinopathy (9 sources) Retinal detachment; Translations: [Serous retinal detachment, unspecified eye] Onset: 03-24-2023 03-24-2023 Episodic Screening and history of mental health and substance abuse codes (11 sources) Personal history of nicotine dependence; Translations: [Ex-smoker] Onset: 02-04-2021 06-13-2023 Episodic Comment on above: Quit in 2014; Results Test Name Value Interpretation Reference Range Facility Alanine aminotransferase [En zymatic activity/volume] in Serum or PlasmaOrdered By: Turner Knott on 11-20-2024 ALT [Catalytic activity/Vol] Alanine aminotransferase [Enzymatic activity/volume] in Serum or Plasma High 7-52 [facility] Albumin [Mass/volume] in Ser um or Plasma by Bromocresol green (BCG) dye binding methoOrdered By: Turner Knott on 11-20-2024 Albumin BCG dye [Mass/Vol] Albumin [Mass/volume] in Serum or Plasma by Bromocresol green (BCG) dye binding metho Low 3.5-5.7 [facility] Alkaline phosphatase [Enzyma tic activity/volume] in Serum or PlasmaOrdered By: Turner Knott on 11-20-2024 ALP [Catalytic activity/Vol] Alkaline phosphatase [Enzymatic activity/volume] in Serum or Plasma High 34-104 [facility] Aspartate aminotransferase [ Enzymatic activity/volume] in Serum or PlasmaOrdered By: Turner Knott on 11-20-2024 AST [Catalytic activity/Vol] Aspartate aminotransferase [Enzymatic activity/volume] in Serum or Plasma High 13-39 [facility] Basophils Auto (Bld) [#/Vol] Ordered By: Turner Knott on 11-20-2024 Basophils (Bld) [#/Vol] Automated basophil count 0.0-0.2 [facility] Basophils/100 WBC Auto (Bld) Ordered By: Turner Knott on 11-20-2024 Basophils/100 WBC (Bld) Automated basophil % . [facility] Bilirubin.direct [Mass/volum e] in Serum or PlasmaOrdered By: Turner Knott on 11-20-2024 Bilirubin.direct [Mass/Vol] Bilirubin.direct [Mass/volume] in Serum or Plasma High 0.03-0.18 [facility] Bilirubin.total [Mass/volume ] in Serum or PlasmaOrdered By: Turner Knott on 11-20-2024 Bilirubin [Mass/Vol] Bilirubin.total [Mass/volume] in Serum or Plasma High 0.3-1.0 [facility] Comment on above: Samples from patient s who have taken Naproxen have shown spurious elevation in Total Bilirubin levels. A metabolite of Naproxen, O-desmethylnaproxen, has been shown to interfere with the Lenny-Myke method for measuring Total Bilirubin. Calcium [Mass/volume] in Ser um or PlasmaOrdered By: Turner Knott on 11-20-2024 Calcium [Mass/Vol] Calcium [Mass/volume ] in Serum or Plasma 8.6-10.3 [facility] Carbon dioxide, total [Moles /volume] in Serum or PlasmaOrdered By: Turner Knott on 11-20-2024 CO2 [Moles/Vol] Carbon dioxide, tota l [Moles/volume] in Serum or Plasma 21.0-31.0 [facility] Chloride [Moles/volume] in S zoey or PlasmaOrdered By: Turner Knott on 11-20-2024 Chloride [Moles/Vol] Chloride [Moles/vol ume] in Serum or Plasma 98-107 [facility] Creatinine [Mass/volume] in Serum or PlasmaOrdered By: Turner Knott on 11-20-2024 Creatinine [Mass/Vol] Creatinine [Mass/v olume] in Serum or Plasma High 0.70-1.30 [facility] Eosinophils Auto (Bld) [#/Vo l]Ordered By: Turner Knott on 11-20-2024 Eosinophils (Bld) [#/Vol] Automated eosinophil count 0.0-0.45 [facility] Eosinophils/100 WBC Auto (Bl d)Ordered By: Turner Knott on 11-20-2024 Eosinophils/100 WBC (Bld) Automated eosinophil % . [facility] Erythrocyte distribution wid th Auto (RBC) [Ratio]Ordered By: Turner Knott on 11-20-2024 Erythrocyte distribution width (RBC) [Ratio] Erythrocyte distribution width [Ratio] by Automated count High 12.0-14.8 [facility] Globulin Calc (S) [Mass/Vol] Ordered By: Turner Knott on 11-20-2024 Globulin (S) [Mass/Vol] Serum globulin measurement by calculation (mass/volume) [facility] Glucose [Mass/volume] in Ser um or PlasmaOrdered By: Turner Knott on 11-20-2024 Glucose [Mass/Vol] Glucose [Mass/volume ] in Serum or Plasma High 70-100 [facility] Comment on above: ADA recommended refe rence rangeRandom Glucose Reference Range is dependent on time and content of last meal. Glucose of more than 200 mg/dL in a nonstressed, ambulatory subject supports the diagnosis of Diabetes Mellitus. Hematocrit Auto (Bld) [Volum e fraction]Ordered By: Turner Knott on 11-20-2024 Hematocrit (Bld) [Volume fraction] Hematocrit [Volume Fraction] of Blood by Automated count Low 38.8-50.0 [facility] Hemoglobin [Mass/volume] in BloodOrdered By: Turner Knott on 11-20-2024 Hemoglobin (Bld) [Mass/Vol] Hemoglobin [Mass/volume] in Blood Low 13.0-17.0 [facility] INR in Platelet poor plasma by Coagulation assayOrdered By: Turner Knott on 11-20-2024 INR Coag (PPP) [Relative time] INR in Platelet poor plasma by Coagulation assay [facility] Comment on above: INR Therapeutic Rang e A) Pre- and Peroperative OAT started two weeks before surgery. NOT HIP SURGERY: 1.5 - 2.5 HIP SURGERY: 2 - 3B) Primary and secondary prevention of venous THROMBOSIS: 2 - 3C) Active venous thrombosis, pulmonary embolismand prevention of recurrent venous thrombosis: 2 - 3D) Prevention of arterial thromboembolismincluding patients with mechanical heart valves: 3 - 4.5 Leukocytes [#/volume] correc anna for nucleated erythrocytes in Blood by Automated counOrdered By: Turner Knott on 11-20-2024 WBC corrected for nucl RBC Auto (Bld) [#/Vol] Leukocytes [#/volume] corrected for nucleated erythrocytes in Blood by Automated coun 4.1-10.5 [facility] Lymphocytes Auto (Bld) [#/Vo l]Ordered By: Turner Knott on 11-20-2024 Lymphocytes (Bld) [#/Vol] Lymphocytes [#/volume] in Blood by Automated count Low 1.00-4.8 [facility] Lymphocytes/100 WBC Auto (Bl d)Ordered By: Turner Knott on 11-20-2024 Lymphocytes/100 WBC (Bld) Lymphocytes/100 leukocytes in Blood by Automated count . [facility] MCH Auto (RBC) [Entitic mass ]Ordered By: Turner Knott on 11-20-2024 MCH (RBC) [Entitic mass] MCH [Entitic mass] by Automated count Low 27.5-35.2 [facility] MCHC Auto (RBC) [Mass/Vol]Or dered By: Turner Knott on 11-20-2024 MCHC (RBC) [Mass/Vol] MCHC [Mass/volume] by Automated count Low 32.5-35.6 [facility] MCV Auto (RBC) [Entitic vol] Ordered By: Turner Knott on 11-20-2024 MCV (RBC) [Entitic vol] MCV [Entitic volume] by Automated count Low 83.5-101 [facility] Magnesium [Mass/volume] in S zoey or PlasmaOrdered By: Turner Knott on 11-20-2024 Magnesium [Mass/Vol] Magnesium [Mass/vol ume] in Serum or Plasma 1.9-2.7 [facility] Monocytes Auto (Bld) [#/Vol] Ordered By: Turner Knott on 11-20-2024 Monocytes (Bld) [#/Vol] Automated blood monocyte count 0.0-0.8 [facility] Monocytes/100 WBC Auto (Bld) Ordered By: Turner Knott on 11-20-2024 Monocytes/100 WBC (Bld) Automated monocyte % . [facility] Natriuretic peptide B [Mass/ Vol]Ordered By: Turner Knott on 11-20-2024 Natriuretic peptide B (Bld) [Mass/Vol] BNP ser/plas High 5-100 [facility] Neutrophils Auto (Bld) [#/Vo l]Ordered By: Turner Knott on 11-20-2024 Neutrophils (Bld) [#/Vol] Neutrophils [#/volume] in Blood by Automated count 1.8-7.7 [facility] Neutrophils/100 WBC Auto (Bl d)Ordered By: Turner Knott on 11-20-2024 Neutrophils/100 WBC (Bld) Automated neutrophil % . [facility] No Panel InformationOrdered By: Turner Knott on 11-20-2024 Estimated GFR (CKD-EPI) 21.060 mL/Min [facility] Pharmacy Creatinine Clearance (Chem N/A [facility] Nucleated erythrocytes [Pres ence] in Blood by Automated countOrdered By: Turner Knott on 11-20-2024 Nucleated RBC Auto Ql (Bld) Nucleated erythrocytes [Presence] in Blood by Automated count 0-0.5 [facility] Platelet mean volume Auto (B ld) [Entitic vol]Ordered By: Turner Knott on 11-20-2024 Platelet mean volume (Bld) [Entitic vol] Platelet mean volume [Entitic volume] in Blood by Automated count 6.6-10.1 [facility] Platelets Auto (Bld) [#/Vol] Ordered By: Turner Knott on 11-20-2024 Platelets (Bld) [#/Vol] Platelets [#/volume] in Blood by Automated count 150-450 [facility] Potassium [Moles/volume] in Serum or PlasmaOrdered By: Turner Knott on 11-20-2024 Potassium [Moles/Vol] Potassium [Moles/v olume] in Serum or Plasma 3.5-5.1 [facility] Protein [Mass/volume] in Ser um or PlasmaOrdered By: Turner Knott on 11-20-2024 Protein [Mass/Vol] Protein [Mass/volume ] in Serum or Plasma Low 6.4-8.9 [facility] Prothrombin time (PT)Ordered By: Turner Knott on 11-20-2024 PT Coag (PPP) [Time] Prothrombin time (PT) High 9.0- 12.9 [facility] Comment on above: A hematocrit value g reater than 55% may lead to inaccurate results in coagulation testing. Patients having hematocrit values >55% require a special collection tube for coagulation studies. Please contact the laboratory at [phone] for redraw instructions. RBC Auto (Bld) [#/Vol]Ordere d By: Turner Knott on 11-20-2024 RBC (Bld) [#/Vol] Erythrocytes [#/volu me] in Blood by Automated count 3.90-5.60 [facility] Serum or plasma albumin/glob ulin mass ratioOrdered By: Turner Knott on 11-20-2024 Albumin/Globulin [Mass ratio] Serum or plasma albumin/globulin mass ratio [facility] Serum or plasma anion gap de terminationOrdered By: Turner Knott on 11-20-2024 Anion gap [Moles/Vol] Serum or plasma an ion gap determination 6.0-15.0 [facility] Serum or plasma non-glucuron idated bilirubin measurement (mass/volume)Ordered By: Turner Knott on 11-20-2024 Bilirubin.indirect [Mass/Vol] Serum or plasma non-glucuronidated bilirubin measurement (mass/volume) [facility] Sodium [Moles/volume] in Ser um or PlasmaOrdered By: Turner Knott on 11-20-2024 Sodium [Moles/Vol] Sodium [Moles/volume ] in Serum or Plasma Low 136-145 [facility] Urea nitrogen [Mass/volume] in Serum or PlasmaOrdered By: Turner Knott on 11-20-2024 Urea nitrogen [Mass/Vol] Urea nitrogen [Mass/volume] in Serum or Plasma High 7-25 [facility] WBC Auto (Bld) [#/Vol]Ordere d By: Turner Knott on 11-20-2024 WBC (Bld) [#/Vol] Leukocytes [#/volume ] in Blood by Automated count 4.1-10.5 [facility] aPTT in Platelet poor plasma by Coagulation assayOrdered By: Turner Knott on 11-20-2024 aPTT Coag (PPP) [Time] Activated partial thromboplastin time (aPTT) in platelet poor plasma by coagulation a High 25.1-36.5 [facility] Comment on above: A hematocrit value g reater than 55% may lead to inaccurate results in coagulation testing. Patients having hematocrit values >55% require a special collection tube for coagulation studies. Please contact the laboratory at [phone] for redraw instructions. ITPon 11-12-2024 [place] [address] Cardiac Rehab Report Signed Patient: CHAR ALATORRE MR#: [id number] : 1950 Acct:[id number] Age/Sex: 73 / M ADM Date: 10/23/24 Loc: CR Attending Dr: Non-Staff Physician Kamini Ordering Physician: Pepe Hernandez D.O. Date of Service: 11/12/24 Procedure(s): ITP Accession Number(s): [id number] cc: [facility] Test Date: 2024-11-12 Pat Name: CHAR ALATORRE Department: Room: - Gender: Male Animal Sticker: : 1950 Requested By: PEPE HERNANDEZ Order Number: [id number] Reading MD: PEPE HERNANDEZ Interpretive Statements Session Date: Electronically Signed On 11-12-2024 20:09:15 EST by PEPE HERNANDEZ Dictated By: Pepe Hernandez D.O. Signed By: 11/12/24200811/12/242008 DD/ 0859 TD/TT: Art Dealer: [facility], Radiologmary simon MD - 11/12/2024 [place] [address] Cardiac Rehab Report Signed Patient: CHAR ALATORRE MR#: [id number] : 1950 Acct:[id number] Age/Sex: 73 / M ADM Date: 10/23/24 Loc: CR Attending Dr: Non-Staff Physician Kamini Ordering Physician: Pepe Hernandez D.O. Date of Service: 11/12/24 Procedure(s): ITP Accession Number(s): [id number] cc: [facility] Test Date: 2024-11-12 Pat Name: CHAR ALATORRE Department: Room: - Gender: Male Animal Sticker: : 1950 Requested By: PEPE HERNANDEZ Order Number: [id number] Reading MD: PEPE HERNANDEZ Interpretive Statements Session Date: Electronically Signed On 11-12-2024 20:09:15 EST by PEPE HERNANDEZ Dictated By: Pepe Hernandez D.O. Signed By: 11/12/24200811/12/242008 DD/ TD/TT: Art Dealer: [facility] Radiology Study observation (narrative) [facility] ITPOrdered By: Radiologist R adiology on 11-12-2024 [facility] Work Phone: A1C with Estimated Average [facility] 10-20-2024 Glucose [Mass/Vol] 88 mg/dL Normal [facility] Comment on above: Result Comment: PERF ORMED BY: [place] [address] PATHOLOGIST [employer] GRANT SCHNEIDER M.D. Performed By: #### P TH #### [address] HbA1c (Bld) [Mass fraction] 4.7 % Normal 4.3-5.6 [facility] Comment on above: Result Comment: Incr eased risk for diabetes: 5.7 - 6.4 diabetes: >6.4 glycemic control for adults with diabetes: <7.0 Performed By: #### P TH #### [address] Basic Metabolic Panelon Anion gap [Moles/Vol] 9.2 mmol/L Normal 6.0-15.0 [facility] Comment on above: Performed By: #### P TH #### [address] Calcium [Mass/Vol] 9.5 mg/dL Normal 8.6-10.3 [facility] Comment on above: Performed By: #### P TH #### [address] Chloride [Moles/Vol] 101 mmol/L Normal 98-107 [facility] Comment on above: Performed By: #### P TH #### [address] CO2 [Moles/Vol] 31.1 mmol/L High 21.0-31.0 [facility] Comment on above: Performed By: #### P TH #### [address] Creatinine [Mass/Vol] 2.13 mg/dL High 0.70-1.30 [facility] Comment on above: Performed By: #### P TH #### [address] Creatinine Clr Calc Pharmacy 34.36 Normal [facility] Comment on above: Performed By: #### P TH #### [address] Estimated GFR 32.274 mL/Min Normal [facility] Comment on above: Performed By: #### P TH #### [address] Glucose [Mass/Vol] 96 mg/dL Normal 70-100 [facility] Comment on above: Result Comment: [place] Glucose Reference Range is dependent on time and content of last meal. Glucose of more than 200 mg/dL in a nonstressed, ambulatory subject supports the diagnosis of Diabetes Mellitus. ADA recommended reference range Performed By: #### P TH #### [address] Potassium [Moles/Vol] 3.3 mmol/L Low 3.5-5.1 [facility] Comment on above: Performed By: #### P TH #### [address] [place] [address] [place] Sodium [Moles/Vol] 138 mmol/L Normal 136-145 [facility] Comment on above: Performed By: #### P TH #### [facility] [address] Urea nitrogen [Mass/Vol] 24 mg/dL Normal 7-25 [facility] Comment on above: Performed By: #### P TH #### [facility] [address] Basophils Auto (Bld) [#/Vol] Ordered By: Geoff Swann on 10-20-2024 Basophils (Bld) [#/Vol] Automated basophil count 0.0-0.2 [facility] Basophils/100 WBC Auto (Bld) Ordered By: Geoff Swann on 10-20-2024 Basophils/100 WBC (Bld) Automated basophil % . [facility] Blood estimated average gluc ose determination by estimation from glycated hemoglobinOrdered By: Geoff Swann on 10-20-2024 Average glucose Estimated from glycated hemoglobin (Bld) [Mass/Vol] Glucose mean value [Mass/volume] in Blood Estimated from glycated hemoglobin [facility] Calcium [Mass/volume] in Ser um or PlasmaOrdered By: Geoff Swann on 10-20-2024 Calcium [Mass/Vol] Calcium [Mass/volume ] in Serum or Plasma 8.6-10.3 [facility] Carbon dioxide, total [Moles /volume] in Serum or PlasmaOrdered By: Geoff Swann on 10-20-2024 CO2 [Moles/Vol] Carbon dioxide, tota l [Moles/volume] in Serum or Plasma High 21.0-31.0 [facility] Chloride [Moles/volume] in S zoey or PlasmaOrdered By: Geoff Swann on 10-20-2024 Chloride [Moles/Vol] Chloride [Moles/vol ume] in Serum or Plasma 98-107 [facility] Cholesterol [Mass/volume] in Serum or PlasmaOrdered By: Geoff Swann on 10-20-2024 Cholesterol [Mass/Vol] Cholesterol [Mass /volume] in Serum or Plasma Low 140-200 [facility] Comment on above: Chol less than 200 m g/dl low riskChol 201-239 mg/dl borderline riskChol 240 mg/dl and greater high risk Cholesterol in HDL [Mass/vol ume] in Serum or PlasmaOrdered By: Geoff Swann on 10-20-2024 Cholesterol in HDL [Mass/Vol] Serum or plasma high density lipoprotein (HDL) cholesterol measurement 23- [facility] Comment on above: HDL CHOL ATP-III CLA SSIFICATION Cardiovascular RiskHDL > or equal to 60 mg/dL LOWHDL < 40 mg/dL HIGH Cholesterol in LDL Calc [Mas s/Vol]Ordered By: Geoff Swann on 10-20-2024 Cholesterol in LDL [Mass/Vol] Cholesterol in LDL [Mass/volume] in Serum or Plasma by calculation 0-100 [facility] Comment on above: LDL ATP III CLASSIFI CATIONLDL less than 100 mg/dL OptimalLDL 100-129 mg/dL Near or above optimalLDL 130-159 mg/dL Borderline highLDL 160-189 mg/dL HighLDL greater than 189 mg/dL Very high Cholesterol in VLDL Calc [Ma ss/Vol]Ordered By: Geoff Swann on 10-20-2024 Cholesterol in VLDL [Mass/Vol] Cholesterol in VLDL [Mass/volume] in Serum or Plasma by calculation [facility] Complete Blood Count Auto Di ffon 10-20-2024 Basophils (Bld) [#/Vol] 0.1 10*3/uL Normal 0.0-0.2 [facility] Comment on above: Result Comment: PERF ORMED BY: [place] [address] PATHOLOGIST [employer] GRANT SCHNEIDER M.D. Performed By: #### A DDONUAPLUS #### [facility] [address] [place] [address] [place] Basophils/100 WBC (Bld) 1.0 % Normal . [facility] Comment on above: Performed By: #### A DDONUAPLUS #### [facility] [address] [place] [address] [place] Eosinophils (Bld) [#/Vol] 0.1 10*3/uL Normal 0.0-0.45 [facility] Comment on above: Performed By: #### A DDONUAPLUS #### [address] Eosinophils/100 WBC (Bld) 1.3 % Normal . [facility] Comment on above: Performed By: #### A DDONUAPLUS #### [address] Erythrocyte distribution width (RBC) [Ratio] 17.5 % High 12.0-14.8 [facility] Comment on above: Performed By: #### A DDONUAPLUS #### [address] Hematocrit (Bld) [Volume fraction] 27.9 % Low 38.8-50.0 [facility] Comment on above: Performed By: #### A DDONUAPLUS #### [address] Hemoglobin (Bld) [Mass/Vol] 9.0 g/dL Low 13.0-17.0 [facility] Comment on above: Performed By: #### A DDONUAPLUS #### [address] Lymphocytes (Bld) [#/Vol] 1.0 10*3/uL Normal 1.00-4.8 [facility] Comment on above: Performed By: #### A DDONUAPLUS #### [address] Lymphocytes/100 WBC (Bld) 20.1 % Normal . [facility] Comment on above: Performed By: #### A DDONUAPLUS #### [address] MCH (RBC) [Entitic mass] 24.2 pg Low 27.5-35.2 [facility] Comment on above: Performed By: #### A DDONUAPLUS #### [address] MCV (RBC) [Entitic vol] 75.2 fL Low 83.5-101 [facility] Comment on above: Performed By: #### A DDONUAPLUS #### [address] Mean Corpuscular HGB Conc 32.2 g/dL Low 32.5-35.6 [facility] Comment on above: Performed By: #### A DDONUAPLUS #### [address] Monocytes (Bld) [#/Vol] 0.5 10*3/uL Normal 0.0-0.8 [facility] Comment on above: Performed By: #### A DDONUAPLUS #### [address] Monocytes/100 WBC (Bld) 10.1 % Normal . [facility] Comment on above: Performed By: #### A DDONUAPLUS #### [address] Neutrophils (Bld) [#/Vol] 3.4 10*3/uL Normal 1.8-7.7 [facility] Comment on above: Performed By: #### A DDONUAPLUS #### [address] Neutrophils/100 WBC (Bld) 67.5 % Normal . [facility] Comment on above: Performed By: #### A DDONUAPLUS #### [address] NRBC% 0.0 /100{WBC} Normal 0-0.5 [facility] Comment on above: Performed By: #### A DDONUAPLUS #### [address] Platelet mean volume (Bld) [Entitic vol] 6.9 fL Normal 6.6-10.1 [facility] Comment on above: Performed By: #### A DDONUAPLUS #### [address] Platelets (Bld) [#/Vol] 235 10*3/uL Normal 150-450 [facility] Comment on above: Performed By: #### A DDONUAPLUS #### [facility] [address] RBC (Bld) [#/Vol] 3.71 10*6/uL Low 3.90-5.60 [facility] Comment on above: Performed By: #### A DDONUAPLUS #### [facility] [address] [place] [id number] [facility] WBC (Bld) [#/Vol] 5.0 10*3/uL Normal 4.1-10.5 [facility] Comment on above: Performed By: #### A DDONUAPLUS #### [facility] [address] [place] [id number] [facility] Creatinine [Mass/volume] in Serum or PlasmaOrdered By: Geoff Swann on 10-20-2024 Creatinine [Mass/Vol] Creatinine [Mass/v olume] in Serum or Plasma High 0.70-1.30 [facility] Eosinophils Auto (Bld) [#/Vo l]Ordered By: Geoff Swann on 10-20-2024 Eosinophils (Bld) [#/Vol] Automated eosinophil count 0.0-0.45 [facility] Eosinophils/100 WBC Auto (Bl d)Ordered By: Geoff Swann on 10-20-2024 Eosinophils/100 WBC (Bld) Automated eosinophil % . [facility] Erythrocyte distribution wid th Auto (RBC) [Ratio]Ordered By: Geoff Swann on 10-20-2024 Erythrocyte distribution width (RBC) [Ratio] Erythrocyte distribution width [Ratio] by Automated count High 12.0-14.8 [facility] Glucose [Mass/volume] in Ser um or PlasmaOrdered By: Geoff Swann on 10-20-2024 Glucose [Mass/Vol] Glucose [Mass/volume ] in Serum or Plasma 70-100 [facility] Comment on above: ADA recommended refe rence rangeRandom Glucose Reference Range is dependent on time and content of last meal. Glucose of more than 200 mg/dL in a nonstressed, ambulatory subject supports the diagnosis of Diabetes Mellitus. Hematocrit Auto (Bld) [Volum e fraction]Ordered By: Geoff Swann on 10-20-2024 Hematocrit (Bld) [Volume fraction] Hematocrit [Volume Fraction] of Blood by Automated count Low 38.8-50.0 [facility] Hemoglobin A1c/Hemoglobin.to shin in BloodOrdered By: Geoff Swann on 10-20-2024 HbA1c (Bld) [Mass fraction] Hemoglobin A1c percentage 4.3-5.6 [facility] Comment on above: Increased risk for d iabetes: 5.7 - 6.4diabetes: >6.4glycemic control for adults with diabetes: <7.0 Hemoglobin [Mass/volume] in BloodOrdered By: Geoff Swann on 10-20-2024 Hemoglobin (Bld) [Mass/Vol] Hemoglobin [Mass/volume] in Blood Low 13.0-17.0 [facility] Leukocytes [#/volume] correc anna for nucleated erythrocytes in Blood by Automated counOrdered By: Geoff Swann on 10-20-2024 WBC corrected for nucl RBC Auto (Bld) [#/Vol] Leukocytes [#/volume] corrected for nucleated erythrocytes in Blood by Automated coun 4.1-10.5 [facility] Lipid Panelon 10-20-2024 Cholesterol [Mass/Vol] 79 mg/dL Low 140-200 [facility] Comment on above: Result Comment: Chol less than 200 mg/dl low risk Chol 201-239 mg/dl borderline risk Chol 240 mg/dl and greater high risk Performed By: #### P TH #### [facility] [address] Cholesterol in HDL [Mass/Vol] 26 mg/dL Normal 23-92 [facility] Comment on above: Result Comment: HDL CHOL ATP-III CLASSIFICATION Cardiovascular Risk HDL > or equal to 60 mg/dL LOW HDL < 40 mg/dL HIGH Performed By: #### P TH #### [facility] [address] Cholesterol.total/Chol esterol in HDL [Mass ratio] 3.0 {ratio} Normal <5.0 [facility] Comment on above: Result Comment: PERF ORMED BY: [facility] [address] [place] [address] PATHOLOGIST [employer] GRANT SCHNEIDER M.D. Performed By: #### P TH #### [address] LDL Cholesterol,Calculated 35 mg/dL Normal 0-100 [facility] Comment on above: Result Comment: LDL ATP III CLASSIFICATION LDL less than 100 mg/dL Optimal LDL 100-129 mg/dL Near or above optimal LDL 130-159 mg/dL Borderline high LDL 160-189 mg/dL High LDL greater than 189 mg/dL Very high Performed By: #### P TH #### [address] Triglyceride w/Reflex 90 mg/dL Normal 0-149 [facility] Comment on above: Result Comment: TRIG ATP III CLASSIFICATION TRIG less than 150 mg/dL Normal TRIG 150-199 mg/dL Borderline high TRIG 200-500 mg/dL High TRIG greater than 500 mg/dL Very high Standard traceable to the Center for Disease Conrtrol and Prevention (CDC) test method. Performed By: #### P TH #### [address] VLDL CHOLESTEROL 18 mg/dL Normal The [facility] Comment on above: Performed By: #### P TH #### [address] Lymphocytes Auto (Bld) [#/Vo l]Ordered By: Geoff Swann on 10-20-2024 Lymphocytes (Bld) [#/Vol] Lymphocytes [#/volume] in Blood by Automated count 1.00-4.8 [facility] Lymphocytes/100 WBC Auto (Bl d)Ordered By: Geoff Swann on 10-20-2024 Lymphocytes/100 WBC (Bld) Lymphocytes/100 leukocytes in Blood by Automated count . [facility] MCH Auto (RBC) [Entitic mass ]Ordered By: Geoff Swann on 10-20-2024 MCH (RBC) [Entitic mass] MCH [Entitic mass] by Automated count Low 27.5-35.2 [facility] MCHC Auto (RBC) [Mass/Vol]Or dered By: Geoff Swann on 10-20-2024 MCHC (RBC) [Mass/Vol] MCHC [Mass/volume] by Automated count Low 32.5-35.6 [facility] MCV Auto (RBC) [Entitic vol] Ordered By: Geoff Swann on 10-20-2024 MCV (RBC) [Entitic vol] MCV [Entitic volume] by Automated count Low 83.5-101 [facility] Magnesiumon 10-20-2024 Magnesium [Mass/Vol] 2.0 mg/dL Normal 1.9-2.7 [facility] Comment on above: Performed By: #### P TH #### [address] Magnesium [Mass/volume] in S zoey or PlasmaOrdered By: Geoff Swann on 10-20-2024 Magnesium [Mass/Vol] Magnesium [Mass/vol ume] in Serum or Plasma 1.9-2.7 [facility] Monocytes Auto (Bld) [#/Vol] Ordered By: Geoff Swann on 10-20-2024 Monocytes (Bld) [#/Vol] Automated blood monocyte count 0.0-0.8 [facility] Monocytes/100 WBC Auto (Bld) Ordered By: Geoff Swann on 10-20-2024 Monocytes/100 WBC (Bld) Automated monocyte % . [facility] Neutrophils Auto (Bld) [#/Vo l]Ordered By: Geoff Swann on 10-20-2024 Neutrophils (Bld) [#/Vol] Neutrophils [#/volume] in Blood by Automated count 1.8-7.7 [facility] Neutrophils/100 WBC Auto (Bl d)Ordered By: Geoff Swann on 10-20-2024 Neutrophils/100 WBC (Bld) Automated neutrophil % . [facility] No Panel InformationOrdered By: Geoff Swann on 10-20-2024 Estimated GFR (CKD-EPI) 32.274 mL/Min [facility] Pharmacy Creatinine Clearance (Chem 34.36 [facility] Nucleated erythrocytes [Pres ence] in Blood by Automated countOrdered By: Geoff Swann on 10-20-2024 Nucleated RBC Auto Ql (Bld) Nucleated erythrocytes [Presence] in Blood by Automated count 0-0.5 [facility] Platelet mean volume Auto (B ld) [Entitic vol]Ordered By: Geoff Swann on 10-20-2024 Platelet mean volume (Bld) [Entitic vol] Platelet mean volume [Entitic volume] in Blood by Automated count 6.6-10.1 [facility] Platelets Auto (Bld) [#/Vol] Ordered By: Geoff Swann on 10-20-2024 Platelets (Bld) [#/Vol] Platelets [#/volume] in Blood by Automated count 150-450 [facility] Potassium [Moles/volume] in Serum or PlasmaOrdered By: Geoff Swann on 10-20-2024 Potassium [Moles/Vol] Potassium [Moles/v olume] in Serum or Plasma Low 3.5-5.1 [facility] RBC Auto (Bld) [#/Vol]Ordere d By: Geoff Swann on 10-20-2024 RBC (Bld) [#/Vol] Erythrocytes [#/volu me] in Blood by Automated count Low 3.90-5.60 [facility] Serum or plasma anion gap de terminationOrdered By: Geoff Swann on 10-20-2024 Anion gap [Moles/Vol] Serum or plasma an ion gap determination 6.0-15.0 [facility] Serum or plasma total choles terol/high density lipoprotein (HDL) cholesterol mass ratOrdered By: Geoff Swann on 10-20-2024 Cholesterol.total/Chol esterol in HDL [Mass ratio] Serum or plasma total cholesterol/high density lipoprotein (HDL) cholesterol mass rat <5.0 [facility] Sodium [Moles/volume] in Ser um or PlasmaOrdered By: Geoff Swann on 10-20-2024 Sodium [Moles/Vol] Sodium [Moles/volume ] in Serum or Plasma 136-145 [facility] Triglyceride [Mass/volume] i n Serum or PlasmaOrdered By: Geoff Swann on 10-20-2024 Triglyceride [Mass/Vol] Triglyceride [Mass/volume] in Serum or Plasma 0-149 [facility] Comment on above: TRIG ATP III CLASSIF ICATIONTRIG less than 150 mg/dL NormalTRIG 150-199 mg/dL Borderline highTRIG 200-500 mg/dL High TRIG greater than 500 mg/dL Very highStandard traceable to the Center for Disease Conrtrol and Prevention (CDC) test method. Urea nitrogen [Mass/volume] in Serum or PlasmaOrdered By: Geoff Swann on 10-20-2024 Urea nitrogen [Mass/Vol] Urea nitrogen [Mass/volume] in Serum or Plasma 7-25 [facility] WBC Auto (Bld) [#/Vol]Ordere d By: Geoff Swann on 10-20-2024 WBC (Bld) [#/Vol] Leukocytes [#/volume ] in Blood by Automated count 4.1-10.5 [facility] Alanine aminotransferase [En zymatic activity/volume] in Serum or PlasmaOrdered By: Joel De La Paz on 10-19-2024 ALT [Catalytic activity/Vol] Alanine aminotransferase [Enzymatic activity/volume] in Serum or Plasma Low 7-52 [facility] Albumin [Mass/volume] in Ser um or Plasma by Bromocresol green (BCG) dye binding methoOrdered By: Joel De La Paz on 10-19-2024 Albumin BCG dye [Mass/Vol] Albumin [Mass/volume] in Serum or Plasma by Bromocresol green (BCG) dye binding metho Low 3.5-5.7 [facility] Alkaline phosphatase [Enzyma tic activity/volume] in Serum or PlasmaOrdered By: Joel De La Paz on 10-19-2024 ALP [Catalytic activity/Vol] Alkaline phosphatase [Enzymatic activity/volume] in Serum or Plasma High 34-104 [facility] Aspartate aminotransferase [ Enzymatic activity/volume] in Serum or PlasmaOrdered By: Joel De La Paz on 10-19-2024 AST [Catalytic activity/Vol] Aspartate aminotransferase [Enzymatic activity/volume] in Serum or Plasma Low 13-39 [facility] B-Type Natriuretic Peptideon 10-19-2024 Natriuretic peptide B (Bld) [Mass/Vol] 2785.0 pg/mL High 5-100 [facility] Comment on above: Result Comment: PERF ORMED BY: [facility] [address] [place] [address] PATHOLOGIST [employer] GRANT SCHNEIDER M.D. Performed By: #### I FE,URINE #### [facility] , Basophils Auto (Bld) [#/Vol] Ordered By: Joel De La Paz on 10-19-2024 Basophils (Bld) [#/Vol] Automated basophil count 0.0-0.2 [facility] Basophils/100 WBC Auto (Bld) Ordered By: Joel De La Paz on 10-19-2024 Basophils/100 WBC (Bld) Automated basophil % . [facility] Bilirubin.total [Mass/volume ] in Serum or PlasmaOrdered By: Joel De La Paz on 10-19-2024 Bilirubin [Mass/Vol] Bilirubin.total [Mass/volume] in Serum or Plasma High 0.3-1.0 [facility] COVID Cepheid NegativeOrdere d By: Joel De La Paz on 10-19-2024 SARS-CoV-2 (COVID-19) Ab IA Ql COVID Cepheid Negative [facility] Comment on above: This is a duplicate [...] RSV RNA by RT-PCR COVID19 Blank Space -- Reference: Negative COVID19 Blank Space -- Cepheid Disclaimer The Cepheid Xpert Xpress CoV-2/Flu/RSV [...] or Cepheid Disclaimer revoked sooner. PERFORMED BY: [address] [place] [address] PATHOLOGIST [employer] GRANT SCHNEIDER M.D. Normal [facility] Comment on above: Performed By: #### I FE,URINE #### [facility] , Calcium [Mass/volume] in Ser um or PlasmaOrdered By: Joel De La Paz on 10-19-2024 Calcium [Mass/Vol] Calcium [Mass/volume ] in Serum or Plasma 8.6-10.3 [facility] Carbon dioxide, total [Moles /volume] in Serum or PlasmaOrdered By: Joel De La Paz on 10-19-2024 CO2 [Moles/Vol] Carbon dioxide, tota l [Moles/volume] in Serum or Plasma 21.0-31.0 [facility] Cepheid COVID PCR Negativeon 10-19-2024 SARS-CoV-2 (COVID-19) RNA MICHELLE+probe Ql (Unsp spec) Negative Normal Negative [facility] Comment on above: Result Comment: This is a duplicate Cepheid Xpert Xpress CoV-2/Flu/RSV Plus RNA by RT-PCR result to be used for statistical tracking purpose only. PERFORMED BY: [facility] [address] [place] [address] PATHOLOGIST [employer] GRANT SCHNEIDER M.D. Performed By: #### I FE,URINE #### [facility] , Chloride [Moles/volume] in S zoey or PlasmaOrdered By: Joel De La Paz on 10-19-2024 Chloride [Moles/Vol] Chloride [Moles/vol ume] in Serum or Plasma 98-107 [facility] Complete Blood Count Auto Di ffon 10-19-2024 Basophils (Bld) [#/Vol] 0.1 10*3/uL Normal 0.0-0.2 [facility] Comment on above: Result Comment: PERF ORMED BY: [facility] [address] [place] [address] PATHOLOGIST [employer] GRANT SCHNEIDER M.D. Performed By: #### I FE,URINE #### [facility] , Basophils/100 WBC (Bld) 1.4 % Normal . [facility] Comment on above: Performed By: #### I FE,URINE #### [facility] , Eosinophils (Bld) [#/Vol] 0.0 10*3/uL Normal 0.0-0.45 [facility] Comment on above: Performed By: #### I FE,URINE #### [facility] , Eosinophils/100 WBC (Bld) 0.8 % Normal . [facility] Comment on above: Performed By: #### I FE,URINE #### [facility] , Erythrocyte distribution width (RBC) [Ratio] 17.6 % High 12.0-14.8 [facility] Comment on above: Performed By: #### I FE,URINE #### [facility] , Hematocrit (Bld) [Volume fraction] 28.5 % Low 38.8-50.0 [facility] Comment on above: Performed By: #### I FE,URINE #### [facility] , Hemoglobin (Bld) [Mass/Vol] 9.0 g/dL Low 13.0-17.0 [facility] Comment on above: Performed By: #### I FE,URINE #### [facility] , Lymphocytes (Bld) [#/Vol] 1.0 10*3/uL Normal 1.00-4.8 [facility] Comment on above: Performed By: #### I FE,URINE #### [facility] , Lymphocytes/100 WBC (Bld) 16.9 % Normal . [facility] Comment on above: Performed By: #### I FE,URINE #### [facility] , MCH (RBC) [Entitic mass] 23.7 pg Low 27.5-35.2 [facility] Comment on above: Performed By: #### I FE,URINE #### [facility] , MCV (RBC) [Entitic vol] 74.7 fL Low 83.5-101 [facility] Comment on above: Performed By: #### I FE,URINE #### [facility] , Mean Corpuscular HGB Conc 31.7 g/dL Low 32.5-35.6 [facility] Comment on above: Performed By: #### I FE,URINE #### [facility] , Monocytes (Bld) [#/Vol] 0.5 10*3/uL Normal 0.0-0.8 [facility] Comment on above: Performed By: #### I FE,URINE #### [facility] , Monocytes/100 WBC (Bld) 20.86 % High 0.00-20.00 [facility] Comment on above: Result Comment: For adults in ED, MDW > 20.0 may be associated with a higher risk of sepsis during the first 12 hrs of hospital admission Performed By: #### I FE,URINE #### [facility] , Monocytes/100 WBC (Bld) 8.5 % Normal . [facility] Comment on above: Performed By: #### I FE,URINE #### [facility] , Neutrophils (Bld) [#/Vol] 4.3 10*3/uL Normal 1.8-7.7 [facility] Comment on above: Performed By: #### I FE,URINE #### [facility] , Neutrophils/100 WBC (Bld) 72.4 % Normal . [facility] Comment on above: Performed By: #### I FE,URINE #### [facility] , NRBC% 0.1 /100{WBC} Normal 0-0.5 [facility] Comment on above: Performed By: #### I FE,URINE #### [facility] , Platelet mean volume (Bld) [Entitic vol] 6.8 fL Normal 6.6-10.1 [facility] Comment on above: Performed By: #### I FE,URINE #### [facility] , Platelets (Bld) [#/Vol] 292 10*3/uL Normal 150-450 [facility] Comment on above: Performed By: #### I FE,URINE #### [facility] , RBC (Bld) [#/Vol] 3.81 10*6/uL Low 3.90-5.60 [facility] Comment on above: Performed By: #### I FE,URINE #### [facility] , WBC (Bld) [#/Vol] 5.9 10*3/uL Normal 4.1-10.5 [facility] Comment on above: Performed By: #### I FE,URINE #### [facility] , Comprehensive Metabolic Pane thanh 10-19-2024 Albumin [Mass/Vol] 3.4 g/dL Low 3.5-5.7 [facility] Comment on above: Performed By: #### I FE,URINE #### [facility] , Albumin/Globulin [Mass ratio] 1.0 {ratio} Normal [facility] Comment on above: Performed By: #### I FE,URINE #### [facility] , ALP [Catalytic activity/Vol] 105 U/L High 34-104 [facility] Comment on above: Performed By: #### I FE,URINE #### [facility] , ALT [Catalytic activity/Vol] 6 U/L Low 7-52 [facility] Comment on above: Performed By: #### I FE,URINE #### [facility] , Anion gap [Moles/Vol] 8.9 mmol/L Normal 6.0-15.0 [facility] Comment on above: Performed By: #### I FE,URINE #### [facility] , AST [Catalytic activity/Vol] 12 U/L Low 13-39 [facility] Comment on above: Performed By: #### I FE,URINE #### [facility] , Bilirubin [Mass/Vol] 1.2 mg/dL High 0.3-1.0 [facility] Comment on above: Performed By: #### I FE,URINE #### [facility] , Calcium [Mass/Vol] 9.5 mg/dL Normal 8.6-10.3 [facility] Comment on above: Performed By: #### I FE,URINE #### [facility] , Chloride [Moles/Vol] 100 mmol/L Normal 98-107 [facility] Comment on above: Performed By: #### I FE,URINE #### [facility] , CO2 [Moles/Vol] 28.8 mmol/L Normal 21.0-31.0 [facility] Comment on above: Performed By: #### I FE,URINE #### [facility] , Creatinine [Mass/Vol] 2.19 mg/dL High 0.70-1.30 [facility] Comment on above: Performed By: #### I FE,URINE #### [facility] , Creatinine Clr Calc Pharmacy 33.47 Normal [facility] Comment on above: Result Comment: PERF ORMED BY: [facility] [place] [address] PATHOLOGIST [employer] GRANT SCHNEIDER M.D. Performed By: #### I FE,URINE #### [facility] , Estimated GFR 31.216 mL/Min Normal [facility] Comment on above: Performed By: #### I FE,URINE #### [facility] , Globulin (S) [Mass/Vol] 3.5 g/dL Normal [facility] Comment on above: Performed By: #### I FE,URINE #### [facility] , Glucose [Mass/Vol] 109 mg/dL High 70-100 [facility] Comment on above: Result Comment: [place] Glucose Reference Range is dependent on time and content of last meal. Glucose of more than 200 mg/dL in a nonstressed, ambulatory subject supports the diagnosis of Diabetes Mellitus. ADA recommended reference range Performed By: #### I FE,URINE #### [facility] , Potassium [Moles/Vol] 3.7 mmol/L Normal 3.5-5.1 [facility] Comment on above: Performed By: #### I FE,URINE #### [facility] , Protein [Mass/Vol] 6.9 g/dL Normal 6.4-8.9 [facility] Comment on above: Performed By: #### I FE,URINE #### [facility] , Sodium [Moles/Vol] 134 mmol/L Low 136-145 [facility] Comment on above: Performed By: #### I FE,URINE #### [facility] , Urea nitrogen [Mass/Vol] 23 mg/dL Normal 7-25 [facility] Comment on above: Performed By: #### I FE,URINE #### [facility] , Creatine Kinaseon 10-19-2024 CK [Catalytic activity/Vol] 34 U/L Normal 30 [facility] Comment on above: Performed By: #### I FE,URINE #### [facility] , Creatine kinase [Enzymatic a ctivity/volume] in Serum or PlasmaOrdered By: Joel De La Paz on 10-19-2024 CK [Catalytic activity/Vol] Creatine kinase [Enzymatic activity/volume] in Serum or Plasma [facility] Creatinine [Mass/volume] in Serum or PlasmaOrdered By: Joel De La Paz on 10-19-2024 Creatinine [Mass/Vol] Creatinine [Mass/v olume] in Serum or Plasma High 0.70-1.30 [facility] ECG 12 lead ECGon 10-19-2024 ECG 12 lead ECG [facility] [place] [address] Electrocardiograph Report Signed Patient: Char Alatorre MR#: [id number] 4 : 1950 Acct:[id number] Age/Sex: 73 / M ADM Date: 10/19/24 Loc: ER Room: Type: [facility] ER Attending Dr: Ordering Provider: Joel De [...] Confirmed by Joel DE LA PAZ DO ([id number]) on 10/19/2024 2:39:22 PM Referred By: Electronically Signed By: Joel DE LA PAZ DO Transcribed By: MUS Signed By Joel De La Paz DO 0 10/19/24 1439 Normal [facility] Eosinophils Auto (Bld) [#/Vo l]Ordered By: Joel De La Paz on 10-19-2024 Eosinophils (Bld) [#/Vol] Automated eosinophil count 0.0-0.45 [facility] Eosinophils/100 WBC Auto (Bl d)Ordered By: Joel De La Paz on 10-19-2024 Eosinophils/100 WBC (Bld) Automated eosinophil % . [facility] Erythrocyte distribution wid th Auto (RBC) [Ratio]Ordered By: Joel De La Paz on 10-19-2024 Erythrocyte distribution width (RBC) [Ratio] Erythrocyte distribution width [Ratio] by Automated count High 12.0-14.8 [facility] Globulin Calc (S) [Mass/Vol] Ordered By: Joel De La Paz on 10-19-2024 Globulin (S) [Mass/Vol] Serum globulin measurement by calculation (mass/volume) [facility] Glucose [Mass/volume] in Ser um or PlasmaOrdered By: Joel De La Paz on 10-19-2024 Glucose [Mass/Vol] Glucose [Mass/volume ] in Serum or Plasma High 70-100 [facility] Comment on above: ADA recommended refe rence [...] of Blood by Automated count Low 38.8-50.0 [facility] Hemoglobin [Mass/volume] in BloodOrdered By: Joel De La Paz on 10-19-2024 Hemoglobin (Bld) [Mass/Vol] Hemoglobin [Mass/volume] in Blood Low 13.0-17.0 [facility] Leukocytes [#/volume] correc anna for nucleated erythrocytes in Blood by Automated counOrdered By: Joel De La Paz on 10-19-2024 WBC corrected for nucl RBC Auto (Bld) [#/Vol] Leukocytes [#/volume] corrected for nucleated erythrocytes in Blood by Automated coun 4.1-10.5 [facility] Lymphocytes Auto (Bld) [#/Vo l]Ordered By: Joel De La Paz on 10-19-2024 Lymphocytes (Bld) [#/Vol] Lymphocytes [#/volume] in Blood by Automated count 1.00-4.8 [facility] Lymphocytes/100 WBC Auto (Bl d)Ordered By: Joel De La Paz on 10-19-2024 Lymphocytes/100 WBC (Bld) Lymphocytes/100 leukocytes in Blood by Automated count . [facility] MCH Auto (RBC) [Entitic mass ]Ordered By: Joel De La Paz on 10-19-2024 MCH (RBC) [Entitic mass] MCH [Entitic mass] by Automated count Low 27.5-35.2 [facility] MCHC Auto (RBC) [Mass/Vol]Or dered By: Joel De La Paz on 10-19-2024 MCHC (RBC) [Mass/Vol] MCHC [Mass/volume] by Automated count Low 32.5-35.6 [facility] MCV Auto (RBC) [Entitic vol] Ordered By: Joel De La Paz on 10-19-2024 MCV (RBC) [Entitic vol] MCV [Entitic volume] by Automated count Low 83.5-101 [facility] Monocyte distribution width [Entitic volume] in Blood by AutomatedOrdered By: Joel De La Paz on 10-19-2024 Monocyte distribution width Auto (Bld) [Entitic vol] Monocyte distribution width [Entitic volume] in Blood by Automated High 0.00-20.00 [facility] Comment on above: For adults in ED, MD W > 20.0 may be associated with a higher risk of sepsis during the first 12 hrs of hospital admission Monocytes Auto (Bld) [#/Vol] Ordered By: Joel De La Paz on 10-19-2024 Monocytes (Bld) [#/Vol] Automated blood monocyte count 0.0-0.8 [facility] Monocytes/100 WBC Auto (Bld) Ordered By: Joel De La Paz on 10-19-2024 Monocytes/100 WBC (Bld) Automated monocyte % . [facility] Natriuretic peptide B [Mass/ Vol]Ordered By: Joel De La Paz on 10-19-2024 Natriuretic peptide B (Bld) [Mass/Vol] BNP ser/plas High 5-100 [facility] Neutrophils Auto (Bld) [#/Vo l]Ordered By: Joel De La Paz on 10-19-2024 Neutrophils (Bld) [#/Vol] Neutrophils [#/volume] in Blood by Automated count 1.8-7.7 [facility] Neutrophils/100 WBC Auto (Bl d)Ordered By: Joel De La Paz on 10-19-2024 Neutrophils/100 WBC (Bld) Automated neutrophil % . [facility] No Panel InformationOrdered By: Joel De La Paz on 10-19-2024 Estimated GFR (CKD-EPI) 31.216 mL/Min [facility] Creatinine Clearance (Chem 33.47 [facility] Nucleated erythrocytes [Pres ence] in Blood by Automated countOrdered By: Joel De La Paz on 10-19-2024 Nucleated RBC Auto Ql (Bld) Nucleated erythrocytes [Presence] in Blood by Automated count 0-0.5 [facility] Platelet mean volume Auto (B ld) [Entitic vol]Ordered By: Joel De La Paz on 10-19-2024 Platelet mean volume (Bld) [Entitic vol] Platelet mean volume [Entitic volume] in Blood by Automated count 6.6-10.1 [facility] Platelets Auto (Bld) [#/Vol] Ordered By: Joel De La Paz on 10-19-2024 Platelets (Bld) [#/Vol] Platelets [#/volume] in Blood by Automated count 150-450 [facility] Potassium [Moles/volume] in Serum or PlasmaOrdered By: Joel De La Paz on 10-19-2024 Potassium [Moles/Vol] Potassium [Moles/v olume] in Serum or Plasma 3.5-5.1 [facility] Protein [Mass/volume] in Ser um or PlasmaOrdered By: Joel De La Paz on 10-19-2024 Protein [Mass/Vol] Protein [Mass/volume ] in Serum or Plasma 6.4-8.9 [facility] RBC Auto (Bld) [#/Vol]Ordere d By: Joel De La Paz on 10-19-2024 RBC (Bld) [#/Vol] Erythrocytes [#/volu me] in Blood by Automated count Low 3.90-5.60 [facility] Respiratory specimen influen za A virus, influenza B virus, respiratory syncytical virOrdered By: Joel De La Paz on 10-19-2024 SARS-CoV-2 (COVID-19) RNA MICHELLE+probe Ql (Unsp spec) Respiratory specimen influenza A virus, influenza B virus, respiratory syncytical vir [facility] Serum or plasma albumin/glob ulin mass ratioOrdered By: Joel De La Paz on 10-19-2024 Albumin/Globulin [Mass ratio] Serum or plasma albumin/globulin mass ratio [facility] Serum or plasma anion gap de terminationOrdered By: Joel De La Paz on 10-19-2024 Anion gap [Moles/Vol] Serum or plasma an ion gap determination 6.0-15.0 [facility] Sodium [Moles/volume] in Ser um or PlasmaOrdered By: Joel De La Paz on 10-19-2024 Sodium [Moles/Vol] Sodium [Moles/volume ] in Serum or Plasma Low 136-145 [facility] Troponin I High Sensitivityo n 10-19-2024 Troponin I High Sensitivity 39.8 pg/mL High 0.0-20.0 [facility] Comment on above: Result Comment: PERF ORMED BY: [address] [address] PATHOLOGIST [employer] GRANT SCHNEIDER M.D. Performed By: #### I FE,URINE #### [facility] , Troponin I.cardiac [Mass/vol ume] in Serum or Plasma by Detection limit <= 0.01 ng/Ordered By: Joel De La Paz on 10-19-2024 Troponin I.cardiac DL <= 0.01 ng/mL [Mass/Vol] Troponin I.cardiac [Mass/volume] in Serum or Plasma by Detection limit <= 0.01 ng/ High 0.0-20.0 [facility] Urea nitrogen [Mass/volume] in Serum or PlasmaOrdered By: Joel De La Paz on 10-19-2024 Urea nitrogen [Mass/Vol] Urea nitrogen [Mass/volume] in Serum or Plasma 7-25 [facility] WBC Auto (Bld) [#/Vol]Ordere d By: Joel De La Paz on 10-19-2024 WBC (Bld) [#/Vol] Leukocytes [#/volume ] in Blood by Automated count 4.1-10.5 [facility] X-ray reportOrdered By: Char Larios on 10-19-2024 Study report [facility] Main [address] [address] XRay Report Signed Patient: Char Alatorre MR#: [id number] : 1950 Acct:[id number] Age/Sex: 73 / M ADM Date: 5 Loc: ER Room: Type: [facility] ER Attending Dr: Copies to: Joel De [...] Char Larios M.D.10/19/2024 1:26 PM Dictation Location: [facility]-17 Transcribed By: LUCI 10/19/24 1326 Dictated By: Char Larios II, MD 10/19/241324 Signed By: 10/19/24 1326 [facility] Work Phone: XR chest 2V*on 10-19-2024 XR chest 2V* [facility] [place] [address] XRay Report Signed Patient: Char Alatorre MR#: [id number] 4 : 1950 Acct:[id number] Age/Sex: 73 / M ADM Date: 10/19/24 Loc: ER Room: Type: [facility] ER Attending Dr: Copies to: Joel De [...] Char Larios M.D.10/19/2024 1:26 PM Dictation Location: [facility]--17 Transcribed By: LUCI 10/19/24 132 Dictated By: Char Larios II, MD 10/19/241324 Signed By: 10/19/24 132 Normal [facility] Alanine aminotransferase [En zymatic activity/volume] in Serum or PlasmaOrdered By: Arturo Le on 10-09-2024 ALT [Catalytic activity/Vol] Alanine aminotransferase [Enzymatic activity/volume] in Serum or Plasma Low 7-52 [facility] Albumin [Mass/volume] in Ser um or Plasma by Bromocresol green (BCG) dye binding methoOrdered By: Arturo Le on 10-09-2024 Albumin BCG dye [Mass/Vol] Albumin [Mass/volume] in Serum or Plasma by Bromocresol green (BCG) dye binding metho Low 3.5-5.7 [facility] Alkaline phosphatase [Enzyma tic activity/volume] in Serum or PlasmaOrdered By: Arturo Le on 10-09-2024 ALP [Catalytic activity/Vol] Alkaline phosphatase [Enzymatic activity/volume] in Serum or Plasma High 34-104 [facility] Aspartate aminotransferase [ Enzymatic activity/volume] in Serum or PlasmaOrdered By: Arturo Le on 10-09-2024 AST [Catalytic activity/Vol] Aspartate aminotransferase [Enzymatic activity/volume] in Serum or Plasma Low 13-39 [facility] Basic Metabolic Panelon 09-16 Anion gap [Moles/Vol] 10.4 mmol/L Normal 6.0-15.0 [facility] Comment on above: Performed By: #### L ACTIC, HEPATIC, BMP, CBC #### [facility] [address] [place] [address] Calcium [Mass/Vol] 9.9 mg/dL Normal 8.6-10.3 [facility] Comment on above: Performed By: #### L ACTIC, HEPATIC, BMP, CBC #### [address] Chloride [Moles/Vol] 101 mmol/L Normal 98-107 [facility] Comment on above: Performed By: #### L ACTIC, HEPATIC, BMP, CBC #### [address] CO2 [Moles/Vol] 27.4 mmol/L Normal 21.0-31.0 [facility] Comment on above: Performed By: #### L ACTIC, HEPATIC, BMP, CBC #### [address] Creatinine [Mass/Vol] 1.98 mg/dL High 0.70-1.30 [facility] Comment on above: Performed By: #### L ACTIC, HEPATIC, BMP, CBC #### [address] Creatinine Clr Calc Pharmacy 37.01 Normal [facility] Comment on above: Result Comment: PERF ORMED BY: [place] [address] PATHOLOGIST [employer] GRANT SCHNEIDER M.D. Performed By: #### L ACTIC, HEPATIC, BMP, CBC #### [address] Estimated GFR 35.229 mL/Min Normal [facility] Comment on above: Performed By: #### L ACTIC, HEPATIC, BMP, CBC #### [address] Glucose [Mass/Vol] 134 mg/dL High 70-100 [facility] Comment on above: Result Comment: [place] Glucose Reference Range is dependent on time and content of last meal. Glucose of more than 200 mg/dL in a nonstressed, ambulatory subject supports the diagnosis of Diabetes Mellitus. ADA recommended reference range Performed By: #### L ACTIC, HEPATIC, BMP, CBC #### [facility] [address] Potassium [Moles/Vol] 3.8 mmol/L Normal 3.5-5.1 [facility] Comment on above: Performed By: #### L ACTIC, HEPATIC, BMP, CBC #### [facility] [address] Sodium [Moles/Vol] 135 mmol/L Low 136-145 [facility] Comment on above: Performed By: #### L ACTIC, HEPATIC, BMP, CBC #### [facility] [address] Urea nitrogen [Mass/Vol] 23 mg/dL Normal 7-25 [facility] Comment on above: Performed By: #### L ACTIC, HEPATIC, BMP, CBC #### [facility] [address] [place] [address] Basophils Auto (Bld) [#/Vol] Ordered By: Arturo Le on 10-09-2024 Basophils (Bld) [#/Vol] Automated basophil count 0.0-0.2 [facility] Basophils/100 WBC Auto (Bld) Ordered By: Arturo Le on 10-09-2024 Basophils/100 WBC (Bld) Automated basophil % . [facility] Bilirubin.direct [Mass/volum e] in Serum or PlasmaOrdered By: Arturo Le on 10-09-2024 Bilirubin.direct [Mass/Vol] Bilirubin.direct [Mass/volume] in Serum or Plasma High 0.03-0.18 [facility] Bilirubin.total [Mass/volume ] in Serum or PlasmaOrdered By: Arturo Le on 10-09-2024 Bilirubin [Mass/Vol] Bilirubin.total [Mass/volume] in Serum or Plasma 0.3-1.0 [facility] CT angio abdomen pelvison CT angio abdomen pelvis [facility] [place] [address] CT Scan Report Signed with Meganenda Patient: Char Alatorre MR#: [id number] 4 : 1950 Acct:[id number] Age/Sex: 73 / M ADM Date: 10/09/24 Loc: ER Room: Type: [facility] ER Attending Dr: Copies to: Arturo Le [...] grossly unremarkable. Prostate gland normal in size.] Peritoneum/Retroperitoneum :No free air, free fluid or lymphadenopathy.[ Abd [...] dictat (more content not included)... Normal [facility] Calcium [Mass/volume] in Ser um or PlasmaOrdered By: Arturo Le on 10-09-2024 Calcium [Mass/Vol] Calcium [Mass/volume ] in Serum or Plasma 8.6-10.3 [facility] Carbon dioxide, total [Moles /volume] in Serum or PlasmaOrdered By: Arturo Le on 10-09-2024 CO2 [Moles/Vol] Carbon dioxide, tota l [Moles/volume] in Serum or Plasma 21.0-31.0 [facility] Chloride [Moles/volume] in S zoey or PlasmaOrdered By: Arturo Le on 10-09-2024 Chloride [Moles/Vol] Chloride [Moles/vol ume] in Serum or Plasma 98-107 [facility] Complete Blood Count Auto Di ffon 10-09-2024 Basophils (Bld) [#/Vol] 0.1 10*3/uL Normal 0.0-0.2 [facility] Comment on above: Result Comment: PERF ORMED BY: [place] [address] PATHOLOGIST [employer] GRANT SCHNEIDER M.D. Performed By: #### L ACTIC, HEPATIC, BMP, CBC #### [address] Basophils/100 WBC (Bld) 3.1 % Normal . [facility] Comment on above: Performed By: #### L ACTIC, HEPATIC, BMP, CBC #### [address] Eosinophils (Bld) [#/Vol] 0.0 10*3/uL Normal 0.0-0.45 [facility] Comment on above: Performed By: #### L ACTIC, HEPATIC, BMP, CBC #### [address] Eosinophils/100 WBC (Bld) 0.4 % Normal . [facility] Comment on above: Performed By: #### L ACTIC, HEPATIC, BMP, CBC #### [address] Erythrocyte distribution width (RBC) [Ratio] 17.6 % High 12.0-14.8 [facility] Comment on above: Performed By: #### L ACTIC, HEPATIC, BMP, CBC #### [address] Hematocrit (Bld) [Volume fraction] 27.9 % Low 38.8-50.0 [facility] Comment on above: Performed By: #### L ACTIC, HEPATIC, BMP, CBC #### [address] Hemoglobin (Bld) [Mass/Vol] 8.9 g/dL Low 13.0-17.0 [facility] Comment on above: Performed By: #### L ACTIC, HEPATIC, BMP, CBC #### [address] Lymphocytes (Bld) [#/Vol] 0.7 10*3/uL Low 1.00-4.8 [facility] Comment on above: Performed By: #### L ACTIC, HEPATIC, BMP, CBC #### [address] Lymphocytes/100 WBC (Bld) 14.8 % Normal . [facility] Comment on above: Performed By: #### L ACTIC, HEPATIC, BMP, CBC #### [address] MCH (RBC) [Entitic mass] 23.7 pg Low 27.5-35.2 [facility] Comment on above: Performed By: #### L ACTIC, HEPATIC, BMP, CBC #### [address] MCV (RBC) [Entitic vol] 74.4 fL Low 83.5-101 [facility] Comment on above: Performed By: #### L ACTIC, HEPATIC, BMP, CBC #### [address] Mean Corpuscular HGB Conc 31.8 g/dL Low 32.5-35.6 [facility] Comment on above: Performed By: #### L ACTIC, HEPATIC, BMP, CBC #### [address] Monocytes (Bld) [#/Vol] 0.3 10*3/uL Normal 0.0-0.8 [facility] Comment on above: Performed By: #### L ACTIC, HEPATIC, BMP, CBC #### [place] [address] [place] Monocytes/100 WBC (Bld) 23.60 % High 0.00-20.00 [facility] Comment on above: Result Comment: For adults in ED, MDW > 20.0 may be associated with a higher risk of sepsis during the first 12 hrs of hospital admission Performed By: #### L ACTIC, HEPATIC, BMP, CBC #### [place] [address] [place] Monocytes/100 WBC (Bld) 7.1 % Normal . [facility] Comment on above: Performed By: #### L ACTIC, HEPATIC, BMP, CBC #### [address] Neutrophils (Bld) [#/Vol] 3.5 10*3/uL Normal 1.8-7.7 [facility] Comment on above: Performed By: #### L ACTIC, HEPATIC, BMP, CBC #### [place] [address] [place] Neutrophils/100 WBC (Bld) 74.6 % Normal . [facility] Comment on above: Performed By: #### L ACTIC, HEPATIC, BMP, CBC #### [place] [address] [place] NRBC% 0.0 /100{WBC} Normal 0-0.5 [facility] Comment on above: Performed By: #### L ACTIC, HEPATIC, BMP, CBC #### [address] Platelet mean volume (Bld) [Entitic vol] 6.6 fL Normal 6.6-10.1 [facility] Comment on above: Performed By: #### L ACTIC, HEPATIC, BMP, CBC #### [place] [address] [place] Platelets (Bld) [#/Vol] 239 10*3/uL Normal 150-450 [facility] Comment on above: Performed By: #### L ACTIC, HEPATIC, BMP, CBC #### [facility] [address] RBC (Bld) [#/Vol] 3.75 10*6/uL Low 3.90-5.60 [facility] Comment on above: Performed By: #### L ACTIC, HEPATIC, BMP, CBC #### [facility] [address] WBC (Bld) [#/Vol] 4.7 10*3/uL Normal 4.1-10.5 [facility] Comment on above: Performed By: #### L ACTIC, HEPATIC, BMP, CBC #### [facility] [address] Creatinine (Bld) [Mass/Vol]O rdered By: Arturo Le on 10-09-2024 Creatinine [Mass/Vol] Whole blood creati nine measurement High 0.6-1.3 [facility] Comment on above: ER/ESD physician is notified/shown all ISTAT results.Critical values may be confirmed by laboratory testing ifdeemed necessary by ER attending doctor. Creatinine [Mass/volume] in Serum or PlasmaOrdered By: Arturo Le on 10-09-2024 Creatinine [Mass/Vol] Creatinine [Mass/v olume] in Serum or Plasma High 0.70-1.30 [facility] ECG 12 lead ECGon 10-09-2024 ECG 12 lead ECG [facility] Main [place] [address] [place] [address] Electrocardiograph Report Signed Patient: Char Alatorre MR#: [id number] 4 : 1950 Acct:[id number] Age/Sex: 73 / M ADM Date: 10/09/24 Loc: ER Room: Type: [facility] ER Attending Dr: Ordering Provider: Arturo Le [...] By Arturo Le MD 09/16 Normal [facility] Eosinophils Auto (Bld) [#/Vo l]Ordered By: Arturo Le on 10-09-2024 Eosinophils (Bld) [#/Vol] Automated eosinophil count 0.0-0.45 [facility] Eosinophils/100 WBC Auto (Bl d)Ordered By: Arturo Le on 10-09-2024 Eosinophils/100 WBC (Bld) Automated eosinophil % . [facility] Erythrocyte distribution wid th Auto (RBC) [Ratio]Ordered By: Arturo Le on 10-09-2024 Erythrocyte distribution width (RBC) [Ratio] Erythrocyte distribution width [Ratio] by Automated count High 12.0-14.8 [facility] Globulin Calc (S) [Mass/Vol] Ordered By: Arturo Le on 10-09-2024 Globulin (S) [Mass/Vol] Serum globulin measurement by calculation (mass/volume) [facility] Glucose [Mass/volume] in Ser um or PlasmaOrdered By: Arturo Le on 10-09-2024 Glucose [Mass/Vol] Glucose [Mass/volume ] in Serum or Plasma High 70-100 [facility] Comment on above: ADA recommended refe rence rangeRandom Glucose Reference Range is dependent on time and content of last meal. Glucose of more than 200 mg/dL in a nonstressed, ambulatory subject supports the diagnosis of Diabetes Mellitus. Hematocrit Auto (Bld) [Volum e fraction]Ordered By: Arturo Le on 10-09-2024 Hematocrit (Bld) [Volume fraction] Hematocrit [Volume Fraction] of Blood by Automated count Low 38.8-50.0 [facility] Hemoglobin [Mass/volume] in BloodOrdered By: Arturo Le on 10-09-2024 Hemoglobin (Bld) [Mass/Vol] Hemoglobin [Mass/volume] in Blood Low 13.0-17.0 [facility] Hepatic Panelon 10-09-2024 Albumin [Mass/Vol] 3.3 g/dL Low 3.5-5.7 [facility] Comment on above: Performed By: #### L ACTIC, HEPATIC, BMP, CBC #### [address] Albumin/Globulin [Mass ratio] 0.9 {ratio} Normal [facility] Comment on above: Performed By: #### L ACTIC, HEPATIC, BMP, CBC #### [facility] [address] ALP [Catalytic activity/Vol] 109 U/L High 34-104 [facility] Comment on above: Performed By: #### L ACTIC, HEPATIC, BMP, CBC #### [address] ALT [Catalytic activity/Vol] 6 U/L Low 7-52 [facility] Comment on above: Performed By: #### L ACTIC, HEPATIC, BMP, CBC #### [address] AST [Catalytic activity/Vol] 10 U/L Low 13-39 [facility] Comment on above: Performed By: #### L ACTIC, HEPATIC, BMP, CBC #### [address] Bilirubin [Mass/Vol] 0.9 mg/dL Normal 0.3-1.0 [facility] Comment on above: Performed By: #### L ACTIC, HEPATIC, BMP, CBC #### [address] Bilirubin,Indirect 0.7 mg/dL Normal [facility] Comment on above: Performed By: #### L ACTIC, HEPATIC, BMP, CBC #### [address] Bilirubin.indirect [Mass/Vol] 0.20 mg/dL High 0.03-0.18 [facility] Comment on above: Performed By: #### L ACTIC, HEPATIC, BMP, CBC #### [address] Globulin (S) [Mass/Vol] 3.6 g/dL Normal [facility] Comment on above: Performed By: #### L ACTIC, HEPATIC, BMP, CBC #### [address] Protein [Mass/Vol] 6.9 g/dL Normal 6.4-8.9 [facility] Comment on above: Performed By: #### L ACTIC, HEPATIC, BMP, CBC #### [address] ISTAT XRay CREon 10-09-2024 Creatinine [Mass/Vol] 2.1 mg/dL High 0.6-1.3 [facility] Comment on above: Result Comment: ER/E SD physician is notified/shown all ISTAT results. Critical values may be confirmed by laboratory testing if deemed necessary by ER attending doctor. Performed By: #### A DDONUAPLUS #### [address] ISTAT GFR 32.828 Normal [facility] Comment on above: Result Comment: PERF ORMED BY: [place] [address] PATHOLOGIST [employer] GRANT SCHNEIDER M.D. Performed By: #### A DDONUAPLUS #### [address] Lactate [Moles/volume] in Se rum or PlasmaOrdered By: Arturo Le on 10-09-2024 Lactate [Moles/Vol] Lactate [Moles/volum e] in Serum or Plasma 0.5-2.2 [facility] Lactic Acidon 10-09-2024 Lactate [Moles/Vol] 1.2 mmol/L Normal 0.5-2.2 [facility] Comment on above: Result Comment: PERF ORMED BY: [place] [address] PATHOLOGIST [employer] GRANT SCHNEIDER M.D. Performed By: #### L ACTIC, HEPATIC, BMP, CBC #### [facility] [address] [place] [id number] [facility] Leukocytes [#/volume] correc anna for nucleated erythrocytes in Blood by Automated counOrdered By: Arturo Le on 10-09-2024 WBC corrected for nucl RBC Auto (Bld) [#/Vol] Leukocytes [#/volume] corrected for nucleated erythrocytes in Blood by Automated coun 4.1-10.5 [facility] Lymphocytes Auto (Bld) [#/Vo l]Ordered By: Arturo Le on 10-09-2024 Lymphocytes (Bld) [#/Vol] Lymphocytes [#/volume] in Blood by Automated count Low 1.00-4.8 [facility] Lymphocytes/100 WBC Auto (Bl d)Ordered By: Arturo Le on 10-09-2024 Lymphocytes/100 WBC (Bld) Lymphocytes/100 leukocytes in Blood by Automated count . [facility] MCH Auto (RBC) [Entitic mass ]Ordered By: Arturo Le on 10-09-2024 MCH (RBC) [Entitic mass] MCH [Entitic mass] by Automated count Low 27.5-35.2 [facility] MCHC Auto (RBC) [Mass/Vol]Or dered By: Arturo Le on 10-09-2024 MCHC (RBC) [Mass/Vol] MCHC [Mass/volume] by Automated count Low 32.5-35.6 [facility] MCV Auto (RBC) [Entitic vol] Ordered By: Arturo Le on 10-09-2024 MCV (RBC) [Entitic vol] MCV [Entitic volume] by Automated count Low 83.5-101 [facility] Monocyte distribution width [Entitic volume] in Blood by AutomatedOrdered By: Arturo Le on 10-09-2024 Monocyte distribution width Auto (Bld) [Entitic vol] Monocyte distribution width [Entitic volume] in Blood by Automated High 0.00-20.00 [facility] Comment on above: For adults in ED, MD W > 20.0 may be associated with a higher risk of sepsis during the first 12 hrs of hospital admission Monocytes Auto (Bld) [#/Vol] Ordered By: Arturo Le on 10-09-2024 Monocytes (Bld) [#/Vol] Automated blood monocyte count 0.0-0.8 [facility] Monocytes/100 WBC Auto (Bld) Ordered By: Arturo Le on 10-09-2024 Monocytes/100 WBC (Bld) Automated monocyte % . [facility] Neutrophils Auto (Bld) [#/Vo l]Ordered By: Arturo Le on 10-09-2024 Neutrophils (Bld) [#/Vol] Neutrophils [#/volume] in Blood by Automated count 1.8-7.7 [facility] Neutrophils/100 WBC Auto (Bl d)Ordered By: Arturo Le on 10-09-2024 Neutrophils/100 WBC (Bld) Automated neutrophil % . [facility] No Panel InformationOrdered By: Arturo Le on 10-09-2024 Bedside Estimated GFR (eGFR) 32.828 [facility] Estimated GFR (CKD-EPI) 35.229 mL/Min [facility] Pharmacy Creatinine Clearance (Chem 37.01 [facility] Nucleated erythrocytes [Pres ence] in Blood by Automated countOrdered By: Arturo Le on 10-09-2024 Nucleated RBC Auto Ql (Bld) Nucleated erythrocytes [Presence] in Blood by Automated count 0-0.5 [facility] Platelet mean volume Auto (B ld) [Entitic vol]Ordered By: Arturo Le on 10-09-2024 Platelet mean volume (Bld) [Entitic vol] Platelet mean volume [Entitic volume] in Blood by Automated count 6.6-10.1 [facility] Platelets Auto (Bld) [#/Vol] Ordered By: Arturo Le on 10-09-2024 Platelets (Bld) [#/Vol] Platelets [#/volume] in Blood by Automated count 150-450 [facility] Potassium [Moles/volume] in Serum or PlasmaOrdered By: Arturo Le on 10-09-2024 Potassium [Moles/Vol] Potassium [Moles/v olume] in Serum or Plasma 3.5-5.1 [facility] Protein [Mass/volume] in Ser um or PlasmaOrdered By: Arturo Le on 10-09-2024 Protein [Mass/Vol] Protein [Mass/volume ] in Serum or Plasma 6.4-8.9 [facility] RBC Auto (Bld) [#/Vol]Ordere d By: Arturo Le on 10-09-2024 RBC (Bld) [#/Vol] Erythrocytes [#/volu me] in Blood by Automated count Low 3.90-5.60 [facility] Serum or plasma albumin/glob ulin mass ratioOrdered By: Arturo Le on 10-09-2024 Albumin/Globulin [Mass ratio] Serum or plasma albumin/globulin mass ratio [facility] Serum or plasma anion gap de terminationOrdered By: Arturo Le on 10-09-2024 Anion gap [Moles/Vol] Serum or plasma an ion gap determination 6.0-15.0 [facility] Serum or plasma non-glucuron idated bilirubin measurement (mass/volume)Ordered By: Arturo Le on 10-09-2024 Bilirubin.indirect [Mass/Vol] Serum or plasma non-glucuronidated bilirubin measurement (mass/volume) [facility] Sodium [Moles/volume] in Ser um or PlasmaOrdered By: Arturo Le on 10-09-2024 Sodium [Moles/Vol] Sodium [Moles/volume ] in Serum or Plasma Low 136-145 [facility] Stool Occult Blood (Guaiac)o n 10-09-2024 Stool Occult Blood (Guaiac) Occult Blood Negative for Occult Blood by Guaiac Methodology -- Reference range = Negative PERFORMED BY: [place] [address] PATHOLOGIST [employer] GRANT SCHNEIDER M.D. Normal [facility] Comment on above: Performed By: #### A DDONUAPLUS #### [address] Stool gastrointestinal hemog lobin detectionOrdered By: Arturo Le on 10-09-2024 Hemoglobin.gastrointes tinal Ql (Stl) Stool gastrointestinal hemoglobin detection [facility] Urea nitrogen [Mass/volume] in Serum or PlasmaOrdered By: Arturo Le on 10-09-2024 Urea nitrogen [Mass/Vol] Urea nitrogen [Mass/volume] in Serum or Plasma 05-09 [facility] WBC Auto (Bld) [#/Vol]Ordere d By: Arturo Le on 10-09-2024 WBC (Bld) [#/Vol] Leukocytes [#/volume ] in Blood by Automated count 4.1-10.5 [facility] Albumin [Mass/volume] in Ser um or Plasma by Bromocresol green (BCG) dye binding methoOrdered By: Magy Cummings on 09-03-2024 Albumin BCG dye [Mass/Vol] Albumin [Mass/volume] in Serum or Plasma by Bromocresol green (BCG) dye binding metho 3.5-5.7 [facility] Appearance of UrineOrdered B y: Magy Cummings on 09-03-2024 Appearance (U) Urine appearance Clear [facility] Bacteria [Presence] in Urine by AutomatedOrdered By: Magy Cummings on 09-03-2024 Bacteria Auto Ql (U) Bacteria [Presence] in Urine by Automated None Seen [facility] Basophils Auto (Bld) [#/Vol] Ordered By: Magy Cummings on 09-03-2024 Basophils (Bld) [#/Vol] Automated basophil count 0.0-0.2 [facility] Basophils/100 WBC Auto (Bld) Ordered By: Magy Cummings on 09-03-2024 Basophils/100 WBC (Bld) Automated basophil % . [facility] Bilirubin Test strip Ql (U)O rdered By: Magy Cummings on 09-03-2024 Bilirubin Ql (U) Bilirubin.total [Pre sence] in Urine by Test strip Negative [facility] Calcium [Mass/volume] in Ser um or PlasmaOrdered By: Magy Cummings on 09-03-2024 Calcium [Mass/Vol] Calcium [Mass/volume ] in Serum or Plasma 8.6-10.3 [facility] Carbon dioxide, total [Moles /volume] in Serum or PlasmaOrdered By: Magy Cummings on 09-03-2024 CO2 [Moles/Vol] Carbon dioxide, tota l [Moles/volume] in Serum or Plasma High 21.0-31.0 [facility] Chloride [Moles/volume] in S zoey or PlasmaOrdered By: Magy Cummings on 09-03-2024 Chloride [Moles/Vol] Chloride [Moles/vol ume] in Serum or Plasma 98-107 [facility] Color Auto (U)Ordered By: Ab tiarra Cummings on 09-03-2024 Color (U) Color of Urine by Auto Yellow Fi [facility] Complete Blood Count Auto Di ffon 09-03-2024 Basophils (Bld) [#/Vol] 0.1 10*3/uL Normal 0.0-0.2 [facility] Comment on above: Result Comment: PERF ORMED BY: [place] [address] PATHOLOGIST [employer] AND [employer] GRANT SCHNEIDER M.D. Performed By: #### A DDONUAPLUS #### [address] Basophils/100 WBC (Bld) 1.0 % Normal . [facility] Comment on above: Performed By: #### A DDONUAPLUS #### [address] Eosinophils (Bld) [#/Vol] 0.1 10*3/uL Normal 0.0-0.45 [facility] Comment on above: Performed By: #### A DDONUAPLUS #### [address] Eosinophils/100 WBC (Bld) 1.4 % Normal . [facility] Comment on above: Performed By: #### A DDONUAPLUS #### [address] Erythrocyte distribution width (RBC) [Ratio] 16.4 % High 12.0-14.8 [facility] Comment on above: Performed By: #### A DDONUAPLUS #### [address] Hematocrit (Bld) [Volume fraction] 32.0 % Low 38.8-50.0 [facility] Comment on above: Performed By: #### A DDONUAPLUS #### [address] [place] [address] [place] Hemoglobin (Bld) [Mass/Vol] 10.3 g/dL Low 13.0-17.0 [facility] Comment on above: Performed By: #### A DDONUAPLUS #### [address] Lymphocytes (Bld) [#/Vol] 1.3 10*3/uL Normal 1.00-4.8 [facility] Comment on above: Performed By: #### A DDONUAPLUS #### [address] Lymphocytes/100 WBC (Bld) 24.7 % Normal . [facility] Comment on above: Performed By: #### A DDONUAPLUS #### [address] MCH (RBC) [Entitic mass] 24.3 pg Low 27.5-35.2 [facility] Comment on above: Performed By: #### A DDONUAPLUS #### [address] MCV (RBC) [Entitic vol] 75.6 fL Low 83.5-101 [facility] Comment on above: Performed By: #### A DDONUAPLUS #### [address] Mean Corpuscular HGB Conc 32.1 g/dL Low 32.5-35.6 [facility] Comment on above: Performed By: #### A DDONUAPLUS #### [place] [address] [place] Monocytes (Bld) [#/Vol] 0.7 10*3/uL Normal 0.0-0.8 [facility] Comment on above: Performed By: #### A DDONUAPLUS #### [place] [address] [place] Monocytes/100 WBC (Bld) 14.1 % Normal . [facility] Comment on above: Performed By: #### A DDONUAPLUS #### [address] Neutrophils (Bld) [#/Vol] 3.0 10*3/uL Normal 1.8-7.7 [facility] Comment on above: Performed By: #### A DDONUAPLUS #### [place] [address] [place] Neutrophils/100 WBC (Bld) 58.8 % Normal . [facility] Comment on above: Performed By: #### A DDONUAPLUS #### [address] NRBC% 0.2 /100{WBC} Normal 0-0.5 [facility] Comment on above: Performed By: #### A DDONUAPLUS #### [address] Platelet mean volume (Bld) [Entitic vol] 6.6 fL Normal 6.6-10.1 [facility] Comment on above: Performed By: #### A DDONUAPLUS #### [place] [address] [place] Platelets (Bld) [#/Vol] 218 10*3/uL Normal 150-450 [facility] Comment on above: Performed By: #### A DDONUAPLUS #### [place] [address] [place] RBC (Bld) [#/Vol] 4.23 10*6/uL Normal 3.90-5.60 [facility] Comment on above: Performed By: #### A DDONUAPLUS #### [place] [address] [place] WBC (Bld) [#/Vol] 5.1 10*3/uL Normal 4.1-10.5 [facility] Comment on above: Performed By: #### A DDONUAPLUS #### [place] [address] [place] Creatinine [Mass/volume] in Serum or PlasmaOrdered By: Magy Cummings on 09-03-2024 Creatinine [Mass/Vol] Creatinine [Mass/v olume] in Serum or Plasma High 0.70-1.30 [facility] Creatinine [Mass/volume] in UrineOrdered By: Magy Cummings on 09-03-2024 Creatinine (U) [Mass/Vol] Creatinine [Mass/volume] in Urine [facility] Comment on above: No reference range e stablished Dipstick and Microscopicon 1 11-03-2023 Appearance (U) Clear Normal Clear [facility] Comment on above: Order Comment: Reaso n for Exam Chronic kidney disease, stage 3 unspecified;Kade hy kid w cr Name Collection Type:: Clean-Voided Midstream Performed By: #### A DDONUAPLUS #### [place] [address] [place] Bacteria,Urine Rare Normal None Seen [facility] Comment on above: Order Comment: Reaso n for Exam Chronic kidney disease, stage 3 unspecified;Kade hy kid w cr Name Collection Type:: Clean-Voided Midstream Performed By: #### A DDONUAPLUS #### [place] [address] [place] Bilirubin,Urine Negative Normal Negative [facility] Comment on above: Order Comment: Reaso n for Exam Chronic kidney disease, stage 3 unspecified;Kade bella tilley w cr Name Collection Type:: Clean-Voided Midstream Performed By: #### A DDONUAPLUS #### [place] [address] [place] Color (U) Light-Yellow Normal Yellow [facility] Comment on above: Order Comment: Reaso n for Exam Chronic kidney disease, stage 3 unspecified;Kade hy kid w cr Name Collection Type:: Clean-Voided Midstream Performed By: #### A DDONUAPLUS #### [place] [address] [place] Glucose Ql (U) >= High Normal [facility] Comment on above: Order Comment: Reaso n for Exam Chronic kidney disease, stage 3 unspecified;Kade hy kid w cr Name Collection Type:: Clean-Voided Midstream Performed By: #### A DDONUAPLUS #### [facility] [address] [place] [address] [place] Hyaline Casts,Urine 0 [LPF] Normal 0-8 [facility] Comment on above: Order Comment: Reaso n for Exam Chronic kidney disease, stage 3 unspecified;Kade hy jarek w cr Name Collection Type:: Clean-Voided Midstream Performed By: #### A DDONUAPLUS #### [facility] [address] [place] [address] [place] Ketones Ql (U) Negative Normal Negative [facility] Comment on above: Order Comment: Reaso n for Exam Chronic kidney disease, stage 3 unspecified;Kade hy jarek w cr Name Collection Type:: Clean-Voided Midstream Performed By: #### A DDONUAPLUS #### [place] [address] [place] Leukocyte esterase Test strip Ql (U) Negative Normal Negative [facility] Comment on above: Order Comment: Reaso n for Exam Chronic kidney disease, stage 3 unspecified;Kade bella tilley w cr Name Collection Type:: Clean-Voided Midstream Performed By: #### A DDONUAPLUS #### [place] [id number] [place] Mucus,Urine Rare Normal [facility] Comment on above: Order Comment: Reaso n for Exam Chronic kidney disease, stage 3 unspecified;Kade bella tilley w cr Name Collection Type:: Clean-Voided Midstream Result Comment: PERF ORMED BY: [place] [address] PATHOLOGIST MOTOR AND [employer]ATOR [employer] GRANT SCHNEIDER M.D. Performed By: #### A DDONUAPLUS #### [place] [id number] [place] Nitrite,Urine Negative Normal Negative [facility] Comment on above: Order Comment: Reaso n for Exam Chronic kidney disease, stage 3 unspecified;Kade hy jarek w cr Name Collection Type:: Clean-Voided Midstream Performed By: #### A DDONUAPLUS #### [place] [id number] [place] Occult Blood,Urine Negative Normal Negative [facility] Comment on above: Order Comment: Reaso n for Exam Chronic kidney disease, stage 3 unspecified;Kade hy jarek w cr Name Collection Type:: Clean-Voided Midstream Performed By: #### A DDONUAPLUS #### [address] pH (U) 6.0 [pH] Normal 5.0-9.0 [facility] Comment on above: Order Comment: Reaso n for Exam Chronic kidney disease, stage 3 unspecified;Kade hy kid w cr Name Collection Type:: Clean-Voided Midstream Performed By: #### A DDONUAPLUS #### [address] Protein (U) [Mass/Vol] 70 mg/dL High Negative [facility] Comment on above: Order Comment: Reaso n for Exam Chronic kidney disease, stage 3 unspecified;Kade hy kid w cr Name Collection Type:: Clean-Voided Midstream Performed By: #### A DDONUAPLUS #### [address] RBC,Urine 1 [HPF] Normal 0-4 [facility] Comment on above: Order Comment: Reaso n for Exam Chronic kidney disease, stage 3 unspecified;Kade hy kid w cr Name Collection Type:: Clean-Voided Midstream Performed By: #### A DDONUAPLUS #### [address] Specificy [place],Urine 1.013 Normal 1.001-1.03 0 [facility] Comment on above: Order Comment: Reaso n for Exam Chronic kidney disease, stage 3 unspecified;Kade hy kid w cr Name Collection Type:: Clean-Voided Midstream Result Comment: Rech ecked by refractometer Performed By: #### A DDONUAPLUS #### [place] [address] [place] Urobilinogen,Urine Normal Normal Normal [facility] Comment on above: Order Comment: Reaso n for Exam Chronic kidney disease, stage 3 unspecified;Kade hy kid w cr Name Collection Type:: Clean-Voided Midstream Performed By: #### A DDONUAPLUS #### [place] [address] [place] WBC,Urine 1 [HPF] Normal 0-4 [facility] Comment on above: Order Comment: Reaso n for Exam Chronic kidney disease, stage 3 unspecified;Kade hy kid w cr Name Collection Type:: Clean-Voided Midstream Performed By: #### A DDONUAPLUS #### [facility] [address] [place] [address] Eosinophils Auto (Bld) [#/Vo l]Ordered By: Magy Emiliano on 09-03-2024 Eosinophils (Bld) [#/Vol] Automated eosinophil count 0.0-0.45 [facility] Eosinophils/100 WBC Auto (Bl d)Ordered By: Magy Emiliano on 09-03-2024 Eosinophils/100 WBC (Bld) Automated eosinophil % . [facility] Epithelial cells.squamous [# /area] in Urine sediment by Automated countOrdered By: Magy Emiliano on 09-03-2024 Epithelial cells.squamous Auto (Urine sed) [#/Area] Epithelial cells.squamous [#/area] in Urine sediment by Automated count [facility] Erythrocyte distribution wid th Auto (RBC) [Ratio]Ordered By: Magy Emiliano on 09-03-2024 Erythrocyte distribution width (RBC) [Ratio] Erythrocyte distribution width [Ratio] by Automated count High 12.0-14.8 [facility] Erythrocytes [#/area] in Uri ne sediment by Automated countOrdered By: Magy Emiliano on 09-03-2024 RBC Auto (Urine sed) [#/Area] Erythrocytes [#/area] in Urine sediment by Automated count 0-4 [facility] Ferritinon 09-03-2024 Ferritin [Mass/Vol] 30.7 ng/mL Normal 23.9-336.2 [facility] Comment on above: Order Comment: Reaso n for Exam Chronic kidney disease, stage 3 unspecified;Kade hy kid w cr Performed By: #### P TH #### [facility] [address] [place] [address] Ferritin [Mass/volume] in Se rum or PlasmaOrdered By: Magy Emiliano on 09-03-2024 Ferritin [Mass/Vol] Ferritin [Mass/volum e] in Serum or Plasma 23.9-336.2 [facility] Glucose [Mass/volume] in Ser um or PlasmaOrdered By: Magy Cummings on 09-03-2024 Glucose [Mass/Vol] Glucose [Mass/volume ] in Serum or Plasma 70-100 [facility] Comment on above: ADA recommended refe rence [...] in Urine by Test strip High Normal [facility] Hematocrit Auto (Bld) [Volum e fraction]Ordered By: Magy Cummings on 09-03-2024 Hematocrit (Bld) [Volume fraction] Hematocrit [Volume Fraction] of Blood by Automated count Low 38.8-50.0 [facility] Hemoglobin Test strip Ql (U) Ordered By: Magy Cummings on 09-03-2024 Hemoglobin Ql (U) Hemoglobin [Presence ] in Urine by Test strip Negative [facility] Hemoglobin [Mass/volume] in BloodOrdered By: Magy Cummings on 09-03-2024 Hemoglobin (Bld) [Mass/Vol] Hemoglobin [Mass/volume] in Blood Low 13.0-17.0 [facility] Hyaline casts [#/area] in Ur ine sediment by Automated countOrdered By: Mgay Cummings on 09-03-2024 Hyaline casts Auto (Urine sed) [#/Area] Hyaline casts [#/area] in Urine sediment by Automated count 0-8 [facility] Iron [Mass/volume] in Serum or PlasmaOrdered By: Magy Cummings on 09-03-2024 Iron [Mass/Vol] Iron [Mass/volume] i n Serum or Plasma Low 50-212 [facility] Iron and TIBC Profileon 08-16 % Iron Saturation 10.0 % Low 20-50 [facility] Comment on above: Order Comment: Reaso n for Exam Chronic kidney disease, stage 3 unspecified;Kade hy kid w cr Performed By: #### P TH #### [facility] [address] Iron [Mass/Vol] 32 ug/dL Low 50-212 [facility] Comment on above: Order Comment: Reaso n for Exam Chronic kidney disease, stage 3 unspecified;Kade hy kid w cr Performed By: #### P TH #### [facility] [address] Total Iron Binding Capacity 319 ug/dL Normal 255-450 [facility] Comment on above: Order Comment: Reaso n for Exam Chronic kidney disease, stage 3 unspecified;Kade hy kid w cr Performed By: #### P TH #### [facility] [address] Transferrin [Mass/Vol] 228 mg/dL Normal 203-362 [facility] Comment on above: Order Comment: Reaso n for Exam Chronic kidney disease, stage 3 unspecified;Kade hy kid w cr Performed By: #### P TH #### [facility] [address] Ketones Test strip Ql (U)Ord ered By: Magy Cummings on 09-03-2024 Ketones Ql (U) Ketones [Presence] i n Urine by Test strip Negative [facility] Leukocyte esterase [Presence ] in Urine by Test stripOrdered By: Magy Cummings on 09-03-2024 Leukocyte esterase Test strip Ql (U) Leukocyte esterase [Presence] in Urine by Test strip Negative [facility] Leukocytes [#/area] in Urine sediment by Automated countOrdered By: Magy Cummings on 09-03-2024 WBC Auto (Urine sed) [#/Area] Leukocytes [#/area] in Urine sediment by Automated count 0-4 [facility] Leukocytes [#/volume] correc anna for nucleated erythrocytes in Blood by Automated counOrdered By: Magy Cummings on 09-03-2024 WBC corrected for nucl RBC Auto (Bld) [#/Vol] Leukocytes [#/volume] corrected for nucleated erythrocytes in Blood by Automated coun 4.1-10.5 [facility] Lymphocytes Auto (Bld) [#/Vo l]Ordered By: Magy Giordanodir on 09-03-2024 Lymphocytes (Bld) [#/Vol] Lymphocytes [#/volume] in Blood by Automated count 1.00-4.8 [facility] Lymphocytes/100 WBC Auto (Bl d)Ordered By: Magy Emiliano on 09-03-2024 Lymphocytes/100 WBC (Bld) Lymphocytes/100 leukocytes in Blood by Automated count . [facility] MCH Auto (RBC) [Entitic mass ]Ordered By: Magy Emiliano on 09-03-2024 MCH (RBC) [Entitic mass] MCH [Entitic mass] by Automated count Low 27.5-35.2 [facility] MCHC Auto (RBC) [Mass/Vol]Or dered By: Magy Emiliano on 09-03-2024 MCHC (RBC) [Mass/Vol] MCHC [Mass/volume] by Automated count Low 32.5-35.6 [facility] MCV Auto (RBC) [Entitic vol] Ordered By: Magy Emiliano on 09-03-2024 MCV (RBC) [Entitic vol] MCV [Entitic volume] by Automated count Low 83.5-101 [facility] Magnesiumon 09-03-2024 Magnesium [Mass/Vol] 2.1 mg/dL Normal 1.9-2.7 [facility] Comment on above: Order Comment: Reaso n for Exam Chronic kidney disease, stage 3 unspecified;Kade hy kid w cr Performed By: #### P TH #### [facility] [address] [place] [address] Magnesium [Mass/volume] in S zoey or PlasmaOrdered By: Magy Emiliano on 09-03-2024 Magnesium [Mass/Vol] Magnesium [Mass/vol ume] in Serum or Plasma 1.9-2.7 [facility] Monocytes Auto (Bld) [#/Vol] Ordered By: Magy Emiliano on 09-03-2024 Monocytes (Bld) [#/Vol] Automated blood monocyte count 0.0-0.8 [facility] Monocytes/100 WBC Auto (Bld) Ordered By: Magy Emiliano on 09-03-2024 Monocytes/100 WBC (Bld) Automated monocyte % . [facility] Mucus [Presence] in Urine by AutomatedOrdered By: Magy Cummings on 09-03-2024 Mucus Auto Ql (U) Mucus [Presence] in Urine by Automated [facility] NT-proBNPon 09-03-2024 Natriuretic peptide B (Bld) [Mass/Vol] 7564 pg/mL High 0-376 [facility] Comment on above: Result Comment: The following cut-points have been suggested for the use of proBNP for the diagnostic evaluation of heart failure (HF) in patients with acute dyspnea: Modality Age Optimal Cut (years) Point Diagnosis (rule in HF) <50 450 pg/mL 50 - 75 900 pg/mL >75 1800 pg/mL Exclusion (rule out HF) Age independent 300 pg/mL Performed at: [facility] [place] [id number] [employer] Operator: Contreras Pollard PhD, Phone: [phone] PERFORMED BY: [place] [address] PATHOLOGIST MOTOR AND GENERATOR [employer] GRANT SCHNEIDER M.D. Performed By: #### A DDONUAPLUS #### [address] Natriuretic peptide.B prohor mickey N-Terminal [Mass/volume] in Serum or PlasmaOrdered By: NON STAFF on 09-03-2024 Natriuretic peptide.B prohormone N-Terminal [Mass/Vol] Natriuretic peptide.B prohormone N-Terminal [Mass/volume] in Serum or Plasma High 0-376 [facility] Comment on above: The following cut-po ints have been suggested for theuse of proBNP for the diagnostic evaluation of heartfailure (HF) in patients with acute dyspnea:Modality Age Optimal Cut (years) Point Diag nosis (rule in HF) <50 450 pg/mL 50 - 75 900 pg/mL >75 1800 pg/mLExclusion (rule out HF) Age independent 300 pg/mLPerformed at: - [id number] [place], [place] [id number] Director: Contreras Pollard PhD, Phone: [phone] Neutrophils Auto (Bld) [#/Vo l]Ordered By: Magy Cummings on 09-03-2024 Neutrophils (Bld) [#/Vol] Neutrophils [#/volume] in Blood by Automated count 1.8-7.7 [facility] Neutrophils/100 WBC Auto (Bl d)Ordered By: Magy Cummings on 09-03-2024 Neutrophils/100 WBC (Bld) Automated neutrophil % . [facility] Nitrite Test strip Ql (U)Ord ered By: Magy Cummings on 09-03-2024 Nitrite Ql (U) Nitrite [Presence] i n Urine by Test strip Negative [facility] No Panel InformationOrdered By: Magy Cummings on 09-03-2024 Estimated GFR (CKD-EPI) 33.016 mL/Min [facility] Creatinine Clearance (Chem N/A [facility] Nucleated erythrocytes [Pres ence] in Blood by Automated countOrdered By: Magy Cummings on 09-03-2024 Nucleated RBC Auto Ql (Bld) Nucleated erythrocytes [Presence] in Blood by Automated count 0-0.5 [facility] Parathyrin.intact [Mass/volu me] in Serum or PlasmaOrdered By: Magy Cummings on 09-03-2024 Parathyrin.intact [Mass/Vol] Parathyrin.intact [Mass/volume] in Serum or Plasma [facility] Parathyroid Hormone Intacton 09-03-2024 Parathyroid Hormone Intact 79.3 pg/mL Normal [facility] Comment on above: Order Comment: Reaso n for Exam Chronic kidney disease, stage 3 unspecified;Kade hy kid w cr Result Comment: PERF ORMED BY: [facility] [address] [place] [address] PATHOLOGIST MOTOR AND [employer]ATOR [employer] GRANT SCHNEIDER M.D. Performed By: #### P TH #### [facility] [address] [place] [address] [place] Phosphate [Mass/volume] in S zoey or PlasmaOrdered By: Magy Cummings on 09-03-2024 Phosphate [Mass/Vol] Phosphate [Mass/vol ume] in Serum or Plasma 2.5-4.5 [facility] Platelet mean volume Auto (B ld) [Entitic vol]Ordered By: Magy Cummings on 09-03-2024 Platelet mean volume (Bld) [Entitic vol] Platelet mean volume [Entitic volume] in Blood by Automated count 6.6-10.1 [facility] Platelets Auto (Bld) [#/Vol] Ordered By: Magy Cummings on 09-03-2024 Platelets (Bld) [#/Vol] Platelets [#/volume] in Blood by Automated count 150-450 [facility] Potassium [Moles/volume] in Serum or PlasmaOrdered By: Magy Cummings on 09-03-2024 Potassium [Moles/Vol] Potassium [Moles/v olume] in Serum or Plasma 3.5-5.1 [facility] Protein Creat Ratio Ur Rando mon 09-03-2024 Creatinine, Urine (Random) 46.00 mg/dL Normal [facility] Comment on above: Order Comment: Reaso n for Exam Chronic kidney disease, stage 3 unspecified;Kade hy kid w cr Name Collection Type:: Clean-Voided Midstream Result Comment: No r eference range established Performed By: #### A DDONUAPLUS #### [facility] [address] [place] [id number] [place] Protein (U) [Mass/Vol] 108 mg/dL High 0-9 [facility] Comment on above: Order Comment: Reaso n for Exam Chronic kidney disease, stage 3 unspecified;Kade hy kid w cr Name Collection Type:: Clean-Voided Midstream Performed By: #### A DDONUAPLUS #### [facility] [address] [place] [id number] [place] Urine Protein/Creatinine Ratio 2348 mg/g{Cre} High 0-200 [facility] Comment on above: Order Comment: Reaso n for Exam Chronic kidney disease, stage 3 unspecified;Kade hy kid w cr Name Collection Type:: Clean-Voided Midstream Result Comment: PERF ORMED BY: [place] [address] PATHOLOGIST MOTOR AND GENERATOR [employer] GRANT SCHNEIDER M.D. Performed By: #### A DDONUAPLUS #### [facility] [address] [place] [id number] [facility] Protein Test strip (U) [Mass /Vol]Ordered By: Magy Giordanodir on 09-03-2024 Protein (U) [Mass/Vol] Protein [Mass/vol ume] in Urine by Test strip High Negative [facility] Protein [Mass/volume] in Uri neOrdered By: Magy Emiliano on 09-03-2024 Protein (U) [Mass/Vol] Protein [Mass/vol ume] in Urine High 0-9 [facility] RBC Auto (Bld) [#/Vol]Ordere d By: Magy Emiliano on 09-03-2024 RBC (Bld) [#/Vol] Erythrocytes [#/volu me] in Blood by Automated count 3.90-5.60 [facility] Renal Function Panelon 09-03 Albumin [Mass/Vol] 3.6 g/dL Normal 3.5-5.7 [facility] Comment on above: Order Comment: Reaso n for Exam Chronic kidney disease, stage 3 unspecified;Kade hy kid w cr Result Comment: PERF ORMED BY: [place] [address] PATHOLOGIST MOTOR AND GENERATOR [employer] GRANT SCHNEIDER M.D. Performed By: #### P TH #### [facility] [address] [place] [id number] [facility] [facility] Anion gap [Moles/Vol] 8.1 mmol/L Normal 6.0-15.0 [facility] Comment on above: Order Comment: Reaso n for Exam Chronic kidney disease, stage 3 unspecified;Kade hy kid w cr Performed By: #### P TH #### [facility] [address] [id number] [place] Calcium [Mass/Vol] 9.7 mg/dL Normal 8.6-10.3 [facility] Comment on above: Order Comment: Reaso n for Exam Chronic kidney disease, stage 3 unspecified;Kade hy kid w cr Performed By: #### P TH #### [facility] [address] [id number] [place] Chloride [Moles/Vol] 103 mmol/L Normal 98-107 [facility] Comment on above: Order Comment: Reaso n for Exam Chronic kidney disease, stage 3 unspecified;Kade hy kid w cr Performed By: #### P TH #### [facility] [address] [id number] [facility] CO2 [Moles/Vol] 31.8 mmol/L High 21.0-31.0 [facility] Comment on above: Order Comment: Reaso n for Exam Chronic kidney disease, stage 3 unspecified;Kade hy kid w cr Performed By: #### P TH #### [facility] [address] [id number] [facility] Creatinine [Mass/Vol] 2.09 mg/dL High 0.70-1.30 [facility] Comment on above: Order Comment: Reaso n for Exam Chronic kidney disease, stage 3 unspecified;Kade hy kid w cr Performed By: #### P TH #### [facility] [address] [place], [place] [id number] [facility] Estimated GFR 33.016 mL/Min Normal [facility] Comment on above: Order Comment: Reaso n for Exam Chronic kidney disease, stage 3 unspecified;Kade hy kid w cr Performed By: #### P TH #### [facility] [address] [place], [place] [phone] [place] Glucose [Mass/Vol] 91 mg/dL Normal 70-100 [facility] Comment on above: Order Comment: Reaso n for Exam Chronic kidney disease, stage 3 unspecified;Kade hy kid w cr Result Comment: Chauvin om Glucose Reference Range is dependent on time and content of last meal. Glucose of more than 200 mg/dL in a nonstressed, ambulatory subject supports the diagnosis of Diabetes Mellitus. ADA recommended reference range Performed By: #### P TH #### [facility] [address] Phosphate [Mass/Vol] 3.4 mg/dL Normal 2.5-4.5 [facility] Comment on above: Order Comment: Reaso n for Exam Chronic kidney disease, stage 3 unspecified;Kade hy kid w cr Performed By: #### P TH #### [facility] [address] Potassium [Moles/Vol] 3.9 mmol/L Normal 3.5-5.1 [facility] Comment on above: Order Comment: Reaso n for Exam Chronic kidney disease, stage 3 unspecified;Kade hy kid w cr Performed By: #### P TH #### [facility] [address] Sodium [Moles/Vol] 139 mmol/L Normal 136-145 [facility] Comment on above: Order Comment: Reaso n for Exam Chronic kidney disease, stage 3 unspecified;Kade hy kid w cr Performed By: #### P TH #### [facility] [address] [id number] [facility] Urea nitrogen [Mass/Vol] 22 mg/dL Normal 7-25 [facility] Comment on above: Order Comment: Reaso n for Exam Chronic kidney disease, stage 3 unspecified;Kade hy kid w cr Performed By: #### P TH #### [facility] [address] [place] [address] Serum or plasma anion gap de terminationOrdered By: Magy Cummings on 09-03-2024 Anion gap [Moles/Vol] Serum or plasma an ion gap determination 6.0-15.0 [facility] Serum or plasma iron binding capacity measurement (mass/volume)Ordered By: Magy Cummings on 09-03-2024 Iron binding capacity [Mass/Vol] Iron binding capacity [Mass/volume] in Serum or Plasma 255-450 [facility] Serum or plasma iron saturat ion measurement (mass fraction)Ordered By: Magy Cummings on 09-03-2024 Iron saturation [Mass fraction] Iron saturation [Mass Fraction] in Serum or Plasma Low 20-50 [facility] Sodium [Moles/volume] in Ser um or PlasmaOrdered By: Magy Cummings on 09-03-2024 Sodium [Moles/Vol] Sodium [Moles/volume ] in Serum or Plasma 136-145 [facility] Specific gravity of Urine by RefractometryOrdered By: Magy Cummings on 09-03-2024 Specific gravity Refractometry (U) [Rel density] Specific gravity of Urine by Refractometry 1.001-1.03 0 [facility] Comment on above: Rechecked by refract ometer Transferrin [Mass/volume] in Serum or PlasmaOrdered By: Magy Cummings on 09-03-2024 Transferrin [Mass/Vol] Transferrin [Mass /volume] in Serum or Plasma 203-362 [facility] Urate [Mass/volume] in Serum or PlasmaOrdered By: Magy Cummings on 09-03-2024 Urate [Mass/Vol] Urate [Mass/volume] in Serum or Plasma 4.4-7.6 [facility] Urea nitrogen [Mass/volume] in Serum or PlasmaOrdered By: Magy Cummings on 09-03-2024 Urea nitrogen [Mass/Vol] Urea nitrogen [Mass/volume] in Serum or Plasma 7-25 [facility] Uric Acidon 09-03-2024 Urate [Mass/Vol] 7.0 mg/dL Normal 4.4-7.6 [facility] Comment on above: Order Comment: Reaso n for Exam Chronic kidney disease, stage 3 unspecified;Kade hy kid w cr Performed By: #### P TH #### [address] Urine protein/creatinine rat ioOrdered By: Magy Cummings on 09-03-2024 Protein/Creatinine (U) [Ratio] Urine protein/creatinine ratio High 0-200 [facility] Urobilinogen Test strip (U) [Mass/Vol]Ordered By: Magy Cummings on 09-03-2024 Urobilinogen (U) [Mass/Vol] Urobilinogen [Mass/volume] in Urine by Test strip Normal [facility] Vitamin D 25 Hydroxy Totalon 09-03-2024 Vitamin D 25 Hydroxy Total 29.1 ng/mL Low 30-100 [facility] Comment on above: Order Comment: Reaso n for Exam Chronic kidney disease, stage 3 unspecified;Kade hy kid w cr Result Comment: SHI MIN D STATUS 25(OH)VITAMIN D RANGE (ng/mL) Deficient <20 Insufficient 20 to <30 Sufficient 30 to 100 Reference: Jamal Ma, Chuckie MENDOZA, et al. Evaluation,treatment, and prevention of vitamin D deficiency; an Endocrine Society clinical practice guideline. JCEM. 2010; 96(7):1911-. PERFORMED BY: [place] [address] PATHOLOGIST [employer] GRANT SCHNEIDER M.D. Performed By: #### P TH #### [address] Vitamin D+Metabolites [Mass/ volume] in Serum or PlasmaOrdered By: Magy Cummings on 09-03-2024 Vitamin D+Metabolites [Mass/Vol] Vitamin D+Metabolites [Mass/volume] in Serum or Plasma Low 30-100 [facility] Comment on above: VITAMIN D STATUS 25( OH)VITAMIN D RANGE (ng/mL) Deficient <20 Insufficient 20 to <30Sufficient 30 to 100Reference: Jamal Ma, Chuckie MENDOZA, et al. Evaluation,treatment, and prevention of vitamin D deficiency; an Endocrine Society clinical practice guideline. JCEM. 2010; 96(7):1911-. WBC Auto (Bld) [#/Vol]Ordere d By: Magy Cummings on 09-03-2024 WBC (Bld) [#/Vol] Leukocytes [#/volume ] in Blood by Automated count 4.1-10.5 [facility] pH Test strip (U)Ordered By: Magy Cummings on 09-03-2024 pH (U) pH of Urine by Test strip 5.0-9.0 [facility] Erythrocyte distribution wid th Auto (RBC) [Ratio]on 06-03-2024 Erythrocyte distribution width (RBC) [Ratio] 14.5 % 11.0-15.0 [facility] Estimated glomerular filtrat ion rate (GFR) non- Americanon 06-03-2024 GFR/1.73 sq M.predicted among non-blacks MDRD (S/P/Bld) [Vol rate/Area] 33 mL/min/{1.73_m2} Low >=60 [facility] Glucose mean value [Mass/vol ume] in Blood Estimated from glycated hemoglobinon 06-03-2024 Average glucose Estimated from glycated hemoglobin (Bld) [Mass/Vol] 94 mg/dL [facility] Hematocrit Auto (Bld) [Volum e fraction]on 06-03-2024 Hematocrit (Bld) [Volume fraction] 33.5 % Low 42.0-54.0 [facility] Hemoglobin [Mass/volume] in Bloodon 06-03-2024 Hemoglobin (Bld) [Mass/Vol] 10.6 g/dL Low 14.0-18.0 [facility] Laboratory - Chemistry and C hemistry - challengeon 06-03-2024 Albumin [Mass/Vol] 3.0 g/dL Low 3.4-5.0 [facility] Calcium [Mass/Vol] 9.9 mg/dL 8.5-10.1 [facility] Chloride [Moles/Vol] 101 mmol/L 98-107 [facility] CO2 [Moles/Vol] 31.9 mmol/L 21.0-32.0 [facility] Creatinine [Mass/Vol] 2.00 mg/dL High 0.70-1.30 [facility] GFR/1.73 sq M.predicted MDRD (S/P/Bld) [Vol rate/Area] 40 mL/min/{1.73_m2} Low >=60 [facility] Glucose [Mass/Vol] 106 mg/dL 74-106 [facility] Magnesium [Mass/Vol] 1.8 mg/dL 1.8-2.4 [facility] Potassium [Moles/Vol] 4.1 mmol/L 3.5-5.1 [facility] Sodium [Moles/Vol] 137 mmol/L 136-145 [facility] Urate [Mass/Vol] 7.1 mg/dL 3.5-7.2 [facility] Urea nitrogen [Mass/Vol] 20.0 mg/dL High 7.0-18.0 [facility] Urea nitrogen/Creatinine [Mass ratio] 10.0 mg/mg [facility] Bilirubin Ql (U) Negative NEGATIVE [facility] Glucose (U) [Mass/Vol] Negative NEGATIVE [facility] Ketones Ql (U) Negative NEGATIVE [facility] pH (U) 6.0 [pH] 5.0-9.0 [facility] Specific gravity (U) [Rel density] 1.025 1.005-1.02 5 [facility] Urobilinogen Qn (U) 1.0 {Beatriz'U}/dL 0.2-1.0 [facility] Laboratory - Hematology and Cell countson 06-03-2024 HbA1c (Bld) [Mass fraction] 4.9 % 4.5-6.2 [facility] Comment on above: ADA RECOMMENDED LIMI T 4.0 - 6.0ADA THERAPEUTIC TARGET < 7.0ACTION SUGGESTED> 7.0 Laboratory - Specimen inform ationon 06-03-2024 Appearance (U) CLEAR CLEAR [facility] Color (U) YELLOW YELLOW [facility] Laboratory - Urinalysison Hyaline casts LM Ql (Urine sed) FEW [facility] Leukocyte esterase Test strip Ql (U) Negative NEGATIVE [facility] Mucus Ql (Urine sed) SMALL Abnormal NONE SEEN [facility] Nitrite Ql (U) Negative NEGATIVE [facility] Protein (U) [Mass/Vol] 385.3 mg/dL High <=11.9 [facility] Protein Ql (U) >=300 mg/dL Abnormal NEG/TRACE [facility] Leukocytes [#/volume] correc anna for nucleated erythrocytes in Blood by Automated counon 06-03-2024 WBC corrected for nucl RBC Auto (Bld) [#/Vol] 5.9 10 3/uL 4.0-11.0 [facility] MCH Auto (RBC) [Entitic mass ]on 06-03-2024 MCH (RBC) [Entitic mass] 26.4 pg 25.9-34.0 [facility] MCHC Auto (RBC) [Mass/Vol]on 06-03-2024 MCHC (RBC) [Mass/Vol] 31.6 g/dL 29.9-35.2 [facility] MCV Auto (RBC) [Entitic vol] on 06-03-2024 MCV (RBC) [Entitic vol] 83.3 fL 80.0-94.0 [facility] No Panel Informationon 06-03 25-Hydroxy Vitamin D Total 19.9 ng/mL [facility] Comment on above: <20 ng/mL Vit D defi cient20-<30 ng/mL Vit D [id number] ng/mL Vit D sufficient>100 ng/mL Potential Toxicity Parathyroid Hormone (Intact) 53 pg/mL 15-65 [facility] Comment on above: Performed at: [address] [id number] Director: Contreras Pollard PhD, Phone: [phone] Phosphorus Level 3.1 mg/dL 2.6-4.7 [facility] Urine Bacteria NONE SEEN #/HPF NONE SEEN [facility] Urine Occult Blood Negative NEGATIVE [facility] Urine Other Casts SEEN #/LPF Abnormal NONE SEEN [facility] Urine Other Crystals None Seen #/HPF None Seen [facility] Urine Random Creatinine 145.44 mg/dL 20.00-300. 00 [facility] Urine RBC 0-2 #/HPF 0-2 [facility] Urine Squamous Epithelial Cells RARE #/LPF NONE/RARE [facility] Urine WBC 2-5 #/HPF Abnormal NONE SEEN [facility] Platelet mean volume Auto (B ld) [Entitic vol]on 06-03-2024 Platelet mean volume (Bld) [Entitic vol] 9.0 fL Low 9.5-13.5 [facility] Platelets Auto (Bld) [#/Vol] on 06-03-2024 Platelets (Bld) [#/Vol] 222 10 3/uL 150-450 [facility] RBC Auto (Bld) [#/Vol]on RBC (Bld) [#/Vol] 4.02 10 6/uL Low 4.70-6.10 [facility] Serum or plasma anion gap de terminationon 06-03-2024 Anion gap [Moles/Vol] 8.2 mmol/L [facility] Urine protein/creatinine rat ioon 06-03-2024 Protein/Creatinine (U) [Ratio] 2.65 [facility] Albumin [Mass/volume] in Ser um or Plasma by Bromocresol green (BCG) dye binding methoOrdered By: Magy Cummings on 03-06-2024 Albumin BCG dye [Mass/Vol] 3.5 g/dL 3.5-5.7 [facility] Calcium [Mass/volume] in Ser um or PlasmaOrdered By: Magy Emiliano on 03-06-2024 Calcium [Mass/Vol] 9.8 mg/dL Normal 8.6-10.3 [facility] Comment on above: Performed By: #### R ENAL #### [facility] [address] [place] [address] [place] Carbon dioxide, total [Moles /volume] in Serum or PlasmaOrdered By: Magy Cummings on 03-06-2024 CO2 [Moles/Vol] 31.1 mmol/L High 21.0-31.0 [facility] Comment on above: Performed By: #### R ENAL #### [facility] [address] [place] [address] [place] Chloride [Moles/volume] in S zoey or PlasmaOrdered By: Magy Julior on 03-06-2024 Chloride [Moles/Vol] 104 mmol/L Normal 98-107 [facility] Comment on above: Performed By: #### R ENAL #### [facility] [address] [place] [address] [place] Creatinine [Mass/volume] in Serum or PlasmaOrdered By: Magy Emiliano on 03-06-2024 Creatinine [Mass/Vol] 1.81 mg/dL High 0.70-1.30 [facility] Comment on above: Performed By: #### R ENAL #### [facility] [address] [place] [address] [place] Glucose [Mass/volume] in Ser um or PlasmaOrdered By: Magy Cummings on 03-06-2024 Glucose [Mass/Vol] 101 mg/dL High 70-100 [facility] Comment on above: ADA recommended refe rence rangeRandom Glucose Reference Range is dependent on time and content of last meal. Glucose of more than 200 mg/dL in a nonstressed, ambulatory subject supports the diagnosis of Diabetes Mellitus. Result Comment: Chauvin om Glucose Reference Range is dependent on time and content of last meal. Glucose of more than 200 mg/dL in a nonstressed, ambulatory subject supports the diagnosis of Diabetes Mellitus. ADA recommended reference range Performed By: #### R ENAL #### [address] No Panel InformationOrdered By: Magy Cummings on 03-06-2024 Estimated GFR (CKD-EPI) 39.237 mL/Min [facility] Creatinine Clearance (Chem N/A [facility] Phosphate [Mass/volume] in S zoey or PlasmaOrdered By: Magy Cummings on 03-06-2024 Phosphate [Mass/Vol] 2.8 mg/dL Normal 2.5-4.5 [facility] Comment on above: Performed By: #### R ENAL #### [address] Potassium [Moles/volume] in Serum or PlasmaOrdered By: Magy Cummings on 03-06-2024 Potassium [Moles/Vol] 3.5 mmol/L Normal 3.5-5.1 [facility] Comment on above: Performed By: #### R ENAL #### [address] Renal Function Panelon 03-06 Albumin [Mass/Vol] 3.5 g/dL Normal 3.5-5.7 [facility] Comment on above: Result Comment: PERF ORMED BY: [place] [address] PATHOLOGIST MOT[employer] SALINA BLOCK M.D. Performed By: #### R ENAL #### [facility] [address] [place] [address] GFR/1.73 sq M.predicted MDRD (S/P/Bld) [Vol rate/Area] 39.237 mL/min/{1.73_m2} Normal [facility] Comment on above: Performed By: #### R ENAL #### [address] Serum or plasma anion gap de terminationOrdered By: Magy Emiliano on 03-06-2024 Anion gap [Moles/Vol] 9.4 mmol/L Normal 6.0-15.0 [facility] Comment on above: Performed By: #### R ENAL #### [address] Sodium [Moles/volume] in Ser um or PlasmaOrdered By: Magy Emiliano on 03-06-2024 Sodium [Moles/Vol] 141 mmol/L Normal 136-145 [facility] Comment on above: Performed By: #### R ENAL #### [address] Urea nitrogen [Mass/volume] in Serum or PlasmaOrdered By: Magy Emiliano on 03-06-2024 Urea nitrogen [Mass/Vol] 25 mg/dL Normal 7-25 [facility] Comment on above: Performed By: #### R ENAL #### [address] Automated erythrocytes count in urine sediment (number/area)Ordered By: Magy Emiliano on 02-15-2024 RBC Auto (Urine sed) [#/Area] 3-4 [HPF] 0-4 [facility] Automated leukocytes count i n urine sediment (number/area)Ordered By: Magy Emiliano on 02-15-2024 WBC Auto (Urine sed) [#/Area] 3-4 [HPF] 0-4 [facility] Automated urine color determ inationOrdered By: Magy Emiliano on 02-15-2024 Color (U) Yellow Normal Yellow [facility] Comment on above: Order Comment: Name Collection Type:: Voided Performed By: #### R ENAL #### [address] Automated urine hyaline cast s count (number/volume)Ordered By: Magy Cummings on 02-15-2024 Hyaline casts Auto (U) [#/Vol] 10-19 [LPF] 0-1 [facility] Bilirubin Test strip Ql (U)O rdered By: Magy Cummings on 02-15-2024 Bilirubin Ql (U) Negative Negative [facility] Casts typing in urine sedime nt by light microscopyOrdered By: Magy Cummings on 02-15-2024 Casts LM Nom (Urine sed) None seen [LPF] None Seen [facility] Creatinine [Mass/volume] in UrineOrdered By: Magy Cummings on 02-15-2024 Creatinine (U) [Mass/Vol] 157.0 mg/dL [facility] Comment on above: No reference range e stablished Dipstick and Microscopicon 0 02-15-2024 Appearance (U) Clear Normal Clear [facility] Comment on above: Order Comment: Name Collection Type:: Voided Performed By: #### R ENAL #### [place] [address] [place] Bacteria,Urine None Seen Normal None Seen [facility] Comment on above: Order Comment: Name Collection Type:: Voided Performed By: #### R ENAL #### [place] [address] [place] Bilirubin,Urine Negative Normal Negative [facility] Comment on above: Order Comment: Name Collection Type:: Voided Performed By: #### R ENAL #### [place] [address] [place] Glucose Ql (U) 250 mg/dL High Normal [facility] Comment on above: Order Comment: Name Collection Type:: Voided Performed By: #### R ENAL #### [place] [address] [place] Hyaline Casts,Urine 10-19 High 0-1 [facility] Comment on above: Order Comment: Name Collection Type:: Voided Performed By: #### R ENAL #### [address] Ketones Ql (U) Negative Normal Negative [facility] Comment on above: Order Comment: Name Collection Type:: Voided Performed By: #### R ENAL #### [address] Leukocyte esterase Test strip Ql (U) Negative Normal Negative [facility] Comment on above: Order Comment: Name Collection Type:: Voided Performed By: #### R ENAL #### [address] Nitrite,Urine Negative Normal Negative [facility] Comment on above: Order Comment: Name Collection Type:: Voided Performed By: #### R ENAL #### [address] Occult Blood,Urine Trace High Negative [facility] Comment on above: Order Comment: Name Collection Type:: Voided Performed By: #### R ENAL #### [address] Other Casts,Urine None Seen Normal None Seen [facility] Comment on above: Order Comment: Name Collection Type:: Voided Result Comment: PERF ORMED BY: [place] [address] PATHOLOGIST [employer] SALINA BLOCK M.D. Performed By: #### R ENAL #### [address] Protein,Urine >=1000 High Negative [facility] Comment on above: Order Comment: Name Collection Type:: Voided Performed By: #### R ENAL #### [place] [address] [place] RBC,Urine 3-4 Normal 0-4 [facility] Comment on above: Order Comment: Name Collection Type:: Voided Performed By: #### R ENAL #### [address] Specificy [place],Urine 1.026 Normal 1.001-1.03 0 [facility] Comment on above: Order Comment: Name Collection Type:: Voided Performed By: #### R ENAL #### [facility] [address] [place] [address] [place] Squamous Epithelial Cell,Urine 3-4 High 0-2 [facility] Comment on above: Order Comment: Name Collection Type:: Voided Performed By: #### R ENAL #### [facility] [address] [place] [address] [place] Urobilinogen,Urine Normal Normal Normal [facility] Comment on above: Order Comment: Name Collection Type:: Voided Performed By: #### R ENAL #### [facility] [address] [place] [address] [place] WBC,Urine 3-4 Normal 0-4 [facility] Comment on above: Order Comment: Name Collection Type:: Voided Performed By: #### R ENAL #### [facility] [address] [place] [address] [place] Ketones Auto test strip (U) [Mass/Vol]Ordered By: Magy Cummings on 02-15-2024 Ketones (U) [Mass/Vol] Negative Negative [facility] Nitrite Test strip Ql (U)Ord ered By: Magy Giordanodir on 02-15-2024 Nitrite Ql (U) Negative Negative [facility] Protein Auto test strip (U) [Mass/Vol]Ordered By: Magy Giordanodir on 02-15-2024 Protein (U) [Mass/Vol] mg/dL Negative [facility] Protein Creat Ratio Ur Rando mon 02-15-2024 Creatinine, Urine (Random) 157.0 mg/dL Normal [facility] Comment on above: Result Comment: No r eference range established Performed By: #### R ENAL #### [facility] [address] [place] [address] [place] Protein, Urine (Random) > 600 High 0-9 [facility] Comment on above: Performed By: #### R ENAL #### [facility] [address] [place] [address] [place] Urine Protein/Creatinine Ratio Not performed Normal 0-200 [facility] Comment on above: Result Comment: PERF ORMED BY: [place] [address] PATHOLOGIST [employer] AND [employer] SALINA BLOCK M.D. Performed By: #### R ENAL #### [address] Protein [Mass/volume] in Uri neOrdered By: Magy Cummings on 02-15-2024 Protein (U) [Mass/Vol] mg/dL 0-9 Fi [facility] Specific gravity Auto test s trip (U) [Rel density]Ordered By: Magy Cummings on 02-15-2024 Specific gravity (U) [Rel density] 1.026 1.001-1.03 0 [facility] Squamous epithelial cells de tection in urine sediment by light microscopyOrdered By: Magy Cummings on 02-15-2024 Epithelial cells.squamous LM Ql (Urine sed) 3-4 [HPF] 0-2 [facility] Urine bacteria detection by automated methodOrdered By: Mgay Cummings on 02-15-2024 Bacteria Auto Ql (U) None seen [HPF] None Seen [facility] [facility] clarity by refractomet ry automatedOrdered By: Magy Cummings on 02-15-2024 Clarity Refractometry automated (U) Clear Clear [facility] Urine glucose measurement by automated test strip (mass/volume)Ordered By: Magy Cummings on 02-15-2024 Glucose Auto test strip (U) [Mass/Vol] 250 mg/dL Normal [facility] Urine hemoglobin detection b y automated test stripOrdered By: Magy Cummings on 02-15-2024 Hemoglobin Auto test strip Ql (U) Trace Negative [facility] Urine leukocyte esterase det ection by automated test stripOrdered By: Magy Cummings on 02-15-2024 Leukocyte esterase Auto test strip Ql (U) Negative Negative [facility] Urine pH measurement by auto mated test stripOrdered By: Magy Cummings on 02-15-2024 pH (U) 6.0 [pH] Normal 5.0-9.0 [facility] Comment on above: Order Comment: Name Collection Type:: Voided Performed By: #### R ENAL #### [facility] [address] Urine protein/creatinine rat ioOrdered By: Magy Cummings on 02-15-2024 Protein/Creatinine (U) [Ratio] TNP [facility] Comment on above: Test not performed Urobilinogen Auto test strip (U) [Mass/Vol]Ordered By: Magy Cummings on 02-15-2024 Urobilinogen (U) [Mass/Vol] Normal mg/dL Normal [facility] Albumin [Mass/volume] in Ser um or Plasma by Bromocresol green (BCG) dye binding methoOrdered By: Magy Cummings on 02-14-2024 Albumin BCG dye [Mass/Vol] 3.6 g/dL 3.5-5.7 [facility] Calcium [Mass/volume] in Ser um or PlasmaOrdered By: Magy Cummings on 02-14-2024 Calcium [Mass/Vol] 9.3 mg/dL Normal 8.6-10.3 [facility] Comment on above: Performed By: #### R ENAL #### [facility] [address] [place] [address] [place] Carbon dioxide, total [Moles /volume] in Serum or PlasmaOrdered By: Magy Cummings on 02-14-2024 CO2 [Moles/Vol] 30.7 mmol/L Normal 21.0-31.0 [facility] Comment on above: Performed By: #### R ENAL #### [facility] [address] [place] [address] [place] Chloride [Moles/volume] in S zoey or PlasmaOrdered By: Magy Emiliano on 02-14-2024 Chloride [Moles/Vol] 102 mmol/L Normal 98-107 [facility] Comment on above: Performed By: #### R ENAL #### [facility] [address] [place] [address] [place] Creatinine [Mass/volume] in Serum or PlasmaOrdered By: Magy Emiliano on 02-14-2024 Creatinine [Mass/Vol] 1.76 mg/dL High 0.70-1.30 [facility] Comment on above: Performed By: #### R ENAL #### [facility] [address] Glucose [Mass/volume] in Ser um or PlasmaOrdered By: Magy Cummings on 02-14-2024 Glucose [Mass/Vol] 113 mg/dL High 70-100 [facility] Comment on above: ADA recommended refe rence rangeRandom Glucose Reference Range is dependent on time and content of last meal. Glucose of more than 200 mg/dL in a nonstressed, ambulatory subject supports the diagnosis of Diabetes Mellitus. Result Comment: [place]auvin om Glucose Reference Range is dependent on time and content of last meal. Glucose of more than 200 mg/dL in a nonstressed, ambulatory subject supports the diagnosis of Diabetes Mellitus. ADA recommended reference range Performed By: #### R ENAL #### [address] No Panel InformationOrdered By: Magy Cummings on 02-14-2024 Estimated GFR (CKD-EPI) 40.578 mL/Min [facility] Creatinine Clearance (Chem N/A [facility] Phosphate [Mass/volume] in S zoey or PlasmaOrdered By: Magy Cummings on 02-14-2024 Phosphate [Mass/Vol] 3.1 mg/dL Normal 2.5-4.5 [facility] Comment on above: Performed By: #### R ENAL #### [address] Potassium [Moles/volume] in Serum or PlasmaOrdered By: Magy Cummings on 02-14-2024 Potassium [Moles/Vol] 3.9 mmol/L Normal 3.5-5.1 [facility] Comment on above: Performed By: #### R ENAL #### [address] Renal Function Panelon 02-13 Albumin [Mass/Vol] 3.6 g/dL Normal 3.5-5.7 [facility] Comment on above: Result Comment: PERF ORMED BY: [place] [address] PATHOLOGIST MOTOR AND GENERATOR BRUSH CUTTER SALINA BLOCK M.D. Performed By: #### R ENAL #### [address] GFR/1.73 sq M.predicted MDRD (S/P/Bld) [Vol rate/Area] 40.578 mL/min/{1.73_m2} Normal [facility] Comment on above: Performed By: #### R ENAL #### [address] Serum or plasma anion gap de terminationOrdered By: Magy Emiliano on 02-14-2024 Anion gap [Moles/Vol] 12.2 mmol/L Normal 6.0-15.0 [facility] Comment on above: Performed By: #### R ENAL #### [place] [address] [place] Sodium [Moles/volume] in Ser um or PlasmaOrdered By: Magy Emiliano on 02-14-2024 Sodium [Moles/Vol] 141 mmol/L Normal 136-145 [facility] Comment on above: Performed By: #### R ENAL #### [address] Urea nitrogen [Mass/volume] in Serum or PlasmaOrdered By: Magy Emiliano on 02-14-2024 Urea nitrogen [Mass/Vol] 16 mg/dL Normal 7-25 [facility] Comment on above: Performed By: #### R ENAL #### [place] [address] [place] Albumin [Mass/volume] in Ser um or PlasmaOrdered By: Magy Emiliano on 01-26-2024 Albumin [Mass/Vol] 3.5 g/dL Normal 2.9-4.4 [facility] Comment on above: Performed By: #### I FE,URINE #### [facility] , Albumin [Mass/volume] in Ser um or Plasma by Bromocresol green (BCG) dye binding methoOrdered By: Magy Emiliano on 01-26-2024 Albumin BCG dye [Mass/Vol] 3.6 g/dL 3.5-5.7 [facility] Calcium [Mass/volume] in Ser um or PlasmaOrdered By: Magy Emiliano on 01-26-2024 Calcium [Mass/Vol] 9.5 mg/dL Normal 8.6-10.3 [facility] Comment on above: Performed By: #### K APPA, SPE W INTERPRET, GARCIA SERUM #### [facility] , #### RENAL #### [facility] [address] Carbon dioxide, total [Moles /volume] in Serum or PlasmaOrdered By: Magy Emiliano on 01-26-2024 CO2 [Moles/Vol] 31.8 mmol/L High 21.0-31.0 [facility] Comment on above: Performed By: #### K APPA, SPE W INTERPRET, GARCIA SERUM #### [facility] , #### RENAL #### [facility] [address] [place] [address] [place] Chloride [Moles/volume] in S zoey or PlasmaOrdered By: Magy Emiliano on 01-26-2024 Chloride [Moles/Vol] 100 mmol/L Normal 98-107 [facility] Comment on above: Performed By: #### K APPA, SPE W INTERPRET, GARCIA SERUM #### [facility] , #### RENAL #### [facility] [address] [place] [address] [place] Creatinine [Mass/volume] in Serum or PlasmaOrdered By: Magy Emiliano on 01-26-2024 Creatinine [Mass/Vol] 1.79 mg/dL High 0.70-1.30 [facility] Comment on above: Performed By: #### K APPA, SPE W INTERPRET, GARCIA SERUM #### [facility] , #### RENAL #### [facility] [address] [place] [address] [place] Free K+L LT Chains, Qn, Son 01-26-2024 Free Knappa Light Chains, S 65.2 mg/L High 3.3-19.4 [facility] Comment on above: Performed By: #### I FE,URINE #### [facility] , Free Lambda Light Chains, S 37.0 mg/L High 5.7-26.3 [facility] Comment on above: Performed By: #### I FE,URINE #### [facility] , Knappa/Lambda Ratio, S 1.76 High 0.26-1.65 [facility] Comment on above: Result Comment: Perf ormed at: [facility] [address] [id number] [employer] Operator: Contreras Pollard PhD, Phone: [phone] PERFORMED BY: [place] [address] PATHOLOGIST MOTOR AND GENERATOR BRUSH CUTTER SALINA BLOCK M.D. Performed By: #### I FE,URINE #### [facility] , Glucose [Mass/volume] in Ser um or PlasmaOrdered By: Magy Cummings on 01-26-2024 Glucose [Mass/Vol] 97 mg/dL Normal 70-100 [facility] Comment on above: ADA recommended refe rence rangeRandom Glucose Reference Range is dependent on time and content of last meal. Glucose of more than 200 mg/dL in a nonstressed, ambulatory subject supports the diagnosis of Diabetes Mellitus. Result Comment: [place] om Glucose Reference Range is dependent on time and content of last meal. Glucose of more than 200 mg/dL in a nonstressed, ambulatory subject supports the diagnosis of Diabetes Mellitus. ADA recommended reference range Performed By: #### K APPA, SPE W INTERPRET, GARCIA SERUM #### [facility] , #### RENAL #### [address] IgA [Mass/volume] in Serum o r PlasmaOrdered By: Magy Cummings on 01-26-2024 IgA [Mass/Vol] 146 mg/dL 61-437 [facility] IgG [Mass/volume] in Serum o r PlasmaOrdered By: Magy Cummings on 01-26-2024 IgG [Mass/Vol] 1171 mg/dL 603-1613 [facility] IgM [Mass/volume] in Serum o r PlasmaOrdered By: Magy Cummings on 01-26-2024 IgM [Mass/Vol] 190 mg/dL 15-143 [facility] Comment on above: Performed at: [facility] [address] [id number] Director: Contreras Pollard PhD, Phone: [phone] Immunofixation for UrineOrde red By: Magy Cummings on 01-26-2024 Interpretation Immunofixation (U) [Interp] See comment . [facility] Comment on above: No monoclonality det ected.Performed at: [facility] [address] [id number] Director: Contreras Pollard PhD, Phone: [phone] Immunofixation, (GARCIA), Urine on 01-26-2024 Immunofixation, (GARCIA), Urine Normal . [facility] Comment on above: Result Comment: No m onoclonality detected. Performed at: [facility] [address] [id number] [employer] Operator: Contreras Pollard PhD, Phone: [phone] PERFORMED BY: [address] [place] [address] PATHOLOGIST MOTOR AND GENERATOR BRUSH CUTTER SALINA BLOCK M.D. Performed By: #### I FE,URINE #### [facility] , Immunofixation,Serumon 01-25 Immunofixation, Serum Comment: Normal . [facility] Comment on above: Result Comment: Pres ence of monoclonal protein is unclear at this time. Suggest repeat in 3 to 6 months if clinically indicated. Performed By: #### I FE,URINE #### [facility] , Immunoglobulin A, Serum 146 mg/dL Normal 61-437 [facility] Comment on above: Performed By: #### I FE,URINE #### [facility] , Immunoglobulin G 1171 mg/dL Normal 603-1613 [facility] Comment on above: Performed By: #### I FE,URINE #### [facility] , Immunoglobulin M, Serum 190 mg/dL High 15-143 [facility] Comment on above: Result Comment: Perf ormed at: [facility] [id number] [place], [place] [id number] [employer] Operator: Contreras Pollard PhD, Phone: [phone] Performed By: #### I FE,URINE #### [facility] , Immunoglobulin light chains. kappa.free [Mass/volume] in SerumOrdered By: Magy Cummings on 01-26-2024 Immunoglobulin light chains.kappa.free (S) [Mass/Vol] 65.2 mg/L 3.3-19.4 [facility] Immunoglobulin light chains. kappa.free/Immunoglobulin light chains.lambda.free [MassOrdered By: Magy Cummings on 01-26-2024 Immunoglobulin light chains.kappa.free/Immu noglobulin light chains.lambda.free (S) [Mass ratio] 1.76 0.26-1.65 [facility] Comment on above: Performed at: [facility] [address] [id number] Director: Contreras Pollard PhD, Phone: [phone] Immunoglobulin light chains. lambda.free [Mass/volume] in Serum or PlasmaOrdered By: Magy Cummings on 01-26-2024 Immunoglobulin light chains.lambda.free [Mass/Vol] 37.0 mg/L 5.7-26.3 [facility] No Panel InformationOrdered By: Magy Cummings on 01-26-2024 Estimated GFR (CKD-EPI) 39.763 mL/Min [facility] Creatinine Clearance (Chem N/A [facility] Protein Electrophoresis Interpret See comment . [facility] Comment on above: The SPE pattern appe ars unremarkable. Evidence ofmonoclonal protein is not apparent.Performed at: [facility] [id number] [place], [place] [id number] Director: Contreras Pollard PhD, Phone: [phone] Protein Electrophoresis M-Sabino Not observed g/dL Not Observed [facility] Protein Electrophoresis Note See comment . [facility] Comment on above: Protein electrophore sis scan will follow via computer,mail, or jockey's agent delivery. Serum Immunofixation Comment: . [facility] Comment on above: Presence of monoclon al protein is unclear at this time. Suggestrepeat in 3 to 6 months if clinically indicated. Phosphate [Mass/volume] in S zoey or PlasmaOrdered By: Magy Cummings on 01-26-2024 Phosphate [Mass/Vol] 2.9 mg/dL Normal 2.5-4.5 [facility] Comment on above: Performed By: #### K APPA, SPE W INTERPRET, GARCIA SERUM #### [facility] , #### RENAL #### [facility] [address] Potassium [Moles/volume] in Serum or PlasmaOrdered By: Magy Cummings on 01-26-2024 Potassium [Moles/Vol] 3.1 mmol/L Low 3.5-5.1 [facility] Comment on above: Performed By: #### K APPA, SPE W INTERPRET, GARCIA SERUM #### [facility] , #### RENAL #### [facility] [address] [place] [address] [place] Prot Electrophoresis w/Inter yolanda 01-26-2024 Wocru-6-Xkhkzeqa 0.3 g/dL Normal 0.0-0.4 [facility] Comment on above: Performed By: #### I FE,URINE #### [facility] , Pmvud-8-Wcxhxdzt 0.7 g/dL Normal 0.4-1.0 [facility] Comment on above: Performed By: #### I FE,URINE #### [facility] , Beta Globulin 0.8 g/dL Normal 0.7-1.3 [facility] Comment on above: Performed By: #### I FE,URINE #### [facility] , Gamma Globulin 1.1 g/dL Normal 0.4-1.8 [facility] Comment on above: Performed By: #### I FE,URINE #### [facility] , M-Sabino Not Observed Normal Not Observed [facility] Comment on above: Performed By: #### I FE,URINE #### [facility] , SPE-Interpretation Normal . [facility] Comment on above: Result Comment: The SPE pattern appears unremarkable. Evidence of monoclonal protein is not apparent. Performed at: [address] [id number] [employer] Operator: Contreras Pollard PhD, Phone: [phone] Performed By: #### I FE,URINE #### [facility] , SPE-Note Normal . [facility] Comment on above: Result Comment: Prot ein electrophoresis scan will follow via computer, mail, or jockey's agent delivery. Performed By: #### I FE,URINE #### [facility] , Protein [Mass/volume] in Ser um or PlasmaOrdered By: Magy Cummings on 01-26-2024 Protein [Mass/Vol] 6.4 g/dL Normal 6.0-8.5 [facility] Comment on above: Performed By: #### I FE,URINE #### [facility] , Renal Function Panelon 01-25 Albumin [Mass/Vol] 3.6 g/dL Normal 3.5-5.7 [facility] Comment on above: Result Comment: PERF ORMED BY: [place] [address] PATHOLOGIST MOTOR AND GENERATOR BRUSH CUTTER SALINA BLOCK M.D. Performed By: #### K APPA, SPE W INTERPRET, GARCIA SERUM #### [facility] , #### RENAL #### [place] [address] [place] GFR/1.73 sq M.predicted MDRD (S/P/Bld) [Vol rate/Area] 39.763 mL/min/{1.73_m2} Normal [facility] Comment on above: Performed By: #### K APPA, SPE W INTERPRET, GARCIA SERUM #### [facility] , #### RENAL #### [facility] [address] Serum globulin measurement ( mass/volume)Ordered By: Magy Emiliano on 01-26-2024 Globulin (S) [Mass/Vol] 2.9 g/dL Normal 2.2-3.9 [facility] Comment on above: Performed By: #### I FE,URINE #### [facility] , Serum or plasma albumin/glob ulin mass ratioOrdered By: Magy Emiliano on 01-26-2024 Albumin/Globulin [Mass ratio] 1.2 {ratio} Normal 0.7-1.7 [facility] Comment on above: Performed By: #### I FE,URINE #### [facility] , Serum or plasma alpha 1 glob ulin measurement by electrophoresis (mass/volume)Ordered By: Magy Emiliano on 01-26-2024 Alpha 1 globulin Elph [Mass/Vol] 0.3 g/dL 0.0-0.4 [facility] Serum or plasma alpha 2 glob ulin measurement by electrophoresis (mass/volume)Ordered By: Magy Emiliano on 01-26-2024 Alpha 2 globulin Elph [Mass/Vol] 0.7 g/dL 0.4-1.0 [facility] Serum or plasma anion gap de terminationOrdered By: Magy Emiliano on 01-26-2024 Anion gap [Moles/Vol] 9.3 mmol/L Normal 6.0-15.0 [facility] Comment on above: Performed By: #### K APPA, SPE W INTERPRET, GARCIA SERUM #### [facility] , #### RENAL #### [facility] [address] Serum or plasma beta globuli n measurement by electrophoresis (mass/volume)Ordered By: Magy Cummings on 01-26-2024 Beta globulin Elph [Mass/Vol] 0.8 g/dL 0.7-1.3 [facility] Serum or plasma gamma globul in measurement by electrophoresis (mass/volume)Ordered By: Magy Cummings on 01-26-2024 Gamma globulin Elph [Mass/Vol] 1.1 g/dL 0.4-1.8 [facility] Sodium [Moles/volume] in Ser um or PlasmaOrdered By: Magy Cummings on 01-26-2024 Sodium [Moles/Vol] 138 mmol/L Normal 136-145 [facility] Comment on above: Performed By: #### K APPSergo, SPE W INTERPRET, GARCIA SERUM #### [facility] , #### RENAL #### [facility] [address] [place] [address] Urea nitrogen [Mass/volume] in Serum or PlasmaOrdered By: Magy Cummings on 01-26-2024 Urea nitrogen [Mass/Vol] 15 mg/dL Normal 7-25 [facility] Comment on above: Performed By: #### K APPA, SPE W INTERPRET, GARCIA SERUM #### [facility] , #### RENAL #### [facility] [address] [place] [address] Laboratory - Chemistry and C hemistry - challengeon 01-17-2024 Bilirubin Ql (U) Negative [facility] Ketones Ql (U) Negative [facility] pH (U) 7.0 [pH] [facility] Specific gravity (U) [Rel density] 1.016 [facility] Laboratory - Specimen inform ationon 01-17-2024 Color (U) yellow [facility] Laboratory - Urinalysison Leukocyte esterase Test strip Ql (U) Negative [facility] Nitrite Ql (U) Negative [facility] Protein Ql (U) 3+ [facility] No Panel Informationon 01-16 Urine Glucose (UA) trace [facility] Office Visit (Cardiology)on 06-01-2022 Follow-up visit Diagnoses/Problems Assessed Peripheral vascular disease (443.9) (I73.9) Hyperlipemia (272.4) (E78.5) Essential hypertension, benign (401.1) (I10) Overweight with body mass index (BMI) of 29 to 29.9 in adult (278.02,V85.25) (E66.3,Z68.29) Orders Essential hypertension, benign IO EKG Electrocardiogram- 12 Lead; Status:Complete; Done: [id number] Hyperlipemia Renew: Atorvastatin Calcium 10 MG Oral Tablet; take 1 tablet by mouth once daily Overweight with body mass index (BMI) of 29 to 29.9 in adult Healthy Weight Tips; Status:Complete; Done: [id number] Some eating tips that can help you lose weight.; Status:Complete; Done: [id number] Patient Instructions Please bring all medicines, vitamins, and herbal supplements with you when you come to the office. Prescriptions will not be filled unless you are compliant with your follow up appointments or have a follow up appointment scheduled as per instruction of your physician. Refills should be requested at the time of your visit. [place] [address] [place], [address], [place] [facility] from [facility] requested. Follow up in 4 months Chief Complaint CHAR ALATORRE is being seen for a consultation for [place]- Vasculopath. History of Present Illness Patient is [...] place. He believes he might be in [place] or at [facility] also in [facility]. Because of this we will [...] Signs Recorded: 01Jun2022 02:39PM Heart Rate83, Apical Kmtbdbik818, RUE, Sitting Nyhxvmoef03, RUE, Sitting Height6 ft Spczto037 lb BMI Ywnmfugwon51.97 kg/m2 BSA Calculated2.22 Tobacco Useb) No PHQ-2 [...] Eyes: no (more content not included)... Normal [facility] Tobacco Screening.on 022 Adult depression screening assessment No -[facility]-Sandu chiqui 250 DO Work Phone: Fall risk assessment a) No falls within the last year [facility]u chiqui 250 DO Work Phone: Tobacco use status [facility] b) No -[facility]u chiqui 250 DO Work Phone: XR Spine Lumbar [...] by Lakhwinder Chappell on 03/29/2022 1159 Normal [facility] Offset Plate Preparation Supervisor PARATHYROID HORMONE- RELATED PEPTIDEon 10-05-2021 PTHrP (PTH-Related Peptide) <2.0 Normal [facility] Comment on above: Result Comment: This test was developed and its performance characteristics determined by [facility] [employer]. It has not been cleared or approved [...] contact the laboratory. Performed By: #### [facility] #### [facility] [address] [place] [address] Dr. Chhaya De La Vega RESPIRATORY PANEL PLUSon Adenovirus Not detected Normal NOT DETECTED [facility] Comment on above: Performed By: #### R SPLUS #### [facility] [address] [place] [address] Dr. Chhaya Das Parapertusis Not detected Normal NOT DETECTED [facility] Comment on above: Performed By: #### R SPLUS #### [facility] [address] [place] [address] Dr. Chhaya Izaguirre. Pertussis Not detected Normal NOT DETECTED [facility] Comment on above: Performed By: #### R SPLUS #### [facility] [address] [place] [address] Dr. Chhaya De La Vega Chlamydia Pneumoniae Not detected Normal NOT DETECTED [facility] Comment on above: Performed By: #### R SPLUS #### [facility] [address] [place] [address] Dr. Chhaya De La Vega Coronavirus 229E Not detected Normal NOT DETECTED [facility] Comment on above: Performed By: #### R SPLUS #### [facility] [address] [place] [address] Dr. Chhaya De La Vega Coronavirus HKU1 Not detected Normal NOT DETECTED [facility] Comment on above: Performed By: #### R SPLUS #### [facility] [address] [place] [address] Dr. Chhaya De La Vega Coronavirus NL63 Not detected Normal NOT DETECTED [facility] Comment on above: Performed By: #### R SPLUS #### [facility] [address] [place] [address] Dr. Chhaya De La Vega Coronavirus OC43 Not detected Normal NOT DETECTED [facility] Comment on above: Performed By: #### R SPLUS #### [facility] [address] [place] [address] Dr. Chhaya De La Vega Influenza A H1 2009 Not detected Normal NOT DETECTED [facility] Comment on above: Performed By: #### R SPLUS #### [facility] [address] [place] [address] Dr. Chhaya De La Vega Influenza A H3 Not detected Normal NOT DETECTED [facility] [facility] Comment on above: Performed By: #### R SPLUS #### [facility] [address] [place] [address] Dr. Chhaya De La Vega Influenza B Not detected Normal NOT DETECTED [facility] Comment on above: Performed By: #### R SPLUS #### [facility] [address] [place] [address] Dr. Chhaya De La Vega Metapneumovirus Not detected Normal NOT DETECTED [facility] Comment on above: Performed By: #### R SPLUS #### [facility] [address] [place] [address] Dr. Chhaya De La Vega Mycoplas. Pneumoniae Not detected Normal NOT DETECTED [facility] Comment on above: Performed By: #### R SPLUS #### [facility] [address] [place] [address] Dr. Chhaya De La Vega Parainfluenza 1 Not detected Normal NOT DETECTED [facility] Comment on above: Performed By: #### R SPLUS #### [facility] [address] [place] [address] Dr. Chhaya De La Vega Parainfluenza 2 Not detected Normal NOT DETECTED [facility] Comment on above: Performed By: #### R SPLUS #### [facility] [address] [place] [address] Dr. Chhaya De La Vega Parainfluenza 3 Not detected Normal NOT DETECTED [facility] Comment on above: Performed By: #### R SPLUS #### [facility] [address] [place] [address] Dr. Chhaya De La Vega Parainfluenza 4 Not detected Normal NOT DETECTED [facility] Comment on above: Performed By: #### R SPLUS #### [facility] [address] [place] [address] Dr. Chhaya De La Vega Rhino/Enterovirus Detected Abnormal NOT DETECTED [facility] Comment on above: Performed By: #### R SPLUS #### [facility] [address] [place] [address] Dr. Chhaya De La Vega RP2 Header 1 RESPIRATORY PANEL: VIRUSES Normal [facility] Comment on above: Performed By: #### R SPLUS #### [facility] [address] [place] [address] Dr. Chhaya De La Vega RP2 Header 2 RESPIRATORY PANEL: BACTERIA Normal [facility] Comment on above: Performed By: #### R SPLUS #### [facility] [address] [place] [address] Dr. Chhaya De La Vega RSV Not detected Normal NOT DETECTED [facility] Comment on above: Performed By: #### R SPLUS #### [facility] [address] [place] [address] Dr. Chhaya De La Vega SARS-CoV-2 (COVID-19) RNA MICHELLE+probe Ql (Unsp spec) Not detected Normal NOT DETECTED [facility] Comment on above: Performed By: #### R SPLUS #### [facility] [address] [place] [address] Dr. Chhaya De La Vega CALCIUM 24 HR URINEon 2020 CALC, 24 HR UR 318.0 mg/24 hr Critically high 100.0-30 0. 0 [facility] Comment on above: Performed By: #### C [id number] #### [facility] [address] [place] [address] Dr. Chhaya De La Vega UR CALCIUM 26.5 mg/dL Critically high 0.0-21.0 [facility] Comment on above: Performed By: #### C [id number] #### [facility] [address] [place] [address] Dr. Chhaya De La Vega UR TOT VOL 1200 ml/24 HR Normal [facility] Comment on above: Performed By: #### C [id number] #### [facility] [address] [place] [address] Dr. Chhaya De La Vega Performed By: #### C [id number] #### [facility] [address] [place] [address] Dr. Chhaya De La Vega CREA 24 HR URINEon CREA, 24 HR UR 1421.52 mg/24 hr Normal 1,000.00- 2 ,000.00 [facility] Comment on above: Performed By: #### C [id number] #### [facility] [address] [place] [address] Dr. Chhaya De La Vega URINE CREAT 118.46 mg/dL Normal 20.00-300. 00 [facility] Comment on above: Performed By: #### C [id number] #### [facility] [address] [place] [address] Dr. Chhaya De La Vega PARATHYROID HORMONE PLUS Dash n 09-29-2021 Calcium [Mass/Vol] 9.8 mg/dL Normal 8.6-10.2 [facility] Comment on above: Performed By: #### P THCA #### [facility] [address] [place] [address] Dr. Chhaya De La Vega Intact PTH Comment Normal [facility] Comment on above: Result Comment: Inte rpretation Intact PTH Calcium (pg/mL) (mg/dL) Normal 15 - 65 8.6 - 10.2 Primary Hyperparathyroidism >65 >10.2 Secondary Hyperparathyroidism >65 <10.2 Non-Parathyroid Hypercalcemia <65 >10.2 Hypoparathyroidism <15 < 8.6 Non-Parathyroid Hypocalcemia 15 - 65 < 8.6 . Performed By: #### P THCA #### [facility] [address] [place] [address] Dr. Chhaya De La Vega PTH, Intact 66 pg/mL Critically high 15-65 [facility] Comment on above: Performed By: #### P THCA #### [facility] [address] [place] [address] Dr. Chhaya De La Vega PROTEIN ELECTROPHERESISon Albumin [Mass/Vol] 3.5 g/dL Normal 2.9-4.4 [facility] Comment on above: Performed By: #### P RTELEC #### [facility] [address] [place] [address] Dr. Chhaya De La Vega Albumin/Globulin [Mass ratio] 0.9 {ratio} Normal 0.7-1.7 [facility] Comment on above: Performed By: #### P RTELEC #### [facility] [address] [place] [address] Dr. Chhaya De La Vega Aygxf-2-Rygrflar 0.3 g/dL Normal 0.0-0.4 [facility] Comment on above: Performed By: #### P RTELEC #### [facility] [address] [address] [address] Chhaya De La Vega Aujsg-3-Moufrlhb 0.9 g/dL Normal 0.4-1.0 [facility] Comment on above: Performed By: #### P RTELEC #### [facility] [address] [address] [address] Chhaya De La Vega Beta Globulin 0.9 g/dL Normal 0.7-1.3 [facility] Comment on above: Performed By: #### P RTELEC #### [facility] [address] [place] [address] Dr. Chhaya De La Vega Gamma Globulin 1.7 g/dL Normal 0.4-1.8 [facility] Comment on above: Performed By: #### P RTELEC #### [facility] [address] [place] [address] Dr. Chhaya De La Vega Globulin (S) [Mass/Vol] 3.9 g/dL Normal 2.2-3.9 [facility] Comment on above: Performed By: #### P RTELEC #### [facility] [address] [place] [address] Dr. Chhaya De La Vega M-Sabino Comment: Normal Not Observed [facility] Comment on above: Result Comment: SPE shows asymmetrical gamma. Performed By: #### P RTELEC #### [facility] [address] [address] [address] Chhaya De La Vega PDF . Normal [facility] Comment on above: Performed By: #### P RTELEC #### [facility] [address] [address] [address] Chhaya De La Vega Please note: Comment Normal [facility] Comment on above: Result Comment: Prot ein electrophoresis scan will follow via computer, mail, or jockey's agent delivery. Performed By: #### P RTELEC #### [facility] [address] [address] [address] Chhaya De La Vega Protein [Mass/Vol] 7.4 g/dL Normal 6.0-8.5 [facility] Comment on above: Performed By: #### P RTELEC #### [facility] [address] [place] [address] Dr. Chhaya De La Vega RENAL FUNCTION PANELon 09-27 Albumin [Mass/Vol] 3.5 g/dL Normal 3.5-5.0 [facility] Comment on above: Performed By: #### R ENAL #### [facility] [address] [place] [address] Dr. Chhaya De La Vega Calcium [Mass/Vol] 9.6 mg/dL Normal 8.4-10.2 [facility] Comment on above: Performed By: #### R ENAL #### [facility] [address] [place] [address] Dr. Chhaya De La Vega Chloride [Moles/Vol] 99 mmol/L Normal 98-107 [facility] Comment on above: Performed By: #### R ENAL #### [facility] [address] [place] [address] Dr. Chhaya De La Vega CO2 [Moles/Vol] 28.6 mmol/L Normal 22.0-30.0 [facility] Comment on above: Performed By: #### R ENAL #### [facility] [address] [place] [address] Dr. Chhaya De La Vega Creatinine [Mass/Vol] 1.51 mg/dL Critically high 0.66-1.25 [facility] Comment on above: Performed By: #### R ENAL #### [facility] [address] [place] [address] Dr. Chhaya De La Vega EGFR-AF AZERBAIJANI 56 mL/min/1.73m2 Critically low >=60 [facility] Comment on above: Performed By: #### R ENAL #### [facility] [address] [place] [address] Dr. Chhaya De La Vega EGFR-NON AF AZERBAIJANI 46 mL/min/1.73m2 Critically low >=60 [facility] Comment on above: Performed By: #### R ENAL #### [facility] [address] [place] [address] Dr. Chhaya De La Vega Glucose [Mass/Vol] 101 mg/dL Normal 74-106 [facility] Comment on above: Performed By: #### R ENAL #### [facility] [address] [place] [address] Dr. Chhaya De La Vega Phosphate [Mass/Vol] 2.9 mg/dL Normal 2.5-4.5 [facility] Comment on above: Performed By: #### R ENAL #### [facility] [address] [place] [address] Dr. Chhaya De La Vega Potassium [Moles/Vol] 4.1 mmol/L Normal 3.4-5.0 [facility] Comment on above: Performed By: #### R ENAL #### [facility] [address] [place] [address] Dr. Chhaya De La Vega Sodium [Moles/Vol] 136 mmol/L Critically low 137-145 [facility] Comment on above: Performed By: #### R ENAL #### [facility] [address] [place] [address] Dr. Chhaya De La Vega Urea nitrogen [Mass/Vol] 13.0 mg/dL Normal 9.0-20.0 [facility] Comment on above: Performed By: #### R ENAL #### [facility] [address] [place] [address] Dr. Chhaya De La Vega VITAMIN D 25 OHon 09-27-2021 VIT D 25-OH 24.5 ng/mL Normal [facility] Comment on above: Performed By: #### C [id number] #### [facility] [address] [place] [address] Dr. Chhaya De La Vega VIT D RANGES SEE BELOW Normal [facility] Comment on above: Result Comment: <20 ng/mL Vit D deficient 20 - <30 ng/mL Vit D insufficient 30 - 100 ng/mL Vit D sufficient >100 ng/mL Potential Toxicity Performed By: #### C [id number] #### [facility] [address] [place] [address] Dr. Chhaya De La Vega XR DEXA [...] ARTI MALCOLM Date: 2021-09-27 11:20 Normal [facility] CBC AUTO DIFFon 02-02-2021 BASO # 0.1 103/ul Normal 0.0-0.1 [facility] Comment on above: Performed By: #### C BC #### [facility] [address] [place] [address] Niharika Xochitl Basophils/100 WBC (Bld) 0.5 % Normal 0.2-2.0 [facility] Comment on above: Performed By: #### C BC #### [facility] [address] [place], [place] [id number] Niharika Xochitl EO # 0.0 103/ul Normal 0.0-0.7 [facility] Comment on above: Performed By: #### C BC #### [facility] [address] [place], [place] [address] Niharika Xochitl Eosinophils/100 WBC (Bld) 0.2 % Critically low 0.9-7.0 [facility] Comment on above: Performed By: #### C BC #### [facility] [address] [place], [place] [id number] Niharika Xochitl Erythrocyte distribution width (RBC) [Ratio] 13.9 % Normal 11.0-15.0 [facility] Comment on above: Performed By: #### C BC #### [facility] [address] [place], [place] [address] Niharika Xochitl Hematocrit (Bld) [Volume fraction] 49.0 % Normal 42.0-54.0 [facility] Comment on above: Performed By: #### C BC #### [facility] [address] [id number] Niharika Xochitl Hemoglobin (Bld) [Mass/Vol] 16.1 g/dL Normal 14.0-18.0 [facility] Comment on above: Performed By: #### C BC #### [facility] [address] [place], [place] [address] Niharika Xochitl IG # 0.09 10e3/ul Critically high 0.00-0.03 [facility] Comment on above: Performed By: #### C BC #### [facility] [address] [place] [address] Niharika Xochitl IG % 0.5 % Normal 0.0-0.5 [facility] Comment on above: Performed By: #### C BC #### [facility] [address] [place] [address] Niharika Xochitl LYMPH # 1.5 103/ul Normal 1.2-3.8 [facility] Comment on above: Performed By: #### C BC #### [facility] [address] [place] [address] Niharika Leung Lymphocytes/100 WBC (Bld) 8.6 % Critically low 20.5-60.0 [facility] Comment on above: Performed By: #### C BC #### [facility] [address] [place] [address] Niharika Leung MANUAL DIFF REQ NO Normal [facility] Comment on above: Performed By: #### C BC #### [facility] [address] [place] [address] Niharikaaurelio Willetten MCH (RBC) [Entitic mass] 27.6 pg Normal 25.9-34.0 [facility] Comment on above: Performed By: #### C BC #### [facility] [address] [place], [place] [id number] Niharika Xochitl MCHC (RBC) [Mass/Vol] 32.9 g/dL Normal 29.9-35.2 [facility] Comment on above: Performed By: #### C BC #### [facility] [address] [id number] Niharika Leung MCV (RBC) [Entitic vol] 84.0 fL Normal 80.0-94.0 [facility] Comment on above: Performed By: #### C BC #### [facility] [address] [id number] Niharika Leung MONO # 1.0 103/ul Critically high 0.3-0.8 [facility] Comment on above: Performed By: #### C BC #### [facility] [address] [id number] Niharika Leung Monocytes/100 WBC (Bld) 6.1 % Normal 1.7-12.0 [facility] Comment on above: Performed By: #### C BC #### [facility] [address] [place], [place] [address] Niharika Leung NEUT # 14.1 103/ul Critically high 1.4-6.5 [facility] Comment on above: Performed By: #### C BC #### [facility] [address] [place], [place] [address] Niharika Leung Neutrophils/100 WBC (Bld) 84.1 % Critically high 43.0-75.0 [facility] Comment on above: Performed By: #### C BC #### [facility] [address] [place], [place] [id number] Niharika Leung Platelet mean volume (Bld) [Entitic vol] 9.0 fL Critically low 9.5-13.5 [facility] Comment on above: Performed By: #### C BC #### [facility] [address] [place], [place] [address] Niharika Xochitl PLT 330 103/ul Normal 150-450 [facility] Comment on above: Performed By: #### C BC #### [facility] [address] [place], [place] [address] Niharika Xochitl RBC 5.83 106/ul Normal 4.70-6.10 [facility] Comment on above: Performed By: #### C BC #### [facility] [address] [place], [place] [address] Niharika Xochitl WBC 16.8 103/ul Critically high 4.0-11.0 [facility] Comment on above: Performed By: #### C #### [facility] [address] [id number] [address] ABD/PELVIS WO CONon 02-02 [...] HERBIE CASTELLANOS Date: 2021-02-02 02:05 Normal [facility] PROF 14(COMP METB)on 021 Albumin [Mass/Vol] 4.7 g/dL Normal 3.5-5.0 [facility] Comment on above: Performed By: #### C [id number] #### [facility] [address] [address] [address] Chhaya De La Vega Albumin/Globulin [Mass ratio] 0.9 {ratio} Normal [facility] Comment on above: Performed By: #### C [id number] #### [facility] [address] [address] [address] Chhaya De La Vega ALP [Catalytic activity/Vol] 163 U/L Critically high 38-126 [facility] Comment on above: Performed By: #### C [id number] #### [facility] [address] [address] [address] Chhaya De La Vega ALT [Catalytic activity/Vol] 22 U/L Normal 21-72 [facility] Comment on above: Performed By: #### C [id number] #### [facility] [address] [address] [address] Chhaya De La Vega Anion gap [Moles/Vol] 15.2 mmol/L Normal [facility] Comment on above: Performed By: #### C [id number] #### [facility] [address] [address] [address] Chhaya De La Vega AST [Catalytic activity/Vol] 18 U/L Normal 17-59 [facility] Comment on above: Performed By: #### C [id number] #### [facility] [address] [address] [address] Chhaya De La Vega Bilirubin [Mass/Vol] 0.7 mg/dL Normal 0.2-1.3 [facility] Comment on above: Performed By: #### C [id number] #### [facility] [address] [address] [address] Chhaya De La Vega Calcium [Mass/Vol] 11.2 mg/dL Critically high 8.4-10.2 [facility] Comment on above: Performed By: #### C [id number] #### [facility] [address] [address] [address] Chhaya De La Vega Chloride [Moles/Vol] 98 mmol/L Normal 98-107 [facility] Comment on above: Performed By: #### C [id number] #### [facility] [address] [address] [address] Chhaya De La Vega CO2 [Moles/Vol] 28.3 mmol/L Normal 22.0-30.0 [facility] Comment on above: Performed By: #### C [id number] #### [facility] [address] [address] [address] Chhaya De La Vega Creatinine [Mass/Vol] 2.24 mg/dL Critically high 0.66-1.25 [facility] Comment on above: Performed By: #### C [id number] #### [facility] [address] [address] [address] Chhaya De La Vega EGFR-AF AZERBAIJANI 35 mL/min/1.73m2 Critically low >=60 [facility] Comment on above: Performed By: #### C [id number] #### [facility] [address] [address] [address] Chhaya De La Vega EGFR-NON AF AZERBAIJANI 29 mL/min/1.73m2 Critically low >=60 [facility] Comment on above: Performed By: #### C [id number] #### [facility] [address] [address] [address] Chhaya De La Vega Globulin (S) [Mass/Vol] 5.2 g/dL Normal [facility] Comment on above: Performed By: #### C [id number] #### [facility] [address] [address] [address] Chhaya De La Vega Glucose [Mass/Vol] 161 mg/dL Critically high 74-106 [facility] Comment on above: Performed By: #### C [id number] #### [facility] [address] [address] [address] Chhaya De La Vega Potassium [Moles/Vol] 4.5 mmol/L Normal 3.4-5.0 [facility] Comment on above: Performed By: #### C [id number] #### [facility] [address] [place] [address] Dr. Chhaya De La Vega Protein [Mass/Vol] 9.9 g/dL Critically high 6.1-8.2 [facility] Comment on above: Performed By: #### C [id number] #### [facility] [address] [place] [address] Dr. Chhaya De La Vega Sodium [Moles/Vol] 137 mmol/L Normal 137-145 [facility] Comment on above: Performed By: #### C [id number] #### [facility] [address] [place] [address] Dr. Chhaya De La Vega Urea nitrogen [Mass/Vol] 22.0 mg/dL Critically high 9.0-20.0 [facility] Comment on above: Performed By: #### C [id number] #### [facility] [address] [place] [address] Dr. Chhaya De La Vega Urea nitrogen/Creatinine [Mass ratio] 9.8 mg/mg Normal [facility] Comment on above: Performed By: #### C [id number] #### [facility] [address] [place] [address] Dr. Chhaya De La Vega PROTIMEon 02-02-2021 INR Coag (PPP) [Relative time] 1.03 {INR} Normal [facility] Comment on above: Performed By: #### C [id number] #### [facility] [address] [place] [address] Dr. Chhaya De La Vega INR GUIDELINES SEE BELOW Normal [facility] Comment on above: Result Comment: GIOVANNY RED INR: 2.0 - 3.0 CONDITIONS NOT LISTED BELOW 2.5 - 3.5 FOR PROSTHETIC HEART VALVE REPLACEMENT 2.5 - 3.5 RECURRENT THROMBOSIS Performed By: #### C [id number] #### [facility] [address] [place] [address] Dr. Chhaya De La Vega PT Coag (PPP) [Time] 11.2 s Normal 9.0-11.6 [facility] Comment on above: Performed By: #### C [id number] #### [facility] [address] [place] [address] Dr. Chhaya De La Vega PTTon 02-02-2021 aPTT Coag (Bld) [Time] 28.7 s Normal 22.3-36.2 [facility] Comment on above: Performed By: #### C [id number] #### [facility] [address] [place] [address] Dr. Chhaya De La Vega RESPIRATORY PANEL PLUSon Adenovirus Not detected Normal NOT DETECTED [facility] Comment on above: Performed By: #### R SPLUS #### [facility] [address] [place] [address] Niharika Xochitl B. Parapertusis Not detected Normal NOT DETECTED [facility] Comment on above: Performed By: #### R SPLUS #### [facility] [address] [place] [address] Niharika Xochitl B. Pertussis Not detected Normal NOT DETECTED [facility] Comment on above: Performed By: #### R SPLUS #### [facility] [address] [place] [address] Niharika Xochitl Chlamydia Pneumoniae Not detected Normal NOT DETECTED [facility] Comment on above: Performed By: #### R SPLUS #### [facility] [address] [place] [address] Niharika Xochitl Coronavirus 229E Not detected Normal NOT DETECTED [facility] Comment on above: Performed By: #### R SPLUS #### [facility] [address] [place] [address] Niharika Xochitl Coronavirus HKU1 Not detected Normal NOT DETECTED [facility] Comment on above: Performed By: #### R SPLUS #### [facility] [address] [place] [address] Niharika Xochitl Coronavirus NL63 Not detected Normal NOT DETECTED [facility] Comment on above: Performed By: #### R SPLUS #### [facility] [address] [place] [address] Niharika Xochitl Coronavirus OC43 Not detected Normal NOT DETECTED [facility] Comment on above: Performed By: #### R SPLUS #### [facility] [address] [place] [address] Niharika Xochitl Influenza A H1 2009 Not detected Normal NOT DETECTED [facility] Comment on above: Performed By: #### R SPLUS #### [facility] [address] [place] [address] Niharika Xochitl Influenza B Not detected Normal NOT DETECTED [facility] Comment on above: Performed By: #### R SPLUS #### [facility] [address] [place] [address] Niharika Xochitl Metapneumovirus Not detected Normal NOT DETECTED [facility] Comment on above: Performed By: #### R SPLUS #### [facility] [address] [place] [address] Niharika Xochitl Mycoplas. Pneumoniae Not detected Normal NOT DETECTED [facility] Comment on above: Performed By: #### R SPLUS #### [facility] [address] [place] [address] Niharika Xochitl Parainfluenza 1 Not detected Normal NOT DETECTED [facility] Comment on above: Performed By: #### R SPLUS #### [facility] [address] [place] [address] Niharika Xochitl Parainfluenza 2 Not detected Normal NOT DETECTED [facility] Comment on above: Performed By: #### R SPLUS #### [facility] [address] [place] [address] Niharika Xochitl Parainfluenza 3 Not detected Normal NOT DETECTED [facility] Comment on above: Performed By: #### R SPLUS #### [facility] [address] [place] [address] Niharika Xochitl Parainfluenza 4 Not detected Normal NOT DETECTED [facility] Comment on above: Performed By: #### R SPLUS #### [facility] [address] [place] [address] Niharika Xochitl Rhino/Enterovirus Not detected Normal NOT DETECTED [facility] Comment on above: Performed By: #### R SPLUS #### [facility] [address] [place] [address] Niharika Xochitl RP2 Header 1 RESPIRATORY PANEL: VIRUSES Normal [facility] Comment on above: Performed By: #### R SPLUS #### [facility] [address] [place] [address] Niharika Xochitl RP2 Header 2 RESPIRATORY PANEL: BACTERIA Normal [facility] Comment on above: Performed By: #### R SPLUS #### [facility] [address] [place] [address] Niharika Leung RP2 Header 4 EUA SEE BELOW Normal [facility] Comment on above: Result Comment: This test is not yet approved or cleared by the [place] FDA. When there are no FDA-approved or cleared tests available, and other criteria are met, FDA can make tests available under an emergency access mechanism called an Emergency Use Authorization (EUA). The EUA for this test is supported by the Dict[employer] Transcriber of Health and Human Service?s (HHS?s) declaration [...] used). Performed By: #### R SPLUS #### [facility] [address] [place] [address] Niharika Leung RSV Not detected Normal NOT DETECTED [facility] Comment on above: Performed By: #### R SPLUS #### [facility] [address] [place] [address] Niharika Xochitl SARS-CoV-2 (COVID-19) RNA MICHELLE+probe Ql (Unsp spec) Not detected Normal NOT DETECTED [facility] Comment on above: Performed By: #### R SPLUS #### [facility] [address] [place] [address] Niharika Leung XR ABD FLAT UP_PA Jeremy 02-02 XR ABD FLAT UP_PA CH EXAM: XR ABD FLAT U P_PA CH 02/01/2021 10:36 PM EDT OH001 CLINICAL [...] by: HERBIE CASTELLANOS Date: 2021-02-02 00:21 Normal [facility] Coding Summary.on 04-17-2020 Coding Summary. CODING DATE: 020 FINAL [facility] STATUS: Home (Routine DC) PAYOR: Medicare ADMIT DX: REASON FOR VISIT DX: H54.7 Unspecified visual loss FINAL DX: PRINCIPAL: H33.002 Unspecified retinal detachment with retinal break, left eye SECONDARY: I10 Essential (primary) hypertension E78.00 Pure hypercholesterolemia, unspecified J44.9 Chronic obstructive pulmonary disease, unspecified H91.90 Unspecified hearing loss, unspecified ear Z79.82 FPC (current) use of aspirin Z86.73 Personal history [...] Reardon Date Saved: 04/17/2020 07:01 am Normal [facility] ED Note-Physicianon 04-15-20 20 ED Note-Physician Basic Information Time Seen: Link Conrad MD 04/11/2020 20:56 Chief Complaint pt woke up this am with loss of vision in left eye, pt has no history of vision loss, pt has no prior medical concern, was seen in [facility] [facility] ws sent here by dr. warren History of Present Illness Patient presents with a painless vision loss onset this morning. Patient was seen at [facility] emergency room. The ER physician, Dr. [...] detachment and made arrangements with the [facility] for the patient to be seen at 9:30 AM at their [place] office. I confirmed the patient's instructions with [...] 9:30 AM on Monday with the [facility] at their [place] office. In 2 days 04/13/2020 EDT Additional [...] examination was conducted by the ER physician. [facility] Comment on above: Result Comment: Elec [...] was seen in the Emergency Room at [facility], however there was no availability for on-call doctors. He also is a patient of Dr. Aurelio Condon, however they did not return any calls from the Emergency Room physician or the patient so the patient was transferred to [facility] for evaluation. PAST OCULAR HISTORY: Status post [...] get in touch with [facility] and they did not have somebody in the Operating Room on Monday so, therefore, this will be evaluated on Monday at 9:30 a.m. in their [place] office. Dr. Clemons will be seeing him. [...] given. Gianluca Warren D.O. gls Dictated: 04/11/2020 #[id number] Typed: 04/13/2020 #[id number] cc: MD Dick Barry M.D. Jonathan D. Zahler, D.O. [facility] Comment on above: Result Comment: Elec tronically Signed By: Gianluca Warren DO\.br\Date and Time Signed: 04/13/20 16:36 EDT Discharge Instructionson Discharge Instructions [id number]:127 Normal [facility] ED Clinical Summaryon 2019 ED Clinical Summary (Inserted Image. Diamond ble to display) [address] [address] ED Clinical Summary [facility] Age[facility] 69 Years : 1950 Sex: Male Language: Greek PCP: JUSTIN MARTINEZ MD Marital Status: Visit [...] 04/11/2020 23:00:43 04/11/2020 23:00:43 04/11/2020 23:00:43 ADDRESS: [address] [place] [phone] PHYS DOC NOTES: MEDICAL INFORMATION: Prescriptions Given: PATIENT EDUCATION INFORMATION: Instructions: Retinal Detachment, Care After Follow up: With: Address: When: You have an appointment at 9:30 AM on Monday with the [facility] at their [place] office. In 2 days 04/13/2020 DIAGNOSIS: Retinal detachment Normal [facility] ED Patient Education Noteon 04-12-2020 ED Patient [...] Keep appointments as directed. ? Only take wekq-jtr-ixolzll or prescription medicines for pain, discomfort, or [...] Document Reviewed: 08/28/2008 ExitCare? Patient Information ?2015 [employer], [facility]. This information is not intended to replace advice given to you by your health care provider. Make sure you discuss any questions you have with your health care provider. Normal [facility] ED Patient Summaryon 020 ED Patient Summary (Inserted Image. Diamond ble to display) [address] [address] Patient Discharge Instructions Person Information Name: CHAR ALATORRE Age: 69 Years Arrival Date: 04/11/2020 20:42:11 Discharge Diagnosis: Retinal detachment Primary Care Physician: JUSTIN MARTINEZ MD Provider Information Primary Provider: Link Conrad MD Advanced Supervisor Display Fabrication:None The exam and treatment you received in the Emergency Department were for an urgent problem and are not intended as complete care. It is important that you follow up with a doctor, nurse practitioner, or physician?s social worker assistant for ongoing care. If your symptoms [...] AM on Monday with the [facility] at their [place] office. In 2 days 04/13/2020 In the event that this physician does not participate in your insurance network, please consult with your insurance company to find a nearby participating provider. Patient Education Materials: Retinal Detachment, Care After A MESSAGE TO ALL PATIENTS REGARDING OPIOIDS PRESCRIPTION OPIOIDS: WHAT YOU NEED TO KNOW Prescription opioids can be used to help relieve mdwsxtjo-ze-bduvmo pain and are often prescribed following a [...] guidance from the Food and Drug Administration (www.fda.gov/Drugs/Resourc esForYou). ? Visit www.cdc.gov/drugoverdose to learn about the risks of opioids abuse and overdose. ? If you believe you may be struggling with addiction, tell your health health care administrator and ask for guidance or call SAMA?S National Helpline at 9-962-676-JSMQ. v Source: [place] Department of Health and Human Services/Center for Disease Control & Prevention [facility] Medications Given: Medication Dose Route No medications found. Medication Information: Comment: Pharmacy Information: Thank you for choosing [facility] Patient Education Materials: Retinal Detachment, Care [...] Keep appointments as directed. ? Only take rxzh-igr-wfmzonc or prescription medicines for pain, discomfort, or [...] Document Reviewed: 08/28/2008 ExitCare? Patient Information ?2014 [employer]. This information is not intended to replace advice given to you by your health care provider. Make sure you discuss any questions you have with your health care provider. ICELI MARK , have received the following patient education materials/instructions and have verbalized understanding: Patient Education Materials: Retinal Detachment, Care After Follow-up Instructions: With: Address: When: You have an appointment at 9:30 AM on Monday with the [facility] at their [place] office. In 2 days 04/13/2020 Patient Signature __ Date Clinician/Nurse Signature Date 04/11/2020 23:00:45 [facility] Progress Note-Nurseon 2019 Progress Note-Nurse pt verbalized understanding of discharge instructions et follow up appointment on Monday. [facility] Consent for Treatmenton 03-17 Consent for Treatment [id number]:127 [facility] Vital Signs Date Time Vital Sign Value Performing Clinician Facility 11-21-2024 00:01-0500 Heart rate 85 /min Justin Martinez MD Work Phone: [facility] 11-21-2024 00:01-0500 Inhaled oxygen concentration 30 % Justin Martinez MD Work Phone: [facility] 11-21-2024 00:01-0500 Respiratory rate 16 /min Justin Martinez MD Work Phone: [facility] 11-21-2024 00:01-0500 SaO2% (BldA) [Mass fraction] 95 % Justin Martinez MD Work Phone: [facility] 11-20-2024 20:00-0500 Body temperature 97.6 [degF] Justin Martinez MD Work Phone: [facility] 11-20-2024 20:00-0500 Diastolic blood pressure 73 mm[Hg] Justin Martinez MD Work Phone: [facility] 11-20-2024 20:00-0500 Systolic blood pressure 113 mm[Hg] Justin Martinez MD Work Phone: [facility] 11-20-2024 16:07-0500 Body height 182.88 cm Justin Martinez MD Work Phone: [facility] 11-20-2024 16:07-0500 Body weight 84.6 kg Justin Martinez MD Work Phone: [facility] 11-20-2024 10:02-0500 Body height 182.88 cm Justin Martinez MD Work Phone: [facility] 11-20-2024 10:02-0500 Body mass index (BMI) [Ratio] 25.6 kg/m2 Justin Martinez MD Work Phone: [facility] 11-20-2024 10:02-0500 Body weight 85.72 kg Justin Martinez MD Work Phone: [facility] 11-20-2024 10:02-0500 Diastolic blood pressure 62 mm[Hg] Justin Martinez MD Work Phone: [facility] 11-20-2024 10:02-0500 Heart rate 82 /min Justin Martinez MD Work Phone: [facility] 11-20-2024 10:02-0500 Inhaled oxygen flow rate 2 L/min Justin Martinez MD Work Phone: [facility] 11-20-2024 10:02-0500 Respiratory rate 18 /min Justin Martinez MD Work Phone: [facility] 11-20-2024 10:02-0500 SaO2% (BldA) [Mass fraction] 91 % Justin Martinez MD Work Phone: [facility] 11-20-2024 10:02-0500 Systolic blood pressure 94 mm[Hg] Justin Martinez MD Work Phone: [facility] 10-28-2024 11:11-0500 Body height 182.88 cm Justin Martinez MD Work Phone: [facility] 10-28-2024 11:11-0500 Body mass index (BMI) [Ratio] 24.3 kg/m2 Justin Martinez MD Work Phone: [facility] 10-28-2024 11:11-0500 Body weight 81.19 kg Justin Martinez MD Work Phone: [facility] 10-28-2024 11:11-0500 Diastolic blood pressure 60 mm[Hg] Justin Martinez MD Work Phone: [facility] 10-28-2024 11:11-0500 Heart rate 89 /min Justin Martinez MD Work Phone: [facility] 10-28-2024 11:11-0500 Inhaled oxygen flow rate 2 L/min Justin Martinez MD Work Phone: [facility] 10-28-2024 11:11-0500 SaO2% (BldA) [Mass fraction] 100 % Justin Martinez MD Work Phone: [facility] 10-28-2024 11:11-0500 Systolic blood pressure 111 mm[Hg] Justin Martinez MD Work Phone: [facility] 10-21-2024 11:06-0500 Body height 180.3 cm Justin Martinez MD Work Phone: [facility] 10-21-2024 11:06-0500 Body mass index (BMI) [Ratio] 24.83 kg/m2 Justin Martinez MD Work Phone: [facility] 10-21-2024 11:06-0500 Body weight 80.74 kg Justin Martinez MD Work Phone: [facility] 10-21-2024 11:06-0500 Diastolic blood pressure 62 mm[Hg] Justin Martinez MD Work Phone: [facility] 10-21-2024 11:06-0500 Heart rate 78 /min Justin Martinez MD Work Phone: [facility] 10-21-2024 11:06-0500 SaO2% (BldA) [Mass fraction] 97 % Justin Martinez MD Work Phone: [facility] 10-21-2024 11:06-0500 Systolic blood pressure 88 mm[Hg] Justin Martinez MD Work Phone: [facility] 10-20-2024 11:51-0500 Diastolic blood pressure 70 mm[Hg] Justin Martinez MD Work Phone: [facility] 10-20-2024 11:51-0500 Heart rate 88 /min Justin Martinez MD Work Phone: [facility] 10-20-2024 11:51-0500 Respiratory rate 18 /min Justin Martinez MD Work Phone: [facility] 10-20-2024 11:51-0500 SaO2% (BldA) [Mass fraction] 93 % Justin Martinez MD Work Phone: [facility] 10-20-2024 11:51-0500 Systolic blood pressure 102 mm[Hg] Justin Martinez MD Work Phone: [facility] 10-20-2024 11:43-0500 Body height 182.88 cm Justin Martinez MD Work Phone: [facility] 10-20-2024 08:39-0500 Inhaled oxygen flow rate 2 L/min Justin Martinez MD Work Phone: [facility] 10-20-2024 08:29-0500 Body temperature 97.5 [degF] Justin Martinez MD Work Phone: [facility] 10-20-2024 05:47-0500 Body weight 77.5 kg Justin Martinez MD Work Phone: [facility] 10-19-2024 16:42-0500 Diastolic blood pressure 65 mm[Hg] Justin Martinez MD Work Phone: [facility] 10-19-2024 16:42-0500 Heart rate 78 /min Justin Martinez MD Work Phone: [facility] 10-19-2024 16:42-0500 Respiratory rate 18 /min Justin Martinez MD Work Phone: [facility] 10-19-2024 16:42-0500 SaO2% (BldA) [Mass fraction] 96 % Justin Martinez MD Work Phone: [facility] 10-19-2024 16:42-0500 Systolic blood pressure 133 mm[Hg] Justin Martinez MD Work Phone: [facility] 10-19-2024 15:14-0500 Inhaled oxygen flow rate 2 L/min Justin Martinez MD Work Phone: [facility] 10-19-2024 12:09-0500 Body height 182.88 cm Justin Martinez MD Work Phone: [facility] 10-19-2024 12:09-0500 Body weight 81.5 kg Justin Martinez MD Work Phone: [facility] 10-09-2024 14:35-0500 Diastolic blood pressure 63 mm[Hg] Justin Martinez MD Work Phone: [facility] 10-09-2024 14:35-0500 Heart rate 81 /min Justin Martinez MD Work Phone: [facility] 10-09-2024 14:35-0500 Respiratory rate 24 /min Justin Martinez MD Work Phone: [facility] 10-09-2024 14:35-0500 SaO2% (BldA) [Mass fraction] 100 % Justin Martinez MD Work Phone: [facility] 10-09-2024 14:35-0500 Systolic blood pressure 127 mm[Hg] Justin Martinez MD Work Phone: [facility] 10-09-2024 13:34-0500 Inhaled oxygen flow rate 2 L/min Justin Martinez MD Work Phone: [facility] 10-09-2024 12:06-0500 Body height 182.88 cm Justin Martinez MD Work Phone: [facility] 10-09-2024 12:06-0500 Body temperature 98.3 [degF] Justin Martinez MD Work Phone: [facility] 10-09-2024 12:06-0500 Body weight 82.5 kg Justin Martinez MD Work Phone: [facility] 09-16-2024 10:30-0500 Body height 182.88 cm Justin Martinez MD Work Phone: [facility] 09-16-2024 10:30-0500 Body mass index (BMI) [Ratio] 24.7 kg/m2 Justin Martinez MD Work Phone: [facility] 09-16-2024 10:30-0500 Body temperature 96.5 [degF] Justin Martinez MD Work Phone: [facility] 09-16-2024 10:30-0500 Body weight 82.55 kg Justin Martinez MD Work Phone: [facility] 09-16-2024 10:30-0500 Diastolic blood pressure 72 mm[Hg] Justin Martinez MD Work Phone: [facility] 09-16-2024 10:30-0500 Heart rate 76 /min Justin Martinez MD Work Phone: [facility] 09-16-2024 10:30-0500 Respiratory rate 16 /min Justin Martinez MD Work Phone: [facility] 09-16-2024 10:30-0500 SaO2% (BldA) [Mass fraction] 97 % Justin Martinez MD Work Phone: [facility] 09-16-2024 10:30-0500 Systolic blood pressure 92 mm[Hg] Justin Martinez MD Work Phone: [facility] 09-03-2024 09:30-0500 Body height 182.88 cm [facility] 09-03-2024 09:30-0500 Body mass index (BMI) [Ratio] 24.7 kg/m2 [facility] 09-03-2024 09:30-0500 Body temperature 96.4 [degF] [facility] 09-03-2024 09:30-0500 Body weight 82.55 kg [facility] 09-03-2024 09:30-0500 Diastolic blood pressure 69 mm[Hg] [facility] 09-03-2024 09:30-0500 Heart rate 76 /min [facility] 09-03-2024 09:30-0500 Respiratory rate 20 /min [facility] 09-03-2024 09:30-0500 SaO2% (BldA) [Mass fraction] 96 % [facility] 09-03-2024 09:30-0500 Systolic blood pressure 112 mm[Hg] [facility] 07-16-2024 11:06-0400 Body height 180.3 cm Justin Martinez MD Work Phone: [facility] 07-16-2024 11:06-0400 Body mass index (BMI) [Ratio] 26.22 kg/m2 Justin Martinez MD Work Phone: [facility] 07-16-2024 11:06-0400 Body weight 85.28 kg Justin Martinez MD Work Phone: [facility] 07-16-2024 11:06-0400 Diastolic blood pressure 78 mm[Hg] Justin Martinez MD Work Phone: [facility] 07-16-2024 11:06-0400 Heart rate 80 /min Justin Martinez MD Work Phone: [facility] 07-16-2024 11:06-0400 SaO2% (BldA) [Mass fraction] 96 % Justin Martinez MD Work Phone: [facility] 07-16-2024 11:06-0400 Systolic blood pressure 110 mm[Hg] Justin Martinez MD Work Phone: [facility] 07-03-2024 10:24-0400 Body height 182.88 cm [facility] 07-03-2024 10:24-0400 Body mass index (BMI) [Ratio] 25.6 kg/m2 [facility] 07-03-2024 10:24-0400 Body temperature 97.4 [degF] [facility] 07-03-2024 10:24-0400 Body weight 85.72 kg [facility] 07-03-2024 10:24-0400 Diastolic blood pressure 62 mm[Hg] [facility] 07-03-2024 10:24-0400 Heart rate 69 /min [facility] 07-03-2024 10:24-0400 Respiratory rate 20 /min [facility] 07-03-2024 10:24-0400 SaO2% (BldA) [Mass fraction] 97 % [facility] 07-03-2024 10:24-0400 Systolic blood pressure 97 mm[Hg] [facility] [facility] 06-06-2024 11:26-0400 Body height 182.88 cm [facility] 06-06-2024 11:26-0400 Body mass index (BMI) [Ratio] 26.6 kg/m2 [facility] 06-06-2024 11:26-0400 Body temperature 97.7 [degF] [facility] 06-06-2024 11:26-0400 Body weight 88.9 kg [facility] 06-06-2024 11:26-0400 Diastolic blood pressure 59 mm[Hg] [facility] 06-06-2024 11:26-0400 Heart rate 83 /min [facility] 06-06-2024 11:26-0400 Respiratory rate 18 /min [facility] 06-06-2024 11:26-0400 SaO2% (BldA) [Mass fraction] 98 % [facility] 06-06-2024 11:26-0400 Systolic blood pressure 87 mm[Hg] [facility] 06-04-2024 10:25-0400 Body height 180.3 cm Justin Martinez MD Work Phone: [facility] 06-04-2024 10:25-0400 Body mass index (BMI) [Ratio] 27.34 kg/m2 Justin Martinez MD Work Phone: [facility] 06-04-2024 10:25-0400 Body weight 88.91 kg Justin Martinez MD Work Phone: [facility] 06-04-2024 10:25-0400 Diastolic blood pressure 88 mm[Hg] Justin Martinez MD Work Phone: [facility] 06-04-2024 10:25-0400 Heart rate 91 /min Justin Martinez MD Work Phone: [facility] 06-04-2024 10:25-0400 SaO2% (BldA) [Mass fraction] 94 % Justin Martinez MD Work Phone: [facility] 06-04-2024 10:25-0400 Systolic blood pressure 126 mm[Hg] Justin Martinez MD Work Phone: [facility] 02-22-2024 [id number] Body height 182.88 cm MD Justin Martinez Work Phone: [facility] 02-22-2024 11:23-0400 Body mass index (BMI) [Ratio] 28.7 kg/m2 MD Justin Martinez Work Phone: [facility] 02-22-2024 11:23-0400 Body temperature 96.2 [degF] MD Justin Martinez Work Phone: [facility] 02-22-2024 11:23-0400 Body weight 96.16 kg MD Justin Martinez Work Phone: [facility] 02-22-2024 11:23-0400 Diastolic blood pressure 70 mm[Hg] MD Justin Martinez Work Phone: [facility] 02-22-2024 11:23-0400 Heart rate 95 /min MD Justin Martinez Work Phone: [facility] 02-22-2024 11:23-0400 Respiratory rate 18 /min MD Justin Martinez Work Phone: [facility] 02-22-2024 11:23-0400 SaO2% (BldA) [Mass fraction] 98 % MD Justin Martinez Work Phone: [facility] 02-22-2024 11:23-0400 Systolic blood pressure 112 mm[Hg] MD Justin Martinez Work Phone: [facility] 01-25-2024 16:01-0400 Diastolic blood pressure 84 mm[Hg] [facility] 01-25-2024 16:01-0400 Heart rate 97 /min [facility] 01-25-2024 16:01-0400 SaO2% (BldA) [Mass fraction] 95 % [facility] 01-25-2024 16:01-0400 Systolic blood pressure 120 mm[Hg] [facility] 03-16-2023 10:20-0400 Body height 182.88 cm Magy Emiliano Other [employer] [facility] [employer] Other 03-16-2023 10:20-0400 Body mass index (BMI) [Ratio] 30.08 kg/m2 Magy Emiliano Other [employer] Other 03-16-2023 10:20-0400 Body temperature 96.1 [degF] Magy Emiliano Other [employer] Other 03-16-2023 10:20-0400 Body weight 100.61 kg Magy Emiliano Other [employer] Other 03-16-2023 10:20-0400 Diastolic blood pressure 50 mm[Hg] Magy Emiliano Other [employer] Other 03-16-2023 10:20-0400 Respiratory rate 18 /min Magy Emiliano Other [employer] Other 03-16-2023 10:20-0400 SaO2% (BldA) [Mass fraction] 92 % Magy Emiliano Other [employer] Other 03-16-2023 10:20-0400 Systolic blood pressure 100 mm[Hg] Magy Emiliano Other [employer] Other 06-01-2022 14:39-0400 Body height 182.88 cm [employer] Work Phone: [employer] [facility] [employer] [facility] DO Work Phone: 06-01-2022 14:39-0400 Body mass index (BMI) [Ratio] 29.97 kg/m2 [employer] Work Phone: [facility] [employer] DO Work Phone: 06-01-2022 14:39-0400 Body surface area Derived from formula 2.22 m2 [employer] Work Phone: [employer] [facility] [employer] 250 DO Work Phone: 06-01-2022 14:39-0400 Body weight 100.25 kg [employer] Work Phone: [employer] [facility] [employer] 250 DO Work Phone: 06-01-2022 14:39-0400 Diastolic blood pressure 64 mm[Hg] Justin Tiwari Lisco Work Phone: [facility] [employer] 250 DO Work Phone: 06-01-2022 14:39-0400 Heart rate 83 /min Rugmalinda Tiwari Juan Work Phone: [facility] [employer] 250 DO Work Phone: 06-01-2022 14:39-0400 Systolic blood pressure 130 mm[Hg] Rugen Karie Lisco Work Phone: [facility] [employer] 250 DO Work Phone: 04-21-2022 11:20-0400 Body height 182.88 cm Magy Emiliano Other [employer] Other 04-21-2022 11:20-0400 Body mass index (BMI) [Ratio] 29.45 kg/m2 Magy Emiliano Other [employer] Other 04-21-2022 11:20-0400 Body temperature 96.5 [degF] Magy Emiliano Other [employer] Other 04-21-2022 11:20-0400 Body weight 98.52 kg Magy Emiliano Other [employer] Other 04-21-2022 11:20-0400 Diastolic blood pressure 60 mm[Hg] Magy Emiliano Other [employer] Other 04-21-2022 11:20-0400 Respiratory rate 18 /min Magy Emiliano Other [employer] Other 04-21-2022 11:20-0400 SaO2% (BldA) [Mass fraction] 94 % Magy Emiliano Other [employer] [facility] [employer] Other 04-21-2022 11:20-0400 Systolic blood pressure 120 mm[Hg] Magy Giordanodir Other [facility] [employer] Other Encounters Encounter Date Encounter Type Care Provider Facility Start: 11-20-2024 Non-patient / Non-visit Justin Martinez MD Work Phone: [facility] Work Phone: Start: 11-20-2024 Evaluation and manag ement of inpatient Justin Martinez MD Work Phone: [facility] [place] [facility] Work Phone: Start: 11-20-2024 End: 11-20-2024 ambulatory Justin Martinez MD Work Phone: [facility] Work Phone: Start: 11-20-2024 End: 11-20-2024 Patient encounter procedure Justin Martinez MD Work Phone: [facility] Work Phone: Start: 11-14-2024 End: 11-21-2024 Telephone [facility] Comment on above: Hospital Follow-up Start: 11-12-2024 End: 11-12-2024 Clinisync Result Encounter Generic External Data Provider [facility] External Department Unsolicited Start: 11-12-2024 End: 11-12-2024 Clinisync Result Encounter Generic External Data Provider [facility] External Department Unsolicited Start: 11-12-2024 End: 11-12-2024 Telephone encounter Justin Martinez MD Work Phone: [facility] Start: 11-09-2024 ambulatory [facility] Start: 11-08-2024 End: 11-15-2024 Emergency department patient visit [facility] Start: 11-07-2024 Non-patient / Non-visit Justin Martinez MD Work Phone: [facility] Work Phone: Start: 10-28-2024 End: 10-28-2024 Patient encounter procedure Justin Martinez MD Work Phone: [facility] Work Phone: Start: 10-28-2024 End: 10-28-2024 ambulatory Justin Martinez MD Work Phone: [facility] Work Phone: Start: 10-28-2024 End: 10-28-2024 ambulatory Justin Martinez MD Work Phone: [facility] Work Phone: Start: 10-28-2024 End: 10-28-2024 Patient encounter procedure Justin Martinez MD Work Phone: [facility] Work Phone: Start: 10-21-2024 End: 10-21-2024 Transitional care manage srvc 14 day discharge Justin Martinez MD Work Phone: [facility] Comment on above: 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, 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) ([facility]/HCC) (Primary Dx); CKD stage 3b, GFR 30-44 ml/min ([facility]); Anemia in other chronic diseases classified elsewhere; CHF (congestive heart failure), NYHA class IV, acute on chronic, diastolic (CMS/HCC) Start: 10-21-2024 End: 10-21-2024 ambulatory JUSTIN MARTINEZ Not Available Start: 10-19-2024 End: 10-20-2024 Evaluation and management of inpatient Justin Martinez MD Work Phone: [facility] [place] [facility] Work Phone: Start: 10-09-2024 End: 10-09-2024 Emergency department patient visit Justin Martinez MD Work Phone: [facility] Work Phone: Start: 09-16-2024 End: 09-16-2024 Patient encounter procedure Justin Martinez MD Work Phone: [facility] Work Phone: Start: 09-03-2024 End: 09-03-2024 Patient encounter procedure Justin Martinez MD Work Phone: [facility] [place] Work Phone: Start: 09-03-2024 End: 09-03-2024 ambulatory Justin Martinez MD Work Phone: [facility] Work Phone: Start: 09-03-2024 End: 09-03-2024 ambulatory [facility] Work Phone: Start: 09-03-2024 End: 09-03-2024 Patient encounter procedure [facility] Work Phone: Start: 08-09-2024 End: 08-10-2024 Refill Justin Martinez MD Work Phone: [facility] Comment on above: Atherosclerosis of n ative coronary artery of [place] heart without angina pectoris (CMS/HCC) (Primary Dx); Essential hypertension (CMS/HCC) Start: 07-16-2024 End: 07-16-2024 Office outpatient visit 25 minutes Justin Martinez MD Work Phone: [facility] Comment on above: 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, 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) (CMS/HCC) (Primary Dx); Atherosclerosis of [place] coronary artery of [place] heart without angina pectoris (CMS/HCC); Pulmonary hypertension (CMS/HCC); Coronary artery disease due to lipid rich plaque (CMS/HCC); Congestive heart failure due to hypertension (CMS/HCC) Start: 07-16-2024 End: 07-16-2024 ambulatory JUSITN MARTINEZ Not Available Start: 07-03-2024 End: 07-03-2024 ambulatory [facility] Work Phone: Start: 07-03-2024 End: 07-03-2024 Patient encounter procedure [facility] Work Phone: Start: 06-06-2024 End: 06-06-2024 ambulatory [facility] Work Phone: Start: 06-06-2024 End: 06-06-2024 Patient encounter procedure [facility] Work Phone: Start: 06-04-2024 End: 06-04-2024 Office outpatient visit 25 minutes Justin Martinez MD Work Phone: [facility] Comment on above: Pulmonary hypertensi on (CMS/HCC) (Primary Dx); Coronary artery disease due to lipid rich plaque (CMS/HCC); Congestive heart failure due to hypertension (CMS/HCC) Start: 06-04-2024 End: 06-04-2024 ambulatory JUSTIN MARTINEZ Not Available Start: 06-03-2024 Non-patient / Non-visit [facility] Work Phone: Start: 05-12-2024 End: 05-13-2024 Non-patient / Non-visit [facility] Work Phone: Start: 03-25-2024 End: 03-25-2024 ambulatory JUSTIN MARTINEZ Not Available Start: 03-06-2024 End: 03-06-2024 Patient encounter procedure MD Justin Martinez Work Phone: [facility] [place] Work Phone: Start: 03-06-2024 End: 03-06-2024 ambulatory MD Justin Martinez Work Phone: [facility] Work Phone: Start: 02-27-2024 End: 02-27-2024 ambulatory JUSTIN MARTINEZ Not Available Start: 02-22-2024 End: 02-22-2024 ambulatory MD Justin Martinez Work Phone: [facility] Work Phone: Start: 02-22-2024 End: 02-22-2024 Patient encounter procedure MD Justin Martinez Work Phone: [facility] [place] Work Phone: Start: 02-20-2024 End: 02-20-2024 ambulatory JUSTIN MARTINEZ Not Available Start: 02-15-2024 End: 02-15-2024 Patient encounter procedure MD Justin Martinez Work Phone: [facility] [place] Work Phone: Start: 02-15-2024 End: 02-15-2024 ambulatory MD Justin Martinez Work Phone: [facility] Work Phone: Start: 02-14-2024 End: 02-14-2024 Patient encounter procedure MD Justin Martinez Work Phone: [facility] [place] Work Phone: Start: 02-14-2024 End: 02-14-2024 ambulatory Justin Martinez Facility:[facility] Start: 01-26-2024 End: 01-26-2024 Patient encounter procedure MD Justin Martinez Work Phone: [facility] [place] Work Phone: Start: 01-26-2024 End: 01-26-2024 ambulatory MD Justin Martinez Work Phone: [facility] Work Phone: Start: 01-25-2024 End: 01-25-2024 ambulatory [facility] Work Phone: Start: 01-25-2024 End: 01-25-2024 Patient encounter procedure [facility] Work Phone: Start: 01-17-2024 Non-patient / Non-visit MD Brandon Martinez Work Phone: [facility] [employer] Work Phone: Start: 01-04-2024 End: 01-04-2024 ambulatory JUSTIN MARTINEZ Not Available Start: 06-13-2023 Assay of hemosiderin , garret Martinez MD Work Phone: [facility] Start: 03-16-2023 End: 03-16-2023 ambulatory Magy Emiliano Other [facility] [employer] Other Start: 03-16-2023 Office outpatient vi sit 25 minutes Magy Emiliano [facility] [place] Start: 06-01-2022 Office consultation new/estab patient 60 min Justin Martinez Work Phone: [facility] 250 DO Work Phone: Start: 06-01-2022 ambulatory Rashaad Stephens II Facility: Start: 05-30-2022 ambulatory Rashaad Stephens II [facility]i [facility] Start: 04-21-2022 End: 04-21-2022 ambulatory Magy Emiliano Other [facility] [employer] Other Start: 04-21-2022 Office outpatient vi sit [...] Date Procedure Procedure Detail Performing Clinician Start: 11-12-2024 ITP Generic Ex ternal Data Provider Start: 10-19-2024 Viral nucleic acid assay Justin Martinez MD Work Phone: Start: 10-19-2024 Plain chest X-ray Justin Martinez MD Work Phone: Start: 10-09-2024 Screening for occult blood in feces Justin Martinez MD Work Phone: Start: 10-09-2024 Computed tomography of abdomen and pelvis with contrast Justin Martinez MD Work Phone: Start: 11-17-2014 Colonoscopy Justin Martinez MD Work Phone: Cataract surgery Brandonen M Ald a Work Phone: Cholecystectomy Brandonen M Lisco Work Phone: Endarterectomy Rugen M Lisco Work Phone: Comment on above: Right carotid; Femoral endarterectomy Rugen M Juan Work Phone: Comment on above: Right- 05/11/2022- 3 stents placed; Hemorrhoidectomy Rugen M Ald a Work Phone: Placement of stent Brandonen M A lda Work Phone: Procedure on back Brandonen M Al da Work Phone: 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 Rugen M Juan Work Phone: Repair of retina for retinal detachment Rugen M Lisco Work Phone: Small intestine excision Rug en M Lisco Work Phone: Total colonoscopy Brandonen M Al da Work Phone: Comment on above: -; Plan of Treatment Date Care Activity Detail Author Start: 05-23-2029 DTaP,Tdap and Td Vac cines (2 - Td or Tdap) DTaP,Tdap and Td Vaccines (2 - Td or Tdap) [facility] [employer] Start: 11-30-2024 [facility] Start: 11-29-2024 [facility] Start: 11-28-2024 [facility] Start: 11-27-2024 [facility] Start: 11-26-2024 [facility] Start: 11-25-2024 End: 11-25-2024 Patient encounter procedure 11/25/2024 11:00 AM EST Office Visit [facility] [address] [facility] [address] [place] [address] Justin Martinez MD [address] [facility] [address] [place] [address] [facility] Start: 11-25-2024 [facility] Start: 11-24-2024 [facility] Start: 11-23-2024 [facility] Start: 11-22-2024 [facility] Start: 11-21-2024 [facility] Start: 11-20-2024 Patient referral to dietitian [facility] Start: 11-20-2024 [facility] Start: 11-20-2024 Hospital admission [facility] Start: 11-20-2024 Referral to cnc service engineer [facility] Start: 11-20-2024 Referral to political scientist [facility] Start: 11-20-2024 [facility] Start: 11-20-2024 [facility] Start: 11-17-2024 Screening for malign ant neoplasm of colon [facility] Start: 11-14-2024 End: 11-14-2024 Patient encounter procedure 11/14/2024 1:15 PM EST Office Visit [facility] [address] [facility] [address] [place] [address] Justin Martinez MD [address] [facility] [address] [place] [address] [facility] Start: 11-09-2024 Pneumococcal Vaccine : 65+ Years (3 of 3 - PPSV23 or PCV20) Pneumococcal Vaccine: 65+ Years (3 of 3 - PPSV23 or PCV20) [facility] Comment on above: Postponed from 07/17 (Other Patient Reasons) Start: 10-21-2024 End: 10-21-2024 Patient encounter procedure 10/21/2024 11:00 AM EST Office Visit [facility] [address] [facility] [address] [place] [address] Justin Martinez MD [address] [facility] [address] [place] [address] [facility] Start: 10-20-2024 Administration of prophylactic treatment [facility] Start: 10-20-2024 End: 10-20-2024 [facility] Start: 10-19-2024 Hospital admission [facility] Start: 10-19-2024 [facility] Start: 06-27-2024 End: 06-27-2024 Patient encounter procedure 06/27/2024 1:15 PM EDT Office Visit [facility] [address] [facility] [address] [place] [address] Justin Martinez MD [address] [facility] [address] [place] [address] [facility] Start: 06-16-2024 COVID-19 Vaccine ( season) COVID-19 Vaccine ( season) [facility] Start: 06-16-2024 Influenza vaccination Influenz a Vaccine (#1) [facility] Start: 01-26-2024 [facility] Start: 01-26-2024 Immunofixation for Urine [facility] Start: 07-17-2020 Pneumococcal Vaccine : 65+ Years (3 of 3 - PPSV23 or PCV20) Pneumococcal Vaccine: 65+ Years (3 of 3 - PPSV23 or PCV20) [facility] Start: 12-16-2016 Fall Risk Screening Fall Risk Screen ing [facility] Start: 12-16-1969 Adult BMI Screening Adult BMI Screen ing [facility] Start: 1962 Depression Screening Depression Scre ening [facility] Start: 1962 Tobacco Screening Tobacco Screening [facility] Start: 1951 Screening for malign ant neoplasm of colon [facility] Albumin [Mass/volume ] in Serum or Plasma [facility] Albumin/Globulin ratio [facility] Anion gap measurement [facility] Antibody measurement [facility] Basophils [#/volume] in Blood by Automated count [facility] Basophils/100 leukoc ytes in Blood by Automated count [facility] Electrophoresis: [id number] [facility] Electrophoresis: [id number] [facility] Electrophoresis: beta-globulin [facility] Electrophoresis: yony ma globulin [facility] Eosinophils/100 leuk ocytes in Blood by Automated count [facility] Erythrocyte distribu tion width [Ratio] by Automated count [facility] Erythrocytes [#/volu me] in Blood [facility] Globulin [Mass/volum e] in Serum [facility] Hematocrit [Volume F raction] of Blood [facility] Hemoglobin [Mass/vol ume] in Blood [facility] Homogenous nuclear A b pattern [Titer] in Serum [facility] IgA [Mass/volume] in Serum or Plasma [facility] IgG [Mass/volume] in Serum or Plasma [facility] IgM [Mass/volume] in Serum or Plasma [facility] Immunofixation for Urine [facility] Iron binding capacit y [Mass/volume] in Serum or Plasma [facility] Iron saturation [Mas s Fraction] in Serum or Plasma [facility] Knappa light chains.f ree [Mass/volume] in Serum [facility] Knappa light chains.f ree [Mass/volume] in Serum [facility] Knappa light chains.free/Lambda light chains.free [Mass Ratio] in Serum [facility] Knappa light chains.free/Lambda light chains.free [Mass Ratio] in Serum [facility] Lambda light chains. free [Mass/volume] in Serum or Plasma [facility] Lambda light chains. free [Mass/volume] in Serum or Plasma [facility] Leukocytes [#/volume ] corrected for nucleated erythrocytes in Blood by Automated coun [facility] Leukocytes [#/volume ] in Blood [facility] Lymphocytes [#/volum e] in Blood by Automated count [facility] Lymphocytes/100 leuk ocytes in Blood by Automated count [facility] MCH [Entitic mass] b y Automated count [facility] MCHC [Mass/volume] b y Automated count [facility] MCV [Entitic volume] by Automated count [facility] Monocytes [#/volume] in Blood by Automated count [facility] Monocytes/100 leukoc ytes in Blood by Automated count [facility] Myeloperoxidase Ab [Units/volume] in Serum by Immunoassay [facility] Natriuretic peptide. B prohormone N-Terminal [Mass/volume] in Serum or Plasma [facility] Neutrophil cytoplasm ic Ab.classic [Titer] in Serum by Immunofluorescence [facility] Neutrophils [#/volum e] in Blood by Automated count [facility] Neutrophils/100 leuk ocytes in Blood by Automated count [facility] Nuclear Ab [Titer] in Serum [facility] Nucleated erythrocyt es [Presence] in Blood by Automated count [facility] P-ANCA measurement [facility] Patient Education [facility] Work Phone: Patient referral [facility] Work Phone: Platelet mean volume [Entitic volume] in Blood by Automated count [facility] Platelets [#/volume] in Blood [facility] Protein [Mass/volume ] in Serum or Plasma [facility] Proteinase 3 Ab [Units/volume] in Serum by Immunoassay [facility] Renal function 1999 panel - Serum or Plasma [facility] Renal function 1999 panel - Serum or Plasma [facility] Renal function 1999 panel - Serum or Plasma [facility] Renal function 1999 panel - Serum or Plasma [facility] Reticulocytes [#/vol ume] in Blood [facility] Reticulocytes/100 erythrocytes in Blood [facility] Serum immunofixation [facility] Immunizations Immunization Date Immunization Notes Care Provider Fa [facility] 08-14-2023 Influenza, Seasonal, Quadrivalent, Adjuvanted Justin Martinez MD Work Phone: [facility] 08-14-2023 influenza virus vacc ine, unspecified formulation Justin Martinez MD Work Phone: [facility] 07-25-2022 Influenza, High-dose Seasonal, Quadrivalent, Preservative Free Justin Juan MD Work Phone: [facility] 09-01-2021 Pfizer-BioNTech COVI D-19 Vacc 30 MCG/0.3ML Intramuscular Suspension Rugen M Juan Work Phone: [place] [address] DO Work Phone: 07-19-2021 Fluzone High-Dose Quadrivalent 0.7 ML Intramuscular Suspension Prefilled Syringe Rugen M Juan Work Phone: [place] [address] DO Work Phone: 01-05-2021 Pfizer-BioNTech COVI D-19 Vacc 30 MCG/0.3ML Intramuscular Suspension Rugen M Lisco Work Phone: [place] [address] DO Work Phone: 12-14-2020 Pfizer-BioNTech COVI D-19 Vacc 30 MCG/0.3ML Intramuscular Suspension Rugen M Lisco Work Phone: [place] [address] DO Work Phone: 08-08-2020 Fluad Quadrivalent 0 .5 ML Intramuscular Prefilled Syringe Rugen M Lisco Work Phone: [facility] 10-01-2019 zoster vaccine recombinant Rugen M Juan Work Phone: [place] [address] DO Work Phone: 07-17-2019 pneumococcal conjuga te vaccine, 13 valent Rugen M Juan Work Phone: [place] [address] DO Work Phone: 07-17-2019 Seasonal trivalent influenza vaccine, adjuvanted, preservative free Rugen M Lisco Work Phone: [place] [address] DO Work Phone: 07-17-2019 zoster vaccine recombinant Rugen M Lisco Work Phone: [place] [address] DO Work Phone: 05-23-2019 tetanus toxoid, redu misty diphtheria toxoid, and acellular pertussis vaccine, adsorbed Rugen M Juan Work Phone: [place] [address] DO Work Phone: 07-24-2018 influenza, high dose seasonal, preservative-free Rugen M Lisco Work Phone: [place] [address] DO Work Phone: 07-18-2017 influenza, injectabl e, quadrivalent, contains preservative Rugen M Juan Work Phone: [place] [address] DO Work Phone: 07-13-2017 influenza, high dose seasonal, preservative-free Rugen Juan MD Work Phone: [facility] 07-18-2016 influenza, injectabl e, quadrivalent, preservative free Rugen M Juan Work Phone: [place] [address] DO Work Phone: 07-17-2015 influenza, seasonal, injectable, preservative free Rugen M Juan Work Phone: [place] [address] DO Work Phone: 07-30-2012 pneumococcal polysaccharide vaccine, 23 valent Rugen M Lisco Work Phone: [place] [address] DO Work Phone: Payers Date Payer Category Payer Private Health Insurance [employer] [id number] 2022 Unknown 2019 Managed Care Other (unspecified) [facility] [id number] 2016 Medicare [id number] 2016 Medicare [id number] 2016 Medicare [id number] 1959 Medicare [id number] 1959 Self-pay 1959 Unknown [id number] 1950 Unknown [id number] 2.16.840.1.000338.3.579.2 .593 1950 Unknown [id number] 2.16.840.1.804081.3.579.2 .593 1951 Unknown [id number] 2.16.840.1.048999.3.579.2 .593 1951 Unknown [id number] 2.16.840.1.276902.3.579.2 .593 1951 Unknown [id number] 2.16.840.1.119426.3.579.2 .356 1950 Unknown [id number] 2.16.840.1.141377.3.579.2 .1259 1951 Unknown [id number] 2.16.840.1.346727.3.579.2 .1259 1951 Unknown [id number] 2.16.840.1.317551.3.579.2 .1259 1951 Unknown [id number] 2.16.840.1.024229.3.579.2 .1258 1950 Unknown [id number] 2.16.840.1.049882.3.579.2 .1258 1950 Unknown [id number] 2.16.840.1.041169.3.579.2 .1258 1950 Unknown [id number] 2.16.840.1.543318.3.579.2 .9 1950 Unknown [id number] 2.16.840.1.187965.3.579.2 .1286 1950 Unknown [id number] 2.16.840.1.998556.3.579.2 .1286 Unknown [id number] 2.16.840.1.030029.3.579.2 .593 Unknown [id number] 2.16.840.1.203549.3.579.2 .593 Unknown [id number] 2.16.840.1.121879.3.579.2 .531 Unknown [id number] 2.16.840.1.030496.3.579.2 .531 Unknown [id number] 2.16.840.1.451042.3.579.2 .531 Unknown [id number] 2.16.840.1.432417.3.579.2 .531 Unknown [id number] 2.16.840.1.123439.3.579.2 .531 Unknown [id number] 2.16.840.1.778982.3.579.2 .531 Unknown [id number] 2.16.840.1.942681.3.579.2 .531 Unknown [id number] 2.16.840.1.878988.3.579.2 .531 Social History Date Type Detail Facility Unknown if ever smoked [facility] [employer] Other Start: 11-26-2020 End: 07-16-2024 Sex Assigned At [facility] [employer] Other Start: 11-26-2020 End: 06-04-2024 Former smoker Former smoker [facility] [address] DO Work Phone: Comment on above: Quit in 2014; 3 cups of coffee pola ly; Start: 1950 Sex Assigned At Male [facility] Start: 01-10-2020 End: 02-22-2024 Tobacco smoking status MSIS Ex-smoker (finding) [facility] Start: 10-16-1969 End: 10-16-2014 History of tobacco use Current smoker [facility] Start: 10-16-1969 End: 10-16-2014 History of tobacco use Cigarette Smoker [facility] Start: 01-10-2020 End: 06-04-2024 Tobacco use and exposure Smokeless tobacco non-user [facility] Start: 07-16-2024 End: 10-21-2024 Alcoholic beverage intake Ex-drinker (finding) [facility] Start: 03-26-2023 Tobacco Comment Last smoked: 1 -5 years [facility] Start: 03-26-2023 Alcohol Comment Audit-C points :2, Caffeine: more than 4 cups per day [facility] Start: 1950 Sex assigned at Not on file [facility] Start: 05-21-2015 End: 09-03-2024 Sex Male (finding) [facility] Start: 02-24-2020 Alcoholic beverage intake Current drinker of alcohol (finding) [facility] Unknown [facility] Start: 01-10-2020 Alcohol Comment social [facility] Goals Date Patient Goal Desired Activity /State Personal health goal Functional Status Date Assessment Result Facility 11-20-2024 Functional status Patient Not at Baseline [facility] Work Phone: 10-20-2024 Functional status Patient at Baseline [facility] Work Phone: 10-19-2024 Functional status Functional Sta tus Comment SOB with exertion preventing independent ADL. ;Pt reports weight loss with diuresis and poor appetite and change in diet. [facility] Work Phone: Mental Status Date Assessment Result Facility 11-20-2024 Cognitive function Cognitive Sta tus Patient at Baseline [facility] Work Phone: 10-20-2024 Cognitive function Cognitive Sta tus Patient at Baseline [facility] Work Phone: Clinical Notes 04-13-2022 to 11-14-2024 Telephone Encounter - Corry Garcia - 11/14/2024 3:34 PM ESTTelephone Encounter - Richelle Maurer - 11/14/2024 3:34 PM ESTTelephone Encounter - Cecilia Miner - 11/14/2024 3:34 PM EST Note Date & Type Note Facility 11-14-2024 Miscellaneous Notes Formattin g of this note might be different from the original. ----- Message from Jennifer Brown APRN-[employer] PROFESSIONAL sent at 11/09/2024 3:06 PM EST ----- Will need outpatient for follow up with general neurology due to concern for dementia. 1st attempt: Super[employer] contacted patient and left a voicemail offering to schedule in with our clinic for a hospital follow up appointment as we have received a provider message requesting to see patient in office. Supervisor Prep[employer] provided callback number for scheduling or to address any questions or concerns they may have. 2nd attempt: Left message for patient [facility] Telephone encount er Note ----- Message from RUBÉN Gama sent at 11/09/2024 3:06 PM EST ----- Will need outpatient for follow up with general neurology due to concern for dementia. [facility] 11-14-2024 Telephone encount er Note 1st attempt: Supervisor Prepress contacted patient and left a voicemail offering to schedule in with our clinic for a hospital follow up appointment as we have received a provider message requesting to see patient in office. Super[employer] provided callback number for scheduling or to address any questions or concerns they may have. [facility] 11-14-2024 Telephone encount er Note 2nd attempt: Left message for patient [employer] 11-12-2024 Telephone encount er Note Did a PA on epogen for pt , it was denied as pt has not tried retacrit injection solution (and this will also require a PA) please advise [facility] 11-12-2024 Miscellaneous Notes Formattin g of this note might be different from the original. 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 Right iliofemoral endarterectomy and patch with ipsilateral anterior saphenous vein. Abdominal Aorticogram with Stenting of right and left limbs. Balloon Angioplasty of the rt external iliac artery. OTHER SURGICAL HISTORY 05/11/2022 Right ext. iliac artery endarterectomy and patch utilizing great saphenous vein, [place] LAP,CHOLECYSTECTOMY 01/10/2020 Laparoscopic cholecystectomy, open laparotomy lysis [...] class 3 and CKD stage 4 (HCC) ([facility]) - Primary Consider Entresto BP currently [...] NYHA class IV, acute on chronic, diastolic ([facility]/HCC) Relevant Medications epoetin moni (Epogen) 2000 UNIT/ML [...] Flowsheet Row Patient Outreach from 10/14/[address] [facility] with [facility] Information ED, Hospital or Senior Care Facility Discharge? ED Patient has been contacted within 1 week of being seen in the ED Yes Diagnosis abdominal pain Discharge Date 10/09/24 Discharged To: Home Setting Discharge Hospital [facility] Engagement Call Start Time 1028 Admission Date [...] class 3 and CKD stage 4 (HCC) ([facility]) - Primary Consider Entresto BP currently low Lasix resume Watch weight On Jardiance Has O2 but will add portable His O2 sat will drop to 87-88% with minimal exertion. He would benefit from Portable O2 to help with ADLs and IADls Relevant Medications epoetin moni (Epogen) 2000 UNIT/ML injection CKD stage 3b, GFR 30-44 ml/min ([facility]) Fluid status improtant Add Epogen for low hgb 9 with comorbidities of CHF with recent hospitalization Relevant Medications epoetin moni (Epogen) 2000 UNIT/ML injection Anemia in other chronic diseases classified elsewhere Anemia needs treated Relevant Medications epoetin moni (Epogen) 2000 UNIT/ML injection Other Visit Diagnoses CHF (congestive heart failure), NYHA class IV, acute on chronic, diastolic ([facility]) Relevant Medications epoetin moni (Epogen) 2000 UNIT/ML injection Follow up in about 4 weeks (around 11/18/2024). documented in this encounter [facility] 10-20-2024 Discharge summary Note Date/Time October 20, 2024 1:34pm [place] [address] Discharge Summary Signed Patient: Char Alatorre MR#: [id number] : 1950 Acct:[id number] Age/Sex: 73 / M Adm Date: 5 Loc: Room: [address] [place] [address]: Geoff Swann DO Copies to: [...] to 40 mg after speaking with his cnc service engineer on the phone. His cnc service engineer in [facility] suggested increase Lasix temporarily to 40 mg [...] knows he has to follow-up with his cnc service engineer about this issue, and is considering perhaps [...] our local cardiology group or his own cnc service engineer outpatient. Patient is feeling better this morning, [...] is secondary to his pulmonary hypertension. His cnc service engineer is in [facility] as mentioned above, he is interested in [...] % (Auto) 67.5, Lymph % (Auto) 20.1, [place] % (Auto) 10.1, Eos % (Auto) 1.3, Baso % (Auto) 1.0, Nucleat RBC Rel Count 0.0, Neut # (Auto) 3.4, Lymph # (Auto) 1.0, [place] # (Auto) 0.5, Eos # (Auto) 0.1, [...] % (Auto) 72.4, Lymph % (Auto) 16.9, [place] % (Auto) 8.5, Eos % (Auto) 0.8, Baso % (Auto) 1.4, Nucleat RBC Rel Count 0.1, Neut # (Auto) 4.3, Lymph # (Auto) 1.0, [place] # (Auto) 0.5, Eos # (Auto) 0.0, [...] <Electronically signed by Alix Grimaldo> 10/20/24 1329 [facility] Work Phone: 1(605) 992-971401-05-2025 [place] [address] Discharge Summary Signed Patient: Char Alatorre MR#: [id number] : 1950 Acct:[id number] Age/Sex: 73 / M Adm Date: 5 Loc: Room: [address] [place] [address]: Geoff Swann DO Copies to: [...] oral,to 40 mg after speaking with his cnc service engineer on the phone. His cnc service engineer in [facility] suggested increase Lasix temporarily to 40 mg [...] knows he has to follow-up with his cnc service engineer about this issue, and is considering perhaps [...] our local cardiology group or his own cnc service engineer outpatient. Patient is feeling better this morning, [...] is secondary to his pulmonary hypertension. His cnc service engineer is in [facility] as mentioned above, he is interested in [...] % (Auto) 67.5, Lymph % (Auto) 20.1, [place] % (Auto) 10.1, Eos % (Auto) 1.3, Baso % (Auto) 1.0, Nucleat RBC Rel Count 0.0, Neut# (Auto) 3.4, Lymph # (Auto) 1.0, [place] # (Auto) 0.5, Eos # (Auto) 0.1, [...] % (Auto) 72.4, Lymph % (Auto) 16.9, [place] % (Auto) 8.5, Eos % (Auto) 0.8, Baso % (Auto) 1.4, Nucleat RBC Rel Count 0.1, Neut # (Auto) 4.3, Lymph # (Auto) 1.0, [place] # (Auto) 0.5, Eos # (Auto) 0.0, [...] 1242 Signed By: 10/20/24 1334 10/20/24 1329 [facility]01-04-2025 History and physical note Author Geoff Swann [facility] Note Date/Time October 19, 2024 4: 47pm [facility] [address] [place] [address] Hospitalist H&P Signed Patient: Char Alatorre MR#: [id number] : 1950 Acct:[id number] Age/Sex: 73 / M Adm Date: 5 Loc: Room: [address] [place] [address] Type: ADM IN Attending Dr: Geoff Swann [...] mg daily on September 25 per his cnc service engineer in [facility]. He recently called and said he is been feeling more shortness of breath and his cnc service engineer increased him back to 40 mg daily. [...] noted below or in HPI [facility] Medical History (Updated 10/19/24 @ [...] % (Auto) 16.9 % (.) 10/19/24 12:34 [place] % (Auto) 8.5 % (.) 10/19/24 12:34 Eos % (Auto) 0.8 % (.) 10/19/24 12:34 Baso % (Auto) 1.4 % (.) 10/19/24 12:34 Nucleat RBC Rel Count 0.1 /100 WBC (0-0.5) 10/19/24 12:34 Neut # (Auto) 4.3 x10E3/uL (1.8-7.7) 10/19/24 12:34 Lymph # (Auto) 1.0 x10E3/uL (1.00-4.8) 10/19/24 12:34 [place] # (Auto) 0.5 x10E3/uL (0.0-0.8) 10/19/24 12:34 [...] Lasix given today ?He has a primary cnc service engineer in [place] however they live here locally in [place] and are interested in switching care to [...] signed by Geoff Swann DO> 10/19/24 1647 [facility] Work Phone: 1(185) 603-994201-04-2025 [place] [address] Hospitalist H&P Signed Patient: Char Alatorre MR#: [id number] : 1950 Acct:[id number] Age/Sex: 73 / M Adm Date: 5 Loc: Room: [address] [place] [address] Type: ADM IN Attending Dr: Geoff Swann DO Copies to: MD Geoff Barry, ~ HPI DATE OF EXAMINATION: 10/19/24 CHIEF COMPLAINT: shortness of breath HISTORY OF PRESENT ILLNESS: Mr Alatorre is a 73-year-old male with a past medical history of CHF with preserved ejection fraction, hypertension, hyperparathyroidism, hyperlipidemia and AAA who presents hospital with chief, shortness of breath. This apparently started around [place] time. He came to our emergency room [...] mg daily on September 25 per his cnc service engineer in [facility]. He recently called and said he is been feeling more shortness of breath and his cnc service engineer increased him back to 40 mg daily. [...] noted below or in HPI [facility] Medical History (Updated 10/19/24 @ [...] % (Auto) 16.9 % (.) 10/19/24 12:34 [place] % (Auto) 8.5 % (.) 10/19/24 12:34 Eos % (Auto) 0.8 % (.) 10/19/24 12:34 Baso % (Auto) 1.4 % (.) 10/19/24 12:34 Nucleat RBC Rel Count 0.1 /100 WBC (0-0.5) 10/19/24 12:34 Neut # (Auto) 4.3 x10E3/uL (1.8-7.7) 10/19/24 12:34 Lymph # (Auto) 1.0 x10E3/uL (1.00-4.8) 10/19/24 12:34 [place] # (Auto) 0.5 x10E3/uL (0.0-0.8) 10/19/24 12:34 [...] Lasix given today ?He has a primary cnc service engineer in [place] however they live here locally in [place] and are interested in switching care to [...] DO 10/19/24 1633 Signed By: 10/19/24 1647 [facility]11-19-2024 Evaluation note* Diagnosis Onset Date Resolution Status Admit Date Aortic stenosis acute September 03, 2024 9:28am CKD (chronic kidney disease) stage 3, GFR 30-59 ml/min acute August 9:28am Nocturnal hypoxia acute 2023 9:28am PAD (peripheral artery disease) acut [...] CHF (congestive heart failure) acute 2024 3:29pm [facility] Work Phone: 1(212) 211-240811-19-2024 Evaluation note* Diagnosis Onset Date Resolution Status [...] Hyperlipidemia acute September 162023 10:25am Hyperparathyroidism acute Dece2023 10:25am Nephrolithiasis acute September 16, 2024 10:25am Proteinuria acute September 16, 2024 10:25am Acute exacerbation of CHF (congestive heart failure) acute 2024 3:29pm Acute hypoxic respiratory failure ac algaaciq October 19, 2024 3:29pm Anemia of renal disease acute J anuary 2024 3:29pm CKD (chronic kidney disease) stage 3, GFR 30-59 ml/min acute October 19, 2024 3:29pm Heart failure with preserved ejection fraction acute October 19, 2 025 3:29pm Severe obstructive sleep apnea acute October 19, 2024 3:29pm [facility] Work Phone: 1(412) 267-634511-19-2024 Evaluation note* Diagnosis Onset Date Resolution Status [...] disease) stage 3, GFR 30-59 ml/min acute Octuar y 2024 3:29pm Heart failure with preserved [...] Pulmonary hypertension acute Ja nuary 2024 11:03am [facility] Work Phone: 1(321) 634-543911-19-2024 Evaluation note* Diagnosis Onset Date Resolution Status Admit Date Aortic stenosis acute September 03, 2024 9:28am CKD (chronic kidney disease) stage 3, GFR 30-59 ml/min acute Novemb er 2023 9:28am Nocturnal hypoxia acute Novembe r 2023 9:28am Pulmonary hypertension acute No vember 2023 9:28am Severe obstructive sleep apnea acute September 03, 2024 9:28am Systolic CHF acute August 9:28am PAD (peripheral artery disease) inac tive September 03, 2024 9:28am Anemia of renal disease acute D [...] failure with preserved ejection fraction acute October 19 3:29pm Severe obstructive sleep apnea acute October 19, 2024 3:29pm Acute exacerbation of CHF (congestive heart failure) resolved ry 2024 3:29pm Acute hypoxic respiratory failure re solved October 19, 2024 3:29pm Chronic respiratory failure with hypoxia acute October 28 11:03am CHRIS (obstructive sleep apnea) acute October 28, 2024 11:03am Pulmonary hypertension acute Ja nuary 2024 11:03am [facility] Work Phone: 1(562) 928-273211-19-2024 Evaluation note* Diagnosis Onset Date Resolution Status Admit Date Aortic stenosis acute September 03, 2024 9:28am CKD (chronic kidney disease) stage 3, GFR 30-59 ml/min acute Novemb er 2023 9:28am Nocturnal hypoxia acute Novembe r 2023 9:28am Pulmonary hypertension acute No vember 2023 9:28am Severe obstructive sleep apnea acute September 03, 2024 9:28am Systolic CHF acute August 9:28am PAD (peripheral artery disease) inac tive September 03, 2024 9:28am Anemia of renal disease acute D [...] Pulmonary hypertension acute Ja nuary 2024 11:03am Acute kidney injury acute u lily2024 9:46am Acute systolic (congestive) heart failure acute November 20 9:46am Chronic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 Nurse Active Magy Cummings MD Specialist Active Gopal [...] October 28, 2024 End: October 28, 2024 Global Cmo Relationship Specialty Start Date End Date Justin Martinez MD [address] [place] [address] PCP - ACO Reach 03/09/23 Justin Martinez MD [address] [place] [address] [place] [address] PCP - General 03/24/23 Global Cmo Relationship Specialty Start Date End Date Justin Martinez MD [address] [place] [address] [place] [address] PCP - ACO Reach 03/09/23 Justin Martinez MD [address] [place] [address] [place] [address] PCP - General 03/24/23 Team Status: Inactive Member Role Status Dates Justin Martinez MD Primary Care Provider Active S tart: October 28, 2024 End: October 28, 2024 Prashant Mosqueda MD Attending Provider Active S tart: October 28, 2024 End: October 28, 2024 Canelo Teran DO Referring Provider Active St art: October 28, 2024 End: October 28, 2024 Team Status: Active Member Role Status Dates Justin Martinez MD Primary Care Provider Active S tart: November 07, 2024 Prashant Mosqueda MD Attending Provider, Other Provider Active Start: November 07, 2024 Canelo Teran DO Referring Provider Active St art: November 07, 2024 Team Status: Inactive Member Role Status Dates Justin Martinez MD Primary Care Provider Active S tart: November 20, 2024 End: November 20, 2024 Odalys Spaulding MD Attending Provider Active Sta rt: November 20, 2024 End: November 20, 2024 Geoff Swann DO Referring Provider Active St art: November 20, 2024 End: November 20, 2024 Team Status: Active Member Role Status Dates Justin Martinez MD Primary Care Provider Active S tart: November 20, 2024 Odalys Spaulding MD Attending Provider Active Sta rt: November 20, 2024 Team Status: Inactive Member Role Status Dates Justin Martinez MD Primary Care Provider Active S tart: November 20, 2024 End: November 20, 2024 Odalys Spaulding MD Attending Provider Active Sta rt: November 20, 2024 End: November 20, 2024 Team Status: Active Member Role Status Dates Justin Martinez MD Primary Care Provider Active S tart: November 20, 2024 Turner Knott DO Admit Provider , Attending Provider Active Start: November 20, 2024 Kelly Gomez MD Other Provider Active Start: 2024 Maria E Almendarez RN Other Provider Active Star t: November 20, 2024 Med Baltazar MD Other Provider Active Start: 2024 Chase Larkin MD Other Provider Active Start: November 20, 2024 Odalys Spaulding MD Other Provider Active Start: November 20, 2024 Team Status: Active Member Role Status Dates Justin Martinez MD Primary Care Provider Active S tart: November 20, 2024 Turner Knott DO Admit Provider , Other Provider Active Start: November 20, 2024 Kelly Gomez MD Other Provider Active Start: 2024 Maria E Almendarez RN Other Provider Active Star t: November 20, 2024 Med Baltazar MD Other Provider Active Start: 2024 Chase Larkin MD Other Provider Active Start: November 20, 2024 Odalys Spaulding MD Attending Provider, Other Provider Active Start: November 20, 2024 [employer] Relationship Specialty Start Date End Date [place] [address] PCP - General Family Medicine 12/11/19 Goals (unrecognized section and content) Goals may [...] BE BASED ON THE PRIMARY CLINICAL RECORDS. [facility] [employer] [facility]. provides no warranty or guarantee of the accuracy or completeness of information in this document.
--- OUTSIDE RECORDS SUMMARY | 2024-11-22 07:37 | XMS_ITS | CCD ---
Author Organization [facility] Care Team Providers Care Senior Business Development Manager Name Role Phone JUAN, DR ANDERSON Primary [...] Unavailable MD Justin Martinez Primary Care Provider MD Magy Cummings Attending Provider [phone] Justin Martinez MD Unavailable Justin Martinez MD Primary Care Provider [phone] Justin Martinez MD Primary Care Provider Magy Cummings MD Attending Provider Viji MARTINEZ, Mary Tyler Other Provider Arturo Le MD Emergency Provider Joel De La Paz DO Emergency Provider Geoff Swann DO Admit Provider [phone] Geoff Swann DO Attending Provider JUAN, RUGEN M Attending Unavailable JUAN, RUGEN M Attending Unavailable JUAN, RUGEN M Referring Unavailable JUAN, RUGEN M Attending Unavailable JUAN, RUGEN M Attending Unavailable JUAN, RUGEN M Attending Unavailable JUAN, RUGEN M Attending Unavailable Phil MARTINEZ, Donna Sawyer Referring Provider Trav Anand MD Attending Provider Mascot, Rugen M Primary Care Unavailable Emiliano, Magy Admitting Unavailable Emiliano, Magy Attending Unavailable Emiliano, Magy Attending Unavailable Emiliano, Magy Admitting Unavailable Juan, Rugen M Primary Care Unavailable Emiliano, Magy Attending Unavailable Emiliano, Magy Admitting Unavailable Mascot, Rugen M Primary Care Unavailable NON STAFF Referring Unavailable Mary Hallman Consulting Unavailable Emiliano, Magy Attending Unavailable Emiliano, Magy Admitting Unavailable Juan, Rugen M Primary Care Unavailable Arturo Le Admitting Unavailable Arturo Le Attending Unavailable Juan, Rugen M Primary Care Unavailable Mascot, Rugen M Primary Care Unavailable Samsa, Canelo P Referring Unavailable Prashant Mosqueda Admitting Unavailable Prashant Mosqueda Attending Unavailable Geoff Swann Admitting Unavailable Geoff Swann Attending Unavailable Mascot, Rugen M Primary Care Unavailable Mascot, Rugen M Primary Care Unavailable Emiliano, Magy Admitting Unavailable Emiliano, Magy Attending Unavailable JUAN, RUGEN M Referring Unavailable JUAN, RUGEN M Primary Care Unavailable JUAN, RUGEN M Primary Care Unavailable INPATIENT, TELENEUROLOGY Consulting Unavail able ABAD MONTERO Consulting Unavailable Panda MD, Prashant N. Attending Provider Canelo Teran DO Referring Provider [phone] Jasson MARTINEZ, Odalys Attending Provider [phone] Turner Knott DO Admit Provider [phone] Turner Knott DO Attending Provider Jason MARTINEZ, Kelly Other Provider Tanesha KEANE, Maria E Other Provider Unavailable Delaney MARTINEZ, Med Other Provider Trae MARTINEZ, Chase [...] (Norvasc) 10 MG tablet Indications: Essential hypertension ([facility]) Take 0.5 tablets (5 mg) by mouth [...] , CKD stage 3b, GFR 30-44 ml/min ([facility]) , Anemia in other chronic diseases classified elsewhere , CHF (congestive heart failure), NYHA class IV, acute on chronic, diastolic ([facility]) Inject 1 mL (2,000 Units) under the [...] 0 Refills: 0 Ordered: 01-Jun-2022 DO Active Ukcosylzwxj-Cbzzopxmg-Woutys (Trelegy Ellipta) 200-62.5-25 MCG/ACT aerosol powder (2 sources) Start: 03-25-2024 End: 06-04-2024 take 1 puff(s) by inhalation once daily Lhzbopjdfey-Aruvaqtkj-Lognpw (Trelegy Ellipta) 200-62.5-25 MCG/ACT aerosol powder Indications: Pulmonary emphysema, unspecified emphysema type ([facility]) Inhale 1 puff Daily 3 each 1 [...] 06, 2024 10:34am Start: 02-22-2024 End: 06-06-2024 Ncqzhnkcbbz-Agjijuckk-Gnadly er (Trelegy Ellipta) 200-62.5-25 mcg blister with [...] FreeTextSi capsule Orally Once a day at [facility]; Note: Source Status: Taking; Provider: Emiliano Bhatti [...] 2 capsule Orally Once a day at [facility] Active potassium chloride 20 meq extended release [...] Coronary atherosclerosis; Translations: [Atherosclerotic heart disease of [place] coronary artery without angina pectoris] Onset: 03-24-2023 [...] Onset: 10-05-2021 Episodic Other aftercare (1 source) longterm (current) use of aspirin; Translations: [PRISON CURRENT USE OF ASPIRIN] Onset: 02-04-2021 Episodic Other aftercare (1 source) 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; Translations: [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 THERAPY] Onset: 02-04-2021 Episodic Other [...] activity/volume] in Serum or Plasma High 7-52 [facility] Albumin [Mass/volume] in Ser um or Plasma by Bromocresol green (BCG) dye binding methoOrdered By: Turner Knott on 11-20-2024 Albumin BCG dye [Mass/Vol] Albumin [Mass/volume] in Serum or Plasma by Bromocresol green (BCG) dye binding metho Low 3.5-5.7 [facility] Alkaline phosphatase [Enzyma tic activity/volume] in Serum or PlasmaOrdered By: Turner Knott on 11-20-2024 ALP [Catalytic activity/Vol] Alkaline phosphatase [Enzymatic activity/volume] in Serum or Plasma High 34-104 [facility] Aspartate aminotransferase [ Enzymatic activity/volume] in Serum or PlasmaOrdered By: Turner Knott on 11-20-2024 AST [Catalytic activity/Vol] Aspartate aminotransferase [Enzymatic activity/volume] in Serum or Plasma High 13-39 [facility] Basophils Auto (Bld) [#/Vol] Ordered By: Turner Knott on 11-20-2024 Basophils (Bld) [#/Vol] Automated basophil count 0.0-0.2 [facility] Basophils/100 WBC Auto (Bld) Ordered By: Turner Knott on 11-20-2024 Basophils/100 WBC (Bld) Automated basophil % . [facility] Bilirubin.direct [Mass/volum e] in Serum or PlasmaOrdered By: Turner Knott on 11-20-2024 Bilirubin.direct [Mass/Vol] Bilirubin.direct [Mass/volume] in Serum or Plasma High 0.03-0.18 [facility] Bilirubin.total [Mass/volume ] in Serum or PlasmaOrdered By: Turner Knott on 11-20-2024 Bilirubin [Mass/Vol] Bilirubin.total [Mass/volume] in Serum or Plasma High 0.3-1.0 [facility] Comment on above: Samples from patient s who have taken Naproxen have shown spurious elevation in Total Bilirubin levels. A metabolite of Naproxen, O-desmethylnaproxen, has been shown to interfere with the Lenny-Myke method for measuring Total Bilirubin. Calcium [Mass/volume] in Ser um or PlasmaOrdered By: Turner Knott on 11-20-2024 Calcium [Mass/Vol] Calcium [Mass/volume ] in Serum or Plasma 8.6-10.3 [facility] Carbon dioxide, total [Moles /volume] in Serum or PlasmaOrdered By: Turner Knott on 11-20-2024 CO2 [Moles/Vol] Carbon dioxide, tota l [Moles/volume] in Serum or Plasma 21.0-31.0 [facility] Chloride [Moles/volume] in S zoey or PlasmaOrdered By: Turner Knott on 11-20-2024 Chloride [Moles/Vol] Chloride [Moles/vol ume] in Serum or Plasma 98-107 [facility] Creatinine [Mass/volume] in Serum or PlasmaOrdered By: Turner Knott on 11-20-2024 Creatinine [Mass/Vol] Creatinine [Mass/v olume] in Serum or Plasma High 0.70-1.30 [facility] Eosinophils Auto (Bld) [#/Vo l]Ordered By: Turner Knott on 11-20-2024 Eosinophils (Bld) [#/Vol] Automated eosinophil count 0.0-0.45 [facility] Eosinophils/100 WBC Auto (Bl d)Ordered By: Turner Knott on 11-20-2024 Eosinophils/100 WBC (Bld) Automated eosinophil % . [facility] Erythrocyte distribution wid th Auto (RBC) [Ratio]Ordered By: Turner Knott on 11-20-2024 Erythrocyte distribution width (RBC) [Ratio] Erythrocyte distribution width [Ratio] by Automated count High 12.0-14.8 [facility] Globulin Calc (S) [Mass/Vol] Ordered By: Turner Knott on 11-20-2024 Globulin (S) [Mass/Vol] Serum globulin measurement by calculation (mass/volume) [facility] Glucose [Mass/volume] in Ser um or PlasmaOrdered By: Turner Knott on 11-20-2024 Glucose [Mass/Vol] Glucose [Mass/volume ] in Serum or Plasma High 70-100 [facility] Comment on above: ADA recommended refe rence [...] by Automated count Low 38.8-50.0 [facility] Hemoglobin [Mass/volume] in BloodOrdered By: Turner Knott on 11-20-2024 Hemoglobin (Bld) [Mass/Vol] Hemoglobin [Mass/volume] in Blood Low 13.0-17.0 [facility] INR in Platelet poor plasma by Coagulation assayOrdered By: Turner Knott on 11-20-2024 INR Coag (PPP) [Relative time] INR in Platelet poor plasma by Coagulation assay [facility] Comment on above: INR Therapeutic Rang e [...] Blood by Automated coun 4.1-10.5 [facility] Lymphocytes Auto (Bld) [#/Vo l]Ordered By: Turner nKott on 11-20-2024 Lymphocytes (Bld) [#/Vol] Lymphocytes [#/volume] in Blood by Automated count Low 1.00-4.8 [facility] Lymphocytes/100 WBC Auto (Bl d)Ordered By: Turner Knott on 11-20-2024 Lymphocytes/100 WBC (Bld) Lymphocytes/100 leukocytes in Blood by Automated count . [facility] MCH Auto (RBC) [Entitic mass ]Ordered By: Turner Knott on 11-20-2024 MCH (RBC) [Entitic mass] MCH [Entitic mass] by Automated count Low 27.5-35.2 [facility] MCHC Auto (RBC) [Mass/Vol]Or dered By: Turner Knott on 11-20-2024 MCHC (RBC) [Mass/Vol] MCHC [Mass/volume] by Automated count Low 32.5-35.6 [facility] MCV Auto (RBC) [Entitic vol] Ordered By: Turner Knott on 11-20-2024 MCV (RBC) [Entitic vol] MCV [Entitic volume] by Automated count Low 83.5-101 [facility] Magnesium [Mass/volume] in S zoey or PlasmaOrdered By: Turner Knott on 11-20-2024 Magnesium [Mass/Vol] Magnesium [Mass/vol ume] in Serum or Plasma 1.9-2.7 [facility] Monocytes Auto (Bld) [#/Vol] Ordered By: Turner Knott on 11-20-2024 Monocytes (Bld) [#/Vol] Automated blood monocyte count 0.0-0.8 [facility] Monocytes/100 WBC Auto (Bld) Ordered By: Turner Knott on 11-20-2024 Monocytes/100 WBC (Bld) Automated monocyte % . [facility] Natriuretic peptide B [Mass/ Vol]Ordered By: Turner Knott on 11-20-2024 Natriuretic peptide B (Bld) [Mass/Vol] BNP ser/plas High 5-100 [facility] Neutrophils Auto (Bld) [#/Vo l]Ordered By: Turner Knott on 11-20-2024 Neutrophils (Bld) [#/Vol] Neutrophils [#/volume] in Blood by Automated count 1.8-7.7 [facility] Neutrophils/100 WBC Auto (Bl d)Ordered By: Turner Knott on 11-20-2024 Neutrophils/100 WBC (Bld) Automated neutrophil % . [facility] No Panel InformationOrdered By: Turner Knott on 11-20-2024 Estimated GFR (CKD-EPI) 21.060 mL/Min [facility] Pharmacy Creatinine Clearance (Chem N/A [facility] Nucleated erythrocytes [Pres ence] in Blood by Automated countOrdered By: Turner Knott on 11-20-2024 Nucleated RBC Auto Ql (Bld) Nucleated erythrocytes [Presence] in Blood by Automated count 0-0.5 [facility] Platelet mean volume Auto (B ld) [Entitic vol]Ordered By: Turner Knott on 11-20-2024 Platelet mean volume (Bld) [Entitic vol] Platelet mean volume [Entitic volume] in Blood by Automated count 6.6-10.1 [facility] Platelets Auto (Bld) [#/Vol] Ordered By: Turner Knott on 11-20-2024 Platelets (Bld) [#/Vol] Platelets [#/volume] in Blood by Automated count 150-450 [facility] Potassium [Moles/volume] in Serum or PlasmaOrdered By: Turner Knott on 11-20-2024 Potassium [Moles/Vol] Potassium [Moles/v olume] in Serum or Plasma 3.5-5.1 [facility] Protein [Mass/volume] in Ser um or PlasmaOrdered By: Turner Knott on 11-20-2024 Protein [Mass/Vol] Protein [Mass/volume ] in Serum or Plasma Low 6.4-8.9 [facility] Prothrombin time (PT)Ordered By: Turner Knott on 11-20-2024 PT Coag (PPP) [Time] Prothrombin time (PT) High 9.0- 12.9 [facility] Comment on above: A hematocrit value g reater than 55% may lead to inaccurate results in coagulation testing. Patients having hematocrit values >55% require a special collection tube for coagulation studies. Please contact the laboratory at [phone] for redraw instructions. RBC Auto (Bld) [#/Vol]Ordere d By: Turner Knott on 11-20-2024 RBC (Bld) [#/Vol] Erythrocytes [#/volu me] in Blood by Automated count 3.90-5.60 [facility] Serum or plasma albumin/glob ulin mass ratioOrdered By: Turner Knott on 11-20-2024 Albumin/Globulin [Mass ratio] Serum or plasma albumin/globulin mass ratio [facility] Serum or plasma anion gap de terminationOrdered By: Turner Knott on 11-20-2024 Anion gap [Moles/Vol] Serum or plasma an ion gap determination 6.0-15.0 [facility] Serum or plasma non-glucuron idated bilirubin measurement (mass/volume)Ordered By: Turner Knott on 11-20-2024 Bilirubin.indirect [Mass/Vol] Serum or plasma non-glucuronidated bilirubin measurement (mass/volume) [facility] Sodium [Moles/volume] in Ser um or PlasmaOrdered By: Turner Knott on 11-20-2024 Sodium [Moles/Vol] Sodium [Moles/volume ] in Serum or Plasma Low 136-145 [facility] Urea nitrogen [Mass/volume] in Serum or PlasmaOrdered By: Turner Knott on 11-20-2024 Urea nitrogen [Mass/Vol] Urea nitrogen [Mass/volume] in Serum or Plasma High 7-25 [facility] WBC Auto (Bld) [#/Vol]Ordere d By: Turner Knott on 11-20-2024 WBC (Bld) [#/Vol] Leukocytes [#/volume ] in Blood by Automated count 4.1-10.5 [facility] aPTT in Platelet poor plasma by Coagulation assayOrdered By: Turner Knott on 11-20-2024 aPTT Coag (PPP) [Time] Activated partial thromboplastin time (aPTT) in platelet poor plasma by coagulation a High 25.1-36.5 [facility] Comment on above: A hematocrit value g reater than 55% may lead to inaccurate results in coagulation testing. Patients having hematocrit values >55% require a special collection tube for coagulation studies. Please contact the laboratory at [phone] for redraw instructions. ITPon 11-12-2024 [place] [address] Cardiac Rehab Report Signed Patient: CHAR ALATORRE MR#: [id number] : 1950 Acct:[id number] Age/Sex: 73 / M ADM Date: 10/23/24 Loc: CR Attending Dr: Non-Staff Physician Kamini Ordering Physician: Pepe Hernandez D.O. Date of Service: 11/12/24 Procedure(s): ITP Accession Number(s): [id number] cc: [facility] Test Date: 2024-11-12 Pat Name: CHAR ALATORRE Department: Room: - Gender: Male [employer] Officer: : 1950 Requested By: PEPE HERNANDEZ Order Number: [id number] Reading MD: PEPE HERNANDEZ Interpretive Statements Session Date: Electronically Signed On 11-12-2024 20:09:15 EST by PEPE HERNANDEZ Dictated By: Pepe Hernandez D.O. Signed By: 11/12/24200811/12/242008 DD/ 0859 TD/TT: Trimming Cutter: [facility] Radiology, Radiologmary simon MD - 11/12/2024 [place] [address] Cardiac Rehab Report Signed Patient: CHAR ALATORRE MR#: [id number] : 1950 Acct:[id number] Age/Sex: 73 / M ADM Date: 10/23/24 Loc: CR Attending Dr: Non-Staff Physician Kamini Ordering Physician: Pepe Hernandez D.O. 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 Signed By: 11/12/24200811/12/242008 DD/ TD/TT: Trimming Cutter: [facility] Radiology Study observation (narrative) [facility] ITPOrdered By: Radiologist R adiology on 11-12-2024 [facility] Work Phone: A1C with Estimated Average G [facility] 10-20-2024 Glucose [Mass/Vol] 88 mg/dL Normal [facility] Comment on above: Result Comment: PERF ORMED BY: [place] [address] PATHOLOGIST SLIP SEAT COVERER GRANT SCHNEIDER M.D. Performed By: #### P TH #### [address] HbA1c (Bld) [Mass fraction] 4.7 % Normal 4.3-5.6 [facility] Comment on above: Result Comment: Incr eased risk for diabetes: 5.7 - 6.4 diabetes: >6.4 glycemic control for adults with diabetes: <7.0 Performed By: #### P TH #### [address] Basic Metabolic Panelon Anion gap [Moles/Vol] 9.2 mmol/L Normal 6.0-15.0 [facility] Comment on above: Performed By: #### P TH #### [address] Calcium [Mass/Vol] 9.5 mg/dL Normal 8.6-10.3 [facility] Comment on above: Performed By: #### P TH #### [address] Chloride [Moles/Vol] 101 mmol/L Normal 98-107 [facility] Comment on above: Performed By: #### P TH #### [address] CO2 [Moles/Vol] 31.1 mmol/L High 21.0-31.0 [facility] Comment on above: Performed By: #### P TH #### [address] Creatinine [Mass/Vol] 2.13 mg/dL High 0.70-1.30 [facility] Comment on above: Performed By: #### P TH #### [address] Creatinine Clr Calc Pharmacy 34.36 Normal [facility] Comment on above: Performed By: #### P TH #### [address] Estimated GFR 32.274 mL/Min Normal [facility] Comment on above: Performed By: #### P TH #### [address] Glucose [Mass/Vol] 96 mg/dL Normal 70-100 [facility] Comment on above: Result Comment: [place] Glucose Reference Range is dependent on time and content of last meal. Glucose of more than 200 mg/dL in a nonstressed, ambulatory subject supports the diagnosis of Diabetes Mellitus. ADA recommended reference range Performed By: #### P TH #### [address] Potassium [Moles/Vol] 3.3 mmol/L Low 3.5-5.1 [facility] Comment on above: Performed By: #### P TH #### [address] [place] [address] [place] Sodium [Moles/Vol] 138 mmol/L Normal 136-145 [facility] Comment on above: Performed By: #### P TH #### [facility] [address] Urea nitrogen [Mass/Vol] 24 mg/dL Normal 7-25 [facility] Comment on above: Performed By: #### P TH #### [facility] [address] Basophils Auto (Bld) [#/Vol] Ordered By: Geoff Swann on 10-20-2024 Basophils (Bld) [#/Vol] Automated basophil count 0.0-0.2 [facility] Basophils/100 WBC Auto (Bld) Ordered By: Geoff Swann on 10-20-2024 Basophils/100 WBC (Bld) Automated basophil % . [facility] Blood estimated average gluc ose determination by estimation from glycated hemoglobinOrdered By: Geoff Swann on 10-20-2024 Average glucose Estimated from glycated hemoglobin (Bld) [Mass/Vol] Glucose mean value [Mass/volume] in Blood Estimated from glycated hemoglobin [facility] Calcium [Mass/volume] in Ser um or PlasmaOrdered By: Geoff Swann on 10-20-2024 Calcium [Mass/Vol] Calcium [Mass/volume ] in Serum or Plasma 8.6-10.3 [facility] Carbon dioxide, total [Moles /volume] in Serum or PlasmaOrdered By: Geoff Swann on 10-20-2024 CO2 [Moles/Vol] Carbon dioxide, tota l [Moles/volume] in Serum or Plasma High 21.0-31.0 [facility] Chloride [Moles/volume] in S zoey or PlasmaOrdered By: Geoff Swann on 10-20-2024 Chloride [Moles/Vol] Chloride [Moles/vol ume] in Serum or Plasma 98-107 [facility] Cholesterol [Mass/volume] in Serum or PlasmaOrdered By: Geoff Swann on 10-20-2024 Cholesterol [Mass/Vol] Cholesterol [Mass /volume] in Serum or Plasma Low 140-200 [facility] Comment on above: Chol less than 200 m g/dl low riskChol 201-239 mg/dl borderline riskChol 240 mg/dl and greater high risk Cholesterol in HDL [Mass/vol ume] in Serum or PlasmaOrdered By: Geoff Swann on 10-20-2024 Cholesterol in HDL [Mass/Vol] Serum or plasma high density lipoprotein (HDL) cholesterol measurement 23- [facility] Comment on above: HDL CHOL ATP-III CLA SSIFICATION Cardiovascular RiskHDL > or equal to 60 mg/dL LOWHDL < 40 mg/dL HIGH Cholesterol in LDL Calc [Mas s/Vol]Ordered By: Geoff Swann on 10-20-2024 Cholesterol in LDL [Mass/Vol] Cholesterol in LDL [Mass/volume] in Serum or Plasma by calculation 0-100 [facility] Comment on above: LDL ATP III CLASSIFI CATIONLDL less than 100 mg/dL OptimalLDL 100-129 mg/dL Near or above optimalLDL 130-159 mg/dL Borderline highLDL 160-189 mg/dL HighLDL greater than 189 mg/dL Very high Cholesterol in VLDL Calc [Ma ss/Vol]Ordered By: Geoff Swann on 10-20-2024 Cholesterol in VLDL [Mass/Vol] Cholesterol in VLDL [Mass/volume] in Serum or Plasma by calculation [facility] Complete Blood Count Auto Di ffon 10-20-2024 Basophils (Bld) [#/Vol] 0.1 10*3/uL Normal 0.0-0.2 [facility] Comment on above: Result Comment: PERF ORMED BY: [place] [address] PATHOLOGIST SLIP SEAT COVERER GRANT SCHNEIDER M.D. Performed By: #### A DDONUAPLUS #### [facility] [address] [place] [address] [place] Basophils/100 WBC (Bld) 1.0 % Normal . [facility] Comment on above: Performed By: #### A DDONUAPLUS #### [facility] [address] [place] [address] [place] Eosinophils (Bld) [#/Vol] 0.1 10*3/uL Normal 0.0-0.45 [facility] Comment on above: Performed By: #### A DDONUAPLUS #### [address] Eosinophils/100 WBC (Bld) 1.3 % Normal . [facility] Comment on above: Performed By: #### A DDONUAPLUS #### [address] Erythrocyte distribution width (RBC) [Ratio] 17.5 % High 12.0-14.8 [facility] Comment on above: Performed By: #### A DDONUAPLUS #### [address] Hematocrit (Bld) [Volume fraction] 27.9 % Low 38.8-50.0 [facility] Comment on above: Performed By: #### A DDONUAPLUS #### [address] Hemoglobin (Bld) [Mass/Vol] 9.0 g/dL Low 13.0-17.0 [facility] Comment on above: Performed By: #### A DDONUAPLUS #### [address] Lymphocytes (Bld) [#/Vol] 1.0 10*3/uL Normal 1.00-4.8 [facility] Comment on above: Performed By: #### A DDONUAPLUS #### [address] Lymphocytes/100 WBC (Bld) 20.1 % Normal . [facility] Comment on above: Performed By: #### A DDONUAPLUS #### [address] MCH (RBC) [Entitic mass] 24.2 pg Low 27.5-35.2 [facility] Comment on above: Performed By: #### A DDONUAPLUS #### [address] MCV (RBC) [Entitic vol] 75.2 fL Low 83.5-101 [facility] Comment on above: Performed By: #### A DDONUAPLUS #### [address] Mean Corpuscular HGB Conc 32.2 g/dL Low 32.5-35.6 [facility] Comment on above: Performed By: #### A DDONUAPLUS #### [address] Monocytes (Bld) [#/Vol] 0.5 10*3/uL Normal 0.0-0.8 [facility] Comment on above: Performed By: #### A DDONUAPLUS #### [address] Monocytes/100 WBC (Bld) 10.1 % Normal . [facility] Comment on above: Performed By: #### A DDONUAPLUS #### [address] Neutrophils (Bld) [#/Vol] 3.4 10*3/uL Normal 1.8-7.7 [facility] Comment on above: Performed By: #### A DDONUAPLUS #### [address] Neutrophils/100 WBC (Bld) 67.5 % Normal . [facility] Comment on above: Performed By: #### A DDONUAPLUS #### [address] NRBC% 0.0 /100{WBC} Normal 0-0.5 [facility] Comment on above: Performed By: #### A DDONUAPLUS #### [address] Platelet mean volume (Bld) [Entitic vol] 6.9 fL Normal 6.6-10.1 [facility] Comment on above: Performed By: #### A DDONUAPLUS #### [address] Platelets (Bld) [#/Vol] 235 10*3/uL Normal 150-450 [facility] Comment on above: Performed By: #### A DDONUAPLUS #### [facility] [address] RBC (Bld) [#/Vol] 3.71 10*6/uL Low 3.90-5.60 [facility] Comment on above: Performed By: #### A DDONUAPLUS #### [facility] [address] [place] [id number] [facility] WBC (Bld) [#/Vol] 5.0 10*3/uL Normal 4.1-10.5 [facility] Comment on above: Performed By: #### A DDONUAPLUS #### [facility] [address] [place] [id number] [facility] Creatinine [Mass/volume] in Serum or PlasmaOrdered By: Geoff Swann on 10-20-2024 Creatinine [Mass/Vol] Creatinine [Mass/v olume] in Serum or Plasma High 0.70-1.30 [facility] Eosinophils Auto (Bld) [#/Vo l]Ordered By: Geoff Swann on 10-20-2024 Eosinophils (Bld) [#/Vol] Automated eosinophil count 0.0-0.45 [facility] Eosinophils/100 WBC Auto (Bl d)Ordered By: Geoff Swann on 10-20-2024 Eosinophils/100 WBC (Bld) Automated eosinophil % . [facility] Erythrocyte distribution wid th Auto (RBC) [Ratio]Ordered By: Gefof Swann on 10-20-2024 Erythrocyte distribution width (RBC) [Ratio] Erythrocyte distribution width [Ratio] by Automated count High 12.0-14.8 [facility] Glucose [Mass/volume] in Ser um or PlasmaOrdered By: Geoff Swann on 10-20-2024 Glucose [Mass/Vol] Glucose [Mass/volume ] in Serum or Plasma 70-100 [facility] Comment on above: ADA recommended refe rence [...] by Automated count Low 38.8-50.0 [facility] Hemoglobin A1c/Hemoglobin.to shin in BloodOrdered By: Geoff Swann on 10-20-2024 HbA1c (Bld) [Mass fraction] Hemoglobin A1c percentage 4.3-5.6 [facility] Comment on above: Increased risk for d iabetes: 5.7 - 6.4diabetes: >6.4glycemic control for adults with diabetes: <7.0 Hemoglobin [Mass/volume] in BloodOrdered By: Geoff Swann on 10-20-2024 Hemoglobin (Bld) [Mass/Vol] Hemoglobin [Mass/volume] in Blood Low 13.0-17.0 [facility] Leukocytes [#/volume] correc anna for nucleated erythrocytes in Blood by Automated counOrdered By: Geoff Swann on 10-20-2024 WBC corrected for nucl RBC Auto (Bld) [#/Vol] Leukocytes [#/volume] corrected for nucleated erythrocytes in Blood by Automated coun 4.1-10.5 [facility] Lipid Panelon 10-20-2024 Cholesterol [Mass/Vol] 79 mg/dL Low 140-200 [facility] Comment on above: Result Comment: Chol less than 200 mg/dl low risk Chol 201-239 mg/dl borderline risk Chol 240 mg/dl and greater high risk Performed By: #### P TH #### [facility] [address] Cholesterol in HDL [Mass/Vol] 26 mg/dL Normal 23-92 [facility] Comment on above: Result Comment: HDL CHOL ATP-III CLASSIFICATION Cardiovascular Risk HDL > or equal to 60 mg/dL LOW HDL < 40 mg/dL HIGH Performed By: #### P TH #### [facility] [address] Cholesterol.total/Chol esterol in HDL [Mass ratio] 3.0 {ratio} Normal <5.0 [facility] Comment on above: Result Comment: PERF ORMED BY: [facility] [address] [place] [address] PATHOLOGIST [employer] SE[employer] GRANT SCHNEIDER M.D. Performed By: #### P TH #### [address] LDL Cholesterol,Calculated 35 mg/dL Normal 0-100 [facility] Comment on above: Result Comment: LDL ATP III CLASSIFICATION LDL less than 100 mg/dL Optimal LDL 100-129 mg/dL Near or above optimal LDL 130-159 mg/dL Borderline high LDL 160-189 mg/dL High LDL greater than 189 mg/dL Very high Performed By: #### P TH #### [address] Triglyceride w/Reflex 90 mg/dL Normal 0-149 [facility] Comment on above: Result Comment: TRIG ATP III CLASSIFICATION TRIG less than 150 mg/dL Normal TRIG 150-199 mg/dL Borderline high TRIG 200-500 mg/dL High TRIG greater than 500 mg/dL Very high Standard traceable to the Center for Disease Conrtrol and Prevention (CDC) test method. Performed By: #### P TH #### [address] VLDL CHOLESTEROL 18 mg/dL Normal [facility] Comment on above: Performed By: #### P TH #### [address] Lymphocytes Auto (Bld) [#/Vo l]Ordered By: Geoff Swann on 10-20-2024 Lymphocytes (Bld) [#/Vol] Lymphocytes [#/volume] in Blood by Automated count 1.00-4.8 [facility] Lymphocytes/100 WBC Auto (Bl d)Ordered By: Geoff Swann on 10-20-2024 Lymphocytes/100 WBC (Bld) Lymphocytes/100 leukocytes in Blood by Automated count . [facility] MCH Auto (RBC) [Entitic mass ]Ordered By: Geoff Swann on 10-20-2024 MCH (RBC) [Entitic mass] MCH [Entitic mass] by Automated count Low 27.5-35.2 [facility] MCHC Auto (RBC) [Mass/Vol]Or dered By: Geoff Swann on 10-20-2024 MCHC (RBC) [Mass/Vol] MCHC [Mass/volume] by Automated count Low 32.5-35.6 [facility] MCV Auto (RBC) [Entitic vol] Ordered By: Geoff Swann on 10-20-2024 MCV (RBC) [Entitic vol] MCV [Entitic volume] by Automated count Low 83.5-101 [facility] Magnesiumon 10-20-2024 Magnesium [Mass/Vol] 2.0 mg/dL Normal 1.9-2.7 [facility] Comment on above: Performed By: #### P TH #### [address] Magnesium [Mass/volume] in S zoey or PlasmaOrdered By: Geoff Swann on 10-20-2024 Magnesium [Mass/Vol] Magnesium [Mass/vol ume] in Serum or Plasma 1.9-2.7 [facility] Monocytes Auto (Bld) [#/Vol] Ordered By: Geoff Swann on 10-20-2024 Monocytes (Bld) [#/Vol] Automated blood monocyte count 0.0-0.8 [facility] Monocytes/100 WBC Auto (Bld) Ordered By: Geoff Swann on 10-20-2024 Monocytes/100 WBC (Bld) Automated monocyte % . [facility] Neutrophils Auto (Bld) [#/Vo l]Ordered By: Geoff Swann on 10-20-2024 Neutrophils (Bld) [#/Vol] Neutrophils [#/volume] in Blood by Automated count 1.8-7.7 [facility] Neutrophils/100 WBC Auto (Bl d)Ordered By: Geoff Swann on 10-20-2024 Neutrophils/100 WBC (Bld) Automated neutrophil % . [facility] No Panel InformationOrdered By: Geoff Swann on 10-20-2024 Estimated GFR (CKD-EPI) 32.274 mL/Min [facility] Pharmacy Creatinine Clearance (Chem 34.36 [facility] Nucleated erythrocytes [Pres ence] in Blood by Automated countOrdered By: Geoff Swann on 10-20-2024 Nucleated RBC Auto Ql (Bld) Nucleated erythrocytes [Presence] in Blood by Automated count 0-0.5 [facility] Platelet mean volume Auto (B ld) [Entitic vol]Ordered By: Geoff Swann on 10-20-2024 Platelet mean volume (Bld) [Entitic vol] Platelet mean volume [Entitic volume] in Blood by Automated count 6.6-10.1 [facility] Platelets Auto (Bld) [#/Vol] Ordered By: Geoff Swann on 10-20-2024 Platelets (Bld) [#/Vol] Platelets [#/volume] in Blood by Automated count 150-450 [facility] Potassium [Moles/volume] in Serum or PlasmaOrdered By: Geoff Swann on 10-20-2024 Potassium [Moles/Vol] Potassium [Moles/v olume] in Serum or Plasma Low 3.5-5.1 [facility] RBC Auto (Bld) [#/Vol]Ordere d By: Geoff Swann on 10-20-2024 RBC (Bld) [#/Vol] Erythrocytes [#/volu me] in Blood by Automated count Low 3.90-5.60 [facility] Serum or plasma anion gap de terminationOrdered By: Geoff Swann on 10-20-2024 Anion gap [Moles/Vol] Serum or plasma an ion gap determination 6.0-15.0 [facility] Serum or plasma total choles terol/high density lipoprotein (HDL) cholesterol mass ratOrdered By: Geoff Swann on 10-20-2024 Cholesterol.total/Chol esterol in HDL [Mass ratio] Serum or plasma total cholesterol/high density lipoprotein (HDL) cholesterol mass rat <5.0 [facility] Sodium [Moles/volume] in Ser um or PlasmaOrdered By: Geoff Swann on 10-20-2024 Sodium [Moles/Vol] Sodium [Moles/volume ] in Serum or Plasma 136-145 [facility] Triglyceride [Mass/volume] i n Serum or PlasmaOrdered By: Geoff Swann on 10-20-2024 Triglyceride [Mass/Vol] Triglyceride [Mass/volume] in Serum or Plasma 0-149 [facility] Comment on above: TRIG ATP III CLASSIF [...] in Serum or Plasma 7-25 [facility] WBC Auto (Bld) [#/Vol]Ordere d By: Geoff Swann on 10-20-2024 WBC (Bld) [#/Vol] Leukocytes [#/volume ] in Blood by Automated count 4.1-10.5 [facility] Alanine aminotransferase [En zymatic activity/volume] in Serum or PlasmaOrdered By: Joel De La Paz on 10-19-2024 ALT [Catalytic activity/Vol] Alanine aminotransferase [Enzymatic activity/volume] in Serum or Plasma Low 7-52 [facility] Albumin [Mass/volume] in Ser um or Plasma by Bromocresol green (BCG) dye binding methoOrdered By: Joel De La Paz on 10-19-2024 Albumin BCG dye [Mass/Vol] Albumin [Mass/volume] in Serum or Plasma by Bromocresol green (BCG) dye binding metho Low 3.5-5.7 [facility] Alkaline phosphatase [Enzyma tic activity/volume] in Serum or PlasmaOrdered By: Joel De La Paz on 10-19-2024 ALP [Catalytic activity/Vol] Alkaline phosphatase [Enzymatic activity/volume] in Serum or Plasma High 34-104 [facility] Aspartate aminotransferase [ Enzymatic activity/volume] in Serum or PlasmaOrdered By: Joel De La Paz on 10-19-2024 AST [Catalytic activity/Vol] Aspartate aminotransferase [Enzymatic activity/volume] in Serum or Plasma Low 13-39 [facility] B-Type Natriuretic Peptideon 10-19-2024 Natriuretic peptide B (Bld) [Mass/Vol] 2785.0 pg/mL High 5-100 [facility] Comment on above: Result Comment: PERF ORMED BY: [facility] [address] [place] [address] PATHOLOGIST [employer] SE[employer] C[employer]ER GRANT SCHNEIDER M.D. Performed By: #### I FE,URINE #### [facility] , Basophils Auto (Bld) [#/Vol] Ordered By: Joel De La Paz on 10-19-2024 Basophils (Bld) [#/Vol] Automated basophil count 0.0-0.2 [facility] Basophils/100 WBC Auto (Bld) Ordered By: Joel De La Paz on 10-19-2024 Basophils/100 WBC (Bld) Automated basophil % . [facility] Bilirubin.total [Mass/volume ] in Serum or PlasmaOrdered By: Joel De La Paz on 10-19-2024 Bilirubin [Mass/Vol] Bilirubin.total [Mass/volume] in Serum or Plasma High 0.3-1.0 [facility] COVID Cepheid NegativeOrdere d By: Joel De La Paz on 10-19-2024 SARS-CoV-2 (COVID-19) Ab IA Ql COVID Cepheid Negative [facility] Comment on above: This is a duplicate [...] or Cepheid Disclaimer revoked sooner. PERFORMED BY: [address] [address] PATHOLOGIST [employer] SE[employer] COVERER GRANT SCHNEIDER M.D. Normal [facility] Comment on above: Performed By: #### I FE,URINE #### [facility] , Calcium [Mass/volume] in Ser um or PlasmaOrdered By: Joel De La Paz on 10-19-2024 Calcium [Mass/Vol] Calcium [Mass/volume ] in Serum or Plasma 8.6-10.3 [facility] Carbon dioxide, total [Moles /volume] in Serum or PlasmaOrdered By: Joel De La Paz on 10-19-2024 CO2 [Moles/Vol] Carbon dioxide, tota l [Moles/volume] in Serum or Plasma 21.0-31.0 [facility] Cepheid COVID PCR Negativeon 10-19-2024 SARS-CoV-2 (COVID-19) RNA MICHELLE+probe Ql (Unsp spec) Negative Normal Negative [facility] Comment on above: Result Comment: This is a duplicate Cepheid Xpert Xpress CoV-2/Flu/RSV Plus RNA by RT-PCR result to be used for statistical tracking purpose only. PERFORMED BY: [facility] [address] [place] [address] PATHOLOGIST [employer] SE[employer] C[employer]ER GRANT SCHNEIDER M.D. Performed By: #### I FE,URINE #### [facility] , Chloride [Moles/volume] in S zoey or PlasmaOrdered By: Joel De La Paz on 10-19-2024 Chloride [Moles/Vol] Chloride [Moles/vol ume] in Serum or Plasma 98-107 [facility] Complete Blood Count Auto Di ffon 10-19-2024 Basophils (Bld) [#/Vol] 0.1 10*3/uL Normal 0.0-0.2 [facility] Comment on above: Result Comment: PERF ORMED BY: [facility] [address] [place] [address] PATHOLOGIST [employer] SE[employer] C[employer] GRANT SCHNEIDER M.D. Performed By: #### I FE,URINE #### [facility] , Basophils/100 WBC (Bld) 1.4 % Normal . [facility] Comment on above: Performed By: #### I FE,URINE #### [facility] , Eosinophils (Bld) [#/Vol] 0.0 10*3/uL Normal 0.0-0.45 [facility] Comment on above: Performed By: #### I FE,URINE #### [facility] , Eosinophils/100 WBC (Bld) 0.8 % Normal . [facility] Comment on above: Performed By: #### I FE,URINE #### [facility] , Erythrocyte distribution width (RBC) [Ratio] 17.6 % High 12.0-14.8 [facility] Comment on above: Performed By: #### I FE,URINE #### [facility] , Hematocrit (Bld) [Volume fraction] 28.5 % Low 38.8-50.0 [facility] Comment on above: Performed By: #### I FE,URINE #### [facility] , Hemoglobin (Bld) [Mass/Vol] 9.0 g/dL Low 13.0-17.0 [facility] Comment on above: Performed By: #### I FE,URINE #### [facility] , Lymphocytes (Bld) [#/Vol] 1.0 10*3/uL Normal 1.00-4.8 [facility] Comment on above: Performed By: #### I FE,URINE #### [facility] , Lymphocytes/100 WBC (Bld) 16.9 % Normal . [facility] Comment on above: Performed By: #### I FE,URINE #### [facility] , MCH (RBC) [Entitic mass] 23.7 pg Low 27.5-35.2 [facility] Comment on above: Performed By: #### I FE,URINE #### [facility] , MCV (RBC) [Entitic vol] 74.7 fL Low 83.5-101 [facility] Comment on above: Performed By: #### I FE,URINE #### [facility] , Mean Corpuscular HGB Conc 31.7 g/dL Low 32.5-35.6 [facility] Comment on above: Performed By: #### I FE,URINE #### [facility] , Monocytes (Bld) [#/Vol] 0.5 10*3/uL Normal 0.0-0.8 [facility] Comment on above: Performed By: #### I FE,URINE #### [facility] , Monocytes/100 WBC (Bld) 20.86 % High 0.00-20.00 [facility] Comment on above: Result Comment: For adults in ED, MDW > 20.0 may be associated with a higher risk of sepsis during the first 12 hrs of hospital admission Performed By: #### I FE,URINE #### [facility] , Monocytes/100 WBC (Bld) 8.5 % Normal . [facility] Comment on above: Performed By: #### I FE,URINE #### [facility] , Neutrophils (Bld) [#/Vol] 4.3 10*3/uL Normal 1.8-7.7 [facility] Comment on above: Performed By: #### I FE,URINE #### [facility] , Neutrophils/100 WBC (Bld) 72.4 % Normal . [facility] Comment on above: Performed By: #### I FE,URINE #### [facility] , NRBC% 0.1 /100{WBC} Normal 0-0.5 [facility] Comment on above: Performed By: #### I FE,URINE #### [facility] , Platelet mean volume (Bld) [Entitic vol] 6.8 fL Normal 6.6-10.1 [facility] Comment on above: Performed By: #### I FE,URINE #### [facility] , Platelets (Bld) [#/Vol] 292 10*3/uL Normal 150-450 [facility] Comment on above: Performed By: #### I FE,URINE #### [facility] , RBC (Bld) [#/Vol] 3.81 10*6/uL Low 3.90-5.60 [facility] Comment on above: Performed By: #### I FE,URINE #### [facility] , WBC (Bld) [#/Vol] 5.9 10*3/uL Normal 4.1-10.5 [facility] Comment on above: Performed By: #### I FE,URINE #### [facility] , Comprehensive Metabolic Pane thanh 10-19-2024 Albumin [Mass/Vol] 3.4 g/dL Low 3.5-5.7 [facility] Comment on above: Performed By: #### I FE,URINE #### [facility] , Albumin/Globulin [Mass ratio] 1.0 {ratio} Normal [facility] Comment on above: Performed By: #### I FE,URINE #### [facility] , ALP [Catalytic activity/Vol] 105 U/L High 34-104 [facility] Comment on above: Performed By: #### I FE,URINE #### [facility] , ALT [Catalytic activity/Vol] 6 U/L Low 7-52 [facility] Comment on above: Performed By: #### I FE,URINE #### [facility] , Anion gap [Moles/Vol] 8.9 mmol/L Normal 6.0-15.0 [facility] Comment on above: Performed By: #### I FE,URINE #### [facility] , AST [Catalytic activity/Vol] 12 U/L Low 13-39 [facility] Comment on above: Performed By: #### I FE,URINE #### [facility] , Bilirubin [Mass/Vol] 1.2 mg/dL High 0.3-1.0 [facility] Comment on above: Performed By: #### I FE,URINE #### [facility] , Calcium [Mass/Vol] 9.5 mg/dL Normal 8.6-10.3 [facility] Comment on above: Performed By: #### I FE,URINE #### [facility] , Chloride [Moles/Vol] 100 mmol/L Normal 98-107 [facility] Comment on above: Performed By: #### I FE,URINE #### [facility] , CO2 [Moles/Vol] 28.8 mmol/L Normal 21.0-31.0 [facility] Comment on above: Performed By: #### I FE,URINE #### [facility] , Creatinine [Mass/Vol] 2.19 mg/dL High 0.70-1.30 [facility] Comment on above: Performed By: #### I FE,URINE #### [facility] , Creatinine Clr Calc Pharmacy 33.47 Normal [facility] Comment on above: Result Comment: PERF ORMED BY: [facility] [place] [address] PATHOLOGIST [employer] SE[employer] GRANT SCHNEIDER M.D. Performed By: #### I FE,URINE #### [facility] , Estimated GFR 31.216 mL/Min Normal [facility] Comment on above: Performed By: #### I FE,URINE #### [facility] , Globulin (S) [Mass/Vol] 3.5 g/dL Normal [facility] Comment on above: Performed By: #### I FE,URINE #### [facility] , Glucose [Mass/Vol] 109 mg/dL High 70-100 [facility] Comment on above: Result Comment: [place] Glucose Reference Range is dependent on time and content of last meal. Glucose of more than 200 mg/dL in a nonstressed, ambulatory subject supports the diagnosis of Diabetes Mellitus. ADA recommended reference range Performed By: #### I FE,URINE #### [facility] , Potassium [Moles/Vol] 3.7 mmol/L Normal 3.5-5.1 [facility] Comment on above: Performed By: #### I FE,URINE #### [facility] , Protein [Mass/Vol] 6.9 g/dL Normal 6.4-8.9 [facility] Comment on above: Performed By: #### I FE,URINE #### [facility] , Sodium [Moles/Vol] 134 mmol/L Low 136-145 [facility] Comment on above: Performed By: #### I FE,URINE #### [facility] , Urea nitrogen [Mass/Vol] 23 mg/dL Normal 7-25 [facility] Comment on above: Performed By: #### I FE,URINE #### [facility] , Creatine Kinaseon 10-19-2024 CK [Catalytic activity/Vol] 34 U/L Normal 30 [facility] Comment on above: Performed By: #### I FE,URINE #### [facility] , Creatine kinase [Enzymatic a ctivity/volume] in Serum or PlasmaOrdered By: Joel De La Paz on 10-19-2024 CK [Catalytic activity/Vol] Creatine kinase [Enzymatic activity/volume] in Serum or Plasma [facility] Creatinine [Mass/volume] in Serum or PlasmaOrdered By: Joel De La Paz on 10-19-2024 Creatinine [Mass/Vol] Creatinine [Mass/v olume] in Serum or Plasma High 0.70-1.30 [facility] ECG 12 lead ECGon 10-19-2024 ECG 12 lead ECG [facility] [place] [address] Electrocardiograph Report Signed Patient: Char Alatorre MR#: [id number] 4 : 1950 Acct:[id number] Age/Sex: 73 / M ADM Date: 10/19/24 Loc: ER Room: Type: [facility] ER Attending Dr: Ordering Provider: Joel [...] Confirmed by Joel DE LA PAZ DO ([id number]) on 10/19/2024 2:39:22 PM Referred By: Electronically Signed By: Joel DE LA PAZ DO Transcribed By: MUS Signed By Joel De La Paz DO 0 10/19/24 1439 Normal [facility] Eosinophils Auto (Bld) [#/Vo l]Ordered By: Joel De La Paz on 10-19-2024 Eosinophils (Bld) [#/Vol] Automated eosinophil count 0.0-0.45 [facility] Eosinophils/100 WBC Auto (Bl d)Ordered By: Joel De La Paz on 10-19-2024 Eosinophils/100 WBC (Bld) Automated eosinophil % . [facility] Erythrocyte distribution wid th Auto (RBC) [Ratio]Ordered By: Joel De La Paz on 10-19-2024 Erythrocyte distribution width (RBC) [Ratio] Erythrocyte distribution width [Ratio] by Automated count High 12.0-14.8 [facility] Globulin Calc (S) [Mass/Vol] Ordered By: Joel De La Paz on 10-19-2024 Globulin (S) [Mass/Vol] Serum globulin measurement by calculation (mass/volume) [facility] Glucose [Mass/volume] in Ser um or PlasmaOrdered By: Joel De La Paz on 10-19-2024 Glucose [Mass/Vol] Glucose [Mass/volume ] in Serum or Plasma High 70-100 [facility] Comment on above: ADA recommended refe rence [...] by Automated count Low 38.8-50.0 [facility] Hemoglobin [Mass/volume] in BloodOrdered By: Joel De La Paz on 10-19-2024 Hemoglobin (Bld) [Mass/Vol] Hemoglobin [Mass/volume] in Blood Low 13.0-17.0 [facility] Leukocytes [#/volume] correc anna for nucleated erythrocytes in Blood by Automated counOrdered By: Joel De La Paz on 10-19-2024 WBC corrected for nucl RBC Auto (Bld) [#/Vol] Leukocytes [#/volume] corrected for nucleated erythrocytes in Blood by Automated coun 4.1-10.5 [facility] Lymphocytes Auto (Bld) [#/Vo l]Ordered By: Joel De La Paz on 10-19-2024 Lymphocytes (Bld) [#/Vol] Lymphocytes [#/volume] in Blood by Automated count 1.00-4.8 [facility] Lymphocytes/100 WBC Auto (Bl d)Ordered By: Joel De La Paz on 10-19-2024 Lymphocytes/100 WBC (Bld) Lymphocytes/100 leukocytes in Blood by Automated count . [facility] MCH Auto (RBC) [Entitic mass ]Ordered By: Joel De La Paz on 10-19-2024 MCH (RBC) [Entitic mass] MCH [Entitic mass] by Automated count Low 27.5-35.2 [facility] MCHC Auto (RBC) [Mass/Vol]Or dered By: Joel De La Paz on 10-19-2024 MCHC (RBC) [Mass/Vol] MCHC [Mass/volume] by Automated count Low 32.5-35.6 [facility] MCV Auto (RBC) [Entitic vol] Ordered By: Joel De La Paz on 10-19-2024 MCV (RBC) [Entitic vol] MCV [Entitic volume] by Automated count Low 83.5-101 [facility] Monocyte distribution width [Entitic volume] in Blood by AutomatedOrdered By: Joel De La Paz on 10-19-2024 Monocyte distribution width Auto (Bld) [Entitic vol] Monocyte distribution width [Entitic volume] in Blood by Automated High 0.00-20.00 [facility] Comment on above: For adults in ED, MD W > 20.0 may be associated with a higher risk of sepsis during the first 12 hrs of hospital admission Monocytes Auto (Bld) [#/Vol] Ordered By: Joel De La Paz on 10-19-2024 Monocytes (Bld) [#/Vol] Automated blood monocyte count 0.0-0.8 [facility] Monocytes/100 WBC Auto (Bld) Ordered By: Joel De La Paz on 10-19-2024 Monocytes/100 WBC (Bld) Automated monocyte % . [facility] Natriuretic peptide B [Mass/ Vol]Ordered By: Joel De La Paz on 10-19-2024 Natriuretic peptide B (Bld) [Mass/Vol] BNP ser/plas High 5-100 [facility] Neutrophils Auto (Bld) [#/Vo l]Ordered By: Joel De La Paz on 10-19-2024 Neutrophils (Bld) [#/Vol] Neutrophils [#/volume] in Blood by Automated count 1.8-7.7 [facility] Neutrophils/100 WBC Auto (Bl d)Ordered By: Joel De La Paz on 10-19-2024 Neutrophils/100 WBC (Bld) Automated neutrophil % . [facility] No Panel InformationOrdered By: Joel De La Paz on 10-19-2024 Estimated GFR (CKD-EPI) 31.216 mL/Min [facility] Pharmacy Creatinine Clearance (Chem 33.47 [facility] Nucleated erythrocytes [Pres ence] in Blood by Automated countOrdered By: Joel De La Paz on 10-19-2024 Nucleated RBC Auto Ql (Bld) Nucleated erythrocytes [Presence] in Blood by Automated count 0-0.5 [facility] Platelet mean volume Auto (B ld) [Entitic vol]Ordered By: Joel De La Paz on 10-19-2024 Platelet mean volume (Bld) [Entitic vol] Platelet mean volume [Entitic volume] in Blood by Automated count 6.6-10.1 [facility] Platelets Auto (Bld) [#/Vol] Ordered By: Joel De La Paz on 10-19-2024 Platelets (Bld) [#/Vol] Platelets [#/volume] in Blood by Automated count 150-450 [facility] Potassium [Moles/volume] in Serum or PlasmaOrdered By: Joel De La Paz on 10-19-2024 Potassium [Moles/Vol] Potassium [Moles/v olume] in Serum or Plasma 3.5-5.1 [facility] Protein [Mass/volume] in Ser um or PlasmaOrdered By: Joel De La Paz on 10-19-2024 Protein [Mass/Vol] Protein [Mass/volume ] in Serum or Plasma 6.4-8.9 [facility] RBC Auto (Bld) [#/Vol]Ordere d By: Joel De La Paz on 10-19-2024 RBC (Bld) [#/Vol] Erythrocytes [#/volu me] in Blood by Automated count Low 3.90-5.60 [facility] Respiratory specimen influen za A virus, influenza B virus, respiratory syncytical virOrdered By: Joel De La Paz on 10-19-2024 SARS-CoV-2 (COVID-19) RNA MICHELLE+probe Ql (Unsp spec) Respiratory specimen influenza A virus, influenza B virus, respiratory syncytical vir [facility] Serum or plasma albumin/glob ulin mass ratioOrdered By: Joel De La Paz on 10-19-2024 Albumin/Globulin [Mass ratio] Serum or plasma albumin/globulin mass ratio [facility] Serum or plasma anion gap de terminationOrdered By: Joel De La Paz on 10-19-2024 Anion gap [Moles/Vol] Serum or plasma an ion gap determination 6.0-15.0 [facility] Sodium [Moles/volume] in Ser um or PlasmaOrdered By: Joel De La Paz on 10-19-2024 Sodium [Moles/Vol] Sodium [Moles/volume ] in Serum or Plasma Low 136-145 [facility] Troponin I High Sensitivityo n 10-19-2024 Troponin I High Sensitivity 39.8 pg/mL High 0.0-20.0 [facility] Comment on above: Result Comment: PERF ORMED BY: [address] [address] PATHOLOGIST [employer] GRANT SCHNEIDER M.D. Performed By: #### I FE,URINE #### [facility] , Troponin I.cardiac [Mass/vol ume] in Serum or Plasma by Detection limit <= 0.01 ng/Ordered By: Joel De La Paz on 10-19-2024 Troponin I.cardiac DL <= 0.01 ng/mL [Mass/Vol] Troponin I.cardiac [Mass/volume] in Serum or Plasma by Detection limit <= 0.01 ng/ High 0.0-20.0 [facility] Urea nitrogen [Mass/volume] in Serum or PlasmaOrdered By: Joel De La Paz on 10-19-2024 Urea nitrogen [Mass/Vol] Urea nitrogen [Mass/volume] in Serum or Plasma 7-25 [facility] WBC Auto (Bld) [#/Vol]Ordere d By: Joel De La Paz on 10-19-2024 WBC (Bld) [#/Vol] Leukocytes [#/volume ] in Blood by Automated count 4.1-10.5 [facility] X-ray reportOrdered By: Char Larios on 10-19-2024 Study report [facility] Main [address] [address] XRay Report Signed Patient: Char Alatorre MR#: [id number] : 1950 Acct:[id number] Age/Sex: 73 / M ADM Date: 5 Loc: ER Room: Type: [facility] ER Attending Dr: Copies to: Joel [...] Char Larios M.D.10/19/2024 1:26 PM Dictation Location: [facility]-17 Transcribed By: LUCI 10/19/24 1326 Dictated By: Char Larios II, MD 10/19/241324 Signed By: 10/19/24 1326 [facility] Work Phone: XR chest 2V*on 10-19-2024 XR chest 2V* [facility] [place] [address] XRay Report Signed Patient: Char Alatorre MR#: [id number] 4 : 1950 Acct:[id number] Age/Sex: 73 / M ADM Date: 10/19/24 Loc: ER Room: Type: [facility] ER Attending Dr: Copies to: Joel [...] Char Larios M.D.10/19/2024 1:26 PM Dictation Location: [facility]--17 Transcribed By: LUCI 10/19/24 132 Dictated By: Char Larios II, MD 10/19/241324 Signed By: 10/19/24 132 Normal [facility] Alanine aminotransferase [En zymatic activity/volume] in Serum or PlasmaOrdered By: Arturo Le on 10-09-2024 ALT [Catalytic activity/Vol] Alanine aminotransferase [Enzymatic activity/volume] in Serum or Plasma Low 7-52 [facility] Albumin [Mass/volume] in Ser um or Plasma by Bromocresol green (BCG) dye binding methoOrdered By: Arturo Le on 10-09-2024 Albumin BCG dye [Mass/Vol] Albumin [Mass/volume] in Serum or Plasma by Bromocresol green (BCG) dye binding metho Low 3.5-5.7 [facility] Alkaline phosphatase [Enzyma tic activity/volume] in Serum or PlasmaOrdered By: Arturo Le on 10-09-2024 ALP [Catalytic activity/Vol] Alkaline phosphatase [Enzymatic activity/volume] in Serum or Plasma High 34-104 [facility] Aspartate aminotransferase [ Enzymatic activity/volume] in Serum or PlasmaOrdered By: Arturo Le on 10-09-2024 AST [Catalytic activity/Vol] Aspartate aminotransferase [Enzymatic activity/volume] in Serum or Plasma Low 13-39 [facility] Basic Metabolic Panelon 09-16 Anion gap [Moles/Vol] 10.4 mmol/L Normal 6.0-15.0 [facility] Comment on above: Performed By: #### L ACTIC, HEPATIC, BMP, CBC #### [facility] [address] [place] [address] Calcium [Mass/Vol] 9.9 mg/dL Normal 8.6-10.3 [facility] Comment on above: Performed By: #### L ACTIC, HEPATIC, BMP, CBC #### [address] Chloride [Moles/Vol] 101 mmol/L Normal 98-107 [facility] Comment on above: Performed By: #### L ACTIC, HEPATIC, BMP, CBC #### [address] CO2 [Moles/Vol] 27.4 mmol/L Normal 21.0-31.0 [facility] Comment on above: Performed By: #### L ACTIC, HEPATIC, BMP, CBC #### [address] Creatinine [Mass/Vol] 1.98 mg/dL High 0.70-1.30 [facility] Comment on above: Performed By: #### L ACTIC, HEPATIC, BMP, CBC #### [address] Creatinine Clr Calc Pharmacy 37.01 Normal [facility] Comment on above: Result Comment: PERF ORMED BY: [place] [address] PATHOLOGIST [employer] GRANT SCHNEIDER M.D. Performed By: #### L ACTIC, HEPATIC, BMP, CBC #### [address] Estimated GFR 35.229 mL/Min Normal [facility] Comment on above: Performed By: #### L ACTIC, HEPATIC, BMP, CBC #### [address] Glucose [Mass/Vol] 134 mg/dL High 70-100 [facility] Comment on above: Result Comment: [place] Glucose Reference Range is dependent on time and content of last meal. Glucose of more than 200 mg/dL in a nonstressed, ambulatory subject supports the diagnosis of Diabetes Mellitus. ADA recommended reference range Performed By: #### L ACTIC, HEPATIC, BMP, CBC #### [facility] [address] Potassium [Moles/Vol] 3.8 mmol/L Normal 3.5-5.1 [facility] Comment on above: Performed By: #### L ACTIC, HEPATIC, BMP, CBC #### [facility] [address] Sodium [Moles/Vol] 135 mmol/L Low 136-145 [facility] Comment on above: Performed By: #### L ACTIC, HEPATIC, BMP, CBC #### [facility] [address] Urea nitrogen [Mass/Vol] 23 mg/dL Normal 7-25 [facility] Comment on above: Performed By: #### L ACTIC, HEPATIC, BMP, CBC #### [facility] [address] [place] [address] Basophils Auto (Bld) [#/Vol] Ordered By: Arturo Le on 10-09-2024 Basophils (Bld) [#/Vol] Automated basophil count 0.0-0.2 [facility] Basophils/100 WBC Auto (Bld) Ordered By: Arturo Le on 10-09-2024 Basophils/100 WBC (Bld) Automated basophil % . [facility] Bilirubin.direct [Mass/volum e] in Serum or PlasmaOrdered By: Arturo Le on 10-09-2024 Bilirubin.direct [Mass/Vol] Bilirubin.direct [Mass/volume] in Serum or Plasma High 0.03-0.18 [facility] Bilirubin.total [Mass/volume ] in Serum or PlasmaOrdered By: Arturo Le on 10-09-2024 Bilirubin [Mass/Vol] Bilirubin.total [Mass/volume] in Serum or Plasma 0.3-1.0 [facility] CT angio abdomen pelvison CT angio abdomen pelvis [facility] [place] [address] CT Scan Report Signed with Meganenda Patient: Char Alatorre MR#: [id number] 4 : 1950 Acct:[id number] Age/Sex: 73 / M ADM Date: 10/09/24 Loc: ER Room: Type: [facility] ER Attending Dr: Copies to: Arturo [...] dictat (more content not included)... Normal [facility] Calcium [Mass/volume] in Ser um or PlasmaOrdered By: Arturo Le on 10-09-2024 Calcium [Mass/Vol] Calcium [Mass/volume ] in Serum or Plasma 8.6-10.3 [facility] Carbon dioxide, total [Moles /volume] in Serum or PlasmaOrdered By: Arturo Le on 10-09-2024 CO2 [Moles/Vol] Carbon dioxide, tota l [Moles/volume] in Serum or Plasma 21.0-31.0 [facility] Chloride [Moles/volume] in S zoey or PlasmaOrdered By: Arturo Le on 10-09-2024 Chloride [Moles/Vol] Chloride [Moles/vol ume] in Serum or Plasma 98-107 [facility] Complete Blood Count Auto Di ffon 10-09-2024 Basophils (Bld) [#/Vol] 0.1 10*3/uL Normal 0.0-0.2 [facility] Comment on above: Result Comment: PERF ORMED BY: [place] [address] PATHOLOGIST [employer] GRANT SCHNEIDER M.D. Performed By: #### L ACTIC, HEPATIC, BMP, CBC #### [address] Basophils/100 WBC (Bld) 3.1 % Normal . [facility] Comment on above: Performed By: #### L ACTIC, HEPATIC, BMP, CBC #### [address] Eosinophils (Bld) [#/Vol] 0.0 10*3/uL Normal 0.0-0.45 [facility] Comment on above: Performed By: #### L ACTIC, HEPATIC, BMP, CBC #### [address] Eosinophils/100 WBC (Bld) 0.4 % Normal . [facility] Comment on above: Performed By: #### L ACTIC, HEPATIC, BMP, CBC #### [address] Erythrocyte distribution width (RBC) [Ratio] 17.6 % High 12.0-14.8 [facility] Comment on above: Performed By: #### L ACTIC, HEPATIC, BMP, CBC #### [address] Hematocrit (Bld) [Volume fraction] 27.9 % Low 38.8-50.0 [facility] Comment on above: Performed By: #### L ACTIC, HEPATIC, BMP, CBC #### [address] Hemoglobin (Bld) [Mass/Vol] 8.9 g/dL Low 13.0-17.0 [facility] Comment on above: Performed By: #### L ACTIC, HEPATIC, BMP, CBC #### [address] Lymphocytes (Bld) [#/Vol] 0.7 10*3/uL Low 1.00-4.8 [facility] Comment on above: Performed By: #### L ACTIC, HEPATIC, BMP, CBC #### [address] Lymphocytes/100 WBC (Bld) 14.8 % Normal . [facility] Comment on above: Performed By: #### L ACTIC, HEPATIC, BMP, CBC #### [address] MCH (RBC) [Entitic mass] 23.7 pg Low 27.5-35.2 [facility] Comment on above: Performed By: #### L ACTIC, HEPATIC, BMP, CBC #### [address] MCV (RBC) [Entitic vol] 74.4 fL Low 83.5-101 [facility] Comment on above: Performed By: #### L ACTIC, HEPATIC, BMP, CBC #### [address] Mean Corpuscular HGB Conc 31.8 g/dL Low 32.5-35.6 [facility] Comment on above: Performed By: #### L ACTIC, HEPATIC, BMP, CBC #### [address] Monocytes (Bld) [#/Vol] 0.3 10*3/uL Normal 0.0-0.8 [facility] Comment on above: Performed By: #### L ACTIC, HEPATIC, BMP, CBC #### [place] [address] [place] Monocytes/100 WBC (Bld) 23.60 % High 0.00-20.00 [facility] Comment on above: Result Comment: For adults in ED, MDW > 20.0 may be associated with a higher risk of sepsis during the first 12 hrs of hospital admission Performed By: #### L ACTIC, HEPATIC, BMP, CBC #### [place] [address] [place] Monocytes/100 WBC (Bld) 7.1 % Normal . [facility] Comment on above: Performed By: #### L ACTIC, HEPATIC, BMP, CBC #### [address] Neutrophils (Bld) [#/Vol] 3.5 10*3/uL Normal 1.8-7.7 [facility] Comment on above: Performed By: #### L ACTIC, HEPATIC, BMP, CBC #### [place] [address] [place] Neutrophils/100 WBC (Bld) 74.6 % Normal . [facility] Comment on above: Performed By: #### L ACTIC, HEPATIC, BMP, CBC #### [place] [address] [place] NRBC% 0.0 /100{WBC} Normal 0-0.5 [facility] Comment on above: Performed By: #### L ACTIC, HEPATIC, BMP, CBC #### [address] Platelet mean volume (Bld) [Entitic vol] 6.6 fL Normal 6.6-10.1 [facility] Comment on above: Performed By: #### L ACTIC, HEPATIC, BMP, CBC #### [place] [address] [place] Platelets (Bld) [#/Vol] 239 10*3/uL Normal 150-450 [facility] Comment on above: Performed By: #### L ACTIC, HEPATIC, BMP, CBC #### [facility] [address] RBC (Bld) [#/Vol] 3.75 10*6/uL Low 3.90-5.60 [facility] Comment on above: Performed By: #### L ACTIC, HEPATIC, BMP, CBC #### [facility] [address] WBC (Bld) [#/Vol] 4.7 10*3/uL Normal 4.1-10.5 [facility] Comment on above: Performed By: #### L ACTIC, HEPATIC, BMP, CBC #### [facility] [address] Creatinine (Bld) [Mass/Vol]O rdered By: Arturo Le on 10-09-2024 Creatinine [Mass/Vol] Whole blood creati nine measurement High 0.6-1.3 [facility] Comment on above: ER/ESD physician is notified/shown all ISTAT results.Critical values may be confirmed by laboratory testing ifdeemed necessary by ER attending doctor. Creatinine [Mass/volume] in Serum or PlasmaOrdered By: Arturo Le on 10-09-2024 Creatinine [Mass/Vol] Creatinine [Mass/v olume] in Serum or Plasma High 0.70-1.30 [facility] ECG 12 lead ECGon 10-09-2024 ECG 12 lead ECG [facility] Main [place] [address] [place] [address] Electrocardiograph Report Signed Patient: Char Alatorre MR#: [id number] 4 : 1950 Acct:[id number] Age/Sex: 73 / M ADM Date: 10/09/24 Loc: ER Room: Type: [facility] ER Attending Dr: Ordering Provider: [...] By Arturo Le MD 09/16 Normal [facility] Eosinophils Auto (Bld) [#/Vo l]Ordered By: Arturo Le on 10-09-2024 Eosinophils (Bld) [#/Vol] Automated eosinophil count 0.0-0.45 [facility] Eosinophils/100 WBC Auto (Bl d)Ordered By: Arturo Le on 10-09-2024 Eosinophils/100 WBC (Bld) Automated eosinophil % . [facility] Erythrocyte distribution wid th Auto (RBC) [Ratio]Ordered By: Arturo Le on 10-09-2024 Erythrocyte distribution width (RBC) [Ratio] Erythrocyte distribution width [Ratio] by Automated count High 12.0-14.8 [facility] Globulin Calc (S) [Mass/Vol] Ordered By: Arturo Le on 10-09-2024 Globulin (S) [Mass/Vol] Serum globulin measurement by calculation (mass/volume) [facility] Glucose [Mass/volume] in Ser um or PlasmaOrdered By: Arturo Le on 10-09-2024 Glucose [Mass/Vol] Glucose [Mass/volume ] in Serum or Plasma High 70-100 [facility] Comment on above: ADA recommended refe rence [...] by Automated count Low 38.8-50.0 [facility] Hemoglobin [Mass/volume] in BloodOrdered By: Arturo Le on 10-09-2024 Hemoglobin (Bld) [Mass/Vol] Hemoglobin [Mass/volume] in Blood Low 13.0-17.0 [facility] Hepatic Panelon 10-09-2024 Albumin [Mass/Vol] 3.3 g/dL Low 3.5-5.7 [facility] Comment on above: Performed By: #### L ACTIC, HEPATIC, BMP, CBC #### [address] Albumin/Globulin [Mass ratio] 0.9 {ratio} Normal [facility] Comment on above: Performed By: #### L ACTIC, HEPATIC, BMP, CBC #### [facility] [address] ALP [Catalytic activity/Vol] 109 U/L High 34-104 [facility] Comment on above: Performed By: #### L ACTIC, HEPATIC, BMP, CBC #### [address] ALT [Catalytic activity/Vol] 6 U/L Low 7-52 [facility] Comment on above: Performed By: #### L ACTIC, HEPATIC, BMP, CBC #### [address] AST [Catalytic activity/Vol] 10 U/L Low 13-39 [facility] Comment on above: Performed By: #### L ACTIC, HEPATIC, BMP, CBC #### [address] Bilirubin [Mass/Vol] 0.9 mg/dL Normal 0.3-1.0 [facility] Comment on above: Performed By: #### L ACTIC, HEPATIC, BMP, CBC #### [address] Bilirubin,Indirect 0.7 mg/dL Normal [facility] Comment on above: Performed By: #### L ACTIC, HEPATIC, BMP, CBC #### [address] Bilirubin.indirect [Mass/Vol] 0.20 mg/dL High 0.03-0.18 [facility] Comment on above: Performed By: #### L ACTIC, HEPATIC, BMP, CBC #### [address] Globulin (S) [Mass/Vol] 3.6 g/dL Normal [facility] Comment on above: Performed By: #### L ACTIC, HEPATIC, BMP, CBC #### [address] Protein [Mass/Vol] 6.9 g/dL Normal 6.4-8.9 [facility] Comment on above: Performed By: #### L ACTIC, HEPATIC, BMP, CBC #### [address] ISTAT XRay CREon 10-09-2024 Creatinine [Mass/Vol] 2.1 mg/dL High 0.6-1.3 [facility] Comment on above: Result Comment: ER/E [place] physician is notified/shown all ISTAT results. Critical values may be confirmed by laboratory testing if deemed necessary by ER attending doctor. Performed By: #### A DDONUAPLUS #### [address] ISTAT GFR 32.828 Normal [facility] Comment on above: Result Comment: PERF ORMED BY: [place] [address] PATHOLOGIST SLIP SEAT COVERER GRANT SCHNEIDER M.D. Performed By: #### A DDONUAPLUS #### [address] Lactate [Moles/volume] in Se rum or PlasmaOrdered By: Arturo Le on 10-09-2024 Lactate [Moles/Vol] Lactate [Moles/volum e] in Serum or Plasma 0.5-2.2 [facility] [place] Lactic Acidon 10-09-2024 Lactate [Moles/Vol] 1.2 mmol/L Normal 0.5-2.2 [facility] Comment on above: Result Comment: PERF ORMED BY: [place] [address] PATHOLOGIST SLIP SEAT COVERER GRANT SCHNEIDER M.D. Performed By: #### L ACTIC, HEPATIC, BMP, CBC #### [facility] [address] [id number] [facility] Leukocytes [#/volume] correc anna for nucleated erythrocytes in Blood by Automated counOrdered By: Arturo Le on 10-09-2024 WBC corrected for nucl RBC Auto (Bld) [#/Vol] Leukocytes [#/volume] corrected for nucleated erythrocytes in Blood by Automated coun 4.1-10.5 [facility] [place] Lymphocytes Auto (Bld) [#/Vo l]Ordered By: Arturo Le on 10-09-2024 Lymphocytes (Bld) [#/Vol] Lymphocytes [#/volume] in Blood by Automated count Low 1.00-4.8 [facility] [place] Lymphocytes/100 WBC Auto (Bl d)Ordered By: Arturo Le on 10-09-2024 Lymphocytes/100 WBC (Bld) Lymphocytes/100 leukocytes in Blood by Automated count . [facility] MCH Auto (RBC) [Entitic mass ]Ordered By: Arturo Le on 10-09-2024 MCH (RBC) [Entitic mass] MCH [Entitic mass] by Automated count Low 27.5-35.2 [facility] MCHC Auto (RBC) [Mass/Vol]Or dered By: Arturo Le on 10-09-2024 MCHC (RBC) [Mass/Vol] MCHC [Mass/volume] by Automated count Low 32.5-35.6 [facility] MCV Auto (RBC) [Entitic vol] Ordered By: Arturo Le on 10-09-2024 MCV (RBC) [Entitic vol] MCV [Entitic volume] by Automated count Low 83.5-101 [facility] Monocyte distribution width [Entitic volume] in Blood by AutomatedOrdered By: Arturo Le on 10-09-2024 Monocyte distribution width Auto (Bld) [Entitic vol] Monocyte distribution width [Entitic volume] in Blood by Automated High 0.00-20.00 [facility] Comment on above: For adults in ED, MD W > 20.0 may be associated with a higher risk of sepsis during the first 12 hrs of hospital admission Monocytes Auto (Bld) [#/Vol] Ordered By: Arturo Le on 10-09-2024 Monocytes (Bld) [#/Vol] Automated blood monocyte count 0.0-0.8 [facility] [place] Monocytes/100 WBC Auto (Bld) Ordered By: Arturo Le on 10-09-2024 Monocytes/100 WBC (Bld) Automated monocyte % . [facility] Neutrophils Auto (Bld) [#/Vo l]Ordered By: Arturo Le on 10-09-2024 Neutrophils (Bld) [#/Vol] Neutrophils [#/volume] in Blood by Automated count 1.8-7.7 [facility] Neutrophils/100 WBC Auto (Bl d)Ordered By: Arturo Le on 10-09-2024 Neutrophils/100 WBC (Bld) Automated neutrophil % . [facility] No Panel InformationOrdered By: Arturo Le on 10-09-2024 Bedside Estimated GFR (eGFR) 32.828 [facility] Estimated GFR (CKD-EPI) 35.229 mL/Min [facility] Pharmacy Creatinine Clearance (Chem 37.01 [facility] Nucleated erythrocytes [Pres ence] in Blood by Automated countOrdered By: Arturo Le on 10-09-2024 Nucleated RBC Auto Ql (Bld) Nucleated erythrocytes [Presence] in Blood by Automated count 0-0.5 [facility] Platelet mean volume Auto (B ld) [Entitic vol]Ordered By: Arturo Le on 10-09-2024 Platelet mean volume (Bld) [Entitic vol] Platelet mean volume [Entitic volume] in Blood by Automated count 6.6-10.1 [facility] [place] Platelets Auto (Bld) [#/Vol] Ordered By: Arturo Le on 10-09-2024 Platelets (Bld) [#/Vol] Platelets [#/volume] in Blood by Automated count 150-450 [facility] [place] Potassium [Moles/volume] in Serum or PlasmaOrdered By: Arturo Le on 10-09-2024 Potassium [Moles/Vol] Potassium [Moles/v olume] in Serum or Plasma 3.5-5.1 [facility] [place] Protein [Mass/volume] in Ser um or PlasmaOrdered By: Arturo Le on 10-09-2024 Protein [Mass/Vol] Protein [Mass/volume ] in Serum or Plasma 6.4-8.9 [facility] [place] RBC Auto (Bld) [#/Vol]Ordere d By: Arturo Le on 10-09-2024 RBC (Bld) [#/Vol] Erythrocytes [#/volu me] in Blood by Automated count Low 3.90-5.60 [facility] [place] Serum or plasma albumin/glob ulin mass ratioOrdered By: Arturo Le on 10-09-2024 Albumin/Globulin [Mass ratio] Serum or plasma albumin/globulin mass ratio [facility] Serum or plasma anion gap de terminationOrdered By: Arturo Le on 10-09-2024 Anion gap [Moles/Vol] Serum or plasma an ion gap determination 6.0-15.0 [facility] [place] Serum or plasma non-glucuron idated bilirubin measurement (mass/volume)Ordered By: Arturo Le on 10-09-2024 Bilirubin.indirect [Mass/Vol] Serum or plasma non-glucuronidated bilirubin measurement (mass/volume) [facility] Sodium [Moles/volume] in Ser um or PlasmaOrdered By: Arturo Le on 10-09-2024 Sodium [Moles/Vol] Sodium [Moles/volume ] in Serum or Plasma Low 136-145 [facility] [place] Stool Occult Blood (Guaiac)o n 10-09-2024 Stool Occult Blood (Guaiac) Occult Blood Negative for Occult Blood by Guaiac Methodology -- Reference range = Negative PERFORMED BY: [place] [address] PATHOLOGIST SLIP SEAT COVERER GRANT SCHNEIDER M.D. Normal [facility] Comment on above: Performed By: #### A DDONUAPLUS #### [address] Stool gastrointestinal hemog lobin detectionOrdered By: Arturo Le on 10-09-2024 Hemoglobin.gastrointes tinal Ql (Stl) Stool gastrointestinal hemoglobin detection [facility] [place] Urea nitrogen [Mass/volume] in Serum or PlasmaOrdered By: Arturo Le on 10-09-2024 Urea nitrogen [Mass/Vol] Urea nitrogen [Mass/volume] in Serum or Plasma 05-09 [facility] [place] WBC Auto (Bld) [#/Vol]Ordere d By: Arturo Le on 10-09-2024 WBC (Bld) [#/Vol] Leukocytes [#/volume ] in Blood by Automated count 4.1-10.5 [facility] [place] Albumin [Mass/volume] in Ser um or Plasma by Bromocresol green (BCG) dye binding methoOrdered By: Magy Cummings on 09-03-2024 Albumin BCG dye [Mass/Vol] Albumin [Mass/volume] in Serum or Plasma by Bromocresol green (BCG) dye binding metho 3.5-5.7 [facility] [place] Appearance of UrineOrdered B y: Magy Cummings on 09-03-2024 Appearance (U) Urine appearance Clear [facility] Bacteria [Presence] in Urine by AutomatedOrdered By: Magy Cummings on 09-03-2024 Bacteria Auto Ql (U) Bacteria [Presence] in Urine by Automated None Seen [facility] Basophils Auto (Bld) [#/Vol] Ordered By: Magy Cummings on 09-03-2024 Basophils (Bld) [#/Vol] Automated basophil count 0.0-0.2 [facility] Basophils/100 WBC Auto (Bld) Ordered By: Magy Cummings on 09-03-2024 Basophils/100 WBC (Bld) Automated basophil % . [facility] Bilirubin Test strip Ql (U)O rdered By: Magy Cummings on 09-03-2024 Bilirubin Ql (U) Bilirubin.total [Pre sence] in Urine by Test strip Negative [facility] Calcium [Mass/volume] in Ser um or PlasmaOrdered By: Magy Cummings on 09-03-2024 Calcium [Mass/Vol] Calcium [Mass/volume ] in Serum or Plasma 8.6-10.3 [facility] Carbon dioxide, total [Moles /volume] in Serum or PlasmaOrdered By: Magy Cummings on 09-03-2024 CO2 [Moles/Vol] Carbon dioxide, tota l [Moles/volume] in Serum or Plasma High 21.0-31.0 [facility] Chloride [Moles/volume] in S zoey or PlasmaOrdered By: Magy Cummings on 09-03-2024 Chloride [Moles/Vol] Chloride [Moles/vol ume] in Serum or Plasma 98-107 [facility] Color Auto (U)Ordered By: Ab tiarra Cummings on 09-03-2024 Color (U) Color of Urine by Auto Yellow Fi [facility] Complete Blood Count Auto Di ffon 09-03-2024 Basophils (Bld) [#/Vol] 0.1 10*3/uL Normal 0.0-0.2 [facility] Comment on above: Result Comment: PERF ORMED BY: [place] [address] PATHOLOGIST SLIP SEAT COVERER GRANT SCHNEIDER M.D. Performed By: #### A DDONUAPLUS #### [address] Basophils/100 WBC (Bld) 1.0 % Normal . [facility] Comment on above: Performed By: #### A DDONUAPLUS #### [address] Eosinophils (Bld) [#/Vol] 0.1 10*3/uL Normal 0.0-0.45 [facility] Comment on above: Performed By: #### A DDONUAPLUS #### [address] Eosinophils/100 WBC (Bld) 1.4 % Normal . [facility] Comment on above: Performed By: #### A DDONUAPLUS #### [address] Erythrocyte distribution width (RBC) [Ratio] 16.4 % High 12.0-14.8 [facility] Comment on above: Performed By: #### A DDONUAPLUS #### [address] Hematocrit (Bld) [Volume fraction] 32.0 % Low 38.8-50.0 [facility] Comment on above: Performed By: #### A DDONUAPLUS #### [address] [place] [address] [place] Hemoglobin (Bld) [Mass/Vol] 10.3 g/dL Low 13.0-17.0 [facility] Comment on above: Performed By: #### A DDONUAPLUS #### [address] Lymphocytes (Bld) [#/Vol] 1.3 10*3/uL Normal 1.00-4.8 [facility] Comment on above: Performed By: #### A DDONUAPLUS #### [address] Lymphocytes/100 WBC (Bld) 24.7 % Normal . [facility] Comment on above: Performed By: #### A DDONUAPLUS #### [address] MCH (RBC) [Entitic mass] 24.3 pg Low 27.5-35.2 [facility] Comment on above: Performed By: #### A DDONUAPLUS #### [address] MCV (RBC) [Entitic vol] 75.6 fL Low 83.5-101 [facility] Comment on above: Performed By: #### A DDONUAPLUS #### [address] Mean Corpuscular HGB Conc 32.1 g/dL Low 32.5-35.6 [facility] Comment on above: Performed By: #### A DDONUAPLUS #### [place] [address] [place] Monocytes (Bld) [#/Vol] 0.7 10*3/uL Normal 0.0-0.8 [facility] Comment on above: Performed By: #### A DDONUAPLUS #### [place] [address] [place] Monocytes/100 WBC (Bld) 14.1 % Normal . [facility] Comment on above: Performed By: #### A DDONUAPLUS #### [address] Neutrophils (Bld) [#/Vol] 3.0 10*3/uL Normal 1.8-7.7 [facility] Comment on above: Performed By: #### A DDONUAPLUS #### [place] [address] [place] Neutrophils/100 WBC (Bld) 58.8 % Normal . [facility] Comment on above: Performed By: #### A DDONUAPLUS #### [address] NRBC% 0.2 /100{WBC} Normal 0-0.5 [facility] Comment on above: Performed By: #### A DDONUAPLUS #### [address] Platelet mean volume (Bld) [Entitic vol] 6.6 fL Normal 6.6-10.1 [facility] Comment on above: Performed By: #### A DDONUAPLUS #### [place] [address] [place] Platelets (Bld) [#/Vol] 218 10*3/uL Normal 150-450 [facility] Comment on above: Performed By: #### A DDONUAPLUS #### [place] [address] [place] RBC (Bld) [#/Vol] 4.23 10*6/uL Normal 3.90-5.60 [facility] Comment on above: Performed By: #### A DDONUAPLUS #### [place] [address] [place] WBC (Bld) [#/Vol] 5.1 10*3/uL Normal 4.1-10.5 [facility] Comment on above: Performed By: #### A DDONUAPLUS #### [place] [address] [place] Creatinine [Mass/volume] in Serum or PlasmaOrdered By: Magy Cummings on 09-03-2024 Creatinine [Mass/Vol] Creatinine [Mass/v olume] in Serum or Plasma High 0.70-1.30 [facility] Creatinine [Mass/volume] in UrineOrdered By: Magy Cummings on 09-03-2024 Creatinine (U) [Mass/Vol] Creatinine [Mass/volume] in Urine [facility] Comment on above: No reference range e stablished Dipstick and Microscopicon 1 11-03-2023 Appearance (U) Clear Normal Clear [facility] Comment on above: Order Comment: Reaso n for Exam Chronic kidney disease, stage 3 unspecified;Kade hy kid w cr Name Collection Type:: Clean-Voided Midstream Performed By: #### A DDONUAPLUS #### [place] [address] [place] Bacteria,Urine Rare Normal None Seen [facility] Comment on above: Order Comment: Reaso n for Exam Chronic kidney disease, stage 3 unspecified;Kade hy kid w cr Name Collection Type:: Clean-Voided Midstream Performed By: #### A DDONUAPLUS #### [place] [address] [place] Bilirubin,Urine Negative Normal Negative [facility] Comment on above: Order Comment: Reaso n for Exam Chronic kidney disease, stage 3 unspecified;Kade bella tilley w cr Name Collection Type:: Clean-Voided Midstream Performed By: #### A DDONUAPLUS #### [place] [address] [place] Color (U) Light-Yellow Normal Yellow [facility] Comment on above: Order Comment: Reaso n for Exam Chronic kidney disease, stage 3 unspecified;Kade hy kid w cr Name Collection Type:: Clean-Voided Midstream Performed By: #### A DDONUAPLUS #### [place] [address] [place] Glucose Ql (U) >= High Normal [facility] Comment on above: Order Comment: Reaso n for Exam Chronic kidney disease, stage 3 unspecified;Kade hy kid w cr Name Collection Type:: Clean-Voided Midstream Performed By: #### A DDONUAPLUS #### [facility] [address] [place] [address] [place] Hyaline Casts,Urine 0 [LPF] Normal 0-8 [facility] Comment on above: Order Comment: Reaso n for Exam Chronic kidney disease, stage 3 unspecified;Kade hy jarek w cr Name Collection Type:: Clean-Voided Midstream Performed By: #### A DDONUAPLUS #### [facility] [address] [place] [address] [place] Ketones Ql (U) Negative Normal Negative [facility] Comment on above: Order Comment: Reaso n for Exam Chronic kidney disease, stage 3 unspecified;Kade hy jarek w cr Name Collection Type:: Clean-Voided Midstream Performed By: #### A DDONUAPLUS #### [place] [address] [place] Leukocyte esterase Test strip Ql (U) Negative Normal Negative [facility] Comment on above: Order Comment: Reaso n for Exam Chronic kidney disease, stage 3 unspecified;Kade bella tilley w cr Name Collection Type:: Clean-Voided Midstream Performed By: #### A DDONUAPLUS #### [address] [id number] [place] Mucus,Urine Rare Normal [facility] Comment on above: Order Comment: Reaso n for Exam Chronic kidney disease, stage 3 unspecified;Kade bella tilley w cr Name Collection Type:: Clean-Voided Midstream Result Comment: PERF ORMED BY: [place] [address] PATHOLOGIST [employer]IP SEAT C[employer] GRANT SCHNEIDER M.D. Performed By: #### A DDONUAPLUS #### [address] [id number] [place] Nitrite,Urine Negative Normal Negative [facility] Comment on above: Order Comment: Reaso n for Exam Chronic kidney disease, stage 3 unspecified;Kade hy jarek w cr Name Collection Type:: Clean-Voided Midstream Performed By: #### A DDONUAPLUS #### [address] [id number] [place] Occult Blood,Urine Negative Normal Negative [facility] Comment on above: Order Comment: Reaso n for Exam Chronic kidney disease, stage 3 unspecified;Kade hy jarek w cr Name Collection Type:: Clean-Voided Midstream Performed By: #### A DDONUAPLUS #### [address] pH (U) 6.0 [pH] Normal 5.0-9.0 [facility] Comment on above: Order Comment: Reaso n for Exam Chronic kidney disease, stage 3 unspecified;Kade hy kid w cr Name Collection Type:: Clean-Voided Midstream Performed By: #### A DDONUAPLUS #### [address] Protein (U) [Mass/Vol] 70 mg/dL High Negative [facility] Comment on above: Order Comment: Reaso n for Exam Chronic kidney disease, stage 3 unspecified;Kade hy kid w cr Name Collection Type:: Clean-Voided Midstream Performed By: #### A DDONUAPLUS #### [address] RBC,Urine 1 [HPF] Normal 0-4 [facility] Comment on above: Order Comment: Reaso n for Exam Chronic kidney disease, stage 3 unspecified;Kade hy kid w cr Name Collection Type:: Clean-Voided Midstream Performed By: #### A DDONUAPLUS #### [address] Specificy [place],Urine 1.013 Normal 1.001-1.03 0 [facility] Comment on above: Order Comment: Reaso n for Exam Chronic kidney disease, stage 3 unspecified;Kade hy kid w cr Name Collection Type:: Clean-Voided Midstream Result Comment: Rech ecked by refractometer Performed By: #### A DDONUAPLUS #### [place] [address] [place] Urobilinogen,Urine Normal Normal Normal [facility] Comment on above: Order Comment: Reaso n for Exam Chronic kidney disease, stage 3 unspecified;Kade hy kid w cr Name Collection Type:: Clean-Voided Midstream Performed By: #### A DDONUAPLUS #### [place] [address] [place] WBC,Urine 1 [HPF] Normal 0-4 [facility] Comment on above: Order Comment: Reaso n for Exam Chronic kidney disease, stage 3 unspecified;Kade hy kid w cr Name Collection Type:: Clean-Voided Midstream Performed By: #### A DDONUAPLUS #### [facility] [address] [place] [address] Eosinophils Auto (Bld) [#/Vo l]Ordered By: Magy Emiliano on 09-03-2024 Eosinophils (Bld) [#/Vol] Automated eosinophil count 0.0-0.45 [facility] Eosinophils/100 WBC Auto (Bl d)Ordered By: Magy Emiliano on 09-03-2024 Eosinophils/100 WBC (Bld) Automated eosinophil % . [facility] Epithelial cells.squamous [# /area] in Urine sediment by Automated countOrdered By: Magy Emiliano on 09-03-2024 Epithelial cells.squamous Auto (Urine sed) [#/Area] Epithelial cells.squamous [#/area] in Urine sediment by Automated count [facility] Erythrocyte distribution wid th Auto (RBC) [Ratio]Ordered By: Magy Emiliano on 09-03-2024 Erythrocyte distribution width (RBC) [Ratio] Erythrocyte distribution width [Ratio] by Automated count High 12.0-14.8 [facility] Erythrocytes [#/area] in Uri ne sediment by Automated countOrdered By: Magy Emiliano on 09-03-2024 RBC Auto (Urine sed) [#/Area] Erythrocytes [#/area] in Urine sediment by Automated count 0-4 [facility] Ferritinon 09-03-2024 Ferritin [Mass/Vol] 30.7 ng/mL Normal 23.9-336.2 [facility] Comment on above: Order Comment: Reaso n for Exam Chronic kidney disease, stage 3 unspecified;Kade hy kid w cr Performed By: #### P TH #### [facility] [address] [place] [address] Ferritin [Mass/volume] in Se rum or PlasmaOrdered By: Magy Emiliano on 09-03-2024 Ferritin [Mass/Vol] Ferritin [Mass/volum e] in Serum or Plasma 23.9-336.2 [facility] Glucose [Mass/volume] in Ser um or PlasmaOrdered By: Magy Cummings on 09-03-2024 Glucose [Mass/Vol] Glucose [Mass/volume ] in Serum or Plasma 70-100 [facility] Comment on above: ADA recommended refe rence [...] by Test strip High Normal [facility] Hematocrit Auto (Bld) [Volum e fraction]Ordered By: Magy Cummings on 09-03-2024 Hematocrit (Bld) [Volume fraction] Hematocrit [Volume Fraction] of Blood by Automated count Low 38.8-50.0 [facility] Hemoglobin Test strip Ql (U) Ordered By: Magy Cummings on 09-03-2024 Hemoglobin Ql (U) Hemoglobin [Presence ] in Urine by Test strip Negative [facility] Hemoglobin [Mass/volume] in BloodOrdered By: Magy Cummings on 09-03-2024 Hemoglobin (Bld) [Mass/Vol] Hemoglobin [Mass/volume] in Blood Low 13.0-17.0 [facility] Hyaline casts [#/area] in Ur ine sediment by Automated countOrdered By: Magy Cummings on 09-03-2024 Hyaline casts Auto (Urine sed) [#/Area] Hyaline casts [#/area] in Urine sediment by Automated count 0-8 [facility] Iron [Mass/volume] in Serum or PlasmaOrdered By: Magy Cummings on 09-03-2024 Iron [Mass/Vol] Iron [Mass/volume] i n Serum or Plasma Low 50-212 [facility] Iron and TIBC Profileon 08-16 % Iron Saturation 10.0 % Low 20-50 [facility] Comment on above: Order Comment: Reaso n for Exam Chronic kidney disease, stage 3 unspecified;Kade hy kid w cr Performed By: #### P TH #### [facility] [address] Iron [Mass/Vol] 32 ug/dL Low 50-212 [facility] Comment on above: Order Comment: Reaso n for Exam Chronic kidney disease, stage 3 unspecified;Kade hy kid w cr Performed By: #### P TH #### [facility] [address] Total Iron Binding Capacity 319 ug/dL Normal 255-450 [facility] Comment on above: Order Comment: Reaso n for Exam Chronic kidney disease, stage 3 unspecified;Kade hy kid w cr Performed By: #### P TH #### [facility] [address] Transferrin [Mass/Vol] 228 mg/dL Normal 203-362 [facility] Comment on above: Order Comment: Reaso n for Exam Chronic kidney disease, stage 3 unspecified;Kade hy kid w cr Performed By: #### P TH #### [facility] [address] Ketones Test strip Ql (U)Ord ered By: Magy Cummings on 09-03-2024 Ketones Ql (U) Ketones [Presence] i n Urine by Test strip Negative [facility] Leukocyte esterase [Presence ] in Urine by Test stripOrdered By: Magy Cummings on 09-03-2024 Leukocyte esterase Test strip Ql (U) Leukocyte esterase [Presence] in Urine by Test strip Negative [facility] [facility] [place] Leukocytes [#/area] in Urine sediment by Automated countOrdered By: Magy Cummings on 09-03-2024 WBC Auto (Urine sed) [#/Area] Leukocytes [#/area] in Urine sediment by Automated count 0-4 [facility] [place] Leukocytes [#/volume] correc anna for nucleated erythrocytes in Blood by Automated counOrdered By: Magy Cummings on 09-03-2024 WBC corrected for nucl RBC Auto (Bld) [#/Vol] Leukocytes [#/volume] corrected for nucleated erythrocytes in Blood by Automated coun 4.1-10.5 [facility] [place] Lymphocytes Auto (Bld) [#/Vo l]Ordered By: Magy Giordanodir on 09-03-2024 Lymphocytes (Bld) [#/Vol] Lymphocytes [#/volume] in Blood by Automated count 1.00-4.8 [facility] [place] Lymphocytes/100 WBC Auto (Bl d)Ordered By: Magy Emiliano on 09-03-2024 Lymphocytes/100 WBC (Bld) Lymphocytes/100 leukocytes in Blood by Automated count . [facility] [place] MCH Auto (RBC) [Entitic mass ]Ordered By: Magy Emiliano on 09-03-2024 MCH (RBC) [Entitic mass] MCH [Entitic mass] by Automated count Low 27.5-35.2 [facility] [place] MCHC Auto (RBC) [Mass/Vol]Or dered By: Magy Emliiano on 09-03-2024 MCHC (RBC) [Mass/Vol] MCHC [Mass/volume] by Automated count Low 32.5-35.6 [facility] [place] MCV Auto (RBC) [Entitic vol] Ordered By: Magy Emiliano on 09-03-2024 MCV (RBC) [Entitic vol] MCV [Entitic volume] by Automated count Low 83.5-101 [facility] [place] Magnesiumon 09-03-2024 Magnesium [Mass/Vol] 2.1 mg/dL Normal 1.9-2.7 [facility] Comment on above: Order Comment: Reaso n for Exam Chronic kidney disease, stage 3 unspecified;Kade hy kid w cr Performed By: #### P TH #### [facility] [address] [place] [address] Magnesium [Mass/volume] in S zoey or PlasmaOrdered By: Magy Emiliano on 09-03-2024 Magnesium [Mass/Vol] Magnesium [Mass/vol ume] in Serum or Plasma 1.9-2.7 [facility] [place] Monocytes Auto (Bld) [#/Vol] Ordered By: Magy Emiliano on 09-03-2024 Monocytes (Bld) [#/Vol] Automated blood monocyte count 0.0-0.8 [facility] [place] Monocytes/100 WBC Auto (Bld) Ordered By: Magy Emiliano on 09-03-2024 Monocytes/100 WBC (Bld) Automated monocyte % . [facility] [place] Mucus [Presence] in Urine by AutomatedOrdered By: Magy Cummings on 09-03-2024 Mucus Auto Ql (U) Mucus [Presence] in Urine by Automated [facility] [place] NT-proBNPon 09-03-2024 Natriuretic peptide B (Bld) [Mass/Vol] 7564 pg/mL High 0-376 [facility] Comment on above: Result Comment: The following cut-points have been suggested for the use of proBNP for the diagnostic evaluation of heart failure (HF) in patients with acute dyspnea: Modality Age Optimal Cut (years) Point Diagnosis (rule in HF) <50 450 pg/mL 50 - 75 900 pg/mL >75 1800 pg/mL Exclusion (rule out HF) Age independent 300 pg/mL Performed at: [facility] [id number] Public Address Technician: Contreras Pollard PhD, Phone: [phone] PERFORMED BY: [place] [address] PATHOLOGIST SLIP SEAT COVERER GRANT SCHNEIDER M.D. Performed By: #### A DDONUAPLUS #### [address] Natriuretic peptide.B prohor mickey N-Terminal [Mass/volume] in Serum or PlasmaOrdered By: NON STAFF on 09-03-2024 Natriuretic peptide.B prohormone N-Terminal [Mass/Vol] Natriuretic peptide.B prohormone N-Terminal [Mass/volume] in Serum or Plasma High 0-376 [facility] [place] Comment on above: The following cut-po ints have been suggested for theuse of proBNP for the diagnostic evaluation of heartfailure (HF) in patients with acute dyspnea:Modality Age Optimal Cut (years) Point Diag nosis (rule in HF) <50 450 pg/mL 50 - 75 900 pg/mL >75 1800 pg/mLExclusion (rule out HF) Age independent 300 pg/mLPerformed at: - [facility] [id number] [place], [place] [id number] Director: Contreras Pollard PhD, Phone: [phone] Neutrophils Auto (Bld) [#/Vo l]Ordered By: Magy Cummings on 09-03-2024 Neutrophils (Bld) [#/Vol] Neutrophils [#/volume] in Blood by Automated count 1.8-7.7 [facility] [place] Neutrophils/100 WBC Auto (Bl d)Ordered By: Magy Cummings on 09-03-2024 Neutrophils/100 WBC (Bld) Automated neutrophil % . [facility] [place] Nitrite Test strip Ql (U)Ord ered By: Magy Cummings on 09-03-2024 Nitrite Ql (U) Nitrite [Presence] i n Urine by Test strip Negative [facility] [place] No Panel InformationOrdered By: Magy Cummings on 09-03-2024 Estimated GFR (CKD-EPI) 33.016 mL/Min [facility] [place] Pharmacy Creatinine Clearance (Chem N/A [facility] [place] Nucleated erythrocytes [Pres ence] in Blood by Automated countOrdered By: Magy Cummings on 09-03-2024 Nucleated RBC Auto Ql (Bld) Nucleated erythrocytes [Presence] in Blood by Automated count 0-0.5 [facility] [place] Parathyrin.intact [Mass/volu me] in Serum or PlasmaOrdered By: Magy Cummings on 09-03-2024 Parathyrin.intact [Mass/Vol] Parathyrin.intact [Mass/volume] in Serum or Plasma [facility] [place] Parathyroid Hormone Intacton 09-03-2024 Parathyroid Hormone Intact 79.3 pg/mL Normal [facility] Comment on above: Order Comment: Reaso n for Exam Chronic kidney disease, stage 3 unspecified;Kade hy kid w cr Result Comment: PERF ORMED BY: [facility] [address] [place] [address] PATHOLOGIST SLIP SEAT COVERER GRANT SCHNEIDER M.D. Performed By: #### P TH #### [facility] [address] [place] [address] [place] Phosphate [Mass/volume] in S zoey or PlasmaOrdered By: Magy Cummings on 09-03-2024 Phosphate [Mass/Vol] Phosphate [Mass/vol ume] in Serum or Plasma 2.5-4.5 [facility] [place] Platelet mean volume Auto (B ld) [Entitic vol]Ordered By: Magy Cummings on 09-03-2024 Platelet mean volume (Bld) [Entitic vol] Platelet mean volume [Entitic volume] in Blood by Automated count 6.6-10.1 [facility] [place] Platelets Auto (Bld) [#/Vol] Ordered By: Magy Cummings on 09-03-2024 Platelets (Bld) [#/Vol] Platelets [#/volume] in Blood by Automated count 150-450 [facility] [place] Potassium [Moles/volume] in Serum or PlasmaOrdered By: Magy Cummings on 09-03-2024 Potassium [Moles/Vol] Potassium [Moles/v olume] in Serum or Plasma 3.5-5.1 [facility] [place] Protein Creat Ratio Ur Rando mon 09-03-2024 Creatinine, Urine (Random) 46.00 mg/dL Normal [facility] Comment on above: Order Comment: Reaso n for Exam Chronic kidney disease, stage 3 unspecified;Kade hy kid w cr Name Collection Type:: Clean-Voided Midstream Result Comment: No r eference range established Performed By: #### A DDONUAPLUS #### [facility] [address] [place] [id number] [place] Protein (U) [Mass/Vol] 108 mg/dL High 0-9 [facility] Comment on above: Order Comment: Reaso n for Exam Chronic kidney disease, stage 3 unspecified;Kade hy kid w cr Name Collection Type:: Clean-Voided Midstream Performed By: #### A DDONUAPLUS #### [facility] [address] [place] [id number] [place] Urine Protein/Creatinine Ratio 2348 mg/g{Cre} High 0-200 [facility] Comment on above: Order Comment: Reaso n for Exam Chronic kidney disease, stage 3 unspecified;Kade hy kid w cr Name Collection Type:: Clean-Voided Midstream Result Comment: PERF ORMED BY: [place] [address] PATHOLOGIST SLIP SEAT COVERER GRANT SCHNEIDER M.D. Performed By: #### A DDONUAPLUS #### [facility] [address] [place] [id number] [facility] Protein Test strip (U) [Mass /Vol]Ordered By: Magy Giordanodir on 09-03-2024 Protein (U) [Mass/Vol] Protein [Mass/vol ume] in Urine by Test strip High Negative [facility] [place] Protein [Mass/volume] in Uri neOrdered By: Magy Emiliano on 09-03-2024 Protein (U) [Mass/Vol] Protein [Mass/vol ume] in Urine High 0-9 [facility] [place] RBC Auto (Bld) [#/Vol]Ordere d By: Magy Emiliano on 09-03-2024 RBC (Bld) [#/Vol] Erythrocytes [#/volu me] in Blood by Automated count 3.90-5.60 [facility] [place] Renal Function Panelon 09-03 Albumin [Mass/Vol] 3.6 g/dL Normal 3.5-5.7 [facility] Comment on above: Order Comment: Reaso n for Exam Chronic kidney disease, stage 3 unspecified;Kade hy kid w cr Result Comment: PERF ORMED BY: [place] [address] PATHOLOGIST SLIP SEAT COVERER GRANT SCHNEIDER M.D. Performed By: #### P TH #### [facility] [address] [place] [id number] [facility] Anion gap [Moles/Vol] 8.1 mmol/L Normal 6.0-15.0 [facility] Comment on above: Order Comment: Reaso n for Exam Chronic kidney disease, stage 3 unspecified;Kade hy kid w cr Performed By: #### P TH #### [facility] [address] [place] [id number] [place] Calcium [Mass/Vol] 9.7 mg/dL Normal 8.6-10.3 [facility] Comment on above: Order Comment: Reaso n for Exam Chronic kidney disease, stage 3 unspecified;Kade hy kid w cr Performed By: #### P TH #### [facility] [address] [place] [id number] [place] Chloride [Moles/Vol] 103 mmol/L Normal 98-107 [facility] Comment on above: Order Comment: Reaso n for Exam Chronic kidney disease, stage 3 unspecified;Kade hy kid w cr Performed By: #### P TH #### [facility] [address] [place] [id number] [facility] CO2 [Moles/Vol] 31.8 mmol/L High 21.0-31.0 [facility] Comment on above: Order Comment: Reaso n for Exam Chronic kidney disease, stage 3 unspecified;Kade hy kid w cr Performed By: #### P TH #### [facility] [address] [place] [id number] [facility] Creatinine [Mass/Vol] 2.09 mg/dL High 0.70-1.30 [facility] Comment on above: Order Comment: Reaso n for Exam Chronic kidney disease, stage 3 unspecified;Kade hy kid w cr Performed By: #### P TH #### [facility] [address] [place], [place] [id number] [facility] Estimated GFR 33.016 mL/Min Normal [facility] Comment on above: Order Comment: Reaso n for Exam Chronic kidney disease, stage 3 unspecified;Kade hy kid w cr Performed By: #### P TH #### [facility] [address] [place], [place] [id number] [place] Glucose [Mass/Vol] 91 mg/dL Normal 70-100 [facility] Comment on above: Order Comment: Reaso n for Exam Chronic kidney disease, stage 3 unspecified;Kade hy kid w cr Result Comment: [place] om Glucose Reference Range is dependent on time and content of last meal. Glucose of more than 200 mg/dL in a nonstressed, ambulatory subject supports the diagnosis of Diabetes Mellitus. ADA recommended reference range Performed By: #### P TH #### [facility] [address] Phosphate [Mass/Vol] 3.4 mg/dL Normal 2.5-4.5 [facility] Comment on above: Order Comment: Reaso n for Exam Chronic kidney disease, stage 3 unspecified;Kade hy kid w cr Performed By: #### P TH #### [facility] [address] Potassium [Moles/Vol] 3.9 mmol/L Normal 3.5-5.1 [facility] Comment on above: Order Comment: Reaso n for Exam Chronic kidney disease, stage 3 unspecified;Kade hy kid w cr Performed By: #### P TH #### [facility] [address] Sodium [Moles/Vol] 139 mmol/L Normal 136-145 [facility] Comment on above: Order Comment: Reaso n for Exam Chronic kidney disease, stage 3 unspecified;Kade hy kid w cr Performed By: #### P TH #### [facility] [address] [place] [id number] [facility] Urea nitrogen [Mass/Vol] 22 mg/dL Normal 7-25 [facility] Comment on above: Order Comment: Reaso n for Exam Chronic kidney disease, stage 3 unspecified;Kade hy kid w cr Performed By: #### P TH #### [facility] [address] [place] [address] Serum or plasma anion gap de terminationOrdered By: Magy Cummings on 09-03-2024 Anion gap [Moles/Vol] Serum or plasma an ion gap determination 6.0-15.0 [facility] [place] Serum or plasma iron binding capacity measurement (mass/volume)Ordered By: Magy Cummings on 09-03-2024 Iron binding capacity [Mass/Vol] Iron binding capacity [Mass/volume] in Serum or Plasma 255-450 [facility] [place] Serum or plasma iron saturat ion measurement (mass fraction)Ordered By: Magy Cummings on 09-03-2024 Iron saturation [Mass fraction] Iron saturation [Mass Fraction] in Serum or Plasma Low 20-50 [facility] [place] Sodium [Moles/volume] in Ser um or PlasmaOrdered By: Magy Cummings on 09-03-2024 Sodium [Moles/Vol] Sodium [Moles/volume ] in Serum or Plasma 136-145 [facility] [place] Specific gravity of Urine by RefractometryOrdered By: Magy Cummings on 09-03-2024 Specific gravity Refractometry (U) [Rel density] Specific gravity of Urine by Refractometry 1.001-1.03 0 [facility] [place] Comment on above: Rechecked by refract ometer Transferrin [Mass/volume] in Serum or PlasmaOrdered By: Magy Cummings on 09-03-2024 Transferrin [Mass/Vol] Transferrin [Mass /volume] in Serum or Plasma 203-362 [facility] [place] Urate [Mass/volume] in Serum or PlasmaOrdered By: Magy Cummings on 09-03-2024 Urate [Mass/Vol] Urate [Mass/volume] in Serum or Plasma 4.4-7.6 [facility] [place] Urea nitrogen [Mass/volume] in Serum or PlasmaOrdered By: Magy Cummings on 09-03-2024 Urea nitrogen [Mass/Vol] Urea nitrogen [Mass/volume] in Serum or Plasma 7-25 [facility] [place] Uric Acidon 09-03-2024 Urate [Mass/Vol] 7.0 mg/dL Normal 4.4-7.6 [facility] Comment on above: Order Comment: Reaso n for Exam Chronic kidney disease, stage 3 unspecified;Kade hy kid w cr Performed By: #### P TH #### [address] Urine protein/creatinine rat ioOrdered By: Magy Cummings on 09-03-2024 Protein/Creatinine (U) [Ratio] Urine protein/creatinine ratio High 0-200 [facility] [place] Urobilinogen Test strip (U) [Mass/Vol]Ordered By: Magy Cummings on 09-03-2024 Urobilinogen (U) [Mass/Vol] Urobilinogen [Mass/volume] in Urine by Test strip Normal [facility] [place] Vitamin D 25 Hydroxy Totalon 09-03-2024 Vitamin D 25 Hydroxy Total 29.1 ng/mL Low 30-100 [facility] Comment on above: Order Comment: [...] practice guideline. JCEM. 2010; 96(7):1911-. PERFORMED BY: [place] [address] PATHOLOGIST SLIP SEAT COVERER GRANT SCHNEIDER M.D. Performed By: #### P TH #### [address] Vitamin D+Metabolites [Mass/ volume] in Serum or PlasmaOrdered By: Magy Cummings on 09-03-2024 Vitamin D+Metabolites [Mass/Vol] Vitamin D+Metabolites [Mass/volume] in Serum or Plasma Low 30-100 [facility] [place] Comment on above: VITAMIN D STATUS 25( [...] Blood by Automated count 4.1-10.5 [facility] [place] pH Test strip (U)Ordered By: Magy Cummings on 09-03-2024 pH (U) pH of Urine by Test strip 5.0-9.0 [facility] [place] Erythrocyte distribution wid th Auto (RBC) [Ratio]on 06-03-2024 Erythrocyte distribution width (RBC) [Ratio] 14.5 % 11.0-15.0 [facility] [place] Estimated glomerular filtrat ion rate (GFR) non- Americanon 06-03-2024 GFR/1.73 sq M.predicted among non-blacks MDRD (S/P/Bld) [Vol rate/Area] 33 mL/min/{1.73_m2} Low >=60 [facility] [place] Glucose mean value [Mass/vol ume] in Blood Estimated from glycated hemoglobinon 06-03-2024 Average glucose Estimated from glycated hemoglobin (Bld) [Mass/Vol] 94 mg/dL [facility] [place] Hematocrit Auto (Bld) [Volum e fraction]on 06-03-2024 Hematocrit (Bld) [Volume fraction] 33.5 % Low 42.0-54.0 [facility] [place] Hemoglobin [Mass/volume] in Bloodon 06-03-2024 Hemoglobin (Bld) [Mass/Vol] 10.6 g/dL Low 14.0-18.0 [facility] [place] Laboratory - Chemistry and C hemistry - challengeon 06-03-2024 Albumin [Mass/Vol] 3.0 g/dL Low 3.4-5.0 [facility] Calcium [Mass/Vol] 9.9 mg/dL 8.5-10.1 [facility] Chloride [Moles/Vol] 101 mmol/L 98-107 [facility] CO2 [Moles/Vol] 31.9 mmol/L 21.0-32.0 [facility] Creatinine [Mass/Vol] 2.00 mg/dL High 0.70-1.30 [facility] GFR/1.73 sq M.predicted MDRD (S/P/Bld) [Vol rate/Area] 40 mL/min/{1.73_m2} Low >=60 [facility] [place] Glucose [Mass/Vol] 106 mg/dL 74-106 [facility] Magnesium [Mass/Vol] 1.8 mg/dL 1.8-2.4 [facility] Potassium [Moles/Vol] 4.1 mmol/L 3.5-5.1 [facility] Sodium [Moles/Vol] 137 mmol/L 136-145 [facility] Urate [Mass/Vol] 7.1 mg/dL 3.5-7.2 [facility] Urea nitrogen [Mass/Vol] 20.0 mg/dL High 7.0-18.0 [facility] [place] Urea nitrogen/Creatinine [Mass ratio] 10.0 mg/mg [facility] [place] Bilirubin Ql (U) Negative NEGATIVE [facility] Glucose (U) [Mass/Vol] Negative NEGATIVE [facility] Ketones Ql (U) Negative NEGATIVE [facility] [place] pH (U) 6.0 [pH] 5.0-9.0 [facility] [place] Specific gravity (U) [Rel density] 1.025 1.005-1.02 5 [facility] [place] Urobilinogen Qn (U) 1.0 {Beatriz'U}/dL 0.2-1.0 [facility] [place] Laboratory - Hematology and Cell countson 06-03-2024 HbA1c (Bld) [Mass fraction] 4.9 % 4.5-6.2 [facility] [place] Comment on above: ADA RECOMMENDED LIMI T 4.0 - 6.0ADA THERAPEUTIC TARGET < 7.0ACTION SUGGESTED> 7.0 Laboratory - Specimen inform ationon 06-03-2024 Appearance (U) CLEAR CLEAR [facility] [place] Color (U) YELLOW YELLOW [facility] [place] Laboratory - Urinalysison Hyaline casts LM Ql (Urine sed) FEW [facility] [place] Leukocyte esterase Test strip Ql (U) Negative NEGATIVE [facility] [place] Mucus Ql (Urine sed) SMALL Abnormal NONE SEEN [facility] Nitrite Ql (U) Negative NEGATIVE [facility] [place] Protein (U) [Mass/Vol] 385.3 mg/dL High <=11.9 [facility] Protein Ql (U) >=300 mg/dL Abnormal NEG/TRACE [facility] [place] Leukocytes [#/volume] correc anna for nucleated erythrocytes in Blood by Automated counon 06-03-2024 WBC corrected for nucl RBC Auto (Bld) [#/Vol] 5.9 10 3/uL 4.0-11.0 [facility] [place] MCH Auto (RBC) [Entitic mass ]on 06-03-2024 MCH (RBC) [Entitic mass] 26.4 pg 25.9-34.0 [facility] [place] MCHC Auto (RBC) [Mass/Vol]on 06-03-2024 MCHC (RBC) [Mass/Vol] 31.6 g/dL 29.9-35.2 [facility] MCV Auto (RBC) [Entitic vol] on 06-03-2024 MCV (RBC) [Entitic vol] 83.3 fL 80.0-94.0 [facility] [place] No Panel Informationon 06-03 25-Hydroxy Vitamin D Total 19.9 ng/mL [facility] [place] Comment on above: <20 ng/mL Vit D defi cient20-<30 ng/mL Vit D [id number] ng/mL Vit D sufficient>100 ng/mL Potential Toxicity Parathyroid Hormone (Intact) 53 pg/mL 15-65 [facility] [place] Comment on above: Performed at: [address] [id number] Director: Contreras Plolard PhD, Phone: [phone] Phosphorus Level 3.1 mg/dL 2.6-4.7 [facility] Urine Bacteria NONE SEEN #/HPF NONE SEEN [facility] Urine Occult Blood Negative NEGATIVE [facility] Urine Other Casts SEEN #/LPF Abnormal NONE SEEN [facility] Urine Other Crystals None Seen #/HPF None Seen [facility] [place] Urine Random Creatinine 145.44 mg/dL 20.00-300. 00 [facility] [place] Urine RBC 0-2 #/HPF 0-2 [facility] [place] Urine Squamous Epithelial Cells RARE #/LPF NONE/RARE [facility] [place] Urine WBC 2-5 #/HPF Abnormal NONE SEEN [facility] [place] Platelet mean volume Auto (B ld) [Entitic vol]on 06-03-2024 Platelet mean volume (Bld) [Entitic vol] 9.0 fL Low 9.5-13.5 [facility] [place] Platelets Auto (Bld) [#/Vol] on 06-03-2024 Platelets (Bld) [#/Vol] 222 10 3/uL 150-450 [facility] [place] RBC Auto (Bld) [#/Vol]on RBC (Bld) [#/Vol] 4.02 10 6/uL Low 4.70-6.10 [facility] Serum or plasma anion gap de terminationon 06-03-2024 Anion gap [Moles/Vol] 8.2 mmol/L [facility] Urine protein/creatinine rat ioon 06-03-2024 Protein/Creatinine (U) [Ratio] 2.65 [facility] [place] Albumin [Mass/volume] in Ser um or Plasma by Bromocresol green (BCG) dye binding methoOrdered By: Magy Cummings on 03-06-2024 Albumin BCG dye [Mass/Vol] 3.5 g/dL 3.5-5.7 [facility] [place] Calcium [Mass/volume] in Ser um or PlasmaOrdered By: Magy Emiliano on 03-06-2024 Calcium [Mass/Vol] 9.8 mg/dL Normal 8.6-10.3 [facility] Comment on above: Performed By: #### R ENAL #### [facility] [facility] [address] [place] [address] [place] Carbon dioxide, total [Moles /volume] in Serum or PlasmaOrdered By: Magy Cummings on 03-06-2024 CO2 [Moles/Vol] 31.1 mmol/L High 21.0-31.0 [facility] Comment on above: Performed By: #### R ENAL #### [facility] [address] [place] [address] [place] Chloride [Moles/volume] in S zoey or PlasmaOrdered By: Magy Julior on 03-06-2024 Chloride [Moles/Vol] 104 mmol/L Normal 98-107 [facility] Comment on above: Performed By: #### R ENAL #### [facility] [address] [place] [address] [place] Creatinine [Mass/volume] in Serum or PlasmaOrdered By: Magy Emiliano on 03-06-2024 Creatinine [Mass/Vol] 1.81 mg/dL High 0.70-1.30 [facility] Comment on above: Performed By: #### R ENAL #### [facility] [address] [place] [address] [place] Glucose [Mass/volume] in Ser um or PlasmaOrdered By: Magy Cummings on 03-06-2024 Glucose [Mass/Vol] 101 mg/dL High 70-100 [facility] Comment on above: ADA recommended refe rence rangeRandom Glucose Reference Range is dependent on time and content of last meal. Glucose of more than 200 mg/dL in a nonstressed, ambulatory subject supports the diagnosis of Diabetes Mellitus. Result Comment: [place] om Glucose Reference Range is dependent on time and content of last meal. Glucose of more than 200 mg/dL in a nonstressed, ambulatory subject supports the diagnosis of Diabetes Mellitus. ADA recommended reference range Performed By: #### R ENAL #### [address] No Panel InformationOrdered By: Magy Cummings on 03-06-2024 Estimated GFR (CKD-EPI) 39.237 mL/Min [facility] Creatinine Clearance (Chem N/A [facility] Phosphate [Mass/volume] in S zoey or PlasmaOrdered By: Magy Cummings on 03-06-2024 Phosphate [Mass/Vol] 2.8 mg/dL Normal 2.5-4.5 [facility] Comment on above: Performed By: #### R ENAL #### [address] Potassium [Moles/volume] in Serum or PlasmaOrdered By: Magy Cummings on 03-06-2024 Potassium [Moles/Vol] 3.5 mmol/L Normal 3.5-5.1 [facility] Comment on above: Performed By: #### R ENAL #### [address] Renal Function Panelon 03-06 Albumin [Mass/Vol] 3.5 g/dL Normal 3.5-5.7 [facility] Comment on above: Result Comment: PERF ORMED BY: [place] [address] PATHOLOGIST SLIP SEAT COVERER SALINA BLOCK M.D. Performed By: #### R ENAL #### [facility] [address] [place] [address] GFR/1.73 sq M.predicted MDRD (S/P/Bld) [Vol rate/Area] 39.237 mL/min/{1.73_m2} Normal [facility] Comment on above: Performed By: #### R ENAL #### [address] Serum or plasma anion gap de terminationOrdered By: Magy Emiliano on 03-06-2024 Anion gap [Moles/Vol] 9.4 mmol/L Normal 6.0-15.0 [facility] Comment on above: Performed By: #### R ENAL #### [address] Sodium [Moles/volume] in Ser um or PlasmaOrdered By: Magy Emiliano on 03-06-2024 Sodium [Moles/Vol] 141 mmol/L Normal 136-145 [facility] Comment on above: Performed By: #### R ENAL #### [address] Urea nitrogen [Mass/volume] in Serum or PlasmaOrdered By: Magy Emiliano on 03-06-2024 Urea nitrogen [Mass/Vol] 25 mg/dL Normal 7-25 [facility] Comment on above: Performed By: #### R ENAL #### [address] Automated erythrocytes count in urine sediment (number/area)Ordered By: Magy Emiliano on 02-15-2024 RBC Auto (Urine sed) [#/Area] 3-4 [HPF] 0-4 [facility] Automated leukocytes count i n urine sediment (number/area)Ordered By: Magy Emiliano on 02-15-2024 WBC Auto (Urine sed) [#/Area] 3-4 [HPF] 0-4 [facility] Automated urine color determ inationOrdered By: Magy Emiliano on 02-15-2024 Color (U) Yellow Normal Yellow [facility] Comment on above: Order Comment: Name Collection Type:: Voided Performed By: #### R ENAL #### [address] Automated urine hyaline cast s count (number/volume)Ordered By: Magy Cummings on 02-15-2024 Hyaline casts Auto (U) [#/Vol] 10-19 [LPF] 0-1 [facility] Bilirubin Test strip Ql (U)O rdered By: Magy Cummings on 02-15-2024 Bilirubin Ql (U) Negative Negative [facility] Casts typing in urine sedime nt by light microscopyOrdered By: Magy Cummings on 02-15-2024 Casts LM Nom (Urine sed) None seen [LPF] None Seen [facility] Creatinine [Mass/volume] in UrineOrdered By: Magy Cummings on 02-15-2024 Creatinine (U) [Mass/Vol] 157.0 mg/dL [facility] Comment on above: No reference range e stablished Dipstick and Microscopicon 0 02-15-2024 Appearance (U) Clear Normal Clear [facility] Comment on above: Order Comment: Name Collection Type:: Voided Performed By: #### R ENAL #### [place] [address] [place] Bacteria,Urine None Seen Normal None Seen [facility] Comment on above: Order Comment: Name Collection Type:: Voided Performed By: #### R ENAL #### [place] [address] [place] Bilirubin,Urine Negative Normal Negative [facility] Comment on above: Order Comment: Name Collection Type:: Voided Performed By: #### R ENAL #### [place] [address] [place] Glucose Ql (U) 250 mg/dL High Normal [facility] Comment on above: Order Comment: Name Collection Type:: Voided Performed By: #### R ENAL #### [place] [address] [place] Hyaline Casts,Urine 10-19 High 0-1 [facility] Comment on above: Order Comment: Name Collection Type:: Voided Performed By: #### R ENAL #### [address] Ketones Ql (U) Negative Normal Negative [facility] Comment on above: Order Comment: Name Collection Type:: Voided Performed By: #### R ENAL #### [address] Leukocyte esterase Test strip Ql (U) Negative Normal Negative [facility] Comment on above: Order Comment: Name Collection Type:: Voided Performed By: #### R ENAL #### [address] Nitrite,Urine Negative Normal Negative [facility] Comment on above: Order Comment: Name Collection Type:: Voided Performed By: #### R ENAL #### [address] Occult Blood,Urine Trace High Negative [facility] Comment on above: Order Comment: Name Collection Type:: Voided Performed By: #### R ENAL #### [address] Other Casts,Urine None Seen Normal None Seen [facility] Comment on above: Order Comment: Name Collection Type:: Voided Result Comment: PERF ORMED BY: [place] [address] PATHOLOGIST SLIP SEAT COVERER SALINA BLOCK M.D. Performed By: #### R ENAL #### [address] Protein,Urine >=1000 High Negative [facility] Comment on above: Order Comment: Name Collection Type:: Voided Performed By: #### R ENAL #### [place] [address] [place] RBC,Urine 3-4 Normal 0-4 [facility] Comment on above: Order Comment: Name Collection Type:: Voided Performed By: #### R ENAL #### [address] Specificy [place],Urine 1.026 Normal 1.001-1.03 0 [facility] Comment on above: Order Comment: Name Collection Type:: Voided Performed By: #### R ENAL #### [facility] [address] [place] [address] [place] Squamous Epithelial Cell,Urine 3-4 High 0-2 [facility] Comment on above: Order Comment: Name Collection Type:: Voided Performed By: #### R ENAL #### [facility] [address] [place] [address] [place] Urobilinogen,Urine Normal Normal Normal [facility] Comment on above: Order Comment: Name Collection Type:: Voided Performed By: #### R ENAL #### [facility] [address] [place] [address] [place] WBC,Urine 3-4 Normal 0-4 [facility] Comment on above: Order Comment: Name Collection Type:: Voided Performed By: #### R ENAL #### [facility] [address] [place] [address] [place] Ketones Auto test strip (U) [Mass/Vol]Ordered By: Magy Cummings on 02-15-2024 Ketones (U) [Mass/Vol] Negative Negative [facility] Nitrite Test strip Ql (U)Ord ered By: Magy Giordanodir on 02-15-2024 Nitrite Ql (U) Negative Negative [facility] Protein Auto test strip (U) [Mass/Vol]Ordered By: Magy Giordanodir on 02-15-2024 Protein (U) [Mass/Vol] mg/dL Negative [facility] Protein Creat Ratio Ur Rando mon 02-15-2024 Creatinine, Urine (Random) 157.0 mg/dL Normal [facility] Comment on above: Result Comment: No r eference range established Performed By: #### R ENAL #### [facility] [address] [place] [address] [place] Protein, Urine (Random) > 600 High 0-9 [facility] Comment on above: Performed By: #### R ENAL #### [facility] [address] [place] [address] [place] Urine Protein/Creatinine Ratio Not performed Normal 0-200 [facility] Comment on above: Result Comment: PERF ORMED BY: [place] [address] PATHOLOGIST SLIP SEAT COVERER SALINA BLOCK M.D. Performed By: #### R ENAL #### [address] Protein [Mass/volume] in Uri neOrdered By: Magy Cummings on 02-15-2024 Protein (U) [Mass/Vol] mg/dL 0-9 [facility] Specific gravity Auto test s trip (U) [Rel density]Ordered By: Magy Cummings on 02-15-2024 Specific gravity (U) [Rel density] 1.026 1.001-1.03 0 [facility] Squamous epithelial cells de tection in urine sediment by light microscopyOrdered By: Magy Cummings on 02-15-2024 Epithelial cells.squamous LM Ql (Urine sed) 3-4 [HPF] 0-2 [facility] Urine bacteria detection by automated methodOrdered By: Magy Cummings on 02-15-2024 Bacteria Auto Ql (U) None seen [HPF] None Seen [facility] Urine clarity by refractomet ry automatedOrdered By: Magy Cummings on 02-15-2024 Clarity Refractometry automated (U) Clear Clear [facility] Urine glucose measurement by automated test strip (mass/volume)Ordered By: Magy Cummings on 02-15-2024 Glucose Auto test strip (U) [Mass/Vol] 250 mg/dL Normal [facility] Urine hemoglobin detection b y automated test stripOrdered By: Magy Cummings on 02-15-2024 Hemoglobin Auto test strip Ql (U) Trace Negative [facility] Urine leukocyte esterase det ection by automated test stripOrdered By: Magy Cummings on 02-15-2024 Leukocyte esterase Auto test strip Ql (U) Negative Negative [facility] Urine pH measurement by auto mated test stripOrdered By: Magy Cummings on 02-15-2024 pH (U) 6.0 [pH] Normal 5.0-9.0 [facility] Comment on above: Order Comment: Name Collection Type:: Voided Performed By: #### R ENAL #### [facility] [address] Urine protein/creatinine rat ioOrdered By: Magy Cummings on 02-15-2024 Protein/Creatinine (U) [Ratio] TNP [facility] Comment on above: Test not performed Urobilinogen Auto test strip (U) [Mass/Vol]Ordered By: Magy Cummings on 02-15-2024 Urobilinogen (U) [Mass/Vol] Normal mg/dL Normal [facility] Albumin [Mass/volume] in Ser um or Plasma by Bromocresol green (BCG) dye binding methoOrdered By: Magy Cummings on 02-14-2024 Albumin BCG dye [Mass/Vol] 3.6 g/dL 3.5-5.7 [facility] Calcium [Mass/volume] in Ser um or PlasmaOrdered By: Magy Cummings on 02-14-2024 Calcium [Mass/Vol] 9.3 mg/dL Normal 8.6-10.3 [facility] Comment on above: Performed By: #### R ENAL #### [facility] [address] [place] [address] [place] Carbon dioxide, total [Moles /volume] in Serum or PlasmaOrdered By: Magy Cummings on 02-14-2024 CO2 [Moles/Vol] 30.7 mmol/L Normal 21.0-31.0 [facility] Comment on above: Performed By: #### R ENAL #### [facility] [address] [place] [address] [place] Chloride [Moles/volume] in S zoey or PlasmaOrdered By: Magy Emiliano on 02-14-2024 Chloride [Moles/Vol] 102 mmol/L Normal 98-107 [facility] Comment on above: Performed By: #### R ENAL #### [facility] [address] [place] [address] [place] Creatinine [Mass/volume] in Serum or PlasmaOrdered By: Magy Emiliano on 02-14-2024 Creatinine [Mass/Vol] 1.76 mg/dL High 0.70-1.30 [facility] Comment on above: Performed By: #### R ENAL #### [facility] [address] Glucose [Mass/volume] in Ser um or PlasmaOrdered By: Magy Cummings on 02-14-2024 Glucose [Mass/Vol] 113 mg/dL High 70-100 [facility] Comment on above: ADA recommended refe rence rangeRandom Glucose Reference Range is dependent on time and content of last meal. Glucose of more than 200 mg/dL in a nonstressed, ambulatory subject supports the diagnosis of Diabetes Mellitus. Result Comment: [place] om Glucose Reference Range is dependent on time and content of last meal. Glucose of more than 200 mg/dL in a nonstressed, ambulatory subject supports the diagnosis of Diabetes Mellitus. ADA recommended reference range Performed By: #### R ENAL #### [address] No Panel InformationOrdered By: Magy Cummings on 02-14-2024 Estimated GFR (CKD-EPI) 40.578 mL/Min [facility] Creatinine Clearance (Chem N/A [facility] Phosphate [Mass/volume] in S zoey or PlasmaOrdered By: Magy Cummings on 02-14-2024 Phosphate [Mass/Vol] 3.1 mg/dL Normal 2.5-4.5 [facility] Comment on above: Performed By: #### R ENAL #### [address] Potassium [Moles/volume] in Serum or PlasmaOrdered By: Magy Cummings on 02-14-2024 Potassium [Moles/Vol] 3.9 mmol/L Normal 3.5-5.1 [facility] Comment on above: Performed By: #### R ENAL #### [address] Renal Function Panelon 02-13 Albumin [Mass/Vol] 3.6 g/dL Normal 3.5-5.7 [facility] Comment on above: Result Comment: PERF ORMED BY: [place] [address] PATHOLOGIST SLIP SEAT COVERER SALINA BLOCK M.D. Performed By: #### R ENAL #### [address] GFR/1.73 sq M.predicted MDRD (S/P/Bld) [Vol rate/Area] 40.578 mL/min/{1.73_m2} Normal [facility] Comment on above: Performed By: #### R ENAL #### [address] Serum or plasma anion gap de terminationOrdered By: Magy Emiliano on 02-14-2024 Anion gap [Moles/Vol] 12.2 mmol/L Normal 6.0-15.0 [facility] Comment on above: Performed By: #### R ENAL #### [place] [address] [place] Sodium [Moles/volume] in Ser um or PlasmaOrdered By: Magy Emiliano on 02-14-2024 Sodium [Moles/Vol] 141 mmol/L Normal 136-145 [facility] Comment on above: Performed By: #### R ENAL #### [address] Urea nitrogen [Mass/volume] in Serum or PlasmaOrdered By: Magy Emiliano on 02-14-2024 Urea nitrogen [Mass/Vol] 16 mg/dL Normal 7-25 [facility] Comment on above: Performed By: #### R ENAL #### [place] [address] [place] Albumin [Mass/volume] in Ser um or PlasmaOrdered By: Magy Emiliano on 01-26-2024 Albumin [Mass/Vol] 3.5 g/dL Normal 2.9-4.4 [facility] Comment on above: Performed By: #### I FE,URINE #### [facility] , Albumin [Mass/volume] in Ser um or Plasma by Bromocresol green (BCG) dye binding methoOrdered By: Magy Emiliano on 01-26-2024 Albumin BCG dye [Mass/Vol] 3.6 g/dL 3.5-5.7 [facility] Calcium [Mass/volume] in Ser um or PlasmaOrdered By: Magy Emiliano on 01-26-2024 Calcium [Mass/Vol] 9.5 mg/dL Normal 8.6-10.3 [facility] Comment on above: Performed By: #### K APPA, SPE W INTERPRET, GARCIA SERUM #### [facility] , #### RENAL #### [facility] [address] Carbon dioxide, total [Moles /volume] in Serum or PlasmaOrdered By: Magy Emiliano on 01-26-2024 CO2 [Moles/Vol] 31.8 mmol/L High 21.0-31.0 [facility] Comment on above: Performed By: #### K APPA, SPE W INTERPRET, GARCIA SERUM #### [facility] , #### RENAL #### [facility] [address] [place] [address] [place] Chloride [Moles/volume] in S zoey or PlasmaOrdered By: Magy Emiliano on 01-26-2024 Chloride [Moles/Vol] 100 mmol/L Normal 98-107 [facility] Comment on above: Performed By: #### K APPA, SPE W INTERPRET, GARCIA SERUM #### [facility] , #### RENAL #### [facility] [address] [place] [address] [place] Creatinine [Mass/volume] in Serum or PlasmaOrdered By: Magy Emiliano on 01-26-2024 Creatinine [Mass/Vol] 1.79 mg/dL High 0.70-1.30 [facility] Comment on above: Performed By: #### K APPA, SPE W INTERPRET, GARCIA SERUM #### [facility] , #### RENAL #### [facility] [address] [place] [address] [place] Free K+L LT Chains, Qn, Son 01-26-2024 Free [place] Light Chains, S 65.2 mg/L High 3.3-19.4 [facility] Comment on above: Performed By: #### I FE,URINE #### [facility] , Free [place] Light Chains, S 37.0 mg/L High 5.7-26.3 [facility] Comment on above: Performed By: #### I FE,URINE #### [facility] , [place]/Lambda Ratio, S 1.76 High 0.26-1.65 [facility] Comment on above: Result Comment: Perf ormed at: CB - [facility] [address] [id number] Public Address Technician: Contreras Pollard PhD, Phone: [phone] PERFORMED BY: [place] [address] PATHOLOGIST SLIP SEAT COVERER SALINA BLOCK M.D. Performed By: #### I FE,URINE #### [facility] , Glucose [Mass/volume] in Ser um or PlasmaOrdered By: Magy Cummings on 01-26-2024 Glucose [Mass/Vol] 97 mg/dL Normal 70-100 [facility] Comment on above: ADA recommended refe rence rangeRandom Glucose Reference Range is dependent on time and content of last meal. Glucose of more than 200 mg/dL in a nonstressed, ambulatory subject supports the diagnosis of Diabetes Mellitus. Result Comment: [place] om Glucose Reference Range is dependent on time and content of last meal. Glucose of more than 200 mg/dL in a nonstressed, ambulatory subject supports the diagnosis of Diabetes Mellitus. ADA recommended reference range Performed By: #### K APPA, SPE W INTERPRET, GARCIA SERUM #### [facility] , #### RENAL #### [address] IgA [Mass/volume] in Serum o r PlasmaOrdered By: Magy Cummings on 01-26-2024 IgA [Mass/Vol] 146 mg/dL 61-437 [facility] IgG [Mass/volume] in Serum o r PlasmaOrdered By: Magy Cummings on 01-26-2024 IgG [Mass/Vol] 1171 mg/dL 603-1613 [facility] IgM [Mass/volume] in Serum o r PlasmaOrdered By: Magy Cummings on 01-26-2024 IgM [Mass/Vol] 190 mg/dL 15-143 [facility] Comment on above: Performed at: [facility] [address] [id number] Director: Contreras Pollard PhD, Phone: [phone] Immunofixation for UrineOrde red By: Magy Cummings on 01-26-2024 Interpretation Immunofixation (U) [Interp] See comment . [facility] Comment on above: No monoclonality det ected.Performed at: [employer] [address] [id number] Director: Contreras Pollard PhD, Phone: [phone] Immunofixation, (GARCIA), Urine on 01-26-2024 Immunofixation, (GARCIA), Urine Normal . [facility] Comment on above: Result Comment: No m onoclonality detected. Performed at: [employer] [address] [id number] Public Address Technician: Contreras Pollard PhD, Phone: [phone] PERFORMED BY: [address] [place] [address] PATHOLOGIST SLIP SEAT COVERER SALINA BLOCK M.D. Performed By: #### I FE,URINE #### [facility] , Immunofixation,Serumon 01-25 Immunofixation, Serum Comment: Normal . [facility] Comment on above: Result Comment: Pres ence of monoclonal protein is unclear at this time. Suggest repeat in 3 to 6 months if clinically indicated. Performed By: #### I FE,URINE #### [facility] , Immunoglobulin A, Serum 146 mg/dL Normal 61-437 [facility] Comment on above: Performed By: #### I FE,URINE #### [facility] , Immunoglobulin G 1171 mg/dL Normal 603-1613 [facility] Comment on above: Performed By: #### I FE,URINE #### [facility] , Immunoglobulin M, Serum 190 mg/dL High 15-143 [facility] Comment on above: Result Comment: Perf ormed at: [email or web address] [place] [id number] [place], [place] [id number] Public Address Technician: Contreras Pollard PhD, Phone: [phone] Performed By: #### I FE,URINE #### [facility] , Immunoglobulin light chains. kappa.free [Mass/volume] in SerumOrdered By: Magy Cummings on 01-26-2024 Immunoglobulin light chains.kappa.free (S) [Mass/Vol] 65.2 mg/L 3.3-19.4 [facility] Immunoglobulin light chains. kappa.free/Immunoglobulin light chains.lambda.free [MassOrdered By: Magy Cummings on 01-26-2024 Immunoglobulin light chains.kappa.free/Immu noglobulin light chains.lambda.free (S) [Mass ratio] 1.76 0.26-1.65 [facility] Comment on above: Performed at: [facility] [address] [id number] Director: Contreras Pollard PhD, Phone: [phone] Immunoglobulin light chains. lambda.free [Mass/volume] in Serum or PlasmaOrdered By: Magy Cummings on 01-26-2024 Immunoglobulin light chains.lambda.free [Mass/Vol] 37.0 mg/L 5.7-26.3 [facility] No Panel InformationOrdered By: Magy Cummings on 01-26-2024 Estimated GFR (CKD-EPI) 39.763 mL/Min [facility] Creatinine Clearance (Chem N/A [facility] Protein Electrophoresis Interpret See comment . [facility] Comment on above: The SPE pattern appe ars unremarkable. Evidence ofmonoclonal protein is not apparent.Performed at: [facility] [id number] [place], [place] [id number] Director: Contreras Pollard PhD, Phone: [phone] Protein Electrophoresis M-Sabino Not observed g/dL Not Observed [facility] Protein Electrophoresis Note See comment . [facility] Comment on above: Protein electrophore sis scan will follow via computer,mail, or mill dresser delivery. Serum Immunofixation Comment: . [facility] Comment on above: Presence of monoclon al protein is unclear at this time. Suggestrepeat in 3 to 6 months if clinically indicated. Phosphate [Mass/volume] in S zoey or PlasmaOrdered By: Magy Cummings on 01-26-2024 Phosphate [Mass/Vol] 2.9 mg/dL Normal 2.5-4.5 [facility] Comment on above: Performed By: #### K APPA, SPE W INTERPRET, GARCIA SERUM #### [facility] , #### RENAL #### [facility] [address] Potassium [Moles/volume] in Serum or PlasmaOrdered By: Magy Cummings on 01-26-2024 Potassium [Moles/Vol] 3.1 mmol/L Low 3.5-5.1 [facility] Comment on above: Performed By: #### K APPA, SPE W INTERPRET, GARCIA SERUM #### [facility] , #### RENAL #### [facility] [address] [place] [address] [place] Prot Electrophoresis w/Inter yolanda 01-26-2024 Goasc-3-Avkolhzt 0.3 g/dL Normal 0.0-0.4 [facility] Comment on above: Performed By: #### I FE,URINE #### [facility] , Gaouy-3-Jdxjirez 0.7 g/dL Normal 0.4-1.0 [facility] Comment on above: Performed By: #### I FE,URINE #### [facility] , Beta Globulin 0.8 g/dL Normal 0.7-1.3 [facility] Comment on above: Performed By: #### I FE,URINE #### [facility] , Gamma Globulin 1.1 g/dL Normal 0.4-1.8 [facility] Comment on above: Performed By: #### I FE,URINE #### [facility] , M-Sabino Not Observed Normal Not Observed [facility] Comment on above: Performed By: #### I FE,URINE #### [facility] , SPE-Interpretation Normal . [facility] Comment on above: Result Comment: The SPE pattern appears unremarkable. Evidence of monoclonal protein is not apparent. Performed at: [address] [id number] Public Address Technician: Contreras Pollard PhD, Phone: [phone] Performed By: #### I FE,URINE #### [facility] , SPE-Note Normal . [facility] Comment on above: Result Comment: Prot ein electrophoresis scan will follow via computer, mail, or mill dresser delivery. Performed By: #### I FE,URINE #### [facility] , Protein [Mass/volume] in Ser um or PlasmaOrdered By: Magy Cummings on 01-26-2024 Protein [Mass/Vol] 6.4 g/dL Normal 6.0-8.5 [facility] Comment on above: Performed By: #### I FE,URINE #### [facility] , Renal Function Panelon 01-25 Albumin [Mass/Vol] 3.6 g/dL Normal 3.5-5.7 [facility] Comment on above: Result Comment: PERF ORMED BY: [place] [address] PATHOLOGIST SLIP SEAT COVERER SALINA BLOCK M.D. Performed By: #### K APPA, SPE W INTERPRET, GARCIA SERUM #### [facility] , #### RENAL #### [place] [address] [place] GFR/1.73 sq M.predicted MDRD (S/P/Bld) [Vol rate/Area] 39.763 mL/min/{1.73_m2} Normal [facility] Comment on above: Performed By: #### K APPA, SPE W INTERPRET, GARCIA SERUM #### [facility] , #### RENAL #### [facility] [address] Serum globulin measurement ( mass/volume)Ordered By: Magy Emiliano on 01-26-2024 Globulin (S) [Mass/Vol] 2.9 g/dL Normal 2.2-3.9 [facility] Comment on above: Performed By: #### I FE,URINE #### [facility] , Serum or plasma albumin/glob ulin mass ratioOrdered By: Magy Emiliano on 01-26-2024 Albumin/Globulin [Mass ratio] 1.2 {ratio} Normal 0.7-1.7 [facility] Comment on above: Performed By: #### I FE,URINE #### [facility] , Serum or plasma alpha 1 glob ulin measurement by electrophoresis (mass/volume)Ordered By: Magy Emiliano on 01-26-2024 Alpha 1 globulin Elph [Mass/Vol] 0.3 g/dL 0.0-0.4 [facility] Serum or plasma alpha 2 glob ulin measurement by electrophoresis (mass/volume)Ordered By: Magy Emiliano on 01-26-2024 Alpha 2 globulin Elph [Mass/Vol] 0.7 g/dL 0.4-1.0 [facility] Serum or plasma anion gap de terminationOrdered By: Magy Emiliano on 01-26-2024 Anion gap [Moles/Vol] 9.3 mmol/L Normal 6.0-15.0 [facility] Comment on above: Performed By: #### K APPA, SPE W INTERPRET, GARCIA SERUM #### [facility] , #### RENAL #### [facility] [address] Serum or plasma beta globuli n measurement by electrophoresis (mass/volume)Ordered By: Magy Cummings on 01-26-2024 Beta globulin Elph [Mass/Vol] 0.8 g/dL 0.7-1.3 [facility] Serum or plasma gamma globul in measurement by electrophoresis (mass/volume)Ordered By: Magy Cummings on 01-26-2024 Gamma globulin Elph [Mass/Vol] 1.1 g/dL 0.4-1.8 [facility] Sodium [Moles/volume] in Ser um or PlasmaOrdered By: Magy Cummings on 01-26-2024 Sodium [Moles/Vol] 138 mmol/L Normal 136-145 [facility] Comment on above: Performed By: #### K APPSergo, SPE W INTERPRET, GARCIA SERUM #### [facility] , #### RENAL #### [facility] [address] [place] [address] Urea nitrogen [Mass/volume] in Serum or PlasmaOrdered By: Magy Cummings on 01-26-2024 Urea nitrogen [Mass/Vol] 15 mg/dL Normal 7-25 [facility] Comment on above: Performed By: #### K APPA, SPE W INTERPRET, GARCIA SERUM #### [facility] , #### RENAL #### [facility] [address] [place] [address] Laboratory - Chemistry and C hemistry - challengeon 01-17-2024 Bilirubin Ql (U) Negative [facility] Ketones Ql (U) Negative [facility] pH (U) 7.0 [pH] [facility] Specific gravity (U) [Rel density] 1.016 [facility] Laboratory - Specimen inform ationon 01-17-2024 Color (U) yellow [facility] Laboratory - Urinalysison Leukocyte esterase Test strip Ql (U) Negative [facility] Nitrite Ql (U) Negative [facility] Protein Ql (U) 3+ [facility] No Panel Informationon 01-16 Urine Glucose (UA) trace [facility] Office Visit (Cardiology)on 06-01-2022 Follow-up visit Diagnoses/Problems Assessed Peripheral vascular disease (443.9) (I73.9) Hyperlipemia (272.4) (E78.5) Essential hypertension, benign (401.1) (I10) Overweight with body mass index (BMI) of 29 to 29.9 in adult (278.02,V85.25) (E66.3,Z68.29) Orders Essential hypertension, benign IO EKG Electrocardiogram- 12 Lead; Status:Complete; Done: [id number] Hyperlipemia Renew: Atorvastatin Calcium 10 MG Oral Tablet; take 1 tablet by mouth once daily Overweight with body mass index (BMI) of 29 to 29.9 in adult Healthy Weight Tips; Status:Complete; Done: [id number] Some eating tips that can help you lose weight.; Status:Complete; Done: [id number] Patient Instructions Please bring all medicines, vitamins, and herbal supplements with you when you come to the office. Prescriptions will not be filled unless you are compliant with your follow up appointments or have a follow up appointment scheduled as per instruction of your physician. Refills should be requested at the time of your visit. [place] [address] [place], [address], [place] Labs from [facility] requested. Follow up in 4 months Chief Complaint CHAR ALATORRE is being seen for a consultation for Mascot- Vasculopath. History of Present Illness Patient is [...] place. He believes he might be in [place] or at [facility] also in [facility]. Because of this we will attempt to [...] Signs Recorded: 01Jun2022 02:39PM Heart Rate83, Apical Lftfzxks249, RUE, Sitting Zpempvluf05, RUE, Sitting Height6 ft Hkmirj969 lb BMI Vjgxaymnof63.97 kg/m2 BSA Calculated2.22 Tobacco Useb) No PHQ-2 [...] Screening.on 022 Adult depression screening assessment No -[facility] chiqui [address] DO Work Phone: Fall risk assessment a) No falls within the last year Merged with [facility] chiqui 250 DO Work Phone: Tobacco use status [facility] b) No -[facility] chiqui 250 DO Work Phone: XR [...] by Lakhwinder Chappell on 03/29/2022 1159 Normal [facility] Patient Ambassador PARATHYROID HORMONE- RELATED PEPTIDEon 10-05-2021 PTHrP (PTH-Related Peptide) <2.0 Normal [facility] Comment on above: Result Comment: This test was developed and its performance characteristics determined by [facility]. It has not been cleared or approved [...] contact the laboratory. Performed By: #### [facility] #### [facility] [address] [place] [address] Dr. Chhaya De La Vega RESPIRATORY PANEL PLUSon Adenovirus Not detected Normal NOT DETECTED [facility] Comment on above: Performed By: #### R SPLUS #### [facility] [address] [place] [address] Dr. Chhaya Das Parapertusis Not detected Normal NOT DETECTED [facility] Comment on above: Performed By: #### R SPLUS #### [facility] [address] [place] [address] Dr. Chhaya Izaguirre. Pertussis Not detected Normal NOT DETECTED [facility] Comment on above: Performed By: #### R SPLUS #### [facility] [address] [place] [address] Dr. Chhaya De La Vega Chlamydia Pneumoniae Not detected Normal NOT DETECTED [facility] Comment on above: Performed By: #### R SPLUS #### [facility] [address] [place] [address] Dr. Chhaya De La Vega Coronavirus 229E Not detected Normal NOT DETECTED [facility] Comment on above: Performed By: #### R SPLUS #### [facility] [address] [place] [address] Dr. Chhaya De La Vega Coronavirus HKU1 Not detected Normal NOT DETECTED [facility] Comment on above: Performed By: #### R SPLUS #### [facility] [address] [place] [address] Dr. Chhaya De La Vega Coronavirus NL63 Not detected Normal NOT DETECTED [facility] Comment on above: Performed By: #### R SPLUS #### [facility] [address] [place] [address] Dr. Chhaya De La Vega Coronavirus OC43 Not detected Normal NOT DETECTED [facility] Comment on above: Performed By: #### R SPLUS #### [facility] [address] [place] [address] Dr. Chhaya De La Vega Influenza A H1 2009 Not detected Normal NOT DETECTED [facility] Comment on above: Performed By: #### R SPLUS #### [facility] [address] [place] [address] Dr. Chhaya De La Vega Influenza A H3 Not detected Normal NOT DETECTED [facility] Comment on above: Performed By: #### R SPLUS #### [facility] [address] [place] [address] Dr. Chhaya De La Vega Influenza B Not detected Normal NOT DETECTED [facility] Comment on above: Performed By: #### R SPLUS #### [facility] [address] [place] [address] Dr. Chhaya De La Vega Metapneumovirus Not detected Normal NOT DETECTED [facility] Comment on above: Performed By: #### R SPLUS #### [facility] [address] [place] [address] Dr. Chhaya De La Vega Mycoplas. Pneumoniae Not detected Normal NOT DETECTED [facility] Comment on above: Performed By: #### R SPLUS #### [facility] [address] [place] [address] Dr. Chhaya De La Vega Parainfluenza 1 Not detected Normal NOT DETECTED [facility] Comment on above: Performed By: #### R SPLUS #### [facility] [address] [place] [address] Dr. Chhaya De La Vega Parainfluenza 2 Not detected Normal NOT DETECTED [facility] Comment on above: Performed By: #### R SPLUS #### [facility] [address] [place] [address] Dr. Chhaya De La Vega Parainfluenza 3 Not detected Normal NOT DETECTED [facility] Comment on above: Performed By: #### R SPLUS #### [facility] [address] [place] [address] Dr. Chhaya De La Vega Parainfluenza 4 Not detected Normal NOT DETECTED [facility] Comment on above: Performed By: #### R SPLUS #### [facility] [address] [place] [address] Dr. Chhaya De La Vega Rhino/Enterovirus Detected Abnormal NOT DETECTED [facility] Comment on above: Performed By: #### R SPLUS #### [facility] [address] [place] [address] Dr. Chhaya De La Vega RP2 Header 1 RESPIRATORY PANEL: VIRUSES Normal [facility] Comment on above: Performed By: #### R SPLUS #### [facility] [address] [place] [address] Dr. Chhaya De La Vega RP2 Header 2 RESPIRATORY PANEL: BACTERIA Normal [facility] Comment on above: Performed By: #### R SPLUS #### [facility] [address] [place] [address] Dr. Chhaya De La Vega RSV Not detected Normal NOT DETECTED [facility] Comment on above: Performed By: #### R SPLUS #### [facility] [address] [place] [address] Dr. Chhaya De La Vega SARS-CoV-2 (COVID-19) RNA MICHELLE+probe Ql (Unsp spec) Not detected Normal NOT DETECTED [facility] Comment on above: Performed By: #### R SPLUS #### [facility] [address] [place] [address] Dr. Chhaya De La Vega CALCIUM 24 HR URINEon 2020 CALC, 24 HR UR 318.0 mg/24 hr Critically high 100.0-30 0. 0 [facility] Comment on above: Performed By: #### C [id number] #### [facility] [address] [place] [address] Dr. Chhaya De La Vega UR CALCIUM 26.5 mg/dL Critically high 0.0-21.0 [facility] Comment on above: Performed By: #### C ALC24U #### [facility] [address] [place] [address] Dr. Chhaya De La Vega UR TOT VOL 1200 ml/24 HR Normal [facility] Comment on above: Performed By: #### C [id number] #### [facility] [address] [place] [address] Dr. Chhaya De La Vega Performed By: #### C REA24U #### [facility] [address] [place] [address] Dr. Chhaya De La Vega CREA 24 HR URINEon CREA, 24 HR UR 1421.52 mg/24 hr Normal 1,000.00- 2 ,000.00 [facility] Comment on above: Performed By: #### C [id number] #### [facility] [address] [place] [address] Dr. Chhaya De La Vega URINE CREAT 118.46 mg/dL Normal 20.00-300. 00 [facility] Comment on above: Performed By: #### C [id number] #### [facility] [address] [place] [address] Dr. Chhaya De La Vega PARATHYROID HORMONE PLUS Dash n 09-29-2021 Calcium [Mass/Vol] 9.8 mg/dL Normal 8.6-10.2 [facility] Comment on above: Performed By: #### P THCA #### [facility] [address] [place] [address] Dr. Chhaya De La Vega Intact PTH Comment Normal [facility] Comment on above: Result Comment: Inte rpretation Intact PTH Calcium (pg/mL) (mg/dL) Normal 15 - 65 8.6 - 10.2 Primary Hyperparathyroidism >65 >10.2 Secondary Hyperparathyroidism >65 <10.2 Non-Parathyroid Hypercalcemia <65 >10.2 Hypoparathyroidism <15 < 8.6 Non-Parathyroid Hypocalcemia 15 - 65 < 8.6 . Performed By: #### P THCA #### [facility] [address] [place] [address] Dr. Chhaya De La Vega PTH, Intact 66 pg/mL Critically high 15-65 [facility] Comment on above: Performed By: #### P THCA #### [facility] [address] [place] [address] Dr. Chhaya De La Vega PROTEIN ELECTROPHERESISon Albumin [Mass/Vol] 3.5 g/dL Normal 2.9-4.4 [facility] Comment on above: Performed By: #### P RTELEC #### [facility] [address] [place] [address] Dr. Chhaya De La Vega Albumin/Globulin [Mass ratio] 0.9 {ratio} Normal 0.7-1.7 [facility] Comment on above: Performed By: #### P RTELEC #### [facility] [address] [place] [address] Dr. Chhaya De La Vega Unumx-5-Rkklaaqq 0.3 g/dL Normal 0.0-0.4 [facility] Comment on above: Performed By: #### P RTELEC #### [facility] [address] [address] [address] Chhaya De La Vega Pvenh-0-Muruiflq 0.9 g/dL Normal 0.4-1.0 [facility] Comment on above: Performed By: #### P RTELEC #### [facility] [address] [address] [address] Chhaya De La Vega Beta Globulin 0.9 g/dL Normal 0.7-1.3 [facility] Comment on above: Performed By: #### P RTELEC #### [facility] [address] [place] [address] Dr. Chhaya De La Vega Gamma Globulin 1.7 g/dL Normal 0.4-1.8 [facility] Comment on above: Performed By: #### P RTELEC #### [facility] [address] [place] [address] Dr. Chhaya De La Vega Globulin (S) [Mass/Vol] 3.9 g/dL Normal 2.2-3.9 [facility] Comment on above: Performed By: #### P RTELEC #### [facility] [address] [place] [address] Dr. Chhaya De La Vega M-Sabino Comment: Normal Not Observed [facility] Comment on above: Result Comment: SPE shows asymmetrical gamma. Performed By: #### P RTELEC #### [facility] [address] [address] [address] Chhaya De La Vega PDF . Normal [facility] Comment on above: Performed By: #### P RTELEC #### [facility] [address] [address] [address] Chhaya De La Vega Please note: Comment Normal [facility] Comment on above: Result Comment: Prot ein electrophoresis scan will follow via computer, mail, or mill dresser delivery. Performed By: #### P RTELEC #### [facility] [address] [address] [address] Chhaya De La Vega Protein [Mass/Vol] 7.4 g/dL Normal 6.0-8.5 [facility] Comment on above: Performed By: #### P RTELEC #### [facility] [address] [place] [address] Dr. Chhaya De La Vega RENAL FUNCTION PANELon 09-27 Albumin [Mass/Vol] 3.5 g/dL Normal 3.5-5.0 [facility] Comment on above: Performed By: #### R ENAL #### [facility] [address] [place] [address] Dr. Chhaya De La Vega Calcium [Mass/Vol] 9.6 mg/dL Normal 8.4-10.2 [facility] Comment on above: Performed By: #### R ENAL #### [facility] [address] [place] [address] Dr. Chhaya De La Vega Chloride [Moles/Vol] 99 mmol/L Normal 98-107 [facility] Comment on above: Performed By: #### R ENAL #### [facility] [address] [place] [address] Dr. Chhaya De La Vega CO2 [Moles/Vol] 28.6 mmol/L Normal 22.0-30.0 [facility] Comment on above: Performed By: #### R ENAL #### [facility] [address] [place] [address] Dr. Chhaya De La Vega Creatinine [Mass/Vol] 1.51 mg/dL Critically high 0.66-1.25 [facility] Comment on above: Performed By: #### R ENAL #### [facility] [address] [place] [address] Dr. Chhaya De La Vega EGFR-AF BELARUSIAN 56 mL/min/1.73m2 Critically low >=60 [facility] Comment on above: Performed By: #### R ENAL #### [facility] [address] [place] [address] Dr. Chhaya De La Vega EGFR-NON AF BELARUSIAN 46 mL/min/1.73m2 Critically low >=60 [facility] Comment on above: Performed By: #### R ENAL #### [facility] [address] [place] [address] Dr. Chhaya De La Vega Glucose [Mass/Vol] 101 mg/dL Normal 74-106 [facility] Comment on above: Performed By: #### R ENAL #### [facility] [address] [place] [address] Dr. Chhaya De La Vega Phosphate [Mass/Vol] 2.9 mg/dL Normal 2.5-4.5 [facility] Comment on above: Performed By: #### R ENAL #### [facility] [address] [place] [address] Dr. Chhaya De La Vega Potassium [Moles/Vol] 4.1 mmol/L Normal 3.4-5.0 [facility] Comment on above: Performed By: #### R ENAL #### [facility] [address] [place] [address] Dr. Chhaya De La Vega Sodium [Moles/Vol] 136 mmol/L Critically low 137-145 [facility] Comment on above: Performed By: #### R ENAL #### [facility] [address] [place] [address] Dr. Chhaya De La Vega Urea nitrogen [Mass/Vol] 13.0 mg/dL Normal 9.0-20.0 [facility] Comment on above: Performed By: #### R ENAL #### [facility] [address] [place] [address] Dr. Chhaya De La Vega VITAMIN D 25 OHon 09-27-2021 VIT D 25-OH 24.5 ng/mL Normal [facility] Comment on above: Performed By: #### C [id number] #### [facility] [address] [place] [address] Dr. Chhaya De La Vega VIT D RANGES SEE BELOW Normal [facility] Comment on above: Result Comment: <20 ng/mL Vit D deficient 20 - <30 ng/mL Vit D insufficient 30 - 100 ng/mL Vit D sufficient >100 ng/mL Potential Toxicity Performed By: #### C [id number] #### [facility] [address] [place] [address] Dr. Chhaya De La Vega XR DEXA [...] ARTI MALCOLM Date: 2021-09-27 11:20 Normal [facility] CBC AUTO DIFFon 02-02-2021 BASO # 0.1 103/ul Normal 0.0-0.1 [facility] Comment on above: Performed By: #### C BC #### [facility] [address] [place] [address] Niharika Xochitl Basophils/100 WBC (Bld) 0.5 % Normal 0.2-2.0 [facility] Comment on above: Performed By: #### C BC #### [facility] [address] [place], [place] [id number] Niharika Xochitl EO # 0.0 103/ul Normal 0.0-0.7 [facility] Comment on above: Performed By: #### C BC #### [facility] [address] [place], [place] [id number] Niharika Xochitl Eosinophils/100 WBC (Bld) 0.2 % Critically low 0.9-7.0 [facility] Comment on above: Performed By: #### C BC #### [facility] [address] [place], [place] [id number] Niharika Xochitl Erythrocyte distribution width (RBC) [Ratio] 13.9 % Normal 11.0-15.0 [facility] Comment on above: Performed By: #### C BC #### [facility] [address] [place], [place] [id number] Niharika Xochitl Hematocrit (Bld) [Volume fraction] 49.0 % Normal 42.0-54.0 [facility] Comment on above: Performed By: #### C BC #### [facility] [address] [id number] Niharika Xochitl Hemoglobin (Bld) [Mass/Vol] 16.1 g/dL Normal 14.0-18.0 [facility] Comment on above: Performed By: #### C BC #### [facility] [address] [place], [place] [address] Niharika Xochitl IG # 0.09 10e3/ul Critically high 0.00-0.03 [facility] Comment on above: Performed By: #### C BC #### [facility] [address] [place] [address] Niharika Xochitl IG % 0.5 % Normal 0.0-0.5 [facility] Comment on above: Performed By: #### C BC #### [facility] [address] [place] [address] Niharika Xochitl LYMPH # 1.5 103/ul Normal 1.2-3.8 [facility] Comment on above: Performed By: #### C BC #### [facility] [address] [place] [address] Niharika Leung Lymphocytes/100 WBC (Bld) 8.6 % Critically low 20.5-60.0 [facility] Comment on above: Performed By: #### C BC #### [facility] [address] [place] [address] Niharika Leung MANUAL DIFF REQ NO Normal [facility] Comment on above: Performed By: #### C BC #### [facility] [address] [place] [address] Niharikaaurelio Willetten MCH (RBC) [Entitic mass] 27.6 pg Normal 25.9-34.0 [facility] Comment on above: Performed By: #### C BC #### [facility] [address] [place], [place] [id number] Niharika Xochitl MCHC (RBC) [Mass/Vol] 32.9 g/dL Normal 29.9-35.2 [facility] Comment on above: Performed By: #### C BC #### [facility] [address] [id number] Niharika Leung MCV (RBC) [Entitic vol] 84.0 fL Normal 80.0-94.0 [facility] Comment on above: Performed By: #### C BC #### [facility] [address] [id number] Niharika Leung MONO # 1.0 103/ul Critically high 0.3-0.8 [facility] Comment on above: Performed By: #### C BC #### [facility] [address] [id number] Niharika Leung Monocytes/100 WBC (Bld) 6.1 % Normal 1.7-12.0 [facility] Comment on above: Performed By: #### C BC #### [facility] [address] [place], [place] [address] Niharika Leung NEUT # 14.1 103/ul Critically high 1.4-6.5 [facility] Comment on above: Performed By: #### C BC #### [facility] [address] [place], [place] [address] Niharika Leung Neutrophils/100 WBC (Bld) 84.1 % Critically high 43.0-75.0 [facility] Comment on above: Performed By: #### C BC #### [facility] [address] [place], [place] [address] Niharika Leung Platelet mean volume (Bld) [Entitic vol] 9.0 fL Critically low 9.5-13.5 [facility] Comment on above: Performed By: #### C BC #### [facility] [address] [place], [place] [address] Niharika Xochitl PLT 330 103/ul Normal 150-450 [facility] Comment on above: Performed By: #### C BC #### [facility] [address] [place], [place] [address] Niharika Xochitl RBC 5.83 106/ul Normal 4.70-6.10 [facility] Comment on above: Performed By: #### C BC #### [facility] [address] [place], [place] [address] Niharika Xochitl WBC 16.8 103/ul Critically high 4.0-11.0 [facility] Comment on above: Performed By: #### C #### [facility] [address] [id number] [address] ABD/PELVIS WO CONon 02-02 [...] HERBIE CASTELLANOS Date: 2021-02-02 02:05 Normal [facility] PROF 14(COMP METB)on 021 Albumin [Mass/Vol] 4.7 g/dL Normal 3.5-5.0 [facility] Comment on above: Performed By: #### C [id number] #### [facility] [address] [address] [address] Chhaya De La Vega Albumin/Globulin [Mass ratio] 0.9 {ratio} Normal [facility] Comment on above: Performed By: #### C [id number] #### [facility] [address] [address] [address] Chhaya De La Vega ALP [Catalytic activity/Vol] 163 U/L Critically high 38-126 [facility] Comment on above: Performed By: #### C [id number] #### [facility] [address] [address] [address] Chhaya De La Vega ALT [Catalytic activity/Vol] 22 U/L Normal 21-72 [facility] Comment on above: Performed By: #### C [id number] #### [facility] [address] [address] [address] Chhaya De La Vega Anion gap [Moles/Vol] 15.2 mmol/L Normal [facility] Comment on above: Performed By: #### C [id number] #### [facility] [address] [address] [address] Chhaya De La Vega AST [Catalytic activity/Vol] 18 U/L Normal 17-59 [facility] Comment on above: Performed By: #### C [id number] #### [facility] [address] [address] [address] Chhaya De La Vega Bilirubin [Mass/Vol] 0.7 mg/dL Normal 0.2-1.3 [facility] Comment on above: Performed By: #### C [id number] #### [facility] [address] [address] [address] Chhaya De La Vega Calcium [Mass/Vol] 11.2 mg/dL Critically high 8.4-10.2 [facility] Comment on above: Performed By: #### C [id number] #### [facility] [address] [address] [address] Chhaya De La Vega Chloride [Moles/Vol] 98 mmol/L Normal 98-107 [facility] Comment on above: Performed By: #### C [id number] #### [facility] [address] [address] [address] Chhaya De La Vega CO2 [Moles/Vol] 28.3 mmol/L Normal 22.0-30.0 [facility] Comment on above: Performed By: #### C [id number] #### [facility] [address] [address] [address] Chhaya De La Vega Creatinine [Mass/Vol] 2.24 mg/dL Critically high 0.66-1.25 [facility] Comment on above: Performed By: #### C [id number] #### [facility] [address] [address] [address] Chhaya De La Vega EGFR-AF BELARUSIAN 35 mL/min/1.73m2 Critically low >=60 [facility] Comment on above: Performed By: #### C [id number] #### [facility] [address] [address] [address] Chhaya D eLa Vega EGFR-NON AF BELARUSIAN 29 mL/min/1.73m2 Critically low >=60 [facility] Comment on above: Performed By: #### C [id number] #### [facility] [address] [address] [address] Chhaya De La Vega Globulin (S) [Mass/Vol] 5.2 g/dL Normal [facility] Comment on above: Performed By: #### C [id number] #### [facility] [address] [address] [address] Chhaya De La Vega Glucose [Mass/Vol] 161 mg/dL Critically high 74-106 [facility] Comment on above: Performed By: #### C [id number] #### [facility] [address] [address] [address] Chhaya De La Vega Potassium [Moles/Vol] 4.5 mmol/L Normal 3.4-5.0 [facility] Comment on above: Performed By: #### C [id number] #### [facility] [address] [place] [address] Dr. Chhaya De La Vega Protein [Mass/Vol] 9.9 g/dL Critically high 6.1-8.2 [facility] Comment on above: Performed By: #### C [id number] #### [facility] [address] [place] [address] Dr. Chhaya De La Vega Sodium [Moles/Vol] 137 mmol/L Normal 137-145 [facility] Comment on above: Performed By: #### C [id number] #### [facility] [address] [place] [address] Dr. Chhaya De La Vega Urea nitrogen [Mass/Vol] 22.0 mg/dL Critically high 9.0-20.0 [facility] Comment on above: Performed By: #### C [id number] #### [facility] [address] [place] [address] Dr. Chhaya De La Vega Urea nitrogen/Creatinine [Mass ratio] 9.8 mg/mg Normal [facility] Comment on above: Performed By: #### C [id number] #### [facility] [address] [place] [address] Dr. Chhaya De La Vega PROTIMEon 02-02-2021 INR Coag (PPP) [Relative time] 1.03 {INR} Normal [facility] Comment on above: Performed By: #### C [id number] #### [facility] [address] [place] [address] Dr. Chhaya De La Vega INR GUIDELINES SEE BELOW Normal [facility] Comment on above: Result Comment: GIOVANNY RED INR: 2.0 - 3.0 CONDITIONS NOT LISTED BELOW 2.5 - 3.5 FOR PROSTHETIC HEART VALVE REPLACEMENT 2.5 - 3.5 RECURRENT THROMBOSIS Performed By: #### C [id number] #### [facility] [address] [place] [address] Dr. Chhaya De La Vega PT Coag (PPP) [Time] 11.2 s Normal 9.0-11.6 [facility] Comment on above: Performed By: #### C [id number] #### [facility] [address] [place] [address] Dr. Chhaya De La Vega PTTon 02-02-2021 aPTT Coag (Bld) [Time] 28.7 s Normal 22.3-36.2 [facility] Comment on above: Performed By: #### C [id number] #### [facility] [address] [place] [address] Dr. Chhaya De La Vega RESPIRATORY PANEL PLUSon Adenovirus Not detected Normal NOT DETECTED [facility] Comment on above: Performed By: #### R SPLUS #### [facility] [address] [place] [address] Niharika Xochitl B. Parapertusis Not detected Normal NOT DETECTED [facility] Comment on above: Performed By: #### R SPLUS #### [facility] [address] [place] [address] Niharika Xochitl B. Pertussis Not detected Normal NOT DETECTED [facility] Comment on above: Performed By: #### R SPLUS #### [facility] [address] [place] [address] Niharika Xochitl Chlamydia Pneumoniae Not detected Normal NOT DETECTED [facility] Comment on above: Performed By: #### R SPLUS #### [facility] [address] [place] [address] Niharika Xochitl Coronavirus 229E Not detected Normal NOT DETECTED [facility] Comment on above: Performed By: #### R SPLUS #### [facility] [address] [place] [address] Niharika Xochitl Coronavirus HKU1 Not detected Normal NOT DETECTED [facility] Comment on above: Performed By: #### R SPLUS #### [facility] [address] [place] [address] Niharika Xochitl Coronavirus NL63 Not detected Normal NOT DETECTED [facility] Comment on above: Performed By: #### R SPLUS #### [facility] [address] [place] [address] Niharika Xochitl Coronavirus OC43 Not detected Normal NOT DETECTED [facility] Comment on above: Performed By: #### R SPLUS #### [facility] [address] [place] [address] Niharika Xochitl Influenza A H1 2009 Not detected Normal NOT DETECTED [facility] Comment on above: Performed By: #### R SPLUS #### [facility] [address] [place] [address] Niharika Xochitl Influenza B Not detected Normal NOT DETECTED [facility] Comment on above: Performed By: #### R SPLUS #### [facility] [address] [place] [address] Niharika Xochitl Metapneumovirus Not detected Normal NOT DETECTED [facility] Comment on above: Performed By: #### R SPLUS #### [facility] [address] [place] [address] Niharika Xochitl Mycoplas. Pneumoniae Not detected Normal NOT DETECTED [facility] Comment on above: Performed By: #### R SPLUS #### [facility] [address] [place] [address] Niharika Xochitl Parainfluenza 1 Not detected Normal NOT DETECTED [facility] Comment on above: Performed By: #### R SPLUS #### [facility] [address] [place] [address] Niharika Xochitl Parainfluenza 2 Not detected Normal NOT DETECTED [facility] Comment on above: Performed By: #### R SPLUS #### [facility] [address] [place] [address] Niharika Xochitl Parainfluenza 3 Not detected Normal NOT DETECTED [facility] Comment on above: Performed By: #### R SPLUS #### [facility] [address] [place] [address] Niharika Xochitl Parainfluenza 4 Not detected Normal NOT DETECTED [facility] Comment on above: Performed By: #### R SPLUS #### [facility] [address] [place] [address] Niharika Xochitl Rhino/Enterovirus Not detected Normal NOT DETECTED [facility] Comment on above: Performed By: #### R SPLUS #### [facility] [address] [place] [address] Niharika Xochitl RP2 Header 1 RESPIRATORY PANEL: VIRUSES Normal [facility] Comment on above: Performed By: #### R SPLUS #### [facility] [address] [place] [address] Niharika Xochitl RP2 Header 2 RESPIRATORY PANEL: BACTERIA Normal [facility] Comment on above: Performed By: #### R SPLUS #### [facility] [address] [place] [address] Niharika Leung RP2 Header 4 EUA SEE BELOW Normal [facility] Comment on above: Result Comment: This test is not yet approved or cleared by the [place] FDA. When there are no FDA-approved or cleared tests available, and other criteria are met, FDA can make tests available under an emergency access mechanism called an Emergency Use Authorization (EUA). The EUA for this test is supported by the Admissions Evaluator of Health and Human Service?s (HHS?s) declaration [...] used). Performed By: #### R SPLUS #### [facility] [address] [place] [address] Niharika Leung RSV Not detected Normal NOT DETECTED [facility] Comment on above: Performed By: #### R SPLUS #### [facility] [address] [place] [address] Niharika Xochitl SARS-CoV-2 (COVID-19) RNA MICHELLE+probe Ql (Unsp spec) Not detected Normal NOT DETECTED [facility] Comment on above: Performed By: #### R SPLUS #### [facility] [address] [place] [address] Niharika Leung XR ABD FLAT UP_PA Jeremy [...] HERBIE CASTELLANOS Date: 2021-02-02 00:21 Normal [facility] Coding Summary.on 04-17-2020 Coding Summary. CODING DATE: 020 FINAL [facility] STATUS: Home (Routine DC) PAYOR: Medicare ADMIT DX: REASON FOR VISIT DX: H54.7 Unspecified visual loss FINAL DX: PRINCIPAL: H33.002 Unspecified retinal detachment with retinal break, left eye SECONDARY: I10 Essential (primary) hypertension E78.00 Pure hypercholesterolemia, unspecified J44.9 Chronic obstructive pulmonary disease, unspecified H91.90 Unspecified hearing loss, unspecified ear Z79.82 longterm (current) use of aspirin Z86.73 Personal history [...] Saved: 04/17/2020 07:01 am Normal [facility] ED Note-Physicianon 04-15-20 20 ED Note-Physician Basic Information Time Seen: Link Conrad MD 04/11/2020 20:56 Chief Complaint pt woke up this am with loss of vision in left eye, pt has no history of vision loss, pt has no prior medical concern, was seen in [place] er ws sent here by dr. warren History of Present Illness Patient presents with a painless vision loss onset this morning. Patient was seen at [facility] emergency room. The ER physician, Dr. Char [...] detachment and made arrangements with the [facility] for the patient to be seen at 9:30 AM at their [place] office. I confirmed the patient's instructions with [...] 9:30 AM on Monday with the [facility] at their [place] office. In 2 days 04/13/2020 EDT Additional [...] examination was conducted by the ER physician. [facility] Comment on above: Result Comment: [...] was seen in the Emergency Room at [facility], however there was no availability for on-call doctors. He also is a patient of Dr. Aurelio Condon, however they did not return any calls from the Emergency Room physician or the patient so the patient was transferred to [facility] for evaluation. PAST OCULAR HISTORY: [...] get in touch with [facility] and they did not have somebody in the Operating Room on Monday so, therefore, this will be evaluated on Monday at 9:30 a.m. in their [place] office. Dr. Clemons will be seeing him. [...] given. Gianluca Warren D.O. gls Dictated: 04/11/2020 #[id number] Typed: 04/13/2020 #[id number] cc: MD Dick Barry M.D. Jonathan D. Zahler, D.O. [facility] Comment on above: Result Comment: Elec tronically Signed By: Gianluca Warren DO\.br\Date and Time Signed: 04/13/20 16:36 EDT Discharge Instructionson Discharge Instructions [id number]:127 Normal [facility] ED Clinical Summaryon 2019 ED Clinical Summary (Inserted Image. Diamond ble to display) [address] [address] ED Clinical Summary Person Information Name[facility] Age: 69 Years : 1950 Sex: Male Language: Serbian PCP: JUSTIN MARTINEZ MD Marital Status: Visit [...] 04/11/2020 23:00:43 04/11/2020 23:00:43 04/11/2020 23:00:43 ADDRESS: [address] [place] [id number] PHYS DOC NOTES: MEDICAL INFORMATION: Prescriptions Given: PATIENT EDUCATION INFORMATION: Instructions: Retinal Detachment, Care After Follow up: With: Address: When: You have an appointment at 9:30 AM on Monday with the [facility] at their [place] office. In 2 days 04/13/2020 DIAGNOSIS: Retinal detachment Normal [facility] ED Patient Education Noteon 04-12-2020 ED Patient [...] Keep appointments as directed. ? Only take ojso-iqp-ytvfolh or prescription medicines for pain, discomfort, or [...] Document Reviewed: 08/28/2008 ExitCare? Patient Information ?2015 [employer], [facility]. This information is not intended to replace advice given to you by your health care provider. Make sure you discuss any questions you have with your health care provider. Normal [facility] ED Patient Summaryon 020 ED Patient Summary (Inserted Image. Diamond ble to display) [address] [address] Patient Discharge Instructions Person Information Name: CHAR ALATORRE Age: 69 Years Arrival Date: 04/11/2020 20:42:11 Discharge Diagnosis: Retinal detachment Primary Care Physician: JUSTIN MARTINEZ MD Provider Information Primary Provider: Link Conrad MD Advanced Inside Sales Associate:None The exam and treatment you received in the Emergency Department were for an urgent problem and are not intended as complete care. It is important that you follow up with a doctor, nurse practitioner, or physician?s delinquent tax collector assistant for ongoing care. If your symptoms [...] AM on Monday with the [facility] at their [place] office. In 2 days 04/13/2020 In the event that this physician does not participate in your insurance network, please consult with your insurance company to find a nearby participating provider. Patient Education Materials: Retinal Detachment, Care After A MESSAGE TO ALL PATIENTS REGARDING OPIOIDS PRESCRIPTION OPIOIDS: WHAT YOU NEED TO KNOW Prescription opioids can be used to help relieve dgiyrobq-jy-vkeqyb pain and are often prescribed following a [...] be struggling with addiction, tell your health customer care representative and ask for guidance or call [employer]?S National Helpline at 2-609-722-TUXG. v Source: [place] Department of Health and Human Services/Center for Disease Control & Prevention [facility] Medications Given: Medication Dose Route No medications found. Medication Information: Comment: Pharmacy Information: Thank you for choosing [facility] Patient Education Materials: Retinal Detachment, Care After [...] Keep appointments as directed. ? Only take caym-www-ycscprk or prescription medicines for pain, discomfort, or [...] Document Reviewed: 08/28/2008 ExitCare? Patient Information ?2014 [employer]. This information is not intended to replace [...] AM on Monday with the [facility] at their [place] office. In 2 days 04/13/2020 Patient Signature __ Date Clinician/Nurse Signature Date 04/11/2020 23:00:45 [facility] Progress Note-Nurseon 2019 Progress Note-Nurse pt verbalized understanding of discharge instructions et follow up appointment on Monday. [facility] Consent for Treatmenton 03-17 Consent for Treatment [id number]:127 [facility] Vital Signs Date Time Vital Sign Value Performing Clinician Facility 11-21-2024 00:01-0500 Heart rate 85 /min Justin Martinez MD Work Phone: [facility] 11-21-2024 00:01-0500 Inhaled oxygen concentration 30 % Justin Martinez MD Work Phone: [facility] 11-21-2024 00:01-0500 Respiratory rate 16 /min Justin Martinez MD Work Phone: [facility] [facility] [place] 11-21-2024 00:01-0500 SaO2% (BldA) [Mass fraction] 95 % Justin Martinez MD Work Phone: [facility] [place] 11-20-2024 20:00-0500 Body temperature 97.6 [degF] Justin Martinez MD Work Phone: [facility] [place] 11-20-2024 20:00-0500 Diastolic blood pressure 73 mm[Hg] Justin Martinez MD Work Phone: [facility] [place] 11-20-2024 20:00-0500 Systolic blood pressure 113 mm[Hg] Justin Martinez MD Work Phone: [facility] [place] 11-20-2024 16:07-0500 Body height 182.88 cm Justin Martinez MD Work Phone: [facility] [place] 11-20-2024 16:07-0500 Body weight 84.6 kg Justin Martinez MD Work Phone: [facility] [place] 11-20-2024 10:02-0500 Body height 182.88 cm Justin Martinez MD Work Phone: [facility] [place] 11-20-2024 10:02-0500 Body mass index (BMI) [Ratio] 25.6 kg/m2 Justin Martinez MD Work Phone: [facility] [place] 11-20-2024 10:02-0500 Body weight 85.72 kg Justin Martinez MD Work Phone: [facility] [place] 11-20-2024 10:02-0500 Diastolic blood pressure 62 mm[Hg] Justin Martinez MD Work Phone: [facility] [place] 11-20-2024 10:02-0500 Heart rate 82 /min Justin Martinez MD Work Phone: [facility] [place] 11-20-2024 10:02-0500 Inhaled oxygen flow rate 2 L/min Justin Martinez MD Work Phone: [facility] [place] 11-20-2024 10:02-0500 Respiratory rate 18 /min Justin Martinez MD Work Phone: [facility] [place] 11-20-2024 10:02-0500 SaO2% (BldA) [Mass fraction] 91 % Justin Martinez MD Work Phone: [facility] [place] 11-20-2024 10:02-0500 Systolic blood pressure 94 mm[Hg] Justin Martinez MD Work Phone: [facility] [place] 10-28-2024 11:11-0500 Body height 182.88 cm Justin Martinez MD Work Phone: [facility] [place] 10-28-2024 11:11-0500 Body mass index (BMI) [Ratio] 24.3 kg/m2 Justin Martinez MD Work Phone: [facility] [place] 10-28-2024 11:11-0500 Body weight 81.19 kg Justin Martinez MD Work Phone: [facility] [place] 10-28-2024 11:11-0500 Diastolic blood pressure 60 mm[Hg] Justin Martinez MD Work Phone: [facility] [place] 10-28-2024 11:11-0500 Heart rate 89 /min Justin Martinez MD Work Phone: [facility] [place] 10-28-2024 11:11-0500 Inhaled oxygen flow rate 2 L/min Justin Martinez MD Work Phone: [facility] [place] 10-28-2024 11:11-0500 SaO2% (BldA) [Mass fraction] 100 % Justin Martinez MD Work Phone: [facility] [place] 10-28-2024 11:11-0500 Systolic blood pressure 111 mm[Hg] Justin Martinez MD Work Phone: [facility] [place] 10-21-2024 11:06-0500 Body height 180.3 cm Justin Martinez MD Work Phone: [facility] 10-21-2024 11:06-0500 Body mass index (BMI) [Ratio] 24.83 kg/m2 Justin Martinez MD Work Phone: [facility] 10-21-2024 11:06-0500 Body weight 80.74 kg Justin Martinez MD Work Phone: [facility] 10-21-2024 11:06-0500 Diastolic blood pressure 62 mm[Hg] Justin Martinez MD Work Phone: [facility] 10-21-2024 11:06-0500 Heart rate 78 /min Justin Martinez MD Work Phone: [facility] 10-21-2024 11:06-0500 SaO2% (BldA) [Mass fraction] 97 % Justin Martinez MD Work Phone: [facility] 10-21-2024 11:06-0500 Systolic blood pressure 88 mm[Hg] Justin Martinez MD Work Phone: [facility] 10-20-2024 11:51-0500 Diastolic blood pressure 70 mm[Hg] Justin Martinez MD Work Phone: [facility] [place] 10-20-2024 11:51-0500 Heart rate 88 /min Justin Martinez MD Work Phone: [facility] [place] 10-20-2024 11:51-0500 Respiratory rate 18 /min Justin Martinez MD Work Phone: [facility] [place] 10-20-2024 11:51-0500 SaO2% (BldA) [Mass fraction] 93 % Justin Martinez MD Work Phone: [facility] [place] 10-20-2024 11:51-0500 Systolic blood pressure 102 mm[Hg] Justin Martinez MD Work Phone: [facility] [place] 10-20-2024 11:43-0500 Body height 182.88 cm Justin Martinez MD Work Phone: [facility] [place] 10-20-2024 08:39-0500 Inhaled oxygen flow rate 2 L/min Justin Martinez MD Work Phone: [facility] [place] 10-20-2024 08:29-0500 Body temperature 97.5 [degF] Justin Martinez MD Work Phone: [facility] [place] 10-20-2024 05:47-0500 Body weight 77.5 kg Justin Martinez MD Work Phone: [facility] [place] 10-19-2024 16:42-0500 Diastolic blood pressure 65 mm[Hg] Justin Martinez MD Work Phone: [facility] [place] 10-19-2024 16:42-0500 Heart rate 78 /min Justin Martinez MD Work Phone: [facility] [place] 10-19-2024 16:42-0500 Respiratory rate 18 /min Justin Martinez MD Work Phone: [facility] [place] 10-19-2024 16:42-0500 SaO2% (BldA) [Mass fraction] 96 % Justin Martinez MD Work Phone: [facility] [place] 10-19-2024 16:42-0500 Systolic blood pressure 133 mm[Hg] Justin Martinez MD Work Phone: [facility] [place] 10-19-2024 15:14-0500 Inhaled oxygen flow rate 2 L/min Justin Martinez MD Work Phone: [facility] [place] 10-19-2024 12:09-0500 Body height 182.88 cm Justin Martinez MD Work Phone: [facility] [place] 10-19-2024 12:09-0500 Body weight 81.5 kg Justin Martinez MD Work Phone: [facility] [place] 10-09-2024 14:35-0500 Diastolic blood pressure 63 mm[Hg] Justin Martinez MD Work Phone: [facility] [place] 10-09-2024 14:35-0500 Heart rate 81 /min Justin Martinez MD Work Phone: [facility] [place] 10-09-2024 14:35-0500 Respiratory rate 24 /min Justin Martinez MD Work Phone: [facility] [place] 10-09-2024 14:35-0500 SaO2% (BldA) [Mass fraction] 100 % Justin Martinez MD Work Phone: [facility] [place] 10-09-2024 14:35-0500 Systolic blood pressure 127 mm[Hg] Justin Martinez MD Work Phone: [facility] [place] 10-09-2024 13:34-0500 Inhaled oxygen flow rate 2 L/min Justin Martinez MD Work Phone: [facility] [place] 10-09-2024 12:06-0500 Body height 182.88 cm Justin Martinez MD Work Phone: [facility] [place] 10-09-2024 12:06-0500 Body temperature 98.3 [degF] Justin Martinez MD Work Phone: [facility] [place] 10-09-2024 12:06-0500 Body weight 82.5 kg Justin Martinez MD Work Phone: [facility] [place] 09-16-2024 10:30-0500 Body height 182.88 cm Justin Martinez MD Work Phone: [facility] [place] 09-16-2024 10:30-0500 Body mass index (BMI) [Ratio] 24.7 kg/m2 Justin Martinez MD Work Phone: [facility] [place] 09-16-2024 10:30-0500 Body temperature 96.5 [degF] Justin Martinez MD Work Phone: [facility] [place] 09-16-2024 10:30-0500 Body weight 82.55 kg Justin Martinez MD Work Phone: [facility] [place] 09-16-2024 10:30-0500 Diastolic blood pressure 72 mm[Hg] Justin Martinez MD Work Phone: [facility] [place] 09-16-2024 10:30-0500 Heart rate 76 /min Justin Martinez MD Work Phone: [facility] [place] 09-16-2024 10:30-0500 Respiratory rate 16 /min Justin Martinez MD Work Phone: [facility] [place] 09-16-2024 10:30-0500 SaO2% (BldA) [Mass fraction] 97 % Justin Martinez MD Work Phone: [facility] [place] 09-16-2024 10:30-0500 Systolic blood pressure 92 mm[Hg] Justin Martinez MD Work Phone: [facility] [place] 09-03-2024 09:30-0500 Body height 182.88 cm [facility] 09-03-2024 09:30-0500 Body mass index (BMI) [Ratio] 24.7 kg/m2 [facility] [place] 09-03-2024 09:30-0500 Body temperature 96.4 [degF] [facility] 09-03-2024 09:30-0500 Body weight 82.55 kg [facility] 09-03-2024 09:30-0500 Diastolic blood pressure 69 mm[Hg] [facility] [place] 09-03-2024 09:30-0500 Heart rate 76 /min [facility] 09-03-2024 09:30-0500 Respiratory rate 20 /min [facility] 09-03-2024 09:30-0500 SaO2% (BldA) [Mass fraction] 96 % [facility] [place] 09-03-2024 09:30-0500 Systolic blood pressure 112 mm[Hg] [facility] [place] 07-16-2024 11:06-0400 Body height 180.3 cm Justin Martinez MD Work Phone: [facility] 07-16-2024 11:06-0400 Body mass index (BMI) [Ratio] 26.22 kg/m2 Justin Martinez MD Work Phone: [facility] 07-16-2024 11:06-0400 Body weight 85.28 kg Justin Martinez MD Work Phone: [facility] 07-16-2024 11:06-0400 Diastolic blood pressure 78 mm[Hg] Justin Martinez MD Work Phone: [facility] 07-16-2024 11:06-0400 Heart rate 80 /min Justin Martinez MD Work Phone: [facility] 07-16-2024 11:06-0400 SaO2% (BldA) [Mass fraction] 96 % Justin Martinez MD Work Phone: [facility] 07-16-2024 11:06-0400 Systolic blood pressure 110 mm[Hg] Justin Martinez MD Work Phone: [facility] 07-03-2024 10:24-0400 Body height 182.88 cm [facility] 07-03-2024 10:24-0400 Body mass index (BMI) [Ratio] 25.6 kg/m2 [facility] [place] 07-03-2024 10:24-0400 Body temperature 97.4 [degF] [facility] 07-03-2024 10:24-0400 Body weight 85.72 kg [facility] 07-03-2024 10:24-0400 Diastolic blood pressure 62 mm[Hg] [facility] [place] 07-03-2024 10:24-0400 Heart rate 69 /min [facility] 07-03-2024 10:24-0400 Respiratory rate 20 /min [facility] 07-03-2024 10:24-0400 SaO2% (BldA) [Mass fraction] 97 % [facility] [place] 07-03-2024 10:24-0400 Systolic blood pressure 97 mm[Hg] [facility] [place] 06-06-2024 11:26-0400 Body height 182.88 cm [facility] 06-06-2024 11:26-0400 Body mass index (BMI) [Ratio] 26.6 kg/m2 [facility] [place] 06-06-2024 11:26-0400 Body temperature 97.7 [degF] [facility] 06-06-2024 11:26-0400 Body weight 88.9 kg [facility] 06-06-2024 11:26-0400 Diastolic blood pressure 59 mm[Hg] [facility] [place] 06-06-2024 11:26-0400 Heart rate 83 /min [facility] 06-06-2024 11:26-0400 Respiratory rate 18 /min [facility] 06-06-2024 11:26-0400 SaO2% (BldA) [Mass fraction] 98 % [facility] [place] 06-06-2024 11:26-0400 Systolic blood pressure 87 mm[Hg] [facility] [place] 06-04-2024 10:25-0400 Body height 180.3 cm Justin Martinez MD Work Phone: [facility] 06-04-2024 10:25-0400 Body mass index (BMI) [Ratio] 27.34 kg/m2 Justin Martinez MD Work Phone: [facility] 06-04-2024 10:25-0400 Body weight 88.91 kg Justin Martinez MD Work Phone: [facility] 06-04-2024 10:25-0400 Diastolic blood pressure 88 mm[Hg] Justin Martinez MD Work Phone: [facility] 06-04-2024 10:25-0400 Heart rate 91 /min Justin Martinez MD Work Phone: [facility] 06-04-2024 10:25-0400 SaO2% (BldA) [Mass fraction] 94 % Justin Martinez MD Work Phone: [facility] 06-04-2024 10:25-0400 Systolic blood pressure 126 mm[Hg] Justin Martinez MD Work Phone: [facility] 02-22-2024 11:[id number] Body height 182.88 cm MD Justin Martinez Work Phone: [facility] [place] 02-22-2024 11:23-0400 Body mass index (BMI) [Ratio] 28.7 kg/m2 MD Justin Martinez Work Phone: [facility] [place] 02-22-2024 11:23-0400 Body temperature 96.2 [degF] MD Justin Martinez Work Phone: [facility] [place] 02-22-2024 11:23-0400 Body weight 96.16 kg MD Justin Martinez Work Phone: [facility] [place] 02-22-2024 11:23-0400 Diastolic blood pressure 70 mm[Hg] MD Justin Martinez Work Phone: [facility] [place] 02-22-2024 11:23-0400 Heart rate 95 /min MD Justin Martinez Work Phone: [facility] [place] 02-22-2024 11:23-0400 Respiratory rate 18 /min MD Justin Martinez Work Phone: [facility] [place] 02-22-2024 11:23-0400 SaO2% (BldA) [Mass fraction] 98 % MD Justin Martinez Work Phone: [facility] [place] 02-22-2024 11:23-0400 Systolic blood pressure 112 mm[Hg] MD Justin Martinez Work Phone: [facility] [place] 01-25-2024 16:01-0400 Diastolic blood pressure 84 mm[Hg] [facility] [place] 01-25-2024 16:01-0400 Heart rate 97 /min [facility] 01-25-2024 16:01-0400 SaO2% (BldA) [Mass fraction] 95 % [facility] [place] 01-25-2024 16:01-0400 Systolic blood pressure 120 mm[Hg] [facility] [place] 03-16-2023 10:20-0400 Body height 182.88 cm Magy Emiliano Other [employer] [facility] [employer] Other 03-16-2023 10:20-0400 Body mass index (BMI) [Ratio] 30.08 kg/m2 Magy Emiliano Other [employer] Other 03-16-2023 10:20-0400 Body temperature 96.1 [degF] Magy Emiliano Other [employer] Other 03-16-2023 10:20-0400 Body weight 100.61 kg Magy Emiliano Other [employer] Other 03-16-2023 10:20-0400 Diastolic blood pressure 50 mm[Hg] Magy Emiliano Other [employer] Other 03-16-2023 10:20-0400 Respiratory rate 18 /min Magy Emiliano Other [employer] Other 03-16-2023 10:20-0400 SaO2% (BldA) [Mass fraction] 92 % Magy Emiliano Other [employer] Other 03-16-2023 10:20-0400 Systolic blood pressure 100 mm[Hg] Magy Emiliano Other [employer] Other 06-01-2022 14:39-0400 Body height 182.88 cm Zhilian Zhaopin Work Phone: [facility] [employer] 250 DO Work Phone: 06-01-2022 14:39-0400 Body mass index (BMI) [Ratio] 29.97 kg/m2 [employer] Work Phone: [facility] [employer] 250 DO Work Phone: 06-01-2022 14:39-0400 Body surface area Derived from formula 2.22 m2 [employer] Work Phone: [facility] [employer] 250 DO Work Phone: 06-01-2022 14:39-0400 Body weight 100.25 kg [employer] Work Phone: [facility] [employer] 250 DO Work Phone: 06-01-2022 14:39-0400 Diastolic blood pressure 64 mm[Hg] Justin Tiwari Mascot Work Phone: [facility] [employer] 250 DO Work Phone: 06-01-2022 14:39-0400 Heart rate 83 /min Rugmalinda Tiwari Juan Work Phone: [facility] [employer] 250 DO Work Phone: 06-01-2022 14:39-0400 Systolic blood pressure 130 mm[Hg] Rugen Karie Mascot Work Phone: [facility] [employer] [place] 250 DO Work Phone: 04-21-2022 11:20-0400 Body height 182.88 cm Magy Emiliano Other [employer] Other 04-21-2022 11:20-0400 Body mass index (BMI) [Ratio] 29.45 kg/m2 Magy Emiliano Other [employer] Other 04-21-2022 11:20-0400 Body temperature 96.5 [degF] Magy Emiliano Other [employer] Other 04-21-2022 11:20-0400 Body weight 98.52 kg Magy Emiliano Other [employer] Other 04-21-2022 11:20-0400 Diastolic blood pressure 60 mm[Hg] Magy Emiliano Other [employer] Other 04-21-2022 11:20-0400 Respiratory rate 18 /min Magy Emiliano Other [employer] Other 04-21-2022 11:20-0400 SaO2% (BldA) [Mass fraction] 94 % Magy Emiliano Other [employer] [facility] [employer] Other 04-21-2022 11:20-0400 Systolic blood pressure 120 mm[Hg] Magy Giordanodir Other [facility] [employer] Other Encounters Encounter Date Encounter Type Care Provider Facility Start: 11-20-2024 Non-patient / Non-visit Justin Martinez MD Work Phone: [facility] Work Phone: Start: 11-20-2024 Evaluation and manag ement of inpatient Justin Martinez MD Work Phone: [facility] [place] [facility] Work Phone: Start: 11-20-2024 End: 11-20-2024 ambulatory Justin Martinez MD Work Phone: [facility] Work Phone: Start: 11-20-2024 End: 11-20-2024 Patient encounter procedure Justin Martinez MD Work Phone: [facility] Cardiology Work Phone: Start: 11-14-2024 End: 11-21-2024 [facility] Comment on above: Hospital Follow-up Start: 11-12-2024 End: 11-12-2024 Clinisync Result Encounter Generic External Data Provider [facility] External Department Unsolicited Start: 11-12-2024 End: 11-12-2024 Clinisync Result Encounter Generic External Data Provider [facility] External Department Unsolicited Start: 11-12-2024 End: 11-12-2024 Telephone encounter Justin Martinez MD Work Phone: [facility] Start: 11-09-2024 ambulatory [facility] Start: 11-08-2024 End: 11-15-2024 Emergency department patient visit [facility] Start: 11-07-2024 Non-patient / Non-visit Justin Martinez MD Work Phone: [facility] Work Phone: Start: 10-28-2024 End: 10-28-2024 Patient encounter procedure Justin Martinez MD Work Phone: [facility] Work Phone: Start: 10-28-2024 End: 10-28-2024 ambulatory Justin Martinez MD Work Phone: [facility] Work Phone: Start: 10-28-2024 End: 10-28-2024 ambulatory Justin Martinez MD Work Phone: [facility] Work Phone: Start: 10-28-2024 End: 10-28-2024 Patient encounter procedure Justin Martinez MD Work Phone: [facility] Work Phone: Start: 10-21-2024 End: 10-21-2024 Transitional care manage srvc 14 day discharge Justin Martinez MD Work Phone: [facility] Comment on above: 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, 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) ([facility]/HCC) (Primary Dx); CKD stage 3b, GFR 30-44 ml/min ([facility]); Anemia in other chronic diseases classified elsewhere; CHF (congestive heart failure), NYHA class IV, acute on chronic, diastolic (CMS/HCC) Start: 10-21-2024 End: 10-21-2024 ambulatory JUSTIN MARTINEZ Not Available Start: 10-19-2024 End: 10-20-2024 Evaluation and management of inpatient Justin Martinez MD Work Phone: [facility] [place] [facility] Work Phone: Start: 10-09-2024 End: 10-09-2024 Emergency department patient visit Justin Martinez MD Work Phone: [facility] Work Phone: Start: 09-16-2024 End: 09-16-2024 Patient encounter procedure Justin Martinez MD Work Phone: [facility] Work Phone: Start: 09-03-2024 End: 09-03-2024 Patient encounter procedure Justin Martinez MD Work Phone: [facility] [place] Work Phone: Start: 09-03-2024 End: 09-03-2024 ambulatory Justin Martinez MD Work Phone: [facility] Work Phone: Start: 09-03-2024 End: 09-03-2024 ambulatory [facility] Work Phone: Start: 09-03-2024 End: 09-03-2024 Patient encounter procedure [facility] Work Phone: Start: 08-09-2024 End: 08-10-2024 Refill Justin Martinez MD Work Phone: [facility] Comment on above: Atherosclerosis of n ative coronary artery of [place] heart without angina pectoris (CMS/HCC) (Primary Dx); Essential hypertension (CMS/HCC) Start: 07-16-2024 End: 07-16-2024 Office outpatient visit 25 minutes Justin Martinez MD Work Phone: [facility] Comment on above: 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, 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) (CMS/HCC) (Primary Dx); Atherosclerosis of [place] coronary artery of [place] heart without angina pectoris (CMS/HCC); Pulmonary hypertension (CMS/HCC); Coronary artery disease due to lipid rich plaque (CMS/HCC); Congestive heart failure due to hypertension (CMS/HCC) Start: 07-16-2024 End: 07-16-2024 ambulatory JUSTIN MARTINEZ Not Available Start: 07-03-2024 End: 07-03-2024 ambulatory [facility] Work Phone: Start: 07-03-2024 End: 07-03-2024 Patient encounter procedure [facility] Pulmonary Disease Work Phone: Start: 06-06-2024 End: 06-06-2024 ambulatory [facility] Work Phone: Start: 06-06-2024 End: 06-06-2024 Patient encounter procedure [facility] Nephrology Work Phone: Start: 06-04-2024 End: 06-04-2024 Office outpatient visit 25 minutes Justin Martinez MD Work Phone: [facility] Comment on above: Pulmonary hypertensi on (CMS/HCC) (Primary Dx); Coronary artery disease due to lipid rich plaque (CMS/HCC); Congestive heart failure due to hypertension (CMS/HCC) Start: 06-04-2024 End: 06-04-2024 ambulatory JUSTIN MARTINEZ Not Available Start: 06-03-2024 Non-patient / Non-visit [facility] Work Phone: Start: 05-12-2024 End: 05-13-2024 Non-patient / Non-visit [facility] Work Phone: Start: 03-25-2024 End: 03-25-2024 ambulatory JUSTIN MARTINEZ Not Available Start: 03-06-2024 End: 03-06-2024 Patient encounter procedure MD Justin Martinez Work Phone: [facility] [place] Work Phone: Start: 03-06-2024 End: 03-06-2024 ambulatory MD Justin Martinez Work Phone: [facility] Work Phone: Start: 02-27-2024 End: 02-27-2024 ambulatory JUSTIN MARTINEZ Not Available Start: 02-22-2024 End: 02-22-2024 ambulatory MD Justin Martinez Work Phone: [facility] Work Phone: Start: 02-22-2024 End: 02-22-2024 Patient encounter procedure MD Justin Martinez Work Phone: [facility] [place] Work Phone: Start: 02-20-2024 End: 02-20-2024 ambulatory JUSTIN MARTINEZ Not Available Start: 02-15-2024 End: 02-15-2024 Patient encounter procedure MD Justin Martinez Work Phone: [facility] [place] Work Phone: Start: 02-15-2024 End: 02-15-2024 ambulatory MD Justin Martinez Work Phone: [facility] Work Phone: Start: 02-14-2024 End: 02-14-2024 Patient encounter procedure MD Justin Martinez Work Phone: [facility] [place] Work Phone: Start: 02-14-2024 End: 02-14-2024 ambulatory Justin Martinez Facility:[facility] Start: 01-26-2024 End: 01-26-2024 Patient encounter procedure MD Justin Martinez Work Phone: [facility] [place] Work Phone: Start: 01-26-2024 End: 01-26-2024 ambulatory MD Jusitn Martinez Work Phone: [facility] Work Phone: Start: 01-25-2024 End: 01-25-2024 ambulatory [facility] Work Phone: Start: 01-25-2024 End: 01-25-2024 Patient encounter procedure [facility] Work Phone: Start: 01-17-2024 Non-patient / Non-visit MD Brandon Martinez Work Phone: [facility] Professional [employer] Work Phone: Start: 01-04-2024 End: 01-04-2024 ambulatory JUSTIN MARTINEZ Not Available Start: 06-13-2023 Assay of hemosiderin , garret Martinez MD Work Phone: [facility] Start: 03-16-2023 End: 03-16-2023 ambulatory Magy Emiliano Other [facility] [employer] Other Start: 03-16-2023 Office outpatient vi sit 25 minutes Magy Emiliano [facility] [place] Start: 06-01-2022 Office consultation new/estab patient 60 min Justin Martinez Work Phone: Merged with [facility] [place] [facility] DO Work Phone: Start: 06-01-2022 ambulatory Rashaad Stephens II Facility: Start: 05-30-2022 ambulatory Rashaad Stephens II Faci lity:[facility] Start: 04-21-2022 End: 04-21-2022 ambulatory Magy Emiliano Other [facility] [employer] Other Start: 04-21-2022 Office outpatient vi sit [...] Ald a Work Phone: Cholecystectomy Brandonen M Mascot Work Phone: Endarterectomy Rugen M Mascot Work Phone: Comment on above: Right carotid; [...] of retina for retinal detachment Rugen M Mascot Work Phone: Small intestine excision Rug en M Mascot Work Phone: Total colonoscopy Brandonen M Al da Work Phone: Comment on above: -; Plan of Treatment Date Care Activity Detail Author Start: 05-23-2029 DTaP,Tdap and Td Vac cines (2 - Td or Tdap) DTaP,Tdap and Td Vaccines (2 - Td or Tdap) [facility] [employer] Start: 11-30-2024 [facility] Start: 11-29-2024 [facility] Start: 11-28-2024 [facility] Start: 11-27-2024 [facility] Start: 11-26-2024 [facility] Start: 11-25-2024 End: 11-25-2024 Patient encounter procedure 11/25/2024 11:00 AM EST Office Visit [facility] [address] [facility] [address] [place] [address] Justin Martinez MD [address] [facility] [address] [place] [address] [facility] Start: 11-25-2024 [facility] Start: 11-24-2024 [facility] Start: 11-23-2024 [facility] Start: 11-22-2024 [facility] Start: 11-21-2024 [facility] Start: 11-20-2024 Patient referral to dietitian [facility] Start: 11-20-2024 [facility] Start: 11-20-2024 Hospital admission [facility] Start: 11-20-2024 Referral to stock room manager [facility] Start: 11-20-2024 Referral to aquatics instructor [facility] Start: 11-20-2024 [facility] Start: 11-20-2024 [facility] Start: 11-17-2024 Screening for malign ant neoplasm of colon [facility] Start: 11-14-2024 End: 11-14-2024 Patient encounter procedure 11/14/2024 1:15 PM EST Office Visit [facility] [address] [facility] [address] [place] [address] Justin Martinez MD [address] [facility] [address] [place] [address] [facility] Start: 11-09-2024 Pneumococcal Vaccine : 65+ Years (3 of 3 - PPSV23 or PCV20) Pneumococcal Vaccine: 65+ Years (3 of 3 - PPSV23 or PCV20) [facility] Comment on above: Postponed from 07/17 (Other Patient Reasons) Start: 10-21-2024 End: 10-21-2024 Patient encounter procedure 10/21/2024 11:00 AM EST Office Visit [facility] [address] [facility] [address] [place] [address] Justin Martinez MD [address] [facility] [address] [place] [address] [facility] Start: 10-20-2024 Administration of prophylactic treatment [facility] Start: 10-20-2024 End: 10-20-2024 [facility] Start: 10-19-2024 Hospital admission [facility] Start: 10-19-2024 [facility] Start: 06-27-2024 End: 06-27-2024 Patient encounter procedure 06/27/2024 1:15 PM EDT Office Visit [facility] [address] [facility] [address] [place] [address] Justin Martinez MD [address] [facility] [address] [place] [address] [facility] Start: 06-16-2024 COVID-19 Vaccine ( season) COVID-19 Vaccine ( season) [facility] Start: 06-16-2024 Influenza vaccination Influenz a Vaccine (#1) [facility] Start: 01-26-2024 [facility] Start: 01-26-2024 Immunofixation for Urine [facility] Start: 07-17-2020 Pneumococcal Vaccine : 65+ Years (3 of 3 - PPSV23 or PCV20) Pneumococcal Vaccine: 65+ Years (3 of 3 - PPSV23 or PCV20) [facility] Start: 12-16-2016 Fall Risk Screening Fall Risk Screen ing [facility] Start: 12-16-1969 Adult BMI Screening Adult BMI Screen ing [facility] Start: 1963 Depression Screening Depression Scre ening [facility] Start: 1963 Tobacco Screening Tobacco Screening [facility] Start: 1951 Screening for malign ant neoplasm of colon [facility] Albumin [Mass/volume ] in Serum or Plasma [facility] Albumin/Globulin ratio [facility] Anion gap measurement [facility] Antibody measurement [facility] Basophils [#/volume] in Blood by Automated count [facility] Basophils/100 leukoc ytes in Blood by Automated count [facility] Electrophoresis: [id number] [facility] Electrophoresis: [id number] [facility] Electrophoresis: beta-globulin [facility] Electrophoresis: yony ma globulin [facility] Eosinophils/100 leuk ocytes in Blood by Automated count [facility] Erythrocyte distribu tion width [Ratio] by Automated count [facility] Erythrocytes [#/volu me] in Blood [facility] Globulin [Mass/volum e] in Serum [facility] Hematocrit [Volume F raction] of Blood [facility] Hemoglobin [Mass/vol ume] in Blood [facility] Homogenous nuclear A b pattern [Titer] in Serum [facility] IgA [Mass/volume] in Serum or Plasma [facility] IgG [Mass/volume] in Serum or Plasma [facility] IgM [Mass/volume] in Serum or Plasma [facility] Immunofixation for Urine [facility] Iron binding capacit y [Mass/volume] in Serum or Plasma [facility] Iron saturation [Mas s Fraction] in Serum or Plasma [facility] [place] light chains.f ree [Mass/volume] in Serum [facility] [place] light chains.f ree [Mass/volume] in Serum [facility] [place] light chains.free/Lambda light chains.free [Mass Ratio] in Serum [facility] [place] light chains.free/Lambda light chains.free [Mass Ratio] in Serum [facility] Lambda light chains. free [Mass/volume] in Serum or Plasma [facility] Lambda light chains. free [Mass/volume] in Serum or Plasma [facility] Leukocytes [#/volume ] corrected for nucleated erythrocytes in Blood by Automated coun [facility] Leukocytes [#/volume ] in Blood [facility] Lymphocytes [#/volum e] in Blood by Automated count [facility] Lymphocytes/100 leuk ocytes in Blood by Automated count [facility] MCH [Entitic mass] b y Automated count [facility] MCHC [Mass/volume] b y Automated count [facility] MCV [Entitic volume] by Automated count [facility] Monocytes [#/volume] in Blood by Automated count [facility] Monocytes/100 leukoc ytes in Blood by Automated count [facility] Myeloperoxidase Ab [Units/volume] in Serum by Immunoassay [facility] Natriuretic peptide. B prohormone N-Terminal [Mass/volume] in Serum or Plasma [facility] Neutrophil cytoplasm ic Ab.classic [Titer] in Serum by Immunofluorescence [facility] Neutrophils [#/volum e] in Blood by Automated count [facility] Neutrophils/100 leuk ocytes in Blood by Automated count [facility] Nuclear Ab [Titer] in Serum [facility] Nucleated erythrocyt es [Presence] in Blood by Automated count [facility] P-ANCA measurement [facility] Patient Education [facility] Work Phone: Patient referral [facility] Work Phone: Platelet mean volume [Entitic volume] in Blood by Automated count [facility] Platelets [#/volume] in Blood [facility] Protein [Mass/volume ] in Serum or Plasma [facility] Proteinase 3 Ab [Units/volume] in Serum by Immunoassay [facility] Renal function 1999 panel - Serum or Plasma [facility] Renal function 1999 panel - Serum or Plasma [facility] Renal function 1999 panel - Serum or Plasma [facility] Renal function 1999 panel - Serum or Plasma [facility] Reticulocytes [#/vol ume] in Blood [facility] Reticulocytes/100 erythrocytes in Blood [facility] Serum immunofixation [facility] Immunizations Immunization Date Immunization Notes Care Provider [facility] 08-14-2023 Influenza, Seasonal, Quadrivalent, Adjuvanted Justin Martinez MD Work Phone: [facility] 08-14-2023 influenza virus vacc ine, unspecified formulation Justin Martinez MD Work Phone: [facility] 07-25-2022 Influenza, High-dose Seasonal, Quadrivalent, Preservative Free Justin Juan MD Work Phone: [facility] 09-01-2021 Pfizer-BioNTech COVI D-19 Vacc 30 MCG/0.3ML Intramuscular Suspension Rugen M Juan Work Phone: [place] [address] DO Work Phone: 07-19-2021 Fluzone High-Dose Quadrivalent 0.7 ML Intramuscular Suspension Prefilled Syringe Rugen M Juan Work Phone: [place] [address] DO Work Phone: 01-05-2021 Pfizer-BioNTech COVI D-19 Vacc 30 MCG/0.3ML Intramuscular Suspension Rugen M Mascot Work Phone: [place] [address] DO Work Phone: 12-14-2020 Pfizer-BioNTech COVI D-19 Vacc 30 MCG/0.3ML Intramuscular Suspension Rugen M Mascot Work Phone: [place] [address] DO Work Phone: 08-08-2020 Fluad Quadrivalent 0 .5 ML Intramuscular Prefilled Syringe Rugen M Mascot Work Phone: [facility] 10-01-2019 zoster vaccine recombinant Rugen M Juan Work Phone: [place] [address] DO Work Phone: 07-17-2019 pneumococcal conjuga te vaccine, 13 valent Rugen M Juan Work Phone: [place] [address] DO Work Phone: 07-17-2019 Seasonal trivalent influenza vaccine, adjuvanted, preservative free Rugen M Mascot Work Phone: [place] [address] DO Work Phone: 07-17-2019 zoster vaccine recombinant Rugen M Mascot Work Phone: [place] [address] DO Work Phone: 05-23-2019 tetanus toxoid, redu misty diphtheria toxoid, and acellular pertussis vaccine, adsorbed Rugen M Juan Work Phone: [place] [address] DO Work Phone: 07-24-2018 influenza, high dose seasonal, preservative-free Rugen M Mascot Work Phone: [place] [address] DO Work Phone: 07-18-2017 influenza, injectabl e, quadrivalent, contains preservative Rugen M Juan Work Phone: [place] [address] DO Work Phone: 07-13-2017 influenza, high dose seasonal, preservative-free Rugen Juan MD Work Phone: [facility] 07-18-2016 influenza, injectabl e, quadrivalent, preservative free Rugen M Juan Work Phone: [place] [address] DO Work Phone: 07-17-2015 influenza, seasonal, injectable, preservative free Rugen M Juan Work Phone: [place] [address] DO Work Phone: 07-30-2012 pneumococcal polysaccharide vaccine, 23 valent Rugen M Mascot Work Phone: [place] [address] DO Work Phone: Payers Date Payer Category Payer Private Health Insurance [employer] [id number] 2022 Unknown 2019 Managed Care Other (unspecified) [facility] [id number] 2016 Medicare [id number] 2016 Medicare [id number] 2016 Medicare [id number] 1959 Medicare [id number] 1959 Self-pay 1959 Unknown [id number] 1951 Unknown [id number] 2.16.840.1.228164.3.579.2 .593 1951 Unknown [id number] 2.16.840.1.594260.3.579.2 .593 1951 Unknown [id number] 2.16.840.1.517525.3.579.2 .593 1951 Unknown [id number] 2.16.840.1.389803.3.579.2 .593 1951 Unknown [id number] 2.16.840.1.621127.3.579.2 .356 1951 Unknown [id number] 2.16.840.1.249763.3.579.2 .1259 1951 Unknown [id number] 2.16.840.1.407999.3.579.2 .1259 1951 Unknown [id number] 2.16.840.1.847996.3.579.2 .1259 1951 Unknown [id number] 2.16.840.1.993458.3.579.2 .1258 1951 Unknown [id number] 2.16.840.1.527904.3.579.2 .1258 1951 Unknown [id number] 2.16.840.1.756583.3.579.2 .1258 1951 Unknown [id number] 2.16.840.1.213275.3.579.2 .9 1951 Unknown [id number] 2.16.840.1.327531.3.579.2 .1286 1951 Unknown [id number] 2.16.840.1.464543.3.579.2 .1286 Unknown [id number] 2.16.840.1.246521.3.579.2 .593 Unknown [id number] 2.16.840.1.499063.3.579.2 .593 Unknown [id number] 2.16.840.1.176621.3.579.2 .531 Unknown [id number] 2.16.840.1.166948.3.579.2 .531 Unknown [id number] 2.16.840.1.011948.3.579.2 .531 Unknown [id number] 2.16.840.1.646333.3.579.2 .531 Unknown [id number] 2.16.840.1.958358.3.579.2 .531 Unknown [id number] 2.16.840.1.050214.3.579.2 .531 Unknown [id number] 2.16.840.1.046958.3.579.2 .531 Unknown [id number] 2.16.840.1.438546.3.579.2 .531 Social History Date Type Detail Facility Unknown if ever smoked [facility] [employer] Other Start: 11-26-2020 End: 07-16-2024 Sex Assigned At [facility] [employer] Other Start: 11-26-2020 End: 06-04-2024 Former smoker Former smoker Merged with [facility] [place] [facility] DO Work Phone: Comment on above: Quit in 2014; 3 cups of coffee pola ly; Start: 1950 Sex Assigned At Male [facility] Start: 01-10-2020 End: 02-22-2024 Tobacco smoking status WVIS Ex-smoker (finding) [facility] Start: 10-16-1969 End: 10-16-2014 History of tobacco use Current smoker [facility] Start: 10-16-1969 End: 10-16-2014 History of tobacco use Cigarette Smoker [facility] Start: 01-10-2020 End: 06-04-2024 Tobacco use and exposure Smokeless tobacco non-user [facility] Start: 07-16-2024 End: 10-21-2024 Alcoholic beverage intake Ex-drinker (finding) [facility] Start: 03-26-2023 Tobacco Comment Last smoked: 1 -5 years [facility] Start: 03-26-2023 Alcohol Comment Audit-C points :2, Caffeine: more than 4 cups per day [facility] Start: 1950 Sex assigned at Not on file N [facility] Start: 05-21-2015 End: 09-03-2024 Sex Male (finding) [facility] Start: 02-24-2020 Alcoholic beverage intake Current drinker of alcohol (finding) [facility] Unknown [facility] Start: 01-10-2020 Alcohol Comment social [facility] Goals Date Patient Goal Desired Activity /State Personal health goal Functional Status Date Assessment Result Facility 11-20-2024 Functional status Patient Not at Baseline [facility] Work Phone: 10-20-2024 Functional status Patient at Baseline [facility] Work Phone: 10-19-2024 Functional status Functional Sta tus Comment SOB with exertion preventing independent ADL. ;Pt reports weight loss with diuresis and poor appetite and change in diet. [facility] Work Phone: Mental Status Date Assessment Result Facility 11-20-2024 Cognitive function Cognitive Sta tus Patient at Baseline [facility] Work Phone: 10-20-2024 Cognitive function Cognitive Sta tus Patient at Baseline [facility] Work Phone: Clinical Notes 04-13-2022 to 11-14-2024 Telephone Encounter - Corry Garcia - 11/14/2024 3:34 PM ESTTelephone Encounter - Richelle Maurer - 11/14/2024 3:34 PM ESTTelephone Encounter - Cecilia Miner - 11/14/2024 3:34 PM EST Note Date & Type Note Facility 11-14-2024 Miscellaneous Notes Formattin g of this note might be different from the original. ----- Message from Jennifer Brown APRN-AUTOMATIC BLOCKER sent at 11/09/2024 3:06 PM EST ----- Will need outpatient for follow up with general neurology due to concern for dementia. 1st attempt: Medical Records Coordinator contacted patient and left a voicemail offering to schedule in with our clinic for a hospital follow up appointment as we have received a provider message requesting to see patient in office. Medical Records Coordinator provided callback number for scheduling or to address any questions or concerns they may have. 2nd attempt: Left message for patient documented [facility]-14[facility]24 Telephone encount er Note ----- Message from RUBÉN Gama sent at 11/09/2024 3:06 PM EST ----- Will need outpatient for follow up with general neurology due to concern for dementia. [employer] 11-14-2024 Telephone encount er Note 1st attempt: Medical Records Coordinator contacted patient and left a voicemail offering to schedule in with our clinic for a hospital follow up appointment as we have received a provider message requesting to see patient in office. Medical Records Coordinator provided callback number for scheduling or to address any questions or concerns they may have. [employer] 11-14-2024 Telephone encount er Note 2nd attempt: Left message for patient [employer] 11-12-2024 Telephone encount er Note Did a PA on epogen for pt , it was denied as pt has not tried retacrit injection solution (and this will also require a PA) please advise [facility] 11-12-2024 Miscellaneous Notes Formattin g of this note might be different from the original. 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 Right iliofemoral endarterectomy and patch with ipsilateral anterior saphenous vein. Abdominal Aorticogram with Stenting of right and left limbs. Balloon Angioplasty of the rt external iliac artery. OTHER SURGICAL HISTORY 05/11/2022 Right ext. iliac artery endarterectomy and patch utilizing great saphenous vein, CO LAP,CHOLECYSTECTOMY 01/10/2020 Laparoscopic cholecystectomy, open laparotomy lysis [...] class 3 and CKD stage 4 (HCC) ([facility]) - Primary Consider Entresto BP currently low [...] NYHA class IV, acute on chronic, diastolic ([facility]/HCC) Relevant Medications epoetin moni (Epogen) 2000 UNIT/ML [...] Flowsheet Row Patient Outreach from 10/14/2024 in [facility] with [facility] Information ED, Hospital or [facility] Facility Discharge? ED Patient has been contacted within 1 week of being seen in the ED Yes Diagnosis abdominal pain Discharge Date 10/09/24 Discharged To: Home Setting Discharge Hospital [facility] Engagement Call Start Time 1028 Admission Date [...] class 3 and CKD stage 4 (HCC) ([facility]) - Primary Consider Entresto BP currently low Lasix resume Watch weight On Jardiance Has O2 but will add portable His O2 sat will drop to 87-88% with minimal exertion. He would benefit from Portable O2 to help with ADLs and IADls Relevant Medications epoetin moni (Epogen) 2000 UNIT/ML injection CKD stage 3b, GFR 30-44 ml/min ([facility]) Fluid status improtant Add Epogen for low hgb 9 with comorbidities of CHF with recent hospitalization Relevant Medications epoetin moni (Epogen) 2000 UNIT/ML injection Anemia in other chronic diseases classified elsewhere Anemia needs treated Relevant Medications epoetin moni (Epogen) 2000 UNIT/ML injection Other Visit Diagnoses CHF (congestive heart failure), NYHA class IV, acute on chronic, diastolic ([facility]) Relevant Medications epoetin moni (Epogen) 2000 UNIT/ML injection Follow up in about 4 weeks (around 11/18/2024). documented in this encounter [facility] 10-20-2024 Discharge summary Note Date/Time October 20, 2024 1:34pm [place] [address] Discharge Summary Signed Patient: Char Alatorre MR#: [id number] : 1950 Acct:[id number] Age/Sex: 73 / M Adm Date: 5 Loc: Room: [address] [place] [address]: Geoff Swann DO Copies to: [...] to 40 mg after speaking with his stock room manager on the phone. His stock room manager in [facility] suggested increase Lasix temporarily to 40 mg [...] knows he has to follow-up with his stock room manager about this issue, and is considering perhaps [...] our local cardiology group or his own stock room manager outpatient. Patient is feeling better this morning, [...] is secondary to his pulmonary hypertension. His stock room manager is in [facility] as mentioned above, he is interested in [...] % (Auto) 67.5, Lymph % (Auto) 20.1, [place] % (Auto) 10.1, Eos % (Auto) 1.3, Baso % (Auto) 1.0, Nucleat RBC Rel Count 0.0, Neut # (Auto) 3.4, Lymph # (Auto) 1.0, [place] # (Auto) 0.5, Eos # (Auto) 0.1, [...] % (Auto) 72.4, Lymph % (Auto) 16.9, [place] % (Auto) 8.5, Eos % (Auto) 0.8, Baso % (Auto) 1.4, Nucleat RBC Rel Count 0.1, Neut # (Auto) 4.3, Lymph # (Auto) 1.0, [place] # (Auto) 0.5, Eos # (Auto) 0.0, [...] signed by Alix Grimaldo> 10/20/[address] [facility] Work Phone: 1(346) 351-259001-05-2025 [place] [address] Discharge Summary Signed Patient: Char Alatorre MR#: [id number] : 1950 Acct:[id number] Age/Sex: 73 / M Adm Date: 5 Loc: Room: [address] [place] [address]: Geoff Swann DO Copies to: [...] oral,to 40 mg after speaking with his stock room manager on the phone. His stock room manager in [facility] suggested increase Lasix temporarily to 40 mg [...] knows he has to follow-up with his stock room manager about this issue, and is considering perhaps [...] our local cardiology group or his own stock room manager outpatient. Patient is feeling better this morning, [...] is secondary to his pulmonary hypertension. His stock room manager is in [facility] as mentioned above, he is interested in [...] % (Auto) 67.5, Lymph % (Auto) 20.1, [place] % (Auto) 10.1, Eos % (Auto) 1.3, Baso % (Auto) 1.0, Nucleat RBC Rel Count 0.0, Neut# (Auto) 3.4, Lymph # (Auto) 1.0, [place] # (Auto) 0.5, Eos # (Auto) 0.1, [...] % (Auto) 72.4, Lymph % (Auto) 16.9, [place] % (Auto) 8.5, Eos % (Auto) 0.8, Baso % (Auto) 1.4, Nucleat RBC Rel Count 0.1, Neut # (Auto) 4.3, Lymph # (Auto) 1.0, [place] # (Auto) 0.5, Eos # (Auto) 0.0, [...] By: 10/20/24 1334 10/20/24 1329 [facility]01-04-2025 History and physical note Author Geoff Swann [facility] Note Date/Time October 19, 2024 4: 47pm [facility] [address] [place] [address] Hospitalist H&P Signed Patient: Char Alatorre MR#: [id number] : 1950 Acct:[id number] Age/Sex: 73 / M Adm Date: 5 Loc: Room: [address] [place] [address] Type: ADM IN Attending Dr: Geoff Swann [...] mg daily on September 25 per his stock room manager in [facility]. He recently called and said he is been feeling more shortness of breath and his stock room manager increased him back to 40 mg daily. [...] negative unless noted below or in HPI [facility] Medical History (Updated 10/19/24 @ 16:42 by [...] % (Auto) 16.9 % (.) 10/19/24 12:34 [place] % (Auto) 8.5 % (.) 10/19/24 12:34 Eos % (Auto) 0.8 % (.) 10/19/24 12:34 Baso % (Auto) 1.4 % (.) 10/19/24 12:34 Nucleat RBC Rel Count 0.1 /100 WBC (0-0.5) 10/19/24 12:34 Neut # (Auto) 4.3 x10E3/uL (1.8-7.7) 10/19/24 12:34 Lymph # (Auto) 1.0 x10E3/uL (1.00-4.8) 10/19/24 12:34 [place] # (Auto) 0.5 x10E3/uL (0.0-0.8) 10/19/24 12:34 [...] Lasix given today ?He has a primary stock room manager in [place] however they live here locally in [place] and are interested in switching care to [...] by Geoff Swann DO> 10/19/[address] [facility] Work Phone: 1(328) 131-478301-04-2025 [place] [address] Hospitalist H&P Signed Patient: Char Alatorre MR#: [id number] : 1950 Acct:[id number] Age/Sex: 73 / M Adm Date: 5 Loc: Room: [address] [place] [address] Type: ADM IN Attending Dr: Geoff Swann DO Copies to: MD Geoff Barry, ~ HPI DATE OF EXAMINATION: 10/19/24 CHIEF COMPLAINT: shortness of breath HISTORY OF PRESENT ILLNESS: Mr Alatorre is a 73-year-old male with a past medical history of CHF with preserved ejection fraction, hypertension, hyperparathyroidism, hyperlipidemia and AAA who presents hospital with chief, shortness of breath. This apparently started around [place] time. He came to our emergency room [...] mg daily on September 25 per his stock room manager in [facility]. He recently called and said he is been feeling more shortness of breath and his stock room manager increased him back to 40 mg daily. [...] negative unless noted below or in HPI [facility] Medical History (Updated 10/19/24 @ 16:42 by [...] % (Auto) 16.9 % (.) 10/19/24 12:34 [place] % (Auto) 8.5 % (.) 10/19/24 12:34 Eos % (Auto) 0.8 % (.) 10/19/24 12:34 Baso % (Auto) 1.4 % (.) 10/19/24 12:34 Nucleat RBC Rel Count 0.1 /100 WBC (0-0.5) 10/19/24 12:34 Neut # (Auto) 4.3 x10E3/uL (1.8-7.7) 10/19/24 12:34 Lymph # (Auto) 1.0 x10E3/uL (1.00-4.8) 10/19/24 12:34 [place] # (Auto) 0.5 x10E3/uL (0.0-0.8) 10/19/24 12:34 [...] Lasix given today ?He has a primary stock room manager in [place] however they live here locally in [place] and are interested in switching care to [...] 1633 Signed By: 10/19/24 1647 [facility]11-19-2024 Evaluation note* Diagnosis Onset Date Resolution Status [...] CHF (congestive heart failure) acute 2024 3:29pm [facility] Work Phone: 1(295) 602-179211-19-2024 Evaluation note* Diagnosis Onset Date Resolution Status [...] 2024 3:29pm Acute hypoxic respiratory failure ac [place] October 19, 2024 3:29pm Anemia of renal disease acute J anuary 2024 3:29pm CKD (chronic kidney disease) stage 3, GFR 30-59 ml/min acute October 19, 2024 3:29pm Heart failure with preserved ejection fraction acute October 19, 2 025 3:29pm Severe obstructive sleep apnea acute October 19, 2024 3:29pm [facility] Work Phone: 1(958) 541-451211-19-2024 Evaluation note* Diagnosis Onset Date Resolution Status [...] Pulmonary hypertension acute Ja nuary 2024 11:03am [facility] Work Phone: 1([phone]) 341-528111-19-2024 Evaluation note* Diagnosis Onset Date Resolution Status [...] Pulmonary hypertension acute Ja nuary 2024 11:03am [facility] Work Phone: 1(391) 183-179711-19-2024 Evaluation note* Diagnosis Onset Date Resolution Status [...] 2024 12:54pm Systolic CHF acute November 12:54pm [facility] Work Phone: 1(481) 255-615410-26-2024 Telephone encounter Note* Telephone Encounter - PHILIPPE Carrillo - 08/10/2024 10:26 AM EDT Coreg and Plavix sent. [id number] Miscellaneous Notes* Telephone Encounter - PHILIPPE Carrillo - 08/10/2024 10:26 AM EDT Coreg and Plavix sent. documented in this encounterI[facility] [id number] History of Present illness Narrative* Justin Martinez [...] 1975 KNEE CARTILAGE SURGERY Bilateral meniscus repairs [id number] OTHER SURGICAL HISTORY 1993 Herniated disc L5-S1 OTHER SURGICAL HISTORY 05/11/2022 Right Leg ischemia: Right Groin exploration. Right iliofemoral endarterectomy and patch with ipsilateral anterior saphenous vein. Abdominal Aorticogram with Stenting of right and left limbs. Balloon Angioplasty of the rt external iliac artery. OTHER SURGICAL HISTORY 05/11/2022 Right ext. iliac artery endarterectomy and patch utilizing great saphenous vein, CO LAP,CHOLECYSTECTOMY 01/10/2020 Laparoscopic cholecystectomy, open laparotomy lysis [...] Addressed This Visit Atherosclerotic heart disease of [place] coronary artery without angina pectoris (CMS/HCC) Coronary [...] tablet Congestive heart failure due to hypertension ([facility]) Keep weight 190lbs Watch weight gain and symptoms Relevant Medications furosemide (Lasix) 40 MG tablet Follow up in about 3 months (around 10/16/2024). documented in this encounter[facility] [id number] Evaluation note* Diagnosis Onset Date Resolution Status [...] 10:13am Systolic CHF acute July 032023 10:13am [facility] Work Phone: 1(365) 574-544508-22-2024 Evaluation note* Diagnosis Onset Date Resolution Status [...] 2024 9:28am Systolic CHF acute August 9:28am [facility] Work Phone: 1(775) 997-696208-20-2024 History of Present illness Narrative* Justin Martinez MD - 06/04/2024 10:56 AM EDTAssociated Problem(s): Pulmonary hypertension (CMS/HCC) Check sleep apnea On O2 at night Consider referral Environmental Programs Manager Low Sodium Diet 2 grams Weight goal [...] Martinez MD Discharge Information ED, Hospital or [facility] Facility Discharge? Hospital Patient has been contacted within two business days of discharge Yes Discharge Date 05/13/24 Discharge Hospital [facility] Discharged To: Home Setting Engagement Call Start [...] had went to ER on 05/11 at [facility] stayed till 05/13 and then called his cardio dr and was sent to hospital in [place] from 05/14 to 05/24 Pt did have a heart cath on 05/17 on the right, second one was the did the left and third one on the and also put in one stent Pt did see pulmonary consult and aquatics instructor and he see cardio next week Pt [...] time each day at the same time. Oqjjlgsdbil-Lzesmmzqz-Zfuqmj (Trelegy Ellipta) 200-62.5-25 MCG/ACT aerosol powder Inhale [...] 1975 KNEE CARTILAGE SURGERY Bilateral meniscus repairs [id number] OTHER SURGICAL HISTORY 1992 Herniated disc L5-S1 OTHER SURGICAL HISTORY 05/11/2022 Right Leg ischemia: Right Groin exploration. Right iliofemoral endarterectomy and patch with ipsilateral anterior saphenous vein. Abdominal Aorticogram with Stenting of right and left limbs. Balloon Angioplasty of the rt external iliac artery. OTHER SURGICAL HISTORY 05/11/2022 Right ext. iliac artery endarterectomy and patch utilizing great saphenous vein, CO LAP,CHOLECYSTECTOMY 01/10/2020 Laparoscopic cholecystectomy, open laparotomy lysis [...] Studies Ambulatory referral to Pulmonology Pulmonary hypertension ([facility]) - Primary Check sleep apnea On O2 at night Consider referral Environmental Programs Manager Relevant Orders Ambulatory referral to Sleep Studies Ambulatory referral to Pulmonology Congestive heart failure due to hypertension ([facility]) Increase diligence on weight if weight gain>3 lbs inform us. Consider Jardiance/Farxiga for kidney and heart failure Relevant Orders Ambulatory referral to Sleep Studies Ambulatory referral to Pulmonology No follow-ups on file. documented in this encounterI[facility]70 [facility] [id number] Evaluation note* Encounter Date Diagnosis Assessment Notes [...] Continue statins. Monitor LFTs and lipid profile [employer] Other 07-07-2022 Evaluation note* Encounter Date Diagnosis [...] D. His calcium is back to normal. [employer] Other 06-29-2022 NotePROCEDURE: CITTIO Signa HDXT 1.5 Sagittal T1, T2, STIR [...] and signed by Lakhwinder Chappell on 04/13/[address] [place], [place] [address]Chief complaint Narrative - ReportedCHAR ALATORRE is being seen for a consultation for [place]- Vasculopath.-[place] [address] DO Work Phone: Discharge summary Author Geoff Swann [facility] Note Date/Time October 20, 2024 1: 34pm [facility] [address] [place] [address] Discharge Summary Signed Patient: Char Alatorre MR#: [id number] : 1950 Acct:[id number] Age/Sex: 73 / M Adm Date: 5 Loc: Room: [address] [place] [address]: Geoff Swann DO Copies to: [...] to 40 mg after speaking with his stock room manager on the phone. His stock room manager in [facility] suggested increase Lasix temporarily to 40 mg [...] knows he has to follow-up with his stock room manager about this issue, and is considering perhaps [...] our local cardiology group or his own stock room manager outpatient. Patient is feeling better this morning, [...] is secondary to his pulmonary hypertension. His stock room manager is in [facility] as mentioned above, he is interested in [...] % (Auto) 67.5, Lymph % (Auto) 20.1, [place] % (Auto) 10.1, Eos % (Auto) 1.3, Baso % (Auto) 1.0, Nucleat RBC Rel Count 0.0, Neut # (Auto) 3.4, Lymph # (Auto) 1.0, [place] # (Auto) 0.5, Eos # (Auto) 0.1, [...] % (Auto) 72.4, Lymph % (Auto) 16.9, [place] % (Auto) 8.5, Eos % (Auto) 0.8, Baso % (Auto) 1.4, Nucleat RBC Rel Count 0.1, Neut # (Auto) 4.3, Lymph # (Auto) 1.0, [place] # (Auto) 0.5, Eos # (Auto) 0.0, [...] signed by Alix Grimaldo> 10/20/[address] 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 acu te CKD (chronic kidney disease) stage 3, GFR 30-59 ml/min acute Glucosuria acute Hyperlipidemia acute Hyperparathyroidism acute Hypokalemia acute Nephrolithiasis acute Proteinuria acute H/O cardiac catheterization noneactive H/O heart artery stent nonea ctive [facility] Work Phone: Evaluation note* Diagnosis 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, 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) (CMS/HCC)- Primary Atherosclerosis of [place] coronary artery of [place] heart without angina pectoris (CMS/HCC) Pulmonary hypertension (CMS/HCC) Other chronic pulmonary heart diseases Coronary artery disease due to lipid rich plaque (CMS/HCC) Congestive heart failure due to hypertension (CMS/HCC) documented in this encounter [facility] HealthcareEvaluation note* Diagnosis Essential hypertension (CMS/HCC)- Primary Unspecified essential hypertension Routine general medical examination at health care facility Routine general medical examination at a health care facility History of smoking 30 or more pack years Atherosclerosis of [place] coronary artery of [place] heart without angina pectoris (CMS/HCC) Peripheral vascular disease (CMS/HCC) Unspecified peripheral vascular disease Right hip pain Pain in joint, pelvic region and thigh Peripheral vascular disease (CMS/HCC)- Primary Unspecified peripheral vascular disease Atherosclerosis of [place] coronary artery of [place] heart without angina pectoris (CMS/HCC) Nonrheumatic aortic [...] stage 4 (HCC) (CMS/HCC)- Primary Atherosclerosis of [place] coronary artery of [place] heart without angina pectoris (CMS/HCC) Pulmonary hypertension (CMS/HCC) Other chronic pulmonary heart diseases Coronary artery disease due to lipid rich plaque (CMS/HCC) Congestive heart failure due to hypertension (CMS/HCC) Atherosclerosis of [place] coronary artery of [place] heart without angina pectoris (CMS/HCC)- Primary Essential hypertension (CMS/HCC) Unspecified essential hypertension documented in this encounter [facility] HealthcareEvaluation note* Diagnosis Pulmonary hypertension (CMS/HCC)- Primary Other chronic pulmonary heart diseases Coronary artery disease due to lipid rich plaque (CMS/HCC) Congestive heart failure due to hypertension (CMS/HCC) documented in this encounter [facility] HealthcareEvaluation note* Diagnosis Essential hypertension ([facility]/HCC)- Primary Unspecified essential hypertension Routine general medical examination at health care facility Routine general medical examination at a health care facility History of smoking 30 or more pack years Atherosclerosis of [place] coronary artery of [place] heart without angina pectoris (CMS/HCC) Peripheral vascular disease ([facility]/HCC) Unspecified peripheral vascular disease Right hip pain Pain in joint, pelvic region and thigh Peripheral vascular disease (CMS/HCC)- Primary Unspecified peripheral vascular disease Atherosclerosis of [place] coronary artery of [place] heart without angina pectoris (CMS/HCC) Nonrheumatic aortic valve stenosis Moderate aortic stenosis by prior echocardiogram 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, 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) ([facility]) Pulmonary emphysema, unspecified emphysema type ([facility]/HCC)- Primary Blood loss anemia Acute posthemorrhagic anemia Benign essential hypertension (CMS/HCC) Essential hypertension, benign Nocturia Abnormal glucose tolerance test Impaired glucose tolerance test Medicare annual wellness visit, subsequent Hyperparathyroidism ([facility]) Hyperparathyroidism, unspecified Vitamin D deficiency Low HDL (under 40) ([facility]) Swelling of lower extremity Other fatigue 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, 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) ([facility]) Moderate asthma, unspecified whether complicated, unspecified whether [...] stage 4 (HCC) (CMS/HCC)- Primary Atherosclerosis of [place] coronary artery of [place] heart without angina pectoris (CMS/HCC) Pulmonary hypertension [...] chronic, diastolic (CMS/HCC) documented in this encounter [facility] HealthcareEvaluation note* Diagnosis Essential hypertension (CMS/HCC)- Primary Unspecified essential hypertension Routine general medical examination at health care facility Routine general medical examination at a health care facility History of smoking 30 or more pack years Atherosclerosis of [place] coronary artery of [place] heart without angina pectoris (CMS/HCC) Peripheral vascular disease (CMS/HCC) Unspecified peripheral vascular disease Right hip pain Pain in joint, pelvic region and thigh Peripheral vascular disease (CMS/HCC)- Primary Unspecified peripheral vascular disease Atherosclerosis of [place] coronary artery of [place] heart without angina pectoris (CMS/HCC) Nonrheumatic aortic valve stenosis Moderate aortic stenosis by prior echocardiogram 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, 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) ([facility]/HCC) Pulmonary emphysema, unspecified emphysema type (CMS/HCC)- Primary [...] stage 4 (HCC) (CMS/HCC)- Primary Atherosclerosis of [place] coronary artery of [place] heart without angina pectoris (CMS/HCC) Pulmonary hypertension [...] physical note Author Geoff Swann [facility] Note Date/Time October 19, 2024 4: 47pm [facility] [address] [place] [address] Hospitalist H&P Signed Patient: Char Alatorre MR#: [id number] : 1950 Acct:[id number] Age/Sex: 73 / M Adm Date: 5 Loc: Room: [address] [place] [address] Type: ADM IN Attending Dr: Geoff Swann DO Copies to: MD Geoff Barry, DO~ HPI DATE OF EXAMINATION: 10/19/24 CHIEF COMPLAINT: shortness of breath HISTORY OF PRESENT ILLNESS: Mr Alatorre is a 73-year-old male with a past medical history of CHF with preserved ejection fraction, hypertension, hyperparathyroidism, hyperlipidemia and AAA who presents hospital with chief, shortness of breath. This apparently started around [place] time. He came to our emergency room [...] mg daily on September 25 per his stock room manager in [facility]. He recently called and said he is been feeling more shortness of breath and his stock room manager increased him back to 40 mg daily. [...] negative unless noted below or in HPI [facility] Medical History (Updated 10/19/24 @ 16:42 by [...] [facility] Problem: Diagnosed with Cancer Sister [facility] Problem: Diagnosed with Cancer Social History Smoking [...] % (Auto) 16.9 % (.) 10/19/24 12:34 [place] % (Auto) 8.5 % (.) 10/19/24 12:34 Eos % (Auto) 0.8 % (.) 10/19/24 12:34 Baso % (Auto) 1.4 % (.) 10/19/24 12:34 Nucleat RBC Rel Count 0.1 /100 WBC (0-0.5) 10/19/24 12:34 Neut # (Auto) 4.3 x10E3/uL (1.8-7.7) 10/19/24 12:34 Lymph # (Auto) 1.0 x10E3/uL (1.00-4.8) 10/19/24 12:34 [place] # (Auto) 0.5 x10E3/uL (0.0-0.8) 10/19/24 12:34 [...] Lasix given today ?He has a primary stock room manager in [place] however they live here locally in [place] and are interested in switching care to [...] signed by Geoff Swann DO> 10/19/24 1647 [facility] Work Phone: History general Narrative - [...] PLACEMENT 2001 Surgical History BL MENISCUS REPAIRS [id number] Surgical History ABDOMINAL AORTIC ANEURISM 2010 Surgical [...] ORAL SURGERY 04/20/2022 Hospitalization History SEE ABOVE [employer] Other History general Narrative - Reported* Type [...] PLACEMENT 2001 Surgical History BL MENISCUS REPAIRS [id number] Surgical History ABDOMINAL AORTIC ANEURISM 2010 Surgical [...] LEG STENT 01/05/2023 Hospitalization History SEE ABOVE [employer] Other History of Present illness NarrativePatient is [...] place. He believes he might be in [place] or at [facility] also in [facility]. Because of this we will attempt to obtain all these test results and integrate them into our plan of care. I advised him for the time being treatment of his risk factors of hypertension and hyperlipidemia is adequate and because of this we recommend continued therapy as is. The merits of diet and weight loss were discussed.-[facility]-Kaitlin 250 DO Work Phone: InstructionsNot on filedocumented in this encounter [facility] (n[facility]ative)* Consultation (Routine) - Pending Review Specialty Diagnoses / Procedures Referred By Abdiaziz combs Referred To Contact Pulmonary Disease Diagnoses Pulmonary hypertension (CMS/HCC) Coronary artery disease due to lipid rich plaque (CMS/HCC) Congestive heart failure due to hypertension (CMS/HCC) Procedures CO OFFICE/OUTPATIENT NEW HIGH MDM 60 MINUTES Justin Martinez MD [address] [address] Shay Muhammad MD [address] [address] Referral ID Status Reason Start Date Expiration Date Visits Requested Visits Authorized [id number] Pending Review Specialty Services Required 06/04/2024 12/01/2024 1 1 * Consultation (Routine) - Pending Review Specialty Diagnoses / Procedures Referred By Abdiaziz combs Referred To Contact Sleep Medicine Diagnoses Pulmonary hypertension (CMS/HCC) Coronary artery disease due to lipid rich plaque (CMS/HCC) Congestive heart failure due to hypertension (CMS/HCC) Procedures CO OFFICE/OUTPATIENT NEW HIGH MDM 60 MINUTES Justin Martinez MD [address] [place] [id number] Referral ID Status Reason Start Date Expiration Date Visits Requested Visits Authorized [id number] Pending Review Specialty Services Required 06/04/2024 12/01/2024 [...] 11 :08am Ref: Dr. Martinez- Pulmonary Hypertension RUST 2023 10:13am 6 week f/u- September 03, [...] content) DATE CREATED AUTHOR 05/07/2020 [facility] DATE CREATED AUTHOR AUTHOR'S ORGANIZ ATION 10/13/2021 [facility] DATE CREATED AUTHOR AUTHOR'S ORGANIZ ATION 04/14/2022 [facility] dical Specialist DATE CREATED AUTHOR AUTHOR'S ORGANIZ ATION 06/08/2022 [facility] DATE CREATED AUTHOR AUTHOR'S ORGANIZ ATION 08/25/2022 [facility] ical Center DATE CREATED AUTHOR AUTHOR'S ORGANIZ ATION 10/27/2024 [facility] Specialists EPIC DATE CREATED AUTHOR AUTHOR'S ORGANIZ ATION 11/14/2024 [facility] DATE CREATED AUTHOR AUTHOR'S ORGANIZ [...] 03, 2024 End: September 03, 2024 Donna Villareral MD Attending Provider Active Start: September 03, [...] May 12, 2024 End: May 13, 2024 Senior Business Development Manager Relationship Specialty Start Date End Date Justin Martinez MD 112 [facility] [address] [place] [address] PCP - ACO Reach 03/09/23 Justin Martinez MD [address] [place] [facility] [address] [place] [address] PCP - General 03/24/23 Senior Business Development Manager Relationship Specialty Start Date End Date Justin Martinez MD [address] [place] [address] PCP - ACO Reach 03/09/23 Justin Martinez MD [address] [place] [address] PCP - General 03/24/23 Team Status: Inactive Member Role Status Dates Justin Martinez MD Primary Care Provider Active S tart: September 03, 2024 End: September 03, 2024 Magy Cummings MD Attending Provider Active Start : September 03, 2024 End: September 03, 2024 Mary Hallman MD Other Provider Active Start: September 03, 2024 End: September 03, 2024 Senior Business Development Manager Relationship Specialty Start Date End Date Justin Martinez MD [address] [place] [address] PCP - ACO Reach 03/09/23 Justin Martinez MD [address] [place] [address] PCP - General 03/24/23 Senior Business Development Manager Relationship Specialty Start Date End Date Justin Martinez MD [address] [place] [address] PCP - ACO Reach 03/09/23 Justin Martinez MD [address] [place] [address] PCP - General 03/24/23 Team Status: Active Member Role Status Dates Mary Hallman MD Ruby Engineer Active Magy Cummings MD Specialist Active Gopal [...] October 28, 2024 End: October 28, 2024 Senior Business Development Manager Relationship Specialty Start Date End Date Justin Martinez MD [address] [place] [address] PCP - ACO Reach 03/09/23 Justin Martinez MD [address] [place] [address] PCP - General 03/24/23 Senior Business Development Manager Relationship Specialty Start Date End Date Justin Martinez MD [address] [place] [address] PCP - ACO Reach 03/09/23 Justin Martinez MD [address] [place] [address] PCP - General 03/24/23 Team Status: Inactive [...] Other Provider Active Start: November 20, 2024 Senior Business Development Manager Relationship Specialty Start Date End [place] [address] PCP - General Family Medicine 12/11/19 Goals [...] BE BASED ON THE PRIMARY CLINICAL RECORDS. [facility] provides no warranty or guarantee of the accuracy or completeness of information in this document.
--- OUTSIDE RECORDS SUMMARY | 2024-11-29 12:22 | XMS_ITS | CCD ---
Author Organization [facility] CliniSynv Care Team Providers Care Busperson Name Role Phone JUAN, DR ANDERSON Primary Care Unavailable REQUEST, DR HILL LISTED Admitting Unavaila ble REQUEST, DR HILL LISTED Attending Unavaila ble REQUEST, DR HILL LISTED Consulting Unavaila ble JUAN, DR ANDERSNO Primary Care Unavailable REQUEST, DR HILL LISTED [...] Unavailable MD Justin Martinez Primary Care Provider [phone] MD Magy Cummings Attending Provider Justin Martinez MD Unavailable Justin Martinez MD Primary Care Provider [phone] Justin Martinez MD Primary Care Provider Magy Cummings MD Attending Provider Mary Hallman MD Other Provider Arturo Le MD Emergency Provider [phone] Joel De La Paz DO Emergency Provider [phone] Geoff Swann DO Admit Provider Geoff Swann DO Attending Provider JUAN RUGEN M Attending Unavailable JUAN, RUGEN M Attending Unavailable JUAN, RUGEN M Referring Unavailable JUAN, RUGEN M Attending Unavailable JUAN, RUGEN M Attending Unavailable JAUN, RUGEN M Attending Unavailable JUAN, RUGEN M Attending Unavailable Phil MARTINEZ, Donna Sawyer Referring Provider Kika MARTINEZ, Trav Tyler Attending Provider [phone] JUAN, RUGEN M Referring Unavailable JUAN, RUGEN M Primary Care Unavailable JUAN, RUGEN M Primary Care Unavailable INPATIENT, TELENEUROLOGY Consulting Unavail able ABAD MONTERO Consulting Unavailable Panda MARTINEZ, Prashant Shelton Attending Provider Canelo Teran DO Referring Provider Odalys Spaulding MD Attending Provider [phone] Turner Knott DO Admit Provider Turner Knott DO Attending Provider Kelly Gomez MD Other Provider Maria E Almendarez RN Other Provider Unavailable Med Baltazar MD Other Provider Chase Larkin MD Other Provider [phone] Odalys Spaulding MD Other Provider Justin Martinez MD Primary Care Provider [phone] Prakash Keyes MD Attending Provider Odalys Spaulding Admitting Unavailable Odalys Spaulding Attending Unavailable Justin Martinez Primary Care Unavailable Geoff Swann Admitting Unavailable Geoff Swann Attending Unavailable Juan, Rugen M Primary Care Unavailable Prakash Keyes Attending Unavailable Turner Knott Admitting Unavailabl e [place], Rugen M Primary Care Unavailable Kelly Gomez Consulting Unavailable ReechlMaria E nelson Consulting Unavailable Med Baltazar Consulting Unavailable Chase Larkin Consulting Odalys White Consulting Unavailable Emiliano, Magy Attending Unavailable [place], Rugen M Primary Care Unavailable Emiliano, Magy Admitting Unavailable Emiliano, Magy Attending Unavailable [place], Rugen M Primary Care Unavailable Emiliano, Magy Admitting Unavailable Emiliano, Magy Attending Unavailable Emiliano, Magy Admitting Unavailable [place], Rugen M Primary Care Unavailable Emiliano, Magy Attending Unavailable Emiliano, Magy Admitting Unavailable [place], Rugen M Primary Care Unavailable Arturo Le Admitting Unavailable Arturo Le Attending Unavailable Juan, Rugen M Primary Care Unavailable Emiliano, Magy Attending Unavailable Mary Hallman Consulting Unavailable Emiliano, Magy Admitting Unavailable NON STAFF Referring Unavailable [place], Rugen M Primary Care Unavailable Canelo Teran Referring Unavailable Prashant Mosqueda Admitting Unavailable Prashant Mosqueda Attending Unavailable Juan, Rugen M Primary Care Unavailable Medications Current Medications Medication Drug Class(es) Dates Sig (Normalized) Sig (Original) acetaminophen 325 mg oral tablet (1 source) Start: 11-23-2024 take 1-3 tablets by mouth every four hours as needed for pain Acetaminophen (Tylenol) 325 mg Tablet Active 650 MG PO Q4H as needed for Pain Scale 1 - 3 or fever 0 November 23, 2024 12:00am acetaminophen 325 mg / HYDROcodone bitartrate 5 mg oral tablet (1 source) Opioid Agonist Start: 01-06-2020 take 1-2 tablets by mouth every six hours HYDROcodone-acetam inophen (NORCO) 5-325 mg per tablet TAKE 1 [...] June 06, 2024 10:33am Start: 01-25-2024 End: 06-06-2024 take 5 mg by mouth once daily Amlodipine Discontinued 5 MG PO Daily February 22, 2024 11:42am June 06, 2024 11:33am Start: 11-23-2019 End: 02-22-2024 take 1 tablet by mouth once daily Amlodipine 10 mg tablet Discontinued 10 MG PO Daily February 22, 2024 10:25am February 22, 2024 10:45am apixaban 5 mg oral tablet (20 sources) Factor Xa Inhibitor Start: 01-04-2024 take 1 tablet by mouth twice daily Apixaban (Eliquis) 5 mg tablet Active 5 MG PO Twice daily January 24, 2024 11:00pm ascorbic acid 500 mg oral tablet (1 source) Vitamin C Start: 11-23-2024 take 1 tablet by mouth at breakfast Ascorbic Acid (Vitamin C) (Vitamin C) 500 mg Tablet Active 500 MG PO With breakfast and lunch 0 November 23, 2024 12:00am atorvastatin 20 mg oral tablet (20 sources) [...] Start: 11-30-2019 take 1 tablet by kaylene th once [...] MG PO Daily June 05, 2024 11:00pm docusate sodium 100 mg oral capsule (1 source) Start: 2024 take 1 capsule by mouth twice daily Docusate Sodium 100 mg Capsule Active 100 MG PO Twice daily 0 November 23, 2024 12:00am 1 ml epoetin moni-epbx 4000 unt/ml injection [...] class 3 and CKD stage 4 (HCC) (CMS/[facility]) , CKD stage 3b, GFR 30-44 ml/min ([facility]) , Anemia in other chronic diseases classified elsewhere , CHF (congestive heart failure), NYHA class IV, acute on chronic, diastolic (CMS/HCC) Inject 1 mL (2,000 Units) under the skin 3 (three) times a week Patient has GFR 31, And had hospitalization for CHF on 10/19/2024 12 mL 2 10/21/2024 11/20/2024 Active ezetimibe 10 mg oral tablet (3 sources) Dietary Cholesterol Absorption Inhibitor Start: 11-20-2024 take 1 tablet by mouth once daily Ezetimibe (Zetia) 10 mg tablet Active 10 MG PO Daily November 20, 2024 12:00am ferrous sulfate 325 mg oral tablet (12 sources) Start: 09-16-2024 take 1 tablet by [...] 0 Refills: 0 Ordered: 01-Jun-2022 DO Active Ekesrlbmpkw-Lqqnmgism-Wnsnxt (Trelegy Ellipta) 200-62.5-25 MCG/ACT aerosol powder (2 sources) Start: 03-25-2024 End: 06-04-2024 take 1 puff(s) by inhalation once daily Bukdwiykfcu-Hizoxkydg-Uimbze (Trelegy Ellipta) 200-62.5-25 MCG/ACT aerosol powder Indications: Pulmonary emphysema, unspecified emphysema type (CMS/HCC) Inhale 1 puff Daily 3 each 1 03/25/2024 06/04/2024 Discontinued (Other) furosemide 40 mg oral tablet (20 sources) Loop Diure tic Start: 11-23-2024 take 1 tablet by mouth twice daily Furosemide 40 mg Tablet Active 40 MG PO BID@0800,1600 0 November 23, 2024 12:00am Start: 11-20-2024 End: 11-24-2024 take 1 tablet by mouth once daily Furosemide 20 mg tablet Discontinued 20 MG PO Daily November 20, 2024 12:00am November 24, 2024 4:39pm Start: 07-03-2024 End: 11-20-2024 take 1 tablet [...] as directed Orally twice a day Active Lanolin Qkcvdkz-Oa-G.Pet-Cer es (Minerin Creme) Cream (1 source) Start: 11-23-2024 Lanolin Alcoho l-Mo-W.Pet-[place] (Minerin Creme) Cream Active 1 APPLIC TOPICAL Twice daily 0 November 23, 2024 12:00am methylcellulose 2000 mg powd er for oral [...] by mouth Daily 05/13/2024 06/04/2024 Discontinued (Other) Multivitamin With Folic Acid (Thera) 400 mcg Tablet (1 source) Start: 11-23-2024 take 1 tablet by mouth once daily Multivitamin With Folic Acid (Thera) 400 mcg Tablet Active 1 TAB PO Daily 0 November 23, 2024 12:00am nitroglycerin 0.4 mg sublingual tablet (20 sources) Nitrate Vasodilator Start: 11-23-2024 Nitroglycerin 0.4 mg Tablet, Sublingual Active 0.4 MG SUBLINGUAL Q5M as needed for Chest Pain 0 November 23, 2024 12:00am Start: 06-20-2024 End: 11-20-2024 Nitroglycerin 0.4 mg tablet, sublingual Discontinued 0.4 MG SUBLINGUAL Q5M as needed for angina June 19, 2024 11:00pm November 20, 2024 9:45am Start: 05-23-2024 nitroglycerin (Nitrostat) 0.4 MG SL tablet 05/23/2024 Active nortriptyline 25 mg oral capsule (20 sources) Tricyclic Antidepressant Start: 01-25-2024 End: 11-24-2024 take 1 capsule by mouth once daily in the evening Nortriptyline 25 mg Capsule Active 25 MG PO Every evening 0 November 23, 2024 12:00am Start: 01-25-2024 End: 02-22-2024 take 2 capsules by mouth once daily at bedtime Nortriptyline 25 mg capsule Discontinued MG PO January 24, 2024 11:00pm February 22, 2024 10:28am FreeTextSi capsule Orally Once a day at [facility]; Note: Source Status: Taking; Provider: Emiliano Bhatti ( ) Start: 01-25-2024 End: 07-03-2024 take 50 mg by mouth once daily at bedtime Nortriptyline Discontinued 50 MG PO Daily at bedtime February 22, 2024 11:27am July 03, 2024 10:47am Start: 11-23-2019 take 1 capsule by mo uth twice daily nortriptyline (Pamelor) 25 MG capsule Indications: Peripheral vascular disease (CMS/HCC) TAKE 1 CAPSULE BY MOUTH TWICE A DAY FOR 90 DAYS 200 capsule 3 11/09/2023 Active take 2 capsules by m outh once daily at bedtime Nortriptyline HCl 25 MG 2 capsule Orally Once a day at [facility] Active ondansetron 4 mg disintegrating oral tablet (1 source) Serotonin-3 Receptor Antagonist Start: 01-06-2020 ondansetron ODT (ZOFRAN-ODT) 4 mg disintegrating tablet DISSOLVE 1 TABLET on the tongue EVERY 8 HOURS NEEDED 01/06/2020 Active penicillin v potassium 500 mg oral tablet (1 source) take 1 tablet by mouth every six hours Penicillin V Potassium 500 MG 1 tablet Orally FOUR TIMES A DAY Active potassium chloride 10 meq extended release oral capsule (15 sources) Start: 11-24-2024 take 1 capsule by mouth once daily Potassium Chloride 10 mEq capsule, extended release Active 10 MEQ PO Daily November 24, 2024 12:00am Start: 01-27-2024 End: 02-22-2024 take 1 tablet by mouth once daily Potassium Chloride 20 mEq tablet extended release Discontinued 20 MEQ PO Daily January 26, 2024 11:00pm February 22, 2024 10:42am psyllium 3400 mg powder for oral suspension (6 sources) Start: 10-20-2024 Psyllium Husk (Aspartame) (Metamucil Fiber Singles) 3.4 gram Powder In Packet Active 1 PACKET PO Daily October 20, 2024 12:00am Sennosides (Senna Lax) 8.6 mg Tablet (1 source) Start: 11-23-2024 take 1 tablet by mouth once daily in the evening Sennosides (Senna Lax) 8.6 mg Tablet Active 8.6 MG PO Every evening November 23, 2024 12:00am spironolactone 25 mg oral tablet (20 sources) Aldosterone Antagonist Start: 11-23-2024 take 1 tablet by mouth once daily Spironolactone 25 mg Tablet Active 25 MG PO Daily 0 November 23, 2024 12:00am Start: 02-22-2024 End: 06-06-2024 take 1 tablet by mouth once daily Spironolactone 25 mg tablet Discontinued 25 MG PO Daily February 22, 2024 11:24am June 06, 2024 10:34am Trelegy Ellipta 100 mcg (1 source) take 1 puff(s) by inhalation once daily as needed Trelegy Ellipta 100 mcg 1 puff Inhalation Once a day prn Active vitamin b12 1 mg/ml injectable solution (19 sources) Vitamin B12 Start: inject 1000 ug [...] DO Active empagliflozin 10 mg oral tablet (17 sources) Sodium-Glucose Cotransporter 2 Inhibitor Start: 07-03-20 End: 11-20-19 take 1 tablet by mouth once daily Empagliflozin (Jardiance) 10 mg tablet Discontinued 10 MG PO Daily July 02, 2024 11:00pm November 20, 2024 9:45am Fluticasone-Umeclidin -Vilanter (13 sources) Start: 02-22-20 End: 06-06-20 Fluticasone-Umeclidin -Vilanter (Trelegy Ellipta) 200-62.5-25 mcg blister with device Discontinued 1 INH INHALATION Daily February 21, 2024 11:00pm June 06, 2024 10:34am Start: 02-22-2024 End: 06-06-2024 Nscyowruyvq-Sntamujnp-Dwoivb er (Trelegy Ellipta) 200-62.5-25 mcg blister with [...] 2 (two) times a day. 11/23/2019 Active rivaroxaban 2.5 mg oral tablet (19 sources) Factor Xa Inhibitor Start: 01-25-2024 End: [...] Ordered: 30-May-2022 DO Start : 30-May-2022 Active Problems Active Problems Problem Classification Problem Date Documented Da te Episodic/Chronic Abdominal pain (12 sources) Unspecified abdominal pain; Translations: [Abdominal pain] Onset: 02-02-2021 Episodic Acute and unspecified renal failure (8 sources) Acute renal failure syndrome; Translations: [Acute kidney failure, unspecified] Onset: 11-20-2024 11-20-2024 Episodic Calculus of urinary tract (20 [...] Coronary atherosclerosis; Translations: [Atherosclerotic heart disease of [place] coronary artery without angina pectoris] Onset: 03-24-2023 [...] in chronic kidney disease] Onset: 10-19-2024 Chronic Deficiency and other anemia (1 source) Iron deficiency anemia; Translations: [Iron deficiency anemia, unspecified] 11-21-2024 Episodic Deficiency and other anemia (2 sources) Iron deficiency anemia, unspecified; Translations: [Iron deficiency anemia, unspecified] Onset: 11-20-2024 11-25-2024 Episodic Diabetes mellitus without complication (20 sources) Glycosuria; [...] Onset: 04-21-2022 Resolved: 04-21-2022 Chronic Nutritional deficiencies (13 sources) Vitamin D deficiency, unspecified; Translations: [Vitamin [...] alveolar hypoventilation] 07-03-2024 Chronic Residual codes; unclassified (10 sources) Idiopathic sleep related nonobstructive alveolar hypoventilation; Translations: [Idiopathic sleep related non-obstructive alveolar hypoventilation] 07-03-2024 Chronic Residual codes; unclassified (13 sources) Obstructive sleep apnea syndrome; Translations: [Obstructive sleep apnea (adult) (pediatric)] 09-03-2024 Chronic Residual codes; unclassified (20 sources) Obstructive sleep apnea (adult) (pediatric); Translations: [Obstructive sleep apnea (adult)(pediatric)] Onset: 10-19-2024 09-03-2024 Chronic Residual codes; unclassified (1 source) Other specified postprocedural states; Translations: [Other postprocedural status] 06-06-2024 Episodic Residual codes; unclassified (1 source) Pain, unspecified; Translations: [Pain, unspecified] Onset: 11-09-2024 Episodic Respiratory failure; insufficiency; arrest (adult) (15 sources) Chronic hypoxemic respiratory failure; Translations: [Chronic respiratory failure with hypoxia] Onset: 11-20-2024 10-28-2024 Chronic Respiratory failure; insufficiency; arrest (adult) (13 sources) Acute respiratory failure; Translations: [Acute respiratory [...] (1 source) [place], Inpatient, Confusion Onset: 11-08-2024 Unclassified (1 source) A [facility] screening has identified you as FRAIL or AT RISK FOR FRAILTY. This puts you at a higher risk for infection, illness, falls, and other injuries. Here are four ways to help you reduce your risk of frailty: 1. IDENTIFY EARLY SIGNS OF FRAILTY Discuss contributing factors and concerns with your doctor 2. BE ACTIVE Walking and light strengthening exercises will help reduce weakness 3. EAT WELL Aim for three healthy meals a day that are high in protein 4. THINK POSITIVE Keep your mind active by being sociable and continuing to learn References: Stay Strong: Four Ways to Beat the Frailty Risk [email or web address] on/uqbx-wuvkht-uvbh- eaby-yf-jszd-the-fra ilty-risk 11-22-2024 Past or Other Problems Problem Classification Problem Date Documented Da te Episodic/Chronic Genitourinary symptoms and ill-defined conditions (20 sources) Proteinuria; Translations: [Proteinuria, unspecified] Onset: 02-14-2024 01-25-2024 Episodic Malaise and fatigue (13 sources) Other fatigue; Translations: [Fatigue] Onset: 10-05-2021 Episodic Other aftercare (1 source) 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; Translations: [CARE HOME CURRENT USE OF ASPIRIN] Onset: 02-04-2021 Episodic Other aftercare (1 source) Other assisted (current) drug therapy; Translations: [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 CURRENT DRUG THERAPY] Onset: 02-04-2021 Episodic Other [...] Test Name Value Interpretation Reference Range Facility Basic Metabolic Panelon 11-16 Anion gap [Moles/Vol] 10.4 mmol/L Normal 6.0-15.0 [facility] Comment on above: Performed By: #### P T, PTT, BNP, CBC #### [facility] [address] Calcium [Mass/Vol] 10.0 mg/dL Normal 8.6-10.3 [facility] Comment on above: Performed By: #### P T, PTT, BNP, CBC #### [address] Chloride [Moles/Vol] 95 mmol/L Low 98-107 [facility] Comment on above: Performed By: #### P T, PTT, BNP, CBC #### [address] CO2 [Moles/Vol] 32.9 mmol/L High 21.0-31.0 [facility] Comment on above: Performed By: #### P T, PTT, BNP, CBC #### [address] Creatinine [Mass/Vol] 2.30 mg/dL High 0.70-1.30 [facility] Comment on above: Performed By: #### P T, PTT, BNP, CBC #### [address] Creatinine Clr Calc Pharmacy 31.25 Normal [facility] Comment on above: Result Comment: PERF ORMED BY: [place] [address] PATHOLOGIST JOCKEY ROOM CUSTODIAN GRANT SCHNEIDER M.D. Performed By: #### P T, PTT, BNP, CBC #### [address] Estimated GFR 29.433 mL/Min Normal [facility] Comment on above: Performed By: #### P T, PTT, BNP, CBC #### [address] Glucose [Mass/Vol] 98 mg/dL Normal 70-100 [facility] Comment on above: Result Comment: [place] Glucose Reference Range is dependent on time and content of last meal. Glucose of more than 200 mg/dL in a nonstressed, ambulatory subject supports the diagnosis of Diabetes Mellitus. ADA recommended reference range Performed By: #### P T, PTT, BNP, CBC #### [address] Potassium [Moles/Vol] 3.3 mmol/L Low 3.5-5.1 [facility] Comment on above: Performed By: #### P T, PTT, BNP, CBC #### [facility] [address] Sodium [Moles/Vol] 135 mmol/L Low 136-145 [facility] Comment on above: Performed By: #### P T, PTT, BNP, CBC #### [facility] [address] Urea nitrogen [Mass/Vol] 43 mg/dL High 7-25 [facility] Comment on above: Performed By: #### P T, PTT, BNP, CBC #### [facility] [address] Basophils Auto (Bld) [#/Vol] Ordered By: Turner Knott on 11-25-2024 Basophils (Bld) [#/Vol] Automated basophil count 0.0-0.2 [facility] Basophils/100 WBC Auto (Bld) Ordered By: Turner Knott on 11-25-2024 Basophils/100 WBC (Bld) Automated basophil % . [facility] Calcium [Mass/volume] in Ser um or PlasmaOrdered By: Turner Knott on 11-25-2024 Calcium [Mass/Vol] Calcium [Mass/volume ] in Serum or Plasma 8.6-10.3 [facility] Carbon dioxide, total [Moles /volume] in Serum or PlasmaOrdered By: Turner Knott on 11-25-2024 CO2 [Moles/Vol] Carbon dioxide, tota l [Moles/volume] in Serum or Plasma High 21.0-31.0 [facility] Chloride [Moles/volume] in S zoey or PlasmaOrdered By: Turner Knott on 11-25-2024 Chloride [Moles/Vol] Chloride [Moles/vol ume] in Serum or Plasma Low 98-107 [facility] Complete Blood Count Auto Di ffon 11-25-2024 Basophils (Bld) [#/Vol] 0.0 10*3/uL Normal 0.0-0.2 [facility] Comment on above: Result Comment: PERF ORMED BY: [place] [address] PATHOLOGIST JOCKEY ROOM CUSTODIAN GRANT SCHNEIDER M.D. Performed By: #### P T, PTT, BNP, CBC #### [address] Basophils/100 WBC (Bld) 0.8 % Normal . [facility] Comment on above: Performed By: #### P T, PTT, BNP, CBC #### [address] Eosinophils (Bld) [#/Vol] 0.0 10*3/uL Normal 0.0-0.45 [facility] Comment on above: Performed By: #### P T, PTT, BNP, CBC #### [address] Eosinophils/100 WBC (Bld) 0.5 % Normal . [facility] Comment on above: Performed By: #### P T, PTT, BNP, CBC #### [address] Erythrocyte distribution width (RBC) [Ratio] 18.5 % High 12.0-14.8 [facility] Comment on above: Performed By: #### P T, PTT, BNP, CBC #### [address] Hematocrit (Bld) [Volume fraction] 29.2 % Low 38.8-50.0 [facility] Comment on above: Performed By: #### P T, PTT, BNP, CBC #### [address] Hemoglobin (Bld) [Mass/Vol] 9.0 g/dL Low 13.0-17.0 [facility] Comment on above: Performed By: #### P T, PTT, BNP, CBC #### [address] Lymphocytes (Bld) [#/Vol] 1.0 10*3/uL Normal 1.00-4.8 [facility] Comment on above: Performed By: #### P T, PTT, BNP, CBC #### [address] Lymphocytes/100 WBC (Bld) 19.1 % Normal . [facility] Comment on above: Performed By: #### P T, PTT, BNP, CBC #### [address] MCH (RBC) [Entitic mass] 22.5 pg Low 27.5-35.2 [facility] Comment on above: Performed By: #### P T, PTT, BNP, CBC #### [address] MCV (RBC) [Entitic vol] 72.8 fL Low 83.5-101 [facility] Comment on above: Performed By: #### P T, PTT, BNP, CBC #### [address] Mean Corpuscular HGB Conc 31.0 g/dL Low 32.5-35.6 [facility] Comment on above: Performed By: #### P T, PTT, BNP, CBC #### [address] Monocytes (Bld) [#/Vol] 0.7 10*3/uL Normal 0.0-0.8 [facility] Comment on above: Performed By: #### P T, PTT, BNP, CBC #### [place] [address] [place] Monocytes/100 WBC (Bld) 13.3 % Normal . [facility] Comment on above: Performed By: #### P T, PTT, BNP, CBC #### [place] [address] [place] Neutrophils (Bld) [#/Vol] 3.3 10*3/uL Normal 1.8-7.7 [facility] Comment on above: Performed By: #### P T, PTT, BNP, CBC #### [address] Neutrophils/100 WBC (Bld) 66.3 % Normal . [facility] Comment on above: Performed By: #### P T, PTT, BNP, CBC #### [address] NRBC% 0.2 /100{WBC} Normal 0-0.5 [facility] Comment on above: Performed By: #### P T, PTT, BNP, CBC #### [address] Platelet mean volume (Bld) [Entitic vol] 7.2 fL Normal 6.6-10.1 [facility] Comment on above: Performed By: #### P T, PTT, BNP, CBC #### [address] Platelets (Bld) [#/Vol] 147 10*3/uL Low 150-450 [facility] Comment on above: Performed By: #### P T, PTT, BNP, CBC #### [address] RBC (Bld) [#/Vol] 4.01 10*6/uL Normal 3.90-5.60 [facility] Comment on above: Performed By: #### P T, PTT, BNP, CBC #### [address] WBC (Bld) [#/Vol] 5.0 10*3/uL Normal 4.1-10.5 [facility] Comment on above: Performed By: #### P T, PTT, BNP, CBC #### [address] Creatinine [Mass/volume] in Serum or PlasmaOrdered By: Turner Knott on 11-25-2024 Creatinine [Mass/Vol] Creatinine [Mass/v olume] in Serum or Plasma High 0.70-1.30 [facility] Eosinophils Auto (Bld) [#/Vo l]Ordered By: Tunrer Knott on 11-25-2024 Eosinophils (Bld) [#/Vol] Automated eosinophil count 0.0-0.45 [facility] Eosinophils/100 WBC Auto (Bl d)Ordered By: Turner Knott on 11-25-2024 Eosinophils/100 WBC (Bld) Automated eosinophil % . [facility] Erythrocyte distribution wid th Auto (RBC) [Ratio]Ordered By: Turner Knott on 11-25-2024 Erythrocyte distribution width (RBC) [Ratio] Erythrocyte distribution width [Ratio] by Automated count High 12.0-14.8 [facility] Glucose [Mass/volume] in Ser um or PlasmaOrdered By: Turner Knott on 11-25-2024 Glucose [Mass/Vol] Glucose [Mass/volume ] in Serum or Plasma 70-100 [facility] Comment on above: ADA recommended refe rence rangeRandom Glucose Reference Range is dependent on time and content of last meal. Glucose of more than 200 mg/dL in a nonstressed, ambulatory subject supports the diagnosis of Diabetes Mellitus. Hematocrit Auto (Bld) [Volum e fraction]Ordered By: Turner Knott on 11-25-2024 Hematocrit (Bld) [Volume fraction] Hematocrit [Volume Fraction] of Blood by Automated count Low 38.8-50.0 [facility] Hemoglobin [Mass/volume] in BloodOrdered By: Turner Knott on 11-25-2024 Hemoglobin (Bld) [Mass/Vol] Hemoglobin [Mass/volume] in Blood Low 13.0-17.0 [facility] Leukocytes [#/volume] correc anna for nucleated erythrocytes in Blood by Automated counOrdered By: Turner Knott on 11-25-2024 WBC corrected for nucl RBC Auto (Bld) [#/Vol] Leukocytes [#/volume] corrected for nucleated erythrocytes in Blood by Automated coun 4.1-10.5 [facility] Lymphocytes Auto (Bld) [#/Vo l]Ordered By: Turner Knott on 11-25-2024 Lymphocytes (Bld) [#/Vol] Lymphocytes [#/volume] in Blood by Automated count 1.00-4.8 [facility] Lymphocytes/100 WBC Auto (Bl d)Ordered By: Turner Knott on 11-25-2024 Lymphocytes/100 WBC (Bld) Lymphocytes/100 leukocytes in Blood by Automated count . [facility] MCH Auto (RBC) [Entitic mass ]Ordered By: Turner Knott on 11-25-2024 MCH (RBC) [Entitic mass] MCH [Entitic mass] by Automated count Low 27.5-35.2 [facility] MCHC Auto (RBC) [Mass/Vol]Or dered By: Turner Knott on 11-25-2024 MCHC (RBC) [Mass/Vol] MCHC [Mass/volume] by Automated count Low 32.5-35.6 [facility] MCV Auto (RBC) [Entitic vol] Ordered By: Turner Knott on 11-25-2024 MCV (RBC) [Entitic vol] MCV [Entitic volume] by Automated count Low 83.5-101 [facility] Monocytes Auto (Bld) [#/Vol] Ordered By: Turner Knott on 11-25-2024 Monocytes (Bld) [#/Vol] Automated blood monocyte count 0.0-0.8 [facility] Monocytes/100 WBC Auto (Bld) Ordered By: Turner Knott on 11-25-2024 Monocytes/100 WBC (Bld) Automated monocyte % . [facility] Neutrophils Auto (Bld) [#/Vo l]Ordered By: Turner Knott on 11-25-2024 Neutrophils (Bld) [#/Vol] Neutrophils [#/volume] in Blood by Automated count 1.8-7.7 [facility] Neutrophils/100 WBC Auto (Bl d)Ordered By: Turner Knott on 11-25-2024 Neutrophils/100 WBC (Bld) Automated neutrophil % . [facility] No Panel InformationOrdered By: Turner Knott on 11-25-2024 Estimated GFR (CKD-EPI) 29.433 mL/Min [facility] Pharmacy Creatinine Clearance (Chem 31.25 [facility] Nucleated erythrocytes [Pres ence] in Blood by Automated countOrdered By: Turner Knott on 11-25-2024 Nucleated RBC Auto Ql (Bld) Nucleated erythrocytes [Presence] in Blood by Automated count 0-0.5 [facility] Platelet mean volume Auto (B ld) [Entitic vol]Ordered By: Turner Knott on 11-25-2024 Platelet mean volume (Bld) [Entitic vol] Platelet mean volume [Entitic volume] in Blood by Automated count 6.6-10.1 [facility] Platelets Auto (Bld) [#/Vol] Ordered By: Turner Knott on 11-25-2024 Platelets (Bld) [#/Vol] Platelets [#/volume] in Blood by Automated count Low 150-450 [facility] Potassium [Moles/volume] in Serum or PlasmaOrdered By: Turner Knott on 11-25-2024 Potassium [Moles/Vol] Potassium [Moles/v olume] in Serum or Plasma Low 3.5-5.1 [facility] RBC Auto (Bld) [#/Vol]Ordere d By: Turner Knott on 11-25-2024 RBC (Bld) [#/Vol] Erythrocytes [#/volu me] in Blood by Automated count 3.90-5.60 [facility] Serum or plasma anion gap de terminationOrdered By: Turner Knott on 11-25-2024 Anion gap [Moles/Vol] Serum or plasma an ion gap determination 6.0-15.0 [facility] Sodium [Moles/volume] in Ser um or PlasmaOrdered By: Turner Knott on 11-25-2024 Sodium [Moles/Vol] Sodium [Moles/volume ] in Serum or Plasma Low 136-145 [facility] Urea nitrogen [Mass/volume] in Serum or PlasmaOrdered By: Turner Knott on 11-25-2024 Urea nitrogen [Mass/Vol] Urea nitrogen [Mass/volume] in Serum or Plasma High 7-25 [facility] WBC Auto (Bld) [#/Vol]Ordere d By: Turner Knott on 11-25-2024 WBC (Bld) [#/Vol] Leukocytes [#/volume ] in Blood by Automated count 4.1-10.5 [facility] Basic Metabolic Panelon 02-0 Anion gap [Moles/Vol] 9.6 mmol/L Normal 6.0-15.0 [facility] Comment on above: Performed By: #### P T, PTT, BNP, CBC #### [address] Calcium [Mass/Vol] 9.6 mg/dL Normal 8.6-10.3 [facility] Comment on above: Performed By: #### P T, PTT, BNP, CBC #### [address] Chloride [Moles/Vol] 94 mmol/L Low 98-107 [facility] Comment on above: Performed By: #### P T, PTT, BNP, CBC #### [address] CO2 [Moles/Vol] 34.4 mmol/L High 21.0-31.0 [facility] Comment on above: Performed By: #### P T, PTT, BNP, CBC #### [address] Creatinine [Mass/Vol] 2.40 mg/dL High 0.70-1.30 [facility] Comment on above: Performed By: #### P T, PTT, BNP, CBC #### [address] Creatinine Clr Calc Pharmacy 29.87 Normal [facility] Comment on above: Result Comment: PERF ORMED BY: [place] [address] PATHOLOGIST [employer] CUSTODIAN GRANT SCHNEIDER M.D. Performed By: #### P T, PTT, BNP, CBC #### [address] Estimated GFR 27.967 mL/Min Normal [facility] Comment on above: Performed By: #### P T, PTT, BNP, CBC #### [address] Glucose [Mass/Vol] 109 mg/dL High 70-100 [facility] Comment on above: Result Comment: [place] Glucose Reference Range is dependent on time and content of last meal. Glucose of more than 200 mg/dL in a nonstressed, ambulatory subject supports the diagnosis of Diabetes Mellitus. ADA recommended reference range Performed By: #### P T, PTT, BNP, CBC #### [facility] [address] Potassium [Moles/Vol] 3.0 mmol/L Low 3.5-5.1 [facility] Comment on above: Performed By: #### P T, PTT, BNP, CBC #### [facility] [address] Sodium [Moles/Vol] 135 mmol/L Low 136-145 [facility] Comment on above: Performed By: #### P T, PTT, BNP, CBC #### [facility] [address] Urea nitrogen [Mass/Vol] 40 mg/dL High 7-25 [facility] Comment on above: Performed By: #### P T, PTT, BNP, CBC #### [facility] [address] lumbar spine wo conon CT lumbar spine wo con [facility] [place] [address] [place] [address] CT Scan Report Signed Patient: Char Alatorre MR#: [id number] 4 : 1950 Acct:[id number] Age/Sex: 73 / M ADM Date: 11/20/24 Loc: Room: [address] [place] [address] Type: ADM IN Attending Dr: Turner Knott DO Copies to: DO Saúl Dennison MD Ordering Provider: Saúl Ace MD Date of Service: 11/23/24 CT/CT thoracic spine wo con: Fall ([id number]) CT/CT lumbar spine wo con: Fall CT thoracic spine wo con, CT lumbar spine wo con 11/23/2024 8:45 PM History: Fall, confusion TECHNIQUE: Multi detector CT axial slices of the thoracolumbar spine were obtained without IV contrast. Volumetric acquisition sagittal, coronal, and 3-D reconstructions were performed and reviewed on a separate workstation. CT was performed with one or more of the following dose reduction techniques: Automated exposure control, adjustment of the mA and/or kV according to patient size, or use of iterative reconstruction technique. COMPARISON: 05/11/2024 and 10/09/2024 FINDINGS: Thoracic spine: There is anterior wedging of the T7 vertebral body with depression of the superior endplate. This is unchanged when compared to the prior CT and appears to be remote. There is preservation of v ertebral body heights otherwise.. No fractures or dislocations are seen. The alignment of the thoracic spine is normal. The paraspinous soft tissues are within normal limits. The visualized lung parenchyma is unremarkable. Atherosclerotic changes are noted in the thoracic aorta and coronary arteries as well as the origins of the great vessels. Dependent atelectasis is noted with a small left-sided pleural effusion. There is partial visualization of cardiomegaly. Lumbar spine: There is preservation of the vertebral body heights. There is severe disc height loss at L2-L3 similar to the prior exam with partial autofusion. There is severe disc height loss at L5-S1. No fractures or dislocations are seen. The alignment of the lumbar spine is normal. The paraspinous soft tissues are within normal limits. The visualized lung parenchyma is unremarkable. 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 There is evidence of previous endovascular repair of the infrarenal abdominal aorta with stents extending into the common and external iliac arteries. 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 This is 1.7 cm in greatest axial dimension. There is a simple cyst in the right renal cortex requiring no further follow-up. There are nonobstructing stones in the left renal collecting system measuring up to 4 mm in greatest dimension. There is mild anasarca with presacral fat stranding. CT/CT thoracic spine wo con IMPRESSION: Thoracic spine: No acute bony abnormality or malalignment. There is a remote compression deformity at T7. Lumbar spine: No acute bony abnormality or malalignment. Degenerative changes are noted as above. Additional chronic findings are noted as described above. Impression dictated by: Char Larios M.D.11/24/2024 9:15 AM Dictation Location: [place] [address] Transcribed By: [facility] 11/24/24914 Dictated By: Char Larios II, MD 11/24/24901 Signed By: 11/24/24914 Normal [facility] Complete Blood Count Auto Di ffon 11-24-2024 Basophils (Bld) [#/Vol] 0.0 10*3/uL Normal 0.0-0.2 [facility] Comment on above: Result Comment: PERF ORMED BY: [place] [address] PATHOLOGIST [employer] CUSTODIAN GRANT SCHNEIDER M.D. Performed By: #### P T, PTT, BNP, CBC #### [address] Basophils/100 WBC (Bld) 0.6 % Normal . [facility] Comment on above: Performed By: #### P T, PTT, BNP, CBC #### [address] Eosinophils (Bld) [#/Vol] 0.0 10*3/uL Normal 0.0-0.45 [facility] Comment on above: Performed By: #### P T, PTT, BNP, CBC #### [address] Eosinophils/100 WBC (Bld) 0.7 % Normal . [facility] Comment on above: Performed By: #### P T, PTT, BNP, CBC #### [address] Erythrocyte distribution width (RBC) [Ratio] 19.0 % High 12.0-14.8 [facility] Comment on above: Performed By: #### P T, PTT, BNP, CBC #### [address] Hematocrit (Bld) [Volume fraction] 27.9 % Low 38.8-50.0 [facility] Comment on above: Performed By: #### P T, PTT, BNP, CBC #### [address] Hemoglobin (Bld) [Mass/Vol] 8.8 g/dL Low 13.0-17.0 [facility] Comment on above: Performed By: #### P T, PTT, BNP, CBC #### [address] Lymphocytes (Bld) [#/Vol] 1.0 10*3/uL Normal 1.00-4.8 [facility] Comment on above: Performed By: #### P T, PTT, BNP, CBC #### [address] Lymphocytes/100 WBC (Bld) 18.6 % Normal . [facility] Comment on above: Performed By: #### P T, PTT, BNP, CBC #### [address] MCH (RBC) [Entitic mass] 22.5 pg Low 27.5-35.2 [facility] Comment on above: Performed By: #### P T, PTT, BNP, CBC #### [address] MCV (RBC) [Entitic vol] 71.1 fL Low 83.5-101 [facility] Comment on above: Performed By: #### P T, PTT, BNP, CBC #### [address] Mean Corpuscular HGB Conc 31.6 g/dL Low 32.5-35.6 [facility] Comment on above: Performed By: #### P T, PTT, BNP, CBC #### [address] Monocytes (Bld) [#/Vol] 0.8 10*3/uL Normal 0.0-0.8 [facility] Comment on above: Performed By: #### P T, PTT, BNP, CBC #### [place] [address] [place] Monocytes/100 WBC (Bld) 14.9 % Normal . [facility] Comment on above: Performed By: #### P T, PTT, BNP, CBC #### [facility] [address] Neutrophils (Bld) [#/Vol] 3.4 10*3/uL Normal 1.8-7.7 [facility] Comment on above: Performed By: #### P T, PTT, BNP, CBC #### [address] Neutrophils/100 WBC (Bld) 65.2 % Normal . [facility] Comment on above: Performed By: #### P T, PTT, BNP, CBC #### [address] NRBC% 0.2 /100{WBC} Normal 0-0.5 [facility] Comment on above: Performed By: #### P T, PTT, BNP, CBC #### [address] Platelet mean volume (Bld) [Entitic vol] 6.9 fL Normal 6.6-10.1 [facility] Comment on above: Performed By: #### P T, PTT, BNP, CBC #### [place] [address] [place] Platelets (Bld) [#/Vol] 152 10*3/uL Normal 150-450 [facility] Comment on above: Performed By: #### P T, PTT, BNP, CBC #### [place] [address] [place] RBC (Bld) [#/Vol] 3.92 10*6/uL Normal 3.90-5.60 [facility] Comment on above: Performed By: #### P T, PTT, BNP, CBC #### [place] [address] [place] WBC (Bld) [#/Vol] 5.2 10*3/uL Normal 4.1-10.5 [facility] Comment on above: Performed By: #### P T, PTT, BNP, CBC #### [facility] [address] Magnesiumon 11-24-2024 Magnesium [Mass/Vol] 1.9 mg/dL Normal 1.9-2.7 [facility] Comment on above: Result Comment: PERF ORMED BY: [place] [address] PATHOLOGIST [employer] CUSTODIAN GRANT SCHNEIDER M.D. Performed By: #### C BC #### [address] Magnesium [Mass/volume] in S zoey or PlasmaOrdered By: Magy Cummings on 11-24-2024 Magnesium [Mass/Vol] Magnesium [Mass/vol ume] in Serum or Plasma 1.9-2.7 [facility] Potassiumon 11-24-2024 Potassium [Moles/Vol] 3.8 mmol/L Normal 3.5-5.1 [facility] Comment on above: Result Comment: PERF ORMED BY: [place] [address] PATHOLOGIST [employer] CUSTODIAN GRANT SCHNEIDER M.D. Performed By: #### P T, PTT, BNP, CBC #### [address] Basic Metabolic Panelon Anion gap [Moles/Vol] 10.9 mmol/L Normal 6.0-15.0 [facility] Comment on above: Performed By: #### C BC #### [address] Calcium [Mass/Vol] 9.8 mg/dL Normal 8.6-10.3 [facility] Comment on above: Performed By: #### C BC #### [address] Chloride [Moles/Vol] 94 mmol/L Low 98-107 [facility] Comment on above: Performed By: #### C BC #### [address] CO2 [Moles/Vol] 34.1 mmol/L High 21.0-31.0 [facility] Comment on above: Performed By: #### C BC #### [address] Creatinine [Mass/Vol] 2.64 mg/dL High 0.70-1.30 [facility] Comment on above: Performed By: #### C BC #### [address] Creatinine Clr Calc Pharmacy 27.76 Normal [facility] Comment on above: Result Comment: PERF ORMED BY: [place] [address] PATHOLOGIST [employer] CUSTODIAN GRANT SCHNEIDER M.D. Performed By: #### C BC #### [address] Estimated GFR 24.945 mL/Min Normal [facility] Comment on above: Performed By: #### C BC #### [address] Glucose [Mass/Vol] 89 mg/dL Normal 70-100 [facility] Comment on above: Result Comment: [place] Glucose Reference Range is dependent on time and content of last meal. Glucose of more than 200 mg/dL in a nonstressed, ambulatory subject supports the diagnosis of Diabetes Mellitus. ADA recommended reference range Performed By: #### C BC #### [address] Potassium [Moles/Vol] 3.0 mmol/L Low 3.5-5.1 [facility] Comment on above: Performed By: #### C BC #### [address] Sodium [Moles/Vol] 136 mmol/L Normal 136-145 [facility] Comment on above: Performed By: #### C BC #### [address] Urea nitrogen [Mass/Vol] 46 mg/dL High 7-25 [facility] Comment on above: Performed By: #### C BC #### [address] Complete Blood Count Auto Di ffon 11-23-2024 Basophils (Bld) [#/Vol] 0.0 10*3/uL Normal 0.0-0.2 [facility] Comment on above: Result Comment: PERF ORMED BY: [place] [address] PATHOLOGIST [employer] CUSTODIAN GRANT SCHNEIDER M.D. Performed By: #### C BC #### [address] Basophils/100 WBC (Bld) 0.6 % Normal . [facility] Comment on above: Performed By: #### C BC #### [address] Eosinophils (Bld) [#/Vol] 0.0 10*3/uL Normal 0.0-0.45 [facility] Comment on above: Performed By: #### C BC #### [address] Eosinophils/100 WBC (Bld) 0.5 % Normal . [facility] Comment on above: Performed By: #### C BC #### [address] Erythrocyte distribution width (RBC) [Ratio] 18.5 % High 12.0-14.8 [facility] Comment on above: Performed By: #### C BC #### [address] Hematocrit (Bld) [Volume fraction] 28.6 % Low 38.8-50.0 [facility] Comment on above: Performed By: #### C BC #### [address] Hemoglobin (Bld) [Mass/Vol] 9.0 g/dL Low 13.0-17.0 [facility] Comment on above: Performed By: #### C BC #### [facility] [address] Lymphocytes (Bld) [#/Vol] 0.9 10*3/uL Low 1.00-4.8 [facility] Comment on above: Performed By: #### C BC #### [address] Lymphocytes/100 WBC (Bld) 18.2 % Normal . [facility] Comment on above: Performed By: #### C BC #### [address] MCH (RBC) [Entitic mass] 22.4 pg Low 27.5-35.2 [facility] Comment on above: Performed By: #### C BC #### [address] MCV (RBC) [Entitic vol] 70.9 fL Low 83.5-101 [facility] Comment on above: Performed By: #### C BC #### [address] Mean Corpuscular HGB Conc 31.5 g/dL Low 32.5-35.6 [facility] Comment on above: Performed By: #### C BC #### [address] Monocytes (Bld) [#/Vol] 0.8 10*3/uL Normal 0.0-0.8 [facility] Comment on above: Performed By: #### C BC #### [address] Monocytes/100 WBC (Bld) 16.3 % Normal . [facility] Comment on above: Performed By: #### C BC #### [address] Neutrophils (Bld) [#/Vol] 3.3 10*3/uL Normal 1.8-7.7 [facility] Comment on above: Performed By: #### C BC #### [address] Neutrophils/100 WBC (Bld) 64.4 % Normal . [facility] Comment on above: Performed By: #### C BC #### [address] NRBC% 0.2 /100{WBC} Normal 0-0.5 [facility] Comment on above: Performed By: #### C BC #### [address] Platelet mean volume (Bld) [Entitic vol] 6.8 fL Normal 6.6-10.1 [facility] Comment on above: Performed By: #### C BC #### [address] Platelets (Bld) [#/Vol] 149 10*3/uL Low 150-450 [facility] Comment on above: Performed By: #### C BC #### [address] RBC (Bld) [#/Vol] 4.03 10*6/uL Normal 3.90-5.60 [facility] Comment on above: Performed By: #### C BC #### [address] WBC (Bld) [#/Vol] 5.2 10*3/uL Normal 4.1-10.5 [facility] Comment on above: Performed By: #### C BC #### [address] Potassiumon 11-23-2024 Potassium [Moles/Vol] 3.7 mmol/L Normal 3.5-5.1 [facility] Comment on above: Result Comment: PERF ORMED BY: [place] [address] PATHOLOGIST [employer] CUSTODIAN GRANT SCHNEIDER M.D. Performed By: #### C BC #### [address] Basic Metabolic Panelon 02-0 Anion gap [Moles/Vol] 10.4 mmol/L Normal 6.0-15.0 [facility] Comment on above: Performed By: #### A DDONUAPLUS #### [address] Calcium [Mass/Vol] 9.1 mg/dL Normal 8.6-10.3 [facility] Comment on above: Performed By: #### A DDONUAPLUS #### [address] Chloride [Moles/Vol] 98 mmol/L Normal 98-107 [facility] Comment on above: Performed By: #### A DDONUAPLUS #### [address] CO2 [Moles/Vol] 30.4 mmol/L Normal 21.0-31.0 [facility] Comment on above: Performed By: #### A DDONUAPLUS #### [address] Creatinine [Mass/Vol] 2.80 mg/dL High 0.70-1.30 [facility] Comment on above: Performed By: #### A DDONUAPLUS #### [address] Creatinine Clr Calc Pharmacy 26.17 Normal [facility] Comment on above: Result Comment: PERF ORMED BY: [place] [address] PATHOLOGIST [employer] CUSTODIAN GRANT SCHNEIDER M.D. Performed By: #### A DDONUAPLUS #### [address] Estimated GFR 23.244 mL/Min Normal [facility] Comment on above: Performed By: #### A DDONUAPLUS #### [address] Glucose [Mass/Vol] 91 mg/dL Normal 70-100 [facility] Comment on above: Result Comment: [place] Glucose Reference Range is dependent on time and content of last meal. Glucose of more than 200 mg/dL in a nonstressed, ambulatory subject supports the diagnosis of Diabetes Mellitus. ADA recommended reference range Performed By: #### A DDONUAPLUS #### [address] Potassium [Moles/Vol] 2.8 mmol/L Off scale low 3.5-5.1 [facility] Comment on above: Result Comment: Crit ical Result Called to and read back by: KRISTOPHER PADRON at: 11/22/2024 04:51:26 by:[email or web address] Performed By: #### A DDONUAPLUS #### [address] Sodium [Moles/Vol] 136 mmol/L Normal 136-145 [facility] Comment on above: Performed By: #### A DDONUAPLUS #### [address] Urea nitrogen [Mass/Vol] 50 mg/dL High 7-25 [facility] Comment on above: Performed By: #### A DDONUAPLUS #### [address] [address] Complete Blood Count Auto Di ffon 11-22-2024 Basophils (Bld) [#/Vol] 0.0 10*3/uL Normal 0.0-0.2 [facility] Comment on above: Result Comment: PERF ORMED BY: [place] [address] PATHOLOGIST JOCKEY ROOM CUSTODIAN GRANT SCHNEIDER M.D. Performed By: #### A DDONUAPLUS #### [address] Basophils/100 WBC (Bld) 0.4 % Normal . [facility] Comment on above: Performed By: #### A DDONUAPLUS #### [address] Eosinophils (Bld) [#/Vol] 0.0 10*3/uL Normal 0.0-0.45 [facility] Comment on above: Performed By: #### A DDONUAPLUS #### [address] Eosinophils/100 WBC (Bld) 0.5 % Normal . [facility] Comment on above: Performed By: #### A DDONUAPLUS #### [address] Erythrocyte distribution width (RBC) [Ratio] 18.6 % High 12.0-14.8 [facility] Comment on above: Performed By: #### A DDONUAPLUS #### [address] Hematocrit (Bld) [Volume fraction] 28.9 % Low 38.8-50.0 [facility] Comment on above: Performed By: #### A DDONUAPLUS #### [address] Hemoglobin (Bld) [Mass/Vol] 9.1 g/dL Low 13.0-17.0 [facility] Comment on above: Performed By: #### A DDONUAPLUS #### [address] Lymphocytes (Bld) [#/Vol] 0.7 10*3/uL Low 1.00-4.8 [facility] Comment on above: Performed By: #### A DDONUAPLUS #### [place] [address] [place] Lymphocytes/100 WBC (Bld) 15.7 % Normal . [facility] Comment on above: Performed By: #### A DDONUAPLUS #### [address] MCH (RBC) [Entitic mass] 22.3 pg Low 27.5-35.2 [facility] Comment on above: Performed By: #### A DDONUAPLUS #### [address] MCV (RBC) [Entitic vol] 70.8 fL Low 83.5-101 [facility] Comment on above: Performed By: #### A DDONUAPLUS #### [address] Mean Corpuscular HGB Conc 31.6 g/dL Low 32.5-35.6 [facility] Comment on above: Performed By: #### A DDONUAPLUS #### [place] [address] [place] Monocytes (Bld) [#/Vol] 0.6 10*3/uL Normal 0.0-0.8 [facility] Comment on above: Performed By: #### A DDONUAPLUS #### [place] [address] [place] Monocytes/100 WBC (Bld) 12.2 % Normal . [facility] Comment on above: Performed By: #### A DDONUAPLUS #### [address] Neutrophils (Bld) [#/Vol] 3.2 10*3/uL Normal 1.8-7.7 [facility] Comment on above: Performed By: #### A DDONUAPLUS #### [place] [address] [place] Neutrophils/100 WBC (Bld) 71.2 % Normal . [facility] Comment on above: Performed By: #### A DDONUAPLUS #### [address] NRBC% 0.1 /100{WBC} Normal 0-0.5 [facility] Comment on above: Performed By: #### A DDONUAPLUS #### [address] Platelet mean volume (Bld) [Entitic vol] 6.8 fL Normal 6.6-10.1 [facility] Comment on above: Performed By: #### A DDONUAPLUS #### [place] [address] [place] Platelets (Bld) [#/Vol] 144 10*3/uL Low 150-450 [facility] Comment on above: Performed By: #### A DDONUAPLUS #### [address] RBC (Bld) [#/Vol] 4.08 10*6/uL Normal 3.90-5.60 [facility] Comment on above: Performed By: #### A DDONUAPLUS #### [address] WBC (Bld) [#/Vol] 4.5 10*3/uL Normal 4.1-10.5 [facility] Comment on above: Performed By: #### A DDONUAPLUS #### [address] Magnesiumon 11-22-2024 Magnesium [Mass/Vol] 2.0 mg/dL Normal 1.9-2.7 [facility] Comment on above: Order Comment: sent line draw up Result Comment: PERF ORMED BY: [place] [address] PATHOLOGIST JOCKEY ROOM CUSTODIAN GRANT SCHNEIDER M.D. Performed By: #### C BC #### [address] Potassiumon 11-22-2024 Potassium [Moles/Vol] 2.9 mmol/L Off scale low 3.5-5.1 [facility] Comment on above: Order Comment: sent line draw up Result Comment: Crit ical Result Called to and read back by: VALDEZ CHI at: 11/22/2024 14:29:13 by:MLG PERFORMED BY: [place] [address] PATHOLOGIST JOCKEY ROOM CUSTODIAN GRANT SCHNEIDER M.D. Performed By: #### P T, PTT, BNP, CBC #### [address] PRANAY Antinuclear Antibodieson 11-21-2024 Antinuclear Abs, IFA Negative Normal . [facility] Comment on above: Result Comment: Nega tive <1:80 Borderline 1:80 Positive >1:80 ICAP nomenclature: [id number] For more information about Hep-2 cell patterns use ANApatterns.org, the official website for the International Consensus on Antinuclear Antibody (PRANAY) Patterns (ICAP). Speckled cytoplasmic fluorescence is present. The antibodies noted in this pattern may be associated with, but not restricted to, primary biliary cirrhosis (PBC), polymyositis and dermatomyositis (PM/DM), and/or systemic lupus erythematosus (SLE). Performed at: [address] [id number] Gas Inspector: Contreras Pollard PhD, Phone: [phone] Performed By: #### P T, PTT, BNP, CBC #### [address] ANCA Profile (ANCA+MPO+PR3)o n 11-21-2024 Antimyeloperoxidase (MPO) Abs <0.2 Normal 0.0-0.9 [facility] Comment on above: Performed By: #### P T, PTT, BNP, CBC #### [address] Atypical pANCA <1:20 Normal Neg:<1:20 [facility] Comment on above: Result Comment: The atypical pANCA pattern has been observed in a significant percentage of patients with ulcerative colitis, primary sclerosing cholangitis and autoimmune hepatitis. Performed at: [address] [id number] Gas Inspector: Camelia Tapia MD, Phone: [phone] Performed at: [address] [id number] Gas Inspector: Contreras Pollard PhD, Phone: [phone] Performed By: #### P T, PTT, BNP, CBC #### [place] [address] [place] Cytoplasmic (C-ANCA) <1:20 Normal Neg:<1:20 [facility] Comment on above: Performed By: #### P T, PTT, BNP, CBC #### [place] [address] [place] Perinuclear (P-ANCA) <1:20 Normal Neg:<1:20 [facility] Comment on above: Result Comment: The presence of positive fluorescence exhibiting P-ANCA or C-ANCA patterns alone is not specific for the diagnosis of Gogo's Granulomatosis (WG) or microscopic polyangiitis. Decisions about treatment should not be based solely on ANCA IFA results. The International ANCA Group Consensus recommends follow up testing of positive sera with both RI- 3 and MPO-ANCA enzyme immunoassays. As many as 5% serum samples are positive only by EIA. Ref. AM J Clin Pathol 1999;111:507-513. Performed By: #### P T, PTT, BNP, CBC #### [address] Proteinase 3 (PR3) Antibodies 6.0 High 0.0-0.9 [facility] Comment on above: Result Comment: PERF ORMED BY: [place] [address] PATHOLOGIST JOCKEY ROOM CUSTODIAN GRANT SCHNEIDER M.D. Performed By: #### P T, PTT, BNP, CBC #### [address] Appearance of UrineOrdered B y: Magy Cummings on 11-21-2024 Appearance (U) Urine appearance Clear [facility] B-Type Natriuretic Peptideon 11-21-2024 Natriuretic peptide B (Bld) [Mass/Vol] 4694.0 pg/mL High 5-100 [facility] Comment on above: Result Comment: PERF ORMED BY: [place] [address] PATHOLOGIST JOCKEY ROOM CUSTODIAN GRANT SCHNEIDER M.D. Performed By: #### P T, PTT, BNP, CBC #### [place] [id number] [place] Bacteria [Presence] in Urine by AutomatedOrdered By: Magy Cummings on 11-21-2024 Bacteria Auto Ql (U) Bacteria [Presence] in Urine by Automated None Seen [facility] Basic Metabolic Panelon Anion gap [Moles/Vol] 10.9 mmol/L Normal 6.0-15.0 [facility] Comment on above: Performed By: #### A DDONUAPLUS #### [facility] [address] Calcium [Mass/Vol] 9.2 mg/dL Normal 8.6-10.3 [facility] Comment on above: Performed By: #### A DDONUAPLUS #### [place] [address] [place] Chloride [Moles/Vol] 101 mmol/L Normal 98-107 [facility] Comment on above: Performed By: #### A DDONUAPLUS #### [place] [address] [place] CO2 [Moles/Vol] 26.7 mmol/L Normal 21.0-31.0 [facility] Comment on above: Performed By: #### A DDONUAPLUS #### [place] [address] [place] Creatinine [Mass/Vol] 2.94 mg/dL High 0.70-1.30 [facility] Comment on above: Performed By: #### A DDONUAPLUS #### [place] [address] [place] Creatinine Clr Calc Pharmacy 24.93 Normal [facility] Comment on above: Performed By: #### A DDONUAPLUS #### [address] Estimated GFR 21.923 mL/Min Normal [facility] Comment on above: Performed By: #### A DDONUAPLUS #### [place] [address] [place] Glucose [Mass/Vol] 100 mg/dL Normal 70-100 [facility] Comment on above: Result Comment: [place] Glucose Reference Range is dependent on time and content of last meal. Glucose of more than 200 mg/dL in a nonstressed, ambulatory subject supports the diagnosis of Diabetes Mellitus. ADA recommended reference range Performed By: #### A DDONUAPLUS #### [place] [address] [place] Potassium [Moles/Vol] 3.6 mmol/L Normal 3.5-5.1 [facility] Comment on above: Performed By: #### A DDONUAPLUS #### [address] Sodium [Moles/Vol] 135 mmol/L Low 136-145 [facility] Comment on above: Performed By: #### A DDONUAPLUS #### [address] Urea nitrogen [Mass/Vol] 58 mg/dL High 7-25 [facility] Comment on above: Performed By: #### A DDONUAPLUS #### [address] Bilirubin Test strip Ql (U)O rdered By: Magy Cummings on 11-21-2024 Bilirubin Ql (U) Bilirubin.total [Pre sence] in Urine by Test strip Negative [facility] Color Auto (U)Ordered By: Ab tiarra Cummings on 11-21-2024 Color (U) Color of Urine by Auto Yellow Fi [facility] Complete Blood Count Auto Di ffon 11-21-2024 Basophils (Bld) [#/Vol] 0.0 10*3/uL Normal 0.0-0.2 [facility] Comment on above: Performed By: #### A DDONUAPLUS #### [place] [address] [place] Basophils/100 WBC (Bld) 0.5 % Normal . [facility] Comment on above: Performed By: #### A DDONUAPLUS #### [place] [address] [place] Eosinophils (Bld) [#/Vol] 0.0 10*3/uL Normal 0.0-0.45 [facility] Comment on above: Performed By: #### A DDONUAPLUS #### [place] [address] [place] Eosinophils/100 WBC (Bld) 0.8 % Normal . [facility] Comment on above: Performed By: #### A DDONUAPLUS #### [address] Erythrocyte distribution width (RBC) [Ratio] 18.8 % High 12.0-14.8 [facility] Comment on above: Performed By: #### A DDONUAPLUS #### [address] Hematocrit (Bld) [Volume fraction] 29.0 % Low 38.8-50.0 [facility] Comment on above: Performed By: #### A DDONUAPLUS #### [address] Hemoglobin (Bld) [Mass/Vol] 9.1 g/dL Low 13.0-17.0 [facility] Comment on above: Performed By: #### A DDONUAPLUS #### [address] Lymphocytes (Bld) [#/Vol] 0.6 10*3/uL Low 1.00-4.8 [facility] Comment on above: Performed By: #### A DDONUAPLUS #### [address] Lymphocytes/100 WBC (Bld) 11.8 % Normal . [facility] Comment on above: Performed By: #### A DDONUAPLUS #### [address] MCH (RBC) [Entitic mass] 22.4 pg Low 27.5-35.2 [facility] Comment on above: Performed By: #### A DDONUAPLUS #### [address] MCV (RBC) [Entitic vol] 71.4 fL Low 83.5-101 [facility] Comment on above: Performed By: #### A DDONUAPLUS #### [address] Mean Corpuscular HGB Conc 31.3 g/dL Low 32.5-35.6 [facility] Comment on above: Performed By: #### A DDONUAPLUS #### [place] [address] [place] Monocytes (Bld) [#/Vol] 0.7 10*3/uL Normal 0.0-0.8 [facility] Comment on above: Performed By: #### A DDONUAPLUS #### [place] [address] [place] Monocytes/100 WBC (Bld) 13.3 % Normal . [facility] Comment on above: Performed By: #### A DDONUAPLUS #### [address] Neutrophils (Bld) [#/Vol] 3.7 10*3/uL Normal 1.8-7.7 [facility] Comment on above: Performed By: #### A DDONUAPLUS #### [address] Neutrophils/100 WBC (Bld) 73.6 % Normal . [facility] Comment on above: Performed By: #### A DDONUAPLUS #### [address] NRBC% 0.1 /100{WBC} Normal 0-0.5 [facility] Comment on above: Performed By: #### A DDONUAPLUS #### [address] Platelet mean volume (Bld) [Entitic vol] 6.8 fL Normal 6.6-10.1 [facility] Comment on above: Performed By: #### A DDONUAPLUS #### [place] [address] [place] Platelets (Bld) [#/Vol] 160 10*3/uL Significant change down 150-450 [facility] Comment on above: Performed By: #### A DDONUAPLUS #### [place] [address] [place] RBC (Bld) [#/Vol] 4.05 10*6/uL Normal 3.90-5.60 [facility] Comment on above: Performed By: #### A DDONUAPLUS #### [facility] [address] [place] [address] [place] WBC (Bld) [#/Vol] 5.1 10*3/uL Normal 4.1-10.5 [facility] Comment on above: Performed By: #### A DDONUAPLUS #### [place] [address] [place] Creatinine [Mass/volume] in UrineOrdered By: Magy Cummings on 11-21-2024 Creatinine (U) [Mass/Vol] Creatinine [Mass/volume] in Urine [facility] Comment on above: No reference range e stablished Dipstick and Microscopicon 0 11-21-2024 Appearance (U) Clear Normal Clear [facility] Comment on above: Order Comment: Name Collection Type:: Benavidez Catheter Performed By: #### P T, PTT, BNP, CBC #### [place] [address] [place] Bacteria,Urine Rare Normal None Seen [facility] Comment on above: Order Comment: Name Collection Type:: Benavidez Catheter Performed By: #### P T, PTT, BNP, CBC #### [place] [address] [place] Bilirubin,Urine Negative Normal Negative [facility] Comment on above: Order Comment: Name Collection Type:: Benavidez Catheter Performed By: #### P T, PTT, BNP, CBC #### [place] [address] [place] Color (U) Light-Yellow Normal Yellow [facility] Comment on above: Order Comment: Name Collection Type:: Benavidez Catheter Performed By: #### P T, PTT, BNP, CBC #### [facility] [address] [place] [address] [place] Glucose Ql (U) 100 mg/dL High Normal [facility] Comment on above: Order Comment: Name Collection Type:: Benavidez Catheter Performed By: #### P T, PTT, BNP, CBC #### [place] [address] [place] Hyaline Casts,Urine 0 [LPF] Normal 0-8 [facility] Comment on above: Order Comment: Name Collection Type:: Benavidez Catheter Performed By: #### P T, PTT, BNP, CBC #### [address] Ketones Ql (U) Negative Normal Negative [facility] Comment on above: Order Comment: Name Collection Type:: Benavidez Catheter Performed By: #### P T, PTT, BNP, CBC #### [address] Leukocyte esterase Test strip Ql (U) Negative Normal Negative [facility] Comment on above: Order Comment: Name Collection Type:: Benavidez Catheter Performed By: #### P T, PTT, BNP, CBC #### [address] Mucus,Urine Rare Normal [facility] Comment on above: Order Comment: Name Collection Type:: Benavidez Catheter Result Comment: PERF ORMED BY: [place] [address] PATHOLOGIST JOCKEY ROOM CUSTODIAN GRANT SCHNEIDER M.D. Performed By: #### P T, PTT, BNP, CBC #### [address] Nitrite,Urine Negative Normal Negative [facility] Comment on above: Order Comment: Name Collection Type:: Benavidez Catheter Performed By: #### P T, PTT, BNP, CBC #### [address] Occult Blood,Urine 2+ High Negative [facility] Comment on above: Order Comment: Name Collection Type:: Benavidez Catheter Result Comment: PERF ORMED BY: [place] [address] PATHOLOGIST JOCKEY ROOM CUSTODIAN GRANT SCHNEIDER M.D. Performed By: #### P T, PTT, BNP, CBC #### [address] pH (U) 5.0 [pH] Normal 5.0-9.0 [facility] Comment on above: Order Comment: Name Collection Type:: Benavidez Catheter Performed By: #### P T, PTT, BNP, CBC #### [address] Protein,Urine Negative Normal Negative [facility] Comment on above: Order Comment: Name Collection Type:: Benavidez Catheter Performed By: #### P T, PTT, BNP, CBC #### [address] RBC,Urine 50 [HPF] High 0-4 [facility] Comment on above: Order Comment: Name Collection Type:: Benavidez Catheter Performed By: #### P T, PTT, BNP, CBC #### [address] Specificy [place],Urine 1.009 Normal 1.001-1.03 0 [facility] Comment on above: Order Comment: Name Collection Type:: Benavidez Catheter Performed By: #### P T, PTT, BNP, CBC #### [address] Squamous Epithelial Cell,Urine 1 [HPF] Normal 0-2 [facility] Comment on above: Order Comment: Name Collection Type:: Benavidez Catheter Performed By: #### P T, PTT, BNP, CBC #### [address] Urobilinogen,Urine Normal Normal Normal [facility] Comment on above: Order Comment: Name Collection Type:: Benavidez Catheter Performed By: #### P T, PTT, BNP, CBC #### [place] [address] [place] WBC,Urine 1 [HPF] Normal 0-4 [facility] Comment on above: Order Comment: Name Collection Type:: Benavidez Catheter Performed By: #### P T, PTT, BNP, CBC #### [address] ECG 12 lead ECGon 11-21-2024 ECG 12 lead ECG [facility] [place] [address] [place] [address] Electrocardiograph Report Signed Patient: Char Alatorre MR#: [id number] 4 : 1950 Acct:[id number] Age/Sex: 73 / M ADM Date: 11/20/24 Loc: Room: [address] [place] [address] Type: ADM IN Attending Dr: Turner Knott DO Ordering Provider: Turner Knott DO Date of Service: 11/20/2403/09/1416 ECG/ECG 12 lead ECG: chf Copies to: Test Reason : Blood Pressure : */* mmHG Vent. Rate : 86 BPM Atrial Rate : 86 BPM P-R Int : 214 ms QRS Dur : 108 ms QT Int : 386 ms P-R-T Axes : 62 -29 131 degrees QTcB Int : 461 ms Sinus rhythm with 1st degree AV block Possible Left atrial enlargement Incomplete left bundle branch block Minimal voltage criteria for LVH, may be normal variant ( [place] product ) Nonspecific ST and T wave abnormality Prolonged QT Abnormal ECG When compared with ECG of 20-Nov-2024 09:59, (Unconfirmed) QRS axis shifted left T wave inversion no longer evident in Inferior leads T wave inversion no longer evident in Lateral leads Confirmed by LILIAN HAHN MD ([id number]) on 11/21/2024 9:23:43 AM Referred By: Electronically Signed By: LILIAN HAHN MD Transcribed By: MUS Signed By Lilian Hahn MD 0 11/21/24 0923 Normal [facility] Epithelial cells.squamous [# /area] in Urine sediment by Automated countOrdered By: Magy Cummings on 11-21-2024 Epithelial cells.squamous Auto (Urine sed) [#/Area] Epithelial cells.squamous [#/area] in Urine sediment by Automated count 0-2 [facility] Erythrocytes [#/area] in Uri ne sediment by Automated countOrdered By: Magy Cummings on 11-21-2024 RBC Auto (Urine sed) [#/Area] Erythrocytes [#/area] in Urine sediment by Automated count High 0-4 [facility] FE PROon 11-21-2024 % Iron Saturation 4.6 % Low 20-50 [facility] Comment on above: Performed By: #### A DDONUAPLUS #### [facility] [address] [place], [place] [id number] [facility] Ferritin [Mass/Vol] 50.9 ng/mL Normal 23.9-336.2 [facility] Comment on above: Performed By: #### A DDONUAPLUS #### [address] Iron [Mass/Vol] 14 ug/dL Low 50-212 [facility] Comment on above: Performed By: #### A DDONUAPLUS #### [address] Total Iron Binding Capacity 307 ug/dL Normal 255-450 [facility] Comment on above: Performed By: #### A DDONUAPLUS #### [place] [id number] [facility] Transferrin [Mass/Vol] 219 mg/dL Normal 203-362 [facility] Comment on above: Performed By: #### A DDONUAPLUS #### [place] [address] [place] Ferritin [Mass/volume] in Se rum or PlasmaOrdered By: Turner Knott on 11-21-2024 Ferritin [Mass/Vol] Ferritin [Mass/volum e] in Serum or Plasma 23.9-336.2 [facility] Folateon 11-21-2024 Folate 8.2 ng/mL Normal >5.9 [facility] Comment on above: Result Comment: Rossi te reference range: >5.9 ng/ml The WHO technical consultation on folate and vitamin b12 deficiencies has determined that folate concentrations less than 4 ng/ml are considered deficient. PERFORMED BY: [place] [address] PATHOLOGIST JOCKEY ROOM CUSTODIAN GRANT SCHNEIDER M.D. Performed By: #### A DDONUAPLUS #### [place] [id number] [place] Folate [Mass/volume] in Seru m or PlasmaOrdered By: Turner Knott on 11-21-2024 Folate [Mass/Vol] Folate [Mass/volume] in Serum or Plasma >5.9 [facility] Comment on above: Folate reference ran ge: >5.9 ng/mlThe WHO technical consultation on folate and vitamin [id number] has determined that folate concentrations lessthan 4 ng/ml are considered deficient. Free K+L LT Chains, Qn Son 11-21-2024 Free [place] Light Chains, S 111.1 mg/L High 3.3-19.4 [facility] Comment on above: Performed By: #### P T, PTT, BNP, CBC #### [facility] [address] [place] [address] [place] Free [place] Light Chains, S 63.4 mg/L High 5.7-26.3 [facility] Comment on above: Performed By: #### P T, PTT, BNP, CBC #### [place] [address] [place]/Lambda Ratio, S 1.75 High 0.26-1.65 [facility] Comment on above: Result Comment: Perf ormed at: CB - [facility] [place] [id number] Gas Inspector: Contreras Pollard PhD, Phone: [phone] Performed By: #### P T, PTT, BNP, CBC #### [facility] [address] [place] [address] Glucose [Mass/volume] in Uri ne by Test stripOrdered By: Magy Cummings on 11-21-2024 Glucose Test strip (U) [Mass/Vol] Glucose [Mass/volume] in Urine by Test strip [facility] Normal [facility] Hemoglobin Test strip Ql (U) Ordered By: Magy Cummings on 11-21-2024 Hemoglobin Ql (U) Hemoglobin [Presence ] in Urine by Test strip High Negative [facility] Hyaline casts [#/area] in Ur ine sediment by Automated countOrdered By: Magy Cummings on 11-21-2024 Hyaline casts Auto (Urine sed) [#/Area] Hyaline casts [#/area] in Urine sediment by Automated count 0-8 [facility] Iron [Mass/volume] in Serum or PlasmaOrdered By: Turner Knott on 11-21-2024 Iron [Mass/Vol] Iron [Mass/volume] i n Serum or Plasma Low 50-212 [facility] Ketones Test strip Ql (U)Ord ered By: Magy Cummings on 11-21-2024 Ketones Ql (U) Ketones [Presence] i n Urine by Test strip Negative [facility] Leukocyte esterase [Presence ] in Urine by Test stripOrdered By: Magy Cummings on 11-21-2024 Leukocyte esterase Test strip Ql (U) Leukocyte esterase [Presence] in Urine by Test strip Negative [facility] Leukocytes [#/area] in Urine sediment by Automated countOrdered By: Magy Cummings on 11-21-2024 WBC Auto (Urine sed) [#/Area] Leukocytes [#/area] in Urine sediment by Automated count 0-4 [facility] Mucus [Presence] in Urine by AutomatedOrdered By: Magy Cummings on 11-21-2024 Mucus Auto Ql (U) Mucus [Presence] in Urine by Automated [facility] Natriuretic peptide B [Mass/ Vol]Ordered By: Turner Knott on 11-21-2024 Natriuretic peptide B (Bld) [Mass/Vol] BNP ser/plas High 5-100 [facility] Nitrite Test strip Ql (U)Ord ered By: Magy Cummings on 11-21-2024 Nitrite Ql (U) Nitrite [Presence] i n Urine by Test strip Negative [facility] Prealbuminon 11-21-2024 Prealbumin [Mass/Vol] 9.1 mg/dL Low 17.0-34.0 [facility] Comment on above: Performed By: #### A DDONUAPLUS #### [address] Prealbumin [Mass/volume] in Serum or PlasmaOrdered By: Turner Knott on 11-21-2024 Prealbumin [Mass/Vol] Prealbumin [Mass/v olume] in Serum or Plasma Low 17.0-34.0 [facility] Protein Creat Ratio Ur Rando mon 11-21-2024 Creatinine, Urine (Random) 29.00 mg/dL Normal [facility] Comment on above: Result Comment: No r eference range established Performed By: #### P T, PTT, BNP, CBC #### [address] Protein (U) [Mass/Vol] 14 mg/dL High 0-9 [facility] Comment on above: Performed By: #### P T, PTT, BNP, CBC #### [address] Urine Protein/Creatinine Ratio 483 mg/g{Cre} High 0-200 [facility] Comment on above: Result Comment: PERF ORMED BY: [place] [address] PATHOLOGIST [employer] CUSTODIAN GRANT SCHNEIDER M.D. Performed By: #### P T, PTT, BNP, CBC #### [address] Protein Test strip (U) [Mass /Vol]Ordered By: Magy Cummings on 11-21-2024 Protein (U) [Mass/Vol] Protein [Mass/vol ume] in Urine by Test strip Negative [facility] Protein [Mass/volume] in Uri neOrdered By: Magy Cummings on 11-21-2024 Protein (U) [Mass/Vol] Protein [Mass/vol ume] in Urine High 0-9 [facility] Reticulocyte Counton 025 Reticulocyte Number 0.104 10*6/uL High 0.024-0 .08 4 [facility] Comment on above: Result Comment: PERF ORMED BY: [place] [address] PATHOLOGIST [employer] CUSTODIAN GRANT SCHNEIDER M.D. Performed By: #### A DDONUAPLUS #### [address] Reticulocyte Percent 2.6 % High 0.5-1.5 [facility] Comment on above: Performed By: #### A DDONUAPLUS #### [place] [address] [facility] Reticulocytes [#/volume] in BloodOrdered By: Turner Knott on 11-21-2024 Reticulocytes (Bld) [#/Vol] Absolute reticulocyte count High 0.024-0.08 4 [facility] Reticulocytes/100 RBC Auto ( Bld)Ordered By: Turner Knott on 11-21-2024 Reticulocytes/100 RBC (Bld) Reticulocyte % auto High 0.5-1.5 [facility] Serum free kappa light chain measurementOrdered By: Turner Knott on 11-21-2024 Immunoglobulin light chains.kappa.free (S) [Mass/Vol] Immunoglobulin light chains.kappa.free [Mass/volume] in Serum High 3.3-19.4 [facility] Serum immunoglobulin free ka ppa light chains/immunoglobulin free lambda light chainsOrdered By: Turner Knott on 11-21-2024 Immunoglobulin light chains.kappa.free/Immu noglobulin light chains.lambda.free (S) [Mass ratio] Immunoglobulin light chains.kappa.free/Immunogl obulin light chains.lambda.free [Mass High 0.26-1.65 [facility] Comment on above: Performed at: [email or web address] [address] [id number] Director: Contreras Pollard PhD, Phone: [phone] Serum nuclear antibody titer Ordered By: Turner Knott on 11-21-2024 Nuclear Ab (S) [Titer] Serum nuclear ant ibody titer . [facility] Comment on above: Negative <1:80 Borde rline 1:80 Positive >1:80ICAP nomenclature: AC-[id number] more information about Hep-2 cell patterns useANApatterns.org, the official website for theInternational Consensus on Antinuclear Antibody (PRANAY)Patterns (ICAP).Speckled cytoplasmic fluorescence is present. Theantibodies noted in this pattern may be associated with,but not restricted to, primary biliary cirrhosis (PBC),polymyositis and dermatomyositis (PM/DM), and/or systemiclupus erythematosus (SLE).Performed at: [id number] [place], [place] [id number] Director: Contreras Pollard PhD, Phone: [phone] Serum or plasma immunoglobul in free lambda light chains measurement (mass/volume)Ordered By: Turner Knott on 11-21-2024 Immunoglobulin light chains.lambda.free [Mass/Vol] Immunoglobulin light chains.lambda.free [Mass/volume] in Serum or Plasma High 5.7-26.3 [facility] Serum or plasma iron binding capacity measurement (mass/volume)Ordered By: Turner Knott on 11-21-2024 Iron binding capacity [Mass/Vol] Iron binding capacity [Mass/volume] in Serum or Plasma 255-450 [facility] Serum or plasma iron saturat ion measurement (mass fraction)Ordered By: Turner Knott on 11-21-2024 Iron saturation [Mass fraction] Iron saturation [Mass Fraction] in Serum or Plasma Low 20-50 [facility] Specific gravity Test strip (U) [Rel density]Ordered By: Magy Cummings on 11-21-2024 Specific gravity (U) [Rel density] Specific gravity of Urine by Test strip 1.001-1.03 0 [facility] Transferrin [Mass/volume] in Serum or PlasmaOrdered By: Turner Knott on 11-21-2024 Transferrin [Mass/Vol] Transferrin [Mass /volume] in Serum or Plasma 203-362 [facility] Urine protein/creatinine rat ioOrdered By: Magy Cummings on 11-21-2024 Protein/Creatinine (U) [Ratio] Urine protein/creatinine ratio High 0-200 [facility] Urobilinogen Test strip (U) [Mass/Vol]Ordered By: Magy Cummings on 11-21-2024 Urobilinogen (U) [Mass/Vol] Urobilinogen [Mass/volume] in Urine by Test strip Normal [facility] Vitamin B12on 11-21-2024 Cobalamin (Vitamin B12) [Mass/Vol] 734 pg/mL Normal 180-914 [facility] Comment on above: Performed By: #### A DDONUAPLUS #### [address] Vitamin B12 ser/plasOrdered By: Turner Knott on 11-21-2024 Cobalamin (Vitamin B12) [Mass/Vol] Vitamin B12 ser/plas 180-914 [facility] X-ray reportOrdered By: George Mathias on 11-21-2024 Study report [facility] Main [address] [address] XRay Report Signed Patient: Char Alatorre MR#: [id number] : 1950 Acct:[id number] Age/Sex: 73 / M ADM Date: 5 Loc: Room: [address] [place] [address] Type: ADM IN Attending Dr: Turner Knott DO Copies to: Turner Knott DO~ Ordering Provider: Turner Knott DO Date of Service: 11/21/24 XR/XR foot LT min 3V*: bruised toes LEFT FOOT - 3 views CLINICAL HISTORY: Bruising of toes left foot. No known injury. COMPARISON: None FINDINGS: Soft tissue swelling is present. Bones are grossly demineralized. Toe positioning is suboptimal. No definitive fracture is seen. Plantar spurring. No bony erosions. Degenerative changes involving the first MTP joint. XR/XR foot LT min 3V* IMPRESSION: SOFT TISSUE SWELLING WITHOUT ACUTE BONY PROCESS. Impression dictated by: Lakhwinder Mathias Jr., D.OSawyer11/21/2024 3:53 PM Dictation Location: [place] [address] Transcribed By: [facility] 11/21/24 1553 Dictated By: Lakhwinder Mathias Jr, DO 11/21/24 1552 Signed By: 11/21/24 1553 [facility] XR foot LT min 3V*on 025 XR foot LT min 3V* [facility] Main [address] [address] XRay Report Signed Patient: Char Alatorre MR#: [id number] 4 : 1950 Acct:[id number] Age/Sex: 73 / M ADM Date: 11/20/24 Loc: Room: [address] [place] [address] Type: ADM IN Attending Dr: Turner Knott DO Copies to: Turner Knott DO Ordering Provider: Turner Knott DO Date of Service: 11/21/24 XR/XR foot LT min 3V*: bruised toes LEFT FOOT - 3 views CLINICAL HISTORY: Bruising of toes left foot. No known injury. COMPARISON: None FINDINGS: Soft tissue swelling is present. Bones are grossly demineralized. Toe positioning is suboptimal. No definitive fracture is seen. Plantar spurring. No bony erosions. Degenerative changes involving the first MTP joint. XR/XR foot LT min 3V* IMPRESSION: SOFT TISSUE SWELLING WITHOUT ACUTE BONY PROCESS. Impression dictated by: Lakhwinder Mathias Jr., D.O.11/21/2024 3:53 PM Dictation Location: [place] [address] Transcribed By: [facility] 11/21/24 1553 Dictated By: Lakhwinder Mathias Jr, DO 11/21/24 1552 Signed By: 11/21/24 1553 Normal [facility] pH Test strip (U)Ordered By: Magy Cummings on 11-21-2024 pH (U) pH of Urine by Test strip 5.0-9.0 [facility] Alanine aminotransferase [En zymatic activity/volume] in Serum or PlasmaOrdered By: Turner Knott on 11-20-2024 ALT [Catalytic activity/Vol] Alanine aminotransferase [Enzymatic activity/volume] in Serum or Plasma High 7-52 [facility] Albumin [Mass/volume] in Ser um or Plasma by Bromocresol green (BCG) dye binding methoOrdered By: Turner Knott on 11-20-2024 Albumin BCG dye [Mass/Vol] Albumin [Mass/volume] in Serum or Plasma by Bromocresol green (BCG) dye binding metho Low 3.5-5.7 [facility] Alkaline phosphatase [Enzyma tic activity/volume] in Serum or PlasmaOrdered By: Turner Knott on 11-20-2024 ALP [Catalytic activity/Vol] Alkaline phosphatase [Enzymatic activity/volume] in Serum or Plasma High 34-104 [facility] Aspartate aminotransferase [ Enzymatic activity/volume] in Serum or PlasmaOrdered By: Turner Knott on 11-20-2024 AST [Catalytic activity/Vol] Aspartate aminotransferase [Enzymatic activity/volume] in Serum or Plasma High 13-39 [facility] B-Type Natriuretic Peptideon 11-20-2024 Natriuretic peptide B (Bld) [Mass/Vol] 5962.0 pg/mL High 5-100 [facility] Comment on above: Result Comment: PERF ORMED BY: [place] [address] PATHOLOGIST [employer] CUSTODIAN GRANT SCHNEIDER M.D. Performed By: #### P T, PTT, BNP, CBC #### [address] Basic Metabolic Panelon Anion gap [Moles/Vol] 11.7 mmol/L Normal 6.0-15.0 [facility] Comment on above: Performed By: #### P T, PTT, BNP, CBC #### [address] Calcium [Mass/Vol] 9.5 mg/dL Normal 8.6-10.3 [facility] Comment on above: Performed By: #### P T, PTT, BNP, CBC #### [place] [address] [place] Chloride [Moles/Vol] 101 mmol/L Normal 98-107 [facility] Comment on above: Performed By: #### P T, PTT, BNP, CBC #### [place] [address] [place] CO2 [Moles/Vol] 22.7 mmol/L Normal 21.0-31.0 [facility] Comment on above: Performed By: #### P T, PTT, BNP, CBC #### [address] Creatinine [Mass/Vol] 3.04 mg/dL High 0.70-1.30 [facility] Comment on above: Performed By: #### P T, PTT, BNP, CBC #### [facility] [address] Estimated GFR 21.060 mL/Min Normal [facility] Comment on above: Performed By: #### P T, PTT, BNP, CBC #### [address] Glucose [Mass/Vol] 108 mg/dL High 70-100 [facility] Comment on above: Result Comment: [facility] Glucose Reference Range is dependent on time and content of last meal. Glucose of more than 200 mg/dL in a nonstressed, ambulatory subject supports the diagnosis of Diabetes Mellitus. ADA recommended reference range Performed By: #### P T, PTT, BNP, CBC #### [address] Potassium [Moles/Vol] 4.4 mmol/L Normal 3.5-5.1 [facility] Comment on above: Performed By: #### P T, PTT, BNP, CBC #### [address] Sodium [Moles/Vol] 131 mmol/L Low 136-145 [facility] Comment on above: Performed By: #### P T, PTT, BNP, CBC #### [address] Urea nitrogen [Mass/Vol] 61 mg/dL High 7-25 [facility] Comment on above: Performed By: #### P T, PTT, BNP, CBC #### [place] [address] [place] Basophils Auto (Bld) [#/Vol] Ordered By: Turner Knott on 11-20-2024 Basophils (Bld) [#/Vol] Automated basophil count 0.0-0.2 [facility] Basophils/100 WBC Auto (Bld) Ordered By: Turner Knott on 11-20-2024 Basophils/100 WBC (Bld) Automated basophil % . [facility] Bilirubin.direct [Mass/volum e] in Serum or PlasmaOrdered By: Turner Knott on 11-20-2024 Bilirubin.direct [Mass/Vol] Bilirubin.direct [Mass/volume] in Serum or Plasma High 0.03-0.18 [facility] Bilirubin.total [Mass/volume ] in Serum or PlasmaOrdered By: Turner Knott on 11-20-2024 Bilirubin [Mass/Vol] Bilirubin.total [Mass/volume] in Serum or Plasma High 0.3-1.0 [facility] Comment on above: Samples from patient s who have taken Naproxen have shown spurious elevation in Total Bilirubin levels. A metabolite of Naproxen, O-desmethylnaproxen, has been shown to interfere with the Lenny-Myke method for measuring Total Bilirubin. Calcium [Mass/volume] in Ser um or PlasmaOrdered By: Turner Knott on 11-20-2024 Calcium [Mass/Vol] Calcium [Mass/volume ] in Serum or Plasma 8.6-10.3 [facility] Carbon dioxide, total [Moles /volume] in Serum or PlasmaOrdered By: Turner Knott on 11-20-2024 CO2 [Moles/Vol] Carbon dioxide, tota l [Moles/volume] in Serum or Plasma 21.0-31.0 [facility] Chloride [Moles/volume] in S zoey or PlasmaOrdered By: Turner Knott on 11-20-2024 Chloride [Moles/Vol] Chloride [Moles/vol ume] in Serum or Plasma 98-107 [facility] Complete Blood Count Auto Di ffon 11-20-2024 Basophils (Bld) [#/Vol] 0.0 10*3/uL Normal 0.0-0.2 [facility] Comment on above: Result Comment: PERF ORMED BY: [place] [address] PATHOLOGIST [employer] CUSTODIAN GRANT SCHNEIDER M.D. Performed By: #### P T, PTT, BNP, CBC #### [address] Basophils/100 WBC (Bld) 0.7 % Normal . [facility] Comment on above: Performed By: #### P T, PTT, BNP, CBC #### [address] Eosinophils (Bld) [#/Vol] 0.0 10*3/uL Normal 0.0-0.45 [facility] Comment on above: Performed By: #### P T, PTT, BNP, CBC #### [address] Eosinophils/100 WBC (Bld) 0.3 % Normal . [facility] Comment on above: Performed By: #### P T, PTT, BNP, CBC #### [address] Erythrocyte distribution width (RBC) [Ratio] 18.5 % High 12.0-14.8 [facility] Comment on above: Performed By: #### P T, PTT, BNP, CBC #### [address] Hematocrit (Bld) [Volume fraction] 31.4 % Low 38.8-50.0 [facility] Comment on above: Performed By: #### P T, PTT, BNP, CBC #### [address] Hemoglobin (Bld) [Mass/Vol] 10.0 g/dL Low 13.0-17.0 [facility] Comment on above: Performed By: #### P T, PTT, BNP, CBC #### [address] Lymphocytes (Bld) [#/Vol] 0.9 10*3/uL Low 1.00-4.8 [facility] Comment on above: Performed By: #### P T, PTT, BNP, CBC #### [address] Lymphocytes/100 WBC (Bld) 14.2 % Normal . [facility] Comment on above: Performed By: #### P T, PTT, BNP, CBC #### [place] [address] MCH (RBC) [Entitic mass] 23.0 pg Low 27.5-35.2 [facility] Comment on above: Performed By: #### P T, PTT, BNP, CBC #### [address] MCV (RBC) [Entitic vol] 72.1 fL Low 83.5-101 [facility] Comment on above: Performed By: #### P T, PTT, BNP, CBC #### [address] Mean Corpuscular HGB Conc 31.9 g/dL Low 32.5-35.6 [facility] Comment on above: Performed By: #### P T, PTT, BNP, CBC #### [address] Monocytes (Bld) [#/Vol] 0.8 10*3/uL Normal 0.0-0.8 [facility] Comment on above: Performed By: #### P T, PTT, BNP, CBC #### [address] Monocytes/100 WBC (Bld) 12.7 % Normal . [facility] Comment on above: Performed By: #### P T, PTT, BNP, CBC #### [address] Neutrophils (Bld) [#/Vol] 4.8 10*3/uL Normal 1.8-7.7 [facility] Comment on above: Performed By: #### P T, PTT, BNP, CBC #### [address] Neutrophils/100 WBC (Bld) 72.1 % Normal . [facility] Comment on above: Performed By: #### P T, PTT, BNP, CBC #### [address] NRBC% 0.3 /100{WBC} Normal 0-0.5 [facility] Comment on above: Performed By: #### P T, PTT, BNP, CBC #### [facility] [address] Platelet mean volume (Bld) [Entitic vol] 7.0 fL Normal 6.6-10.1 [facility] Comment on above: Performed By: #### P T, PTT, BNP, CBC #### [facility] [address] Platelets (Bld) [#/Vol] 217 10*3/uL Normal 150-450 [facility] Comment on above: Performed By: #### P T, PTT, BNP, CBC #### [facility] [address] RBC (Bld) [#/Vol] 4.36 10*6/uL Normal 3.90-5.60 [facility] Comment on above: Performed By: #### P T, PTT, BNP, CBC #### [facility] [address] WBC (Bld) [#/Vol] 6.6 10*3/uL Normal 4.1-10.5 [facility] Comment on above: Performed By: #### P T, PTT, BNP, CBC #### [address] Creatinine [Mass/volume] in Serum or PlasmaOrdered By: Turner Knott on 11-20-2024 Creatinine [Mass/Vol] Creatinine [Mass/v olume] in Serum or Plasma High 0.70-1.30 [facility] Eosinophils Auto (Bld) [#/Vo l]Ordered By: Turner Knott on 11-20-2024 Eosinophils (Bld) [#/Vol] Automated eosinophil count 0.0-0.45 [facility] Eosinophils/100 WBC Auto (Bl d)Ordered By: Turner Knott on 11-20-2024 Eosinophils/100 WBC (Bld) Automated eosinophil % . [facility] Erythrocyte distribution wid th Auto (RBC) [Ratio]Ordered By: Turner Knott on 11-20-2024 Erythrocyte distribution width (RBC) [Ratio] Erythrocyte distribution width [Ratio] by Automated count High 12.0-14.8 [facility] FPG ECG *CARDIOLOGY ONLY*on 11-20-2024 FPG ECG *CARDIOLOGY ONLY* [facility] Main [place] [address] [place] [id number] Electrocardiograph Report Signed Patient: Char Alatorre MR#: [id number] 4 : 1950 Acct:[id number] Age/Sex: 73 / M ADM Date: 11/20/24 [facility]: Type[facility] Attending Dr: Odalys Spaulding MD Ordering Provider: Odalys Spaulding MD Date of Service: 11/20/2403/09/948 ECG/FPG ECG *CARDIOLOGY ONLY*: I50.20 - Unspecified systolic (congestive) heart failure Copies to: Test Reason : Blood Pressure : */* mmHG Vent. Rate : 86 BPM Atrial Rate : 86 BPM P-R Int : 216 ms QRS Dur : 102 ms QT Int : 380 ms P-R-T Axes : 68 119 -17 degrees QTcB Int : 454 ms Sinus rhythm with 1st degree AV block Right axis deviation Septal infarct , age undetermined Abnormal ECG Confirmed by Odalys Spaulding ([id number]) on 11/21/2024 6:14:41 PM Referred By: Electronically Signed By: Odalys Spaulding Transcribed By: MUS Signed By Odalys Spaulding MD 5 1814 Normal [facility] Globulin Calc (S) [Mass/Vol] Ordered By: Turner Knott on 11-20-2024 Globulin (S) [Mass/Vol] Serum globulin measurement by calculation (mass/volume) [facility] Glucose [Mass/volume] in Ser um or PlasmaOrdered By: Turner Knott on 11-20-2024 Glucose [Mass/Vol] Glucose [Mass/volume ] in Serum or Plasma High 70-100 [facility] Comment on above: ADA recommended refe rence rangeRandom Glucose Reference Range is dependent on time and content of last meal. Glucose of more than 200 mg/dL in a nonstressed, ambulatory subject supports the diagnosis of Diabetes Mellitus. Hematocrit Auto (Bld) [Volum e fraction]Ordered By: Turner Knott on 11-20-2024 Hematocrit (Bld) [Volume fraction] Hematocrit [Volume Fraction] of Blood by Automated count Low 38.8-50.0 [facility] Hemoglobin [Mass/volume] in BloodOrdered By: Turner Knott on 11-20-2024 Hemoglobin (Bld) [Mass/Vol] Hemoglobin [Mass/volume] in Blood Low 13.0-17.0 [facility] Hepatic Panelon 11-20-2024 Albumin [Mass/Vol] 3.0 g/dL Low 3.5-5.7 [facility] Comment on above: Performed By: #### P T, PTT, BNP, CBC #### [facility] [address] Albumin/Globulin [Mass ratio] 0.9 {ratio} Normal [facility] Comment on above: Performed By: #### P T, PTT, BNP, CBC #### [facility] [address] ALP [Catalytic activity/Vol] 159 U/L High 34-104 [facility] Comment on above: Performed By: #### P T, PTT, BNP, CBC #### [facility] [address] ALT [Catalytic activity/Vol] 76 U/L High 7-52 [facility] Comment on above: Performed By: #### P T, PTT, BNP, CBC #### [facility] [address] [place] [address] [place] AST [Catalytic activity/Vol] 42 U/L High 13-39 [facility] Comment on above: Performed By: #### P T, PTT, BNP, CBC #### [facility] [address] [place] [address] [place] Bilirubin [Mass/Vol] 1.5 mg/dL High 0.3-1.0 [facility] Comment on above: Result Comment: Samp les from patients who have taken Naproxen have shown spurious elevation in Total Bilirubin levels. A metabolite of Naproxen, O-desmethylnaproxen, has been shown to interfere with the Lenny-Myke method for measuring Total Bilirubin. Performed By: #### P T, PTT, BNP, CBC #### [facility] [address] Bilirubin,Indirect 0.8 mg/dL Normal [facility] Comment on above: Performed By: #### P T, PTT, BNP, CBC #### [facility] [address] Bilirubin.indirect [Mass/Vol] 0.70 mg/dL High 0.03-0.18 [facility] Comment on above: Performed By: #### P T, PTT, BNP, CBC #### [facility] [address] Globulin (S) [Mass/Vol] 3.3 g/dL Normal [facility] Comment on above: Performed By: #### P T, PTT, BNP, CBC #### [facility] [address] Protein [Mass/Vol] 6.3 g/dL Low 6.4-8.9 [facility] Comment on above: Performed By: #### P T, PTT, BNP, CBC #### [facility] [address] INR in Platelet poor plasma by Coagulation assayOrdered By: Turner Knott on 11-20-2024 INR Coag (PPP) [Relative time] INR in Platelet poor plasma by Coagulation assay [facility] Comment on above: INR Therapeutic Rang [...] erythrocytes in Blood by Automated coun 4.1-10.5 [facility] Lymphocytes Auto (Bld) [#/Vo l]Ordered By: Turner Knott on 11-20-2024 Lymphocytes (Bld) [#/Vol] Lymphocytes [#/volume] in Blood by Automated count Low 1.00-4.8 [facility] Lymphocytes/100 WBC Auto (Bl d)Ordered By: Turner Knott on 11-20-2024 Lymphocytes/100 WBC (Bld) Lymphocytes/100 leukocytes in Blood by Automated count . [facility] MCH Auto (RBC) [Entitic mass ]Ordered By: Turner Knott on 11-20-2024 MCH (RBC) [Entitic mass] MCH [Entitic mass] by Automated count Low 27.5-35.2 [facility] MCHC Auto (RBC) [Mass/Vol]Or dered By: Turner Knott on 11-20-2024 MCHC (RBC) [Mass/Vol] MCHC [Mass/volume] by Automated count Low 32.5-35.6 [facility] MCV Auto (RBC) [Entitic vol] Ordered By: Turner Knott on 11-20-2024 MCV (RBC) [Entitic vol] MCV [Entitic volume] by Automated count Low 83.5-101 [facility] Magnesiumon 11-20-2024 Magnesium [Mass/Vol] 2.4 mg/dL Normal 1.9-2.7 [facility] Comment on above: Result Comment: PERF ORMED BY: [place] [address] PATHOLOGIST [employer] RO[employer] CUSTODIAN GRANT SCHNEIDER M.D. Performed By: #### P T, PTT, BNP, CBC #### [address] Magnesium [Mass/volume] in S zoey or PlasmaOrdered By: Turner Knott on 11-20-2024 Magnesium [Mass/Vol] Magnesium [Mass/vol ume] in Serum or Plasma 1.9-2.7 [facility] Monocytes Auto (Bld) [#/Vol] Ordered By: Turner Knott on 11-20-2024 Monocytes (Bld) [#/Vol] Automated blood monocyte count 0.0-0.8 [facility] Monocytes/100 WBC Auto (Bld) Ordered By: Turner Knott on 11-20-2024 Monocytes/100 WBC (Bld) Automated monocyte % . [facility] Natriuretic peptide B [Mass/ Vol]Ordered By: Turner Knott on 11-20-2024 Natriuretic peptide B (Bld) [Mass/Vol] BNP ser/plas High 5-100 [facility] Neutrophils Auto (Bld) [#/Vo l]Ordered By: Turner Knott on 11-20-2024 Neutrophils (Bld) [#/Vol] Neutrophils [#/volume] in Blood by Automated count 1.8-7.7 [facility] Neutrophils/100 WBC Auto (Bl d)Ordered By: Turner Knott on 11-20-2024 Neutrophils/100 WBC (Bld) Automated neutrophil % . [facility] No Panel InformationOrdered By: Turner Knott on 11-20-2024 Estimated GFR (CKD-EPI) 21.060 mL/Min [facility] Pharmacy Creatinine Clearance (Chem N/A [facility] Nucleated erythrocytes [Pres ence] in Blood by Automated countOrdered By: Turner Knott on 11-20-2024 Nucleated RBC Auto Ql (Bld) Nucleated erythrocytes [Presence] in Blood by Automated count 0-0.5 [facility] Partial Thromboplastin Timeo n 11-20-2024 aPTT Coag (Bld) [Time] 41.0 s High 25.1-36.5 [facility] Comment on above: Result Comment: A he matocrit value greater than 55% may lead to inaccurate results in coagulation testing. Patients having hematocrit values >55% require a special collection tube for coagulation studies. Please contact the laboratory at [phone] for redraw instructions. PERFORMED BY: [facility] [address] [place] [address] PATHOLOGIST [employer] CUSTODIAN GRANT SCHNEIDER M.D. Performed By: #### P T, PTT, BNP, CBC #### [facility] [address] Platelet mean volume Auto (B ld) [Entitic vol]Ordered By: Turner Knott on 11-20-2024 Platelet mean volume (Bld) [Entitic vol] Platelet mean volume [Entitic volume] in Blood by Automated count 6.6-10.1 [facility] Platelets Auto (Bld) [#/Vol] Ordered By: Turner Knott on 11-20-2024 Platelets (Bld) [#/Vol] Platelets [#/volume] in Blood by Automated count 150-450 [facility] Potassium [Moles/volume] in Serum or PlasmaOrdered By: Turner Knott on 11-20-2024 Potassium [Moles/Vol] Potassium [Moles/v olume] in Serum or Plasma 3.5-5.1 [facility] Protein [Mass/volume] in Ser um or PlasmaOrdered By: Turner Knott on 11-20-2024 Protein [Mass/Vol] Protein [Mass/volume ] in Serum or Plasma Low 6.4-8.9 [facility] Prothrombin Time INRon 11-20 INR Coag (PPP) [Relative time] 2.8 {INR} Normal [facility] Comment on above: Result Comment: INR Therapeutic Range A) Pre- and Peroperative OAT started two weeks before surgery. NOT HIP SURGERY: 1.5 - 2.5 HIP SURGERY: 2 - 3 B) Primary and secondary prevention of venous THROMBOSIS: 2 - 3 C) Active venous thrombosis, pulmonary embolism and prevention of recurrent venous thrombosis: 2 - 3 D) Prevention of arterial thromboembolism including patients with mechanical heart valves: 3 - 4.5 Performed By: #### P T, PTT, BNP, CBC #### [facility] [address] [place] [id number] [facility] PT Coag (PPP) [Time] 30.9 s High 9.0-12.9 [facility] Comment on above: Result Comment: A he matocrit value greater than 55% may lead to inaccurate results in coagulation testing. Patients having hematocrit values >55% require a special collection tube for coagulation studies. Please contact the laboratory at [phone] for redraw instructions. Performed By: #### P T, PTT, BNP, CBC #### [facility] [address] [place] [id number] [facility] Prothrombin time (PT)Ordered By: Turner Knott on 11-20-2024 PT Coag (PPP) [Time] Prothrombin time (PT) High 9.0- 12.9 [facility] Comment on above: A hematocrit value g reater than 55% may lead to inaccurate results in coagulation testing. Patients having hematocrit values >55% require a special collection tube for coagulation studies. Please contact the laboratory at [phone] for redraw instructions. RBC Auto (Bld) [#/Vol]Ordere d By: Turner Knott on 11-20-2024 RBC (Bld) [#/Vol] Erythrocytes [#/volu me] in Blood by Automated count 3.90-5.60 [facility] Serum or plasma albumin/glob ulin mass ratioOrdered By: Turner Knott on 11-20-2024 Albumin/Globulin [Mass ratio] Serum or plasma albumin/globulin mass ratio [facility] Serum or plasma anion gap de terminationOrdered By: Turner Knott on 11-20-2024 Anion gap [Moles/Vol] Serum or plasma an ion gap determination 6.0-15.0 [facility] Serum or plasma non-glucuron idated bilirubin measurement (mass/volume)Ordered By: Turner Knott on 11-20-2024 Bilirubin.indirect [Mass/Vol] Serum or plasma non-glucuronidated bilirubin measurement (mass/volume) [facility] Sodium [Moles/volume] in Ser um or PlasmaOrdered By: Turner Knott on 11-20-2024 Sodium [Moles/Vol] Sodium [Moles/volume ] in Serum or Plasma Low 136-145 [facility] Urea nitrogen [Mass/volume] in Serum or PlasmaOrdered By: Turner Knott on 11-20-2024 Urea nitrogen [Mass/Vol] Urea nitrogen [Mass/volume] in Serum or Plasma High 7-25 [facility] WBC Auto (Bld) [#/Vol]Ordere d By: Turner Knott on 11-20-2024 WBC (Bld) [#/Vol] Leukocytes [#/volume ] in Blood by Automated count 4.1-10.5 [facility] aPTT in Platelet poor plasma by Coagulation assayOrdered By: Turner Knott on 11-20-2024 aPTT Coag (PPP) [Time] Activated partial thromboplastin time (aPTT) in platelet poor plasma by coagulation a High 25.1-36.5 [facility] Comment on above: A hematocrit value g reater than 55% may lead to inaccurate results in coagulation testing. Patients having hematocrit values >55% require a special collection tube for coagulation studies. Please contact the laboratory at [phone] for redraw instructions. ITPon 11-12-2024 [place] [address] Cardiac Rehab Report Signed Patient: CHAR ALATORRE MR#: [id number] : 1950 Acct:[id number] Age/Sex: 73 / M ADM Date: 10/23/24 Loc: CR Attending Dr: Non-Staff Physician Kamini Ordering Physician: Pepe Hernandez D.O. 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 Signed By: 11/12/24200811/12/242008 DD/ 0859 TD/TT: [employer] Education Teacher: [facility] Radiology, Radiologi MD alfred - 11/12/2024 [place] [address] Cardiac Rehab Report Signed Patient: CHAR ALATORRE MR#: [id number] : 1950 Acct:[id number] Age/Sex: 73 / M ADM Date: 10/23/24 Loc: CR Attending Dr: Non-Staff Physician Kamini Ordering Physician: Pepe Hernandez D.O. 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 Signed By: 11/12/24200811/12/242008 DD/ 8 TD/TT: [employer] Education Teacher: [facility] Radiology Study observation (narrative) [facility] ITPOrdered By: Radiologist R adiology on 11-12-2024 [facility] Work Phone: A1C with Estimated Average G luon 10-20-2024 Glucose [Mass/Vol] 88 mg/dL Normal [facility] Comment on above: Result Comment: PERF ORMED BY: [place] [address] PATHOLOGIST [employer] RO[employer] CUSTODIAN GRANT SCHNEIDER M.D. Performed By: #### P T, PTT, BNP, CBC #### [address] HbA1c (Bld) [Mass fraction] 4.7 % Normal 4.3-5.6 [facility] Comment on above: Result Comment: Incr eased risk for diabetes: 5.7 - 6.4 diabetes: >6.4 glycemic control for adults with diabetes: <7.0 Performed By: #### P T, PTT, BNP, CBC #### [address] Basic Metabolic Panelon 0 Anion gap [Moles/Vol] 9.2 mmol/L Normal 6.0-15.0 [facility] Comment on above: Performed By: #### P T, PTT, BNP, CBC #### [address] Calcium [Mass/Vol] 9.5 mg/dL Normal 8.6-10.3 [facility] Comment on above: Performed By: #### P T, PTT, BNP, CBC #### [address] Chloride [Moles/Vol] 101 mmol/L Normal 98-107 [facility] Comment on above: Performed By: #### P T, PTT, BNP, CBC #### [address] CO2 [Moles/Vol] 31.1 mmol/L High 21.0-31.0 [facility] Comment on above: Performed By: #### P T, PTT, BNP, CBC #### [address] Creatinine [Mass/Vol] 2.13 mg/dL High 0.70-1.30 [facility] Comment on above: Performed By: #### P T, PTT, BNP, CBC #### [address] Creatinine Clr Calc Pharmacy 34.36 Normal [facility] Comment on above: Performed By: #### P T, PTT, BNP, CBC #### [address] Estimated GFR 32.274 mL/Min Normal [facility] Comment on above: Performed By: #### P T, PTT, BNP, CBC #### [address] Glucose [Mass/Vol] 96 mg/dL Normal 70-100 [facility] Comment on above: Result Comment: [place] Glucose Reference Range is dependent on time and content of last meal. Glucose of more than 200 mg/dL in a nonstressed, ambulatory subject supports the diagnosis of Diabetes Mellitus. ADA recommended reference range Performed By: #### P T, PTT, BNP, CBC #### [facility] [address] Potassium [Moles/Vol] 3.3 mmol/L Low 3.5-5.1 [facility] Comment on above: Performed By: #### P T, PTT, BNP, CBC #### [facility] [address] Sodium [Moles/Vol] 138 mmol/L Normal 136-145 [facility] Comment on above: Performed By: #### P T, PTT, BNP, CBC #### [facility] [address] Urea nitrogen [Mass/Vol] 24 mg/dL Normal 7-25 [facility] Comment on above: Performed By: #### P T, PTT, BNP, CBC #### [facility] [address] Basophils Auto (Bld) [#/Vol] Ordered By: Geoff Swann on 10-20-2024 Basophils (Bld) [#/Vol] Automated basophil count 0.0-0.2 [facility] Basophils/100 WBC Auto (Bld) Ordered By: Geoff Swann on 10-20-2024 Basophils/100 WBC (Bld) Automated basophil % . [facility] Blood estimated average gluc ose determination by estimation from glycated hemoglobinOrdered By: Geoff Swann on 10-20-2024 Average glucose Estimated from glycated hemoglobin (Bld) [Mass/Vol] Glucose mean value [Mass/volume] in Blood Estimated from glycated hemoglobin [facility] Calcium [Mass/volume] in Ser um or PlasmaOrdered By: Geoff Swann on 10-20-2024 Calcium [Mass/Vol] Calcium [Mass/volume ] in Serum or Plasma 8.6-10.3 [facility] Carbon dioxide, total [Moles /volume] in Serum or PlasmaOrdered By: Geoff Swann on 10-20-2024 CO2 [Moles/Vol] Carbon dioxide, tota l [Moles/volume] in Serum or Plasma High 21.0-31.0 [facility] Chloride [Moles/volume] in S zoey or PlasmaOrdered By: Geoff Swann on 10-20-2024 Chloride [Moles/Vol] Chloride [Moles/vol ume] in Serum or Plasma 98-107 [facility] Cholesterol [Mass/volume] in Serum or PlasmaOrdered By: Geoff Swann on 10-20-2024 Cholesterol [Mass/Vol] Cholesterol [Mass /volume] in Serum or Plasma Low 140-200 [facility] Comment on above: Chol less than 200 m g/dl low riskChol 201-239 mg/dl borderline riskChol 240 mg/dl and greater high risk Cholesterol in HDL [Mass/vol ume] in Serum or PlasmaOrdered By: Geoff Swann on 10-20-2024 Cholesterol in HDL [Mass/Vol] Serum or plasma high density lipoprotein (HDL) cholesterol measurement 23-92 [facility] Comment on above: HDL CHOL ATP-III CLA SSIFICATION Cardiovascular RiskHDL > or equal to 60 mg/dL LOWHDL < 40 mg/dL HIGH Cholesterol in LDL Calc [Mas s/Vol]Ordered By: Geoff Swann on 10-20-2024 Cholesterol in LDL [Mass/Vol] Cholesterol in LDL [Mass/volume] in Serum or Plasma by calculation 0-100 [facility] Comment on above: LDL ATP III CLASSIFI CATIONLDL less than 100 mg/dL OptimalLDL 100-129 mg/dL Near or above optimalLDL 130-159 mg/dL Borderline highLDL 160-189 mg/dL HighLDL greater than 189 mg/dL Very high Cholesterol in VLDL Calc [Ma ss/Vol]Ordered By: Geoff Swann on 10-20-2024 Cholesterol in VLDL [Mass/Vol] Cholesterol in VLDL [Mass/volume] in Serum or Plasma by calculation [facility] Complete Blood Count Auto Di ffon 10-20-2024 Basophils (Bld) [#/Vol] 0.1 10*3/uL Normal 0.0-0.2 [facility] Comment on above: Result Comment: PERF ORMED BY: [facility] [address] [place] [address] PATHOLOGIST [employer] RO[employer] CUSTODIAN GRANT SCHNEIDER M.D. Performed By: #### A DDONUAPLUS #### [facility] [address] [place] [address] [place] Basophils/100 WBC (Bld) 1.0 % Normal . [facility] Comment on above: Performed By: #### A DDONUAPLUS #### [facility] [address] [place] [address] [place] Eosinophils (Bld) [#/Vol] 0.1 10*3/uL Normal 0.0-0.45 [facility] Comment on above: Performed By: #### A DDONUAPLUS #### [facility] [address] [place] [address] [place] Eosinophils/100 WBC (Bld) 1.3 % Normal . [facility] Comment on above: Performed By: #### A DDONUAPLUS #### [address] Erythrocyte distribution width (RBC) [Ratio] 17.5 % High 12.0-14.8 [facility] Comment on above: Performed By: #### A DDONUAPLUS #### [address] Hematocrit (Bld) [Volume fraction] 27.9 % Low 38.8-50.0 [facility] Comment on above: Performed By: #### A DDONUAPLUS #### [place] [address] [place] Hemoglobin (Bld) [Mass/Vol] 9.0 g/dL Low 13.0-17.0 [facility] Comment on above: Performed By: #### A DDONUAPLUS #### [facility] [address] [place] [address] [place] Lymphocytes (Bld) [#/Vol] 1.0 10*3/uL Normal 1.00-4.8 [facility] Comment on above: Performed By: #### A DDONUAPLUS #### [facility] [address] [place] [address] [place] Lymphocytes/100 WBC (Bld) 20.1 % Normal . [facility] Comment on above: Performed By: #### A DDONUAPLUS #### [address] MCH (RBC) [Entitic mass] 24.2 pg Low 27.5-35.2 [facility] Comment on above: Performed By: #### A DDONUAPLUS #### [address] MCV (RBC) [Entitic vol] 75.2 fL Low 83.5-101 [facility] Comment on above: Performed By: #### A DDONUAPLUS #### [address] Mean Corpuscular HGB Conc 32.2 g/dL Low 32.5-35.6 [facility] Comment on above: Performed By: #### A DDONUAPLUS #### [address] Monocytes (Bld) [#/Vol] 0.5 10*3/uL Normal 0.0-0.8 [facility] Comment on above: Performed By: #### A DDONUAPLUS #### [address] Monocytes/100 WBC (Bld) 10.1 % Normal . [facility] Comment on above: Performed By: #### A DDONUAPLUS #### [address] Neutrophils (Bld) [#/Vol] 3.4 10*3/uL Normal 1.8-7.7 [facility] Comment on above: Performed By: #### A DDONUAPLUS #### [address] Neutrophils/100 WBC (Bld) 67.5 % Normal . [facility] Comment on above: Performed By: #### A DDONUAPLUS #### [address] NRBC% 0.0 /100{WBC} Normal 0-0.5 [facility] Comment on above: Performed By: #### A DDONUAPLUS #### [facility] [address] Platelet mean volume (Bld) [Entitic vol] 6.9 fL Normal 6.6-10.1 [facility] Comment on above: Performed By: #### A DDONUAPLUS #### [facility] [address] Platelets (Bld) [#/Vol] 235 10*3/uL Normal 150-450 [facility] Comment on above: Performed By: #### A DDONUAPLUS #### [facility] [address] RBC (Bld) [#/Vol] 3.71 10*6/uL Low 3.90-5.60 [facility] Comment on above: Performed By: #### A DDONUAPLUS #### [address] WBC (Bld) [#/Vol] 5.0 10*3/uL Normal 4.1-10.5 [facility] Comment on above: Performed By: #### A DDONUAPLUS #### [address] Creatinine [Mass/volume] in Serum or PlasmaOrdered By: Geoff Swann on 10-20-2024 Creatinine [Mass/Vol] Creatinine [Mass/v olume] in Serum or Plasma High 0.70-1.30 [facility] Eosinophils Auto (Bld) [#/Vo l]Ordered By: Geoff Swann on 10-20-2024 Eosinophils (Bld) [#/Vol] Automated eosinophil count 0.0-0.45 [facility] Eosinophils/100 WBC Auto (Bl d)Ordered By: Geoff Swann on 10-20-2024 Eosinophils/100 WBC (Bld) Automated eosinophil % . [facility] Erythrocyte distribution wid th Auto (RBC) [Ratio]Ordered By: Geoff Swann on 10-20-2024 Erythrocyte distribution width (RBC) [Ratio] Erythrocyte distribution width [Ratio] by Automated count High 12.0-14.8 [facility] Glucose [Mass/volume] in Ser um or PlasmaOrdered By: Geoff Swann on 10-20-2024 Glucose [Mass/Vol] Glucose [Mass/volume ] in Serum or Plasma 70-100 [facility] Comment on above: ADA recommended refe rence rangeRandom Glucose Reference Range is dependent on time and content of last meal. Glucose of more than 200 mg/dL in a nonstressed, ambulatory subject supports the diagnosis of Diabetes Mellitus. Hematocrit Auto (Bld) [Volum e fraction]Ordered By: Geoff Swann on 10-20-2024 Hematocrit (Bld) [Volume fraction] Hematocrit [Volume Fraction] of Blood by Automated count Low 38.8-50.0 [facility] Hemoglobin A1c/Hemoglobin.to shin in BloodOrdered By: Geoff Swann on 10-20-2024 HbA1c (Bld) [Mass fraction] Hemoglobin A1c percentage 4.3-5.6 [facility] Comment on above: Increased risk for d iabetes: 5.7 - 6.4diabetes: >6.4glycemic control for adults with diabetes: <7.0 Hemoglobin [Mass/volume] in BloodOrdered By: Geoff Swann on 10-20-2024 Hemoglobin (Bld) [Mass/Vol] Hemoglobin [Mass/volume] in Blood Low 13.0-17.0 [facility] Leukocytes [#/volume] correc anna for nucleated erythrocytes in Blood by Automated counOrdered By: Geoff Swann on 10-20-2024 WBC corrected for nucl RBC Auto (Bld) [#/Vol] Leukocytes [#/volume] corrected for nucleated erythrocytes in Blood by Automated coun 4.1-10.5 [facility] Lipid Panelon 10-20-2024 Cholesterol [Mass/Vol] 79 mg/dL Low 140-200 [facility] Comment on above: Result Comment: Chol less than 200 mg/dl low risk Chol 201-239 mg/dl borderline risk Chol 240 mg/dl and greater high risk Performed By: #### P T, PTT, BNP, CBC #### [address] Cholesterol in HDL [Mass/Vol] 26 mg/dL Normal 23-92 [facility] Comment on above: Result Comment: HDL CHOL ATP-III CLASSIFICATION Cardiovascular Risk HDL > or equal to 60 mg/dL LOW HDL < 40 mg/dL HIGH Performed By: #### P T, PTT, BNP, CBC #### [address] Cholesterol.total/Chol esterol in HDL [Mass ratio] 3.0 {ratio} Normal <5.0 [facility] Comment on above: Result Comment: PERF ORMED BY: [place] [address] PATHOLOGIST [employer] RO[employer] CUSTODIAN GRANT SCHNEIDER M.D. Performed By: #### P T, PTT, BNP, CBC #### [address] LDL Cholesterol,Calculated 35 mg/dL Normal 0-100 [facility] Comment on above: Result Comment: LDL ATP III CLASSIFICATION LDL less than 100 mg/dL Optimal LDL 100-129 mg/dL Near or above optimal LDL 130-159 mg/dL Borderline high LDL 160-189 mg/dL High LDL greater than 189 mg/dL Very high Performed By: #### P T, PTT, BNP, CBC #### [address] Triglyceride w/Reflex 90 mg/dL Normal 0-149 [facility] Comment on above: Result Comment: TRIG ATP III CLASSIFICATION TRIG less than 150 mg/dL Normal TRIG 150-199 mg/dL Borderline high TRIG 200-500 mg/dL High TRIG greater than 500 mg/dL Very high Standard traceable to the Center for Disease Conrtrol and Prevention (CDC) test method. Performed By: #### P T, PTT, BNP, CBC #### [address] VLDL CHOLESTEROL 18 mg/dL Normal [facility] Comment on above: Performed By: #### P T, PTT, BNP, CBC #### [address] Lymphocytes Auto (Bld) [#/Vo l]Ordered By: Geoff Swann on 01-05-2025 Lymphocytes (Bld) [#/Vol] Lymphocytes [#/volume] in Blood by Automated count 1.00-4.8 [facility] Lymphocytes/100 WBC Auto (Bl d)Ordered By: Geoff Swann on 10-20-2024 Lymphocytes/100 WBC (Bld) Lymphocytes/100 leukocytes in Blood by Automated count . [facility] MCH Auto (RBC) [Entitic mass ]Ordered By: Geoff Swann on 10-20-2024 MCH (RBC) [Entitic mass] MCH [Entitic mass] by Automated count Low 27.5-35.2 [facility] MCHC Auto (RBC) [Mass/Vol]Or dered By: Geoff Swann on 10-20-2024 MCHC (RBC) [Mass/Vol] MCHC [Mass/volume] by Automated count Low 32.5-35.6 [facility] MCV Auto (RBC) [Entitic vol] Ordered By: Geoff Swann on 10-20-2024 MCV (RBC) [Entitic vol] MCV [Entitic volume] by Automated count Low 83.5-101 [facility] Magnesiumon 10-20-2024 Magnesium [Mass/Vol] 2.0 mg/dL Normal 1.9-2.7 [facility] Comment on above: Performed By: #### P T, PTT, BNP, CBC #### [address] Magnesium [Mass/volume] in S zoey or PlasmaOrdered By: Geoff Swann on 10-20-2024 Magnesium [Mass/Vol] Magnesium [Mass/vol ume] in Serum or Plasma 1.9-2.7 [facility] Monocytes Auto (Bld) [#/Vol] Ordered By: Geoff Swann on 10-20-2024 Monocytes (Bld) [#/Vol] Automated blood monocyte count 0.0-0.8 [facility] Monocytes/100 WBC Auto (Bld) Ordered By: Geoff Swann on 10-20-2024 Monocytes/100 WBC (Bld) Automated monocyte % . [facility] Neutrophils Auto (Bld) [#/Vo l]Ordered By: Geoff Swann on 10-20-2024 Neutrophils (Bld) [#/Vol] Neutrophils [#/volume] in Blood by Automated count 1.8-7.7 [facility] Neutrophils/100 WBC Auto (Bl d)Ordered By: Geoff Swann on 10-20-2024 Neutrophils/100 WBC (Bld) Automated neutrophil % . [facility] No Panel InformationOrdered By: Geoff Swann on 10-20-2024 Estimated GFR (CKD-EPI) 32.274 mL/Min [facility] Pharmacy Creatinine Clearance (Chem 34.36 [facility] Nucleated erythrocytes [Pres ence] in Blood by Automated countOrdered By: Geoff Swann on 10-20-2024 Nucleated RBC Auto Ql (Bld) Nucleated erythrocytes [Presence] in Blood by Automated count 0-0.5 [facility] Platelet mean volume Auto (B ld) [Entitic vol]Ordered By: Geoff Swann on 10-20-2024 Platelet mean volume (Bld) [Entitic vol] Platelet mean volume [Entitic volume] in Blood by Automated count 6.6-10.1 [facility] Platelets Auto (Bld) [#/Vol] Ordered By: Geoff Swann on 10-20-2024 Platelets (Bld) [#/Vol] Platelets [#/volume] in Blood by Automated count 150-450 [facility] Potassium [Moles/volume] in Serum or PlasmaOrdered By: Geoff Swann on 10-20-2024 Potassium [Moles/Vol] Potassium [Moles/v olume] in Serum or Plasma Low 3.5-5.1 [facility] RBC Auto (Bld) [#/Vol]Ordere d By: Geoff Swann on 10-20-2024 RBC (Bld) [#/Vol] Erythrocytes [#/volu me] in Blood by Automated count Low 3.90-5.60 [facility] Serum or plasma anion gap de terminationOrdered By: Geoff Swann on 10-20-2024 Anion gap [Moles/Vol] Serum or plasma an ion gap determination 6.0-15.0 [facility] Serum or plasma total choles terol/high density lipoprotein (HDL) cholesterol mass ratOrdered By: Geoff Swann on 10-20-2024 Cholesterol.total/Chol esterol in HDL [Mass ratio] Serum or plasma total cholesterol/high density lipoprotein (HDL) cholesterol mass rat <5.0 [facility] Sodium [Moles/volume] in Ser um or PlasmaOrdered By: Geoff Swann on 10-20-2024 Sodium [Moles/Vol] Sodium [Moles/volume ] in Serum or Plasma 136-145 [facility] Triglyceride [Mass/volume] i n Serum or PlasmaOrdered By: Geoff Swann on 10-20-2024 Triglyceride [Mass/Vol] Triglyceride [Mass/volume] in Serum or Plasma 0-149 [facility] Comment on above: TRIG ATP III CLASSIF ICATIONTRIG less than 150 mg/dL NormalTRIG 150-199 mg/dL Borderline highTRIG 200-500 mg/dL High TRIG greater than 500 mg/dL Very highStandard traceable to the Center for Disease Conrtrol and Prevention (CDC) test method. Urea nitrogen [Mass/volume] in Serum or PlasmaOrdered By: Geoff Swann on 10-20-2024 Urea nitrogen [Mass/Vol] Urea nitrogen [Mass/volume] in Serum or Plasma 7-25 [facility] WBC Auto (Bld) [#/Vol]Ordere d By: Geoff Swann on 10-20-2024 WBC (Bld) [#/Vol] Leukocytes [#/volume ] in Blood by Automated count 4.1-10.5 [facility] Alanine aminotransferase [En zymatic activity/volume] in Serum or PlasmaOrdered By: Joel De La Paz on 10-19-2024 ALT [Catalytic activity/Vol] Alanine aminotransferase [Enzymatic activity/volume] in Serum or Plasma Low 7-52 [facility] Albumin [Mass/volume] in Ser um or Plasma by Bromocresol green (BCG) dye binding methoOrdered By: Joel De La Paz on 10-19-2024 Albumin BCG dye [Mass/Vol] Albumin [Mass/volume] in Serum or Plasma by Bromocresol green (BCG) dye binding metho Low 3.5-5.7 [facility] Alkaline phosphatase [Enzyma tic activity/volume] in Serum or PlasmaOrdered By: Joel De La Paz on 10-19-2024 ALP [Catalytic activity/Vol] Alkaline phosphatase [Enzymatic activity/volume] in Serum or Plasma High 34-104 [facility] Aspartate aminotransferase [ Enzymatic activity/volume] in Serum or PlasmaOrdered By: Joel De La Paz on 10-19-2024 AST [Catalytic activity/Vol] Aspartate aminotransferase [Enzymatic activity/volume] in Serum or Plasma Low 13-39 [facility] B-Type Natriuretic Peptideon 10-19-2024 Natriuretic peptide B (Bld) [Mass/Vol] 2785.0 pg/mL High 5-100 [facility] Comment on above: Result Comment: PERF ORMED BY: [facility] [address] [place] [address] PATHOLOGIST [employer] CUSTODIAN GRANT SCHNEIDER M.D. Performed By: #### N T-PROBNP #### [facility] , Basophils Auto (Bld) [#/Vol] Ordered By: Joel De La Paz on 10-19-2024 Basophils (Bld) [#/Vol] Automated basophil count 0.0-0.2 [facility] Basophils/100 WBC Auto (Bld) Ordered By: Joel De La Paz on 10-19-2024 Basophils/100 WBC (Bld) Automated basophil % . [facility] Bilirubin.total [Mass/volume ] in Serum or PlasmaOrdered By: Joel De La Paz on 10-19-2024 Bilirubin [Mass/Vol] Bilirubin.total [Mass/volume] in Serum or Plasma High 0.3-1.0 [facility] COVID Cepheid NegativeOrdere d By: Joel De La Paz on 10-19-2024 SARS-CoV-2 (COVID-19) Ab IA Ql COVID Cepheid Negative [facility] Comment on above: This is a [...] or Cepheid Disclaimer revoked sooner. PERFORMED BY: [place] [address] [place] [address] PATHOLOGIST [employer] CUSTODIAN GRANT SCHNEIDER M.D. Normal [facility] Comment on above: Performed By: #### N T-PROBNP #### [facility] , Calcium [Mass/volume] in Ser um or PlasmaOrdered By: Joel De La Paz on 10-19-2024 Calcium [Mass/Vol] Calcium [Mass/volume ] in Serum or Plasma 8.6-10.3 [facility] Carbon dioxide, total [Moles /volume] in Serum or PlasmaOrdered By: Joel De La Paz on 10-19-2024 CO2 [Moles/Vol] Carbon dioxide, tota l [Moles/volume] in Serum or Plasma 21.0-31.0 [facility] Cepheid COVID PCR Negativeon 10-19-2024 SARS-CoV-2 (COVID-19) RNA MICHELLE+probe Ql (Unsp spec) Negative Normal Negative [facility] Comment on above: Result Comment: This is a duplicate [employer] Xpert Xpress CoV-2/Flu/RSV Plus RNA by RT-PCR result to be used for statistical tracking purpose only. PERFORMED BY: [address] [place] [address] PATHOLOGIST [employer] CUSTODIAN GRANT SCHNEIDER M.D. Performed By: #### N T-PROBNP #### [facility] , Chloride [Moles/volume] in S zoey or PlasmaOrdered By: Joel De La Paz on 10-19-2024 Chloride [Moles/Vol] Chloride [Moles/vol ume] in Serum or Plasma 98-107 [facility] Complete Blood Count Auto Di ffon 10-19-2024 Basophils (Bld) [#/Vol] 0.1 10*3/uL Normal 0.0-0.2 [facility] Comment on above: Result Comment: PERF ORMED BY: [address] [place] [address] PATHOLOGIST [employer] CUSTODIAN GRANT SCHNEIDER M.D. Performed By: #### N T-PROBNP #### [facility] , Basophils/100 WBC (Bld) 1.4 % Normal . [facility] Comment on above: Performed By: #### N T-PROBNP #### [facility] , Eosinophils (Bld) [#/Vol] 0.0 10*3/uL Normal 0.0-0.45 [facility] Comment on above: Performed By: #### N T-PROBNP #### [facility] , Eosinophils/100 WBC (Bld) 0.8 % Normal . [facility] Comment on above: Performed By: #### N T-PROBNP #### [facility] , Erythrocyte distribution width (RBC) [Ratio] 17.6 % High 12.0-14.8 [facility] Comment on above: Performed By: #### N T-PROBNP #### [facility] , Hematocrit (Bld) [Volume fraction] 28.5 % Low 38.8-50.0 [facility] Comment on above: Performed By: #### N T-PROBNP #### [facility] , Hemoglobin (Bld) [Mass/Vol] 9.0 g/dL Low 13.0-17.0 [facility] Comment on above: Performed By: #### N T-PROBNP #### [facility] , Lymphocytes (Bld) [#/Vol] 1.0 10*3/uL Normal 1.00-4.8 [facility] Comment on above: Performed By: #### N T-PROBNP #### [facility] , Lymphocytes/100 WBC (Bld) 16.9 % Normal . [facility] Comment on above: Performed By: #### N T-PROBNP #### [facility] , MCH (RBC) [Entitic mass] 23.7 pg Low 27.5-35.2 [facility] Comment on above: Performed By: #### N T-PROBNP #### [facility] , MCV (RBC) [Entitic vol] 74.7 fL Low 83.5-101 [facility] Comment on above: Performed By: #### N T-PROBNP #### [facility] , Mean Corpuscular HGB Conc 31.7 g/dL Low 32.5-35.6 [facility] Comment on above: Performed By: #### N T-PROBNP #### [facility] , Monocytes (Bld) [#/Vol] 0.5 10*3/uL Normal 0.0-0.8 [facility] Comment on above: Performed By: #### N T-PROBNP #### [facility] , Monocytes/100 WBC (Bld) 20.86 % High 0.00-20.00 [facility] Comment on above: Result Comment: For adults in ED, MDW > 20.0 may be associated with a higher risk of sepsis during the first 12 hrs of hospital admission Performed By: #### N T-PROBNP #### [facility] , Monocytes/100 WBC (Bld) 8.5 % Normal . [facility] Comment on above: Performed By: #### N T-PROBNP #### [facility] , Neutrophils (Bld) [#/Vol] 4.3 10*3/uL Normal 1.8-7.7 [facility] Comment on above: Performed By: #### N T-PROBNP #### [facility] , Neutrophils/100 WBC (Bld) 72.4 % Normal . [facility] Comment on above: Performed By: #### N T-PROBNP #### [facility] , NRBC% 0.1 /100{WBC} Normal 0-0.5 [facility] Comment on above: Performed By: #### N T-PROBNP #### [facility] , Platelet mean volume (Bld) [Entitic vol] 6.8 fL Normal 6.6-10.1 [facility] Comment on above: Performed By: #### N T-PROBNP #### [facility] , Platelets (Bld) [#/Vol] 292 10*3/uL Normal 150-450 [facility] Comment on above: Performed By: #### N T-PROBNP #### [facility] , RBC (Bld) [#/Vol] 3.81 10*6/uL Low 3.90-5.60 [facility] Comment on above: Performed By: #### N T-PROBNP #### [facility] , WBC (Bld) [#/Vol] 5.9 10*3/uL Normal 4.1-10.5 [facility] Comment on above: Performed By: #### N T-PROBNP #### [facility] , Comprehensive Metabolic Pane thanh 10-19-2024 Albumin [Mass/Vol] 3.4 g/dL Low 3.5-5.7 [facility] Comment on above: Performed By: #### N T-PROBNP #### [facility] , Albumin/Globulin [Mass ratio] 1.0 {ratio} Normal [facility] Comment on above: Performed By: #### N T-PROBNP #### [facility] , ALP [Catalytic activity/Vol] 105 U/L High 34-104 [facility] Comment on above: Performed By: #### N T-PROBNP #### [facility] , ALT [Catalytic activity/Vol] 6 U/L Low 7-52 [facility] Comment on above: Performed By: #### N T-PROBNP #### [facility] , Anion gap [Moles/Vol] 8.9 mmol/L Normal 6.0-15.0 [facility] Comment on above: Performed By: #### N T-PROBNP #### [facility] , AST [Catalytic activity/Vol] 12 U/L Low 13-39 [facility] Comment on above: Performed By: #### N T-PROBNP #### [facility] , Bilirubin [Mass/Vol] 1.2 mg/dL High 0.3-1.0 [facility] Comment on above: Performed By: #### N T-PROBNP #### [facility] , Calcium [Mass/Vol] 9.5 mg/dL Normal 8.6-10.3 [facility] Comment on above: Performed By: #### N T-PROBNP #### [facility] , Chloride [Moles/Vol] 100 mmol/L Normal 98-107 [facility] Comment on above: Performed By: #### N T-PROBNP #### [facility] , CO2 [Moles/Vol] 28.8 mmol/L Normal 21.0-31.0 [facility] Comment on above: Performed By: #### N T-PROBNP #### [facility] , Creatinine [Mass/Vol] 2.19 mg/dL High 0.70-1.30 [facility] Comment on above: Performed By: #### N T-PROBNP #### [facility] , Creatinine Clr Calc Pharmacy 33.47 Normal [facility] Comment on above: Result Comment: PERF ORMED BY: [address] [place] [address] PATHOLOGIST [employer] CUSTODIAN GRANT SCHNEIDER M.D. Performed By: #### N T-PROBNP #### [facility] , Estimated GFR 31.216 mL/Min Normal [facility] Comment on above: Performed By: #### N T-PROBNP #### [facility] , Globulin (S) [Mass/Vol] 3.5 g/dL Normal [facility] Comment on above: Performed By: #### N T-PROBNP #### [facility] , Glucose [Mass/Vol] 109 mg/dL High 70-100 [facility] Comment on above: Result Comment: [place] om Glucose Reference Range is dependent on time and content of last meal. Glucose of more than 200 mg/dL in a nonstressed, ambulatory subject supports the diagnosis of Diabetes Mellitus. ADA recommended reference range Performed By: #### N T-PROBNP #### [facility] , Potassium [Moles/Vol] 3.7 mmol/L Normal 3.5-5.1 [facility] Comment on above: Performed By: #### N T-PROBNP #### [facility] , Protein [Mass/Vol] 6.9 g/dL Normal 6.4-8.9 [facility] Comment on above: Performed By: #### N T-PROBNP #### [facility] , Sodium [Moles/Vol] 134 mmol/L Low 136-145 [facility] Comment on above: Performed By: #### N T-PROBNP #### [facility] , Urea nitrogen [Mass/Vol] 23 mg/dL Normal 7-25 [facility] Comment on above: Performed By: #### N T-PROBNP #### [facility] , Creatine Kinaseon 10-19-2024 CK [Catalytic activity/Vol] 34 U/L Normal 30 [facility] Comment on above: Performed By: #### N T-PROBNP #### [facility] , Creatine kinase [Enzymatic a ctivity/volume] in Serum or PlasmaOrdered By: Joel De La Paz on 10-19-2024 CK [Catalytic activity/Vol] Creatine kinase [Enzymatic activity/volume] in Serum or Plasma 30- [facility] Creatinine [Mass/volume] in Serum or PlasmaOrdered By: Joel De La Paz on 10-19-2024 Creatinine [Mass/Vol] Creatinine [Mass/v olume] in Serum or Plasma High 0.70-1.30 [facility] ECG 12 lead ECGon 10-19-2024 ECG 12 [place] [address] Electrocardiograph Report Signed Patient: Char Alatorre MR#: [id number] 4 : 1950 Acct:[id number] Age/Sex: 73 / M ADM Date: 10/19/24 Loc: ER Room: Type: [facility] ER Attending Dr: Ordering Provider: Joel [...] Confirmed by Joel DE LA PAZ DO ([id number]) on 10/19/2024 2:39:22 PM Referred By: Electronically Signed By: Joel DE LA PAZ DO Transcribed By: MUS Signed By Joel De La Paz DO 0 10/19/24 1439 Normal [facility] Eosinophils Auto (Bld) [#/Vo l]Ordered By: Joel De La Paz on 10-19-2024 Eosinophils (Bld) [#/Vol] Automated eosinophil count 0.0-0.45 [facility] Eosinophils/100 WBC Auto (Bl d)Ordered By: Joel De La Paz on 10-19-2024 Eosinophils/100 WBC (Bld) Automated eosinophil % . [facility] Erythrocyte distribution wid th Auto (RBC) [Ratio]Ordered By: Joel De La Paz on 10-19-2024 Erythrocyte distribution width (RBC) [Ratio] Erythrocyte distribution width [Ratio] by Automated count High 12.0-14.8 [facility] Globulin Calc (S) [Mass/Vol] Ordered By: Joel De La Paz on 10-19-2024 Globulin (S) [Mass/Vol] Serum globulin measurement by calculation (mass/volume) [facility] Glucose [Mass/volume] in Ser um or PlasmaOrdered By: Joel De La Paz on 10-19-2024 Glucose [Mass/Vol] Glucose [Mass/volume ] in Serum or Plasma High 70-100 [facility] Comment on above: ADA recommended refe [...] of Blood by Automated count Low 38.8-50.0 [facility] Hemoglobin [Mass/volume] in BloodOrdered By: Joel De La Paz on 10-19-2024 Hemoglobin (Bld) [Mass/Vol] Hemoglobin [Mass/volume] in Blood Low 13.0-17.0 [facility] Leukocytes [#/volume] correc anna for nucleated erythrocytes in Blood by Automated counOrdered By: Joel De La Paz on 10-19-2024 WBC corrected for nucl RBC Auto (Bld) [#/Vol] Leukocytes [#/volume] corrected for nucleated erythrocytes in Blood by Automated coun 4.1-10.5 [facility] Lymphocytes Auto (Bld) [#/Vo l]Ordered By: Joel De La Paz on 10-19-2024 Lymphocytes (Bld) [#/Vol] Lymphocytes [#/volume] in Blood by Automated count 1.00-4.8 [facility] Lymphocytes/100 WBC Auto (Bl d)Ordered By: Joel De La Paz on 10-19-2024 Lymphocytes/100 WBC (Bld) Lymphocytes/100 leukocytes in Blood by Automated count . [facility] MCH Auto (RBC) [Entitic mass ]Ordered By: Joel De La Paz on 10-19-2024 MCH (RBC) [Entitic mass] MCH [Entitic mass] by Automated count Low 27.5-35.2 [facility] MCHC Auto (RBC) [Mass/Vol]Or dered By: Joel De La Paz on 10-19-2024 MCHC (RBC) [Mass/Vol] MCHC [Mass/volume] by Automated count Low 32.5-35.6 [facility] MCV Auto (RBC) [Entitic vol] Ordered By: Joel De La Paz on 10-19-2024 MCV (RBC) [Entitic vol] MCV [Entitic volume] by Automated count Low 83.5-101 [facility] Monocyte distribution width [Entitic volume] in Blood by AutomatedOrdered By: Joel De La Paz on 10-19-2024 Monocyte distribution width Auto (Bld) [Entitic vol] Monocyte distribution width [Entitic volume] in Blood by Automated High 0.00-20.00 [facility] Comment on above: For adults in ED, MD W > 20.0 may be associated with a higher risk of sepsis during the first 12 hrs of hospital admission Monocytes Auto (Bld) [#/Vol] Ordered By: Joel De La Paz on 10-19-2024 Monocytes (Bld) [#/Vol] Automated blood monocyte count 0.0-0.8 [facility] Monocytes/100 WBC Auto (Bld) Ordered By: Joel De La Paz on 10-19-2024 Monocytes/100 WBC (Bld) Automated monocyte % . [facility] Natriuretic peptide B [Mass/ Vol]Ordered By: Joel De La Paz on 10-19-2024 Natriuretic peptide B (Bld) [Mass/Vol] BNP ser/plas High 5-100 [facility] Neutrophils Auto (Bld) [#/Vo l]Ordered By: Joel De La Paz on 10-19-2024 Neutrophils (Bld) [#/Vol] Neutrophils [#/volume] in Blood by Automated count 1.8-7.7 [facility] Neutrophils/100 WBC Auto (Bl d)Ordered By: Joel De La Paz on 10-19-2024 Neutrophils/100 WBC (Bld) Automated neutrophil % . [facility] No Panel InformationOrdered By: Joel De La Paz on 10-19-2024 Estimated GFR (CKD-EPI) 31.216 mL/Min [facility] Creatinine Clearance (Chem 33.47 [facility] Nucleated erythrocytes [Pres ence] in Blood by Automated countOrdered By: Joel De La Paz on 10-19-2024 Nucleated RBC Auto Ql (Bld) Nucleated erythrocytes [Presence] in Blood by Automated count 0-0.5 [facility] Platelet mean volume Auto (B ld) [Entitic vol]Ordered By: Joel De La Paz on 10-19-2024 Platelet mean volume (Bld) [Entitic vol] Platelet mean volume [Entitic volume] in Blood by Automated count 6.6-10.1 [facility] Platelets Auto (Bld) [#/Vol] Ordered By: Joel De La Paz on 10-19-2024 Platelets (Bld) [#/Vol] Platelets [#/volume] in Blood by Automated count 150-450 [facility] Potassium [Moles/volume] in Serum or PlasmaOrdered By: Joel De La Paz on 10-19-2024 Potassium [Moles/Vol] Potassium [Moles/v olume] in Serum or Plasma 3.5-5.1 [facility] Protein [Mass/volume] in Ser um or PlasmaOrdered By: Joel De La Paz on 10-19-2024 Protein [Mass/Vol] Protein [Mass/volume ] in Serum or Plasma 6.4-8.9 [facility] RBC Auto (Bld) [#/Vol]Ordere d By: Joel De La Paz on 10-19-2024 RBC (Bld) [#/Vol] Erythrocytes [#/volu me] in Blood by Automated count Low 3.90-5.60 [facility] Respiratory specimen influen za A virus, influenza B virus, respiratory syncytical virOrdered By: Joel De La Paz on 10-19-2024 SARS-CoV-2 (COVID-19) RNA MICHELLE+probe Ql (Unsp spec) Respiratory specimen influenza A virus, influenza B virus, respiratory syncytical vir [facility] Serum or plasma albumin/glob ulin mass ratioOrdered By: Joel De La Paz on 10-19-2024 Albumin/Globulin [Mass ratio] Serum or plasma albumin/globulin mass ratio [facility] Serum or plasma anion gap de terminationOrdered By: Joel De La Paz on 10-19-2024 Anion gap [Moles/Vol] Serum or plasma an ion gap determination 6.0-15.0 [facility] Sodium [Moles/volume] in Ser um or PlasmaOrdered By: Joel De La Paz on 10-19-2024 Sodium [Moles/Vol] Sodium [Moles/volume ] in Serum or Plasma Low 136-145 [facility] Troponin I High Sensitivityo n 10-19-2024 Troponin I High Sensitivity 39.8 pg/mL High 0.0-20.0 [facility] Comment on above: Result Comment: PERF ORMED BY: [facility] [address] [place] [address] PATHOLOGIST [employer] CUSTODIAN GRANT SCHNEIDER M.D. Performed By: #### N T-PROBNP #### [facility] , Troponin I.cardiac [Mass/vol ume] in Serum or Plasma by Detection limit <= 0.01 ng/Ordered By: Joel De La Paz on 10-19-2024 Troponin I.cardiac DL <= 0.01 ng/mL [Mass/Vol] Troponin I.cardiac [Mass/volume] in Serum or Plasma by Detection limit <= 0.01 ng/ High 0.0-20.0 [facility] Urea nitrogen [Mass/volume] in Serum or PlasmaOrdered By: Joel De La Paz on 10-19-2024 Urea nitrogen [Mass/Vol] Urea nitrogen [Mass/volume] in Serum or Plasma 05-09 [facility] WBC Auto (Bld) [#/Vol]Ordere d By: Joel De La Paz on 10-19-2024 WBC (Bld) [#/Vol] Leukocytes [#/volume ] in Blood by Automated count 4.1-10.5 [facility] X-ray reportOrdered By: Char Larios on 10-19-2024 Study report [facility] [place] [address] XRay Report Signed Patient: Char Alatorre MR#: [id number] : 1950 Acct:[id number] Age/Sex: 73 / M ADM Date: 5 Loc: ER Room: Type: [facility] ER Attending Dr: Copies to: Joel [...] Char Larios M.D.10/19/2024 1:26 PM Dictation Location: [place] [address] Transcribed By: LUCI 10/19/241325 Dictated By: Char Larios II, MD 10/19/241324 Signed By: 10/19/241325 [facility] Work Phone: XR chest 2V*on 10-19-2024 XR chest 2V* [facility] [place] [address] XRay Report Signed Patient: Char Alatorre MR#: [id number] 4 : 1950 Acct:[id number] Age/Sex: 73 / M ADM Date: 10/19/24 Loc: ER Room: Type: [facility] ER Attending Dr: Copies to: Joel [...] Char Larios M.D.10/19/2024 1:26 PM Dictation Location: [place] [address] Transcribed By: LUCI 10/19/24 1326 Dictated By: Char Larios II, MD 10/19/241324 Signed By: 10/19/24 1326 Normal [facility] Alanine aminotransferase [En zymatic activity/volume] in Serum or PlasmaOrdered By: Arturo Le on 10-09-2024 ALT [Catalytic activity/Vol] Alanine aminotransferase [Enzymatic activity/volume] in Serum or Plasma Low 7-52 [facility] Albumin [Mass/volume] in Ser um or Plasma by Bromocresol green (BCG) dye binding methoOrdered By: Arturo Le on 10-09-2024 Albumin BCG dye [Mass/Vol] Albumin [Mass/volume] in Serum or Plasma by Bromocresol green (BCG) dye binding metho Low 3.5-5.7 [facility] Alkaline phosphatase [Enzyma tic activity/volume] in Serum or PlasmaOrdered By: Arturo Le on 10-09-2024 ALP [Catalytic activity/Vol] Alkaline phosphatase [Enzymatic activity/volume] in Serum or Plasma High 34-104 [facility] Aspartate aminotransferase [ Enzymatic activity/volume] in Serum or PlasmaOrdered By: Arturo Le on 10-09-2024 AST [Catalytic activity/Vol] Aspartate aminotransferase [Enzymatic activity/volume] in Serum or Plasma Low 13-39 [facility] Basic Metabolic Panelon 09-16 Anion gap [Moles/Vol] 10.4 mmol/L Normal 6.0-15.0 [facility] Comment on above: Performed By: #### P T, PTT, BNP, CBC #### [facility] [address] Calcium [Mass/Vol] 9.9 mg/dL Normal 8.6-10.3 [facility] Comment on above: Performed By: #### P T, PTT, BNP, CBC #### [facility] [address] Chloride [Moles/Vol] 101 mmol/L Normal 98-107 [facility] Comment on above: Performed By: #### P T, PTT, BNP, CBC #### [facility] [address] CO2 [Moles/Vol] 27.4 mmol/L Normal 21.0-31.0 [facility] Comment on above: Performed By: #### P T, PTT, BNP, CBC #### [facility] [address] [place] [address] [place] Creatinine [Mass/Vol] 1.98 mg/dL High 0.70-1.30 [facility] Comment on above: Performed By: #### P T, PTT, BNP, CBC #### [facility] [address] [place] [address] [place] Creatinine Clr Calc Pharmacy 37.01 Normal [facility] Comment on above: Result Comment: PERF ORMED BY: [place] [address] PATHOLOGIST [employer] RO[employer] CUSTODIAN GRANT SCHNEIDER M.D. Performed By: #### P T, PTT, BNP, CBC #### [facility] [address] Estimated GFR 35.229 mL/Min Normal [facility] Comment on above: Performed By: #### P T, PTT, BNP, CBC #### [facility] [address] Glucose [Mass/Vol] 134 mg/dL High 70-100 [facility] Comment on above: Result Comment: [place] Glucose Reference Range is dependent on time and content of last meal. Glucose of more than 200 mg/dL in a nonstressed, ambulatory subject supports the diagnosis of Diabetes Mellitus. ADA recommended reference range Performed By: #### P T, PTT, BNP, CBC #### [address] Potassium [Moles/Vol] 3.8 mmol/L Normal 3.5-5.1 [facility] Comment on above: Performed By: #### P T, PTT, BNP, CBC #### [address] Sodium [Moles/Vol] 135 mmol/L Low 136-145 [facility] Comment on above: Performed By: #### P T, PTT, BNP, CBC #### [address] Urea nitrogen [Mass/Vol] 23 mg/dL Normal 7-25 [facility] Comment on above: Performed By: #### P T, PTT, BNP, CBC #### [address] Basophils Auto (Bld) [#/Vol] Ordered By: Arturo Le on 10-09-2024 Basophils (Bld) [#/Vol] Automated basophil count 0.0-0.2 [facility] Basophils/100 WBC Auto (Bld) Ordered By: Arturo Le on 10-09-2024 Basophils/100 WBC (Bld) Automated basophil % . [facility] Bilirubin.direct [Mass/volum e] in Serum or PlasmaOrdered By: Arturo Le on 10-09-2024 Bilirubin.direct [Mass/Vol] Bilirubin.direct [Mass/volume] in Serum or Plasma High 0.03-0.18 [facility] Bilirubin.total [Mass/volume ] in Serum or PlasmaOrdered By: Arturo Le on 10-09-2024 Bilirubin [Mass/Vol] Bilirubin.total [Mass/volume] in Serum or Plasma 0.3-1.0 [facility] CT angio abdomen pelvison CT angio abdomen pelvis [facility] [place] [address] CT Scan Report Signed with Addenda Patient: Char Alatorre MR#: [id number] 4 : 1950 Acct:[id number] Age/Sex: 73 / M ADM Date: 10/09/24 Loc: ER Room: Type: [facility] ER Attending Dr: Copies to: Arturo [...] dictat (more content not included)... Normal [facility] Calcium [Mass/volume] in Ser um or PlasmaOrdered By: Arturo Le on 10-09-2024 Calcium [Mass/Vol] Calcium [Mass/volume ] in Serum or Plasma 8.6-10.3 [facility] Carbon dioxide, total [Moles /volume] in Serum or PlasmaOrdered By: Arturo Le on 10-09-2024 CO2 [Moles/Vol] Carbon dioxide, tota l [Moles/volume] in Serum or Plasma 21.0-31.0 [facility] Chloride [Moles/volume] in S zoey or PlasmaOrdered By: Arturo Le on 10-09-2024 Chloride [Moles/Vol] Chloride [Moles/vol ume] in Serum or Plasma 98-107 [facility] Complete Blood Count Auto Di ffon 10-09-2024 Basophils (Bld) [#/Vol] 0.1 10*3/uL Normal 0.0-0.2 [facility] Comment on above: Result Comment: PERF ORMED BY: [place] [address] PATHOLOGIST [employer] RO[employer] CUSTODIAN GRANT SCHNEIDER M.D. Performed By: #### P T, PTT, BNP, CBC #### [facility] [address] [place] [address] Basophils/100 WBC (Bld) 3.1 % Normal . [facility] Comment on above: Performed By: #### P T, PTT, BNP, CBC #### [facility] [address] Eosinophils (Bld) [#/Vol] 0.0 10*3/uL Normal 0.0-0.45 [facility] Comment on above: Performed By: #### P T, PTT, BNP, CBC #### [address] Eosinophils/100 WBC (Bld) 0.4 % Normal . [facility] Comment on above: Performed By: #### P T, PTT, BNP, CBC #### [address] Erythrocyte distribution width (RBC) [Ratio] 17.6 % High 12.0-14.8 [facility] Comment on above: Performed By: #### P T, PTT, BNP, CBC #### [address] Hematocrit (Bld) [Volume fraction] 27.9 % Low 38.8-50.0 [facility] Comment on above: Performed By: #### P T, PTT, BNP, CBC #### [address] Hemoglobin (Bld) [Mass/Vol] 8.9 g/dL Low 13.0-17.0 [facility] Comment on above: Performed By: #### P T, PTT, BNP, CBC #### [address] Lymphocytes (Bld) [#/Vol] 0.7 10*3/uL Low 1.00-4.8 [facility] Comment on above: Performed By: #### P T, PTT, BNP, CBC #### [address] Lymphocytes/100 WBC (Bld) 14.8 % Normal . [facility] Comment on above: Performed By: #### P T, PTT, BNP, CBC #### [address] MCH (RBC) [Entitic mass] 23.7 pg Low 27.5-35.2 [facility] Comment on above: Performed By: #### P T, PTT, BNP, CBC #### [address] MCV (RBC) [Entitic vol] 74.4 fL Low 83.5-101 [facility] Comment on above: Performed By: #### P T, PTT, BNP, CBC #### [address] Mean Corpuscular HGB Conc 31.8 g/dL Low 32.5-35.6 [facility] Comment on above: Performed By: #### P T, PTT, BNP, CBC #### [address] Monocytes (Bld) [#/Vol] 0.3 10*3/uL Normal 0.0-0.8 [facility] Comment on above: Performed By: #### P T, PTT, BNP, CBC #### [address] Monocytes/100 WBC (Bld) 23.60 % High 0.00-20.00 [facility] Comment on above: Result Comment: For adults in ED, MDW > 20.0 may be associated with a higher risk of sepsis during the first 12 hrs of hospital admission Performed By: #### P T, PTT, BNP, CBC #### [address] Monocytes/100 WBC (Bld) 7.1 % Normal . [facility] Comment on above: Performed By: #### P T, PTT, BNP, CBC #### [address] Neutrophils (Bld) [#/Vol] 3.5 10*3/uL Normal 1.8-7.7 [facility] Comment on above: Performed By: #### P T, PTT, BNP, CBC #### [address] Neutrophils/100 WBC (Bld) 74.6 % Normal . [facility] Comment on above: Performed By: #### P T, PTT, BNP, CBC #### [address] NRBC% 0.0 /100{WBC} Normal 0-0.5 [facility] Comment on above: Performed By: #### P T, PTT, BNP, CBC #### [facility] [address] Platelet mean volume (Bld) [Entitic vol] 6.6 fL Normal 6.6-10.1 [facility] Comment on above: Performed By: #### P T, PTT, BNP, CBC #### [facility] [address] Platelets (Bld) [#/Vol] 239 10*3/uL Normal 150-450 [facility] Comment on above: Performed By: #### P T, PTT, BNP, CBC #### [facility] [address] RBC (Bld) [#/Vol] 3.75 10*6/uL Low 3.90-5.60 [facility] Comment on above: Performed By: #### P T, PTT, BNP, CBC #### [address] WBC (Bld) [#/Vol] 4.7 10*3/uL Normal 4.1-10.5 [facility] Comment on above: Performed By: #### P T, PTT, BNP, CBC #### [address] Creatinine (Bld) [Mass/Vol]O rdered By: Arturo Le on 10-09-2024 Creatinine [Mass/Vol] Whole blood creati nine measurement High 0.6-1.3 [facility] Comment on above: ER/ESD physician is notified/shown all ISTAT results.Critical values may be confirmed by laboratory testing ifdeemed necessary by ER attending doctor. Creatinine [Mass/volume] in Serum or PlasmaOrdered By: Arturo Le on 10-09-2024 Creatinine [Mass/Vol] Creatinine [Mass/v olume] in Serum or Plasma High 0.70-1.30 [facility] ECG 12 lead ECGon 10-09-2024 ECG 12 lead ECG [facility] [place] [address] [place] [address] Electrocardiograph Report Signed Patient: Char Alatorre MR#: [id number] 4 : 1950 Acct:[id number] Age/Sex: 73 / M ADM Date: 10/09/24 Loc: ER Room: Type: [facility] ER Attending Dr: Ordering Provider: Arturo [...] By Arturo Le MD 09/16 Normal [facility] Eosinophils Auto (Bld) [#/Vo l]Ordered By: Arturo Le on 10-09-2024 Eosinophils (Bld) [#/Vol] Automated eosinophil count 0.0-0.45 [facility] Eosinophils/100 WBC Auto (Bl d)Ordered By: Arturo Le on 10-09-2024 Eosinophils/100 WBC (Bld) Automated eosinophil % . [facility] Erythrocyte distribution wid th Auto (RBC) [Ratio]Ordered By: Arturo Le on 10-09-2024 Erythrocyte distribution width (RBC) [Ratio] Erythrocyte distribution width [Ratio] by Automated count High 12.0-14.8 [facility] Globulin Calc (S) [Mass/Vol] Ordered By: Arturo Le on 10-09-2024 Globulin (S) [Mass/Vol] Serum globulin measurement by calculation (mass/volume) [facility] Glucose [Mass/volume] in Ser um or PlasmaOrdered By: Arturo Le on 10-09-2024 Glucose [Mass/Vol] Glucose [Mass/volume ] in Serum or Plasma High 70-100 [facility] Comment on above: ADA recommended refe rence rangeRandom Glucose Reference Range is dependent on time and content of last meal. Glucose of more than 200 mg/dL in a nonstressed, ambulatory subject supports the diagnosis of Diabetes Mellitus. Hematocrit Auto (Bld) [Volum e fraction]Ordered By: Arturo Le on 10-09-2024 Hematocrit (Bld) [Volume fraction] Hematocrit [Volume Fraction] of Blood by Automated count Low 38.8-50.0 [facility] Hemoglobin [Mass/volume] in BloodOrdered By: Arturo Le on 10-09-2024 Hemoglobin (Bld) [Mass/Vol] Hemoglobin [Mass/volume] in Blood Low 13.0-17.0 [facility] Hepatic Panelon 10-09-2024 Albumin [Mass/Vol] 3.3 g/dL Low 3.5-5.7 [facility] Comment on above: Performed By: #### P T, PTT, BNP, CBC #### [address] Albumin/Globulin [Mass ratio] 0.9 {ratio} Normal [facility] Comment on above: Performed By: #### P T, PTT, BNP, CBC #### [address] ALP [Catalytic activity/Vol] 109 U/L High 34-104 [facility] Comment on above: Performed By: #### P T, PTT, BNP, CBC #### [address] ALT [Catalytic activity/Vol] 6 U/L Low 7-52 [facility] Comment on above: Performed By: #### P T, PTT, BNP, CBC #### [place] [address] [place] AST [Catalytic activity/Vol] 10 U/L Low 13-39 [facility] Comment on above: Performed By: #### P T, PTT, BNP, CBC #### [address] Bilirubin [Mass/Vol] 0.9 mg/dL Normal 0.3-1.0 [facility] Comment on above: Performed By: #### P T, PTT, BNP, CBC #### [address] [place] [address] [place] Bilirubin,Indirect 0.7 mg/dL Normal [facility] Comment on above: Performed By: #### P T, PTT, BNP, CBC #### [address] Bilirubin.indirect [Mass/Vol] 0.20 mg/dL High 0.03-0.18 [facility] Comment on above: Performed By: #### P T, PTT, BNP, CBC #### [address] Globulin (S) [Mass/Vol] 3.6 g/dL Normal [facility] Comment on above: Performed By: #### P T, PTT, BNP, CBC #### [address] Protein [Mass/Vol] 6.9 g/dL Normal 6.4-8.9 [facility] Comment on above: Performed By: #### P T, PTT, BNP, CBC #### [address] ISTAT XRay CREon 10-09-2024 Creatinine [Mass/Vol] 2.1 mg/dL High 0.6-1.3 [facility] Comment on above: Result Comment: ER/E SD physician is notified/shown all ISTAT results. Critical values may be confirmed by laboratory testing if deemed necessary by ER attending doctor. Performed By: #### C BC #### [address] ISTAT GFR 32.828 Normal [facility] Comment on above: Result Comment: PERF ORMED BY: [place] [address] PATHOLOGIST [employer] RO[employer] CUSTODIAN GRANT SCHNEIDER M.D. Performed By: #### C BC #### [address] Lactate [Moles/volume] in Se rum or PlasmaOrdered By: Arturo Le on 10-09-2024 Lactate [Moles/Vol] Lactate [Moles/volum e] in Serum or Plasma 0.5-2.2 [facility] Lactic Acidon 10-09-2024 Lactate [Moles/Vol] 1.2 mmol/L Normal 0.5-2.2 [facility] Comment on above: Result Comment: PERF ORMED BY: [facility] [address] [place] [address] PATHOLOGIST [employer] CUSTODIAN GRANT SCHNEIDER M.D. Performed By: #### P T, PTT, BNP, CBC #### [facility] [address] Leukocytes [#/volume] correc anna for nucleated erythrocytes in Blood by Automated counOrdered By: Arturo Le on 10-09-2024 WBC corrected for nucl RBC Auto (Bld) [#/Vol] Leukocytes [#/volume] corrected for nucleated erythrocytes in Blood by Automated coun 4.1-10.5 [facility] Lymphocytes Auto (Bld) [#/Vo l]Ordered By: Arturo Le on 10-09-2024 Lymphocytes (Bld) [#/Vol] Lymphocytes [#/volume] in Blood by Automated count Low 1.00-4.8 [facility] Lymphocytes/100 WBC Auto (Bl d)Ordered By: Arturo Le on 10-09-2024 Lymphocytes/100 WBC (Bld) Lymphocytes/100 leukocytes in Blood by Automated count . [facility] MCH Auto (RBC) [Entitic mass ]Ordered By: Arturo Le on 10-09-2024 MCH (RBC) [Entitic mass] MCH [Entitic mass] by Automated count Low 27.5-35.2 [facility] MCHC Auto (RBC) [Mass/Vol]Or dered By: Arturo Le on 10-09-2024 MCHC (RBC) [Mass/Vol] MCHC [Mass/volume] by Automated count Low 32.5-35.6 [facility] MCV Auto (RBC) [Entitic vol] Ordered By: Arturo Le on 10-09-2024 MCV (RBC) [Entitic vol] MCV [Entitic volume] by Automated count Low 83.5-101 [facility] Monocyte distribution width [Entitic volume] in Blood by AutomatedOrdered By: Arturo Le on 10-09-2024 Monocyte distribution width Auto (Bld) [Entitic vol] Monocyte distribution width [Entitic volume] in Blood by Automated High 0.00-20.00 [facility] Comment on above: For adults in ED, MD W > 20.0 may be associated with a higher risk of sepsis during the first 12 hrs of hospital admission Monocytes Auto (Bld) [#/Vol] Ordered By: Arturo Le on 10-09-2024 Monocytes (Bld) [#/Vol] Automated blood monocyte count 0.0-0.8 [facility] Monocytes/100 WBC Auto (Bld) Ordered By: Arturo Le on 10-09-2024 Monocytes/100 WBC (Bld) Automated monocyte % . [facility] Neutrophils Auto (Bld) [#/Vo l]Ordered By: Arturo Le on 10-09-2024 Neutrophils (Bld) [#/Vol] Neutrophils [#/volume] in Blood by Automated count 1.8-7.7 [facility] Neutrophils/100 WBC Auto (Bl d)Ordered By: Arturo Le on 10-09-2024 Neutrophils/100 WBC (Bld) Automated neutrophil % . [facility] No Panel InformationOrdered By: Arturo Le on 10-09-2024 Bedside Estimated GFR (eGFR) 32.828 [facility] Estimated GFR (CKD-EPI) 35.229 mL/Min [facility] Pharmacy Creatinine Clearance (Chem 37.01 [facility] Nucleated erythrocytes [Pres ence] in Blood by Automated countOrdered By: Arturo Le on 10-09-2024 Nucleated RBC Auto Ql (Bld) Nucleated erythrocytes [Presence] in Blood by Automated count 0-0.5 [facility] Platelet mean volume Auto (B ld) [Entitic vol]Ordered By: Arturo Le on 10-09-2024 Platelet mean volume (Bld) [Entitic vol] Platelet mean volume [Entitic volume] in Blood by Automated count 6.6-10.1 [facility] Platelets Auto (Bld) [#/Vol] Ordered By: Arturo Le on 10-09-2024 Platelets (Bld) [#/Vol] Platelets [#/volume] in Blood by Automated count 150-450 [facility] Potassium [Moles/volume] in Serum or PlasmaOrdered By: Arturo Le on 10-09-2024 Potassium [Moles/Vol] Potassium [Moles/v olume] in Serum or Plasma 3.5-5.1 [facility] Protein [Mass/volume] in Ser um or PlasmaOrdered By: Arturo Le on 10-09-2024 Protein [Mass/Vol] Protein [Mass/volume ] in Serum or Plasma 6.4-8.9 [facility] RBC Auto (Bld) [#/Vol]Ordere d By: Arturo Le on 10-09-2024 RBC (Bld) [#/Vol] Erythrocytes [#/volu me] in Blood by Automated count Low 3.90-5.60 [facility] Serum or plasma albumin/glob ulin mass ratioOrdered By: Arturo Le on 10-09-2024 Albumin/Globulin [Mass ratio] Serum or plasma albumin/globulin mass ratio [facility] Serum or plasma anion gap de terminationOrdered By: Arturo Le on 10-09-2024 Anion gap [Moles/Vol] Serum or plasma an ion gap determination 6.0-15.0 [facility] Serum or plasma non-glucuron idated bilirubin measurement (mass/volume)Ordered By: Arturo Le on 10-09-2024 Bilirubin.indirect [Mass/Vol] Serum or plasma non-glucuronidated bilirubin measurement (mass/volume) [facility] Center Sodium [Moles/volume] in Ser um or PlasmaOrdered By: Arturo Le on 10-09-2024 Sodium [Moles/Vol] Sodium [Moles/volume ] in Serum or Plasma Low 136-145 [facility] Stool Occult Blood (Guaiac)o n 10-09-2024 Stool Occult Blood (Guaiac) Occult Blood Negative for Occult Blood by Guaiac Methodology -- Reference range = Negative PERFORMED BY: [facility] [address] [place] [address] PATHOLOGIST JOCKEY ROOM CUSTODIAN GRANT SCHNEIDER M.D. Normal [facility] Comment on above: Performed By: #### P T, PTT, BNP, CBC #### [facility] [address] Stool gastrointestinal hemog lobin detectionOrdered By: Arturo Le on 10-09-2024 Hemoglobin.gastrointes tinal Ql (Stl) Stool gastrointestinal hemoglobin detection [facility] Urea nitrogen [Mass/volume] in Serum or PlasmaOrdered By: Arturo Le on 10-09-2024 Urea nitrogen [Mass/Vol] Urea nitrogen [Mass/volume] in Serum or Plasma 05-09 [facility] WBC Auto (Bld) [#/Vol]Ordere d By: Arturo Le on 10-09-2024 WBC (Bld) [#/Vol] Leukocytes [#/volume ] in Blood by Automated count 4.1-10.5 [facility] Albumin [Mass/volume] in Ser um or Plasma by Bromocresol green (BCG) dye binding methoOrdered By: Magy Cummings on 09-03-2024 Albumin BCG dye [Mass/Vol] Albumin [Mass/volume] in Serum or Plasma by Bromocresol green (BCG) dye binding metho 3.5-5.7 [facility] Appearance of UrineOrdered B y: Magy Cummings on 09-03-2024 Appearance (U) Urine appearance Clear [facility] Bacteria [Presence] in Urine by AutomatedOrdered By: Magy Cummings on 09-03-2024 Bacteria Auto Ql (U) Bacteria [Presence] in Urine by Automated None Seen [facility] Basophils Auto (Bld) [#/Vol] Ordered By: Magy Cummings on 09-03-2024 Basophils (Bld) [#/Vol] Automated basophil count 0.0-0.2 [facility] Basophils/100 WBC Auto (Bld) Ordered By: Magy Cummings on 09-03-2024 Basophils/100 WBC (Bld) Automated basophil % . [facility] Bilirubin Test strip Ql (U)O rdered By: Magy Cummings on 09-03-2024 Bilirubin Ql (U) Bilirubin.total [Pre sence] in Urine by Test strip Negative [facility] Calcium [Mass/volume] in Ser um or PlasmaOrdered By: Magy Cummings on 09-03-2024 Calcium [Mass/Vol] Calcium [Mass/volume ] in Serum or Plasma 8.6-10.3 [facility] Carbon dioxide, total [Moles /volume] in Serum or PlasmaOrdered By: Magy Cummings on 09-03-2024 CO2 [Moles/Vol] Carbon dioxide, tota l [Moles/volume] in Serum or Plasma High 21.0-31.0 [facility] Chloride [Moles/volume] in S zoey or PlasmaOrdered By: Magy Cummings on 09-03-2024 Chloride [Moles/Vol] Chloride [Moles/vol ume] in Serum or Plasma 98-107 [facility] Color Auto (U)Ordered By: Ab tiarra Cummings on 09-03-2024 Color (U) Color of Urine by Auto Yellow [facility] Complete Blood Count Auto Di ffon 09-03-2024 Basophils (Bld) [#/Vol] 0.1 10*3/uL Normal 0.0-0.2 [facility] Comment on above: Result Comment: PERF ORMED BY: [place] [address] PATHOLOGIST JOCKEY ROOM CUSTODIAN GRANT SCHNEIDER M.D. Performed By: #### C BC #### [address] Basophils/100 WBC (Bld) 1.0 % Normal . [facility] Comment on above: Performed By: #### C BC #### [place] [address] [place] Eosinophils (Bld) [#/Vol] 0.1 10*3/uL Normal 0.0-0.45 [facility] Comment on above: Performed By: #### C BC #### [place] [address] [place] Eosinophils/100 WBC (Bld) 1.4 % Normal . [facility] Comment on above: Performed By: #### C BC #### [address] Erythrocyte distribution width (RBC) [Ratio] 16.4 % High 12.0-14.8 [facility] Comment on above: Performed By: #### C BC #### [address] Hematocrit (Bld) [Volume fraction] 32.0 % Low 38.8-50.0 [facility] Comment on above: Performed By: #### C BC #### [address] Hemoglobin (Bld) [Mass/Vol] 10.3 g/dL Low 13.0-17.0 [facility] Comment on above: Performed By: #### C BC #### [address] Lymphocytes (Bld) [#/Vol] 1.3 10*3/uL Normal 1.00-4.8 [facility] Comment on above: Performed By: #### C BC #### [address] Lymphocytes/100 WBC (Bld) 24.7 % Normal . [facility] Comment on above: Performed By: #### C BC #### [address] MCH (RBC) [Entitic mass] 24.3 pg Low 27.5-35.2 [facility] Comment on above: Performed By: #### C BC #### [address] MCV (RBC) [Entitic vol] 75.6 fL Low 83.5-101 [facility] Comment on above: Performed By: #### C BC #### [address] Mean Corpuscular HGB Conc 32.1 g/dL Low 32.5-35.6 [facility] Comment on above: Performed By: #### C BC #### [address] Monocytes (Bld) [#/Vol] 0.7 10*3/uL Normal 0.0-0.8 [facility] Comment on above: Performed By: #### C BC #### [facility] [address] Monocytes/100 WBC (Bld) 14.1 % Normal . [facility] Comment on above: Performed By: #### C BC #### [address] Neutrophils (Bld) [#/Vol] 3.0 10*3/uL Normal 1.8-7.7 [facility] Comment on above: Performed By: #### C BC #### [address] Neutrophils/100 WBC (Bld) 58.8 % Normal . [facility] Comment on above: Performed By: #### C BC #### [address] NRBC% 0.2 /100{WBC} Normal 0-0.5 [facility] Comment on above: Performed By: #### C BC #### [address] Platelet mean volume (Bld) [Entitic vol] 6.6 fL Normal 6.6-10.1 [facility] Comment on above: Performed By: #### C BC #### [place] [address] [place] Platelets (Bld) [#/Vol] 218 10*3/uL Normal 150-450 [facility] Comment on above: Performed By: #### C BC #### [place] [address] [place] RBC (Bld) [#/Vol] 4.23 10*6/uL Normal 3.90-5.60 [facility] Comment on above: Performed By: #### C BC #### [address] WBC (Bld) [#/Vol] 5.1 10*3/uL Normal 4.1-10.5 [facility] Comment on above: Performed By: #### C BC #### [facility] [address] [place] [id number] [place] Creatinine [Mass/volume] in Serum or PlasmaOrdered By: Magy Cummings on 09-03-2024 Creatinine [Mass/Vol] Creatinine [Mass/v olume] in Serum or Plasma High 0.70-1.30 [facility] Creatinine [Mass/volume] in UrineOrdered By: Magy Emiliano on 09-03-2024 Creatinine (U) [Mass/Vol] Creatinine [Mass/volume] in Urine [facility] Comment on above: No reference range e stablished Dipstick and Microscopicon 1 11-03-2023 Appearance (U) Clear Normal Clear [facility] Comment on above: Order Comment: Reaso n for Exam Chronic kidney disease, stage 3 unspecified;Kade hy kid w cr Name Collection Type:: Clean-Voided Midstream Performed By: #### A DDONUAPLUS #### [facility] [address] [place] [address] [place] Bacteria,Urine Rare Normal None Seen [facility] Comment on above: Order Comment: Reaso n for Exam Chronic kidney disease, stage 3 unspecified;Kade hy kid w cr Name Collection Type:: Clean-Voided Midstream Performed By: #### A DDONUAPLUS #### [facility] [address] [place] [address] [place] Bilirubin,Urine Negative Normal Negative [facility] Comment on above: Order Comment: Reaso n for Exam Chronic kidney disease, stage 3 unspecified;Kade hy kid w cr Name Collection Type:: Clean-Voided Midstream Performed By: #### A DDONUAPLUS #### [facility] [address] [place] [id number] [place] Color (U) Light-Yellow Normal Yellow [facility] Comment on above: Order Comment: Reaso n for Exam Chronic kidney disease, stage 3 unspecified;Kade hy kid w cr Name Collection Type:: Clean-Voided Midstream Performed By: #### A DDONUAPLUS #### [facility] [address] [place], [place] [id number] [place] Glucose Ql (U) >= High Normal [facility] Comment on above: Order Comment: Reaso n for Exam Chronic kidney disease, stage 3 unspecified;Kade hy kid w cr Name Collection Type:: Clean-Voided Midstream Performed By: #### A DDONUAPLUS #### [facility] [address] [place] [address] [place] Hyaline Casts,Urine 0 [LPF] Normal 0-8 [facility] Comment on above: Order Comment: Reaso n for Exam Chronic kidney disease, stage 3 unspecified;Kade hy kid w cr Name Collection Type:: Clean-Voided Midstream Performed By: #### A DDONUAPLUS #### [address] Ketones Ql (U) Negative Normal Negative [facility] Comment on above: Order Comment: Reaso n for Exam Chronic kidney disease, stage 3 unspecified;Kade hy kid w cr Name Collection Type:: Clean-Voided Midstream Performed By: #### A DDONUAPLUS #### [place] [address] [place] Leukocyte esterase Test strip Ql (U) Negative Normal Negative [facility] Comment on above: Order Comment: Reaso n for Exam Chronic kidney disease, stage 3 unspecified;Kade hy kid w cr Name Collection Type:: Clean-Voided Midstream Performed By: #### A DDONUAPLUS #### [place] [address] [place] Mucus,Urine Rare Normal [facility] Comment on above: Order Comment: Reaso n for Exam Chronic kidney disease, stage 3 unspecified;Kade hy kid w cr Name Collection Type:: Clean-Voided Midstream Result Comment: PERF ORMED BY: [place] [address] PATHOLOGIST JOCKEY ROOM CUSTODIAN GRANT SCHNEIDER M.D. Performed By: #### A DDONUAPLUS #### [place] [address] [place] Nitrite,Urine Negative Normal Negative [facility] Comment on above: Order Comment: Reaso n for Exam Chronic kidney disease, stage 3 unspecified;Kade hy kid w cr Name Collection Type:: Clean-Voided Midstream Performed By: #### A DDONUAPLUS #### [facility] [address] [place] [address] [place] Occult Blood,Urine Negative Normal Negative [facility] Comment on above: Order Comment: Reaso n for Exam Chronic kidney disease, stage 3 unspecified;Kade hy kid w cr Name Collection Type:: Clean-Voided Midstream Performed By: #### A DDONUAPLUS #### [place] [address] [place] pH (U) 6.0 [pH] Normal 5.0-9.0 [facility] Comment on above: Order Comment: Reaso n for Exam Chronic kidney disease, stage 3 unspecified;Kade hy kid w cr Name Collection Type:: Clean-Voided Midstream Performed By: #### A DDONUAPLUS #### [address] Protein (U) [Mass/Vol] 70 mg/dL High Negative [facility] Comment on above: Order Comment: Reaso n for Exam Chronic kidney disease, stage 3 unspecified;Kade hy kid w cr Name Collection Type:: Clean-Voided Midstream Performed By: #### A DDONUAPLUS #### [address] RBC,Urine 1 [HPF] Normal 0-4 [facility] Comment on above: Order Comment: Reaso n for Exam Chronic kidney disease, stage 3 unspecified;Kade hy kid w cr Name Collection Type:: Clean-Voided Midstream Performed By: #### A DDONUAPLUS #### [address] Specificy [place],Urine 1.013 Normal 1.001-1.03 0 [facility] Comment on above: Order Comment: Reaso n for Exam Chronic kidney disease, stage 3 unspecified;Kade hy kid w cr Name Collection Type:: Clean-Voided Midstream Result Comment: Rech ecked by refractometer Performed By: #### A DDONUAPLUS #### [place] [address] [place] Urobilinogen,Urine Normal Normal Normal [facility] Comment on above: Order Comment: Reaso n for Exam Chronic kidney disease, stage 3 unspecified;Kade tilley w cr Name Collection Type:: Clean-Voided Midstream Performed By: #### A DDONUAPLUS #### [facility] [address] WBC,Urine 1 [HPF] Normal 0-4 [facility] Comment on above: Order Comment: Reaso n for Exam Chronic kidney disease, stage 3 unspecified;Kade tilley w cr Name Collection Type:: Clean-Voided Midstream Performed By: #### A DDONUAPLUS #### [facility] [address] Eosinophils Auto (Bld) [#/Vo l]Ordered By: Magy Emiliano on 09-03-2024 Eosinophils (Bld) [#/Vol] Automated eosinophil count 0.0-0.45 [facility] Eosinophils/100 WBC Auto (Bl d)Ordered By: Magy Emiliano on 09-03-2024 Eosinophils/100 WBC (Bld) Automated eosinophil % . [facility] Epithelial cells.squamous [# /area] in Urine sediment by Automated countOrdered By: Magy Emiliano on 09-03-2024 Epithelial cells.squamous Auto (Urine sed) [#/Area] Epithelial cells.squamous [#/area] in Urine sediment by Automated count [facility] Erythrocyte distribution wid th Auto (RBC) [Ratio]Ordered By: Magy Emiliano on 09-03-2024 Erythrocyte distribution width (RBC) [Ratio] Erythrocyte distribution width [Ratio] by Automated count High 12.0-14.8 [facility] Erythrocytes [#/area] in Uri ne sediment by Automated countOrdered By: Magy Emiliano on 09-03-2024 RBC Auto (Urine sed) [#/Area] Erythrocytes [#/area] in Urine sediment by Automated count 0-4 [facility] Ferritinon 09-03-2024 Ferritin [Mass/Vol] 30.7 ng/mL Normal 23.9-336.2 [facility] Comment on above: Order Comment: Reaso n for Exam Chronic kidney disease, stage 3 unspecified;Kade bella kid w cr Reason for Exam: Chronic kidney disease, stage 3 unspecified;Kade hy kid w cr Performed By: #### P T, PTT, BNP, CBC #### [facility] [address] Ferritin [Mass/volume] in Se rum or PlasmaOrdered By: Magy Cummings on 09-03-2024 Ferritin [Mass/Vol] Ferritin [Mass/volum e] in Serum or Plasma 23.9-336.2 [facility] Glucose [Mass/volume] in Ser um or PlasmaOrdered By: Magy Cummings on 09-03-2024 Glucose [Mass/Vol] Glucose [Mass/volume ] in Serum or Plasma 70-100 [facility] Comment on above: ADA recommended refe rence rangeRandom Glucose Reference Range is dependent on time and content of last meal. Glucose of more than 200 mg/dL in a nonstressed, ambulatory subject supports the diagnosis of Diabetes Mellitus. Glucose [Mass/volume] in Uri ne by Test stripOrdered By: Mayg Cummings on 09-03-2024 Glucose Test strip (U) [Mass/Vol] Glucose [Mass/volume] in Urine by Test strip High Normal [facility] Hematocrit Auto (Bld) [Volum e fraction]Ordered By: Magy Cummings on 09-03-2024 Hematocrit (Bld) [Volume fraction] Hematocrit [Volume Fraction] of Blood by Automated count Low 38.8-50.0 [facility] Hemoglobin Test strip Ql (U) Ordered By: Magy Cummings on 09-03-2024 Hemoglobin Ql (U) Hemoglobin [Presence ] in Urine by Test strip Negative [facility] Hemoglobin [Mass/volume] in BloodOrdered By: Magy Cummings on 09-03-2024 Hemoglobin (Bld) [Mass/Vol] Hemoglobin [Mass/volume] in Blood Low 13.0-17.0 [facility] Hyaline casts [#/area] in Ur ine sediment by Automated countOrdered By: Magy Cummings on 09-03-2024 Hyaline casts Auto (Urine sed) [#/Area] Hyaline casts [#/area] in Urine sediment by Automated count 0-8 [facility] Iron [Mass/volume] in Serum or PlasmaOrdered By: Magy Cummings on 09-03-2024 Iron [Mass/Vol] Iron [Mass/volume] i n Serum or Plasma Low 50-212 [facility] Iron and TIBC Profileon 08-16 % Iron Saturation 10.0 % Low 20-50 [facility] Comment on above: Order Comment: Reaso n for Exam Chronic kidney disease, stage 3 unspecified;Kade hy kid w cr Reason for Exam: Chronic kidney disease, stage 3 unspecified;Kade hy kid w cr Performed By: #### P T, PTT, BNP, CBC #### [facility] [address] [place] [id number] [facility] Iron [Mass/Vol] 32 ug/dL Low 50-212 [facility] Comment on above: Order Comment: Reaso n for Exam Chronic kidney disease, stage 3 unspecified;Kade hy kid w cr Reason for Exam: Chronic kidney disease, stage 3 unspecified;Kade hy kid w cr Performed By: #### P T, PTT, BNP, CBC #### [facility] [address] [place] [id number] [facility] Total Iron Binding Capacity 319 ug/dL Normal 255-450 [facility] Comment on above: Order Comment: Reaso n for Exam Chronic kidney disease, stage 3 unspecified;Kade hy kid w cr Reason for Exam: Chronic kidney disease, stage 3 unspecified;Kade hy kid w cr Performed By: #### P T, PTT, BNP, CBC #### [facility] [address] [place] [address] [facility] Transferrin [Mass/Vol] 228 mg/dL Normal 203-362 [facility] Comment on above: Order Comment: Reaso n for Exam Chronic kidney disease, stage 3 unspecified;Kade hy kid w cr Reason for Exam: Chronic kidney disease, stage 3 unspecified;Kade hy kid w cr Performed By: #### P T, PTT, BNP, CBC #### [facility] [address] [place] [id number] [place] Ketones Test strip Ql (U)Ord ered By: Magy Cummings on 09-03-2024 Ketones Ql (U) Ketones [Presence] i n Urine by Test strip Negative [facility] Leukocyte esterase [Presence ] in Urine by Test stripOrdered By: Magy Cummings on 09-03-2024 Leukocyte esterase Test strip Ql (U) Leukocyte esterase [Presence] in Urine by Test strip Negative [facility] Leukocytes [#/area] in Urine sediment by Automated countOrdered By: Magy Cummings on 09-03-2024 WBC Auto (Urine sed) [#/Area] Leukocytes [#/area] in Urine sediment by Automated count 0-4 [facility] Leukocytes [#/volume] correc anna for nucleated erythrocytes in Blood by Automated counOrdered By: Magy Cummings on 09-03-2024 WBC corrected for nucl RBC Auto (Bld) [#/Vol] Leukocytes [#/volume] corrected for nucleated erythrocytes in Blood by Automated coun 4.1-10.5 [facility] Lymphocytes Auto (Bld) [#/Vo l]Ordered By: Magy Cummings on 09-03-2024 Lymphocytes (Bld) [#/Vol] Lymphocytes [#/volume] in Blood by Automated count 1.00-4.8 [facility] Lymphocytes/100 WBC Auto (Bl d)Ordered By: Magy Cummings on 09-03-2024 Lymphocytes/100 WBC (Bld) Lymphocytes/100 leukocytes in Blood by Automated count . [facility] MCH Auto (RBC) [Entitic mass ]Ordered By: Magy Cummings on 09-03-2024 MCH (RBC) [Entitic mass] MCH [Entitic mass] by Automated count Low 27.5-35.2 [facility] MCHC Auto (RBC) [Mass/Vol]Or dered By: Magy Cummings on 09-03-2024 MCHC (RBC) [Mass/Vol] MCHC [Mass/volume] by Automated count Low 32.5-35.6 [facility] MCV Auto (RBC) [Entitic vol] Ordered By: Magy Cummings on 09-03-2024 MCV (RBC) [Entitic vol] MCV [Entitic volume] by Automated count Low 83.5-101 [facility] Magnesiumon 09-03-2024 Magnesium [Mass/Vol] 2.1 mg/dL Normal 1.9-2.7 [facility] Comment on above: Order Comment: Reaso n for Exam Chronic kidney disease, stage 3 unspecified;Kade tilley w cr Reason for Exam: Chronic kidney disease, stage 3 unspecified;Kade tilley cr Performed By: #### P T, PTT, BNP, CBC #### [address] Magnesium [Mass/volume] in S zoey or PlasmaOrdered By: Magy Cummings on 09-03-2024 Magnesium [Mass/Vol] Magnesium [Mass/vol ume] in Serum or Plasma 1.9-2.7 [facility] Monocytes Auto (Bld) [#/Vol] Ordered By: Magy Emiliano on 09-03-2024 Monocytes (Bld) [#/Vol] Automated blood monocyte count 0.0-0.8 [facility] Monocytes/100 WBC Auto (Bld) Ordered By: Magy Emiliano on 09-03-2024 Monocytes/100 WBC (Bld) Automated monocyte % . [facility] Mucus [Presence] in Urine by AutomatedOrdered By: Magy Cummings on 09-03-2024 Mucus Auto Ql (U) Mucus [Presence] in Urine by Automated [facility] NT-proBNPon 09-03-2024 Natriuretic peptide B (Bld) [Mass/Vol] 7564 pg/mL High 0-376 [facility] Comment on above: Result Comment: The following cut-points have been suggested for the use of proBNP for the diagnostic evaluation of heart failure (HF) in patients with acute dyspnea: Modality Age Optimal Cut (years) Point Diagnosis (rule in HF) <50 450 pg/mL 50 - 75 900 pg/mL >75 1800 pg/mL Exclusion (rule out HF) Age independent 300 pg/mL Performed at: [facility] [id number] Gas Inspector: Contreras Pollard PhD, Phone: [phone] PERFORMED BY: [place] [address] PATHOLOGIST JOCKEY ROOM CUSTODIAN GRANT SCHNEIDER M.D. Performed By: #### N T-PROBNP #### [facility] , Natriuretic peptide.B prohor mickey N-Terminal [Mass/volume] in Serum or PlasmaOrdered By: NON STAFF on 09-03-2024 Natriuretic peptide.B prohormone N-Terminal [Mass/Vol] Natriuretic peptide.B prohormone N-Terminal [Mass/volume] in Serum or Plasma High 0-376 [facility] Comment on above: The following cut-po ints have been suggested for theuse of proBNP for the diagnostic evaluation of heartfailure (HF) in patients with acute dyspnea:Modality Age Optimal Cut (years) Point Diag nosis (rule in HF) <50 450 pg/mL 50 - 75 900 pg/mL >75 1800 pg/mLExclusion (rule out HF) Age independent 300 pg/mLPerformed at: - [facility] [place] [id number] Director: Contreras Pollard PhD, Phone: [phone] Neutrophils Auto (Bld) [#/Vo l]Ordered By: Magy Cummings on 09-03-2024 Neutrophils (Bld) [#/Vol] Neutrophils [#/volume] in Blood by Automated count 1.8-7.7 [facility] Neutrophils/100 WBC Auto (Bl d)Ordered By: Magy Cummings on 09-03-2024 Neutrophils/100 WBC (Bld) Automated neutrophil % . [facility] Nitrite Test strip Ql (U)Ord ered By: Magy Cummings on 09-03-2024 Nitrite Ql (U) Nitrite [Presence] i n Urine by Test strip Negative [facility] No Panel InformationOrdered By: Magy Cummings on 09-03-2024 Estimated GFR (CKD-EPI) 33.016 mL/Min [facility] Creatinine Clearance (Chem N/A [facility] Nucleated erythrocytes [Pres ence] in Blood by Automated countOrdered By: Magy Cummings on 09-03-2024 Nucleated RBC Auto Ql (Bld) Nucleated erythrocytes [Presence] in Blood by Automated count 0-0.5 [facility] Parathyrin.intact [Mass/volu me] in Serum or PlasmaOrdered By: Magy Julior on 09-03-2024 Parathyrin.intact [Mass/Vol] Parathyrin.intact [Mass/volume] in Serum or Plasma [facility] Parathyroid Hormone [place] 09-03-2024 Parathyroid Hormone Intact 79.3 pg/mL Normal [facility] Comment on above: Order Comment: Reaso n for Exam Chronic kidney disease, stage 3 unspecified;Kade hy kid w cr Result Comment: PERF ORMED BY: [place] [address] PATHOLOGIST J[employer]KEY ROOM CUSTODIAN GRANT SCHNEIDER M.D. Performed By: #### P T, PTT, BNP, CBC #### [address] Phosphate [Mass/volume] in S zoey or PlasmaOrdered By: Magy Cummings on 09-03-2024 Phosphate [Mass/Vol] Phosphate [Mass/vol ume] in Serum or Plasma 2.5-4.5 [facility] Platelet mean volume Auto (B ld) [Entitic vol]Ordered By: Magy Cummings on 09-03-2024 Platelet mean volume (Bld) [Entitic vol] Platelet mean volume [Entitic volume] in Blood by Automated count 6.6-10.1 [facility] Platelets Auto (Bld) [#/Vol] Ordered By: Magy Cummings on 09-03-2024 Platelets (Bld) [#/Vol] Platelets [#/volume] in Blood by Automated count 150-450 [facility] Potassium [Moles/volume] in Serum or PlasmaOrdered By: Magy Cummings on 09-03-2024 Potassium [Moles/Vol] Potassium [Moles/v olume] in Serum or Plasma 3.5-5.1 [facility] Protein Creat Ratio Ur Rando mon 09-03-2024 Creatinine, Urine (Random) 46.00 mg/dL Normal [facility] Comment on above: Order Comment: Reaso n for Exam Chronic kidney disease, stage 3 unspecified;Kade hy kid w cr Result Comment: No r eference range established Performed By: #### P T, PTT, BNP, CBC #### [facility] [address] Protein (U) [Mass/Vol] 108 mg/dL High 0-9 [facility] Comment on above: Order Comment: Reaso n for Exam Chronic kidney disease, stage 3 unspecified;Kade hy kid w cr Performed By: #### P T, PTT, BNP, CBC #### [facility] [address] [place] [address] Urine Protein/Creatinine Ratio 2348 mg/g{Cre} High 0-200 [facility] Comment on above: Order Comment: Reaso n for Exam Chronic kidney disease, stage 3 unspecified;Kade bella kid w cr Result Comment: PERF ORMED BY: [place] [address] PATHOLOGIST [employer] ROOM CUSTODIAN GRANT SCHNEIDER M.D. Performed By: #### P T, PTT, BNP, CBC #### [address] Protein Test strip (U) [Mass /Vol]Ordered By: aMgy Cummings on 09-03-2024 Protein (U) [Mass/Vol] Protein [Mass/vol ume] in Urine by Test strip High Negative [facility] Protein [Mass/volume] in Uri neOrdered By: Magy Cummings on 09-03-2024 Protein (U) [Mass/Vol] Protein [Mass/vol ume] in Urine High 0-9 [facility] RBC Auto (Bld) [#/Vol]Ordere d By: Magy Cummings on 09-03-2024 RBC (Bld) [#/Vol] Erythrocytes [#/volu me] in Blood by Automated count 3.90-5.60 [facility] Renal Function Panelon 09-03 Albumin [Mass/Vol] 3.6 g/dL Normal 3.5-5.7 [facility] Comment on above: Order Comment: Reaso n for Exam Chronic kidney disease, stage 3 unspecified;Kade hy kid w cr Result Comment: PERF ORMED BY: [place] [address] PATHOLOGIST J[employer] RO[employer] CUSTODIAN GRANT SCHNEIDER M.D. Performed By: #### P T, PTT, BNP, CBC #### [facility] [address] [place] [address] Anion gap [Moles/Vol] 8.1 mmol/L Normal 6.0-15.0 [facility] Comment on above: Order Comment: Reaso n for Exam Chronic kidney disease, stage 3 unspecified;Kade hy kid w cr Performed By: #### P T, PTT, BNP, CBC #### [address] Calcium [Mass/Vol] 9.7 mg/dL Normal 8.6-10.3 [facility] Comment on above: Order Comment: Reaso n for Exam Chronic kidney disease, stage 3 unspecified;Kade hy kid w cr Performed By: #### P T, PTT, BNP, CBC #### [facility] [address] [place] [address] [place] Chloride [Moles/Vol] 103 mmol/L Normal 98-107 [facility] Comment on above: Order Comment: Reaso n for Exam Chronic kidney disease, stage 3 unspecified;Kade hy kid w cr Performed By: #### P T, PTT, BNP, CBC #### [facility] [address] [place] [address] [place] CO2 [Moles/Vol] 31.8 mmol/L High 21.0-31.0 [facility] Comment on above: Order Comment: Reaso n for Exam Chronic kidney disease, stage 3 unspecified;Kade hy kid w cr Performed By: #### P T, PTT, BNP, CBC #### [address] Creatinine [Mass/Vol] 2.09 mg/dL High 0.70-1.30 [facility] Comment on above: Order Comment: Reaso n for Exam Chronic kidney disease, stage 3 unspecified;Kade hy kid w cr Performed By: #### P T, PTT, BNP, CBC #### [facility] [address] Estimated GFR 33.016 mL/Min Normal [facility] Comment on above: Order Comment: Reaso n for Exam Chronic kidney disease, stage 3 unspecified;Kade hy kid w cr Performed By: #### P T, PTT, BNP, CBC #### [facility] [address] Glucose [Mass/Vol] 91 mg/dL Normal 70-100 [facility] Comment on above: Order Comment: Reaso n for Exam Chronic kidney disease, stage 3 unspecified;Kade hy kid w cr Result Comment: [facility] Glucose Reference Range is dependent on time and content of last meal. Glucose of more than 200 mg/dL in a nonstressed, ambulatory subject supports the diagnosis of Diabetes Mellitus. ADA recommended reference range Performed By: #### P T, PTT, BNP, CBC #### [address] Phosphate [Mass/Vol] 3.4 mg/dL Normal 2.5-4.5 [facility] Comment on above: Order Comment: Reaso n for Exam Chronic kidney disease, stage 3 unspecified;Kade hy kid w cr Performed By: #### P T, PTT, BNP, CBC #### [place] [address] [place] Potassium [Moles/Vol] 3.9 mmol/L Normal 3.5-5.1 [facility] Comment on above: Order Comment: Reaso n for Exam Chronic kidney disease, stage 3 unspecified;Kade hy kid w cr Performed By: #### P T, PTT, BNP, CBC #### [facility] [address] [place] [id number] [place] Sodium [Moles/Vol] 139 mmol/L Normal 136-145 [facility] Comment on above: Order Comment: Reaso n for Exam Chronic kidney disease, stage 3 unspecified;Kade hy kid w cr Performed By: #### P T, PTT, BNP, CBC #### [address] [place] [address] [place] Urea nitrogen [Mass/Vol] 22 mg/dL Normal 7-25 [facility] Comment on above: Order Comment: Reaso n for Exam Chronic kidney disease, stage 3 unspecified;Kade hy kid w cr Performed By: #### P T, PTT, BNP, CBC #### [facility] [address] Serum or plasma anion gap de terminationOrdered By: Magy Cummings on 09-03-2024 Anion gap [Moles/Vol] Serum or plasma an ion gap determination 6.0-15.0 [facility] Serum or plasma iron binding capacity measurement (mass/volume)Ordered By: Magy Cummings on 09-03-2024 Iron binding capacity [Mass/Vol] Iron binding capacity [Mass/volume] in Serum or Plasma 255-450 [facility] Serum or plasma iron saturat ion measurement (mass fraction)Ordered By: Magy Cummings on 09-03-2024 Iron saturation [Mass fraction] Iron saturation [Mass Fraction] in Serum or Plasma Low 20-50 [facility] Sodium [Moles/volume] in Ser um or PlasmaOrdered By: Magy Cummings on 09-03-2024 Sodium [Moles/Vol] Sodium [Moles/volume ] in Serum or Plasma 136-145 [facility] Specific gravity of Urine by RefractometryOrdered By: Magy Cummings on 09-03-2024 Specific gravity Refractometry (U) [Rel density] Specific gravity of Urine by Refractometry 1.001-1.03 0 [facility] Comment on above: Rechecked by refract ometer Transferrin [Mass/volume] in Serum or PlasmaOrdered By: Magy Cummings on 09-03-2024 Transferrin [Mass/Vol] Transferrin [Mass /volume] in Serum or Plasma 203-362 [facility] Urate [Mass/volume] in Serum or PlasmaOrdered By: Magy Emiliano on 09-03-2024 Urate [Mass/Vol] Urate [Mass/volume] in Serum or Plasma 4.4-7.6 [facility] Urea nitrogen [Mass/volume] in Serum or PlasmaOrdered By: Magy Cummings on 09-03-2024 Urea nitrogen [Mass/Vol] Urea nitrogen [Mass/volume] in Serum or Plasma 7-25 [facility] Uric Acidon 09-03-2024 Urate [Mass/Vol] 7.0 mg/dL Normal 4.4-7.6 [facility] Comment on above: Order Comment: Reaso n for Exam Chronic kidney disease, stage 3 unspecified;Kade hy kid w cr Reason for Exam: Chronic kidney disease, stage 3 unspecified;Kade hy kid w cr Performed By: #### P T, PTT, BNP, CBC #### [facility] [address] [place] [id number] [facility] Urine protein/creatinine rat ioOrdered By: Magy Cummings on 09-03-2024 Protein/Creatinine (U) [Ratio] Urine protein/creatinine ratio High 0-200 [facility] Urobilinogen Test strip (U) [Mass/Vol]Ordered By: Magy Cummings on 09-03-2024 Urobilinogen (U) [Mass/Vol] Urobilinogen [Mass/volume] in Urine by Test strip Normal [facility] Vitamin D 25 Hydroxy Totalon 09-03-2024 Vitamin D 25 Hydroxy Total 29.1 ng/mL Low 30-100 [facility] Comment on above: Order [...] practice guideline. JCEM. 2010; 96(7):1911-30. PERFORMED BY: [place] [id number] PATHOLOGIST J[employer] ROOM CUSTODIAN GRANT SCHNEIDER M.D. Performed By: #### P T, PTT, BNP, CBC #### [facility] [address] [place], [place] [id number] [facility] Vitamin D+Metabolites [Mass/ volume] in Serum or PlasmaOrdered By: Magy Cummings on 09-03-2024 Vitamin D+Metabolites [Mass/Vol] Vitamin D+Metabolites [Mass/volume] in Serum or Plasma Low 30-100 [facility] Comment on above: VITAMIN D STATUS 25( [place])VITAMIN D RANGE (ng/mL) Deficient <20 Insufficient 20 to <30Sufficient 30 to 100Reference: Sarah MF,Jamal FITZGERALD, Chuckie MENDOZA, et al. Evaluation,treatment, and prevention of vitamin D deficiency; an Endocrine Society clinical practice guideline. JCEM. 2010; 96(7):1911-30. WBC Auto (Bld) [#/Vol]Ordere d By: Magy Cummings on 09-03-2024 WBC (Bld) [#/Vol] Leukocytes [#/volume ] in Blood by Automated count 4.1-10.5 [facility] pH Test strip (U)Ordered By: Magy Cummings on 09-03-2024 pH (U) pH of Urine by Test strip 5.0-9.0 [facility] Erythrocyte distribution wid th Auto (RBC) [Ratio]on 06-03-2024 Erythrocyte distribution width (RBC) [Ratio] 14.5 % 11.0-15.0 [facility] Estimated glomerular filtrat ion rate (GFR) non- Americanon 06-03-2024 GFR/1.73 sq M.predicted among non-blacks MDRD (S/P/Bld) [Vol rate/Area] 33 mL/min/{1.73_m2} Low >=60 [facility] Glucose mean value [Mass/vol ume] in Blood Estimated from glycated hemoglobinon 06-03-2024 Average glucose Estimated from glycated hemoglobin (Bld) [Mass/Vol] 94 mg/dL [facility] Hematocrit Auto (Bld) [Volum e fraction]on 06-03-2024 Hematocrit (Bld) [Volume fraction] 33.5 % Low 42.0-54.0 [facility] Hemoglobin [Mass/volume] in Bloodon 06-03-2024 Hemoglobin (Bld) [Mass/Vol] 10.6 g/dL Low 14.0-18.0 [facility] Laboratory - Chemistry and C hemistry - challengeon 06-03-2024 Albumin [Mass/Vol] 3.0 g/dL Low 3.4-5.0 [facility] Calcium [Mass/Vol] 9.9 mg/dL 8.5-10.1 [facility] Chloride [Moles/Vol] 101 mmol/L 98-107 [facility] CO2 [Moles/Vol] 31.9 mmol/L 21.0-32.0 [facility] Creatinine [Mass/Vol] 2.00 mg/dL High 0.70-1.30 [facility] GFR/1.73 sq M.predicted MDRD (S/P/Bld) [Vol rate/Area] 40 mL/min/{1.73_m2} Low >=60 [facility] Glucose [Mass/Vol] 106 mg/dL 74-106 [facility] Magnesium [Mass/Vol] 1.8 mg/dL 1.8-2.4 [facility] Potassium [Moles/Vol] 4.1 mmol/L 3.5-5.1 [facility] Sodium [Moles/Vol] 137 mmol/L 136-145 [facility] Urate [Mass/Vol] 7.1 mg/dL 3.5-7.2 [facility] Urea nitrogen [Mass/Vol] 20.0 mg/dL High 7.0-18.0 [facility] Urea nitrogen/Creatinine [Mass ratio] 10.0 mg/mg [facility] Bilirubin Ql (U) Negative NEGATIVE [facility] Glucose (U) [Mass/Vol] Negative NEGATIVE [facility] Ketones Ql (U) Negative NEGATIVE [facility] pH (U) 6.0 [pH] 5.0-9.0 [facility] Specific gravity (U) [Rel density] 1.025 1.005-1.02 5 [facility] Urobilinogen Qn (U) 1.0 {Beatriz'U}/dL 0.2-1.0 [facility] Laboratory - Hematology and Cell countson 06-03-2024 HbA1c (Bld) [Mass fraction] 4.9 % 4.5-6.2 [facility] Comment on above: ADA RECOMMENDED LIMI T 4.0 - 6.0ADA THERAPEUTIC TARGET < 7.0ACTION SUGGESTED> 7.0 Laboratory - Specimen inform ationon 06-03-2024 Appearance (U) CLEAR CLEAR [facility] Color (U) YELLOW YELLOW [facility] Laboratory - Urinalysison Hyaline casts LM Ql (Urine sed) FEW [facility] Leukocyte esterase Test strip Ql (U) Negative NEGATIVE [facility] Mucus Ql (Urine sed) SMALL Abnormal NONE SEEN [facility] Nitrite Ql (U) Negative NEGATIVE [facility] Protein (U) [Mass/Vol] 385.3 mg/dL High <=11.9 [facility] Protein Ql (U) >=300 mg/dL Abnormal NEG/TRACE [facility] Leukocytes [#/volume] correc anna for nucleated erythrocytes in Blood by Automated counon 06-03-2024 WBC corrected for nucl RBC Auto (Bld) [#/Vol] 5.9 10 3/uL 4.0-11.0 [facility] MCH Auto (RBC) [Entitic mass ]on 06-03-2024 MCH (RBC) [Entitic mass] 26.4 pg 25.9-34.0 [facility] MCHC Auto (RBC) [Mass/Vol]on 06-03-2024 MCHC (RBC) [Mass/Vol] 31.6 g/dL 29.9-35.2 [facility] MCV Auto (RBC) [Entitic vol] on 06-03-2024 MCV (RBC) [Entitic vol] 83.3 fL 80.0-94.0 [facility] No Panel Informationon 06-03 25-Hydroxy Vitamin D Total 19.9 ng/mL [facility] Comment on above: <20 ng/mL Vit D defi cient20-<30 ng/mL Vit D [id number] ng/mL Vit D sufficient>100 ng/mL Potential Toxicity Parathyroid Hormone (Intact) 53 pg/mL 15-65 [facility] Comment on above: Performed at: [address] [id number] Director: Contreras Pollard PhD, Phone: [phone] Phosphorus Level 3.1 mg/dL 2.6-4.7 [facility] Urine Bacteria NONE SEEN #/HPF NONE SEEN [facility] Urine Occult Blood Negative NEGATIVE [facility] Urine Other Casts SEEN #/LPF Abnormal NONE SEEN [facility] Urine Other Crystals None Seen #/HPF None Seen [facility] Urine Random Creatinine 145.44 mg/dL 20.00-300. 00 [facility] Urine RBC 0-2 #/HPF 0-2 [facility] Urine Squamous Epithelial Cells RARE #/LPF NONE/RARE [facility] Urine WBC 2-5 #/HPF Abnormal NONE SEEN [facility] Platelet mean volume Auto (B ld) [Entitic vol]on 06-03-2024 Platelet mean volume (Bld) [Entitic vol] 9.0 fL Low 9.5-13.5 [facility] Platelets Auto (Bld) [#/Vol] on 06-03-2024 Platelets (Bld) [#/Vol] 222 10 3/uL 150-450 [facility] RBC Auto (Bld) [#/Vol]on RBC (Bld) [#/Vol] 4.02 10 6/uL Low 4.70-6.10 [facility] Serum or plasma anion gap de terminationon 06-03-2024 Anion gap [Moles/Vol] 8.2 mmol/L [facility] Urine protein/creatinine rat ioon 06-03-2024 Protein/Creatinine (U) [Ratio] 2.65 [facility] Albumin [Mass/volume] in Ser um or Plasma by Bromocresol green (BCG) dye binding methoOrdered By: Magy Cummings on 03-06-2024 Albumin BCG dye [Mass/Vol] 3.5 g/dL 3.5-5.7 [facility] Calcium [Mass/volume] in Ser um or PlasmaOrdered By: Magy Cummings on 03-06-2024 Calcium [Mass/Vol] 9.8 mg/dL Normal 8.6-10.3 [facility] Comment on above: Performed By: #### P T, PTT, BNP, CBC #### [facility] [address] [place] [address] [place] Carbon dioxide, total [Moles /volume] in Serum or PlasmaOrdered By: Magy Cummings on 03-06-2024 CO2 [Moles/Vol] 31.1 mmol/L High 21.0-31.0 [facility] Comment on above: Performed By: #### P T, PTT, BNP, CBC #### [facility] [address] [place] [address] [place] Chloride [Moles/volume] in S zoey or PlasmaOrdered By: Magy Cummings on 03-06-2024 Chloride [Moles/Vol] 104 mmol/L Normal 98-107 [facility] Comment on above: Performed By: #### P T, PTT, BNP, CBC #### [facility] [address] Creatinine [Mass/volume] in Serum or PlasmaOrdered By: Magy Cummings on 03-06-2024 Creatinine [Mass/Vol] 1.81 mg/dL High 0.70-1.30 [facility] Comment on above: Performed By: #### P T, PTT, BNP, CBC #### [facility] [address] [place] [address] [place] Glucose [Mass/volume] in Ser um or PlasmaOrdered By: Magy Cummings on 03-06-2024 Glucose [Mass/Vol] 101 mg/dL High 70-100 [facility] Comment on above: ADA recommended refe rence rangeRandom Glucose Reference Range is dependent on time and content of last meal. Glucose of more than 200 mg/dL in a nonstressed, ambulatory subject supports the diagnosis of Diabetes Mellitus. Result Comment: [place] [facility] Glucose Reference Range is dependent on time and content of last meal. Glucose of more than 200 mg/dL in a nonstressed, ambulatory subject supports the diagnosis of Diabetes Mellitus. ADA recommended reference range Performed By: #### P T, PTT, BNP, CBC #### [facility] [address] [place] [address] No Panel InformationOrdered By: Magy Cummings on 03-06-2024 Estimated GFR (CKD-EPI) 39.237 mL/Min [facility] Creatinine Clearance (Chem N/A [facility] Phosphate [Mass/volume] in S zoey or PlasmaOrdered By: Magy Cummings on 03-06-2024 Phosphate [Mass/Vol] 2.8 mg/dL Normal 2.5-4.5 [facility] Comment on above: Performed By: #### P T, PTT, BNP, CBC #### [address] Potassium [Moles/volume] in Serum or PlasmaOrdered By: Magy Cummings on 03-06-2024 Potassium [Moles/Vol] 3.5 mmol/L Normal 3.5-5.1 [facility] Comment on above: Performed By: #### P T, PTT, BNP, CBC #### [address] Renal Function Panelon 03-06 Albumin [Mass/Vol] 3.5 g/dL Normal 3.5-5.7 [facility] Comment on above: Result Comment: PERF ORMED BY: [place] [address] PATHOLOGIST [employer] RO[employer] CUSTODIAN SALINA BLOCK M.D. Performed By: #### P T, PTT, BNP, CBC #### [address] GFR/1.73 sq M.predicted MDRD (S/P/Bld) [Vol rate/Area] 39.237 mL/min/{1.73_m2} Normal [facility] Comment on above: Performed By: #### P T, PTT, BNP, CBC #### [address] Serum or plasma anion gap de terminationOrdered By: Magy Cummings on 03-06-2024 Anion gap [Moles/Vol] 9.4 mmol/L Normal 6.0-15.0 [facility] Comment on above: Performed By: #### P T, PTT, BNP, CBC #### [address] [place] [address] [place] Sodium [Moles/volume] in Ser um or PlasmaOrdered By: Magy Cummings on 03-06-2024 Sodium [Moles/Vol] 141 mmol/L Normal 136-145 [facility] Comment on above: Performed By: #### P T, PTT, BNP, CBC #### [facility] [address] Urea nitrogen [Mass/volume] in Serum or PlasmaOrdered By: Magy Cummings on 03-06-2024 Urea nitrogen [Mass/Vol] 25 mg/dL Normal 7-25 [facility] Comment on above: Performed By: #### P T, PTT, BNP, CBC #### [facility] [address] [place] [address] Automated erythrocytes count in urine sediment (number/area)Ordered By: Magy Cummings on 02-15-2024 RBC Auto (Urine sed) [#/Area] 3-4 [HPF] 0-4 [facility] Automated leukocytes count i n urine sediment (number/area)Ordered By: Magy Cummings on 02-15-2024 WBC Auto (Urine sed) [#/Area] 3-4 [HPF] 0-4 [facility] Automated urine color determ inationOrdered By: Magy Cummings on 02-15-2024 Color (U) Yellow Normal Yellow [facility] Comment on above: Order Comment: Name Collection Type:: Voided Performed By: #### P T, PTT, BNP, CBC #### [facility] [address] [place] [address] Automated urine hyaline cast s count (number/volume)Ordered By: Magy Cummings on 02-15-2024 Hyaline casts Auto (U) [#/Vol] 10-19 [LPF] 0-1 [facility] Bilirubin Test strip Ql (U)O rdered By: Magy Cummings on 02-15-2024 Bilirubin Ql (U) Negative Negative [facility] Casts typing in urine sedime nt by light microscopyOrdered By: Magy Cummings on 02-15-2024 Casts LM Nom (Urine sed) None seen [LPF] None Seen [facility] Creatinine [Mass/volume] in UrineOrdered By: Magy Cummings on 02-15-2024 Creatinine (U) [Mass/Vol] 157.0 mg/dL [facility] Comment on above: No reference range e stablished Dipstick and Microscopicon 0 02-15-2024 Appearance (U) Clear Normal Clear [facility] Comment on above: Order Comment: Name Collection Type:: Voided Performed By: #### P T, PTT, BNP, CBC #### [facility] [address] Bacteria,Urine None Seen Normal None Seen [facility] Comment on above: Order Comment: Name Collection Type:: Voided Performed By: #### P T, PTT, BNP, CBC #### [place] [address] [place] Bilirubin,Urine Negative Normal Negative [facility] Comment on above: Order Comment: Name Collection Type:: Voided Performed By: #### P T, PTT, BNP, CBC #### [facility] [address] [place] [address] Glucose Ql (U) 250 mg/dL High Normal [facility] Comment on above: Order Comment: Name Collection Type:: Voided Performed By: #### P T, PTT, BNP, CBC #### [facility] [address] [place] [address] [place] Hyaline Casts,Urine 10-19 High 0-1 [facility] Comment on above: Order Comment: Name Collection Type:: Voided Performed By: #### P T, PTT, BNP, CBC #### [facility] [address] [place] [address] [place] Ketones Ql (U) Negative Normal Negative [facility] Comment on above: Order Comment: Name Collection Type:: Voided Performed By: #### P T, PTT, BNP, CBC #### [facility] [address] Leukocyte esterase Test strip Ql (U) Negative Normal Negative [facility] Comment on above: Order Comment: Name Collection Type:: Voided Performed By: #### P T, PTT, BNP, CBC #### [place] [address] [place] Nitrite,Urine Negative Normal Negative [facility] Comment on above: Order Comment: Name Collection Type:: Voided Performed By: #### P T, PTT, BNP, CBC #### [address] Occult Blood,Urine Trace High Negative [facility] Comment on above: Order Comment: Name Collection Type:: Voided Performed By: #### P T, PTT, BNP, CBC #### [address] Other Casts,Urine None Seen Normal None Seen [facility] Comment on above: Order Comment: Name Collection Type:: Voided Result Comment: PERF ORMED BY: [place] [address] PATHOLOGIST JOCKEY ROOM CUSTODIAN SALINA BLOCK M.D. Performed By: #### P T, PTT, BNP, CBC #### [address] Protein,Urine >=1000 High Negative [facility] Comment on above: Order Comment: Name Collection Type:: Voided Performed By: #### P T, PTT, BNP, CBC #### [address] RBC,Urine 3-4 Normal 0-4 [facility] Comment on above: Order Comment: Name Collection Type:: Voided Performed By: #### P T, PTT, BNP, CBC #### [address] Specificy [place],Urine 1.026 Normal 1.001-1.03 0 [facility] Comment on above: Order Comment: Name Collection Type:: Voided Performed By: #### P T, PTT, BNP, CBC #### [address] Squamous Epithelial Cell,Urine 3-4 High 0-2 [facility] Comment on above: Order Comment: Name Collection Type:: Voided Performed By: #### P T, PTT, BNP, CBC #### [facility] [address] Urobilinogen,Urine Normal Normal Normal [facility] Comment on above: Order Comment: Name Collection Type:: Voided Performed By: #### P T, PTT, BNP, CBC #### [facility] [address] WBC,Urine 3-4 Normal 0-4 [facility] Comment on above: Order Comment: Name Collection Type:: Voided Performed By: #### P T, PTT, BNP, CBC #### [address] Ketones Auto test strip (U) [Mass/Vol]Ordered By: Magy Cummings on 02-15-2024 Ketones (U) [Mass/Vol] Negative Negative [facility] Nitrite Test strip Ql (U)Ord ered By: Magy Cummings on 02-15-2024 Nitrite Ql (U) Negative Negative [facility] Protein Auto test strip (U) [Mass/Vol]Ordered By: Magy Giordanodir on 02-15-2024 Protein (U) [Mass/Vol] mg/dL Negative [facility] Protein Creat Ratio Ur Rando mon 02-15-2024 Creatinine, Urine (Random) 157.0 mg/dL Normal [facility] Comment on above: Result Comment: No r eference range established Performed By: #### P T, PTT, BNP, CBC #### [address] Protein, Urine (Random) > 600 High 0-9 [facility] Comment on above: Performed By: #### P T, PTT, BNP, CBC #### [address] Urine Protein/Creatinine Ratio Not performed Normal 0-200 [facility] Comment on above: Result Comment: PERF ORMED BY: [place] [address] PATHOLOGIST JOCKEY ROOM CUSTODIAN SALINA BLOCK M.D. Performed By: #### P T, PTT, BNP, CBC #### [facility] [address] [place] [address] [place] Protein [Mass/volume] in Uri neOrdered By: Magy Cummings on 02-15-2024 Protein (U) [Mass/Vol] mg/dL 0-9 [facility] Specific gravity Auto test s trip (U) [Rel density]Ordered By: Magy Cummings on 02-15-2024 Specific gravity (U) [Rel density] 1.026 1.001-1.03 0 [facility] Squamous epithelial cells de tection in urine sediment by light microscopyOrdered By: Magy Cummings on 02-15-2024 Epithelial cells.squamous LM Ql (Urine sed) 3-4 [HPF] 0-2 [facility] Urine bacteria detection by automated methodOrdered By: Magy Cummings on 02-15-2024 Bacteria Auto Ql (U) None seen [HPF] None Seen [facility] Urine clarity by refractomet ry automatedOrdered By: Magy Cummings on 02-15-2024 Clarity Refractometry automated (U) Clear Clear [facility] Urine glucose measurement by automated test strip (mass/volume)Ordered By: Magy Cummings on 02-15-2024 Glucose Auto test strip (U) [Mass/Vol] 250 mg/dL Normal [facility] Urine hemoglobin detection b y automated test stripOrdered By: Magy Cummings on 02-15-2024 Hemoglobin Auto test strip Ql (U) Trace Negative [facility] Urine leukocyte esterase det ection by automated test stripOrdered By: Magy Cummings on 02-15-2024 Leukocyte esterase Auto test strip Ql (U) Negative Negative [facility] Urine pH measurement by auto mated test stripOrdered By: Magy Cummings on 02-15-2024 pH (U) 6.0 [pH] Normal 5.0-9.0 [facility] Comment on above: Order Comment: Name Collection Type:: Voided Performed By: #### P T, PTT, BNP, CBC #### [facility] [address] [place] [id number] [place] Urine protein/creatinine rat ioOrdered By: Magy Cummings on 02-15-2024 Protein/Creatinine (U) [Ratio] TNP [facility] Comment on above: Test not performed Urobilinogen Auto test strip (U) [Mass/Vol]Ordered By: Magy Cummings on 02-15-2024 Urobilinogen (U) [Mass/Vol] Normal mg/dL Normal [facility] Albumin [Mass/volume] in Ser um or Plasma by Bromocresol green (BCG) dye binding methoOrdered By: Magy Cummings on 02-14-2024 Albumin BCG dye [Mass/Vol] 3.6 g/dL 3.5-5.7 [facility] Calcium [Mass/volume] in Ser um or PlasmaOrdered By: Magy Cummings on 02-14-2024 Calcium [Mass/Vol] 9.3 mg/dL Normal 8.6-10.3 [facility] Comment on above: Performed By: #### P T, PTT, BNP, CBC #### [facility] [address] Carbon dioxide, total [Moles /volume] in Serum or PlasmaOrdered By: Magy Cummings on 02-14-2024 CO2 [Moles/Vol] 30.7 mmol/L Normal 21.0-31.0 [facility] Comment on above: Performed By: #### P T, PTT, BNP, CBC #### [facility] [address] [place] [address] [place] Chloride [Moles/volume] in S zoey or PlasmaOrdered By: Magy Cummings on 02-14-2024 Chloride [Moles/Vol] 102 mmol/L Normal 98-107 [facility] Comment on above: Performed By: #### P T, PTT, BNP, CBC #### [facility] [address] [place] [address] [place] Creatinine [Mass/volume] in Serum or PlasmaOrdered By: Magy Cummings on 02-14-2024 Creatinine [Mass/Vol] 1.76 mg/dL High 0.70-1.30 [facility] Comment on above: Performed By: #### P T, PTT, BNP, CBC #### [facility] [address] Glucose [Mass/volume] in Ser um or PlasmaOrdered By: Magy Cummings on 02-14-2024 Glucose [Mass/Vol] 113 mg/dL High 70-100 [facility] Comment on above: ADA recommended refe rence rangeRandom Glucose Reference Range is dependent on time and content of last meal. Glucose of more than 200 mg/dL in a nonstressed, ambulatory subject supports the diagnosis of Diabetes Mellitus. Result Comment: [place] om Glucose Reference Range is dependent on time and content of last meal. Glucose of more than 200 mg/dL in a nonstressed, ambulatory subject supports the diagnosis of Diabetes Mellitus. ADA recommended reference range Performed By: #### P T, PTT, BNP, CBC #### [facility] [address] No Panel InformationOrdered By: Magy Cummings on 02-14-2024 Estimated GFR (CKD-EPI) 40.578 mL/Min [facility] Creatinine Clearance (Chem N/A [facility] Phosphate [Mass/volume] in S zoey or PlasmaOrdered By: Magy Cummings on 02-14-2024 Phosphate [Mass/Vol] 3.1 mg/dL Normal 2.5-4.5 [facility] Comment on above: Performed By: #### P T, PTT, BNP, CBC #### [address] Potassium [Moles/volume] in Serum or PlasmaOrdered By: Magy Cummings on 02-14-2024 Potassium [Moles/Vol] 3.9 mmol/L Normal 3.5-5.1 [facility] Comment on above: Performed By: #### P T, PTT, BNP, CBC #### [facility] [address] Renal Function Panelon 02-13 Albumin [Mass/Vol] 3.6 g/dL Normal 3.5-5.7 [facility] Comment on above: Result Comment: PERF ORMED BY: [facility] [address] [place] [id number] PATHOLOGIST JOCKEY ROOM CUSTODIAN SALINA BLOCK M.D. Performed By: #### P T, PTT, BNP, CBC #### [place] [address] [place] GFR/1.73 sq M.predicted MDRD (S/P/Bld) [Vol rate/Area] 40.578 mL/min/{1.73_m2} Normal [facility] Comment on above: Performed By: #### P T, PTT, BNP, CBC #### [address] Serum or plasma anion gap de terminationOrdered By: Magy Emiliano on 02-14-2024 Anion gap [Moles/Vol] 12.2 mmol/L Normal 6.0-15.0 [facility] Comment on above: Performed By: #### P T, PTT, BNP, CBC #### [place] [address] [place] Sodium [Moles/volume] in Ser um or PlasmaOrdered By: Magy Emiliano on 02-14-2024 Sodium [Moles/Vol] 141 mmol/L Normal 136-145 [facility] Comment on above: Performed By: #### P T, PTT, BNP, CBC #### [place] [address] [place] Urea nitrogen [Mass/volume] in Serum or PlasmaOrdered By: Magy Emiliano on 02-14-2024 Urea nitrogen [Mass/Vol] 16 mg/dL Normal 7-25 [facility] Comment on above: Performed By: #### P T, PTT, BNP, CBC #### [place] [address] [place] Albumin [Mass/volume] in Ser um or PlasmaOrdered By: Magy Emiliano on 01-26-2024 Albumin [Mass/Vol] 3.5 g/dL Normal 2.9-4.4 [facility] Comment on above: Performed By: #### S PE W INTERPRET, GARCIA SERUM, KAPPA #### [facility] , #### RENAL #### [facility] [address] [place] [address] [place] Albumin [Mass/volume] in Ser um or Plasma by Bromocresol green (BCG) dye binding methoOrdered By: Magy Emiliano on 01-26-2024 Albumin BCG dye [Mass/Vol] 3.6 g/dL 3.5-5.7 [facility] Calcium [Mass/volume] in Ser um or PlasmaOrdered By: Magy Emiliano on 01-26-2024 Calcium [Mass/Vol] 9.5 mg/dL Normal 8.6-10.3 [facility] Comment on above: Performed By: #### S PE W INTERPRET, GARCIA SERUM, KAPPA #### [facility] , #### RENAL #### [place] [address] [place] Carbon dioxide, total [Moles /volume] in Serum or PlasmaOrdered By: Magy Emiliano on 01-26-2024 CO2 [Moles/Vol] 31.8 mmol/L High 21.0-31.0 [facility] Comment on above: Performed By: #### S PE W INTERPRET, GARCIA SERUM, KAPPA #### [facility] , #### RENAL #### [place] [address] [place] Chloride [Moles/volume] in S zoey or PlasmaOrdered By: Magy Emiliano on 01-26-2024 Chloride [Moles/Vol] 100 mmol/L Normal 98-107 [facility] Comment on above: Performed By: #### S PE W INTERPRET, GARCIA SERUM, KAPPA #### [facility] , #### RENAL #### [facility] [address] [place] [address] [place] Creatinine [Mass/volume] in Serum or PlasmaOrdered By: Magy Emiliano on 01-26-2024 Creatinine [Mass/Vol] 1.79 mg/dL High 0.70-1.30 [facility] Comment on above: Performed By: #### S PE W INTERPRET, GARCIA SERUM, KAPPA #### [facility] , #### RENAL #### [place] [address] [place] Free K+L LT Chains, Qn, Son 01-26-2024 Free [place] Light Chains, S 65.2 mg/L High 3.3-19.4 [facility] Comment on above: Performed By: #### N T-PROBNP #### [facility] , Free [place] Light Chains, S 37.0 mg/L High 5.7-26.3 [facility] Comment on above: Performed By: #### N T-PROBNP #### [facility] , [place]/Lambda Ratio, S 1.76 High 0.26-1.65 [facility] Comment on above: Result Comment: Perf ormed at: - [facility] [address] [id number] Gas Inspector: Contreras Pollard PhD, Phone: [phone] PERFORMED BY: [place] [address] PATHOLOGIST JOCKEY ROOM CUSTODIAN SALINA BLOCK M.D. Performed By: #### N T-PROBNP #### [facility] , Glucose [Mass/volume] in Ser um or PlasmaOrdered By: Magy Cummings on 01-26-2024 Glucose [Mass/Vol] 97 mg/dL Normal 70-100 [facility] Comment on above: ADA recommended refe rence rangeRandom Glucose Reference Range is dependent on time and content of last meal. Glucose of more than 200 mg/dL in a nonstressed, ambulatory subject supports the diagnosis of Diabetes Mellitus. Result Comment: [place] om Glucose Reference Range is dependent on time and content of last meal. Glucose of more than 200 mg/dL in a nonstressed, ambulatory subject supports the diagnosis of Diabetes Mellitus. ADA recommended reference range Performed By: #### S PE W INTERPRET, GARCIA SERUM, KAPPA #### [facility] , #### RENAL #### [facility] [address] [place] [id number] [facility] IgA [Mass/volume] in Serum o r PlasmaOrdered By: Magy Emiliano on 01-26-2024 IgA [Mass/Vol] 146 mg/dL 61-437 [facility] IgG [Mass/volume] in Serum o r PlasmaOrdered By: Magy Emiliano on 01-26-2024 IgG [Mass/Vol] 1171 mg/dL 603-1613 [facility] IgM [Mass/volume] in Serum o r PlasmaOrdered By: Magy Emiliano on 01-26-2024 IgM [Mass/Vol] 190 mg/dL 15-143 [facility] Comment on above: Performed at: [facility] [address] [id number] Director: Contreras Pollard PhD, Phone: [phone] Immunofixation for UrineOrde red By: Magy Cummings on 01-26-2024 Interpretation Immunofixation (U) [Interp] See comment . [facility] Comment on above: No monoclonality det ected.Performed at: [facility] [address] [id number] Director: Contreras Pollard PhD, Phone: [phone] Immunofixation, (GARCIA), Urine on 01-26-2024 Immunofixation, (GARCIA), Urine Normal . [facility] Comment on above: Result Comment: No m onoclonality detected. Performed at: [facility] [address] [id number] Gas Inspector: Contreras Pollard PhD, Phone: [phone] PERFORMED BY: [place] [address] PATHOLOGIST JOCKEY ROOM CUSTODIAN SALINA BLOCK M.D. Performed By: #### P T, PTT, BNP, CBC #### [facility] [address] [place] [address] [place] Immunofixation,Serumon 01-25 Immunofixation, Serum Comment: Normal . [facility] Comment on above: Result Comment: Pres ence of monoclonal protein is unclear at this time. Suggest repeat in 3 to 6 months if clinically indicated. Performed By: #### N T-PROBNP #### [facility] , Immunoglobulin A, Serum 146 mg/dL Normal 61-437 [facility] Comment on above: Performed By: #### N T-PROBNP #### [facility] , Immunoglobulin G 1171 mg/dL Normal 603-1613 [facility] Comment on above: Performed By: #### N T-PROBNP #### [facility] , Immunoglobulin M, Serum 190 mg/dL High 15-143 [facility] Comment on above: Result Comment: Perf ormed at: [facility] [place] [address] [place], [place] [id number] Gas Inspector: Cnotreras Pollard PhD, Phone: [phone] Performed By: #### N T-PROBNP #### [facility] , Immunoglobulin light chains. kappa.free [Mass/volume] in SerumOrdered By: Magy Emiliano on 01-26-2024 Immunoglobulin light chains.kappa.free (S) [Mass/Vol] 65.2 mg/L 3.3-19.4 [facility] Immunoglobulin light chains. kappa.free/Immunoglobulin light chains.lambda.free [MassOrdered By: Magy Emiliano on 01-26-2024 Immunoglobulin light chains.kappa.free/Immu noglobulin light chains.lambda.free (S) [Mass ratio] 1.76 0.26-1.65 [facility] Comment on above: Performed at: [id number] [place], [place] [id number] Director: Contreras Pollard PhD, Phone: [phone] Immunoglobulin light chains. lambda.free [Mass/volume] in Serum or PlasmaOrdered By: Magy Emiliano on 01-26-2024 Immunoglobulin light chains.lambda.free [Mass/Vol] 37.0 mg/L 5.7-26.3 [facility] No Panel InformationOrdered By: Magy Emiliano on 01-26-2024 Estimated GFR (CKD-EPI) 39.763 mL/Min [facility] Creatinine Clearance (Chem N/A [facility] Protein Electrophoresis Interpret See comment . [facility] Comment on above: The SPE pattern appe ars unremarkable. Evidence ofmonoclonal protein is not apparent.Performed at: - [facility] [id number] [place], [place] [id number] Director: Contreras Pollard PhD, Phone: [phone] Protein Electrophoresis M-Sabino Not observed g/dL Not Observed [facility] Protein Electrophoresis Note See comment . [facility] Comment on above: Protein electrophore sis scan will follow via computer,mail, or penal officer delivery. Serum Immunofixation Comment: . [facility] Comment on above: Presence of monoclon al protein is unclear at this time. Suggestrepeat in 3 to 6 months if clinically indicated. Phosphate [Mass/volume] in S zoey or PlasmaOrdered By: Magy Cummings on 01-26-2024 Phosphate [Mass/Vol] 2.9 mg/dL Normal 2.5-4.5 [facility] Comment on above: Performed By: #### S PE W INTERPRET, GARCIA SERUM, KAPPA #### [facility] , #### RENAL #### [facility] [address] [place] [address] Potassium [Moles/volume] in Serum or PlasmaOrdered By: Magy Cummings on 01-26-2024 Potassium [Moles/Vol] 3.1 mmol/L Low 3.5-5.1 [facility] Comment on above: Performed By: #### S PE W INTERPRET, GARCIA SERUM, KAPPA #### [facility] , #### RENAL #### [facility] [address] [place] [address] [place] Prot Electrophoresis w/Inter yolanda 01-26-2024 Ytuwq-5-Irflksny 0.3 g/dL Normal 0.0-0.4 [facility] Comment on above: Performed By: #### S PE W INTERPRET, GARCIA SERUM, KAPPA #### [facility] , #### RENAL #### [address] Iqkch-0-Juwisnre 0.7 g/dL Normal 0.4-1.0 [facility] Comment on above: Performed By: #### S PE W INTERPRET, GARCIA SERUM, KAPPA #### [facility] , #### RENAL #### [address] Beta Globulin 0.8 g/dL Normal 0.7-1.3 [facility] Comment on above: Performed By: #### S PE W INTERPRET, GARCIA SERUM, KAPPA #### [facility] , #### RENAL #### [address] Gamma Globulin 1.1 g/dL Normal 0.4-1.8 [facility] Comment on above: Performed By: #### S PE W INTERPRET, GARCIA SERUM, KAPPA #### [facility] , #### RENAL #### [address] M-Sabino Not Observed Normal Not Observed [facility] Comment on above: Performed By: #### S PE W INTERPRET, GARCIA SERUM, KAPPA #### [facility] , #### RENAL #### [address] SPE-Interpretation Normal . [facility] Comment on above: Result Comment: The SPE pattern appears unremarkable. Evidence of monoclonal protein is not apparent. Performed at: - [facility] [id number] Gas Inspector: Contreras Pollard PhD, Phone: [phone] Performed By: #### S PE W INTERPRET, GARCIA SERUM, KAPPA #### [facility] , #### RENAL #### [address] SPE-Note Normal . [facility] Comment on above: Result Comment: Prot ein electrophoresis scan will follow via computer, mail, or penal officer delivery. Performed By: #### S PE W INTERPRET, GARCIA SERUM, KAPPA #### [facility] , #### RENAL #### [facility] [address] [place] [address] Protein [Mass/volume] in Ser um or PlasmaOrdered By: Magy Emiliano on 01-26-2024 Protein [Mass/Vol] 6.4 g/dL Normal 6.0-8.5 [facility] Comment on above: Performed By: #### S PE W INTERPRET, GARCIA SERUM, KAPPA #### [facility] , #### RENAL #### [address] Renal Function Panelon 01-25 Albumin [Mass/Vol] 3.6 g/dL Normal 3.5-5.7 [facility] Comment on above: Result Comment: PERF ORMED BY: [place] [address] PATHOLOGIST JOCKEY ROOM CUSTODIAN SALINA BLOCK M.D. Performed By: #### S PE W INTERPRET, GARCIA SERUM, KAPPA #### [facility] , #### RENAL #### [address] GFR/1.73 sq M.predicted MDRD (S/P/Bld) [Vol rate/Area] 39.763 mL/min/{1.73_m2} Normal [facility] Comment on above: Performed By: #### S PE W INTERPRET, GARCIA SERUM, KAPPA #### [facility] , #### RENAL #### [facility] [address] [place] [address] Serum globulin measurement ( mass/volume)Ordered By: Magy Emiliano on 01-26-2024 Globulin (S) [Mass/Vol] 2.9 g/dL Normal 2.2-3.9 [facility] Comment on above: Performed By: #### S PE W INTERPRET, GARCIA SERUM, KAPPA #### [facility] , #### RENAL #### [facility] [address] [place] [address] Serum or plasma albumin/glob ulin mass ratioOrdered By: Magy Emiliano on 01-26-2024 Albumin/Globulin [Mass ratio] 1.2 {ratio} Normal 0.7-1.7 [facility] Comment on above: Performed By: #### S PE W INTERPRET, GARCIA SERUM, KAPPA #### [facility] , #### RENAL #### [facility] [address] [place] [address] Serum or plasma alpha 1 glob ulin measurement by electrophoresis (mass/volume)Ordered By: Magy Emiliano on 01-26-2024 Alpha 1 globulin Elph [Mass/Vol] 0.3 g/dL 0.0-0.4 [facility] Serum or plasma alpha 2 glob ulin measurement by electrophoresis (mass/volume)Ordered By: Magy Emiliano on 01-26-2024 Alpha 2 globulin Elph [Mass/Vol] 0.7 g/dL 0.4-1.0 [facility] Serum or plasma anion gap de terminationOrdered By: Magy Emiliano on 01-26-2024 Anion gap [Moles/Vol] 9.3 mmol/L Normal 6.0-15.0 [facility] Comment on above: Performed By: #### S PE W INTERPRET, GARCIA SERUM, KAPPA #### [facility] , #### RENAL #### [facility] [address] [place] [address] Serum or plasma beta globuli n measurement by electrophoresis (mass/volume)Ordered By: Magy Emiliano on 01-26-2024 Beta globulin Elph [Mass/Vol] 0.8 g/dL 0.7-1.3 [facility] Serum or plasma gamma globul in measurement by electrophoresis (mass/volume)Ordered By: Magy Emiliano on 01-26-2024 Gamma globulin Elph [Mass/Vol] 1.1 g/dL 0.4-1.8 [facility] Sodium [Moles/volume] in Ser um or PlasmaOrdered By: Magy Emiliano on 01-26-2024 Sodium [Moles/Vol] 138 mmol/L Normal 136-145 [facility] Comment on above: Performed By: #### S PE W INTERPRET, GARCIA SERUM, KAPPA #### [facility] , #### RENAL #### [facility] [address] [place] [address] [place] Urea nitrogen [Mass/volume] in Serum or PlasmaOrdered By: Magy Cummings on 01-26-2024 Urea nitrogen [Mass/Vol] 15 mg/dL Normal 7-25 [facility] Comment on above: Performed By: #### S PE W INTERPRET, GARCIA SERUM, KAPPA #### [facility] , #### RENAL #### [facility] [address] Laboratory - Chemistry and C hemistry - challengeon 01-17-2024 Bilirubin Ql (U) Negative [facility] Ketones Ql (U) Negative [facility] pH (U) 7.0 [pH] [facility] Specific gravity (U) [Rel density] 1.016 [facility] Laboratory - Specimen inform ationon 01-17-2024 Color (U) yellow [facility] Laboratory - Urinalysison Leukocyte esterase Test strip Ql (U) Negative [facility] Nitrite Ql (U) Negative [facility] Protein Ql (U) 3+ [facility] No Panel Informationon 01-16 Urine Glucose (UA) trace [facility] Office Visit (Cardiology)on 06-01-2022 Follow-up visit Diagnoses/Problems Assessed Peripheral vascular disease (443.9) (I73.9) Hyperlipemia (272.4) (E78.5) Essential hypertension, benign (401.1) (I10) Overweight with body mass index (BMI) of 29 to 29.9 in adult (278.02,V85.25) (E66.3,Z68.29) Orders Essential hypertension, benign IO EKG Electrocardiogram- 12 Lead; Status:Complete; Done: [id number] Hyperlipemia Renew: Atorvastatin Calcium 10 MG Oral Tablet; take 1 tablet by mouth once daily Overweight with body mass index (BMI) of 29 to 29.9 in adult Healthy Weight Tips; Status:Complete; Done: [id number] Some eating tips that can help you lose weight.; Status:Complete; Done: [id number] Patient Instructions Please bring all medicines, vitamins, and herbal supplements with you when you come to the office. Prescriptions will not be filled unless you are compliant with your follow up appointments or have a follow up appointment scheduled as per instruction of your physician. Refills should be requested at the time of your visit. [place] [address] [address], [address], [facility] from [facility] requested. Follow up in 4 months [...] place. He believes he might be in [place] or at [facility] also in [facility]. Because of this we will attempt [...] Signs Recorded: 01Jun2022 02:39PM Heart Rate83, Apical Ywjhykcd366, RUE, Sitting Gtjdajgby41, RUE, Sitting Height6 ft Uddypy110 lb BMI Ziryqoywhy51.97 kg/m2 BSA Calculated2.22 Tobacco Useb) No PHQ-2 [...] Eyes: no (more content not included)... Normal [facility] [facility] Tobacco Screening.on 022 Adult depression screening assessment No -[facility]-Sandu chiqui 250 DO Work Phone: Fall risk assessment a) No falls within the last year [facility]Sandu chiqui 250 DO Work Phone: Tobacco use status [facility] b) No [facility]-Sandu chiqui 250 DO Work Phone: [...] by Lakhwinder Chappell on 03/29/2022 1159 Normal [facility] PARATHYROID HORMONE- RELATED PEPTIDEon 10-05-2021 PTHrP (PTH-Related Peptide) <2.0 Normal [facility] Comment on above: Result Comment: This test was developed and its performance characteristics determined by [facility]. It has not been cleared or approved [...] laboratory. Performed By: #### P THP #### [facility] [address] [address] [address] Chhaya De La Vega RESPIRATORY PANEL PLUSon Adenovirus Not detected Normal NOT DETECTED [facility] Comment on above: Performed By: #### R SPLUS #### [facility] [address] [address] [address] Chhaya De La Vega B. Parapertusis Not detected Normal NOT DETECTED [facility] Comment on above: Performed By: #### R SPLUS #### [facility] [address] [place] [address] Dr. Chhaya Das Pertussis Not detected Normal NOT DETECTED [facility] Comment on above: Performed By: #### R SPLUS #### [facility] [address] [place] [address] Dr. Chhaya De La Vega Chlamydia Pneumoniae Not detected Normal NOT DETECTED [facility] Comment on above: Performed By: #### R SPLUS #### [facility] [address] [place] [address] Dr. Chhaya De La Vega Coronavirus 229E Not detected Normal NOT DETECTED [facility] Comment on above: Performed By: #### R SPLUS #### [facility] [address] [place] [address] Dr. Chhaya De La Vega Coronavirus HKU1 Not detected Normal NOT DETECTED [facility] Comment on above: Performed By: #### R SPLUS #### [facility] [address] [place] [address] Dr. Chhaya De La Vega Coronavirus NL63 Not detected Normal NOT DETECTED [facility] Comment on above: Performed By: #### R SPLUS #### [facility] [address] [place] [address] Dr. Chhaya De La Vega Coronavirus OC43 Not detected Normal NOT DETECTED [facility] Comment on above: Performed By: #### R SPLUS #### [facility] [address] [place] [address] Dr. Chhaya De La Vega Influenza A H1 2009 Not detected Normal NOT DETECTED [facility] Comment on above: Performed By: #### R SPLUS #### [facility] [address] [place] [address] Dr. Chhaya De La Vega Influenza A H3 Not detected Normal NOT DETECTED [facility] Comment on above: Performed By: #### R SPLUS #### [facility] [address] [place] [address] Dr. Chhaya De La Vega Influenza B Not detected Normal NOT DETECTED [facility] Comment on above: Performed By: #### R SPLUS #### [facility] [address] [place] [address] Dr. Chhaya De La Vega Metapneumovirus Not detected Normal NOT DETECTED [facility] Comment on above: Performed By: #### R SPLUS #### [facility] [address] [place] [address] Dr. Chhaya De La Vega Mycoplas. Pneumoniae Not detected Normal NOT DETECTED [facility] Comment on above: Performed By: #### R SPLUS #### [facility] [address] [place] [address] Dr. Chhaya De La Vega Parainfluenza 1 Not detected Normal NOT DETECTED [facility] Comment on above: Performed By: #### R SPLUS #### [facility] [address] [place] [address] Dr. Chhaya De La Vega Parainfluenza 2 Not detected Normal NOT DETECTED [facility] Comment on above: Performed By: #### R SPLUS #### [facility] [address] [place] [address] Dr. Chhaya De La Vega Parainfluenza 3 Not detected Normal NOT DETECTED [facility] Comment on above: Performed By: #### R SPLUS #### [facility] [address] [place] [address] Dr. Chhaya De La Vega Parainfluenza 4 Not detected Normal NOT DETECTED [facility] Comment on above: Performed By: #### R SPLUS #### [facility] [address] [place] [address] Dr. Chhaya De La Vega Rhino/Enterovirus Detected Abnormal NOT DETECTED [facility] Comment on above: Performed By: #### R SPLUS #### [facility] [address] [place] [address] Dr. Chhaya De La Vega RP2 Header 1 RESPIRATORY PANEL: VIRUSES Normal [facility] Comment on above: Performed By: #### R SPLUS #### [facility] [address] [place] [address] Dr. Chhaya De La Vega RP2 Header 2 RESPIRATORY PANEL: BACTERIA Normal [facility] Comment on above: Performed By: #### R SPLUS #### [facility] [address] [place] [address] Dr. Chhaya De La Vega RSV Not detected Normal NOT DETECTED [facility] Comment on above: Performed By: #### R SPLUS #### [facility] [address] [place] [address] Dr. Chhaya De La Vega SARS-CoV-2 (COVID-19) RNA MICHELLE+probe Ql (Unsp spec) Not detected Normal NOT DETECTED [facility] Comment on above: Performed By: #### R SPLUS #### [facility] [address] [place] [address] Dr. Chhaya De La Vega CALCIUM 24 HR URINEon 2020 CALC, 24 HR UR 318.0 mg/24 hr Critically high 100.0-30 0. 0 [facility] Comment on above: Performed By: #### C [id number] #### [facility] [address] [place] [address] Dr. Chhaya De La Vega UR CALCIUM 26.5 mg/dL Critically high 0.0-21.0 [facility] Comment on above: Performed By: #### C [id number] #### [facility] [address] [place] [address] Dr. Chhaya De La Vega UR TOT VOL 1200 ml/24 HR Normal [facility] Comment on above: Performed By: #### C [id number] #### [facility] [address] [place] [address] Dr. Chhaya De La Vega Performed By: #### C [id number] #### [facility] [address] [place] [address] Dr. Chhaya De La Vega CREA 24 HR URINEon CREA, 24 HR UR 1421.52 mg/24 hr Normal 1,000.00- 2 ,000.00 [facility] Comment on above: Performed By: #### C [id number] #### [facility] [address] [place] [address] Dr. Chhaya De La Vega URINE CREAT 118.46 mg/dL Normal 20.00-300. 00 [facility] Comment on above: Performed By: #### C [id number] #### [facility] [address] [place] [address] Dr. Chhaya De La Vega PARATHYROID HORMONE PLUS Dash n 09-29-2021 Calcium [Mass/Vol] 9.8 mg/dL Normal 8.6-10.2 [facility] Comment on above: Performed By: #### P THCA #### [facility] [address] [place] [address] Dr. Chhaya De La Vega Intact PTH Comment Normal [facility] Comment on above: Result Comment: Inte rpretation Intact PTH Calcium (pg/mL) (mg/dL) Normal 15 - 65 8.6 - 10.2 Primary Hyperparathyroidism >65 >10.2 Secondary Hyperparathyroidism >65 <10.2 Non-Parathyroid Hypercalcemia <65 >10.2 Hypoparathyroidism <15 < 8.6 Non-Parathyroid Hypocalcemia 15 - 65 < 8.6 . Performed By: #### P THCA #### [facility] [address] [place] [address] Dr. Chhaya De La Vega PTH, Intact 66 pg/mL Critically high 15-65 [facility] Comment on above: Performed By: #### P THCA #### [facility] [address] [place] [address] Dr. Chhaya De La Vega PROTEIN ELECTROPHERESISon Albumin [Mass/Vol] 3.5 g/dL Normal 2.9-4.4 [facility] Comment on above: Performed By: #### P RTELEC #### [facility] [address] [place] [address] Dr. Chhaya De La Vega Albumin/Globulin [Mass ratio] 0.9 {ratio} Normal 0.7-1.7 [facility] Comment on above: Performed By: #### P RTELEC #### [facility] [address] [place] [address] Dr. Chhaya De La Vega Etezw-7-Nalmipzw 0.3 g/dL Normal 0.0-0.4 [facility] Comment on above: Performed By: #### P RTELEC #### [facility] [address] [place] [address] Dr. Chhaya De La Vega Hzjle-4-Plibsmgo 0.9 g/dL Normal 0.4-1.0 [facility] Comment on above: Performed By: #### P RTELEC #### [facility] [address] [place] [address] Dr. Chhaya De La Vega Beta Globulin 0.9 g/dL Normal 0.7-1.3 [facility] Comment on above: Performed By: #### P RTELEC #### [facility] [address] [place] [address] Dr. Chhaya De La Vega Gamma Globulin 1.7 g/dL Normal 0.4-1.8 [facility] Comment on above: Performed By: #### P RTELEC #### [facility] [address] [place] [address] Dr. Chhaya De La Vega Globulin (S) [Mass/Vol] 3.9 g/dL Normal 2.2-3.9 [facility] Comment on above: Performed By: #### P RTELEC #### [facility] [address] [place] [address] Dr. Chhaya De La Vega M-Sabino Comment: Normal Not Observed [facility] Comment on above: Result Comment: SPE shows asymmetrical gamma. Performed By: #### P RTELEC #### [facility] [address] [place] [address] Dr. Chhaya De La Vega PDF . Normal [facility] Comment on above: Performed By: #### P RTELEC #### [facility] [address] [place] [address] Dr. Chhaya De La Vega Please note: Comment Normal [facility] Comment on above: Result Comment: Prot ein electrophoresis scan will follow via computer, mail, or penal officer delivery. Performed By: #### P RTELEC #### [facility] [address] [place] [address] Dr. Chhaya De La Vega Protein [Mass/Vol] 7.4 g/dL Normal 6.0-8.5 [facility] Comment on above: Performed By: #### P RTELEC #### [facility] [address] [place] [address] Dr. Chhaya De La Vega RENAL FUNCTION PANELon 09-27 Albumin [Mass/Vol] 3.5 g/dL Normal 3.5-5.0 [facility] Comment on above: Performed By: #### R ENAL #### [facility] [address] [place] [address] Dr. Chhaya De La Vega Calcium [Mass/Vol] 9.6 mg/dL Normal 8.4-10.2 [facility] Comment on above: Performed By: #### R ENAL #### [facility] [address] [place] [address] Dr. Chhaya De La Vega Chloride [Moles/Vol] 99 mmol/L Normal 98-107 [facility] Comment on above: Performed By: #### R ENAL #### [facility] [address] [place] [address] Dr. Chhaya De La Vega CO2 [Moles/Vol] 28.6 mmol/L Normal 22.0-30.0 [facility] Comment on above: Performed By: #### R ENAL #### [facility] [address] [place] [address] Dr. Chhaya De La Vega Creatinine [Mass/Vol] 1.51 mg/dL Critically high 0.66-1.25 [facility] Comment on above: Performed By: #### R ENAL #### [facility] [address] [place] [address] Dr. Chhaya De La Vega EGFR-AF BURKINAN 56 mL/min/1.73m2 Critically low >=60 [facility] Comment on above: Performed By: #### R ENAL #### [facility] [address] [place] [address] Dr. Chhaya De La Vega EGFR-NON AF BURKINAN 46 mL/min/1.73m2 Critically low >=60 [facility] Comment on above: Performed By: #### R ENAL #### [facility] [address] [place] [address] Dr. Chhaya De La Vega Glucose [Mass/Vol] 101 mg/dL Normal 74-106 [facility] Comment on above: Performed By: #### R ENAL #### [facility] [address] [place] [address] Dr. Chhaya De La Vega Phosphate [Mass/Vol] 2.9 mg/dL Normal 2.5-4.5 [facility] Comment on above: Performed By: #### R ENAL #### [facility] [address] [place] [address] Dr. Chhaya De La Vega Potassium [Moles/Vol] 4.1 mmol/L Normal 3.4-5.0 [facility] Comment on above: Performed By: #### R ENAL #### [facility] [address] [place] [address] Dr. Chhaya De La Vega Sodium [Moles/Vol] 136 mmol/L Critically low 137-145 [facility] Comment on above: Performed By: #### R ENAL #### [facility] [address] [place] [address] Dr. Chhaya De La Vega Urea nitrogen [Mass/Vol] 13.0 mg/dL Normal 9.0-20.0 [facility] Comment on above: Performed By: #### R ENAL #### [facility] [address] [place] [address] Dr. Chhaya De La Vega VITAMIN D 25 OHon 09-27-2021 VIT D 25-OH 24.5 ng/mL Normal [facility] Comment on above: Performed By: #### C [id number] #### [facility] [address] [place] [address] Dr. Chhaya De La Vega VIT D RANGES SEE BELOW Normal [facility] Comment on above: Result Comment: <20 ng/mL Vit D deficient 20 - <30 ng/mL Vit D insufficient 30 - 100 ng/mL Vit D sufficient >100 ng/mL Potential Toxicity Performed By: #### C [id number] #### [facility] [address] [place] [address] Dr. Chhaya De La Vega XR DEXA [...] ARTI MALCOLM Date: 2021-09-27 11:20 Normal [facility] CBC AUTO DIFFon 02-02-2021 BASO # 0.1 103/ul Normal 0.0-0.1 [facility] Comment on above: Performed By: #### C BC #### [facility] [address] [id number] Niharika Xochitl Basophils/100 WBC (Bld) 0.5 % Normal 0.2-2.0 [facility] Comment on above: Performed By: #### C BC #### [facility] [address] [id number] Niharika Xochitl EO # 0.0 103/ul Normal 0.0-0.7 [facility] Comment on above: Performed By: #### C BC #### [facility] [address] [place] [address] Niharika Xochitl Eosinophils/100 WBC (Bld) 0.2 % Critically low 0.9-7.0 [facility] Comment on above: Performed By: #### C BC #### [facility] [address] [place] [address] Niharika Xochitl Erythrocyte distribution width (RBC) [Ratio] 13.9 % Normal 11.0-15.0 [facility] Comment on above: Performed By: #### C BC #### [facility] [address] [place], [place] [id number] Niharika Xochitl Hematocrit (Bld) [Volume fraction] 49.0 % Normal 42.0-54.0 [facility] Comment on above: Performed By: #### C BC #### [facility] [address] [place], [place] [id number] Niharika Xochitl Hemoglobin (Bld) [Mass/Vol] 16.1 g/dL Normal 14.0-18.0 [facility] Comment on above: Performed By: #### C BC #### [facility] [address] [place], [place] [id number] Niharika Xochitl IG # 0.09 10e3/ul Critically high 0.00-0.03 [facility] Comment on above: Performed By: #### C BC #### [facility] [address] [place] [address] Niharikaaurelio Leung IG % 0.5 % Normal 0.0-0.5 [facility] Comment on above: Performed By: #### C BC #### [facility] [address] [place] [address] Niharikaaurelio Leung LYMPH # 1.5 103/ul Normal 1.2-3.8 [facility] Comment on above: Performed By: #### C BC #### [facility] [address] [place] [address] Niharika Leung Lymphocytes/100 WBC (Bld) 8.6 % Critically low 20.5-60.0 [facility] Comment on above: Performed By: #### C BC #### [facility] [address] [place] [address] Niharika Leung MANUAL DIFF REQ NO Normal [facility] Comment on above: Performed By: #### C BC #### [facility] [address] [place] [address] Niharika Leung MCH (RBC) [Entitic mass] 27.6 pg Normal 25.9-34.0 [facility] Comment on above: Performed By: #### C BC #### [facility] [address] [place] [address] Niharika Leung MCHC (RBC) [Mass/Vol] 32.9 g/dL Normal 29.9-35.2 [facility] Comment on above: Performed By: #### C BC #### [facility] [address] [place] [address] Niharika Leung MCV (RBC) [Entitic vol] 84.0 fL Normal 80.0-94.0 [facility] Comment on above: Performed By: #### C BC #### [facility] [address] [place] [address] Niharika Xcohitl MONO # 1.0 103/ul Critically high 0.3-0.8 [facility] Comment on above: Performed By: #### C BC #### [facility] [address] [place] [address] Nihraika Willetten Monocytes/100 WBC (Bld) 6.1 % Normal 1.7-12.0 [facility] Comment on above: Performed By: #### C BC #### [facility] [address] [place], [place] [id number] Niharika Leung NEUT # 14.1 103/ul Critically high 1.4-6.5 [facility] Comment on above: Performed By: #### C BC #### [facility] [address] [place], [place] [id number] Niharika Willetten Neutrophils/100 WBC (Bld) 84.1 % Critically high 43.0-75.0 [facility] Comment on above: Performed By: #### C BC #### [facility] [address] [place], [place] [id number] Niharika Leung Platelet mean volume (Bld) [Entitic vol] 9.0 fL Critically low 9.5-13.5 [facility] Comment on above: Performed By: #### C BC #### [facility] [address] [place], [place] [id number] Niharika Xochitl PLT 330 103/ul Normal 150-450 [facility] Comment on above: Performed By: #### C BC #### [facility] [address] [place], [place] [id number] Niharika Xochitl RBC 5.83 106/ul Normal 4.70-6.10 [facility] Comment on above: Performed By: #### C BC #### [facility] [address] [place], [place] [id number] Niharika Xochitl WBC 16.8 103/ul Critically high 4.0-11.0 [facility] Comment on above: Performed By: #### C BC #### [facility] [address] [place], [place] [id number] Niharika Xochitl CT ABD/PELVIS WO CONon 02-02 CT ABD/PELVIS [...] iterative reconstruction technique. Electronically authenticated by: HERBIE SAID Date: 2021-02-02 02:05 Normal [facility] PROF 14(COMP METB)on 021 Albumin [Mass/Vol] 4.7 g/dL Normal 3.5-5.0 [facility] Comment on above: Performed By: #### C [id number] #### [facility] [address] [place], [place] [address] Dr. Chhaya De La Vega Albumin/Globulin [Mass ratio] 0.9 {ratio} Normal [facility] Comment on above: Performed By: #### C [id number] #### [facility] [address] [place], [place] [address] Dr. Chhaya De La Vega ALP [Catalytic activity/Vol] 163 U/L Critically high 38-126 [facility] Comment on above: Performed By: #### C [id number] #### [facility] [address] [address] [address] Chhaya De La Vega ALT [Catalytic activity/Vol] 22 U/L Normal 21-72 [facility] Comment on above: Performed By: #### C [id number] #### [facility] [address] [place] [address] Dr. Chhaya De La Vega Anion gap [Moles/Vol] 15.2 mmol/L Normal [facility] Comment on above: Performed By: #### C [id number] #### [facility] [address] [place] [address] Dr. Chhaya De La Vega AST [Catalytic activity/Vol] 18 U/L Normal 17-59 [facility] Comment on above: Performed By: #### C [id number] #### [facility] [address] [place] [address] Dr. Chhaya De La Vega Bilirubin [Mass/Vol] 0.7 mg/dL Normal 0.2-1.3 [facility] Comment on above: Performed By: #### C [id number] #### [facility] [address] [place] [address] Dr. Chhaya De La Vega Calcium [Mass/Vol] 11.2 mg/dL Critically high 8.4-10.2 [facility] Comment on above: Performed By: #### C [id number] #### [facility] [address] [place] [address] Dr. Chhaya De La Vega Chloride [Moles/Vol] 98 mmol/L Normal 98-107 [facility] Comment on above: Performed By: #### C [id number] #### [facility] [address] [place] [address] Dr. Chhaya De La Vega CO2 [Moles/Vol] 28.3 mmol/L Normal 22.0-30.0 [facility] Comment on above: Performed By: #### C [id number] #### [facility] [address] [place] [address] Dr. Chhaya De La Vega Creatinine [Mass/Vol] 2.24 mg/dL Critically high 0.66-1.25 [facility] Comment on above: Performed By: #### C [id number] #### [facility] [address] [address] [address] Chhaya De La Vega EGFR-AF BURKINAN 35 mL/min/1.73m2 Critically low >=60 [facility] Comment on above: Performed By: #### C [id number] #### [facility] [address] [address] [address] Chhaya De La Vega EGFR-NON AF BURKINAN 29 mL/min/1.73m2 Critically low >=60 [facility] Comment on above: Performed By: #### C [id number] #### [facility] [address] [address] [address] Chhaya De La Vega Globulin (S) [Mass/Vol] 5.2 g/dL Normal [facility] Comment on above: Performed By: #### C [id number] #### [facility] [address] [address] [address] Chhaya De La Vega Glucose [Mass/Vol] 161 mg/dL Critically high 74-106 [facility] Comment on above: Performed By: #### C [id number] #### [facility] [address] [address] [address] Chhaya De La Vega Potassium [Moles/Vol] 4.5 mmol/L Normal 3.4-5.0 [facility] Comment on above: Performed By: #### C [id number] #### [facility] [address] [address] [address] Chhaya De La Vega Protein [Mass/Vol] 9.9 g/dL Critically high 6.1-8.2 [facility] Comment on above: Performed By: #### C [id number] #### [facility] [address] [address] [address] Chhaya De La Vega Sodium [Moles/Vol] 137 mmol/L Normal 137-145 [facility] Comment on above: Performed By: #### C [id number] #### [facility] [address] [address] [address] Chhaya De La Vega Urea nitrogen [Mass/Vol] 22.0 mg/dL Critically high 9.0-20.0 [facility] Comment on above: Performed By: #### C [id number] #### [facility] [address] [place] [address] Dr. Chhaya De La Vega Urea nitrogen/Creatinine [Mass ratio] 9.8 mg/mg Normal [facility] Comment on above: Performed By: #### C [id number] #### [facility] [address] [place] [address] Dr. Chhaya De La Vega PROTIMEon 02-02-2021 INR Coag (PPP) [Relative time] 1.03 {INR} Normal [facility] Comment on above: Performed By: #### C [id number] #### [facility] [address] [place] [address] Dr. Chhaya De La Vega INR GUIDELINES SEE BELOW Normal [facility] Comment on above: Result Comment: GIOVANNY RED INR: 2.0 - 3.0 CONDITIONS NOT LISTED BELOW 2.5 - 3.5 FOR PROSTHETIC HEART VALVE REPLACEMENT 2.5 - 3.5 RECURRENT THROMBOSIS Performed By: #### C [id number] #### [facility] [address] [place] [address] Dr. Chhaya De La Vega PT Coag (PPP) [Time] 11.2 s Normal 9.0-11.6 [facility] Comment on above: Performed By: #### C [id number] #### [facility] [address] [place] [address] Dr. Chhaya De La Vega PTTon 02-02-2021 aPTT Coag (Bld) [Time] 28.7 s Normal 22.3-36.2 [facility] Comment on above: Performed By: #### C [id number] #### [facility] [address] [place] [address] Dr. Chhaya De La Vega RESPIRATORY PANEL PLUSon Adenovirus Not detected Normal NOT DETECTED [facility] Comment on above: Performed By: #### R SPLUS #### [facility] [address] [place] [address] Niharika Xochitl B. Parapertusis Not detected Normal NOT DETECTED [facility] Comment on above: Performed By: #### R SPLUS #### [facility] [address] [place] [address] Niharika Xochitl B. Pertussis Not detected Normal NOT DETECTED [facility] Comment on above: Performed By: #### R SPLUS #### [facility] [address] [place] [address] Niharika Xochitl Chlamydia Pneumoniae Not detected Normal NOT DETECTED [facility] Comment on above: Performed By: #### R SPLUS #### [facility] [address] [place] [address] Niharika Xochitl Coronavirus 229E Not detected Normal NOT DETECTED [facility] Comment on above: Performed By: #### R SPLUS #### [facility] [address] [place] [address] Niharika Xochitl Coronavirus HKU1 Not detected Normal NOT DETECTED [facility] Comment on above: Performed By: #### R SPLUS #### [facility] [address] [place] [address] Niharika Xochitl Coronavirus NL63 Not detected Normal NOT DETECTED [facility] Comment on above: Performed By: #### R SPLUS #### [facility] [address] [place] [address] Niharika Xochitl Coronavirus OC43 Not detected Normal NOT DETECTED [facility] Comment on above: Performed By: #### R SPLUS #### [facility] [address] [place] [address] Niharika Xochitl Influenza A H1 2009 Not detected Normal NOT DETECTED [facility] Comment on above: Performed By: #### R SPLUS #### [facility] [address] [place] [address] Niharika Xochitl Influenza B Not detected Normal NOT DETECTED [facility] Comment on above: Performed By: #### R SPLUS #### [facility] [address] [place] [address] Niharika Xochitl Metapneumovirus Not detected Normal NOT DETECTED [facility] Comment on above: Performed By: #### R SPLUS #### [facility] [address] [place] [address] Niharika Xochitl Mycoplas. Pneumoniae Not detected Normal NOT DETECTED [facility] Comment on above: Performed By: #### R SPLUS #### [facility] [address] [place] [address] Niharika Xochitl Parainfluenza 1 Not detected Normal NOT DETECTED [facility] Comment on above: Performed By: #### R SPLUS #### [facility] [address] [place] [address] Niharika Xochitl Parainfluenza 2 Not detected Normal NOT DETECTED [facility] Comment on above: Performed By: #### R SPLUS #### [facility] [address] [place] [address] Niharika Xochitl Parainfluenza 3 Not detected Normal NOT DETECTED [facility] Comment on above: Performed By: #### R SPLUS #### [facility] [address] [place] [address] Niharika Xochitl Parainfluenza 4 Not detected Normal NOT DETECTED [facility] Comment on above: Performed By: #### R SPLUS #### [facility] [address] [place] [address] Niharika Xochitl Rhino/Enterovirus Not detected Normal NOT DETECTED [facility] Comment on above: Performed By: #### R SPLUS #### [facility] [address] [place] [address] Niharika Xochitl RP2 Header 1 RESPIRATORY PANEL: VIRUSES Normal [facility] Comment on above: Performed By: #### R SPLUS #### [facility] [address] [place] [address] Niharika Xochitl RP2 Header 2 RESPIRATORY PANEL: BACTERIA Normal [facility] Comment on above: Performed By: #### R SPLUS #### [facility] [address] [place] [address] Niharika Xochitl RP2 Header 4 EUA SEE BELOW Normal [facility] Comment on above: Result Comment: This test is not yet approved or cleared by the [place] FDA. When there are no FDA-approved or cleared tests available, and other criteria are met, FDA can make tests available under an emergency access mechanism called an Emergency Use Authorization (EUA). The EUA for this test is supported by the [place] of Health and Human Service?s (HHS?s) declaration [...] used). Performed By: #### R SPLUS #### [facility] [address] [place] [address] Niharika Leung RSV Not detected Normal NOT DETECTED [facility] Comment on above: Performed By: #### R SPLUS #### [facility] [address] [place] [address] Niharika Leung SARS-CoV-2 (COVID-19) RNA MICHELLE+probe Ql (Unsp spec) Not detected Normal NOT DETECTED [facility] Comment on above: Performed By: #### R SPLUS #### [facility] [address] [place] [address] Niharika Leung XR ABD FLAT UP_PA Jeremy [...] HERBIE SAID Date: 2021-02-02 00:21 Normal [facility] Coding Summary.on 04-17-2020 Coding Summary. 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 warren History of Present Illness Patient presents with a painless vision loss onset this morning. Patient was seen at [facility] emergency room. The ER physician, Dr. [...] made arrangements with the [facility] for the patient to be seen at 9:30 AM at their [place] office. I confirmed the patient's instructions with [...] AM on Monday with the [facility] at their [place] office. In 2 days 04/13/2020 EDT Additional [...] examination was conducted by the ER physician. [facility] Comment on above: Result Comment: Elec [...] was seen in the Emergency Room at [facility], however there was no availability for on-call doctors. He also is a patient of Dr. Aurelio Condon, however they did not return any calls from the Emergency Room physician or the patient so the patient was transferred to [facility] for evaluation. PAST OCULAR HISTORY: [...] get in touch with [facility] and they did not have somebody in the Operating Room on Monday so, therefore, this will be evaluated on Monday morning at 9:30 a[address] in their [place] office. Dr. Clemons will be seeing him. [...] given. Gianluca Warren D.O. gls Dictated: 04/11/2020 #[id number] Typed: 04/13/2020 #[id number] cc: MD Dick Barry M.D. Jonathan D. Zahler, D.O. Normal [facility] Comment on above: Result Comment: Elec tronically Signed By: Gianluca Warren DO\.br\Date and Time Signed: 04/13/20 16:36 EDT Discharge Instructionson Discharge Instructions [id number]:127 Normal [facility] ED Clinical Summaryon 2019 ED Clinical Summary (Inserted Image. Diamond ble to display) [place] [id number] ED Clinical Summary Person Information Name: CHAR ALATORRE/[facility] Age: 69 Years : 1950 Sex: Male Language: Moldovan PCP: JUSTIN MARTINEZ MD Marital Status: Visit [...] 04/11/2020 23:00:43 04/11/2020 23:00:43 04/11/2020 23:00:43 ADDRESS: [address] [place] [id number] PHYS DOC NOTES: MEDICAL INFORMATION: Prescriptions Given: PATIENT EDUCATION INFORMATION: Instructions: Retinal Detachment, Care After Follow up: With: Address: When: You have an appointment at 9:30 AM on Monday with the [facility] at their [place] office. In 2 days 04/13/2020 DIAGNOSIS: Retinal detachment Normal [facility] ED Patient Education Noteon 04-12-2020 ED Patient [...] Keep appointments as directed. ? Only take smuj-jhb-uckxhmg or prescription medicines for pain, discomfort, or [...] Document Reviewed: 08/28/2008 ExitCare? Patient Information ?2015 [employer]. This information is not intended to replace advice given to you by your health care provider. Make sure you discuss any questions you have with your health care provider. Normal [facility] ED Patient Summaryon 020 ED Patient Summary (Inserted Image. Diamond ble to display) [place] [id number] Patient Discharge Instructions Person Information Name: CHAR ALATORRE Age: 69 Years Arrival Date: 04/11/2020 20:42:11 Discharge Diagnosis: Retinal detachment Primary Care Physician: JUSTIN MARTINEZ MD Provider Information Primary Provider: Link Conrad MD Advanced Paper Twister Tender:None The exam and treatment you received in the Emergency Department were for an urgent problem and are not intended as complete care. It is important that you follow up with a doctor, nurse practitioner, or physician?s assistant women's basketball coach for ongoing care. If your symptoms become [...] AM on Monday with the [facility] at their [place] office. In 2 days 04/13/2020 In the event that this physician does not participate in your insurance network, please consult with your insurance company to find a nearby participating provider. Patient Education Materials: Retinal Detachment, Care After A MESSAGE TO ALL PATIENTS REGARDING OPIOIDS PRESCRIPTION OPIOIDS: WHAT YOU NEED TO KNOW Prescription opioids can be used to help relieve etcmftdz-bm-kmtzcq pain and are often prescribed following a [...] be struggling with addiction, tell your health primary care md and ask for guidance or call SAM[employer]?S National Helpline at 1-422-894-RYUG. v Source: [place] Department of Health and Human Services/Center for Disease Control & Prevention [facility] Medications Given: Medication Dose Route No medications found. Medication Information: Comment: Pharmacy Information: Thank you for choosing [facility] Patient Education Materials: Retinal Detachment, Care [...] Keep appointments as directed. ? Only take ympf-lih-wrmocfl or prescription medicines for pain, discomfort, or [...] Document Reviewed: 08/28/2008 ExitCare? Patient Information ?2015 [employer], [employer]. This information is not intended to replace [...] AM on Monday with the [facility] at their [place] office. In 2 days 04/13/2020 Patient Signature __ Clinician/Nurse Signature 04/11/2020 23:00:45 [facility] Progress Note-Nurseon 2019 Progress Note-Nurse pt verbalized understanding of discharge instructions et follow up appointment on Monday. [facility] Consent for Treatmenton 03-17 Consent for Treatment [id number]:127 [facility] Vital Signs Date Time Vital Sign Value Performing Clinician Facility 11-25-2024 08:00-0500 Body temperature 97.4 [degF] Justin Martinez MD Work Phone: [facility] 11-25-2024 08:00-0500 Diastolic blood pressure 57 mm[Hg] Justin Martinez MD Work Phone: [facility] 11-25-2024 08:00-0500 Heart rate 50 /min Justin Martinez MD Work Phone: [facility] 11-25-2024 08:00-0500 Respiratory rate 18 /min Justin Martinez MD Work Phone: [facility] 11-25-2024 08:00-0500 SaO2% (BldA) [Mass fraction] 98 % Justin Martinez MD Work Phone: [facility] 11-25-2024 08:00-0500 Systolic blood pressure 105 mm[Hg] Justin Martinez MD Work Phone: [facility] 11-25-2024 04:48-0500 Body weight 76.1 kg Justin Martinez MD Work Phone: [facility] 11-24-2024 22:26-0500 Inhaled oxygen concentration 30 % Justin Martinez MD Work Phone: [facility] 11-24-2024 16:00-0500 Inhaled oxygen flow rate 2 L/min Justin Martinez MD Work Phone: [facility] 11-21-2024 15:15-0500 Body height 182.88 cm Justin Martinez MD Work Phone: [facility] 11-21-2024 00:01-0500 Heart rate 85 /min Justin Martinez MD Work Phone: [facility] 11-21-2024 00:01-0500 Inhaled oxygen concentration 30 % Justin Martinez MD Work Phone: [facility] 11-21-2024 00:01-0500 Respiratory rate 16 /min Justin Martinez MD Work Phone: [facility] 11-21-2024 00:01-0500 SaO2% (BldA) [Mass fraction] 95 % Justin Martinez MD Work Phone: [facility] 11-20-2024 20:00-0500 Body temperature 97.6 [degF] Justin Martinez MD Work Phone: [facility] 11-20-2024 20:00-0500 Diastolic blood pressure 73 mm[Hg] Justin Martinez MD Work Phone: [facility] 11-20-2024 20:00-0500 Systolic blood pressure 113 mm[Hg] Justin Martinez MD Work Phone: [facility] 11-20-2024 16:07-0500 Body height 182.88 cm Justin Martinez MD Work Phone: [facility] 11-20-2024 16:07-0500 Body weight 84.6 kg Justin Martinez MD Work Phone: [facility] 11-20-2024 10:02-0500 Body height 182.88 cm Justin Martinez MD Work Phone: [facility] 11-20-2024 10:02-0500 Body mass index (BMI) [Ratio] 25.6 kg/m2 Justin Martinez MD Work Phone: [facility] 11-20-2024 10:02-0500 Body weight 85.72 kg Justin Martinez MD Work Phone: [facility] 11-20-2024 10:02-0500 Diastolic blood pressure 62 mm[Hg] Justin Martinez MD Work Phone: [facility] 11-20-2024 10:02-0500 Heart rate 82 /min Justin Martinez MD Work Phone: [facility] 11-20-2024 10:02-0500 Inhaled oxygen flow rate 2 L/min Justin Martinez MD Work Phone: [facility] 11-20-2024 10:02-0500 Respiratory rate 18 /min Justin Martinez MD Work Phone: [facility] 11-20-2024 10:02-0500 SaO2% (BldA) [Mass fraction] 91 % Justin Martinez MD Work Phone: [facility] 11-20-2024 10:02-0500 Systolic blood pressure 94 mm[Hg] Justin Martinez MD Work Phone: [facility] 10-28-2024 11:11-0500 Body height 182.88 cm Justin Martinez MD Work Phone: [facility] 10-28-2024 11:11-0500 Body mass index (BMI) [Ratio] 24.3 kg/m2 Justin Martinez MD Work Phone: [facility] 10-28-2024 11:11-0500 Body weight 81.19 kg Justin Martinez MD Work Phone: [facility] 10-28-2024 11:11-0500 Diastolic blood pressure 60 mm[Hg] Justin Martinez MD Work Phone: [facility] 10-28-2024 11:11-0500 Heart rate 89 /min Justin Martinez MD Work Phone: [facility] 10-28-2024 11:11-0500 Inhaled oxygen flow rate 2 L/min Justin Martinez MD Work Phone: [facility] 10-28-2024 11:11-0500 SaO2% (BldA) [Mass fraction] 100 % Justin Martinez MD Work Phone: [facility] 10-28-2024 11:11-0500 Systolic blood pressure 111 mm[Hg] Justin Martinez MD Work Phone: [facility] 10-21-2024 11:06-0500 Body height 180.3 cm Justin Martinez MD Work Phone: [facility] 10-21-2024 11:06-0500 Body mass index (BMI) [Ratio] 24.83 kg/m2 Justin Martinez MD Work Phone: [facility] 10-21-2024 11:06-0500 Body weight 80.74 kg Justin Martinez MD Work Phone: [facility] 10-21-2024 11:06-0500 Diastolic blood pressure 62 mm[Hg] Justin Martinez MD Work Phone: [facility] 10-21-2024 11:06-0500 Heart rate 78 /min Justin Martinez MD Work Phone: [facility] 10-21-2024 11:06-0500 SaO2% (BldA) [Mass fraction] 97 % Justin Martinez MD Work Phone: [facility] 10-21-2024 11:06-0500 Systolic blood pressure 88 mm[Hg] Justin Martinez MD Work Phone: [facility] 10-20-2024 11:51-0500 Diastolic blood pressure 70 mm[Hg] Justin Martinez MD Work Phone: [facility] 10-20-2024 11:51-0500 Heart rate 88 /min Justin Martinez MD Work Phone: [facility] 10-20-2024 11:51-0500 Respiratory rate 18 /min Justin Martinez MD Work Phone: [facility] 10-20-2024 11:51-0500 SaO2% (BldA) [Mass fraction] 93 % Justin Martinez MD Work Phone: [facility] 10-20-2024 11:51-0500 Systolic blood pressure 102 mm[Hg] Justin Martinez MD Work Phone: [facility] 10-20-2024 11:43-0500 Body height 182.88 cm Justin Martinez MD Work Phone: [facility] 10-20-2024 08:39-0500 Inhaled oxygen flow rate 2 L/min Justin Martinez MD Work Phone: [facility] 10-20-2024 08:29-0500 Body temperature 97.5 [degF] Justin Martinez MD Work Phone: [facility] 10-20-2024 05:47-0500 Body weight 77.5 kg Justin Martinez MD Work Phone: [facility] 10-19-2024 16:42-0500 Diastolic blood pressure 65 mm[Hg] Justin Martinez MD Work Phone: [facility] 10-19-2024 16:42-0500 Heart rate 78 /min Justin Martinez MD Work Phone: [facility] 10-19-2024 16:42-0500 Respiratory rate 18 /min Justin Martinez MD Work Phone: [facility] 10-19-2024 16:42-0500 SaO2% (BldA) [Mass fraction] 96 % Justin Martinez MD Work Phone: [facility] 10-19-2024 16:42-0500 Systolic blood pressure 133 mm[Hg] Justin Martinez MD Work Phone: [facility] 10-19-2024 15:14-0500 Inhaled oxygen flow rate 2 L/min Justin Martinez MD Work Phone: [facility] 10-19-2024 12:09-0500 Body height 182.88 cm Justin Martinez MD Work Phone: [facility] 10-19-2024 12:09-0500 Body weight 81.5 kg Justin Martinez MD Work Phone: [facility] 10-09-2024 14:35-0500 Diastolic blood pressure 63 mm[Hg] Justin Martinez MD Work Phone: [facility] 10-09-2024 14:35-0500 Heart rate 81 /min Justin Martinez MD Work Phone: [facility] 10-09-2024 14:35-0500 Respiratory rate 24 /min Justin Martinez MD Work Phone: [facility] 10-09-2024 14:35-0500 SaO2% (BldA) [Mass fraction] 100 % Justin Martinez MD Work Phone: [facility] 10-09-2024 14:35-0500 Systolic blood pressure 127 mm[Hg] Justin Martinez MD Work Phone: [facility] 10-09-2024 13:34-0500 Inhaled oxygen flow rate 2 L/min Justin Martinez MD Work Phone: [facility] 10-09-2024 12:06-0500 Body height 182.88 cm Justin Martinez MD Work Phone: [facility] 10-09-2024 12:06-0500 Body temperature 98.3 [degF] Justin Martinez MD Work Phone: [facility] 10-09-2024 12:06-0500 Body weight 82.5 kg Justin Martinez MD Work Phone: [facility] 09-16-2024 10:30-0500 Body height 182.88 cm Justin Martinez MD Work Phone: [facility] 09-16-2024 10:30-0500 Body mass index (BMI) [Ratio] 24.7 kg/m2 Justin Martinez MD Work Phone: [facility] 09-16-2024 10:30-0500 Body temperature 96.5 [degF] Justin Martinez MD Work Phone: [facility] 09-16-2024 10:30-0500 Body weight 82.55 kg Justin Martinez MD Work Phone: [facility] 09-16-2024 10:30-0500 Diastolic blood pressure 72 mm[Hg] Justin Martinez MD Work Phone: [facility] 09-16-2024 10:30-0500 Heart rate 76 /min Justin Martinez MD Work Phone: [facility] 09-16-2024 10:30-0500 Respiratory rate 16 /min Jutsin Martinez MD Work Phone: [facility] 09-16-2024 10:30-0500 SaO2% (BldA) [Mass fraction] 97 % Justin Martinez MD Work Phone: [facility] 09-16-2024 10:30-0500 Systolic blood pressure 92 mm[Hg] Justin Martinez MD Work Phone: [facility] 09-03-2024 09:30-0500 Body height 182.88 cm [facility] 09-03-2024 09:30-0500 Body mass index (BMI) [Ratio] 24.7 kg/m2 [facility] 09-03-2024 09:30-0500 Body temperature 96.4 [degF] [facility] 09-03-2024 09:30-0500 Body weight 82.55 kg [facility] 09-03-2024 09:30-0500 Diastolic blood pressure 69 mm[Hg] [facility] 09-03-2024 09:30-0500 Heart rate 76 /min [facility] 09-03-2024 09:30-0500 Respiratory rate 20 /min [facility] 09-03-2024 09:30-0500 SaO2% (BldA) [Mass fraction] 96 % [facility] 09-03-2024 09:30-0500 Systolic blood pressure 112 mm[Hg] [facility] 07-16-2024 11:06-0400 Body height 180.3 cm Justin Martinez MD Work Phone: [facility] 07-16-2024 11:06-0400 Body mass index (BMI) [Ratio] 26.22 kg/m2 Justin Martinez MD Work Phone: [facility] 07-16-2024 11:06-0400 Body weight 85.28 kg Justin Martinez MD Work Phone: [facility] 07-16-2024 11:06-0400 Diastolic blood pressure 78 mm[Hg] Justin Martinez MD Work Phone: [facility] 07-16-2024 11:06-0400 Heart rate 80 /min Justin Martinez MD Work Phone: [facility] 07-16-2024 11:06-0400 SaO2% (BldA) [Mass fraction] 96 % Justin Martinez MD Work Phone: [facility] 07-16-2024 11:06-0400 Systolic blood pressure 110 mm[Hg] Justin Martinez MD Work Phone: [facility] 07-03-2024 10:24-0400 Body height 182.88 cm [facility] 07-03-2024 10:24-0400 Body mass index (BMI) [Ratio] 25.6 kg/m2 [facility] 07-03-2024 10:24-0400 Body temperature 97.4 [degF] [facility] 07-03-2024 10:24-0400 Body weight 85.72 kg [facility] 07-03-2024 10:24-0400 Diastolic blood pressure 62 mm[Hg] [facility] 07-03-2024 10:24-0400 Heart rate 69 /min [facility] 07-03-2024 10:24-0400 Respiratory rate 20 /min [facility] 07-03-2024 10:24-0400 SaO2% (BldA) [Mass fraction] 97 % [facility] 07-03-2024 10:24-0400 Systolic blood pressure 97 mm[Hg] [facility] 06-06-2024 11:26-0400 Body height 182.88 cm [facility] 06-06-2024 11:26-0400 Body mass index (BMI) [Ratio] 26.6 kg/m2 [facility] 06-06-2024 11:26-0400 Body temperature 97.7 [degF] [facility] 06-06-2024 11:26-0400 Body weight 88.9 kg [facility] 06-06-2024 11:26-0400 Diastolic blood pressure 59 mm[Hg] [facility] 06-06-2024 11:26-0400 Heart rate 83 /min [facility] 06-06-2024 11:26-0400 Respiratory rate 18 /min [facility] 06-06-2024 11:26-0400 SaO2% (BldA) [Mass fraction] 98 % [facility] 06-06-2024 11:26-0400 Systolic blood pressure 87 mm[Hg] [facility] 06-04-2024 10:25-0400 Body height 180.3 cm Justin Martinez MD Work Phone: [facility] 06-04-2024 10:25-0400 Body mass index (BMI) [Ratio] 27.34 kg/m2 Justin Martinez MD Work Phone: [facility] 06-04-2024 10:25-0400 Body weight 88.91 kg Justin Martinez MD Work Phone: [facility] 06-04-2024 10:25-0400 Diastolic blood pressure 88 mm[Hg] Justin Martinez MD Work Phone: [facility] 06-04-2024 10:25-0400 Heart rate 91 /min Justin Martinez MD Work Phone: [facility] 06-04-2024 10:25-0400 SaO2% (BldA) [Mass fraction] 94 % Justin Martinez MD Work Phone: [facility] 06-04-2024 10:25-0400 Systolic blood pressure 126 mm[Hg] Justin Martinez MD Work Phone: [facility] 02-22-2024 11:23-0400 Body height 182.88 cm MD Justin Martinez Work Phone: [facility] 02-22-2024 11:23-0400 Body mass index (BMI) [Ratio] 28.7 kg/m2 MD Justin Martinez Work Phone: [facility] 02-22-2024 11:23-0400 Body temperature 96.2 [degF] MD Justin Martinez Work Phone: [facility] 02-22-2024 11:23-0400 Body weight 96.16 kg MD Justin Martinez Work Phone: [facility] 02-22-2024 11:23-0400 Diastolic blood pressure 70 mm[Hg] MD Justin Martinez Work Phone: [facility] 02-22-2024 11:23-0400 Heart rate 95 /min MD Justin Martinez Work Phone: [facility] 02-22-2024 11:23-0400 Respiratory rate 18 /min MD Justin Martinez Work Phone: [facility] 02-22-2024 11:23-0400 SaO2% (BldA) [Mass fraction] 98 % MD Justin Martinez Work Phone: [facility] 02-22-2024 11:23-0400 Systolic blood pressure 112 mm[Hg] MD Justin Martinez Work Phone: [facility] 01-25-2024 16:01-0400 Diastolic blood pressure 84 mm[Hg] [facility] 01-25-2024 16:01-0400 Heart rate 97 /min [facility] 01-25-2024 16:01-0400 SaO2% (BldA) [Mass fraction] 95 % [facility] 01-25-2024 16:01-0400 Systolic blood pressure 120 mm[Hg] [facility] 03-16-2023 10:20-0400 Body height 182.88 cm Magy Emiliano Other [employer] Other 03-16-2023 10:20-0400 Body mass index (BMI) [Ratio] 30.08 kg/m2 Magy Emiliano Other [employer] Other 03-16-2023 10:20-0400 Body temperature 96.1 [degF] Magy Emiliano Other [employer] Other 03-16-2023 10:20-0400 Body weight 100.61 kg Magy Emiliano Other [employer] Other 03-16-2023 10:20-0400 Diastolic blood pressure 50 mm[Hg] Magy Emiliano Other [employer] Other 03-16-2023 10:20-0400 Respiratory rate 18 /min Magy Emiliano Other [employer] Other 03-16-2023 10:20-0400 SaO2% (BldA) [Mass fraction] 92 % Magy Emiliano Other [employer] Other 03-16-2023 10:20-0400 Systolic blood pressure 100 mm[Hg] Magy Emiliano Other [employer] Other 06-01-2022 14:39-0400 Body height 182.88 cm Rugen Karie [place] Work Phone: [facility] 250 DO Work Phone: 06-01-2022 14:39-0400 Body mass index (BMI) [Ratio] 29.97 kg/m2 Rugen Karie [place] Work Phone: [facility] 250 DO Work Phone: 06-01-2022 14:39-0400 Body surface area Derived from formula 2.22 m2 Rugen Karie [place] Work Phone: [facility] 250 DO Work Phone: 06-01-2022 14:39-0400 Body weight 100.25 kg Rugmalinda Tiwari Juan Work Phone: [facility] 250 DO Work Phone: 06-01-2022 14:39-0400 Diastolic blood pressure 64 mm[Hg] Rugen Karie Juan Work Phone: [facility] 250 DO Work Phone: 06-01-2022 14:39-0400 Heart rate 83 /min Rugen Karie Juan Work Phone: [facility] 250 DO Work Phone: 06-01-2022 14:39-0400 Systolic blood pressure 130 mm[Hg] Rugen Karie Juan Work Phone: [facility] 250 DO Work Phone: 04-21-2022 11:20-0400 Body height 182.88 cm Magy Emiliano Other [employer] Other 04-21-2022 11:20-0400 Body mass index (BMI) [Ratio] 29.45 kg/m2 Magy Emiliano Other [employer] Other 04-21-2022 11:20-0400 Body temperature 96.5 [degF] Magy Emiliano Other [employer] Other 04-21-2022 11:20-0400 Body weight 98.52 kg Magy Emiliano Other [employer] Other 04-21-2022 11:20-0400 Diastolic blood pressure 60 mm[Hg] Magy Emiliano Other [employer] Other 04-21-2022 11:20-0400 Respiratory rate 18 /min Magy Emiliano Other [employer] Other 04-21-2022 11:20-0400 SaO2% (BldA) [Mass fraction] 94 % Magy Emiliano Other [employer] Other 04-21-2022 11:20-0400 Systolic blood pressure 120 mm[Hg] Magy Emiliano Other [employer] Other Encounters Encounter Date Encounter Type Care Provider Facility Start: 11-21-2024 Non-patient / Non-visit Justin Martinez MD Work Phone: [facility] Work Phone: Start: 11-20-2024 Non-patient / Non-visit Justin Martinez MD Work Phone: [facility] Work Phone: Start: 11-20-2024 End: 11-25-2024 Evaluation and management of inpatient Justin Martinez MD Work Phone: [facility] Work Phone: Start: 11-20-2024 End: 11-20-2024 ambulatory Justin Martinez MD Work Phone: [facility] Work Phone: Start: 11-20-2024 End: 11-20-2024 Patient encounter procedure Justin Martinez MD Work Phone: [facility] Work Phone: Start: 11-14-2024 End: 11-21-2024 Telephone encounter Corry Garcia [facility] Comment on above: Hospital Follow-up Start: 11-12-2024 End: 11-12-2024 Clinisync Result Encounter Generic External Data Provider [facility] External Department Unsolicited Start: 11-12-2024 End: 11-12-2024 Clinisync Result Encounter Generic External Data Provider [facility] External Department Unsolicited Start: 11-12-2024 End: 11-12-2024 Telephone encounter Justin Martinez MD Work Phone: [facility] Start: 11-09-2024 ambulatory [facility] Start: 11-08-2024 End: 11-15-2024 Emergency department patient visit [facility] Start: 11-07-2024 Non-patient / Non-visit Justin Martinez MD Work Phone: [facility] Work Phone: Start: 10-28-2024 End: 10-28-2024 Patient encounter procedure Justin Martinez MD Work Phone: [facility] Work Phone: Start: 10-28-2024 End: 10-28-2024 ambulatory Justin Martinez MD Work Phone: [facility] Work Phone: Start: 10-28-2024 End: 10-28-2024 ambulatory Justin Martinez MD Work Phone: [facility] Work Phone: Start: 10-28-2024 End: 10-28-2024 Patient encounter procedure Justin Mratinez MD Work Phone: [facility] Work Phone: Start: 10-21-2024 End: 10-21-2024 Transitional care manage srvc 14 day discharge Justin Martinez MD Work Phone: [facility] Comment on above: 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, 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) ([facility]/HCC) (Primary Dx); CKD stage 3b, GFR 30-44 ml/min ([facility]); Anemia in other chronic diseases classified elsewhere; CHF (congestive heart failure), NYHA class IV, acute on chronic, diastolic ([facility]/HCC) Start: 10-21-2024 End: 10-21-2024 ambulatory JUSTIN MARTINEZ Not Available Start: 10-19-2024 End: 10-20-2024 Evaluation and management of inpatient Justin Martinez MD Work Phone: [facility] Work Phone: Start: 10-09-2024 End: 10-09-2024 Emergency department patient visit Justin Martinez MD Work Phone: [facility] Work Phone: Start: 09-16-2024 End: 09-16-2024 Patient encounter procedure Justin Martinez MD Work Phone: [facility] Work Phone: Start: 09-03-2024 End: 09-03-2024 Patient encounter procedure Justin Martinez MD Work Phone: [facility] [place] Work Phone: Start: 09-03-2024 End: 09-03-2024 ambulatory Justin Martinez MD Work Phone: [facility] Work Phone: Start: 09-03-2024 End: 09-03-2024 ambulatory [facility] Work Phone: Start: 09-03-2024 End: 09-03-2024 Patient encounter procedure [facility] Work Phone: Start: 08-09-2024 End: 08-10-2024 Refill Justin Martinez MD Work Phone: [facility] Comment on above: Atherosclerosis of n ative coronary artery of [place] heart without angina pectoris (CMS/HCC) (Primary Dx); Essential hypertension (CMS/HCC) Start: 07-16-2024 End: 07-16-2024 Office outpatient visit 25 minutes Justin Martinez MD Work Phone: [facility] Comment on above: 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, 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) (CMS/HCC) (Primary Dx); Atherosclerosis of [place] coronary artery of [place] heart without angina pectoris (CMS/HCC); Pulmonary hypertension (CMS/HCC); Coronary artery disease due to lipid rich plaque (CMS/HCC); Congestive heart failure due to hypertension (CMS/HCC) Start: 07-16-2024 End: 07-16-2024 ambulatory JUSTIN MARTINEZ Not Available Start: 07-03-2024 End: 07-03-2024 ambulatory [facility] [place] Work Phone: Start: 07-03-2024 End: 07-03-2024 Patient encounter procedure [facility] Work Phone: Start: 06-06-2024 End: 06-06-2024 ambulatory [facility] Work Phone: Start: 06-06-2024 End: 06-06-2024 Patient encounter procedure [facility] Work Phone: Start: 06-04-2024 End: 06-04-2024 Office outpatient visit 25 minutes Justin Martinez MD Work Phone: [facility] Comment on above: Pulmonary hypertensi on (CMS/HCC) (Primary Dx); Coronary artery disease due to lipid rich plaque (CMS/HCC); Congestive heart failure due to hypertension (CMS/HCC) Start: 06-04-2024 End: 06-04-2024 ambulatory RUGEN M JUAN Not Available Start: 06-03-2024 Non-patient / Non-visit [facility] Work Phone: Start: 05-12-2024 End: 05-13-2024 Non-patient / Non-visit [facility] Work Phone: Start: 03-25-2024 End: 03-25-2024 ambulatory RUGEN M JUAN Not Available Start: 03-06-2024 End: 03-06-2024 Patient encounter procedure MD Justin Martinez Work Phone: [facility] [place] Work Phone: Start: 03-06-2024 End: 03-06-2024 ambulatory MD Justin Martinez Work Phone: [facility] Work Phone: Start: 02-27-2024 End: 02-27-2024 ambulatory RUGEN Karie JUAN Not Available Start: 02-22-2024 End: 02-22-2024 ambulatory MD Justin Martinez Work Phone: [facility] Work Phone: Start: 02-22-2024 End: 02-22-2024 Patient encounter procedure MD Justin Martinez Work Phone: [facility] [place] Work Phone: Start: 02-20-2024 End: 02-20-2024 ambulatory JUSTIN Tiwari JUAN Not Available Start: 02-15-2024 End: 02-15-2024 Patient encounter procedure MD Justin Martinez Work Phone: [facility] [place] Work Phone: Start: 02-15-2024 End: 02-15-2024 ambulatory MD Justin Martinez Work Phone: [facility] Work Phone: Start: 02-14-2024 End: 02-14-2024 Patient encounter procedure MD Justin Martinez Work Phone: [facility] [place] Work Phone: Start: 02-14-2024 End: 02-14-2024 ambulatory Magy Emiliano Facility:[facility] Start: 01-26-2024 End: 01-26-2024 Patient encounter procedure MD Justin Martinez Work Phone: [facility] [place] Work Phone: Start: 01-26-2024 End: 01-26-2024 ambulatory MD Justin Martinez Work Phone: [facility] Work Phone: Start: 01-25-2024 End: 01-25-2024 ambulatory [facility] Work Phone: Start: 01-25-2024 End: 01-25-2024 Patient encounter procedure [facility] Work Phone: Start: 01-17-2024 Non-patient / Non-visit MD Brandon Martinez Work Phone: [facility] Work Phone: Start: 01-04-2024 End: 01-04-2024 ambulatory JUSTIN MARTINEZ Not Available Start: 06-13-2023 Assay of hemosiderin , garret Martinez MD Work Phone: [facility] Start: 03-16-2023 End: 03-16-2023 ambulatory Magy Emiliano Other [facility] [employer] Other Start: 03-16-2023 Office outpatient vi sit 25 minutes Magy Emiliano [facility] [place] Start: 06-01-2022 Office consultation new/estab patient 60 min Justin Martinez Work Phone: [facility] 250 DO Work Phone: Start: 06-01-2022 ambulatory Rashaad Stephens II Facility: Start: 05-30-2022 ambulatory Rashaad Stephens II Faci lity:[facility] Start: 04-21-2022 End: 04-21-2022 ambulatory Magy Emiliano Other [facility] [employer] Other Start: 04-21-2022 Office outpatient vi sit [...] Date Procedure Procedure Detail Performing Clinician Start: 11-23-2024 Computed tomography of thoracic spine without contrast Justin Martinez MD Work Phone: Start: 11-23-2024 CT of lumbar spine w ithout contrast Justin Martinez MD Work Phone: Start: 11-21-2024 X-ray of left foot Horacio Martinez MD Work Phone: Start: 11-12-2024 ITP Generic Ex ternal Data [...] Martinez MD Work Phone: Cataract surgery Brandonen Karie Ald a Work Phone: Cholecystectomy Brandonmalinda Tiwari [place] Work Phone: Endarterectomy Brandonen M Juan Work Phone: Comment on above: Right carotid; Femoral endarterectomy Brandonen Karie Juan Work Phone: Comment on above: Right- 05/11/2022- 3 stents placed; Hemorrhoidectomy Rugmalinda Tiwari Ald a Work Phone: Placement of stent Justin Trotter lda Work Phone: Procedure on back Brandonmalinda Tiwari Al da Work Phone: 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 Start: 11-29-2024 [facility] Start: 11-28-2024 [facility] Start: 11-27-2024 [facility] Start: 11-26-2024 [facility] Start: 11-25-2024 End: 11-25-2024 Patient encounter procedure 11/25/2024 11:00 AM EST Office Visit [facility] [address] [place] [address] Justin Martinez MD [address] [facility] [address] [place] [address] [facility] Start: 11-25-2024 [facility] Start: 11-24-2024 End: 11-24-2024 [facility] Start: 11-24-2024 Evaluation procedure [facility] Start: 11-23-2024 [facility] Start: 11-22-2024 [facility] Start: 11-21-2024 Administration of prophylactic treatment [facility] Start: 11-21-2024 [facility] Start: 11-20-2024 Patient referral to dietitian [facility] Start: 11-20-2024 [facility] Start: 11-20-2024 Hospital admission [facility] Start: 11-20-2024 Referral to gis software developer [facility] Start: 11-20-2024 Referral to communications project manager [facility] Start: 11-20-2024 [facility] Start: 11-20-2024 [facility] Start: 11-17-2024 Screening for malign ant neoplasm of colon [facility] Start: 11-14-2024 End: 11-14-2024 Patient encounter procedure 11/14/2024 1:15 PM EST Office Visit [facility] [address] [facility] [address] [place] [address] Justin Martinez MD [address] [facility] [address] [place] [address] [facility] Start: 11-09-2024 Pneumococcal Vaccine : 65+ Years (3 of 3 - PPSV23 or PCV20) Pneumococcal Vaccine: 65+ Years (3 of 3 - PPSV23 or PCV20) [facility] Comment on above: Postponed from 07/17 (Other Patient Reasons) Start: 10-21-2024 End: 10-21-2024 Patient encounter procedure 10/21/2024 11:00 AM EST Office Visit [facility] [address] [facility] [address] [place] [id number] Justin Martinez MD [address] [facility] [address] [place] [address] [facility] Start: 10-20-2024 Administration of prophylactic treatment [facility] Start: 10-20-2024 End: 10-20-2024 [facility] Start: 10-19-2024 Hospital admission [facility] Start: 10-19-2024 [facility] Start: 06-27-2024 End: 06-27-2024 Patient encounter procedure 06/27/2024 1:15 PM EDT Office Visit [facility] [address] [facility] [address] [place] [id number] Justin Martinez MD [address] [facility] [address] [place] [address] [facility] Start: 06-16-2024 COVID-19 Vaccine ( season) COVID-19 Vaccine ( season) [facility] Start: 06-16-2024 Influenza vaccination Influenz a Vaccine (#1) [facility] Start: 01-26-2024 [facility] Start: 01-26-2024 Immunofixation for Urine [facility] Start: 07-17-2020 Pneumococcal Vaccine : 65+ Years (3 of 3 - PPSV23 or PCV20) Pneumococcal Vaccine: 65+ Years (3 of 3 - PPSV23 or PCV20) [facility] Start: 12-16-2016 Fall Risk Screening Fall Risk Screen ing [facility] Start: 12-16-1969 Adult BMI Screening Adult BMI Screen ing [facility] Start: 1963 Depression Screening Depression Scre ening [facility] Start: 1963 Tobacco Screening Tobacco Screening [facility] Start: 1951 Screening for malign ant neoplasm of colon [facility] Albumin [Mass/volume ] in Serum or Plasma [facility] Albumin/Globulin ratio [facility] Anion gap [facility] Antibody measurement [facility] Basophils [#/volume] in Blood by Automated count [facility] Basophils/100 leukoc ytes in Blood by Automated count [facility] Electrophoresis: [id number] [facility] Electrophoresis: [id number] [facility] Electrophoresis: beta-globulin [facility] Electrophoresis: yony ma globulin [facility] Eosinophils/100 leuk ocytes in Blood by Automated count [facility] Erythrocyte distribu tion width [Ratio] by Automated count [facility] Erythrocytes [#/volu me] in Blood [facility] Globulin [Mass/volum e] in Serum [facility] Hematocrit [Volume F raction] of Blood [facility] Hemoglobin [Mass/vol ume] in Blood [facility] Homogenous nuclear A b pattern [Titer] in Serum [facility] IgA [Mass/volume] in Serum or Plasma [facility] IgG [Mass/volume] in Serum or Plasma [facility] IgM [Mass/volume] in Serum or Plasma [facility] Immunofixation for Urine [facility] Iron binding capacit y [Mass/volume] in Serum or Plasma [facility] Iron saturation [Mas s Fraction] in Serum or Plasma [facility] [place] light chains.f ree [Mass/volume] in Serum [facility] [place] light chains.f ree [Mass/volume] in Serum [facility] [place] light chains.free/Lambda light chains.free [Mass Ratio] in Serum [facility] [place] light chains.free/Lambda light chains.free [Mass Ratio] in Serum [facility] Lambda light chains. free [Mass/volume] in Serum or Plasma [facility] Lambda light chains. free [Mass/volume] in Serum or Plasma [facility] Leukocytes [#/volume ] corrected for nucleated erythrocytes in Blood by Automated coun [facility] Leukocytes [#/volume ] in Blood [facility] Lymphocytes [#/volum e] in Blood by Automated count [facility] Lymphocytes/100 leuk ocytes in Blood by Automated count [facility] MCH [Entitic mass] b y Automated count [facility] MCHC [Mass/volume] b y Automated count [facility] MCV [Entitic volume] by Automated count [facility] Monocytes [#/volume] in Blood by Automated count [facility] Monocytes/100 leukoc ytes in Blood by Automated count [facility] Myeloperoxidase Ab [Units/volume] in Serum by Immunoassay [facility] Natriuretic peptide. B prohormone N-Terminal [Mass/volume] in Serum or Plasma [facility] Neutrophil cytoplasm ic Ab.classic [Titer] in Serum by Immunofluorescence [facility] Neutrophils [#/volum e] in Blood by Automated count [facility] Neutrophils/100 leuk ocytes in Blood by Automated count [facility] Nuclear Ab [Titer] in Serum [facility] Nucleated erythrocyt es [Presence] in Blood by Automated count [facility] P-ANCA measurement [facility] Patient Education [facility] Work Phone: Patient referral [facility] Work Phone: Platelet mean volume [Entitic volume] in Blood by Automated count [facility] Platelets [#/volume] in Blood [facility] Protein [Mass/volume ] in Serum or Plasma [facility] Proteinase 3 Ab [Units/volume] in Serum by Immunoassay [facility] Renal function 1999 panel - Serum or Plasma [facility] Renal function 1999 panel - Serum or Plasma [facility] Renal function 1999 panel - Serum or Plasma [facility] Renal function 1999 panel - Serum or Plasma [facility] Reticulocytes [#/vol ume] in Blood [facility] Reticulocytes/100 erythrocytes in Blood [facility] Serum immunofixation [facility] Immunizations Immunization Date Immunization Notes Care Provider [facility] 08-14-2023 Influenza, Seasonal, Quadrivalent, Adjuvanted Justin Martinez MD Work Phone: [facility] 08-14-2023 influenza virus vacc ine, unspecified formulation Justin Martinez MD Work Phone: [facility] 07-25-2022 Influenza, High-dose Seasonal, Quadrivalent, Preservative Free Justin Martinez MD Work Phone: [facility] 09-01-2021 Pfizer-BioNTech COVI D-19 Vacc 30 MCG/0.3ML Intramuscular Suspension Justin Koa Work Phone: [place] [id number] DO Work Phone: 07-19-2021 Fluzone High-Dose Quadrivalent 0.7 ML Intramuscular Suspension Prefilled Syringe Justin Koa Work Phone: [place] [address] DO Work Phone: 01-05-2021 Pfizer-BioNTech COVI D-19 Vacc 30 MCG/0.3ML Intramuscular Suspension Justin Tiwari [place] Work Phone: [place] [address] DO Work Phone: 12-14-2020 Pfizer-BioNTech COVI D-19 Vacc 30 MCG/0.3ML Intramuscular Suspension Justin Koa Work Phone: [place] [address] DO Work Phone: 08-08-2020 Fluad Quadrivalent 0 .5 ML Intramuscular Prefilled Syringe Justin Koa Work Phone: [facility] 10-01-2019 zoster vaccine recombinant Brandonen M Juan Work Phone: [place] [address] DO Work Phone: 07-17-2019 pneumococcal conjuga te vaccine, 13 valent Justin Koa Work Phone: [place] [address] DO Work Phone: 07-17-2019 Seasonal trivalent influenza vaccine, adjuvanted, preservative free Justin Tiwari [place] Work Phone: [place] [address] DO Work Phone: 07-17-2019 zoster vaccine recombinant Brandonen M Juan Work Phone: [place] [address] DO Work Phone: 05-23-2019 tetanus toxoid, redu misty diphtheria toxoid, and acellular pertussis vaccine, adsorbed Rugen M [place] Work Phone: [facility] 250 DO Work Phone: 07-24-2018 influenza, high dose seasonal, preservative-free Rugen M [place] Work Phone: [facility] 250 DO Work Phone: 07-18-2017 influenza, injectabl e, quadrivalent, contains preservative Rugen M [place] Work Phone: [facility] 250 DO Work Phone: 07-13-2017 influenza, high dose seasonal, preservative-free Rugen Juan MD Work Phone: [facility] 07-18-2016 influenza, injectabl e, quadrivalent, preservative free Rugen M Juan Work Phone: [facility] 250 DO Work Phone: 07-17-2015 influenza, seasonal, injectable, preservative free Rugen M Juan Work Phone: [facility] 250 DO Work Phone: 07-30-2012 pneumococcal polysaccharide vaccine, 23 valent Rugen M [place] Work Phone: [facility] 250 DO Work Phone: Payers Date Payer Category Payer Private Health Insurance [employer] [id number] 2022 Unknown 2019 Managed Care Other (unspecified) [facility] [id number] 2016 Medicare [id number] 2016 Medicare [id number] 2016 Medicare [id number] 1959 Medicare [id number] 1959 Self-pay 1959 Unknown [id number] 1950 Unknown [id number] 2.16.840.1.133423.3.579.2 .593 1951 Unknown [id number] 2.16.840.1.795640.3.579.2 .593 1951 Unknown [id number] 2.16.840.1.629758.3.579.2 .593 1951 Unknown [id number] 2.16.840.1.723831.3.579.2 .593 1951 Unknown [id number] 2.16.840.1.461264.3.579.2 .356 1951 Unknown [id number] 2.16.840.1.992726.3.579.2 .1259 1951 Unknown [id number] 2.16.840.1.494059.3.579.2 .1259 1951 Unknown [id number] 2.16.840.1.551700.3.579.2 .1259 1951 Unknown [id number] 2.16.840.1.407998.3.579.2 .9 1950 Unknown [id number] 2.16.840.1.467535.3.579.2 .1258 1950 Unknown [id number] 2.16.840.1.937786.3.579.2 .1259 1950 Unknown [id number] 2.16.840.1.925934.3.579.2 .9 1950 Unknown [id number] 2.16.840.1.442538.3.579.2 .1286 1950 Unknown [id number] 2.16.840.1.843040.3.579.2 .1286 Unknown [id number] 2.16.840.1.490508.3.579.2 .593 Unknown [id number] 2.16.840.1.519202.3.579.2 .593 Unknown [id number] 2.16.840.1.263195.3.579.2 .531 Unknown [id number] 2.16.840.1.017401.3.579.2 .531 Unknown [id number] 2.16.840.1.190470.3.579.2 .531 Unknown [id number] 2.16.840.1.509098.3.579.2 .531 Unknown [id number] 2.16.840.1.802840.3.579.2 .531 Unknown [id number] 2.16.840.1.852876.3.579.2 .531 Unknown [id number] 2.16.840.1.956562.3.579.2 .531 Unknown [id number] 2.16.840.1.418267.3.579.2 .531 Unknown [id number] 2.16.840.1.076450.3.579.2 .531 Unknown [id number] 2.16.840.1.629023.3.579.2 .531 Social History Date Type Detail Facility Unknown if ever smoked [facility] [employer] Other Start: 11-26-2020 End: 07-16-[address] [facility] [employer] Other Start: 11-26-2020 End: 06-04-2024 Former smoker Former smoker -[facility] 250 DO Work Phone: Comment on above: Quit in 2014; 3 cups of coffee pola ly; Start: 1950 Sex Assigned At Male F [facility] Start: 02-22-2024 End: 11-20-2024 Tobacco smoking status NHIS Ex-smoker (finding) [facility] Start: 10-16-1969 End: 10-16-2014 History of tobacco use Current smoker [facility] Start: 10-16-1969 End: 10-16-2014 History of tobacco use Cigarette Smoker [facility] Start: 01-10-2020 End: 06-04-2024 Tobacco use and exposure Smokeless tobacco non-user [facility] Start: 07-16-2024 End: 10-21-2024 Alcoholic beverage intake Ex-drinker (finding) [facility] Start: 03-26-2023 Tobacco Comment Last smoked: 1 -5 years [facility] Start: 03-26-2023 Alcohol Comment Audit-C points :2, Caffeine: more than 4 cups per day [facility] Start: 1950 Sex assigned at Not on file N [facility] Start: 09-03-2024 End: 11-25-2024 Sex Male (finding) [facility] Start: 02-24-2020 Alcoholic beverage intake Current drinker of alcohol (finding) [facility] Start: 01-10-2020 Alcohol Comment social [facility] Start: 11-21-2024 SDOH Follow up SDOH Follow up [facility] Work Phone: Goals Date Patient Goal Desired Activity /State Personal health goal Functional Status Date Assessment Result Facility 11-25-2024 Functional status Patient at Baseline [facility] Work Phone: 11-20-2024 Functional status Patient Not at Baseline [facility] Work Phone: 10-20-2024 Functional status Patient at Baseline [facility] Work Phone: 10-19-2024 Functional status Functional Sta tus Comment SOB with exertion preventing independent ADL. ;Pt reports weight loss with diuresis and poor appetite and change in diet. [facility] Work Phone: Mental Status Date Assessment Result Facility 11-25-2024 Cognitive function Cognitive Sta tus Patient at Baseline [facility] Work Phone: 11-20-2024 Cognitive function Cognitive Sta tus Patient at Baseline [facility] Work Phone: 10-20-2024 Cognitive function Cognitive Sta tus Patient at Baseline [facility] Work Phone: Clinical Notes 04-13-2022 to 11-25-2024 Note Date & Type Note Facility 11-25-2024 Progress note Note Date/Time November 25, 2024 12:35pm [facility] [address] [place] [address] Cardiology Progress Note Signed Patient: Char Alatorre MR#: [id number] : 1950 Acct:[id number] Age/Sex: 73 / M Adm Date: 5 Loc: 4P Room: [address] [place] [address] Type: ADM IN Attending Dr: Prakash Keyes MD Copies to: ~ Date of Service: 11/25/2024 Subjective Principal diagnosis: Heart failure with reduced ejection fraction Interval history: Doing well. Euvolemic. Reports significant improvement in breathing. He is almost back to baseline. Set for discharge to rehab facility today. Exam Physical Exam Vital Signs: Temp Pulse Resp BP Pulse Ox O2 Del Method O2 Flow Rate 97.4 F L 50 L 18 105/57 L 98 Room Air 2 11/25/24 08:00 11/25/24 08:00 11/25/24 08:00 11/25/24 08:00 11/25/24 08:00 11/25/24 08:00 11/24/24 16:00 FiO2 30 11/24/24 22:26 Narrative: GEN: AAOx3. Neck: No JVD Lungs: Clear bilaterally Heart: Regular rate and rhythm. Normal S1 and S2. No murmurs or rubs appreciated. Abdomen: Soft, nontender, nondistended, bowel sounds present. Extremities: No BLE edema. Neuro: AAOx3. No focal deficits. Objective Labs 11/25/24 04:32 11/25/24 04:32 Labs: Laboratory Results - last 24 hr 11/21/24 11/24/24 11/25/24 05:00 15:26 04:32 Corrected WBC 5.0 Uncorrected WBC Count 5.0 RBC 4.01 Hgb 9.0 L Hct 29.2 L MCV 72.8 L MCH 22.5 L MCHC 31.0 L RDW 18.5 H Plt Count 147 L MPV 7.2 Neut % (Auto) 66.3 Lymph % (Auto) 19.1 Gates % (Auto) 13.3 Eos % (Auto) 0.5 Baso % (Auto) 0.8 Nucleat RBC Rel Count 0.2 Neut # (Auto) 3.3 Lymph # (Auto) 1.0 Gates # (Auto) 0.7 Eos # (Auto) 0.0 Baso # (Auto) 0.0 PHA Creatinine Clear 31.25 Sodium 135 L Potassium 3.8 3.3 L Chloride 95 L Carbon Dioxide 32.9 H Anion Gap 10.4 BUN 43 H Creatinine 2.30 H Est GFR (CKD-EPI) 29.433 Glucose 98 Calcium 10.0 PRANAY Screen Negative A&P - Cardiology (1) Acute systolic (congestive) heart failure: Code(s): I50.21 - Acute systolic (congestive) heart failure (2) Acute kidney injury superimposed on CKD: Code(s): N17.9 - Acute kidney failure, unspecified; N18.9 - Chronic kidney disease, unspecified (3) Chronic respiratory failure with hypoxia: Code(s): J96.11 - Chronic respiratory failure with hypoxia (4) CHRIS (obstructive sleep apnea): Code(s): G47.33 - Obstructive sleep apnea (adult) (pediatric) (5) Pulmonary hypertension: Code(s): I27.20 - Pulmonary hypertension, unspecified (6) CAD (coronary artery disease): Code(s): I25.10 - Atherosclerotic heart disease of [place] coronary artery without angina pectoris Plan Plan Acute decompensated HF. NYHA IV symptoms- resolved VIKY on CKD 3 - Cardiorenal syndrome. Possibly is his new baseline. Transaminitis Ischemic cardiomyopathy. EF 20-25% on 11/11/24 from [facility] s/p to PCI to RCA 05/2024 Sarcopenia HLD HTN Pulmonary HTN- Likely Precapillary from untreated CHRIS COPD PAD s/p aortobifem bypass, R renal artery stenosis and occluded PABLO. On Eliquis. Severe untreated CHRIS Limited echo 11/11/2024 at [facility]: Severely reduced EF 20-25% with diffuse global hypokinesis, borderline RV systolic function, moderate severe biatrial dilatation, heavily calcified aortic valve with reduced mobility. [facility] 05/17/2024: RA 5, PA 35/17 (25) PCWP 4, cardiac output 3.7/cardiac index 1.7 TPG 21 mmHg, DPG 13 mmHg, PVR 5.6 Wood units. Consistent with precapillary pulmonary hypertension. [facility] 05/22/2024: Left main: Patent, LAD: 40%, left circumflex minor irregularities,OM 280% proximal, OM 360% stenosis, RCA 80% proximal stenosis and 40% mid. Conclusion: Three-vessel coronary disease involving LAD, OM 2 and ostium branch of the RCA (80%) [facility] 05/29/2024: PCI to RCA with 4.0 x 15 mm Xience MINDY. Plans to continue Plavixand Eliquis for at least 1 year (May 2025) Echo 11/11/2024 at [facility]: Ejection fraction 20-25% which is changed from previous exam on 05/13/2024 with EF of 35-40%, mild eccentric left ventricular hypertrophy, diffuse global hypokinesis, severe dilatation of the left atrium, moderate dilatation of the right atrium, mildly thickened mitral valve with normal mobility, moderate to severely calcified aortic valve with reduced mobility, trivial pericardial effusion, normal right ventricular size with borderline systolic function. EKG 11/20/2024: Normal sinus rhythm with first-degree AV block ST-T changes suggestive of inferolateral ischemia Recommendations: - Pt is euvolemic today. Admission weight= 85.7kg; Discharge weight=76.1kg - Discharge meds: Lasix 40mg PO BID, Carvedilol 3.125mg BID, Eliquis 5 mg twice daily, Plavix 75 mg daily, spironolactone 25 mg daily, Lipitor 20mg daily, Zetia10 mg daily - Outpatient nuclear stress test once discharged from rehab. - Follow up with [facility] cardiology on 12/18/2024. Documented By: Odalys Spaulding MD 11/25/24 1130 Signed By: <Electronically signed by Odalys Spaulding MD> 11/25/24 1238 [facility] Work Phone: [phone]) 279-514802-10-2025 [place] [address] Cardiology Progress Note Signed Patient: Char Alatorre MR#: [id number] : 1950 Acct:[id number] Age/Sex: 73 / M Adm Date: 5 Loc: Room: [address] [place] [address] Type: ADM IN Attending Dr: Prakash Keyes MD Copies to: ~ Date of Service: 11/25/2024 Subjective Principal diagnosis: Heart failure with reduced ejection fraction Interval history: Doing well. Euvolemic. Reports significant improvement in breathing. He is almost back to baseline.Set for discharge to rehab facility today. Exam Physical Exam Vital Signs: Temp Pulse Resp BP Pulse Ox O2 Del Method O2 Flow Rate 97.4 F L 50 L 18 105/57 L 98 Room Air 2 11/25/24 08:00 11/25/24 08:00 11/25/24 08:00 11/25/24 08:00 11/25/24 08:00 11/25/24 08:00 11/24/24 16:00 FiO2 30 11/24/24 22:26 Narrative: GEN: AAOx3. Neck: No JVD Lungs: Clear bilaterally Heart: Regular rate and rhythm. Normal S1 and S2. No murmurs or rubs appreciated. Abdomen: Soft, nontender, nondistended, bowel sounds present. Extremities: No BLE edema. Neuro: AAOx3. No focal deficits. Objective Labs 11/25/24 04:32 02/10/25 04:32 Labs: Laboratory Results - last 24 hr 11/21/24 11/24/24 11/25/24 05:00 15:26 04:32 Corrected WBC 5.0 Uncorrected WBC Count 5.0 RBC 4.01 Hgb 9.0 L Hct 29.2 L MCV 72.8 L MCH 22.5 L MCHC 31.0 L RDW 18.5 H Plt Count 147 L MPV 7.2 Neut % (Auto) 66.3 Lymph % (Auto) 19.1 Gates % (Auto) 13.3 Eos % (Auto) 0.5 Baso % (Auto) 0.8 Nucleat RBC Rel Count 0.2 Neut # (Auto) 3.3 Lymph # (Auto) 1.0 Gates # (Auto) 0.7 Eos # (Auto) 0.0 Baso # (Auto) 0.0 PHA Creatinine Clear 31.25 Sodium 135 L Potassium 3.8 3.3 L Chloride 95 L Carbon Dioxide 32.9 H Anion Gap 10.4 BUN 43 H Creatinine 2.30 H Est GFR (CKD-EPI) 29.433 Glucose 98 Calcium 10.0 RPANAY Screen Negative A&P - Cardiology (1) Acute systolic (congestive) heart failure: Code(s): I50.21 - Acute systolic (congestive) heart failure (2) Acute kidney injury superimposed on CKD: Code(s): N17.9 - Acute kidney failure, unspecified; N18.9 - Chronic kidney disease, unspecified (3) Chronic respiratory failure with hypoxia: Code(s): J96.11 - Chronic respiratory failure with hypoxia (4) CHRIS (obstructive sleep apnea): Code(s): G47.33 - Obstructive sleep apnea (adult) (pediatric) (5) Pulmonary hypertension: Code(s): I27.20 - Pulmonary hypertension, unspecified (6) CAD (coronary artery disease): Code(s): I25.10 - Atherosclerotic heart disease of [place] coronary artery without angina pectoris Plan Plan Acute decompensated HF. NYHA IV symptoms- resolved VIKY on CKD 3 - Cardiorenal syndrome. Possibly is his new baseline. Transaminitis Ischemic cardiomyopathy. EF 20-25% on 11/11/24 from [facility] CAD s/p to PCI to RCA 05/2024 Sarcopenia HLD HTN Pulmonary HTN- Likely Precapillary from untreated CHRIS COPD PAD s/p aortobifem bypass, R renal artery stenosis and occluded PABLO. On Eliquis. Severe untreated CHRIS Limited echo 11/11/2024 at [facility]: Severely reduced EF 20-25% with diffuse global hypokinesis, borderline RV systolic function, moderate severe biatrial dilatation, heavily calcified aortic valve with reduced mobility. [facility] 05/17/2024: RA 5, PA 35/17 (25) PCWP 4, cardiac output 3.7/cardiac index 1.7 TPG 21 mmHg, DPG 13 mmHg, PVR 5.6 Wood units. Consistent with precapillary pulmonary hypertension. [facility] 05/22/2024: Left main: Patent, LAD: 40%, left circumflex minor irregularities,OM 280% proximal, OM 360% stenosis, RCA 80% proximal stenosis and 40% mid. Conclusion: Three-vessel coronary disease involving LAD, OM 2 and ostium branch of the RCA (80%) [facility] 05/29/2024: PCI to RCA with 4.0 x 15 mm Xience MINDY. Plans to continue Plavixand Eliquis for at least 1 year (May 2025) Echo 11/11/2024 at [facility]: Ejection fraction 20-25% which is changed from previous exam on 05/13/2024 with EF of 35-40%, mild eccentric left ventricular hypertrophy, diffuse global hypokinesis, severe dilatation of the left atrium, moderate dilatation of the right atrium, mildly thickened mitral valve with normal mobility, moderate to severely calcified aortic valve with reduced mobility, trivial pericardial effusion, normal right ventricular size with borderline systolic function. EKG 11/20/2024: Normal sinus rhythm with first-degree AV block ST-T changes suggestive of inferolateral ischemia Recommendations: - Pt is euvolemic today. Admission weight= 85.7kg; Discharge weight=76.1kg - Discharge meds: Lasix 40mg PO BID, Carvedilol 3.125mg BID, Eliquis 5 mg twice daily, Plavix 75 mgdaily, spironolactone 25 mg daily, Lipitor 20mg daily, Zetia10 mg daily - Outpatient nuclear stress test once discharged from rehab. - Follow up with [facility] cardiology on 12/18/2024. Documented By: Odalys Spaulding MD 11/25/24 1130 Signed By: 11/25/24 1238 [facility]02-09-2025 Discharge summary Author Turner Knott [facility] Note Date/Time November 24, 2024 4 :55pm [facility] [address] [place], [place] [id number] Discharge Summary Signed Patient: Char Alatorre MR#: [id number] : 1950 Acct:[id number] Age/Sex: 73 / M Adm Date: 5 Loc: Room: [address] [place] [address]: Turner Knott DO Copies to: DO Justin Deninson MD~ Providers Date of Discharge: 11/24/24 Discharging Provider: Turner Knott Primary Care Provider: Justin Martinez Consults: 11/20/24 14:16 Consult to Cardiology Routine Comment: Consulting Provider: [facility] - Cardiology Reason For Exam: CHF Has Provider Been Notified: Yes Date of Notification: 11/20/24 Time of Notification: 14:56 Consult to Nephrology Routine Comment: Consulting Provider: Kelly Gomez Has Provider Been Notified: Yes Date of Notification: 11/20/24 Time of Notification: 15:04 Reason for Consult: Acute Kidney Injury 11/20/24 15:58 PICC Line Insertion Consult Routine Has Provider Been Notified: Yes Date of Notification: 11/20/24 Time of Notification: 16:00 Duration of the PICC Line?: Less than 30 days Who was notified to place PICC?: Dynamic Access Provider OK with Midline?: No To Schedule PICC Line Placement call Special Procedures Ext. [phone], if no answer, leave a message. Your call will be returned BALDO. If it is during normal business hours (Mon-Fri 7 AM to 4 PM your call will be returned during the same day and the patient will be scheduled accordingly. If it is after hours your call will be returned the following day. 11/20/24 17:47 Consult to Dietitian Routine Comment: Reason for Consult: PO Supplement Eval&Order Discharge Diagnosis (1) Acute systolic (congestive) heart failure: (2) Acute kidney injury superimposed on CKD: (3) Chronic respiratory failure with hypoxia: (4) CHRIS (obstructive sleep apnea): (5) Pulmonary hypertension: (6) CAD (coronary artery disease): (7) Cardiorenal syndrome: Final Diagnosis Final Discharge Diagnosis: Acute on chronic (decompensated) heart failure with reduced ejection fraction. Acute kidney injury due to cardiorenal syndrome. Improved with diuresis. Chronic kidney disease stage III at baseline. Iron deficiency anemia. Repleted with 4 doses of 250 mg of Ferrlecit during this hospital stay. Coronary artery disease. Cognitive decline suggestive of progressive dementia. Recent diagnosis of severe obstructive sleep apnea. Patient did not tolerate attempts to get her to wear hospital BiPAP equipment during this hospital stay. Summary Hospital Course Hospital course: This is a 73-year-old man who is a group home facility in order to get stronger. He recently been hospitalized at the [facility] and had been given IV fluids for dehydration and acute kidney injury. He then was placed at the group home facility. He was visiting the gis software developer [facility] when they found him to be in decompensated congestive heart failure and had him directly admitted to the hospital. He has a complicated history of coronary disease, chronic systolic congestive heart failure, chronic kidney disease stage III, and a recent finding of severe obstructive sleep apnea. He was hospitalized. He had cardiology consultation. He had nephrology consultation. The patient did really well with diuresis with Lasix 40 mg IV twice daily assisted with 5 mg of metolazone per day for 2 or 3 days. With thishis leg edema improved. His pulmonary edema did improve. We did attempt to have him wear hospital BiPAP equipment while he was here but he was unable to tolerate this. By the end of the hospital stay his lower extremity edema was much improved. His breathing is also improved. His weights on the bed scale is improved from 84.6 kg down to 75.9 kg. His creatinine improved steadily from 3.04 down to 2.40 on the last hospital day and his BUN improved from 61 gradually down to 40 on the last hospital day. His baseline creatinine during the year of 2023 seemsto be between 1.8 to 2.0. Condition Condition at Discharge: Stable Status at Discharge Functional status at discharge: uses cane/walker Overall status at discharge: patient is progressing back to baseline Time Spent with Patient Time spent providing/coordinating discharge services (# min): 49 Discharge Plan Discharge Plan Patient Disposition: [facility] Facility Activity: No Activity Restriction Diet: Low-Sodium Additional Instructions: Oncology Technician Facility to manage care: - Full code - PT/OT eval and treat - Routine vital signs - Ensure plus daily with meal - Close monitoring of CHF: Weigh patient daily Check BMP Q Monday and x 8 Obtain follow up with Cardiology with Odalys Spaulding Really work on having the patient start using the sleep apnea machine every night for his recently diagnosed severe obstructive sleep apnea. Obtain neurology office follow up and a referral to Neuropsychology. Prescriptions: New furosemide 40 mg Tablet 40 mg PO BID@0800,1600 Qty: 0 0RF sennosides [Senna Lax] 8.6 mg Tablet 8.6 mg PO QPM Qty: 0 0RF acetaminophen [Tylenol] 325 mg Tablet 650 mg PO Q4H PRN (Reason: Pain Scale 1 - 3 or fever) Qty: 0 0RF spironolactone 25 mg Tablet 25 mg PO DAILY Qty: 0 0RF nortriptyline 25 mg Capsule 25 mg PO QPM Qty: 0 0RF ascorbic acid (vitamin C) [Vitamin C] 500 mg Tablet 500 mg PO BID.WITH.BFAST.LUNCH Qty: 0 0RF nitroglycerin 0.4 mg Tablet, Sublingual 0.4 mg sublingual Q5M PRN (Reason: Chest Pain) Qty: 0 0RF docusate sodium 100 mg Capsule 100 mg PO BID Qty: 0 0RF Minerin Creme Cream 1 applic topical BID Qty: 0 0RF multivitamin with folic acid [Thera] 400 mcg Tablet 1 tab PO DAILY Qty: 0 0RF potassium chloride 10 mEq capsule, extended release 10 meq PO DAILY 30 Days Qty: 30 0RF Continued cyanocobalamin (vitamin B-12) 1,000 mcg/mL solution 1,000 mcg IM .monthly Metamucil Fiber Singles 3.4 gram Powder In Packet 1 packet PO DAILY 30 Days Qty: 30 0RF ferrous sulfate 325 mg (65 mg iron) tablet 325 mg PO Q48HR Qty: 45 1RF carvedilol 3.125 mg tablet 3.125 mg PO BID atorvastatin 20 mg tablet 20 mg PO DAILY ezetimibe [Zetia] 10 mg tablet 10 mg PO DAILY Eliquis 5 mg tablet 5 mg PO BID cholecalciferol (vitamin D3) 50 mcg (2,000 unit) capsule 2,000 unit PO DAILY clopidogrel [Plavix] 75 mg tablet 75 mg PO DAILY methylcellulose (with sugar) 2 gram/19 gram powder 1 tbsp PO DAILY Discontinued furosemide 20 mg tablet 20 mg PO DAILY nortriptyline 25 mg capsule 50 mg PO QHS Follow Up: Odalys Spaulding MD [Active Staff] - 12/18/24 2:00 pm (Follow-up with Cardiology. ) Donna Villarreal MD [Contract Physician] - 12/31/24 10:00 am (Follow-up with Pulmonology as previously scheduled. ) Continuity of Care Document Health Concerns: A [facility] screening has identified you as FRAIL or AT RISK FOR FRAILTY. This puts you at a higher risk for infection, illness, falls,and other injuries. Here are four ways to help you reduce your risk of frailty: 1. IDENTIFY EARLY SIGNS OF FRAILTY ? Discuss contributing factors and concerns with your doctor 2. BE ACTIVE ? Walking and light strengthening exercises will help reduce weakness 3. EAT WELL ? Aim for three healthy meals a day that are high in protein 4. THINK POSITIVE ? Keep your mind active by being sociable and continuing to learn References: Stay Strong: Four Ways to Beat the Frailty Risk [email or web address]/[email or web address]-usr-ordelpzjef/jegh-boggyf-rtxs- qmmy-ix-cebn-psv-xfqqpqc-ybda Exam Physical Exam Vital Signs: Temp Pulse Resp BP Pulse Ox O2 Del Method O2 Flow Rate 97.5 F L 96 16 108/74 99 Nasal Cannula 2 11/24/24 16:00 11/24/24 16:00 11/24/24 16:00 11/24/24 16:00 11/24/24 16:00 11/24/24 16:11/24/24 16:00 FiO2 30 11/22/24 00:17 Narrative: General: Reclining in a bedside chair. No family in the room. A mild amount of pleasant dementia is present today. Pulmonary: Clear to auscultation bilaterally without any wheezing. Mildly diminished in the bases bilaterally. GI: Abdomen soft, normal bowel sounds to auscultation, previous abdominal bloating is now much improved. Cardiac: Normal sinus rhythm on the monitor. No rubs gallops to auscultation. Lower extremities: About 80% of his edema in the lower extremities is gone. No swelling or knots or cords in the calves bilaterally. Diagnostic Studies Completed and Pending Studies Pending studies at discharge: 11/21/24 05:00 ECG 12 lead ECG IN AM PRANAY Antinuclear Antibodies IN AM ANCA Profile (ANCA+MPO+PR3) IN AM Serum Free Light Chains [Free K+L LT Chains, Qn, S] IN AM 11/25/24 05:00 Basic Metabolic Panel [CHEM] IN AM Complete Blood Count Auto Diff IN AM 11/26/24 05:00 Basic Metabolic Panel [CHEM] IN AM Complete Blood Count Auto Diff IN AM 11/27/24 05:00 Basic Metabolic Panel [CHEM] IN AM Complete Blood Count Auto Diff IN AM 11/28/24 05:00 Basic Metabolic Panel [CHEM] IN AM Complete Blood Count Auto Diff IN AM 11/29/24 05:00 Basic Metabolic Panel [CHEM] IN AM Complete Blood Count Auto Diff IN AM 11/30/24 05:00 Basic Metabolic Panel [CHEM] IN AM Complete Blood Count Auto Diff IN AM Labs on day of discharge: 11/24/24 15:26: Potassium 3.8 11/24/24 05:30: Corrected WBC 5.2, Uncorrected WBC Count 5.2, RBC 3.92, Hgb 8.8 L, Hct 27.9 L, MCV 71.1 L, MCH 22.5 L, MCHC 31.6 L, RDW 19.0 H, Plt Count 152, MPV 6.9, Neut % (Auto) 65.2, Lymph % (Auto) 18.6, Gates % (Auto) 14.9, Eos % (Auto) 0.7, Baso % (Auto) 0.6, Nucleat RBC Rel Count 0.2, Neut # (Auto) 3.4, Lymph # (Auto) 1.0, Gates # (Auto) 0.8, Eos # (Auto) 0.0, Baso # (Auto) 0.0, PHA Creatinine Clear 29.87, Sodium 135 L, Potassium 3.0 L, Chloride 94 L, Carbon Dioxide 34.4 H, Anion Gap 9.6, BUN 40 H, Creatinine 2.40 H, Est GFR (CKD-EPI) 27.967, Glucose 109 H, Calcium 9.6, Magnesium 1.9 11/23/24 16:00: Potassium 3.7 11/21/24 05:00: PRANAY Screen Negative Documented By: Turner Knott DO 1640 Signed By: <Electronically signed by Turner Knott DO> 11/24/24 6153 [facility] Work Phone: [phone] 301-465502-09-[address] [address] Discharge Summary Signed Patient: Char Alatorre MR#: [id number] : 1950 Acct:[id number] Age/Sex: 73 / M Adm Date: 5 Loc: Room: [address] [place] [address]: Turner Knott DO Copies to: DO Justin Dennison MD~ Providers Date of Discharge: 11/24/24 Discharging Provider: Turner Knott Primary Care Provider: Justin Martinez Consults: 11/20/24 14:16 Consult to Cardiology Routine Comment: Consulting Provider: [facility] - Cardiology Reason For Exam: CHF Has Provider Been Notified: Yes Date of Notification: 11/20/24 Time of Notification: 14:56 Consult to Nephrology Routine Comment: Consulting Provider: Kelly Gomez Has Provider Been Notified: Yes Date of Notification: 11/20/24 Time of Notification: 15:04 Reason for Consult: Acute Kidney Injury 11/20/24 15:58 PICC Line Insertion Consult Routine Has Provider Been Notified: Yes Date of Notification: 11/20/24 Time of Notification: 16:00 Duration of the PICC Line?: Less than 30 days Who was notified to place PICC?: Dynamic Access Provider OK with Midline?: No To Schedule PICC Line Placement call Special Procedures Ext. [phone], if no answer, leave a message. Your call will be returned BALDO. If it is during normal business hours (Mon-Fri 7 AM to 4 PM your call will be returned during the same day and the patient will be scheduled accordingly. If it is after hoursyour call will be returned the following day. 11/20/24 17:47 Consult to Dietitian Routine Comment: Reason for Consult: PO Supplement Eval&Order Discharge Diagnosis (1) Acute systolic (congestive) heart failure: (2) Acute kidney injury superimposed on CKD: (3) Chronic respiratory failure with hypoxia: (4) CHRIS (obstructive sleep apnea): (5) Pulmonary hypertension: (6) CAD (coronary artery disease): (7) Cardiorenal syndrome: Final Diagnosis Final Discharge Diagnosis: Acute on chronic (decompensated) heart failure with reduced ejection fraction. Acute kidney injury due to cardiorenal syndrome. Improved with diuresis. Chronic kidney disease stage III at baseline. Iron deficiency anemia. Repleted with 4 doses of 250 mg of Ferrlecit during this hospital stay. Coronary artery disease. Cognitive decline suggestive of progressive dementia. Recent diagnosis of severe obstructive sleep apnea. Patient did not tolerate attempts to get her [facility] BiPAP equipment during this hospital stay. Summary Hospital Course Hospital course: This is a 73-year-old man who is a group home facility in order to get stronger. He recently been hospitalized at the [facility] and had been given IV fluids for dehydration and acute kidney injury. He then was placed at the group home facility. He was visiting the gis software developer here in town when they found him to be in decompensated congestive heart failure and had him directly admitted to the hospital. He has a complicated history of coronary disease, chronic systolic congestive heart failure, chronic kidney disease stage III, and a recent finding of severe obstructive sleep apnea. He was hospitalized. He had cardiology consultation. He had nephrology consultation. The patient did really well with diuresis with Lasix 40 mg IV twice daily assisted with 5 mg of metolazone per dayfor 2 or 3 days. With thishis leg edema improved. His pulmonary edema did improve. We did attempt to have him wear hospital BiPAP equipment while he was here but he was unable to tolerate this. By the end of the hospital stay his lower extremity edema was much improved. His breathing is also improved. His weights on the bed scale is improved from 84.6 kg down to 75.9 kg. His creatinine improved steadily from 3.04 down to 2.40 on the last hospital day and his BUN improved from 61 graduallydown to 40 on the last hospital day. His baseline creatinine during the year of 2023 seemsto be between 1.8 to 2.0. Condition Condition at Discharge: Stable Status at Discharge Functional status at discharge: uses cane/walker Overall status at discharge: patient is progressing back to baseline Time Spent with Patient Time spent providing/coordinating discharge services (# min): 49 Discharge Plan Discharge Plan Patient Disposition: [facility] Facility Activity: No Activity Restriction Diet: Low-Sodium Additional Instructions: Snf Facility to manage care: - Full code - PT/OT eval and treat - Routine vital signs - Ensure plus daily with meal - Close monitoring of CHF: Weigh patient daily Check BMP Q Monday and x 8 Obtain follow up with Cardiology with Odalys Spaulding Really work on having the patient start using the sleep apnea machine every night for his recently diagnosed severe obstructive sleep apnea. Obtain neurology office follow up and a referral to Neuropsychology. Prescriptions: New furosemide 40 mg Tablet 40 mg PO BID@0800,1600 Qty: 0 0RF sennosides [Senna Lax] 8.6 mg Tablet 8.6 mg PO QPM Qty: 0 0RF acetaminophen [Tylenol] 325 mg Tablet 650 mg PO Q4H PRN (Reason: Pain Scale 1 - 3 or fever) Qty: 0 0RF spironolactone 25 mg Tablet 25 mg PO DAILY Qty: 0 0RF nortriptyline 25 mg Capsule 25 mg PO QPM Qty: 0 0RF ascorbic acid (vitamin C) [Vitamin C] 500 mg Tablet 500 mg PO BID.WITH.BFAST.LUNCH Qty: 0 0RF nitroglycerin 0.4 mg Tablet, Sublingual 0.4 mg sublingual Q5M PRN (Reason: Chest Pain) Qty: 0 0RF docusate sodium 100 mg Capsule 100 mg PO BID Qty: 0 0RF Minerin Creme Cream 1 applic topical BID Qty: 0 0RF multivitamin with folic acid [Thera] 400 mcg Tablet 1 tab PO DAILY Qty: 0 0RF potassium chloride 10 mEq capsule, extended release 10 meq PO DAILY 30 Days Qty: 30 0RF Continued cyanocobalamin (vitamin B-12) 1,000 mcg/mL solution 1,000 mcg IM .monthly Metamucil Fiber Singles 3.4 gram Powder In Packet 1 packet PO DAILY 30 Days Qty: 30 0RF ferrous sulfate 325 mg (65 mg iron) tablet 325 mg PO Q48HR Qty: 45 1RF carvedilol 3.125 mg tablet 3.125 mg PO BID atorvastatin 20 mg tablet 20 mg PO DAILY ezetimibe [Zetia] 10 mg tablet 10 mg PO DAILY Eliquis 5 mg tablet 5 mg PO BID cholecalciferol (vitamin D3) 50 mcg (2,000 unit) capsule 2,000 unit PO DAILY clopidogrel [Plavix] 75 mg tablet 75 mg PO DAILY methylcellulose (with sugar) 2 gram/19 gram powder 1 tbsp PO DAILY Discontinued furosemide 20 mg tablet 20 mg PO DAILY nortriptyline 25 mg capsule 50 mg PO QHS Follow Up: Odalys Spaulding MD [Active Staff] - 12/18/24 2:00 pm (Follow-up with Cardiology. ) Donna Villarreal MD [Contract Physician] - 12/31/24 10:00 am (Follow-up with Pulmonology as previously scheduled. ) Continuity of Care Document Health Concerns: A [facility] screening has identified you as FRAIL or AT RISK FOR FRAILTY. This puts you at a higher risk for infection, illness, falls,and other injuries. Here are four ways to help you reduce your risk of frailty: 1. IDENTIFY EARLY SIGNS OF FRAILTY ? Discuss contributing factors and concerns with your doctor 2. BE ACTIVE ? Walking and light strengthening exercises will help reduce weakness 3. EAT WELL ? Aim for three healthy meals a day that are high in protein 4. THINKPOSITIVE ? Keep your mind active by being sociable and continuing to learn References: Stay Strong:Four Ways to Beat the Frailty Risk [email or web address]-dai-txxquuqlap/st nu-yefsvy-lnzo- dhza-sv-rjbv-ans-fmiguyy-nwkp Exam Physical Exam Vital Signs: Temp Pulse Resp BP Pulse Ox O2 Del Method O2 Flow Rate 97.5 F L 96 16 108/74 99 Nasal Cannula 2 11/24/24 16:00 11/24/24 16:11/24/24 16:11/24/24 16:00 11/24/24 16:11/24/24 16:11/24/24 16:00 FiO2 30 11/22/24 00:17 Narrative: General: Reclining in a bedside chair. No family in the room. A mild amount of pleasant dementia ispresent today. Pulmonary: Clear to auscultation bilaterally without any wheezing. Mildly diminished in the bases bilaterally. GI: Abdomen soft, normal bowel sounds to auscultation, previous abdominal bloating is now much improved. Cardiac: Normal sinus rhythm on the monitor. No rubs gallops to auscultation. Lower extremities: About 80% of his edema in the lower extremities is gone. No swelling or knots orcords in the calves bilaterally. Diagnostic Studies Completed and Pending Studies Pending studies at discharge: 11/21/24 05:00 ECG 12 lead ECG IN AM PRANAY Antinuclear Antibodies IN AM ANCA Profile (ANCA+MPO+PR3) IN AM Serum Free Light Chains [Free K+L LT Chains, Qn, S] IN AM 11/25/24 05:00 Basic Metabolic Panel [CHEM] IN AM Complete Blood Count Auto Diff IN AM 11/26/24 05:00 Basic Metabolic Panel [CHEM] IN AM Complete Blood Count Auto Diff IN AM 11/27/24 05:00 Basic Metabolic Panel [CHEM] IN AM Complete Blood Count Auto Diff IN AM 11/28/24 05:00 Basic Metabolic Panel [CHEM] IN AM Complete Blood Count Auto Diff IN AM 11/29/24 05:00 Basic Metabolic Panel [CHEM] IN AM Complete Blood Count Auto Diff IN AM 11/30/24 05:00 Basic Metabolic Panel [CHEM] IN AM Complete Blood Count Auto Diff IN AM Labs on day of discharge: 11/24/24 15:26: Potassium 3.8 11/24/24 05:30: Corrected WBC 5.2, Uncorrected WBC Count 5.2, RBC 3.92, Hgb 8.8 L, Hct 27.9 L, MCV 71.1 L, MCH 22.5 L, MCHC 31.6 L, RDW 19.0 H, Plt Count 152, MPV 6.9, Neut % (Auto) 65.2, Lymph % (Auto) 18.6, Gates % (Auto) 14.9, Eos % (Auto) 0.7, Baso % (Auto) 0.6, Nucleat RBC Rel Count 0.2, Neut #(Auto) 3.4, Lymph # (Auto) 1.0, Gates # (Auto) 0.8, Eos # (Auto) 0.0, Baso # (Auto) 0.0, PHA Creatinine Clear 29.87, Sodium 135 L, Potassium 3.0 L, Chloride 94 L, Carbon Dioxide 34.4 H, Anion Gap 9.6,BUN 40 H, Creatinine 2.40 H, Est GFR (CKD-EPI) 27.967, Glucose 109 H, Calcium 9.6, Magnesium 1.9 11/23/24 16:00: Potassium 3.7 11/21/24 05:00: PRANAY Screen Negative Documented By: Turner Knott DO 1640 Signed By: 11/24/24 1655 [facility]02-09-2025 Progress note Author Lilian Hahn [facility] Note Date/Time November 24, 2024 1 :07pm [facility] [address] [place] [address] Cardiology Progress Note Signed Patient: Char Alatorre MR#: [id number] : 1950 Acct:[id number] Age/Sex: 73 / M Adm Date: 5 Loc: Room: [address] [place] [address] Type: ADM IN Attending Dr: Turner Knott DO Copies to: ~ Date of Service: 11/24/2024 Subjective Principal diagnosis: Heart failure with reduced ejection fraction Interval history: Patient feels better. No edema. Almost back to his baseline Exam Physical Exam Vital Signs: Temp Pulse Resp BP Pulse Ox O2 Del Method O2 Flow Rate 97.5 F L 95 16 123/71 99 Nasal Cannula 2 11/24/24 08:00 11/24/24 12:00 11/24/24 12:00 11/24/24 12:00 11/24/24 12:00 11/24/24 12:00 11/24/24 12:00 FiO2 30 11/22/24 00:17 Const General: cooperative Neck Neck: supple Lymphatic: no lymphadenopathy noted Resp Effort & Inspection: normal respiratory effort Auscultation: clear to auscultation bilaterally Cardio Palpation: normal PMI Rate: regular rate Rhythm: regular rhythm Heart Sounds: S1 normal and S2 normal Skin General: dry skin Extrem General: full ROM and no clubbing, cyanosis or edema Objective Labs 11/24/24 05:30 11/24/24 05:30 Labs: Laboratory Results - last 24 hr 11/23/24 11/24/24 16:00 05:30 Corrected WBC 5.2 Uncorrected WBC Count 5.2 RBC 3.92 Hgb 8.8 L Hct 27.9 L MCV 71.1 L MCH 22.5 L MCHC 31.6 L RDW 19.0 H Plt Count 152 MPV 6.9 Neut % (Auto) 65.2 Lymph % (Auto) 18.6 Gates % (Auto) 14.9 Eos % (Auto) 0.7 Baso % (Auto) 0.6 Nucleat RBC Rel Count 0.2 Neut # (Auto) 3.4 Lymph # (Auto) 1.0 Gates # (Auto) 0.8 Eos # (Auto) 0.0 Baso # (Auto) 0.0 PHA Creatinine Clear 29.87 Sodium 135 L Potassium 3.7 3.0 L Chloride 94 L Carbon Dioxide 34.4 H Anion Gap 9.6 BUN 40 H Creatinine 2.40 H Est GFR (CKD-EPI) 27.967 Glucose 109 H Calcium 9.6 Magnesium 1.9 A&P - Cardiology (1) Acute systolic (congestive) heart failure: Code(s): I50.21 - Acute systolic (congestive) heart failure (2) Acute kidney injury superimposed on CKD: Code(s): N17.9 - Acute kidney failure, unspecified; N18.9 - Chronic kidney disease, unspecified (3) Chronic respiratory failure with hypoxia: Code(s): J96.11 - Chronic respiratory failure with hypoxia (4) CHRIS (obstructive sleep apnea): Code(s): G47.33 - Obstructive sleep apnea (adult) (pediatric) (5) Pulmonary hypertension: Code(s): I27.20 - Pulmonary hypertension, unspecified (6) CAD (coronary artery disease): Code(s): I25.10 - Atherosclerotic heart disease of [place] coronary artery without angina pectoris Plan 1. Continue present medical regimen 2. Gradual up titration of heart failure therapy 3. Considering adding hydralazine nitrate to optimize vasodilator therapy considering the patient appears to have component of cardiorenal syndrome might not be a good candidate for RAAS inhibition Documented By: Lilian Hahn MD 11/24/241305 Signed By: <Electronically signed by MD Lilian Hahn> 11/24/24 1306 [facility] Work Phone: [phone] 216-961802-09-2025 Progress note Author Magy Cummings [facility] Note Date/Time November 24, 2024 1 2:27pm [facility] [address] [place] [address] Nephrology Progress Note Signed Patient: Char Alatorre MR#: [id number] : 1950 Acct:[id number] Age/Sex: 73 / M Adm Date: 5 Loc: Room: 9C9533-4 Type: ADM IN Attending Dr: Turner Knott DO Copies to: ~ Date of Service: 11/24/2024 Subjective Subjective Narrative: This is a 73-year-old male with medical history of CKD, HFrEF, CAD s/p PCI, PAD s/p aortic bifemoral bypass, DM, HTN, HLD, pulmonary hypertension and CHRIS for increased shortness of breath and leg swelling. Patient was recently admitted at [facility] after a mechanical fall. He was found to have VIKY and his dose of diuretics were held and was given fluid resuscitation. He had echocardiogram during hospitalization which showed a worsening cardiac function with EF 20 to 25%. Patient was admitted at [facility] earlier this month for shortness of breath due to the CHF exacerbation. He was diuresis with IV Lasix but upon discharge due to his worsening renal function hewas advised to hold Lasix and take it only if he gains weight. Patient has a known history of CKD with baseline serum creatinine 2 to 2.1 mg/dL and follows in our office for his CKD care. Patient on admission was found to have worsening renal function with elevated serum creatinine 3.0 mg/dL above his baseline. Nephrology is consulted for VIKY with CKD management. He had a bladder scan which showed 260 mL postvoid residual urinary volume. Benavidez catheter was placement after my recommendation. Interim history He has VIKY due to the cardiorenal syndrome. Renal function improving with diuresis. He is now transition to oral Lasix with spironolactone. He has a hypokalemia due to the diuretic induced renal magnesium wasting. His potassium has been repleted IV and orally. Patient was seen and examined bedside. Denies any chest pain palpitation cough nausea vomit diarrhea shortness of breath. Patient fell last night and had thoracolumbar CT spine for back pain. Exam Physical Exam Vital Signs: Temp Pulse Resp BP Pulse Ox O2 Del Method O2 Flow Rate 97.5 F L 95 16 123/71 99 Nasal Cannula 2 11/24/24 08:00 11/24/24 12:11/24/24 12:00 11/24/24 12:00 11/24/24 12:00 11/24/24 12:00 11/24/24 12:00 FiO2 30 11/22/24 00:17 Narrative: General: Appears comfortable and not in distress Heart: S1-S2, no rub Lung: Bilateral air entry, no wheezing or crackles Abdomen: Soft, positive bowel sounds Extremities: No edema, no cyanosis Head: Atraumatic, normocephalic Ear: No gross hearing Deficit or external ear redness Eyes: No pallor or redness Neck: NO JVD or visible mass Skin: No rashes , warm to touch [employer]N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: Awake,Alert, following simple command Musculoskeletal: No swelling or limitation of movement of the large joints Psychiatric: Cooperative, normal mood and affect Objective Intake and Output I&O: Intake & Output 11/21/24 11/22/24 11/23/24 11/24/24 23:59 23:59 23:59 23:59 Intake Total 1010 / 1010 2310 / 2610 1820 / 1820 350 / 350 Output Total 4725 / 4725 4925 / 5425 1905 / 2180 775 / 775 Balance -3715 / -3715 -2615 / -2815 -85 / -360 -425 / -425 Weight 83.5 kg 78.3 kg 77.6 kg 75.9 kg Meds and Allergies Meds: Active Medications Acetaminophen (Acetaminophen 325 Mg Tablet) 650 mg PO Q4H PRN PRN Reason: Pain Scale 1 - 3 or fever Stop: 11/20/25 14:15 Last Admin: 11/21/24 08:33 Dose: 650 mg Apixaban (Apixaban 5 Mg Tablet) 5 mg PO BID [facility] Stop: 11/20/25 20:59 Last Admin: 11/24/24 09:36 Dose: 5 mg Ascorbic Acid (Ascorbic Acid 500 Mg Tablet) 500 mg PO BID.WITH.BFAST.LUNCH [facility]ERNIE Stop: 11/24/25 07:59 Last Admin: 11/24/24 12:15 Dose: 500 mg Atorvastatin Calcium (Atorvastatin 20 Mg Tablet) 20 mg PO DAILY BERNIE Stop: 11/21/25 08:59 Last Admin: 11/24/24 09:35 Dose: 20 mg Carvedilol (Carvedilol 3.125 Mg Tablet) 3.125 mg PO BID.WITH.MEALS [facility] Stop: 11/22/25 16:59 Last Admin: 11/24/24 09:35 Dose: 3.125 mg Clopidogrel Bisulfate (Clopidogrel Bisulfate 75 Mg Tablet) 75 mg PO DAILY [facility] Stop: 11/21/25 08:59 Last Admin: 11/24/24 09:36 Dose: 75 mg Docusate Sodium (Docusate 100 Mg Capsule) 100 mg PO BID BERNIE Stop: 11/21/25 20:59 Last Admin: 11/24/24 09:35 Dose: 100 mg Ezetimibe (Ezetimibe 10 Mg Tablet) 10 mg PO DAILY BERNIE Stop: 11/21/25 08:59 Last Admin: 11/24/24 09:36 Dose: 10 mg Furosemide (Furosemide 40 Mg Tablet) 40 mg PO BID@0800,1600 [facility] Stop: 11/22/25 15:59 Last Admin: 11/24/24 09:36 Dose: 40 mg Potassium Chloride 40 meq/ (Sodium Chloride) 520 mls @ 130 mls/hr IV ONCE ONE Stop: 11/24/24 13:29 Last Admin: 11/24/24 09:46 Dose: 130 mls/hr Multi-Ingredient Cream (Lanolin Alcohol/Mo/W.Pet/[place] (Minerin) 454 Gm Jar) 1 applic TOPICAL BID [facility] Stop: 11/21/25 12:59 Last Admin: 11/24/24 09:38 Dose: Not Given Multivitamins (Multivitamin 1 Tab Tablet) 1 tab PO DAILY [facility] Stop: 11/21/25 10:44 Last Admin: 11/24/24 09:35 Dose: 1 tab Nitroglycerin (Nitroglycerin 0.4 Mg Tab.Subl) 0.4 mg SUBLINGUAL Q5M PRN PRN Reason: Chest Pain Stop: 11/20/25 14:15 Nortriptyline HCl (Nortriptyline 25 Mg Capsule) 25 mg PO QPM [facility] Stop: 11/21/25 20:59 Last Admin: 11/23/24 22:05 Dose: 25 mg Psyllium Hydrophilic Mucilloid (Psyllium Husk 3.4 Gm Packet) 1 packet PO BID B[facility]IE Stop: 11/22/25 20:59 Last Admin: 11/24/24 09:38 Dose: 1 packet Sennosides (Sennosides 8.6 Mg Tablet) 8.6 mg PO QPM B[facility]IE Stop: 11/21/25 20:59 Last Admin: 11/23/24 22:05 Dose: 8.6 mg Sodium Chloride (Sodium Chloride 0.9 % 10 Ml Syringe) 0 ml IV-PUSH PRN PRN PRN Reason: Flush Stop: 11/20/25 14:15 Last Admin: 11/21/24 15:16 Dose: 10 ml Spironolactone (Spironolactone 25 Mg Tablet) 25 mg PO DAILY [facility]IE Stop: 11/22/25 08:59 Last Admin: 11/24/24 09:36 Dose: 25 mg Vitamin D (Cholecalciferol 25 Mcg (1,000 Units) Tablet) 50 mcg PO DAILY [facility] Stop: 11/21/25 08:59 Last Admin: 11/24/24 09:35 Dose: 50 mcg Allergies No Known Allergies Allergy (Verified 11/20/24 10:02) Results - Nephrology Labs 11/24/24 05:30 11/24/24 05:30 Labs: 11/24/24 05:30 BUN 40 H Creatinine 2.40 H Radiology Impressions Impressions - last 24 hours: Impressions Thoracic Spine CT 11/23/24 20:45 IMPRESSION: Thoracic spine: No acute bony abnormality or malalignment. There is a remote compression deformity at T7. Lumbar spine: No acute bony abnormality or malalignment. Degenerative changes are noted as above. Additional chronic findings are noted as described above. Impression dictated by: Char Larios M.D.11/24/2024 9:15 AM Dictation Location: [place] [address] Any impression(s) listed above is documentation that was entered by the reading physician into a diagnostic report(s) for Char Alatorre. I have reviewed the report(s) and am incorporating any findings in the treatment plan of this patient where applicable. A&P - Nephrology Assessment/Plan (1) Acute kidney injury superimposed on CKD: Assessment/Problem Details: He has an VIKY on CKD likely due to the cardiorenal syndrome. His renal functionhas been improving with diuresis. He is making adequate urine output. 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 His renal function has been declining due to the progression of the CKD. His baseline serum creatinine is around 2 to 2.1 mg/dL. He has atrophic right kidney. 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 He appears to be euvolemic. (4) Iron deficiency anemia: Assessment/Problem Details: Patient has anemia due to the CKD and iron deficiency. (5) Acute systolic (congestive) heart failure: Assessment/Problem Details: Patient was admitted for shortness of breath and increased leg swelling. He haselevated BNP and his most recent echocardiogram showed EF 20 to 25%. Plan * Continue oral Lasix 40 g p.o. twice daily * Will give potassium chloride 40 mEq p.o. x 1 dose and potassium chloride 40 mEq IV x 1 dose. Will repeat serum potassium this afternoon. * Continue spironolactone 25 mg PO daily. * Will give Procrit 20,000 subcu x 1 dose. Patient has finished the course of ferric gluconate 250 mg IV daily x 4 doses. * Will follow the result of PRANAY and ANCA. 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 * Check renal function daily and monitor input output * Continue workup for cardiomyopathy as per cardiology. * Documented By: Magy Cummings MD 11/24/24 1223 Signed By: <Electronically signed by Magy Cummings MD> 11/24/24 1227 [facility] Work Phone: 1(655) [phone] [place] [address] Cardiology Progress Note Signed Patient: Char Alatorre MR#: [id number] : 1950 Acct:[id number] Age/Sex: 73 / M Adm Date: 5 Loc: 4 Room: [address] [place] [address] Type: ADM IN Attending Dr: Turner Knott DO Copies to: ~ Date of Service: 11/24/2024 Subjective Principal diagnosis: Heart failure with reduced ejection fraction Interval history: Patient feels better. No edema. Almost back to his baseline Exam Physical Exam Vital Signs: Temp Pulse Resp BP Pulse Ox O2 Del Method O2 Flow Rate 97.5 F L 95 16 123/71 99 Nasal Cannula 2 11/24/24 08:00 11/24/24 12:00 11/24/24 12:00 11/24/24 12:00 11/24/24 12:00 11/24/24 12:00 11/24/24 12:00 FiO2 30 11/22/24 00:17 Const General: cooperative Neck Neck: supple Lymphatic: no lymphadenopathy noted Resp Effort & Inspection: normal respiratory effort Auscultation: clear to auscultation bilaterally Cardio Palpation: normal PMI Rate: regular rate Rhythm: regular rhythm Heart Sounds: S1 normal and S2 normal Skin General: dry skin Extrem General: full ROM and no clubbing, cyanosis or edema Objective Labs 11/24/24 05:30 11/24/24 05:30 Labs: Laboratory Results - last 24 hr 11/23/24 11/24/24 16:00 05:30 Corrected WBC 5.2 Uncorrected WBC Count 5.2 RBC 3.92 Hgb 8.8 L Hct 27.9 L MCV 71.1 L MCH 22.5 L MCHC 31.6 L RDW 19.0 H Plt Count 152 MPV 6.9 Neut % (Auto) 65.2 Lymph % (Auto) 18.6 Gates % (Auto) 14.9 Eos % (Auto) 0.7 Baso % (Auto) 0.6 Nucleat RBC Rel Count 0.2 Neut # (Auto) 3.4 Lymph # (Auto) 1.0 Gates # (Auto) 0.8 Eos # (Auto) 0.0 Baso # (Auto) 0.0 PHA Creatinine Clear 29.87 Sodium 135 L Potassium 3.7 3.0 L Chloride 94 L Carbon Dioxide 34.4 H Anion Gap 9.6 BUN 40 H Creatinine 2.40 H Est GFR (CKD-EPI) 27.967 Glucose 109 H Calcium 9.6 Magnesium 1.9 A&P - Cardiology (1) Acute systolic (congestive) heart failure: Code(s): I50.21 - Acute systolic (congestive) heart failure (2) Acute kidney injury superimposed on CKD: Code(s): N17.9 - Acute kidney failure, unspecified; N18.9 - Chronic kidney disease, unspecified (3) Chronic respiratory failure with hypoxia: Code(s): J96.11 - Chronic respiratory failure with hypoxia (4) CHRIS (obstructive sleep apnea): Code(s): G47.33 - Obstructive sleep apnea (adult) (pediatric) (5) Pulmonary hypertension: Code(s): I27.20 - Pulmonary hypertension, unspecified (6) CAD (coronary artery disease): Code(s): I25.10 - Atherosclerotic heart disease of [place] coronary artery without angina pectoris Plan 1. Continue present medical regimen 2. Gradual up titration of heart failure therapy 3. Considering adding hydralazine nitrate to optimize vasodilator therapy considering the patient appears to have component of cardiorenal syndrome might not be a good candidate for RAAS inhibition Documented By: Lilian Hahn MD 11/24/24 1306 Signed By: 11/24/24 1307 [facility]02-09-2025 [place] [address] Nephrology Progress Note Signed Patient: Char Alatrore MR#: [id number] : 1950 Acct:[id number] Age/Sex: 73 / M Adm Date: 5 Loc: Room: [address] [place] [address] Type: ADM IN Attending Dr: Turner Knott DO Copies to: ~ Date of Service: 11/24/2024 Subjective Subjective Narrative: This is a 73-year-old male with medical history of CKD, HFrEF, CAD s/p PCI, PAD s/p aortic bifemoral bypass, DM, HTN, HLD, pulmonary hypertension and CHRIS for increased shortness of breath and leg swelling. Patient was recently admitted at [facility] after a mechanical fall. He was found to have VIKY and his dose of diuretics were held and was given fluid resuscitation. He had echocardiogramduring hospitalization which showed a worsening cardiac function with EF 20 to 25%. Patient was admitted at [facility] earlier this month for shortness of breath due to the CHFexacerbation. He was diuresis with IV Lasix but upon discharge due to his worsening renal function h ewas advised to hold Lasix and take it only if he gains weight. Patient has a known history of CKD with baseline serum creatinine 2 to 2.1 mg/dL and follows in our office for his CKD care. Patient on admission was found to have worsening renal function with elevated serum creatinine 3.0 mg/dL above his baseline. Nephrology is consulted for VIKY with CKD management. He had a bladder scanwhich showed 260 mL postvoid residual urinary volume. Benavidez catheter was placement after my recommendation. Interim history He has VIKY due to the cardiorenal syndrome. Renal function improving with diuresis. He is now transition to oral Lasix with spironolactone. He has a hypokalemia due to the diuretic induced renal magnesium wasting. His potassium has been repleted IV and orally. Patient was seen and examined bedside. Denies any chest pain palpitation cough nausea vomit diarrhea shortness of breath. Patient fell last night and had thoracolumbar CT spine for back pain. Exam Physical Exam Vital Signs: Temp Pulse Resp BP Pulse Ox O2 Del Method O2 Flow Rate 97.5 F L 95 16 123/71 99 Nasal Cannula 2 11/24/24 08:00 11/24/24 12:00 11/24/24 12:00 11/24/24 12:00 11/24/24 12:00 11/24/24 12:00 11/24/24 12:00 FiO2 30 11/22/24 00:17 Narrative: General: Appears comfortable and not in distress Heart: S1-S2, no rub Lung: Bilateral air entry, no wheezing or crackles Abdomen: Soft, positive bowel sounds Extremities: No edema, no cyanosis Head: Atraumatic, normocephalic Ear: No gross hearing Deficit or external ear redness Eyes: No pallor or redness Neck: NO JVD or visible mass Skin: No rashes , warm to touch 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: Awake,Alert, following simple command Musculoskeletal: No swelling or limitation of movement of the large joints Psychiatric: Cooperative, normal mood and affect Objective Intake and Output I&O: Intake & Output 11/21/24 11/22/24 11/23/24 11/24/24 23:59 23:59 23:59 23:59 Intake Total 1010 / 1010 2310 / 2610 1820 / 1820 350 / 350 Output Total 4725 / 4725 4925 / 5425 1905 / 2180 775 / 775 Balance -3715 / -3715 -2615 / -2815 -85 / -360 -425 / -425 Weight 83.5 kg 78.3 kg 77.6 kg 75.9 kg Meds and Allergies Meds: Active Medications Acetaminophen (Acetaminophen 325 Mg Tablet) 650 mg PO Q4H PRN PRN Reason: Pain Scale 1 - 3 or fever Stop: 11/20/25 14:15 Last Admin: 11/21/24 08:33 Dose: 650 mg Apixaban (Apixaban 5 Mg Tablet) 5 mg PO BID BERNIE Stop: 11/20/25 20:59 Last Admin: 11/24/24 09:36 Dose: 5 mg Ascorbic Acid (Ascorbic Acid 500 Mg Tablet) 500 mg PO BID.WITH.BFAST.LUNCH [facility] Stop: 11/24/25 07:59 Last Admin: 11/24/24 12:15 Dose: 500 mg Atorvastatin Calcium (Atorvastatin 20 Mg Tablet) 20 mg PO DAILY BERNIE Stop: 11/21/25 08:59 Last Admin: 11/24/24 09:35 Dose: 20 mg Carvedilol (Carvedilol 3.125 Mg Tablet) 3.125 mg PO BID.WITH.MEALS [facility] Stop: 11/22/25 16:59 Last Admin: 11/24/24 09:35 Dose: 3.125 mg Clopidogrel Bisulfate (Clopidogrel Bisulfate 75 Mg Tablet) 75 mg PO DAILY BERNIE Stop: 11/21/25 08:59 Last Admin: 11/24/24 09:36 Dose: 75 mg Docusate Sodium (Docusate 100 Mg Capsule) 100 mg PO BID BERNIE Stop: 11/21/25 20:59 Last Admin: 11/24/24 09:35 Dose: 100 mg Ezetimibe (Ezetimibe 10 Mg Tablet) 10 mg PO DAILY BERNIE Stop: 11/21/25 08:59 Last Admin: 11/24/24 09:36 Dose: 10 mg Furosemide (Furosemide 40 Mg Tablet) 40 mg PO BID@0800,1600 [facility] Stop: 11/22/25 15:59 Last Admin: 11/24/24 09:36 Dose: 40 mg Potassium Chloride 40 meq/ (Sodium Chloride) 520 mls @ 130 mls/hr IV ONCE ONE Stop: 11/24/24 13:29 Last Admin: 11/24/24 09:46 Dose: 130 mls/hr Multi-Ingredient Cream (Lanolin Alcohol/Mo/W.Pet/[place] (Minerin) 454 Gm Jar) 1 applic TOPICAL BID [facility] Stop: 11/21/25 12:59 Last Admin: 11/24/24 09:38 Dose: Not Given Multivitamins (Multivitamin 1 Tab Tablet) 1 tab PO DAILY [facility] Stop: 11/21/25 10:44 Last Admin: 11/24/24 09:35 Dose: 1 tab Nitroglycerin (Nitroglycerin 0.4 Mg Tab.Subl) 0.4 mg SUBLINGUAL Q5M PRN PRN Reason: Chest Pain Stop: 11/20/25 14:15 Nortriptyline HCl (Nortriptyline 25 Mg Capsule) 25 mg PO QPM BERNIE Stop: 11/21/25 20:59 Last Admin: 11/23/24 22:05 Dose: 25 mg Psyllium Hydrophilic Mucilloid (Psyllium Husk 3.4 Gm Packet) 1 packet PO BID BERNIE Stop: 11/22/25 20:59 Last Admin: 11/24/24 09:38 Dose: 1 packet Sennosides (Sennosides 8.6 Mg Tablet) 8.6 mg PO QPM BERNIE Stop: 11/21/25 20:59 Last Admin: 11/23/24 22:05 Dose: 8.6 mg Sodium Chloride (Sodium Chloride 0.9 % 10 Ml Syringe) 0 ml IV-PUSH PRN PRN PRN Reason: Flush Stop: 11/20/25 14:15 Last Admin: 11/21/24 15:16 Dose: 10 ml Spironolactone (Spironolactone 25 Mg Tablet) 25 mg PO DAILY BERNIE Stop: 11/22/25 08:59 Last Admin: 11/24/24 09:36 Dose: 25 mg Vitamin D (Cholecalciferol 25 Mcg (1,000 Units) Tablet) 50 mcg PO DAILY BERNIE Stop: 11/21/25 08:59 Last Admin: 11/24/24 09:35 Dose: 50 mcg Allergies No Known Allergies Allergy (Verified 11/20/24 10:02) Results - Nephrology Labs 11/24/24 05:30 11/24/24 05:30 Labs: 11/24/24 05:30 BUN 40 H Creatinine 2.40 H Radiology Impressions Impressions - last 24 hours: Impressions Thoracic Spine CT 11/23/24 20:45 IMPRESSION: Thoracic spine: No acute bony abnormality or malalignment. There is a remote compression deformity at T7. Lumbar spine: No acute bony abnormality or malalignment. Degenerative changes are noted as above. Additional chronic findings are noted as described above. Impression dictated by: Char Larios M.D.11/24/2024 9:15 AM Dictation Location: [place] [address] Any impression(s) listed above is documentation that was entered by the reading physician into a diagnostic report(s) for Char Alatorre. I have reviewed the report(s) and am incorporating any findings in the treatment plan of this patient where applicable. A&P - Nephrology Assessment/Plan (1) Acute kidney injury superimposed on CKD: Assessment/Problem Details: He has an VIKY on CKD likely due to the cardiorenal syndrome. His renal functionhas been improving with diuresis. He is making adequate urine output. 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 His renal function has been declining due to the progression of the CKD. His baseline serum creatinine is around 2 to 2.1 mg/dL. He has atrophic right kidney. 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 He appears to be euvolemic. (4) Iron deficiency anemia: Assessment/Problem Details: Patient has anemia due to the CKD and iron deficiency. (5) Acute systolic (congestive) heart failure: Assessment/Problem Details: Patient was admitted for shortness of breath and increased leg swelling. He haselevated BNP and hismost recent echocardiogram showed EF 20 to 25%. Plan * Continue oral Lasix 40 g p.o. twice daily * Will give potassium chloride 40 mEq p.o. x 1 dose and potassium chloride 40 mEq IV x 1 dose. Willrepeat serum potassium this afternoon. * Continue spironolactone 25 mg PO daily. * Will give Procrit 20,000 subcu x 1 dose. Patient has finished the course of ferric gluconate 250 mg IV daily x 4 doses. * Will follow the result of PRANAY and ANCA. 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 * Check renal function daily and monitor input output * Continue workup for cardiomyopathy as per cardiology. * Documented By: Magy Cummings MD 11/24/24 1223 Signed By: 11/24/24 1227 [facility]02-09-2025 Radiology Diagnostic study note [facility] [place] [address] [place] [address] CT Scan Report Signed Patient: Char Alatorre MR#: [id number] : 1950 Acct:[id number] Age/Sex: 73 / M ADM Date: 5 Loc: Room: [address] [place] [address] Type: ADM IN Attending Dr: Turner Knott DO Copies to: DO Saúl Dennison MD~ Ordering Provider: Saúl Ace MD Date of Service: 11/23/24 CT/CT thoracic spine wo con: Fall ([id number]) CT/CT lumbar spine wo con: Fall CT thoracic spine wo con, CT lumbar spine wo con 11/23/2024 8:45 PM History: Fall, confusion TECHNIQUE: Multi detector CT axial slices of the thoracolumbar spine were obtained without IV contrast. Volumetric acquisition sagittal, coronal, and 3-D reconstructions were performed and reviewed on a separate workstation. CT was performed with one or more of the following dose reduction techniques: Automatedexposure control, adjustment of the mA and/or kV according to patient size, or use of iterative reconstruction technique. COMPARISON: 05/11/2024 and 10/09/2024 FINDINGS: Thoracic spine: There is anterior wedging of the T7 vertebral body with depression of the superior endplate. This is unchanged when compared to the prior CT and appears to be remote. There is preservation of vertebral body heights otherwise.. No fractures or dislocations are seen. The alignment of the thoracic spine is normal. The paraspinous soft tissues are within normal limits. The visualized lung parenchyma is unremarkable. Atherosclerotic changes are noted in the thoracic aorta and coronary arteries as well as the origins of the great vessels. Dependent atelectasis is noted with a small left-sided pleural effusion. There is partial visualization of cardiomegaly. Lumbar spine: There is preservation of the vertebral body heights. There is severe disc height loss at L2-L3 similar to the prior exam with partial autofusion. There is severe disc height loss at L5-S1. No fractures or dislocations are seen. Thealignment of the lumbar spine is normal. The paraspinous soft tissues are withinnormal limits. The visualized lung parenchyma is unremarkable. 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 There is evidence of previous endovascular repair of the infrarenal abdominal aorta with stents extending into the common and external iliac arteries. 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 This is 1.7 cm in greatest axial dimension. There is a simple cyst in the rightrenal cortex requiring no further follow-up. There are nonobstructing stones inthe left renal collecting system measuring up to 4 mm in greatest dimen sourav. There is mild anasarca with presacral fat stranding. CT/CT thoracic spine wo con IMPRESSION: Thoracic spine: No acute bony abnormality or malalignment. There is a remote compression deformity at T7. Lumbar spine: No acute bony abnormality or malalignment. Degenerative changes are noted as above. Additional chronic findings are noted as described above. Impression dictated by: Char Larios M.D.11/24/2024 9:15 AM Dictation Location: [facility] Transcribed By: [facility] 11/24/24914 Dictated By: Char Larios II, MD 11/24/24901 Signed By: 11/24/24914 [facility] Work Phone: [phone]) 482-712902-08-2025 Progress note Author Saúl Ace [facility] Note Date/Time November 23, 2024 8 :59pm [facility] [address] [place] [address] Progress Note Signed Patient: Char Alatorre MR#: [id number] : 1950 Acct:[id number] Age/Sex: 73 / M Adm Date: 5 Loc: Room: [address] [place] [address] Type: ADM IN Attending Dr: Turner Knott DO Copies to: ~ Date of Service: 11/23/2024 Progress Narrative Note PROGRESS NOTE Progress Note: I was notified by nursing staff that patient fell in his room. Arrived at bedside, per report patient appeared confused and was trying to get out of bed. Pt on telesitter and fall precaution. He was instructed to remain in bed by staff however pt did not follow instructions and got up, by the time PCT arrivedto the room saw the patient at the edge of the bed fell and hit his mid back against the bed frame and slid on the floor. When I came to the room, pt sittingon the floor, AAOx3. Pleasant. He does have underlying dementia, needs to be re-directed frequently. States he is thirsty, given water. No report of hitting hishead or syncope or LOC. Vitals appear stable. Pt able to move all extremities. Patient was assisted back in bed by nursing staff and was able to walk few steps, his back was inspected, only superficial skin tear noted on mid back, lumbar area. Neuro exam seems unremarkable. Strength equal 5/5 in all extremities. Will get CT thoracic and lumbar spine without contrast for reassurance to ensure no fractures. Discussed with pt at bedside, all questions answered. Instructed to call for help and explained how to use his call button. Discussed with bedside RN and charge nurse, plan to do further precaution with bed rails and change alarm level to notify prior further attempt to get out of bed. Documented By: Saúl Ace MD 11/23/24 20 51 Signed By: <Electronically signed by Saúl Ace MD> 11/23/242058 [facility] Work Phone: 1(321) 743-665102-08-2025 Progress note Author Turner Knott [facility] Note Date/Time November 23, 2024 8 :14pm [facility] [address] [place] [address] Hospitalist Progress Note Signed Patient: Char Alatorre MR#: [id number] : 1950 Acct:[id number] Age/Sex: 73 / M Adm Date: 5 Loc: 4P Room: [address] [place] [address] Type: ADM IN Attending Dr: Turner Knott DO Copies to: ~ Date of Service: 11/23/2024 Subjective Subjective Narrative: That he is feeling well. He denies any complaints of shortness of breath or chest pain. He notices that his leg edema is improving. He denies any red flagsymptoms such as lightheadedness, dizziness, or difficulty sitting or standing up. He remains with a lot of confusion not consistent with a moderate amount of dementia. This evening he needed redirection for me just on my short visit to keep him sitting upright in bed. The TeleSitter is on to help reorient him quickly. A Benavidez catheter was removed today. I discussed the case on rounds earlier today with nephrology with Dr. Cummings. Once the patient's potassium is stable heis suitable to go to the group home facility. Nurses have been watching him all day and he did not void until just now when he got about 150 mL of urineout. Exam Physical Exam Vital Signs: Temp Pulse Resp BP Pulse Ox O2 Del Method O2 Flow Rate 97.5 F L 97 16 114/81 100 Nasal Cannula 2 11/23/24 16:00 11/23/24 16:00 11/23/24 16:00 11/23/24 16:00 11/23/24 16:00 11/23/24 16:00 11/23/24 16:00 FiO2 30 11/22/24 00:17 Narrative: General: Sitting up on the edge of the bed. A mild amount of pleasant dementia is present today that was worse than yesterday. Pulmonary: Clear to auscultation bilaterally without any wheezing. Mildly diminished in the bases bilaterally. GI: Abdomen soft, normal bowel sounds to auscultation, previous abdominal bloating is now much improved. Cardiac: Normal sinus rhythm on the monitor. No rubs gallops to auscultation. Lower extremities: About 80% of his edema in the lower extremities is gone. No swelling or knots or cords in the calves bilaterally. Objective Lab Results 11/23/24 04:56 11/23/24 16:00 Meds Allergies and Active Meds Allergies No Known Allergies Allergy (Verified 11/20/24 10:02) Active Meds: Active Medications Generic Name Dose Route Start Last Admin Trade Name Jessie PRN Reason Stop Dose Admin Acetaminophen 650 mg 11/20/24 14:16 11/21/24 08:33 Acetaminophen 325 Mg Tablet PO 11/20/25 14:15 650 mg Q4H PRN Administration Pain Scale 1 - 3 or fever Apixaban 5 mg 11/20/24 21:00 11/23/24 08:37 Apixaban 5 Mg Tablet PO 11/20/25 20:59 5 mg BID BERNIE Administration Ascorbic Acid 500 mg 11/24/24 08:00 Ascorbic Acid 500 Mg Tablet PO 11/24/25 07:59 BID.WITH.BFAST.LUNCH BERNIE Atorvastatin Calcium 20 mg 11/21/24 09:00 11/23/24 08:37 Atorvastatin 20 Mg Tablet PO 11/21/25 08:59 20 mg DAILY BERNIE Administration Carvedilol 3.125 mg 11/22/24 17:00 11/23/24 16:18 Carvedilol 3.125 Mg Tablet PO 11/22/25 16:59 3.125 mg BID.WITH.MEALS BERNIE Administration Clopidogrel Bisulfate 75 mg 11/21/24 09:00 11/23/24 08:38 Clopidogrel Bisulfate 75 Mg Tablet PO 11/21/25 08:59 75 mg DAILY BERNIE Administration Docusate Sodium 100 mg 11/21/24 21:00 11/23/24 08:37 Docusate 100 Mg Capsule PO 11/21/25 20:59 100 mg BID BERNIE Administration Ezetimibe 10 mg 11/21/24 09:00 11/23/24 08:38 Ezetimibe 10 Mg Tablet PO 11/21/25 08:59 10 mg DAILY BERNIE Administration Furosemide 40 mg 11/22/24 16:00 11/23/24 16:18 Furosemide 40 Mg Tablet PO 11/22/25 15:59 40 mg BID@0800,1600 BERNIE Administration Ferric Sodium Gluconate 270 mls @ 135 mls/hr 11/21/24 10:00 11/23/24 10:58 Complex 250 mg/ Sodium IV 11/24/24 10:59 135 mls/hr Chloride QAM BERNIE Administration Multi-Ingredient Cream 1 applic 11/21/24 13:00 11/23/24 10:50 Lanolin Alcohol/Mo/W.Pet/[place] (Minerin) 454 Gm Jar TOPICAL 11/21/25 12:59 Not Given BID [facility] Multivitamins 1 tab 11/21/24 10:45 11/23/24 08:37 Multivitamin 1 Tab Tablet PO 11/21/25 10:44 1 tab DAILY BERNIE Administration Nitroglycerin 0.4 mg 11/20/24 14:16 Nitroglycerin 0.4 Mg Tab.Subl SUBLINGUAL 11/20/25 14:15 Q5M PRN Chest Pain Nortriptyline HCl 25 mg 11/21/24 21:00 11/22/24 21:35 Nortriptyline 25 Mg Capsule PO 11/21/25 20:59 25 mg QPM BERNIE Administration Psyllium Hydrophilic Mucilloid 1 packet 11/22/24 21:00 11/23/24 08:38 Psyllium Husk 3.4 Gm Packet PO 11/22/25 20:59 Not Given BID BERNIE Sennosides 8.6 mg 11/21/24 21:00 11/22/24 21:36 Sennosides 8.6 Mg Tablet PO 11/21/25 20:59 Not Given QPM BERNIE Sodium Chloride 0 ml 11/20/24 14:16 11/21/24 15:16 Sodium Chloride 0.9 % 10 Ml Syringe IV-PUSH 11/20/25 14:15 10 ml PRN PRN Administration Flush Spironolactone 25 mg 11/22/24 09:00 11/23/24 08:37 Spironolactone 25 Mg Tablet PO 11/22/25 08:59 25 mg DAILY BERNIE Administration Vitamin D 50 mcg 11/21/24 09:00 11/23/24 08:37 Cholecalciferol 25 Mcg (1,000 Units) Tablet PO 11/21/25 08:59 50 mcg DAILY BERNIE Administration A&P - Hospitalist Assessment/Plan (1) Acute systolic (congestive) heart failure: (2) Acute kidney injury: (3) Chronic respiratory failure with hypoxia: (4) CHRIS (obstructive sleep apnea): (5) Severe obstructive sleep apnea: (6) Hyperlipidemia: (7) Iron deficiency anemia: (8) Severe protein-calorie malnutrition: (9) Acute kidney injury superimposed on CKD: (10) Hypokalemia: Plan Plan: Diuresis has been switched to oral Lasix and oral spironolactone. Continue to replete potassium aggressively. If stable he would be suitable for group home facility. Continue IV iron repletion. He will get up to a total of 4 doses of Ferrlecit 250 mg IV every morning. An MRI of the brain was done at the [facility]. Typical atrophy was seen. No other acute problems are seen. Documented By: Turner Knott DO 2010 Signed By: <Electronically signed by Turner Knott DO> 11/23/242013 [facility] Work Phone: 1(636) 641-756602-08-2025 [place] [address] Progress Note Signed Patient: Char Alatorre MR#: [id number] : 1950 Acct:[id number] Age/Sex: 73 / M Adm Date: 5 Loc: 4 Room: [address] [place] [address] Type: ADM IN Attending Dr: Turner Knott DO Copies to: ~ Date of Service: 11/23/2024 Progress Narrative Note PROGRESS NOTE Progress Note: I was notified by nursing staff that patient fell in his room. Arrived at bedside, per report patient appeared confused and was trying to get out of bed. Pt on telesitter and fall precaution. He was instructed to remain in bed by staff however pt did not follow instructions and got up, by the time PCT arrivedto the room saw the patient at the edge of the bed fell and hit his mid back against the bed frame and slid on the floor. When I came to the room, pt sittingon the floor, AAOx3. Pleasant. He does have underlying dementia, needs to be re-directed frequently. States he is thirsty, given water. No report of hitting hishead or syncope or LOC. Vitals appear stable. Pt able to move all extremities. Patient was assisted back in bed by nursing staff and was able to walk few steps, his back was inspected, only superficial skin tear noted on mid back, lumbar area. Neuro exam seems unremarkable. Strength equal 5/5 in all extremities. Will get CT thoracic and lumbar spine without contrast for reassurance to ensure no fractures. Discussed with pt at bedside, all questions answered. Instructed to call for help and explained how to use his call button. Discussed with bedside RN and charge nurse, plan to do further precaution with bed rails and change alarm level to notify prior further attempt to get out of bed. Documented By: Saúl Ace MD 11/23/24 20 51 Signed By: 11/23/242058 [facility]02-08-2025 [place] [address] Hospitalist Progress Note Signed Patient: Char Alatorre MR#: [id number] : 1950 Acct:[id number] Age/Sex: 73 / M Adm Date: 5 Loc: 4 Room: [address] [place] [address] Type: ADM IN Attending Dr: Turner Knott DO Copies to: ~ Date of Service: 11/23/2024 Subjective Subjective Narrative: That he is feeling well. He denies any complaints of shortness of breath or chest pain. He notices that his leg edema is improving. He denies any red flagsymptoms such as lightheadedness, dizziness, or difficulty sitting or standing up. He remains with a lot of confusion not consistent with a moderate amount of dementia. This evening he needed redirection for me just on my short visit to keep him sitting upright in bed. The TeleSitter is on to help reorient him quickly. A Benavidez catheter was removed today. I discussed the case on rounds earlier today with nephrology with Dr. Cummings. Once the patient's potassium is stable heis suitable to go to the group home facility. Nurses have been watching him all day and he did not void until just now when he got about 150mL of urineout. Exam Physical Exam Vital Signs: Temp Pulse Resp BP Pulse Ox O2 Del Method O2 Flow Rate 97.5 F L 97 16 114/81 100 Nasal Cannula 2 11/23/24 16:00 11/23/24 16:00 11/23/24 16:00 11/23/24 16:00 11/23/24 16:00 11/23/24 16:00 11/23/24 16:00 FiO2 30 11/22/24 00:17 Narrative: General: Sitting up on the edge of the bed. A mild amount of pleasant dementia is present today that was worse than yesterday. Pulmonary: Clear to auscultation bilaterally without any wheezing. Mildly diminished in the bases bilaterally. GI: Abdomen soft, normal bowel sounds to auscultation, previous abdominal bloating is now much improved. Cardiac: Normal sinus rhythm on the monitor. No rubs gallops to auscultation. Lower extremities: About 80% of his edema in the lower extremities is gone. No swelling or knots orcords in the calves bilaterally. Objective Lab Results 11/23/24 04:56 11/23/24 16:00 Meds Allergies and Active Meds Allergies No Known Allergies Allergy (Verified 11/20/24 10:02) Active Meds: Active Medications Generic Name Dose Route Start Last Admin Trade Name Freq PRN Reason Stop Dose Admin Acetaminophen 650 mg 11/20/24 14:16 11/21/24 08:33 Acetaminophen 325 Mg Tablet PO 11/20/25 14:15 650 mg Q4H PRN Administration Pain Scale 1 - 3 or fever Apixaban 5 mg 11/20/24 21:00 11/23/24 08:37 Apixaban 5 Mg Tablet PO 11/20/25 20:59 5 mg BID BERNIE Administration Ascorbic Acid 500 mg 11/24/24 08:00 Ascorbic Acid 500 Mg Tablet PO 11/24/25 07:59 BID.WITH.BFAST.LUNCH [facility] Atorvastatin Calcium 20 mg 11/21/24 09:00 11/23/24 08:37 Atorvastatin 20 Mg Tablet PO 11/21/25 08:59 20 mg DAILY BERNIE Administration Carvedilol 3.125 mg 11/22/24 17:00 11/23/24 16:18 Carvedilol 3.125 Mg Tablet PO 11/22/25 16:59 3.125 mg BID.WITH.MEALS BERNIE Administration Clopidogrel Bisulfate 75 mg 11/21/24 09:00 11/23/24 08:38 Clopidogrel Bisulfate 75 Mg Tablet PO 11/21/25 08:59 75 mg DAILY [facility] Administration Docusate Sodium 100 mg 11/21/24 21:00 11/23/24 08:37 Docusate 100 Mg Capsule PO 11/21/25 20:59 100 mg BID BERNIE Administration Ezetimibe 10 mg 11/21/24 09:00 11/23/24 08:38 Ezetimibe 10 Mg Tablet PO 11/21/25 08:59 10 mg DAILY BERNIE Administration Furosemide 40 mg 11/22/24 16:00 11/23/24 16:18 Furosemide 40 Mg Tablet PO 11/22/25 15:59 40 mg BID@0800,1600 [facility] Administration Ferric Sodium Gluconate 270 mls @ 135 mls/hr 11/21/24 10:00 11/23/24 10:58 Complex 250 mg/ Sodium IV 11/24/24 10:59 135 mls/hr Chloride QAM [facility] Administration Multi-Ingredient Cream 1 applic 11/21/24 13:00 11/23/24 10:50 Lanolin Alcohol/Mo/W.Pet/[place] (Minerin) 454 Gm Jar TOPICAL 11/21/25 12:59 Not Given BID [facility] Multivitamins 1 tab 11/21/24 10:45 11/23/24 08:37 Multivitamin 1 Tab Tablet PO 11/21/25 10:44 1 tab DAILY BERNIE Administration Nitroglycerin 0.4 mg 11/20/24 14:16 Nitroglycerin 0.4 Mg Tab.Subl SUBLINGUAL 11/20/25 14:15 Q5M PRN Chest Pain Nortriptyline HCl 25 mg 11/21/24 21:00 11/22/24 21:35 Nortriptyline 25 Mg Capsule PO 11/21/25 20:59 25 mg QPM BERNIE Administration Psyllium Hydrophilic Mucilloid 1 packet 11/22/24 21:00 11/23/24 08:38 Psyllium Husk 3.4 Gm Packet PO 11/22/25 20:59 Not Given BID BERNIE Sennosides 8.6 mg 11/21/24 21:00 11/22/24 21:36 Sennosides 8.6 Mg Tablet PO 11/21/25 20:59 Not Given QPM BERNIE Sodium Chloride 0 ml 11/20/24 14:16 11/21/24 15:16 Sodium Chloride 0.9 % 10 Ml Syringe IV-PUSH 11/20/25 14:15 10 ml PRN PRN Administration Flush Spironolactone 25 mg 11/22/24 09:00 11/23/24 08:37 Spironolactone 25 Mg Tablet PO 11/22/25 08:59 25 mg DAILY BERNIE Administration Vitamin D 50 mcg 11/21/24 09:00 11/23/24 08:37 Cholecalciferol 25 Mcg (1,000 Units) Tablet PO 11/21/25 08:59 50 mcg DAILY BERNIE Administration A&P - Hospitalist Assessment/Plan (1) Acute systolic (congestive) heart failure: (2) Acute kidney injury: (3) Chronic respiratory failure with hypoxia: (4) CHRIS (obstructive sleep apnea): (5) Severe obstructive sleep apnea: (6) Hyperlipidemia: (7) Iron deficiency anemia: (8) Severe protein-calorie malnutrition: (9) Acute kidney injury superimposed on CKD: (10) Hypokalemia: Plan Plan: Diuresis has been switched to oral Lasix and oral spironolactone. Continue to replete potassium aggressively. If stable he would be suitable for group home facility. Continue IV iron repletion. He will get up to a total of 4 doses of Ferrlecit 250 mg IV every morning. An MRI of the brain was done at the [facility]. Typical atrophy was seen. No other acute problems are seen. Documented By: Turner Knott DO 2010 Signed By: 11/23/242013 [facility]02-08-2025 Progress note Author Lilian Hahn [facility] Note Date/Time November 23, 2024 1 :05pm [facility] [address] [place] [address] Cardiology Progress Note Signed Patient: Char Alatorre MR#: [id number] : 1950 Acct:[id number] Age/Sex: 73 / M Adm Date: 5 Loc: Room: [address] [place] [address] Type: ADM IN Attending Dr: Turner Knott DO Copies to: ~ Date of Service: 11/23/2024 Subjective Principal diagnosis: Heart failure with reduced ejection fraction Interval history: Patient feels better. No edema. Almost back to his base Exam Physical Exam Vital Signs: Temp Pulse Resp BP Pulse Ox O2 Del Method O2 Flow Rate 97.5 F L 75 16 110/77 97 Room Air 1 11/23/24 08:00 11/23/24 08:00 11/23/24 08:00 11/23/24 08:00 11/23/24 08:00 11/23/24 08:00 11/22/24 16:00 FiO2 30 11/22/24 00:17 Objective Labs 11/23/24 04:56 11/23/24 04:56 Labs: Laboratory Results - last 24 hr 11/21/24 11/22/24 11/23/24 05:00 13:35 04:56 Corrected WBC 5.2 Uncorrected WBC Count 5.2 RBC 4.03 Hgb 9.0 L Hct 28.6 L MCV 70.9 L MCH 22.4 L MCHC 31.5 L RDW 18.5 H Plt Count 149 L MPV 6.8 Neut % (Auto) 64.4 Lymph % (Auto) 18.2 Gates % (Auto) 16.3 Eos % (Auto) 0.5 Baso % (Auto) 0.6 Nucleat RBC Rel Count 0.2 Neut # (Auto) 3.3 Lymph # (Auto) 0.9 L [place] # (Auto) 0.8 Eos # (Auto) 0.0 Baso # (Auto) 0.0 PHA Creatinine Clear 27.76 Sodium 136 Potassium 2.9 L* 3.0 L Chloride 94 L Carbon Dioxide 34.1 H Anion Gap 10.9 BUN 46 H Creatinine 2.64 H Est GFR (CKD-EPI) 24.945 Glucose 89 Calcium 9.8 Magnesium 2.0 Free [place] LC, Quant 111.1 H Free Lambda LC, Quant 63.4 H Free [place]/Lambda Ratio 1.75 H A&P - Cardiology (1) Acute systolic (congestive) heart failure: Code(s): I50.21 - Acute systolic (congestive) heart failure (2) Acute kidney injury superimposed on CKD: Code(s): N17.9 - Acute kidney failure, unspecified; N18.9 - Chronic kidney disease, unspecified (3) Chronic respiratory failure with hypoxia: Code(s): J96.11 - Chronic respiratory failure with hypoxia (4) CHRIS (obstructive sleep apnea): Code(s): G47.33 - Obstructive sleep apnea (adult) (pediatric) (5) Pulmonary hypertension: Code(s): I27.20 - Pulmonary hypertension, unspecified (6) CAD (coronary artery disease): Code(s): I25.10 - Atherosclerotic heart disease of [place] coronary artery without angina pectoris Plan 1. Continue present medical regimen 2. Gradual up titration of heart failure therapy 3. Considering adding hydralazine nitrate to optimize vasodilator therapy considering the patient appears to have component of cardiorenal syndrome might not be a good candidate for RAAS inhibition Documented By: Lilian Hahn MD 11/23/24 1301 Signed By: <Electronically signed by MD Lilian Hahn> 11/23/24 1305 [facility] Work Phone: 1(435) 648-882602-08-2025 [place] [id number] Cardiology Progress Note Signed Patient: Char Alatorre MR#: [id number] : 1950 Acct:[id number] Age/Sex: 73 / M Adm Date: 5 Loc: Room: [address] [place] [address] Type: ADM IN Attending Dr: Turner Knott DO Copies to: ~ Date of Service: 11/23/2024 Subjective Principal diagnosis: Heart failure with reduced ejection fraction Interval history: Patient feels better. No edema. Almost back to his base Exam Physical Exam Vital Signs: Temp Pulse Resp BP Pulse Ox O2 Del Method O2 Flow Rate 97.5 F L 75 16 110/77 97 Room Air 1 11/23/24 08:00 11/23/24 08:00 11/23/24 08:00 11/23/24 08:00 11/23/24 08:00 11/23/24 08:00 11/22/24 16:00 FiO2 30 11/22/24 00:17 Objective Labs 11/23/24 04:56 11/23/24 04:56 Labs: Laboratory Results - last 24 hr 11/21/24 11/22/24 11/23/24 05:00 13:35 04:56 Corrected WBC 5.2 Uncorrected WBC Count 5.2 RBC 4.03 Hgb 9.0 L Hct 28.6 L MCV 70.9 L MCH 22.4 L MCHC 31.5 L RDW 18.5 H Plt Count 149 L MPV 6.8 Neut % (Auto) 64.4 Lymph % (Auto) 18.2 Gates % (Auto) 16.3 Eos % (Auto) 0.5 Baso % (Auto) 0.6 Nucleat RBC Rel Count 0.2 Neut # (Auto) 3.3 Lymph # (Auto) 0.9 L [place] # (Auto) 0.8 Eos # (Auto) 0.0 Baso # (Auto) 0.0 PHA Creatinine Clear 27.76 Sodium 136 Potassium 2.9 L* 3.0 L Chloride 94 L Carbon Dioxide 34.1 H Anion Gap 10.9 BUN 46 H Creatinine 2.64 H Est GFR (CKD-EPI) 24.945 Glucose 89 Calcium 9.8 Magnesium 2.0 Free [place] LC, Quant 111.1 H Free Lambda LC, Quant 63.4 H Free [place]/Lambda Ratio 1.75 H A&P - Cardiology (1) Acute systolic (congestive) heart failure: Code(s): I50.21 - Acute systolic (congestive) heart failure (2) Acute kidney injury superimposed on CKD: Code(s): N17.9 - Acute kidney failure, unspecified; N18.9 - Chronic kidney disease, unspecified (3) Chronic respiratory failure with hypoxia: Code(s): J96.11 - Chronic respiratory failure with hypoxia (4) CHRIS (obstructive sleep apnea): Code(s): G47.33 - Obstructive sleep apnea (adult) (pediatric) (5) Pulmonary hypertension: Code(s): I27.20 - Pulmonary hypertension, unspecified (6) CAD (coronary artery disease): Code(s): I25.10 - Atherosclerotic heart disease of [place] coronary artery without angina pectoris Plan 1. Continue present medical regimen 2. Gradual up titration of heart failure therapy 3. Considering adding hydralazine nitrate to optimize vasodilator therapy considering the patient appears to have component of cardiorenal syndrome might not be a good candidate for RAAS inhibition Documented By: Lilian Hahn MD 11/23/24 1301 Signed By: 11/23/24 1305 [facility]02-08-2025 Progress note Author Magy Cummings [facility] Note Date/Time November 23, 2024 1 0:26am [facility] [address] [place] [address] Nephrology Progress Note Signed Patient: Char Alatorre MR#: [id number] : 1950 Acct:[id number] Age/Sex: 73 / M Adm Date: 5 Loc: Room: [address] [place] [address] Type: ADM IN Attending Dr: Turner Knott DO Copies to: ~ Date of Service: 11/23/2024 Subjective Subjective Narrative: This is a 73-year-old male with medical history of CKD, HFrEF, CAD s/p PCI, PAD s/p aortic bifemoral bypass, DM, HTN, HLD, pulmonary hypertension and CHRIS for increased shortness of breath and leg swelling. Patient was recently admitted at [facility] after a mechanical fall. He was found to have VIKY and his dose of diuretics were held and was given fluid resuscitation. He had echocardiogram during hospitalization which showed a worsening cardiac function with EF 20 to 25%. Patient was admitted at [facility] earlier this month for shortness of breath due to the CHF exacerbation. He was diuresis with IV Lasix but upon discharge due to his worsening renal function hewas advised to hold Lasix and take it only if he gains weight. Patient has a known history of CKD with baseline serum creatinine 2 to 2.1 mg/dL and follows in our office for his CKD care. Patient on admission was found to have worsening renal function with elevated serum creatinine 3.0 mg/dL above his baseline. Nephrology is consulted for VIKY with CKD management. He had a bladder scan which showed 260 mL postvoid residual urinary volume. Benavidez catheter was placement after my recommendation. Interim history Patient was seen and examined bedside and discussed with the family at the bedside. Denies any chest pain palpitation cough nausea vomit diarrhea shortness of breath. Exam Physical Exam Vital Signs: Temp Pulse Resp BP Pulse Ox O2 Del Method O2 Flow Rate 97.5 F L 75 16 110/77 97 Room Air 1 11/23/24 08:00 11/23/24 08:00 11/23/24 08:00 11/23/24 08:00 11/23/24 08:00 11/23/24 08:00 11/22/24 16:00 FiO2 30 11/22/24 00:17 Narrative: General: Appears comfortable and not in distress Heart: S1-S2, no rub Lung: Bilateral air entry, no wheezing or crackles Abdomen: Soft, positive bowel sounds Extremities: No edema, no cyanosis Head: Atraumatic, normocephalic Ear: No gross hearing Deficit or external ear redness Eyes: No pallor or redness Neck: NO JVD or visible mass Skin: No rashes , warm to touch INTERN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: Awake,Alert, following simple command Musculoskeletal: No swelling or limitation of movement of the large joints Psychiatric: Cooperative, normal mood and affect Objective Intake and Output I&O: Intake & Output 11/20/24 11/21/24 11/22/24 11/23/24 23:59 23:59 23:59 23:59 Intake Total 100 / 100 1010 / 1010 2040 / 2340 350 / 350 Output Total 300 / 300 4725 / 4725 4925 / 5425 1050 / 1050 Balance -200 / -200 -3715 / -3715 -2885 / -3085 -700 / -700 Weight 84.6 kg 83.5 kg 78.3 kg 77.6 kg Meds and Allergies Meds: Active Medications Acetaminophen (Acetaminophen 325 Mg Tablet) 650 mg PO Q4H PRN PRN Reason: Pain Scale 1 - 3 or fever Stop: 11/20/25 14:15 Last Admin: 11/21/24 08:33 Dose: 650 mg Apixaban (Apixaban 5 Mg Tablet) 5 mg PO BID BERNIE Stop: 11/20/25 20:59 Last Admin: 11/23/24 08:37 Dose: 5 mg Atorvastatin Calcium (Atorvastatin 20 Mg Tablet) 20 mg PO DAILY BERNIE Stop: 11/21/25 08:59 Last Admin: 11/23/24 08:37 Dose: 20 mg Carvedilol (Carvedilol 3.125 Mg Tablet) 3.125 mg PO BID.WITH.MEALS BERNIE Stop: 11/22/25 16:59 Last Admin: 11/23/24 08:37 Dose: 3.125 mg Clopidogrel Bisulfate (Clopidogrel Bisulfate 75 Mg Tablet) 75 mg PO DAILY [facility] Stop: 11/21/25 08:59 Last Admin: 11/23/24 08:38 Dose: 75 mg Docusate Sodium (Docusate 100 Mg Capsule) 100 mg PO BID BERNIE Stop: 11/21/25 20:59 Last Admin: 11/23/24 08:37 Dose: 100 mg Ezetimibe (Ezetimibe 10 Mg Tablet) 10 mg PO DAILY BERNIE Stop: 11/21/25 08:59 Last Admin: 11/23/24 08:38 Dose: 10 mg Furosemide (Furosemide 40 Mg Tablet) 40 mg PO BID@0800,1600 [facility] Stop: 11/22/25 15:59 Last Admin: 11/22/24 15:56 Dose: 40 mg Ferric Sodium Gluconate Complex 250 mg/ Sodium Chloride 270 mls @ 135 mls/hr IVQAM [facility] Stop: 11/24/24 10:59 Last Admin: 11/22/24 09:03 Dose: 135 mls/hr Potassium Chloride 40 meq/ (Sodium Chloride) 520 mls @ 130 mls/hr IV ONCE ONE Stop: 11/23/24 12:59 Multi-Ingredient Cream (Lanolin Alcohol/Mo/W.Pet/[place] (Minerin) 454 Gm Jar) 1 applic TOPICAL BID [facility] Stop: 11/21/25 12:59 Last Admin: 11/22/24 21:36 Dose: 1 applic Multivitamins (Multivitamin 1 Tab Tablet) 1 tab PO DAILY [facility] Stop: 11/21/25 10:44 Last Admin: 11/23/24 08:37 Dose: 1 tab Nitroglycerin (Nitroglycerin 0.4 Mg Tab.Subl) 0.4 mg SUBLINGUAL Q5M PRN PRN Reason: Chest Pain Stop: 11/20/25 14:15 Nortriptyline HCl (Nortriptyline 25 Mg Capsule) 25 mg PO QPM BERNIE Stop: 11/21/25 20:59 Last Admin: 11/22/24 21:35 Dose: 25 mg Psyllium Hydrophilic Mucilloid (Psyllium Husk 3.4 Gm Packet) 1 packet PO BID BERNIE Stop: 11/22/25 20:59 Last Admin: 11/23/24 08:38 Dose: Not Given Sennosides (Sennosides 8.6 Mg Tablet) 8.6 mg PO QPM BERNIE Stop: 11/21/25 20:59 Last Admin: 11/22/24 21:36 Dose: Not Given Sodium Chloride (Sodium Chloride 0.9 % 10 Ml Syringe) 0 ml IV-PUSH PRN PRN PRN Reason: Flush Stop: 11/20/25 14:15 Last Admin: 11/21/24 15:16 Dose: 10 ml Spironolactone (Spironolactone 25 Mg Tablet) 25 mg PO DAILY BERNIE Stop: 11/22/25 08:59 Last Admin: 11/23/24 08:37 Dose: 25 mg Vitamin D (Cholecalciferol 25 Mcg (1,000 Units) Tablet) 50 mcg PO DAILY BERNIE Stop: 11/21/25 08:59 Last Admin: 11/23/24 08:37 Dose: 50 mcg Allergies No Known Allergies Allergy (Verified 11/20/24 10:02) Results - Nephrology Labs 11/23/24 04:56 11/23/24 04:56 Labs: 11/23/24 04:56 BUN 46 H Creatinine 2.64 H Radiology Impressions Impressions - last 24 hours: Any impression(s) listed above is documentation that was entered by the reading physician into a diagnostic report(s) for Char Alatorre. I have reviewed the report(s) and am incorporating any findings in the treatment plan of this patient where applicable. A&P - Nephrology Assessment/Plan (1) Acute kidney injury superimposed on CKD: Assessment/Problem Details: He has an VIKY on CKD likely due to the cardiorenal syndrome. His renal functionhas been improving with diuresis. He is making adequate urine output. 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 His renal function has been declining due to the progression of the CKD. His baseline serum creatinine is around 2 to 2.1 mg/dL. He has atrophic right kidney. 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 He appears to be euvolemic. (4) Iron deficiency anemia: Assessment/Problem Details: Patient has anemia due to the CKD and iron deficiency. (5) Acute systolic (congestive) heart failure: Assessment/Problem Details: Patient was admitted for shortness of breath and increased leg swelling. He haselevated BNP and his most recent echocardiogram showed EF 20 to 25%. Plan * Continue oral Lasix 40 g p.o. twice daily * Will give potassium chloride 40 mEq p.o. x 1 dose and potassium chloride 40 mEq IV x 1 dose. * Continue spironolactone 25 mg PO daily. * Will give ferric gluconate 250 mg IV daily x 4 doses. * Will follow the result of PRANAY and ANCA. 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 * Will DC Benavidez for voiding trial. * Check renal function daily and monitor input output * Continue workup for cardiomyopathy as per cardiology. * Documented By: Magy Cummings MD 11/23/24 0957 Signed By: <Electronically signed by Magy Cummings MD> 11/23/[address] [place] [address] Work Phone: [phone]) [phone] [place] [address] Nephrology Progress Note Signed Patient: Char Alatorre MR#: [id number] : 1950 Acct:[id number] Age/Sex: 73 / M Adm Date: 5 Loc: 4P Room: [address] [place] [address] Type: ADM IN Attending Dr: Turner Knott DO Copies to: ~ Date of Service: 11/23/2024 Subjective Subjective Narrative: This is a 73-year-old male with medical history of CKD, HFrEF, CAD s/p PCI, PAD s/p aortic bifemoral bypass, DM, HTN, HLD, pulmonary hypertension and CHRIS for increased shortness of breath and leg swelling. Patient was recently admitted at [facility] after a mechanical fall. He was found to have VIKY and his dose of diuretics were held and was given fluid resuscitation. He had echocardiogramduring hospitalization which showed a worsening cardiac function with EF 20 to 25%. Patient was admitted at [facility] earlier this month for shortness of breath due to the CHFexacerbation. He was diuresis with IV Lasix but upon discharge due to his worsening renal function h ewas advised to hold Lasix and take it only if he gains weight. Patient has a known history of CKD with baseline serum creatinine 2 to 2.1 mg/dL and follows in our office for his CKD care. Patient on admission was found to have worsening renal function with elevated serum creatinine 3.0 mg/dL above his baseline. Nephrology is consulted for VIKY with CKD management. He had a bladder scanwhich showed 260 mL postvoid residual urinary volume. Benavidez catheter was placement after my recommendation. Interim history Patient was seen and examined bedside and discussed with the family at the bedside. Denies any chest pain palpitation cough nausea vomit diarrhea shortness of breath. Exam Physical Exam Vital Signs: Temp Pulse Resp BP Pulse Ox O2 Del Method O2 Flow Rate 97.5 F L 75 16 110/77 97 Room Air 1 11/23/24 08:00 11/23/24 08:00 11/23/24 08:00 11/23/24 08:00 11/23/24 08:00 11/23/24 08:00 11/22/24 16:00 FiO2 30 11/22/24 00:17 Narrative: General: Appears comfortable and not in distress Heart: S1-S2, no rub Lung: Bilateral air entry, no wheezing or crackles Abdomen: Soft, positive bowel sounds Extremities: No edema, no cyanosis Head: Atraumatic, normocephalic Ear: No gross hearing Deficit or external ear redness Eyes: No pallor or redness Neck: NO JVD or visible mass Skin: No rashes , warm to touch INTERN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: Awake,Alert, following simple command Musculoskeletal: No swelling or limitation of movement of the large joints Psychiatric: Cooperative, normal mood and affect Objective Intake and Output I&O: Intake & Output 11/20/24 11/21/24 11/22/24 11/23/24 23:59 23:59 23:59 23:59 Intake Total 100 / 100 1010 / 1010 2040 / 2340 350 / 350 Output Total 300 / 300 4725 / 4725 4925 / 5425 1050 / 1050 Balance -200 / -200 -3715 / -3715 -2885 / -3085 -700 / -700 Weight 84.6 kg 83.5 kg 78.3 kg 77.6 kg Meds and Allergies Meds: Active Medications Acetaminophen (Acetaminophen 325 Mg Tablet) 650 mg PO Q4H PRN PRN Reason: Pain Scale 1 - 3 or fever Stop: 11/20/25 14:15 Last Admin: 11/21/24 08:33 Dose: 650 mg Apixaban (Apixaban 5 Mg Tablet) 5 mg PO BID [facility] Stop: 11/20/25 20:59 Last Admin: 11/23/24 08:37 Dose: 5 mg Atorvastatin Calcium (Atorvastatin 20 Mg Tablet) 20 mg PO DAILY BERNIE Stop: 11/21/25 08:59 Last Admin: 11/23/24 08:37 Dose: 20 mg Carvedilol (Carvedilol 3.125 Mg Tablet) 3.125 mg PO BID.WITH.MEALS [facility] Stop: 11/22/25 16:59 Last Admin: 11/23/24 08:37 Dose: 3.125 mg Clopidogrel Bisulfate (Clopidogrel Bisulfate 75 Mg Tablet) 75 mg PO DAILY BERNIE Stop: 11/21/25 08:59 Last Admin: 11/23/24 08:38 Dose: 75 mg Docusate Sodium (Docusate 100 Mg Capsule) 100 mg PO BID BERNIE Stop: 11/21/25 20:59 Last Admin: 11/23/24 08:37 Dose: 100 mg Ezetimibe (Ezetimibe 10 Mg Tablet) 10 mg PO DAILY BERNIE Stop: 11/21/25 08:59 Last Admin: 11/23/24 08:38 Dose: 10 mg Furosemide (Furosemide 40 Mg Tablet) 40 mg PO BID@0800,1600 [facility] Stop: 11/22/25 15:59 Last Admin: 11/22/24 15:56 Dose: 40 mg Ferric Sodium Gluconate Complex 250 mg/ Sodium Chloride 270 mls @ 135 mls/hr IVQAM [facility] Stop: 11/24/24 10:59 Last Admin: 11/22/24 09:03 Dose: 135 mls/hr Potassium Chloride 40 meq/ (Sodium Chloride) 520 mls @ 130 mls/hr IV ONCE ONE Stop: 11/23/24 12:59 Multi-Ingredient Cream (Lanolin Alcohol/Mo/W.Pet/[place] (Minerin) 454 Gm Jar) 1 applic TOPICAL BID BERNIE Stop: 11/21/25 12:59 Last Admin: 11/22/24 21:36 Dose: 1 applic Multivitamins (Multivitamin 1 Tab Tablet) 1 tab PO DAILY BERNIE Stop: 11/21/25 10:44 Last Admin: 11/23/24 08:37 Dose: 1 tab Nitroglycerin (Nitroglycerin 0.4 Mg Tab.Subl) 0.4 mg SUBLINGUAL Q5M PRN PRN Reason: Chest Pain Stop: 11/20/25 14:15 Nortriptyline HCl (Nortriptyline 25 Mg Capsule) 25 mg PO QPM [facility] Stop: 11/21/25 20:59 Last Admin: 11/22/24 21:35 Dose: 25 mg Psyllium Hydrophilic Mucilloid (Psyllium Husk 3.4 Gm Packet) 1 packet PO BID BERNIE Stop: 11/22/25 20:59 Last Admin: 11/23/24 08:38 Dose: Not Given Sennosides (Sennosides 8.6 Mg Tablet) 8.6 mg PO QPM BERNIE Stop: 11/21/25 20:59 Last Admin: 11/22/24 21:36 Dose: Not Given Sodium Chloride (Sodium Chloride 0.9 % 10 Ml Syringe) 0 ml IV-PUSH PRN PRN PRN Reason: Flush Stop: 11/20/25 14:15 Last Admin: 11/21/24 15:16 Dose: 10 ml Spironolactone (Spironolactone 25 Mg Tablet) 25 mg PO DAILY [facility] Stop: 11/22/25 08:59 Last Admin: 11/23/24 08:37 Dose: 25 mg Vitamin D (Cholecalciferol 25 Mcg (1,000 Units) Tablet) 50 mcg PO DAILY [facility] Stop: 11/21/25 08:59 Last Admin: 11/23/24 08:37 Dose: 50 mcg Allergies No Known Allergies Allergy (Verified 11/20/24 10:02) Results - Nephrology Labs 11/23/24 04:56 11/23/24 04:56 Labs: 11/23/24 04:56 BUN 46 H Creatinine 2.64 H Radiology Impressions Impressions - last 24 hours: Any impression(s) listed above is documentation that was entered by the reading physician into a diagnostic report(s) for Cahr Alatorre. I have reviewed the report(s) and am incorporating any findings in the treatment plan of this patient where applicable. A&P - Nephrology Assessment/Plan (1) Acute kidney injury superimposed on CKD: Assessment/Problem Details: He has an VIKY on CKD likely due to the cardiorenal syndrome. His renal functionhas been improving with diuresis. He is making adequate urine output. 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 His renal function has been declining due to the progression of the CKD. His baseline serum creatinine is around 2 to 2.1 mg/dL. He has atrophic right kidney. 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 He appears to be euvolemic. (4) Iron deficiency anemia: Assessment/Problem Details: Patient has anemia due to the CKD and iron deficiency. (5) Acute systolic (congestive) heart failure: Assessment/Problem Details: Patient was admitted for shortness of breath and increased leg swelling. He haselevated BNP and hismost recent echocardiogram showed EF 20 to 25%. Plan * Continue oral Lasix 40 g p.o. twice daily * Will give potassium chloride 40 mEq p.o. x 1 dose and potassium chloride 40 mEq IV x 1 dose. * Continue spironolactone 25 mg PO daily. * Will give ferric gluconate 250 mg IV daily x 4 doses. * Will follow the result of PRANAY and ANCA. 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 * Will DC Benavidez for voiding trial. * Check renal function daily and monitor input output * Continue workup for cardiomyopathy as per cardiology. * Documented By: Magy Cummings MD 11/23/24 0957 Signed By: 11/23/24 1026 [facility]02-07-2025 Progress note Author Turner Knott [facility] Note Date/Time November 22, 2024 6 :57pm [facility] [address] [place] [address] Hospitalist Progress Note Signed Patient: Char Alatorre MR#: [id number] : 1950 Acct:[id number] Age/Sex: 73 / M Adm Date: 5 Loc: Room: [address] [place] [address] Type: ADM IN Attending Dr: Turner Knott DO Copies to: ~ Date of Service: 11/22/2024 Subjective Subjective Narrative: In the setting of heavy diuresis here in the hospital his BUN is improved nicelyfrom 61 then down to 58 and then down to 50 today. And his creatinine is improved nicely from 3.04 then down to 2.94 and then down to 2.80 today. He reports that he is feeling a lot better. He has been liberated from supplemental oxygen. His appetite is improving. He feels like his strength is improving. Unfortunately, after wearing the BiPAP for a few hours on the first night last night he adamantly refused to wear the BiPAP. He tells me it is a situation ofextreme anxiety. I understand that they have a sleep apnea machine for him at a group home facility but when asking questions about this he is not certain whether he used it or not. He said that he has done a lot of reading but would not elaborate on what he read about the subject of obstructive sleep apnea. Exam Physical Exam Vital Signs: Temp Pulse Resp BP Pulse Ox O2 Del Method O2 Flow Rate 97.6 F 98 16 111/84 98 Nasal Cannula 1 11/22/24 16:00 11/22/24 16:00 11/22/24 16:11/22/24 16:00 11/22/24 16:11/22/24 16:11/22/24 16:00 FiO2 30 11/22/24 00:17 Narrative: General: Reclining in bed. Very nice and awake and alert and oriented Pulmonary: Clear to auscultation bilaterally without any wheezing. Mildly diminished in the bases bilaterally. GI: Abdomen soft, normal bowel sounds to auscultation, previous abdominal bloating is now much improved. Cardiac: Normal sinus rhythm on the monitor. No rubs gallops to auscultation. Lower extremities: Moderate amount of improvement in lower extremity edema todaycompared the last few days. : Benavidez catheter is draining a good volume of urine without any purulence, cloudiness, or blood. Objective Lab Results 11/22/24 04:05 11/22/24 13:35 Meds Allergies and Active Meds Allergies No Known Allergies Allergy (Verified 11/20/24 10:02) Active Meds: Active Medications Generic Name Dose Route Start Last Admin Trade Name Jessie PRN Reason Stop Dose Admin Acetaminophen 650 mg 11/20/24 14:16 11/21/24 08:33 Acetaminophen 325 Mg Tablet PO 11/20/25 14:15 650 mg Q4H PRN Administration Pain Scale 1 - 3 or fever Apixaban 5 mg 11/20/24 21:00 11/22/24 08:10 Apixaban 5 Mg Tablet PO 11/20/25 20:59 5 mg BID BERNIE Administration Atorvastatin Calcium 20 mg 11/21/24 09:00 11/22/24 08:10 Atorvastatin 20 Mg Tablet PO 11/21/25 08:59 20 mg DAILY BERNIE Administration Carvedilol 3.125 mg 11/22/24 17:00 11/22/24 16:00 Carvedilol 3.125 Mg Tablet PO 11/22/25 16:59 3.125 mg BID.WITH.MEALS BERNIE Administration Clopidogrel Bisulfate 75 mg 11/21/24 09:00 11/22/24 08:10 Clopidogrel Bisulfate 75 Mg Tablet PO 11/21/25 08:59 75 mg DAILY BERNIE Administration Docusate Sodium 100 mg 11/21/24 21:00 11/22/24 08:10 Docusate 100 Mg Capsule PO 11/21/25 20:59 100 mg BID BERNIE Administration Ezetimibe 10 mg 11/21/24 09:00 11/22/24 08:10 Ezetimibe 10 Mg Tablet PO 11/21/25 08:59 10 mg DAILY BERNIE Administration Furosemide 40 mg 11/22/24 16:00 11/22/24 15:56 Furosemide 40 Mg Tablet PO 11/22/25 15:59 40 mg BID@0800,1600 BERNIE Administration Ferric Sodium Gluconate 270 mls @ 135 mls/hr 11/21/24 10:00 11/22/24 09:03 Complex 250 mg/ Sodium IV 11/24/24 10:59 135 mls/hr Chloride QAM BERNIE Administration Multi-Ingredient Cream 1 applic 11/21/24 13:00 11/22/24 09:03 Lanolin Alcohol/Mo/W.Pet/[place] (Minerin) 454 Gm Jar TOPICAL 11/21/25 12:59 1 applic BID BERNIE Administration Multivitamins 1 tab 11/21/24 10:45 11/22/24 08:10 Multivitamin 1 Tab Tablet PO 11/21/25 10:44 1 tab DAILY BERNIE Administration Nitroglycerin 0.4 mg 11/20/24 14:16 Nitroglycerin 0.4 Mg Tab.Subl SUBLINGUAL 11/20/25 14:15 Q5M PRN Chest Pain Nortriptyline HCl 25 mg 11/21/24 21:00 11/21/24 20:26 Nortriptyline 25 Mg Capsule PO 11/21/25 20:59 25 mg QPM BERNIE Administration Psyllium Hydrophilic Mucilloid 1 packet 11/22/24 21:00 Psyllium Husk 3.4 Gm Packet PO 11/22/25 20:59 BID BERNIE Sennosides 8.6 mg 11/21/24 21:00 11/21/24 20:26 Sennosides 8.6 Mg Tablet PO 11/21/25 20:59 8.6 mg QPM BERNIE Administration Sodium Chloride 0 ml 11/20/24 14:16 11/21/24 15:16 Sodium Chloride 0.9 % 10 Ml Syringe IV-PUSH 11/20/25 14:15 10 ml PRN PRN Administration Flush Spironolactone 25 mg 11/22/24 09:00 11/22/24 09:02 Spironolactone 25 Mg Tablet PO 11/22/25 08:59 25 mg DAILY BERNIE Administration Vitamin D 50 mcg 11/21/24 09:00 11/22/24 08:10 Cholecalciferol 25 Mcg (1,000 Units) Tablet PO 11/21/25 08:59 50 mcg DAILY BERNIE Administration A&P - Hospitalist Assessment/Plan (1) Acute systolic (congestive) heart failure: (2) Acute kidney injury: (3) Chronic respiratory failure with hypoxia: (4) CHRIS (obstructive sleep apnea): (5) Severe obstructive sleep apnea: (6) Hyperlipidemia: (7) Iron deficiency anemia: (8) Severe protein-calorie malnutrition: (9) Acute kidney injury superimposed on CKD: Plan Plan: Continue IV diuresis as he is getting right now and cardiology and nephrology toconsider optimizing his GDMT medications for HFrEF. Continue IV iron repletion. He will get 4 doses of Ferrlecit 250 mg IV every morning. An MRI of the brain was done at the [facility]. Typical atrophy was seen. No other acute problems are seen. n. Documented By: Turner Knott DO 1853 Signed By: <Electronically signed by Turner Knott, > 11/22/241856 [facility] Work Phone: 1(309) 506-353702-07-2025 [place] [address] Hospitalist Progress Note Signed Patient: Char Alatorre MR#: [id number] : 1950 Acct:[id number] Age/Sex: 73 / M Adm Date: 5 Loc: Room: [address] [place] [address] Type: ADM IN Attending Dr: Turner Knott DO Copies to: ~ Date of Service: 11/22/2024 Subjective Subjective Narrative: In the setting of heavy diuresis here in the hospital his BUN is improved nicelyfrom 61 then down to 58 and then down to 50 today. And his creatinine is improved nicely from 3.04 then down to 2.94 and then down to 2.80 today. He reports that he is feeling a lot better. He has been liberated from supplemental oxygen. His appetite is improving. He feels like his strength is improving. Unfortunately, after wearing the BiPAP for a few hours on the first night last night he adamantly refused to wear the BiPAP. He tells me it is a situation ofextreme anxiety. I understand that they have a sleep apnea machine for him at a group home facility but when asking questions about this he is not certain whether he used it or not. He said that he has done a lot of reading but wouldnot elaborate on what he read about the subject of obstructive sleep apnea. Exam Physical Exam Vital Signs: Temp Pulse Resp BP Pulse Ox O2 Del Method O2 Flow Rate 97.6 F 98 16 111/84 98 Nasal Cannula 1 11/22/24 16:00 11/22/24 16:00 11/22/24 16:00 11/22/24 16:00 11/22/24 16:00 11/22/24 16:00 11/22/24 16:00 FiO2 30 11/22/24 00:17 Narrative: General: Reclining in bed. Very nice and awake and alert and oriented Pulmonary: Clear to auscultation bilaterally without any wheezing. Mildly diminished in the bases bilaterally. GI: Abdomen soft, normal bowel sounds to auscultation, previous abdominal bloating is now much improved. Cardiac: Normal sinus rhythm on the monitor. No rubs gallops to auscultation. Lower extremities: Moderate amount of improvement in lower extremity edema todaycompared the last few days. : Benavidez catheter is draining a good volume of urine without any purulence, cloudiness, or blood. Objective Lab Results 11/22/24 04:05 11/22/24 13:35 Meds Allergies and Active Meds Allergies No Known Allergies Allergy (Verified 11/20/24 10:02) Active Meds: Active Medications Generic Name Dose Route Start Last Admin Trade Name Freq PRN Reason Stop Dose Admin Acetaminophen 650 mg 11/20/24 14:16 11/21/24 08:33 Acetaminophen 325 Mg Tablet PO 11/20/25 14:15 650 mg Q4H PRN Administration Pain Scale 1 - 3 or fever Apixaban 5 mg 11/20/24 21:00 11/22/24 08:10 Apixaban 5 Mg Tablet PO 11/20/25 20:59 5 mg BID BERNIE Administration Atorvastatin Calcium 20 mg 11/21/24 09:00 11/22/24 08:10 Atorvastatin 20 Mg Tablet PO 11/21/25 08:59 20 mg DAILY BERNIE Administration Carvedilol 3.125 mg 11/22/24 17:00 11/22/24 16:00 Carvedilol 3.125 Mg Tablet PO 11/22/25 16:59 3.125 mg BID.WITH.MEALS BERNIE Administration Clopidogrel Bisulfate 75 mg 11/21/24 09:00 11/22/24 08:10 Clopidogrel Bisulfate 75 Mg Tablet PO 11/21/25 08:59 75 mg DAILY BERNIE Administration Docusate Sodium 100 mg 11/21/24 21:00 11/22/24 08:10 Docusate 100 Mg Capsule PO 11/21/25 20:59 100 mg BID BERNIE Administration Ezetimibe 10 mg 11/21/24 09:00 11/22/24 08:10 Ezetimibe 10 Mg Tablet PO 11/21/25 08:59 10 mg DAILY BERNIE Administration Furosemide 40 mg 11/22/24 16:00 11/22/24 15:56 Furosemide 40 Mg Tablet PO 11/22/25 15:59 40 mg BID@0800,1600 BERNIE Administration Ferric Sodium Gluconate 270 mls @ 135 mls/hr 11/21/24 10:00 11/22/24 09:03 Complex 250 mg/ Sodium IV 11/24/24 10:59 135 mls/hr Chloride QAM BERNIE Administration Multi-Ingredient Cream 1 applic 11/21/24 13:00 11/22/24 09:03 Lanolin Alcohol/Mo/W.Pet/[place] (Minerin) 454 Gm Jar TOPICAL 11/21/25 12:59 1 applic BID BERNIE Administration Multivitamins 1 tab 11/21/24 10:45 11/22/24 08:10 Multivitamin 1 Tab Tablet PO 11/21/25 10:44 1 tab DAILY BERNIE Administration Nitroglycerin 0.4 mg 11/20/24 14:16 Nitroglycerin 0.4 Mg Tab.Subl SUBLINGUAL 11/20/25 14:15 Q5M PRN Chest Pain Nortriptyline HCl 25 mg 11/21/24 21:00 11/21/24 20:26 Nortriptyline 25 Mg Capsule PO 11/21/25 20:59 25 mg QPM BERNIE Administration Psyllium Hydrophilic Mucilloid 1 packet 11/22/24 21:00 Psyllium Husk 3.4 Gm Packet PO 11/22/25 20:59 BID BERNIE Sennosides 8.6 mg 11/21/24 21:00 11/21/24 20:26 Sennosides 8.6 Mg Tablet PO 11/21/25 20:59 8.6 mg QPM BERNIE Administration Sodium Chloride 0 ml 11/20/24 14:16 11/21/24 15:16 Sodium Chloride 0.9 % 10 Ml Syringe IV-PUSH 11/20/25 14:15 10 ml PRN PRN Administration Flush Spironolactone 25 mg 11/22/24 09:00 11/22/24 09:02 Spironolactone 25 Mg Tablet PO 11/22/25 08:59 25 mg DAILY BERNIE Administration Vitamin D 50 mcg 11/21/24 09:00 11/22/24 08:10 Cholecalciferol 25 Mcg (1,000 Units) Tablet PO 11/21/25 08:59 50 mcg DAILY BERNIE Administration A&P - Hospitalist Assessment/Plan (1) Acute systolic (congestive) heart failure: (2) Acute kidney injury: (3) Chronic respiratory failure with hypoxia: (4) CHRIS (obstructive sleep apnea): (5) Severe obstructive sleep apnea: (6) Hyperlipidemia: (7) Iron deficiency anemia: (8) Severe protein-calorie malnutrition: (9) Acute kidney injury superimposed on CKD: Plan Plan: Continue IV diuresis as he is getting right now and cardiology and nephrology toconsider optimizinghis GDMT medications for HFrEF. Continue IV iron repletion. He will get 4 doses of Ferrlecit 250 mg IV every morning. An MRI of the brain was done at the [facility]. Typical atrophy was seen. No other acute problems are seen. n. Documented By: Turner Knott DO 1853 Signed By: 11/22/241856 [facility]02-07-2025 Progress note Author Chase Larkin [facility] Note Date/Time November 22, 2024 2 :17pm [facility] [address] [place] [address] Cardiology Progress Note Signed Patient: Char Alatorre MR#: [id number] : 1950 Acct:[id number] Age/Sex: 73 / M Adm Date: 5 Loc: 4 Room: 0M2162-0 Type: ADM IN Attending Dr: Turner Knott DO Copies to: ~ Date of Service: 11/22/2024 Subjective Principal diagnosis: Heart failure with reduced ejection fraction Interval history: Pt is awake and alert laying comfortable in the bed eating breakfast upon me walking into the room. No acute events overnight. His Yenifer is present atbedside. Yenifer states that patient's mental status improved from yesterday. Patient reports feeling well at this time. No chest pain, shortness of breath, palpitations, abdominal pain, nausea. Hypokalemia noted. Will add afternoon dose of oral K. Exam Physical Exam Vital Signs: Temp Pulse Resp BP Pulse Ox O2 Del Method O2 Flow Rate 97.5 F L 94 14 104/75 98 Room Air 2 11/22/24 08:00 11/22/24 08:00 11/22/24 08:00 11/22/24 08:00 11/22/24 08:00 11/22/24 08:00 11/22/24 04:00 FiO2 30 11/22/24 00:17 Narrative: General: Awake, A&O x 3, pleasant, cooperative, well nourished HENT: NC, AT Eyes: No scleral icterus Neck: Supple, trachea midline Cardio: RRR, no murmurs, rubs or gallops Respiratory: CTAB, no wheezes rhonchi or rales. No evidence of respiratory distress GI: Soft, nontender, nondistended Neuro: CN II-XII grossly intact, no focal neurologic deficit Extremities: 2+ pitting edema to the bilateral lower extremities with no erythema or warmth Psych: Affect, speech and movements normal. Mood congruent Objective Labs 11/22/24 04:05 11/22/24 04:05 Labs: Laboratory Results - last 24 hr 11/21/24 11/21/24 11/22/24 05:00 11:35 04:05 Corrected WBC 4.5 Uncorrected WBC Count 4.5 RBC 4.08 Hgb 9.1 L Hct 28.9 L MCV 70.8 L MCH 22.3 L MCHC 31.6 L RDW 18.6 H Plt Count 144 L MPV 6.8 Neut % (Auto) 71.2 Lymph % (Auto) 15.7 Gates % (Auto) 12.2 Eos % (Auto) 0.5 Baso % (Auto) 0.4 Nucleat RBC Rel Count 0.1 Neut # (Auto) 3.2 Lymph # (Auto) 0.7 L Gates # (Auto) 0.6 Eos # (Auto) 0.0 Baso # (Auto) 0.0 PHA Creatinine Clear 26.17 Sodium 136 Potassium 2.8 L* Chloride 98 Carbon Dioxide 30.4 Anion Gap 10.4 BUN 50 H Creatinine 2.80 H Est GFR (CKD-EPI) 23.244 Glucose 91 Calcium 9.1 Urine Color Light-yellow Urine Appearance Clear Urine pH 5.0 Ur Specific [place] 1.009 Urine Protein Negative Urine Glucose (UA) 100 H Urine Ketones Negative Urine Occult Blood 2+ H Urine Nitrite Negative Urine Bilirubin Negative Urine Urobilinogen Normal Ur Leukocyte Esterase Negative Urine RBC 50-100 H Urine WBC 1-2 Ur Squamous Epith Cells 1-2 Urine Bacteria Rare Hyaline Casts 0-8 Urine Mucus Rare Ur Random Creatinine 29.00 U Random Total Protein 14 H Protein/Creatinin Ratio 483 H PRANAY Homogeneous Pattern N/A A&P - Cardiology (1) Acute systolic (congestive) heart failure: Code(s): I50.21 - Acute systolic (congestive) heart failure (2) Acute kidney injury superimposed on CKD: Code(s): N17.9 - Acute kidney failure, unspecified; N18.9 - Chronic kidney disease, unspecified (3) Chronic respiratory failure with hypoxia: Code(s): J96.11 - Chronic respiratory failure with hypoxia (4) CHRIS (obstructive sleep apnea): Code(s): G47.33 - Obstructive sleep apnea (adult) (pediatric) (5) Pulmonary hypertension: Code(s): I27.20 - Pulmonary hypertension, unspecified Plan Acute decompensated HF. NYHA IV symptoms VIKY on CKD 3 - [facility] due to cardiorenal syndrome. Possibly is his new baseline. Transaminitis Ischemic cardiomyopathy. EF 20-25% on 11/11/24 from [facility] CAD s/p to PCI to RCA 05/2024 Sarcopenia HLD HTN Pulmonary HTN- Likely Precapillary from untreated CHRIS COPD PAD s/p aortobifem bypass, R renal artery stenosis and occluded PABLO. On Eliquis. Severe untreated CHRIS Limited echo 11/11/2024 at [facility]: Severely reduced EF 20-25% with diffuse global hypokinesis, borderline RV systolic function, moderate severe biatrial dilatation, heavily calcified aortic valve with reduced mobility. [facility] 05/17/2024: RA 5, PA 35/17 (25) PCWP 4, cardiac output 3.7/cardiac index 1.7 TPG 21 mmHg, DPG 13 mmHg, PVR 5.6 Wood units. Consistent with precapillary pulmonary hypertension. C 05/22/2024: Left main: Patent, LAD: 40%, left circumflex minor irregularities,OM 280% proximal, OM 360% stenosis, RCA 80% proximal stenosis and 40% mid. Conclusion: Three-vessel coronary disease involving LAD, OM 2 and ostium branch of the RCA (80%) [facility] 05/29/2024: PCI to RCA with 4.0 x 15 mm Xience MINDY. Plans to continue Plavixand Eliquis for at least 1 year (May 2025) Echo 11/11/2024 at [facility]: Ejection fraction 20-25% which is changed from previous exam on 05/13/2024 with EF of 35-40%, mild eccentric left ventricular hypertrophy, diffuse global hypokinesis, severe dilatation of the left atrium, moderate dilatation of the right atrium, mildly thickened mitral valve with normal mobility, moderate to severely calcified aortic valve with reduced mobility, trivial pericardial effusion, normal right ventricular size with borderline systolic function. EKG 11/20/2024: Normal sinus rhythm with first-degree AV block ST-T changes suggestive of inferolateral ischemia Recommendations: - Still hypervolemic by clinical congestion, weight gain, elevated BNP and transaminitis suggestive of congestive hepatopathy. Diuresis goal is 1.5 L/day. - Patient with significant diuresis, noting -3715 mL yesterday and -1800 mL so far today and about a 5 kg weight loss from yesterday to today - Lasix is down to 40mg PO bid by nephrology. Will give one time extra dose of Lasix 40mg IV once and metolazone 2.5mg once. - Appreciate K replacement by primary team. Will add afternoon dose of K 40meq PO. - Monitor renal function and strict I/Os. Keep K>4; Mg>2 - Continue Eliquis 5 mg BID for hx of PAD, Lipitor 20 mg daily, carvedilol 3.125mg twice daily, spironolactone 25mg qd and Plavix 75 mg daily. Unable to start ARNI or SGLT2i due to renal dysfunction - Possible nuclear stress test for ischemic evaluation as outpatient. - Continue diuresis today. Probable discharge tomorrow. Documented By: Chase Larkin MD 05/09 0908 Signed By: <Electronically signed by Chase Larkin MD> 11/22/24 1417 <Electronically signed by DO CATRACHITA Garcia> 11/22/24 5700 [facility] Work Phone: 1(203) 960-206202-07-2025 [place] [address] Cardiology Progress Note Signed Patient: Char Alatorre MR#: [id number] : 1950 Acct:[id number] Age/Sex: 73 / M Adm Date: 5 Loc: Room: [address] [place] [address] Type: ADM IN Attending Dr: Turner Knott DO Copies to: ~ Date of Service: 11/22/2024 Subjective Principal diagnosis: Heart failure with reduced ejection fraction Interval history: Pt is awake and alert laying comfortable in the bed eating breakfast upon me walking into the room.No acute events overnight. His Yenifer is present atbedside. Yenifer states that patient's mental status improved from yesterday. Patient reports feeling well at this time. No chest pain, shortness of breath, palpitations, abdominal pain, nausea. Hypokalemia noted. Will add afternoon dose of oral K. Exam Physical Exam Vital Signs: Temp Pulse Resp BP Pulse Ox O2 Del Method O2 Flow Rate 97.5 F L 94 14 104/75 98 Room Air 2 11/22/24 08:00 11/22/24 08:00 11/22/24 08:00 11/22/24 08:00 11/22/24 08:00 11/22/24 08:00 11/22/24 04:00 FiO2 30 11/22/24 00:17 Narrative: General: Awake, A&O x 3, pleasant, cooperative, well nourished HENT: NC, AT Eyes: No scleral icterus Neck: Supple, trachea midline Cardio: RRR, no murmurs, rubs or gallops Respiratory: CTAB, no wheezes rhonchi or rales. No evidence of respiratory distress GI: Soft, nontender, nondistended Neuro: CN II-XII grossly intact, no focal neurologic deficit Extremities: 2+ pitting edema to the bilateral lower extremities with no erythema or warmth Psych: Affect, speech and movements normal. Mood congruent Objective Labs 11/22/24 04:05 11/22/24 04:05 Labs: Laboratory Results - last 24 hr 11/21/24 11/21/24 11/22/24 05:00 11:35 04:05 Corrected WBC 4.5 Uncorrected WBC Count 4.5 RBC 4.08 Hgb 9.1 L Hct 28.9 L MCV 70.8 L MCH 22.3 L MCHC 31.6 L RDW 18.6 H Plt Count 144 L MPV 6.8 Neut % (Auto) 71.2 Lymph % (Auto) 15.7 Gates % (Auto) 12.2 Eos % (Auto) 0.5 Baso % (Auto) 0.4 Nucleat RBC Rel Count 0.1 Neut # (Auto) 3.2 Lymph # (Auto) 0.7 L Gates # (Auto) 0.6 Eos # (Auto) 0.0 Baso # (Auto) 0.0 PHA Creatinine Clear 26.17 Sodium 136 Potassium 2.8 L* Chloride 98 Carbon Dioxide 30.4 Anion Gap 10.4 BUN 50 H Creatinine 2.80 H Est GFR (CKD-EPI) 23.244 Glucose 91 Calcium 9.1 Urine Color Light-yellow Urine Appearance Clear Urine pH 5.0 Ur Specific [place] 1.009 Urine Protein Negative Urine Glucose (UA) 100 H Urine Ketones Negative Urine Occult Blood 2+ H Urine Nitrite Negative Urine Bilirubin Negative Urine Urobilinogen Normal Ur Leukocyte Esterase Negative Urine RBC 50-100 H Urine WBC 1-2 Ur Squamous Epith Cells 1-2 Urine Bacteria Rare Hyaline Casts 0-8 Urine Mucus Rare Ur Random Creatinine 29.00 U Random Total Protein 14 H Protein/Creatinin Ratio 483 H PRANAY Homogeneous Pattern N/A A&P - Cardiology (1) Acute systolic (congestive) heart failure: Code(s): I50.21 - Acute systolic (congestive) heart failure (2) Acute kidney injury superimposed on CKD: Code(s): N17.9 - Acute kidney failure, unspecified; N18.9 - Chronic kidney disease, unspecified (3) Chronic respiratory failure with hypoxia: Code(s): J96.11 - Chronic respiratory failure with hypoxia (4) CHRIS (obstructive sleep apnea): Code(s): G47.33 - Obstructive sleep apnea (adult) (pediatric) (5) Pulmonary hypertension: Code(s): I27.20 - Pulmonary hypertension, unspecified Plan Acute decompensated HF. NYHA IV symptoms VIKY on CKD 3 - Likley due to cardiorenal syndrome. Possibly is his new baseline. Transaminitis Ischemic cardiomyopathy. EF 20-25% on 11/11/24 from [facility] CAD s/p to PCI to RCA 05/2024 Sarcopenia HLD HTN Pulmonary HTN- Likely Precapillary from untreated CHRIS COPD PAD s/p aortobifem bypass, R renal artery stenosis and occluded PABLO. On Eliquis. Severe untreated CHRIS Limited echo 11/11/2024 at [facility]: Severely reduced EF 20-25% with diffuse global hypokinesis, borderline RV systolic function, moderate severe biatrial dilatation, heavily calcified aortic valve with reduced mobility. [facility] 05/17/2024: RA 5, PA 35/17 (25) PCWP 4, cardiac output 3.7/cardiac index 1.7 TPG 21 mmHg, DPG 13 mmHg, PVR 5.6 Wood units. Consistent with precapillary pulmonary hypertension. C 05/22/2024: Left main: Patent, LAD: 40%, left circumflex minor irregularities,OM 280% proximal, OM 360% stenosis, RCA 80% proximal stenosis and 40% mid. Conclusion: Three-vessel coronary disease involving LAD, OM 2 and ostium branch of the RCA (80%) [facility] 05/29/2024: PCI to RCA with 4.0 x 15 mm Xience MINDY. Plans to continue Plavixand Eliquis for at least 1 year (May 2025) Echo 11/11/2024 at [facility]: Ejection fraction 20-25% which is changed from previous exam on 05/13/2024 with EF of 35-40%, mild eccentric left ventricular hypertrophy, diffuse global hypokinesis, severe dilatation of the left atrium, moderate dilatation of the right atrium, mildly thickened mitral valve with normal mobility, moderate to severely calcified aortic valve with reduced mobility, trivial pericardial effusion, normal right ventricular size with borderline systolic function. EKG 11/20/2024: Normal sinus rhythm with first-degree AV block ST-T changes suggestive of inferolateral ischemia Recommendations: - Still hypervolemic by clinical congestion, weight gain, elevated BNP and transaminitis suggestiveof congestive hepatopathy. Diuresis goal is 1.5 L/day. - Patient with significant diuresis, noting -3715 mL yesterday and -1800 mL so far today and about a 5 kg weight loss from yesterday to today - Lasix is down to 40mg PO bid by nephrology. Will give one time extra dose of Lasix 40mg IV once and metolazone 2.5mg once. - Appreciate K replacement by primary team. Will add afternoon dose of K 40meq PO. - Monitor renal function and strict I/Os. Keep K>4; Mg>2 - Continue Eliquis 5 mg BID for hx of PAD, Lipitor 20 mg daily, carvedilol 3.125mg twice daily, spironolactone 25mg qd and Plavix 75 mg daily. Unable to start ARNI or SGLT2i due to renal dysfunction - Possible nuclear stress test for ischemic evaluation as outpatient. - Continue diuresis today. Probable discharge tomorrow. Documented By: Chase Larkin MD 05/09 0908 Signed By: 11/22/24 1417 11/22/24 0944 [facility]02-07-2025 Progress note Author Magy Cummings [facility] Note Date/Time November 22, 2024 1 0:11am [facility] [address] [place] [address] Nephrology Progress Note Signed Patient: Char Alatorre MR#: [id number] : 1950 Acct:[id number] Age/Sex: 73 / M Adm Date: 5 Loc: Room: [address] [place] [address] Type: ADM IN Attending Dr: Turner Knott DO Copies to: ~ Date of Service: 11/22/2024 Subjective Subjective Narrative: This is a 73-year-old male with medical history of CKD, HFrEF, CAD s/p PCI, PAD s/p aortic bifemoral bypass, DM, HTN, HLD, pulmonary hypertension and CHRIS for increased shortness of breath and leg swelling. Patient was recently admitted at [facility] after a mechanical fall. He was found to have VIKY and his dose of diuretics were held and was given fluid resuscitation. He had echocardiogram during hospitalization which showed a worsening cardiac function with EF 20 to 25%. Patient was admitted at [facility] earlier this month for shortness of breath due to the CHF exacerbation. He was diuresis with IV Lasix but upon discharge due to his worsening renal function hewas advised to hold Lasix and take it only if he gains weight. Patient has a known history of CKD with baseline serum creatinine 2 to 2.1 mg/dL and follows in our office for his CKD care. Patient on admission was found to have worsening renal function with elevated serum creatinine 3.0 mg/dL above his baseline. Nephrology is consulted for VIKY with CKD management. He had a bladder scan which showed 260 mL postvoid residual urinary volume. Benavidez catheter was placement after my recommendation. Interim history Patient was seen and examined bedside. He is feeling much better today denies any chest pain palpitation cough nausea vomit diarrhea shortness of breath. He has a very good urine output after he was given metolazone. Exam Physical Exam Vital Signs: Temp Pulse Resp BP Pulse Ox O2 Del Method O2 Flow Rate 97.5 F L 94 14 104/75 98 Room Air 2 11/22/24 08:00 11/22/24 08:00 11/22/24 08:00 11/22/24 08:00 11/22/24 08:00 11/22/24 08:00 11/22/24 04:00 FiO2 30 11/22/24 00:17 Narrative: General: Appears comfortable and not in distress Heart: S1-S2, no rub Lung: Bilateral air entry, no wheezing or crackles Abdomen: Soft, positive bowel sounds Extremities: No edema, no cyanosis Head: Atraumatic, normocephalic Ear: No gross hearing Deficit or external ear redness Eyes: No pallor or redness Neck: NO JVD or visible mass Skin: No rashes , warm to touch [employer]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: 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,Alert, following simple command Musculoskeletal: No swelling or limitation of movement of the large joints Psychiatric: Cooperative, normal mood and affect Objective Intake and Output I&O: Intake & Output 11/19/24 11/20/24 11/21/24 11/22/24 23:59 23:59 23:59 23:59 Intake Total 100 / 100 1010 / 1010 340 / 340 Output Total 300 / 300 4725 / 4725 1900 / 1900 Balance -200 / -200 -3715 / -3715 -1560 / -1560 Weight 84.6 kg 83.5 kg 78.3 kg Meds and Allergies Meds: Active Medications Acetaminophen (Acetaminophen 325 Mg Tablet) 650 mg PO Q4H PRN PRN Reason: Pain Scale 1 - 3 or fever Stop: 11/20/25 14:15 Last Admin: 11/21/24 08:33 Dose: 650 mg Apixaban (Apixaban 5 Mg Tablet) 5 mg PO BID BERNIE Stop: 11/20/25 20:59 Last Admin: 11/22/24 08:10 Dose: 5 mg Atorvastatin Calcium (Atorvastatin 20 Mg Tablet) 20 mg PO DAILY BERNIE Stop: 11/21/25 08:59 Last Admin: 11/22/24 08:10 Dose: 20 mg Clopidogrel Bisulfate (Clopidogrel Bisulfate 75 Mg Tablet) 75 mg PO DAILY BERNIE Stop: 11/21/25 08:59 Last Admin: 11/22/24 08:10 Dose: 75 mg Docusate Sodium (Docusate 100 Mg Capsule) 100 mg PO BID BERNIE Stop: 11/21/25 20:59 Last Admin: 11/22/24 08:10 Dose: 100 mg Ezetimibe (Ezetimibe 10 Mg Tablet) 10 mg PO DAILY BERNIE Stop: 11/21/25 08:59 Last Admin: 11/22/24 08:10 Dose: 10 mg Furosemide (Furosemide 100 Mg/10 Ml Vial) 40 mg IV-PUSH BID@0800,1600 [facility] Stop: 11/22/25 15:59 Ferric Sodium Gluconate Complex 250 mg/ Sodium Chloride 270 mls @ 135 mls/hr IVQAM [facility] Stop: 11/24/24 10:59 Last Admin: 11/22/24 09:03 Dose: 135 mls/hr Multi-Ingredient Cream (Lanolin Alcohol/Mo/W.Pet/[place] (Minerin) 454 Gm Jar) 1 applic TOPICAL BID [facility] Stop: 11/21/25 12:59 Last Admin: 11/22/24 09:03 Dose: 1 applic Multivitamins (Multivitamin 1 Tab Tablet) 1 tab PO DAILY [facility] Stop: 11/21/25 10:44 Last Admin: 11/22/24 08:10 Dose: 1 tab Nitroglycerin (Nitroglycerin 0.4 Mg Tab.Subl) 0.4 mg SUBLINGUAL Q5M PRN PRN Reason: Chest Pain Stop: 11/20/25 14:15 Nortriptyline HCl (Nortriptyline 25 Mg Capsule) 25 mg PO QPM [facility] Stop: 11/21/25 20:59 Last Admin: 11/21/24 20:26 Dose: 25 mg Psyllium Hydrophilic Mucilloid (Psyllium Husk 3.4 Gm Packet) 1 packet PO BID [facility] Stop: 11/22/25 20:59 Sennosides (Sennosides 8.6 Mg Tablet) 8.6 mg PO QPM BERNIE Stop: 11/21/25 20:59 Last Admin: 11/21/24 20:26 Dose: 8.6 mg Sodium Chloride (Sodium Chloride 0.9 % 10 Ml Syringe) 0 ml IV-PUSH PRN PRN PRN Reason: Flush Stop: 11/20/25 14:15 Last Admin: 11/21/24 15:16 Dose: 10 ml Spironolactone (Spironolactone 25 Mg Tablet) 25 mg PO DAILY BERNIE Stop: 11/22/25 08:59 Last Admin: 11/22/24 09:02 Dose: 25 mg Vitamin D (Cholecalciferol 25 Mcg (1,000 Units) Tablet) 50 mcg PO DAILY BERNIE Stop: 11/21/25 08:59 Last Admin: 11/22/24 08:10 Dose: 50 mcg Allergies No Known Allergies Allergy (Verified 11/20/24 10:02) Results - Nephrology Labs 11/22/24 04:05 11/22/24 04:05 Labs: 11/21/24 11/22/24 11:35 04:05 BUN 50 H Creatinine 2.80 H Urine Color Light-yellow Urine Appearance Clear Urine pH 5.0 Ur Specific [place] 1.009 Urine Protein Negative Urine Glucose (UA) 100 H Urine Ketones Negative Urine Occult Blood 2+ H Urine Nitrite Negative Ur Leukocyte Esterase Negative Urine RBC 50-100 H Urine WBC 1-2 Urine Bacteria Rare Protein/Creatinin Ratio 483 H Radiology Impressions Impressions - last 24 hours: Impressions Foot X-Ray 11/21/24 12:07 IMPRESSION: SOFT TISSUE SWELLING WITHOUT ACUTE BONY PROCESS. Impression dictated by: Lakhwinder Mathias Jr., D.O.11/21/2024 3:53 PM Dictation Location: [place] [address] Any impression(s) listed above is documentation that was entered by the reading physician into a diagnostic report(s) for Char Alatorre. I have reviewed the report(s) and am incorporating any findings in the treatment plan of this patient where applicable. A&P - Nephrology Assessment/Plan (1) Acute kidney injury superimposed on CKD: Assessment/Problem Details: He has an VIKY on CKD likely due to the cardiorenal syndrome. His renal functionhas been improving with diuresis. He is making adequate urine output. 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 His renal function has been declining due to the progression of the CKD. His baseline serum creatinine is around 2 to 2.1 mg/dL. He has atrophic right kidney. 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 He appears to be euvolemic. (4) Iron deficiency anemia: Assessment/Problem Details: Patient has anemia due to the CKD and iron deficiency. (5) Acute systolic (congestive) heart failure: Assessment/Problem Details: Patient was admitted for shortness of breath and increased leg swelling. He haselevated BNP and his most recent echocardiogram showed EF 20 to 25%. Plan * Will change to the oral Lasix 40 g p.o. twice daily * Will give potassium chloride 40 mEq p.o. x 1 dose and repeat the potassium this afternoon. Will also check magnesium. * Will start spironolactone 25 mg PO daily. * Will give ferric gluconate 250 mg IV daily x 4 doses. * Will follow the result of PRANAY and ANCA. 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 * Continue Benavidez care for urinary retention and Benavidez strict I's and O's. * Check renal function daily and monitor input output * Continue workup for cardiomyopathy as per cardiology. * Documented By: Magy Cummings MD 11/22/24 1001 Signed By: <Electronically signed by Magy Cummings MD> 11/22/24 1011 [facility] Work Phone: [phone]) 199-563002-07-2025 [place] [id number] Nephrology Progress Note Signed Patient: Char Alatorre MR#: [id number] : 1950 Acct:[id number] Age/Sex: 73 / M Adm Date: 5 Loc: 4 Room: [address] [place] [address] Type: ADM IN Attending Dr: Turner Knott DO Copies to: ~ Date of Service: 11/22/2024 Subjective Subjective Narrative: This is a 73-year-old male with medical history of CKD, HFrEF, CAD s/p PCI, PAD s/p aortic bifemoral bypass, DM, HTN, HLD, pulmonary hypertension and CHRIS for increased shortness of breath and leg swelling. Patient was recently admitted at [facility] after a mechanical fall. He was found to have VIKY and his dose of diuretics were held and was given fluid resuscitation. He had echocardiogramduring hospitalization which showed a worsening cardiac function with EF 20 to 25%. Patient was admitted at [facility] earlier this month for shortness of breath due to the CHFexacerbation. He was diuresis with IV Lasix but upon discharge due to his worsening renal function h ewas advised to hold Lasix and take it only if he gains weight. Patient has a known history of CKD with baseline serum creatinine 2 to 2.1 mg/dL and follows in our office for his CKD care. Patient on admission was found to have worsening renal function with elevated serum creatinine 3.0 mg/dL above his baseline. Nephrology is consulted for VIKY with CKD management. He had a bladder scanwhich showed 260 mL postvoid residual urinary volume. Benavidez catheter was placement after my recommendation. Interim history Patient was seen and examined bedside. He is feeling much better today denies any chest pain palpitation cough nausea vomit diarrhea shortness of breath. He has a very good urine output after he was given metolazone. Exam Physical Exam Vital Signs: Temp Pulse Resp BP Pulse Ox O2 Del Method O2 Flow Rate 97.5 F L 94 14 104/75 98 Room Air 2 11/22/24 08:00 11/22/24 08:00 11/22/24 08:00 11/22/24 08:00 11/22/24 08:00 11/22/24 08:00 11/22/24 04:00 FiO2 30 11/22/24 00:17 Narrative: General: Appears comfortable and not in distress Heart: S1-S2, no rub Lung: Bilateral air entry, no wheezing or crackles Abdomen: Soft, positive bowel sounds Extremities: No edema, no cyanosis Head: Atraumatic, normocephalic Ear: No gross hearing Deficit or external ear redness Eyes: No pallor or redness Neck: NO JVD or visible mass Skin: No rashes , warm to touch INTERN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: Awake,Alert, following simple command Musculoskeletal: No swelling or limitation of movement of the large joints Psychiatric: Cooperative, normal mood and affect Objective Intake and Output I&O: Intake & Output 11/19/24 11/20/24 11/21/24 11/22/24 23:59 23:59 23:59 23:59 Intake Total 100 / 100 1010 / 1010 340 / 340 Output Total 300 / 300 4725 / 4725 1900 / 1900 Balance -200 / -200 -3715 / -3715 -1560 / -1560 Weight 84.6 kg 83.5 kg 78.3 kg Meds and Allergies Meds: Active Medications Acetaminophen (Acetaminophen 325 Mg Tablet) 650 mg PO Q4H PRN PRN Reason: Pain Scale 1 - 3 or fever Stop: 11/20/25 14:15 Last Admin: 11/21/24 08:33 Dose: 650 mg Apixaban (Apixaban 5 Mg Tablet) 5 mg PO BID [facility] Stop: 11/20/25 20:59 Last Admin: 11/22/24 08:10 Dose: 5 mg Atorvastatin Calcium (Atorvastatin 20 Mg Tablet) 20 mg PO DAILY BERNIE Stop: 11/21/25 08:59 Last Admin: 11/22/24 08:10 Dose: 20 mg Clopidogrel Bisulfate (Clopidogrel Bisulfate 75 Mg Tablet) 75 mg PO DAILY BERNIE Stop: 11/21/25 08:59 Last Admin: 11/22/24 08:10 Dose: 75 mg Docusate Sodium (Docusate 100 Mg Capsule) 100 mg PO BID [facility] Stop: 11/21/25 20:59 Last Admin: 11/22/24 08:10 Dose: 100 mg Ezetimibe (Ezetimibe 10 Mg Tablet) 10 mg PO DAILY BERNIE Stop: 11/21/25 08:59 Last Admin: 11/22/24 08:10 Dose: 10 mg Furosemide (Furosemide 100 Mg/10 Ml Vial) 40 mg IV-PUSH BID@0800,1600 [facility] Stop: 11/22/25 15:59 Ferric Sodium Gluconate Complex 250 mg/ Sodium Chloride 270 mls @ 135 mls/hr IVQAM [facility] Stop: 11/24/24 10:59 Last Admin: 11/22/24 09:03 Dose: 135 mls/hr Multi-Ingredient Cream (Lanolin Alcohol/Mo/W.Pet/[place] (Minerin) 454 Gm Jar) 1 applic TOPICAL BID [facility] Stop: 11/21/25 12:59 Last Admin: 11/22/24 09:03 Dose: 1 applic Multivitamins (Multivitamin 1 Tab Tablet) 1 tab PO DAILY BERNIE Stop: 11/21/25 10:44 Last Admin: 11/22/24 08:10 Dose: 1 tab Nitroglycerin (Nitroglycerin 0.4 Mg Tab.Subl) 0.4 mg SUBLINGUAL Q5M PRN PRN Reason: Chest Pain Stop: 11/20/25 14:15 Nortriptyline HCl (Nortriptyline 25 Mg Capsule) 25 mg PO QPM BERNIE Stop: 11/21/25 20:59 Last Admin: 11/21/24 20:26 Dose: 25 mg Psyllium Hydrophilic Mucilloid (Psyllium Husk 3.4 Gm Packet) 1 packet PO BID BERNIE Stop: 11/22/25 20:59 Sennosides (Sennosides 8.6 Mg Tablet) 8.6 mg PO QPM BERNIE Stop: 11/21/25 20:59 Last Admin: 11/21/24 20:26 Dose: 8.6 mg Sodium Chloride (Sodium Chloride 0.9 % 10 Ml Syringe) 0 ml IV-PUSH PRN PRN PRN Reason: Flush Stop: 11/20/25 14:15 Last Admin: 11/21/24 15:16 Dose: 10 ml Spironolactone (Spironolactone 25 Mg Tablet) 25 mg PO DAILY BERNIE Stop: 11/22/25 08:59 Last Admin: 11/22/24 09:02 Dose: 25 mg Vitamin D (Cholecalciferol 25 Mcg (1,000 Units) Tablet) 50 mcg PO DAILY BERNIE Stop: 11/21/25 08:59 Last Admin: 11/22/24 08:10 Dose: 50 mcg Allergies No Known Allergies Allergy (Verified 11/20/24 10:02) Results - Nephrology Labs 11/22/24 04:05 11/22/24 04:05 Labs: 11/21/24 11/22/24 11:35 04:05 BUN 50 H Creatinine 2.80 H Urine Color Light-yellow Urine Appearance Clear Urine pH 5.0 Ur Specific [place] 1.009 Urine Protein Negative Urine Glucose (UA) 100 H Urine Ketones Negative Urine Occult Blood 2+ H Urine Nitrite Negative Ur Leukocyte Esterase Negative Urine RBC 50-100 H Urine WBC 1-2 Urine Bacteria Rare Protein/Creatinin Ratio 483 H Radiology Impressions Impressions - last 24 hours: Impressions Foot X-Ray 11/21/24 12:07 IMPRESSION: SOFT TISSUE SWELLING WITHOUT ACUTE BONY PROCESS. Impression dictated by: Lakhwinder Mathias Jr., D.O.11/21/2024 3:53 PM Dictation Location: [place] [address] Any impression(s) listed above is documentation that was entered by the reading physician into a diagnostic report(s) for Char Tyler Celi. I have reviewed the report(s) and am incorporating any findings in the treatment plan of this patient where applicable. A&P - Nephrology Assessment/Plan (1) Acute kidney injury superimposed on CKD: Assessment/Problem Details: He has an VIKY on CKD likely due to the cardiorenal syndrome. His renal functionhas been improving with diuresis. He is making adequate urine output. 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 His renal function has been declining due to the progression of the CKD. His baseline serum creatinine is around 2 to 2.1 mg/dL. He has atrophic right kidney. 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 He appears to be euvolemic. (4) Iron deficiency anemia: Assessment/Problem Details: Patient has anemia due to the CKD and iron deficiency. (5) Acute systolic (congestive) heart failure: Assessment/Problem Details: Patient was admitted for shortness of breath and increased leg swelling. He haselevated BNP and hismost recent echocardiogram showed EF 20 to 25%. Plan * Will change to the oral Lasix 40 g p.o. twice daily * Will give potassium chloride 40 mEq p.o. x 1 dose and repeat the potassium this afternoon. Will also check magnesium. * Will start spironolactone 25 mg PO daily. * Will give ferric gluconate 250 mg IV daily x 4 doses. * Will follow the result of PRANAY and ANCA. 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 * Continue Benavidez care for urinary retention and Benavidez strict I's and O's. * Check renal function daily and monitor input output * Continue workup for cardiomyopathy as per cardiology. * Documented By: Magy Cummings MD 11/22/24 1001 Signed By: 11/22/24 1011 [facility]02-06-2025 Progress note Author Chase Larkin [facility] Note Date/Time November 21, 2024 1 1:43am [facility] [address] [place] [address] Cardiology Progress Note Signed Patient: Char Alatorre MR#: [id number] : 1950 Acct:[id number] Age/Sex: 73 / M Adm Date: 5 Loc: Room: [address] [place] [address] Type: ADM IN Attending Dr: Turner Knott DO Copies to: ~ Date of Service: 11/21/2024 Subjective Principal diagnosis: Heart failure with reduced ejection fraction Interval history: Patient is awake and alert sitting up in the chair upon walking the room. Sleepyon recliner during my visit. No acute events overnight. He states that he feels fuzzy but overall feels physically better than he did on admission. States he has no chest pain or difficulty breathing. I/O net neg -1100 ml over the last 24 hrs. Exam Physical Exam Vital Signs: Temp Pulse Resp BP Pulse Ox O2 Del Method O2 Flow Rate 97.4 F L 85 20 121/66 97 Nasal Cannula 2 11/21/24 07:30 11/21/24 07:30 11/21/24 07:30 11/21/24 07:30 11/21/24 07:30 11/21/24 07:30 11/21/24 07:30 FiO2 30 11/21/24 04:00 Narrative: General: Awake, A&O x 3, pleasant, cooperative, well nourished HENT: NC, AT. Nasal cannula in place on 2 L Eyes: No scleral icterus Neck: Supple, trachea midline Cardio: RRR, no murmurs, rubs or gallops Respiratory: CTAB, no wheezes rhonchi or rales. No evidence of respiratory distress GI: Soft, nontender, nondistended : Benavidez catheter in place with approximately 400 cc of yellow urine in the Benavidez bag Neuro: CN II-XII grossly intact, no focal neurologic deficit Extremities: 2-3+ pitting edema to the bilateral lower extremities with no erythema or warmth Psych: Affect, speech and movements normal. Mood congruent Objective Labs 11/21/24 05:00 11/21/24 05:00 Labs: Laboratory Results - last 24 hr 11/20/24 11/21/24 15:27 05:00 Corrected WBC 6.6 5.1 Uncorrected WBC Count 6.6 5.1 RBC 4.36 4.05 Hgb 10.0 L 9.1 L Hct 31.4 L 29.0 L MCV 72.1 L 71.4 L MCH 23.0 L 22.4 L MCHC 31.9 L 31.3 L RDW 18.5 H 18.8 H Plt Count 217 160 D MPV 7.0 6.8 Neut % (Auto) 72.1 73.6 Lymph % (Auto) 14.2 11.8 Gates % (Auto) 12.7 13.3 Eos % (Auto) 0.3 0.8 Baso % (Auto) 0.7 0.5 Nucleat RBC Rel Count 0.3 0.1 Neut # (Auto) 4.8 3.7 Lymph # (Auto) 0.9 L 0.6 L Gates # (Auto) 0.8 0.7 Eos # (Auto) 0.0 0.0 Baso # (Auto) 0.0 0.0 Absolute Retic 0.104 H Percent Retic 2.6 H PT 30.9 H INR 2.8 APTT 41.0 H PHA Creatinine Clear N/A 24.93 Sodium 131 L 135 L Potassium 4.4 3.6 Chloride 101 101 Carbon Dioxide 22.7 26.7 Anion Gap 11.7 10.9 BUN 61 H 58 H Creatinine 3.04 H 2.94 H Est GFR (CKD-EPI) 21.060 21.923 Glucose 108 H 100 Calcium 9.5 9.2 Magnesium 2.4 Iron 14 L TIBC 307 Iron Saturation 4.6 L Transferrin 219 Ferritin 50.9 Total Bilirubin 1.5 H Direct Bilirubin 0.70 H Indirect Bilirubin 0.8 AST 42 H ALT 76 H Alkaline Phosphatase 159 H B-Natriuretic Peptide 5962.0 H 4694.0 H Total Protein 6.3 L Albumin 3.0 L Globulin 3.3 Albumin/Globulin Ratio 0.9 Prealbumin 9.1 L Vitamin B12 734 Folate 8.2 A&P - Cardiology (1) Acute systolic (congestive) heart failure: Code(s): I50.21 - Acute systolic (congestive) heart failure (2) Acute kidney injury superimposed on CKD: Code(s): N17.9 - Acute kidney failure, unspecified; N18.9 - Chronic kidney disease, unspecified (3) Chronic respiratory failure with hypoxia: Code(s): J96.11 - Chronic respiratory failure with hypoxia (4) CHRIS (obstructive sleep apnea): Code(s): G47.33 - Obstructive sleep apnea (adult) (pediatric) (5) Pulmonary hypertension: Code(s): I27.20 - Pulmonary hypertension, unspecified Plan Acute decompensated HF. NYHA IV symptoms VIKY on CKD 3- Cardiorenal syndrome Transaminitis Ischemic cardiomyopathy. EF 20-25% on 11/11/24 from [facility] CAD s/p to PCI to RCA 05/2024 Sarcopenia HLD HTN Pulmonary HTN- Likely Precapillary from untreated CHRIS COPD PAD s/p aortobifem bypass, R renal artery stenosis and occluded PABLO. On Eliquis. Severe untreated CHRIS Limited echo 11/11/2024 at [facility]: Severely reduced EF 20-25% with diffuse global hypokinesis, borderline RV systolic function, moderate severe biatrial dilatation, heavily calcified aortic valve with reduced mobility. [facility] 05/17/2024: RA 5, PA 35/17 (25) PCWP 4, cardiac output 3.7/cardiac index 1.7 TPG 21 mmHg, DPG 13 mmHg, PVR 5.6 Wood units. Consistent with precapillary pulmonary hypertension. [facility] 05/22/2024: Left main: Patent, LAD: 40%, left circumflex minor irregularities,OM 280% proximal, OM 360% stenosis, RCA 80% proximal stenosis and 40% mid. Conclusion: Three-vessel coronary disease involving LAD, OM 2 and ostium branch of the RCA (80%) [facility] 05/29/2024: PCI to RCA with 4.0 x 15 mm Xience MINDY. Plans to continue Plavixand Eliquis for at least 1 year (May 2025) Echo 11/11/2024 at [facility]: Ejection fraction 20-25% which is changed from previous exam on 05/13/2024 with EF of 35-40%, mild eccentric left ventricular hypertrophy, diffuse global hypokinesis, severe dilatation of the left atrium, moderate dilatation of the right atrium, mildly thickened mitral valve with normal mobility, moderate to severely calcified aortic valve with reduced mobility, trivial pericardial effusion, normal right ventricular size with borderline systolic function. EKG 11/20/2024: Normal sinus rhythm with first-degree AV block ST-T changes suggestive of inferolateral ischemia Recommendations: - Still hypervolemic by clinical congestion, weight gain, elevated BNP and transaminitis suggestive of congestive hepatopathy. Diuresis goal is 1.5 L/day. Yesterday he was net -1100 cc. Continue diuresis with Lasix IV. Add metolazone x1 dose today. - Monitor renal function and strict I/Os. Keep K>4; Mg>2 - Continue Eliquis 5 mg BID for hx of PAD, Lipitor 20 mg daily, carvedilol 3.125mg twice daily and Plavix 75 mg daily. Unable to start MRA/ARNI or SGLT2i due torenal dysfunction - Will consider nuclear stress test for ischemic evaluation once euvolemic. - Appreciate nephrology recommendations. - Will follow. Attending note: I saw the patient personally on the day of encounter. I reviewed the relevant history, and performed the medina elements of the physical examination. I reviewedthe relevant laboratory workup, radiological studies and the current treatment plan. I formulated the plan of care and confirmed it with the resident/student/HALL MANAGER. Documented By: Chase Larkin MD 04/09 0852 Signed By: <Electronically signed by Chase Larkin MD> 11/21/24 [address] [facility] Work Phone: [phone]) 669-263402-06-2025 Consult note Author Magy Cummings [facility] Note Date/Time November 21, 2024 1 1:05am [facility] [address] [place] [address] Nephrology Consult Note Signed Patient: Char Alatorre MR#: [id number] : 1950 Acct:[id number] Age/Sex: 73 / M Adm Date: 5 Loc: Room: [address] [place] [address] Type: ADM IN Attending Dr: Turner Knott DO Copies to: MD Turner Tracy DO Rugen M Alda, MD~ Providers Consult Date: 11/21/24 Requesting Provider: Turner Knott DO Primary Care Provider: Justin Martinez MD HPI Reason for Consult: VIKY on CKD management History of Present Illness: This is a 73-year-old male with medical history of CKD, HFrEF, CAD s/p PCI, PAD s/p aortic bifemoral bypass, DM, HTN, HLD, pulmonary hypertension and CHRIS for increased shortness of breath and leg swelling. Patient was recently admitted at [facility] after a mechanical fall. He was found to have VIKY and his dose of diuretics were held and was given fluid resuscitation. He had echocardiogram during hospitalization which showed a worsening cardiac function with EF 20 to 25%. Patient was admitted at [facility] earlier this month for shortness of breath due to the CHF exacerbation. He was diuresis with IV Lasix but upon discharge due to his worsening renal function hewas advised to hold Lasix and take it only if he gains weight. Patient has a known history of CKD with baseline serum creatinine 2 to 2.1 mg/dL and follows in our office for his CKD care. Patient on admission was found to have worsening renal function with elevated serum creatinine 3.0 mg/dL above his baseline. Nephrology is consulted for VIKY with CKD management. He had a bladder scan which showed 260 mL postvoid residual urinary volume. Benavidez catheter was placement after my recommendation. Patient was also having a difficulty to have IV access and PICC line was placed after my approval. Patient also seen by the cardiology and was started on IV Lasix. Patient was seen and examined bedside feeling little better than yesterday. 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 Atrophic kidney Alcohol abuse Abdominal aortic aneurysm Surgical History History of peripheral artery bypass History of PTCA Hx of cardiac catheterization x 3 Hx of resection of small bowel Hx of cholecystectomy Hx of cataract removal with insertion of prosthetic lens Hx of colonoscopy (~2018) History of abdominal aortic aneurysm repair History of back surgery History of right-sided carotid endarterectomy H/O hemorrhoidectomy Family History Brother Cancer Legacy FamHx Relation: Brother(s); Legacy FamHx Problem: Diagnosed with Cancer Bicuspid cardiac valve Father Cancer Legacy FamHx Problem: Diagnosed with Cancer Hypertension Mother Family history of pancreatic cancer Cancer Legacy FamHx Problem: Diagnosed with Cancer Sister Cancer Legacy FamHx Problem: Diagnosed with Cancer Lung cancer Social History Smoking Status: Former smoker Tobacco Type: cigarettes Substance Use Type: None Substance Abuse Comment: One beer a week Meds Medications & Allergies Allergies No Known Allergies Allergy (Verified 11/20/24 10:02) Home Medications apixaban 5 mg tablet (Eliquis) 5 mg PO BID 01/25/24 [History Confirmed 11/20/24] cholecalciferol (vitamin D3) 50 mcg (2,000 unit) capsule 2,000 unit PO DAILY 02/22/24 [History Confirmed 11/20/24] clopidogrel 75 mg tablet (Plavix) 75 mg PO DAILY 06/06/24 [History Confirmed 11/20/24] methylcellulose (with sugar) 2 gram/19 gram oral powder 1 tbsp PO DAILY 06/06/24[History Confirmed 11/20/24] carvedilol 3.125 mg tablet 3.125 mg PO BID 09/16/24 [History Confirmed 11/20/24] ferrous sulfate 325 mg (65 mg iron) tablet 325 mg PO Q48HR #45 tabs 09/16/24 [Rx Confirmed 11/20/24] nortriptyline 25 mg capsule 50 mg PO QHS 09/16/24 [History Confirmed 11/20/24] cyanocobalamin (vitamin B-12) 1,000 mcg/mL injection solution 1,000 mcg IM .monthly 10/19/24 [History Confirmed 11/20/24] psyllium husk (aspartame) 3.4 gram oral powder packet (Metamucil Fiber Singles) 1 packet PO DAILY 30 days #30 ea 10/20/24 [Rx Confirmed 11/20/24] atorvastatin 20 mg tablet 20 mg PO DAILY 11/20/24 [History Confirmed 11/20/24] ezetimibe 10 mg tablet (Zetia) 10 mg PO DAILY 11/20/24 [History Confirmed 11/20/24] furosemide 20 mg tablet 20 mg PO DAILY 11/20/24 [History Confirmed 11/20/24] Active Medications: Active Medications Acetaminophen (Acetaminophen 325 Mg Tablet) 650 mg PO Q4H PRN PRN Reason: Pain Scale 1 - 3 or fever Stop: 11/20/25 14:15 Apixaban (Apixaban 5 Mg Tablet) 5 mg PO BID BERNIE Stop: 11/20/25 20:59 Last Admin: 11/21/24 04:52 Dose: Not Given Atorvastatin Calcium (Atorvastatin 20 Mg Tablet) 20 mg PO DAILY BERNIE Stop: 11/21/25 08:59 Clopidogrel Bisulfate (Clopidogrel Bisulfate 75 Mg Tablet) 75 mg PO DAILY BERNIE Stop: 11/21/25 08:59 Ezetimibe (Ezetimibe 10 Mg Tablet) 10 mg PO DAILY BERNIE Stop: 11/21/25 08:59 Furosemide (Furosemide 100 Mg/10 Ml Vial) 80 mg IV-PUSH BID@0800,1600 BERNIE Stop: 11/20/25 20:14 Last Admin: 11/20/24 21:12 Dose: 80 mg Nitroglycerin (Nitroglycerin 0.4 Mg Tab.Subl) 0.4 mg SUBLINGUAL Q5M PRN PRN Reason: Chest Pain Stop: 11/20/25 14:15 Nortriptyline HCl (Nortriptyline 25 Mg Capsule) 50 mg PO QHS BERNEI Stop: 11/20/25 21:59 Last Admin: 11/21/24 04:52 Dose: Not Given Psyllium Hydrophilic Mucilloid (Psyllium Husk 3.4 Gm Packet) 1 packet PO DAILY [facility] Stop: 11/21/25 08:59 Sodium Chloride (Sodium Chloride 0.9 % 10 Ml Syringe) 0 ml IV-PUSH PRN PRN PRN Reason: Flush Stop: 11/20/25 14:15 Last Admin: 11/20/24 21:14 Dose: 10 ml Vitamin D (Cholecalciferol 25 Mcg (1,000 Units) Tablet) 50 mcg PO DAILY BERNIE Stop: 11/21/25 08:59 Exam Physical Exam Vital Signs: Temp Pulse Resp BP Pulse Ox O2 Del Method O2 Flow Rate 97.6 F 85 20 121/66 97 Nasal Cannula 2 11/20/24 20:00 11/21/24 07:30 11/21/24 07:30 11/21/24 07:30 11/21/24 07:30 11/21/24 07:30 11/21/24 07:30 FiO2 30 11/21/24 04:00 Narrative: With found to have a elevated BNP general: Appears comfortable and not in distress Heart: S1-S2, no rub Lung: Bilateral air entry, no wheezing or crackles Abdomen: Soft, positive bowel sounds Extremities: 1+ edema, no cyanosis Head: Atraumatic, normocephalic Ear: No gross hearing Deficit or external ear redness Eyes: No pallor or redness Neck: + JVD or visible mass Skin: No rashes , warm to touch [employer]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: Awake,Alert, following simple command Musculoskeletal: No swelling or limitation of movement of the large joints Psychiatric: Cooperative, normal mood and affect Results - Nephrology Labs 11/21/24 05:00 11/21/24 05:00 Labs: 11/20/24 11/21/24 15:27 05:00 BUN 61 H 58 H Creatinine 3.04 H 2.94 H Iron Saturation 4.6 L Ferritin 50.9 Albumin 3.0 L Radiology Impressions Impressions - last 24 hours: Any impression(s) listed above is documentation that was entered by the reading physician into a diagnostic report(s) for Char Alatorre. I have reviewed the report(s) and am incorporating any findings in the treatment plan of this patient where applicable. A&P - Nephrology Assessment/Plan (1) Acute kidney injury superimposed on CKD: Assessment/Problem Details: He has an VIKY on CKD likely due to the cardiorenal syndrome. 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 His renal function has been declining due to the progression of the CKD. His baseline serum creatinine is around 2 to 2.1 mg/dL. He has atrophic right kidney. 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 He appears to be hypovolemic. (4) Iron deficiency anemia: Assessment/Problem Details: Patient has anemia due to examination of the CKD and iron deficiency. (5) Acute systolic (congestive) heart failure: Assessment/Problem Details: Patient was admitted for shortness of breath and increased leg swelling. He haselevated BNP and his most recent echocardiogram showed EF 20 to 25%. Plan * No need for emergent hemodialysis now. Will continue to assess its needs on regular basis. * Continue IV Lasix. * Will give ferric gluconate 250 mg IV daily x 4 doses. * Will follow the result of PRANAY and ANCA. 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 Will also check the UA and UPCR. * Continue Benavidez care for urinary retention and Benavidez strict I's and O's. * Check renal function daily and monitor input output * Continue workup for cardiomyopathy as per cardiology. * Thanks for consult. Will continue follow with you. Please please feel free to call us with any question. Documented By: Magy Cummings MD 11/21/24 0806 Signed By: <Electronically signed by Magy Cummings MD> 11/21/24 [address] [facility] Work Phone: 1(860) 399-185502-06-2025 Progress note Author Turner Knott [facility] Note Date/Time November 21, 2024 1 0:45am [facility] [address] [place] [address] Hospitalist Progress Note Signed Patient: Char Alatorre MR#: [id number] : 1950 Acct:[id number] Age/Sex: 73 / M Adm Date: 5 Loc: Room: [address] [place] [address] Type: ADM IN Attending Dr: uTrner Kntot DO Copies to: ~ Date of Service: 11/21/2024 Subjective Subjective Narrative: This morning the patient is up and into chair. He is very sleepy. It takes a few minutes for him to wake up when I come into the my examination. On reading the notes it looks like he was able to wear BiPAP a little bit last night after first trying to refuse it. Nursing notes that last night did describe that they found the patient to be extremely confused and just very disoriented and having hard time with all cognition. This morning he denies sensation of shortness of breath. He denies sensation ofchest pain. He then falls asleep after I leave the room and finished working with him. Exam Physical Exam Vital Signs: Temp Pulse Resp BP Pulse Ox O2 Del Method O2 Flow Rate 97.4 F L 85 20 121/66 97 Nasal Cannula 2 11/21/24 07:30 11/21/24 07:30 11/21/24 07:30 11/21/24 07:30 11/21/24 07:30 11/21/24 07:30 11/21/24 07:30 FiO2 30 11/21/24 04:00 Narrative: General: Out of bed in a chair. Falling asleep sitting up in a chair. Pulmonary: Clear to auscultation bilaterally without any wheezing. Moderately diminished in the bases. 1 her percent oxygenation on 2 L nasal cannula. I puthim on room air. So far he is oxygenating at 97% on room air. GI: Abdomen soft, normal bowel sounds to auscultation, mild amount of edema throughout the abdomen but no severe ascites. Cardiac: Normal sinus rhythm on the monitor. No rubs gallops to auscultation. Lower extremities: Moderate amount of improvement in lower extremity edema todaycompared to yesterday before he got Lasix. : Benavidez catheter is draining a good volume of urine without any purulence, cloudiness, or blood. Objective Lab Results 11/21/24 05:00 11/21/24 05:00 Meds Allergies and Active Meds Allergies No Known Allergies Allergy (Verified 11/20/24 10:02) Active Meds: Active Medications Generic Name Dose Route Start Last Admin Trade Name Freq PRN Reason Stop Dose Admin Acetaminophen 650 mg 11/20/24 14:16 11/21/24 08:33 Acetaminophen 325 Mg Tablet PO 11/20/25 14:15 650 mg Q4H PRN Administration Pain Scale 1 - 3 or fever Apixaban 5 mg 11/20/24 21:00 11/21/24 08:34 Apixaban 5 Mg Tablet PO 11/20/25 20:59 5 mg BID BERNIE Administration Atorvastatin Calcium 20 mg 11/21/24 09:00 11/21/24 08:34 Atorvastatin 20 Mg Tablet PO 11/21/25 08:59 20 mg DAILY BERNIE Administration Clopidogrel Bisulfate 75 mg 11/21/24 09:00 11/21/24 08:35 Clopidogrel Bisulfate 75 Mg Tablet PO 11/21/25 08:59 75 mg DAILY BERNIE Administration Ezetimibe 10 mg 11/21/24 09:00 11/21/24 08:34 Ezetimibe 10 Mg Tablet PO 11/21/25 08:59 10 mg DAILY BERNIE Administration Furosemide 80 mg 11/20/24 20:15 11/21/24 08:35 Furosemide 100 Mg/10 Ml Vial IV-PUSH 11/20/25 20:14 80 mg BID@0800,1600 BERNIE Administration Ferric Sodium Gluconate 270 mls @ 135 mls/hr 11/21/24 10:00 Complex 250 mg/ Sodium IV 11/24/24 10:59 Chloride QAM [facility] Midazolam HCl 1 mg 11/21/24 09:26 Midazolam/Pf 2 Mg/2 Ml Vial IM ONCE PRN Anxiety Nitroglycerin 0.4 mg 11/20/24 14:16 Nitroglycerin 0.4 Mg Tab.Subl SUBLINGUAL 11/20/25 14:15 Q5M PRN Chest Pain Nortriptyline HCl 50 mg 11/20/24 22:00 11/21/24 04:52 Nortriptyline 25 Mg Capsule PO 11/20/25 21:59 Not Given QHS [facility] Psyllium Hydrophilic Mucilloid 1 packet 11/21/24 09:00 11/21/24 08:33 Psyllium Husk 3.4 Gm Packet PO 11/21/25 08:59 1 packet DAILY BERNIE Administration Sodium Chloride 0 ml 11/20/24 14:16 11/21/24 08:35 Sodium Chloride 0.9 % 10 Ml Syringe IV-PUSH 11/20/25 14:15 10 ml PRN PRN Administration Flush Vitamin D 50 mcg 11/21/24 09:00 11/21/24 08:34 Cholecalciferol 25 Mcg (1,000 Units) Tablet PO 11/21/25 08:59 50 mcg DAILY BERNIE Administration A&P - Hospitalist Assessment/Plan (1) Acute systolic (congestive) heart failure: (2) Acute kidney injury: (3) Chronic respiratory failure with hypoxia: (4) CHRIS (obstructive sleep apnea): (5) Severe obstructive sleep apnea: (6) Hyperlipidemia: (7) Iron deficiency anemia: (8) Severe protein-calorie malnutrition: (9) Acute kidney injury superimposed on CKD: Plan Lab values are reviewed: BUN improved a little bit from 61 down to 58. Serum creatinine improved a little bit from 3.04 down to 2.94. Iron is extremely low at 14. Prealbumin is extremely low at 9.1. Plan: Appreciate cardiology input. Appreciate nephrology input. Consult to dietitian regarding severe protein calorie malnutrition. Will start IV iron repletion. He will get 4 doses of Ferrlecit 250 mg IV every morning. Given severe confusion at nighttime we will get an MRI of the brain. I anticipate this patient will need an AICD/biventricular pacemaker at some point in the future so it is better to get the MRI of the brain now before that deviceis put in. Continue efforts to get him to wear the BiPAP at nighttime. I suspect that the nortriptyline is too sedating for him at nighttime so I will reduce this dose, with a goal to get this off in a patient who is 73 years old. Documented By: Turner Knott DO 1029 Signed By: <Electronically signed by Turner Knott DO> 11/21/24 1045 [facility] Work Phone: 1(136) 884-285102-06-2025 [place] [address] Cardiology Progress Note Signed Patient: Char Alatorre MR#: [id number] : 1950 Acct:[id number] Age/Sex: 73 / M Adm Date: 5 Loc: Room: [address] [place] [address] Type: ADM IN Attending Dr: Turner Knott DO Copies to: ~ Date of Service: 11/21/2024 Subjective Principal diagnosis: Heart failure with reduced ejection fraction Interval history: Patient is awake and alert sitting up in the chair upon walking the room. Sleepyon recliner during my visit. No acute events overnight. He states that he feels fuzzy but overall feels physically better thanhe did on admission. States he has no chest pain or difficulty breathing. I/O net neg -1100 ml over the last 24 hrs. Exam Physical Exam Vital Signs: Temp Pulse Resp BP Pulse Ox O2 Del Method O2 Flow Rate 97.4 F L 85 20 121/66 97 Nasal Cannula 2 11/21/24 07:30 11/21/24 07:30 11/21/24 07:30 11/21/24 07:30 11/21/24 07:30 11/21/24 07:30 11/21/24 07:30 FiO2 30 11/21/24 04:00 Narrative: General: Awake, A&O x 3, pleasant, cooperative, well nourished HENT: NC, AT. Nasal cannula in place on 2 L Eyes: No scleral icterus Neck: Supple, trachea midline Cardio: RRR, no murmurs, rubs or gallops Respiratory: CTAB, no wheezes rhonchi or rales. No evidence of respiratory distress GI: Soft, nontender, nondistended : Benavidez catheter in place with approximately 400 cc of yellow urine in the Benavidez bag Neuro: CN II-XII grossly intact, no focal neurologic deficit Extremities: 2-3+ pitting edema to the bilateral lower extremities with no erythema or warmth Psych: Affect, speech and movements normal. Mood congruent Objective Labs 11/21/24 05:00 11/21/24 05:00 Labs: Laboratory Results - last 24 hr 11/20/24 11/21/24 15:27 05:00 Corrected WBC 6.6 5.1 Uncorrected WBC Count 6.6 5.1 RBC 4.36 4.05 Hgb 10.0 L 9.1 L Hct 31.4 L 29.0 L MCV 72.1 L 71.4 L MCH 23.0 L 22.4 L MCHC 31.9 L 31.3 L RDW 18.5 H 18.8 H Plt Count 217 160 D MPV 7.0 6.8 Neut % (Auto) 72.1 73.6 Lymph % (Auto) 14.2 11.8 Gates % (Auto) 12.7 13.3 Eos % (Auto) 0.3 0.8 Baso % (Auto) 0.7 0.5 Nucleat RBC Rel Count 0.3 0.1 Neut # (Auto) 4.8 3.7 Lymph # (Auto) 0.9 L 0.6 L Gates # (Auto) 0.8 0.7 Eos # (Auto) 0.0 0.0 Baso # (Auto) 0.0 0.0 Absolute Retic 0.104 H Percent Retic 2.6 H PT 30.9 H INR 2.8 APTT 41.0 H PHA Creatinine Clear N/A 24.93 Sodium 131 L 135 L Potassium 4.4 3.6 Chloride 101 101 Carbon Dioxide 22.7 26.7 Anion Gap 11.7 10.9 BUN 61 H 58 H Creatinine 3.04 H 2.94 H Est GFR (CKD-EPI) 21.060 21.923 Glucose 108 H 100 Calcium 9.5 9.2 Magnesium 2.4 Iron 14 L TIBC 307 Iron Saturation 4.6 L Transferrin 219 Ferritin 50.9 Total Bilirubin 1.5 H Direct Bilirubin 0.70 H Indirect Bilirubin 0.8 AST 42 H ALT 76 H Alkaline Phosphatase 159 H B-Natriuretic Peptide 5962.0 H 4694.0 H Total Protein 6.3 L Albumin 3.0 L Globulin 3.3 Albumin/Globulin Ratio 0.9 Prealbumin 9.1 L Vitamin B12 734 Folate 8.2 A&P - Cardiology (1) Acute systolic (congestive) heart failure: Code(s): I50.21 - Acute systolic (congestive) heart failure (2) Acute kidney injury superimposed on CKD: Code(s): N17.9 - Acute kidney failure, unspecified; N18.9 - Chronic kidney disease, unspecified (3) Chronic respiratory failure with hypoxia: Code(s): J96.11 - Chronic respiratory failure with hypoxia (4) CHRIS (obstructive sleep apnea): Code(s): G47.33 - Obstructive sleep apnea (adult) (pediatric) (5) Pulmonary hypertension: Code(s): I27.20 - Pulmonary hypertension, unspecified Plan Acute decompensated HF. NYHA IV symptoms VIKY on CKD 3- Cardiorenal syndrome Transaminitis Ischemic cardiomyopathy. EF 20-25% on 11/11/24 from [facility] CAD s/p to PCI to RCA 05/2024 Sarcopenia HLD HTN Pulmonary HTN- Likely Precapillary from untreated CHRIS COPD PAD s/p aortobifem bypass, R renal artery stenosis and occluded PABLO. On Eliquis. Severe untreated CHRIS Limited echo 11/11/2024 at [facility]: Severely reduced EF 20-25% with diffuse global hypokinesis, borderline RV systolic function, moderate severe biatrial dilatation, heavily calcified aortic valve with reduced mobility. RHC 05/17/2024: RA 5, PA 35/17 (25) PCWP 4, cardiac output 3.7/cardiac index 1.7 TPG 21 mmHg, DPG 13 mmHg, PVR 5.6 Wood units. Consistent with precapillary pulmonary hypertension. C 05/22/2024: Left main: Patent, LAD: 40%, left circumflex minor irregularities,OM 280% proximal, OM 360% stenosis, RCA 80% proximal stenosis and 40% mid. Conclusion: Three-vessel coronary disease involving LAD, OM 2 and ostium branch of the RCA (80%) [facility] 05/29/2024: PCI to RCA with 4.0 x 15 mm Xience MINDY. Plans to continue Plavixand Eliquis for at least 1 year (May 2025) Echo 11/11/2024 at [facility]: Ejection fraction 20-25% which is changed from previous exam on 05/13/2024 with EF of 35-40%, mild eccentric left ventricular hypertrophy, diffuse global hypokinesis, severe dilatation of the left atrium, moderate dilatation of the right atrium, mildly thickened mitral valve with normal mobility, moderate to severely calcified aortic valve with reduced mobility, trivial pericardial effusion, normal right ventricular size with borderline systolic function. EKG 11/20/2024: Normal sinus rhythm with first-degree AV block ST-T changes suggestive of inferolateral ischemia Recommendations: - Still hypervolemic by clinical congestion, weight gain, elevated BNP and transaminitis suggestiveof congestive hepatopathy. Diuresis goal is 1.5 L/day. Yesterday he was net -1100 cc. Continue diuresis with Lasix IV. Add metolazone x1 dose today. - Monitor renal function and strict I/Os. Keep K>4; Mg>2 - Continue Eliquis 5 mg BID for hx of PAD, Lipitor 20 mg daily, carvedilol 3.125mg twice daily and Plavix 75 mg daily. Unable to start MRA/ARNI or SGLT2i due torenal dysfunction - Will consider nuclear stress test for ischemic evaluation once euvolemic. - Appreciate nephrology recommendations. - Will follow. Attending note: I saw the patient personally on the day of encounter. I reviewed the relevant history, and performed the medina elements of the physical examination. I reviewedthe relevant laboratory workup, radiological studies and the current treatment plan. I formulated the plan of care and confirmed it with the re sident/student/HALL MANAGER. Documented By: Chase Larkin MD 04/09 0852 Signed By: 11/21/[address] [place], [place] 8108702-06-2025 [place] [address] Nephrology Consult Note Signed Patient: Char Alatorre MR#: [id number] : 1950 Acct:[id number] Age/Sex: 73 / M Adm Date: 5 Loc: Room: [address] [place] [address] Type: ADM IN Attending Dr: Turner Knott DO Copies to: MD Turner Tracy DO Rugen M Alda, MD~ Providers Consult Date: 11/21/24 Requesting Provider: Turner Knott DO Primary Care Provider: Justin Martinez MD [facility] Reason for Consult: VIKY on CKD management History of Present Illness: This is a 73-year-old male with medical history of CKD, HFrEF, CAD s/p PCI, PAD s/p aortic bifemoral bypass, DM, HTN, HLD, pulmonary hypertension and CHRIS for increased shortness of breath and leg swelling. Patient was recently admitted at [facility] after a mechanical fall. He was found to have VIKY and his dose of diuretics were held and was given fluid resuscitation. He had echocardiogram during hospitalization which showed a worsening cardiac function with EF 20 to 25%. Patient was admitted at [facility] earlier this month for shortness of breath due to the CHFexacerbation. He was diuresis with IV Lasix but upon discharge due to his worsening renal function hewas advised to hold Lasix and take it only if he gains weight. Patient has a known history of CKD with baseline serum creatinine 2 to 2.1 mg/dL and follows in our office for his CKD care. Patient on admission was found to have worsening renal function with elevated serum creatinine 3.0 mg/dL above his baseline. Nephrology is consulted for VIKY with CKD management. He had a bladder scanwhich showed 260 mL postvoid residual urinary volume. Benavidez catheter was placement after my recommendation. Patient was also having a difficulty to have IV access and PICC line was placed after my approval. Patient also seen by the cardiology and was started on IV Lasix. Patient was seen and examined bedside feeling little better than yesterday. 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 Atrophic kidney Alcohol abuse Abdominal aortic aneurysm Surgical History History of peripheral artery bypass History of PTCA Hx of cardiac catheterization x 3 Hx of resection of small bowel Hx of cholecystectomy Hx of cataract removal with insertion of prosthetic lens Hx of colonoscopy (~2018) History of abdominal aortic aneurysm repair History of back surgery History of right-sided carotid endarterectomy H/O hemorrhoidectomy Family History Brother Cancer Legacy FamHx Relation: Brother(s); Legacy FamHx Problem: Diagnosed with Cancer Bicuspid cardiac valve Father Cancer Legacy FamHx Problem: Diagnosed with Cancer Hypertension Mother Family history of pancreatic cancer Cancer Legacy FamHx Problem: Diagnosed with Cancer Sister Cancer Legacy FamHx Problem: Diagnosed with Cancer Lung cancer Social History Smoking Status: Former smoker Tobacco Type: cigarettes Substance Use Type: None Substance Abuse Comment: One beer a week Meds Medications & Allergies Allergies No Known Allergies Allergy (Verified 11/20/24 10:02) Home Medications apixaban 5 mg tablet (Eliquis) 5 mg PO BID 01/25/24 [History Confirmed 11/20/24] cholecalciferol (vitamin D3) 50 mcg (2,000 unit) capsule 2,000 unit PO DAILY 02/22/24 [History Confirmed 11/20/24] clopidogrel 75 mg tablet (Plavix) 75 mg PO DAILY 06/06/24 [History Confirmed 11/20/24] methylcellulose (with sugar) 2 gram/19 gram oral powder 1 tbsp PO DAILY 06/06/24[History Confirmed 11/20/24] carvedilol 3.125 mg tablet 3.125 mg PO BID 09/16/24 [History Confirmed 11/20/24] ferrous sulfate 325 mg (65 mg iron) tablet 325 mg PO Q48HR #45 tabs 09/16/24 [Rx Confirmed 11/20/24] nortriptyline 25 mg capsule 50 mg PO QHS 09/16/24 [History Confirmed 11/20/24] cyanocobalamin (vitamin B-12) 1,000 mcg/mL injection solution 1,000 mcg IM .monthly 10/19/24 [History Confirmed 11/20/24] psyllium husk (aspartame) 3.4 gram oral powder packet (Metamucil Fiber Singles) 1 packet PO DAILY 30 days #30 ea 10/20/24 [Rx Confirmed 11/20/24] atorvastatin 20 mg tablet 20 mg PO DAILY 11/20/24 [History Confirmed 11/20/24] ezetimibe 10 mg tablet (Zetia) 10 mg PO DAILY 11/20/24 [History Confirmed 11/20/24] furosemide 20 mg tablet 20 mg PO DAILY 11/20/24 [History Confirmed 11/20/24] Active Medications: Active Medications Acetaminophen (Acetaminophen 325 Mg Tablet) 650 mg PO Q4H PRN PRN Reason: Pain Scale 1 - 3 or fever Stop: 11/20/25 14:15 Apixaban (Apixaban 5 Mg Tablet) 5 mg PO BID [facility] Stop: 11/20/25 20:59 Last Admin: 11/21/24 04:52 Dose: Not Given Atorvastatin Calcium (Atorvastatin 20 Mg Tablet) 20 mg PO DAILY BERNIE Stop: 11/21/25 08:59 Clopidogrel Bisulfate (Clopidogrel Bisulfate 75 Mg Tablet) 75 mg PO DAILY BERNIE Stop: 11/21/25 08:59 Ezetimibe (Ezetimibe 10 Mg Tablet) 10 mg PO DAILY BERNIE Stop: 11/21/25 08:59 Furosemide (Furosemide 100 Mg/10 Ml Vial) 80 mg IV-PUSH BID@0800,1600 [facility] Stop: 11/20/25 20:14 Last Admin: 11/20/24 21:12 Dose: 80 mg Nitroglycerin (Nitroglycerin 0.4 Mg Tab.Subl) 0.4 mg SUBLINGUAL Q5M PRN PRN Reason: Chest Pain Stop: 11/20/25 14:15 Nortriptyline HCl (Nortriptyline 25 Mg Capsule) 50 mg PO QHS BERNIE Stop: 11/20/25 21:59 Last Admin: 11/21/24 04:52 Dose: Not Given Psyllium Hydrophilic Mucilloid (Psyllium Husk 3.4 Gm Packet) 1 packet PO DAILY [facility] Stop: 11/21/25 08:59 Sodium Chloride (Sodium Chloride 0.9 % 10 Ml Syringe) 0 ml IV-PUSH PRN PRN PRN Reason: Flush Stop: 11/20/25 14:15 Last Admin: 11/20/24 21:14 Dose: 10 ml Vitamin D (Cholecalciferol 25 Mcg (1,000 Units) Tablet) 50 mcg PO DAILY [facility] Stop: 11/21/25 08:59 Exam Physical Exam Vital Signs: Temp Pulse Resp BP Pulse Ox O2 Del Method O2 Flow Rate 97.6 F 85 20 121/66 97 Nasal Cannula 2 11/20/24 20:00 11/21/24 07:30 11/21/24 07:30 11/21/24 07:30 11/21/24 07:30 11/21/24 07:30 11/21/24 07:30 FiO2 30 11/21/24 04:00 Narrative: With found to have a elevated BNP general: Appears comfortable and not in distress Heart: S1-S2, no rub Lung: Bilateral air entry, no wheezing or crackles Abdomen: Soft, positive bowel sounds Extremities: 1+ edema, no cyanosis Head: Atraumatic, normocephalic Ear: No gross hearing Deficit or external ear redness Eyes: No pallor or redness Neck: + JVD or visible mass Skin: No rashes , warm to touch 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: Awake,Alert, following simple command Musculoskeletal: No swelling or limitation of movement of the large joints Psychiatric: Cooperative, normal mood and affect Results - Nephrology Labs 11/21/24 05:00 11/21/24 05:00 Labs: 11/20/24 11/21/24 15:27 05:00 BUN 61 H 58 H Creatinine 3.04 H 2.94 H Iron Saturation 4.6 L Ferritin 50.9 Albumin 3.0 L Radiology Impressions Impressions - last 24 hours: Any impression(s) listed above is documentation that was entered by the reading physician into a diagnostic report(s) for Char Alatorre. I have reviewed the report(s) and am incorporating any findings in the treatment plan of this patient where applicable. A&P - Nephrology Assessment/Plan (1) Acute kidney injury superimposed on CKD: Assessment/Problem Details: He has an VIKY on CKD likely due to the cardiorenal syndrome. 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 His renal function has been declining due to the progression of the CKD. His baseline serum creatinine is around 2 to 2.1 mg/dL. He has atrophic right kidney. 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 He appears to be hypovolemic. (4) Iron deficiency anemia: Assessment/Problem Details: Patient has anemia due to examination of the CKD and iron deficiency. (5) Acute systolic (congestive) heart failure: Assessment/Problem Details: Patient was admitted for shortness of breath and increased leg swelling. He haselevated BNP and hismost recent echocardiogram showed EF 20 to 25%. Plan * No need for emergent hemodialysis now. Will continue to assess its needs on regular basis. * Continue IV Lasix. * Will give ferric gluconate 250 mg IV daily x 4 doses. * Will follow the result of PRAANY and ANCA. 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 Will also check the UA and UPCR. * Continue Benavidez care for urinary retention and Benavidez strict I's and O's. * Check renal function daily and monitor input output * Continue workup for cardiomyopathy as per cardiology. * Thanks for consult. Will continue follow with you. Please please feel free to call us with any question. Documented By: Magy Cummings MD 11/21/2427 Signed By: 11/21/24 1105 [facility]02-06-2025 [place] [address] Hospitalist Progress Note Signed Patient: Char Alatorre MR#: [id number] : 1950 Acct:[id number] Age/Sex: 73 / M Adm Date: 5 Loc: Room: [address] [place] [address] Type: ADM IN Attending Dr: Turner Knott DO Copies to: ~ Date of Service: 11/21/2024 Subjective Subjective Narrative: This morning the patient is up and into chair. He is very sleepy. It takes a few minutes for him towake up when I come into the my examination. On reading the notes it looks like he was able to wear BiPAP a little bit last night after first trying to refuse it. Nursing notes that last night did describe that they found the patient to be extremely confused andjust very disoriented and having hard time with all cognition. This morning he denies sensation of shortness of breath. He denies sensation ofchest pain. He then falls asleep after I leave the room and finished working with him. Exam Physical Exam Vital Signs: Temp Pulse Resp BP Pulse Ox O2 Del Method O2 Flow Rate 97.4 F L 85 20 121/66 97 Nasal Cannula 2 11/21/24 07:30 11/21/24 07:30 11/21/24 07:30 11/21/24 07:30 11/21/24 07:30 11/21/24 07:30 11/21/24 07:30 FiO2 30 11/21/24 04:00 Narrative: General: Out of bed in a chair. Falling asleep sitting up in a chair. Pulmonary: Clear to auscultation bilaterally without any wheezing. Moderately diminished in the bases. 1 her percent oxygenation on 2 L nasal cannula. I puthim on room air. So far he is oxygenating at 97% on room air. GI: Abdomen soft, normal bowel sounds to auscultation, mild amount of edema throughout the abdomen but no severe ascites. Cardiac: Normal sinus rhythm on the monitor. No rubs gallops to auscultation. Lower extremities: Moderate amount of improvement in lower extremity edema todaycompared to yesterday before he got Lasix. : Benavidez catheter is draining a good volume of urine without any purulence, cloudiness, or blood. Objective Lab Results 11/21/24 05:00 11/21/24 05:00 Meds Allergies and Active Meds Allergies No Known Allergies Allergy (Verified 11/20/24 10:02) Active Meds: Active Medications Generic Name Dose Route Start Last Admin Trade Name Hemantq PRN Reason Stop Dose Admin Acetaminophen 650 mg 11/20/24 14:16 11/21/24 08:33 Acetaminophen 325 Mg Tablet PO 11/20/25 14:15 650 mg Q4H PRN Administration Pain Scale 1 - 3 or fever Apixaban 5 mg 11/20/24 21:00 11/21/24 08:34 Apixaban 5 Mg Tablet PO 11/20/25 20:59 5 mg BID BERNIE Administration Atorvastatin Calcium 20 mg 11/21/24 09:00 11/21/24 08:34 Atorvastatin 20 Mg Tablet PO 11/21/25 08:59 20 mg DAILY BERNIE Administration Clopidogrel Bisulfate 75 mg 11/21/24 09:00 11/21/24 08:35 Clopidogrel Bisulfate 75 Mg Tablet PO 11/21/25 08:59 75 mg DAILY BERNIE Administration Ezetimibe 10 mg 11/21/24 09:00 11/21/24 08:34 Ezetimibe 10 Mg Tablet PO 11/21/25 08:59 10 mg DAILY BERNIE Administration Furosemide 80 mg 11/20/24 20:15 11/21/24 08:35 Furosemide 100 Mg/10 Ml Vial IV-PUSH 11/20/25 20:14 80 mg BID@0800,1600 BERNIE Administration Ferric Sodium Gluconate 270 mls @ 135 mls/hr 11/21/24 10:00 Complex 250 mg/ Sodium IV 11/24/24 10:59 Chloride QAM BERNIE Midazolam HCl 1 mg 11/21/24 09:26 Midazolam/Pf 2 Mg/2 Ml Vial IM ONCE PRN Anxiety Nitroglycerin 0.4 mg 11/20/24 14:16 Nitroglycerin 0.4 Mg Tab.Subl SUBLINGUAL 11/20/25 14:15 Q5M PRN Chest Pain Nortriptyline HCl 50 mg 11/20/24 22:00 11/21/24 04:52 Nortriptyline 25 Mg Capsule PO 11/20/25 21:59 Not Given QHS BERNIE Psyllium Hydrophilic Mucilloid 1 packet 11/21/24 09:00 11/21/24 08:33 Psyllium Husk 3.4 Gm Packet PO 11/21/25 08:59 1 packet DAILY BERNIE Administration Sodium Chloride 0 ml 11/20/24 14:16 11/21/24 08:35 Sodium Chloride 0.9 % 10 Ml Syringe IV-PUSH 11/20/25 14:15 10 ml PRN PRN Administration Flush Vitamin D 50 mcg 11/21/24 09:00 11/21/24 08:34 Cholecalciferol 25 Mcg (1,000 Units) Tablet PO 11/21/25 08:59 50 mcg DAILY BERNIE Administration A&P - Hospitalist Assessment/Plan (1) Acute systolic (congestive) heart failure: (2) Acute kidney injury: (3) Chronic respiratory failure with hypoxia: (4) CHRIS (obstructive sleep apnea): (5) Severe obstructive sleep apnea: (6) Hyperlipidemia: (7) Iron deficiency anemia: (8) Severe protein-calorie malnutrition: (9) Acute kidney injury superimposed on CKD: Plan Lab values are reviewed: BUN improved a little bit from 61 down to 58. Serum creatinine improved a little bit from 3.04 downto 2.94. Iron is extremely low at 14. Prealbumin is extremely low at 9.1. Plan: Appreciate cardiology input. Appreciate nephrology input. Consult to dietitian regarding severe protein calorie malnutrition. Will start IV iron repletion. He will get 4 doses of Ferrlecit 250 mg IV every morning. Given severe confusion at nighttime we will get an MRI of the brain. I anticipate this patient willneed an AICD/biventricular pacemaker at some point in the future so it is better to get the MRI of the brain now before that deviceis put in. Continue efforts to get him to wear the BiPAP at nighttime. I suspect that the nortriptyline is too sedating for him at nighttime so I will reduce this dose, with a goal to get this off in a patient who is 73 years old. Documented By: Turner Knott DO 1029 Signed By: 11/21/24 1045 [facility]02-05-2025 Consult note Author Odalys Spaulding [facility] Note Date/Time November 20, 2024 7 :59pm [facility] [address] [place] [address] Cardiology Consult Note Signed Patient: Char Alatorre MR#: [id number] : 1950 Acct:[id number] Age/Sex: 73 / M Adm Date: 5 Loc: Room: [address] [place] [address] Type: ADM IN Attending Dr: Turner Knott DO Copies to: DO Odalys Dennison MD Rugen M Alda, MD~ Cardiology HPI History of Present Illness Consult Date: 11/20/24 Reason for Consult: CHF HPI: Mr. Alatorre is a 73 year old male who earlier today established care with [facility] cardiology. He has a PMH significant for HFrEF/recent drop in EF 20-25%, CAD s/pPCI to RCA in 2023, PAD s/p aortobifem bypass, DM II, HTN, HLD,pulmonary HTN, CKD III, severe untreated CHRIS. He presented with his who is a nurse and hisdaughter who helped provide some of the history. He is currently at a correction, having been placed there last week after an admission at [facility] following a fall. At that admission, he was noted to have elevated creatinine. Diuretics were held and he received IV fluids. ECHO during the hospitalization showed a drop in EF to 20- 25% but this was not addressed. He had a prior admission n October at [facility] for decompenstaed HF and hypoxia and there was concern for overdiuresis so he received IV fluids prior to discharged. Today he reports that since his discharge last week, he has gained 10lbs with accompanying dyspnea at rest, BLE edema, fatigue, orthopnea and PND. He denies any chest pain. He has doubled his lasix without much increase in urine output. Reviewed previous cardiac work up at [facility] and [place]: Echo 12/19/2023: EF 55-60% with grade 1 diastolic dysfunction Echo 05/13/2024: LVEF 35-40% with diffuse hypokinesis and grade 2 diastolic dysfunction. RVSP 35 mmHg Echo 06/12/2024: LVEF 45-50% with mild global hypokinesis, average global longitudinal strain is -13%. Normal RV size and function. RVSP 48 mmHg. Mild to moderate aortic regurgitation, mild aortic stenosis Limited echo 11/11/2024 at [facility]: Severely reduced EF 20-25% with diffuse global hypokinesis, borderline RV systolic function, moderate severe biatrial dilatation, heavily calcified aortic valve with reduced mobility. [facility] 05/17/2024: RA 5, PA 35/17 (25) PCWP 4, cardiac output 3.7/cardiac index 1.7 TPG 21 mmHg, DPG 13 mmHg, PVR 5.6 Wood units. Consistent with precapillary pulmonary hypertension. [facility] 05/22/2024: Left main: Patent, LAD: 40%, left circumflex minor irregularities,OM 280% proximal, OM 360% stenosis, RCA 80% proximal stenosis and 40% mid. Conclusion: Three-vessel coronary disease involving LAD, OM 2 and ostium branch of the RCA (80%) [facility] 05/29/2024: PCI to RCA with 4.0 x 15 mm Xience MINDY. 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 Atrophic kidney Alcohol abuse Abdominal aortic aneurysm Surgical History History of peripheral artery bypass History of PTCA Hx of cardiac catheterization x 3 Hx of resection of small bowel Hx of cholecystectomy Hx of cataract removal with insertion of prosthetic lens Hx of colonoscopy (~2018) History of abdominal aortic aneurysm repair History of back surgery History of right-sided carotid endarterectomy H/O hemorrhoidectomy Family History Brother Cancer Legacy FamHx Relation: Brother(s); Legacy FamHx Problem: Diagnosed with Cancer Bicuspid cardiac valve Father Cancer Legacy FamHx Problem: Diagnosed with Cancer Hypertension Mother Family history of pancreatic cancer Cancer Legacy FamHx Problem: Diagnosed with Cancer Sister Cancer Legacy FamHx Problem: Diagnosed with Cancer Lung cancer Social History Smoking Status: Former smoker Tobacco Type: cigarettes Substance Use Type: None Substance Abuse Comment: One beer a week Meds Medications and Allergies Allergies No Known Allergies Allergy (Verified 11/20/24 10:02) Home Medications apixaban 5 mg tablet (Eliquis) 5 mg PO BID 01/25/24 [History Confirmed 11/20/24] cholecalciferol (vitamin D3) 50 mcg (2,000 unit) capsule 2,000 unit PO DAILY 02/22/24 [History Confirmed 11/20/24] clopidogrel 75 mg tablet (Plavix) 75 mg PO DAILY 06/06/24 [History Confirmed 11/20/24] methylcellulose (with sugar) 2 gram/19 gram oral powder 1 tbsp PO DAILY 06/06/24[History Confirmed 11/20/24] carvedilol 3.125 mg tablet 3.125 mg PO BID 09/16/24 [History Confirmed 11/20/24] ferrous sulfate 325 mg (65 mg iron) tablet 325 mg PO Q48HR #45 tabs 09/16/24 [Rx Confirmed 11/20/24] nortriptyline 25 mg capsule 50 mg PO QHS 09/16/24 [History Confirmed 11/20/24] cyanocobalamin (vitamin B-12) 1,000 mcg/mL injection solution 1,000 mcg IM .monthly 10/19/24 [History Confirmed 11/20/24] psyllium husk (aspartame) 3.4 gram oral powder packet (Metamucil Fiber Singles) 1 packet PO DAILY 30 days #30 ea 10/20/24 [Rx Confirmed 11/20/24] atorvastatin 20 mg tablet 20 mg PO DAILY 11/20/24 [History Confirmed 11/20/24] ezetimibe 10 mg tablet (Zetia) 10 mg PO DAILY 11/20/24 [History Confirmed 11/20/24] furosemide 20 mg tablet 20 mg PO DAILY 11/20/24 [History Confirmed 11/20/24] Exam Physical Exam Vital Signs: Temp Pulse Resp BP Pulse Ox O2 Del Method O2 Flow Rate 96.1 F L 84 20 111/55 L 100 Nasal Cannula 2 11/20/24 13:35 11/20/24 13:35 11/20/24 13:35 11/20/24 13:35 11/20/24 13:35 11/20/24 16:00 11/20/24 16:00 Narrative: GEN: AAOx3. Chronically ill-appearing, sitting in wheelchair Neck: Elevated JVD. Lungs: Diminished at the bases bilaterally Heart: Regular rate and rhythm. Normal S1 and S2. No murmurs or rubs appreciated. Abdomen: Soft, nontender, nondistended, bowel sounds present. Extremities: 3+ BLE edema. Neuro: AAOx3. No focal deficits. Results - Cardiology Labs 11/20/24 15:27 11/20/24 15:27 Lab results: Cardiac Enzymes 11/20/24 Range/Units 15:27 AST 42 H (13-39) U/L B-Natriuretic Peptide 5962.0 H (5-100) pg/mL CBC 11/20/24 Range/Units 15:27 RBC 4.36 (3.90-5.60) x10E6/uL Hgb 10.0 L (13.0-17.0) g/dL Hct 31.4 L (38.8-50.0) % Plt Count 217 (150-450) x10E3/uL Neut # (Auto) 4.8 (1.8-7.7) x10E3/uL Lymph # (Auto) 0.9 L (1.00-4.8) x10E3/uL Gates # (Auto) 0.8 (0.0-0.8) x10E3/uL Eos # (Auto) 0.0 (0.0-0.45) x10E3/uL Baso # (Auto) 0.0 (0.0-0.2) x10E3/uL Comprehensive Metabolic Panel 11/20/24 Range/Units 15:27 Sodium 131 L (136-145) mmol/L Potassium 4.4 (3.5-5.1) mmol/L Chloride 101 (98-107) mmol/L Carbon Dioxide 22.7 (21.0-31.0) mmol/L BUN 61 H (7-25) mg/dL Creatinine 3.04 H (0.70-1.30) mg/dL Glucose 108 H (70-100) mg/dL Calcium 9.5 (8.6-10.3) mg/dL Direct Bilirubin 0.70 H (0.03-0.18) mg/dL Indirect Bilirubin 0.8 mg/dL AST 42 H (13-39) U/L ALT 76 H (7-52) U/L Alkaline Phosphatase 159 H (34-104) U/L Total Protein 6.3 L (6.4-8.9) gm/dL Albumin 3.0 L (3.5-5.7) gm/dL Intake and Output 11/20/24 11/20/24 11/20/24 07:59 15:59 23:59 Intake Total 25 / 100 75 / 100 Output Total 0 / 0 Balance 25 / 100 75 / 100 Intake: Oral 25 / 100 75 / 100 Output: Urine 0 / 0 Other: # Unmeasured Voids 1 # Bowel Movements 0 Weight 84.6 kg Patient Weight 11/20/24 23:59 Weight 84.6 kg Lab 11/20/24 15:27 PT 30.9 H INR 2.8 APTT 41.0 H A&P - Cardiology (1) Acute kidney injury: Code(s): N17.9 - Acute kidney failure, unspecified (2) Acute systolic (congestive) heart failure: Code(s): I50.21 - Acute systolic (congestive) heart failure (3) Chronic respiratory failure with hypoxia: Code(s): J96.11 - Chronic respiratory failure with hypoxia (4) CHRIS (obstructive sleep apnea): Code(s): G47.33 - Obstructive sleep apnea (adult) (pediatric) (5) Systolic CHF: Code(s): I50.20 - Unspecified systolic (congestive) heart failure (6) Pulmonary hypertension: Code(s): I27.20 - Pulmonary hypertension, unspecified (7) Hyperlipidemia: Code(s): E78.5 - Hyperlipidemia, unspecified (8) Nephrolithiasis: Code(s): N20.0 - Calculus of kidney Plan Assessment: Acute decompensated HF. NYHA IV symptoms VIKY on CKD 3- Cardiorenal syndrome Transaminitis Ischemic cardiomyopathy. EF 20-25% on 11/11/24 from [facility] CAD s/p to PCI to RCA 05/2024 Sarcopenia HLD HTN Pulmonary HTN- Likely Precapillary from untreated CHRIS COPD PAD s/p aortobifem bypass, R renal artery stenosis and occluded PABLO. On Eliquis. Severe untreated CHRIS Limited echo 11/11/2024 at [facility]: Severely reduced EF 20-25% with diffuse global hypokinesis, borderline RV systolic function, moderate severe biatrial dilatation, heavily calcified aortic valve with reduced mobility. [facility] 05/17/2024: RA 5, PA 35/17 (25) PCWP 4, cardiac output 3.7/cardiac index 1.7 TPG 21 mmHg, DPG 13 mmHg, PVR 5.6 Wood units. Consistent with precapillary pulmonary hypertension. [facility] 05/22/2024: Left main: Patent, LAD: 40%, left circumflex minor irregularities,OM 280% proximal, OM 360% stenosis, RCA 80% proximal stenosis and 40% mid. Conclusion: Three-vessel coronary disease involving LAD, OM 2 and ostium branch of the RCA (80%) [facility] 05/29/2024: PCI to RCA with 4.0 x 15 mm Xience MINDY. Plans to continue Plavixand Eliquis for at least 1 year (May 2025) EKG 11/20/2024: Normal sinus rhythm with first-degree AV block ST-T changes suggestive of inferolateral ischemia Recommendations: - Pt is hypervolemic as evidenced by clinical congestion, weight gain, elevated BNP and transaminitis suggestive of congestive hepatopathy. Will start IV diuresis for goal uop net negative 1-2L in 24h - Monitor renal function and strict I/Os. Keep K>4; Mg>2 - Continue Eliquis 5 mg BID for hx of PAD, Lipitor 20 mg daily, carvedilol 3.125mg twice daily and Plavix 75 mg daily. Unable to start MRA/ARNI or SGLT2i due torenal dysfunction - Will consider nuclear stress test for ischemic evaluation once euvolemic. Nephrology consulted. - Will follow. Documented By: Odalys Spaulding MD 11/20/241912 Signed By: <Electronically signed by Odalys Spaulding MD> 11/20/241958 [facility] Work Phone: [phone]) 365-938602-05-2025 History and physical note Author Turner Knott [facility] Note Date/Time November 20, 2024 7 :22pm [facility] [address] [place] [address] Hospitalist H&P Signed Patient: Char Alatorre MR#: [id number] : 1950 Acct:[id number] Age/Sex: 73 / M Adm Date: 5 Loc: Room: [address] [place] [address] Type: ADM IN Attending Dr: Turner Knott DO Copies to: DO Justin Dennison MD~ HPI DATE OF EXAMINATION: 11/20/24 CHIEF COMPLAINT: CHF HISTORY OF PRESENT ILLNESS: A 73-year-old man who is direct admitted from the cardiology office of Dr. Gutierrez for congestive heart failure. He previously got his cardiology care out of [place] in [place]. Over the last 2 months his Lasix dose has been decreased to 20 mg daily. He had a presentation to hospital about a month ago with dyspnea despite increasing his Lasix up to 40mg daily. The meantime he has been admitted at the [facility] for 5 days after a fall. There he was found to have an acute kidney injury he was given IV fluids and his Lasix was stopped. In the cardiology office this morning he said that he has worsening shortness ofbreath, worsening leg edema, orthopnea, postural nocturnal dyspnea, and lightheadedness when moving around. His Lasix dose has been increased recently to 40 mg twice daily but that only happened yesterday. Of particular concern is that the patient had an echocardiogram done on 11/07/2024 when he was at the [facility] where his left ventricular ejection fraction has declined to 20 to 25%. There was moderate severe biatrialdilatation, and a heavily calcified thick aortic valve with reduced mobility. Per the cardiology note from this morning he has had the following workup. Previous cardiology workup in [place] and [facility]: Echo 12/19/2023: EF 55-60% with grade 1 diastolic dysfunction Echo 05/13/2024: LVEF 35-40% with diffuse hypokinesis and grade 2 diastolic dysfunction. RVSP 35 mmHg Echo 06/12/2024: LVEF 45-50% with mild global hypokinesis, average global longitudinal strain is -13%. Normal RV size and function. RVSP 48 mmHg. Mild to moderate aortic regurgitation, mild aortic stenosis Limited echo 11/11/2024: Severely reduced EF 20-25% with diffuse global hypokinesis, borderline RV systolic function, moderate severe biatrial dilatation, heavily calcified aortic valve with reduced mobility. RHC 05/17/2024: RA 5, PA 35/17 (25) PCWP 4, cardiac output 3.7/cardiac index 1.7 TPG 21 mmHg, DPG 13 mmHg, PVR 5.6 Wood units. Consistent with precapillary pulmonary hypertension. [facility] 05/22/2024: Left main: Patent, LAD: 40%, left circumflex minor irregularities,OM 280% proximal, OM 360% stenosis, RCA 80% proximal stenosis and 40% mid. Conclusion: Three-vessel coronary disease involving LAD, OM 2 and ostium branch of the RCA (80%) [facility] 05/29/2024: PCI to RCA with 4.0 x 15 mm Xience MINDY. Plans to continue Plavixand Eliquis for at least 1 year (May 2025) In the past he had a CT scan that shows an atrophic right kidney. In the past he has been in the hospital in [place] where he got some IV iodinated contrast for an evaluation of an ischemic leg. After being admitted from the cardiology office of Dr. Odalys Spaulding patient proved extremely difficult to place an IV or get a lab draw. Bedside nurses, the nursing tray line supervisor, and the CARE TAKER were all not able to get a peripheral IV placed. Therefore the vascular access company was contacted to place a PICC line. Thereafter his BUN is demonstrably higher than it has been in the past having gone from a baseline of about 20 up to 61 and his creatinine has risen from a baseline of about 2.0 up to 3.04 today. His sodium is a little bit low at 131. B-type natriuretic peptide is extremely high at 5962. Albumin is a little bit low at 3.0. Nephrology ordered a Benavidez catheter be placed. At this time the Benavidez catheter has drained about 300 mL of urine which is clear and yellow with no purulence and no evidence of blood. The patient is accompanied to the room by 2 daughters. They report that he has had a lot of fatigue. A lot of dyspnea on mild exertion, such as walking up to the mailbox. Over the last couple months he has been put on supplemental oxygen. He currently is at a group home facility after getting out of the [facility]. He has had a lot of weakness. He has had noticeable muscle wasting. His appetite has been poor. Review of Systems Review of Systems Review of systems: 10 systems are reviewed and are negative except as mentioned elsewhere in the documentation. 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 Atrophic kidney Alcohol abuse Abdominal aortic aneurysm Surgical History History of peripheral artery bypass History of PTCA Hx of cardiac catheterization x 3 Hx of resection of small bowel Hx of cholecystectomy Hx of cataract removal with insertion of prosthetic lens Hx of colonoscopy (~2018) History of abdominal aortic aneurysm repair History of back surgery History of right-sided carotid endarterectomy H/O hemorrhoidectomy Family History Brother Cancer Legacy FamHx Relation: Brother(s); Legacy FamHx Problem: Diagnosed with Cancer Bicuspid cardiac valve Father Cancer Legacy FamHx Problem: Diagnosed with Cancer Hypertension Mother Family history of pancreatic cancer Cancer Legacy FamHx Problem: Diagnosed with Cancer Sister Cancer Legacy FamHx Problem: Diagnosed with Cancer Lung cancer Social History Smoking Status: Former smoker Substance Use Type: None Substance Abuse Comment: One beer a week Meds Medications and Allergies Allergies No Known Allergies Allergy (Verified 11/20/24 10:02) Home Medications apixaban 5 mg tablet (Eliquis) 5 mg PO BID 01/25/24 [History Confirmed 11/20/24] cholecalciferol (vitamin D3) 50 mcg (2,000 unit) capsule 2,000 unit PO DAILY 02/22/24 [History Confirmed 11/20/24] clopidogrel 75 mg tablet (Plavix) 75 mg PO DAILY 06/06/24 [History Confirmed 11/20/24] methylcellulose (with sugar) 2 gram/19 gram oral powder 1 tbsp PO DAILY 06/06/24[History Confirmed 11/20/24] carvedilol 3.125 mg tablet 3.125 mg PO BID 09/16/24 [History Confirmed 11/20/24] ferrous sulfate 325 mg (65 mg iron) tablet 325 mg PO Q48HR #45 tabs 09/16/24 [Rx Confirmed 11/20/24] nortriptyline 25 mg capsule 50 mg PO QHS 09/16/24 [History Confirmed 11/20/24] cyanocobalamin (vitamin B-12) 1,000 mcg/mL injection solution 1,000 mcg IM .monthly 10/19/24 [History Confirmed 11/20/24] psyllium husk (aspartame) 3.4 gram oral powder packet (Metamucil Fiber Singles) 1 packet PO DAILY 30 days #30 ea 10/20/24 [Rx Confirmed 11/20/24] atorvastatin 20 mg tablet 20 mg PO DAILY 11/20/24 [History Confirmed 11/20/24] ezetimibe 10 mg tablet (Zetia) 10 mg PO DAILY 11/20/24 [History Confirmed 11/20/24] furosemide 20 mg tablet 20 mg PO DAILY 11/20/24 [History Confirmed 11/20/24] Assessment & Plan Assessment/Plan (1) Acute systolic (congestive) heart failure: (2) Acute kidney injury: (3) Chronic respiratory failure with hypoxia: (4) CHRIS (obstructive sleep apnea): (5) Severe obstructive sleep apnea: (6) Hyperlipidemia: Plan Plan: Hospital admission, inpatient status. Consult to cardiology. Ongoing telemetry monitoring. Strict daily weights. Strict inputs and outputs. Consult to nephrology. Checking bladder scans to make sure he is not having acute bladder urinary retention. Check BMP daily. Avoid nephrotoxic medications. He has had a lot of changes to his GDMT medications. At this time ERVIN inhibitors and Jardiance and angiotensin receptor blockers will be avoided untilwe see how his creatinine does. I recommend nuclear stress testing for an ischemia evaluation as I do not think this patient's creatinine will improve enough over the next day or 2 to make himsafe for cardiac catheterization, but of course the choice of imaging is ultimately deferred to the gis software developer who will be seeing the patient: Dr. Larkin. IP vs OBS Justification Based on differential dx, clinical care plan, and risk of adverse events, if untreated, in my clinical judgement this patient requires an acute care setting as: INPATIENT because of an expectation of an over 2 midnight stay. Estimated length of stay (# of days): 9 Documented By: Turner Knott DO [id number] Signed By: <Electronically signed by Turner Knott DO> 11/20/241921 [facility] Work Phone: [phone]) 909-314902-05-2025 [place] [address] Cardiology Consult Note Signed Patient: Char Alatorre MR#: [id number] : 1950 Acct:[id number] Age/Sex: 73 / M Adm Date: 5 Loc: Room: [address] [place] [address] Type: ADM IN Attending Dr: Turner Knott DO Copies to: DO Odalys Dennison MD Rugen M Alda, MD~ Cardiology HPI History of Present Illness Consult Date: 11/20/24 Reason for Consult: CHF HPI: Mr. Alatorre is a 73 year old male who earlier today established care with [facility] cardiology. He has a PMH significant for HFrEF/recent drop in EF 20-25%, CAD s/pPCI to RCA in 2023, PAD s/p aortobifem bypass, DM II, HTN, HLD,pulmonary HTN, CKD III, severe untreated CHRIS. He presented with his who riley nurse and hisdaughter who helped provide some of the history. He is currently at a correction, having been placed there last week after an admission at [facility] following a fall. At that admission, he was noted to have elevated creatinine. Diuretics were held and he received IV fluids. ECHO during the hospitalization showed a drop in EF to 20-25% but this was not addressed. He had a prior admi october at [facility] for decompenstaed HF and hypoxia and there was concern for overdiuresis so he received IV fluids prior to discharged. Today he reports that since his discharge last week, he has gained 10lbs with accompanying dyspnea at rest, BLE edema, fatigue, orthopnea and PND. He denies any chest pain. He has doubled his lasix without much increase in urine output. Reviewed previous cardiac work up at [facility] and [place]: Echo 12/19/2023: EF 55-60% with grade 1 diastolic dysfunction Echo 05/13/2024: LVEF 35-40% with diffuse hypokinesis and grade 2 diastolic dysfunction. RVSP 35 mmHg Echo 06/12/2024: LVEF 45-50% with mild global hypokinesis, average global longitudinal strain is -13%. Normal RV size and function. RVSP 48 mmHg. Mild to moderate aortic regurgitation, mild aortic stenosis Limited echo 11/11/2024 at [facility]: Severely reduced EF 20-25% with diffuse global hypokinesis, borderline RV systolic function, moderate severe biatrial dilatation, heavily calcified aortic valve with reduced mobility. RHC 05/17/2024: RA 5, PA 35/17 (25) PCWP 4, cardiac output 3.7/cardiac index 1.7 TPG 21 mmHg, DPG 13 mmHg, PVR 5.6 Wood units. Consistent with precapillary pulmonary hypertension. [facility] 05/22/2024: Left main: Patent, LAD: 40%, left circumflex minor irregularities,OM 280% proximal, OM 360% stenosis, RCA 80% proximal stenosis and 40% mid. Conclusion: Three-vessel coronary disease involving LAD, OM 2 and ostium branch of the RCA (80%) [facility] 05/29/2024: PCI to RCA with 4.0 x 15 mm Xience MINDY. 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 Atrophic kidney Alcohol abuse Abdominal aortic aneurysm Surgical History History of peripheral artery bypass History of PTCA Hx of cardiac catheterization x 3 Hx of resection of small bowel Hx of cholecystectomy Hx of cataract removal with insertion of prosthetic lens Hx of colonoscopy (~2018) History of abdominal aortic aneurysm repair History of back surgery History of right-sided carotid endarterectomy H/O hemorrhoidectomy Family History Brother Cancer Legacy FamHx Relation: Brother(s); Legacy FamHx Problem: Diagnosed with Cancer Bicuspid cardiac valve Father Cancer Legacy FamHx Problem: Diagnosed with Cancer Hypertension Mother Family history of pancreatic cancer Cancer Legacy FamHx Problem: Diagnosed with Cancer Sister Cancer Legacy FamHx Problem: Diagnosed with Cancer Lung cancer Social History Smoking Status: Former smoker Tobacco Type: cigarettes Substance Use Type: None Substance Abuse Comment: One beer a week Meds Medications and Allergies Allergies No Known Allergies Allergy (Verified 11/20/24 10:02) Home Medications apixaban 5 mg tablet (Eliquis) 5 mg PO BID 01/25/24 [History Confirmed 11/20/24] cholecalciferol (vitamin D3) 50 mcg (2,000 unit) capsule 2,000 unit PO DAILY 02/22/24 [History Confirmed 11/20/24] clopidogrel 75 mg tablet (Plavix) 75 mg PO DAILY 06/06/24 [History Confirmed 11/20/24] methylcellulose (with sugar) 2 gram/19 gram oral powder 1 tbsp PO DAILY 06/06/24[History Confirmed 11/20/24] carvedilol 3.125 mg tablet 3.125 mg PO BID 09/16/24 [History Confirmed 11/20/24] ferrous sulfate 325 mg (65 mg iron) tablet 325 mg PO Q48HR #45 tabs 09/16/24 [Rx Confirmed 11/20/24] nortriptyline 25 mg capsule 50 mg PO QHS 09/16/24 [History Confirmed 11/20/24] cyanocobalamin (vitamin B-12) 1,000 mcg/mL injection solution 1,000 mcg IM .monthly 10/19/24 [History Confirmed 11/20/24] psyllium husk (aspartame) 3.4 gram oral powder packet (Metamucil Fiber Singles) 1 packet PO DAILY 30 days #30 ea 10/20/24 [Rx Confirmed 11/20/24] atorvastatin 20 mg tablet 20 mg PO DAILY 11/20/24 [History Confirmed 11/20/24] ezetimibe 10 mg tablet (Zetia) 10 mg PO DAILY 11/20/24 [History Confirmed 11/20/24] furosemide 20 mg tablet 20 mg PO DAILY 11/20/24 [History Confirmed 11/20/24] Exam Physical Exam Vital Signs: Temp Pulse Resp BP Pulse Ox O2 Del Method O2 Flow Rate 96.1 F L 84 20 111/55 L 100 Nasal Cannula 2 11/20/24 13:35 11/20/24 13:35 11/20/24 13:35 11/20/24 13:35 11/20/24 13:35 11/20/24 16:00 11/20/24 16:00 Narrative: GEN: AAOx3. Chronically ill-appearing, sitting in wheelchair Neck: Elevated JVD. Lungs: Diminished at the bases bilaterally Heart: Regular rate and rhythm. Normal S1 and S2. No murmurs or rubs appreciated. Abdomen: Soft, nontender, nondistended, bowel sounds present. Extremities: 3+ BLE edema. Neuro: AAOx3. No focal deficits. Results - Cardiology Labs 11/20/24 15:27 11/20/24 15:27 Lab results: Cardiac Enzymes 11/20/24 Range/Units 15:27 AST 42 H (13-39) U/L B-Natriuretic Peptide 5962.0 H (5-100) pg/mL CBC 11/20/24 Range/Units 15:27 RBC 4.36 (3.90-5.60) x10E6/uL Hgb 10.0 L (13.0-17.0) g/dL Hct 31.4 L (38.8-50.0) % Plt Count 217 (150-450) x10E3/uL Neut # (Auto) 4.8 (1.8-7.7) x10E3/uL Lymph # (Auto) 0.9 L (1.00-4.8) x10E3/uL Gates # (Auto) 0.8 (0.0-0.8) x10E3/uL Eos # (Auto) 0.0 (0.0-0.45) x10E3/uL Baso # (Auto) 0.0 (0.0-0.2) x10E3/uL Comprehensive Metabolic Panel 11/20/24 Range/Units 15:27 Sodium 131 L (136-145) mmol/L Potassium 4.4 (3.5-5.1) mmol/L Chloride 101 (98-107) mmol/L Carbon Dioxide 22.7 (21.0-31.0) mmol/L BUN 61 H (7-25) mg/dL Creatinine 3.04 H (0.70-1.30) mg/dL Glucose 108 H (70-100) mg/dL Calcium 9.5 (8.6-10.3) mg/dL Direct Bilirubin 0.70 H (0.03-0.18) mg/dL Indirect Bilirubin 0.8 mg/dL AST 42 H (13-39) U/L ALT 76 H (7-52) U/L Alkaline Phosphatase 159 H (34-104) U/L Total Protein 6.3 L (6.4-8.9) gm/dL Albumin 3.0 L (3.5-5.7) gm/dL Intake and Output 11/20/24 11/20/24 11/20/24 07:59 15:59 23:59 Intake Total 25 / 100 75 / 100 Output Total 0 / 0 Balance 25 / 100 75 / 100 Intake: Oral 25 / 100 75 / 100 Output: Urine 0 / 0 Other: # Unmeasured Voids 1 # Bowel Movements 0 Weight 84.6 kg Patient Weight 11/20/24 23:59 Weight 84.6 kg Lab 11/20/24 15:27 PT 30.9 H INR 2.8 APTT 41.0 H A&P - Cardiology (1) Acute kidney injury: Code(s): N17.9 - Acute kidney failure, unspecified (2) Acute systolic (congestive) heart failure: Code(s): I50.21 - Acute systolic (congestive) heart failure (3) Chronic respiratory failure with hypoxia: Code(s): J96.11 - Chronic respiratory failure with hypoxia (4) CHRIS (obstructive sleep apnea): Code(s): G47.33 - Obstructive sleep apnea (adult) (pediatric) (5) Systolic CHF: Code(s): I50.20 - Unspecified systolic (congestive) heart failure (6) Pulmonary hypertension: Code(s): I27.20 - Pulmonary hypertension, unspecified (7) Hyperlipidemia: Code(s): E78.5 - Hyperlipidemia, unspecified (8) Nephrolithiasis: Code(s): N20.0 - Calculus of kidney Plan Assessment: Acute decompensated HF. NYHA IV symptoms VIKY on CKD 3- Cardiorenal syndrome Transaminitis Ischemic cardiomyopathy. EF 20-25% on 11/11/24 from [facility] CAD s/p to PCI to RCA 05/2024 Sarcopenia HLD HTN Pulmonary HTN- Likely Precapillary from untreated CHRIS COPD PAD s/p aortobifem bypass, R renal artery stenosis and occluded PABLO. On Eliquis. Severe untreated CHRIS Limited echo 11/11/2024 at [facility]: Severely reduced EF 20-25% with diffuse global hypokinesis, borderline RV systolic function, moderate severe biatrial dilatation, heavily calcified aortic valve with reduced mobility. [facility] 05/17/2024: RA 5, PA 35/17 (25) PCWP 4, cardiac output 3.7/cardiac index 1.7 TPG 21 mmHg, DPG 13 mmHg, PVR 5.6 Wood units. Consistent with precapillary pulmonary hypertension. [facility] 05/22/2024: Left main: Patent, LAD: 40%, left circumflex minor irregularities,OM 280% proximal, OM 360% stenosis, RCA 80% proximal stenosis and 40% mid. Conclusion: Three-vessel coronary disease involving LAD, OM 2 and ostium branch of the RCA (80%) [facility] 05/29/2024: PCI to RCA with 4.0 x 15 mm Xience MINDY. Plans to continue Plavixand Eliquis for at least 1 year (May 2025) EKG 11/20/2024: Normal sinus rhythm with first-degree AV block ST-T changes suggestive of inferolateral ischemia Recommendations: - Pt is hypervolemic as evidenced by clinical congestion, weight gain, elevated BNP and transaminitis suggestive of congestive hepatopathy. Will start IV diuresis for goal uop net negative 1-2L in 24h - Monitor renal function and strict I/Os. Keep K>4; Mg>2 - Continue Eliquis 5 mg BID for hx of PAD, Lipitor 20 mg daily, carvedilol 3.125mg twice daily and Plavix 75 mg daily. Unable to start MRA/ARNI or SGLT2i due torenal dysfunction - Will consider nuclear stress test for ischemic evaluation once euvolemic. Nephrology consulted. - Will follow. Documented By: Odalys Spaulding MD 11/20/241912 Signed By: 11/20/241958 [facility]02-05-2025 [place] [address] Hospitalist H&P Signed Patient: Char Alatorre MR#: [id number] : 1950 Acct:[id number] Age/Sex: 73 / M Adm Date: 5 Loc: Room: [address] [place] [address] Type: ADM IN Attending Dr: Turner Knott DO Copies to: DO Justin Dennison MD~ HPI DATE OF EXAMINATION: 11/20/24 CHIEF COMPLAINT: CHF HISTORY OF PRESENT ILLNESS: A 73-year-old man who is direct admitted from the cardiology office of Dr. Gutierrez for congestive heart failure. He previously got his cardiology care out of [place] in [place]. Over the last 2 months his Lasix dose has been decreased to 20 mg daily. He had a presentation to hospital about a month ago with dyspnea despite increasing his Lasix up to 40mg daily. The meantime he has been admitted at the [facility] for 5 days after a fall. There he was found to have an acute kidney injury he was given IV fluids and his Lasix was stopped. In the cardiology office this morning he said that he has worsening shortness ofbreath, worsening leg edema, orthopnea, postural nocturnal dyspnea, and lightheadedness when moving around. His Lasix dose has been increased recently to 40 mg twice daily but that only happened yesterday. Of particular concern is that the patient had an echocardiogram done on 11/07/2024 when he was at the [facility] where his left ventricular ejection fraction has declined to 20 to 25%. There was moderate severe biatrialdilatation, and a heavily calcified thick aortic valve with reduced mobility. Per the cardiology note from this morning he has had the following workup. Previous cardiology workup in [place] and [facility]: Echo 12/19/2023: EF 55-60% with grade 1 diastolic dysfunction Echo 05/13/2024: LVEF 35-40% with diffuse hypokinesis and grade 2 diastolic dysfunction. RVSP 35 mmHg Echo 06/12/2024: LVEF 45-50% with mild global hypokinesis, average global longitudinal strain is -13%. Normal RV size and function. RVSP 48 mmHg. Mild to moderate aortic regurgitation, mild aortic stenosis Limited echo 11/11/2024: Severely reduced EF 20-25% with diffuse global hypokinesis, borderline RV systolic function, moderate severe biatrial dilatation, heavily calcified aortic valve with reduced mobility. RHC 05/17/2024: RA 5, PA 35/17 (25) PCWP 4, cardiac output 3.7/cardiac index 1.7 TPG 21 mmHg, DPG 13 mmHg, PVR 5.6 Wood units. Consistent with precapillary pulmonary hypertension. [facility] 05/22/2024: Left main: Patent, LAD: 40%, left circumflex minor irregularities,OM 280% proximal, OM 360% stenosis, RCA 80% proximal stenosis and 40% mid. Conclusion: Three-vessel coronary disease involving LAD, OM 2 and ostium branch of the RCA (80%) [facility] 05/29/2024: PCI to RCA with 4.0 x 15 mm Xience MINDY. Plans to continue Plavixand Eliquis for at least 1 year (May 2025) In the past he had a CT scan that shows an atrophic right kidney. In the past he has been in the hospital in [place] where he got some IV iodinated contrast for an evaluation of an ischemic leg. After being admitted from the cardiology office of Dr. Odalys Spaulding patient proved extremely difficult to place an IV or get a lab draw. Bedside nurses, the nursing tray line supervisor, and the CARE TAKER were allnot able to get a peripheral IV placed. Therefore the vascular access company was contacted to place a PICC line. Thereafter his BUN is demonstrably higher than it has been in the past having gone from a baseline of about 20 up to 61 and his creatinine has risen from a baseline of about 2.0 up to 3.04 today. Hissodium is a little bit low at 131. B- type natriuretic peptide is extremely high at 5962. Albumin riley little bit low at 3.0. Nephrology ordered a Benavidez catheter be placed. At this time the Benavidez catheter has drained about 300 mL of urine which is clear and yellow with no purulence and no evidence of blood. The patient is accompanied to the room by 2 daughters. They report that he has had a lot of fatigue. A lot of dyspnea on mild exertion, such as walking up to the mailbox. Over the last couple months he has been put on supplemental oxygen. He currently is at a group home facility after getting out of the [facility]. He has had a lot of weakness. He has had noticeable muscle wasting. His appetite has been poor. Review of Systems Review of Systems Review of systems: 10 systems are reviewed and are negative except as mentioned elsewhere in the documentation. 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 Atrophic kidney Alcohol abuse Abdominal aortic aneurysm Surgical History History of peripheral artery bypass History of PTCA Hx of cardiac catheterization x 3 Hx of resection of small bowel Hx of cholecystectomy Hx of cataract removal with insertion of prosthetic lens Hx of colonoscopy (~2018) History of abdominal aortic aneurysm repair History of back surgery History of right-sided carotid endarterectomy H/O hemorrhoidectomy Family History Brother Cancer Legacy FamHx Relation: Brother(s); Legacy FamHx Problem: Diagnosed with Cancer Bicuspid cardiac valve Father Cancer Legacy FamHx Problem: Diagnosed with Cancer Hypertension Mother Family history of pancreatic cancer Cancer Legacy FamHx Problem: Diagnosed with Cancer Sister Cancer Legacy FamHx Problem: Diagnosed with Cancer Lung cancer Social History Smoking Status: Former smoker Substance Use Type: None Substance Abuse Comment: One beer a week Meds Medications and Allergies Allergies No Known Allergies Allergy (Verified 11/20/24 10:02) Home Medications apixaban 5 mg tablet (Eliquis) 5 mg PO BID 01/25/24 [History Confirmed 11/20/24] cholecalciferol (vitamin D3) 50 mcg (2,000 unit) capsule 2,000 unit PO DAILY 02/22/24 [History Confirmed 11/20/24] clopidogrel 75 mg tablet (Plavix) 75 mg PO DAILY 06/06/24 [History Confirmed 11/20/24] methylcellulose (with sugar) 2 gram/19 gram oral powder 1 tbsp PO DAILY 06/06/24[History Confirmed 11/20/24] carvedilol 3.125 mg tablet 3.125 mg PO BID 09/16/24 [History Confirmed 11/20/24] ferrous sulfate 325 mg (65 mg iron) tablet 325 mg PO Q48HR #45 tabs 09/16/24 [Rx Confirmed 11/20/24] nortriptyline 25 mg capsule 50 mg PO QHS 09/16/24 [History Confirmed 11/20/24] cyanocobalamin (vitamin B-12) 1,000 mcg/mL injection solution 1,000 mcg IM .monthly 10/19/24 [History Confirmed 11/20/24] psyllium husk (aspartame) 3.4 gram oral powder packet (Metamucil Fiber Singles) 1 packet PO DAILY 30 days #30 ea 10/20/24 [Rx Confirmed 11/20/24] atorvastatin 20 mg tablet 20 mg PO DAILY 11/20/24 [History Confirmed 11/20/24] ezetimibe 10 mg tablet (Zetia) 10 mg PO DAILY 11/20/24 [History Confirmed 11/20/24] furosemide 20 mg tablet 20 mg PO DAILY 11/20/24 [History Confirmed 11/20/24] Assessment & Plan Assessment/Plan (1) Acute systolic (congestive) heart failure: (2) Acute kidney injury: (3) Chronic respiratory failure with hypoxia: (4) CHRIS (obstructive sleep apnea): (5) Severe obstructive sleep apnea: (6) Hyperlipidemia: Plan Plan: Hospital admission, inpatient status. Consult to cardiology. Ongoing telemetry monitoring. Strict daily weights. Strict inputs and outputs. Consult to nephrology. Checking bladder scans to make sure he is not having acute bladder urinary retention. Check BMP daily. Avoid nephrotoxic medications. He has had a lot of changes to his GDMT medications. At this time ERVIN inhibitors and Jardiance and angiotensin receptor blockers will be avoided untilwe see how his creatinine does. I recommend nuclear stress testing for an ischemia evaluation as I do not think this patient's creatinine will improve enough over the next day or 2 to make himsafe for cardiac catheterization, but of course the choice of imaging is ultimately deferred to the gis software developer who will be seeing the patient: Dr. Larkin. IP vs OBS Justification Based on differential dx, clinical care plan, and risk of adverse events, if untreated, in my clinical judgement this patient requires an acute care setting as: INPATIENT because of an expectation ofan over 2 midnight stay. Estimated length of stay (# of days): 9 Documented By: Turner Knott, 1407 Signed By: 11/20/24 192 [facility]01-30-2025 Miscellaneous Notes* Telephone Encounter - Corry Garcia - 11/14/2024 3:34 PM EST ----- Message from RUBÉN Gama sent at 11/09/2024 3:06 PM EST ----- Will need outpatient for follow up with general neurology due to concern for dementia. * Telephone Encounter - Richelle Maurer - 11/14/2024 3:34 PM EST 1st attempt: Relay Tester contacted patient and left a voicemail offering to schedule in with our clinic for a hospital follow up appointment as we have received a provider message requesting to see patient in office. Relay Tester provided callback number for scheduling or to address any questions or concerns they may have. * Telephone Encounter - Cecilia Miner - 11/14/2024 3:34 PM EST 2nd attempt: Left message for patient documented in this encounterWayne HospitalEagle [facility] [id number] Telephone encounter Note* Telephone Encounter - Corry Garcia - 11/14/2024 3:34 PM EST ----- Message from RUBÉN Gama sent at 11/09/2024 3:06 PM EST ----- Will need outpatient for follow up with general neurology due to concern for dementia. [employer]01-30-2025 Telephone encounter Note* Telephone Encounter - Richelle Tiwari Erasto - 11/14/2024 3:34 PM EST 1st attempt: Relay Tester contacted patient and left a voicemail offering to schedule in with our clinic for a hospital follow up appointment as we have received a provider message requesting to see patient in office. Relay Tester provided callback number for scheduling or to address any questions or concerns they may have. [facility] Telephone encounter Note* Telephone Encounter - Cecilia Miner - 11/14/2024 3:34 PM EST 2nd attempt: Left message for patient [facility] [employer] [id number] Telephone encounter Note* Telephone Encounter - Maria E Pardo MA - 11/12/2024 8:41 AM EST Did a PA on epogen for pt , it was denied as pt has not tried retacrit injection solution (and thiswill also require a PA) please advise [facility] [id number] Miscellaneous Notes* Telephone Encounter - Maria E Pardo MA - 11/12/2024 8:41 AM EST Did a PA on epogen for pt , it was denied as pt has not tried retacrit injection solution (and thiswill also require a PA) please advise documented in this encounterSt. 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 He would benefit from Portable O2 to help with ADLs and IADls * Justin Martinez MD - 10/21/2024 11:00 AM EST Images from the original note were not [...] for Hypertension and follow up to ER visit(Pt went to er for abd pain, found to be constipated and was told to use miralax daily). Pt went to ER due to abd pain and was found to be constipated and was told to take miralax daily , this is doing better Pt [place] the [place] [facility] [place] , and losing weight [...] 1975 KNEE CARTILAGE SURGERY Bilateral meniscus repairs [id number] OTHER SURGICAL HISTORY 1992 Herniated disc L5-S1 OTHER SURGICAL HISTORY 05/11/2022 Right Leg ischemia: Right Groin exploration. Right iliofemoral endarterectomy and patch with ipsilateral anterior saphenous vein. Abdominal Aorticogram with Stenting of right and left limbs. Balloon Angioplasty of the rt external iliac artery. OTHER SURGICAL HISTORY 05/11/2022 Right ext. iliac artery endarterectomy and patch utilizing great saphenous vein, RI LAP,CHOLECYSTECTOMY 01/10/2020 Laparoscopic cholecystectomy, open laparotomy lysis [...] NYHA class 3 and CKD stage 4 ([facility])([facility]) - Primary Consider Entresto BP currently low Lasix resume Watch weight On Jardiance Has O2 but will add portable His O2 sat will drop to 87-88% with minimal exertion. He would benefit from Portable O2 to help with ADLs and IADls Relevant Medications epoetin moni (Epogen) 2000 UNIT/ML injection CKD stage 3b, GFR 30-44 ml/min ([facility]) Fluid status improtant Add Epogen [...] 2000 UNIT/ML injection No follow-ups on file. * Justin Martinez MD - 10/21/2024 11:00 AM EST Images from the original note were not [...] Flowsheet Row Patient Outreach from 10/14/2024 in [facility] with Vanesa Anglinell [facility] Information ED, Hospital or [facility] Facility Discharge? ED Patient has been contacted within 1 week of being seen in the ED Yes Diagnosis abdominal pain Discharge Date 10/09/24 Discharged To: Home Setting Discharge [facility] Engagement Call Start Time 1028 [...] abdominal pain and nausea. CT abd/pelvis w contrastshowed significant amount of stool in ascending colon. [...] NYHA class 3 and CKD stage 4 ([facility])([facility]) - Primary Consider Entresto BP currently low Lasix resume Watch weight On Jardiance Has O2 but will add portable His O2 sat will drop to 87-88% with minimal exertion. He would benefit from Portable O2 to help with ADLs and IADls Relevant Medications epoetin moni (Epogen) 2000 UNIT/ML injection CKD stage 3b, GFR 30-44 ml/min ([facility]) Fluid status improtant Add Epogen for low hgb 9 with comorbidities of CHF with recent hospitalization Relevant Medications epoetin moni (Epogen) 2000 UNIT/ML injection Anemia in other chronic diseases classified elsewhere Anemia needs treated Relevant Medications epoetin moni (Epogen) 2000 UNIT/ML injection Other Visit Diagnoses CHF (congestive heart failure), NYHA class IV, acute on chronic, diastolic ([facility]) Relevant Medications epoetin moni (Epogen) 2000 UNIT/ML injection Follow up in about 4 weeks (around 11/18/2024). documented in this encounterSt. Joseph Medical [id number] Discharge summary Author Geoff Swann [facility] Note Date/Time October 20, 2024 1: 34pm [facility] [address] [place] [address] Discharge Summary Signed Patient: Char Alatorre MR#: [id number] : 1950 Acct:[id number] Age/Sex: 73 / M Adm Date: 5 Loc: 3T Room: [address] [place] [address]: Geoff Swann DO Copies to: [...] to 40 mg after speaking with his gis software developer on the phone. His gis software developer in [facility] suggested increase Lasix temporarily to 40 [...] knows he has to follow-up with his gis software developer about this issue, and is considering perhaps [...] our local cardiology group or his own gis software developer outpatient. Patient is feeling better this morning, [...] is secondary to his pulmonary hypertension. His gis software developer is in [facility] as mentioned above, he is interested [...] 1334 <Electronically signed by Alix Grimaldo> 10/20/24 1324 [facility] Work Phone: 1(509) 317-101501-05-2025 [place] [id number] Discharge Summary Signed Patient: Char Alatorre MR#: [id number] : 1950 Acct:[id number] Age/Sex: 73 / M Adm Date: 5 Loc: Room: [address] [place] [address]: Geoff Swann DO Copies to: [...] oral,to 40 mg after speaking with his gis software developer on the phone. His gis software developer in [facility] suggested increase Lasix temporarily to 40 [...] knows he has to follow-up with his gis software developer about this issue, and is considering perhaps [...] our local cardiology group or his own gis software developer outpatient. Patient is feeling better this morning, [...] is secondary to his pulmonary hypertension. His gis software developer is in [facility] as mentioned above, he is interested [...] 1242 Signed By: 10/20/24 1334 10/20/24 1329 [facility]01-04-2025 History and physical note Author Geoff Swann [facility] Note Date/Time October 19, 2024 4: 47pm [facility] [address] [place] [address] Hospitalist H&P Signed Patient: Char Alatorre MR#: [id number] : 1950 Acct:[id number] Age/Sex: 73 / M Adm Date: 5 Loc: 3T Room: [address] [place] [address] Type: ADM IN Attending Dr: Geoff Swann [...] mg daily on September 25 per his gis software developer in [facility]. He recently called and said he is been feeling more shortness of breath and his gis software developer increased him back to 40 mg daily. [...] noted below or in HPI [facility] Medical History (Updated 10/19/24 @ 16:42 by [...] Lasix given today ?He has a primary gis software developer in [place] however they live here locally in [place] and are interested in switching care to [...] signed by Geoff Swann DO> 10/19/24 1647 [facility] Work Phone: 1(491) 176-739901-04-2025 [place] [address] Hospitalist H&P Signed Patient: Char Alatorre MR#: [id number] : 1950 Acct:[id number] Age/Sex: 73 / M Adm Date: 5 Loc: Room: [address] [place] [address] Type: ADM IN Attending Dr: Geoff Swann [...] mg daily on September 25 per his gis software developer in [facility]. He recently called and said he is been feeling more shortness of breath and his gis software developer increased him back to 40 mg daily. [...] noted below or in HPI [facility] Medical History (Updated 10/19/24 @ 16:42 by [...] Lasix given today ?He has a primary gis software developer in [place] however they live here locally in [place] and are interested in switching care to [...] (# of days): 3 Documented By: Geoff Swann, 10/19/24 1633 Signed By: 10/19/24 1647 [facility]11-19-2024 Evaluation note* Diagnosis Onset Date Resolution Status Admit Date Aortic stenosis acute September 03, 2024 9:28am CKD (chronic kidney disease) stage 3, GFR 30-59 ml/min acute August 9:28am Nocturnal hypoxia acute r 2023 9:28am PAD (peripheral artery disease) [...] CHF (congestive heart failure) acute 2024 3:29pm [facility] Work Phone: 1(288) 186-668311-19-2024 Evaluation note* Diagnosis Onset Date Resolution Status Admit Date Aortic stenosis acute September 03, 2024 9:28am CKD (chronic kidney disease) stage 3, GFR 30-59 ml/min acute August 9:28am Nocturnal hypoxia acute Novem r 2023 9:28am PAD (peripheral artery disease) [...] exacerbation of CHF (congestive heart failure) acute Janua ry 2024 3:29pm Acute hypoxic respiratory failure ac kerrie October 19, 2024 3:29pm Anemia of renal disease acute J anuary 2024 3:29pm CKD (chronic kidney disease) stage 3, GFR 30-59 ml/min acute October 19, 2024 3:29pm Heart failure with preserved ejection fraction acute October 19, 2 025 3:29pm Severe obstructive sleep apnea acute October 19, 2024 3:29pm [facility] Work Phone: 1(149) 379-855511-19-2024 Evaluation note* Diagnosis Onset Date Resolution Status [...] with preserved ejection fraction acute October 19, 025 3:29pm Severe obstructive sleep apnea acute October 19, 2024 3:29pm Acute exacerbation of CHF (congestive heart failure) resolved Octua ry 2024 3:29pm Acute hypoxic respiratory failure re solved October 19, 2024 3:29pm Chronic respiratory failure with hypoxia acute October 28 11:03am CHRIS (obstructive sleep apnea) acute October 28, 2024 11:03am Pulmonary hypertension acute Ja nuary 2024 11:03am [facility] Work Phone: 1(178) 437-510311-19-2024 Evaluation note* Diagnosis Onset Date Resolution Status [...] stage 3, GFR 30-59 ml/min acute Octuar 2024 3:29pm Heart failure with preserved ejection [...] 11:03am [facility] Work Phone: 1(896) 449-791911-19-2024 Evaluation note* Diagnosis Onset Date Resolution Status [...] exacerbation of CHF (congestive heart failure) resolved Janua 2024 3:29pm Acute hypoxic respiratory failure re solved October 19, 2024 3:29pm Chronic respiratory failure with hypoxia acute October 28 11:03am CHRIS (obstructive sleep apnea) acute October 28, 2024 11:03am Pulmonary hypertension acute Ja nuary 2024 11:03am Acute kidney injury acute 2024 9:46am Acute systolic (congestive) heart failure acute November 20 9:46am Chronic respiratory failure with hypoxia acute November 20 9:46am CHRIS (obstructive sleep apnea) acute November 20, 2024 9:46am Pulmonary hypertension acute 2024 9:46am Severe obstructive sleep apnea acute November 20, 2024 9:46am Acute kidney injury acute 2024 12:54pm Acute systolic (congestive) heart failure acute November 20 12:54pm Chronic respiratory failure with hypoxia acute November 20 12:54pm Hyperlipidemia acute November 202024 12:54pm Nephrolithiasis acute November 20, 2024 12:54pm CHRIS (obstructive sleep apnea) acute November 20, 2024 12:54pm Pulmonary hypertension acute 2024 12:54pm Severe obstructive sleep apnea acute November 20, 2024 12:54pm Systolic CHF acute November 12:54pm [facility] Work Phone: 1(430) 490-398611-19-2024 Evaluation note* Diagnosis Onset Date Resolution Status Admit Date Aortic stenosis acute September 03, 2024 9:28am CKD (chronic kidney disease) stage 3, GFR 30-59 ml/min acute Novemb er 2023 9:28am Pulmonary hypertension acute No vember 2023 9:28am Severe obstructive sleep apnea acute September 03, 2024 9:28am PAD (peripheral artery disease) inac tive September 03, 2024 9:28am Nocturnal hypoxia deleted Novembe r 2023 9:28am Systolic CHF deleted August 9:28am Anemia of renal disease acute [...] hypertension acute Ja nuary 2024 11:03am Acute systolic (congestive) heart failure acute November 20 9:46am Chronic respiratory failure with hypoxia acute November 20 9:46am CHRIS (obstructive sleep apnea) acute November 20, 2024 9:46am Pulmonary hypertension acute 2024 9:46am Severe obstructive sleep apnea acute November 20, 2024 9:46am Acute kidney injury deleted u lily 2024 9:46am Acute kidney injury superimp osed on CKD acute November 20 12:54pm Acute systolic (congestive) heart failure acute November 20 12:54pm 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 acute November 20, 2024 12:54pm CAD (coronary artery disease) acute November 20, 2024 12:54pm Chronic respiratory failure with hypoxia acute November 20 12:54pm CKD (chronic kidney disease) stage 3, GFR 30-59 ml/min acute ua ry 2024 12:54pm Hyperlipidemia acute November 202024 12:54pm Hypokalemia acute November 20, 2024 12:54pm Iron deficiency anemia acute Fe bruary 2024 12:54pm Nephrolithiasis acute November 20, 2024 12:54pm CHRIS (obstructive sleep apnea) acute November 20, 2024 12:54pm Pulmonary hypertension acute Fe bruary 2024 12:54pm Severe obstructive sleep apnea acute November 20, 2024 12:54pm Severe protein-calorie malnutrition acute November 20 12:54pm Acute kidney injury deleted Sandiu lily 2024 12:54pm Systolic CHF deleted November 12:54pm [facility] Work Phone: 1(427) 443-412510-26-2024 Telephone encounter Note* Telephone Encounter - PHILIPPE Carrillo - 08/10/2024 10:26 AM EDT Coreg and Plavix sent. [facility] [id number] Miscellaneous Notes* Telephone Encounter - PHILIPPE Carrillo - 08/10/2024 10:26 AM EDT Coreg and Plavix sent. documented in this encounterSt. Joseph Medical [id number] History of Present illness Narrative* Justin Martinez [...] 1975 KNEE CARTILAGE SURGERY Bilateral meniscus repairs [id number] OTHER SURGICAL HISTORY 1992 Herniated disc L5-S1 OTHER SURGICAL HISTORY 05/11/2022 Right Leg ischemia: Right Groin exploration. Right iliofemoral endarterectomy and patch with ipsilateral anterior saphenous vein. Abdominal Aorticogram with Stenting of right and left limbs. Balloon Angioplasty of the rt external iliac artery. OTHER SURGICAL HISTORY 05/11/2022 Right ext. iliac artery endarterectomy and patch utilizing great saphenous vein, RI LAP,CHOLECYSTECTOMY 01/10/2020 Laparoscopic cholecystectomy, open laparotomy lysis [...] Addressed This Visit Atherosclerotic heart disease of [place] coronary artery without angina pectoris (CMS/HCC) Coronary [...] 3 months (around 10/16/2024). documented in this [facility]08-22-2024 Evaluation note* Diagnosis Onset Date Resolution Status [...] disease) stage 3, GFR 30-59 ml/min acute eladio 2023 10:13am Nocturnal hypoxia acute Septemb er 2023 10:13am PAD (peripheral artery disease) acut e July 03, 2024 10:13am Pulmonary hypertension acute Se ptember 2023 10:13am Systolic CHF acute July 032023 10:13am [facility] Work Phone: 1(980) 372-975608-22-2024 Evaluation note* Diagnosis Onset Date Resolution Status [...] 2024 9:28am Systolic CHF acute August 9:28am [facility] Work Phone: 1(705) 546-368508-20-2024 History of Present illness Narrative* Justin Martinez MD - 06/04/2024 10:56 AM EDTAssociated Problem(s): Pulmonary hypertension (CMS/HCC) Check sleep apnea On O2 at night Consider referral Software Product Specialist Low Sodium Diet 2 grams Weight goal [...] AM. Flowsheet Row Telephone from 05/14/2024 in [facility] with Justin Martinez MD Discharge Information ED, Hospital or [facility] Facility Discharge? Hospital Patient has been contacted within two business days of discharge Yes Discharge Date 05/13/24 Discharge Hospital [facility] Discharged To: Home Setting Engagement Call [...] had went to ER on 05/11 at [facility] stayed till 05/13 and then called his cardio dr and was sent to hospital [place] from 05/14 to 05/24 Pt did have a heart cath on 05/17 on the right, second one was the 7th did the left and third one on the 14th and also put in one stent Pt did see pulmonary consult and communications project manager and he see cardio next week Pt [...] time each day at the same time. Ozcrtyzbvjc-Gjxkkpkfi-Jgiorr (Trelegy Ellipta) 200-62.5-25 MCG/ACT aerosol powder Inhale [...] 1975 KNEE CARTILAGE SURGERY Bilateral meniscus repairs [id number] OTHER SURGICAL HISTORY 1992 Herniated disc L5-S1 OTHER SURGICAL HISTORY 05/11/2022 Right Leg ischemia: Right Groin exploration. Right iliofemoral endarterectomy and patch with ipsilateral anterior saphenous vein. Abdominal Aorticogram with Stenting of right and left limbs. Balloon Angioplasty of the rt external iliac artery. OTHER SURGICAL HISTORY 05/11/2022 Right ext. iliac artery endarterectomy and patch utilizing great saphenous vein, RI LAP,CHOLECYSTECTOMY 01/10/2020 Laparoscopic cholecystectomy, open laparotomy lysis [...] apnea On O2 at night Consider referral Software Product Specialist Relevant Orders Ambulatory referral to Sleep Studies Ambulatory referral to Pulmonology Congestive heart failure due to hypertension (CMS/HCC) Increase diligence on weight if weight gain>3 lbs inform us. Consider Jardiance/Farxiga for kidney and heart failure Relevant Orders Ambulatory referral to Sleep Studies Ambulatory referral to Pulmonology No follow-ups on file. documented in this encounterSt. Joseph Medical [id number] Evaluation note* Encounter Date Diagnosis Assessment Notes [...] Continue statins. Monitor LFTs and lipid profile [employer] Other 07-07-2022 Evaluation note* Encounter Date Diagnosis [...] D. His calcium is back to normal. [employer] Other 06-29-2022 NotePROCEDURE: [employer] Signa HDXT 1.5 Sagittal T1, T2, STIR [...] and signed by Lakhwinder Chappell on 04/13/2022 1153[facility] SpecialistChief complaint Narrative - ReportedCHAR ALATORRE is being seen for a consultation for [place]- Vasculopath.-[facility] 250 DO Work Phone: Discharge summary Author Geoff Swann [facility] Note Date/Time October 20, 2024 1: 34pm [facility] [address] [place] [address] Discharge Summary Signed Patient: Char Alatorre MR#: [id number] : 1950 Acct:[id number] Age/Sex: 73 / M Adm Date: 5 Loc: Room: [address] [place] [address]: Geoff Swann DO Copies to: [...] to 40 mg after speaking with his gis software developer on the phone. His gis software developer in [facility] suggested increase Lasix temporarily to 40 [...] knows he has to follow-up with his gis software developer about this issue, and is considering perhaps [...] our local cardiology group or his own gis software developer outpatient. Patient is feeling better this morning, [...] is secondary to his pulmonary hypertension. His gis software developer is in [facility] as mentioned above, he is interested [...] <Electronically signed by Alix Grimaldo> 10/20/24 1329 [facility] Work Phone: evaluation noteNo assessment information available [...] acute Hypokalemia acute Nephrolithiasis acute Proteinuria acute [facility] Work Phone: evaluation note* Diagnosis Onset Date [...] stage 4 (HCC) (CMS/HCC)- Primary Atherosclerosis of [place] coronary artery of [place] heart without angina pectoris (CMS/HCC) Pulmonary hypertension (CMS/HCC) Other chronic pulmonary heart diseases Coronary artery disease due to lipid rich plaque (CMS/HCC) Congestive heart failure due to hypertension (CMS/HCC) documented in this encounter [facility] HealthcareEvaluation note* Diagnosis Essential hypertension (CMS/HCC)- Primary Unspecified essential hypertension Routine general medical examination at health care facility Routine general medical examination at a health care facility History of smoking 30 or more pack years Atherosclerosis of [place] coronary artery of [place] heart without angina pectoris (CMS/HCC) Peripheral vascular disease (CMS/HCC) Unspecified peripheral vascular disease Right hip pain Pain in joint, pelvic region and thigh Peripheral vascular disease (CMS/HCC)- Primary Unspecified peripheral vascular disease Atherosclerosis of [place] coronary artery of [place] heart without angina pectoris (CMS/HCC) Nonrheumatic aortic [...] stage 4 (HCC) (CMS/HCC)- Primary Atherosclerosis of [place] coronary artery of [place] heart without angina pectoris (CMS/HCC) Pulmonary hypertension (CMS/HCC) Other chronic pulmonary heart diseases Coronary artery disease due to lipid rich plaque (CMS/HCC) Congestive heart failure due to hypertension (CMS/HCC) Atherosclerosis of [place] coronary artery of [place] heart without angina pectoris (CMS/HCC)- Primary Essential hypertension (CMS/HCC) Unspecified essential hypertension documented in this encounter [facility] HealthcareEvaluation note* Diagnosis Pulmonary hypertension (CMS/HCC)- Primary Other chronic pulmonary heart diseases Coronary artery disease due to lipid rich plaque (CMS/HCC) Congestive heart failure due to hypertension (CMS/HCC) documented in this encounter [facility] HealthcareEvaluation note* Diagnosis Essential hypertension (CMS/HCC)- Primary Unspecified essential hypertension Routine general medical examination at health care facility Routine general medical examination at a health care facility History of smoking 30 or more pack years Atherosclerosis of [place] coronary artery of [place] heart without angina pectoris (CMS/HCC) Peripheral vascular disease (CMS/HCC) Unspecified peripheral vascular disease Right hip pain Pain in joint, pelvic region and thigh Peripheral vascular disease (CMS/HCC)- Primary Unspecified peripheral vascular disease Atherosclerosis of [place] coronary artery of [place] heart without angina pectoris (CMS/HCC) Nonrheumatic aortic valve stenosis Moderate aortic stenosis by prior echocardiogram 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, 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) ([facility]) Pulmonary emphysema, unspecified emphysema type (CMS/HCC)- Primary [...] stage 4 (HCC) (CMS/HCC)- Primary Atherosclerosis of [place] coronary artery of [place] heart without angina pectoris (CMS/HCC) Pulmonary hypertension [...] chronic, diastolic (CMS/HCC) documented in this encounter [facility] HealthcareEvaluation note* Diagnosis Essential hypertension (CMS/HCC)- Primary Unspecified essential hypertension Routine general medical examination at health care facility Routine general medical examination at a health care facility History of smoking 30 or more pack years Atherosclerosis of [place] coronary artery of [place] heart without angina pectoris (CMS/HCC) Peripheral vascular disease (CMS/HCC) Unspecified peripheral vascular disease Right hip pain Pain in joint, pelvic region and thigh Peripheral vascular disease (CMS/HCC)- Primary Unspecified peripheral vascular disease Atherosclerosis of [place] coronary artery of [place] heart without angina pectoris (CMS/HCC) Nonrheumatic aortic [...] stage 4 (HCC) (CMS/HCC)- Primary Atherosclerosis of [place] coronary artery of [place] heart without angina pectoris (CMS/HCC) Pulmonary hypertension [...] HealthcareHistory and physical note Author Geoff Swann [facility] Note Date/Time October 19, 2024 4: 47pm [facility] [address] [place] [address] Hospitalist H&P Signed Patient: Char Alatorre MR#: [id number] : 1950 Acct:[id number] Age/Sex: 73 / M Adm Date: 5 Loc: Room: [address] [place] [address] Type: ADM IN Attending Dr: Geoff Swann DO Copies to: MD Geoff Barry, ~ HPI DATE OF EXAMINATION: 10/19/24 CHIEF COMPLAINT: shortness of breath HISTORY OF PRESENT ILLNESS: Mr Alatorre is a 73-year-old male with a past medical history of CHF with preserved ejection fraction, hypertension, hyperparathyroidism, hyperlipidemia and AAA who presents hospital with chief, shortness of breath. This apparently started around [place] time. He came to our emergency room [...] mg daily on September 25 per his gis software developer in [facility]. He recently called and said he is been feeling more shortness of breath and his gis software developer increased him back to 40 mg daily. [...] noted below or in HPI [facility] Medical History (Updated 10/19/24 @ 16:42 by [...] Lasix given today ?He has a primary gis software developer in [place] however they live here locally in [place] and are interested in switching care to [...] signed by Geoff Swann DO> 10/19/24 1647 [facility] Work Phone: History general Narrative - Reported* [...] PLACEMENT 2001 Surgical History BL MENISCUS REPAIRS [id number] Surgical History ABDOMINAL AORTIC ANEURISM 2010 Surgical [...] ORAL SURGERY 04/20/2022 Hospitalization History SEE ABOVE [employer] Other History general Narrative - Reported* Type [...] PLACEMENT 2001 Surgical History BL MENISCUS REPAIRS [id number] Surgical History ABDOMINAL AORTIC ANEURISM 2010 Surgical [...] LEG STENT 01/05/2023 Hospitalization History SEE ABOVE [employer] Other History of Present illness NarrativePatient is [...] place. He believes he might be in [place] or at [facility] also in [facility]. Because of this we will attempt to obtain all these test results and integrate them into our plan of care. I advised him for the time being treatment of his risk factors of hypertension and hyperlipidemia is adequate and because of this we recommend continued therapy as is. The merits of diet and weight loss were discussed.-[facility] DO Work Phone: InstructionsNot on filedocumented in this encounter [facility] ([facility] Consultation (Routine) - Pending Review Specialty Diagnoses / Procedures Referred By Contac t Referred To Contact Pulmonary Disease Diagnoses Pulmonary hypertension (CMS/HCC) Coronary artery disease due to lipid rich plaque (CMS/HCC) Congestive heart failure due to hypertension (CMS/HCC) Procedures RI OFFICE/OUTPATIENT NEW HIGH MDM 60 MINUTES Justin Martinez MD [address] [facility] [address] [place] [address] Shay Muhammad MD [address] [place] [phone] Referral ID Status Reason Start Date Expiration Date Visits Requested Visits Authorized [id number] Pending Review Specialty Services Required 06/04/2024 12/01/2024 1 1 * Consultation (Routine) - Pending Review Specialty Diagnoses / Procedures Referred By Contac t Referred To Contact Sleep Medicine Diagnoses Pulmonary hypertension (CMS/HCC) Coronary artery disease due to lipid rich plaque (CMS/HCC) Congestive heart failure due to hypertension (CMS/HCC) Procedures RI OFFICE/OUTPATIENT NEW HIGH MDM 60 MINUTES Justin Martinez MD [address] [facility] [address] [place] [address] Referral ID Status Reason Start Date Expiration Date Visits Requested Visits Authorized [id number] Pending Review Specialty Services Required 06/04/2024 12/01/2024 [...] Malignant neoplasm of lung Unknown Advance Directives No Advanced Directives Records [...] Atrophic kidney September 16, 2024 1 0:25am Kaed hy kid w 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-IV September [...] 19, 2024 3:29pm Acute hypoxic respiratory failure 2024 3:29pm Chronic respiratory failure with hypoxia [...] Acute hypoxic respiratory failure Januar 2024 3:29pm Chronic respiratory failure with hypoxia [...] Systolic CHF November 20, 2024 1 2:54pm Chief Complaint Admit Date 6 week f/u- [...] per Be cky November 20, 2024 9:46am [email or web address] November 20, 2024 9 :48am Congestive Heart Failure November 20, 2 025 12:54pm Congestive Heart Failure November 20, 2 025 7:13pm Congestive Heart Failure November 21 2 025 8:27am Reason for Visit Admit Date Aortic stenosis September 03, 2024 9:28am CKD (chronic kidney disease) stage 3, GF R 30-59 ml/min September 03, 2024 9:28am Pulmonary hypertension September 03 9:28am Severe obstructive sleep apnea September 03, 2024 9:28am PAD (peripheral artery disease) September 03, 2024 9:28am Nocturnal hypoxia September 03, 2024 9:28am Systolic CHF September [...] 11:03am Pulmonary hypertension October 28 11:03am Acute systolic (congestive) heart failur e November 20, 2024 9:46am Chronic respiratory failure with hypoxia November 20, 2024 9:46am CHRIS (obstructive sleep apnea) November 202024 9:46am Pulmonary hypertension November 20 9:46am Severe obstructive sleep apnea November 20, 2024 9:46am Acute kidney injury November 20, 2024 9 :46am Acute kidney injury superimposed on CKD November 20, 2024 12:54pm Acute systolic (congestive) heart failur e November 20, 2024 12:54pm 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 November 20 12:54pm CAD (coronary artery disease) November 202024 12:54pm Chronic respiratory failure with hypoxia November 20, 2024 12:54pm CKD (chronic kidney disease) stage 3, GF R 30-59 ml/min November 20, 2024 12:54pm Hyperlipidemia November 20, 2024 1 2:54pm Hypokalemia November 20, 2024 1 2:54pm Iron deficiency anemia November 20 12:54pm Nephrolithiasis November 20, 2024 1 2:54pm CHRIS (obstructive sleep apnea) November 202024 12:54pm Pulmonary hypertension November 20 12:54pm Severe obstructive sleep apnea November 20, 2024 12:54pm Severe protein-calorie malnutrition Febr uary 2024 12:54pm Acute kidney injury November 20, 2024 1 2:54pm Systolic CHF November 20, 2024 1 2:54pm Additional Source Comments (unrecognized sect ion and content) No Status Records FoundNo Status Records FoundNo Status Records FoundNo Status Records FoundNo Status Records FoundNo Status Records FoundNo Status Records FoundNo Status Records Found INFORMATION SOURCE (unrecogn ized section and content) DATE CREATED AUTHOR 05/07/2020 [facility] DATE CREATED AUTHOR AUTHOR'S ORGANIZ ATION 10/13/2021 [facility] DATE CREATED AUTHOR AUTHOR'S ORGANIZ ATION 04/14/2022 [facility] DATE CREATED AUTHOR AUTHOR'S ORGANIZ ATION 06/08/2022 [employer] DATE CREATED AUTHOR AUTHOR'S ORGANIZ ATION 08/25/2022 [facility] DATE CREATED AUTHOR AUTHOR'S ORGANIZ ATION 10/27/2024 [facility] EPIC DATE CREATED AUTHOR AUTHOR'S ORGANIZ ATION 11/15/2024 [facility] DATE CREATED AUTHOR AUTHOR'S ORGANIZ ATION 11/26/2024 [facility] REASON FOR VISIT (unrecogniz ed [...] May 12, 2024 End: May 13, 2024 Busperson Relationship Specialty Start Date End Date Justin Martinez MD [address] [address] PCP - ACO Reach 03/09/23 Justin Martinez MD [address] [facility] [address] [place] [address] PCP - General 03/24/23 Busperson Relationship Specialty Start Date End Date Justin Martinez MD [address] [facility] [address] [place] [address] PCP - ACO Reach 03/09/23 Justin Martinez MD [address] [facility] [address] [place] [address] PCP - General 03/24/23 Team Status: Inactive Member Role Status Dates Justin Martinez MD Primary Care Provider Active S tart: September 03, 2024 End: September 03, 2024 Magy Cummings MD Attending Provider Active Start : September 03, 2024 End: September 03, 2024 Mary Hallman MD Other Provider Active Start: September 03, 2024 End: September 03, 2024 Busperson Relationship Specialty Start Date End Date Justin Martinez MD [address] [facility] [address] [place] [address] PCP - ACO Reach 03/09/23 Justin Martinez MD [address] [facility] [address] [place] [address] PCP - General 03/24/23 Busperson Relationship Specialty Start Date End Date Justin Martinez MD [address] [facility] [address] [place] [address] PCP - ACO Reach 03/09/23 Justin Martinez MD [address] [facility] [address] [place] [address] PCP - General 03/24/23 Team Status: Active Member Role Status Dates Mary Hallman MD [employer] Control Equipment Repairer Active Magy Cummings MD Specialist Active Gopal [...] October 28, 2024 End: October 28, 2024 Busperson Relationship Specialty Start Date End Date Justin Martinez MD [address] [facility] [address] [place] [address] PCP - ACO Reach 03/09/23 Justin Martinez MD [address] [facility] [address] [place] [address] PCP - General 03/24/23 Busperson Relationship Specialty Start Date End Date Justin Martinez MD [address] [facility] [address] [place] [address] PCP - ACO Reach 03/09/23 Justin Martinez MD [address] [facility] [address] [place] [address] PCP - General 03/24/23 Team Status: Inactive Member Role Status Cyndee [...] Other Provider Active Start: November 20, 2024 Busperson Relationship Specialty Start Date [place] [address] PCP - General Family Medicine 12/11/19 Team Status: Inactive Member Role Status Dates Justin Martinez MD Primary Care Provider Active S tart: November 20, 2024 End: November 25, 2024 Turner Knott DO Admit Provider Active Start: November 20, 2024 End: November 25, 2024 Kelly Gomez MD Other Provider Active Start: 2024 End: November 25, 2024 Maria E Almendarez RN Other Provider Active Star t: November 20, 2024 End: November 25, 2024 Med Baltazar MD Other Provider Active Start: 2024 End: November 25, 2024 Chase Larkin MD Other Provider Active Start: November 20, 2024 End: November 25, 2024 Odalys Spaulding MD Other Provider Active Start: November 20, 2024 End: November 25, 2024 Prakash Keyes MD Attending Provider Active Start : November 20, 2024 End: November 25, 2024 Team Status: Active Member Role Status Dates Justin Martinez MD Primary Care Provider Active S tart: November 21, 2024 Turner Knott , Admit Provider , Other Provider Active Start: November 21, 2024 Kelly Gomez MD Other Provider Active Start: F ebruary 2024 Maria E Almendarez RN Other Provider Active Star t: November 21, 2024 Med Baltazar MD Other Provider Active Start: F ebruary 2024 Chase Larkin MD Other Provider Active Start: November 21, 2024 Odalys Spaulding MD Other Provider Active Start: November 21, 2024 Magy Cummings MD Attending Provider Active Start : November 21, 2024 Goals (unrecognized section and content) Goals [...] BE BASED ON THE PRIMARY CLINICAL RECORDS. [email or web address] [facility]. provides no warranty or guarantee of the accuracy or completeness of information in this document.
== END 2024-11-12 13:20 | DRG 683 ==
LOC: ER 16:07 → MS 11-12 11:49
PROVIDERS: Internal Medicine; Nurse Practitioner Family; Admitting Provider Internal Medicine; Emergency Provider Emergency Medicine; PCP Family Medicine; Visit Provider Family Medicine
DX: N17.9 Acute kidney failure, unspecified (principal); E87.1 Hypo-osmolality and hyponatremia; J96.11 Chronic respiratory failure with hypoxia; I13.0 Hypertensive heart and chronic kidney disease with heart failure and stage 1 through stage 4 chronic kidney disease, or unspecified chronic kidney disease; I50.20 Unspecified systolic (congestive) heart failure; R53.1 Weakness; R26.81 Unsteadiness on feet; S09.8XXA Other specified injuries of head, initial encounter; W19.XXXA Unspecified fall, initial encounter; R41.0 Disorientation, unspecified; J44.9 Chronic obstructive pulmonary disease, unspecified; Z99.81 Dependence on supplemental oxygen; N18.4 Chronic kidney disease, stage 4 (severe); I25.10 Atherosclerotic heart disease of native coronary artery without angina pectoris; Z95.5 Presence of coronary angioplasty implant and graft; I48.0 Paroxysmal atrial fibrillation; R74.01 Elevation of levels of liver transaminase levels; E86.0 Dehydration; Z79.01 Long term (current) use of anticoagulants; Z79.02 Long term (current) use of antithrombotics/antiplatelets; Z87.891 Personal history of nicotine dependence; Z90.49 Acquired absence of other specified parts of digestive tract; K80.20 Calculus of gallbladder without cholecystitis without obstruction; R79.89 Other specified abnormal findings of blood chemistry; I27.20 Pulmonary hypertension, unspecified; G47.33 Obstructive sleep apnea (adult) (pediatric); I73.9 Peripheral vascular disease, unspecified; Z86.19 Personal history of other infectious and parasitic diseases; E78.00 Pure hypercholesterolemia, unspecified; Z86.73 Personal history of transient ischemic attack (TIA), and cerebral infarction without residual deficits
CPT/HCPCS: 36415; 36600; 51798; 70450; 70551; 71045; 72125; 76705; 80048; 80053; 80074; 80307; 81001; 82140; 82607; 82746; 82805; 82948; 83880; 84436; 84443; 84484; 85025; 93005; 93308; 93356; 94761; 94799; 96372; 97162; 97165; 97530; 97535; 99285; G0378; J3486